=== PATIENT | female | born 1940 | race Caucasian/White ===

== ENCOUNTER → 2016-05-31 | Outpatient (REF) | payer MEDICARE, OTHER ==
[~2016-05-31] MED LIST: ACET-654 PO; ADV100INH INH; ADV500INH INH; ALBU1.25 INH; ALBU17IN INH; ALPH0.156 OU; AMIO20TA PO; ANAS1TAB PO; ASPI1TAB PO; ATROVENT 0.02% INH; ATROVENT NEB INH; BACITAB3 PO; BENA25CA2 PO; BENA25TA4 PO; BIMA01SOL OU; BONI150T PO; BRIM1OPD OU; BUPR15TASR PO; CALCTAB68 PO; CEFT500T3 PO; CELE40TA PO; CIPR250T3 PO; COMB0.2S OU; CORTCRE6 TOP; COUM1TAB17 PO; DILT120C PO; DOXY100C PO; DOXY100T PO; DRIS50002 PO; DULC10SU2 PR; ECOT325T3 PO; FLAG500T PO; FLEEENE4 PR; FLON1SPR; FURO40TA2 PO; HYDR12CA PO; HYDR5OI TOP; INSUH10VL SC; IPRASOL4 INH; JANU100T PO; LASI40TA PO; LEVA250T PO; LEVA500T PO; LISI-542 PO; MAGN400T5 PO; METF500T PO; METO-207 PO; METO100T PO; METO50TA2 PO; MICR10CA PO; MICR12.5 PO; MILKSUS PO; MULTLIQ7 PO; MYCOSTATIN SS; NAPR500T2 PO; NEXI40CA PO; NYST10PW TOP; NYST50SS SSP; OYST500T50 PO; PANT40TA2 PO; PERCOCET PO; PHEN200T22 PO; POTA10CA PO; PRED10TA PO; PRED20TA PO; PRED5TA PO; PROT1TAB2 PO; PROTPAK PO; SPIR1CAP IN; TIMO0.5S4 OU; TIOT18INH INH; TYLE325T5 PO; VENTOLIN NEB INH; WARF-23 PO; XARE15TA PO; XARE20TA PO; ZANTTAB PO; [UNRECOGNIZED DRUG - CODE] OU; [UNRECOGNIZED DRUG - OTHER] OU
[2016-05-31 12:51] LABS: ALBUMIN 3.2 GM/DL (3.2-5.2); ALBUMIN/GLOBULIN RATIO 1.45 (1.00-1.93); BILIRUBIN,TOTAL 0.4 MG/DL (0.2-1.0); CALCIUM LEVEL 9.4 MG/DL (8.8-10.2); CREATININE FOR GFR 1.34 MG/DL (0.55-1.02); GLOMERULAR FILTRATION RATE 41.2 (>39); POTASSIUM SERUM 4.2 MEQ/L (3.5-5.1); TOTAL PROTEIN 5.4 GM/DL (6.4-8.2)
== END ==
LOC: M LABDRAW1 12:01
PROVIDERS: ATTEND Emergency Medicine
DX: E11.9 Type 2 diabetes mellitus without complications (principal); I10 Essential (primary) hypertension; E55.9 Vitamin D deficiency, unspecified

== ENCOUNTER 2016-07-10 10:46 | Emergency (ER) | payer MEDICARE, OTHER ==
[~2016-07-10] VITALS: Ht 152.4 cm; Wt 116.1 kg
--- NOTE | 2016-07-10 11:50 | REP ---
CT HEAD WITHOUT CONTRAST: HISTORY: Trauma. Areas of decreased attenuation are present in the periventricular white matter. This represents small vessel ischemic disease. There is no intraparenchymal hemorrhage, mass, or midline shift. The ventricular system and cortical sulci are dilated consistent with minimal volume loss. There is no extracerebral collection. A 12 mm enostosis is present arising from the inner table of the right frontal bone. There is no fracture. Mucosal thickening is present in the ethmoid and sphenoid sinuses. IMPRESSION: 1. Small vessel ischemic disease. 2. Minimal volume loss. Signed by Luis Pimentel MD 07/10/2016 12:12 P
--- NOTE | 2016-07-10 11:54 | REP ---
Clinical: Trauma. Technique: Frontal view of the chest with multiple views of the left hemithorax. Findings: Frontal view of the chest demonstrates no acute cardiopulmonary process. Multiple views of the left hemithorax demonstrates no obvious acute rib fracture or pathology. Impression: Normal left rib series Signed by Errol Harkins MD 07/10/2016 11:45 A
[2016-07-10 12:31] VITALS: BP 136/77
== END 2016-07-10 12:33 | disposition home or self-care (01) ==
LOC: M ED 11:39
DX: S20.212A Contusion of left front wall of thorax, initial encounter (principal); S80.01XA Contusion of right knee, initial encounter; S00.81XA Abrasion of other part of head, initial encounter; W01.0XXA Fall on same level from slipping, tripping and stumbling without subsequent striking against object, initial encounter; Y92.89 Other specified places as the place of occurrence of the external cause; Y93.01 Activity, walking, marching and hiking; Y99.8 Other external cause status; I10 Essential (primary) hypertension; I48.91 Unspecified atrial fibrillation; Z79.899 Other long term (current) drug therapy; Z79.01 Long term (current) use of anticoagulants; Z79.84 Long term (current) use of oral hypoglycemic drugs; Z79.82 Long term (current) use of aspirin; Z79.51 Long term (current) use of inhaled steroids; Z88.1 Allergy status to other antibiotic agents; Z88.5 Allergy status to narcotic agent; Z88.0 Allergy status to penicillin; Z88.2 Allergy status to sulfonamides; S93.422A Sprain of deltoid ligament of left ankle, initial encounter; S93.602A Unspecified sprain of left foot, initial encounter; M19.072 Primary osteoarthritis, left ankle and foot

== ENCOUNTER → 2016-07-10 | Outpatient (CLI) | payer MEDICARE, OTHER ==
--- NOTE | 2016-07-10 19:49 | REP ---
LEFT FOOT: HISTORY: Pain. COMPARISON: 07/11/2013 There has been previous ORIF, status quo. There are degenerative changes, status quo. The bones are demineralized, status quo. Plantar and retrocalcaneal heel spurs are present, status quo. There is no evidence of an acute fracture. IMPRESSION: Chronic changes. Signed by Guilherme Streeter DO 07/11/2016 03:58 P
--- NOTE | 2016-07-10 19:50 | REP ---
LEFT ANKLE: HISTORY: Pain. COMPARISON: 09/10/2013 There has been previous ankle ORIF, status quo. There are chronic changes seen involving the ankle, status quo. Plantar and retrocalcaneal heel spurs are seen, status quo. There is no evidence of an acute fracture or acute change from the prior exam. IMPRESSION: Stable chronic changes. Signed by Guilherme Streeter DO 07/11/2016 03:58 P
== END ==
LOC: M WUC 18:50
PROVIDERS: ATTEND Physician Assistant
DX: S93.422A Sprain of deltoid ligament of left ankle, initial encounter (principal); S93.602A Unspecified sprain of left foot, initial encounter; M19.072 Primary osteoarthritis, left ankle and foot; X58.XXXA Exposure to other specified factors, initial encounter; Y92.89 Other specified places as the place of occurrence of the external cause; Y93.89 Activity, other specified; Y99.8 Other external cause status

== ENCOUNTER 2016-08-05 00:06 | Emergency (ER) | payer MEDICARE, OTHER ==
[~2016-08-05] VITALS: Ht 154.9 cm; Wt 116.0 kg
[~2016-08-05 00:06] MED LIST changes: -ACET-654 PO; +ACET1TAB17 PO; +AMIO200T PO; -AMIO20TA PO; +BACITAB PO; -BACITAB3 PO; -ECOT325T3 PO; +ECOT325T5 PO; +LEVA1TAB PO; +LEVA1TAB2 PO; -LEVA250T PO; -LEVA500T PO; -METF500T PO; +METF500T13 PO; -METO-207 PO; -METO100T PO; +METO100T5 PO; +METO1TAB7 PO; -METO50TA2 PO; +METO50TA7 PO; -NAPR500T2 PO; +NAPR500T3 PO
[2016-08-05 02:30] VITALS: BP 195/79
[2016-08-05] MEDS ORDERED: DOXY100C37 PO (05:41)
--- NOTE | 2016-08-05 10:03 | REP ---
LEFT ANKLE: Two views of the left ankle are performed. Metallic screws are seen in the distal tibia and there is a metallic plate and multiple metallic screws in the distal fibula. There is no evidence of acute fracture or dislocation. The ankle mortise is anatomic. IMPRESSION: No acute fracture or dislocation. Signed by Ez Campos MD 08/05/2016 08:17 P
--- NOTE | 2016-08-05 10:05 | REP ---
LEFT FOOT: Two views of the left foot are performed. There is no acute fracture or dislocation. Metallic plate and multiple metallic screws are seen bridging the medial cuneiform and base of first metatarsal and there is a metallic screw bridging the base of the second metatarsal and middle cuneiform. There is moderate inferior calcaneal spurring. IMPRESSION: No acute fracture or dislocation. Signed by Ez Campos MD 08/05/2016 08:17 P
== END 2016-08-05 06:00 | disposition home or self-care (01) ==
LOC: EDBD 00:06 → M ED 02:02
DX: S93.402A Sprain of unspecified ligament of left ankle, initial encounter (principal); W19.XXXA Unspecified fall, initial encounter; Y92.009 Unspecified place in unspecified non-institutional (private) residence as the place of occurrence of the external cause; Y93.01 Activity, walking, marching and hiking; Y99.8 Other external cause status; Z91.81 History of falling; N39.0 Urinary tract infection, site not specified; I10 Essential (primary) hypertension; E11.9 Type 2 diabetes mellitus without complications; J44.9 Chronic obstructive pulmonary disease, unspecified; J45.909 Unspecified asthma, uncomplicated; F41.9 Anxiety disorder, unspecified; F32.9 Major depressive disorder, single episode, unspecified; Z86.711 Personal history of pulmonary embolism; Z85.3 Personal history of malignant neoplasm of breast; Z79.899 Other long term (current) drug therapy; Z79.84 Long term (current) use of oral hypoglycemic drugs; Z79.82 Long term (current) use of aspirin; Z88.1 Allergy status to other antibiotic agents; Z88.5 Allergy status to narcotic agent; Z88.0 Allergy status to penicillin; Z88.2 Allergy status to sulfonamides

== ENCOUNTER → 2016-11-20 | Outpatient (CLI) | payer MEDICARE, OTHER ==
[~2016-11-20] MED LIST changes: +DOXY100C37 PO
--- NOTE | 2016-11-20 13:25 | REP ---
PA and lateral chest: Comparisons are 12/08/2015 and 07/10/2016. There is cardiomegaly that appears slightly larger than on the comparison studies. There is diffuse interstitial coarsening that has worsened from the comparison studies. This could represent acute on chronic interstitial change. There are no pleural effusions. The adalid, mediastinum and bony thorax are unchanged. There is an old fracture of the right humeral neck. Impression: Cardiomegaly that has increased from the prior studies. Interstitial coarsening that has increased from the prior studies. These could represent gradually progressive changes or could represent acute on chronic changes. Thoracic scoliosis is again identified. Right humeral fracture is again identified. Signed by Ez Boo MD 11/20/2016 01:17 P
== END ==
LOC: M SMT 12:03
PROVIDERS: ATTEND Internal Medicine Pulmonary Disease
DX: I51.7 Cardiomegaly (principal); M41.24 Other idiopathic scoliosis, thoracic region; J43.1 Panlobular emphysema; Z87.81 Personal history of (healed) traumatic fracture

== ENCOUNTER → 2016-11-27 | Outpatient (CLI) | payer MEDICARE, OTHER ==
[2016-11-27 18:43] LABS: CALCIUM LEVEL 9.3 MG/DL (8.8-10.2); CREATININE FOR GFR 1.41 MG/DL (0.55-1.02); GLOMERULAR FILTRATION RATE 38.8 (>39)
== END ==
LOC: M SMT 15:13
PROVIDERS: ATTEND Internal Medicine Cardiovascular Disease
DX: I48.92 Unspecified atrial flutter (principal); E11.9 Type 2 diabetes mellitus without complications; I10 Essential (primary) hypertension

== ENCOUNTER → 2016-12-31 | Outpatient (CLI) | payer MEDICARE, OTHER ==
[~2016-12-31] MED LIST changes: +ASPI81TA24 PO; +BUPR150T3 PO; +FLUO20CA19 PO; +K-TA1TAB PO; +MAGN400T2 PO; +PROAAER10 INH; +SPIR1CAP INH
[2016-12-31 18:42] LABS: ALBUMIN 3.3 GM/DL (3.2-5.2); ALBUMIN/GLOBULIN RATIO 1.5 (1.00-1.93); BILIRUBIN,TOTAL 0.8 MG/DL (0.2-1.0); CALCIUM LEVEL 9.1 MG/DL (8.8-10.2); CREATININE FOR GFR 1.5 MG/DL (0.55-1.02); POTASSIUM SERUM 4.3 MEQ/L (3.5-5.1); TOTAL PROTEIN 5.5 GM/DL (6.4-8.2)
== END ==
LOC: M SMT 13:03
PROVIDERS: ATTEND Emergency Medicine
DX: E11.9 Type 2 diabetes mellitus without complications (principal); I10 Essential (primary) hypertension

== ENCOUNTER 2017-01-07 17:10 | Inpatient (IN) | payer MEDICARE, OTHER ==
[~2017-01-07] VITALS: Ht 160 cm; Wt 114.0 kg
[~2017-01-07 17:10] MED LIST changes: -ASPI81TA24 PO; -BUPR150T3 PO; -FLUO20CA19 PO; -K-TA1TAB PO; -MAGN400T2 PO; -PROAAER10 INH; -SPIR1CAP INH
[2017-01-07] MEDS ORDERED: IPRATROPIUM 0.5MG/ALBUTEROL 2.5MG INH SOL UD 3ML (DUONEB)(J7620) NEB ONE (18:15)
[2017-01-07] MEDS ORDERED: methylPREDNISolone INJ 125 MG/2 ML VIAL (J2930) IV ONE (18:15)
[2017-01-07 18:34] LABS: BASO % 0.5 % (0.0-1.0); EOS # 0.2 10^3/uL (0.0-0.50); EOS % 2.9 % (0.0-3.0); IMMATURE GRANULOCYTE % 0.5 % (0-0); LYMPH # 0.7 10^3/uL (1.5-4.5); LYMPH % 9.2 % (24.0-44.0); MEAN CORPUSCULAR HEMOGLOBIN 25.3 pg (27.0-33.0); MEAN CORPUSCULAR HGB CONC 29.1 g/dl (32.0-36.5); MEAN CORPUSCULAR VOLUME 86.9 fl (80.0-96.0); MONO # 0.5 10^3/uL (0.0-0.8); MONO % 6.3 % (0.0-5.0); NEUTROPHILS % 80.6 % (36.0-66.0); PLATELET COUNT, AUTOMATED 113 10^3/uL (150-450); RED CELL DISTRIBUTION WIDTH 16.8 % (11.5-14.5); WHITE BLOOD COUNT 7.5 10^3/uL (4.0-10.0)
[2017-01-07 18:49] LABS: ANION GAP 6 MEQ/L (8-16); BLOOD UREA NITROGEN 18 MG/DL (7-18); CARBON DIOXIDE LEVEL 30 MEQ/L (21-32); CHLORIDE LEVEL 106 MEQ/L (98-107); CREATININE FOR GFR 1.15 MG/DL (0.55-1.02); GLUCOSE, FASTING 98 MG/DL (83-110); POTASSIUM SERUM 4.2 MEQ/L (3.5-5.1); SODIUM LEVEL 142 MEQ/L (136-145)
[2017-01-07] MEDS: AMIODARONE 200 MG TAB (PACERONE) PO SCH (21:00)
[2017-01-07] MEDS: buPROPion **XL** TABLET 150MG (WELLBUTRIN XL) PO SCH (21:00)
[2017-01-07] MEDS ORDERED: PILOCARPINE 2% OPHTH 15 ML SOLN OU SCH (21:00)
--- NOTE | 2017-01-07 22:28 | REP ---
Clinical: Shortness of breath. Technique: PA and lateral. Comparison: 11/20/2016. Findings: Indistinct pulmonary vasculature with cephalization, perihilar/lower lobe opacities and small pleural effusions along with cardiomegaly is most compatible with CHF and pulmonary edema. Atelectasis cannot be excluded. No pneumothorax. Skeletal structures are intact. Impression: Moderate pulmonary edema including small pleural effusions. Signed by Errol Harkins MD 01/07/2017 10:19 P
[2017-01-07] MEDS ORDERED: FUROSEMIDE 40 MG/4 ML VIAL (J1940) IV ONE (22:30)
[2017-01-07] MEDS ORDERED: ISOVUE-370 76% 100ML VIAL (Q9967) As Ordered ONE (22:57)
[2017-01-07 22:59] LABS: ABG BASE EXCESS 1.5 (-2.0-2.0); ABG HCO3 26.3 MEQ/L (22.0-26.0); ABG PARTIAL PRESSURE CO2 42.3 mmHg (35.0-45.0); ABG PARTIAL PRESSURE O2 58.7 mmHg (75.0-100.0); ABG STANDARD HCO3 25.6 MEQ/L (22.0-26.0); ABG TOTAL CO2 27.6 MEQ/L (23.0-31.0); ABG pH (ARTERIAL) 7.411 UNITS (7.350-7.450)
--- NOTE | 2017-01-07 23:40 | REPUSA ---
CT angiogram of the chest Clinical statement: Chest pain and shortness of breath. Technique: Multiple axial CT images were obtained from the thoracic inlet through the upper abdomen a fter a bolus administration of nonionic intravenous contrast. Coronal and sagittal reconstructions we re also obtained. No comparison is available. Findings: The pulmonary arteries are well-opacified with contrast, with no intraluminal filling defec ts to suggest embolism. The thoracic aorta is unremarkable. Thyroid gland is within normal limits. Th ere is no thoracic lymphadenopathy. There are small bilateral pleural effusions. There are diffuse bi lateral ground glass infiltrates. Limited imaging of the upper abdomen is unremarkable. There are no suspicious osseous lesions. Impression: 1. No evidence of pulmonary embolism. 2. Small bilateral pleural effusions. Scattered diffuse ground glass infiltrates bilaterally. The fin dings could represent pneumonia or pulmonary edema secondary to congestive heart failure. Follow-up i s recommended as clinically indicated.
[2017-01-07] MEDS ORDERED: NITROGLYCERIN 0.3 MG SUBL TAB SL STA (23:42)
[2017-01-08] MEDS ORDERED: predniSONE 20 MG TAB PO ONE (00:15)
[2017-01-08] MEDS ORDERED: K-TA1TAB PO (01:10)
[2017-01-08] MEDS ORDERED: BUPR150T3 PO (01:10)
[2017-01-08] MEDS ORDERED: SPIR1CAP INH (01:10)
[2017-01-08] MEDS ORDERED: ASPI81TA24 PO (01:10)
[2017-01-08] MEDS ORDERED: PROAAER10 INH (01:10)
[2017-01-08] MEDS ORDERED: FLUO20CA19 PO (01:12)
[2017-01-08] MEDS ORDERED: MAGN400T2 PO (01:12)
[2017-01-08] MEDS: BRIMONIDINE 0.1% OPHTH SOLN 5 ML OU SCH ×2 (01:52→08:36)
[2017-01-08] MEDS: FUROSEMIDE 40 MG/4 ML VIAL (J1940) IV SCH ×5 (04:00→20:00)
[2017-01-08] MEDS: AMIODARONE 200 MG TAB (PACERONE) PO SCH ×2 (08:35→21:43)
[2017-01-08] MEDS: POTASSIUM CHLORIDE 10 MEQ SR TABLET PO SCH (08:36)
[2017-01-08] MEDS: ASPIRIN 81 MG ENTERIC TAB PO SCH (08:36)
[2017-01-08] MEDS: PANTOPRAZOLE 40MG TAB (PROTONIX) PO SCH (08:36)
[2017-01-08] MEDS: MAGNESIUM OXIDE 400 MG TAB (MAG-OX) PO SCH (08:36)
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
[2017-01-08] MEDS: FLUoxetine 20 MG CAP PO SCH (08:49)
[2017-01-08] MEDS ORDERED: ENOXAPARIN 40 MG/0.4 ML SYRINGE (J1650) SC SCH (09:00)
[2017-01-08 09:25] LABS: IMMATURE GRANULOCYTE % 0.7 % (0-0); LYMPH # 0.3 10^3/uL (1.5-4.5); LYMPH % 4.6 % (24.0-44.0); MEAN CORPUSCULAR HEMOGLOBIN 25.9 pg (27.0-33.0); MEAN CORPUSCULAR HGB CONC 29.8 g/dl (32.0-36.5); MEAN CORPUSCULAR VOLUME 86.9 fl (80.0-96.0); MONO # 0.1 10^3/uL (0.0-0.8); MONO % 0.9 % (0.0-5.0); NEUTROPHILS # 6.4 10^3/uL (1.8-7.7); NEUTROPHILS % 93.8 % (36.0-66.0); PLATELET COUNT, AUTOMATED 120 10^3/uL (150-450); RED CELL DISTRIBUTION WIDTH 16.5 % (11.5-14.5); WHITE BLOOD COUNT 6.8 10^3/uL (4.0-10.0)
--- NOTE | 2017-01-08 09:30 | ECGEPIP ---
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
[2017-01-08 09:39] LABS: ALBUMIN/GLOBULIN RATIO 1.07 (1.00-1.93); BILIRUBIN,TOTAL 0.7 MG/DL (0.2-1.0); CALCIUM LEVEL 8.7 MG/DL (8.8-10.2); CREATININE FOR GFR 1.28 MG/DL (0.55-1.02); GLOMERULAR FILTRATION RATE 43.3 (>39); TOTAL PROTEIN 5.8 GM/DL (6.4-8.2)
[2017-01-08] MEDS ORDERED: SLF 3 ML SYR IV PRN (15:00)
[2017-01-08 15:10] VITALS: BP 146/65
[2017-01-08] MEDS ORDERED: GLUCOSE 4 GM CHEW TABLET PO PRN (15:15)
[2017-01-08] MEDS ORDERED: GLUCAGON FOR INJ 1 MG VIAL (J1610) SC PRN (15:15)
[2017-01-08] MEDS ORDERED: DEXTROSE 50% 50 ML SYRINGE IV PRN (15:15)
--- NOTE | 2017-01-08 15:30 | IPNPDOC ---
Text Note Date of Service The patient was seen on 01/08/17. NOTE Subjective: Patient is a 76 year-old female with a PMHx of CHF (ECHO 08/2015; preserved EF, unable to evaluate diastolic function), HTN, Atrial fibrillation ( on Xarelto), Pulmonary HTN, COPD, DM2, Depression / Anxiety, and Vitamin D deficiency who presented to the ER with shortness of breath. Patient was scheduled to have a nuclear stress test in [place]. Upon evaluation , patient was found to be hypoxic on her saturations, and her procedure was canceled. She contacted Dr. Cosby who advised her to come [facility] ER. Upon evaluation in the emergency room, patient was found to have signs of fluid overload and received diuretics. Hospitalist team was contacted for admission. Patient was seen and examined at the bedside. Patient said her breathing is doing better than point arrival in the emergency room. She notes that her lower extremity swelling has had some improvement but not full resolution. She denies any chest pain, palpitations or cough. Denies any fevers or chills. Objective: Vitals (See below) General: Lying in bed, no acute distress, comfortable, AAOx3 HEENT: NC, AT CVS: Bradycardic, Irregular, +S1S2 Lungs: Fair air entry b/l, mild crackles bilaterally Abdomen: Soft, ND, NT, Obese Extremities: 2+ pitting edema bilaterally, - Calf tenderness Assessment and plan: Dyspnea - likely 2/2 Acute decompensated CHF (possibly diastolic); possibly component of acute COPD exacerbation; possibly symptomatic bradycardia - Presented to the ER with complaints of difficulty breathing, was found to be hypoxic as an outpatient - Physical with signs of fluid overload, crackles at bilateral lung bases and lower extremity edema - Elevated BNP on admission - CT chest with IV contrast 01/07: No evidence of pulmonary embolism and examined consistent with congestive heart failure - c/w strict ins and outs, daily weights, head of bed elevation - c/w furosemide 40 IV every 4 hours for a net negative output of 1500 mL - c/w Solu-Medrol 40 mg every 12 hours - c/w inhaled therapy - Will discontinue glaucoma medications given that they may be causing bradycardia - We will continue to monitor on telemetry setting Outpatient cardiac cath - Was unable to be performed because of patient's hypoxia - Denied any chest pain - Troponins 2 sets have been negative - Will follow for 1 additional set Atrial fibrillation - Patient is rate controlled, although slightly bradycardic she remains asymptomatic - Continue with amiodarone - Will restart anticoagulation with Xarelto (re: hemoglobin appears to be stable ) Normocytic anemia - Hg baseline of about 12-11; Hg on admission of 9.7 - Appears to be stable over 12 hours - We'll check for occult blood in stool Thrombocytopenia - No evidence of gross bleeding - Appears to be stable - We'll continue to monitor Acute kidney injury, possibly chronic kidney disease - Will closely monitor urine output - Avoid nephrotoxic medications - Given current clinical setting, will have to continue with diuresis Depression/Anxiety - Continue bupropion and fluoxetine HTN - Currently not on any medications DM2 - Will start insulin sliding scale Vitamin D deficiency - Continue supplementation Glaucoma - Continue home medications GI prophylaxis - c/w Protonix DVT prophylaxis - c/w full anticoagulation with Xarelto VS,Fishbone, I+O VS, Fishbone, I+O Laboratory Tests 01/07/17 17:53 Red Blood Count 3.83 L, Mean Corpuscular Volume 86.9, Mean Corpuscular Hemoglobin 25.3 L, Mean Corpuscular Hemoglobin Concent 29.1 L, Red Cell Distribution Width 16.8 H, Neutrophils (%) (Auto) 80.6 H, Lymphocytes (%) (Auto ) 9.2 L, Monocytes (%) (Auto) 6.3 H, Eosinophils (%) (Auto) 2.9, Basophils (%) ( Auto) 0.5, Neutrophils # (Auto) 6.0, Lymphocytes # (Auto) 0.7 L, Monocytes # ( Auto) 0.5, Eosinophils # (Auto) 0.2, Basophils # (Auto) 0.0, Calcium Level 9.0, Total Creatine Kinase 26 01/08/17 08:40 Calcium Level 8.7 L, Aspartate Amino Transf (AST/SGOT) 8, Alanine Aminotransferase (ALT/SGPT) 14, Alkaline Phosphatase 52, Total Bilirubin 0.7, Total Protein 5.8 L, Albumin 3.0 L 01/08/17 09:07 Red Blood Count 3.67 L, Mean Corpuscular Volume 86.9, Mean Corpuscular Hemoglobin 25.9 L, Mean Corpuscular Hemoglobin Concent 29.8 L, Red Cell Distribution Width 16.5 H, Neutrophils (%) (Auto) 93.8 H, Lymphocytes (%) (Auto ) 4.6 L, Monocytes (%) (Auto) 0.9, Eosinophils (%) (Auto) 0.0, Basophils (%) ( Auto) 0.0, Neutrophils # (Auto) 6.4, Lymphocytes # (Auto) 0.3 L, Monocytes # ( Auto) 0.1, Eosinophils # (Auto) 0.0, Basophils # (Auto) 0.0 Vital Signs Date Time Temp Pulse Resp B/P (MAP) Pulse Ox O2 Delivery O2 Flow Rate FiO2 01/08/17 14:26 97.8 54 18 129/56 (80) 98 Nasal Cannula 1.0 I&O- Last 24 Hours up to 6 AM 01/09/17 06:00 Intake Total 360 ml Output Total 5400 ml Balance -5040 ml ADEN NATARAJAN MD Jan 08, 2017 15:00
[2017-01-08] MEDS: methylPREDNISolone INJ 125 MG/2 ML VIAL (J2930) IV SCH (15:51)
[2017-01-08 16:00] VITALS: BP 110/54
[2017-01-08] MEDS: RIVAROXABAN 15 MG TAB (XARELTO) PO SCH (17:47)
[2017-01-08] MEDS: HumaLOG INSULIN (NovoLOG) PER UNIT SC SCH ×2 (17:47→20:54)
[2017-01-08 20:00] VITALS: BP 96/54
[2017-01-08] MEDS: SLF 3 ML SYR IV SCH (21:43)
[2017-01-08] MEDS: buPROPion **XL** TABLET 150MG (WELLBUTRIN XL) PO SCH (21:43)
[2017-01-08 23:59] VITALS: BP 150/66
[2017-01-09] MEDS: methylPREDNISolone INJ 125 MG/2 ML VIAL (J2930) IV SCH ×2 (03:39→16:06)
[2017-01-09] MEDS: FUROSEMIDE 40 MG/4 ML VIAL (J1940) IV SCH ×2 (03:39)
[2017-01-09 04:00] VITALS: BP 149/80
[2017-01-09 05:48] LABS: IMMATURE GRANULOCYTE % 0.6 % (0-0); LYMPH # 0.4 10^3/uL (1.5-4.5); LYMPH % 3.5 % (24.0-44.0); MEAN CORPUSCULAR HEMOGLOBIN 25.7 pg (27.0-33.0); MEAN CORPUSCULAR HGB CONC 29.9 g/dl (32.0-36.5); MONO # 0.3 10^3/uL (0.0-0.8); MONO % 2.7 % (0.0-5.0); NEUTROPHILS # 11.1 10^3/uL (1.8-7.7); NEUTROPHILS % 93.2 % (36.0-66.0); PLATELET COUNT, AUTOMATED 138 10^3/uL (150-450); RED CELL DISTRIBUTION WIDTH 16.5 % (11.5-14.5)
[2017-01-09 05:55] LABS: ALBUMIN 3.1 GM/DL (3.2-5.2); ALBUMIN/GLOBULIN RATIO 1.15 (1.00-1.93); BILIRUBIN,TOTAL 0.7 MG/DL (0.2-1.0); CALCIUM LEVEL 8.9 MG/DL (8.8-10.2); CREATININE FOR GFR 1.5 MG/DL (0.55-1.02); MAGNESIUM LEVEL 2.1 MG/DL (1.8-2.4); TOTAL PROTEIN 5.8 GM/DL (6.4-8.2)
[2017-01-09] MEDS: SLF 3 ML SYR IV SCH ×3 (05:55→21:34)
[2017-01-09] MEDS: MAGNESIUM OXIDE 400 MG TAB (MAG-OX) PO SCH (07:44)
[2017-01-09] MEDS: PANTOPRAZOLE 40MG TAB (PROTONIX) PO SCH (07:45)
[2017-01-09] MEDS: POTASSIUM CHLORIDE 10 MEQ SR TABLET PO SCH (07:45)
[2017-01-09] MEDS: ASPIRIN 81 MG ENTERIC TAB PO SCH (07:46)
[2017-01-09] MEDS: FLUoxetine 20 MG CAP PO SCH (07:46)
[2017-01-09] MEDS: HumaLOG INSULIN (NovoLOG) PER UNIT SC SCH ×4 (07:47→21:00)
[2017-01-09] MEDS: AMIODARONE 200 MG TAB (PACERONE) PO SCH (07:47)
[2017-01-09 08:00] VITALS: BP 130/63
[2017-01-09] MEDS ORDERED: RIVAROXABAN 20 MG TAB (XARELTO) PO SCH (09:00)
--- NOTE | 2017-01-09 10:29 | ECHO ---
DATE OF PROCEDURE: 01/08/2017 DATE OF : 1940 AGE: 76 REFERRING PROVIDER: Dr. Junior Puentes PATIENT LOCATION: Room 3222 REASON FOR THE ECHOCARDIOGRAM: Congestive heart failure, unspecified. 2D MEASUREMENTS: IVS: 1.0 cm LV: 5.5 cm LVPW: 1.0 cm LA: 4.1 cm Aorta: 3.5 cm IVC: 2.3 cm DOPPLER MEASUREMENTS: Peak velocity across the aortic valve: 1.5 m/s Peak velocity across the LVOT: 1.1 m/s Mitral E: 1.2, Mitral A: 0.77 with a ratio of 1.5 Maximum tricuspid valve velocity: 3.8 m/s Normal left ventricular size, wall thickness and a normal global left ventricular systolic function. The estimated left ventricular systolic ejection fraction is 65-70%. Mildly enlarged left atrium. The right atrium and the right ventricle appear to be mildly enlarged. The right ventricular free wall might be mildly hypokinetic. The atrial septum appeared to be normal without evidence of defect or shunt. Normal aortic root. Trace pericardial effusion noted, no evidence of cardiac tamponade. Mildly calcified aortic valve with normal leaflet excursion. Mildly calcified mitral annulus with normal anterior mitral valve leaflet motion. Normal tricuspid valve The pulmonic valve and proximal pulmonary artery branches were not well visualized. The inferior vena cava was mildly enlarged, central venous pressure might be elevated. DOPPLER: It detects mild mitral regurgitation and mild to moderate tricuspid regurgitation. The calculated pulmonary artery systolic pressure is between 65-75 mmHg. Assessment of the left ventricular diastolic function appeared to be normal. IMPRESSION: 1. Normal global left ventricular systolic function. Left ventricular diastolic function appeared to be normal. 2. Aortic valve sclerosis without stenosis or aortic regurgitation. 3. Mitral annulus calcification with mild mitral regurgitation and mildly enlarged left atrium. 4. Mild to moderate tricuspid regurgitation with severe pulmonary hypertension and dilated right heart chambers. There may be mild right ventricular systolic dysfunction. 5. Trace pericardial effusion, no evidence of cardiac tamponade.
[2017-01-09 12:10] VITALS: BP 131/62
--- NOTE | 2017-01-09 15:13 | IPNPDOC ---
Text Note Date of Service The patient was seen on 01/09/17. NOTE Subjective: Patient is a 76 year-old female with a PMHx of CHF (ECHO 08/2015; preserved EF, unable to evaluate diastolic function), HTN, Atrial fibrillation ( on Xarelto), Pulmonary HTN, COPD, DM2, Depression / Anxiety, and Vitamin D deficiency who presented to the ER with shortness of breath. Patient was scheduled to have a nuclear stress test in [place]. Upon evaluation , patient was found to be hypoxic on her saturations, and her procedure was canceled. She contacted Dr. Cosby who advised her to come [facility] ER. Upon evaluation in the emergency room, patient was found to have signs of fluid overload and received diuretics. Hospitalist team was contacted for admission. Patient was seen and examined at the bedside. Patient has noted improvement in her lower extremity swelling has noted improvement in her breathing with that the apartment. From of the oxygen. She denies any chest pain, palpitations, or cough. Objective: Vitals (See below) General: Lying in bed, no acute distress, comfortable, AAOx3 HEENT: NC, AT CVS: Bradycardic, Irregular, +S1S2 Lungs: Fair air entry b/l, no significant crackles at bilateral lung bases could be appreciated Abdomen: Soft, ND, NT, Obese Extremities: Trace pitting edema bilaterally, - Calf tenderness Assessment and plan: Dyspnea - likely 2/2 Acute decompensated CHF (possibly diastolic); possibly component of acute COPD exacerbation; possibly symptomatic bradycardia - Presented to the ER with complaints of difficulty breathing, was found to be hypoxic as an outpatient - Physical shows that her fluid status appears to be euvolemic; no extremity edema has improved significantly - Elevated BNP on admission - CT chest with IV contrast 01/07: No evidence of pulmonary embolism and examined consistent with congestive heart failure - c/w strict ins and outs, daily weights, head of bed elevation - Discontinue furosemide - c/w Solu-Medrol 40 mg every 12 hours; will plan to start prednisone tomorrow - c/w inhaled therapy - s/p glaucoma medications; however, no improvement in her baseline heart rate has been noted - We will continue to monitor on telemetry setting - Will discuss findings with Dr. Cosby Outpatient cardiac cath - Was unable to be performed because of patient's hypoxia - Denied any chest pain - Troponins 2 sets have been negative Atrial fibrillation - Patient is rate controlled, still remains bradycardic, still remains asymptomatic - c/w rate / rhythm control with amiodarone - c/w anticoagulation with Xarelto (re: hemoglobin appears to be stable) Normocytic anemia - Hg baseline of about 12-11; Hg on admission of 9.7 - Hemoglobin remained stable - Occult blood in stool - pending Thrombocytopenia - No evidence of gross bleeding - Appears to be stable - Will continue to monitor Leukocytosis - likely 2/2 reactive etiology - 2/2 corticosteroids - Review of systems negative - Remains afebrile - Will continue to hold off on antibiotics Acute kidney injury, possibly chronic kidney disease - Elevation in creatinine likely secondary to diuretics - Avoid nephrotoxic medications - Will discontinue furosemide at this time - Continue to monitor renal function Depression/Anxiety - Continue bupropion and fluoxetine HTN - Currently not on any medications DM2 - c/w insulin sliding scale Vitamin D deficiency - Continue supplementation Glaucoma - Continue home medications GI prophylaxis - c/w Protonix DVT prophylaxis - On for anticoagulation with Xarelto VS,Fishbone, I+O VS, Fishbone, I+O Laboratory Tests 01/09/17 05:30 Red Blood Count 3.50 L, Mean Corpuscular Volume 86.0, Mean Corpuscular Hemoglobin 25.7 L, Mean Corpuscular Hemoglobin Concent 29.9 L, Red Cell Distribution Width 16.5 H, Neutrophils (%) (Auto) 93.2 H, Lymphocytes (%) (Auto ) 3.5 L, Monocytes (%) (Auto) 2.7, Eosinophils (%) (Auto) 0.0, Basophils (%) ( Auto) 0.0, Neutrophils # (Auto) 11.1 H, Lymphocytes # (Auto) 0.4 L, Monocytes # (Auto) 0.3, Eosinophils # (Auto) 0.0, Basophils # (Auto) 0.0, Calcium Level 8.9 , Aspartate Amino Transf (AST/SGOT) 6 L, Alanine Aminotransferase (ALT/SGPT) 13 , Alkaline Phosphatase 55, Total Bilirubin 0.7, Total Protein 5.8 L, Albumin 3.1 L Vital Signs Date Time Temp Pulse Resp B/P (MAP) Pulse Ox O2 Delivery O2 Flow Rate FiO2 01/09/17 12:20 Room Air 01/09/17 12:10 98.6 57 20 131/62 (85 92 01/09/17 04:00 1.0 I&O- Last 24 Hours up to 6 AM 01/10/17 06:00 Intake Total 120 ml Output Total 500 ml Balance -380 ml ADEN NATARAJAN MD Jan 09, 2017 15:13
[2017-01-09 16:00] VITALS: BP 158/68
[2017-01-09] MEDS: RIVAROXABAN 15 MG TAB (XARELTO) PO SCH (17:06)
[2017-01-09 20:15] VITALS: BP 138/63
[2017-01-09] MEDS: buPROPion **XL** TABLET 150MG (WELLBUTRIN XL) PO SCH (21:34)
[2017-01-09 23:45] VITALS: BP 138/63
[2017-01-10 03:40] VITALS: BP 133/61
[2017-01-10] MEDS: methylPREDNISolone INJ 125 MG/2 ML VIAL (J2930) IV SCH (03:46)
[2017-01-10] MEDS: SLF 3 ML SYR IV SCH ×3 (03:50→21:41)
[2017-01-10 05:26] LABS: BASO % 0.1 % (0.0-1.0); IMMATURE GRANULOCYTE % 1.5 % (0-0); LYMPH # 0.7 10^3/uL (1.5-4.5); LYMPH % 4.6 % (24.0-44.0); MEAN CORPUSCULAR HEMOGLOBIN 25.6 pg (27.0-33.0); MEAN CORPUSCULAR HGB CONC 29.9 g/dl (32.0-36.5); MEAN CORPUSCULAR VOLUME 85.6 fl (80.0-96.0); MONO # 0.5 10^3/uL (0.0-0.8); MONO % 2.9 % (0.0-5.0); NEUTROPHILS # 14.5 10^3/uL (1.8-7.7); NEUTROPHILS % 90.9 % (36.0-66.0); PLATELET COUNT, AUTOMATED 175 10^3/uL (150-450); RED CELL DISTRIBUTION WIDTH 16.5 % (11.5-14.5)
[2017-01-10 05:49] LABS: ALBUMIN 3.1 GM/DL (3.2-5.2); ALBUMIN/GLOBULIN RATIO 1.19 (1.00-1.93); BILIRUBIN,TOTAL 0.6 MG/DL (0.2-1.0); CALCIUM LEVEL 8.8 MG/DL (8.8-10.2); CREATININE FOR GFR 1.58 MG/DL (0.55-1.02); GLOMERULAR FILTRATION RATE 33.9 (>39); MAGNESIUM LEVEL 2.1 MG/DL (1.8-2.4); POTASSIUM SERUM 4.1 MEQ/L (3.5-5.1); TOTAL PROTEIN 5.7 GM/DL (6.4-8.2)
--- NOTE | 2017-01-10 05:55 | ECGEPIP ---
Stationary ECG Study [facility] - ED Test Date: 2017-01-07 Pat Name: MYAH DEAL Department: Room: [place] [address] Gender: F Copper Plater: alayna : 1940 Requested By: LARS Chan Order Number: [id number] Reading MD: Doug Julien Measurements Intervals [place] Rate: 57 P: SD: 0 QRS: 58 QRSD: 114 T: 120 QT: 473 QTc: 463 Interpretive Statements SINUS BRADYCARDIA WITH PACs MODERATE INTRAVENTRICULAR CONDUCTION DELAY NONSPECIFIC ST & T-WAVE ABNORMALITY SIMILAR TO PRIOR ON SAME DATE Electronically Signed On 01-10-2017 5:54:50 EST by Doug Julien
[2017-01-10 08:00] VITALS: BP 141/82
[2017-01-10] MEDS: MAGNESIUM OXIDE 400 MG TAB (MAG-OX) PO SCH (08:26)
[2017-01-10] MEDS: POTASSIUM CHLORIDE 10 MEQ SR TABLET PO SCH (08:26)
[2017-01-10] MEDS: HumaLOG INSULIN (NovoLOG) PER UNIT SC SCH ×4 (08:26→21:00)
[2017-01-10] MEDS: AMIODARONE 200 MG TAB (PACERONE) PO SCH (08:26)
[2017-01-10] MEDS: VITAMIN D 50,000 UNITS CAPSULE (ERGOCALCIFEROL 1.25MG) PO SCH (08:27)
[2017-01-10] MEDS: PANTOPRAZOLE 40MG TAB (PROTONIX) PO SCH (08:27)
[2017-01-10] MEDS: ASPIRIN 81 MG ENTERIC TAB PO SCH (08:27)
[2017-01-10] MEDS: FLUoxetine 20 MG CAP PO SCH (08:27)
--- NOTE | 2017-01-10 11:08 | IPNPDOC ---
Text Note Date of Service The patient was seen on 01/10/17. NOTE Subjective: Patient is a 76 year-old female with a PMHx of CHF (ECHO 08/2015; preserved EF, unable to evaluate diastolic function), HTN, Atrial fibrillation ( on Xarelto), Pulmonary HTN, COPD, DM2, Depression / Anxiety, and Vitamin D deficiency who presented to the ER with shortness of breath. Patient was scheduled to have a nuclear stress test in [place]. Upon evaluation , patient was found to be hypoxic on her saturations, and her procedure was canceled. She contacted Dr. Cosby who advised her to come [facility] ER. Upon evaluation in the emergency room, patient was found to have signs of fluid overload and received diuretics. Hospitalist team was contacted for admission. Patient was seen and examined at the bedside. Patient denies any new complaints this morning. Denies any events overnight. Notes that her lower extremity swelling has improved. She is no longer requiring any supplemental oxygen. Still notes that she expenses shortness of breath with exertion. Objective: Vitals (See below) General: Lying in bed, no acute distress, comfortable, AAOx3 HEENT: NC, AT CVS: Bradycardic, Irregular, +S1S2 Lungs: Fair air entry b/l, no crackles noted Abdomen: Soft, ND, NT, Obese Extremities: Trace pitting edema bilaterally, - Calf tenderness Assessment and plan: Dyspnea - likely 2/2 Acute decompensated CHF (possibly diastolic); possibly component of acute COPD exacerbation; possibly symptomatic bradycardia - Initially presented to the ER with signs of fluid overload and requirement for supplemental oxygen, physical shows improvement - Elevated BNP on admission consistent with fluid overload - CT chest with IV contrast 01/07: No evidence of pulmonary embolism and examined consistent with congestive heart failure - c/w strict ins and outs, daily weights, head of bed elevation - Will start prednisone 40 BID today ; s/p c/w Solu-Medrol 40 mg every 12 hours - Will continue to hold furosemide - c/w inhaled therapy Bradycardia - possibly 2/2 medications 2/2 amiodarone - We will continue to monitor on telemetry setting - Amiodarone dose has been reduced - Has been discussed with Dr. Cosby, her primary facetor Outpatient cardiac cath - Was unable to be performed because of patient's hypoxia - Denied any chest pain - Troponins 2 sets have been negative Atrial fibrillation - Patient is rate controlled, still remains bradycardic, still remains asymptomatic - c/w rate / rhythm control with amiodarone (adjusted dose) - c/w anticoagulation with Xarelto Normocytic anemia - Hg baseline of about 12-11; Hg on admission of 9.7 - Hemoglobin remained stable - Occult blood in stool - pending Thrombocytopenia - No evidence of gross bleeding - Appears to be stable - Will continue to monitor Leukocytosis - likely 2/2 reactive etiology - 2/2 corticosteroids - Review of systems negative - Remains afebrile - Will continue to hold off on antibiotics - Will taper corticosteroids Acute kidney injury, possibly chronic kidney disease - Elevation in creatinine likely secondary to diuretics - Avoid nephrotoxic medications - Will continue to hold furosemide - Continue to monitor renal function Depression/Anxiety - Continue bupropion and fluoxetine HTN - Currently not on any medications DM2 - c/w insulin sliding scale Vitamin D deficiency - Continue supplementation Glaucoma - Continue home medications GI prophylaxis - c/w Protonix DVT prophylaxis - On for anticoagulation with Xarelto VS,Fishbone, I+O VS, Fishbone, I+O Laboratory Tests 01/10/17 04:51 Red Blood Count 3.55 L, Mean Corpuscular Volume 85.6, Mean Corpuscular Hemoglobin 25.6 L, Mean Corpuscular Hemoglobin Concent 29.9 L, Red Cell Distribution Width 16.5 H, Neutrophils (%) (Auto) 90.9 H, Lymphocytes (%) (Auto ) 4.6 L, Monocytes (%) (Auto) 2.9, Eosinophils (%) (Auto) 0.0, Basophils (%) ( Auto) 0.1, Neutrophils # (Auto) 14.5 H, Lymphocytes # (Auto) 0.7 L, Monocytes # (Auto) 0.5, Eosinophils # (Auto) 0.0, Basophils # (Auto) 0.0, Calcium Level 8.8 , Aspartate Amino Transf (AST/SGOT) 9, Alanine Aminotransferase (ALT/SGPT) 17, Alkaline Phosphatase 53, Total Bilirubin 0.6, Total Protein 5.7 L, Albumin 3.1 L Vital Signs Date Time Temp Pulse Resp B/P (MAP) Pulse Ox O2 Delivery O2 Flow Rate FiO2 01/10/17 08:26 Room Air 01/10/17 08:00 97.1 54 19 141/82 (101) 93 01/09/17 04:00 1.0 ADEN NATARAJAN MD Jan 10, 2017 11:08
[2017-01-10 12:00] VITALS: BP 151/67
[2017-01-10] MEDS: predniSONE 20 MG TAB PO SCH ×2 (12:53→21:32)
[2017-01-10] MEDS: BRIMONIDINE 0.1% OPHTH SOLN 5 ML OU SCH ×3 (12:54→21:38)
[2017-01-10] MEDS: PILOCARPINE 1% OPHTH SOLN 15 ML OU SCH ×3 (12:54→21:38)
[2017-01-10 16:00] VITALS: BP 145/60
[2017-01-10] MEDS: RIVAROXABAN 15 MG TAB (XARELTO) PO SCH (18:19)
[2017-01-10 20:00] VITALS: BP 150/61
[2017-01-10] MEDS: buPROPion **XL** TABLET 150MG (WELLBUTRIN XL) PO SCH (21:32)
[2017-01-11] VITALS (7 sets, daily range): BP systolic 142–177; BP diastolic 48–75
[2017-01-11 05:25] LABS: BASO % 0.1 % (0.0-1.0); IMMATURE GRANULOCYTE % 2.4 % (0-0); LYMPH # 0.6 10^3/uL (1.5-4.5); LYMPH % 4.3 % (24.0-44.0); MEAN CORPUSCULAR HEMOGLOBIN 25.2 pg (27.0-33.0); MEAN CORPUSCULAR HGB CONC 29.6 g/dl (32.0-36.5); MEAN CORPUSCULAR VOLUME 85.2 fl (80.0-96.0); MONO # 0.3 10^3/uL (0.0-0.8); MONO % 2.2 % (0.0-5.0); NEUTROPHILS # 12.6 10^3/uL (1.8-7.7); PLATELET COUNT, AUTOMATED 184 10^3/uL (150-450); RED CELL DISTRIBUTION WIDTH 16.4 % (11.5-14.5); WHITE BLOOD COUNT 13.9 10^3/uL (4.0-10.0)
[2017-01-11 05:43] LABS: ALBUMIN 3.2 GM/DL (3.2-5.2); ALBUMIN/GLOBULIN RATIO 1.23 (1.00-1.93); BILIRUBIN,TOTAL 0.6 MG/DL (0.2-1.0); CALCIUM LEVEL 8.7 MG/DL (8.8-10.2); CREATININE FOR GFR 1.24 MG/DL (0.55-1.02); GLOMERULAR FILTRATION RATE 44.9 (>39); MAGNESIUM LEVEL 2.2 MG/DL (1.8-2.4); POTASSIUM SERUM 4.2 MEQ/L (3.5-5.1); TOTAL PROTEIN 5.8 GM/DL (6.4-8.2)
[2017-01-11] MEDS: SLF 3 ML SYR IV SCH ×3 (06:00→22:00)
[2017-01-11] MEDS: HumaLOG INSULIN (NovoLOG) PER UNIT SC SCH ×4 (07:30→21:00)
[2017-01-11] MEDS: predniSONE 20 MG TAB PO SCH (08:33)
[2017-01-11] MEDS: POTASSIUM CHLORIDE 10 MEQ SR TABLET PO SCH (08:33)
[2017-01-11] MEDS: PANTOPRAZOLE 40MG TAB (PROTONIX) PO SCH (08:34)
[2017-01-11] MEDS: ASPIRIN 81 MG ENTERIC TAB PO SCH (08:34)
[2017-01-11] MEDS: AMIODARONE 200 MG TAB (PACERONE) PO SCH (08:34)
[2017-01-11] MEDS: MAGNESIUM OXIDE 400 MG TAB (MAG-OX) PO SCH (08:34)
[2017-01-11] MEDS: FLUoxetine 20 MG CAP PO SCH (08:34)
[2017-01-11] MEDS: PILOCARPINE 1% OPHTH SOLN 15 ML OU SCH ×3 (08:34→22:00)
[2017-01-11] MEDS: BRIMONIDINE 0.1% OPHTH SOLN 5 ML OU SCH ×3 (08:34→22:00)
--- NOTE | 2017-01-11 11:14 | IPNPDOC ---
Text Note Date of Service The patient was seen on 01/11/17. NOTE Subjective: Patient is a 76 year-old female with a PMHx of CHF (ECHO 08/2015; preserved EF, unable to evaluate diastolic function), HTN, Atrial fibrillation ( on Xarelto), Pulmonary HTN, COPD, DM2, Depression / Anxiety, and Vitamin D deficiency who presented to the ER with shortness of breath. Patient was scheduled to have a nuclear stress test in [place]. Upon evaluation , patient was found to be hypoxic on her saturations, and her procedure was canceled. She contacted Dr. Cosby who advised her to come [facility] ER. Upon evaluation in the emergency room, patient was found to have signs of fluid overload and received diuretics. Hospitalist team was contacted for admission. Patient was seen and examined at the bedside. She does not report any events overnight. Has been feeling better from the point of arrival. She denies any SOB , palpitations or chest pain currently. Objective: Vitals (See below) General: Lying in bed, no acute distress, comfortable, AAOx3 HEENT: NC, AT CVS: Bradycardic, Irregular, +S1S2 Lungs: Fair air entry b/l, no crackles noted Abdomen: Soft, ND, NT, Obese Extremities: Trace pitting edema bilaterally, - Calf tenderness Assessment and plan: s/p Dyspnea - likely 2/2 Acute decompensated CHF (possibly diastolic); possibly component of acute COPD exacerbation; possibly symptomatic bradycardia - Signs of fluid overload have resolved - Elevated BNP on admission consistent with fluid overload - CT chest with IV contrast 01/07: No evidence of pulmonary embolism and examined consistent with congestive heart failure - c/w strict ins and outs, daily weights, head of bed elevation - c/w prednisone 40 BID - will begin to taper dose tomorrow; s/p Solumedrol - Will continue to hold Furosemide - appears Euvolemic - c/w inhaled therapy Bradycardia - possibly 2/2 medications 2/2 amiodarone - Remains asymptomatic at baseline - c/w telemetry monitoring - c/w Adjust dose of Amiodarone - Has been discussed with Dr. Cosby, her primary manager support services - Will start physical therapy to evaluate for dyspnea with exertion Outpatient cardiac cath - Was unable to be performed because of patient's hypoxia - Denied any chest pain - Troponins 2 sets have been negative Atrial fibrillation - Patient is rate controlled, still remains bradycardic, still remains asymptomatic - c/w rate / rhythm control with amiodarone (adjusted dose) - c/w anticoagulation with Xarelto Normocytic anemia - Hg baseline of about 12-11; Hg on admission of 9.7 - Hemoglobin remained stable - Occult blood in stool - pending Thrombocytopenia - No evidence of gross bleeding - Appears to be stable - Will continue to monitor Leukocytosis - likely 2/2 reactive etiology - 2/2 corticosteroids - Review of systems negative - Remains afebrile - Will continue to hold off on antibiotics - Will taper corticosteroids Acute kidney injury, possibly chronic kidney disease - Elevation in creatinine likely secondary to diuretics - Avoid nephrotoxic medications - Will continue to hold furosemide - Continue to monitor renal function Depression/Anxiety - Continue bupropion and fluoxetine HTN - BP elevated this morning - Will start imdur low dose; and adjust as required DM2 - c/w insulin sliding scale Vitamin D deficiency - c/w supplementation Glaucoma - c/w home medications GI prophylaxis - c/w Protonix DVT prophylaxis - On for anticoagulation with Xarelto VS,Fishbone, I+O VS, Fishbone, I+O Laboratory Tests 01/11/17 04:55 Red Blood Count 3.85 L, Mean Corpuscular Volume 85.2, Mean Corpuscular Hemoglobin 25.2 L, Mean Corpuscular Hemoglobin Concent 29.6 L, Red Cell Distribution Width 16.4 H, Neutrophils (%) (Auto) 91.0 H, Lymphocytes (%) (Auto ) 4.3 L, Monocytes (%) (Auto) 2.2, Eosinophils (%) (Auto) 0.0, Basophils (%) ( Auto) 0.1, Neutrophils # (Auto) 12.6 H, Lymphocytes # (Auto) 0.6 L, Monocytes # (Auto) 0.3, Eosinophils # (Auto) 0.0, Basophils # (Auto) 0.0, Calcium Level 8.7 L, Aspartate Amino Transf (AST/SGOT) 9, Alanine Aminotransferase (ALT/SGPT) 22, Alkaline Phosphatase 46, Total Bilirubin 0.6, Total Protein 5.8 L, Albumin 3.2 Vital Signs Date Time Temp Pulse Resp B/P (MAP) Pulse Ox O2 Delivery O2 Flow Rate FiO2 01/11/17 09:00 160/75 (103) 01/11/17 08:00 Room Air 01/11/17 08:00 96.9 51 20 92 01/09/17 04:00 1.0 I&O- Last 24 Hours up to 6 AM 01/12/17 06:00 Intake Total 240 ml Balance 240 ml ADEN NATARAJAN MD Jan 11, 2017 11:14
[2017-01-11] MEDS: ISOSORBIDE MON. (IMDUR) 30 MG XR TAB PO SCH (12:06)
[2017-01-11] MEDS: RIVAROXABAN 15 MG TAB (XARELTO) PO SCH (17:12)
[2017-01-11] MEDS ORDERED: predniSONE 10 MG TAB PO SCH (21:00)
[2017-01-11] MEDS: buPROPion **XL** TABLET 150MG (WELLBUTRIN XL) PO SCH (21:58)
[2017-01-12] VITALS (7 sets, daily range): BP systolic 121–158; BP diastolic 58–80
[2017-01-12 05:40] LABS: BASO % 0.1 % (0.0-1.0); IMMATURE GRANULOCYTE % 4.5 % (0-0); LYMPH # 0.6 10^3/uL (1.5-4.5); LYMPH % 4.5 % (24.0-44.0); MEAN CORPUSCULAR HEMOGLOBIN 24.8 pg (27.0-33.0); MEAN CORPUSCULAR HGB CONC 29.4 g/dl (32.0-36.5); MEAN CORPUSCULAR VOLUME 84.4 fl (80.0-96.0); MONO # 0.5 10^3/uL (0.0-0.8); MONO % 3.3 % (0.0-5.0); NEUTROPHILS # 12.3 10^3/uL (1.8-7.7); NEUTROPHILS % 87.6 % (36.0-66.0); PLATELET COUNT, AUTOMATED 181 10^3/uL (150-450); RED CELL DISTRIBUTION WIDTH 16.3 % (11.5-14.5); WHITE BLOOD COUNT 14.1 10^3/uL (4.0-10.0)
[2017-01-12 06:00] LABS: CALCIUM LEVEL 8.5 MG/DL (8.8-10.2); CREATININE FOR GFR 1.15 MG/DL (0.55-1.02); POTASSIUM SERUM 4.4 MEQ/L (3.5-5.1)
[2017-01-12] MEDS: SLF 3 ML SYR IV SCH ×3 (06:00→20:56)
[2017-01-12 06:01] LABS: ALBUMIN/GLOBULIN RATIO 1.25 (1.00-1.93); BILIRUBIN,TOTAL 0.5 MG/DL (0.2-1.0); MAGNESIUM LEVEL 2.3 MG/DL (1.8-2.4); TOTAL PROTEIN 5.4 GM/DL (6.4-8.2)
[2017-01-12] MEDS: HumaLOG INSULIN (NovoLOG) PER UNIT SC SCH ×4 (08:49→20:06)
[2017-01-12] MEDS: FLUoxetine 20 MG CAP PO SCH (08:49)
[2017-01-12] MEDS: predniSONE 20 MG TAB PO SCH ×2 (08:49→20:55)
[2017-01-12] MEDS: ISOSORBIDE MON. (IMDUR) 30 MG XR TAB PO SCH (08:50)
[2017-01-12] MEDS: MAGNESIUM OXIDE 400 MG TAB (MAG-OX) PO SCH (08:50)
[2017-01-12] MEDS: AMIODARONE 200 MG TAB (PACERONE) PO SCH (08:50)
[2017-01-12] MEDS: ASPIRIN 81 MG ENTERIC TAB PO SCH (08:50)
[2017-01-12] MEDS: PANTOPRAZOLE 40MG TAB (PROTONIX) PO SCH (08:50)
[2017-01-12] MEDS: POTASSIUM CHLORIDE 10 MEQ SR TABLET PO SCH (08:51)
[2017-01-12] MEDS: BRIMONIDINE 0.1% OPHTH SOLN 5 ML OU SCH ×3 (08:51→20:55)
[2017-01-12] MEDS: PILOCARPINE 1% OPHTH SOLN 15 ML OU SCH ×3 (08:51→20:55)
--- NOTE | 2017-01-12 14:45 | IPNPDOC ---
Text Note Date of Service The patient was seen on 01/12/17. NOTE Subjective: Patient is a 76 year-old female with a PMHx of CHF (ECHO 08/2015; preserved EF, unable to evaluate diastolic function), HTN, Atrial fibrillation ( on Xarelto), Pulmonary HTN, COPD, DM2, Depression / Anxiety, and Vitamin D deficiency who presented to the ER with shortness of breath. Patient was scheduled to have a nuclear stress test in [place]. Upon evaluation , patient was found to be hypoxic on her saturations, and her procedure was canceled. She contacted Dr. Cosby who advised her to come [facility] ER. Upon evaluation in the emergency room, patient was found to have signs of fluid overload and received diuretics. Hospitalist team was contacted for admission. Patient was seen and examined at the bedside. Patient notes that she's feeling better and her breathing has improved significantly. She denies any lower extremity swelling. She denies any cough or chest pain Objective: Vitals (See below) General: Lying in bed, no acute distress, comfortable, AAOx3 HEENT: NC, AT CVS: Bradycardic, Irregular, +S1S2 Lungs: Fair air entry b/l, no crackles noted Abdomen: Soft, ND, NT, Obese Extremities: Trace pitting edema bilaterally, - Calf tenderness Assessment and plan: s/p Dyspnea - likely 2/2 Acute decompensated CHF (possibly diastolic); possibly component of acute COPD exacerbation; possibly symptomatic bradycardia - Signs of fluid overload have resolved - Elevated BNP on admission consistent with fluid overload - CT chest with IV contrast 01/07: No evidence of pulmonary embolism and examined consistent with congestive heart failure - c/w strict ins and outs, daily weights, head of bed elevation - c/w Prednisone - will again taper today; s/p Solumedrol - Will restart furosemide at 60 mg IV BID - c/w inhaled therapy Bradycardia - possibly 2/2 medications 2/2 amiodarone - Remains asymptomatic at baseline - c/w telemetry monitoring - c/w Adjust dose of Amiodarone - Has been discussed with Dr. Cosby, her primary radiology technologist - c/w physical therapy for home safety evaluation Outpatient cardiac cath - Was unable to be performed because of patient's hypoxia - Denied any chest pain - Troponins 2 sets have been negative Atrial fibrillation - Patient is rate controlled, still remains bradycardic, still remains asymptomatic - c/w rate / rhythm control with amiodarone (adjusted dose) - c/w anticoagulation with Xarelto Normocytic anemia - Hg baseline of about 12-11; Hg on admission of 9.7 - Hemoglobin remained stable - Occult blood in stool - pending Thrombocytopenia - No evidence of gross bleeding - Appears to be stable - Will continue to monitor Leukocytosis - likely 2/2 reactive etiology - 2/2 corticosteroids - Review of systems negative - Remains afebrile - Will continue to hold off on antibiotics - Will taper corticosteroids Acute kidney injury, possibly chronic kidney disease - Elevation in creatinine likely secondary to diuretics - Avoid nephrotoxic medications - Creatinine has improved from admission - Will restart furosemide Depression/Anxiety - Continue bupropion and fluoxetine HTN - BP better controlled this morning - c/w imdur low dose; DM2 - c/w insulin sliding scale Vitamin D deficiency - c/w supplementation Glaucoma - c/w home medications GI prophylaxis - c/w Protonix DVT prophylaxis - On for anticoagulation with Xarelto VS,Fishbone, I+O VS, Fishbone, I+O Laboratory Tests 01/12/17 05:09 Red Blood Count 3.79 L, Mean Corpuscular Volume 84.4, Mean Corpuscular Hemoglobin 24.8 L, Mean Corpuscular Hemoglobin Concent 29.4 L, Red Cell Distribution Width 16.3 H, Neutrophils (%) (Auto) 87.6 H, Lymphocytes (%) (Auto ) 4.5 L, Monocytes (%) (Auto) 3.3, Eosinophils (%) (Auto) 0.0, Basophils (%) ( Auto) 0.1, Neutrophils # (Auto) 12.3 H, Lymphocytes # (Auto) 0.6 L, Monocytes # (Auto) 0.5, Eosinophils # (Auto) 0.0, Basophils # (Auto) 0.0, Calcium Level 8.5 L, Aspartate Amino Transf (AST/SGOT) 12, Alanine Aminotransferase (ALT/SGPT) 26 , Alkaline Phosphatase 43 L, Total Bilirubin 0.5, Total Protein 5.4 L, Albumin 3.0 L Vital Signs Date Time Temp Pulse Resp B/P (MAP) Pulse Ox O2 Delivery O2 Flow Rate FiO2 01/12/17 12:00 Room Air 01/12/17 12:00 96.8 57 22 155/69 (97) 94 11/23/17 04:00 1.0 I&O- Last 24 Hours up to 6 AM 01/13/17 06:00 Intake Total 240 ml Balance 240 ml ADEN NATARAJAN MD Jan 12, 2017 14:45
[2017-01-12] MEDS: FUROSEMIDE 20 MG TAB PO SCH (17:19)
[2017-01-12] MEDS: RIVAROXABAN 15 MG TAB (XARELTO) PO SCH (17:20)
[2017-01-12] MEDS: buPROPion **XL** TABLET 150MG (WELLBUTRIN XL) PO SCH (20:55)
[2017-01-13 04:00] VITALS: BP 155/66
[2017-01-13 05:34] LABS: BASO % 0.2 % (0.0-1.0); IMMATURE GRANULOCYTE % 3.2 % (0-0); LYMPH # 0.7 10^3/uL (1.5-4.5); LYMPH % 5.3 % (24.0-44.0); MEAN CORPUSCULAR HEMOGLOBIN 25.3 pg (27.0-33.0); MEAN CORPUSCULAR HGB CONC 30.2 g/dl (32.0-36.5); MEAN CORPUSCULAR VOLUME 83.9 fl (80.0-96.0); MONO # 0.5 10^3/uL (0.0-0.8); MONO % 4.3 % (0.0-5.0); NEUTROPHILS # 10.7 10^3/uL (1.8-7.7); PLATELET COUNT, AUTOMATED 163 10^3/uL (150-450); RED CELL DISTRIBUTION WIDTH 16.1 % (11.5-14.5); WHITE BLOOD COUNT 12.3 10^3/uL (4.0-10.0)
[2017-01-13] MEDS: SLF 3 ML SYR IV SCH ×4 (05:34→21:46)
[2017-01-13 05:54] LABS: ALBUMIN/GLOBULIN RATIO 1.3 (1.00-1.93); BILIRUBIN,TOTAL 0.6 MG/DL (0.2-1.0); CALCIUM LEVEL 8.3 MG/DL (8.8-10.2); CREATININE FOR GFR 1.23 MG/DL (0.55-1.02); GLOMERULAR FILTRATION RATE 45.3 (>39); POTASSIUM SERUM 4.2 MEQ/L (3.5-5.1); TOTAL PROTEIN 5.3 GM/DL (6.4-8.2)
[2017-01-13 08:00] VITALS: BP 131/64
[2017-01-13] MEDS: PILOCARPINE 1% OPHTH SOLN 15 ML OU SCH ×3 (08:20→21:44)
[2017-01-13] MEDS: HumaLOG INSULIN (NovoLOG) PER UNIT SC SCH ×4 (08:20→21:00)
[2017-01-13] MEDS: BRIMONIDINE 0.1% OPHTH SOLN 5 ML OU SCH ×3 (08:20→21:44)
[2017-01-13] MEDS: POTASSIUM CHLORIDE 10 MEQ SR TABLET PO SCH (08:21)
[2017-01-13] MEDS: FLUoxetine 20 MG CAP PO SCH (08:21)
[2017-01-13] MEDS: MAGNESIUM OXIDE 400 MG TAB (MAG-OX) PO SCH (08:21)
[2017-01-13] MEDS: ASPIRIN 81 MG ENTERIC TAB PO SCH (08:21)
[2017-01-13] MEDS: FUROSEMIDE 20 MG TAB PO SCH ×2 (08:21→17:30)
[2017-01-13] MEDS: AMIODARONE 200 MG TAB (PACERONE) PO SCH (08:22)
[2017-01-13] MEDS: predniSONE 20 MG TAB PO SCH ×2 (08:22→21:43)
[2017-01-13] MEDS: ISOSORBIDE MON. (IMDUR) 30 MG XR TAB PO SCH (08:22)
[2017-01-13] MEDS: PANTOPRAZOLE 40MG TAB (PROTONIX) PO SCH (08:24)
[2017-01-13 12:00] VITALS: BP 109/71
[2017-01-13 16:00] VITALS: BP 145/60
--- NOTE | 2017-01-13 16:14 | IPNPDOC ---
Text Note Date of Service The patient was seen on 01/13/17. NOTE Subjective: Patient is a 76 year-old female with a PMHx of CHF (ECHO 08/2015; preserved EF, unable to evaluate diastolic function), HTN, Atrial fibrillation ( on Xarelto), Pulmonary HTN, COPD, DM2, Depression / Anxiety, and Vitamin D deficiency who presented to the ER with shortness of breath. Patient was scheduled to have a nuclear stress test in [place]. Upon evaluation , patient was found to be hypoxic on her saturations, and her procedure was canceled. She contacted Dr. Cosby who advised her to come [facility] ER. Upon evaluation in the emergency room, patient was found to have signs of fluid overload and received diuretics. Hospitalist team was contacted for admission. Patient was seen and examined at the bedside. Patient notes that she still experiences SOB with ambulation. She has had worsening SOB while trying to ambulate yesterday. She will work with physical therapy today. She denies any chest pain or palpitations. Objective: Vitals (See below) General: Lying in bed, no acute distress, comfortable, AAOx3 HEENT: NC, AT CVS: Bradycardic, Irregular, +S1S2 Lungs: Fair air entry b/l, no crackles noted Abdomen: Soft, ND, NT, Obese Extremities: 1+ pitting edema bilaterally, - Calf tenderness Assessment and plan: s/p Dyspnea - likely 2/2 Acute decompensated CHF (possibly diastolic); possibly component of acute COPD exacerbation; possibly symptomatic bradycardia - Mild pitting edema bilaterally noted, no crackles - Elevated BNP in ER - CT chest with IV contrast 01/07: No evidence of pulmonary embolism and examined consistent with congestive heart failure - c/w strict ins and outs, daily weights, head of bed elevation - c/w Steroid taper; s/p Solumedrol - c/w Furosemide at 60 mg PO BID - c/w inhaled therapy Bradycardia - possibly 2/2 medications 2/2 amiodarone - Remains asymptomatic at baseline; but experiences shortness of breath with exertion - c/w telemetry monitoring - Will discontinue amiodarone - Dr. Nugent (Cardiology) on consult; appreciate their input Outpatient cardiac cath - Was unable to be performed because of patient's hypoxia - Denied any chest pain - Troponins 2 sets have been negative Atrial fibrillation - Patient is rate controlled, still remains bradycardic, still remains asymptomatic - c/w rate / rhythm control with amiodarone (adjusted dose) - c/w anticoagulation with Xarelto Normocytic anemia - Hg baseline of about 12-11; Hg on admission of 9.7 - Hemoglobin remained stable - Occult blood in stool - pending Thrombocytopenia - No evidence of gross bleeding - Appears to be stable - Will continue to monitor Leukocytosis - likely 2/2 reactive etiology - 2/2 corticosteroids - Review of systems negative; afebrile; - No antibiotics at this time; c/w steroid taper s/p Acute kidney injury, possibly chronic kidney disease - Elevation in creatinine likely secondary to diuretics Depression/Anxiety - Continue bupropion and fluoxetine HTN - BP better controlled this morning - c/w imdur low dose; DM2 - c/w insulin sliding scale Vitamin D deficiency - c/w supplementation Glaucoma - c/w home medications GI prophylaxis - c/w Protonix DVT prophylaxis - On for anticoagulation with Xarelto VS,Fishbone, I+O VS, Fishbone, I+O Laboratory Tests 01/13/17 05:17 Red Blood Count 3.79 L, Mean Corpuscular Volume 83.9, Mean Corpuscular Hemoglobin 25.3 L, Mean Corpuscular Hemoglobin Concent 30.2 L, Red Cell Distribution Width 16.1 H, Neutrophils (%) (Auto) 87.0 H, Lymphocytes (%) (Auto ) 5.3 L, Monocytes (%) (Auto) 4.3, Eosinophils (%) (Auto) 0.0, Basophils (%) ( Auto) 0.2, Neutrophils # (Auto) 10.7 H, Lymphocytes # (Auto) 0.7 L, Monocytes # (Auto) 0.5, Eosinophils # (Auto) 0.0, Basophils # (Auto) 0.0, Calcium Level 8.3 L, Aspartate Amino Transf (AST/SGOT) 8, Alanine Aminotransferase (ALT/SGPT) 22, Alkaline Phosphatase 41 L, Total Bilirubin 0.6, Total Protein 5.3 L, Albumin 3.0 L Vital Signs Date Time Temp Pulse Resp B/P (MAP) Pulse Ox O2 Delivery O2 Flow Rate FiO2 01/13/17 12:00 97.4 46 22 109/71 (84) 94 Room Air 01/09/17 04:00 1.0 I&O- Last 24 Hours up to 6 AM 01/14/17 06:00 Intake Total 720 ml Balance 720 ml ADEN NATARAJAN MD Jan 13, 2017 16:14
[2017-01-13] MEDS: RIVAROXABAN 15 MG TAB (XARELTO) PO SCH (17:30)
[2017-01-13 20:00] VITALS: BP 153/66
[2017-01-13] MEDS: buPROPion **XL** TABLET 150MG (WELLBUTRIN XL) PO SCH (21:43)
[2017-01-13 23:59] VITALS: BP 142/65
[2017-01-14 04:00] VITALS: BP 146/64
[2017-01-14 06:07] LABS: BASO % 0.1 % (0.0-1.0); EOS % 0.1 % (0.0-3.0); IMMATURE GRANULOCYTE % 2.8 % (0-0); LYMPH # 0.7 10^3/uL (1.5-4.5); MEAN CORPUSCULAR HEMOGLOBIN 25.2 pg (27.0-33.0); MEAN CORPUSCULAR HGB CONC 30.4 g/dl (32.0-36.5); MONO # 0.5 10^3/uL (0.0-0.8); MONO % 3.4 % (0.0-5.0); NEUTROPHILS # 11.9 10^3/uL (1.8-7.7); NEUTROPHILS % 88.6 % (36.0-66.0); PLATELET COUNT, AUTOMATED 173 10^3/uL (150-450); RED CELL DISTRIBUTION WIDTH 16.1 % (11.5-14.5); WHITE BLOOD COUNT 13.4 10^3/uL (4.0-10.0)
[2017-01-14 06:28] LABS: ALBUMIN/GLOBULIN RATIO 1.2 (1.00-1.93); BILIRUBIN,TOTAL 0.6 MG/DL (0.2-1.0); CALCIUM LEVEL 8.9 MG/DL (8.8-10.2); CREATININE FOR GFR 1.13 MG/DL (0.55-1.02); MAGNESIUM LEVEL 2.1 MG/DL (1.8-2.4); POTASSIUM SERUM 4.3 MEQ/L (3.5-5.1); TOTAL PROTEIN 5.5 GM/DL (6.4-8.2)
[2017-01-14] MEDS: HumaLOG INSULIN (NovoLOG) PER UNIT SC SCH ×4 (07:46→21:00)
[2017-01-14 08:00] VITALS: BP 135/77
[2017-01-14] MEDS: FUROSEMIDE 20 MG TAB PO SCH ×2 (08:35→17:22)
[2017-01-14] MEDS: ASPIRIN 81 MG ENTERIC TAB PO SCH (08:35)
[2017-01-14] MEDS: POTASSIUM CHLORIDE 10 MEQ SR TABLET PO SCH (08:35)
[2017-01-14] MEDS: PANTOPRAZOLE 40MG TAB (PROTONIX) PO SCH (08:36)
[2017-01-14] MEDS: metOLazone 2.5 MG TAB PO SCH (08:36)
[2017-01-14] MEDS: FLUoxetine 20 MG CAP PO SCH (08:36)
[2017-01-14] MEDS: predniSONE 20 MG TAB PO SCH ×2 (08:36→20:34)
[2017-01-14] MEDS: MAGNESIUM OXIDE 400 MG TAB (MAG-OX) PO SCH (08:37)
[2017-01-14] MEDS: ISOSORBIDE MON. (IMDUR) 30 MG XR TAB PO SCH (08:37)
[2017-01-14] MEDS: PILOCARPINE 1% OPHTH SOLN 15 ML OU SCH ×3 (08:40→20:34)
[2017-01-14] MEDS: BRIMONIDINE 0.1% OPHTH SOLN 5 ML OU SCH ×3 (08:40→20:34)
[2017-01-14 12:00] VITALS: BP 180/70
[2017-01-14 13:15] VITALS: BP 152/72
[2017-01-14 16:00] VITALS: BP 120/80
--- NOTE | 2017-01-14 16:42 | IPN ---
DATE: 01/14/2017 SUBJECTIVE: The patient tells me that she felt shortness of breath and her heart rate was quite slow when she attempted to walk, prompting her to take a rest. Otherwise, she tells me that when she is laying flat the shortness of breath is improving. She denies fevers, chills, chest pain, nausea, vomiting, or diarrhea. OBJECTIVE: VITAL SIGNS: Temperature 96.7, pulse 52, respiratory rate 15, blood pressure 135/77, oxygen saturation 93% on room air. GENERAL: She is a morbidly obese, elderly, female, very pleasant. She sits up to greet me as I enter the room. She does not appear to be in any acute distress. HEENT: Cranial nerves II-XII are grossly intact. No nystagmus. Moist mucous membranes. Difficult to assess for elevation in central venous pressure. CARDIOVASCULAR EXAM: S1, S2, quite regular and bradycardic. RESPIRATORY EXAM: Clear. ABDOMINAL EXAM: Obese. Bowel sounds are present. The abdomen is soft. EXTREMITIES: No clubbing or cyanosis. There is 1+ edema bilaterally. LABORATORY STUDIES: WBC 13.4, hemoglobin 10.4, hematocrit 34.2, platelet count 173. Chemistry panel: Sodium 140, potassium 4.3, chloride 102, bicarbonate 30, BUN 43, creatinine 1.1. No new imaging. ASSESSMENT AND PLAN: This is a 76-year-old female with dyspnea. 1. Dyspnea. Possibly related to symptomatic bradycardia versus decompensated diastolic congestive heart failure versus decompensated chronic obstructive pulmonary disease (COPD). 2. Decompensated diastolic congestive heart failure. The patient is on Lasix 60 mg by mouth twice a day as well as metolazone and she is actively diuresing with a net negative. Dr. Nugent's help is greatly appreciated. Her shortness of breath does appear to be improving at this time and it may be related to this. 3. Decompensated chronic obstructive pulmonary disease (COPD). There is a concern that her shortness of breath may have been related to decompensated chronic obstructive pulmonary disease (COPD). She is on prednisone 20 mg twice a day, today is day #3 of this, we will consider tapering it to 20 mg daily tomorrow. 4. Symptomatic bradycardia. She also had difficulty with activity and this may be an etiology. She is noted to be fairly symptomatic in the 40s and her heart rate does not improve with ambulation. She has just been discontinued from amiodarone, which she has been on for a year. I do have a concern that this may be adverse reaction to amiodarone, however the half-life of amiodarone is quite significant and I do not suspect that this will resolve in the near future, it may take several weeks. I did discuss with Dr. Nugent the potential need for a permanent pacemaker and he did tell me that time will tell. For the time being, we will continue to monitor her closely on telemetry. 5. Coronary artery disease. The patient is on an aspirin. She is not on a statin and cannot tolerate a beta noah. Once again, cardiology's help is greatly appreciated. She has not had chest pain since she has been here. Her cardiac enzymes have been negative. Recommend further outpatient evaluation. 6. Atrial fibrillation. As outlined above, the patient is quite asymptomatic with her bradycardia. Amiodarone has been discontinued. She is anticoagulated with Xarelto. She does not require any rate controlling agents. 7. Anemia. Appears to be fairly stable. Will simply continue to monitor for now. This does not appear to be symptomatic anemia. An occult stool for blood has been ordered as the patient is on Xarelto and aspirin, but there is no evidence of acute or obvious bleeding. 8. Thrombocytopenia, resolved. 9. Leukocytosis, likely reactive secondary to prednisone use. Will continue to monitor as we wean her steroids tomorrow. 10. Acute kidney injury, resolved. 11. Depression and anxiety. Continue with bupropion and fluoxetine. 12. Hypertension, controlled. She is on metolazone, Lasix, Imdur. 13. Type 2 diabetes. She is on sliding scale insulin. 14. Vitamin D deficiency. She is on supplementation. 15. Glaucoma. The patient is continued on Alphagan and pilocarpine. 16. Deep venous thrombosis (DVT) prophylaxis. The patient is therapeutically anticoagulated with Xarelto. DISPOSITION: Pending improvement in clinical symptoms. She continues to work with physical therapy and have cleared that she is safe for discharge at this time.
[2017-01-14] MEDS: RIVAROXABAN 15 MG TAB (XARELTO) PO SCH (17:22)
[2017-01-14] MEDS: buPROPion **XL** TABLET 150MG (WELLBUTRIN XL) PO SCH (20:34)
[2017-01-14 20:40] VITALS: BP 138/64
--- NOTE | 2017-01-14 21:31 | IPN ---
DATE: 01/14/2017 Ms. Sana Stokes was seen this evening. She was sitting in the chair in no acute distress at rest and her sister was at bedside. She stated she feels better today and has been ambulating. She also has been passing more urine. She was started earlier today on metolazone. She is also on furosemide. It seems that after the initial treatment, she had developed some deterioration in her kidney function and the was discontinued and her diet was not that great even in the hospital, she had again retained fluids with increasing weight gain. She has back on her furosemide and, as mentioned above, she is now also on the metolazone. She denies any palpitations, orthopnea. There is no report of fever or chills. PHYSICAL EXAMINATION: The patient is alert and oriented, in no acute distress at rest and her last vital signs are significant for a blood pressure of 120/80 with a pulse of 68, respirations 18, and her maximum temperature was 96.9 degrees Fahrenheit with an oxygen saturation of 95% to 96% on room air. For some reason earlier today at around 12:00 noon, her blood pressure was reported to be 180/70 with a pulse of 94. So far today, she has a negative fluid balance of about 1.8 liters and for the last four days, she has been in a positive fluid balance for up to 4 liters total. Her weight has increased from admission up to 122.6 and today is 119.1 kg. Examination of the head is atraumatic. Neck is supple and I could not appreciate any jugular venous distention (JVD) while sitting up in her bed. The lungs did not reveal any wheezing or crackles. The heart examination revealed normal S1, S2 without gallops. The point of maximal impulse (PMI) is not displaced. There is no rub. I could not appreciate any murmurs. Abdomen is soft and obese. Extremities revealed trace to 1+ bilateral lower leg edema. Neurological examination grossly is negative for focal deficit. LABORATORY DATA: BMP done today revealed a sodium of 140, potassium 4.3, chloride 102, CO2 30, BUN 43, creatinine 1.13, GFR 50, fasting glucose 179, and calcium 8.9. Serum magnesium is 2.1. Liver enzymes revealed a total bilirubin of 0.6, AST 6, ALT 22, alkaline phosphatase 41, total protein 5.5, and albumin 3.0. CBC done today revealed a WBC of 13.4, hemoglobin 10.4, hematocrit 34.2, and platelets 173,000. Telemetry was reviewed and revealed normal sinus rhythm, bradycardic at times. IMPRESSION: Status post decompensated congestive heart failure, secondary to left ventricular diastolic dysfunction, acute on chronic due to noncompliance with diet and medications. I had a long discussion with the patient and also with input from her sister who was in the room. It seemed that eats almost daily in a restaurant and she was not following the advice to cut back on salt and also to try to avoid going to a restaurant at times, it might be difficult but she is willing to try. She will also upon discharge check her weights daily and call the office if her weight goes up overnight by more than 3-4 pounds. I will try to get her involved with cardiac rehabilitation. She will benefit. She also may benefit from the teaching from the cardiac rehabilitation about diet for congestive heart failure. So far, it seems that she does not get it that much and I will continue to discuss that with her. Her medications will be readjusted accordingly and the plan is to discharge her home later this week. We will see how she responds tomorrow with the furosemide and the metolazone. Today, I will increase the isosorbide mononitrate. She is not a candidate for atrioventricular (AV) blocking agent such as beta noah because of relative sinus bradycardia. It seems that amiodarone was discontinued and I will discuss that tomorrow with the hospitalist. She has been doing well on it. We will try to give her the smallest dose possible. She then will be monitored here while on telemetry. There was concern at the beginning that she might need a pacemaker. There is no clear indication at this present time. I do not want to give her any AV blocking agent, I am concerned about paroxysmal atrial fibrillation and that may worsen her heart failure. She is on rivaroxaban/Xarelto for prevention of thromboembolic events. She will continue the same for now. She also has been on prednisone and I tried to get more information about the indication. Maybe we can cut back on it in view of her overall comorbid condition. It was a pleasure to assist in the care of Ms. Sana Stokes for her underlying cardiac condition. I will continue to monitor her along with you. Please do not hesitate to call if any questions.
[2017-01-15] VITALS (7 sets, daily range): BP systolic 107–157; BP diastolic 55–74
[2017-01-15 05:51] LABS: BASO % 0.2 % (0.0-1.0); EOS % 0.1 % (0.0-3.0); IMMATURE GRANULOCYTE % 2.7 % (0-0); LYMPH # 0.9 10^3/uL (1.5-4.5); LYMPH % 5.6 % (24.0-44.0); MEAN CORPUSCULAR HEMOGLOBIN 25.4 pg (27.0-33.0); MEAN CORPUSCULAR HGB CONC 31.1 g/dl (32.0-36.5); MEAN CORPUSCULAR VOLUME 81.9 fl (80.0-96.0); MONO # 0.6 10^3/uL (0.0-0.8); MONO % 3.8 % (0.0-5.0); NEUTROPHILS # 14.2 10^3/uL (1.8-7.7); NEUTROPHILS % 87.6 % (36.0-66.0); PLATELET COUNT, AUTOMATED 206 10^3/uL (150-450); RED CELL DISTRIBUTION WIDTH 16.3 % (11.5-14.5); WHITE BLOOD COUNT 16.2 10^3/uL (4.0-10.0)
[2017-01-15 06:11] LABS: ALBUMIN 3.3 GM/DL (3.2-5.2); ALBUMIN/GLOBULIN RATIO 1.22 (1.00-1.93); BILIRUBIN,TOTAL 0.6 MG/DL (0.2-1.0); CREATININE FOR GFR 1.4 MG/DL (0.55-1.02)
[2017-01-15] MEDS: FLUoxetine 20 MG CAP PO SCH (08:41)
[2017-01-15] MEDS: MAGNESIUM OXIDE 400 MG TAB (MAG-OX) PO SCH (08:41)
[2017-01-15] MEDS: metOLazone 2.5 MG TAB PO SCH (08:41)
[2017-01-15] MEDS: FUROSEMIDE 20 MG TAB PO SCH (08:42)
[2017-01-15] MEDS: predniSONE 20 MG TAB PO SCH (08:43)
[2017-01-15] MEDS: ISOSORBIDE MON. (IMDUR) 60 MG XR TAB PO SCH (08:43)
[2017-01-15] MEDS: PANTOPRAZOLE 40MG TAB (PROTONIX) PO SCH (08:43)
[2017-01-15] MEDS: POTASSIUM CHLORIDE 10 MEQ SR TABLET PO SCH (08:43)
[2017-01-15] MEDS: ASPIRIN 81 MG ENTERIC TAB PO SCH (08:44)
[2017-01-15] MEDS: HumaLOG INSULIN (NovoLOG) PER UNIT SC SCH ×4 (08:44→21:00)
[2017-01-15] MEDS: PILOCARPINE 1% OPHTH SOLN 15 ML OU SCH ×3 (09:00→21:07)
[2017-01-15] MEDS: BRIMONIDINE 0.1% OPHTH SOLN 5 ML OU SCH ×3 (09:00→21:07)
[2017-01-15] MEDS: IPRATROPIUM 0.5MG/ALBUTEROL 2.5MG INH SOL UD 3ML (DUONEB)(J7620) NEB PRN (12:02)
--- NOTE | 2017-01-15 14:41 | REP ---
Clinical: Congestive heart failure. Technique: PA and lateral. Comparison: 01/07/2017. Findings: Stable cardiomegaly and chronic interstitial changes. Mild pulmonary vascular congestion is suggested but considerably improved from prior examination. Specifically, bilateral lower lobe infiltrates and pleural effusions have resolved. No pneumothorax. Skeletal structures stable. Impression: Mild pulmonary vascular congestion. Previously noted pulmonary edematous changes resolved. No consolidations or effusions. Signed by Errol Harkins MD 01/15/2017 02:33 P
--- NOTE | 2017-01-15 15:31 | IPN ---
DATE: 01/15/2017 SUBJECTIVE: The patient tells me that she is feeling better. She tells me that she is less short of breath. She was able to up and ambulate greater than 100 feet. She denies fevers, chills, chest pressure, nausea, vomiting, or diarrhea. OBJECTIVE: VITAL SIGNS: Temperature 96.1, pulse 58, respiratory rate 18, blood pressure 122/58, oxygen saturation 94% on room air. GENERAL: She is a morbidly obese, female sitting up at the edge of her bed. She does not appear to be in any acute distress whatsoever. She speaks in complete sentences. NEUROLOGIC: Cranial nerves II-XII are grossly intact. HEENT: She does have some elevation in her central venous pressure, although it is difficult to asses secondary to her body habitus. CARDIOVASCULAR EXAMINATION: S1, S2, irregularly irregular, mildly bradycardic. RESPIRATORY EXAMINATION: Actually quite clear. ABDOMINAL EXAMINATION: Grossly obese. EXTREMITIES: There is 1+ edema bilaterally but it does appear improved from yesterday. LABORATORY STUDIES: WBC 16.2 up from 13.4, hemoglobin 11.4, hematocrit 36.7, platelet count 206. Chemistry panel: Sodium 138, potassium 4.0, chloride 98, bicarbonate 33, BUN 50, creatinine 1.4 up from 1.3. IMAGING STUDIES: The patient did have a chest x-ray completed today that reveals mild pulmonary vascular congestion, previously noted pulmonary edematous changes have resolved. No consolidations or effusions. ASSESSMENT AND PLAN: This is a 76-year-old female with dyspnea. PROBLEMS: 1. Dyspnea, likely related to decompensated diastolic congestive heart failure. I suspect that with continued diuresis her symptoms will improve. She is on Xarelto, Lasix 60 twice a day. We will monitor her daily weights, her intake and output. A chest x-ray has been repeated today and shows improvement. I have a strong suspicion that this is the etiology for her shortness of breath at the present time. 2. Decompensated chronic obstructive pulmonary disease (COPD). I feel that this is most likely playing a role in her problems. Her prednisone has been tapered down to 20 mg daily. We will continue to titrate it. She is comfortable on room air. 3. Atrial fibrillation. She has a history of being difficult to control in the past and required cardioversion actually. She has been on amiodarone and her rate was quite controlled. She is on Xarelto. However, at the present time, she does appear to be bradycardic. I did speak with Dr. Cosby and he will discuss further to see if she is a candidate for permanent pacemaker placement. For the time being, she is currently on Xarelto. If she requires a pacer, we will discontinue this and do a washout period prior to any pacemaker placement. 4. Coronary artery disease. She is on aspirin, not on a statin and cannot tolerate a beta noah. Once again, cardiology's help is greatly appreciated. Cardiac enzymes have been negative. She has been asymptomatic. 5. Anemia, stable. We will continue to monitor. An occult stool for blood has been ordered as the patient is on Xarelto and aspirin, but there is no evidence of obvious bleeding. 6. Thrombocytopenia, resolved. 7. Leukocytosis, felt to be reactive secondary to prednisone. We are tapering. We will continue to monitor as she is now on a lower dose of prednisone. 8. Acute kidney injury. We will continue to monitor. She is undergoing diuresis. We may have to slow it down based on her renal function tomorrow. 9. Depression and anxiety. Continue with bupropion and fluoxetine. 10. Hypertension. She is on metolazone, Lasix, and Imdur. 11. Type 2 diabetes. She is on sliding scale insulin. 12. Vitamin D deficiency. She is on supplementation. 13. Glaucoma. She is on Alphagan and pilocarpine. 14. Deep venous thrombosis (DVT) prophylaxis. She is on Xarelto. DISPOSITION: Pending clinical improvement. She has been cleared by physical therapy. I have encouraged the nurse to ambulate her.
[2017-01-15] MEDS: RIVAROXABAN 15 MG TAB (XARELTO) PO SCH (17:07)
[2017-01-15 17:36] LABS: CALCIUM LEVEL 9.4 MG/DL (8.8-10.2); CREATININE FOR GFR 1.63 MG/DL (0.55-1.02); GLOMERULAR FILTRATION RATE 32.7 (>39); POTASSIUM SERUM 4.1 MEQ/L (3.5-5.1)
[2017-01-15] MEDS: buPROPion **XL** TABLET 150MG (WELLBUTRIN XL) PO SCH (21:06)
--- NOTE | 2017-01-15 22:02 | IPN ---
DATE: 01/15/2017 Ms. Sana Stokes was seen earlier today and this evening. She was sitting in the chair in no acute distress at rest. Earlier today when I saw her, she stated that she was not feeling good but now she is feeling much better. There are a few members of her family at bedside. Yesterday and today besides her furosemide, she also received metolazone. She had good urinary output, but today she looked dry when I saw her earlier and upon repeating the basic metabolic panel (BMP) this morning showed some deterioration in her kidney function. For this reason, the evening dose and the morning dose for tomorrow morning of the furosemide, as well as the metolazone will be on hold pending BMP report. Otherwise, she is doing fine. She is concerned that she might need a pacemaker. She denies any chest pain or palpitations. She has been ambulating. There is no report of bleeding. She continues to have diet indiscretion. According to the family, she called the kitchen asking for food not compatible with her current diet, which is low salt, low cholesterol and low calorie. PHYSICAL EXAMINATION: The patient is alert and oriented, in no acute distress at rest and very pleasant. Her most recent vital signs this evening reveal a blood pressure of 138/64 with a pulse of 63, respirations 16 and her maximum temperature is 97.2 degrees Fahrenheit with an oxygen saturation of 96 to 99% on room air. Today, her fluid balance is only 270 mL so far. Her weight earlier today was 116 kg and yesterday it was 119.1 kg. Examination of the head is normocephalic, atraumatic. Neck is supple. No jugular venous distention (JVD) or carotid bruits. The lungs did not reveal any wheezing or crackles. The heart examination revealed normal S1, S2 without gallops. The point of maximal impulse (PMI) is not displaced. There is no rub. Abdomen is unremarkable. Extremities revealed only trace bilateral lower leg edema. Neurological examination is negative for focal deficit. LABORATORY DATA: Complete blood count (CBC) done earlier today revealed a WBC of 16.2, hemoglobin 11.4, hematocrit 36.7, and platelets 206,000. Basic metabolic panel (BMP) earlier this morning at 5:40 revealed a sodium of 138, potassium 4.0, chloride 98, CO2 of 33, BUN 50, creatinine 1.4, GFR 39, fasting glucose 175, and calcium 9.2. Serum magnesium is 2.0. Liver enzymes revealed a total bilirubin of 0.6, AST 5, ALT 24, alkaline phosphatase 45, total protein 6.0, and albumin 3.3. Repeat basic metabolic panel (BMP) done about 5:00 p.m. revealed a sodium of 137, potassium 4.1, chloride 94, CO2 of 37, BUN 52, creatinine 1.63, and GFR 32.7, fasting glucose 256 and calcium 9.4. Chest x-ray revealed resolved pulmonary edema. There is only mild pulmonary vascular congestion. No consolidation or effusion. IMPRESSION: Mrs. Sana Stokes is stable out of heart failure but she is now dehydrated. For this reason, I will hold both the furosemide and the metolazone for now and we will monitor closely her BUN and creatinine. She will however continue with her other medications. She is still concerned about implantation of pacemaker, and this will be discussed with Dr. Mane. There is no clear indication at the present time, but she might need one if she becomes tachycardic. It has been difficult in the past to control her atrial flutter and also responding to the amiodarone. It was a pleasure to participate in the care of Mrs. Sana Stokes for her underlying cardiac condition. I will continue to monitor along with you. The case was discussed earlier with her hospitalist.
[2017-01-16 00:47] VITALS: BP 148/66
[2017-01-16 05:02] VITALS: BP 120/70
[2017-01-16 06:25] LABS: CALCIUM LEVEL 9.3 MG/DL (8.8-10.2); CREATININE FOR GFR 1.33 MG/DL (0.55-1.02); GLOMERULAR FILTRATION RATE 41.4 (>39); POTASSIUM SERUM 3.2 MEQ/L (3.5-5.1)
[2017-01-16 07:04] LABS: MEAN CORPUSCULAR HEMOGLOBIN 25.2 pg (27.0-33.0); MEAN CORPUSCULAR HGB CONC 30.7 g/dl (32.0-36.5); MEAN CORPUSCULAR VOLUME 81.9 fl (80.0-96.0); PLATELET COUNT, AUTOMATED 210 10^3/uL (150-450); RED CELL DISTRIBUTION WIDTH 16.4 % (11.5-14.5)
[2017-01-16 08:00] VITALS: BP 106/56
[2017-01-16] MEDS ORDERED: FUROSEMIDE 20 MG TAB PO SCH (09:00)
[2017-01-16] MEDS: HumaLOG INSULIN (NovoLOG) PER UNIT SC SCH ×4 (09:16→20:38)
[2017-01-16] MEDS: POTASSIUM CHLORIDE 10 MEQ SR TABLET PO SCH (09:17)
[2017-01-16] MEDS: ASPIRIN 81 MG ENTERIC TAB PO SCH (09:18)
[2017-01-16] MEDS: PANTOPRAZOLE 40MG TAB (PROTONIX) PO SCH (09:19)
[2017-01-16] MEDS: predniSONE 20 MG TAB PO SCH (09:19)
[2017-01-16] MEDS: FLUoxetine 20 MG CAP PO SCH (09:19)
[2017-01-16] MEDS: ISOSORBIDE MON. (IMDUR) 60 MG XR TAB PO SCH (09:20)
[2017-01-16] MEDS: MAGNESIUM OXIDE 400 MG TAB (MAG-OX) PO SCH (09:20)
[2017-01-16] MEDS: PILOCARPINE 1% OPHTH SOLN 15 ML OU SCH ×3 (09:21→20:39)
[2017-01-16] MEDS: BRIMONIDINE 0.1% OPHTH SOLN 5 ML OU SCH ×3 (09:21→20:39)
[2017-01-16] MEDS ORDERED: POTASSIUM CHLORIDE 10 MEQ SR TABLET PO ONE (09:45)
[2017-01-16] MEDS: metOLazone 2.5 MG TAB PO SCH (10:29)
[2017-01-16 10:34] LABS: MAGNESIUM LEVEL 1.9 MG/DL (1.8-2.4)
[2017-01-16 12:00] VITALS: BP 115/57
--- NOTE | 2017-01-16 14:18 | IPN ---
DATE: 01/16/2017 SUBJECTIVE: The patient tells me that she is feeling better. She tells me that she was able to ambulate laps around the progressive care unit (PCU) three to four times yesterday and she did this whereas previously she would not have been able to complete this level of activity. She was very happy with her progress. She tells me that she still does have some shortness of breath and it is not completely resolved. OBJECTIVE: VITAL SIGNS: Temperature 97.9, pulse 77, respiratory rate 18, blood pressure 106/56, oxygen saturation 95% on room air. GENERAL : She is a very pleasant, morbidly obese, female who sits up to greet me as I enter the room. She does not appear to be in any acute distress. HEENT: Cranial nerves II through XII are grossly intact. She has moist mucous membranes. I do not appreciate elevation in central venous pressure today. CARDIOVASCULAR EXAM: S1, S2 regular. She is not bradycardic. RESPIRATORY EXAM: Quite clear. I do not appreciate any wheeze. ABDOMINAL EXAM: Grossly obese. EXTREMITIES: There is trace edema bilaterally. LABORATORY STUDIES: WBC 26, up from 16, hemoglobin 11.8, hematocrit 38.4, platelet count 210. Chemistry panel: Sodium 137, potassium 3.2 and repleted, chloride 95, bicarbonate 34, BUN 47, down from 52, creatinine 1.3, down from 1.6, magnesium 1.9. The patient did have a chest x-ray yesterday afternoon, which revealed mild pulmonary vascular congestion, previously known pulmonary edematous changes have resolved. No consolidations or effusions. ASSESSMENT AND PLAN: This is a 76-year-old female with dyspnea. 1. Dyspnea, likely related to decompensated diastolic congestive heart failure (CHF). Dr. Cosby's help is greatly appreciated. Her Lasix has been titrated down. We are monitoring her daily weights, input and output, as well as her renal function. Her shortness of breath and exercise tolerance has greatly improved. She has no oxygen requirement at this time. I suspect that given her congestive heart failure, chronic obstructive pulmonary disease (COPD) and morbid obesity, she will likely have some degree of shortness of breath that will persist. 2. COPD. There was initially some concern for potential decompensation. Today is day 2 of 20 mg of prednisone. We will give this to her for an additional day tomorrow and then further taper down. I do not feel that this is playing an acute role in her presentation other than some baseline respiratory disease, which she has. She is continued on DuoNebs. 3. Atrial fibrillation. Given the history of being difficult to control and her heart rate is slowing rising, I suspect amiodarone is out of her system. Dr. Cosby informed that he will discuss with Dr. Mane possible permanent pacemaker placement. She is currently anticoagulated with Xarelto and not requiring any rate controlling agent at this time. However, I would not be surprised if she did not become tachy after amiodarone is metabolized. For coronary artery disease. She is on aspirin and is intolerant to beta noah. We will defer to cardiology regarding statin use. 4. Anemia, stable and chronic. 5. Thrombocytopenia, resolved. 6. Leukocytosis, likely reactive to prednisone. We will continue tapering her steroids tomorrow. We will continue to monitor. 7. Acute kidney injury. We have slowed her diuresis down. She may have been slightly over diuresed yesterday. 8. Depression and anxiety. Continue with bupropion and fluoxetine. 9. Hypertension. She is on adjusted dose of Lasix, Imdur, and Zaroxolyn. 10. Type 2 diabetes. She is on sliding scale insulin. 11. Vitamin D deficiency. She is on supplementation. 12. Glaucoma. She is on her home regimen. 13. Deep vein thrombosis (DVT) prophylaxis. She is on Xarelto. DISPOSITION: Likely home within 24 to [address] pacemaker or not. MTDD
[2017-01-16 16:00] VITALS: BP 107/52
[2017-01-16 18:34] LABS: CALCIUM LEVEL 9.9 MG/DL (8.8-10.2); CREATININE FOR GFR 1.35 MG/DL (0.55-1.02); GLOMERULAR FILTRATION RATE 40.7 (>39); POTASSIUM SERUM 3.9 MEQ/L (3.5-5.1)
[2017-01-16] MEDS: RIVAROXABAN 15 MG TAB (XARELTO) PO SCH (18:36)
[2017-01-16 20:00] VITALS: BP 98/33
[2017-01-16] MEDS: buPROPion **XL** TABLET 150MG (WELLBUTRIN XL) PO SCH (20:39)
[2017-01-17] VITALS (7 sets, daily range): BP systolic 106–160; BP diastolic 55–88
[2017-01-17] MEDS: IPRATROPIUM 0.5MG/ALBUTEROL 2.5MG INH SOL UD 3ML (DUONEB)(J7620) NEB PRN ×3 (00:45→05:39)
[2017-01-17 05:41] LABS: ABG BASE EXCESS 8.6 (-2.0-2.0); ABG HCO3 32.5 MEQ/L (22.0-26.0); ABG PARTIAL PRESSURE O2 105.5 mmHg (75.0-100.0); ABG STANDARD HCO3 32.4 MEQ/L (22.0-26.0); ABG TOTAL CO2 33.8 MEQ/L (23.0-31.0); ABG pH (ARTERIAL) 7.507 UNITS (7.350-7.450)
[2017-01-17 07:31] LABS: MEAN CORPUSCULAR HEMOGLOBIN 25.1 pg (27.0-33.0); MEAN CORPUSCULAR HGB CONC 31.1 g/dl (32.0-36.5); MEAN CORPUSCULAR VOLUME 80.9 fl (80.0-96.0); PLATELET COUNT, AUTOMATED 179 10^3/uL (150-450); RED CELL DISTRIBUTION WIDTH 16.4 % (11.5-14.5); WHITE BLOOD COUNT 21.1 10^3/uL (4.0-10.0)
[2017-01-17 07:56] LABS: CALCIUM LEVEL 9.3 MG/DL (8.8-10.2); CREATININE FOR GFR 1.31 MG/DL (0.55-1.02); GLOMERULAR FILTRATION RATE 42.1 (>39); MAGNESIUM LEVEL 1.8 MG/DL (1.8-2.4)
--- NOTE | 2017-01-17 08:14 | REP ---
Clinical: Shortness of breath. Comparison: 01/15/2017. Findings: Stable cardiomegaly. Portable technique and underpenetration accentuate the pulmonary vasculature and interstitium and pulmonary vascular congestion with interstitial edema cannot be excluded. Small layering effusion cannot be excluded. No pneumothorax. Skeletal structures demonstrate age-related osteopenia and degenerative change. Impression: Cannot exclude pulmonary vascular congestion/interstitial edema or small layering effusion. Signed by Errol Harkins MD 01/17/2017 08:06 A
[2017-01-17] MEDS: BRIMONIDINE 0.1% OPHTH SOLN 5 ML OU SCH ×3 (08:30→21:26)
[2017-01-17] MEDS: PILOCARPINE 1% OPHTH SOLN 15 ML OU SCH ×3 (08:30→21:26)
[2017-01-17] MEDS: ASPIRIN 81 MG ENTERIC TAB PO SCH (08:31)
[2017-01-17] MEDS: POTASSIUM CHLORIDE 10 MEQ SR TABLET PO SCH (08:31)
[2017-01-17] MEDS: MAGNESIUM OXIDE 400 MG TAB (MAG-OX) PO SCH (08:32)
[2017-01-17] MEDS: VITAMIN D 50,000 UNITS CAPSULE (ERGOCALCIFEROL 1.25MG) PO SCH (08:32)
[2017-01-17] MEDS: FLUoxetine 20 MG CAP PO SCH (08:33)
[2017-01-17] MEDS: PANTOPRAZOLE 40MG TAB (PROTONIX) PO SCH (08:33)
[2017-01-17] MEDS: ISOSORBIDE MON. (IMDUR) 60 MG XR TAB PO SCH (08:33)
[2017-01-17] MEDS: predniSONE 20 MG TAB PO SCH (08:33)
[2017-01-17] MEDS: HumaLOG INSULIN (NovoLOG) PER UNIT SC SCH ×4 (08:35→21:00)
[2017-01-17] MEDS: IPRATROPIUM 0.5MG/ALBUTEROL 2.5MG INH SOL UD 3ML (DUONEB)(J7620) NEB SCH ×3 (09:00→20:52)
[2017-01-17] MEDS ORDERED: POTASSIUM CHLORIDE 10 MEQ SR TABLET PO ONE (10:00)
[2017-01-17] MEDS ORDERED: MAG SULF 1GM/100ML (MAG RUN) 1 GM in APPROPRIATE DILUENT 1 EA IV ONE (10:00)
[2017-01-17] MEDS: DOXYCYCLINE HYCLATE 100 MG TAB PO SCH ×2 (12:55→21:25)
--- NOTE | 2017-01-17 14:59 | IPN ---
DATE: 01/17/2017 OVERNIGHT EVENTS: The patient was found to have increased cough with sputum production and felt more short of breath. She was started on 2 liters of nasal cannula. ABG and chest x-ray were checked. SUBJECTIVE: This morning the patient tells me that she is actually feeling better now. She says that she feels like she can get up and walk. She denies fevers, chills, nausea, vomiting, or any more shortness of breath at the present time. OBJECTIVE: VITAL SIGNS: Temperature 96.5, pulse 78, respiratory rate 24, blood pressure 113/62, 94% on room air. GENERAL : She is a morbidly obese, elderly, female sleeping peacefully on her left side, but is easily arousable to verbal stimuli. She does not appear to be in any acute distress. HEENT: Cranial nerves II through XII are grossly intact. She has moist mucous membranes. No elevation in central venous pressure today. CARDIOVASCULAR EXAM: S1, S2 regular. RESPIRATORY EXAM: She has some diffuse end expiratory wheeze. ABDOMINAL EXAM: Grossly obese. EXTREMITIES: No clubbing or cyanosis. No edema. LABORATORY STUDIES: WBC 21.1, down from 26, hemoglobin 11.8, platelet count 179. Chemistry panel: Sodium 138, potassium 3.0 and repleted, chloride 95, bicarbonate 35, BUN 48, creatinine 1.3, magnesium 1.8. Arterial blood gas showed a pH of 7.5, PCO2 of 42, PO2 of 105. No new microbiology. IMAGING: The patient had a chest x-ray that could not exclude vascular congestion, interstitial edema, or small layering effusion, but no definite visualized. ASSESSMENT AND PLAN: This is a 76-year-old female with dyspnea. 1. Dyspnea, likely related to decompensated diastolic congestive heart failure (CHF). Dr. Cosby's help is greatly appreciated. Her Lasix has been titrated down. I am actually holding it today. She is hypochloremic. Her BUN has been rising. Her potassium is low. Her magnesium is on the lower end. She has become alkalotic with a rising bicarbonate throughout her stay. We will likely be able to resume diuresis tomorrow. 2. COPD. Since the patient's steroids were weaned, she has developed slightly worsening cough. She has leukocytosis. We will start her on levofloxacin and per her on standing DuoNeb. We will maintain her prednisone at 20 mg daily for the time being. We will wean her to room air and have her ambulate. I suspect that should she remain stable or improve within the next 24 hours she can likely be discharged home tomorrow. 3. Atrial fibrillation. She does have a history of difficult to control atrial fibrillation and was initially bradycardic, but does appear to be improving. I suspect related to amiodarone. There is a plan for potential pacemaker placement via Dr. Mane in the outpatient setting, possibly with followup in his office next week. Followup in Dr. Cosby's office next week as well. She is currently anticoagulated with Xarelto and not requiring any rate-controlling agents. 4. Anemia, stable and chronic. 5. Thrombocytopenia, resolved. 6. Leukocytosis, possibly reactive and possibly related to infectious process as well. We will check a respiratory PCR panel. She has been started on doxycycline. 7. Acute kidney injury. We will hold her Lasix today and continue to monitor renal function. 8. Hypertension. She is on Imdur. We are holding Lasix today and will likely be able to restart it tomorrow at a lower dose. 9. Type 2 diabetes. She is on sliding scale. 10. Depression and anxiety. She is on bupropion and fluoxetine. 11. Vitamin D deficiency. She is on supplementation. 12. Glaucoma. She is on Alphagan and pilocarpine. 13. Deep vein thrombosis (DVT) prophylaxis. She is on Xarelto. DISPOSITION: Possibly home within the next 24 to 48 hours.
[2017-01-17] MEDS: RIVAROXABAN 15 MG TAB (XARELTO) PO SCH (17:02)
[2017-01-17] MEDS: buPROPion **XL** TABLET 150MG (WELLBUTRIN XL) PO SCH (21:25)
[2017-01-18] VITALS: BP 107/52
[2017-01-18] MEDS: IPRATROPIUM 0.5MG/ALBUTEROL 2.5MG INH SOL UD 3ML (DUONEB)(J7620) NEB SCH ×2 (01:19→07:12)
--- NOTE | 2017-01-18 02:09 | IPN ---
DATE OF SERVICE: 01/17/2017 Mrs. Sana Stokes was seen this morning, as well as this evening. She was sitting up in bed in no acute distress at rest. She stated she feels better with less shortness of breath, but she has developed a cough. She was initially admitted with congestive heart failure secondary to left ventricular diastolic dysfunction. She has a history of atrial flutter/fibrillation with probably underlying sick sinus syndrome with marked bradycardia associated with arterioventricular (AV) blocking agent and even with amiodarone. For this reason, during this hospitalization, the amiodarone was discontinued. She has been ambulating. She has developed increased WBC/leukocytosis and that was thought to be related to the prednisone, this is being tapered off. There is no report of bleeding. There is no nausea or vomiting or diarrhea. PHYSICAL EXAMINATION: The patient is alert and oriented, in no acute distress at rest and her last vital signs today reveal a blood pressure of 129/60 with a pulse of 81, respirations 24 and her maximum temperature is 96.9 degrees Fahrenheit with an oxygen saturation of 94-97% on room air. Examination of the head: Atraumatic. Neck is supple. No jugular venous distention (JVD). The lungs were clear bilaterally without any wheezing or crackles. The heart examination revealed irregular heart sounds without gallops. The point of maximal impulse (PMI) is slightly displaced inferiorly and laterally. There is no rub. Abdomen is obese and nontender. Extremities reveal only trace ankle edema. Neurological examination is negative for focal deficit. LABORATORY DATA: CBC done today revealed a WBC of 21,000, hemoglobin 11.8, hematocrit 38.0, and platelets 179,000. BMP revealed a sodium of 138, potassium 3.0, chloride 95, CO2 of 35, BUN 48, creatinine 1.31, GFR 42.1, fasting glucose 141, calcium 9.3, and magnesium 1.8. Respiratory panel was positive for one organism, parainfluenza 4. IMPRESSION: Dyspnea plus decompensated congestive heart failure in this 76-year-old woman with history of paroxysmal atrial fibrillation. Patient has been in normal sinus rhythm. The amiodarone was discontinued because of marked bradycardia. She probably has underlying sick sinus syndrome and the immediate plan upon discharge is to proceed with a permanent pacemaker implantation and this was discussed with Dr. Mane who is willing to perform that for her. After that, she will need further cardiac evaluation such as a stress test and if possible, a cardiac catheterization. This also would be arranged for her as an outpatient. Her medications were reviewed with her hospitalist and will continue current cardiac medications. The metolazone was discontinued and the Lasix/furosemide decreased because of some deterioration in the renal function, but this has improved. She will need some diuretics to go home. If she goes home over the weekend, she will call the office on Friday or Friday for an appointment. I am planning to see her this coming week and she will be referred to see Dr. Mane. This also was discussed with her, as well as the family members present in the room this evening, all her sisters.
[2017-01-18 04:00] VITALS: BP 133/63
[2017-01-18 05:36] LABS: MEAN CORPUSCULAR HGB CONC 30.9 g/dl (32.0-36.5); PLATELET COUNT, AUTOMATED 161 10^3/uL (150-450); RED CELL DISTRIBUTION WIDTH 16.5 % (11.5-14.5); WHITE BLOOD COUNT 15.8 10^3/uL (4.0-10.0)
[2017-01-18 05:52] LABS: CALCIUM LEVEL 9.1 MG/DL (8.8-10.2); CREATININE FOR GFR 1.24 MG/DL (0.55-1.02); GLOMERULAR FILTRATION RATE 44.9 (>39); POTASSIUM SERUM 3.4 MEQ/L (3.5-5.1)
[2017-01-18 08:09] VITALS: BP 136/72
[2017-01-18] MEDS: ISOSORBIDE MON. (IMDUR) 60 MG XR TAB PO SCH (09:00)
[2017-01-18] MEDS: PILOCARPINE 1% OPHTH SOLN 15 ML OU SCH (09:00)
[2017-01-18] MEDS: ASPIRIN 81 MG ENTERIC TAB PO SCH (09:00)
[2017-01-18] MEDS: DOXYCYCLINE HYCLATE 100 MG TAB PO SCH (09:00)
[2017-01-18] MEDS: PANTOPRAZOLE 40MG TAB (PROTONIX) PO SCH (09:00)
[2017-01-18] MEDS: BRIMONIDINE 0.1% OPHTH SOLN 5 ML OU SCH (09:00)
[2017-01-18] MEDS: POTASSIUM CHLORIDE 10 MEQ SR TABLET PO SCH (09:00)
[2017-01-18] MEDS: MAGNESIUM OXIDE 400 MG TAB (MAG-OX) PO SCH (09:00)
[2017-01-18] MEDS: predniSONE 20 MG TAB PO SCH (09:00)
[2017-01-18] MEDS: FLUoxetine 20 MG CAP PO SCH (09:00)
[2017-01-18] MEDS: HumaLOG INSULIN (NovoLOG) PER UNIT SC SCH ×2 (09:14→12:00)
[2017-01-18] MEDS ORDERED: PRED10TA2 PO ×2 (09:37→12:45)
[2017-01-18] MEDS ORDERED: ISOS60TA2 PO ×2 (09:37→12:45)
[2017-01-18] MEDS ORDERED: XARE15TA PO (09:37)
[2017-01-18] MEDS ORDERED: LASI20TA PO (11:29)
--- NOTE | 2017-01-18 22:09 | DSES ---
DATE OF ADMISSION: 01/08/2017 DATE OF DISCHARGE: 01/18/2017 DISCHARGE DIAGNOSIS: Decompensated diastolic congestive heart failure. SECONDARY DIAGNOSES: 1. Parainfluenza infection. 2. Atrial fibrillation. 3. Bradycardia. 4. Anemia. 5. Thrombocytopenia. 6. Leukocytosis. 7. Acute kidney injury. 8. Hypertension. 9. Type 2 diabetes. 10. Depression. 11. Anxiety. 12. Vitamin D deficiency. 13. Glaucoma. HOSPITAL COURSE: The patient is a 76-year-old female who initially presented with shortness of breath. There was initially some concern for decompensated chronic obstructive pulmonary disease (COPD) versus symptomatic bradycardia; however, it feels as though it was more likely related to decompensated diastolic congestive heart failure. She was diuresed. She was seen by Dr. Cosby of cardiology and her symptoms did gradually improve to the point that she returned to her baseline respiratory status. She was seen and cleared by physical therapy. During her stay, she was noted to be significantly bradycardic in the 40s, and as such, her amiodarone was discontinued. There was a discussion about placement for a permanent pacemaker; however, given that she was parainfluenza positive, it was felt it would be best if this was arranged from the outpatient setting through Dr. Mane's office as an elective procedure rather than conducted urgently in the hospital. The patient has also been on anticoagulation with Xarelto, another reason to hold off for the procedure at this time. SUBJECTIVE: This morning the patient tell me that she is feeling better. She would like to go home. She feels as though she is close to her baseline, and has no specific complaints at this time. OBJECTIVE: VITAL SIGNS: Temperature 97.6, pulse 54, respiratory rate 18, blood pressure 136/72, oxygen saturation 95% on room air. GENERAL: She is a morbidly obese elderly female sitting up in bed. She does not appear to be in acute distress. HEENT: Cranial nerves II through XII are grossly intact. There is no elevation in central venous pressure (CVP). CARDIOVASCULAR: S1, S2. Irregularly irregular. She is mildly bradycardic. No distant heart sounds appreciated. RESPIRATORY: Clear. Good air movement. ABDOMEN: Grossly obese. EXTREMITIES: No clubbing, cyanosis or edema. LABORATORY DATA: Today WBC 15.8 down from 21, hemoglobin 11.2, platelet count 151. Chemistry panel: Sodium 137, potassium 3.4, chloride 97, bicarbonate 33, BUN 42, creatinine 1.2. MICROBIOLOGY: Her nasal swab was positive for parainfluenza type four. IMAGING: The patient had a chest x-ray on 01/17, that could not exclude pulmonary vascular congestion. She did have a CT angiography on 01/07, that revealed no evidence of pulmonary embolism (PE), but small bilateral pleural effusions, scattered diffuse ground-glass infiltrates. Could represent pneumonia or pulmonary edema. ASSESSMENT AND PLAN: This is a 76-year-old female who presented with decompensated diastolic congestive heart failure. 1. Decompensated diastolic congestive heart failure: At this time, she is close to euvolemic. She is continued on furosemide at 60 mg daily, titrated down from 80 mg that she presented with. She will followup with Dr. Cosby early next week, and plans to see Dr. Cosby this coming week as well for planned outpatient pacer placement. 2. Chronic obstructive pulmonary disease (COPD): The patient had positive for parainfluenza, likely had some mild decompensation related to this during her stay. She does not require any antibiotics. Her leukocytosis is resolving. She is on tapering dose of prednisone, and she is at her baseline respiratory status. She is continued on albuterol and DuoNeb, as well as Advair and Spiriva. 3. Atrial fibrillation. She has a history of [id number] atrial fibrillation. She has actually had episodes of significant bradycardia and amiodarone has been discontinued. There is plan for pacemaker placement related to her sick sinus syndrome. She will followup with Dr. Cosby and Dr. Mane this coming week. She is anticoagulated with Xarelto. Her dose was titrated based on her renal function during her stay. 4. Anemia chronic, stable. 5. Thrombocytopenia, resolved. 6. Leukocytosis, likely related to steroids, down trending with tapering dose of prednisone. 7. Acute kidney injury, resolved. 8. Hypertension. She is on Imdur, Lasix, and her blood pressure is controlled. 9. Type 2 diabetes. She was on a sliding scale insulin while she was in the hospital. 10. Glaucoma. She was on Alphagan and pilocarpine. 11. Vitamin D deficiency. She is on supplementation. 12. Depression/anxiety. She is continued on bupropion and fluoxetine. DISPOSITION: The patient is being discharged home. She has been cleared by physical therapy. She is at her functional baseline. Plan to sent her medicines home. She is to followup with Dr. Cosby within seven days. Followup with her primary care provider (PCP) within seven days. Activity is as tolerated. Her diet is a 2 gram sodium and 200 mL fluid restricted consistent carbohydrate diet. She is to check her daily weight. If greater than three pound change, call Dr. Cosby's office. She is to return to the emergency room (ER) if symptoms worsen. DISCHARGE MEDICATIONS: - Lasix 60 mg daily - isosorbide mononitrate extended release 50 mg daily - prednisone 10 mg daily for three days - Xarelto 15 mg daily New prescriptions provided as the patient's pharmacy is outside of [facility] and [facility]. - ProAir HFA two puffs every four hours as needed for shortness of breath - albuterol ipratropium inhaler four times a day as needed for shortness of breath - aspirin 81 mg daily - Lumigan one drop each eye at bedtime - famotidine tartrate one drop each eye twice a day - bupropion 150 mg at bedtime - fluoxetine 20 mg daily - magnesium 400 mg daily - pilocarpine one drop each eye daily at bedtime - potassium chloride 20 mEq daily - Advair Diskus 500/50 one puff twice a day - Spiriva inhaled twice a day - vitamin D 50,000 units weekly on Fridays Greater than 30 minutes were spent organizing disposition. [facility]
== END 2017-01-18 14:01 | disposition home or self-care (01) | DRG 291 ==
LOC: M ED 17:10 → M ED INP 01-08 00:11 → M PCU 01-08 14:35
PROVIDERS: ADMIT Internal Medicine; ATTEND Internal Medicine
DX: I13.0 Hypertensive heart and chronic kidney disease with heart failure and stage 1 through stage 4 chronic kidney disease, or unspecified chronic kidney disease (principal); I50.33 Acute on chronic diastolic (congestive) heart failure; J44.1 Chronic obstructive pulmonary disease with (acute) exacerbation; N17.9 Acute kidney failure, unspecified; Z68.42 Body mass index [BMI] 45.0-49.9, adult; E87.3 Alkalosis; I48.0 Paroxysmal atrial fibrillation; E11.9 Type 2 diabetes mellitus without complications; F32.9 Major depressive disorder, single episode, unspecified; I49.5 Sick sinus syndrome; K21.9 Gastro-esophageal reflux disease without esophagitis; E66.01 Morbid (severe) obesity due to excess calories; E55.9 Vitamin D deficiency, unspecified; R00.1 Bradycardia, unspecified; I25.10 Atherosclerotic heart disease of native coronary artery without angina pectoris; F41.9 Anxiety disorder, unspecified; H40.9 Unspecified glaucoma; D69.6 Thrombocytopenia, unspecified; E86.0 Dehydration; I27.20 Pulmonary hypertension, unspecified; N18.9 Chronic kidney disease, unspecified; D64.9 Anemia, unspecified; Z85.3 Personal history of malignant neoplasm of breast; Z79.82 Long term (current) use of aspirin; Z79.899 Other long term (current) drug therapy; Z88.0 Allergy status to penicillin; Z88.1 Allergy status to other antibiotic agents; Z88.5 Allergy status to narcotic agent; Z79.01 Long term (current) use of anticoagulants; Z88.8 Allergy status to other drugs, medicaments and biological substances; Z88.2 Allergy status to sulfonamides; Z90.710 Acquired absence of both cervix and uterus; Z90.2 Acquired absence of lung [part of]; Z90.49 Acquired absence of other specified parts of digestive tract; Z91.11 Patient's noncompliance with dietary regimen; Z91.14 Patient's other noncompliance with medication regimen

== ENCOUNTER → 2017-01-24 | Outpatient (CLI) | payer MEDICARE, OTHER ==
[~2017-01-24] MED LIST changes: +ASPI81TA24 PO; +BUPR150T3 PO; +FLUO20CA19 PO; +ISOS60TA2 PO; +K-TA1TAB PO; +LASI20TA PO; +MAGN400T2 PO; +PRED10TA2 PO; +PROAAER10 INH; +SPIR1CAP INH
[2017-01-24 18:28] LABS: CALCIUM LEVEL 8.6 MG/DL (8.8-10.2); CREATININE FOR GFR 1.26 MG/DL (0.55-1.02); GLOMERULAR FILTRATION RATE 44.1 (>39); POTASSIUM SERUM 4.5 MEQ/L (3.5-5.1)
== END ==
LOC: M SMT 13:48
PROVIDERS: ATTEND Physician Assistant Medical
DX: N17.9 Acute kidney failure, unspecified (principal)

== ENCOUNTER 2017-01-31 12:01 | Day surgery (SDC) | payer MEDICARE, OTHER ==
[~2017-01-31] VITALS: Ht 157.5 cm; Wt 102.9 kg
[2017-01-31] VITALS (7 sets, daily range): BP systolic 110–146; BP diastolic 53–65
[~2017-01-31 12:01] MED LIST changes: +ISOS30TA4 PO; +ISOVUE-300 61% 50ML VIAL (Q9967) As Ordered ONE; +LIDOCAINE 1% SDV INJ 30 ML VIAL As Ordered ONE; +MUPIROCIN 2% OINT 22 GM TUBE As Ordered ONE; +VANCOMYCIN 1000 MG/20 ML VIAL (J3370) As Ordered ONE
[2017-01-31] MEDS ORDERED: NS 250 ML IV ONE (12:30)
[2017-01-31] MEDS ORDERED: LIDOCAINE 1% MDV 20ML VIAL SQ PRN (12:30)
[2017-01-31] MEDS ORDERED: LR 1,000 ML IV ONE (12:30)
[2017-01-31] MEDS ORDERED: VANCOMYCIN HCL 1,000 MG, VIAL MATE ADAPTER 1 EACH in D5W 250 ML IV ONE (12:30)
[2017-01-31] MEDS ORDERED: ISOVUE-300 61% 50ML VIAL (Q9967) As Ordered ONE (12:57)
[2017-01-31] MEDS ORDERED: NEOSPORIN TOP OINT 15GM As Ordered ONE (13:12)
[2017-01-31] MEDS ORDERED: NS 1,000 ML IV SCH (13:45)
[2017-01-31] MEDS ORDERED: LEVALBUTEROL 1.25 MG/0.5 ML CONCENTRATE NEB As Ordered ONE (14:00)
[2017-01-31] MEDS ORDERED: MIDAZOLAM INJ 2 MG/2 ML VIAL (J2250) As Ordered ONE (14:37)
[2017-01-31] MEDS ORDERED: LIDOCAINE 2% INJ 100 MG/5 ML SDV (FOR ANES.) As Ordered ONE (14:37)
[2017-01-31] MEDS ORDERED: PROPOFOL 200 MG/20 ML VIAL As Ordered ONE ×2 (14:37→14:38)
[2017-01-31] MEDS ORDERED: LIDOCAINE 1% SDV INJ 30 ML VIAL As Ordered ONE (14:44)
[2017-01-31] MEDS ORDERED: ONDANSETRON 4MG/2ML VIAL (J2405) IV PRN (17:00)
[2017-01-31] MEDS ORDERED: NORCO, ANEXSIA 5/325MG TABLET (HYDROcodone/ACETAMINOPHEN) PO PRN (17:00)
[2017-01-31] MEDS ORDERED: fentaNYL 100 MCG/2 ML INJECTION (J3010) IV PRN (17:00)
[2017-01-31] MEDS ORDERED: LR 1,000 ML IV SCH (17:00)
--- NOTE | 2017-01-31 17:25 | REP ---
Portable chest, 05:04 p.m., single AP view, patient sitting: Comparison is 01/17/2017. There has been interval placement of a dual chamber pacemaker. There is no pneumothorax or pleural fluid collection. Cardiomegaly and interstitial coarsening, unchanged. Signed by Ez Boo MD 01/31/2017 05:17 P
[2017-01-31] MEDS ORDERED: ALBUTEROL SULFATE 2.5 MG/0.5 ML INH NEB SOLN INH PRN (17:30)
[2017-01-31] MEDS ORDERED: ALBUTEROL 6.7GM INHALER **FOR ANES. CART/OMNICELL ONLY INH PRN (17:30)
--- NOTE | 2017-01-31 17:42 | REP ---
C-ARM VIEWS CHEST: Two C-Arm views of the chest are performed during placement of a dual lead pacemaker. 6 minutes 6 seconds fluoroscopy time utilized. Atrial and ventricular leads appear to be in good position. Signed by Ez Campos MD 02/03/2017 05:52 P
[2017-01-31] MEDS: ADVAIR HFA 230/21MCG INHALER INH SCH (19:43)
[2017-01-31] MEDS ORDERED: buPROPion **XL** TABLET 150MG (WELLBUTRIN XL) PO SCH (21:00)
[2017-01-31] MEDS ORDERED: LATANOPROST 0.005% OPHTH SOLN 2.5 ML OU SCH (21:00)
[2017-01-31] MEDS: ASCORBIC ACID 250 MG TAB PO SCH (21:33)
[2017-01-31] MEDS: ACETAMINOPHEN TAB 650MG DOSE (2X325MG) PO PRN (21:43)
[2017-02-01] VITALS: BP 108/55
[2017-02-01] MEDS: ACETAMINOPHEN TAB 650MG DOSE (2X325MG) PO PRN (03:20)
[2017-02-01 04:00] VITALS: BP 128/52
--- NOTE | 2017-02-01 07:25 | RO ---
DATE OF PROCEDURE: 01/31/2017 PREPROCEDURE DIAGNOSIS: Sick sinus syndrome/tachycardia-bradycardia syndrome. POSTPROCEDURE DIAGNOSIS: Sick sinus syndrome/tachycardia-bradycardia syndrome. FINDINGS: Sick sinus syndrome/tachycardia-bradycardia syndrome. PROCEDURE: Implantation of a dual-chamber Medtronic pacemaker system. SURGEON: Km Mane MD WARP STARTER: None. ANESTHESIA: Lidocaine 1% local/monitored anesthetic care. No specimens. Estimated blood loss: Less than 15 mL. No blood products replaced. No drains. No complications. DESCRIPTION OF PROCEDURE: The patient was prepped and draped over the left pectoral region. 3M Ioban film was applied. Lidocaine 1% was used for local anesthetic. A left subclavian venogram was performed using a mixture consisting of three parts Isovue contrast mixed with one part normal saline of which a total volume of 15 mL was injected via a peripheral vein in the left upper extremity. This venogram was used to enter into the left subclavian vein in real time with the help of fluoroscopy using a micropuncture needle by percutaneous technique. The extrathoracic portion of the subclavian vein was successfully entered and then this was guidewire exchanged for a guidewire that came with the #7-Indonesian sheath. Next, an incision approximately 2-1/2 to 3 inches in length was made 1 cm below the skin entry site of the guidewire using a PEAK PlasmaBlade. The PEAK PlasmaBlade was then used to get through the fatty layer and the fibrous Marisol's fascia. The pacemaker pocket was then formed in a caudal direction using blunt dissection using two fingers to separate the Marisol's fascia from the prepectoral fascia. Next, the guidewire was pulled through the skin into the incision site. Next, I used another micropuncture needle to obtain a separate venous access at the level of the pectoral muscle just a bit more lateral to the first guidewire using the first guidewire as a fluoroscopic guide, and this was then guidewire exchanged for the guidewire that came with the other #7-Indonesian sheath. A #7-Indonesian sheath with introducer was placed over the more lateral guidewire and was used for vein access for the ventricle lead. The ventricle lead was placed under fluoroscopy guidance into the right ventricle apex position where it was secured with a total of eight turns. This position was found to be electrically and anatomically satisfactory and no diaphragm stimulation could be palpated on either side at high voltage output pacing. Next, the sheath was removed, and the ventricular lead was secured to the pectoral muscle using two individual sutures consisting of #0 Ethibond to secure it to the tie-down sleeve. Next, the other #7-Indonesian sheath was placed over the more medial of the guidewires for vein access for the right atrial lead. The right atrial lead was placed into the right atrial appendage position with the assistance of a preformed J-stylet. It was secured with a total of ten turns. This position was found to be electrically and anatomically satisfactory and no diaphragm stimulation could be palpated on either side with high output pacing. The #7-Indonesian sheath was removed, and the atrial lead was secured to the pectoral muscle using the supplied tie-down sleeve using two individual sutures consisting of #0 Ethibond. Another #0 Ethibond suture was then placed in the floor of the pectoral muscle pocket so as to provide a tie-down for the pacemaker pulse generator. I then took a medium size TYRX absorbable antibacterial envelope and cut it into six pieces, which were placed into the pacemaker pocket floor. Next, the terminal pins of the atrial and ventricular leads were plugged into their respective ports of the pacemaker pulse generator and secured by tightening the set screws with the hex screw semi driver. The excess lead material was then placed below the pacemaker pulse generator and placed along with the pacemaker pulse generator into the pacemaker pocket. The pacemaker was secured with the previously placed #0 Ethibond suture. The deep layer was closed using individual sutures consisting of #2-0 Vicryl. The more superficial layer was closed using individual sutures consisting of some #2-0 Vicryl sutures and some #3-0 Vicryl sutures. The skin was then closed with a continuous stitch consisting of subcuticular stitching consisting of #4-0 Biosyn. The free ends of the Biosyn suture were pulled through the skin at both ends and snipped at the level of the skin. Next, two layers of Dermabond was applied and allowed to dry. Next, Mastisol was then placed above and below the incision site and then Steri-Strips were applied. The patient tolerated the procedure well without any immediate complications. The pacemaker pulse generator implanted was a Verimatrix model A2DR01 Stiven TOBIAS with serial #[id number]. The atrial lead implanted was a Medtronic model 4076-45 cm with serial #[id number]. Testing of the right atrial lead in bipolar configuration showed a capture threshold of 1.3 volts at 0.5 ms with lead impedance of 581 ohms and P wave of 4.2 millivolts and slew rate of 1.0 volts per second. The ventricular lead implanted was a Medtronic model 4076-52 cm with serial #[id number]. Final testing of the right ventricle lead in bipolar configuration showed a capture threshold of 0.4 volts at 0.4 ms with lead impedance of 694 ohms and R wave amplitude of 8.1 mV and slew rate of 3.2 volts per second. The medium size TYRX antimicrobial envelope placed had reference number [id number] with lot #[id number]. Copy To: Dr. Km Gomez Harjeet Dr. Lance Li
[2017-02-01 08:00] VITALS: BP 113/73
[2017-02-01] MEDS ORDERED: TIOTROPIUM INHALER/CAPSULE (SPIRIVA) INH SCH (08:00)
[2017-02-01] MEDS: ADVAIR HFA 230/21MCG INHALER INH SCH (08:01)
--- NOTE | 2017-02-01 08:13 | REP ---
PA and lateral chest: Comparison is the portable chest dated 01/31/2017. There is no pneumothorax or pleural fluid collection. Cardiomegaly and dual chamber pacemaker are again identified, unchanged. The interstitial coarsening has improved. Signed by Ez Boo MD 02/01/2017 08:05 A
[2017-02-01] MEDS: ASCORBIC ACID 250 MG TAB PO SCH (08:27)
[2017-02-01 08:28] VITALS: BP 113/73
[2017-02-01] MEDS ORDERED: FUROSEMIDE 20 MG TAB PO SCH (09:00)
[2017-02-01] MEDS ORDERED: FLUoxetine 20 MG CAP PO SCH (09:00)
[2017-02-01] MEDS ORDERED: POTASSIUM CHLORIDE 10 MEQ SR TABLET PO SCH (09:00)
[2017-02-01] MEDS ORDERED: ISOSORBIDE MON. (IMDUR) 60 MG XR TAB PO SCH (09:00)
[2017-02-01] MEDS ORDERED: ASPIRIN 81 MG ENTERIC TAB PO SCH (09:00)
[2017-02-01 12:00] VITALS: BP 120/60
--- NOTE | 2017-02-01 21:11 | ECGEPIP ---
Stationary ECG Study 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 Electronically Signed On 02-01-2017 21:11:45 EST by Km Mane
[2017-02-02] MEDS ORDERED: RIVAROXABAN 15 MG TAB (XARELTO) PO SCH (18:00)
[2017-02-07] MEDS ORDERED: VITAMIN D 50,000 UNITS CAPSULE (ERGOCALCIFEROL 1.25MG) PO SCH (09:00)
== END 2017-02-01 12:18 | disposition home or self-care (01) ==
LOC: M SDC 12:01 → M PCU 17:30 → M SDC 02-01 12:18
PROVIDERS: ATTEND Internal Medicine Cardiovascular Disease
DX: I49.5 Sick sinus syndrome (principal); I48.3 Typical atrial flutter; I50.32 Chronic diastolic (congestive) heart failure; J44.9 Chronic obstructive pulmonary disease, unspecified; I11.0 Hypertensive heart disease with heart failure; E11.9 Type 2 diabetes mellitus without complications; E66.01 Morbid (severe) obesity due to excess calories; I95.2 Hypotension due to drugs; R07.9 Chest pain, unspecified; R29.898 Other symptoms and signs involving the musculoskeletal system; M17.0 Bilateral primary osteoarthritis of knee; M81.0 Age-related osteoporosis without current pathological fracture; F41.9 Anxiety disorder, unspecified; F32.9 Major depressive disorder, single episode, unspecified; J45.909 Unspecified asthma, uncomplicated; Z88.0 Allergy status to penicillin; Z88.5 Allergy status to narcotic agent; Z79.899 Other long term (current) drug therapy; Z79.82 Long term (current) use of aspirin; Z79.01 Long term (current) use of anticoagulants; Z85.3 Personal history of malignant neoplasm of breast; Z86.718 Personal history of other venous thrombosis and embolism; Z90.710 Acquired absence of both cervix and uterus; Z87.81 Personal history of (healed) traumatic fracture; Z92.3 Personal history of irradiation; Z87.891 Personal history of nicotine dependence
CPT/HCPCS: 33208; 71010; 71020; 76000; 93005; 94640; 96374; C1721; C1769; C1882; C1898; J2250; J3370; Q9967

== ENCOUNTER 2017-02-28 11:03 | Inpatient (IN) | payer MEDICARE, OTHER ==
[2017-02-28] MEDS: TIOTROPIUM INHALER/CAPSULE (SPIRIVA) INH (08:00)
[2017-02-28 11:43] LABS: ABG BASE EXCESS 3.5 (-2.0-2.0); ABG HCO3 28.2 MEQ/L (22.0-26.0); ABG PARTIAL PRESSURE CO2 43.1 mmHg (35.0-45.0); ABG PARTIAL PRESSURE O2 79.3 mmHg (75.0-100.0); ABG STANDARD HCO3 27.6 MEQ/L (22.0-26.0); ABG TOTAL CO2 29.5 MEQ/L (23.0-31.0); ABG pH (ARTERIAL) 7.433 UNITS (7.350-7.450)
[2017-02-28] MEDS: IPRATROPIUM 0.5MG/ALBUTEROL 2.5MG INH SOL UD 3ML (DUONEB)(J7620) NEB ×5 (11:53→20:34)
[2017-02-28 12:02] LABS: BASO % 0.2 % (0.0-1.0); EOS # 0.1 10^3/uL (0.0-0.50); EOS % 0.5 % (0.0-3.0); HEMATOCRIT 32.2 % (36.0-47.0); HEMOGLOBIN 9.9 g/dl (12.0-16.0); IMMATURE GRANULOCYTE # 0.2 10^3/uL (0-0); IMMATURE GRANULOCYTE % 1.3 % (0-0); LYMPH # 0.8 10^3/uL (1.5-4.5); LYMPH % 5.7 % (24.0-44.0); MEAN CORPUSCULAR HEMOGLOBIN 25.1 pg (27.0-33.0); MEAN CORPUSCULAR HGB CONC 30.7 g/dl (32.0-36.5); MEAN CORPUSCULAR VOLUME 81.5 fl (80.0-96.0); MONO # 0.8 10^3/uL (0.0-0.8); MONO % 5.9 % (0.0-5.0); NEUTROPHILS # 11.4 10^3/uL (1.8-7.7); NEUTROPHILS % 86.4 % (36.0-66.0); PLATELET COUNT, AUTOMATED 201 10^3/uL (150-450); RED BLOOD COUNT 3.95 10^6/uL (4.00-5.40); RED CELL DISTRIBUTION WIDTH 18.2 % (11.5-14.5); WHITE BLOOD COUNT 13.2 10^3/uL (4.0-10.0)
[2017-02-28 12:18] LABS: INR 1.37; PROTHROMBIN TIME 17.2 SECONDS (12.4-14.5)
[2017-02-28 12:27] LABS: ANION GAP 6 MEQ/L (8-16); BLOOD UREA NITROGEN 12 MG/DL (7-18); CALCIUM LEVEL 8.3 MG/DL (8.8-10.2); CARBON DIOXIDE LEVEL 32 MEQ/L (21-32); CHLORIDE LEVEL 99 MEQ/L (98-107); CPK CREATINE PHOSPHOKINASE 16 U/L (26-192); GLOMERULAR FILTRATION RATE > 60.0 (>39); GLUCOSE, FASTING 139 MG/DL (83-110); POTASSIUM SERUM 3.8 MEQ/L (3.5-5.1); SODIUM LEVEL 137 MEQ/L (136-145); TROPONIN I < 0.02 NG/ML (< 0.10)
[2017-02-28 12:28] LABS: MB/CK RELATIVE INDEX 6.25 (< OR =4)
[2017-02-28 12:37] LABS: ALBUMIN 2.7 GM/DL (3.2-5.2); ALBUMIN/GLOBULIN RATIO 0.82 (1.00-1.93); ALKALINE PHOSPHATASE 60 U/L (45-117); ALT/SGPT 12 U/L (12-78); AST/SGOT 10 U/L (7-37); BILIRUBIN,DIRECT 0.3 MG/DL (0.0-0.2); BILIRUBIN,TOTAL 0.8 MG/DL (0.2-1.0); NT-PRO BNP 3274 PG/ML (<450)
[2017-02-28 12:56] LABS: LACTIC ACID SEPSIS PROTOCOL 2.1 MMOL/L (0.4-2.0)
[2017-02-28] MEDS: FUROSEMIDE 40 MG/4 ML VIAL (J1940) IV (13:35)
[2017-02-28] MEDS: methylPREDNISolone INJ 125 MG/2 ML VIAL (J2930) IV ×2 (13:35→21:28)
[2017-02-28] MEDS: MOXIFLOXACIN HCL 400 MG in APPROPRIATE DILUENT 1 EA IV (13:35)
[2017-02-28] MEDS ORDERED: ONDANSETRON 4MG/2ML VIAL (J2405) IV (14:45)
[2017-02-28] MEDS ORDERED: ACETAMINOPHEN TAB 650MG DOSE (2X325MG) PO (14:45)
[2017-02-28] MEDS ORDERED: FLUTICASONE PROP 0.05% NASAL SPRAY 16 GM (FLONASE) (15:00)
[2017-02-28] MEDS ORDERED: ALBUTEROL SULFATE 2.5 MG/0.5 ML INH NEB SOLN INH (15:00)
[2017-02-28] MEDS ORDERED: GLUCAGON FOR INJ 1 MG VIAL (J1610) SC (15:30)
[2017-02-28] MEDS ORDERED: GLUCOSE 4 GM CHEW TABLET PO (15:30)
[2017-02-28] MEDS ORDERED: DEXTROSE 50% 50 ML SYRINGE IV (15:30)
[2017-02-28] MEDS: VANCOMYCIN HCL 1,000 MG, VIAL MATE ADAPTER 1 EACH in D5W 250 ML IV ×2 (18:53→22:04)
[2017-02-28] MEDS: ASPIRIN 81 MG ENTERIC TAB PO (18:54)
[2017-02-28] MEDS: MAGNESIUM OXIDE 400 MG TAB (MAG-OX) PO (18:55)
[2017-02-28] MEDS: NS 1,000 ML IV (18:55)
[2017-02-28] MEDS: ISOSORBIDE MON. (IMDUR) 60 MG XR TAB PO (18:58)
[2017-02-28] MEDS: HumaLOG INSULIN (NovoLOG) PER UNIT SC ×2 (19:00→22:09)
[2017-02-28 19:08] LABS: BEDSIDE GLUCOSE 222 MG/DL (83-110)
[2017-02-28 20:14] LABS: CPK CREATINE PHOSPHOKINASE 18 U/L (26-192); MB/CK RELATIVE INDEX 5.55 (< OR =4); TROPONIN I < 0.02 NG/ML (< 0.10)
[2017-02-28] MEDS ORDERED: VANCOMYCIN HCL 750 MG, VIAL MATE ADAPTER 1 EACH in D5W 250 ML IV (21:00)
[2017-02-28] MEDS: POTASSIUM CHLORIDE 10 MEQ SR TABLET PO (21:24)
[2017-02-28] MEDS: METOPROLOL TART 25 MG TABLET PO (21:26)
[2017-02-28] MEDS: FLUoxetine 20 MG CAP PO (21:27)
[2017-02-28] MEDS: guaiFENesin ER 600 MG TAB PO (21:27)
[2017-02-28] MEDS: buPROPion **XL** TABLET 150MG (WELLBUTRIN XL) PO (21:27)
[2017-02-28] MEDS: RIVAROXABAN 15 MG TAB (XARELTO) PO (21:28)
[2017-02-28] MEDS: LATANOPROST 0.005% OPHTH SOLN 2.5 ML OU (21:29)
[2017-02-28] MEDS: BRIMONIDINE 0.1% OPHTH SOLN 5 ML OU (21:29)
[2017-02-28 21:53] LABS: BEDSIDE GLUCOSE 329 MG/DL (83-110)
[2017-03-01] MEDS: IPRATROPIUM 0.5MG/ALBUTEROL 2.5MG INH SOL UD 3ML (DUONEB)(J7620) NEB ×7 (00:02→23:24)
[2017-03-01 03:52] LABS: BASO % 0.2 % (0.0-1.0); HEMATOCRIT 31.3 % (36.0-47.0); HEMOGLOBIN 9.5 g/dl (12.0-16.0); IMMATURE GRANULOCYTE # 0.2 10^3/uL (0-0); IMMATURE GRANULOCYTE % 1.8 % (0-0); LYMPH # 0.4 10^3/uL (1.5-4.5); LYMPH % 3.3 % (24.0-44.0); MEAN CORPUSCULAR HEMOGLOBIN 24.5 pg (27.0-33.0); MEAN CORPUSCULAR HGB CONC 30.4 g/dl (32.0-36.5); MEAN CORPUSCULAR VOLUME 80.9 fl (80.0-96.0); MONO # 0.2 10^3/uL (0.0-0.8); MONO % 2.1 % (0.0-5.0); NEUTROPHILS # 10.2 10^3/uL (1.8-7.7); NEUTROPHILS % 92.6 % (36.0-66.0); PLATELET COUNT, AUTOMATED 218 10^3/uL (150-450); RED BLOOD COUNT 3.87 10^6/uL (4.00-5.40); RED CELL DISTRIBUTION WIDTH 17.9 % (11.5-14.5); WHITE BLOOD COUNT 11.1 10^3/uL (4.0-10.0)
[2017-03-01 04:13] LABS: ANION GAP 7 MEQ/L (8-16); BLOOD UREA NITROGEN 18 MG/DL (7-18); CALCIUM LEVEL 8.6 MG/DL (8.8-10.2); CARBON DIOXIDE LEVEL 30 MEQ/L (21-32); CHLORIDE LEVEL 101 MEQ/L (98-107); CPK CREATINE PHOSPHOKINASE 14 U/L (26-192); CREATININE FOR GFR 1.17 MG/DL (0.55-1.02); GLUCOSE, FASTING 209 MG/DL (83-110); MAGNESIUM LEVEL 1.8 MG/DL (1.8-2.4); MB/CK RELATIVE INDEX 7.14 (< OR =4); POTASSIUM SERUM 3.8 MEQ/L (3.5-5.1); SODIUM LEVEL 138 MEQ/L (136-145); TROPONIN I < 0.02 NG/ML (< 0.10)
[2017-03-01] MEDS: methylPREDNISolone INJ 125 MG/2 ML VIAL (J2930) IV ×3 (05:33→21:22)
[2017-03-01] MEDS: VANCOMYCIN HCL 1,000 MG, VIAL MATE ADAPTER 1 EACH in D5W 250 ML IV ×2 (06:28→17:28)
[2017-03-01] MEDS: TIOTROPIUM INHALER/CAPSULE (SPIRIVA) INH (07:44)
[2017-03-01] MEDS: ISOSORBIDE MON. (IMDUR) 60 MG XR TAB PO (09:00)
[2017-03-01] MEDS: HumaLOG INSULIN (NovoLOG) PER UNIT SC ×4 (09:34→21:22)
[2017-03-01] MEDS: MAGNESIUM OXIDE 400 MG TAB (MAG-OX) PO (09:35)
[2017-03-01] MEDS: LevoFLOXacin IV 250 MG in APPROPRIATE DILUENT 1 EA IV (09:35)
[2017-03-01] MEDS: guaiFENesin ER 600 MG TAB PO ×2 (09:36→21:21)
[2017-03-01] MEDS: METOPROLOL TART 25 MG TABLET PO ×2 (09:36→21:21)
[2017-03-01] MEDS: ASPIRIN 81 MG ENTERIC TAB PO (09:36)
[2017-03-01] MEDS: BRIMONIDINE 0.1% OPHTH SOLN 5 ML OU ×2 (09:37→21:22)
[2017-03-01 10:46] LABS: CPK CREATINE PHOSPHOKINASE 18 U/L (26-192); TROPONIN I < 0.02 NG/ML (< 0.10)
[2017-03-01 10:47] LABS: MB/CK RELATIVE INDEX 5.55 (< OR =4)
[2017-03-01 12:32] LABS: BEDSIDE GLUCOSE 270 MG/DL (83-110)
[2017-03-01 16:38] LABS: BEDSIDE GLUCOSE 270 MG/DL (83-110)
[2017-03-01 21:13] LABS: BEDSIDE GLUCOSE 338 MG/DL (83-110)
[2017-03-01] MEDS: RIVAROXABAN 15 MG TAB (XARELTO) PO (21:20)
[2017-03-01] MEDS: POTASSIUM CHLORIDE 10 MEQ SR TABLET PO (21:20)
[2017-03-01] MEDS: FLUoxetine 20 MG CAP PO (21:21)
[2017-03-01] MEDS: buPROPion **XL** TABLET 150MG (WELLBUTRIN XL) PO (21:21)
[2017-03-01] MEDS: LATANOPROST 0.005% OPHTH SOLN 2.5 ML OU (21:22)
[2017-03-02] MEDS: IPRATROPIUM 0.5MG/ALBUTEROL 2.5MG INH SOL UD 3ML (DUONEB)(J7620) NEB ×5 (04:00→19:13)
[2017-03-02] MEDS: VANCOMYCIN HCL 1,000 MG, VIAL MATE ADAPTER 1 EACH in D5W 250 ML IV (05:11)
[2017-03-02] MEDS: methylPREDNISolone INJ 125 MG/2 ML VIAL (J2930) IV ×3 (05:11→21:12)
[2017-03-02 05:36] LABS: BASO % 0.2 % (0.0-1.0); HEMATOCRIT 30.5 % (36.0-47.0); HEMOGLOBIN 9.3 g/dl (12.0-16.0); IMMATURE GRANULOCYTE # 0.4 10^3/uL (0-0); IMMATURE GRANULOCYTE % 2.6 % (0-0); LYMPH # 0.6 10^3/uL (1.5-4.5); LYMPH % 3.5 % (24.0-44.0); MEAN CORPUSCULAR HEMOGLOBIN 24.7 pg (27.0-33.0); MEAN CORPUSCULAR HGB CONC 30.5 g/dl (32.0-36.5); MEAN CORPUSCULAR VOLUME 81.1 fl (80.0-96.0); MONO # 0.4 10^3/uL (0.0-0.8); MONO % 2.8 % (0.0-5.0); NEUTROPHILS # 14.6 10^3/uL (1.8-7.7); NEUTROPHILS % 90.9 % (36.0-66.0); PLATELET COUNT, AUTOMATED 286 10^3/uL (150-450); RED BLOOD COUNT 3.76 10^6/uL (4.00-5.40); RED CELL DISTRIBUTION WIDTH 17.7 % (11.5-14.5)
[2017-03-02 05:54] LABS: VANCOMYCIN LEVEL TROUGH 20.1 UG/ML (10.0-20.0)
[2017-03-02 05:58] LABS: ANION GAP 7 MEQ/L (8-16); BLOOD UREA NITROGEN 30 MG/DL (7-18); CALCIUM LEVEL 8.8 MG/DL (8.8-10.2); CARBON DIOXIDE LEVEL 31 MEQ/L (21-32); CHLORIDE LEVEL 103 MEQ/L (98-107); CREATININE FOR GFR 1.09 MG/DL (0.55-1.02); GLOMERULAR FILTRATION RATE 52.1 (>39); GLUCOSE, FASTING 224 MG/DL (83-110); MAGNESIUM LEVEL 2.1 MG/DL (1.8-2.4); POTASSIUM SERUM 4.2 MEQ/L (3.5-5.1); SODIUM LEVEL 141 MEQ/L (136-145)
[2017-03-02] MEDS: TIOTROPIUM INHALER/CAPSULE (SPIRIVA) INH (07:09)
[2017-03-02] MEDS: LevoFLOXacin IV 250 MG in APPROPRIATE DILUENT 1 EA IV (08:07)
[2017-03-02] MEDS: HumaLOG INSULIN (NovoLOG) PER UNIT SC ×4 (08:07→21:13)
[2017-03-02] MEDS: BRIMONIDINE 0.1% OPHTH SOLN 5 ML OU ×2 (08:08→21:10)
[2017-03-02] MEDS: ASPIRIN 81 MG ENTERIC TAB PO (08:08)
[2017-03-02] MEDS: MAGNESIUM OXIDE 400 MG TAB (MAG-OX) PO (08:08)
[2017-03-02] MEDS: guaiFENesin ER 600 MG TAB PO ×2 (08:08→21:11)
[2017-03-02] MEDS: METOPROLOL TART 25 MG TABLET PO ×2 (08:38→21:11)
[2017-03-02] MEDS: ISOSORBIDE MON. (IMDUR) 60 MG XR TAB PO (08:39)
[2017-03-02 11:53] LABS: BEDSIDE GLUCOSE 282 MG/DL (83-110)
[2017-03-02 17:05] LABS: BEDSIDE GLUCOSE 286 MG/DL (83-110)
[2017-03-02 20:58] LABS: BEDSIDE GLUCOSE 308 MG/DL (83-110)
[2017-03-02] MEDS: LATANOPROST 0.005% OPHTH SOLN 2.5 ML OU (21:10)
[2017-03-02] MEDS: buPROPion **XL** TABLET 150MG (WELLBUTRIN XL) PO (21:11)
[2017-03-02] MEDS: FLUoxetine 20 MG CAP PO (21:11)
[2017-03-02] MEDS: RIVAROXABAN 15 MG TAB (XARELTO) PO (21:12)
[2017-03-02] MEDS: POTASSIUM CHLORIDE 10 MEQ SR TABLET PO (21:12)
[2017-03-03] MEDS: VANCOMYCIN HCL 1,000 MG, VIAL MATE ADAPTER 1 EACH in D5W 250 ML IV (00:16)
[2017-03-03] MEDS: methylPREDNISolone INJ 125 MG/2 ML VIAL (J2930) IV (06:27)
[2017-03-03] MEDS: IPRATROPIUM 0.5MG/ALBUTEROL 2.5MG INH SOL UD 3ML (DUONEB)(J7620) NEB ×3 (07:03→11:51)
[2017-03-03] MEDS: TIOTROPIUM INHALER/CAPSULE (SPIRIVA) INH (07:03)
[2017-03-03 07:08] LABS: BASO % 0.2 % (0.0-1.0); HEMATOCRIT 32.4 % (36.0-47.0); HEMOGLOBIN 9.6 g/dl (12.0-16.0); IMMATURE GRANULOCYTE # 0.5 10^3/uL (0-0); IMMATURE GRANULOCYTE % 3.2 % (0-0); LYMPH # 0.5 10^3/uL (1.5-4.5); LYMPH % 3.1 % (24.0-44.0); MEAN CORPUSCULAR HEMOGLOBIN 24.5 pg (27.0-33.0); MEAN CORPUSCULAR HGB CONC 29.6 g/dl (32.0-36.5); MEAN CORPUSCULAR VOLUME 82.7 fl (80.0-96.0); MONO # 0.8 10^3/uL (0.0-0.8); MONO % 4.9 % (0.0-5.0); NEUTROPHILS # 14.8 10^3/uL (1.8-7.7); NEUTROPHILS % 88.6 % (36.0-66.0); PLATELET COUNT, AUTOMATED 334 10^3/uL (150-450); RED BLOOD COUNT 3.92 10^6/uL (4.00-5.40); WHITE BLOOD COUNT 16.7 10^3/uL (4.0-10.0)
[2017-03-03 07:23] LABS: ANION GAP 4 MEQ/L (8-16); BLOOD UREA NITROGEN 35 MG/DL (7-18); CARBON DIOXIDE LEVEL 31 MEQ/L (21-32); CHLORIDE LEVEL 102 MEQ/L (98-107); CREATININE FOR GFR 1.12 MG/DL (0.55-1.02); GLOMERULAR FILTRATION RATE 50.5 (>39); GLUCOSE, FASTING 291 MG/DL (83-110); MAGNESIUM LEVEL 2.3 MG/DL (1.8-2.4); POTASSIUM SERUM 4.8 MEQ/L (3.5-5.1); SODIUM LEVEL 137 MEQ/L (136-145)
[2017-03-03] MEDS: HumaLOG INSULIN (NovoLOG) PER UNIT SC ×2 (07:30→12:06)
[2017-03-03] MEDS: ASPIRIN 81 MG ENTERIC TAB PO (08:27)
[2017-03-03] MEDS: METOPROLOL TART 25 MG TABLET PO (08:27)
[2017-03-03] MEDS: guaiFENesin ER 600 MG TAB PO (08:28)
[2017-03-03] MEDS: ISOSORBIDE MON. (IMDUR) 60 MG XR TAB PO (08:28)
[2017-03-03] MEDS: MAGNESIUM OXIDE 400 MG TAB (MAG-OX) PO (08:29)
[2017-03-03] MEDS: BRIMONIDINE 0.1% OPHTH SOLN 5 ML OU (08:30)
[2017-03-03 12:03] LABS: BEDSIDE GLUCOSE 297 MG/DL (83-110)
[2017-03-03] MEDS: LevoFLOXacin IV 250 MG in APPROPRIATE DILUENT 1 EA IV (12:06)
== END 2017-03-03 13:30 | disposition home health service (06) | DRG 190 ==
LOC: M MS5PR 03-02 20:27 → M ED 11:03 → M ED INP 14:40 → M PCU 18:08
DX: J44.0 Chronic obstructive pulmonary disease with (acute) lower respiratory infection (principal); J18.9 Pneumonia, unspecified organism; I48.92 Unspecified atrial flutter; I50.32 Chronic diastolic (congestive) heart failure; J44.1 Chronic obstructive pulmonary disease with (acute) exacerbation; I11.0 Hypertensive heart disease with heart failure; E66.9 Obesity, unspecified; G47.33 Obstructive sleep apnea (adult) (pediatric); E11.9 Type 2 diabetes mellitus without complications; R09.02 Hypoxemia; F41.9 Anxiety disorder, unspecified; H40.9 Unspecified glaucoma; D64.9 Anemia, unspecified; F32.9 Major depressive disorder, single episode, unspecified; Z95.0 Presence of cardiac pacemaker; Z79.82 Long term (current) use of aspirin; Z79.899 Other long term (current) drug therapy; Z88.0 Allergy status to penicillin; Z88.2 Allergy status to sulfonamides; Z88.5 Allergy status to narcotic agent; Z88.8 Allergy status to other drugs, medicaments and biological substances; Z88.1 Allergy status to other antibiotic agents; Z79.01 Long term (current) use of anticoagulants; Z91.19 Patient's noncompliance with other medical treatment and regimen

== ENCOUNTER 2017-03-22 15:10 | Inpatient (IN) | payer MEDICARE, OTHER ==
[2017-03-22 16:19] LABS: BASO # 0.1 10^3/uL (0.0-0.2); BASO % 0.6 % (0.0-1.0); EOS # 0.4 10^3/uL (0.0-0.50); HEMATOCRIT 31.7 % (36.0-47.0); HEMOGLOBIN 9.6 g/dl (12.0-16.0); IMMATURE GRANULOCYTE # 0.3 10^3/uL (0-0); IMMATURE GRANULOCYTE % 2.5 % (0-0); LYMPH % 9.5 % (24.0-44.0); MEAN CORPUSCULAR HEMOGLOBIN 24.9 pg (27.0-33.0); MEAN CORPUSCULAR HGB CONC 30.3 g/dl (32.0-36.5); MEAN CORPUSCULAR VOLUME 82.3 fl (80.0-96.0); MONO # 0.7 10^3/uL (0.0-0.8); MONO % 6.5 % (0.0-5.0); NEUTROPHILS # 8.3 10^3/uL (1.8-7.7); NEUTROPHILS % 76.9 % (36.0-66.0); PLATELET COUNT, AUTOMATED 196 10^3/uL (150-450); RED BLOOD COUNT 3.85 10^6/uL (4.00-5.40); RED CELL DISTRIBUTION WIDTH 19.8 % (11.5-14.5); WHITE BLOOD COUNT 10.8 10^3/uL (4.0-10.0)
[2017-03-22 16:32] LABS: ANION GAP 6 MEQ/L (8-16); BLOOD UREA NITROGEN 14 MG/DL (7-18); CALCIUM LEVEL 8.4 MG/DL (8.8-10.2); CARBON DIOXIDE LEVEL 28 MEQ/L (21-32); CHLORIDE LEVEL 103 MEQ/L (98-107); CPK CREATINE PHOSPHOKINASE 17 U/L (26-192); CREATININE FOR GFR 1.01 MG/DL (0.55-1.30); GLOMERULAR FILTRATION RATE 56.9 (>39); GLUCOSE, FASTING 164 MG/DL (70-100); MB/CK RELATIVE INDEX 5.88 (< OR =4); POTASSIUM SERUM 4.1 MEQ/L (3.5-5.1); SODIUM LEVEL 137 MEQ/L (136-145); TROPONIN I < 0.02 NG/ML (< 0.10)
[2017-03-22] MEDS: ALBUTEROL SULFATE 2.5 MG/0.5 ML INH NEB SOLN INH (16:32)
[2017-03-22] MEDS: IPRATROPIUM 0.5MG/ALBUTEROL 2.5MG INH SOL UD 3ML (DUONEB)(J7620) NEB (16:32)
[2017-03-22 16:34] LABS: LACTIC ACID SEPSIS PROTOCOL 2.1 MMOL/L (0.4-2.0)
[2017-03-22 16:39] LABS: ALBUMIN 2.7 GM/DL (3.2-5.2); ALBUMIN/GLOBULIN RATIO 1.04 (1.00-1.93); ALKALINE PHOSPHATASE 65 U/L (45-117); ALT/SGPT 8 U/L (12-78); AST/SGOT 9 U/L (7-37); BILIRUBIN,DIRECT 0.3 MG/DL (0.0-0.2); BILIRUBIN,TOTAL 0.7 MG/DL (0.2-1.0); NT-PRO BNP 2424 PG/ML (<450); THYROXINE (T4) 11.4 UG/DL (4.5-12.0); TOTAL PROTEIN 5.3 GM/DL (6.4-8.2)
[2017-03-22] MEDS ORDERED: METAL LOCK LOOP XX (16:53)
[2017-03-22] MEDS: methylPREDNISolone INJ 125 MG/2 ML VIAL (J2930) IV (17:05)
[2017-03-22] MEDS: FUROSEMIDE 40 MG/4 ML VIAL (J1940) IV ×2 (17:06→23:20)
[2017-03-22 17:19] LABS: ABG BASE EXCESS 1.4 (-2.0-2.0); ABG HCO3 25.1 MEQ/L (22.0-26.0); ABG O2 SATURATION 94.7 % (95.0-99.0); ABG PARTIAL PRESSURE O2 76.9 mmHg (75.0-100.0); ABG STANDARD HCO3 25.7 MEQ/L (22.0-26.0); ABG TOTAL CO2 26.2 MEQ/L (23.0-31.0); ABG pH (ARTERIAL) 7.461 UNITS (7.350-7.450)
[2017-03-22 17:58] LABS: INFLUENZA A AMPLIFICATION NEGATIVE (NEGATIVE); INFLUENZA B AMPLIFICATION NEGATIVE (NEGATIVE)
[2017-03-22] MEDS ORDERED: IPRATROPIUM 0.5MG/ALBUTEROL 2.5MG INH SOL UD 3ML (DUONEB)(J7620) INH (18:00)
[2017-03-22] MEDS ORDERED: PERCOCET 5MG/325MG TAB PO (18:00)
[2017-03-22] MEDS ORDERED: GLUCAGON FOR INJ 1 MG VIAL (J1610) SC (18:00)
[2017-03-22] MEDS ORDERED: DEXTROSE 50% 50 ML SYRINGE IV (18:00)
[2017-03-22] MEDS ORDERED: FLUTICASONE PROP 0.05% NASAL SPRAY 16 GM (FLONASE) (18:00)
[2017-03-22] MEDS ORDERED: GLUCOSE 4 GM CHEW TABLET PO (18:00)
[2017-03-22] MEDS ORDERED: ALBUTEROL 90 MCG/ACT 8GM HFA INHALER INH (18:00)
[2017-03-22] MEDS: TIOTROPIUM INHALER/CAPSULE (SPIRIVA) INH (21:00)
[2017-03-22] MEDS: BRIMONIDINE 0.1% OPHTH SOLN 5 ML OU (21:00)
[2017-03-22] MEDS: ADVAIR HFA 230/21MCG INHALER INH (21:00)
[2017-03-22 21:28] LABS: CPK CREATINE PHOSPHOKINASE 12 U/L (26-192); TROPONIN I < 0.02 NG/ML (< 0.10)
[2017-03-22 21:29] LABS: MB/CK RELATIVE INDEX 8.33 (< OR =4)
[2017-03-22] MEDS: buPROPion **XL** TABLET 150MG (WELLBUTRIN XL) PO (23:17)
[2017-03-22] MEDS: CitaloPRAM (CeleXA) 20 MG TAB PO (23:17)
[2017-03-22 23:18] LABS: BEDSIDE GLUCOSE 391 MG/DL (83-110)
[2017-03-22] MEDS: POTASSIUM CHLORIDE 10 MEQ SR TABLET PO (23:18)
[2017-03-22] MEDS: RIVAROXABAN 15 MG TAB (XARELTO) PO (23:18)
[2017-03-22] MEDS: METOPROLOL TART 25 MG TABLET PO (23:19)
[2017-03-22] MEDS: HumaLOG INSULIN (NovoLOG) PER UNIT SC (23:19)
[2017-03-23] MEDS ORDERED: FUROSEMIDE 40 MG/4 ML VIAL (J1940) IV
[2017-03-23] MEDS: FUROSEMIDE 40 MG/4 ML VIAL (J1940) IV ×3 (05:20→18:28)
[2017-03-23 06:14] LABS: BEDSIDE GLUCOSE 222 MG/DL (83-110)
[2017-03-23 06:21] LABS: BASO % 0.2 % (0.0-1.0); HEMOGLOBIN 9.8 g/dl (12.0-16.0); IMMATURE GRANULOCYTE # 0.2 10^3/uL (0-0); IMMATURE GRANULOCYTE % 2.3 % (0-0); LYMPH # 0.6 10^3/uL (1.5-4.5); LYMPH % 5.7 % (24.0-44.0); MEAN CORPUSCULAR HEMOGLOBIN 25.2 pg (27.0-33.0); MEAN CORPUSCULAR HGB CONC 30.6 g/dl (32.0-36.5); MEAN CORPUSCULAR VOLUME 82.3 fl (80.0-96.0); MONO # 0.1 10^3/uL (0.0-0.8); MONO % 1.1 % (0.0-5.0); NEUTROPHILS # 8.8 10^3/uL (1.8-7.7); NEUTROPHILS % 90.7 % (36.0-66.0); PLATELET COUNT, AUTOMATED 188 10^3/uL (150-450); RED BLOOD COUNT 3.89 10^6/uL (4.00-5.40); RED CELL DISTRIBUTION WIDTH 19.7 % (11.5-14.5); WHITE BLOOD COUNT 9.7 10^3/uL (4.0-10.0)
[2017-03-23 06:51] LABS: ANION GAP 6 MEQ/L (8-16); BLOOD UREA NITROGEN 20 MG/DL (7-18); CARBON DIOXIDE LEVEL 30 MEQ/L (21-32); CHLORIDE LEVEL 102 MEQ/L (98-107); CPK CREATINE PHOSPHOKINASE 14 U/L (26-192); CREATININE FOR GFR 1.18 MG/DL (0.55-1.30); GLOMERULAR FILTRATION RATE 47.5 (>39); GLUCOSE, FASTING 221 MG/DL (70-100); MB/CK RELATIVE INDEX 7.14 (< OR =4); POTASSIUM SERUM 4.6 MEQ/L (3.5-5.1); SODIUM LEVEL 138 MEQ/L (136-145); TROPONIN I < 0.02 NG/ML (< 0.10)
[2017-03-23] MEDS: ADVAIR HFA 230/21MCG INHALER INH ×2 (07:04→20:43)
[2017-03-23] MEDS: TIOTROPIUM INHALER/CAPSULE (SPIRIVA) INH (07:04)
[2017-03-23] MEDS: ASPIRIN 81 MG ENTERIC TAB PO (08:13)
[2017-03-23] MEDS: HumaLOG INSULIN (NovoLOG) PER UNIT SC ×4 (08:13→21:27)
[2017-03-23] MEDS: MAGNESIUM OXIDE 400 MG TAB (MAG-OX) PO (08:13)
[2017-03-23] MEDS: ISOSORBIDE MON. (IMDUR) 60 MG XR TAB PO (08:18)
[2017-03-23] MEDS: METOPROLOL TART 25 MG TABLET PO ×2 (08:19→21:00)
[2017-03-23] MEDS: PNEUMOCOCCAL VACCINE 0.5ML SYRINGE(90732) PNEUMOVAX 23 IM (08:20)
[2017-03-23] MEDS: BRIMONIDINE 0.1% OPHTH SOLN 5 ML OU ×2 (08:20→22:22)
[2017-03-23 11:02] LABS: RETIC HEMOGLOBIN EQUIVALENT 20.2 pg (24-36); RETICULOCYTE # 141.6 10^9/L (17-77); RETICULOCYTE % 3.6 % (0.5-1.5)
[2017-03-23 11:05] LABS: FERRITIN 73 NG/ML (8-252); IRON (FE) 26 UG/DL (50-170); PERCENT SATURATION 7.7 % (13.2-45.0); TOTAL IRON BINDING CAPACITY 337 UG/DL (250-450)
[2017-03-23] MEDS: predniSONE 20 MG TAB PO (11:25)
[2017-03-23 11:26] LABS: ESTIMATED AVERAGE GLUCOSE 154 MG/DL (60-110)
[2017-03-23 12:34] LABS: BEDSIDE GLUCOSE 357 MG/DL (83-110)
[2017-03-23] MEDS: SPIRONOLACTONE 25 MG TAB PO (14:06)
[2017-03-23 17:56] LABS: BEDSIDE GLUCOSE 310 MG/DL (83-110)
[2017-03-23 21:19] LABS: BEDSIDE GLUCOSE 411 MG/DL (83-110)
[2017-03-23] MEDS: CitaloPRAM (CeleXA) 20 MG TAB PO (21:26)
[2017-03-23] MEDS: RIVAROXABAN 15 MG TAB (XARELTO) PO (21:26)
[2017-03-23] MEDS: buPROPion **XL** TABLET 150MG (WELLBUTRIN XL) PO (21:26)
[2017-03-23 23:54] LABS: BEDSIDE GLUCOSE 366 MG/DL (83-110)
[2017-03-24 00:48] LABS: BEDSIDE GLUCOSE 345 MG/DL (83-110)
[2017-03-24] MEDS: FUROSEMIDE 40 MG/4 ML VIAL (J1940) IV ×4 (01:12→18:00)
[2017-03-24 05:30] LABS: BASO % 0.1 % (0.0-1.0); HEMOGLOBIN 9.6 g/dl (12.0-16.0); IMMATURE GRANULOCYTE # 0.5 10^3/uL (0-0); IMMATURE GRANULOCYTE % 2.3 % (0-0); LYMPH # 1.1 10^3/uL (1.5-4.5); LYMPH % 5.5 % (24.0-44.0); MEAN CORPUSCULAR HEMOGLOBIN 24.8 pg (27.0-33.0); MEAN CORPUSCULAR VOLUME 82.7 fl (80.0-96.0); MONO # 0.8 10^3/uL (0.0-0.8); MONO % 3.7 % (0.0-5.0); NEUTROPHILS % 88.4 % (36.0-66.0); PLATELET COUNT, AUTOMATED 259 10^3/uL (150-450); RED BLOOD COUNT 3.87 10^6/uL (4.00-5.40); RED CELL DISTRIBUTION WIDTH 19.9 % (11.5-14.5); WHITE BLOOD COUNT 20.3 10^3/uL (4.0-10.0)
[2017-03-24 05:58] LABS: ANION GAP 6 MEQ/L (8-16); BLOOD UREA NITROGEN 34 MG/DL (7-18); CALCIUM LEVEL 9.3 MG/DL (8.8-10.2); CARBON DIOXIDE LEVEL 34 MEQ/L (21-32); CHLORIDE LEVEL 98 MEQ/L (98-107); CREATININE FOR GFR 1.26 MG/DL (0.55-1.30); GLOMERULAR FILTRATION RATE 44.1 (>39); GLUCOSE, FASTING 180 MG/DL (70-100); POTASSIUM SERUM 3.9 MEQ/L (3.5-5.1); SODIUM LEVEL 138 MEQ/L (136-145)
[2017-03-24] MEDS: TIOTROPIUM INHALER/CAPSULE (SPIRIVA) INH (08:27)
[2017-03-24] MEDS: ADVAIR HFA 230/21MCG INHALER INH ×2 (08:28→20:24)
[2017-03-24 09:51] LABS: VITAMIN B12 LEVEL 342 PG/ML (247-911)
[2017-03-24 09:52] LABS: FOLATE 7.7 NG/ML (>5.4)
[2017-03-24] MEDS: ISOSORBIDE MON. (IMDUR) 60 MG XR TAB PO (10:03)
[2017-03-24] MEDS: METOPROLOL TART 25 MG TABLET PO ×2 (10:04→21:13)
[2017-03-24] MEDS: predniSONE 20 MG TAB PO (10:04)
[2017-03-24] MEDS: IRON POLYSAC (NIFEREX) 150 MG CAP PO ×2 (10:04→21:12)
[2017-03-24] MEDS: SPIRONOLACTONE 25 MG TAB PO (10:05)
[2017-03-24] MEDS: ASPIRIN 81 MG ENTERIC TAB PO (10:05)
[2017-03-24] MEDS: MAGNESIUM OXIDE 400 MG TAB (MAG-OX) PO (10:05)
[2017-03-24] MEDS: HumaLOG INSULIN (NovoLOG) PER UNIT SC ×4 (10:06→21:14)
[2017-03-24] MEDS: BRIMONIDINE 0.1% OPHTH SOLN 5 ML OU ×2 (10:06→21:20)
[2017-03-24 11:50] LABS: BEDSIDE GLUCOSE 228 MG/DL (83-110)
[2017-03-24 17:57] LABS: BEDSIDE GLUCOSE 287 MG/DL (83-110)
[2017-03-24] MEDS: buPROPion **XL** TABLET 150MG (WELLBUTRIN XL) PO (21:12)
[2017-03-24] MEDS: CitaloPRAM (CeleXA) 20 MG TAB PO (21:12)
[2017-03-24] MEDS: RIVAROXABAN 15 MG TAB (XARELTO) PO (21:13)
[2017-03-24] MEDS: LEVEMIR (INSULIN DETEMIR) 1 UNITS/0.01ML SC (21:14)
[2017-03-24 21:25] LABS: BEDSIDE GLUCOSE 444 MG/DL (83-110)
[2017-03-25] MEDS: FUROSEMIDE 40 MG/4 ML VIAL (J1940) IV ×5 (00:08→23:54)
[2017-03-25 05:56] LABS: BASO % 0.1 % (0.0-1.0); EOS % 0.1 % (0.0-3.0); HEMATOCRIT 33.6 % (36.0-47.0); HEMOGLOBIN 10.1 g/dl (12.0-16.0); IMMATURE GRANULOCYTE # 0.4 10^3/uL (0-0); IMMATURE GRANULOCYTE % 2.7 % (0-0); LYMPH # 1.4 10^3/uL (1.5-4.5); MEAN CORPUSCULAR HEMOGLOBIN 24.6 pg (27.0-33.0); MEAN CORPUSCULAR HGB CONC 30.1 g/dl (32.0-36.5); MONO # 0.7 10^3/uL (0.0-0.8); MONO % 5.1 % (0.0-5.0); NEUTROPHILS # 11.5 10^3/uL (1.8-7.7); PLATELET COUNT, AUTOMATED 271 10^3/uL (150-450); RED CELL DISTRIBUTION WIDTH 19.7 % (11.5-14.5); WHITE BLOOD COUNT 14.1 10^3/uL (4.0-10.0)
[2017-03-25 06:19] LABS: ANION GAP 5 MEQ/L (8-16); BLOOD UREA NITROGEN 40 MG/DL (7-18); CARBON DIOXIDE LEVEL 36 MEQ/L (21-32); CHLORIDE LEVEL 99 MEQ/L (98-107); GLOMERULAR FILTRATION RATE 42.5 (>39); GLUCOSE, FASTING 142 MG/DL (70-100); POTASSIUM SERUM 3.6 MEQ/L (3.5-5.1); SODIUM LEVEL 140 MEQ/L (136-145)
[2017-03-25 08:06] LABS: TRANSFERRIN 251 mg/dL (200-370)
[2017-03-25] MEDS: predniSONE 20 MG TAB PO (08:07)
[2017-03-25] MEDS: HumaLOG INSULIN (NovoLOG) PER UNIT SC ×4 (08:07→21:27)
[2017-03-25] MEDS: IRON POLYSAC (NIFEREX) 150 MG CAP PO ×2 (08:07→21:25)
[2017-03-25] MEDS: ISOSORBIDE MON. (IMDUR) 60 MG XR TAB PO (08:10)
[2017-03-25] MEDS: ASPIRIN 81 MG ENTERIC TAB PO (08:10)
[2017-03-25] MEDS: MAGNESIUM OXIDE 400 MG TAB (MAG-OX) PO (08:11)
[2017-03-25] MEDS: SPIRONOLACTONE 25 MG TAB PO (08:11)
[2017-03-25] MEDS: BRIMONIDINE 0.1% OPHTH SOLN 5 ML OU ×2 (08:11→21:27)
[2017-03-25] MEDS: METOPROLOL TART 25 MG TABLET PO ×2 (08:11→21:26)
[2017-03-25] MEDS: ADVAIR HFA 230/21MCG INHALER INH ×2 (09:09→20:17)
[2017-03-25 12:14] LABS: BEDSIDE GLUCOSE 195 MG/DL (83-110)
[2017-03-25 15:25] LABS: BEDSIDE GLUCOSE 399 MG/DL (83-110)
[2017-03-25 16:34] LABS: BEDSIDE GLUCOSE 306 MG/DL (83-110)
[2017-03-25] MEDS: TIOTROPIUM INHALER/CAPSULE (SPIRIVA) INH (21:00)
[2017-03-25 21:14] LABS: BEDSIDE GLUCOSE 290 MG/DL (83-110)
[2017-03-25] MEDS: RIVAROXABAN 15 MG TAB (XARELTO) PO (21:25)
[2017-03-25] MEDS: LEVEMIR (INSULIN DETEMIR) 1 UNITS/0.01ML SC (21:26)
[2017-03-25] MEDS: buPROPion **XL** TABLET 150MG (WELLBUTRIN XL) PO (21:26)
[2017-03-25] MEDS: CitaloPRAM (CeleXA) 20 MG TAB PO (21:27)
[2017-03-26 05:43] LABS: BASO % 0.1 % (0.0-1.0); EOS % 0.2 % (0.0-3.0); HEMATOCRIT 33.5 % (36.0-47.0); HEMOGLOBIN 10.3 g/dl (12.0-16.0); IMMATURE GRANULOCYTE # 0.7 10^3/uL (0-0); IMMATURE GRANULOCYTE % 4.7 % (0-0); LYMPH # 1.6 10^3/uL (1.5-4.5); LYMPH % 11.6 % (24.0-44.0); MEAN CORPUSCULAR HEMOGLOBIN 24.8 pg (27.0-33.0); MEAN CORPUSCULAR HGB CONC 30.7 g/dl (32.0-36.5); MEAN CORPUSCULAR VOLUME 80.5 fl (80.0-96.0); MONO # 0.9 10^3/uL (0.0-0.8); MONO % 6.6 % (0.0-5.0); NEUTROPHILS # 10.7 10^3/uL (1.8-7.7); NEUTROPHILS % 76.8 % (36.0-66.0); PLATELET COUNT, AUTOMATED 272 10^3/uL (150-450); RED BLOOD COUNT 4.16 10^6/uL (4.00-5.40); RED CELL DISTRIBUTION WIDTH 19.2 % (11.5-14.5); WHITE BLOOD COUNT 13.9 10^3/uL (4.0-10.0)
[2017-03-26 06:04] LABS: ANION GAP 7 MEQ/L (8-16); BLOOD UREA NITROGEN 44 MG/DL (7-18); CALCIUM LEVEL 9.4 MG/DL (8.8-10.2); CARBON DIOXIDE LEVEL 34 MEQ/L (21-32); CHLORIDE LEVEL 98 MEQ/L (98-107); CREATININE FOR GFR 1.29 MG/DL (0.55-1.30); GLOMERULAR FILTRATION RATE 42.9 (>39); GLUCOSE, FASTING 182 MG/DL (70-100); POTASSIUM SERUM 3.5 MEQ/L (3.5-5.1); SODIUM LEVEL 139 MEQ/L (136-145)
[2017-03-26] MEDS: FUROSEMIDE 40 MG/4 ML VIAL (J1940) IV ×3 (06:11→18:00)
[2017-03-26] MEDS: SPIRONOLACTONE 25 MG TAB PO (08:11)
[2017-03-26] MEDS: ISOSORBIDE MON. (IMDUR) 60 MG XR TAB PO (08:12)
[2017-03-26] MEDS: ASPIRIN 81 MG ENTERIC TAB PO (08:12)
[2017-03-26] MEDS: MAGNESIUM OXIDE 400 MG TAB (MAG-OX) PO (08:13)
[2017-03-26] MEDS: IRON POLYSAC (NIFEREX) 150 MG CAP PO ×2 (08:13→21:07)
[2017-03-26] MEDS: METOPROLOL TART 25 MG TABLET PO (08:13)
[2017-03-26] MEDS: HumaLOG INSULIN (NovoLOG) PER UNIT SC ×4 (08:13→21:00)
[2017-03-26] MEDS: predniSONE 20 MG TAB PO (08:13)
[2017-03-26] MEDS: ADVAIR HFA 230/21MCG INHALER INH ×2 (08:15→20:44)
[2017-03-26 12:02] LABS: BEDSIDE GLUCOSE 260 MG/DL (83-110)
[2017-03-26] MEDS: BRIMONIDINE 0.1% OPHTH SOLN 5 ML OU ×2 (12:44→21:05)
[2017-03-26 17:09] LABS: BEDSIDE GLUCOSE 339 MG/DL (83-110)
[2017-03-26 20:56] LABS: BEDSIDE GLUCOSE 420 MG/DL (83-110)
[2017-03-26] MEDS: RIVAROXABAN 15 MG TAB (XARELTO) PO (21:03)
[2017-03-26] MEDS: buPROPion **XL** TABLET 150MG (WELLBUTRIN XL) PO (21:03)
[2017-03-26] MEDS: CitaloPRAM (CeleXA) 20 MG TAB PO (21:03)
[2017-03-26] MEDS: LEVEMIR (INSULIN DETEMIR) 1 UNITS/0.01ML SC (21:04)
[2017-03-27 02:23] LABS: BEDSIDE GLUCOSE 135 MG/DL (83-110)
[2017-03-27] MEDS: FUROSEMIDE 40 MG/4 ML VIAL (J1940) IV ×3 (06:18→11:43)
[2017-03-27 06:45] LABS: HEMATOCRIT 35.2 % (36.0-47.0); HEMOGLOBIN 10.7 g/dl (12.0-16.0); MEAN CORPUSCULAR HEMOGLOBIN 24.5 pg (27.0-33.0); MEAN CORPUSCULAR HGB CONC 30.4 g/dl (32.0-36.5); MEAN CORPUSCULAR VOLUME 80.5 fl (80.0-96.0); PLATELET COUNT, AUTOMATED 277 10^3/uL (150-450); RED BLOOD COUNT 4.37 10^6/uL (4.00-5.40); RED CELL DISTRIBUTION WIDTH 18.9 % (11.5-14.5); WHITE BLOOD COUNT 16.5 10^3/uL (4.0-10.0)
[2017-03-27 06:53] LABS: ADD MANUAL DIFFER YES; DIFF SLIDE NUMBER 30; POS COUNT POS FLAG; POSITIVE MORPH POS FLAG
[2017-03-27 07:10] LABS: ANION GAP 8 MEQ/L (8-16); BLOOD UREA NITROGEN 44 MG/DL (7-18); CALCIUM LEVEL 9.1 MG/DL (8.8-10.2); CARBON DIOXIDE LEVEL 33 MEQ/L (21-32); CHLORIDE LEVEL 98 MEQ/L (98-107); CREATININE FOR GFR 1.23 MG/DL (0.55-1.30); GLOMERULAR FILTRATION RATE 45.3 (>39); GLUCOSE, FASTING 99 MG/DL (70-100); MAGNESIUM LEVEL 2.2 MG/DL (1.8-2.4); POTASSIUM SERUM 3.5 MEQ/L (3.5-5.1); SODIUM LEVEL 139 MEQ/L (136-145)
[2017-03-27] MEDS: HumaLOG INSULIN (NovoLOG) PER UNIT SC ×2 (07:30→11:42)
[2017-03-27] MEDS: ADVAIR HFA 230/21MCG INHALER INH (07:37)
[2017-03-27 07:43] LABS: BANDS 2 % (< 11); LYMPHOCYTES 8 % (16-52); METAMYELOCYTES 2 % (0-0); MONOCYTES 3 % (0-8); MYELOCYTES 6 % (0-0); NEUTROPHILS 79 % (35-75); PLATELET ESTIMATE NORMAL (NORMAL)
[2017-03-27 07:44] LABS: ANISOCYTOSIS 1+
[2017-03-27] MEDS: MAGNESIUM OXIDE 400 MG TAB (MAG-OX) PO (09:07)
[2017-03-27] MEDS: ISOSORBIDE MON. (IMDUR) 60 MG XR TAB PO (09:08)
[2017-03-27] MEDS: ASPIRIN 81 MG ENTERIC TAB PO (09:08)
[2017-03-27] MEDS: SPIRONOLACTONE 25 MG TAB PO (09:08)
[2017-03-27] MEDS: predniSONE 20 MG TAB PO (09:09)
[2017-03-27] MEDS: IRON POLYSAC (NIFEREX) 150 MG CAP PO (09:09)
[2017-03-27] MEDS: BRIMONIDINE 0.1% OPHTH SOLN 5 ML OU (09:14)
== END 2017-03-27 12:36 | disposition home or self-care (01) | DRG 314 ==
LOC: M MSPAV 03-24 16:06 → M ED 15:10 → M ED INP 17:07 → M PCU 22:57
DX: I27.23 Pulmonary hypertension due to lung diseases and hypoxia (principal); I50.33 Acute on chronic diastolic (congestive) heart failure; Z68.42 Body mass index [BMI] 45.0-49.9, adult; I27.22 Pulmonary hypertension due to left heart disease; J44.9 Chronic obstructive pulmonary disease, unspecified; E11.9 Type 2 diabetes mellitus without complications; H40.9 Unspecified glaucoma; F32.9 Major depressive disorder, single episode, unspecified; D64.9 Anemia, unspecified; E87.6 Hypokalemia; I48.0 Paroxysmal atrial fibrillation; E78.5 Hyperlipidemia, unspecified; I11.0 Hypertensive heart disease with heart failure; F41.9 Anxiety disorder, unspecified; G47.33 Obstructive sleep apnea (adult) (pediatric); E66.01 Morbid (severe) obesity due to excess calories; E55.9 Vitamin D deficiency, unspecified; Z95.0 Presence of cardiac pacemaker; Z85.3 Personal history of malignant neoplasm of breast; Z79.82 Long term (current) use of aspirin; Z79.899 Other long term (current) drug therapy; Z88.0 Allergy status to penicillin; Z88.1 Allergy status to other antibiotic agents; Z88.2 Allergy status to sulfonamides; Z88.5 Allergy status to narcotic agent; Z88.8 Allergy status to other drugs, medicaments and biological substances; Z91.11 Patient's noncompliance with dietary regimen

== ENCOUNTER 2017-07-02 20:54 | Inpatient (IN) | payer MEDICARE, OTHER ==
[2017-07-02] MEDS: ALBUTEROL SULFATE 2.5 MG/0.5 ML INH NEB SOLN NEB ×3 (22:09)
[2017-07-02] MEDS: dexameTHASONE 20 MG/5 ML VIAL (J1100) IV (22:30)
[2017-07-02 22:31] LABS: CK-MB VALUE MASS < 1.0 NG/ML (<3.6); CPK CREATINE PHOSPHOKINASE 21 U/L (26-192); MB/CK RELATIVE INDEX 4.76 (< OR =4); TROPONIN I < 0.02 NG/ML (< 0.10)
[2017-07-02] MEDS: VANCOMYCIN HCL 1,000 MG, VIAL MATE ADAPTER 1 EACH in D5W 250 ML IV (22:45)
[2017-07-02] MEDS: NS 500 ML IV (22:45)
[2017-07-02] MEDS: ONDANSETRON 4MG/2ML VIAL (J2405) IV (22:45)
[2017-07-02] MEDS: MEROPENEM INJ 2 GM in NS 100 ML IV (23:45)
[2017-07-03] MEDS ORDERED: IPRATROPIUM 0.5MG/ALBUTEROL 2.5MG INH SOL UD 3ML (DUONEB)(J7620) NEB (00:45)
[2017-07-03] MEDS ORDERED: ACETAMINOPHEN TAB 650MG DOSE (2X325MG) PO (00:45)
[2017-07-03] MEDS: CEFTAROLINE FOSAMIL 600 MG in D5W MINI-BAG PLUS 50 ML IV (03:05)
[2017-07-03] MEDS: methylPREDNISolone INJ 125 MG/2 ML VIAL (J2930) IV ×2 (03:05→09:34)
[2017-07-03 06:27] LABS: BASO % 0.1 % (0.0-1.0); HEMATOCRIT 31.9 % (36.0-47.0); HEMOGLOBIN 9.8 g/dl (12.0-15.5); IMMATURE GRANULOCYTE % 0.8 % (0-3.0); LYMPH # 0.4 10^3/uL (1.5-4.5); LYMPH % 2.7 % (24.0-44.0); MEAN CORPUSCULAR HGB CONC 30.7 g/dl (32.0-36.5); MEAN CORPUSCULAR VOLUME 81.4 fl (80.0-96.0); MONO # 0.1 10^3/uL (0.0-0.8); MONO % 0.9 % (0.0-5.0); NEUTROPHILS # 13.4 10^3/uL (1.8-7.7); NEUTROPHILS % 95.5 % (36.0-66.0); PLATELET COUNT, AUTOMATED 112 10^3/uL (150-450); RED BLOOD COUNT 3.92 10^6/uL (4.00-5.40); RED CELL DISTRIBUTION WIDTH 18.8 % (11.5-14.5)
[2017-07-03 06:35] LABS: BEDSIDE GLUCOSE 246 MG/DL (83-110)
[2017-07-03 06:45] LABS: ANION GAP 4 MEQ/L (8-16); BLOOD UREA NITROGEN 14 MG/DL (7-18); CALCIUM LEVEL 8.8 MG/DL (8.8-10.2); CARBON DIOXIDE LEVEL 30 MEQ/L (21-32); CHLORIDE LEVEL 104 MEQ/L (98-107); CREATININE FOR GFR 1.06 MG/DL (0.55-1.30); GLOMERULAR FILTRATION RATE 53.8 (>39); GLUCOSE, FASTING 215 MG/DL (70-100); POTASSIUM SERUM 4.1 MEQ/L (3.5-5.1); SODIUM LEVEL 138 MEQ/L (136-145)
[2017-07-03 06:56] LABS: ABG BASE EXCESS 0.2 (-2.0-2.0); ABG HCO3 25.7 MEQ/L (22.0-26.0); ABG O2 SATURATION 91.5 % (95.0-99.0); ABG PARTIAL PRESSURE CO2 45.6 mmHg (35.0-45.0); ABG PARTIAL PRESSURE O2 69.3 mmHg (75.0-100.0); ABG STANDARD HCO3 24.5 MEQ/L (22.0-26.0); ABG TOTAL CO2 27.1 MEQ/L (23.0-31.0); ABG pH (ARTERIAL) 7.369 UNITS (7.350-7.450)
[2017-07-03 07:18] LABS: AMMONIA 15 uMOL/L (<32)
[2017-07-03 08:04] LABS: LACTIC ACID SEPSIS PROTOCOL 0.8 MMOL/L (0.4-2.0)
[2017-07-03] MEDS: IPRATROPIUM 0.5MG/ALBUTEROL 2.5MG INH SOL UD 3ML (DUONEB)(J7620) NEB ×3 (08:57→20:00)
[2017-07-03] MEDS ORDERED: ENOXAPARIN 40 MG/0.4 ML SYRINGE (J1650) SC (09:00)
[2017-07-03] MEDS: ASPIRIN 81 MG ENTERIC TAB PO (09:34)
[2017-07-03] MEDS: ISOSORBIDE MON. (IMDUR) 60 MG XR TAB PO (09:36)
[2017-07-03 09:44] LABS: HIVSOURCE0 NEGATIVE (NEGATIVE)
[2017-07-03 09:46] LABS: CONTROL LINE INT CTR LINE PRESENT; HIV SOURCE PT 1 NEGATIVE (NEGATIVE)
[2017-07-03] MEDS: LevoFLOXacin IV 500 MG in APPROPRIATE DILUENT 1 EA IV (12:14)
[2017-07-03] MEDS: methylPREDNISolone INJ 40 MG/1 ML VIAL (J2920) IV (16:46)
[2017-07-03] MEDS: HumaLOG INSULIN (NovoLOG) PER UNIT SC ×2 (18:13→22:28)
[2017-07-03] MEDS: buPROPion **XL** TABLET 150MG (WELLBUTRIN XL) PO (22:26)
[2017-07-03] MEDS: RIVAROXABAN 15 MG TAB (XARELTO) PO (22:27)
[2017-07-03] MEDS: CitaloPRAM (CeleXA) 20 MG TAB PO (22:27)
[2017-07-04] MEDS: methylPREDNISolone INJ 40 MG/1 ML VIAL (J2920) IV ×2 (00:07→07:44)
[2017-07-04 01:04] LABS: BEDSIDE GLUCOSE 287 MG/DL (83-110)
[2017-07-04 02:47] LABS: BEDSIDE GLUCOSE 281 MG/DL (83-110)
[2017-07-04 02:47] LABS: BEDSIDE GLUCOSE 389 MG/DL (83-110)
[2017-07-04] MEDS: IPRATROPIUM 0.5MG/ALBUTEROL 2.5MG INH SOL UD 3ML (DUONEB)(J7620) NEB ×4 (07:11→20:15)
[2017-07-04] MEDS: HumaLOG INSULIN (NovoLOG) PER UNIT SC ×4 (07:44→20:39)
[2017-07-04] MEDS: ASPIRIN 81 MG ENTERIC TAB PO (07:45)
[2017-07-04] MEDS: ISOSORBIDE MON. (IMDUR) 60 MG XR TAB PO (07:46)
[2017-07-04 09:04] LABS: BASO % 0.1 % (0.0-1.0); HEMATOCRIT 29.5 % (36.0-47.0); HEMOGLOBIN 8.9 g/dl (12.0-15.5); LYMPH # 0.6 10^3/uL (1.5-4.5); LYMPH % 3.6 % (24.0-44.0); MEAN CORPUSCULAR HEMOGLOBIN 24.7 pg (27.0-33.0); MEAN CORPUSCULAR HGB CONC 30.2 g/dl (32.0-36.5); MEAN CORPUSCULAR VOLUME 81.7 fl (80.0-96.0); MONO # 0.3 10^3/uL (0.0-0.8); MONO % 1.9 % (0.0-5.0); NEUTROPHILS % 92.4 % (36.0-66.0); PLATELET COUNT, AUTOMATED 164 10^3/uL (150-450); RED BLOOD COUNT 3.61 10^6/uL (4.00-5.40); RED CELL DISTRIBUTION WIDTH 18.2 % (11.5-14.5); WHITE BLOOD COUNT 17.3 10^3/uL (4.0-10.0)
[2017-07-04 09:30] LABS: ANION GAP 6 MEQ/L (8-16); BLOOD UREA NITROGEN 31 MG/DL (7-18); CALCIUM LEVEL 8.4 MG/DL (8.8-10.2); CARBON DIOXIDE LEVEL 29 MEQ/L (21-32); CHLORIDE LEVEL 105 MEQ/L (98-107); CREATININE FOR GFR 1.13 MG/DL (0.55-1.30); GLUCOSE, FASTING 268 MG/DL (70-100); POTASSIUM SERUM 4.4 MEQ/L (3.5-5.1); SODIUM LEVEL 140 MEQ/L (136-145)
[2017-07-04] MEDS: predniSONE 20 MG TAB PO (09:30)
[2017-07-04 09:31] LABS: C REACTIVE PROTEIN QUANTITATIV 6.83 MG/DL (0.00-0.30)
[2017-07-04 10:40] LABS: HEPATITIS B SURFACE ANTIGEN NEGATIVE (NEGATIVE)
[2017-07-04 11:08] LABS: HEP C VIRUS AB INDEX SOURCE PT < 0.0 INDEX (0.0-0.8)
[2017-07-04 11:46] LABS: BEDSIDE GLUCOSE 256 MG/DL (83-110)
[2017-07-04] MEDS ORDERED: ISOVUE-370 76% 100ML VIAL (Q9967) As Ordered (11:57)
[2017-07-04] MEDS: LevoFLOXacin IV 250 MG in APPROPRIATE DILUENT 1 EA IV (12:40)
[2017-07-04 16:42] LABS: BEDSIDE GLUCOSE 432 MG/DL (83-110)
[2017-07-04] MEDS: CitaloPRAM (CeleXA) 20 MG TAB PO (20:38)
[2017-07-04] MEDS: buPROPion **XL** TABLET 150MG (WELLBUTRIN XL) PO (20:39)
[2017-07-04] MEDS: RIVAROXABAN 15 MG TAB (XARELTO) PO (20:39)
[2017-07-04 20:52] LABS: BEDSIDE GLUCOSE 349 MG/DL (83-110)
[2017-07-05 06:04] LABS: BASO % 0.1 % (0.0-1.0); HEMATOCRIT 29.7 % (36.0-47.0); IMMATURE GRANULOCYTE % 3.5 % (0-3.0); LYMPH # 0.8 10^3/uL (1.5-4.5); LYMPH % 5.2 % (24.0-44.0); MEAN CORPUSCULAR HEMOGLOBIN 24.9 pg (27.0-33.0); MEAN CORPUSCULAR HGB CONC 30.3 g/dl (32.0-36.5); MEAN CORPUSCULAR VOLUME 82.3 fl (80.0-96.0); MONO # 0.5 10^3/uL (0.0-0.8); MONO % 3.1 % (0.0-5.0); NEUTROPHILS # 13.8 10^3/uL (1.8-7.7); NEUTROPHILS % 88.1 % (36.0-66.0); PLATELET COUNT, AUTOMATED 152 10^3/uL (150-450); RED BLOOD COUNT 3.61 10^6/uL (4.00-5.40); RED CELL DISTRIBUTION WIDTH 18.2 % (11.5-14.5); WHITE BLOOD COUNT 15.6 10^3/uL (4.0-10.0)
[2017-07-05 06:20] LABS: BEDSIDE GLUCOSE 319 MG/DL (83-110)
[2017-07-05 06:26] LABS: ANION GAP 5 MEQ/L (8-16); BLOOD UREA NITROGEN 33 MG/DL (7-18); C REACTIVE PROTEIN QUANTITATIV 2.73 MG/DL (0.00-0.30); CALCIUM LEVEL 8.8 MG/DL (8.8-10.2); CARBON DIOXIDE LEVEL 29 MEQ/L (21-32); CHLORIDE LEVEL 106 MEQ/L (98-107); CREATININE FOR GFR 1.07 MG/DL (0.55-1.30); GLOMERULAR FILTRATION RATE 53.2 (>39); GLUCOSE, FASTING 248 MG/DL (70-100); POTASSIUM SERUM 4.5 MEQ/L (3.5-5.1); SODIUM LEVEL 140 MEQ/L (136-145)
[2017-07-05] MEDS: IPRATROPIUM 0.5MG/ALBUTEROL 2.5MG INH SOL UD 3ML (DUONEB)(J7620) NEB ×3 (07:13→20:00)
[2017-07-05] MEDS: HumaLOG INSULIN (NovoLOG) PER UNIT SC ×4 (07:26→20:17)
[2017-07-05] MEDS: ASPIRIN 81 MG ENTERIC TAB PO (07:27)
[2017-07-05] MEDS: predniSONE 20 MG TAB PO (07:27)
[2017-07-05] MEDS: ISOSORBIDE MON. (IMDUR) 60 MG XR TAB PO (07:28)
[2017-07-05] MEDS: LEVEMIR (INSULIN DETEMIR) 1 UNITS/0.01ML SC (08:55)
[2017-07-05] MEDS: guaiFENesin ER 600 MG TAB PO ×2 (08:55→20:11)
[2017-07-05] MEDS: LevoFLOXacin IV 250 MG in APPROPRIATE DILUENT 1 EA IV (12:00)
[2017-07-05] MEDS: LevoFLOXacin 250 MG TABLET PO (12:20)
[2017-07-05] MEDS: SPIRONOLACTONE 25 MG TAB PO (13:29)
[2017-07-05] MEDS: FUROSEMIDE 20 MG TAB PO (13:29)
[2017-07-05] MEDS: ADVAIR HFA 230/21MCG INHALER INH ×2 (13:40→20:04)
[2017-07-05 16:19] LABS: BEDSIDE GLUCOSE 352 MG/DL (83-110)
[2017-07-05 16:59] LABS: BEDSIDE GLUCOSE 394 MG/DL (83-110)
[2017-07-05] MEDS: RIVAROXABAN 15 MG TAB (XARELTO) PO (20:11)
[2017-07-05] MEDS: CitaloPRAM (CeleXA) 20 MG TAB PO (20:11)
[2017-07-05] MEDS: buPROPion **XL** TABLET 150MG (WELLBUTRIN XL) PO (20:12)
[2017-07-05 21:25] LABS: BEDSIDE GLUCOSE 245 MG/DL (83-110)
[2017-07-06] MEDS: LevoFLOXacin 250 MG TABLET PO (05:12)
[2017-07-06] MEDS: CARBAMIDE PEROXIDE 6.5% OTIC SOLN 15ML AU (05:12)
[2017-07-06 06:08] LABS: HEMOGLOBIN 9.2 g/dl (12.0-15.5); MEAN CORPUSCULAR HEMOGLOBIN 24.9 pg (27.0-33.0); MEAN CORPUSCULAR HGB CONC 30.7 g/dl (32.0-36.5); MEAN CORPUSCULAR VOLUME 81.3 fl (80.0-96.0); PLATELET COUNT, AUTOMATED 160 10^3/uL (150-450); RED BLOOD COUNT 3.69 10^6/uL (4.00-5.40); RED CELL DISTRIBUTION WIDTH 18.5 % (11.5-14.5); WHITE BLOOD COUNT 11.3 10^3/uL (4.0-10.0)
[2017-07-06 06:24] LABS: ANION GAP 6 MEQ/L (8-16); BLOOD UREA NITROGEN 34 MG/DL (7-18); CALCIUM LEVEL 8.5 MG/DL (8.8-10.2); CARBON DIOXIDE LEVEL 30 MEQ/L (21-32); CHLORIDE LEVEL 107 MEQ/L (98-107); GLOMERULAR FILTRATION RATE 51.5 (>39); GLUCOSE, FASTING 143 MG/DL (70-100); POTASSIUM SERUM 3.8 MEQ/L (3.5-5.1); SODIUM LEVEL 143 MEQ/L (136-145)
[2017-07-06 06:25] LABS: ADD MANUAL DIFFER YES; DIFF SLIDE NUMBER 42; POS COUNT POS FLAG; POSITIVE MORPH POS FLAG
[2017-07-06] MEDS: IPRATROPIUM 0.5MG/ALBUTEROL 2.5MG INH SOL UD 3ML (DUONEB)(J7620) NEB (07:31)
[2017-07-06] MEDS: ADVAIR HFA 230/21MCG INHALER INH (07:31)
[2017-07-06 07:32] LABS: ANISOCYTOSIS 1+; ATYPICAL LYMPH 3 % (0-5); EOSINOPHILS 1 % (0-5); LYMPHOCYTES 18 % (16-52); METAMYELOCYTES 1 % (0-0); MICROCYTOSIS 1+; MYELOCYTES 4 % (0-0); NEUTROPHILS 73 % (35-75); PLATELET ESTIMATE NORMAL (NORMAL); POLYCHROMASIA 1+
[2017-07-06] MEDS: HumaLOG INSULIN (NovoLOG) PER UNIT SC (08:14)
[2017-07-06] MEDS: guaiFENesin ER 600 MG TAB PO (08:15)
[2017-07-06] MEDS: ASPIRIN 81 MG ENTERIC TAB PO (08:16)
[2017-07-06] MEDS: SPIRONOLACTONE 25 MG TAB PO (08:16)
[2017-07-06] MEDS: ISOSORBIDE MON. (IMDUR) 60 MG XR TAB PO (08:16)
[2017-07-06] MEDS: FUROSEMIDE 20 MG TAB PO (08:16)
[2017-07-06] MEDS: LEVEMIR (INSULIN DETEMIR) 1 UNITS/0.01ML SC (08:20)
[2017-07-06] MEDS: predniSONE 20 MG TAB PO (08:20)
[2017-07-07 09:33] LABS: HIV 1&2 SCREEN CENTAUR NEGATIVE (NEGATIVE)
[2017-07-08 08:06] LABS: IgG SERUM (part of Subclasses) 251 mg/dL (700-1600); IgG Subclass 1 166 mg/dL (248-810); IgG Subclass 2 46 mg/dL (130-555); IgG Subclass 3 34 mg/dL (15-102); IgG Subclass 4 < 1 mg/dL (2-96)
== END 2017-07-06 11:55 | disposition home or self-care (01) | DRG 193 ==
LOC: M ED INP 07-03 00:43 → M MSPAV 07-03 02:17 → M ED 20:54
DX: J18.9 Pneumonia, unspecified organism (principal); J96.20 Acute and chronic respiratory failure, unspecified whether with hypoxia or hypercapnia; J44.1 Chronic obstructive pulmonary disease with (acute) exacerbation; Z68.42 Body mass index [BMI] 45.0-49.9, adult; I50.32 Chronic diastolic (congestive) heart failure; F32.9 Major depressive disorder, single episode, unspecified; F41.9 Anxiety disorder, unspecified; E11.9 Type 2 diabetes mellitus without complications; I51.7 Cardiomegaly; E66.01 Morbid (severe) obesity due to excess calories; B96.3 Hemophilus influenzae [H. influenzae] as the cause of diseases classified elsewhere; Z87.891 Personal history of nicotine dependence; Z95.0 Presence of cardiac pacemaker; Z85.3 Personal history of malignant neoplasm of breast; Z90.710 Acquired absence of both cervix and uterus; Z90.12 Acquired absence of left breast and nipple; Z88.0 Allergy status to penicillin; Z88.2 Allergy status to sulfonamides; Z88.5 Allergy status to narcotic agent; Z88.1 Allergy status to other antibiotic agents; Y95 Nosocomial condition; Z91.19 Patient's noncompliance with other medical treatment and regimen; Z79.82 Long term (current) use of aspirin; Z79.01 Long term (current) use of anticoagulants; Z79.899 Other long term (current) drug therapy

== ENCOUNTER → 2017-07-02 | Outpatient (CLI) | payer MEDICARE, OTHER ==
[2017-07-02 17:45] LABS: ANION GAP 7 MEQ/L (8-16); BLOOD UREA NITROGEN 14 MG/DL (7-18); CALCIUM LEVEL 8.8 MG/DL (8.8-10.2); CARBON DIOXIDE LEVEL 30 MEQ/L (21-32); CHLORIDE LEVEL 103 MEQ/L (98-107); CREATININE FOR GFR 1.03 MG/DL (0.55-1.30); GLOMERULAR FILTRATION RATE 55.6 (>39); GLUCOSE, FASTING 127 MG/DL (70-100); NT-PRO BNP 991 PG/ML (<450); POTASSIUM SERUM 3.9 MEQ/L (3.5-5.1); SODIUM LEVEL 140 MEQ/L (136-145)
[2017-07-02 17:59] LABS: HEMATOCRIT 34.2 % (36.0-47.0); HEMOGLOBIN 10.4 g/dl (12.0-15.5); MEAN CORPUSCULAR HEMOGLOBIN 24.7 pg (27.0-33.0); MEAN CORPUSCULAR HGB CONC 30.4 g/dl (32.0-36.5); MEAN CORPUSCULAR VOLUME 81.2 fl (80.0-96.0); PLATELET COUNT, AUTOMATED 136 10^3/uL (150-450); RED BLOOD COUNT 4.21 10^6/uL (4.00-5.40); RED CELL DISTRIBUTION WIDTH 19.6 % (11.5-14.5); WHITE BLOOD COUNT 16.5 10^3/uL (4.0-10.0)
== END ==
LOC: M LAB 16:40
DX: R06.02 Shortness of breath (principal); R91.8 Other nonspecific abnormal finding of lung field; Z87.09 Personal history of other diseases of the respiratory system; I51.7 Cardiomegaly; Z95.0 Presence of cardiac pacemaker

== ENCOUNTER 2017-07-22 11:52 | Inpatient (IN) | payer MEDICARE, OTHER ==
[2017-07-22 12:45] LABS: BASO % 0.1 % (0.0-1.0); EOS % 0.2 % (0.0-3.0); HEMATOCRIT 31.4 % (36.0-47.0); HEMOGLOBIN 9.8 g/dl (12.0-15.5); IMMATURE GRANULOCYTE % 0.7 % (0-3.0); LYMPH # 0.9 10^3/uL (1.5-4.5); LYMPH % 4.6 % (24.0-44.0); MEAN CORPUSCULAR HEMOGLOBIN 24.9 pg (27.0-33.0); MEAN CORPUSCULAR HGB CONC 31.2 g/dl (32.0-36.5); MEAN CORPUSCULAR VOLUME 79.9 fl (80.0-96.0); MONO % 5.1 % (0.0-5.0); NEUTROPHILS # 17.9 10^3/uL (1.8-7.7); NEUTROPHILS % 89.3 % (36.0-66.0); PLATELET COUNT, AUTOMATED 131 10^3/uL (150-450); RED BLOOD COUNT 3.93 10^6/uL (4.00-5.40); RED CELL DISTRIBUTION WIDTH 18.6 % (11.5-14.5)
[2017-07-22] MEDS: FUROSEMIDE 100 MG/10 ML VIAL (J1940) IV (12:46)
[2017-07-22] MEDS: ONDANSETRON 4MG/2ML VIAL (J2405) IV (13:01)
[2017-07-22] MEDS: IPRATROPIUM 0.5MG/ALBUTEROL 2.5MG INH SOL UD 3ML (DUONEB)(J7620) NEB ×2 (13:04→13:17)
[2017-07-22 13:12] LABS: ABG BASE EXCESS 1.4 (-2.0-2.0); ABG HCO3 23.8 MEQ/L (22.0-26.0); ABG O2 SATURATION 96.8 % (95.0-99.0); ABG PARTIAL PRESSURE O2 87.6 mmHg (75.0-100.0); ABG STANDARD HCO3 25.7 MEQ/L (22.0-26.0); ABG TOTAL CO2 24.7 MEQ/L (23.0-31.0); ABG pH (ARTERIAL) 7.517 UNITS (7.350-7.450)
[2017-07-22 13:17] LABS: ALBUMIN 2.8 GM/DL (3.2-5.2); ALBUMIN/GLOBULIN RATIO 0.82 (1.00-1.93); ALKALINE PHOSPHATASE 56 U/L (45-117); ALT/SGPT 10 U/L (12-78); ANION GAP 5 MEQ/L (8-16); AST/SGOT 3 U/L (7-37); BILIRUBIN,DIRECT 0.3 MG/DL (0.0-0.2); BILIRUBIN,TOTAL 1.1 MG/DL (0.2-1.0); BLOOD UREA NITROGEN 12 MG/DL (7-18); CALCIUM LEVEL 8.5 MG/DL (8.8-10.2); CARBON DIOXIDE LEVEL 29 MEQ/L (21-32); CHLORIDE LEVEL 101 MEQ/L (98-107); CK-MB VALUE MASS < 1.0 NG/ML (<3.6); CPK CREATINE PHOSPHOKINASE 19 U/L (26-192); CREATININE FOR GFR 1.08 MG/DL (0.55-1.30); GLOMERULAR FILTRATION RATE 52.7 (>39); GLUCOSE, FASTING 151 MG/DL (70-100); MB/CK RELATIVE INDEX 5.26 (< OR =4); NT-PRO BNP 3290 PG/ML (<450); POTASSIUM SERUM 3.8 MEQ/L (3.5-5.1); SODIUM LEVEL 135 MEQ/L (136-145); TOTAL PROTEIN 6.2 GM/DL (6.4-8.2); TROPONIN I < 0.02 NG/ML (< 0.10)
[2017-07-22 13:20] LABS: LACTIC ACID SEPSIS PROTOCOL 2.2 MMOL/L (0.4-2.0)
[2017-07-22] MEDS: MOXIFLOXACIN HCL 400 MG in APPROPRIATE DILUENT 1 EA IV (15:16)
[2017-07-22] MEDS: ACETAMINOPHEN 325 MG TAB PO (17:25)
[2017-07-22] MEDS ORDERED: CARBAMIDE PEROXIDE 6.5% OTIC SOLN 15ML AU (18:45)
[2017-07-22] MEDS ORDERED: ALBUTEROL 90 MCG/ACT 8GM HFA INHALER INH (18:45)
[2017-07-22] MEDS ORDERED: IPRATROPIUM 0.5MG/ALBUTEROL 2.5MG INH SOL UD 3ML (DUONEB)(J7620) INH (18:45)
[2017-07-22] MEDS ORDERED: VANCOMYCIN HCL 1,000 MG in IV FLUID PLACE HOLDER 1 EA IV (19:00)
[2017-07-22 19:55] LABS: BEDSIDE GLUCOSE 178 MG/DL (83-110)
[2017-07-22] MEDS: ADVAIR HFA 230/21MCG INHALER INH (21:22)
[2017-07-22] MEDS: VANCOMYCIN HCL 1,000 MG, VIAL MATE ADAPTER 1 EACH in D5W 250 ML IV ×2 (22:11→22:58)
[2017-07-22] MEDS: buPROPion **XL** TABLET 150MG (WELLBUTRIN XL) PO (22:11)
[2017-07-22] MEDS: guaiFENesin ER 600 MG TAB PO (22:11)
[2017-07-22] MEDS: CitaloPRAM (CeleXA) 20 MG TAB PO (22:11)
[2017-07-22] MEDS: RIVAROXABAN 15 MG TAB (XARELTO) PO (22:11)
[2017-07-22] MEDS: FUROSEMIDE 40 MG/4 ML VIAL (J1940) IV (22:11)
[2017-07-22] MEDS: BRIMONIDINE 0.1% OPHTH SOLN 5 ML OU (22:58)
[2017-07-23] MEDS: ACETAMINOPHEN TAB 650MG DOSE (2X325MG) PO (04:02)
[2017-07-23 05:52] LABS: HEMOGLOBIN 8.4 g/dl (12.0-15.5); MEAN CORPUSCULAR HEMOGLOBIN 24.8 pg (27.0-33.0); MEAN CORPUSCULAR HGB CONC 31.1 g/dl (32.0-36.5); MEAN CORPUSCULAR VOLUME 79.6 fl (80.0-96.0); PLATELET COUNT, AUTOMATED 126 10^3/uL (150-450); RED BLOOD COUNT 3.39 10^6/uL (4.00-5.40); RED CELL DISTRIBUTION WIDTH 18.5 % (11.5-14.5); WHITE BLOOD COUNT 14.9 10^3/uL (4.0-10.0)
[2017-07-23 06:11] LABS: ANION GAP 8 MEQ/L (8-16); BLOOD UREA NITROGEN 16 MG/DL (7-18); CALCIUM LEVEL 8.1 MG/DL (8.8-10.2); CARBON DIOXIDE LEVEL 28 MEQ/L (21-32); CHLORIDE LEVEL 101 MEQ/L (98-107); CREATININE FOR GFR 1.11 MG/DL (0.55-1.30); GLUCOSE, FASTING 152 MG/DL (70-100); POTASSIUM SERUM 3.4 MEQ/L (3.5-5.1); SODIUM LEVEL 137 MEQ/L (136-145)
[2017-07-23] MEDS: ADVAIR HFA 230/21MCG INHALER INH ×2 (08:47→21:10)
[2017-07-23] MEDS: SPIRONOLACTONE 25 MG TAB PO (09:34)
[2017-07-23] MEDS: FUROSEMIDE 40 MG/4 ML VIAL (J1940) IV ×2 (09:34→23:21)
[2017-07-23] MEDS: ASPIRIN 81 MG ENTERIC TAB PO (09:34)
[2017-07-23] MEDS: POTASSIUM CHLORIDE 10 MEQ SR TABLET PO (09:34)
[2017-07-23] MEDS: guaiFENesin ER 600 MG TAB PO ×2 (09:34→21:19)
[2017-07-23] MEDS: VANCOMYCIN HCL 1,000 MG, VIAL MATE ADAPTER 1 EACH in D5W 250 ML IV ×2 (09:35→23:21)
[2017-07-23] MEDS: MAGNESIUM OXIDE 400 MG TAB (MAG-OX) PO (09:35)
[2017-07-23] MEDS: BRIMONIDINE 0.1% OPHTH SOLN 5 ML OU ×2 (09:35→21:20)
[2017-07-23] MEDS ORDERED: GLUCAGON FOR INJ 1 MG VIAL (J1610) SC (11:30)
[2017-07-23] MEDS ORDERED: GLUCOSE 4 GM CHEW TABLET PO (11:30)
[2017-07-23] MEDS ORDERED: DEXTROSE 50% 50 ML SYRINGE IV (11:30)
[2017-07-23 12:10] LABS: BEDSIDE GLUCOSE 130 MG/DL (83-110)
[2017-07-23] MEDS: HumaLOG INSULIN (NovoLOG) PER UNIT SC ×3 (13:08→21:00)
[2017-07-23] MEDS ORDERED: LevoFLOXacin IV 500 MG in APPROPRIATE DILUENT 1 EA IV (15:00)
[2017-07-23] MEDS: ONDANSETRON 4MG/2ML VIAL (J2405) IV (16:24)
[2017-07-23] MEDS: LevoFLOXacin IV 750 MG in APPROPRIATE DILUENT 1 EA IV (16:24)
[2017-07-23] MEDS: RIVAROXABAN 15 MG TAB (XARELTO) PO (16:24)
[2017-07-23 21:09] LABS: BEDSIDE GLUCOSE 161 MG/DL (83-110)
[2017-07-23] MEDS: CitaloPRAM (CeleXA) 20 MG TAB PO (21:18)
[2017-07-23] MEDS: buPROPion **XL** TABLET 150MG (WELLBUTRIN XL) PO (21:19)
[2017-07-24] MEDS: ACETAMINOPHEN TAB 650MG DOSE (2X325MG) PO (01:33)
[2017-07-24 02:49] LABS: BEDSIDE GLUCOSE 128 MG/DL (83-110)
[2017-07-24 05:46] LABS: HEMATOCRIT 28.4 % (36.0-47.0); HEMOGLOBIN 8.6 g/dl (12.0-15.5); MEAN CORPUSCULAR HEMOGLOBIN 24.4 pg (27.0-33.0); MEAN CORPUSCULAR HGB CONC 30.3 g/dl (32.0-36.5); MEAN CORPUSCULAR VOLUME 80.7 fl (80.0-96.0); PLATELET COUNT, AUTOMATED 133 10^3/uL (150-450); RED BLOOD COUNT 3.52 10^6/uL (4.00-5.40); RED CELL DISTRIBUTION WIDTH 18.3 % (11.5-14.5); WHITE BLOOD COUNT 8.8 10^3/uL (4.0-10.0)
[2017-07-24 06:00] LABS: ANION GAP 6 MEQ/L (8-16); BLOOD UREA NITROGEN 21 MG/DL (7-18); CALCIUM LEVEL 8.7 MG/DL (8.8-10.2); CARBON DIOXIDE LEVEL 30 MEQ/L (21-32); CHLORIDE LEVEL 102 MEQ/L (98-107); CREATININE FOR GFR 1.19 MG/DL (0.55-1.30); GLOMERULAR FILTRATION RATE 47.1 (>39); GLUCOSE, FASTING 138 MG/DL (70-100); POTASSIUM SERUM 3.4 MEQ/L (3.5-5.1); SODIUM LEVEL 138 MEQ/L (136-145)
[2017-07-24] MEDS: ADVAIR HFA 230/21MCG INHALER INH ×2 (07:10→21:00)
[2017-07-24] MEDS: HumaLOG INSULIN (NovoLOG) PER UNIT SC ×4 (07:30→20:35)
[2017-07-24 09:27] LABS: VANCOMYCIN LEVEL TROUGH 20.7 UG/ML (10.0-20.0)
[2017-07-24] MEDS: BRIMONIDINE 0.1% OPHTH SOLN 5 ML OU ×2 (09:48→20:44)
[2017-07-24] MEDS: FUROSEMIDE 40 MG/4 ML VIAL (J1940) IV (09:48)
[2017-07-24] MEDS: POTASSIUM CHLORIDE 10 MEQ SR TABLET PO (09:49)
[2017-07-24] MEDS: ASPIRIN 81 MG ENTERIC TAB PO (09:49)
[2017-07-24] MEDS: guaiFENesin ER 600 MG TAB PO ×2 (09:49→20:34)
[2017-07-24] MEDS: MAGNESIUM OXIDE 400 MG TAB (MAG-OX) PO (09:49)
[2017-07-24] MEDS: SPIRONOLACTONE 25 MG TAB PO (09:50)
[2017-07-24 12:14] LABS: BEDSIDE GLUCOSE 163 MG/DL (83-110)
[2017-07-24] MEDS: LevoFLOXacin 500 MG TABLET PO (13:38)
[2017-07-24 16:30] LABS: BEDSIDE GLUCOSE 129 MG/DL (83-110)
[2017-07-24] MEDS: RIVAROXABAN 15 MG TAB (XARELTO) PO (18:53)
[2017-07-24 20:24] LABS: BEDSIDE GLUCOSE 160 MG/DL (83-110)
[2017-07-24] MEDS ORDERED: SLF 3 ML SYR IV (20:30)
[2017-07-24] MEDS: buPROPion **XL** TABLET 150MG (WELLBUTRIN XL) PO (20:34)
[2017-07-24] MEDS: CitaloPRAM (CeleXA) 20 MG TAB PO (20:34)
[2017-07-24] MEDS: NYSTATIN 500,000 U/5 ML SUSP UDC SS (20:35)
[2017-07-24] MEDS: SLF 3 ML SYR IV (22:00)
[2017-07-25] MEDS: SLF 3 ML SYR IV (06:00)
[2017-07-25] MEDS: LevoFLOXacin 500 MG TABLET PO (06:00)
[2017-07-25] MEDS: HumaLOG INSULIN (NovoLOG) PER UNIT SC (07:30)
[2017-07-25 07:39] LABS: HEMATOCRIT 28.5 % (36.0-47.0); HEMOGLOBIN 8.6 g/dl (12.0-15.5); MEAN CORPUSCULAR HEMOGLOBIN 24.5 pg (27.0-33.0); MEAN CORPUSCULAR HGB CONC 30.2 g/dl (32.0-36.5); MEAN CORPUSCULAR VOLUME 81.2 fl (80.0-96.0); PLATELET COUNT, AUTOMATED 171 10^3/uL (150-450); RED BLOOD COUNT 3.51 10^6/uL (4.00-5.40); RED CELL DISTRIBUTION WIDTH 18.2 % (11.5-14.5); WHITE BLOOD COUNT 6.8 10^3/uL (4.0-10.0)
[2017-07-25 08:07] LABS: ANION GAP 5 MEQ/L (8-16); BLOOD UREA NITROGEN 21 MG/DL (7-18); CALCIUM LEVEL 8.3 MG/DL (8.8-10.2); CARBON DIOXIDE LEVEL 30 MEQ/L (21-32); CHLORIDE LEVEL 104 MEQ/L (98-107); CREATININE FOR GFR 1.18 MG/DL (0.55-1.30); GLOMERULAR FILTRATION RATE 47.5 (>39); GLUCOSE, FASTING 134 MG/DL (70-100); POTASSIUM SERUM 3.6 MEQ/L (3.5-5.1); SODIUM LEVEL 139 MEQ/L (136-145)
[2017-07-25] MEDS: ADVAIR HFA 230/21MCG INHALER INH (08:22)
[2017-07-25] MEDS: NYSTATIN 500,000 U/5 ML SUSP UDC SS (08:50)
[2017-07-25] MEDS: POTASSIUM CHLORIDE 10 MEQ SR TABLET PO (08:50)
[2017-07-25] MEDS: MAGNESIUM OXIDE 400 MG TAB (MAG-OX) PO (08:51)
[2017-07-25] MEDS: FUROSEMIDE 40 MG/4 ML VIAL (J1940) IV (09:00)
[2017-07-25] MEDS: BRIMONIDINE 0.1% OPHTH SOLN 5 ML OU (09:00)
[2017-07-25] MEDS: ASPIRIN 81 MG ENTERIC TAB PO (09:00)
[2017-07-25] MEDS: SPIRONOLACTONE 25 MG TAB PO (09:00)
[2017-07-25] MEDS: guaiFENesin ER 600 MG TAB PO (09:00)
== END 2017-07-25 11:35 | disposition home or self-care (01) | DRG 291 ==
LOC: M ED 11:52 → M PED 07-24 20:57 → M ED INP 16:27 → M PCU 21:49
DX: I11.0 Hypertensive heart disease with heart failure (principal); J18.9 Pneumonia, unspecified organism; J44.0 Chronic obstructive pulmonary disease with (acute) lower respiratory infection; E87.2 Acidosis; I50.33 Acute on chronic diastolic (congestive) heart failure; I48.91 Unspecified atrial fibrillation; E87.6 Hypokalemia; F32.9 Major depressive disorder, single episode, unspecified; E11.9 Type 2 diabetes mellitus without complications; G47.33 Obstructive sleep apnea (adult) (pediatric); D50.9 Iron deficiency anemia, unspecified; H40.9 Unspecified glaucoma; Z79.82 Long term (current) use of aspirin; Z79.899 Other long term (current) drug therapy; Z88.0 Allergy status to penicillin; Z88.2 Allergy status to sulfonamides; Z88.1 Allergy status to other antibiotic agents; Z88.5 Allergy status to narcotic agent; Z95.0 Presence of cardiac pacemaker; Z79.01 Long term (current) use of anticoagulants; Z85.3 Personal history of malignant neoplasm of breast; Z87.891 Personal history of nicotine dependence

== ENCOUNTER 2017-08-29 12:18 | Outpatient (RCR) | payer MEDICARE, OTHER | END 2017-09-16 | LOC: M CR 12:18 → M PR 09-11 14:50 | DX: Z51.89 Encounter for other specified aftercare (principal); J43.1 Panlobular emphysema | CPT/HCPCS: G0424 ==

== ENCOUNTER → 2017-10-22 | Outpatient (REF) | payer MEDICARE, OTHER ==
[2017-10-22 16:20] LABS: HEMATOCRIT 36.9 % (36.0-47.0); HEMOGLOBIN 11.6 g/dl (12.0-15.5); MEAN CORPUSCULAR HEMOGLOBIN 26.6 pg (27.0-33.0); MEAN CORPUSCULAR HGB CONC 31.4 g/dl (32.0-36.5); MEAN CORPUSCULAR VOLUME 84.6 fl (80.0-96.0); RED BLOOD COUNT 4.36 10^6/uL (4.00-5.40); RED CELL DISTRIBUTION WIDTH 17.5 % (11.5-14.5); WHITE BLOOD COUNT 7.6 10^3/uL (4.0-10.0)
[2017-10-22 16:47] LABS: ANION GAP 10 MEQ/L (8-16); BLOOD UREA NITROGEN 20 MG/DL (7-18); CALCIUM LEVEL 9.3 MG/DL (8.8-10.2); CARBON DIOXIDE LEVEL 35 MEQ/L (21-32); CHLORIDE LEVEL 97 MEQ/L (98-107); CREATININE FOR GFR 1.13 MG/DL (0.55-1.30); GLUCOSE, FASTING 132 MG/DL (70-100); NT-PRO BNP 273 PG/ML (<450); POTASSIUM SERUM 3.4 MEQ/L (3.5-5.1); SODIUM LEVEL 142 MEQ/L (136-145)
[2017-10-22 16:51] LABS: IMMATURE PLATELET FRACTION % 5.6 % (0.0-9.6); PLATELET COUNT, AUTOMATED 82 10^3/uL (150-450)
== END ==
LOC: M LABDRAW1 15:22
DX: I11.0 Hypertensive heart disease with heart failure (principal); I50.9 Heart failure, unspecified; E87.0 Hyperosmolality and hypernatremia
CPT/HCPCS: 80048

== ENCOUNTER → 2018-01-07 | Outpatient (CLI) | payer MEDICARE, OTHER | LOC: M SMT 13:38 | DX: R06.02 Shortness of breath (principal); I50.9 Heart failure, unspecified; J44.9 Chronic obstructive pulmonary disease, unspecified | CPT/HCPCS: 71046 ==

== ENCOUNTER → 2018-03-24 | Outpatient (REF) | payer MEDICARE, OTHER ==
[~2018-03-24] MED LIST changes: -ACET1TAB17 PO; +ACET1TAB55 PO; +ADVA230A INH; +ALDA25TA2 PO; -ANAS1TAB PO; +ANAS1TAB2 PO; +DEBR6.5S4 AU; -DILT120C PO; +DILT120C77 PO; +DILT1TAB12 PO; +DILT60TA PO; +DOXY-350 PO; -DRIS50002 PO; +DRIS50003 PO; +EAR6.5DR10 AU; +FURO20TA2 PO; +GUAI1200 PO; +IPRA0.00 INH; -IPRASOL4 INH; -ISOVUE-300 61% 50ML VIAL (Q9967) As Ordered ONE; +KLOR10TA76 PO; -LASI20TA PO; +LASI20TA3 PO; -LASI40TA PO; +LASI40TA9 PO; -LEVA1TAB PO; +LEVA250T13 PO; +LEVO250T12 PO; -LIDOCAINE 1% SDV INJ 30 ML VIAL As Ordered ONE; +METO25TA4 PO; +MILK120011 PO; -MILKSUS PO; +MUCI600T37 PO; -MUPIROCIN 2% OINT 22 GM TUBE As Ordered ONE; +NAPR-885 PO; -NAPR500T3 PO; +NYST50SS SS; +OXYC1TAB23 PO; -PANT40TA2 PO; +PANT40TA3 PO; +PILO4SOL6 OD; -POTA10CA PO; +SPIR-10 PO; -TIMO0.5S4 OU; +TIMO0.5S42 OU; -VANCOMYCIN 1000 MG/20 ML VIAL (J3370) As Ordered ONE
[2018-03-24 12:35] LABS: BASO % 0.5 % (0.0-1.0); EOS # 0.2 10^3/uL (0.0-0.50); EOS % 3.5 % (0.0-3.0); HEMATOCRIT 36.3 % (36.0-47.0); HEMOGLOBIN 11.4 g/dl (12.0-15.5); LYMPH # 0.9 10^3/uL (1.5-4.5); LYMPH % 14.3 % (24.0-44.0); MEAN CORPUSCULAR HEMOGLOBIN 27.4 pg (27.0-33.0); MEAN CORPUSCULAR HGB CONC 31.4 g/dl (32.0-36.5); MEAN CORPUSCULAR VOLUME 87.3 fl (80.0-96.0); MONO # 0.4 10^3/uL (0.0-0.8); MONO % 6.1 % (0.0-5.0); NEUTROPHILS # 4.9 10^3/uL (1.8-7.7); NEUTROPHILS % 75.1 % (36.0-66.0); PLATELET COUNT, AUTOMATED 125 10^3/uL (150-450); RED BLOOD COUNT 4.16 10^6/uL (4.00-5.40); WHITE BLOOD COUNT 6.5 10^3/uL (4.0-10.0)
[2018-03-24 12:42] LABS: ALBUMIN 3.4 GM/DL (3.2-5.2); ALT/SGPT 12 U/L (12-78); BILIRUBIN,TOTAL 0.8 MG/DL (0.2-1.0); BLOOD UREA NITROGEN 16 MG/DL (7-18); CALCIUM LEVEL 8.8 MG/DL (8.8-10.2); CARBON DIOXIDE LEVEL 32 MEQ/L (21-32); CHLORIDE LEVEL 103 MEQ/L (98-107); CHOLESTEROL LEVEL 118 MG/DL (<200); CHOLESTEROL RISK RATIO 2.809 (<5); CREATININE FOR GFR 0.94 MG/DL (0.55-1.30); GLOMERULAR FILTRATION RATE > 60.0 (>39); GLUCOSE, FASTING 114 MG/DL (70-100); HDL CHOLESTEROL 42 MG/DL (>40); LDL CHOLESTEROL 63 MG/DL (<100); NON-HDL-C 76 MG/DL; POTASSIUM SERUM 3.9 MEQ/L (3.5-5.1); SODIUM LEVEL 142 MEQ/L (136-145); TOTAL PROTEIN 5.4 GM/DL (6.4-8.2); TRIGLYCERIDES LEVEL 67 MG/DL (<150)
[2018-03-24 12:49] LABS: MALB URINE SIEMENS 10.9 MG/L; MAU/CREAT RATIO 10.4 MCG/MG (0.0-30.0)
[2018-03-24 12:55] LABS: HEMOGLOBIN A1c 6.5 %
== END ==
LOC: M LABDRAW1 10:03
PROVIDERS: ATTEND Family Medicine
DX: E11.69 Type 2 diabetes mellitus with other specified complication (principal); I10 Essential (primary) hypertension; J44.1 Chronic obstructive pulmonary disease with (acute) exacerbation

== ENCOUNTER 2018-08-29 18:34 | Emergency (ER) | payer MEDICARE, OTHER ==
[~2018-08-29] VITALS: Ht 157.5 cm; Wt 112.7 kg
[~2018-08-29 18:34] MED LIST changes: -ASPI1TAB PO; +ASPI81TA26 PO; -BONI150T PO; +BONI1TAB PO; +NYST-15 TOP; -NYST10PW TOP; +PRED-351 PO; -PRED10TA PO; +ZANT150T40 PO; -ZANTTAB PO
[2018-08-29 19:26] LABS: BASO % 0.6 % (0.0-1.0); EOS # 0.2 10^3/uL (0.0-0.50); EOS % 3.1 % (0.0-3.0); HEMATOCRIT 35.3 % (36.0-47.0); HEMOGLOBIN 11.1 g/dl (12.0-15.5); LYMPH % 13.7 % (24.0-44.0); MEAN CORPUSCULAR HEMOGLOBIN 28.4 pg (27.0-33.0); MEAN CORPUSCULAR HGB CONC 31.4 g/dl (32.0-36.5); MEAN CORPUSCULAR VOLUME 90.3 fl (80.0-96.0); MONO # 0.4 10^3/uL (0.0-0.8); MONO % 5.4 % (0.0-5.0); NEUTROPHILS # 5.5 10^3/uL (1.8-7.7); NEUTROPHILS % 76.8 % (36.0-66.0); PLATELET COUNT, AUTOMATED 131 10^3/uL (150-450); RED BLOOD COUNT 3.91 10^6/uL (4.00-5.40); WHITE BLOOD COUNT 7.2 10^3/uL (4.0-10.0)
[2018-08-29 19:36] LABS: INR 1.52; PARTIAL THROMBOPLASTIN TIME 31.9 SECONDS (25.0-38.4)
[2018-08-29 19:46] LABS: ERYTHROCYTE SEDIMENTATION RATE 13 mm/hr (0-30)
[2018-08-29 19:55] LABS: ALBUMIN 3.3 GM/DL (3.2-5.2); BILIRUBIN,DIRECT 0.2 MG/DL (0.0-0.2); BILIRUBIN,TOTAL 0.6 MG/DL (0.2-1.0); C REACTIVE PROTEIN QUANTITATIV 1.04 MG/DL (0.00-0.30); CALCIUM LEVEL 9.1 MG/DL (8.8-10.2); CREATININE FOR GFR 0.97 MG/DL (0.55-1.30); GLOMERULAR FILTRATION RATE 59.4 (>39); POTASSIUM SERUM 3.9 MEQ/L (3.5-5.1); TOTAL PROTEIN 5.5 GM/DL (6.4-8.2)
--- NOTE | 2018-08-29 21:58 | REPVR ---
EXAM: US Duplex Left Lower Extremity Veins, Limited EXAM DATE/TIME: 08/29/2018 7:49 PM CLINICAL HISTORY: 77 years old, female; Pain; Leg, lower; Left; Additional info: R/O dvt/pain/swelling TECHNIQUE: Imaging protocol: Real-time Duplex ultrasound of the Left Lower Extremity with 2-D navarro scale, color Doppler flow and spectral waveform analysis. Limited exam focused on the left lower extremity veins. COMPARISON: US Duplex, Ext,LOWER veins,unilat 10/01/2015 7:20 PM FINDINGS: Left deep veins: Unremarkable. The common femoral, proximal profunda femoral, femoral, popliteal and visualized calf veins are patent without thrombus. Normal compressibility, augmentation response and Doppler waveforms. Left superficial veins: Unremarkable. Saphenofemoral junction is patent without thrombus. Soft tissues: Unremarkable. IMPRESSION: No sonographic evidence of deep vein thrombosis. Electronically signed by: Juan Tinoco On 08/29/2018 21:57:20 PM
[2018-08-29] MEDS ORDERED: DOXYCYCLINE HYCLATE 100 MG TAB PO ONE (22:15)
[2018-08-29] MEDS ORDERED: DOXY100C37 PO (22:33)
[2018-08-29 22:42] VITALS: BP 140/79
[2018-08-30] MEDS ORDERED: KEFL500C17 PO ×2 (18:25→18:59)
[2018-08-30] MEDS ORDERED: NORC1TAB7 PO ×2 (18:26→18:59)
--- NOTE | 2018-08-31 16:50 | ECGEPIP ---
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
== END 2018-08-29 22:43 | disposition home or self-care (01) ==
LOC: M ED 18:34
DX: L03.116 Cellulitis of left lower limb (principal); I45.4 Nonspecific intraventricular block; Z95.0 Presence of cardiac pacemaker; I50.9 Heart failure, unspecified; E11.9 Type 2 diabetes mellitus without complications; I10 Essential (primary) hypertension; Z86.718 Personal history of other venous thrombosis and embolism; J44.9 Chronic obstructive pulmonary disease, unspecified; K21.9 Gastro-esophageal reflux disease without esophagitis; Z85.3 Personal history of malignant neoplasm of breast; F41.9 Anxiety disorder, unspecified; F32.9 Major depressive disorder, single episode, unspecified; Z87.891 Personal history of nicotine dependence; Z79.82 Long term (current) use of aspirin; Z79.84 Long term (current) use of oral hypoglycemic drugs; Z79.02 Long term (current) use of antithrombotics/antiplatelets; Z79.899 Other long term (current) drug therapy; Z88.0 Allergy status to penicillin; Z88.2 Allergy status to sulfonamides; Z88.5 Allergy status to narcotic agent

== ENCOUNTER 2018-08-30 14:44 | Emergency (ER) | payer MEDICARE, OTHER ==
[~2018-08-30] VITALS: Ht 157.5 cm; Wt 113.6 kg
[2018-08-30] MEDS ORDERED: NORCO, ANEXSIA 5/325MG TABLET (HYDROcodone/ACETAMINOPHEN) PO ONE (17:30)
[2018-08-30 18:05] VITALS: BP 128/60
--- NOTE | 2018-08-30 18:24 | REP ---
Left foot four views: Comparison is 06/10/2016. There is surgical fusion of the great toe and second digit MTP articulations, unchanged. There is internal fixation of the ankle, unchanged. There is demineralization. There are is no acute fracture. There are no lytic, blastic or destructive skeletal changes. There is a bone cyst at the base of the fourth digit metatarsal. This is unchanged. 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 There is circumferential soft tissue edema of the forefoot, not present previously. There are calcaneal plantar and Achilles spurs, unchanged. Impression: There is circumferential soft tissue edema of the forefoot, not present previously. Electronically Signed by Ez Boo MD 08/30/2018 06:15 P
[2018-08-30] MEDS ORDERED: KEFL500C17 PO ×2 (18:25→18:59)
[2018-08-30] MEDS ORDERED: NORC1TAB7 PO ×2 (18:26→18:59)
[2018-08-30] MEDS ORDERED: CEPHALEXIN 500 MG CAP PO ONE (18:45)
== END 2018-08-30 18:47 | disposition home or self-care (01) ==
LOC: M ED 14:44
DX: L03.116 Cellulitis of left lower limb (principal); M79.9 Soft tissue disorder, unspecified; R11.10 Vomiting, unspecified; T36.4X5A Adverse effect of tetracyclines, initial encounter; R06.02 Shortness of breath; I11.0 Hypertensive heart disease with heart failure; I50.9 Heart failure, unspecified; E11.9 Type 2 diabetes mellitus without complications; F41.9 Anxiety disorder, unspecified; F32.9 Major depressive disorder, single episode, unspecified; J45.909 Unspecified asthma, uncomplicated; J44.9 Chronic obstructive pulmonary disease, unspecified; K21.9 Gastro-esophageal reflux disease without esophagitis; M54.9 Dorsalgia, unspecified; Z85.3 Personal history of malignant neoplasm of breast; Z86.718 Personal history of other venous thrombosis and embolism; Z90.10 Acquired absence of unspecified breast and nipple; Z88.0 Allergy status to penicillin; Z88.1 Allergy status to other antibiotic agents; Z88.2 Allergy status to sulfonamides; Z88.5 Allergy status to narcotic agent; Z88.8 Allergy status to other drugs, medicaments and biological substances; Z79.899 Other long term (current) drug therapy; Z79.2 Long term (current) use of antibiotics; Z79.82 Long term (current) use of aspirin; Z79.01 Long term (current) use of anticoagulants

== ENCOUNTER 2018-10-04 21:41 | Inpatient (IN) | payer MEDICARE, OTHER ==
[~2018-10-04] VITALS: Ht 157.5 cm; Wt 114.4 kg
[2018-10-04] MEDS: CitaloPRAM (CeleXA) 20 MG TAB PO SCH (21:00)
[2018-10-04] MEDS: buPROPion **XL** TABLET 150MG (WELLBUTRIN XL) PO SCH (21:00)
[~2018-10-04 21:41] MED LIST changes: +KEFL500C17 PO; +NORC1TAB7 PO; -PILO4SOL6 OD; +PILO4SOL6 OU
[2018-10-04 22:32] LABS: BASO % 0.5 % (0.0-1.0); EOS # 0.2 10^3/uL (0.0-0.50); EOS % 2.7 % (0.0-3.0); HEMOGLOBIN 10.6 g/dl (12.0-15.5); LYMPH # 1.1 10^3/uL (1.5-4.5); LYMPH % 14.2 % (24.0-44.0); MEAN CORPUSCULAR HEMOGLOBIN 27.7 pg (27.0-33.0); MEAN CORPUSCULAR HGB CONC 31.2 g/dl (32.0-36.5); MONO # 0.5 10^3/uL (0.0-0.8); MONO % 6.5 % (0.0-5.0); NEUTROPHILS # 5.7 10^3/uL (1.8-7.7); NEUTROPHILS % 75.4 % (36.0-66.0); PLATELET COUNT, AUTOMATED 136 10^3/uL (150-450); RED BLOOD COUNT 3.82 10^6/uL (4.00-5.40); WHITE BLOOD COUNT 7.5 10^3/uL (4.0-10.0)
[2018-10-04 22:52] LABS: C REACTIVE PROTEIN QUANTITATIV 0.9 MG/DL (0.00-0.30); CALCIUM LEVEL 9.4 MG/DL (8.8-10.2); CREATININE FOR GFR 1.15 MG/DL (0.55-1.30); GLOMERULAR FILTRATION RATE 48.8 (>39)
[2018-10-04 23:01] LABS: ERYTHROCYTE SEDIMENTATION RATE 12 mm/hr (0-30)
[2018-10-05] MEDS ORDERED: PERCOCET 5MG/325MG TAB PO ONE (00:15)
--- NOTE | 2018-10-05 00:29 | REPVR ---
EXAM: US Duplex Left Lower Extremity Veins, Limited EXAM DATE/TIME: 10/04/2018 12:00 AM CLINICAL HISTORY: 77 years old, female; Pain; Leg, upper and leg, lower; Left; Additional info: Left lower extremity pain/swelling TECHNIQUE: Imaging protocol: Real-time Duplex ultrasound of the Left Lower Extremity with 2-D navarro scale, color Doppler flow and spectral waveform analysis with image documentation. Limited exam focused on the left lower extremity veins. COMPARISON: US Duplex, Ext,LOWER veins,unilat LEFT 08/29/2018 7:36 PM FINDINGS: Left deep veins: Unremarkable. The common femoral, proximal profunda femoral, femoral and popliteal veins are patent without thrombus. Normal compressibility, augmentation response and Doppler waveforms. Left superficial veins: Unremarkable. Saphenofemoral junction is patent without thrombus. Soft tissues: Unremarkable. IMPRESSION: No sonographic evidence of deep vein thrombosis. Electronically signed by: Juan Tinoco On 10/05/2018 00:29:07 AM
[2018-10-05] MEDS ORDERED: CEFTAROLINE FOSAMIL 600 MG in D5W MINI-BAG PLUS 50 ML IV ONE (02:45)
--- NOTE | 2018-10-05 02:52 | HPEPDOC ---
[facility] Medical History & Physical Date of Admission Oct 05, 2018 Date of Service: Oct 05, 2018 Primary Care Physician: Nuzhat Langley Attending Physician: LEONELA LESLIE MD History and Physical Time of service 3:17 AM CHIEF COMPLAINT: Leg pain HISTORY OF PRESENT ILLNESS: Ms. Stokes is a 77 old female who presents with complaints of one month in duration left lower leg redness, pain and swelling. Within the last month she has been to the ED 3 times. The first time she was given antibiotics but she came back the next day because she "felt sick". She followed up with her PCP who put her on 2 different antibiotics. She completed the antibiotics 1 week ago, but came back today because the redness, pain and swelling became worse. She denies having fevers or chills. She had nausea shortly after arrival in the ED, but has not vomited. She has able to walk with her rolling walker. Per Dr. Solorio she had failed treatment with doxycycline, Keflex, and Levaquin. REVIEW OF SYSTEMS: 12 point review systems negative except as listed in HPI PAST MEDICAL /SURGICAL HISTORY: 1. COPD 2. History of Atrial flutter- status post mechanical cardioversion September 2015 at [facility] on Xarelto. 3. History of obstructive sleep apnea 4. [id number] Diabetes mellitus A1c 6.5% in March 5. Chronic hypertension / Chronic Diastolic congestive heart failure 6. Sick sinus syndrome with dual-chamber pacemaker 7. History of anxiety and depression 8. Glaucoma. 9. History of breast cancer s/p Left partial mastectomy for breast cancer 10. Hernia repair 11. Appendectomy 12. Hysterectomy FAMILY HISTORY: colon cancer heart attack. SOCIAL HISTORY: Quit smoking 2014 had 40 pack yr habit ALLERGIES: Please see below. HOME MEDICATIONS: Please see below. PHYSICAL EXAMINATION: VITAL SIGNS: Please see below. GENERAL APPEARANCE: Well-nourished, well-developed, does not appear septic HEENT: Normocephalic, atraumatic, mucous members moist and pink. Neck short CARDIOVASCULAR: Regular rate and rhythm. No murmurs, rubs or gallops LUNGS: Clear to auscultation bilaterally on room air MUSCULOSKELETAL: Range of motion intact in all 4 extremities EXTREMITIES: The left lower leg is is red, warm and tender with on palpation NEUROLOGICAL: Cranial 2-12 grossly intact. Speech is not dysarthric PSYCHIATRIC: Alert and oriented, able to understand follow commands LABORATORY DATA: See below. IMAGING: Ultrasound is negative for DVT MICROBIOLOGY: Please see below. ASSESSMENT: Ms. Stokes is a 77 old female the past medical history of COPD, atrial flutter, diabetes mellitus, anxiety, depression, chronic hypertension, chronic diastolic congestive heart failure, EDGARD, and obesity who will be admitted for management of left lower extremity cellulitis. PLAN: 1. LLE Cellulitis Predisposing factors include obesity and diabetes CRP is elevated, but ESR is within normal limits. There is no leukocytosis. US is negative for DVT ALT-70 Score to diagnose LE Cellulitis = 2 points = reassess = > 83.3% likelihood of cellulitis Plan: Admit to general medical floor/f/u blood cx ordered in the ED /continue Ceftaroline / acetaminophen for pain 2. COPD Second at remote history of tobacco Stable Plan: Continue home meds 3.Atrial flutter status post mechanical cardioversion Plan: Continue home meds 4.Diabetes mellitus Plan: diabetic diet / f/u accuchecks & A1C / hypoglycemia protocol / sliding scale insulin / hold oral anti-glycemics 5. Chronic hypertension / Chronic Diastolic congestive heart failure Plan: Continue home meds 6.History of anxiety and depression Plan: Continue home meds 7. EDGARD Plan: home CPAP 8. Obesity Obesity -BMI >35 + DM = candidate for bariatric surgery Plan: can f/u w PCP for corporate sales trainer consult & referral for Bariatric surgery / re commend cardiovascular exercise for 40 min 4-5 days a week DVT prophylaxis with Xarelto Disposition pending clinical course Vital Signs Vital Signs Date Time Temp Pulse Resp B/P (MAP) Pulse Ox O2 Delivery O2 Flow Rate FiO2 10/05/18 01:30 96.6 71 18 132/59 (83) 92 Room Air Laboratory Data CBC/BMP Laboratory Tests 10/04/18 22:23 Red Blood Count 3.82 L, Mean Corpuscular Volume 89.0, Mean Corpuscular Hemoglob in 27.7, Mean Corpuscular Hemoglobin Concent 31.2 L, Red Cell Distribution Width 15.9 H, Neutrophils (%) (Auto) 75.4 H, Lymphocytes (%) (Auto) 14.2 L, Monocytes (%) (Auto) 6.5 H, Eosinophils (%) (Auto) 2.7, Basophils (%) (Auto) 0.5, Neutrophils # (Auto) 5.7, Lymphocytes # (Auto) 1.1 L, Monocytes # (Auto) 0.5, Eosinophils # (Auto) 0.2, Basophils # (Auto) 0.0, Calcium Level 9.4 Microbiology Microbiology 10/04/18 Blood Culture, Received Pending 10/04/18 Blood Culture, Received Pending Home Medications Scheduled Bimatoprost (Lumigan) 50 Drop/2.5 Ml Farrah, 1 DROP OU QHS Brimonidine Tartrate (Alphagan P) 100 Drop/5 Ml Soln, 1 DROP OU BID Bupropion Hcl (Bupropion Xl) 150 Mg Tab, 150 MG PO QHS Citalopram Hydrobromide (Celexa) 40 Mg Tab, 40 MG PO QHS Diltiazem HCl (Diltiazem HCl) 60 Mg Tab, 60 MG PO QHS Fluticasone Propion/Salmeterol (Advair Hfa 230-21 Mcg Inhaler) 1 Aer Aer, 2 PUFF INH BID Fluticasone Propionate (Flonase Allergy Relief) 9.9 Ml Roscoe.susp, 1 SPR NA DAILY Furosemide (Furosemide) 20 Mg Tablet, 40 MG PO DAILY Pilocarpine HCl (Pilocarpine HCl 4% Opth Farrah) 4 % Farrah, 1 DROP OU BID Potassium Chloride (K-Tab ER) 20 Meq Tab, 20 MEQ PO QHS Rivaroxaban (Xarelto) 15 Mg Tab, 15 MG PO QHS Scheduled PRN Albuterol Sulfate (Proair Hfa) 108 Mcg/Act Aer, 2 PUFF INH Q4H PRN for SOB/WHEEZING Carbamide Peroxide (Debrox) 6.5 % Farrah, 5 DROP AU BID PRN for SYMPTOM RELIEF Guaifenesin (Mucinex) 600 Mg Tab.er.12h, 1,200 MG PO BID PRN for CONGESTION/COUGH Ipratropium/Albuterol Sulfate (Iprat-Albut 0.5-3(2.5) mg/3 ml) 1 Farrah Farrah, 1 FARRAH INH QID PRN for SHORTNESS OF BREATH Allergies Coded Allergies: Penicillins (Verified Allergy, Mild, RASH, 10/05/18) Sulfa (Sulfonamide Antibiotics) (Verified Allergy, Mild, RASH, 10/05/18) clindamycin (Verified Allergy, Mild, RASH, 10/05/18) codeine (Verified Allergy, Mild, STOMACH UPSET, RASH, 10/05/18) meperidine (Verified Allergy, Mild, STOMACH UPSET, RASH, 10/05/18) A-FIB/CHADSVASC A-FIB History Current/History of A-Fib/PAF?: Yes Current PO Anticoag Therapy: Yes Treatment Treatment ordered: Rivaroxaban LEONELA LESLIE MD Oct 05, 2018 02:52
[2018-10-05] MEDS ORDERED: DEXTROSE 50% 50 ML SYRINGE IV PRN (03:15)
[2018-10-05] MEDS ORDERED: MUCI600T31 PO (03:25)
[2018-10-05] MEDS ORDERED: FLON1SPR (03:25)
[2018-10-05] MEDS ORDERED: FURO20TA2 PO (03:25)
[2018-10-05] MEDS ORDERED: ALBUTEROL 90 MCG/ACT 8GM HFA INHALER INH PRN (04:00)
[2018-10-05] MEDS ORDERED: guaiFENesin ER 600 MG TAB PO PRN (04:00)
[2018-10-05] MEDS ORDERED: CARBAMIDE PEROXIDE 6.5% OTIC SOLN 15ML AU PRN (04:00)
[2018-10-05] MEDS ORDERED: IPRATROPIUM 0.5MG/ALBUTEROL 2.5MG INH SOL UD 3ML (DUONEB)(J7620) INH PRN (04:00)
[2018-10-05] MEDS ORDERED: IBUPROFEN 800 MG TAB PO ONE (05:00)
[2018-10-05] MEDS ORDERED: ACETAMINOPHEN 650MG ER TAB (TYLENOL ARTHRITIS) PO SCH (06:00)
[2018-10-05 07:37] LABS: HEMOGLOBIN A1c 6.8 %
[2018-10-05] MEDS: RIVAROXABAN 15 MG TAB (XARELTO) PO SCH ×2 (08:31→21:27)
[2018-10-05] MEDS: POTASSIUM CHLORIDE 10 MEQ SR TABLET PO SCH ×2 (08:31→21:27)
[2018-10-05] MEDS: ADVAIR HFA 230/21MCG INHALER INH SCH ×2 (08:39→20:27)
[2018-10-05] MEDS: HumaLOG INSULIN (NovoLOG) PER UNIT SC SCH ×4 (08:42→21:00)
[2018-10-05] MEDS: PILOCARPINE 4% OPHTH SOLN 15 ML OU SCH ×2 (09:00→23:36)
[2018-10-05] MEDS ORDERED: FUROSEMIDE 20 MG TAB PO SCH (09:00)
[2018-10-05] MEDS: BRIMONIDINE 0.1% OPHTH SOLN 5 ML OU SCH ×2 (09:00→23:36)
[2018-10-05] MEDS: FLUTICASONE PROP 0.05% NASAL SPRAY 16 GM (FLONASE) SCH (09:00)
[2018-10-05] MEDS: ACETAMINOPHEN TAB 650MG DOSE (2X325MG) PO PRN ×3 (10:49→23:38)
[2018-10-05 14:29] VITALS: BP 132/67
[2018-10-05] MEDS: CEFTAROLINE FOSAMIL 400 MG in D5W MINI-BAG PLUS 50 ML IV SCH (17:53)
--- NOTE | 2018-10-05 21:18 | IPNPDOC ---
Text Note Date of Service The patient was seen on 10/05/18. NOTE Subjective patient complains of right distal left leg pain, redness, throbbing sensation. Patient denies fever, chills, nausea, vomiting, diarrhea Objective: GENERAL APPEARANCE: Well-nourished, well-developed, does not appear septic HEENT: Normocephalic, atraumatic, mucous members moist and pink. Neck short CARDIOVASCULAR: Regular rate and rhythm. No murmurs, rubs or gallops LUNGS: Clear to auscultation bilaterally on room air MUSCULOSKELETAL: Range of motion intact in all 4 extremities EXTREMITIES: The left lower leg is is red, warm and tender with on palpation, no abscess NEUROLOGICAL: Cranial 2-12 grossly intact. Speech is not dysarthric PSYCHIATRIC: Alert and oriented, able to understand follow commands ASSESSMENT: Ms. Stokes is a 77 old female the past medical history of COPD, atrial flutter, diabetes mellitus, anxiety, depression, chronic hypertension, chronic diastolic congestive heart failure, EDGARD, and obesity who will be admitted for management of left lower extremity cellulitis. PLAN: 1. LLE Cellulitis Predisposing factors include obesity and diabetes If no improvement on antibiotic therapy, ID doctor consult CRP is elevated, but ESR is within normal limits. There is no leukocytosis. US is negative for DVT ALT-70 Score to diagnose LE Cellulitis = 2 points = reassess = > 83.3% likelihood of cellulitis continue Ceftaroline / acetaminophen for pain Leg elevation 2. COPD Second at remote history of tobacco Stable Plan: Continue home meds 3.Atrial flutter status post mechanical cardioversion Plan: Continue home meds 4.Diabetes mellitus Plan: diabetic diet / f/u accuchecks & A1C / hypoglycemia protocol / sliding scale insulin / hold oral anti-glycemics 5. Chronic hypertension / Chronic Diastolic congestive heart failure Plan: Continue home meds 6.History of anxiety and depression Plan: Continue home meds 7. EDGARD Plan: home CPAP 8. 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 & referral for Bariatric surgery / recommend cardiovascular exercise for 40 min 4-5 days a week DVT prophylaxis with Xarelto VS,Fishbone, I+O VS, Fishbone, I+O Laboratory Tests 10/04/18 22:23 Red Blood Count 3.82 L, Mean Corpuscular Volume 89.0, Mean Corpuscular Hemoglobin 27.7, Mean Corpuscular Hemoglobin Concent 31.2 L, Red Cell Distribution Width 15.9 H, Neutrophils (%) (Auto) 75.4 H, Lymphocytes (%) (Auto) 14.2 L, Monocytes (%) (Auto) 6.5 H, Eosinophils (%) (Auto) 2.7, Basophils (%) (Auto) 0.5, Neutrophils # (Auto) 5.7, Lymphocytes # (Auto) 1.1 L, Monocytes # (Auto) 0.5, Eosinophils # (Auto) 0.2, Basophils # (Auto) 0.0, Calcium Level 9.4 Vital Signs Date Time Temp Pulse Resp B/P (MAP) Pulse Ox O2 Delivery O2 Flow Rate FiO2 10/05/18 14:29 97.8 72 20 132/67 (88) 96 10/05/18 13:13 Room Air LIZZ ÁLVAREZ DO Oct 05, 2018 21:18
[2018-10-05] MEDS: buPROPion **XL** TABLET 150MG (WELLBUTRIN XL) PO SCH (21:26)
[2018-10-05] MEDS: CitaloPRAM (CeleXA) 20 MG TAB PO SCH (21:28)
[2018-10-05 22:00] VITALS: BP 142/69
[2018-10-06] MEDS: CEFTAROLINE FOSAMIL 400 MG in D5W MINI-BAG PLUS 50 ML IV SCH ×2 (04:06→16:02)
[2018-10-06] MEDS: ACETAMINOPHEN TAB 650MG DOSE (2X325MG) PO PRN (05:25)
[2018-10-06 06:00] VITALS: BP 129/76
[2018-10-06 06:15] LABS: HEMATOCRIT 33.8 % (36.0-47.0); HEMOGLOBIN 10.5 g/dl (12.0-15.5); MEAN CORPUSCULAR HEMOGLOBIN 28.6 pg (27.0-33.0); MEAN CORPUSCULAR HGB CONC 31.1 g/dl (32.0-36.5); MEAN CORPUSCULAR VOLUME 92.1 fl (80.0-96.0); PLATELET COUNT, AUTOMATED 114 10^3/uL (150-450); RED BLOOD COUNT 3.67 10^6/uL (4.00-5.40)
[2018-10-06 06:41] LABS: CALCIUM LEVEL 8.8 MG/DL (8.8-10.2); CREATININE FOR GFR 1.1 MG/DL (0.55-1.30); GLOMERULAR FILTRATION RATE 51.4 (>39); POTASSIUM SERUM 4.3 MEQ/L (3.5-5.1)
[2018-10-06] MEDS ORDERED: PILL CUTTER 1 EACH XX PRN ×2 (07:45→08:15)
[2018-10-06] MEDS: BRIMONIDINE 0.1% OPHTH SOLN 5 ML OU SCH ×2 (07:57→20:36)
[2018-10-06] MEDS: HumaLOG INSULIN (NovoLOG) PER UNIT SC SCH ×4 (07:57→20:34)
[2018-10-06] MEDS: PILOCARPINE 4% OPHTH SOLN 15 ML OU SCH ×2 (07:57→20:36)
[2018-10-06] MEDS: FLUTICASONE PROP 0.05% NASAL SPRAY 16 GM (FLONASE) SCH (07:57)
[2018-10-06] MEDS: ADVAIR HFA 230/21MCG INHALER INH SCH ×2 (07:58→19:54)
[2018-10-06] MEDS ORDERED: FUROSEMIDE 20 MG TAB PO SCH (09:00)
[2018-10-06] MEDS: traMADol 50 MG TAB PO PRN ×2 (09:53→16:05)
--- NOTE | 2018-10-06 13:27 | IPNPDOC ---
Text Note Date of Service The patient was seen on 10/06/18. NOTE NOTE Subjective: patient complains of left distal leg pain, redness, throbbing sensation. Patient states that the pain is not improving. Patient denies fever, chills, nausea, vomiting, diarrhea Objective: GENERAL APPEARANCE: Well-nourished, well-developed, does not appear septic HEENT: Normocephalic, atraumatic, mucous members moist and pink. Neck short CARDIOVASCULAR: Regular rate and rhythm. No murmurs, rubs or gallops LUNGS: Clear to auscultation bilaterally on room air MUSCULOSKELETAL: Range of motion intact in all 4 extremities EXTREMITIES: The left lower leg is is red, warm and tender with on palpation, no abscess, pulsation intact NEUROLOGICAL: Cranial 2-12 grossly intact. Speech is not dysarthric PSYCHIATRIC: Alert and oriented, able to understand follow commands ASSESSMENT: Ms. Stokes is a 77 old female the past medical history of COPD, atrial flutter, diabetes mellitus, anxiety, depression, chronic hypertension, chronic diastolic congestive heart failure, EDGARD, and obesity who will be admitted for management of left lower extremity cellulitis. Patient failed treatment with doxycycline, Keflex, Levaquin in the outpatient settings. She stated that she has been having the pain with erythema for 2 months. During hospital stay patient received treatment with IV ceftaroline PLAN: 1. LLE Cellulitis Predisposing factors include obesity and diabetes There is no signs of compartment syndrome, pulsation is preserved, left distal extremity is warm, sensation is intact, no pallor If no improvement on antibiotic therapy I called to Dr. Hunt and left message for her, but she is off this week CRP is elevated, but ESR is within normal limits. There is no leukocytosis. US is negative for DVT ALT-70 Score to diagnose LE Cellulitis = 2 points = reassess = > 83.3% likelihood of cellulitis continue Ceftaroline / acetaminophen for pain Leg elevation 2. COPD Second at remote history of tobacco Stable Plan: Continue home meds 3.Atrial flutter status post mechanical cardioversion Plan: Continue home meds 4.Diabetes mellitus Plan: diabetic diet / f/u accuchecks & A1C / hypoglycemia protocol / sliding scale insulin / hold oral anti-glycemics 5. Chronic hypertension / Chronic Diastolic congestive heart failure Plan: Continue home meds 6.History of anxiety and depression Plan: Continue home meds 7. EDGARD Plan: home CPAP 8. 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 & referral for Bariatric surgery / recommend cardiovascular exercise for 40 min 4-5 days a week DVT prophylaxis with Xarelto VS,Fishbone, I+O VS, Fishbone, I+O Laboratory Tests 10/06/18 05:47 Red Blood Count 3.67 L, Mean Corpuscular Volume 92.1, Mean Corpuscular Hemoglobin 28.6, Mean Corpuscular Hemoglobin Concent 31.1 L, Red Cell Di stribution Width 15.9 H, Calcium Level 8.8 Vital Signs Date Time Temp Pulse Resp B/P (MAP) Pulse Ox O2 Delivery O2 Flow Rate FiO2 10/06/18 10:23 18 10/06/18 06:00 98.7 74 129/76 (93) 98 10/05/18 13:13 Room Air I&O- Last 24 Hours up to 6 AM 10/06/18 06:00 Intake Total 650 ml Output Total 1150 ml Balance -500 ml LIZZ ÁLVAREZ DO Oct 06, 2018 13:27
[2018-10-06 14:00] VITALS: BP 130/76
[2018-10-06] MEDS: POTASSIUM CHLORIDE 10 MEQ SR TABLET PO SCH (20:33)
[2018-10-06] MEDS: CitaloPRAM (CeleXA) 20 MG TAB PO SCH (20:34)
[2018-10-06] MEDS: RIVAROXABAN 15 MG TAB (XARELTO) PO SCH (20:34)
[2018-10-06] MEDS: buPROPion **XL** TABLET 150MG (WELLBUTRIN XL) PO SCH (20:34)
[2018-10-06] MEDS: FUROSEMIDE 40 MG/4 ML VIAL (J1940) IV SCH (20:35)
[2018-10-06 22:00] VITALS: BP 137/72
[2018-10-07 06:00] VITALS: BP 124/57
[2018-10-07 06:23] LABS: HEMATOCRIT 32.8 % (36.0-47.0); HEMOGLOBIN 10.2 g/dl (12.0-15.5); MEAN CORPUSCULAR HEMOGLOBIN 27.8 pg (27.0-33.0); MEAN CORPUSCULAR HGB CONC 31.1 g/dl (32.0-36.5); MEAN CORPUSCULAR VOLUME 89.4 fl (80.0-96.0); PLATELET COUNT, AUTOMATED 124 10^3/uL (150-450); RED BLOOD COUNT 3.67 10^6/uL (4.00-5.40); WHITE BLOOD COUNT 6.6 10^3/uL (4.0-10.0)
[2018-10-07 06:57] LABS: CALCIUM LEVEL 9.4 MG/DL (8.8-10.2); CREATININE FOR GFR 1.31 MG/DL (0.55-1.30); MAGNESIUM LEVEL 2.1 MG/DL (1.8-2.4); POTASSIUM SERUM 3.8 MEQ/L (3.5-5.1)
[2018-10-07] MEDS: ADVAIR HFA 230/21MCG INHALER INH SCH ×2 (07:22→20:20)
[2018-10-07] MEDS: HumaLOG INSULIN (NovoLOG) PER UNIT SC SCH ×4 (07:30→21:00)
[2018-10-07] MEDS ORDERED: FUROSEMIDE 40 MG/4 ML VIAL (J1940) IV SCH (09:00)
[2018-10-07] MEDS: FUROSEMIDE 40 MG/4 ML VIAL (J1940) IV SCH ×2 (09:18→21:42)
[2018-10-07] MEDS: PILOCARPINE 4% OPHTH SOLN 15 ML OU SCH ×2 (09:19→21:44)
[2018-10-07] MEDS: BRIMONIDINE 0.1% OPHTH SOLN 5 ML OU SCH ×2 (09:19→21:44)
[2018-10-07] MEDS: FLUTICASONE PROP 0.05% NASAL SPRAY 16 GM (FLONASE) SCH (09:19)
[2018-10-07] MEDS: traMADol 50 MG TAB PO PRN ×2 (12:24→19:21)
[2018-10-07 14:00] VITALS: BP 118/58
[2018-10-07] MEDS: ACETAMINOPHEN TAB 650MG DOSE (2X325MG) PO PRN (16:46)
[2018-10-07] MEDS: buPROPion **XL** TABLET 150MG (WELLBUTRIN XL) PO SCH (21:41)
[2018-10-07] MEDS: RIVAROXABAN 15 MG TAB (XARELTO) PO SCH (21:42)
[2018-10-07] MEDS: CitaloPRAM (CeleXA) 20 MG TAB PO SCH (21:42)
[2018-10-07] MEDS: POTASSIUM CHLORIDE 10 MEQ SR TABLET PO SCH (21:43)
[2018-10-07 22:00] VITALS: BP 117/72
--- NOTE | 2018-10-07 22:14 | IPNPDOC ---
Subjective Date Seen The patient was seen on 10/07/18. Subjective Chief Complaint/HPI Ms. Stokes is a 77 old female the past medical history of COPD, atrial flutter, diabetes mellitus, anxiety, depression, chronic hypertension, chronic diastolic congestive heart failure, EDGARD, and obesity who will be admitted for management of left lower extremity cellulitis. Patient failed treatment with doxycycline, Keflex, Levaquin in the outpatient settings. She stated that she has been having the pain with erythema for 2 months. During hospital stay patient received treatment with IV ceftaroline Today patient still complaining of left leg pain with difficulty walking General: Reports: Normal Appetite; Denies: Chills, Night Sweats, Fatigue, Malaise Constitutional: Denies: Chills, Fever, Night Sweats Pulmonary: Denies: Dyspnea, Cough Cardiovascular: Denies: Chest Pain, Palpitations, Orthopnea, Paroxysmal Noc. Dyspnea, Lt Headedness Gastrointestinal: Denies: Nausea, Vomiting, Abdominal Pain, Diarrhea, Constipation Musculoskeletal: Reports: Other Symptoms (left leg pain and pain) Neurological: Denies: Weakness, Numbness, Change in speech, Confusion Psych: Reports: Mood Normal; Denies: Depression, Memory Issues Objective Physical Examination General Exam: Positive: Alert, No Acute Distress Eye Exam: Positive: PERRLA, Conjunctiva & lids normal, EOMI; Negative: Sclera icteric Neck Exam: Positive: Supple; Negative: JVD, thyromegaly Heart Exam: Positive: Rate Normal, Regular Rhythm, Normal S1, Normal S2; Negative: Murmurs, Rubs Abdomen Exam: Positive: Normal bowel sounds, Soft; Negative: Tenderness, Hepatospenomegaly Extremity Exam: Positive: Tenderness (left leg associated with swelling) Neuro Exam: Positive: Normal Gait, Normal Speech, Cranial Nerves 3-12 NL, Reflexes 2+ Psych Exam: Positive: Mental status NL, Mood NL, Oriented x 3 Assessment /Plan Problems (1) Cellulitis of leg, left Status: Acute Problem Text: Predisposing factors include obesity and diabetes There is no signs of compartment syndrome, pulsation is preserved, left distal extremity is warm, sensation is intact, no pallor So far no improvement.ID,Dr Hunt was consulted by previous hospitalist who left message for her, but she is off this week CRP is elevated, but ESR is within normal limits. There is no leukocytosis. US is negative for DVT ALT-70 Score to diagnose LE Cellulitis = 2 points = reassess = > 83.3% likelihood of cellulitis On Ceftaroline / tramadol for pain Leg elevation (2) Diabetes Problem Text: On ssi.Hgba1c 6.8 (3) Obesity Problem Text: Educated weight loss through diet and exercises. (4) EDGARD (obstructive sleep apnea) Problem Text: On home CPAP (5) Anxiety and depression Problem Text: Continue routine meds (6) Atrial flutter Problem Text: On Xarelto (7) COPD (chronic obstructive pulmonary disease) Status: Chronic Problem Text: Stable,continue current meds Plan/VTE VTE Prophylaxis Ordered?: Yes (on Xarelto) Plan Continue current management Disposition To be determined VS, I&O, 24H, Fishbone Vital Signs/I&O Vital Signs Date Time Temp Pulse Resp B/P (MAP) Pulse Ox O2 Delivery O2 Flow Rate FiO2 10/07/18 21:44 74 152/72 10/07/18 20:01 19 10/07/18 14:00 97.0 98 10/05/18 13:13 Room Air I&O- Last 24 Hours up to 6 AM 10/07/18 06:00 Intake Total 1338 ml Output Total 3270 ml Balance -1932 ml Laboratory Data 24H LABS Laboratory Tests 2 10/07/18 05:20: Nucleated Red Blood Cells % (auto) 0.0, Anion Gap 4L, Glomerular Filtration Rate 42.0, Blood Urea Nitrogen 25H, Creatinine 1.31H, Sodium Level 141, Potassium Level 3.8, Chloride Level 104, Carbon Dioxide Level 33H, Calcium Level 9.4, Magnesium Level 2.1 10/07/18 11:02: Bedside Glucose (Misc Panel) 214H 10/07/18 16:53: Bedside Glucose (Misc Panel) 109 CBC/BMP Laboratory Tests 10/07/18 05:20 Red Blood Count 3.67 L, Mean Corpuscular Volume 89.4, Mean Corpuscular Hemoglobin 27.8, Mean Corpuscular Hemoglobin Concent 31.1 L, Red Cell Distribution Width 15.9 H, Calcium Level 9.4 Microbiology Microbiology 10/04/18 Blood Culture - Preliminary, Resulted No Growth after 48 hours. All Specime... 10/04/18 Blood Culture - Preliminary, Resulted No Growth after 48 hours. All Specime... KOLONGO,NSEKENENE MD Oct 07, 2018 22:14
[2018-10-08] MEDS: traMADol 50 MG TAB PO PRN ×3 (05:35→21:14)
[2018-10-08 05:43] LABS: HEMOGLOBIN 10.7 g/dl (12.0-15.5); MEAN CORPUSCULAR HEMOGLOBIN 28.5 pg (27.0-33.0); MEAN CORPUSCULAR HGB CONC 31.5 g/dl (32.0-36.5); MEAN CORPUSCULAR VOLUME 90.7 fl (80.0-96.0); PLATELET COUNT, AUTOMATED 125 10^3/uL (150-450); RED BLOOD COUNT 3.75 10^6/uL (4.00-5.40); WHITE BLOOD COUNT 6.3 10^3/uL (4.0-10.0)
[2018-10-08 06:00] VITALS: BP 147/67
[2018-10-08 06:04] LABS: CALCIUM LEVEL 8.8 MG/DL (8.8-10.2); CREATININE FOR GFR 1.23 MG/DL (0.55-1.30); GLOMERULAR FILTRATION RATE 45.2 (>39); MAGNESIUM LEVEL 2.1 MG/DL (1.8-2.4); POTASSIUM SERUM 3.7 MEQ/L (3.5-5.1)
[2018-10-08] MEDS: ADVAIR HFA 230/21MCG INHALER INH SCH ×2 (07:24→21:43)
[2018-10-08] MEDS: FLUTICASONE PROP 0.05% NASAL SPRAY 16 GM (FLONASE) SCH (08:19)
[2018-10-08] MEDS: PILOCARPINE 4% OPHTH SOLN 15 ML OU SCH ×2 (08:20→21:16)
[2018-10-08] MEDS: BRIMONIDINE 0.1% OPHTH SOLN 5 ML OU SCH ×2 (08:20→21:16)
[2018-10-08] MEDS: HumaLOG INSULIN (NovoLOG) PER UNIT SC SCH ×4 (08:20→21:00)
[2018-10-08] MEDS: FUROSEMIDE 40 MG/4 ML VIAL (J1940) IV SCH (08:21)
[2018-10-08 14:00] VITALS: BP 144/76
--- NOTE | 2018-10-08 14:24 | IPNPDOC ---
Date Seen The patient was seen on 10/08/18. Progress Note SUBJECTIVE: complaining of significant left leg pain denies fever reports she has redness which is new OBJECTIVE PHYSICAL EXAMINATION: VITAL SIGNS: Please see below. GENERAL: NAD EXTREMITIES: left leg tight tender slightly tender to touch NEUROLOGICAL: sensation intact LABORATORY DATA, IMAGING STUDIES, MICROBIOLOGY: Please see below. ASSESSMENT AND PLAN: This is a -year-old [RACE] [GENDER] with . PROBLEMS: #Left leg swelling and pain There is no signs of compartment syndrome, pulsation is preserved, left distal extremity is warm, sensation is intact, no pallor So far no improvement.ID,Dr Hunt was consulted by previous hospitalist who left message for her, but she is off this week CRP is elevated, but ESR is within normal limits. There is no leukocytosis. US is negative for DVT check CT lower extremitiy todau to evaluate for fluid vs blood ALT-70 Score to diagnose LE Cellulitis = 2 points = reassess = > 83.3% likelihood of cellulitis was On Ceftaroline now off tramadol for pain Leg elevation she does not appear to be overtly volume overloaded. Furthermore unilateral sx goes against CHF. Im going to stop lasix 40mg IV bid, and transition back to las ix 40mg po daily. Follows w dr Cosby as outpatient (2) Diabetes Problem Text: On ssi.Hgba1c 6.8 (3) Obesity Problem Text: Educated weight loss through diet and exercises. (4) EDGARD (obstructive sleep apnea) Problem Text: On home CPAP (5) Anxiety and depression Problem Text: Continue routine meds (6) Atrial flutter Problem Text: On Xarelto (7) COPD (chronic obstructive pulmonary disease) Status: Chronic Problem Text: Stable,continue current meds VS, I&O, 24H, Fishbone Vital Signs/I&O Vital Signs Date Time Temp Pulse Resp B/P (MAP) Pulse Ox O2 Delivery O2 Flow Rate FiO2 10/08/18 06:05 18 10/08/18 06:00 97.5 72 147/67 (93) 96 10/05/18 13:13 Room Air I&O- Last 24 Hours up to 6 AM 10/08/18 06:00 Intake Total 590 ml Output Total 800 ml Balance -210 ml Laboratory Data 24H LABS Laboratory Tests 2 10/07/18 16:53: Bedside Glucose (Misc Panel) 109 10/08/18 05:25: Nucleated Red Blood Cells % (auto) 0.0, Anion Gap 7L, Glomerular Filtration Rate 45.2, Blood Urea Nitrogen 30H, Creatinine 1.23, Sodium Level 142, Potassium Level 3.7, Chloride Level 103, Carbon Dioxide Level 32, Calcium Level 8.8, Magnesium Level 2.1 CBC/BMP Laboratory Tests 10/08/18 05:25 Red Blood Count 3.75 L, Mean Corpuscular Volume 90.7, Mean Corpuscular Hemoglobin 28.5, Mean Corpuscular Hemoglobin Concent 31.5 L, Red Cell Distribution Width 16.0 H, Calcium Level 8.8 Microbiology Microbiology 10/04/18 Blood Culture - Preliminary, Resulted No Growth after 72 hours. All specime... 10/04/18 Blood Culture - Preliminary, Resulted No Growth after 72 hours. All specime... EDUARDO KINCAID MD Oct 08, 2018 14:24
--- NOTE | 2018-10-08 15:59 | REP ---
HISTORY: Swelling. Previous ORIF is noted with two cancellous screws in the medial malleolus along with multiple cortical screws affixing an internal fixation plate applied to the lateral cortex of the distal fibula. There is no evidence of an acute fracture. Limited CT evaluation of the soft tissues shows no evidence of a mass. There is no gross evidence of knee joint or ankle joint effusion. IMPRESSION: No CT evidence of acute disease. Findings as described above. Electronically Signed by Guilherme Streeter DO 10/08/2018 04:29 P
[2018-10-08] MEDS: ACETAMINOPHEN TAB 650MG DOSE (2X325MG) PO PRN (17:26)
[2018-10-08] MEDS: buPROPion **XL** TABLET 150MG (WELLBUTRIN XL) PO SCH (21:13)
[2018-10-08] MEDS: CitaloPRAM (CeleXA) 20 MG TAB PO SCH (21:13)
[2018-10-08] MEDS: RIVAROXABAN 15 MG TAB (XARELTO) PO SCH (21:15)
[2018-10-08] MEDS: POTASSIUM CHLORIDE 10 MEQ SR TABLET PO SCH (21:15)
[2018-10-08 22:00] VITALS: BP 111/54
--- NOTE | 2018-10-08 22:01 | CR ---
DATE OF CONSULTATION: 10/06/2018 REASON FOR CONSULTATION: Left lower leg swelling and pain. CONSULTING PHYSICIAN: hospitalist service. HISTORY OF PRESENT ILLNESS: The patient is a 77-year-old woman who was admitted on the real estate specialist of October 05 with a complaint of pain and swelling in her left lower leg. She reports that for about 2 months she has noticed significant swelling in the left lower leg. She reports that there have been times when it has seemed quite reddened. Recently it has become even more painful, such that she has trouble walking on it. She has been treated with antibiotics on two prior occasions recently for a diagnosis of cellulitis. She was seen in the emergency department on August 29 and then again on August 30 and was treated with a course of antibiotics. She apparently has also followed up with her primary care provider who has treated her with antibiotics several times. She returned to the emergency department on October 04 complaining of some redness, pain, and swelling. She denies any history of injury recently. She does report having had an open repair of an ankle fracture, she thinks probably 6 or 8 years ago. She also reports a distant history of a deep vein thrombosis in the left lower extremity. She has not had any fevers or chills. She reports that she has tried elevating her leg at home but does not believe this has been helpful. She also reports a history of congestive heart failure, and she is on diuretic therapy for that. Today she has again begun to complain of some tingling in her foot, and the hospitalist was concerned about the possibility of a compartment syndrome and asked me to evaluate the patient regarding her swelling and pain. MEDICATIONS: Include sliding-scale insulin, albuterol, eyedrops for her glaucoma, bupropion hydrochloride, Celexa, Advair, Flonase, Mucinex, potassium chloride, Xarelto, Cardizem, Tylenol, Ultram, and furosemide. ALLERGIES: Reported to PENICILLIN, SULFA, CLINDAMYCIN, CODEINE and MEPERIDINE. SURGICAL HISTORY: Includes: 1. Bilateral cataract surgery. 2. She has had her tonsils out. 3. She has had a pacemaker placed in 2017. 4. She has undergone abdominal hernia repair. 5. She had a left partial mastectomy and sentinel node biopsy in 2014. 6. She reports having had a hysterectomy years ago. 7. She did undergo open reduction and repair of a left ankle fracture. MEDICAL HISTORY: Significant for: 1. Glaucoma. 2. She has a history of atrial fibrillation and has a pacemaker in place. 3. She has a history of congestive heart failure. 4. She has been a smoker but quit 6 years ago. She does report some frequent shortness of breath and indicates that her manager grocery has told her that he thinks this is more likely from her cardiac disease than from lung disease. 5. She has diabetes mellitus type 2. 6. She does have a history of some depression and anxiety. 7. She was treated for breast cancer in 2014. FAMILY HISTORY: Significant for colon cancer and coronary artery disease. SOCIAL HISTORY: She is a former smoker who quit in about 2013. REVIEW OF SYSTEMS: Most significant for her complaints of shortness of breath and her left lower extremity pain and swelling. PHYSICAL EXAMINATION: Today her vital signs showed a temperature of 97.2, pulse of 71, respirations of 18, and a blood pressure of 130/76. She is alert and oriented. She had been walking in the [place] with a walker just before I came to see her. She is able to be up out of the chair under her own power but does walk with limiting her weight on her left foot somewhat. The examination is limited primarily to her lower extremities. Inspection shows that she has some pitting edema of both lower extremities up to the knee. This is perhaps slightly worse on the left-hand side, particularly in the upper half of the lower leg. She does not have any significant redness. There is some very superficial peeling of dry skin on the lateral aspect of her left lower leg. She has palpable dorsalis pedis pulses bilaterally, though the right is a little more easily palpated because of the slightly lesser degree of edema on the right than the left. She does complain of tenderness on palpation, particularly in the upper portion of the lower leg and even up in the distal thigh, slightly above the knee joint on the left. There are no open wounds evident. Tissues all appear well vascularized. LABORATORY STUDIES: This morning she had a CBC that showed a white count of 6, hemoglobin of 10, hematocrit of 34, and platelet count of 114,000. On the October 04 her differential showed 75% neutrophils, 14% lymphocytes, and 7% monocytes. Chemistry profile this morning showed a sodium of 143, potassium 4.3, chloride 107, CO2 of 30, BUN of 21, creatinine 1.1, and a glucose of 104. Her C-reactive protein on the evening of October 04 was 0.9. She had a duplex scan of the left lower leg on October 04, which showed no evidence of a deep vein thrombosis. IMPRESSION: Left lower leg swelling and pain. DISCUSSION AND RECOMMENDATIONS: My impression is that the patient's left lower extremity pain and swelling is related primarily to significant edema. She has not had any convincing evidence for cellulitis in her left lower extremity. At this point in particular I do not see any evidence of redness. She has no open wounds or drainage. Her white count is normal and she denies any history of fevers or chills. Looking back in the record, she has had several normal white blood cell counts during the course of her treatment for her leg swelling. She does have a history of prior deep vein thrombosis on the left by her report and certainly some degree of venous valvular insufficiency would be expected. She does not have any current acute thrombosis. She does have a history of congestive heart failure and past history of lower extremity swelling. At this time she does have edema in both lower extremities, though it is somewhat worse on the left. I believe that efforts to decrease the swelling are likely to be the most productive in making her more comfortable. I would recommend elevating the foot of her bed at all times when she is in bed and discouraging her from sitting up in a chair for any prolonged period with her feet dependent. It may be appropriate to increase her diuretic therapy but I will leave this to the discretion of the hospitalist and possibly the sports anchor. I do think use of compression hose or a compression sleeve perhaps with night time pneumatic compression would be appropriate. Until some of her swelling is diminished it may be that she will decline compression therapy because of discomfort but if some inroad can be made in decreasing the edema and her discomfort diminishes she may be more open to the idea of custom compression hose. I discussed my recommendations with the hospitalist on duty. YOBANI
[2018-10-09 06:00] VITALS: BP 150/68
[2018-10-09 06:41] LABS: HEMATOCRIT 32.9 % (36.0-47.0); HEMOGLOBIN 10.4 g/dl (12.0-15.5); MEAN CORPUSCULAR HEMOGLOBIN 28.4 pg (27.0-33.0); MEAN CORPUSCULAR HGB CONC 31.6 g/dl (32.0-36.5); MEAN CORPUSCULAR VOLUME 89.9 fl (80.0-96.0); PLATELET COUNT, AUTOMATED 129 10^3/uL (150-450); RED BLOOD COUNT 3.66 10^6/uL (4.00-5.40); WHITE BLOOD COUNT 6.6 10^3/uL (4.0-10.0)
[2018-10-09 06:58] LABS: BLOOD UREA NITROGEN 30 MG/DL (7-18); CALCIUM LEVEL 9.2 MG/DL (8.8-10.2); CARBON DIOXIDE LEVEL 33 MEQ/L (21-32); CHLORIDE LEVEL 104 MEQ/L (98-107); CREATININE FOR GFR 1.29 MG/DL (0.55-1.30); GLOMERULAR FILTRATION RATE 42.8 (>39); GLUCOSE, FASTING 110 MG/DL (70-100); MAGNESIUM LEVEL 2.2 MG/DL (1.8-2.4); POTASSIUM SERUM 3.9 MEQ/L (3.5-5.1); SODIUM LEVEL 141 MEQ/L (136-145)
[2018-10-09] MEDS: ADVAIR HFA 230/21MCG INHALER INH SCH ×2 (08:15→21:01)
[2018-10-09] MEDS ORDERED: FUROSEMIDE 40 MG TAB PO SCH (09:00)
[2018-10-09] MEDS: BRIMONIDINE 0.1% OPHTH SOLN 5 ML OU SCH ×2 (09:15→21:17)
[2018-10-09] MEDS: PILOCARPINE 4% OPHTH SOLN 15 ML OU SCH ×2 (09:15→21:19)
[2018-10-09] MEDS: FLUTICASONE PROP 0.05% NASAL SPRAY 16 GM (FLONASE) SCH (09:15)
[2018-10-09] MEDS: HumaLOG INSULIN (NovoLOG) PER UNIT SC SCH ×4 (09:16→21:19)
[2018-10-09] MEDS ORDERED: CEFTAROLINE FOSAMIL 300 MG in D5W MINI-BAG PLUS 50 ML IV SCH (09:45)
[2018-10-09 10:02] LABS: C REACTIVE PROTEIN QUANTITATIV 1.12 MG/DL (0.00-0.30)
[2018-10-09] MEDS ORDERED: CEFTAROLINE FOSAMIL 300 MG in D5W 50 ML IV SCH (12:00)
[2018-10-09] MEDS ORDERED: LEVALBUTEROL 1.25 MG/0.5 ML CONCENTRATE NEB INH PRN (12:15)
[2018-10-09 12:18] LABS: CK-MB VALUE MASS < 1.0 NG/ML (<3.6); CPK CREATINE PHOSPHOKINASE 26 U/L (26-192); MB/CK RELATIVE INDEX 3.85 (< OR =4); NT-PRO BNP 148 PG/ML (<450); TROPONIN I < 0.02 NG/ML (< 0.10)
--- NOTE | 2018-10-09 12:36 | REP ---
PA and lateral chest: Comparison is 01/07/2018. There is chronic cardiomegaly, unchanged. There is a dual-chamber pacemaker, unchanged. There is no pulmonary edema or pleural effusion. There are no focal infiltrates. There are no masses. The adalid, mediastinum, skeletal structures are unchanged. Impression: Chronic cardiomegaly. Dual chamber pacemaker, unchanged. No acute cardiopulmonary findings. Electronically Signed by Ez Boo MD 10/09/2018 12:28 P
[2018-10-09] MEDS ORDERED: LEVALBUTEROL 1.25 MG/0.5 ML CONCENTRATE NEB NEB ONE (13:00)
[2018-10-09] MEDS ORDERED: predniSONE 20 MG TAB PO ONE (13:00)
[2018-10-09] MEDS: CEFTAROLINE FOSAMIL 400 MG in D5W MINI-BAG PLUS 50 ML IV SCH ×2 (13:26→23:40)
[2018-10-09] MEDS: FUROSEMIDE 20 MG/2 ML VIAL (J1940) IV SCH ×2 (13:27→18:04)
[2018-10-09 14:00] VITALS: BP 132/71
[2018-10-09 15:10] LABS: ERYTHROCYTE SEDIMENTATION RATE 14 mm/hr (0-30)
[2018-10-09] MEDS: LEVALBUTEROL 1.25 MG/0.5 ML CONCENTRATE NEB INH SCH ×2 (16:00→20:00)
--- NOTE | 2018-10-09 17:57 | IPN ---
DATE: 10/09/2018 Patient complains of pain in the left lower extremity with persistent swelling and erythema. She was hypothermic at 96.6 this morning. White count was normal. Pain is worse when she attempts to ambulate or move it. Improved with tramadol 50 mg. She has had no significant improvement with the swelling despite Lasix diuresis for the past 3 days. She had been net negative on October 06 with negative 1.8 liters and on October 07 with negative 890 mL. Her weight has not been checked with admission weigh of 119.[address] of the extremity on October 08 showed no evidence of any acute disease. Soft tissues show no evidence of mass. No evidence of knee joint or ankle joint effusion. There are multiple cortical screws affixing an internal fixation plate applied to the lateral cortex of the distal fibula in the left lower extremity. Per the patient, this was done about 6 years ago, and she had been stable since. She otherwise denies any chills. She is quite anxious to get rid of the swelling. Her C-reactive protein (CRP) was slightly elevated at 1.12 this morning, and she has been off of antibiotics since yesterday. Patient does complain of paroxysmal nocturnal dyspnea requiring three pillow orthopnea with dyspnea on exertion from going from bedroom to the bathroom. Her ribbing machine operator has encouraged her to see her cardiologists for further evaluation of this shortness of breath, as this was felt to be due to congestive heart failure and not due to chronic obstructive pulmonary disease (COPD). Patient did see her commissioner of internal revenue and had an echocardiogram done about 6 months ago. The latest echo we had on our EHR is 2017, which showed preserved ejection fraction and grade 2 diastolic dysfunction with no significant valvular disease. VITAL SIGNS: Temperature 96.6, pulse 79, respiratory rate 18, blood pressure 150/68, 91% on room air. GENERAL: Patient speaks in full sentences. There is no conversational dyspnea. HEENT Anicteric. No jaundice. Pupils round and reactive. Thick neck. Supple. No cervical lymphadenopathy or thyromegaly. Nares are clear. Extraocular muscles are intact. LUNGS: Diminished. Distant breath sounds with faint expiratory wheezes. HEART: S1, S2, sinus rhythm. No murmurs, rubs, or gallops. ABDOMEN: Obese, soft, nontender, nondistended. EXTREMITIES: Erythema, swelling of the left lower extremity. Calf is much bigger than the right lower extremity. Distal pulses, dorsalis pedis, posterior tibialis are noted. Pitting edema up to the knee on the left side, about 2+ pitting edema. Right is 1+. LABORATORY DATA: CRP 1.12. White count 6.6, hemoglobin 10, hematocrit 32, platelet count 129. Admission platelet count was 136. Metabolic panel has been reviewed. BNP on September 28 was 98.3. Microbiology: On October 04, two sets of blood cultures are negative. IMAGING STUDIES: Chest x-ray is pending. CT of the extremity: No mass. Vascular ultrasound of the left lower extremity: No deep vein thrombosis (DVT). ASSESSMENT AND PLAN: This is a 77-year-old female with past medical history of chronic obstructive pulmonary disease (COPD), atrial flutter, status post mechanical cardioversion, on chronic Xarelto, obstructive sleep apnea (EDGARD), [id number] diabetes, chronic diastolic heart failure with preserved ejection fraction, sick sinus syndrome with dual-chamber pacemaker, anxiety, depression, breast cancer with left partial mastectomy, hernia repair, glaucoma, appendectomy, hysterectomy, presented to the emergency room with left lower extremity swelling and redness, status post doxycycline, Keflex, and Levaquin as outpatient. Found to have pitting edema of the lower extremity with no signs of compartment syndrome. Evaluated by general surgery. CURRENT ACTIVE ISSUES: 1. Left lower extremity edema. Differential diagnosis includes cellulitis versus venous insufficiency. Patient has been evaluated with venous ultrasound, which showed no deep vein thrombosis (DVT). CT of the lower extremity shows no compartment syndrome. Patient will be continued on antibiotics at this time with ceftaroline due to allergies to penicillin, sulfa, clindamycin. Will check methicillin-resistant Staphylococcus aureus (MRSA). C-reactive protein is only slightly elevated. Patient is slightly hypothermic. We will do a trial of diuresis, fluid restriction, strict intake and output. Will await basic metabolic panel (BMP) and cardiac marker results and recheck for clinical improvement in the morning Monitor electrolytes changes. 2. Shortness of breath. At this time with lower extremity edema, concerning for possible congestive heart failure (CHF) exacerbation with preserved ejection fraction, diastolic dysfunction. Patient has been placed on Lasix 200 mg intravenous (IV) every 6 hourly to net negative balance of 1 liter daily. Will need to monitor patient on telemetry as we are diuresing. She does have a pacemaker for a history of sick sinus syndrome. Currently on anticoagulation. 3. Cardiac markers have been checked. Strict intake and output and 2-liter fluid restriction. 4. Morbid obesity with body mass index (BMI) of 48.3, complicating care and at risk of worsening respiratory distress. Continue to monitor on routine vital signs. 5. Type 2 diabetes, chronic. A1c is 6.8, on consistent-carbohydrate diet, insulin sliding scale, and hypoglycemic protocol. 6. Obstructive sleep apnea secondary to obesity, on home continuous positive airway pressure (CPAP) at home setting. 7. Anxiety, depression, on chronic routine medications. 8. Atrial flutter, on Xarelto. 9. History of sick sinus syndrome, status post pacemaker. 10. Chronic obstructive pulmonary disease (COPD) with bilateral wheezing. Will give a short course of prednisone and [id number] nebulizers. MTDD
[2018-10-09 18:30] LABS: CALCIUM LEVEL 9.6 MG/DL (8.8-10.2); CREATININE FOR GFR 1.33 MG/DL (0.55-1.30); GLOMERULAR FILTRATION RATE 41.3 (>39); POTASSIUM SERUM 3.9 MEQ/L (3.5-5.1)
[2018-10-09 21:11] VITALS: BP 157/64
[2018-10-09] MEDS: CitaloPRAM (CeleXA) 20 MG TAB PO SCH (21:18)
[2018-10-09] MEDS: RIVAROXABAN 15 MG TAB (XARELTO) PO SCH (21:18)
[2018-10-09] MEDS: buPROPion **XL** TABLET 150MG (WELLBUTRIN XL) PO SCH (21:18)
[2018-10-10] MEDS: traMADol 50 MG TAB PO PRN (03:36)
[2018-10-10] MEDS: LEVALBUTEROL 1.25 MG/0.5 ML CONCENTRATE NEB INH SCH ×5 (03:47→15:37)
[2018-10-10 05:57] LABS: HEMATOCRIT 32.6 % (36.0-47.0); HEMOGLOBIN 10.5 g/dl (12.0-15.5); MEAN CORPUSCULAR HGB CONC 32.2 g/dl (32.0-36.5); MEAN CORPUSCULAR VOLUME 90.1 fl (80.0-96.0); PLATELET COUNT, AUTOMATED 129 10^3/uL (150-450); RED BLOOD COUNT 3.62 10^6/uL (4.00-5.40); WHITE BLOOD COUNT 9.5 10^3/uL (4.0-10.0)
[2018-10-10 06:00] VITALS: BP 146/71
[2018-10-10 06:17] LABS: CALCIUM LEVEL 9.3 MG/DL (8.8-10.2); CREATININE FOR GFR 1.18 MG/DL (0.55-1.30); GLOMERULAR FILTRATION RATE 47.4 (>39); MAGNESIUM LEVEL 2.2 MG/DL (1.8-2.4); POTASSIUM SERUM 3.8 MEQ/L (3.5-5.1)
[2018-10-10] MEDS: ADVAIR HFA 230/21MCG INHALER INH SCH ×2 (07:33→19:38)
[2018-10-10] MEDS: HumaLOG INSULIN (NovoLOG) PER UNIT SC SCH ×4 (08:30→21:00)
[2018-10-10 09:00] VITALS: BP 154/80
[2018-10-10] MEDS: predniSONE 20 MG TAB PO SCH (09:01)
[2018-10-10] MEDS: PILOCARPINE 4% OPHTH SOLN 15 ML OU SCH ×2 (09:01→21:29)
[2018-10-10] MEDS: FLUTICASONE PROP 0.05% NASAL SPRAY 16 GM (FLONASE) SCH (09:01)
[2018-10-10] MEDS: BRIMONIDINE 0.1% OPHTH SOLN 5 ML OU SCH ×2 (09:01→21:29)
[2018-10-10] MEDS: CEFTAROLINE FOSAMIL 400 MG in D5W MINI-BAG PLUS 50 ML IV SCH (11:19)
[2018-10-10 14:00] VITALS: BP 142/62
[2018-10-10] MEDS ORDERED: FUROSEMIDE 40 MG/4 ML VIAL (J1940) IV ONE (14:30)
--- NOTE | 2018-10-10 14:44 | ECHO ---
DATE OF PROCEDURE: 10/10/2018 REFERRING PHYSICIAN; Dr. Milian INDICATION: Dyspnea. HEIGHT: 157 cm WEIGHT: 120 kg DIMENSIONS: IV: 1.2 LV: 5.4 LVPW: 1.4 LA: 4.4 Aorta: 2.8 Left atrium volume index: 32 Mitral E wave velocity: 103, A wave: 95 E prime septal: 4.1 E prime lateral: 6.0 IVC: 1.6 FINDINGS: The study is of fair technical quality corresponding to patient's body habitus. Left ventricle is of normal size. There is mild left ventricular hypertrophy and preserved LV systolic function, I estimate LVEF around 65-70%. No segmental wall motion abnormalities are appreciated. Right ventricle was poorly visualized but based on limited views appears normal. Left atrium is mildly enlarged. Right atrium is probably normal size. Aortic valve is mildly sclerotic but has three cusps and preserved mobility. Mitral valve is normal. Tricuspid valve also appears normal. Pulmonic valve was not well seen. No pericardial effusion is present. Inferior vena cava is normal size. Aortic root and aortic arch were poorly seen. Doppler interrogation reveals no aortic stenosis or insufficiency. There is trace mitral and tricuspid insufficiency. Calculated pulmonary artery pressure is in 50s corresponding to minimum moderate pulmonary hypertension. Mitral inflow pattern and tissue Doppler imaging of mitral annulus reveals grade 2 diastolic dysfunction. CONCLUSIONS: 1. Study is of fair technical quality. 2. Normal LV size with mild LVH and preserved LV systolic function. Grade 2 diastolic dysfunction. 3. No significant valvular disease. 4. Probably normal central venous pressure but at least moderate pulmonary hypertension. COMMENTS: Subacute bacterial endocarditis (SBE) prophylaxis is not recommended. The study is most consistent with hypertensive heart disease with resulting diastolic dysfunction.
[2018-10-10] MEDS ORDERED: metOLazone 5 MG TAB PO ONE (15:00)
[2018-10-10] MEDS: NYSTATIN 100,000 UNITS/GM TOPICAL PWD 15 GM TOP SCH ×2 (16:17→21:29)
[2018-10-10] MEDS: FUROSEMIDE 40 MG/4 ML VIAL (J1940) IV SCH (18:00)
[2018-10-10] MEDS: CitaloPRAM (CeleXA) 20 MG TAB PO SCH (21:25)
[2018-10-10] MEDS: RIVAROXABAN 15 MG TAB (XARELTO) PO SCH (21:26)
[2018-10-10] MEDS: buPROPion **XL** TABLET 150MG (WELLBUTRIN XL) PO SCH (21:28)
[2018-10-10 22:00] VITALS: BP 120/77
[2018-10-11] MEDS: CEFTAROLINE FOSAMIL 400 MG in D5W MINI-BAG PLUS 50 ML IV SCH ×3 (00:17→23:21)
[2018-10-11 01:27] LABS: C REACTIVE PROTEIN QUANTITATIV 0.54 MG/DL (0.00-0.30); CALCIUM LEVEL 9.3 MG/DL (8.8-10.2); CREATININE FOR GFR 1.72 MG/DL (0.55-1.30); GLOMERULAR FILTRATION RATE 30.7 (>39); MAGNESIUM LEVEL 2.1 MG/DL (1.8-2.4); POTASSIUM SERUM 3.6 MEQ/L (3.5-5.1)
[2018-10-11] MEDS: FUROSEMIDE 40 MG/4 ML VIAL (J1940) IV SCH ×3 (05:24→23:21)
[2018-10-11 05:43] LABS: HEMATOCRIT 32.9 % (36.0-47.0); HEMOGLOBIN 10.4 g/dl (12.0-15.5); MEAN CORPUSCULAR HEMOGLOBIN 28.2 pg (27.0-33.0); MEAN CORPUSCULAR HGB CONC 31.6 g/dl (32.0-36.5); MEAN CORPUSCULAR VOLUME 89.2 fl (80.0-96.0); PLATELET COUNT, AUTOMATED 135 10^3/uL (150-450); RED BLOOD COUNT 3.69 10^6/uL (4.00-5.40); WHITE BLOOD COUNT 8.8 10^3/uL (4.0-10.0)
[2018-10-11 06:00] VITALS: BP 144/84
[2018-10-11 06:02] LABS: CALCIUM LEVEL 9.1 MG/DL (8.8-10.2); CREATININE FOR GFR 1.53 MG/DL (0.55-1.30); GLOMERULAR FILTRATION RATE 35.1 (>39); MAGNESIUM LEVEL 2.1 MG/DL (1.8-2.4); POTASSIUM SERUM 3.4 MEQ/L (3.5-5.1)
[2018-10-11] MEDS: LEVALBUTEROL 1.25 MG/0.5 ML CONCENTRATE NEB INH SCH ×4 (07:30→20:00)
[2018-10-11] MEDS: ADVAIR HFA 230/21MCG INHALER INH SCH ×2 (07:30→20:05)
[2018-10-11] MEDS ORDERED: FUROSEMIDE 40 MG/4 ML VIAL (J1940) IV ONE (07:30)
[2018-10-11] MEDS: POTASSIUM CHLORIDE 10 MEQ SR TABLET PO SCH ×2 (09:44→21:04)
[2018-10-11] MEDS: metOLazone 5 MG TAB PO SCH (09:45)
[2018-10-11] MEDS: predniSONE 20 MG TAB PO SCH (09:45)
[2018-10-11] MEDS: HumaLOG INSULIN (NovoLOG) PER UNIT SC SCH ×4 (09:45→21:00)
[2018-10-11] MEDS: NYSTATIN 100,000 UNITS/GM TOPICAL PWD 15 GM TOP SCH ×3 (09:49→21:07)
[2018-10-11] MEDS: BRIMONIDINE 0.1% OPHTH SOLN 5 ML OU SCH ×2 (09:49→21:04)
[2018-10-11] MEDS: FLUTICASONE PROP 0.05% NASAL SPRAY 16 GM (FLONASE) SCH (09:49)
[2018-10-11] MEDS: PILOCARPINE 4% OPHTH SOLN 15 ML OU SCH ×2 (09:49→21:05)
[2018-10-11 12:47] LABS: CALCIUM LEVEL 9.2 MG/DL (8.8-10.2); CREATININE FOR GFR 1.53 MG/DL (0.55-1.30); GLOMERULAR FILTRATION RATE 35.1 (>39); POTASSIUM SERUM 3.5 MEQ/L (3.5-5.1)
[2018-10-11 14:00] VITALS: BP 129/78
[2018-10-11 18:27] LABS: CALCIUM LEVEL 9.5 MG/DL (8.8-10.2); CREATININE FOR GFR 1.47 MG/DL (0.55-1.30); GLOMERULAR FILTRATION RATE 36.8 (>39); MAGNESIUM LEVEL 2.1 MG/DL (1.8-2.4); POTASSIUM SERUM 4.2 MEQ/L (3.5-5.1)
[2018-10-11] MEDS: CitaloPRAM (CeleXA) 20 MG TAB PO SCH (21:03)
[2018-10-11] MEDS: RIVAROXABAN 15 MG TAB (XARELTO) PO SCH (21:03)
[2018-10-11] MEDS: buPROPion **XL** TABLET 150MG (WELLBUTRIN XL) PO SCH (21:03)
[2018-10-11 22:00] VITALS: BP 132/79
[2018-10-11 23:20] VITALS: BP 135/60
[2018-10-12 00:25] LABS: CREATININE FOR GFR 1.53 MG/DL (0.55-1.30); GLOMERULAR FILTRATION RATE 35.1 (>39); MAGNESIUM LEVEL 2.1 MG/DL (1.8-2.4); POTASSIUM SERUM 4.1 MEQ/L (3.5-5.1)
[2018-10-12] MEDS: LEVALBUTEROL 1.25 MG/0.5 ML CONCENTRATE NEB INH SCH ×5 (04:00→20:00)
[2018-10-12] MEDS: FUROSEMIDE 40 MG/4 ML VIAL (J1940) IV SCH (05:40)
[2018-10-12 05:42] VITALS: BP 131/75
[2018-10-12 06:08] LABS: HEMATOCRIT 36.6 % (36.0-47.0); HEMOGLOBIN 11.6 g/dl (12.0-15.5); MEAN CORPUSCULAR HEMOGLOBIN 28.4 pg (27.0-33.0); MEAN CORPUSCULAR HGB CONC 31.7 g/dl (32.0-36.5); MEAN CORPUSCULAR VOLUME 89.7 fl (80.0-96.0); PLATELET COUNT, AUTOMATED 161 10^3/uL (150-450); RED BLOOD COUNT 4.08 10^6/uL (4.00-5.40); WHITE BLOOD COUNT 10.7 10^3/uL (4.0-10.0)
[2018-10-12 06:27] LABS: CALCIUM LEVEL 9.9 MG/DL (8.8-10.2); CREATININE FOR GFR 1.46 MG/DL (0.55-1.30); GLOMERULAR FILTRATION RATE 37.1 (>39); POTASSIUM SERUM 3.5 MEQ/L (3.5-5.1)
[2018-10-12] MEDS: HumaLOG INSULIN (NovoLOG) PER UNIT SC SCH ×4 (10:33→21:00)
[2018-10-12] MEDS: PILOCARPINE 4% OPHTH SOLN 15 ML OU SCH ×2 (10:34→22:35)
[2018-10-12] MEDS: BRIMONIDINE 0.1% OPHTH SOLN 5 ML OU SCH ×2 (10:34→22:35)
[2018-10-12] MEDS: FLUTICASONE PROP 0.05% NASAL SPRAY 16 GM (FLONASE) SCH (10:34)
[2018-10-12] MEDS: POTASSIUM CHLORIDE 10 MEQ SR TABLET PO SCH ×2 (10:34→22:32)
[2018-10-12] MEDS: metOLazone 5 MG TAB PO SCH (10:34)
[2018-10-12] MEDS: NYSTATIN 100,000 UNITS/GM TOPICAL PWD 15 GM TOP SCH ×3 (10:34→22:36)
--- NOTE | 2018-10-12 11:03 | IPN ---
DATE: 10/10/2018 The patient still complains of dyspnea on exertion after walking about 10 to 15 feet. Output yesterday was minimal at 700 mL after Lasix 40 mg every 6 hours times two doses. The patient's creatinine had increased slightly to 1.33, this morning it was improved to 1.18. She denies any dizziness, lightheadedness. She still has dyspnea on exertion without paroxysmal nocturnal dyspnea or orthopnea. Echocardiogram has been performed, the results of which are not available at this time. The patient still complains of increased lower extremity edema, which is only slightly improved from yesterday. She has gained about 15 to 20 pounds for the past one month, currently at 119.4 kg with admission weight of 112.7. The patient otherwise denies any chest pain, pressure, or tightness. Denies any hematemesis, bright red blood per rectum, melena. Has no audible wheezing at this time. She was told by her quality assurance assessor that her lungs are fine. Review of previous echocardiogram in 2018, read by Dr. Nugent, 05/19/2017, showed an ejection fraction of 70 to 75% with hyperdynamic systolic function, moderate left ventricular hypertrophy with grade 2 diastolic dysfunction. There is mild pulmonary hypertension, about 30 mmHg. VITAL SIGNS: Temperature 97, pulse 72, respiratory rate 20, blood pressure 154/80, 94% on room air. GENERAL: Awake, alert, oriented times three. The patient has no conversational dyspnea, able to speak in full sentences. Face is symmetric. Tongue is midline. No oral thrush noted. No jugular venous distention (JVD), thyromegaly or cervical lymphadenopathy. Lungs are diminished but clear to auscultation. No wheezing, rales or rhonchi. Heart: S1, S2. Sinus rhythm. No murmurs, rubs or gallops. Abdomen is obese, soft, nontender, nondistended. Extremities: 3+ pitting edema, left greater than right. Some erythema, which is improved in the left lower extremity. LABORATORY DATA: White count 9.5, hemoglobin 10, hematocrit 32, platelet count 129. Sodium 138, potassium 3.8, chloride 104, bicarbonate 30, BUN 32, creatinine 1.1, glucose 138. BNP was 148 yesterday. Procalcitonin is still pending. IMAGING STUDIES: Chest x-ray 10/09/2018 shows chronic cardiomegaly, dual chamber pacemaker unchanged. No acute cardiopulmonary findings. No pulmonary edema, pleural effusion. No focal infiltrates or masses. ASSESSMENT AND PLAN: This is a 77-year-old female with a past medical history significant for chronic obstructive pulmonary disease (COPD), atrial flutter, status post mechanical cardioversion on chronic Xarelto, obstructive sleep apnea, currently does not have her CPAP machine at the bedside, [id number] diabetic, chronic diastolic heart failure with preserved ejection fraction of 70% on 2018 echo, mild pulmonary hypertension with PA pressure of 30 mmHg, sick sinus syndrome with dual chamber pacemaker, anxiety, depression, breast cancer with partial mastectomy, hernia repair, glaucoma, appendectomy, hysterectomy, who presented to the emergency room with left lower extremity swelling and redness, status post doxycycline, Keflex and Levaquin as an outpatient, found to have bilateral pitting edema, left greater than right with no signs of compartment syndrome after evaluation by general surgery and CT of the extremity was negative, as well as venous ultrasound was negative for deep vein thrombosis (DVT). ACTIVE ISSUES: 1. Bilateral lower extremity edema, left greater than the right, venous ultrasound was negative for DVT, CT of the extremity shows no signs of abscess or fasciitis. Currently on antibiotics, awaiting procalcitonin. Most likely looking like right sided congestive heart failure (CHF) and currently on IV Lasix for diuresis. Strict input and output, fluid restriction, and daily weights. If the calcitonin returns negative, antibiotics will be discontinued. 2. Cor pulmonale, right sided congestive heart failure with lower extremity edema and clear lungs. BNP is not elevated, left side of the heart is not affected as yet. The patient does have documentation of mild pulmonary hypertension on the 2018 echocardiogram. She is currently being diuresed with Lasix 40 mg IV every 6 hours to net negative balance of 1 liter. She has been given one dose of Zaroxolyn 5 mg times one. Cardiac markers have been obtained. Telemetry was unremarkable overnight. Cardiac markers were negative. 3. Pulmonary hypertension with PA pressure of 30 mmHg on the echo done in 2018. Repeat echocardiogram was performed this morning, 10/10/2018, the results of which are still pending. We will continue with further diuresis. No obvious severe valvular disorder noted on physical examination. Cardiac markers remain negative. 4. Morbid obesity with Body Mass Index (BMI) of 48.3 complicating her care with worsening hypercapnia and hypoventilation obesity syndrome. She noted that last evening there was a concern about hypoxia and we will start on nocturnal oximetry and continue with pulse oximetry if recurrent. 5. Type 2 diabetes with A1/c of 6.8. On consistent carbohydrate diet, sliding scale and hypoglycemic protocol. 6. Obstructive sleep apnea secondary to obesity. Encouraged to use her CPAP and oxygen at night and when she naps. 7. Anxiety and depression. Resumed on her home medications. 8. Atrial flutter, rate controlled currently with heart rate ranging from 70 to 84, chronically anticoagulated with Xarelto 15 mg at night. 9. Thrombocytopenia with admission platelet count of 136, currently at 129. No signs of active bleeding. 10. Chronic anemia, most likely iron deficiency. No active signs of GI bleed. Denies melena, black/tarry stools. 11. Shortness of breath. Respiratory panel is negative. Chest x-ray is unremarkable. Saturating well on room air at 95%. Continue with Lasix diuresis for now. MTDD
--- NOTE | 2018-10-12 11:20 | IPN ---
DATE: 10/11/2018 Overnight with IV Lasix, patient diuresed 2.5 liters out and was net negative 1060 with a decrease in weight from 119.4 kg to 118.2 kg. Patient continues to complain of dyspnea and dyspnea on exertion. She continues to complain of paroxysmal nocturnal dyspnea orthopnea. Chest x-ray was negative for pulmonary edema or pulmonary vascular congestion. Echocardiogram is still pending. She denies any chest pain, pressure or tightness. Lower extremity edema is improving, currently pitting with 3+ edema bilaterally, left greater than right. Erythema is improved. Patient has less pain with ambulation. She has no fever and no chills. She complains of feeling very sleepy this morning. According to the , she does not have a CPAP at home and usually only wears oxygen at night. Vital Signs: Temperature 96.8, pulse 90, respiratory rate 19, blood pressure 144/84, 94% on room air. Generally, patient is awake, alert, oriented. Answers questions appropriately. No use of respiratory accessory muscles. Lungs are clear to auscultation. No wheezing rales, or rhonchi. Heart: S1, S2, sinus rhythm. No murmurs, rubs or gallops. Abdomen obese, soft , nontender, nondistended. Positive bowel sounds times four quadrants. No hepatosplenomegaly. Extremities: Erythema left lower extremity has resolved. Calf is much bigger than the right. Distal pulses, dorsalis pedis and posterior tibialis are noted at 2+. Pitting edema to the left knee on the left side. 2+ edema with right lower extremity having 1+ edema. Laboratory data, imaging studies and microbiology have been reviewed. ASSESSMENT/PLAN: This is a 77-year-old morbidly obese female with a body mass index (BMI) 47.7, end-stage chronic obstructive pulmonary disease (COPD) on home oxygen at night, atrial flutter status post mechanical cardioversion on chronic Xarelto, obstructive sleep apnea not on CPAP, non-insulin dependent diabetic, chronic diastolic heart failure with preserved ejection fraction, sick sinus syndrome with dual-chamber pacer, anxiety, depression, breast carcinoma with left partial mastectomy, hernia repair, glaucoma, appendectomy, hysterectomy. Presented to the emergency room with left lower extremity swelling, redness, and tenderness, status post doxycycline, Keflex, Levaquin as an outpatient. Found to have pitting edema with no signs of compartment syndrome evaluated by general surgery with venous Dopplers being negative and CT of the left extremity edema showing no abscess. Current issues are as follows: 1. Right-sided congestive heart failure: Cor pulmonale with clear lungs but significant pulmonary hypertension on echocardiogram with pulmonary artery (PA) pressures of 50 mmHg. Patient is currently being treated for congestive heart failure, preserved ejection fraction of 65%, diastolic dysfunction. She is kept on strict Input and output, daily weights, 2 liter fluid restriction and Lasix intravenously with holding parameters for systolic pressure less than 100 and with serial creatinine monitoring. Patient has been net negative for the past 2 days. Weight is still quite elevated. 2. Questionable left lower extremity cellulitis. Patient has been afebrile. No white count. Erythema and swelling has improved with diuresis. There is no deep venous thrombosis on venous Dopplers. CT of the lower extremity shows no abscess formation. If procalcitonin is negative, will discontinue current antibiotic with ceftaroline. 3. Pulmonary hypertension: Moderate PA pressure of 50 mmHg complicating care and causing right-sided heart failure. For completeness, will need to rule out chronic pulmonary embolus (PE), therefore, since creatinine is not optimal currently, will obtain a V/Q scan in the morning to rule out PE. Venous Doppler, as already mentioned, there is no DVT. 4. Morbid obesity: BMI 48.3 complicating care. At risk of worsening respiratory distress. 5. Type 2 diabetes, A1c 6.8 on consistent carbohydrate diet, insulin sliding scale, hypoglycemic protocol. 6. Obstructive sleep apnea (EDGARD) secondary to obesity, hyperventilation syndrome. Patient does not have any CPAP at home. Will check a nocturnal oxymetry and continue with pulse ox and oxygen while the patient is napping or night time. 7. Anxiety/depression: On chronic home medications. 8. Atrial flutter: Rate controlled currently and anticoagulated with Xarelto. Ventricular rate has been adequate at 73-90 and she is continued on her home dose of diltiazem 60 mg nightly. DISPOSITION: Discharge home if negative PE and patient has diuresed well on Friday or Friday. [facility]
[2018-10-12] MEDS: CEFTAROLINE FOSAMIL 400 MG in D5W MINI-BAG PLUS 50 ML IV SCH (11:30)
--- NOTE | 2018-10-12 11:38 | NOCOX ---
DATE OF PROCEDURE: 10/11/2018 ORDERED BY: Dr. Milian Study was performed on room air. Excellent technical quality. Mean oxygen saturation for this study 94.6%. Lowest reliably recorded value approximately 90%. On a minimal variability is identified without any significant desaturations. Only one brief area of variability around 0100 hours. IMPRESSION: Acceptable nocturnal oxygenation status on room air. Please correlate clinically.
[2018-10-12] MEDS: ADVAIR HFA 230/21MCG INHALER INH SCH ×2 (13:05→20:57)
[2018-10-12 14:00] VITALS: BP 142/76
--- NOTE | 2018-10-12 18:34 | IPNPDOC ---
Date Seen The patient was seen on 10/12/18. Progress Note SUBJECTIVE: pt still c/o bhatt, LE left>right but improved. no chest pain, pressure, tightness no dizziness or lightheadedness. requested her older sister be updated Lesile, [phone]. Diuresed well overnight, but says "I don't feel well today." no n/v/abd pain/PND, orthopnea, fever, chills, cough. OBJECTIVE PHYSICAL EXAMINATION VITALS: PLS SEE BELOW Generally, patient is awake, alert, oriented. Answers questions appropriately. No use of respiratory accessory muscles. Lungs are clear to auscultation. No wheezing rales, or rhonchi. Heart: S1, S2, sinus rhythm. No murmurs, rubs or gallops. Abdomen obese, soft , nontender, nondistended. Positive bowel sounds times four quadrants. No hepatosplenomegaly. Extremities: Erythema left lower extremity has resolved. Calf is much bigger than the right. Distal pulses, dorsalis pedis and posterior tibialis are noted at 2+. Pitting edema to the left knee on the left side. 2+ edema with right lower extremity having 1+ edema. Laboratory data, imaging studies and microbiology have been reviewed. ASSESSMENT/PLAN: This is a 77-year-old morbidly obese female with a body mass index (BMI) 47.7, end-stage chronic obstructive pulmonary disease (COPD) on home oxygen at night, atrial flutter status post mechanical cardioversion on chronic Xarelto, obstructive sleep apnea not on CPAP, non-insulin dependent diabetic, chronic diastolic heart failure with preserved ejection fraction, sick sinus syndrome with dual-chamber pacer, anxiety, depression, breast carcinoma with left partial mastectomy, hernia repair, glaucoma, appendectomy, hysterectomy. Presented to the emergency room with left lower extremity swelling, redness, and tenderness, status post doxycycline, Keflex, Levaquin as an outpatient. Found to have pitting edema with no signs of compartment syndrome evaluated by general surgery with venous Dopplers being negative and CT of the left extremity edema showing no abscess. Current issues are as follows: 1. Decompensated CHF diastolic dysfunction, preserved EF Right-sided congestive heart failure: Cor pulmonale with clear lungs but significant pulmonary hypertension on echocardiogram with pulmonary artery (PA) pressures of 50 mmHg. Patient is currently being treated for congestive heart failure, preserved ejection fraction of 65%, diastolic dysfunction. She is kept on strict Input and output, daily weights, 2 liter fluid restriction and Lasix intravenously with holding parameters for systolic pressure less than 100 and with serial creatinine monitoring. Patient has been net negative for the past 2 days. Weight is still quite elevated. 2. Questionable left lower extremity cellulitis. Patient has been afebrile. No white count. Erythema and swelling has improved with diuresis. There is no deep venous thrombosis on venous Dopplers. CT of the lower extremity shows no abscess formation. since procalcitonin is negative, discontinued current iv ceftaroline 3. Pulmonary hypertension: Moderate PA pressure of 50 mmHg complicating care and causing right-sided heart failure. For completeness, will need to rule out chronic pulmonary embolus (PE), therefore, since creatinine is not optimal currently, will obtain a V/Q scan in the morning to rule out PE. Venous Doppler, as already mentioned, there is no DVT. 4. Morbid obesity: BMI 48.3 complicating care. At risk of worsening respiratory distress. 5. Type 2 diabetes, A1c 6.8 on consistent carbohydrate diet, insulin sliding scale, hypoglycemic protocol. 6. Obstructive sleep apnea (EDGARD) secondary to obesity, hyperventilation syndrome. Patient does not have any CPAP at home. Will check a nocturnal oxymetry and continue with pulse ox and oxygen while the patient is napping or night time. 7. Anxiety/depression: On chronic home medications. 8. Atrial flutter: Rate controlled currently and anticoagulated with Xarelto. Ventricular rate has been adequate at 73-90 and she is continued on her home dose of diltiazem 60 mg nightly. disposition-needs 2-3 more days of diuresis. dc on friday VS, I&O, 24H, [facility] Vital Signs/I&O Vital Signs Date Time Temp Pulse Resp B/P (MAP) Pulse Ox O2 Delivery O2 Flow Rate FiO2 10/12/18 14:00 97.4 86 18 142/76 (98) 99 10/12/18 04:00 Room Air I&O- Last 24 Hours up to 6 AM 10/12/18 06:00 Intake Total 1200 ml Output Total 4400 ml Balance -3200 ml Laboratory Data 24H LABS Laboratory Tests 2 10/11/18 20:49: Bedside Glucose (Misc Panel) 202H 10/11/18 23:49: Anion Gap 5L, Glomerular Filtration Rate 35.1L, Blood Urea Nitrogen 42H, Creatinine 1.53H, Sodium Level 138, Potassium Level 4.1, Chloride Level 100, Carbon Dioxide Level 33H, Calcium Level 10.0, Magnesium Level 2.1 10/12/18 05:35: Anion Gap 5L, Glomerular Filtration Rate 37.1L, Blood Urea Nitrogen 39H, Creat inine 1.46H, Sodium Level 138, Potassium Level 3.5, Chloride Level 98, Carbon Dioxide Level 35H, Calcium Level 9.9, Magnesium Level 2.0, Nucleated Red Blood Cells % (auto) 0.0 10/12/18 11:43: Bedside Glucose (Misc Panel) 258H 10/12/18 16:49: Bedside Glucose (Misc Panel) 154H CBC/BMP Laboratory Tests 10/11/18 23:49 Calcium Level 10.0 10/12/18 05:35 Calcium Level 9.9, Red Blood Count 4.08, Mean Corpuscular Volume 89.7, Mean Corpuscular Hemoglobin 28.4, Mean Corpuscular Hemoglobin Concent 31.7 L, Red Cell Distribution Width 15.8 H Microbiology Microbiology 10/04/18 Blood Culture - Final, Complete NO GROWTH AFTER 5 DAYS 10/04/18 Blood Culture - Final, Complete NO GROWTH AFTER 5 DAYS 10/09/18 Respiratory Virus Panel (PCR) ([facility]) - Final, Complete HANY CEE MD Oct 12, 2018 18:34
[2018-10-12 22:00] VITALS: BP 137/72
[2018-10-12] MEDS: buPROPion **XL** TABLET 150MG (WELLBUTRIN XL) PO SCH (22:32)
[2018-10-12] MEDS: CitaloPRAM (CeleXA) 20 MG TAB PO SCH (22:32)
[2018-10-12] MEDS: RIVAROXABAN 15 MG TAB (XARELTO) PO SCH (22:32)
[2018-10-13] MEDS: LEVALBUTEROL 1.25 MG/0.5 ML CONCENTRATE NEB INH SCH ×7 (04:00→23:23)
[2018-10-13 06:00] VITALS: BP 142/74
[2018-10-13 06:58] LABS: HEMATOCRIT 38.4 % (36.0-47.0); HEMOGLOBIN 12.3 g/dl (12.0-15.5); MEAN CORPUSCULAR HEMOGLOBIN 28.9 pg (27.0-33.0); MEAN CORPUSCULAR VOLUME 90.4 fl (80.0-96.0); PLATELET COUNT, AUTOMATED 169 10^3/uL (150-450); RED BLOOD COUNT 4.25 10^6/uL (4.00-5.40); WHITE BLOOD COUNT 9.9 10^3/uL (4.0-10.0)
[2018-10-13] MEDS: ADVAIR HFA 230/21MCG INHALER INH SCH ×2 (07:23→20:10)
[2018-10-13 07:25] LABS: CALCIUM LEVEL 9.9 MG/DL (8.8-10.2); CREATININE FOR GFR 1.5 MG/DL (0.55-1.30); GLOMERULAR FILTRATION RATE 35.9 (>39)
[2018-10-13] MEDS ORDERED: metOLazone 5 MG TAB PO ONE (09:00)
--- NOTE | 2018-10-13 09:39 | IPNPDOC ---
Date Seen The patient was seen on 10/13/18. Progress Note SUBJECTIVE: diuresing well,and stable stage 3 renal failure. no fever chills. says SWEENEY is better when she walked 2x around the floor yesterday no PND LE improving. OBJECTIVE PHYSICAL EXAMINATION VITALS: PLS SEE BELOW Generally, patient is awake, alert, oriented. Answers questions appropriately. No use of respiratory accessory muscles. no conversational dyspnea Lungs AEBE clear to auscultation. No wheezing rales, or rhonchi. Heart: S1, S2, sinus rhythm. No murmurs, rubs or gallops. Abdomen obese, soft , nontender, nondistended. Positive bowel sounds times four quadrants. No hepatosplenomegaly. Extremities: Erythema left lower extremity has resolved. Calf is much bigger than the right. Distal pulses, dorsalis pedis and posterior tibialis are noted at 2+. Pitting edema to the left knee on the left side. 2+ edema with right lower extremity having 1+ edema. Laboratory data, imaging studies and microbiology have been reviewed. ASSESSMENT/PLAN: This is a 77-year-old morbidly obese female with a body mass index (BMI) 47.7, end-stage chronic obstructive pulmonary disease (COPD) on home oxygen at night, atrial flutter status post mechanical cardioversion on chronic Xarelto, obstructive sleep apnea not on CPAP, non-insulin dependent diabetic, chronic diastolic heart failure with preserved ejection fraction, sick sinus syndrome with dual-chamber pacer, anxiety, depression, breast carcinoma with left partial mastectomy, hernia repair, glaucoma, appendectomy, hysterectomy. Presented to the emergency room with left lower extremity swelling, redness, and tenderness, status post doxycycline, Keflex, Levaquin as an outpatient. Found to have pitting edema with no signs of compartment syndrome evaluated by general surgery with venous Dopplers being negative and CT of the left extremity edema showing no abscess. Current issues are as follows: 1. Decompensated CHF diastolic dysfunction, preserved EF Right-sided congestive heart failure: Cor pulmonale with clear lungs but significant pulmonary hypertension on echocardiogram with pulmonary artery (PA) pressures of 50 mmHg. Patient is currently being treated for congestive heart failure, preserved ejection fraction of 65%, diastolic dysfunction. She is kept on strict Input and output, daily weights, 2 liter fluid restriction and Lasix intravenously with holding parameters for systolic pressure less than 100 and with serial creatinine monitoring. Patient has been net negative for the past 3 days. on zaroxylyn and lasix. discussed case w patient's sister Leslie who agrees that pt will need asmuch supportat home. home care at discharge 2. Questionable left lower extremity cellulitis. Patient has been afebrile. No white count. Erythema and swelling has improved with diuresis. There is no deep venous thrombosis on venous Dopplers. CT of the lower extremity shows no abscess formation. since procalcitonin is negative, discontinued current iv ceftaroline 3. Pulmonary hypertension: Moderate PA pressure of 50 mmHg complicating care and causing right-sided heart failure. For completeness, will need to rule out chronic pulmonary embolus (PE), therefore, since creatinine is not optimal currently, will obtain a V/Q scan in the morning to rule out PE. Venous Doppler, as already mentioned, there is no DVT. 4. Morbid obesity: BMI 48.3 complicating care. At risk of worsening respiratory distress. 5. Type 2 diabetes, A1c 6.8 on consistent carbohydrate diet, insulin sliding scale, hypoglycemic protocol. 6. Obstructive sleep apnea (EDGARD) secondary to obesity, hyperventilation syndrome. Patient does not have any CPAP at home. Will check a nocturnal oxymetry and continue with pulse ox and oxygen while the patient is napping or night time. 7. Anxiety/depression: On chronic home medications. 8. Atrial flutter: Rate controlled currently and anticoagulated with Xarelto. Ventricular rate has been adequate at 73-90 and she is continued on her home dose of diltiazem 60 mg nightly. disposition-dc on friday VS, I&O, 24H, [facility] Vital Signs/I&O Vital Signs Date Time Temp Pulse Resp B/P (MAP) Pulse Ox O2 Delivery O2 Flow Rate FiO2 10/13/18 06:00 97.6 78 18 142/74 (96) 91 10/13/18 02:00 Room Air I&O- Last 24 Hours up to 6 AM 10/13/18 06:00 Intake Total 1320 ml Output Total 1650 ml Balance -330 ml Laboratory Data 24H LABS Laboratory Tests 2 10/12/18 11:43: Bedside Glucose (Misc Panel) 258H 10/12/18 16:49: Bedside Glucose (Misc Panel) 154H 10/12/18 21:39: Bedside Glucose (Misc Panel) 169H 10/13/18 06:39: Nucleated Red Blood Cells % (auto) 0.0, Anion Gap 4L, Glomerular Filtration Rate 35.9L, Blood Urea Nitrogen 43H, Creatinine 1.50H, Sodium Level 138, Potassium Level 4.0, Chloride Level 99, Carbon Dioxide Level 35H, Calcium Level 9.9 CBC/BMP Laboratory Tests 10/13/18 06:39 Red Blood Count 4.25, Mean Corpuscular Volume 90.4, Mean Corpuscular Hemoglobin 28.9, Mean Corpuscular Hemoglobin Concent 32.0, Red Cell Distribution Width 15.9 H, Calcium Level 9.9 Microbiology Microbiology 10/04/18 Blood Culture - Final, Complete NO GROWTH AFTER 5 DAYS 10/04/18 Blood Culture - Final, Complete NO GROWTH AFTER 5 DAYS 10/09/18 Respiratory Virus Panel (PCR) ([facility]) - Final, Complete HANY CEE MD Oct 13, 2018 09:39
[2018-10-13] MEDS: metOLazone 5 MG TAB PO SCH (09:40)
[2018-10-13] MEDS: POTASSIUM CHLORIDE 10 MEQ SR TABLET PO SCH ×2 (09:40→22:19)
[2018-10-13] MEDS: HumaLOG INSULIN (NovoLOG) PER UNIT SC SCH ×4 (09:41→21:00)
[2018-10-13] MEDS: BRIMONIDINE 0.1% OPHTH SOLN 5 ML OU SCH ×2 (09:41→22:11)
[2018-10-13] MEDS: FLUTICASONE PROP 0.05% NASAL SPRAY 16 GM (FLONASE) SCH (09:41)
[2018-10-13] MEDS: PILOCARPINE 4% OPHTH SOLN 15 ML OU SCH ×2 (09:41→22:11)
[2018-10-13] MEDS: NYSTATIN 100,000 UNITS/GM TOPICAL PWD 15 GM TOP SCH ×3 (09:42→22:12)
[2018-10-13] MEDS ORDERED: FUROSEMIDE 100 MG/10 ML VIAL (J1940) IV ONE (10:00)
--- NOTE | 2018-10-13 11:59 | REP ---
PA and lateral chest: Comparison is 10/09/2018. Cardiomegaly and dual chamber pacemaker are unchanged. There are no infiltrates or pleural effusions. No masses or nodules. Lung bernal are clear and unchanged. The adalid and mediastinum are unremarkable. There is an old right humeral neck fracture, unchanged from prior study of 01/15/2016. Impression: There are no acute cardiopulmonary findings. Chronic cardiomegaly and pacemaker are unchanged. Old right humeral neck fracture. Electronically Signed by Ez Boo MD 10/12/2018 10:16 A
--- NOTE | 2018-10-13 12:00 | REP ---
Radionuclide pulmonary ventilation / perfusion scan: Study is correlated with the PA and lateral plain film study of the chest performed earlier today. The study is performed with 1 mCi technetium 99m labeled DTPA aerosol followed by 5.4 mCi of technetium 99m labeled MAA intravenously. There are matched ventilation / perfusion defects. No mismatched perfusion defects are identified. There is precipitation radiotracer within the central airways. This is compatible with COPD. Impression: Low probability of pulmonary embolus. Electronically Signed by Ez Boo MD 10/12/2018 12:51 P
[2018-10-13 14:00] VITALS: BP 127/58
[2018-10-13] MEDS ORDERED: FUROSEMIDE 40 MG/4 ML VIAL (J1940) IV ONE (15:00)
[2018-10-13 18:24] LABS: CALCIUM LEVEL 10.3 MG/DL (8.8-10.2); CREATININE FOR GFR 1.7 MG/DL (0.55-1.30); GLOMERULAR FILTRATION RATE 31.1 (>39); POTASSIUM SERUM 3.5 MEQ/L (3.5-5.1)
[2018-10-13 22:00] VITALS: BP 114/62
[2018-10-13 22:17] VITALS: BP 138/50
[2018-10-13] MEDS: RIVAROXABAN 15 MG TAB (XARELTO) PO SCH (22:18)
[2018-10-13] MEDS: CitaloPRAM (CeleXA) 20 MG TAB PO SCH (22:18)
[2018-10-13] MEDS: buPROPion **XL** TABLET 150MG (WELLBUTRIN XL) PO SCH (22:18)
[2018-10-14 00:22] LABS: CREATININE FOR GFR 1.8 MG/DL (0.55-1.30); GLOMERULAR FILTRATION RATE 29.1 (>39); POTASSIUM SERUM 3.2 MEQ/L (3.5-5.1)
[2018-10-14] MEDS: LEVALBUTEROL 1.25 MG/0.5 ML CONCENTRATE NEB INH SCH ×2 (04:00→08:00)
[2018-10-14 06:00] VITALS: BP 132/86
[2018-10-14 06:19] LABS: CALCIUM LEVEL 9.7 MG/DL (8.8-10.2); CREATININE FOR GFR 1.52 MG/DL (0.55-1.30); GLOMERULAR FILTRATION RATE 35.4 (>39); MAGNESIUM LEVEL 2.1 MG/DL (1.8-2.4)
[2018-10-14] MEDS: POTASSIUM CHLORIDE 10 MEQ SR TABLET PO SCH (07:00)
[2018-10-14] MEDS ORDERED: POTASSIUM CHLORIDE 10 MEQ SR TABLET PO ONE (08:00)
[2018-10-14] MEDS ORDERED: metOLazone 5 MG TAB PO ONE (08:00)
[2018-10-14] MEDS ORDERED: FUROSEMIDE 40 MG/4 ML VIAL (J1940) IV ONE (08:00)
[2018-10-14] MEDS: ADVAIR HFA 230/21MCG INHALER INH SCH (08:01)
[2018-10-14] MEDS: HumaLOG INSULIN (NovoLOG) PER UNIT SC SCH (08:17)
[2018-10-14] MEDS: FLUTICASONE PROP 0.05% NASAL SPRAY 16 GM (FLONASE) SCH (08:19)
[2018-10-14] MEDS: PILOCARPINE 4% OPHTH SOLN 15 ML OU SCH (08:21)
[2018-10-14] MEDS: BRIMONIDINE 0.1% OPHTH SOLN 5 ML OU SCH (08:21)
[2018-10-14] MEDS: NYSTATIN 100,000 UNITS/GM TOPICAL PWD 15 GM TOP SCH (08:21)
--- NOTE | 2018-10-14 13:10 | DS.PDOC ---
Discharge Summary General Date of Admission Oct 05, 2018 at 16:58 Date of Discharge Oct 14, 2018 Discharge Summary SURGERY-DR. MOYER DISCHARGE DIAGNOSES: Acute Decompensated CHF diastolic dysfunction, preserved EF 65% Right-sided congestive heart failure Cor pulmonale moderate Pulmonary hypertension Morbid obesity: BMI 48.3 Type 2 diabetes, A1c 6.8 Obstructive sleep apnea (EDGARD) secondary to obesity, hypoventilation syndrome. Anxiety/depression Atrial flutter DISCHARGE MEDICATIONS: PLS SEE BELOW DISCHARGE INSTRUCTIONS: 2LITER FLUID RESTRICTION WEIGH DAILY CALL YOUR DOCTOR IF >2LB WEIGHT GAIN HOSPITAL COURSE: This is a 77-year-old morbidly obese female with a body mass index (BMI) 47.7, end-stage chronic obstructive pulmonary disease (COPD) on home oxygen at night, atrial flutter status post mechanical cardioversion on chronic Xarelto, obstructive sleep apnea not on CPAP, non-insulin dependent diabetic, chronic diastolic heart failure with preserved ejection fraction, sick sinus syndrome with dual-chamber pacer, anxiety, depression, breast carcinoma with left partial mastectomy, hernia repair, glaucoma, appendectomy, hysterectomy. Presented to the emergency room with left lower extremity swelling, redness, and tenderness, status post doxycycline, Keflex, Levaquin as an outpatient. Found to have pitting edema with no signs of compartment syndrome evaluated by general surgery with venous Dopplers being negative and CT of the left extremity edema showing no abscess. Decompensated CHF diastolic dysfunction, preserved EF Right-sided congestive heart failure: Cor pulmonale with clear lungs but significant pulmonary hypertension on echocardiogram with pulmonary artery (PA) pressures of 50 mmHg. Patient is currently being treated for congestive heart failure, preserved ejection fraction of 65%, diastolic dysfunction. She is kept on strict Input and output, daily weights, 2 liter fluid restriction and Lasix intravenously with holding parameters for systolic pressure less than 100 and with serial creatinine monitoring. Patient has been net negative for the past 3 days. on zaroxylyn and lasix. discussed case w patient's sister Leslie who agrees that pt will need asmuch supportat home. home care at discharge Questionable left lower extremity cellulitis. Patient has been afebrile. No white count. Erythema and swelling has improved with diuresis. There is no deep venous thrombosis on venous Dopplers. CT of the lower extremity shows no abscess formation. since procalcitonin is negative, discontinued current iv ceftaroline Pulmonary hypertension: Moderate PA pressure of 50 mmHg complicating care and causing right-sided heart failure. For completeness, will need to rule out chronic pulmonary embolus (PE), therefore, since creatinine is not optimal currently, will obtain a V/Q scan in the morning to rule out PE. Venous Doppler, as already mentioned, there is no DVT. Morbid obesity: BMI 48.3 complicating care. At risk of worsening respiratory distress. Type 2 diabetes, A1c 6.8 on consistent carbohydrate diet, insulin sliding scale, hypoglycemic protocol. Obstructive sleep apnea (EDGARD) secondary to obesity, hyperventilation syndrome. Patient does not have any CPAP at home. Will check a nocturnal oxymetry and continue with pulse ox and oxygen while the patient is napping or night time. Anxiety/depression: On chronic home medications. Atrial flutter: Rate controlled currently and anticoagulated with Xarelto. Ventricular rate has been adequate at 73-90 and she is continued on her home dose of diltiazem 60 mg nightly. DISCHARGE PHYSICAL EXAMINATION: PHYSICAL EXAMINATION VITALS: PLS SEE BELOW Generally, patient is awake, alert, oriented. Answers questions appropriately. No use of respiratory accessory muscles. no conversational dyspnea Lungs AEBE clear to auscultation. No wheezing rales, or rhonchi. Heart: S1, S2, sinus rhythm. No murmurs, rubs or gallops. Abdomen obese, soft , nontender, nondistended. Positive bowel sounds times four quadrants. No hepatosplenomegaly. Extremities: Erythema left lower extremity has resolved. Calf is much bigger than the right. Distal pulses, dorsalis pedis and posterior tibialis are noted at 2+. Pitting edema to the left knee on the left side. 2+ edema with right lower extremity having 1+ edema. Laboratory data, imaging studies and microbiology have been reviewed. TIME SPENT ON DISCHARGE: 32 MINUTES Vital Signs/I&Os Vital Signs Date Time Temp Pulse Resp B/P (MAP) Pulse Ox O2 Delivery O2 Flow Rate FiO2 10/14/18 06:00 98.3 67 20 132/86 (101) 96 10/13/18 09:41 Room Air I&O- Last 24 Hours up to 6 AM 10/14/18 06:00 Intake Total 1962 ml Output Total 1536 ml Balance 426 ml Laboratory Data Labs 24H Laboratory Tests 2 10/13/18 17:03: Bedside Glucose (Misc Panel) 192H 10/13/18 17:46: Anion Gap 5L, Glomerular Filtration Rate 31.1L, Blood Urea Nitrogen 45H, Creatinine 1.70H, Sodium Level 138, Potassium Level 3.5, Chloride Level 96L, Carbon Dioxide Level 37H, Calcium Level 10.3H, Magnesium Level 2.0 10/13/18 20:40: Bedside Glucose (Misc Panel) 198H 10/13/18 23:54: Anion Gap 7L, Glomerular Filtration Rate 29.1L, Blood Urea Nitrogen 50H, Creatinine 1.80H, Sodium Level 137, Potassium Level 3.2L, Chloride Level 97L, Carbon Dioxide Level 33H, Calcium Level 10.0, Magnesium Level 2.0 10/14/18 05:27: Anion Gap 4L, Glomerular Filtration Rate 35.4L, Blood Urea Nitrogen 47H, Creatinine 1.52H, Sodium Level 138, Potassium Level 3.0L, Chloride Level 99, Carbon Dioxide Level 35H, Calcium Level 9.7, Magnesium Level 2.1 CBC/BMP Laboratory Tests 10/13/18 17:46 Calcium Level 10.3 H 10/13/18 23:54 Calcium Level 10.0 10/14/18 05:27 Calcium Level 9.7 FSBS Laboratory Tests Test 10/13/18 17:03 10/13/18 20:40 Range/Units Bedside Glucose (Misc Panel) 192 198 83-110 MG/DL Microbiology Microbiology 10/04/18 Blood Culture - Final, Complete NO GROWTH AFTER 5 DAYS 10/04/18 Blood Culture - Final, Complete NO GROWTH AFTER 5 DAYS 10/09/18 Respiratory Virus Panel (PCR) (EMILEE) - Final, Complete Discharge Medications Scheduled Bimatoprost (Lumigan) 50 Drop/2.5 Ml Farrah, 1 DROP OU QHS, (Reported) Brimonidine Tartrate (Alphagan P) 100 Drop/5 Ml Soln, 1 DROP OU BID, (Reported) Bupropion Hcl (Bupropion Xl) 150 Mg Tab, 150 MG PO QHS, (Reported) Citalopram Hydrobromide (Celexa) 40 Mg Tab, 40 MG PO QHS, (Reported) Diltiazem HCl (Diltiazem HCl) 60 Mg Tab, 60 MG PO QHS, (Reported) Fluticasone Propion/Salmeterol (Advair Hfa 230-21 Mcg Inhaler) 1 Aer Aer, 2 PUFF INH BID, (Reported) Fluticasone Propionate (Flonase Allergy Relief) 9.9 Ml [place].susp, 1 SPR NA DAILY, (Reported) Furosemide (Furosemide) 20 Mg Tablet, 40 MG PO DAILY, (Reported) Pilocarpine HCl (Pilocarpine HCl 4% Opth Farrah) 4 % Farrah, 1 DROP OU BID, (Reported) Potassium Chloride (K-Tab ER) 20 Meq Tab, 20 MEQ PO QHS, (Reported) Rivaroxaban (Xarelto) 15 Mg Tab, 15 MG PO QHS, (Reported) Scheduled PRN Albuterol Sulfate (Proair Hfa) 108 Mcg/Act Aer, 2 PUFF INH Q4H PRN for SOB/WHEEZING, (Reported) Carbamide Peroxide (Debrox) 6.5 % Farrah, 5 DROP AU BID PRN for SYMPTOM RELIEF, (Reported) Guaifenesin (Mucinex) 600 Mg Tab.er.12h, 1,200 MG PO BID PRN for CONGESTION/COUGH, (Reported) Ipratropium/Albuterol Sulfate (Iprat-Albut 0.5-3(2.5) mg/3 ml) 1 Farrah Farrah, 1 FARRAH INH QID PRN for SHORTNESS OF BREATH, (Reported) Allergies Coded Allergies: Penicillins (Verified Allergy, Mild, RASH, 10/05/18) Sulfa (Sulfonamide Antibiotics) (Verified Allergy, Mild, RASH, 10/05/18) clindamycin (Verified Allergy, Mild, RASH, 10/05/18) codeine (Verified Allergy, Mild, STOMACH UPSET, RASH, 10/05/18) meperidine (Verified Allergy, Mild, STOMACH UPSET, RASH, 10/05/18) HANY CEE MD Oct 14, 2018 13:10
== END 2018-10-14 10:49 | disposition home or self-care (01) | DRG 299 ==
LOC: M ED 21:41 → M ED INP 21:42 → M MSPAV 10-05 14:29 → INTOOBSV 10-05 16:58 → OBSVTOIN 10-05 16:58
PROVIDERS: ADMIT Internal Medicine; ATTEND General Practice
DX: I87.2 Venous insufficiency (chronic) (peripheral) (principal); I50.33 Acute on chronic diastolic (congestive) heart failure; I48.92 Unspecified atrial flutter; Z68.42 Body mass index [BMI] 45.0-49.9, adult; J44.9 Chronic obstructive pulmonary disease, unspecified; G47.33 Obstructive sleep apnea (adult) (pediatric); E11.9 Type 2 diabetes mellitus without complications; I27.29 Other secondary pulmonary hypertension; E66.9 Obesity, unspecified; I11.0 Hypertensive heart disease with heart failure; D50.9 Iron deficiency anemia, unspecified; F41.9 Anxiety disorder, unspecified; F32.9 Major depressive disorder, single episode, unspecified; H40.9 Unspecified glaucoma; Z95.0 Presence of cardiac pacemaker; Z85.3 Personal history of malignant neoplasm of breast; Z90.49 Acquired absence of other specified parts of digestive tract; Z90.710 Acquired absence of both cervix and uterus; Z87.891 Personal history of nicotine dependence; Z79.01 Long term (current) use of anticoagulants; Z79.899 Other long term (current) drug therapy; Z88.0 Allergy status to penicillin; Z88.2 Allergy status to sulfonamides; Z88.1 Allergy status to other antibiotic agents; Z88.5 Allergy status to narcotic agent; Z88.8 Allergy status to other drugs, medicaments and biological substances

== ENCOUNTER 2018-10-18 20:31 | Emergency (ER) | payer MEDICARE, OTHER ==
[~2018-10-18] VITALS: Ht 157.5 cm; Wt 113.6 kg
[~2018-10-18 20:31] MED LIST changes: +MUCI600T31 PO
[2018-10-18 21:49] LABS: BASO # 0.1 10^3/uL (0.0-0.2); BASO % 0.5 % (0.0-1.0); EOS # 0.2 10^3/uL (0.0-0.5); EOS % 1.8 % (0.0-3.0); HEMOGLOBIN 11.9 g/dl (12.0-15.5); LYMPH # 1.5 10^3/uL (1.5-5.0); LYMPH % 13.3 % (24.0-44.0); MEAN CORPUSCULAR HEMOGLOBIN 28.7 pg (27.0-33.0); MEAN CORPUSCULAR HGB CONC 32.2 g/dl (32.0-36.5); MEAN CORPUSCULAR VOLUME 89.2 fl (80.0-96.0); MONO # 0.8 10^3/uL (0.0-0.8); MONO % 7.5 % (0.0-5.0); NEUTROPHILS # 8.5 10^3/uL (1.5-8.5); NEUTROPHILS % 76.4 % (36.0-66.0); PLATELET COUNT, AUTOMATED 164 10^3/uL (150-450); RED BLOOD COUNT 4.15 10^6/uL (4.00-5.40); WHITE BLOOD COUNT 11.1 10^3/uL (4.0-10.0)
[2018-10-18 22:09] LABS: CALCIUM LEVEL 9.5 MG/DL (8.8-10.2); CREATININE FOR GFR 1.75 MG/DL (0.55-1.30); GLOMERULAR FILTRATION RATE 30.1 (>39); POTASSIUM SERUM 3.4 MEQ/L (3.5-5.1)
[2018-10-18] MEDS: traMADol 50 MG TAB PO ONE (22:19)
[2018-10-18 23:13] VITALS: BP 92/51
== END 2018-10-18 23:22 | disposition home or self-care (01) ==
LOC: M ED 20:31
DX: R25.2 Cramp and spasm (principal); M79.605 Pain in left leg; I10 Essential (primary) hypertension; E11.9 Type 2 diabetes mellitus without complications

== ENCOUNTER → 2018-10-21 | Outpatient (CLI) | payer MEDICARE, OTHER ==
[2018-10-21 19:00] LABS: HEMATOCRIT 34.8 % (36.0-47.0); MEAN CORPUSCULAR HEMOGLOBIN 27.8 pg (27.0-33.0); MEAN CORPUSCULAR HGB CONC 31.6 g/dl (32.0-36.5); MEAN CORPUSCULAR VOLUME 87.9 fl (80.0-96.0); PLATELET COUNT, AUTOMATED 155 10^3/uL (150-450); RED BLOOD COUNT 3.96 10^6/uL (4.00-5.40)
[2018-10-21 19:04] LABS: CALCIUM LEVEL 9.4 MG/DL (8.8-10.2); CREATININE FOR GFR 1.26 MG/DL (0.55-1.30); POTASSIUM SERUM 3.1 MEQ/L (3.5-5.1)
== END ==
LOC: M SMT 14:19
PROVIDERS: ATTEND Internal Medicine Cardiovascular Disease
DX: R06.02 Shortness of breath (principal); I10 Essential (primary) hypertension; E11.9 Type 2 diabetes mellitus without complications; E87.6 Hypokalemia

== ENCOUNTER 2018-11-18 16:03 | Inpatient (IN) | payer MEDICARE, OTHER ==
[~2018-11-18] VITALS: Ht 157.5 cm; Wt 118.5 kg
[2018-11-18 16:49] LABS: BASO % 0.4 % (0.0-1.0); EOS # 0.2 10^3/uL (0.0-0.5); EOS % 2.8 % (0.0-3.0); HEMATOCRIT 33.9 % (36.0-47.0); HEMOGLOBIN 10.4 g/dl (12.0-15.5); MEAN CORPUSCULAR HGB CONC 30.7 g/dl (32.0-36.5); MEAN CORPUSCULAR VOLUME 91.4 fl (80.0-96.0); MONO # 0.5 10^3/uL (0.0-0.8); MONO % 6.3 % (0.0-5.0); PLATELET COUNT, AUTOMATED 151 10^3/uL (150-450); RED BLOOD COUNT 3.71 10^6/uL (4.00-5.40); WHITE BLOOD COUNT 7.8 10^3/uL (4.0-10.0)
[2018-11-18] MEDS ORDERED: FUROSEMIDE 100 MG/10 ML VIAL (J1940) IV ONE (17:00)
[2018-11-18 17:17] LABS: BLOOD UREA NITROGEN 16 MG/DL (7-18); CALCIUM LEVEL 9.1 MG/DL (8.8-10.2); CARBON DIOXIDE LEVEL 30 MEQ/L (21-32); CHLORIDE LEVEL 106 MEQ/L (98-107); CK-MB VALUE MASS 1.2 NG/ML (<3.6); CPK CREATINE PHOSPHOKINASE 29 U/L (26-192); GLOMERULAR FILTRATION RATE 57.4 (>39); GLUCOSE, FASTING 133 MG/DL (70-100); MB/CK RELATIVE INDEX 4.14 (< OR =4); NT-PRO BNP 467 PG/ML (<450); POTASSIUM SERUM 4.4 MEQ/L (3.5-5.1); SODIUM LEVEL 142 MEQ/L (136-145); TROPONIN I < 0.02 NG/ML (< 0.10)
--- NOTE | 2018-11-18 17:33 | REP ---
PORTABLE CHEST: HISTORY: Dyspnea. COMPARISON: 10/12/2018, the latest prior, a two view exam. The technique utilized in obtaining the radiograph has magnified the cardiac silhouette and accentuated the interstitial markings. There is cardiomegaly accentuated by technique. The dual chamber bipolar pacemaker device is unchanged. There is scattered interstitial fibrosis with basilar predominance, status quo. No acute patchy parenchymal opacities or pleural effusions seen to have developed. There is no change in the osseous structures. IMPRESSION: Stable appearing chronic changes as described above, however, correlate clinically to rule out the possibility of acute disease superimposed upon chronic change. Electronically Signed by Guilherme Streeter DO 11/19/2018 02:33 P
[2018-11-18] MEDS ORDERED: guaiFENesin ER 600 MG TAB PO PRN (18:15)
[2018-11-18] MEDS ORDERED: MAALOX 30 ML SUSP *UDC PO PRN (18:15)
[2018-11-18] MEDS ORDERED: HEPARIN SOD (PORCINE) 5000 UNITS/ML VIAL SC SCH (18:15)
[2018-11-18] MEDS ORDERED: MOM 30ML SUSPENSION UDC PO PRN (18:15)
[2018-11-18] MEDS ORDERED: IPRATROPIUM 0.5MG/ALBUTEROL 2.5MG INH SOL UD 3ML (DUONEB)(J7620) NEB SCH (18:15)
[2018-11-18] MEDS ORDERED: DEXTROSE 50% 50 ML SYRINGE IV PRN (18:15)
[2018-11-18] MEDS ORDERED: FLUTICASONE PROP 0.05% NASAL SPRAY 16 GM (FLONASE) PRN (18:15)
[2018-11-18] MEDS ORDERED: CARBAMIDE PEROXIDE 6.5% OTIC SOLN 15ML AU PRN (18:15)
[2018-11-18] MEDS ORDERED: GLUCAGON FOR INJ 1 MG VIAL (J1610) SC PRN (18:15)
[2018-11-18] MEDS ORDERED: IPRATROPIUM 0.5MG/ALBUTEROL 2.5MG INH SOL UD 3ML (DUONEB)(J7620) NEB PRN (18:15)
[2018-11-18] MEDS ORDERED: GLUCOSE 4 GM CHEW TABLET PO PRN (18:15)
[2018-11-18] MEDS ORDERED: ACETAMINOPHEN TAB 650MG DOSE (2X325MG) PO PRN (18:15)
--- NOTE | 2018-11-18 18:24 | HPEPDOC ---
General Date of Admission 11/18/18 Date of Service: Nov 18, 2018 Primary Care Physician: Nuzhat Langley MD Attending Physician: JANES DESHPANDE MD Chief Complaint The patient is a 77-year-old female admitted with a reason for visit of Short Of Breath. Source: Patient Exam Limitations: No limitations Timing/Duration: Day(s) Severity: Moderate (last few days) Associated Symptoms: Other (, leg swelling) History of Present Illness 77. She is also obese white female with past medical history of multiple medical problems including COPD, a flutter up strict is sleep apnea, diabetes mellitus, chronic hypertension, chronic diastolic congestive heart failure, sick sinus syndrome with dual-chamber pacemaker, history of anxiety, depression, glaucoma, breast cancer with left partial mastectomy of the breast, appendectomy, hysterectomy, has not been feeling well, increasing shortness of breath since last few days. She decided to see her film and video editor, Dr. ding today. In doctor's office. Office and was decided to transfer her to emergency room for IV diuresis for her congestive heart failure. As per patient, she feels like when she gets filled up with fluid. No chest pain, no dizziness, no nausea, vomiting, diarrhea, etc. Home Medications Scheduled Bimatoprost (Lumigan) 50 Drop/2.5 Ml Farrah, 1 DROP OU QHS, (Reported) Brimonidine Tartrate (Alphagan P) 100 Drop/5 Ml Soln, 1 DROP OU BID, (Reported) Bupropion Hcl (Bupropion Xl) 150 Mg Tab, 150 MG PO QHS, (Reported) Citalopram Hydrobromide (Celexa) 40 Mg Tab, 40 MG PO QHS, (Reported) Diltiazem HCl (Diltiazem HCl) 60 Mg Tab, 60 MG PO QHS, (Reported) Fluticasone Propion/Salmeterol (Advair Hfa 230-21 Mcg Inhaler) 1 Aer Aer, 2 PUFF INH BID, (Reported) Furosemide (Furosemide) 20 Mg Tablet, 20 MG PO DAILY, (Reported) Pilocarpine HCl (Pilocarpine HCl 4% Opth Farrah) 4 % Farrah, 1 DROP OU BID, (Reported) Potassium Chloride (K-Tab ER) 20 Meq Tab, 20 MEQ PO QHS, (Reported) Rivaroxaban (Xarelto) 15 Mg Tab, 15 MG PO QHS, (Reported) Scheduled PRN Albuterol Sulfate (Proair Hfa) 108 Mcg/Act Aer, 2 PUFF INH Q4H PRN for SOB/WHE EZING, (Reported) Carbamide Peroxide (Debrox) 6.5 % Farrah, 5 DROP AU BID PRN for SYMPTOM RELIEF, (Reported) Fluticasone Propionate (Flonase Allergy Relief) 9.9 Ml [place].susp, 2 SPRAY NA DAILY PRN for ALLERGIES, (Reported) Guaifenesin (Mucinex) 600 Mg Tab.er.12h, 1,200 MG PO BID PRN for CONGESTION/COUGH, (Reported) Ipratropium/Albuterol Sulfate (Iprat-Albut 0.5-3(2.5) mg/3 ml) 1 Farrah Farrah, 1 FARRAH INH QID PRN for SHORTNESS OF BREATH, (Reported) Allergies Coded Allergies: Penicillins (Verified Allergy, Mild, RASH, 10/05/18) Sulfa (Sulfonamide Antibiotics) (Verified Allergy, Mild, RASH, 10/05/18) clindamycin (Verified Allergy, Mild, RASH, 10/05/18) codeine (Verified Allergy, Mild, STOMACH UPSET, RASH, 10/05/18) meperidine (Verified Allergy, Mild, STOMACH UPSET, RASH, 10/05/18) Past Medical History Medical History COPD, a flutter status post mechanical cardioversion on Xarelto, obstructive sleep apnea, diabetes mellitus [id number], chronic hypertension, chronic diastolic congestive heart failure, sick sinus syndrome with dual- chamber pacemaker, history of anxiety and depression, history of glaucoma, history of breast cancer with a left partial mastectomy Surgical History Hernia repair, appendectomy, hysterectomy, mastectomy Family History Family history of colon cancer and heart attack Social History * Smoker: former Smoker Drugs: denies A-FIB/CHADSVASC A-FIB History Current/History of A-Fib/PAF?: Yes Current PO Anticoag Therapy: Yes Review of Systems Constitutional: Denies: Chills, Fever, Malaise, Night Sweats, Weakness, Fatigue, Weight Loss, Lethargy, Other Eyes: Denies: Pain, Vision change, Conjunctivae inflammation, Eyelid inflammation, Redness, Other ENT: Denies: Head Aches, Ear Pain, Dysphagia, Sinus Congestion, Post Nasal Drip, Sore Throat, Epistaxis, Other Symptoms Skin: Denies: Rash, Lesions, Jaundice, Bruising, Itching, Dry, Breakdown, Nail Changes, Other Pulmonary: Reports: Dyspnea, Cough Cardiovascular: Reports: Edema Gastrointestinal: Denies: Nausea, Vomiting, Abdominal Pain, Diarrhea, Constipation, Melena, Hematochezia, Other Symptoms Genitourinary: Denies: Dysuria, Frequency, Incontinence, Hematuria, Retention, Other Symptoms Hematologic: Denies: Bruising, Bleeding Excessively, Petecchia, Purpura, Enlarged Lymph Nodes, Other Hematologic Endocrine: Denies: Polydipsia, Polyphagia, Polyuria, Heat Intolerance, Cold Intolerance, Other Endocrine Sx Musculoskeletal: Denies: Neck Pain, Back Pain, Shoulder Pain, Arm Pain, Hand Pain, Leg Pain, Foot Pain, Joint Pain, Muscle Pain, Spasms, Other Symptoms Neurological: Denies: Weakness, Numbness, Incoordination, Change in speech, Confusion, Seizures, Other Symptoms Psych: Denies: Mood Normal, Anxiety, Depression, Memory Issues, Thoughts of Self Harm, Anger, Thoughts of Harming Other, Other Psych Physical Examination General Exam: Positive: Alert, Cooperative Eye Exam: Positive: PERRLA, Conjunctiva & lids normal ENT Exam: Positive: Atraumatic, Mucous membr. moist/pink Neck Exam: Positive: Supple Chest Exam: Positive: Other (, eyelid 2 rhonchi audible, but diminished breath sounds bilaterally) Heart Exam: Positive: Rate Normal, Normal S1, Normal S2 Telemetry: Positive: AV Block Abdomen Exam: Positive: Normal bowel sounds, Soft Extremity Exam: Positive: Edema (, 2+ bipedal edema), Normal pulses Skin Exam: Negative: Nl turgor and temperature, Rash, Breakdown, Lesion, Pruritus, Other skin issue Neuro Exam: Negative: Normal Gait, Normal Speech, Strength at 5/5 X4 ext, Normal Tone, Sensation Intact, Cranial Nerves 3-12 NL, Reflexes 2+, Other Psych Exam: Negative: Mental status NL, Mood NL, Anxiety, Memory Intact, Oriented x 3, Other Vital Signs Vital Signs Date Time Temp Pulse Resp B/P (MAP) Pulse Ox O2 Delivery O2 Flow Rate FiO2 11/18/18 17:34 11/18/18 17:30 79 18 92 Room Air 11/18/18 16:03 97.7 Laboratory Data Labs 24H Laboratory Tests 2 11/18/18 16:37: Immature Granulocyte % (Auto) 0.5, White Blood Count 7.8, Red Blood Count 3.71L, Hemoglobin 10.4L, Hematocrit 33.9L, Mean Corpuscular Volume 91.4, Mean Corpuscular Hemoglobin 28.0, Mean Corpuscular Hemoglobin Concent 30.7L, Red Cell Distribution Width 15.7H, Platelet Count 151, Neutrophils (%) (Auto) 77.0H, Lymphocytes (%) (Auto) 13.0L, Monocytes (%) (Auto) 6.3H, Eosinophils (%) (Auto) 2.8, Basophils (%) (Auto) 0.4, Neutrophils # (Auto) 6.0, Lymphocytes # (Auto) 1.0L, Monocytes # (Auto) 0.5, Eosinophils # (Auto) 0.2, Basophils # (Auto) 0.0, Nucleated Red Blood Cells % (auto) 0.0, Anion Gap 6L, Glomerular Filtration Rate 57.4, Blood Urea Nitrogen 16, Creatinine 1.00, Sodium Level 142, Potassium Level 4.4, Chloride Level 106, Carbon Dioxide Level 30, Calcium Level 9.1, Total Creatine Kinase 29, Creatine Kinase MB 1.2, Creatine Kinase MB Relative Index 4.14H, Troponin I < 0.02, XJ-Xss-H-Type Natriuretic Peptide 467H CBC/BMP Laboratory Tests 11/18/18 16:37 Red Blood Count 3.71 L, Mean Corpuscular Volume 91.4, Mean Corpuscular Hemoglobin 28.0, Mean Corpuscular Hemoglobin Concent 30.7 L, Red Cell Distribution Width 15.7 H, Neutrophils (%) (Auto) 77.0 H, Lymphocytes (%) (Auto) 13.0 L, Monocytes (%) (Auto) 6.3 H, Eosinophils (%) (Auto) 2.8, Basophils (%) (Auto) 0.4, Neutrophils # (Auto) 6.0, Lymphocytes # (Auto) 1.0 L, Monocytes # (Auto) 0.5, Eosinophils # (Auto) 0.2, Basophils # (Auto) 0.0, Calcium Level 9.1, Total Creatine Kinase 29 Problems (1) Acute on chronic diastolic CHF (congestive heart failure) Status: Acute Problem Text: 77 years old white female with past medical history of diastolic chronic diastolic heart failure. She recently had a echocardiogram done in 10/10/2018, which was consistent with normal left ventricular size with mild LVH, preserved LV systolic function, grade 2 diastolic function, EF of 65-70%. Also normal central venous pressure but at least moderately pulmonary hype rtension. Patient was seen by her film and video editor, Dr. ding in his office today and was diagnosed with exacerbation of CHF again and hence sent to the emergency room for admission for diuresis. Admitted to progressive unit Telemetry monitoring Intake and output IV diuresis with Lasix 40 mg IV every 8 hours Cardiology consultation with Dr. ding Continue all home medication including diltiazem Patient recently has echocardiogram done, so no need for repeat echo at this point Further recommendation as per cardiology CBC, CMP and BNP in a.m. Daily weights Carbohydrate consistent diet Activity as tolerated DVT prophylaxis, patient is a already on Xarelto (2) COPD exacerbation Status: Acute Problem Text: Patient most likely also has exacerbation of COPD on clinical examination Manuel start DuoNeb every 6 hours and every 2 hours when necessary Solu-Medrol 60 mg IV every 8 hours O2 support , We'll closely monitor patient (3) Diabetes mellitus, new onset Status: Chronic Problem Text: Fingerstick blood sugar every before meals and at bedtime with coverage Continue home meds (4) Obesity Status: Chronic Problem Text: Patient will be counseled regarding diet and exercise before discharge Dietary consultation (5) EDGARD (obstructive sleep apnea) Status: Chronic Problem Text: Outpatient follow-up with PCP (6) Anxiety and depression Status: Chronic Problem Text: Continue home meds (7) HTN (hypertension) Status: Chronic Problem Text: Under control Continue home meds (8) GERD (gastroesophageal reflux disease) Status: Chronic Problem Text: Continue home meds Plan / VTE VTE Prophylaxis Ordered?: Yes JANES DESHPANDE MD Nov 18, 2018 18:24
[2018-11-18] MEDS: methylPREDNISolone INJ 125 MG/2 ML VIAL (J2930) IV SCH (20:24)
[2018-11-18 20:30] VITALS: BP 153/64
--- NOTE | 2018-11-18 20:49 | ECGEPIP ---
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
[2018-11-18] MEDS: HumaLOG INSULIN (NovoLOG) PER UNIT SC SCH (21:00)
[2018-11-18] MEDS: CitaloPRAM (CeleXA) 20 MG TAB PO SCH (21:48)
[2018-11-18] MEDS: POTASSIUM CHLORIDE 10 MEQ SR TABLET PO SCH (21:48)
[2018-11-18] MEDS: DOCUSATE SODIUM 100 MG CAP PO SCH (21:49)
[2018-11-18] MEDS: buPROPion **XL** TABLET 150MG (WELLBUTRIN XL) PO SCH (21:49)
[2018-11-18] MEDS: RIVAROXABAN 15 MG TAB (XARELTO) PO SCH (21:51)
[2018-11-18] MEDS: ADVAIR HFA 230/21MCG INHALER INH SCH (21:52)
[2018-11-18] MEDS: BRIMONIDINE 0.1% OPHTH SOLN 5 ML OU SCH (22:23)
[2018-11-18] MEDS: PILOCARPINE 4% OPHTH SOLN 15 ML OU SCH (22:23)
[2018-11-18] MEDS: FUROSEMIDE 40 MG/4 ML VIAL (J1940) IV SCH (23:58)
[2018-11-19] VITALS (7 sets, daily range): BP systolic 123–137; BP diastolic 58–62
[2018-11-19 00:24] LABS: NT-PRO BNP 401 PG/ML (<450); TROPONIN I < 0.02 NG/ML (< 0.10)
[2018-11-19] MEDS: IPRATROPIUM 0.5MG/ALBUTEROL 2.5MG INH SOL UD 3ML (DUONEB)(J7620) NEB SCH ×4 (02:00→20:00)
[2018-11-19] MEDS: methylPREDNISolone INJ 125 MG/2 ML VIAL (J2930) IV SCH ×3 (04:31→20:13)
[2018-11-19 06:21] LABS: ALBUMIN 3.3 GM/DL (3.2-5.2); ALT/SGPT 10 U/L (12-78); BILIRUBIN,TOTAL 0.5 MG/DL (0.2-1.0); BLOOD UREA NITROGEN 21 MG/DL (7-18); CALCIUM LEVEL 9.2 MG/DL (8.8-10.2); CARBON DIOXIDE LEVEL 30 MEQ/L (21-32); CHLORIDE LEVEL 103 MEQ/L (98-107); CREATININE FOR GFR 1.37 MG/DL (0.55-1.30); GLOMERULAR FILTRATION RATE 39.9 (>39); GLUCOSE, FASTING 256 MG/DL (70-100); MAGNESIUM LEVEL 1.6 MG/DL (1.8-2.4); NT-PRO BNP 376 PG/ML (<450); SODIUM LEVEL 140 MEQ/L (136-145); TOTAL PROTEIN 6.3 GM/DL (6.4-8.2); TROPONIN I < 0.02 NG/ML (< 0.10)
[2018-11-19] MEDS: HumaLOG INSULIN (NovoLOG) PER UNIT SC SCH ×4 (07:30→20:23)
[2018-11-19] MEDS: ADVAIR HFA 230/21MCG INHALER INH SCH ×2 (08:23→20:16)
[2018-11-19] MEDS: FUROSEMIDE 40 MG/4 ML VIAL (J1940) IV SCH ×3 (08:57→23:25)
[2018-11-19] MEDS: DOCUSATE SODIUM 100 MG CAP PO SCH ×2 (08:58→20:15)
[2018-11-19] MEDS: BRIMONIDINE 0.1% OPHTH SOLN 5 ML OU SCH ×2 (08:58→20:24)
[2018-11-19] MEDS: PILOCARPINE 4% OPHTH SOLN 15 ML OU SCH ×2 (08:58→20:24)
[2018-11-19] MEDS ORDERED: FLUBLOK(EGG FREE)(QUAD)INFLUENZA VACC 0.5ML SYRINGE (90682)18YRS&OLDER IM ONE (09:00)
--- NOTE | 2018-11-19 11:00 | IPNPDOC ---
Subjective Date Seen The patient was seen on 11/19/18. Subjective Chief Complaint/HPI Patient is still complaining of shortness of breath, feels very slight change from yesterday, but on observation. She does not look like in acute respiratory distress General: Denies: ROS Unobtainable, Chills, Night Sweats, Fatigue, Malaise, Normal Appetite, Other Symptoms Constitutional: Denies: Chills, Fever, Malaise, Night Sweats, Weakness, Fatigue, Weight Loss, Lethargy, Other Pulmonary: Reports: Dyspnea Cardiovascular: Denies: Chest Pain, Palpitations, Orthopnea, Paroxysmal Noc. Dyspnea, Edema, Lt Headedness, Other Symptoms Gastrointestinal: Denies: Nausea, Vomiting, Abdominal Pain, Diarrhea, Constipation Endocrine: Denies: Polydipsia, Polyphagia, Polyuria, Heat Intolerance, Cold Intolerance, Other Endocrine Sx Musculoskeletal: Denies: Neck Pain, Back Pain, Shoulder Pain, Arm Pain, Hand Pain, Leg Pain, Foot Pain, Joint Pain, Muscle Pain, Spasms, Other Symptoms Neurological: Denies: Weakness, Numbness, Incoordination, Change in speech, Confusion, Seizures, Other Symptoms Objective Physical Examination Neck Exam: Positive: Supple Chest Exam: Positive: Rhonchi, Diminished Heart Exam: Positive: Rate Normal, Normal S1, Normal S2 Telemetry: Positive: AV Block Abdomen Exam: Positive: Normal bowel sounds, Soft Extremity Exam: Positive: Edema (, 2+ bipedal edema), Normal pulses Assessment /Plan Problems (1) Acute on chronic diastolic CHF (congestive heart failure) Status: Acute Problem Text: Patient was seen by cardiology, official report is still pending 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 We will continue Lasix 40 mg IV every 8 hours unless recommended. Otherwise by cardiology Patient was in negative balance of 500. This morning . Continue I&O's Continue all home meds Further recommendations as per cardiology (2) COPD (chronic obstructive pulmonary disease) Status: Acute Problem Text: There is slight improvement in air exchange in bilateral lungs, but still has rhonchi is bilaterally Will continue IV steroids and nebulizer treatment O2 support as needed Further depending on patient's response to current therapy (3) Atrial fibrillation and flutter Status: Chronic (4) HTN (hypertension) Status: Chronic Problem Text: Continue home meds (5) DM2 (diabetes mellitus, type 2) Status: Chronic Problem Text: . Continue home meds Gastric blood sugar every before meals and at bedtime with coverage Plan/VTE VTE Prophylaxis Ordered?: Yes VS, I&O, 24H, Fishbone Vital Signs/I&O Vital Signs Date Time Temp Pulse Resp B/P (MAP) Pulse Ox O2 Delivery O2 Flow Rate FiO2 11/19/18 08:00 2.0 11/19/18 07:44 97.3 74 20 125/59 (81) 93 11/18/18 20:15 Room Air I&O- Last 24 Hours up to 6 AM 11/19/18 06:00 Intake Total 300 ml Output Total 500 ml Balance -200 ml Laboratory Data 24H LABS Laboratory Tests 2 11/18/18 16:37: Immature Granulocyte % (Auto) 0.5, White Blood Count 7.8, Red Blood Count 3.71L, Hemoglobin 10.4L, Hematocrit 33.9L, Mean Corpuscular Volume 91.4, Mean Corpuscular Hemoglobin 28.0, Mean Corpuscular Hemoglobin Concent 30.7L, Red Cell Distribution Width 15.7H, Platelet Count 151, Neutrophils (%) (Auto) 77.0H, Lymphocytes (%) (Auto) 13.0L, Monocytes (%) (Auto) 6.3H, Eosinophils (%) (Auto) 2.8, Basophils (%) (Auto) 0.4, Neutrophils # (Auto) 6.0, Lymphocytes # (Auto) 1.0L, Monocytes # (Auto) 0.5, Eosinophils # (Auto) 0.2, Basophils # (Auto) 0.0, Nucleated Red Blood Cells % (auto) 0.0, Anion Gap 6L, Glomerular Filtration Rate 57.4, Blood Urea Nitrogen 16, Creatinine 1.00, Sodium Level 142, Potassium Level 4.4, Chloride Level 106, Carbon Dioxide Level 30, Calcium Level 9.1, Total Creatine Kinase 29, Creatine Kinase MB 1.2, Creatine Kinase MB Relative Index 4.14H, Troponin I < 0.02, BU-[id number]-Type Natriuretic Peptide 467H 11/18/18 20:55: Bedside Glucose (Misc Panel) 170H 11/18/18 23:29: Troponin I < 0.02, EG-Yuc-K-Type Natriuretic Peptide 401 11/19/18 05:28: Anion Gap 7L, Glomerular Filtration Rate 39.9, Blood Urea Nitrogen 21H, Creatinine 1.37H, Sodium Level 140, Potassium Level 4.0, Chloride Level 103, Carbon Dioxide Level 30, Calcium Level 9.2, Troponin I < 0.02, SS-Gxv-D-Type Natriuretic Peptide 376, Aspartate Amino Transf (AST/SGOT) 3L, Alanine Aminotransferase (ALT/SGPT) 10L, Alkaline Phosphatase 70, Total Bilirubin 0.5, Total Protein 6.3L, Albumin 3.3, Magnesium Level 1.6L, Albumin/Globulin Ratio 1.10 CBC/BMP Laboratory Tests 11/18/18 16:37 Red Blood Count 3.71 L, Mean Corpuscular Volume 91.4, Mean Corpuscular Hemoglobin 28.0, Mean Corpuscular Hemoglobin Concent 30.7 L, Red Cell Distribu tion Width 15.7 H, Neutrophils (%) (Auto) 77.0 H, Lymphocytes (%) (Auto) 13.0 L, Monocytes (%) (Auto) 6.3 H, Eosinophils (%) (Auto) 2.8, Basophils (%) (Auto) 0.4, Neutrophils # (Auto) 6.0, Lymphocytes # (Auto) 1.0 L, Monocytes # (Auto) 0.5, Eosinophils # (Auto) 0.2, Basophils # (Auto) 0.0, Calcium Level 9.1, Total Creatine Kinase 29 11/19/18 05:28 Calcium Level 9.2, Aspartate Amino Transf (AST/SGOT) 3 L, Alanine Aminotransferase (ALT/SGPT) 10 L, Alkaline Phosphatase 70, Total Bilirubin 0.5, Total Protein 6.3 L, Albumin 3.3 JANES DESHPANDE MD Nov 19, 2018 11:00
[2018-11-19] MEDS: buPROPion **XL** TABLET 150MG (WELLBUTRIN XL) PO SCH (20:14)
[2018-11-19] MEDS: CitaloPRAM (CeleXA) 20 MG TAB PO SCH (20:14)
[2018-11-19] MEDS: POTASSIUM CHLORIDE 10 MEQ SR TABLET PO SCH (20:14)
[2018-11-19] MEDS: RIVAROXABAN 15 MG TAB (XARELTO) PO SCH (20:14)
[2018-11-20] VITALS: BP 118/54
[2018-11-20] MEDS: IPRATROPIUM 0.5MG/ALBUTEROL 2.5MG INH SOL UD 3ML (DUONEB)(J7620) NEB SCH ×2 (01:23→07:35)
[2018-11-20] MEDS: methylPREDNISolone INJ 125 MG/2 ML VIAL (J2930) IV SCH (03:14)
[2018-11-20 04:00] VITALS: BP 135/88
[2018-11-20 05:40] LABS: BASO % 0.1 % (0.0-1.0); HEMATOCRIT 34.8 % (36.0-47.0); HEMOGLOBIN 10.8 g/dl (12.0-15.5); LYMPH # 0.6 10^3/uL (1.5-5.0); LYMPH % 3.5 % (24.0-44.0); MEAN CORPUSCULAR HEMOGLOBIN 28.2 pg (27.0-33.0); MEAN CORPUSCULAR VOLUME 90.9 fl (80.0-96.0); MONO # 0.2 10^3/uL (0.0-0.8); NEUTROPHILS # 15.9 10^3/uL (1.5-8.5); NEUTROPHILS % 94.5 % (36.0-66.0); PLATELET COUNT, AUTOMATED 139 10^3/uL (150-450); RED BLOOD COUNT 3.83 10^6/uL (4.00-5.40); WHITE BLOOD COUNT 16.8 10^3/uL (4.0-10.0)
[2018-11-20 06:07] LABS: CALCIUM LEVEL 9.5 MG/DL (8.8-10.2); CREATININE FOR GFR 1.69 MG/DL (0.55-1.30); GLOMERULAR FILTRATION RATE 31.3 (>39); POTASSIUM SERUM 4.6 MEQ/L (3.5-5.1)
[2018-11-20] MEDS: ADVAIR HFA 230/21MCG INHALER INH SCH (07:34)
[2018-11-20 08:00] VITALS: BP 126/58
--- NOTE | 2018-11-20 08:13 | REP ---
Portable chest x-ray: Single view. History: CHF. Comparison chest x-ray: November 18, 2018. Findings: EKG electrodes are seen. Pacemaker remains in place. Moderate cardiac enlargement is again noted unchanged. Pulmonary vasculature is slightly cephalized. No pleural effusion or pulmonary edema is seen. There are some increased markings in the left perihilar region adjacent to the pacemaker power plant. A subtle infiltrate is suspected. Impression: Cardiomegaly and vascular cephalization with pacemaker. Increased markings left perihilar region question subtle infiltrate Electronically Signed by Eddi Thompson MD 11/20/2018 08:04 A
[2018-11-20] MEDS: PILOCARPINE 4% OPHTH SOLN 15 ML OU SCH (09:00)
[2018-11-20] MEDS: BRIMONIDINE 0.1% OPHTH SOLN 5 ML OU SCH (09:00)
[2018-11-20] MEDS ORDERED: PRED10TA2 PO (10:06)
[2018-11-20] MEDS: HumaLOG INSULIN (NovoLOG) PER UNIT SC SCH (10:10)
[2018-11-20] MEDS: DOCUSATE SODIUM 100 MG CAP PO SCH (10:10)
[2018-11-20] MEDS: FUROSEMIDE 40 MG/4 ML VIAL (J1940) IV SCH (10:11)
--- NOTE | 2018-11-20 13:54 | DS.PDOC ---
Discharge Summary General Date of Admission Nov 18, 2018 at 18:03 Date of Discharge 11/20/18 Attending Physician: JANES DESHPANDE MD Discharge Summary PROCEDURES PERFORMED DURING STAY: None. ADMITTING DIAGNOSES: 1. Acute on chronic diastolic heart failure, exacerbation of COPD. DISCHARGE DIAGNOSES: 1. Acute on chronic diastolic heart failure, exacerbation of COPD, hypertension, diabetes mellitus, sick sinus syndrome with pacemaker. COMPLICATIONS/CHIEF COMPLAINT: Chf Copd. HISTORY OF PRESENT ILLNESS: 77. She is also obese white female with past medical history of multiple medical problems including COPD, a flutter up strict is sleep apnea, diabetes mellitus, chronic hypertension, chronic diastolic congestive heart failure, sick sinus syndrome with dual-chamber pacemaker, hi story of anxiety, depression, glaucoma, breast cancer with left partial mastectomy of the breast, appendectomy, hysterectomy, has not been feeling well, increasing shortness of breath since last few days. She decided to see her ladle repairer, Dr. ding today. In doctor's office. Office and was decided to transfer her to emergency room for IV diuresis for her congestive heart failure. As per patient, she feels like when she gets filled up with fluid. No chest pain, no dizziness, no nausea, vomiting, diarrhea, etc.. HOSPITAL COURSE: Posteriorly patient most likely had acute on chronic diastolic heart failure. BNP was slightly elevated and chest x-ray showed mild vascular congestion. Patient received Lasix 80 mg IV with good diuresis in ED and she was started on 40 mg IV every 8 hours with -500 mL of negative balance in last 2 days. Patient is feeling clinically much better, decreased workload of respiration and wishes to be discharged to follow-up as an outpatient and wants to follow-up w pancho ding as outpatient Patient will be discharged home on all current medications including by mouth Lasix and potassium supplement Patient was also found to have exacerbation of COPD on examination. Hence, she was started on DuoNeb every 6 hours and every 2 hours when necessary as well as IV Solu-Medrol. Oxygen supplementation also was provided and patient responded well to 1 treatment and today she'll be discharged home on by mouth prednisone. She has a nebulizer machine at home which she'll be using. Regarding his atrial fibrillation/flutter. Patient has remained asymptomatic and will continue home medications . DISCHARGE MEDICATIONS: Please see below. ALLERGIES: Please see below. PHYSICAL EXAMINATION ON DISCHARGE: VITAL SIGNS: Please see below. GENERAL: Within normal limits HEENT: PERRLA Regular muscles intact NECK: Supple CARDIOVASCULAR EXAMINATION:. S1, S2, regular RESPIRATORY EXAMINATION:, Scattered rhonchi bilaterally but no wheezing, rales or or crackles ABDOMINAL EXAMINATION:. Benign EXTREMITIES:. No clubbing, cyanosis, 1+ bipedal edema SKIN: Normal NEUROLOGICAL EXAMINATION:. No focal motor sensory deficit PSYCHIATRIC EXAMINATION:. Normal LABORATORY DATA: Please see below. IMAGING: Chest x-ray:Impression: Cardiomegaly and vascular cephalization with pacemaker. Increased markings left perihilar region question subtle infiltrate PROGNOSIS: Good ACTIVITY: As tolerated. DIET: Carbohydrate consistent diet DISCHARGE PLAN: Follow with cardiology and PCP in one week DISPOSITION: 01 Home, Self-Care. DISCHARGE INSTRUCTIONS: 1. As per discharge instructions. ITEMS TO FOLLOWUP ON ON OUTPATIENT: 1. Follow with cardiology and PCP in one week. DISCHARGE CONDITION: Stable. TIME SPENT ON DISCHARGE: 48 minutes. Vital Signs/I&Os Vital Signs Date Time Temp Pulse Resp B/P (MAP) Pulse Ox O2 Delivery O2 Flow Rate FiO2 11/20/18 08:00 96.9 76 18 126/58 (80) 18 11/20/18 04:00 2.0 11/18/18 20:15 Room Air I&O- Last 24 Hours up to 6 AM 11/20/18 06:00 Intake Total 1680 ml Output Total 1375 ml Balance 305 ml Laboratory Data Labs 24H Laboratory Tests 2 11/19/18 17:02: Bedside Glucose (Misc Panel) 349H 11/19/18 20:12: Bedside Glucose (Misc Panel) 383H 11/20/18 05:23: Immature Granulocyte % (Auto) 0.9, White Blood Count 16.8H, Red Blood Count 3.83L, Hemoglobin 10.8L, Hematocrit 34.8L, Mean Corpuscular Volume 90.9, Mean Corpuscular Hemoglobin 28.2, Mean Corpuscular Hemoglobin Concent 31.0L, Red Cell Distribution Width 15.7H, Platelet Count 139L, Neutrophils (%) (Auto) 94.5H, Lymphocytes (%) (Auto) 3.5L, Monocytes (%) (Auto) 1.0, Eosinophils (%) (Auto) 0.0, Basophils (%) (Auto) 0.1, Neutrophils # (Auto) 15.9H, Lymphocytes # (Auto) 0.6L, Monocytes # (Auto) 0.2, Eosinophils # (Auto) 0.0, Basophils # (Auto) 0.0, Nucleated Red Blood Cells % (auto) 0.0, Anion Gap 7L, Glomerular Filtration Rate 31.3L, Blood Urea Nitrogen 39#H, Creatinine 1.69H, Sodium Level 135L, Potassium Level 4.6, Chloride Level 102, Carbon Dioxide Level 26, Calcium Level 9.5 CBC/BMP Laboratory Tests 11/20/18 05:23 Red Blood Count 3.83 L, Mean Corpuscular Volume 90.9, Mean Corpuscular Hemoglobin 28.2, Mean Corpuscular Hemoglobin Concent 31.0 L, Red Cell Distribution Width 15.7 H, Neutrophils (%) (Auto) 94.5 H, Lymphocytes (%) (Auto) 3.5 L, Monocytes (%) (Auto) 1.0, Eosinophils (%) (Auto) 0.0, Basophils (%) (Auto) 0.1, Neutrophils # (Auto) 15.9 H, Lymphocytes # (Auto) 0.6 L, Monocytes # (Auto) 0.2, Eosinophils # (Auto) 0.0, Basophils # (Auto) 0.0, Calcium Level 9.5 FSBS Laboratory Tests Test 11/19/18 17:02 11/19/18 20:12 Range/Units Bedside Glucose (Misc Panel) 349 383 83-110 MG/DL Discharge Medications Scheduled Bimatoprost (Lumigan) 50 Drop/2.5 Ml Farrah, 1 DROP OU QHS, (Reported) Brimonidine Tartrate (Alphagan P) 100 Drop/5 Ml Soln, 1 DROP OU BID, (Reported) Bupropion Hcl (Bupropion Xl) 150 Mg Tab, 150 MG PO QHS, (Reported) Citalopram Hydrobromide (Celexa) 40 Mg Tab, 40 MG PO QHS, (Reported) Diltiazem HCl (Diltiazem HCl) 60 Mg Tab, 60 MG PO QHS, (Reported) Fluticasone Propion/Salmeterol (Advair Hfa 230-21 Mcg Inhaler) 1 Aer Aer, 2 PUFF INH BID, (Reported) Furosemide (Furosemide) 20 Mg Tablet, 20 MG PO DAILY, (Reported) Pilocarpine HCl (Pilocarpine HCl 4% Opth Farrah) 4 % Farrah, 1 DROP OU BID, (Reported) Potassium Chloride (K-Tab ER) 20 Meq Tab, 20 MEQ PO QHS, (Reported) Prednisone (Prednisone) 10 Mg Tablet, 10 MG PO TAPER Take 4 tabs daily x 3 days, then 3 tabs daily x 3 days, then 2 tabs daily x 3 days, then 1 tab daily x 3 days and stop Rivaroxaban (Xarelto) 15 Mg Tab, 15 MG PO QHS, (Reported) Scheduled PRN Albuterol Sulfate (Proair Hfa) 108 Mcg/Act Aer, 2 PUFF INH Q4H PRN for SOB/WHEEZING, (Reported) Carbamide Peroxide (Debrox) 6.5 % Farrah, 5 DROP AU BID PRN for SYMPTOM RELIEF, (Reported) Fluticasone Propionate (Flonase Allergy Relief) 9.9 Ml [place].susp, 2 SPRAY NA DAILY PRN for ALLERGIES, (Reported) Guaifenesin (Mucinex) 600 Mg Tab.er.12h, 1,200 MG PO BID PRN for CONGESTION/COUGH, (Reported) Ipratropium/Albuterol Sulfate (Iprat-Albut 0.5-3(2.5) mg/3 ml) 1 Farrah Farrah, 1 FARRAH INH QID PRN for SHORTNESS OF BREATH, (Reported) Allergies Coded Allergies: Penicillins (Verified Allergy, Mild, RASH, 10/05/18) Sulfa (Sulfonamide Antibiotics) (Verified Allergy, Mild, RASH, 10/05/18) clindamycin (Verified Allergy, Mild, RASH, 10/05/18) codeine (Verified Allergy, Mild, STOMACH UPSET, RASH, 10/05/18) meperidine (Verified Allergy, Mild, STOMACH UPSET, RASH, 10/05/18) JANES DESHPANDE MD Nov 20, 2018 13:54
== END 2018-11-20 11:08 | disposition home or self-care (01) | DRG 291 ==
LOC: M ED 16:03 → M ED INP 18:03 → M PCU 20:30
PROVIDERS: ADMIT Internal Medicine; ATTEND Internal Medicine
DX: I13.0 Hypertensive heart and chronic kidney disease with heart failure and stage 1 through stage 4 chronic kidney disease, or unspecified chronic kidney disease (principal); I50.33 Acute on chronic diastolic (congestive) heart failure; I48.92 Unspecified atrial flutter; J44.1 Chronic obstructive pulmonary disease with (acute) exacerbation; Z68.42 Body mass index [BMI] 45.0-49.9, adult; E11.9 Type 2 diabetes mellitus without complications; G47.33 Obstructive sleep apnea (adult) (pediatric); F41.9 Anxiety disorder, unspecified; E66.9 Obesity, unspecified; F32.9 Major depressive disorder, single episode, unspecified; K21.9 Gastro-esophageal reflux disease without esophagitis; H40.9 Unspecified glaucoma; N18.3 Chronic kidney disease, stage 3 (moderate); Z85.3 Personal history of malignant neoplasm of breast; Z88.8 Allergy status to other drugs, medicaments and biological substances; Z94.9 Transplanted organ and tissue status, unspecified; Z90.710 Acquired absence of both cervix and uterus; Z95.0 Presence of cardiac pacemaker; Z79.01 Long term (current) use of anticoagulants; Z79.899 Other long term (current) drug therapy; Z88.0 Allergy status to penicillin; Z88.2 Allergy status to sulfonamides; Z88.5 Allergy status to narcotic agent; Z88.1 Allergy status to other antibiotic agents; Z87.891 Personal history of nicotine dependence

== ENCOUNTER 2018-12-10 00:59 | Emergency (ER) | payer MEDICARE, OTHER ==
[~2018-12-10] VITALS: Ht 157.5 cm; Wt 118.2 kg
[2018-12-10] MEDS ORDERED: methylPREDNISolone INJ 125 MG/2 ML VIAL (J2930) IV ONE (01:30)
[2018-12-10] MEDS ORDERED: IPRATROPIUM 0.5MG/ALBUTEROL 2.5MG INH SOL UD 3ML (DUONEB)(J7620) NEB ONE (01:30)
[2018-12-10 02:09] LABS: BASO % 0.2 % (0.0-1.0); EOS # 0.4 10^3/uL (0.0-0.5); EOS % 2.3 % (0.0-3.0); HEMATOCRIT 37.2 % (36.0-47.0); HEMOGLOBIN 11.6 g/dl (12.0-15.5); LYMPH # 1.5 10^3/uL (1.5-5.0); MEAN CORPUSCULAR HEMOGLOBIN 28.3 pg (27.0-33.0); MEAN CORPUSCULAR HGB CONC 31.2 g/dl (32.0-36.5); MEAN CORPUSCULAR VOLUME 90.7 fl (80.0-96.0); MONO % 5.8 % (0.0-5.0); NEUTROPHILS # 13.6 10^3/uL (1.5-8.5); NEUTROPHILS % 82.2 % (36.0-66.0); PLATELET COUNT, AUTOMATED 153 10^3/uL (150-450); WHITE BLOOD COUNT 16.5 10^3/uL (4.0-10.0)
[2018-12-10 02:17] LABS: ABG BASE EXCESS 2.1 (-2.0-2.0); ABG HCO3 26.4 MEQ/L (22.0-26.0); ABG O2 SATURATION 96.4 % (95.0-99.0); ABG PARTIAL PRESSURE CO2 40.1 mmHg (35.0-45.0); ABG PARTIAL PRESSURE O2 84.1 mmHg (75.0-100.0); ABG STANDARD HCO3 26.3 MEQ/L (22.0-26.0); ABG TOTAL CO2 27.6 MEQ/L (23.0-31.0); ABG pH (ARTERIAL) 7.436 UNITS (7.350-7.450)
[2018-12-10 02:42] LABS: BLOOD UREA NITROGEN 15 MG/DL (7-18); CALCIUM LEVEL 7.9 MG/DL (8.8-10.2); CARBON DIOXIDE LEVEL 29 MEQ/L (21-32); CHLORIDE LEVEL 103 MEQ/L (98-107); CK-MB VALUE MASS < 1.0 NG/ML (<3.6); CPK CREATINE PHOSPHOKINASE 28 U/L (26-192); CREATININE FOR GFR 1.17 MG/DL (0.55-1.30); GLOMERULAR FILTRATION RATE 47.9 (>39); GLUCOSE, FASTING 162 MG/DL (70-100); MB/CK RELATIVE INDEX 3.57 (< OR =4); NT-PRO BNP 909 PG/ML (<450); POTASSIUM SERUM 3.9 MEQ/L (3.5-5.1); SODIUM LEVEL 140 MEQ/L (136-145); TROPONIN I < 0.02 NG/ML (< 0.10)
--- NOTE | 2018-12-10 04:00 | REPVR ---
PROCEDURE INFORMATION: Exam: CT Chest Without Contrast Exam date and time: 12/10/2018 2:46 AM Clinical history: 77 years old, female; Shortness of breath; Additional info: Perihilar infiltrates, pn v chf TECHNIQUE: Imaging protocol: Computed tomography of the chest without contrast. 3D rendering: MIP reconstructed images were created and reviewed. Radiation optimization: All CT scans at this facility use at least one of these dose optimization techniques: automated exposure control; mA and/or kV adjustment per patient size (includes targeted exams where dose is matched to clinical indication); or iterative reconstruction. COMPARISON: CT Chest without contrast 07/02/2017 11:16 PM FINDINGS: Limitations: Limited by patient's body habitus. Motion artifact does moderately limit the sensitivity of this examination. Study is limited by the absence of contrast. Tubes, catheters and devices: AICD/Pacemaker device is present, and its leads are in appropriate position. Lungs: Left lower lobe 12 mm nodule on series 201 image 55. Mild hazy groundglass opacities, and intralobular septal thickening. Correlate for causes of interstitial lung disease. Pleural space: Unremarkable. No pneumothorax. No pleural effusion. Heart: Mild cardiac enlargement. Pulmonary arteries: The pulmonary arteries demonstrate moderate central enlargement, consistent with moderate pulmonary hypertension. Aorta: Unremarkable. No aortic aneurysm. Lymph nodes: Unremarkable. No enlarged lymph nodes. Spleen: Splenomegaly. Kidneys and ureters: Left renal cysts measuring up to 4 cm. Bones/joints: Minimal dextroconvex thoracic curvature. Soft tissues: Unremarkable. IMPRESSION: 1. Left lower lobe 12 mm nodule on series 201 image 55. 2. Mild hazy groundglass opacities, and intralobular septal thickening. Correlate for causes of interstitial type lung disease. Appears chronic. COMMENT: As per Fleischner Society guidelines for follow-up and management of pulmonary nodules: Recommend initial follow-up chest CT at 3, 9 and 24 months. Consider contrast enhanced chest CT, PET scan and/or biopsy as clinically warranted. Electronically signed by: Km Jackson On 12/10/2018 03:59:47 AM
[2018-12-10] MEDS ORDERED: FUROSEMIDE 40 MG/4 ML VIAL (J1940) IV ONE (04:15)
[2018-12-10] MEDS ORDERED: FURO40TA2 PO (05:31)
[2018-12-10 05:43] VITALS: BP 141/63
--- NOTE | 2018-12-10 05:55 | ECGEPIP ---
[facility] - ED Test Date: 2018-12-10 Pat Name: MYAH DEAL Department: Room: - Gender: Female Vp Foundation: DAY : 1940 Requested By: Doug Hurtado Order Number: [id number] Reading MD: Doug Julien Measurements Intervals [place] Rate: 69 P: 133 MA: 181 QRS: 17 QRSD: 112 T: 89 QT: 273 QTc: 294 Interpretive Statements ELECTRONIC ATRIAL PACEMAKER MODERATE INTRAVENTRICULAR CONDUCTION DELAY NONSPECIFIC ST & T-WAVE ABNORMALITY SIMILAR TO 11/18/18 Electronically Signed on 12-10-2018 5:54:47 EDT by Doug Julien
--- NOTE | 2018-12-10 08:01 | REP ---
Two-view chest: 12/10/2018. Indication: Dyspnea. Comparison: 11/20/2018. Findings: Cardiomegaly is redemonstrated. Interstitial and vascular markings are mildly prominent. Left-sided dual lead pacer is present with the leads intact. There is no pleural effusion or pneumothorax. Impression: Findings suggestive of early CHF. Please correlate. Electronically Signed by Jacobo Amaya DO 12/10/2018 07:53 A
--- NOTE | 2018-12-10 14:32 | ED PDOC ---
Post-Departure Follow-Up dr ku faxed formal report of cta chest for fu Eunice Pearl MD Dec 10, 2018 14:32
== END 2018-12-10 05:52 | disposition home or self-care (01) ==
LOC: M ED 00:59
DX: I50.9 Heart failure, unspecified (principal); E11.9 Type 2 diabetes mellitus without complications; I11.0 Hypertensive heart disease with heart failure; E78.5 Hyperlipidemia, unspecified; Z79.899 Other long term (current) drug therapy; Z79.01 Long term (current) use of anticoagulants; Z88.0 Allergy status to penicillin; Z88.1 Allergy status to other antibiotic agents; Z88.2 Allergy status to sulfonamides; Z88.5 Allergy status to narcotic agent; Z88.8 Allergy status to other drugs, medicaments and biological substances; Z87.891 Personal history of nicotine dependence
CPT/HCPCS: 36600; 71046; 71250; 80048; 82550; 82553; 82803; 83605; 83880; 84443; 84484; 85025; 87040; 93005; 93041; 94640; 96374; 96375; 99284; J1940; J2930

== ENCOUNTER 2019-05-16 18:18 | Emergency (ER) | payer MEDICARE, OTHER ==
[~2019-05-16] VITALS: Ht 157.5 cm; Wt 118.2 kg
[~2019-05-16 18:18] MED LIST changes: -FLUO20CA19 PO; +FLUO20CA22 PO
[2019-05-16] MEDS ORDERED: XARE20TA (18:37)
[2019-05-16] MEDS ORDERED: PRED5TA (18:37)
[2019-05-16] MEDS ORDERED: traMADol 50 MG TAB PO ONE ×2 (19:00→20:30)
--- NOTE | 2019-05-16 19:33 | REPVR ---
PROCEDURE INFORMATION: Exam: US Duplex Left Lower Extremity Veins, Limited Exam date and time: 05/16/2019 7:19 PM Age: 78 years old Clinical indication: Pain; Other: Knee; Additional info: Left leg pain and swelling, history of dvt TECHNIQUE: Imaging protocol: Real-time Duplex ultrasound of the Left Lower Extremity with 2-D navarro scale, color Doppler flow and spectral waveform analysis with image documentation. Limited exam focused on the left lower extremity veins. COMPARISON: US Duplex, Ext,LOWER veins,unilat 10/04/2018 11:32 PM FINDINGS: Left deep veins: Unremarkable. The common femoral, femoral, proximal profunda femoral and popliteal veins are patent without thrombus. Normal Doppler waveforms. Normal compressibility and/or augmentation response. Left superficial veins: Unremarkable. Saphenofemoral junction is patent without thrombus. Soft tissues: There is a small simple appearing fluid collection labeled left anterior knee which measures 1.7 by 2.0 x 0.5 cm which may represent a joint effusion. IMPRESSION: No evidence of deep vein thrombosis. Electronically signed by: Nataliia Liu On 05/16/2019 19:33:10 PM
[2019-05-16 19:34] LABS: BASO % 0.3 % (0.0-1.0); EOS # 0.1 10^3/uL (0.0-0.5); EOS % 1.1 % (0.0-3.0); HEMATOCRIT 39.9 % (36.0-47.0); HEMOGLOBIN 12.3 g/dl (12.0-15.5); LYMPH # 0.8 10^3/uL (1.5-5.0); LYMPH % 7.4 % (24.0-44.0); MEAN CORPUSCULAR HEMOGLOBIN 27.5 pg (27.0-33.0); MEAN CORPUSCULAR HGB CONC 30.8 g/dl (32.0-36.5); MEAN CORPUSCULAR VOLUME 89.1 fl (80.0-96.0); MONO # 0.4 10^3/uL (0.0-0.8); MONO % 3.4 % (0.0-5.0); NEUTROPHILS # 8.9 10^3/uL (1.5-8.5); NEUTROPHILS % 87.2 % (36.0-66.0); PLATELET COUNT, AUTOMATED 163 10^3/uL (150-450); RED BLOOD COUNT 4.48 10^6/uL (4.00-5.40); WHITE BLOOD COUNT 10.3 10^3/uL (4.0-10.0)
--- NOTE | 2019-05-16 19:55 | REP ---
Clinical: Shortness of breath. Technique: PA and lateral. Comparison: 12/10/2018. Findings: Mild cardiomegaly along with indistinct central pulmonary vasculature and mild cephalization as well as subtle lower lobe air space disease suggests early CHF/pulmonary vascular congestion. No effusion. No pneumothorax. Skeletal structures intact. Dual lead pacemaker in stable position. Impression: Findings suggesting pulmonary vascular congestion/early CHF. Differential diagnosis cannot exclude early airspace disease. Electronically Signed by Errol Harkins MD 05/16/2019 07:46 P
[2019-05-16 19:56] LABS: CK-MB VALUE MASS 1.3 NG/ML (<3.6); CPK CREATINE PHOSPHOKINASE 39 U/L (26-192); MB/CK RELATIVE INDEX 3.33 (< OR =4); NT-PRO BNP 368 PG/ML (<450); TROPONIN I < 0.02 NG/ML (< 0.10)
[2019-05-16] MEDS ORDERED: TRAM50TA2 PO ×2 (20:25→20:27)
[2019-05-16] MEDS ORDERED: ANEC4CRE3 TOP (20:25)
[2019-05-16] MEDS ORDERED: LIDOCAINE 4% CREAM 5GM (LMX4) TOP ONE (20:30)
[2019-05-16 20:40] VITALS: BP 125/59
--- NOTE | 2019-05-17 07:45 | ED PDOC ---
Post-Departure Follow-Up dr ku faxed formal report of cxr for fu Eunice Pearl MD May 17, 2019 07:45
== END 2019-05-16 20:45 | disposition home or self-care (01) ==
LOC: M ED 18:18
DX: M79.605 Pain in left leg (principal); R60.9 Edema, unspecified; I50.9 Heart failure, unspecified; E11.9 Type 2 diabetes mellitus without complications; I10 Essential (primary) hypertension; K21.9 Gastro-esophageal reflux disease without esophagitis; J45.909 Unspecified asthma, uncomplicated; Z86.718 Personal history of other venous thrombosis and embolism; Z95.0 Presence of cardiac pacemaker; Z79.01 Long term (current) use of anticoagulants; Z79.899 Other long term (current) drug therapy; Z88.0 Allergy status to penicillin; Z88.2 Allergy status to sulfonamides; Z88.5 Allergy status to narcotic agent

== ENCOUNTER 2019-06-27 18:50 | Inpatient (IN) | payer MEDICARE, OTHER ==
[~2019-06-27] VITALS: Ht 157.5 cm; Wt 115.4 kg
[~2019-06-27 18:50] MED LIST changes: +ANEC4CRE3 TOP; +TRAM50TA2 PO
[2019-06-27] MEDS ORDERED: NITROGLYCERIN 0.4 MG SUBL TABLET SL PRN (19:45)
[2019-06-27] MEDS ORDERED: COMBIVENT RESPIMAT 100-20MCG INHALER 4GM INH ONE (19:45)
[2019-06-27] MEDS ORDERED: ASPIRIN 81 MG CHEW TABLET PO ONE (19:45)
[2019-06-27 19:53] LABS: BASO % 0.3 % (0.0-1.0); EOS # 0.1 10^3/uL (0.0-0.5); EOS % 0.7 % (0.0-3.0); HEMATOCRIT 42.8 % (36.0-47.0); HEMOGLOBIN 13.7 g/dl (12.0-15.5); LYMPH # 1.8 10^3/uL (1.5-5.0); LYMPH % 11.6 % (24.0-44.0); MEAN CORPUSCULAR HEMOGLOBIN 27.8 pg (27.0-33.0); MONO # 0.8 10^3/uL (0.0-0.8); MONO % 5.3 % (0.0-5.0); NEUTROPHILS # 12.5 10^3/uL (1.5-8.5); NEUTROPHILS % 81.2 % (36.0-66.0); PLATELET COUNT, AUTOMATED 187 10^3/uL (150-450); RED BLOOD COUNT 4.92 10^6/uL (4.00-5.40); WHITE BLOOD COUNT 15.4 10^3/uL (4.0-10.0)
[2019-06-27] MEDS ORDERED: ADVAIR HFA 230/21MCG INHALER INH SCH (20:00)
[2019-06-27] MEDS ORDERED: TRAM50TA2 PO (20:12)
[2019-06-27] MEDS ORDERED: FURO40TA2 PO (20:12)
[2019-06-27] MEDS ORDERED: ANEC4CRE3 TOP (20:12)
[2019-06-27] MEDS ORDERED: POTA1TAB14 PO (20:12)
[2019-06-27 20:21] LABS: ALBUMIN 3.3 GM/DL (3.2-5.2); ALT/SGPT 18 U/L (12-78); BILIRUBIN,DIRECT 0.3 MG/DL (0.0-0.2); BILIRUBIN,TOTAL 0.8 MG/DL (0.2-1.0); BLOOD UREA NITROGEN 24 MG/DL (7-18); CALCIUM LEVEL 9.4 MG/DL (8.8-10.2); CARBON DIOXIDE LEVEL 34 MEQ/L (21-32); CHLORIDE LEVEL 96 MEQ/L (98-107); CK-MB VALUE MASS 1.2 NG/ML (<3.6); CPK CREATINE PHOSPHOKINASE 34 U/L (26-192); CREATININE FOR GFR 1.35 MG/DL (0.55-1.30); GLOMERULAR FILTRATION RATE 40.5 (>39); GLUCOSE, FASTING 159 MG/DL (70-100); MB/CK RELATIVE INDEX 3.53 (< OR =4); NT-PRO BNP 214 PG/ML (<450); POTASSIUM SERUM 2.8 MEQ/L (3.5-5.1); SODIUM LEVEL 140 MEQ/L (136-145); TROPONIN I < 0.02 NG/ML (< 0.10)
[2019-06-27] MEDS: HumaLOG INSULIN (NovoLOG) PER UNIT SC SCH (21:00)
[2019-06-27] MEDS ORDERED: ISOVUE-370 76% 100ML VIAL As Ordered ONE (21:13)
[2019-06-27] MEDS ORDERED: POTASSIUM CHLORIDE 10 MEQ SR TABLET PO ONE (21:15)
[2019-06-27 21:17] LABS: MAGNESIUM LEVEL 1.6 MG/DL (1.8-2.4)
[2019-06-27] MEDS ORDERED: MAG SULF 1GM/100ML (MAG RUN) 1 GM in IV 1 EA IV ONE (21:30)
--- NOTE | 2019-06-27 21:54 | REPVR ---
PROCEDURE INFORMATION: Exam: CT Angiography Chest With Contrast Exam date and time: 06/27/2019 9:20 PM Age: 78 years old Clinical indication: Shortness of breath; Chest pain; Additional info: Chest pain, SOB TECHNIQUE: Imaging protocol: Computed tomographic angiography of the chest with intravenous contrast. 3D rendering: MIP and/or 3D reconstructed images were created by the technologist. Radiation optimization: All CT scans at this facility use at least one of these dose optimization techniques: automated exposure control; mA and/or kV adjustment per patient size (includes targeted exams where dose is matched to clinical indication); or iterative reconstruction. Contrast material: ISOVUE 370; Contrast volume: 75 ml; Contrast route: IV; COMPARISON: CT ANGIO CHEST 05/18/2017 11:10 PM, chest CT without contrast 12/10/2018 FINDINGS: Tubes, catheters and devices: There is a pacemaker in the left anterior chest wall. Pulmonary arteries: No evidence of pulmonary artery emboli. Aorta: No evidence of thoracic aortic aneurysm or dissection. Lungs: Series 402 image 60, 10 mm left lower lobe nodule, stable in comparison with prior scan. This is not seen on earlier scans. Image 40, 6 mm nodule right lower lobe which is stable compared with prior scan. No larger or progressive nodules identified. No consolidation. Pleural space: Unremarkable. No pneumothorax. No pleural effusion. Heart: Unremarkable. No cardiomegaly. No pericardial effusion. Mediastinum: There is a small hiatal hernia. Lymph nodes: Unremarkable. No enlarged lymph nodes. Spleen: There is splenomegaly. The spleen measures at least 14.5 cm.. It is incompletely included on this scan. Bones/joints: There is a mild compression fracture of T2 with 30% loss of height. No cortical defect to indicate acute fracture. However this was not present on the prior scan. There are also old right rib fractures not present on prior scan. No acute fracture identified. . No acute fracture. Soft tissues: Unremarkable. IMPRESSION: 1. No pulmonary emboli. 2. No acute findings. 3. 10 mm left lower lobe and 6 mm right lower lobe nodules are stable compared with prior scan. Continued follow-up recommended in 9 months and 24 months as per Fleischner protocol. 4. Mild T2 compression fracture and right rib fractures do not appear acute, but have occurred since the previous scan. Electronically signed by: Giorgio Falk On 06/27/2019 21:53:39 PM
--- NOTE | 2019-06-27 22:50 | HPEPDOC ---
[facility] Medical History & Physical Date of Admission June 27, 2019 Date of Service: June 27, 2019 Attending Physician: LEONELA LESLIE MD History and Physical Time of service 2337 CC chest pressure palpitations This is a 78 yr old female who presents with complaints of 5/10 mid, non radiating chest pressure that occurred this evening while she was eating dinner, lasted for about 30 min and was associated with palpitations. She had similar chest pressure in the past which resolved on its own. She has also been having palpitations, off and on, and had a loop recorder placed by on Friday. She has COPD and uses nocturnal O2. For over a week she as been feeling short of breath especially when she walks a few feet. As a result she has been using her inhalers more often. She denies having GRAYSON, n/v/f/c, runny nose, sick contacts, leg swelling or feeling like she is retaining water. Per her chest pain resolved with aspirin, nitroglycerin and her shortness of breath improved after receiving steroids, nebs, and supplemental O2. REVIEW OF SYSTEMS: 12 point review of systems negative except as listed in HPI PAST MEDICAL/ SURGICAL HISTORY: COPD Mod Pulm HTN Hx A flutter s/p ablation EDGARD NIDDM Chronic HTN Chronic grade 2 diastolic CHF Sick sinus syndrome with dual-chamber pacemaker Anxiety / Depression glaucoma Breast cancer with left partial mastectomy of the breast Appendectomy Hysterectomy SOCIAL HISTORY: quit smoking FAMILY HISTORY: Colon Cancer [place] ALLERGIES: Please see below. HOME MEDICATIONS: Please see below. PHYSICAL EXAMINATION: Vital Signs Date Time Temp Pulse Resp B/P (MAP) Pulse Ox O2 Delivery O2 Flow Rate FiO2 06/27/19 18:51 98.2 95 22 182/79 (113) 97 Room Air 06/27/19 19:18 2.0 GEN: well nourished / well developed/ NAD INTEGUMENT: she doesn't have facial plethora HEENT:NCAT / she doesn't have pursed lip breathing / NC in place CVS: RRR/ NMRG/ radial pulses intact / trace lower extremity edema LUNGS: she doesn't have nasal flaring / she is able to speak full sentences without stopping to take a breath / coughing / there is decreased respiratory expansion/ she has crackles at the lung bases ABDOMEN: there are no masses or lesions / bowel sounds are present / the abdomen is tympanic on percussion, soft & not tender with palpation MSK/EXTREMITIES: range of motion intact in all 4 extremities / no scoliosis / no kyphosis NEURO: CN 2-12 are grossly intact / speech is not dysarthric PSYCH: alert and oriented to person place and time/ able to understand and follow all commands LABORATORY DATA: Immature Granulocyte % (Auto) 0.9, Neutrophils (%) (Auto) 81.2H, Lymphocytes (%) (Auto) 11.6L, Monocytes (%) (Auto) 5.3H, Eosinophils (%) (Auto) 0.7, Basophils (%) (Auto) 0.3, Neutrophils # (Auto) 12.5H, Lymphocytes # (Auto) 1.8, Monocytes # (Auto) 0.8, Eosinophils # (Auto) 0.1, Basophils # (Auto) 0.0, Nucleated Red Blood Cells % (auto) 0.0, Anion Gap 10, Glomerular Filtration Rate 40.5, Lactic Acid Level 2.6*H, Calcium Level 9.4, Magnesium Level 1.6L, Total Bilirubin 0.8, Direct Bilirubin 0.3H, Aspartate Amino Transf (AST/SGOT) 3L, Alanine Aminotransferase (ALT/SGPT) 18, Alkaline Phosphatase 63, Total Creatine Kinase 34, Creatine Kinase MB 1.2, Creatine Kinase MB Relative Index 3.53, Troponin I < 0.02, UE-Btp-O-Type Natriuretic Peptide 214, Total Protein 6.0L, Albumin 3.3, Albumin/Globulin Ratio 1.22 06/27/19 20:09: Coronavirus (COVID-19)(PCR) NEGATIVE IMAGING: CT chest "IMPRESSION: 1. No pulmonary emboli. 2. No acute findings. 3. 10 mm left lower lobe and 6 mm right lower lobe nodules are stable compared with prior scan. Continued follow-up recommended in 9 months and 24 months as per Fleischner protocol. 4. Mild T2 compression fracture and right rib fractures do not appear acute, but have occurred since the previous scan." MICROBIOLOGY: 06/27/19 Respiratory Virus Panel (PCR) (EMILEE) - Final, Complete 06/27/19 Blood Culture, Received Pending 06/27/19 Blood Culture, Received Pending ASSESSMENT: is a 78 yr old w a hx of COPD, EDGARD, NIDDM, chronic HTN, pulm HTN, chronic diastolic CHF, sick sinus syndrome with dual-chamber pacemaker, anxiety, depression & glaucoma, who is admitted for evaluation of chest pain and palpitations possibly 2/2 electrolyte abnormalities. PLAN: 1. Chest pain Possibly 2/2 palpitations EKG showed NRS Troponin & BNP are wnl She received one dose of ASA in the ER The most recent Echo in 2019 showed grade 2 DD and mod pulm HTN I am unable to find results of stress tests or angiograms in [facility] [place] Plan: admit to PCU / telemetry / f/u 2 more troponins/ Acetaminophen & Nitro PRN for chest pain 2. Palpitations Possibly 2/2 to hypokalemia and hypomagnesemia from neb use Plan: telemetry / replete lytes 3. Mild acute COPD Possibly 2/2 aspiration The CTA & respiratory panel are unremarkable Plan: supplemental O2 / aspiration precautions / Dunebs Q6H, Levalbuterol Q1HP/ increase Prednisone from 5 to 40 mg daily + PPI / will not give Levofloxacin because the patient doesn't have a change in sputum color OR volume 4. SIRS Tachypnea likely 2/2 COPD and leukocytosis likely 2/2 chronic steroid use Plan: monitor vitals 5. Chronic HFpEF / Moderate Pulm HTN Clincally she is euvolemic Plan: furosemide 6. EDGARD - own CPAP 7. NIDDM - f/u accuchecks, A1C / hypoglycemia protocol, SSI 8. Chronic HTN - diltiazem 9. Anxiety, depression - bupropion 10. Glaucoma - brimonidine,pilocarpine 11. Obesity with BMI of 46.5 and co-existing DM complicates care. DVT PROPHYLAXIS: n/a on rivaroxaban DISPOSITION: home after more than 2 midnight's stay Home Medications Scheduled Bimatoprost (Lumigan) 50 Drop/2.5 Ml Farrah, 1 DROP OU QHS Brimonidine Tartrate (Alphagan P) 100 Drop/5 Ml Soln, 1 DROP OU BID Bupropion Hcl (Bupropion Xl) 150 Mg Tab, 150 MG PO QHS Citalopram Hydrobromide (Celexa) 40 Mg Tab, 40 MG PO QHS Diltiazem HCl (Diltiazem HCl) 60 Mg Tab, 60 MG PO QHS Fluticasone Propion/Salmeterol (Advair Hfa 230-21 Mcg Inhaler) 1 Aer Aer, 2 PUFF INH BID Furosemide (Furosemide) 40 Mg Tablet, 40 MG PO BID Pilocarpine HCl (Pilocarpine HCl 4% Opth Farrah) 4 % Farrah, 1 DROP OU BID Potassium Chloride (Potassium Chloride) 20 Meq Tablet.er, 20 MEQ PO DAILY Prednisone (Prednisone) 5 Mg Tablet, 5 MG PO DAILY Rivaroxaban (Xarelto) 20 Mg Tablet, 20 MG PO DAILY Scheduled PRN Albuterol Sulfate (Proair Hfa) 108 Mcg/Act Aer, 2 PUFF INH Q4H PRN for SOB/WHEEZING Carbamide Peroxide (Debrox) 6.5 % Farrah, 5 DROP AU BID PRN for SYMPTOM RELIEF Fluticasone Propionate (Flonase Allergy Relief) 9.9 Ml [place].susp, 2 SPRAY NA DAILY PRN for ALLERGIES Ipratropium/Albuterol Sulfate (Iprat-Albut 0.5-3(2.5) mg/3 ml) 1 Farrah Farrah, 1 FARRAH INH QID PRN for SHORTNESS OF BREATH Lidocaine (Anecream) 4% Cream..g., 1 APLCT TOP DAILY PRN for PAIN APPLY TO AFFECTED AREAS Tramadol HCl (Tramadol HCl) 50 Mg Tablet, 50 MG PO Q6H PRN for PAIN Allergies Coded Allergies: Penicillins (Verified Allergy, Mild, RASH, 10/05/18) Sulfa (Sulfonamide Antibiotics) (Verified Allergy, Mild, RASH, 10/05/18) clindamycin (Verified Allergy, Mild, RASH, 10/05/18) codeine (Verified Allergy, Mild, STOMACH UPSET, RASH, 10/05/18) meperidine (Verified Allergy, Mild, STOMACH UPSET, RASH, 10/05/18) A-FIB/CHADSVASC A-FIB History Current/History of A-Fib/PAF?: No Current PO Anticoag Therapy: No LEONELA LESLIE MD June 27, 2019 22:50
[2019-06-27] MEDS ORDERED: traMADol 50 MG TAB PO PRN (23:00)
[2019-06-27] MEDS ORDERED: FLUTICASONE PROP 0.05% NASAL SPRAY 16 GM (FLONASE) PRN (23:00)
[2019-06-27] MEDS ORDERED: CARBAMIDE PEROXIDE 6.5% OTIC SOLN 15ML AU PRN (23:00)
[2019-06-27] MEDS ORDERED: IPRATROPIUM 0.5MG/ALBUTEROL 2.5MG INH SOL UD 3ML (DUONEB)(J7620) INH PRN (23:00)
[2019-06-27] MEDS ORDERED: LEVALBUTEROL 1.25 MG/0.5 ML CONCENTRATE NEB NEB PRN (23:00)
[2019-06-27] MEDS ORDERED: MAALOX 30 ML SUSP *UDC PO PRN (23:00)
[2019-06-27] MEDS ORDERED: LIDOCAINE 4% CREAM 5GM (LMX4) TOP PRN (23:00)
[2019-06-27] MEDS ORDERED: ACETAMINOPHEN TAB 650MG DOSE (2X325MG) PO PRN (23:00)
[2019-06-27] MEDS ORDERED: MOM 30ML SUSPENSION UDC PO PRN (23:00)
[2019-06-27 23:49] LABS: HEMOGLOBIN A1c 7.1 %
[2019-06-28] VITALS (8 sets, daily range): BP systolic 117–145; BP diastolic 59–79
--- NOTE | 2019-06-28 00:30 | REPVR ---
PROCEDURE INFORMATION: Exam: US Retroperitoneal Complete, Kidneys and Bladder. Exam date and time: 06/27/2019 12:07 AM Age: 78 years old Clinical indication: Abnormal findings; Abnormal lab test; Abnormal kidney function lab tests; Additional info: Juarez. History of left renal cysts. TECHNIQUE: Imaging protocol: Real-time ultrasound of the retroperitoneum with image documentation. Complete exam focused on the kidneys and bladder. COMPARISON: Abdomen, limited US 05/19/2017 1:03 AM FINDINGS: Limitations: Severely limited by body habitus. Patient unable to breath hold. Right kidney: Right kidney measures 11.7 cm. No right hydronephrosis. Normal echogenicity. No gross renal lesions. Left kidney: Left kidney measures 10.2 cm in length. No left hydronephrosis. Normal echogenicity. Hypoechoic cystic lesion in the upper pole of the left kidney measuring 4.1 x 4.0 x 3.7 cm. Cyst in the lower pole of left kidney is not well seen. Bladder: Bladder is partially collapsed decompressed. Bladder is incompletely evaluated because of body habitus. IMPRESSION: 1. Suboptimal evaluation. 2. Unremarkable right kidney. 3. Hypoechoic cystic lesion in the upper pole of the left kidney. Consistent with known cysts. 4. Limited evaluation of the bladder. COMMENTS: Consistent with the [employer]'s Incidental Findings Committee white paper (J Am Morgan Radiol 2018): Any incidental cystic renal lesion classified in this report as too small to characterize or simple appearing is likely a benign cyst. No follow-up imaging is recommended for these lesions per consensus recommendations based on imaging criteria. Electronically signed by: Drew Kam On 06/28/2019 00:30:23 AM
[2019-06-28] MEDS ORDERED: GLUCOSE 4GM CHEW TABLET PO PRN (00:45)
[2019-06-28] MEDS ORDERED: GLUCAGON INJ 1MG VIAL SC PRN (00:45)
[2019-06-28] MEDS ORDERED: DEXTROSE 50% 50 ML SYRINGE IV PRN (00:45)
[2019-06-28] MEDS: CitaloPRAM (CeleXA) 20 MG TAB PO SCH ×2 (01:19→21:39)
[2019-06-28] MEDS: buPROPion **XL** TABLET 150MG (WELLBUTRIN XL) PO SCH ×2 (01:21→21:39)
[2019-06-28] MEDS: PILOCARPINE 4% OPHTH SOLN 15 ML OU SCH ×3 (02:05→21:40)
[2019-06-28] MEDS: BRIMONIDINE 0.1% OPHTH SOLN 5 ML OU SCH ×3 (02:05→21:40)
--- NOTE | 2019-06-28 03:41 | REP ---
Clinical: Cough and dyspnea. Comparison: 05/16/2019. Findings: Examination is limited by portable technique and underpenetration. Mild cardiomegaly is again suggested and stable along with dual lead pacemaker in satisfactory position. Lung bernal demonstrate chronic changes. No obvious focal consolidation, effusion, or pneumothorax. Skeletal structures demonstrate able age-related changes and old right humerus fracture. Impression: Chronic stable changes. Cardiomegaly. No focal consolidation or effusion identified. Electronically Signed by Errol Harkins MD 06/28/2019 03:33 A
[2019-06-28 04:57] LABS: HEMATOCRIT 39.4 % (36.0-47.0); HEMOGLOBIN 12.8 g/dl (12.0-15.5); MEAN CORPUSCULAR HEMOGLOBIN 28.4 pg (27.0-33.0); MEAN CORPUSCULAR HGB CONC 32.5 g/dl (32.0-36.5); MEAN CORPUSCULAR VOLUME 87.6 fl (80.0-96.0); PLATELET COUNT, AUTOMATED 170 10^3/uL (150-450); WHITE BLOOD COUNT 12.5 10^3/uL (4.0-10.0)
[2019-06-28] MEDS: IPRATROPIUM 0.5MG/ALBUTEROL 2.5MG INH SOL UD 3ML (DUONEB)(J7620) NEB SCH ×4 (05:09→19:27)
[2019-06-28 05:32] LABS: BLOOD UREA NITROGEN 25 MG/DL (7-18); CALCIUM LEVEL 9.4 MG/DL (8.8-10.2); CARBON DIOXIDE LEVEL 33 MEQ/L (21-32); CHLORIDE LEVEL 97 MEQ/L (98-107); CREATININE FOR GFR 1.19 MG/DL (0.55-1.30); GLOMERULAR FILTRATION RATE 46.8 (>39); GLUCOSE, FASTING 186 MG/DL (70-100); MAGNESIUM LEVEL 2.1 MG/DL (1.8-2.4); POTASSIUM SERUM 2.9 MEQ/L (3.5-5.1); SODIUM LEVEL 140 MEQ/L (136-145); TROPONIN I < 0.02 NG/ML (< 0.10)
[2019-06-28] MEDS ORDERED: POTASSIUM CHLORIDE 10 MEQ SR TABLET PO SCH ×2 (05:45→09:00)
[2019-06-28] MEDS ORDERED: KCL 10MEQ/100ML SWI (KRUN) 10 MEQ in IV 1 EA IV ONE (05:45)
[2019-06-28 08:43] LABS: HEMATOCRIT 41.9 % (36.0-47.0); HEMOGLOBIN 13.6 g/dl (12.0-15.5); MEAN CORPUSCULAR HEMOGLOBIN 28.5 pg (27.0-33.0); MEAN CORPUSCULAR HGB CONC 32.5 g/dl (32.0-36.5); MEAN CORPUSCULAR VOLUME 87.7 fl (80.0-96.0); PLATELET COUNT, AUTOMATED 184 10^3/uL (150-450); RED BLOOD COUNT 4.78 10^6/uL (4.00-5.40); WHITE BLOOD COUNT 13.7 10^3/uL (4.0-10.0)
[2019-06-28] MEDS ORDERED: predniSONE 5 MG TAB PO SCH (09:00)
[2019-06-28] MEDS ORDERED: ASPIRIN 81 MG CHEW TABLET PO SCH (09:00)
[2019-06-28] MEDS: PANTOPRAZOLE 40MG TAB (PROTONIX) PO SCH (09:06)
[2019-06-28] MEDS: FUROSEMIDE 40 MG TAB PO SCH (09:06)
[2019-06-28] MEDS: RIVAROXABAN 20 MG TAB (XARELTO) PO SCH (09:06)
[2019-06-28] MEDS: predniSONE 20 MG TAB PO SCH (09:07)
[2019-06-28] MEDS: HumaLOG INSULIN (NovoLOG) PER UNIT SC SCH ×4 (09:07→20:03)
[2019-06-28 09:09] LABS: ALBUMIN 3.4 GM/DL (3.2-5.2); ALT/SGPT 15 U/L (12-78); BILIRUBIN,TOTAL 1.1 MG/DL (0.2-1.0); BLOOD UREA NITROGEN 24 MG/DL (7-18); CALCIUM LEVEL 9.8 MG/DL (8.8-10.2); CARBON DIOXIDE LEVEL 31 MEQ/L (21-32); CHLORIDE LEVEL 97 MEQ/L (98-107); CREATININE FOR GFR 1.19 MG/DL (0.55-1.30); GLOMERULAR FILTRATION RATE 46.8 (>39); GLUCOSE, FASTING 160 MG/DL (70-100); PHOSPHORUS LEVEL 4.3 MG/DL (2.5-4.9); POTASSIUM SERUM 3.6 MEQ/L (3.5-5.1); SODIUM LEVEL 138 MEQ/L (136-145); TOTAL PROTEIN 6.2 GM/DL (6.4-8.2)
[2019-06-28 11:33] LABS: CALCIUM LEVEL 9.5 MG/DL (8.8-10.2); CREATININE FOR GFR 1.37 MG/DL (0.55-1.30); GLOMERULAR FILTRATION RATE 39.8 (>39); POTASSIUM SERUM 2.9 MEQ/L (3.5-5.1)
[2019-06-28 12:01] LABS: APPEARANCE, URINE HAZY (CLEAR); BACTERIA, URINE AUTO 1+ (NEGATIVE); BILIRUBIN, URINE AUTO NEGATIVE (NEGATIVE); BLOOD, URINE BLOOD NEGATIVE (NEGATIVE); COLOR, URINE YELLOW (YELLOW); GLUCOSE, URINE (UA) AUTO NEGATIVE (NEGATIVE); KETONE, URINE AUTO NEGATIVE (NEGATIVE); LEUKOCYTE ESTERASE, URINE AUTO TRACE (NEGATIVE); NITRITE, URINE AUTO POSITIVE (NEGATIVE); PROTEIN, URINE AUTO NEGATIVE (NEGATIVE); RBC, URINE AUTO 1 /HPF (0-3); SPECIFIC GRAVITY URINE AUTO 1.023 (1.002-1.035); SQUAMOUS EPITHELIAL CELL UR AU 3 /HPF (0-6); UROBILINOGEN, URINE AUTO 0.2 mg/dL (0.0-2.0); WBC, URINE AUTO 14 /HPF (0-3)
--- NOTE | 2019-06-28 12:45 | IPNPDOC ---
Date Seen The patient was seen on 06/28/19. Progress Note SUBJECTIVE: Complains of intermittent palpitations, especially with activity. PT/OT ordered. The patient takes Lasix 80 mg by mouth at home but will only keep on 40 mg by mouth for now while stabilizing her potassium levels. She will receive a total of 60 mEq this afternoon for potassium level of 2.9. Follow up repeat potassium at 1630. She denies chest pain, nausea, vomiting, shortness of breath. OBJECTIVE: VITAL SIGNS: Please see below GEN: well nourished / well developed/ NAD INTEGUMENT: Normal skin turgor, no change in existing lesions, no new lesions HEENT:NCAT CVS: RRR/ NMRG/ radial pulses intact / trace lower extremity edema LUNGS: Clear to auscultation bilaterally no wheezing rhonchi rales ABDOMEN: obese abdomen / no masses or lesions / bowel sounds are present / the abdomen is tympanic on percussion, soft & not tender with palpation MSK/EXTREMITIES: range of motion intact in all 4 extremities / no scoliosis / no kyphosis NEURO: CN 2-12 are grossly intact / speech is not dysarthric PSYCH: alert and oriented to person place and time/ able to understand and follow all commands LABORATORY DATA: Please see below IMAGING: No new imaging MICROBIOLOGY: 06/27/19 Respiratory Virus Panel (PCR) (EMILEE) - Final, Complete 06/27/19 Blood Culture, Received Pending 06/27/19 Blood Culture, Received Pending ASSESSMENT: is a 78 yr old admitted for further evaluation of chest pain and palpitations, hypokalemia. PLAN: 1. Chest pain likely secondary to palpitations- resolved. Troponins negative. Continue with supplementation of potassium, telemetry monitoring. Last echo in 2019 showed grade 2 DD and mod pulm HTN. If palpitations continue consider new echocardiogram. Nitro PRN for chest pain 2. Palpitations likely secondary to hypokalemia, hypomagnesemia. Decrease Lasix dose, supplementing electrolytes PRN. C/w telemetry, frequent labs. 3. Hypokalemia secondary to lasix use. The patient's Lasix was increased to 80 mg by mouth daily from prior dosing. She was on a low-dose potassium at home but this wouldn't have been enough to cover her potassium deficit. She is received over 80 mEq of potassium thus far since admission, she is due to get an additional 20 mEq on top of that this afternoon. Follow up repeat lab 1630. Mon itor closely on telemetry as mentioned above. 4. Mild acute COPD. Stable and improved currently on RA now. C/w prednisone, duonebs. 5. Chronic HFpEF / Moderate Pulm HTN. Decreased lasix dose due to issues above, monitor for signs of fluid overload. Can possibly increase diuretic 06/29/19 when potassium has normalized. Clincally she is currently euvolemic. I also had a probable right C/w furosemide 6. EDGARD - own CPAP 7. NIDDM - f/u accuchecks, A1C / hypoglycemia protocol, SSI now it just if that time his leg is nothing to do 8. Chronic HTN - diltiazem 9. Anxiety, depression - bupropion 10. Glaucoma - brimonidine,pilocarpine 11. Obesity with BMI of 46.5 and co-existing DM complicates care. 12. DVT px. Rivaroxaban DISPOSITION: Currently admitted under inpatient status. Plan is discharge home when medically improved. No VS, I&O, 24H, [facility] Vital Signs/I&O Vital Signs Date Time Temp Pulse Resp B/P (MAP) Pulse Ox O2 Delivery O2 Flow Rate FiO2 06/28/19 12:00 97.6 75 20 145/72 (96) 94 Room Air 06/28/19 00:45 2.0 I&O- Last 24 Hours up to 6 AM 06/28/19 06:00 Intake Total 340 ml Balance 340 ml Laboratory Data 24H LABS Laboratory Tests 2 06/27/19 19:39: Immature Granulocyte % (Auto) 0.9, Neutrophils (%) (Auto) 81.2H, Lymphocytes (%) (Auto) 11.6L, Monocytes (%) (Auto) 5.3H, Eosinophils (%) (Auto) 0.7, Basophils (%) (Auto) 0.3, Neutrophils # (Auto) 12.5H, Lymphocytes # (Auto) 1.8, Monocytes # (Auto) 0.8, Eosinophils # (Auto) 0.1, Basophils # (Auto) 0.0, Nucleated Red Blood Cells % (auto) 0.0, Anion Gap 10, Glomerular Filtration Rate 40.5, Lactic Acid Level 2.6*H, Calcium Level 9.4, Magnesium Level 1.6L, Total Bilirubin 0.8, Direct Bilirubin 0.3H, Aspartate Amino Transf (AST/SGOT) 3L, Alanine Aminotransf erase (ALT/SGPT) 18, Alkaline Phosphatase 63, Total Creatine Kinase 34, Creatine Kinase MB 1.2, Creatine Kinase MB Relative Index 3.53, Troponin I < 0.02, NS-Agc-G-Type Natriuretic Peptide 214, Total Protein 6.0L, Albumin 3.3, Albumin/Globulin Ratio 1.22 06/27/19 20:09: Coronavirus (COVID-19)(PCR) NEGATIVE 06/27/19 23:26: Lactic Acid Level 1.6, Troponin I < 0.02, Estimated Mean Plasma Glucose 157H, Hemoglobin A1c 7.1 06/28/19 01:29: Bedside Glucose (Misc Panel) 178H 06/28/19 04:31: Nucleated Red Blood Cells % (auto) 0.0, Anion Gap 10, Glomerular Filtration Rate 46.8, Calcium Level 9.4, Magnesium Level 2.1, Troponin I < 0.02 06/28/19 08:23: Nucleated Red Blood Cells % (auto) 0.0, Anion Gap 10, Glomerular Filtration Rate 46.8, Calcium Level 9.8, Phosphorus Level 4.3, Total Bilirubin 1.1H, Aspartate Amino Transf (AST/SGOT) < 3L, Alanine Aminotransferase (ALT/SGPT) 15, Alkaline Phosphatase 63, Total Protein 6.2L, Albumin 3.4, Albumin/Globulin Ratio 1.21 06/28/19 10:48: Anion Gap 7L, Glomerular Filtration Rate 39.8, Calcium Level 9.5 06/28/19 11:43: Urine Color YELLOW, Urine Appearance HAZY, Urine pH 6.0, Urine Specific Melba 1.023, Urine Protein NEGATIVE, Urine Glucose (Auto)(UA) NEGATIVE, Urine Ketones (Auto) NEGATIVE, Urine Blood NEGATIVE, Urine Nitrite POSITIVE, Urine Bilirubin NEGATIVE, Urine Urobilinogen 0.2, Urine Leukocyte Esterase (Auto) TRACEH, Urine WBC (Auto) 14H, Urine RBC (Auto) 1, Urine Hyaline Casts (Auto) 0, Urine Bacteria (Auto) 1+H, Urine Squamous Epithelial Cells 3, Urine Sperm (Auto) 06/28/19 11:49: Bedside Glucose (Misc Panel) 252H CBC/BMP Laboratory Tests 06/27/19 19:39 06/28/19 04:31 06/28/19 08:23 06/28/19 10:48 Microbiology Microbiology 06/27/19 Respiratory Virus Panel (PCR) (EMILEE) - Final, Complete 06/27/19 Blood Culture, Received Pending 06/27/19 Blood Culture, Received Pending Current Medications Current Medications Medications (Trade) Dose Ordered Sig/Kirby Route PRN Reason Start Time Stop Time Status Last Admin Dose Admin Acetaminophen (Tylenol Tab) 650 mg Q4H PRN PO PAIN OR FEVER 06/27/19 23:00 Al Hydrox/Mg Hydrox/Simethicone (Mylanta) 30 ml DAILY PRN PO DYSPEPSIA 06/27/19 23:00 Albuterol/ Ipratropium (Duoneb (Ipr 0.5mg/Alb 2.5mg)) 2.5 ml QID PRN INH SHORTNESS OF BREATH 06/27/19 23:00 06/28/19 00:10 DC Albuterol/ Ipratropium (Duoneb (Ipr 0.5mg/Alb 2.5mg)) 3 ml RQ6H NEB 06/28/19 02:00 06/28/19 08:02 Aspirin (Aspirin Chewable) 81 mg DAILY PO 06/28/19 09:00 06/28/19 00:26 DC Brimonidine Tartrate (Alphagan P 0.1%) 1 drop BID OU 06/27/19 21:00 06/28/19 09:08 Bupropion HCl (Wellbutrin Xl) 150 mg QHS PO 06/27/19 21:00 06/28/19 01:21 Carbamide Peroxide (Debrox) 5 drop BID PRN AU SYMPTOM RELIEF 06/27/19 23:00 07/01/19 22:59 Citalopram Hydrobromide (CeleXA) 40 mg QHS PO 06/27/19 21:00 06/28/19 01:19 Dextrose (Dextrose 50%) 25 ml ASDIRECTED PRN IV SEE LABEL COMMENTS 06/28/19 00:45 Diltiazem HCl (Cardizem) 60 mg QHS PO 06/27/19 21:00 06/28/19 01:20 Fluticasone Propionate (Flonase 0.05% Nasal Wheeler) 2 spray DAILY PRN NA ALLERGIES 06/27/19 23:00 06/28/19 00:10 DC Furosemide (Lasix) 40 mg DAILY PO 06/28/19 09:00 06/28/19 09:06 Glucagon (Glucagon) 1 mg ASDIRECTED PRN SC SEE LABEL COMMENTS 06/28/19 00:45 Glucose (Glucose) 16 GM ASDIRECTED PRN PO SEE LABEL COMMENTS 06/28/19 00:45 Home Med (Med Rec Complete!) ASDIRECTED XX 06/27/19 20:15 06/27/19 20:15 DC Insulin Human Lispro (HumaLOG INSULIN) See Protocol Table AC SC 06/28/19 07:30 06/28/19 09:07 Insulin Human Lispro (HumaLOG INSULIN) See Protocol Table QHS SC 06/27/19 21:00 Levalbuterol HCl (Xopenex Neb) 0.63 mg Q1HP PRN NEB dyspnea 06/27/19 23:00 Lidocaine HCl (Lmx 4/Anecream) apply to affected areas DAILYPRN PRN TOP PAIN 06/27/19 23:00 Magnesium Hydroxide (Milk Of Magnesia) 30 ml DAILY PRN PO CONSTIPATION 06/27/19 23:00 Nitroglycerin (Nitrostat (1/ 150)) 0.4 mg Q5M PRN SL CHEST PAIN 06/27/19 19:45 06/28/19 01:02 DC 06/27/19 20:11 Pantoprazole Sodium (Protonix) 40 mg DAILY PO 06/28/19 09:00 06/28/19 09:06 Pilocarpine HCl (Isopto Carpine 4% Ophth [place]) 1 drop BID OU 06/27/19 21:00 06/28/19 09:08 Potassium Chloride (Micro-K Extencaps) 20 meq DAILY PO 06/28/19 09:00 06/28/19 00:34 DC Potassium Chloride (Micro-K Extencaps) 40 meq Q8H PO 06/28/19 05:45 06/28/19 12:37 DC 06/28/19 06:03 Prednisone (Deltasone) 5 mg DAILY PO 06/28/19 09:00 06/28/19 00:34 DC Prednisone (Deltasone) 40 mg DAILY PO 06/28/19 09:00 06/28/19 09:07 Rivaroxaban (Xarelto) 20 mg DAILY PO 06/28/19 09:00 06/28/19 09:06 Salmeterol Xinafoate/ Fluticasone (Advair Hfa 230/ 21) 2 puff RBID INH 06/27/19 20:00 06/28/19 00:34 DC Tramadol HCl (Ultram) 50 mg Q6H PRN PO PAIN 06/27/19 23:00 06/28/19 01:20 Allergies Coded Allergies: Penicillins (Verified Allergy, Mild, RASH, 10/05/18) Sulfa (Sulfonamide Antibiotics) (Verified Allergy, Mild, RASH, 10/05/18) clindamycin (Verified Allergy, Mild, RASH, 10/05/18) codeine (Verified Allergy, Mild, STOMACH UPSET, RASH, 10/05/18) meperidine (Verified Allergy, Mild, STOMACH UPSET, RASH, 10/05/18) Denise Molina MD June 28, 2019 12:45
[2019-06-28] MEDS ORDERED: POTASSIUM CHLORIDE 10 MEQ SR TABLET PO ONE ×2 (13:00→15:00)
--- NOTE | 2019-06-28 16:43 | ECGEPIP ---
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
[2019-06-28 17:05] LABS: CREATININE FOR GFR 1.59 MG/DL (0.55-1.30); GLOMERULAR FILTRATION RATE 33.5 (>39); POTASSIUM SERUM 4.1 MEQ/L (3.5-5.1)
[2019-06-28 22:17] LABS: CREATININE FOR GFR 1.58 MG/DL (0.55-1.30); GLOMERULAR FILTRATION RATE 33.8 (>39); POTASSIUM SERUM 4.3 MEQ/L (3.5-5.1)
[2019-06-29] VITALS: BP 126/58
[2019-06-29] MEDS: IPRATROPIUM 0.5MG/ALBUTEROL 2.5MG INH SOL UD 3ML (DUONEB)(J7620) NEB SCH ×3 (02:00→14:00)
[2019-06-29 04:00] VITALS: BP 118/69
[2019-06-29 05:00] LABS: HEMATOCRIT 39.6 % (36.0-47.0); HEMOGLOBIN 12.6 g/dl (12.0-15.5); MEAN CORPUSCULAR HEMOGLOBIN 27.6 pg (27.0-33.0); MEAN CORPUSCULAR HGB CONC 31.8 g/dl (32.0-36.5); MEAN CORPUSCULAR VOLUME 86.8 fl (80.0-96.0); PLATELET COUNT, AUTOMATED 200 10^3/uL (150-450); RED BLOOD COUNT 4.56 10^6/uL (4.00-5.40); WHITE BLOOD COUNT 16.6 10^3/uL (4.0-10.0)
[2019-06-29 05:25] LABS: ALBUMIN 3.2 GM/DL (3.2-5.2); ALT/SGPT 16 U/L (12-78); BILIRUBIN,TOTAL 0.6 MG/DL (0.2-1.0); BLOOD UREA NITROGEN 30 MG/DL (7-18); CALCIUM LEVEL 9.8 MG/DL (8.8-10.2); CARBON DIOXIDE LEVEL 32 MEQ/L (21-32); CHLORIDE LEVEL 100 MEQ/L (98-107); CREATININE FOR GFR 1.37 MG/DL (0.55-1.30); GLOMERULAR FILTRATION RATE 39.8 (>39); GLUCOSE, FASTING 167 MG/DL (70-100); MAGNESIUM LEVEL 1.8 MG/DL (1.8-2.4); POTASSIUM SERUM 3.6 MEQ/L (3.5-5.1); SODIUM LEVEL 139 MEQ/L (136-145); TOTAL PROTEIN 5.7 GM/DL (6.4-8.2)
[2019-06-29 08:00] VITALS: BP 141/65
[2019-06-29] MEDS: FUROSEMIDE 40 MG TAB PO SCH (08:57)
[2019-06-29] MEDS: PANTOPRAZOLE 40MG TAB (PROTONIX) PO SCH (08:57)
[2019-06-29] MEDS: predniSONE 20 MG TAB PO SCH (08:57)
[2019-06-29] MEDS: RIVAROXABAN 20 MG TAB (XARELTO) PO SCH (08:57)
[2019-06-29] MEDS: PILOCARPINE 4% OPHTH SOLN 15 ML OU SCH (08:58)
[2019-06-29] MEDS: BRIMONIDINE 0.1% OPHTH SOLN 5 ML OU SCH (08:58)
[2019-06-29] MEDS: HumaLOG INSULIN (NovoLOG) PER UNIT SC SCH ×2 (08:58→12:05)
[2019-06-29] MEDS ORDERED: POTASSIUM CHLORIDE 10 MEQ SR TABLET PO SCH (09:00)
[2019-06-29] MEDS ORDERED: POTA20TA6 PO (09:50)
[2019-06-29 12:00] VITALS: BP 144/72
--- NOTE | 2019-06-29 13:18 | DS.PDOC ---
Discharge Summary General Date of Admission June 27, 2019 at 22:56 Date of Discharge 06/29/19 Discharge Summary PROCEDURES PERFORMED DURING STAY: None. ADMITTING DIAGNOSES: 1. , Palpitations, hypokalemia, hypomagnesemia. DISCHARGE DIAGNOSES: 1. , Palpitations, hypokalemia, hypomagnesemia, COPD COMPLICATIONS/CHIEF COMPLAINT: Hypokalemia,Hypomagnesemia. HISTORY OF PRESENT ILLNESS: This is a 78 yr old female who presents with complaints of 5/10 mid, non radiating chest pressure that occurred this evening while she was eating dinner, lasted for about 30 min and was associated with palpitations. She had similar chest pressure in the past which resolved on its own. She has also been having palpitations, off and on, and had a loop recorder placed by on Friday. She has COPD and uses nocturnal O2. For over a week she as been feeling short of breath especially when she walks a few feet. As a result she has been using her inhalers more often. She denies having GRAYSON, n/v/f/c, runny nose, sick contacts, leg swelling or feeling like she is retaining water. Per her chest pain resolved with aspirin, nitroglycerin and her shortness of breath improved after receiving steroids, nebs, and supplemental O2.. HOSPITAL COURSE: Chest pain likely secondary to palpitations- resolved. Troponins negative. Continue with supplementation of potassium, telemetry monitoring. Last echo in 2018 showed grade 2 DD and mod pulm HTN. . Nitro PRN for chest pain , patient remained asymptomatic and all her lab work was essentially within normal limits and she was discharged home on her current home medications. Her elevated WBC count was most likely secondary to increased dose of steroids, which she was given for possible exacerbation of COPD: Palpitations most likely secondary to hypokalemia, hypomagnesemia. Electrolytes were supplemented. Her levels are essentially within normal limit, now. She'll be discharged home on increased dose of potassium supplement and she has been a dvised to follow up with her PCP and interface designer in 1 week Regarding her mild COPD she remained asymptomatic with decreased her prednisone to her home dose of 5 mg by mouth daily. Patient will be discharged home on all her current home medications except increase dose of potassium supplement. DISCHARGE MEDICATIONS: Please see below. ALLERGIES: Please see below. PHYSICAL EXAMINATION ON DISCHARGE: VITAL SIGNS: Please see below. GENERAL: Within normal limits HEENT: PERRLA. Extraocular muscles intact NECK: Supple. Negative JVD, negative lymphadenopathy CARDIOVASCULAR EXAMINATION: S1, S2, regular RESPIRATORY EXAMINATION: Clear to A&P ABDOMINAL EXAMINATION: , Soft, nontender, bowel sounds present EXTREMITIES: No clubbing, cyanosis, edema SKIN: Normal NEUROLOGICAL EXAMINATION: . No focal motor sensory deficit PSYCHIATRIC EXAMINATION: Normal LABORATORY DATA: Please see below. IMAGING: Renal ultrasound:1. Suboptimal evaluation. 2. Unremarkable right kidney. 3. Hypoechoic cystic lesion in the upper pole of the left kidney. Consistent with known cysts. 4. Limited evaluation of the bladder. PROGNOSIS: Good ACTIVITY: As tolerated. DIET: As tolerated DISCHARGE PLAN: Discharged back to [facility] DISPOSITION: . Back to assisted-living facility DISCHARGE INSTRUCTIONS: 1. As per discharge instructions. ITEMS TO FOLLOWUP ON ON OUTPATIENT: 1. Follow with your PCP and interface designer in 1 week. DISCHARGE CONDITION: Stable. TIME SPENT ON DISCHARGE: He 25 minutes. Vital Signs/I&Os Vital Signs Date Time Temp Pulse Resp B/P (MAP) Pulse Ox O2 Delivery O2 Flow Rate FiO2 06/29/19 12:00 96.7 72 18 144/72 (96) 96 Room Air 06/28/19 00:45 2.0 I&O- Last 24 Hours up to 6 AM 06/29/19 06:00 Intake Total 880 ml Output Total 2050 ml Balance -1170 ml Laboratory Data Labs 24H Laboratory Tests 2 06/28/19 16:15: Anion Gap 10, Glomerular Filtration Rate 33.5L, Calcium Level 10.0 06/28/19 19:54: Bedside Glucose (Misc Panel) 240H 06/28/19 21:42: Anion Gap 10, Glomerular Filtration Rate 33.8L, Calcium Level 10.0 06/29/19 04:32: Anion Gap 7L, Glomerular Filtration Rate 39.8, Calcium Level 9.8, Nucleated Red Blood Cells % (auto) 0.0, Magnesium Level 1.8, Total Bilirubin 0.6, Aspartate Amino Transf (AST/SGOT) < 3L, Alanine Aminotransferase (ALT/SGPT) 16, Alkaline Phosphatase 63, Total Protein 5.7L, Albumin 3.2, Albumin/Globulin Ratio 1.28 06/29/19 11:57: Bedside Glucose (Misc Panel) 336H CBC/BMP Laboratory Tests 06/28/19 16:15 06/28/19 21:42 06/29/19 04:32 FSBS Laboratory Tests Test 06/28/19 19:54 06/29/19 11:57 Range/Units Bedside Glucose (Misc Panel) 240 336 83-110 MG/DL Microbiology Microbiology 06/27/19 Respiratory Virus Panel (PCR) (EMILEE) - Final, Complete 06/27/19 Blood Culture - Preliminary, Resulted No growth after 24 hours . All specim... 06/27/19 Blood Culture - Preliminary, Resulted No growth after 24 hours . All specim... Discharge Medications Scheduled Bimatoprost (Lumigan) 50 Drop/2.5 Ml Farrah, 1 DROP OU QHS, (Reported) Brimonidine Tartrate (Alphagan P) 100 Drop/5 Ml Soln, 1 DROP OU BID, (Reported) Bupropion Hcl (Bupropion Xl) 150 Mg Tab, 150 MG PO QHS, (Reported) Citalopram Hydrobromide (Celexa) 40 Mg Tab, 40 MG PO QHS, (Reported) Diltiazem HCl (Diltiazem HCl) 60 Mg Tab, 60 MG PO QHS, (Reported) Fluticasone Propion/Salmeterol (Advair Hfa 230-21 Mcg Inhaler) 1 Aer Aer, 2 PUFF INH BID, (Reported) Furosemide (Furosemide) 40 Mg Tablet, 40 MG PO BID, (Reported) Pilocarpine HCl (Pilocarpine HCl 4% Opth Farrah) 4 % Farrah, 1 DROP OU BID, (Reported) Potassium Chloride (Potassium Chloride) 20 Meq Tab.er.prt, 1 TAB PO BID Prednisone (Prednisone) 5 Mg Tablet, 5 MG PO DAILY, (Reported) Rivaroxaban (Xarelto) 20 Mg Tablet, 20 MG PO DAILY, (Reported) Scheduled PRN Albuterol Sulfate (Proair Hfa) 108 Mcg/Act Aer, 2 PUFF INH Q4H PRN for SOB/WHEEZING, (Reported) Carbamide Peroxide (Debrox) 6.5 % Farrah, 5 DROP AU BID PRN for SYMPTOM RELIEF, (Reported) Fluticasone Propionate (Flonase Allergy Relief) 9.9 Ml [place].susp, 2 SPRAY NA DAILY PRN for ALLERGIES, (Reported) Ipratropium/Albuterol Sulfate (Iprat-Albut 0.5-3(2.5) mg/3 ml) 1 Farrah Farrah, 1 FARRAH INH QID PRN for SHORTNESS OF BREATH, (Reported) Lidocaine (Anecream) 4% Cream..g., 1 APLCT TOP DAILY PRN for PAIN, (Reported) APPLY TO AFFECTED AREAS Tramadol HCl (Tramadol HCl) 50 Mg Tablet, 50 MG PO Q6H PRN for PAIN, (Reported) Allergies Coded Allergies: Penicillins (Verified Allergy, Mild, RASH, 10/05/18) Sulfa (Sulfonamide Antibiotics) (Verified Allergy, Mild, RASH, 10/05/18) clindamycin (Verified Allergy, Mild, RASH, 10/05/18) codeine (Verified Allergy, Mild, STOMACH UPSET, RASH, 10/05/18) meperidine (Verified Allergy, Mild, STOMACH UPSET, RASH, 10/05/18) JANES DESHPANDE MD June 29, 2019 13:18
[2019-06-29 14:58] LABS: POTASSIUM URINE 65.1 MEQ/L
[2019-06-30 11:09] LABS: POTASSIUM 24 HOUR URINE 97.6 MEQ/24HR (25-125)
== END 2019-06-29 14:45 | disposition home or self-care (01) | DRG 309 ==
LOC: M ED 18:50 → M ED INP 22:56 → ENRESERV 23:11 → M PCU 06-28 00:57
PROVIDERS: ADMIT Internal Medicine; ATTEND Internal Medicine
DX: R00.2 Palpitations (principal); I50.32 Chronic diastolic (congestive) heart failure; J44.1 Chronic obstructive pulmonary disease with (acute) exacerbation; Z68.42 Body mass index [BMI] 45.0-49.9, adult; I27.20 Pulmonary hypertension, unspecified; G47.33 Obstructive sleep apnea (adult) (pediatric); E11.9 Type 2 diabetes mellitus without complications; I11.0 Hypertensive heart disease with heart failure; E66.9 Obesity, unspecified; I49.5 Sick sinus syndrome; F41.9 Anxiety disorder, unspecified; F32.9 Major depressive disorder, single episode, unspecified; E83.42 Hypomagnesemia; H40.9 Unspecified glaucoma; E87.6 Hypokalemia; Z85.3 Personal history of malignant neoplasm of breast; Z95.0 Presence of cardiac pacemaker; Z87.891 Personal history of nicotine dependence; Z88.0 Allergy status to penicillin; Z88.2 Allergy status to sulfonamides; Z88.1 Allergy status to other antibiotic agents; Z88.5 Allergy status to narcotic agent; Z88.8 Allergy status to other drugs, medicaments and biological substances; Z79.52 Long term (current) use of systemic steroids; Z79.899 Other long term (current) drug therapy

== ENCOUNTER 2019-07-04 00:31 | Emergency (ER) | payer MEDICARE, OTHER ==
[~2019-07-04] VITALS: Ht 157.5 cm; Wt 117.7 kg
[~2019-07-04 00:31] MED LIST changes: +POTA1TAB14 PO; +POTA20TA6 PO
[2019-07-04] MEDS ORDERED: PRED10TA2 (00:55)
[2019-07-04] MEDS ORDERED: METO25TA (00:55)
[2019-07-04 01:31] VITALS: BP 164/69
[2019-07-04 01:32] LABS: BASO % 0.2 % (0.0-1.0); EOS # 0.1 10^3/uL (0.0-0.5); EOS % 0.8 % (0.0-3.0); HEMATOCRIT 38.3 % (36.0-47.0); LYMPH # 1.8 10^3/uL (1.5-5.0); LYMPH % 14.8 % (24.0-44.0); MEAN CORPUSCULAR HGB CONC 31.3 g/dl (32.0-36.5); MEAN CORPUSCULAR VOLUME 89.5 fl (80.0-96.0); MONO # 0.7 10^3/uL (0.0-0.8); MONO % 5.8 % (0.0-5.0); NEUTROPHILS # 9.2 10^3/uL (1.5-8.5); NEUTROPHILS % 76.9 % (36.0-66.0); PLATELET COUNT, AUTOMATED 173 10^3/uL (150-450); RED BLOOD COUNT 4.28 10^6/uL (4.00-5.40)
[2019-07-04 01:50] LABS: ERYTHROCYTE SEDIMENTATION RATE 6 mm/hr (0-30)
[2019-07-04 01:57] LABS: C REACTIVE PROTEIN QUANTITATIV 0.65 MG/DL (0.00-0.30); CALCIUM LEVEL 8.7 MG/DL (8.8-10.2); CREATININE FOR GFR 1.01 MG/DL (0.55-1.30); GLOMERULAR FILTRATION RATE 56.6 (>39); POTASSIUM SERUM 3.9 MEQ/L (3.5-5.1)
--- NOTE | 2019-07-04 02:19 | REPVR ---
PROCEDURE INFORMATION: Exam: US Duplex Left Lower Extremity Veins, Limited Exam date and time: 07/04/2019 2:14 AM Age: 78 years old Clinical indication: Pain; Leg, lower; Left; Additional info: Lle redness tenderness TECHNIQUE: Imaging protocol: Real-time Duplex ultrasound of the Left Lower Extremity with 2-D navarro scale, color Doppler flow and spectral waveform analysis with image documentation. Limited exam focused on the left lower extremity veins. COMPARISON: US Duplex, Ext,LOWER veins,unilat LEFT 05/16/2019 7:01 PM FINDINGS: Veins evaluated include common femoral, saphenofemoral junction, femoral and popliteal Veins appear normally compressible with no intraluminal filling defects. Doppler waveforms and flow directionality are normal. No abnormal focal fluid collections identified. IMPRESSION: No evidence of deep venous thrombosis in the left lower extremity venous system. Electronically signed by: Angelo Lorenz On 07/04/2019 02:19:36 AM
[2019-07-04] MEDS ORDERED: KEFL500C17 PO (02:44)
[2019-07-04] MEDS ORDERED: CEPHALEXIN 500 MG CAP PO ONE (02:45)
== END 2019-07-04 03:11 | disposition home or self-care (01) ==
LOC: M ED 00:31
DX: L03.116 Cellulitis of left lower limb (principal); I50.9 Heart failure, unspecified; E11.9 Type 2 diabetes mellitus without complications; I11.0 Hypertensive heart disease with heart failure; J44.9 Chronic obstructive pulmonary disease, unspecified; K21.9 Gastro-esophageal reflux disease without esophagitis; F41.9 Anxiety disorder, unspecified; F32.9 Major depressive disorder, single episode, unspecified; Z88.0 Allergy status to penicillin; Z88.1 Allergy status to other antibiotic agents; Z88.2 Allergy status to sulfonamides; Z88.5 Allergy status to narcotic agent; Z87.891 Personal history of nicotine dependence; Z95.0 Presence of cardiac pacemaker; Z85.3 Personal history of malignant neoplasm of breast; Z79.899 Other long term (current) drug therapy

== ENCOUNTER 2019-07-06 14:30 | Inpatient (IN) | payer MEDICARE, OTHER ==
[~2019-07-06] VITALS: Ht 157.5 cm; Wt 117.7 kg
[2019-07-06] MEDS: CitaloPRAM (CeleXA) 20 MG TAB PO SCH (09:00)
[2019-07-06] MEDS: buPROPion **XL** TABLET 150MG (WELLBUTRIN XL) PO SCH (09:00)
[2019-07-06] MEDS: predniSONE 5 MG TAB PO SCH (09:00)
[~2019-07-06 14:30] MED LIST changes: +METO25TA; +PRED10TA2
[2019-07-06] MEDS ORDERED: NS 500 ML IV ONE (15:00)
[2019-07-06 15:48] LABS: BASO % 0.3 % (0.0-1.0); EOS # 0.1 10^3/uL (0.0-0.5); EOS % 0.6 % (0.0-3.0); HEMATOCRIT 38.8 % (36.0-47.0); HEMOGLOBIN 12.3 g/dl (12.0-15.5); LYMPH # 1.2 10^3/uL (1.5-5.0); LYMPH % 9.8 % (24.0-44.0); MEAN CORPUSCULAR HEMOGLOBIN 28.3 pg (27.0-33.0); MEAN CORPUSCULAR HGB CONC 31.7 g/dl (32.0-36.5); MEAN CORPUSCULAR VOLUME 89.4 fl (80.0-96.0); MONO # 0.8 10^3/uL (0.0-0.8); MONO % 6.1 % (0.0-5.0); NEUTROPHILS # 10.1 10^3/uL (1.5-8.5); NEUTROPHILS % 81.7 % (36.0-66.0); PLATELET COUNT, AUTOMATED 151 10^3/uL (150-450); RED BLOOD COUNT 4.34 10^6/uL (4.00-5.40); WHITE BLOOD COUNT 12.4 10^3/uL (4.0-10.0)
[2019-07-06 16:03] LABS: INR 1.85; PROTHROMBIN TIME 21.1 SECONDS (11.8-14.0)
[2019-07-06 16:04] LABS: PARTIAL THROMBOPLASTIN TIME 33.2 SECONDS (25.0-38.4)
[2019-07-06 16:10] LABS: ERYTHROCYTE SEDIMENTATION RATE 23 mm/hr (0-30)
[2019-07-06 16:20] LABS: ALBUMIN 3.1 GM/DL (3.2-5.2); BILIRUBIN,DIRECT 0.3 MG/DL (0.0-0.2); BILIRUBIN,TOTAL 0.7 MG/DL (0.2-1.0); C REACTIVE PROTEIN QUANTITATIV 6.1 MG/DL (0.00-0.30); CALCIUM LEVEL 8.6 MG/DL (8.8-10.2); CREATININE FOR GFR 1.08 MG/DL (0.55-1.30); GLOMERULAR FILTRATION RATE 52.4 (>39); POTASSIUM SERUM 4.3 MEQ/L (3.5-5.1); TOTAL PROTEIN 5.5 GM/DL (6.4-8.2)
[2019-07-06] MEDS ORDERED: CEFTAROLINE FOSAMIL 600 MG in D5W MINI-BAG PLUS 50 ML IV ONE (16:45)
[2019-07-06] MEDS ORDERED: CEPH500C PO (17:17)
[2019-07-06] MEDS ORDERED: ACET25TA12 PO (17:17)
[2019-07-06] MEDS ORDERED: TIZA4TAB4 PO (17:17)
[2019-07-06] MEDS ORDERED: POTA1TAB14 PO (17:17)
[2019-07-06] MEDS ORDERED: FURO20TA2 PO (17:17)
--- NOTE | 2019-07-06 17:35 | HPEPDOC ---
General Date of Admission Date of Service: July 06, 2019 Chief Complaint The patient is a 78-year-old female admitted with a reason for visit of Cellulitis. Source: Patient Exam Limitations: No limitations Timing/Duration: Day(s) Severity: Moderate Associated Symptoms: Shortness of breath, Weakness History of Present Illness Patient 78 years old female with past history of COPD, CHF, sick sinus syndrome with dual-chamber pacemaker, anxiety and depression presented to the hospital wi th increased left leg erythema. Patient stated that she has been treated with Keflex due to left distal leg cellulitis, however yesterday she started noticing that erythema increased up to her knee and she started feeling chills. In the ER patient was found to have left distal leg erythema from the ankle to the knee, leukocytes count of 12.4, lactic acid 2.1. Patient received 1 dose of ceftaroline IV in ER. Also patient stated that she has increased dyspnea and orthopnea. Doppler ultrasound was done on 07/04 19 and did not show deep venous thrombosis in the left lower extremity venous system. Home Medications Scheduled Acetaminophen/Diphenhydramine (Acetaminophen Pm Caplet) 1 Each Tablet, 2 TAB PO QHS, (Reported) Bimatoprost (Lumigan) 50 Drop/2.5 Ml Farrah, 1 DROP OU QHS, (Reported) Brimonidine Tartrate (Alphagan P) 100 Drop/5 Ml Soln, 1 DROP OU BID, (Reported) Bupropion Hcl (Bupropion Xl) 150 Mg Tab, 150 MG PO DAILY, (Reported) Cephalexin (Cephalexin) 500 Mg Capsule, 500 MG PO QID, (Reported) FOR 7 DAYS, FILLED 07/03 Citalopram Hydrobromide (Celexa) 40 Mg Tab, 40 MG PO DAILY, (Reported) Diltiazem HCl (Diltiazem HCl) 60 Mg Tab, 60 MG PO QHS, (Reported) Fluticasone Propion/Salmeterol (Advair Hfa 230-21 Mcg Inhaler) 1 Aer Aer, 2 PUFF INH BID, (Reported) Furosemide (Furosemide) 20 Mg Tablet, 20 MG PO BID, (Reported) Pilocarpine HCl (Pilocarpine HCl 4% Opth Farrah) 4 % Farrah, 1 DROP OU BID, (Reported) Potassium Chloride (Potassium Chloride) 20 Meq Tablet.er, 20 MEQ PO BID, (Reported) Prednisone (Prednisone) 5 Mg Tablet, 5 MG PO DAILY, (Reported) Rivaroxaban (Xarelto) 20 Mg Tablet, 20 MG PO DAILY, (Reported) Scheduled PRN Albuterol Sulfate (Proair Hfa) 108 Mcg/Act Aer, 2 PUFF INH Q4H PRN for SOB/WHEEZING, (Reported) Fluticasone Propionate (Flonase Allergy Relief) 9.9 Ml Maxie.susp, 2 SPRAY NA DAILY PRN for ALLERGIES, (Reported) Ipratropium/Albuterol Sulfate (Iprat-Albut 0.5-3(2.5) mg/3 ml) 1 Farrah Farrah, 1 FARRAH INH QID PRN for SHORTNESS OF BREATH, (Reported) Tizanidine HCl (Tizanidine HCl) 4 Mg Tablet, 4 MG PO TID PRN for MUSCLE SPASMS, (Reported) Allergies Coded Allergies: Penicillins (Verified Allergy, Mild, RASH, 10/05/18) Sulfa (Sulfonamide Antibiotics) (Verified Allergy, Mild, RASH, 10/05/18) clindamycin (Verified Allergy, Mild, RASH, 10/05/18) codeine (Verified Allergy, Mild, STOMACH UPSET, RASH, 10/05/18) meperidine (Verified Allergy, Mild, STOMACH UPSET, RASH, 10/05/18) Past Medical History Medical History COPD Mod Pulm HTN Hx A flutter s/p ablation EDGARD NIDDM Chronic HTN Chronic grade 2 diastolic CHF Sick sinus syndrome with dual-chamber pacemaker Anxiety / Depression glaucoma Breast cancer with left partial mastectomy of the breast Appendectomy Hysterectomy Surgical History Breast cancer with left partial mastectomy of the breast Appendectomy Hysterectomy dual-chamber pacemaker Family History Colon Cancer [place] Social History * Smoker: former Smoker Alcohol: Denies Drugs: denies A-FIB/CHADSVASC A-FIB History Current/History of A-Fib/PAF?: No Current PO Anticoag Therapy: No Review of Systems Constitutional: Reports: Chills, Weakness; Denies: Fever Eyes: Denies: Pain ENT: Denies: Head Aches, Ear Pain Skin: Denies: Rash, Lesions Pulmonary: Reports: Dyspnea Physical Examination General Exam: Positive: Alert, Cooperative Eye Exam: Positive: PERRLA ENT Exam: Positive: Atraumatic Neck Exam: Positive: Supple, JVD Chest Exam: Positive: Rales, Rhonchi Heart Exam: Positive: Rate Normal Telemetry: Positive: Sinus Abdomen Exam: Positive: Normal bowel sounds Extremity Exam: Positive: Clubbing; Negative: Cyanosis Skin Exam: Positive: Rash (left distal leg erythema) Neuro Exam: Positive: Strength at 5/5 X4 ext, Cranial Nerves 3-12 NL Psych Exam: Positive: Mental status NL Vital Signs Vital Signs Date Time Temp Pulse Resp B/P (MAP) Pulse Ox O2 Delivery O2 Flow Rate FiO2 07/06/19 14:46 07/06/19 14:30 97.6 82 22 96 Room Air Laboratory Data Labs 24H Laboratory Tests 2 07/06/19 15:31: Immature Granulocyte % (Auto) 1.5, Neutrophils (%) (Auto) 81.7H, Lymphocytes (%) (Auto) 9.8L, Monocytes (%) (Auto) 6.1H, Eosinophils (%) (Auto) 0.6, Basophils (%) (Auto) 0.3, Neutrophils # (Auto) 10.1H, Lymphocytes # (Auto) 1.2L, Monocytes # (Auto) 0.8, Eosinophils # (Auto) 0.1, Basophils # (Auto) 0.0, Nucleated Red Blood Cells % (auto) 0.0, Erythrocyte Sedimentation Rate 23, Prothrombin Time 21.1H, Prothromb Time International Ratio 1.85, Activated Partial Thromboplast Time 33.2, Anion Gap 6L, Glomerular Filtration Rate 52.4, Lactic Acid Level 2.1*H, Calcium Level 8.6L, Total Bilirubin 0.7, Direct Bilirubin 0.3H, Aspartate Amino Transf (AST/SGOT) 7, Alanine Aminotransferase (ALT/SGPT) 17, Alkaline Phosphatase 54, C-Reactive Protein, Quantitative 6.10H, Total Protein 5.5L, A lbumin 3.1L, Albumin/Globulin Ratio 1.3 CBC/BMP Laboratory Tests 07/06/19 15:31 Microbiology Microbiology 07/06/19 Blood Culture, Received Pending 07/06/19 Blood Culture, Received Pending Assessment/Plan Patient 78 years old female with past history of COPD, CHF, sick sinus syndrome with dual-chamber pacemaker, anxiety and depression presented to the hospital with increased left leg erythema. Patient stated that she has been treated with Keflex due to left distal leg cellulitis, however yesterday she started noticing that erythema increased up to her knee and she started feeling chills. In the ER patient was found to have left distal leg erythema from the ankle to the knee, leukocytes count of 12.4, lactic acid 2.1. Patient received 1 dose of ceftaroline IV in ER. Also patient stated that she has increased dyspnea and orthopnea. Problems (1) Sepsis Status: Acute Problem Text: Secondary to left leg cellulitis Blood culture Patient failed treatment with Keflex Ceftaroline IV MRSA screen I will hold IV fluid due to CHF exacerbation. Patient stated that she didn't take her morning medications (2) Cellulitis of leg, left Status: Acute Problem Text: left leg elevation See above (3) EDGARD (obstructive sleep apnea) Status: Chronic Problem Text: CPAP at night (4) Obesity Status: Chronic Problem Text: Complicating care (5) CHF exacerbation Status: Acute Problem Text: Patient is diastolic CHF She complains of dyspnea and orthopnea Lasix 40 mg IV twice a day I's and O's Cardiac diet (6) COPD (chronic obstructive pulmonary disease) Status: Chronic Problem Text: Not in acute exacerbation Continue home inhalers (7) Diabetes Status: Chronic Problem Text: Insulin sliding scale Diabetes diet Plan / VTE VTE Prophylaxis Ordered?: Yes LIZZ ÁLVAREZ DO July 06, 2019 17:35
[2019-07-06] MEDS ORDERED: DEXTROSE 50% 50 ML SYRINGE IV PRN (17:45)
[2019-07-06] MEDS ORDERED: GLUCOSE 4GM CHEW TABLET PO PRN (17:45)
[2019-07-06] MEDS ORDERED: FLUTICASONE PROP 0.05% NASAL SPRAY 16 GM (FLONASE) PRN (17:45)
[2019-07-06] MEDS ORDERED: IPRATROPIUM 0.5MG/ALBUTEROL 2.5MG INH SOL UD 3ML (DUONEB)(J7620) INH PRN (17:45)
[2019-07-06] MEDS ORDERED: ALBUTEROL 90 MCG/ACT 8GM HFA INHALER INH PRN (17:45)
[2019-07-06] MEDS ORDERED: GLUCAGON INJ 1MG VIAL SC PRN (17:45)
[2019-07-06 18:10] VITALS: BP 132/65
[2019-07-06] MEDS: RIVAROXABAN 20 MG TAB (XARELTO) PO SCH (18:50)
[2019-07-06] MEDS: HumaLOG INSULIN (NovoLOG) PER UNIT SC SCH ×2 (18:51→20:43)
[2019-07-06] MEDS: ADVAIR HFA 230/21MCG INHALER INH SCH (20:20)
[2019-07-06] MEDS ORDERED: IBUPROFEN 600 MG TAB PO PRN (20:30)
[2019-07-06] MEDS: FUROSEMIDE 40MG/4ML VIAL (J1940) IV SCH (20:52)
[2019-07-06] MEDS: POTASSIUM CHLORIDE 10 MEQ SR TABLET PO SCH (20:53)
[2019-07-06] MEDS: BRIMONIDINE 0.1% OPHTH SOLN 5 ML OU SCH (20:53)
[2019-07-06] MEDS ORDERED: HEPARIN SOD (PORCINE) 5000UNITS/ML VIAL (J1644 PER 1000UNITS) SC SCH (21:00)
[2019-07-06 22:00] VITALS: BP 134/64
[2019-07-06] MEDS ORDERED: diphenhydrAMINE 25MG CAP PO PRN (23:30)
[2019-07-06] MEDS: ACETAMINOPHEN TAB 650MG DOSE (2X325MG) PO PRN (23:45)
[2019-07-07 04:28] LABS: HEMATOCRIT 35.5 % (36.0-47.0); HEMOGLOBIN 11.2 g/dl (12.0-15.5); MEAN CORPUSCULAR HGB CONC 31.5 g/dl (32.0-36.5); MEAN CORPUSCULAR VOLUME 88.8 fl (80.0-96.0); PLATELET COUNT, AUTOMATED 134 10^3/uL (150-450); WHITE BLOOD COUNT 8.6 10^3/uL (4.0-10.0)
[2019-07-07 04:59] LABS: CALCIUM LEVEL 8.6 MG/DL (8.8-10.2); CREATININE FOR GFR 1.28 MG/DL (0.55-1.30); POTASSIUM SERUM 3.9 MEQ/L (3.5-5.1)
[2019-07-07 06:00] VITALS: BP 130/71
[2019-07-07] MEDS: FUROSEMIDE 40MG/4ML VIAL (J1940) IV SCH ×2 (06:47→19:39)
[2019-07-07] MEDS: CEFTAROLINE FOSAMIL 600 MG in D5W MINI-BAG PLUS 50 ML IV SCH ×2 (06:47→17:56)
[2019-07-07] MEDS: ADVAIR HFA 230/21MCG INHALER INH SCH ×2 (07:21→19:24)
[2019-07-07] MEDS: predniSONE 5 MG TAB PO SCH (08:10)
[2019-07-07] MEDS: CitaloPRAM (CeleXA) 20 MG TAB PO SCH (08:10)
[2019-07-07] MEDS: POTASSIUM CHLORIDE 10 MEQ SR TABLET PO SCH ×2 (08:11→21:47)
[2019-07-07] MEDS: buPROPion **XL** TABLET 150MG (WELLBUTRIN XL) PO SCH (08:11)
[2019-07-07] MEDS: BRIMONIDINE 0.1% OPHTH SOLN 5 ML OU SCH ×2 (08:12→21:48)
[2019-07-07] MEDS: HumaLOG INSULIN (NovoLOG) PER UNIT SC SCH ×4 (08:12→21:00)
[2019-07-07] MEDS ORDERED: ONDANSETRON 4 MG TAB PO PRN (09:30)
[2019-07-07] MEDS ORDERED: PILL CUTTER 1 EACH XX PRN (09:45)
[2019-07-07] MEDS: ONDANSETRON 4 MG TAB PO PRN (09:51)
--- NOTE | 2019-07-07 13:23 | IPNPDOC ---
Text Note Date of Service The patient was seen on 07/07/19. NOTE Subjective: No any acute events overnight. Patient denies fever, chills, nausea, vomiting, diarrhea or dysuria. Distal left leg erythema improved today. Objective: VITAL SIGNS: Please see below. GENERAL: awake, alert, NAD, morbidly obese HEENT: NCAT, anicteric sclera, YENI NECK: supple, +JVD CARDIOVASCULAR EXAMINATION: S1S2, regular rate/rhythm RESPIRATORY EXAMINATION: Diminished lung sounds bilaterally ABDOMINAL EXAMINATION: positive bowel sounds x 4, NT EXTREMITIES: +2 left leg pitting edema NEUROLOGICAL EXAMINATION: AAO x 3, no motor/sensory deficits Assessment/Plan Patient 78 years old female with past history of COPD, CHF, sick sinus syndrome with dual-chamber pacemaker, anxiety and depression presented to the hospital with increased left leg erythema. Patient stated that she has been treated with Keflex due to left distal leg cellulitis, however yesterday she started noticing that erythema increased up to her knee and she started feeling chills. In the ER patient was found to have left distal leg erythema from the ankle to the knee, leukocytes count of 12.4, lactic acid 2.1. Patient received 1 dose of ceftaroline IV in ER. Also patient stated that she has increased dyspnea and orthopnea. Problems (1) Sepsis Secondary to left leg cellulitis Blood culture pending Patient failed treatment with Keflex Ceftaroline IV MRSA screen (2) Cellulitis of leg, left left leg elevation See above (3) EDGARD (obstructive sleep apnea) CPAP at night (4) Obesity Complicating care (5) CHF exacerbation Patient is diastolic CHF She complains of dyspnea and orthopnea Lasix 40 mg IV twice a day I's and O's Cardiac diet (6) COPD (chronic obstructive pulmonary disease) Not in acute exacerbation Continue home inhalers (7) Diabetes Insulin sliding scale Diabetes diet VS,Fishbone, I+O VS, Fishbone, I+O Laboratory Tests 07/06/19 15:31 07/07/19 04:16 Vital Signs Date Time Temp Pulse Resp B/P (MAP) Pulse Ox O2 Delivery O2 Flow Rate FiO2 07/07/19 06:00 97.7 78 18 130/71 (90) 98 Room Air I&O- Last 24 Hours up to 6 AM 07/07/19 06:00 Intake Total 1440 ml Output Total 1750 ml Balance -310 ml LIZZ ÁLVAREZ DO July 07, 2019 13:23
[2019-07-07 14:00] VITALS: BP_SYST 134; BP_SYST 155; BP_DIAS 68; BP_DIAS 69
[2019-07-07] MEDS: ACETAMINOPHEN TAB 650MG DOSE (2X325MG) PO PRN (16:06)
[2019-07-07] MEDS: RIVAROXABAN 20 MG TAB (XARELTO) PO SCH (17:56)
[2019-07-07] MEDS: tiZANidine 4 MG TAB PO PRN (21:49)
[2019-07-07 22:00] VITALS: BP 117/59
[2019-07-08] MEDS: ACETAMINOPHEN TAB 650MG DOSE (2X325MG) PO PRN ×2 (02:06→20:56)
[2019-07-08] MEDS: CEFTAROLINE FOSAMIL 600 MG in D5W MINI-BAG PLUS 50 ML IV SCH ×2 (05:59→17:51)
[2019-07-08 06:00] VITALS: BP 102/58
[2019-07-08] MEDS: FUROSEMIDE 40MG/4ML VIAL (J1940) IV SCH ×2 (06:01→16:28)
[2019-07-08] MEDS: tiZANidine 4 MG TAB PO PRN ×2 (06:34→17:53)
[2019-07-08] MEDS: ADVAIR HFA 230/21MCG INHALER INH SCH ×2 (07:18→19:35)
[2019-07-08] MEDS: BRIMONIDINE 0.1% OPHTH SOLN 5 ML OU SCH ×2 (08:07→20:59)
[2019-07-08] MEDS: buPROPion **XL** TABLET 150MG (WELLBUTRIN XL) PO SCH (08:07)
[2019-07-08] MEDS: HumaLOG INSULIN (NovoLOG) PER UNIT SC SCH ×4 (08:07→20:49)
[2019-07-08] MEDS: predniSONE 5 MG TAB PO SCH (08:07)
[2019-07-08] MEDS: POTASSIUM CHLORIDE 10 MEQ SR TABLET PO SCH ×2 (08:07→20:59)
[2019-07-08] MEDS: CitaloPRAM (CeleXA) 20 MG TAB PO SCH (08:07)
[2019-07-08 08:41] LABS: BASO # 0.1 10^3/uL (0.0-0.2); BASO % 0.5 % (0.0-1.0); EOS # 0.2 10^3/uL (0.0-0.5); EOS % 1.7 % (0.0-3.0); HEMATOCRIT 33.9 % (36.0-47.0); LYMPH # 1.6 10^3/uL (1.5-5.0); LYMPH % 15.7 % (24.0-44.0); MEAN CORPUSCULAR HEMOGLOBIN 28.9 pg (27.0-33.0); MEAN CORPUSCULAR HGB CONC 32.4 g/dl (32.0-36.5); MEAN CORPUSCULAR VOLUME 89.2 fl (80.0-96.0); MONO # 0.8 10^3/uL (0.0-0.8); NEUTROPHILS # 7.6 10^3/uL (1.5-8.5); NEUTROPHILS % 72.8 % (36.0-66.0); PLATELET COUNT, AUTOMATED 154 10^3/uL (150-450); WHITE BLOOD COUNT 10.4 10^3/uL (4.0-10.0)
[2019-07-08 09:11] LABS: CALCIUM LEVEL 8.4 MG/DL (8.8-10.2); CREATININE FOR GFR 1.39 MG/DL (0.55-1.30); GLOMERULAR FILTRATION RATE 39.1 (>39); MAGNESIUM LEVEL 1.8 MG/DL (1.8-2.4); POTASSIUM SERUM 3.8 MEQ/L (3.5-5.1)
[2019-07-08 14:00] VITALS: BP 102/58
--- NOTE | 2019-07-08 15:38 | IPNPDOC ---
Text Note Date of Service The patient was seen on 07/08/19. NOTE Subjective: No any acute events overnight. Patient denies fever, chills, nausea, vomiting, diarrhea or dysuria. Distal left leg erythema significantly improved today. Objective: VITAL SIGNS: Please see below. GENERAL: awake, alert, NAD, morbidly obese HEENT: NCAT, anicteric sclera, YENI NECK: supple, +JVD CARDIOVASCULAR EXAMINATION: S1S2, regular rate/rhythm RESPIRATORY EXAMINATION: Diminished lung sounds bilaterally ABDOMINAL EXAMINATION: positive bowel sounds x 4, NT EXTREMITIES: +2 left leg pitting edema NEUROLOGICAL EXAMINATION: AAO x 3, no motor/sensory deficits Assessment/Plan Patient 78 years old female with past history of COPD, CHF, sick sinus syndrome with dual-chamber pacemaker, anxiety and depression presented to the hospital with increased left leg erythema. Patient stated that she has been treated with Keflex due to left distal leg cellulitis, however yesterday she started noticing that erythema increased up to her knee and she started feeling chills. In the ER patient was found to have left distal leg erythema from the ankle to the knee, leukocytes count of 12.4, lactic acid 2.1. Patient received 1 dose of ceftaroline IV in ER. Also patient stated that she has increased dyspnea and orthopnea. Problems (1) Sepsis Resolved Secondary to left leg cellulitis Blood culture pending Patient failed treatment with Keflex Continue with Ceftaroline IV MRSA screen (2) Cellulitis of leg, left left leg elevation See above (3) EDGARD (obstructive sleep apnea) CPAP at night (4) Obesity Complicating care (5) CHF exacerbation Patient is diastolic CHF She complains of dyspnea and orthopnea Continue Lasix I's and O's Cardiac diet (6) COPD (chronic obstructive pulmonary disease) Not in acute exacerbation Continue home inhalers (7) Diabetes Insulin sliding scale Diabetes diet VS,Fishbone, I+O VS, Fishbone, I+O Laboratory Tests 07/08/19 08:24 Vital Signs Date Time Temp Pulse Resp B/P (MAP) Pulse Ox O2 Delivery O2 Flow Rate FiO2 07/08/19 14:00 99.2 73 19 102/58 (73) 100 Room Air 07/08/19 06:00 2.0 I&O- Last 24 Hours up to 6 AM 07/08/19 06:00 Intake Total 1500 ml Output Total 1400 ml Balance 100 ml DROZHZHIN,LIZZ DO July 08, 2019 15:38
[2019-07-08] MEDS: RIVAROXABAN 20 MG TAB (XARELTO) PO SCH (17:51)
[2019-07-08 22:00] VITALS: BP 103/57
[2019-07-09] MEDS: tiZANidine 4 MG TAB PO PRN ×2 (00:17→20:22)
[2019-07-09] MEDS: traMADol 50 MG TAB PO PRN ×2 (03:15→16:07)
[2019-07-09 06:00] VITALS: BP 105/54
[2019-07-09] MEDS: CEFTAROLINE FOSAMIL 600 MG in D5W MINI-BAG PLUS 50 ML IV SCH ×2 (06:06→18:09)
[2019-07-09 06:14] LABS: BASO % 0.4 % (0.0-1.0); EOS # 0.2 10^3/uL (0.0-0.5); EOS % 1.8 % (0.0-3.0); HEMATOCRIT 31.3 % (36.0-47.0); HEMOGLOBIN 9.9 g/dl (12.0-15.5); LYMPH # 1.3 10^3/uL (1.5-5.0); LYMPH % 15.3 % (24.0-44.0); MEAN CORPUSCULAR HEMOGLOBIN 28.2 pg (27.0-33.0); MEAN CORPUSCULAR HGB CONC 31.6 g/dl (32.0-36.5); MEAN CORPUSCULAR VOLUME 89.2 fl (80.0-96.0); MONO # 0.7 10^3/uL (0.0-0.8); MONO % 8.2 % (0.0-5.0); NEUTROPHILS # 6.1 10^3/uL (1.5-8.5); NEUTROPHILS % 72.8 % (36.0-66.0); PLATELET COUNT, AUTOMATED 147 10^3/uL (150-450); RED BLOOD COUNT 3.51 10^6/uL (4.00-5.40); WHITE BLOOD COUNT 8.4 10^3/uL (4.0-10.0)
[2019-07-09] MEDS: ADVAIR HFA 230/21MCG INHALER INH SCH ×2 (07:10→21:29)
[2019-07-09] MEDS ORDERED: MIRALAX *UNIT DOSE* 17GM PACKET PO PRN (08:15)
[2019-07-09] MEDS: CitaloPRAM (CeleXA) 20 MG TAB PO SCH (08:18)
[2019-07-09] MEDS: FUROSEMIDE 40MG/4ML VIAL (J1940) IV SCH ×3 (08:18→16:07)
[2019-07-09] MEDS: HumaLOG INSULIN (NovoLOG) PER UNIT SC SCH ×4 (08:18→21:00)
[2019-07-09] MEDS: buPROPion **XL** TABLET 150MG (WELLBUTRIN XL) PO SCH (08:19)
[2019-07-09] MEDS: predniSONE 5 MG TAB PO SCH (08:19)
[2019-07-09] MEDS: BRIMONIDINE 0.1% OPHTH SOLN 5 ML OU SCH ×2 (08:19→20:21)
[2019-07-09] MEDS: POTASSIUM CHLORIDE 10 MEQ SR TABLET PO SCH ×2 (08:19→20:22)
[2019-07-09] MEDS ORDERED: ISOVUE-370 76% 100ML VIAL As Ordered ONE (12:03)
--- NOTE | 2019-07-09 13:36 | IPNPDOC ---
Text Note Date of Service The patient was seen on 07/09/19. NOTE Subjective: No any acute events overnight. Patient denies fever, chills, nausea, vomiting, diarrhea or dysuria. Patient continues to complain of left distal leg pain Objective: VITAL SIGNS: Please see below. GENERAL: awake, alert, NAD, morbidly obese HEENT: NCAT, anicteric sclera, YENI NECK: supple, +JVD CARDIOVASCULAR EXAMINATION: S1S2, regular rate/rhythm RESPIRATORY EXAMINATION: Diminished lung sounds bilaterally ABDOMINAL EXAMINATION: positive bowel sounds x 4, NT EXTREMITIES: +2 left leg pitting edema NEUROLOGICAL EXAMINATION: AAO x 3, no motor/sensory deficits Assessment/Plan Patient 78 years old female with past history of COPD, CHF, sick sinus syndrome with dual-chamber pacemaker, anxiety and depression presented to the hospital with increased left leg erythema. Patient stated that she has been treated with Keflex due to left distal leg cellulitis, however yesterday she started noticing that erythema increased up to her knee and she started feeling chills. In the ER patient was found to have left distal leg erythema from the ankle to the knee, leukocytes count of 12.4, lactic acid 2.1. Patient received 1 dose of ceftaroline IV in ER. Also patient stated that she has increased dyspnea and orthopnea. Problems (1) Sepsis Resolved Secondary to left leg cellulitis Blood culture negative Patient failed treatment with Keflex Continue with Ceftaroline IV MRSA screen Dr. Hunt recommended CT of left leg (2) Cellulitis of leg, left left leg elevation See above (3) EDGARD (obstructive sleep apnea) CPAP at night (4) Obesity Complicating care (5) CHF exacerbation Patient has diastolic CHF Patient stated that her dyspnea improved after diuresis Continue Lasix I's and O's Cardiac diet (6) COPD (chronic obstructive pulmonary disease) Not in acute exacerbation Continue home inhalers (7) Diabetes Insulin sliding scale Diabetes diet VS,Fishbone, I+O VS, Fishbone, I+O Laboratory Tests 07/09/19 05:29 Vital Signs Date Time Temp Pulse Resp B/P (MAP) Pulse Ox O2 Delivery O2 Flow Rate FiO2 07/09/19 06:00 96.9 74 18 105/54 (71) 98 Nasal Cannula 2.0 I&O- Last 24 Hours up to 6 AM 07/09/19 06:00 Intake Total 1470 ml Balance 1470 ml LIZZ ÁLVAREZ DO July 09, 2019 13:36
--- NOTE | 2019-07-09 13:46 | REP ---
REASON: Cellulitis. COMPARISON: 10/08/2018 Contrast administered: 100 mL Isovue 370. The prior exam is a noncontrast enhanced exam. There is diffuse increased density seen an in a patchy presentation throughout the subcutanea and deep subcutanea with some evidence of thickening of the skin medially, anteriorly, laterally. This is seen throughout the imaged portion of the left lower extremity and when compared to the prior exam, it has not changed significantly, however, the prior exam is a noncontrast-enhanced exam. No focal soft tissue abnormalities have developed. There are no air fluid levels present. There is no gross knee joint or ankle joint effusion. There is no significant change in the appearance of the imaged osseous structures. There has been previous ORIF at the ankle, status quo. There is no acute fracture. IMPRESSION: Soft tissue swelling and edema as described above. There is no discernible abscess. Other findings and chronic changes as described above. Electronically Signed by Guilherme Streeter DO 07/09/2019 02:04 P
[2019-07-09 14:00] VITALS: BP 136/67
[2019-07-09 14:27] LABS: C REACTIVE PROTEIN QUANTITATIV 7.06 MG/DL (0.00-0.30); CALCIUM LEVEL 8.8 MG/DL (8.8-10.2); CREATININE FOR GFR 1.19 MG/DL (0.55-1.30); GLOMERULAR FILTRATION RATE 46.8 (>39); POTASSIUM SERUM 4.1 MEQ/L (3.5-5.1)
[2019-07-09] MEDS: RIVAROXABAN 20 MG TAB (XARELTO) PO SCH (18:10)
[2019-07-09] MEDS: NYSTATIN 100,000 UNITS/GM TOPICAL PWD 15 GM TOP SCH (20:21)
[2019-07-09 22:00] VITALS: BP 148/86
[2019-07-10] MEDS: tiZANidine 4 MG TAB PO PRN ×2 (03:54→17:20)
[2019-07-10] MEDS: CEFTAROLINE FOSAMIL 600 MG in D5W MINI-BAG PLUS 50 ML IV SCH (05:29)
[2019-07-10 06:00] VITALS: BP 118/78
[2019-07-10 06:44] LABS: BASO # 0.1 10^3/uL (0.0-0.2); BASO % 0.5 % (0.0-1.0); EOS # 0.1 10^3/uL (0.0-0.5); EOS % 1.3 % (0.0-3.0); HEMATOCRIT 31.5 % (36.0-47.0); LYMPH # 1.6 10^3/uL (1.5-5.0); LYMPH % 15.7 % (24.0-44.0); MEAN CORPUSCULAR HEMOGLOBIN 28.4 pg (27.0-33.0); MEAN CORPUSCULAR HGB CONC 31.7 g/dl (32.0-36.5); MEAN CORPUSCULAR VOLUME 89.5 fl (80.0-96.0); MONO # 0.8 10^3/uL (0.0-0.8); MONO % 7.9 % (0.0-5.0); NEUTROPHILS # 7.3 10^3/uL (1.5-8.5); NEUTROPHILS % 72.9 % (36.0-66.0); PLATELET COUNT, AUTOMATED 162 10^3/uL (150-450); RED BLOOD COUNT 3.52 10^6/uL (4.00-5.40)
[2019-07-10 06:56] LABS: C REACTIVE PROTEIN QUANTITATIV 7.27 MG/DL (0.00-0.30); MAGNESIUM LEVEL 1.9 MG/DL (1.8-2.4)
[2019-07-10] MEDS: ADVAIR HFA 230/21MCG INHALER INH SCH ×2 (07:42→18:13)
[2019-07-10] MEDS: buPROPion **XL** TABLET 150MG (WELLBUTRIN XL) PO SCH (08:18)
[2019-07-10] MEDS: HumaLOG INSULIN (NovoLOG) PER UNIT SC SCH ×4 (08:18→20:24)
[2019-07-10] MEDS: FUROSEMIDE 40MG/4ML VIAL (J1940) IV SCH ×3 (08:18→17:20)
[2019-07-10] MEDS: POTASSIUM CHLORIDE 10 MEQ SR TABLET PO SCH ×2 (08:18→20:24)
[2019-07-10] MEDS: BRIMONIDINE 0.1% OPHTH SOLN 5 ML OU SCH ×2 (08:19→20:25)
[2019-07-10] MEDS: NYSTATIN 100,000 UNITS/GM TOPICAL PWD 15 GM TOP SCH ×2 (08:19→20:25)
[2019-07-10] MEDS: CitaloPRAM (CeleXA) 20 MG TAB PO SCH (08:19)
[2019-07-10] MEDS: predniSONE 5 MG TAB PO SCH (08:19)
--- NOTE | 2019-07-10 08:30 | CR ---
DATE OF CONSULTATION: 07/09/2019 I was asked to consult by Dr. Cohen for evaluation of recurrent left lower extremity cellulitis that failed to respond to outpatient cephalexin and currently on IV Ceftaroline with slow improvement. HISTORY OF PRESENT ILLNESS: Mrs. Stokes is a 78-year-old morbidly obese female with a history of ankle fracture a couple years ago with open reduction internal fixation. The patient presented to the emergency room with complaint of left lower extremity cellulitis and redness. She was given Keflex without any improvement. She took that for 48 hours. She came back with worsening pain, swelling and redness. She was started on IV Ceftaroline on 07/06/2019, currently day #3. Her temperature was 100.5 on admission. She has been afebrile for the past 48 hours. Her white count was 12.4, today was 8.4, but the redness and swelling are about the same as well as the pain continues. She denies any nausea, vomiting, diarrhea, or abdominal pain. She has a history of advanced chronic obstructive pulmonary disease (COPD) and has some baseline shortness of breath. On review of the [facility] chart, the patient had four episodes of cellulitis in the past year in August, September, April and June. She has no previous history of methicillin-resistant Staphylococcus aureus (MRSA) infection. No abscesses. Ultrasound of the lower extremity showed no evidence of deep vein thrombosis (DVT). PAST MEDICAL HISTORY: Significant for COPD with moderate pulmonary hypertension, history of atrial flutter status post ablation, obstructive sleep apnea, non-insulin dependent diabetes, hypertension, grade 2 diastolic congestive heart failure, sick sinus syndrome with dual pacemaker, anxiety, depression, glaucoma, breast cancer with left partial mastectomy, history of colon cancer and myocardial infarction. PAST SURGICAL HISTORY: Appendectomy, hysterectomy, pacemaker insertion. ALLERGIES: - PENICILLIN - SULFA - CLINDAMYCIN - CODEINE - MEPERIDINE SOCIAL HISTORY: She quit smoking. Denies alcohol use or drug use. She worked at [facility] [employer] [employer] for many years, retired due to COPD and advanced age. 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 MEDICATIONS: - MiraLax 1 packet as needed daily - tramadol 50 mg by mouth every 8 hours as needed - furosemide 40 mg IV every 8 hours - Zofran 2 mg by mouth every 4 hours as needed - Ceftaroline 600 mg IV every 12 hours, currently day #3, she has received total of five doses - Tylenol as needed - insulin sliding scale - potassium chloride 20 mEq by mouth twice a day - Advair 2 puffs inhaled twice a day - Xarelto 20 mg daily - albuterol inhaler every 4 hours as needed - Zanaflex 4 mg by mouth three times a day as needed - bupropion 150 mg by mouth daily - citalopram 40 mg by mouth daily - prednisone 5 mg by mouth daily LABORATORY DATA: White count on admission was 12.4. ESR 23. Today, white count 8.4, hemoglobin 9.9, hematocrit 31.3, platelets 147, 73% neutrophils, 15% lymphocytes, 8% monocytes. Sodium 134, potassium 4.1, chloride 101, bicarb 27, BUN 26, creatinine 1.19, glucose 175, calcium 8.8, CRP 7.06. PT 21.1 and PTT 33.2. Glucose had been ranging between 167 and 333. Blood cultures two sets are no growth after 48 hours. IMAGING: Imaging was ordered for further evaluation of the left lower extremity cellulitis, it was done at 11 o'clock today and showed soft tissue swelling and edema with no discernible abscess, chronic changes with open reduction internal fixation, and no knee joint effusion or ankle effusion. This was read by Dr. Guilherme Streeter. PHYSICAL EXAMINATION: Temperature is 96.9, pulse 74, respirations 18, blood pressure 105/54, O2 sat 98% on 2 liters nasal cannula. Obese lady in mild respiratory discomfort and in pain. Heart: Normal S1, S2. No murmurs, rubs or gallops appreciated. Lungs are clear. No wheezes, rales or rhonchi. Abdomen: Morbidly obese, soft, nontender. area with maceration under the abdominal fold, erythema and moisture. Extremities: Below-knee erythema extending all the way to the ankle. Difficulty with range of motion of the left leg, but the patient is able to move her ankle as well as her left knee. There is tenderness to touch along the leg with especially tenderness posteriorly. Right leg has no clubbing, cyanosis or edema. No calf tenderness. Toes: Third toe on the right foot has an ecchymosis. There is no tenia pedis. No open lesions. IMPRESSION: 78-year-old female with a history of open reduction internal fixation of the left leg status post fracture. The screws are in the foot along the first and second metatarsal and in the tib-fib area. According to CT findings, there is no abscess that is discernible with any drainage. The patient had four different episodes of cellulitis in the left lower extremity in the past year, most likely related to lymphedema and hardware. PLAN: Obtain plain x-rays of the left foot and tibia-fibula to make sure there is no evidence of osteomyelitis or loosening of the hardware. The patient may benefit from chronic suppressive therapy, although she may have MSSA or MRSA, but due to comorbidities she is slow to respond, although I would not say she has no response to Ceftaroline, it is slow since her white count and fever have resolved. At this point, I would continue with IV Ceftaroline 600 mg every 12 hours, obtain an x-ray of the ankle and tibia-fibula. Depending on result, may consider orthopedic referral. She may need to go back to [place] where those screws had been placed if she continues to have problems with that leg. Repeat CRP in the morning. If it worsens, then consider switching to IV vancomycin and Zosyn. Elevate the leg and apply Yadiel wrap to decrease edema and for more comfort. As far as abdominal candidiasis, recommend using Nystatin powder in abdominal fold and using dry wipes in the abdominal folds.
[2019-07-10] MEDS: ACETAMINOPHEN TAB 650MG DOSE (2X325MG) PO PRN ×2 (08:36→14:16)
[2019-07-10 09:22] LABS: CALCIUM LEVEL 8.7 MG/DL (8.8-10.2); CREATININE FOR GFR 1.19 MG/DL (0.55-1.30); GLOMERULAR FILTRATION RATE 46.8 (>39)
[2019-07-10] MEDS: traMADol 50 MG TAB PO PRN (09:51)
--- NOTE | 2019-07-10 12:58 | IPNPDOC ---
Text Note Date of Service The patient was seen on 07/10/19. NOTE Subjective: Patient continues to have left leg pain with erythema. Patient de nied fever, chills, nausea, dysuria Objective: VITAL SIGNS: Please see below. GENERAL: awake, alert, NAD, morbidly obese HEENT: NCAT, anicteric sclera, YENI NECK: supple, +JVD CARDIOVASCULAR EXAMINATION: S1S2, regular rate/rhythm RESPIRATORY EXAMINATION: Diminished lung sounds bilaterally ABDOMINAL EXAMINATION: positive bowel sounds x 4, NT EXTREMITIES: +2 left leg pitting edema NEUROLOGICAL EXAMINATION: AAO x 3, no motor/sensory deficits Assessment/Plan Patient 78 years old female with past history of COPD, CHF, sick sinus syndrome with dual-chamber pacemaker, anxiety and depression presented to the hospital with increased left leg erythema. Patient stated that she has been treated with Keflex due to left distal leg cellulitis, however yesterday she started noticing that erythema increased up to her knee and she started feeling chills. In the ER patient was found to have left distal leg erythema from the ankle to the knee, leukocytes count of 12.4, lactic acid 2.1. Patient received 1 dose of ceftaroline IV in ER. Also patient stated that she has increased dyspnea and orthopnea. Problems (1) Sepsis Resolved Secondary to left leg cellulitis. Patient did have multiple episodes of left leg cellulitis. There is concern that hardware could be cause of chronic inflammation will obtain plain x-rays of the left foot and tibia-fibula to make sure there is no evidence of osteomyelitis or loosening of the hardware. Blood culture negative Patient failed treatment with Keflex CT of left leg was negative for abscess Dr. Hunt recommended to change ceftaroline for vancomycin and cefepime (2) Cellulitis of leg, left left leg elevation See above (3) EDGARD (obstructive sleep apnea) CPAP at night (4) Obesity Complicating care (5) CHF exacerbation Patient has diastolic CHF Patient stated that her dyspnea improved after diuresis Continue Lasix I's and O's Cardiac diet (6) COPD (chronic obstructive pulmonary disease) Not in acute exacerbation Continue home inhalers (7) Diabetes Insulin sliding scale Diabetes diet Abdominal candidiasis Nystatin powder VS,Fishbone, I+O VS, Fishbone, I+O Laboratory Tests 07/09/19 13:39 07/10/19 05:29 07/10/19 05:30 Vital Signs Date Time Temp Pulse Resp B/P (MAP) Pulse Ox O2 Delivery O2 Flow Rate FiO2 07/10/19 10:21 22 Room Air 07/10/19 09:51 93 07/10/19 07:19 2.0 07/10/19 06:00 99.0 86 118/78 (91) I&O- Last 24 Hours up to 6 AM 07/10/19 06:00 Intake Total 950 ml Output Total 2150 ml Balance -1200 ml LIZZ ÁLVAREZ DO July 10, 2019 12:58
[2019-07-10] MEDS ORDERED: VANCOMYCIN HCL 1,000 MG, VIAL MATE ADAPTER 1 EACH in D5W 250 ML IV ONE (13:00)
--- NOTE | 2019-07-10 13:53 | PHACANCOPD ---
PHARMACY VANCOMYCIN DOSING Pt Demographics Demographics Patient Age:78 , Weight:117.730 , Gender: female Adjusted Body Weight Date: 07/10/19, Adjusted Body Weight: Kg Events Past 24 Hours Events Past 24 Hours: NO: Dialysis, Diuretic Therapy, Change in CrCl, Fever, Elevation in WBC, Pending Diagnostics, Pending Procedures, Other Vancomycin Vancomycin indication: cellulitis/possible osteo Vancomycin Target Ranges: 15-20 mcg/ml Vancomycin Load Y/N: Yes Load Dose Date Time Vancomycin Load Dose: 1000mg Date: 07/09 Time: ~1330 Vancomycin Dose Date: 07/10/19. Current Vancomycin Dose: [1g IV q18h @18] Intermittent Dosing?: No Labs Labs Item Value Date Time Creatinine 1.39 MG/DL H 07/08/19 0824 Creatinine 1.19 MG/DL 07/09/19 1339 Creatinine 1.19 MG/DL 07/10/19 0530 White Blood Count 10.4 10^3/uL H 07/08/19 0824 White Blood Count 8.4 10^3/uL 07/09/19 0529 White Blood Count 10.0 10^3/uL 07/10/19 0529 Micro Microbiology 07/06/19 Blood Culture - Preliminary, Resulted No Growth after 72 hours. All specime... 07/06/19 Blood Culture - Preliminary, Resulted No Growth after 72 hours. All specime... Creatinine Clearance Date:07/10/19. Creatinine Clearance: [~34 ML/MIN]. Assessment and Plan Maintaining Current Dose?: Yes Reason for dose change: No Dose Change Pharmacist Note Pharmacist Note Date: 07/10/19. Pharmacist note: pt has been switched from ceftaroline to cefepime & vancomycin. Based on prior consults, I have started her on 1g this afternoon followed by 1g IV q18h ~4 hours later. Blood cultures have been NGTD. SCr is about at her baseline. We will continue to monitor and make adjustments as necessary. Nakul Barba Pharm.D. July 10, 2019 13:53
[2019-07-10 14:00] VITALS: BP 123/55
[2019-07-10] MEDS: CEFEPIME HCL 1 GM in D5W MINI-BAG PLUS 50 ML IV SCH (15:29)
[2019-07-10] MEDS: RIVAROXABAN 20 MG TAB (XARELTO) PO SCH (17:20)
[2019-07-10] MEDS: VANCOMYCIN HCL 1,000 MG, VIAL MATE ADAPTER 1 EACH in D5W 250 ML IV SCH (17:30)
[2019-07-10 22:00] VITALS: BP 102/52
[2019-07-11] MEDS: traMADol 50 MG TAB PO PRN ×3 (00:08→16:51)
[2019-07-11] MEDS: CEFEPIME HCL 1 GM in D5W MINI-BAG PLUS 50 ML IV SCH ×2 (04:18→16:41)
[2019-07-11 06:00] VITALS: BP 144/74
[2019-07-11 06:24] LABS: BASO % 0.5 % (0.0-1.0); EOS # 0.2 10^3/uL (0.0-0.5); EOS % 1.8 % (0.0-3.0); HEMATOCRIT 31.3 % (36.0-47.0); HEMOGLOBIN 9.9 g/dl (12.0-15.5); LYMPH # 1.1 10^3/uL (1.5-5.0); LYMPH % 13.1 % (24.0-44.0); MEAN CORPUSCULAR HEMOGLOBIN 28.3 pg (27.0-33.0); MEAN CORPUSCULAR HGB CONC 31.6 g/dl (32.0-36.5); MEAN CORPUSCULAR VOLUME 89.4 fl (80.0-96.0); MONO # 0.6 10^3/uL (0.0-0.8); MONO % 7.2 % (0.0-5.0); NEUTROPHILS # 6.3 10^3/uL (1.5-8.5); NEUTROPHILS % 75.6 % (36.0-66.0); PLATELET COUNT, AUTOMATED 163 10^3/uL (150-450); WHITE BLOOD COUNT 8.3 10^3/uL (4.0-10.0)
[2019-07-11] MEDS: ADVAIR HFA 230/21MCG INHALER INH SCH ×2 (07:27→19:36)
[2019-07-11] MEDS: FUROSEMIDE 40MG/4ML VIAL (J1940) IV SCH ×2 (08:17→16:42)
[2019-07-11] MEDS: HumaLOG INSULIN (NovoLOG) PER UNIT SC SCH ×4 (08:17→21:00)
[2019-07-11] MEDS: predniSONE 5 MG TAB PO SCH (08:18)
[2019-07-11] MEDS: POTASSIUM CHLORIDE 10 MEQ SR TABLET PO SCH ×2 (08:18→21:02)
[2019-07-11] MEDS: CitaloPRAM (CeleXA) 20 MG TAB PO SCH (08:18)
[2019-07-11] MEDS: buPROPion **XL** TABLET 150MG (WELLBUTRIN XL) PO SCH (08:18)
[2019-07-11] MEDS: NYSTATIN 100,000 UNITS/GM TOPICAL PWD 15 GM TOP SCH ×2 (08:19→21:03)
[2019-07-11] MEDS: BRIMONIDINE 0.1% OPHTH SOLN 5 ML OU SCH ×2 (08:20→21:04)
[2019-07-11 10:31] LABS: ALBUMIN 2.6 GM/DL (3.2-5.2); ALT/SGPT 15 U/L (12-78); BILIRUBIN,TOTAL 0.3 MG/DL (0.2-1.0); BLOOD UREA NITROGEN 24 MG/DL (7-18); C REACTIVE PROTEIN QUANTITATIV 6.58 MG/DL (0.00-0.30); CALCIUM LEVEL 8.3 MG/DL (8.8-10.2); CARBON DIOXIDE LEVEL 30 MEQ/L (21-32); CHLORIDE LEVEL 103 MEQ/L (98-107); CREATININE FOR GFR 1.18 MG/DL (0.55-1.30); GLOMERULAR FILTRATION RATE 47.3 (>39); GLUCOSE, FASTING 202 MG/DL (70-100); POTASSIUM SERUM 3.8 MEQ/L (3.5-5.1); SODIUM LEVEL 140 MEQ/L (136-145)
--- NOTE | 2019-07-11 10:50 | IPNPDOC ---
Text Note Date of Service The patient was seen on 07/11/19. NOTE Subjective: Patient continues to have left leg pain with erythema. She states that left leg pain is worsening. Patient denied fever, chills, nausea, dysuria Objective: VITAL SIGNS: Please see below. GENERAL: awake, alert, NAD, morbidly obese HEENT: NCAT, anicteric sclera, YENI NECK: supple, +JVD CARDIOVASCULAR EXAMINATION: S1S2, regular rate/rhythm RESPIRATORY EXAMINATION: Diminished lung sounds bilaterally ABDOMINAL EXAMINATION: positive bowel sounds x 4, NT EXTREMITIES: +2 left leg pitting edema,tender touch NEUROLOGICAL EXAMINATION: AAO x 3, no motor/sensory deficits Assessment/Plan Patient 78 years old female with past history of COPD, CHF, sick sinus syndrome with dual-chamber pacemaker, anxiety and depression presented to the hospital with increased left leg erythema. Patient stated that she has been treated with Keflex due to left distal leg cellulitis, however yesterday she started noticing that erythema increased up to her knee and she started feeling chills. In the ER patient was found to have left distal leg erythema from the ankle to the knee, leukocytes count of 12.4, lactic acid 2.1. Patient received 1 dose of ceftaroline IV in ER. Also patient stated that she has increased dyspnea and orthopnea. Problems (1) Sepsis Resolved Secondary to left leg cellulitis. Patient did have multiple episodes of left leg cellulitis. There is concern that hardware could be cause of chronic inflammation Pending x-rays of the left foot and tibia-fibula to make sure there is no evidence of osteomyelitis or loosening of the hardware. Blood culture negative, will repeat bc today, sedimentation rate, C-reactive protein Patient failed treatment with Keflex CT of left leg was negative for abscess in the outpatient settings Dr. Hunt recommended to change ceftaroline for vancomycin and cefepime (2) Cellulitis of leg, left left leg elevation See above (3) EDGARD (obstructive sleep apnea) CPAP at night (4) Obesity Complicating care (5) CHF exacerbation Patient has diastolic CHF Patient stated that her dyspnea improved after diuresis Continue Lasix I's and O's Cardiac diet (6) COPD (chronic obstructive pulmonary disease) Not in acute exacerbation Continue home inhalers (7) Diabetes Insulin sliding scale Diabetes diet Abdominal candidiasis Nystatin powder VS,Fishbone, I+O VS, Fishbone, I+O Laboratory Tests 07/11/19 05:19 Vital Signs Date Time Temp Pulse Resp B/P (MAP) Pulse Ox O2 Delivery O2 Flow Rate FiO2 07/11/19 08:19 22 Room Air 07/11/19 06:00 98.9 78 144/74 (97) 93 07/10/19 07:19 2.0 I&O- Last 24 Hours up to 6 AM 07/11/19 06:00 Intake Total 2010 ml Output Total 2175 ml Balance -165 ml LIZZ ÁLVAREZ DO July 11, 2019 10:50
[2019-07-11 10:56] LABS: ERYTHROCYTE SEDIMENTATION RATE 56 mm/hr (0-30)
[2019-07-11] MEDS: VANCOMYCIN HCL 1,000 MG, VIAL MATE ADAPTER 1 EACH in D5W 250 ML IV SCH (12:25)
[2019-07-11 14:00] VITALS: BP 142/74
[2019-07-11] MEDS: RIVAROXABAN 20 MG TAB (XARELTO) PO SCH (18:39)
[2019-07-11] MEDS: tiZANidine 4 MG TAB PO PRN (21:19)
[2019-07-11 22:00] VITALS: BP 145/74
[2019-07-12] MEDS: traMADol 50 MG TAB PO PRN ×3 (00:49→18:23)
[2019-07-12] MEDS: CEFEPIME HCL 1 GM in D5W MINI-BAG PLUS 50 ML IV SCH ×2 (04:03→14:51)
[2019-07-12 05:20] LABS: BASO % 0.4 % (0.0-1.0); EOS # 0.2 10^3/uL (0.0-0.5); EOS % 1.9 % (0.0-3.0); HEMATOCRIT 31.3 % (36.0-47.0); HEMOGLOBIN 9.9 g/dl (12.0-15.5); LYMPH # 1.3 10^3/uL (1.5-5.0); LYMPH % 12.8 % (24.0-44.0); MEAN CORPUSCULAR HGB CONC 31.6 g/dl (32.0-36.5); MEAN CORPUSCULAR VOLUME 88.7 fl (80.0-96.0); MONO # 0.7 10^3/uL (0.0-0.8); MONO % 6.5 % (0.0-5.0); NEUTROPHILS # 7.7 10^3/uL (1.5-8.5); NEUTROPHILS % 76.4 % (36.0-66.0); PLATELET COUNT, AUTOMATED 184 10^3/uL (150-450); RED BLOOD COUNT 3.53 10^6/uL (4.00-5.40); WHITE BLOOD COUNT 10.1 10^3/uL (4.0-10.0)
[2019-07-12] MEDS: VANCOMYCIN HCL 1,000 MG, VIAL MATE ADAPTER 1 EACH in D5W 250 ML IV SCH ×2 (05:52→18:24)
[2019-07-12 06:00] VITALS: BP 105/58
[2019-07-12 06:00] LABS: MAGNESIUM LEVEL 2.1 MG/DL (1.8-2.4); VANCOMYCIN LEVEL TROUGH 7.2 UG/ML (10.0-20.0)
--- NOTE | 2019-07-12 06:08 | PHACANCOPD ---
PHARMACY VANCOMYCIN DOSING Pt Demographics Demographics Patient Age:78 , Weight:117.730 , Gender: female Adjusted Body Weight Date: 07/10/19, Adjusted Body Weight: Kg Vancomycin Vancomycin indication: cellulitis/possible osteo Vancomycin Target Ranges: 15-20 mcg/ml Vancomycin Load Y/N: Yes Load Dose Date Time Vancomycin Load Dose: 1000mg Date: 07/09 Time: ~1330 Vancomycin Dose Date: 07/12/19. Current Vancomycin Dose: [1g IV q12h] Intermittent Dosing?: No Labs Labs Item Value Date Time White Blood Count 10.1 10^3/uL H 07/12/19 0508 Glomerular Filtration Rate 47.3 07/11/19 0519 Creatinine 1.18 MG/DL 07/11/19 0519 Blood Urea Nitrogen 24 MG/DL H 07/11/19 0519 Vancomycin Level Trough 7.2 UG/ML L 07/12/19 0508 Vital Signs Label Value Date Time Patient Temperature 99.1 degrees F 07/11/19 2200 Temperature Source Oral 07/11/19 2200 Micro Microbiology 07/11/19 Blood Culture, Received Pending 07/06/19 Blood Culture - Final, Complete NO GROWTH AFTER 5 DAYS 07/06/19 Blood Culture - Final, Complete NO GROWTH AFTER 5 DAYS Creatinine Clearance Date:07/10/19. Creatinine Clearance: [~34 ML/MIN]. Pending Labs Trough 05--25 @1700 Assessment and Plan Maintaining Current Dose?: No Reason for dose change: Trough too low Pharmacist Note Pharmacist Note Date: 07/12/19. Pharmacist note:Trough of 702 is below target range. Dosing increased to 1000mg q12h. Will monitor and make adjustments as needed. FLOERCITA ANGELO PHARMACY July 12, 2019 06:08
[2019-07-12] MEDS: ADVAIR HFA 230/21MCG INHALER INH SCH ×2 (07:23→18:18)
[2019-07-12] MEDS: tiZANidine 4 MG TAB PO PRN ×2 (07:27→14:51)
[2019-07-12] MEDS: BRIMONIDINE 0.1% OPHTH SOLN 5 ML OU SCH ×2 (09:00→21:54)
[2019-07-12] MEDS: FUROSEMIDE 40MG/4ML VIAL (J1940) IV SCH ×2 (10:02→18:22)
[2019-07-12] MEDS: POTASSIUM CHLORIDE 10 MEQ SR TABLET PO SCH ×2 (10:03→21:52)
[2019-07-12] MEDS: CitaloPRAM (CeleXA) 20 MG TAB PO SCH (10:03)
[2019-07-12] MEDS: HumaLOG INSULIN (NovoLOG) PER UNIT SC SCH ×4 (10:03→22:02)
[2019-07-12] MEDS: predniSONE 5 MG TAB PO SCH (10:03)
[2019-07-12] MEDS: NYSTATIN 100,000 UNITS/GM TOPICAL PWD 15 GM TOP SCH ×2 (10:04→21:55)
[2019-07-12] MEDS: buPROPion **XL** TABLET 150MG (WELLBUTRIN XL) PO SCH (10:07)
[2019-07-12] MEDS ORDERED: traMADol 50 MG TAB PO ONE (11:00)
[2019-07-12] MEDS ORDERED: MORPHINE 2 MG/ML 1ML VIAL (J2270) IV ONE (11:15)
[2019-07-12 12:12] LABS: ALBUMIN 2.6 GM/DL (3.2-5.2); BILIRUBIN,TOTAL 0.4 MG/DL (0.2-1.0); C REACTIVE PROTEIN QUANTITATIV 5.21 MG/DL (0.00-0.30); CALCIUM LEVEL 8.5 MG/DL (8.8-10.2); CREATININE FOR GFR 1.07 MG/DL (0.55-1.30); GLOMERULAR FILTRATION RATE 52.9 (>39); POTASSIUM SERUM 4.1 MEQ/L (3.5-5.1); TOTAL PROTEIN 5.3 GM/DL (6.4-8.2)
[2019-07-12 12:23] LABS: ERYTHROCYTE SEDIMENTATION RATE 49 mm/hr (0-30)
[2019-07-12 14:00] VITALS: BP 127/65
--- NOTE | 2019-07-12 14:28 | CR ---
DATE OF CONSULTATION: 07/12/2019 CHIEF COMPLAINT: Left lower extremity cellulitis. HISTORY OF PRESENT ILLNESS: This is a 78-year-old female who underwent open reduction, internal fixation about 5 or 6 years ago over the left ankle. This a bimalleolar fracture. This was fixed by a surgeon in [place]. She has now had approximately four episodes of left ankle and lower extremity cellulitis which has been getting worse over the last year. She started outpatient Keflex about 8 or 9 days ago for 2 days, however, it became worse and 6 days ago she was admitted to the hospital by Dr. Cohen, the hospitalist. She was initially treated with ceftaroline. However, now she has been switched to vancomycin and cefepime. She states that the redness is a little bit better over the last few days but it is still quite painful on her left lower extremity. PAST MEDICAL HISTORY: Chronic obstructive pulmonary disease (COPD). Moderate pulmonary hypertension. Atrial flutter status post ablation. Obstructive sleep apnea (EDGARD) Insulin dependent diabetes mellitus IDDM). Chronic hypertension. Grade 2 diastolic heart failure. Sick sinus syndrome. Dual-chamber pacemaker. Anxiety. Depression. Breast cancer. Left partial mastectomy. Appendectomy. Hysterectomy. MEDICATIONS: - acetaminophen - bimatoprost - brimonidine - bupropion - citalopram - diltiazem - fluticasone - furosemide - pilocarpine - potassium chloride - prednisone - rivaroxaban - scheduled and as needed albuterol - ipratropium/albuterol - tizanidine ALLERGIES: PENICILLINS, SULFA, CLINDAMYCIN, CODEINE, MEPERIDINE. SOCIAL HISTORY: Former smoker. Denies alcohol or drug use. PHYSICAL EXAMINATION: VITAL SIGNS: Blood pressure 105/58, temperature 99.1, pulse rate 71, respiratory rate 18, 97% on room air. She is obese. She is sitting up. She appears comfortable. There is left lower extremity swelling from the knee down. This redness from the proximal two-thirds of her calf down towards the foot and ankle. The incisions are well-healed, free of complication. No obvious fluctuance fluid collections. Slightly diminished sensation throughout the foot. Digits are warm and well perfused. Knee has no obvious effusion. She is able to dorsiflex and plantar flexor her ankle actively and passively without pain. Left lower extremity CT reviewed. This shows soft tissue swelling and edema. There is no discernible abscess. Hardware appears normal. There is a distal fibula locking plate as well as a lag screw. These appear appropriately placed as do the two medial malleolus cancellus screws. ASSESSMENT/PLAN: This 78-year-old female with multiple medical comorbidities slowly resolving ankle cellulitis. I would not recommend hardware removal at this point. It may be possible to do this in the future when her cellulitis has been completely treated. However, she would be at increased risk and this may not in fact help prevent further cellulitis of her left lower extremity. I recommend this as an outpatient with a careful consideration given her risks are fairly high given her obesity and diabetes. I see no obvious reason to perform acute irrigation debridement of anything in the lower extremity, given the fact that there is no obvious abscess or fluid collection here.
--- NOTE | 2019-07-12 15:14 | IPNPDOC ---
Text Note Date of Service The patient was seen on 07/12/19. NOTE Subjective: Patient continues to have left leg pain with erythema. She complains that she is not able to step on the left foot. However, erythema markedly improved. She states that left leg pain is worsening. Patient denied fever, chills, nausea, dysuria Objective: VITAL SIGNS: Please see below. GENERAL: awake, alert, NAD, morbidly obese HEENT: NCAT, anicteric sclera, YENI NECK: supple, +JVD CARDIOVASCULAR EXAMINATION: S1S2, regular rate/rhythm RESPIRATORY EXAMINATION: Diminished lung sounds bilaterally ABDOMINAL EXAMINATION: positive bowel sounds x 4, NT EXTREMITIES: +2 left leg pitting edema,tender touch, dorsum of left foot swollen NEUROLOGICAL EXAMINATION: AAO x 3, no motor/sensory deficits Assessment/Plan Patient 78 years old female with past history of COPD, CHF, sick sinus syndrome with dual-chamber pacemaker, anxiety and depression presented to the hospital with increased left leg erythema. Patient stated that she has been treated with Keflex due to left distal leg cellulitis, however yesterday she started noticing that erythema increased up to her knee and she started feeling chills. In the ER patient was found to have left distal leg erythema from the ankle to the knee, leukocytes count of 12.4, lactic acid 2.1. Patient received 1 dose of ceft aroline IV in ER. Also patient stated that she has increased dyspnea and orthopnea. Problems (1) Sepsis Resolved Secondary to left leg cellulitis. Patient did have multiple episodes of left leg cellulitis. There is concern that hardware could be cause of chronic inflammation Pending x-rays of the left foot and tibia-fibula to make sure there is no evidence of osteomyelitis or loosening of the hardware. Blood culture negative, will repeat bc today, sedimentation rate, C-reactive protein Patient failed treatment with Keflex CT of left leg was negative for abscess in the outpatient settings Dr. Hunt recommended to change ceftaroline for vancomycin and cefepime on 07/12/19 Sedimentation rate improved to 49 from 56, CRP improved to 5.1. Pro- calcitonin 0.11 Appreciate/agree with orthopedic surgeon consult (2) Cellulitis of leg, left left leg elevation See above (3) EDGARD (obstructive sleep apnea) CPAP at night (4) Obesity Complicating care (5) CHF exacerbation Patient has diastolic CHF Patient stated that her dyspnea improved after diuresis Continue Lasix I's and O's Cardiac diet (6) COPD (chronic obstructive pulmonary disease) Not in acute exacerbation Continue home inhalers (7) Diabetes Insulin sliding scale Diabetes diet Abdominal candidiasis Nystatin powder VS,Fishbone, I+O VS, Fishbone, I+O Laboratory Tests 07/12/19 05:08 Vital Signs Date Time Temp Pulse Resp B/P (MAP) Pulse Ox O2 Delivery O2 Flow Rate FiO2 07/12/19 11:16 18 07/12/19 06:00 99.1 71 105/58 (74) 97 Room Air 07/12/19 01:19 2.0 l I&O- Last 24 Hours up to 6 AM 07/12/19 06:00 Intake Total 1400 ml Output Total 1400 ml Balance 0 ml LIZZ ÁLVAREZ DO July 12, 2019 15:14
[2019-07-12] MEDS: RIVAROXABAN 20 MG TAB (XARELTO) PO SCH (18:23)
[2019-07-12 22:00] VITALS: BP 132/57
[2019-07-12] MEDS: MORPHINE 2 MG/ML 1ML VIAL (J2270) IV PRN (22:08)
[2019-07-13] MEDS: traMADol 50 MG TAB PO PRN ×3 (02:27→21:19)
[2019-07-13] MEDS: CEFEPIME HCL 1 GM in D5W MINI-BAG PLUS 50 ML IV SCH ×2 (04:57→16:04)
[2019-07-13 06:00] VITALS: BP 143/70
[2019-07-13] MEDS: tiZANidine 4 MG TAB PO PRN ×2 (06:01→16:02)
[2019-07-13] MEDS: VANCOMYCIN HCL 1,000 MG, VIAL MATE ADAPTER 1 EACH in D5W 250 ML IV SCH ×2 (06:02→17:32)
[2019-07-13 06:42] LABS: BASO # 0.1 10^3/uL (0.0-0.2); BASO % 0.6 % (0.0-1.0); EOS # 0.3 10^3/uL (0.0-0.5); EOS % 1.8 % (0.0-3.0); HEMATOCRIT 33.6 % (36.0-47.0); HEMOGLOBIN 10.6 g/dl (12.0-15.5); LYMPH # 1.6 10^3/uL (1.5-5.0); LYMPH % 11.4 % (24.0-44.0); MEAN CORPUSCULAR HEMOGLOBIN 28.3 pg (27.0-33.0); MEAN CORPUSCULAR HGB CONC 31.5 g/dl (32.0-36.5); MEAN CORPUSCULAR VOLUME 89.8 fl (80.0-96.0); MONO # 0.8 10^3/uL (0.0-0.8); MONO % 6.1 % (0.0-5.0); NEUTROPHILS # 10.7 10^3/uL (1.5-8.5); NEUTROPHILS % 78.3 % (36.0-66.0); PLATELET COUNT, AUTOMATED 188 10^3/uL (150-450); RED BLOOD COUNT 3.74 10^6/uL (4.00-5.40); WHITE BLOOD COUNT 13.7 10^3/uL (4.0-10.0)
[2019-07-13] MEDS: ADVAIR HFA 230/21MCG INHALER INH SCH ×2 (07:17→20:04)
[2019-07-13] MEDS: BRIMONIDINE 0.1% OPHTH SOLN 5 ML OU SCH ×2 (09:00→21:18)
[2019-07-13] MEDS: FUROSEMIDE 40MG/4ML VIAL (J1940) IV SCH ×2 (10:03→16:02)
[2019-07-13] MEDS: CitaloPRAM (CeleXA) 20 MG TAB PO SCH (10:04)
[2019-07-13] MEDS: predniSONE 5 MG TAB PO SCH (10:04)
[2019-07-13] MEDS: POTASSIUM CHLORIDE 10 MEQ SR TABLET PO SCH ×2 (10:04→21:17)
[2019-07-13] MEDS: buPROPion **XL** TABLET 150MG (WELLBUTRIN XL) PO SCH (10:04)
[2019-07-13] MEDS: NYSTATIN 100,000 UNITS/GM TOPICAL PWD 15 GM TOP SCH ×2 (10:04→21:17)
[2019-07-13] MEDS: HumaLOG INSULIN (NovoLOG) PER UNIT SC SCH ×4 (10:05→21:00)
--- NOTE | 2019-07-13 11:45 | REP ---
REASON: Status post ORIF with recurrent cellulitis. Preliminary report was given by Dr. Harkins. There are no pertinent priors for comparison. Internal fixation plate and screws noted secondary to previous ORIF. There does appear to be soft tissue swelling about the ankle region. There is no evidence of an acute fracture or destructive osseous lesion. IMPRESSION: Soft tissue swelling suspected as described above. Electronically Signed by Guilherme Streeter DO 07/13/2019 12:27 P
--- NOTE | 2019-07-13 12:05 | REP ---
REASON: Recurrent cellulitis status post ORIF. Only AP and lateral views were obtained. Preliminary report was given by Dr. Harkins. COMPARISON: 08/30/2018 Once again, there is soft tissue swelling particularly about the ankle region and dorsum of the foot, however, this has decreased compared to the prior exam. Limited AP and lateral view show no air fluid levels. Status post ORIF and chronic changes status quo. Electronically Signed by Guilherme Streeter DO 07/13/2019 12:27 P
--- NOTE | 2019-07-13 14:25 | IPNPDOC ---
Text Note Date of Service The patient was seen on 07/13/19. NOTE Subjective: Patient continues to have left leg pain with erythema with pain. She refused physical therapy due to pain. Patient denied fever, chills, nausea, dysuria Objective: VITAL SIGNS: Please see below. GENERAL: awake, alert, NAD, morbidly obese HEENT: NCAT, anicteric sclera, YENI NECK: supple, +JVD CARDIOVASCULAR EXAMINATION: S1S2, regular rate/rhythm RESPIRATORY EXAMINATION: Diminished lung sounds bilaterally ABDOMINAL EXAMINATION: positive bowel sounds x 4, NT EXTREMITIES: +2 left leg pitting edema,tender touch, dorsum of left foot swollen NEUROLOGICAL EXAMINATION: AAO x 3, no motor/sensory deficits Assessment/Plan Patient 78 years old female with past history of COPD, CHF, sick sinus syndrome with dual-chamber pacemaker, anxiety and depression presented to the hospital with increased left leg erythema. Patient stated that she has been treated with Keflex due to left distal leg cellulitis, however yesterday she started noticing that erythema increased up to her knee and she started feeling chills. In the ER patient was found to have left distal leg erythema from the ankle to the knee, leukocytes count of 12.4, lactic acid 2.1. Patient received 1 dose of ceftaroline IV in ER. Also patient stated that she has increased dyspnea and orthopnea. Problems (1) Sepsis Resolved Secondary to left leg cellulitis. Patient did have multiple episodes of left leg cellulitis. There is concern that hardware could be cause of chronic inflammation Pending x-rays of the left foot and tibia-fibula to make sure there is no evidence of osteomyelitis or loosening of the hardware. Blood culture negative, will repeat bc today, sedimentation rate, C-reactive protein Patient failed treatment with Keflex CT of left leg was negative for abscess in the outpatient settings Dr. Hunt recommended to change ceftaroline for vancomycin and cefepime on 07/12/19 Sedimentation rate improved to 49 from 56, CRP improved to 5.1. Pro- calcitonin 0.[address] Marcos recommended no surgical intervention at this time Doppler ultrasound of left lower extremity ordered (2) Cellulitis of leg, left left leg elevation See above (3) EDGARD (obstructive sleep apnea) CPAP at night (4) Obesity Complicating care (5) CHF exacerbation Patient has diastolic CHF Patient stated that her dyspnea improved after diuresis Continue Lasix I's and O's Cardiac diet (6) COPD (chronic obstructive pulmonary disease) Not in acute exacerbation Continue home inhalers (7) Diabetes Insulin sliding scale Diabetes diet Abdominal candidiasis Nystatin powder VS,Fishbone, I+O VS, Fishbone, I+O Laboratory Tests 07/13/19 06:31 Vital Signs Date Time Temp Pulse Resp B/P (MAP) Pulse Ox O2 Delivery O2 Flow Rate FiO2 07/13/19 11:55 20 07/13/19 06:00 99.2 72 143/70 (94) 95 Nasal Cannula 07/12/19 01:19 2.0 l I&O- Last 24 Hours up to 6 AM 07/13/19 06:00 Intake Total 1120 ml Output Total 1350 ml Balance -230 ml LIZZ ÁLVAREZ DO July 13, 2019 14:25
--- NOTE | 2019-07-13 15:53 | REP ---
Left lower extremity Duplex Doppler venous ultrasound: Real time compression and duplex Doppler interrogation of the left lower extremity deep venous system is performed. The left common femoral, superficial femoral and popliteal veins are fully compressible with transducer pressure and demonstrate normal spontaneous and phasic flow, without evidence of deep venous thrombosis. Impression: No evidence of deep venous thrombosis of the left lower extremity femoral popliteal venous system. Electronically Signed by Ez Campos MD 07/13/2019 03:45 P
[2019-07-13] MEDS: RIVAROXABAN 20 MG TAB (XARELTO) PO SCH (17:32)
[2019-07-13] MEDS ORDERED: ISOVUE-370 76% 100ML VIAL As Ordered ONE (18:38)
--- NOTE | 2019-07-13 18:53 | REPVR ---
PROCEDURE INFORMATION: Exam: CT Left Lower Extremity Without Contrast, Ankle Exam date and time: 07/13/2019 6:29 PM Age: 78 years old Clinical indication: Pain; Lower leg; Left; Additional info: Osteo TECHNIQUE: Imaging protocol: CT of the Left lower extremity without contrast was performed. Exam focused on the ankle. Radiation optimization: All CT scans at this facility use at least one of these dose optimization techniques: automated exposure control; mA and/or kV adjustment per patient size (includes targeted exams where dose is matched to clinical indication); or iterative reconstruction. COMPARISON: No relevant prior studies available. FINDINGS: Dermal edema and subcutaneous edema is present within the lower leg, ankle and foot. No identifiable peripherally enhancing fluid collection to suggest an organized drainable abscess. No subfascial fluid collection. Muscular architecture of the lower leg is maintained in the intrinsic muscles of the foot demonstrate overall normal architecture. Distal fibular fixation plate and medial malleolar screws are present with anatomic alignment. Midfoot fixation hardware is also present limiting the evaluation of the midfoot because of artifact. No abnormal lucency at the interface between hardware and bone No obvious cortical erosion or destructive process to indicate osteomyelitis involving the ankle and foot. Cortical margins appear to be maintained. Joint spaces are maintained relatively well given the patient's age and taking into account the postoperative changes of the left midfoot. IMPRESSION: Soft tissue swelling suggesting cellulitis diffusely. No CT evidence of osteomyelitis, within the imaging limitations of this modality. No evidence of abscess or hardware loosening Electronically signed by: Angelo Lorenz On 07/13/2019 18:53:29 PM
[2019-07-13 22:00] VITALS: BP 121/58
[2019-07-14] MEDS: tiZANidine 4 MG TAB PO PRN (00:36)
[2019-07-14] MEDS: MORPHINE 2 MG/ML 1ML VIAL (J2270) IV PRN ×2 (04:04→16:13)
[2019-07-14] MEDS: CEFEPIME HCL 1 GM in D5W MINI-BAG PLUS 50 ML IV SCH ×2 (04:06→16:13)
[2019-07-14 05:00] LABS: BASO # 0.1 10^3/uL (0.0-0.2); BASO % 0.5 % (0.0-1.0); EOS # 0.2 10^3/uL (0.0-0.5); EOS % 1.9 % (0.0-3.0); HEMATOCRIT 30.3 % (36.0-47.0); HEMOGLOBIN 9.7 g/dl (12.0-15.5); LYMPH # 1.4 10^3/uL (1.5-5.0); LYMPH % 13.1 % (24.0-44.0); MEAN CORPUSCULAR HEMOGLOBIN 28.4 pg (27.0-33.0); MEAN CORPUSCULAR VOLUME 88.9 fl (80.0-96.0); MONO # 0.7 10^3/uL (0.0-0.8); MONO % 6.5 % (0.0-5.0); NEUTROPHILS # 8.4 10^3/uL (1.5-8.5); NEUTROPHILS % 76.3 % (36.0-66.0); PLATELET COUNT, AUTOMATED 179 10^3/uL (150-450); RED BLOOD COUNT 3.41 10^6/uL (4.00-5.40)
[2019-07-14 05:24] LABS: C REACTIVE PROTEIN QUANTITATIV 4.42 MG/DL (0.00-0.30); MAGNESIUM LEVEL 2.2 MG/DL (1.8-2.4); VANCOMYCIN LEVEL TROUGH 20.9 UG/ML (10.0-20.0)
[2019-07-14 05:57] LABS: ERYTHROCYTE SEDIMENTATION RATE 116 mm/hr (0-30)
[2019-07-14 06:00] VITALS: BP 120/60
[2019-07-14 06:31] LABS: CALCIUM LEVEL 8.7 MG/DL (8.8-10.2); CREATININE FOR GFR 1.09 MG/DL (0.55-1.30); GLOMERULAR FILTRATION RATE 51.8 (>39)
[2019-07-14] MEDS: ADVAIR HFA 230/21MCG INHALER INH SCH ×2 (08:20→19:54)
[2019-07-14] MEDS: HumaLOG INSULIN (NovoLOG) PER UNIT SC SCH ×4 (08:48→21:00)
[2019-07-14] MEDS: FUROSEMIDE 40MG/4ML VIAL (J1940) IV SCH ×2 (08:48→17:34)
[2019-07-14] MEDS: CitaloPRAM (CeleXA) 20 MG TAB PO SCH (08:48)
[2019-07-14] MEDS: predniSONE 5 MG TAB PO SCH (08:48)
[2019-07-14] MEDS: buPROPion **XL** TABLET 150MG (WELLBUTRIN XL) PO SCH (08:49)
[2019-07-14] MEDS: POTASSIUM CHLORIDE 10 MEQ SR TABLET PO SCH ×2 (08:49→21:12)
[2019-07-14] MEDS: traMADol 50 MG TAB PO PRN ×2 (08:50→21:16)
[2019-07-14] MEDS: BRIMONIDINE 0.1% OPHTH SOLN 5 ML OU SCH ×2 (08:50→21:16)
[2019-07-14] MEDS: NYSTATIN 100,000 UNITS/GM TOPICAL PWD 15 GM TOP SCH ×2 (08:50→21:17)
--- NOTE | 2019-07-14 10:07 | IPN ---
DATE OF SERVICE: 07/13/2019 Sana is seen in followup for left lower extremity cellulitis. The patient does not feel any better. She has significant lower extremity edema bilaterally, but left is worse than right. Erythema persists. She has been on intravenous (IV) Lasix for the past 3 days. Maximum temperature (Tmax) is 99.2. White count has increased to 13.7 from 10.1. The patient is frustrated due to lack of improvement. Blood cultures on 07/06/2019 two sets were negative and 07/11/2019. Methicillin-resistant Staphylococcus aureus (MRSA) screen was negative. White count 13.7, hemoglobin 10.6, hematocrit 33.6, platelets 188, 78% neutrophil, 11% lymphocytes, 6% monocytes. Sodium 138, potassium 4.1, chloride 102, bicarbonate 32, BUN 23, creatinine 1.07, glucose 176, calcium 8.5, magnesium 2.1, bilirubin 0.4, CRP of 5.21 down from [address]. [address] lower extremity done today at 06:00 p.m. shows no obvious cortical erosion or destructive process, nothing to indicate osteomyelitis. Hardware is in place with good fixation. There is diffuse edema dermal and subcutaneous but no identifiable abscess. The lower extremity vascular ultrasound done earlier today was negative for deep venous thrombosis (DVT). On physical examination, temperature 99.2, pulse 72, respirations 20, blood pressure 143/70, oxygen (O2) saturation 95% on 2 liters nasal cannula. Heart: Normal S1, S2. No murmurs appreciated. Lungs: Diminished breath sounds with a few expiratory rhonchi bilaterally. Abdomen: Morbidly obese, soft, nontender. Extremities: +2 pitting edema on the right side. On the left side +3 with significant redness from the ankle all the way down to the midthigh. There is a severe swelling, tenderness along the calf. There are no open lesions. There is a healed scar of the foot. IMPRESSION: 1. Acute cellulitis of the left leg with history of open reduction/internal fixation with multiple screws in place. The patient on IV cefepime and vancomycin since 07/13/2019 after she had been on ceftaroline from 07/07/2019 to 07/10/2019. She has been on appropriate antibiotics for at least 7 days with minimal improvement in C-reactive protein (CRP) and fever but no improvement clinically. Repeat CT does not show any identifiable abscess to be drained. There is no loosening of the prosthesis, but with her history of recurrent infections at least four times in the past 8 months, makes that concerning. 2. Chronic obstructive pulmonary disease (COPD), oxygen dependent. PLAN: The case has been discussed with Dr. Cohen. Orthopedics has been consulted. Repeat C-reactive protein (CRP) and sedimentation rate in the morning. If white count, CRP, sedimentation rate continue to worsen, re-discuss with orthopedist or possible transfer to tertiary care center for second opinion.
[2019-07-14] MEDS: VANCOMYCIN HCL 1,000 MG, VIAL MATE ADAPTER 1 EACH in D5W 250 ML IV SCH (12:50)
--- NOTE | 2019-07-14 16:42 | IPNPDOC ---
Text Note Date of Service The patient was seen on 07/14/19. NOTE Subjective: Patient continues to have left leg pain with erythema with pain. Patient is very anxious about not to have progress in her cellulitis Patient denied fever, chills, nausea, dysuria Objective: VITAL SIGNS: Please see below. GENERAL: awake, alert, NAD, morbidly obese HEENT: NCAT, anicteric sclera, YENI NECK: supple, +JVD CARDIOVASCULAR EXAMINATION: S1S2, regular rate/rhythm RESPIRATORY EXAMINATION: Diminished lung sounds bilaterally ABDOMINAL EXAMINATION: positive bowel sounds x 4, NT EXTREMITIES: +2 left leg pitting edema,tender touch, dorsum of left foot swollen NEUROLOGICAL EXAMINATION: AAO x 3, no motor/sensory deficits Assessment/Plan Patient 78 years old female with past history of COPD, CHF, sick sinus syndrome with dual-chamber pacemaker, anxiety and depression presented to the hospital with increased left leg erythema. Patient stated that she has been treated with Keflex due to left distal leg cellulitis, however yesterday she started noticing that erythema increased up to her knee and she started feeling chills. In the ER patient was found to have left distal leg erythema from the ankle to the knee, leukocytes count of 12.4, lactic acid 2.1. Patient received 1 dose of ceftaroline IV in ER. Also patient stated that she has increased dyspnea and orthopnea. Problems (1) Sepsis Resolved Secondary to left leg cellulitis. Patient did have multiple episodes of left leg cellulitis. There is concern that hardware could be cause of chronic inflammation Pending x-rays of the left foot and tibia-fibula to make sure there is no evidence of osteomyelitis or loosening of the hardware. Blood culture negative, will repeat bc today, sedimentation rate, C-reactive protein Patient failed treatment with Keflex CT of left leg was negative for abscess in the outpatient settings Dr. Hunt recommended to change ceftaroline for vancomycin and cefepime on 07/12/19 Sedimentation rate improved to 49 from 56, CRP improved to 5.1. Pro- calcitonin 0.[address] Marcos recommended no surgical intervention at this time Doppler ultrasound of left lower extremity negative for DVT CT of left foot was done on 07/13/19 and does not show any identifiable abscess to be drained. There is no loosening of the prosthesis Patient potentially can be transferred to tertiary center for 2d opinion (2) Cellulitis of leg, left left leg elevation See above (3) EDGARD (obstructive sleep apnea) CPAP at night (4) Obesity Complicating care (5) CHF exacerbation Resolved Patient has diastolic CHF Patient stated that her dyspnea improved after diuresis. BNP around 396 Continue Lasix I's and O's Cardiac diet (6) COPD (chronic obstructive pulmonary disease) Not in acute exacerbation Continue home inhalers (7) Diabetes Insulin sliding scale Diabetes diet Abdominal candidiasis Nystatin powder VS,Fishbone, I+O VS, Fishbone, I+O Laboratory Tests 07/14/19 04:49 Vital Signs Date Time Temp Pulse Resp B/P (MAP) Pulse Ox O2 Delivery O2 Flow Rate FiO2 07/14/19 16:34 18 07/14/19 16:13 Room Air 07/14/19 06:00 96.5 73 120/60 (80) 95 07/12/19 01:19 2.0 I&O- Last 24 Hours up to 6 AM 07/14/19 06:00 Intake Total 1260 ml Output Total 2800 ml Balance -1540 ml LIZZ ÁLVAREZ DO July 14, 2019 16:42
[2019-07-14] MEDS: RIVAROXABAN 20 MG TAB (XARELTO) PO SCH (17:34)
[2019-07-14 22:00] VITALS: BP 136/64
[2019-07-15] MEDS: ACETAMINOPHEN TAB 650MG DOSE (2X325MG) PO PRN (00:01)
[2019-07-15] MEDS: CEFEPIME HCL 1 GM in D5W MINI-BAG PLUS 50 ML IV SCH ×3 (04:35→18:24)
[2019-07-15 06:00] VITALS: BP 114/56
[2019-07-15 06:06] LABS: BASO # 0.1 10^3/uL (0.0-0.2); BASO % 0.5 % (0.0-1.0); EOS # 0.2 10^3/uL (0.0-0.5); EOS % 2.3 % (0.0-3.0); HEMATOCRIT 30.2 % (36.0-47.0); HEMOGLOBIN 9.7 g/dl (12.0-15.5); LYMPH # 1.3 10^3/uL (1.5-5.0); LYMPH % 14.5 % (24.0-44.0); MEAN CORPUSCULAR HEMOGLOBIN 28.6 pg (27.0-33.0); MEAN CORPUSCULAR HGB CONC 32.1 g/dl (32.0-36.5); MEAN CORPUSCULAR VOLUME 89.1 fl (80.0-96.0); MONO # 0.7 10^3/uL (0.0-0.8); MONO % 7.2 % (0.0-5.0); NEUTROPHILS # 6.7 10^3/uL (1.5-8.5); NEUTROPHILS % 73.1 % (36.0-66.0); PLATELET COUNT, AUTOMATED 169 10^3/uL (150-450); RED BLOOD COUNT 3.39 10^6/uL (4.00-5.40); WHITE BLOOD COUNT 9.2 10^3/uL (4.0-10.0)
[2019-07-15 06:27] LABS: C REACTIVE PROTEIN QUANTITATIV 3.38 MG/DL (0.00-0.30); MAGNESIUM LEVEL 2.3 MG/DL (1.8-2.4); VANCOMYCIN LEVEL TROUGH 8.8 UG/ML (10.0-20.0)
[2019-07-15] MEDS: VANCOMYCIN HCL 1,000 MG, VIAL MATE ADAPTER 1 EACH in D5W 250 ML IV SCH (06:42)
[2019-07-15 07:20] LABS: ERYTHROCYTE SEDIMENTATION RATE 52 mm/hr (0-30)
[2019-07-15] MEDS: ADVAIR HFA 230/21MCG INHALER INH SCH ×2 (07:49→19:50)
[2019-07-15] MEDS: HumaLOG INSULIN (NovoLOG) PER UNIT SC SCH ×4 (08:26→20:25)
[2019-07-15] MEDS: FUROSEMIDE 40MG/4ML VIAL (J1940) IV SCH ×3 (08:26→18:23)
[2019-07-15] MEDS: CitaloPRAM (CeleXA) 20 MG TAB PO SCH (08:27)
[2019-07-15] MEDS: POTASSIUM CHLORIDE 10 MEQ SR TABLET PO SCH ×2 (08:28→20:28)
[2019-07-15] MEDS: predniSONE 5 MG TAB PO SCH (08:28)
[2019-07-15] MEDS: traMADol 50 MG TAB PO PRN ×2 (08:28→20:43)
[2019-07-15] MEDS: buPROPion **XL** TABLET 150MG (WELLBUTRIN XL) PO SCH (08:28)
[2019-07-15] MEDS: BRIMONIDINE 0.1% OPHTH SOLN 5 ML OU SCH ×2 (08:29→20:29)
[2019-07-15] MEDS: NYSTATIN 100,000 UNITS/GM TOPICAL PWD 15 GM TOP SCH ×2 (08:29→20:30)
--- NOTE | 2019-07-15 12:50 | IPNPDOC ---
Text Note Date of Service The patient was seen on 07/15/19. NOTE Subjective: Patient continues to have left leg pain with erythema. Patient wants to talk to Dr. Hunt about transfer to [facility]. Patient denied fever, chills, nausea, dysuria Objective: VITAL SIGNS: Please see below. GENERAL: awake, alert, NAD, morbidly obese HEENT: NCAT, anicteric sclera, YENI NECK: supple, +JVD CARDIOVASCULAR EXAMINATION: S1S2, regular rate/rhythm RESPIRATORY EXAMINATION: Diminished lung sounds bilaterally ABDOMINAL EXAMINATION: positive bowel sounds x 4, NT EXTREMITIES: +2 left leg pitting edema,tender touch, dorsum of left foot swollen NEUROLOGICAL EXAMINATION: AAO x 3, no motor/sensory deficits Assessment/Plan Patient 78 years old female with past history of COPD, CHF, sick sinus syndrome with dual-chamber pacemaker, anxiety and depression presented to the hospital with increased left leg erythema. Patient stated that she has been treated with Keflex due to left distal leg cellulitis, however yesterday she started noticing that erythema increased up to her knee and she started feeling chills. In the ER patient was found to have left distal leg erythema from the ankle to the knee, leukocytes count of 12.4, lactic acid 2.1. Patient received 1 dose of ceftaroline IV in ER. Also patient stated that she has increased dyspnea and orthopnea. Problems (1) Sepsis Resolved Secondary to left leg cellulitis. Patient did have multiple episodes of left leg cellulitis. There is concern that hardware could be cause of chronic inflammation Pending x-rays of the left foot and tibia-fibula to make sure there is no evidence of osteomyelitis or loosening of the hardware. Blood culture negative, will repeat bc today, sedimentation rate, C-reactive protein Patient failed treatment with Keflex CT of left leg was negative for abscess in the outpatient settings Dr. Hunt recommended to change ceftaroline for vancomycin and cefepime on 07/12/19 Sedimentation rate improved to 49 from 56, CRP improved to 5.1. Pro- calcitonin 0.[address] Marcos recommended no surgical intervention at this time Doppler ultrasound of left lower extremity negative for DVT CT of left foot was done on 07/13/19 and does not show any identifiable abscess to be drained. There is no loosening of the prosthesis Patient potentially can be transferred to tertiary center for 2d opinion On 07/15/19 sedimentation rate went down to 52, CRP 3.58. No clinical imp rovements today. (2) Cellulitis of leg, left left leg elevation See above (3) EDGARD (obstructive sleep apnea) CPAP at night (4) Obesity Complicating care (5) CHF exacerbation Resolved Patient has diastolic CHF Patient stated that her dyspnea improved after diuresis. Continue Lasix I's and O's Cardiac diet (6) COPD (chronic obstructive pulmonary disease) Not in acute exacerbation Continue home inhalers (7) Diabetes Insulin sliding scale Diabetes diet Abdominal candidiasis Nystatin powder VS,Fishbone, I+O VS, Fishbone, I+O Laboratory Tests 07/15/19 05:44 Vital Signs Date Time Temp Pulse Resp B/P (MAP) Pulse Ox O2 Delivery O2 Flow Rate FiO2 07/15/19 08:58 20 Room Air 07/15/19 06:00 96.2 71 114/56 (75) 94 07/12/19 01:19 2.0 I&O- Last 24 Hours up to 6 AM 07/15/19 06:00 Intake Total 1650 ml Output Total 2550 ml Balance -900 ml LIZZ ÁLVAREZ DO July 15, 2019 12:50
[2019-07-15 13:48] LABS: ALBUMIN 2.6 GM/DL (3.2-5.2); BILIRUBIN,TOTAL 0.4 MG/DL (0.2-1.0); CALCIUM LEVEL 8.7 MG/DL (8.8-10.2); CREATININE FOR GFR 1.01 MG/DL (0.55-1.30); GLOMERULAR FILTRATION RATE 56.6 (>39); POTASSIUM SERUM 3.9 MEQ/L (3.5-5.1)
[2019-07-15 14:00] VITALS: BP 120/58
[2019-07-15] MEDS: RIVAROXABAN 20 MG TAB (XARELTO) PO SCH (17:54)
[2019-07-15] MEDS: VANCOMYCIN HCL 750 MG, VIAL MATE ADAPTER 1 EACH in D5W 250 ML IV SCH (18:56)
[2019-07-15 22:00] VITALS: BP 123/59
[2019-07-15] MEDS: tiZANidine 4 MG TAB PO PRN ×2 (23:45)
[2019-07-16] MEDS: CEFEPIME HCL 1 GM in D5W MINI-BAG PLUS 50 ML IV SCH ×2 (03:17→16:33)
[2019-07-16] MEDS: VANCOMYCIN HCL 750 MG, VIAL MATE ADAPTER 1 EACH in D5W 250 ML IV SCH ×2 (05:36→17:35)
[2019-07-16 05:47] LABS: BASO # 0.1 10^3/uL (0.0-0.2); BASO % 0.5 % (0.0-1.0); EOS # 0.2 10^3/uL (0.0-0.5); EOS % 2.4 % (0.0-3.0); HEMATOCRIT 30.9 % (36.0-47.0); HEMOGLOBIN 9.5 g/dl (12.0-15.5); LYMPH # 1.5 10^3/uL (1.5-5.0); MEAN CORPUSCULAR HEMOGLOBIN 27.5 pg (27.0-33.0); MEAN CORPUSCULAR HGB CONC 30.7 g/dl (32.0-36.5); MEAN CORPUSCULAR VOLUME 89.6 fl (80.0-96.0); MONO # 0.7 10^3/uL (0.0-0.8); MONO % 6.8 % (0.0-5.0); NEUTROPHILS # 7.1 10^3/uL (1.5-8.5); PLATELET COUNT, AUTOMATED 179 10^3/uL (150-450); RED BLOOD COUNT 3.45 10^6/uL (4.00-5.40); WHITE BLOOD COUNT 9.7 10^3/uL (4.0-10.0)
[2019-07-16 06:00] VITALS: BP 109/58
[2019-07-16 06:11] LABS: ALBUMIN 2.6 GM/DL (3.2-5.2); BILIRUBIN,TOTAL 0.5 MG/DL (0.2-1.0); CALCIUM LEVEL 8.2 MG/DL (8.8-10.2); CREATININE FOR GFR 1.02 MG/DL (0.55-1.30); GLOMERULAR FILTRATION RATE 55.9 (>39); MAGNESIUM LEVEL 2.2 MG/DL (1.8-2.4); TOTAL PROTEIN 4.9 GM/DL (6.4-8.2)
[2019-07-16] MEDS: ADVAIR HFA 230/21MCG INHALER INH SCH ×2 (07:24→19:41)
[2019-07-16] MEDS: HumaLOG INSULIN (NovoLOG) PER UNIT SC SCH ×4 (07:30→21:00)
[2019-07-16 09:25] LABS: C REACTIVE PROTEIN QUANTITATIV 2.67 MG/DL (0.00-0.30)
[2019-07-16] MEDS: NYSTATIN 100,000 UNITS/GM TOPICAL PWD 15 GM TOP SCH ×2 (09:44→20:56)
[2019-07-16] MEDS: BRIMONIDINE 0.1% OPHTH SOLN 5 ML OU SCH ×2 (09:44→20:57)
[2019-07-16] MEDS: POTASSIUM CHLORIDE 10 MEQ SR TABLET PO SCH ×2 (09:45→20:54)
[2019-07-16] MEDS: CitaloPRAM (CeleXA) 20 MG TAB PO SCH (09:45)
[2019-07-16] MEDS: predniSONE 5 MG TAB PO SCH (09:45)
[2019-07-16] MEDS: buPROPion **XL** TABLET 150MG (WELLBUTRIN XL) PO SCH (09:45)
[2019-07-16] MEDS: FUROSEMIDE 40MG/4ML VIAL (J1940) IV SCH ×2 (09:46→16:34)
[2019-07-16] MEDS: MORPHINE 2 MG/ML 1ML VIAL (J2270) IV PRN (09:47)
[2019-07-16 09:58] LABS: ERYTHROCYTE SEDIMENTATION RATE 43 mm/hr (0-30)
[2019-07-16] MEDS ORDERED: LIDOCAINE 1% MDV 20ML VIAL As Ordered ONE (12:33)
[2019-07-16] MEDS ORDERED: SODIUM CHLORIDE 0.9% INJ 10 ML SYR IV PRN (13:30)
[2019-07-16] MEDS: SODIUM CHLORIDE 0.9% INJ 10 ML SYR IV SCH (13:53)
[2019-07-16 14:00] VITALS: BP 164/74
--- NOTE | 2019-07-16 16:00 | IPNPDOC ---
Text Note Date of Service The patient was seen on 07/16/19. NOTE Subjective: Patient continues to have left leg pain with erythema. I called to transfer line about transfer to [facility], transfer was declined, RAMAN suggested consult by phone with orthopedic surgeon and infectious diseases. The ortho surgeon who did surgery 7 years ago not available today in his office, he will be back on Friday. Patient denied fever, chills, nausea, dysuria Objective: VITAL SIGNS: Please see below. GENERAL: awake, alert, NAD, morbidly obese HEENT: NCAT, anicteric sclera, YENI NECK: supple, +JVD CARDIOVASCULAR EXAMINATION: S1S2, regular rate/rhythm RESPIRATORY EXAMINATION: Diminished lung sounds bilaterally ABDOMINAL EXAMINATION: positive bowel sounds x 4, NT EXTREMITIES: +2 left leg pitting edema,tender touch, dorsum of left foot swollen NEUROLOGICAL EXAMINATION: AAO x 3, no motor/sensory deficits Assessment/Plan Patient 78 years old female with past history of COPD, CHF, sick sinus syndrome with dual-chamber pacemaker, anxiety and depression presented to the hospital with increased left leg erythema. Patient stated that she has been treated with Keflex due to left distal leg cellulitis, however yesterday she started noticing that erythema increased up to her knee and she started feeling chills. In the ER patient was found to have left distal leg erythema from the ankle to the knee, leukocytes count of 12.4, lactic acid 2.1. Patient received 1 dose of ceftaroline IV in ER. Also patient stated that she has increased dyspnea and orthopnea. Problems (1) Sepsis Resolved Secondary to left leg cellulitis. Patient did have multiple episodes of left leg cellulitis. There is concern that hardware could be cause of chronic inflammation Pending x-rays of the left foot and tibia-fibula to make sure there is no evidence of osteomyelitis or loosening of the hardware. Blood culture negative, will repeat bc today, sedimentation rate, C-reactive protein Patient failed treatment with Keflex CT of left leg was negative for abscess in the outpatient settings Dr. Hunt recommended to change ceftaroline for vancomycin and cefepime on 07/12/19 Sedimentation rate improved to 49 from 56, CRP improved to 5.1. Pro- calcitonin 0.[address] Marcos recommended no surgical intervention at this time Doppler ultrasound of left lower extremity negative for DVT CT of left foot was done on 07/13/19 and does not show any identifiable abscess to be drained. There is no loosening of the prosthesis Patient potentially can be transferred to tertiary center for 2d opinion On 07/15/19 sedimentation rate went down to 52, CRP 3.58. No clinical improvements today. On 07/16/19 sedimentation rate 43, C-reactive protein 2.6 (2) Cellulitis of leg, left left leg elevation See above (3) EDGARD (obstructive sleep apnea) CPAP at night (4) Obesity Complicating care (5) CHF exacerbation Resolved Patient has diastolic CHF Patient stated that her dyspnea improved after diuresis. Continue Lasix I's and O's Cardiac diet (6) COPD (chronic obstructive pulmonary disease) Not in acute exacerbation Continue home inhalers (7) Diabetes Insulin sliding scale Diabetes diet Abdominal candidiasis Nystatin powder VS,Fishbone, I+O VS, Fishbone, I+O Laboratory Tests 07/16/19 05:15 Vital Signs Date Time Temp Pulse Resp B/P (MAP) Pulse Ox O2 Delivery O2 Flow Rate FiO2 07/16/19 14:00 98.6 71 15 164/74 (104) 94 Room Air 07/16/19 09:57 2.0 I&O- Last 24 Hours up to 6 AM 07/16/19 06:00 Intake Total 1520 ml Output Total 2150 ml Balance -630 ml LIZZ ÁLVAREZ DO July 16, 2019 16:00
--- NOTE | 2019-07-16 16:00 | REP ---
MIDLINE CATHETER INSERTION WITH SITE REINALDO The procedure was performed under the direct supervision of Dr. Campos. The risks and benefits of the procedure were explained to the patient and informed consent was obtained. The right basilic vein was localized using ultrasound guidance. The skin was prepped and draped in a sterile fashion. 1% lidocaine was used as a local anesthetic. Using ultrasound guidance the basilic vein was cannulated and a 0.018 guidewire was inserted. The needle was removed and a 5.5 Albanian dilator and peel-away sheath was inserted over the guide wire. A 5.5 Albanian dual lumen catheter was left at a length of 16.5 cm. The dilator was removed and the catheter was inserted over the guide wire. The peel-away sheath was removed and the catheter was flushed with heparinized saline as per Hospital protocol. The catheter was affixed to the skin and a sterile dressing was applied. The patient tolerated the procedure well and there were no immediate complications. After the appropriate amount of monitored convalescence the patient was discharged from the department. Electronically Signed by DIPAK Leija 07/16/2019 03:00 P Electronically Signed by Ez Campos MD 07/16/2019 03:51 P
[2019-07-16] MEDS: RIVAROXABAN 20 MG TAB (XARELTO) PO SCH (17:35)
[2019-07-16] MEDS: traMADol 50 MG TAB PO PRN (21:12)
[2019-07-16 22:00] VITALS: BP 138/63
[2019-07-16] MEDS: ONDANSETRON 4 MG TAB PO PRN (22:28)
[2019-07-17] MEDS: CEFEPIME HCL 1 GM in D5W MINI-BAG PLUS 50 ML IV SCH ×2 (05:05→16:34)
[2019-07-17] MEDS: VANCOMYCIN HCL 750 MG, VIAL MATE ADAPTER 1 EACH in D5W 250 ML IV SCH ×2 (05:48→17:22)
[2019-07-17 06:00] VITALS: BP 138/64
[2019-07-17 06:38] LABS: BASO # 0.1 10^3/uL (0.0-0.2); BASO % 0.8 % (0.0-1.0); EOS # 0.3 10^3/uL (0.0-0.5); EOS % 2.4 % (0.0-3.0); HEMATOCRIT 30.6 % (36.0-47.0); HEMOGLOBIN 9.6 g/dl (12.0-15.5); LYMPH # 1.5 10^3/uL (1.5-5.0); LYMPH % 14.2 % (24.0-44.0); MEAN CORPUSCULAR HEMOGLOBIN 28.2 pg (27.0-33.0); MEAN CORPUSCULAR HGB CONC 31.4 g/dl (32.0-36.5); MEAN CORPUSCULAR VOLUME 89.7 fl (80.0-96.0); MONO # 0.7 10^3/uL (0.0-0.8); MONO % 6.7 % (0.0-5.0); NEUTROPHILS # 7.7 10^3/uL (1.5-8.5); NEUTROPHILS % 74.3 % (36.0-66.0); PLATELET COUNT, AUTOMATED 181 10^3/uL (150-450); RED BLOOD COUNT 3.41 10^6/uL (4.00-5.40); WHITE BLOOD COUNT 10.4 10^3/uL (4.0-10.0)
[2019-07-17 06:46] LABS: HEMOGLOBIN A1c 7.7 %
[2019-07-17 06:53] LABS: ALBUMIN 2.4 GM/DL (3.2-5.2); BILIRUBIN,TOTAL 0.4 MG/DL (0.2-1.0); CALCIUM LEVEL 8.5 MG/DL (8.8-10.2); CREATININE FOR GFR 0.96 MG/DL (0.55-1.30); MAGNESIUM LEVEL 2.1 MG/DL (1.8-2.4); POTASSIUM SERUM 4.1 MEQ/L (3.5-5.1); TOTAL PROTEIN 4.9 GM/DL (6.4-8.2)
[2019-07-17] MEDS: ADVAIR HFA 230/21MCG INHALER INH SCH ×2 (08:17→19:42)
[2019-07-17 08:22] LABS: C REACTIVE PROTEIN QUANTITATIV 3.05 MG/DL (0.00-0.30)
[2019-07-17] MEDS: HumaLOG INSULIN (NovoLOG) PER UNIT SC SCH ×4 (08:38→21:13)
[2019-07-17] MEDS: BRIMONIDINE 0.1% OPHTH SOLN 5 ML OU SCH ×2 (08:38→21:13)
[2019-07-17] MEDS: FUROSEMIDE 40MG/4ML VIAL (J1940) IV SCH ×2 (08:38→17:22)
[2019-07-17] MEDS: NYSTATIN 100,000 UNITS/GM TOPICAL PWD 15 GM TOP SCH ×2 (08:39→21:13)
[2019-07-17] MEDS: POTASSIUM CHLORIDE 10 MEQ SR TABLET PO SCH ×2 (08:39→21:12)
[2019-07-17] MEDS: CitaloPRAM (CeleXA) 20 MG TAB PO SCH (08:39)
[2019-07-17] MEDS: predniSONE 5 MG TAB PO SCH (08:39)
[2019-07-17] MEDS: buPROPion **XL** TABLET 150MG (WELLBUTRIN XL) PO SCH (08:39)
--- NOTE | 2019-07-17 11:03 | IPN ---
DATE: 07/15/2019 Mrs. Stokes is getting frustrated because she does not see much improvement in her left foot swelling and pain. She has been here since 07/06/2019. Her white count has definitely improved and it was down to 9.2, hemoglobin 9.7, hematocrit 30.2, platelets 169, ESR 52, which is stable. Sodium 139, potassium 3.9, chloride 101, bicarbonate 33, BUN 24, creatinine 1.01, glucose 187, calcium 8.7, magnesium 2.3, AST 4, ALT 12, alkaline phosphatase 54, CRP 3.38 down from 7.06. Blood cultures negative. MEDICATIONS: Vancomycin 750 mg IV every 12 hours, cefepime 1 gram IV every 12 hours. She has been on that combination since 07/10/2019, day #6. Prior to that, she was ceftaroline. On physical exam, temperature is 97.3, pulse 68, respirations 18, blood pressure 120/58, oxygen saturation (O2 sat) 96% on room air. Temperature on admission was 100.5 but that has resolved within 24 hours. Heart: Normal S1, S2. No murmurs. Lungs: Expiratory wheezes bilaterally. Extremities: +1 edema on the right side, +2 edema on the left side. She has a Coban/Coflex dressing on the left leg all the way to the knee, and therefore, I did not remove it, but she still has some erythema in the upper thigh but it has decreased. She has significant tenderness, especially in the heel area. IMPRESSION: 1. Complicated skin and soft tissue infection of the left leg with soft tissue swelling suggestive of diffuse cellulitis but no osteomyelitis.. It is complicated by the fact that she has significant hardware in the leg with multiple screws and plates from an old fracture. She has persistent pain and inability to walk on that leg. 2. History of recurrent cellulitis of the left leg with four different episodes this year. 3. Chronic obstructive pulmonary disease (COPD) with cor pulmonale with significant lower extremity edema. PLAN: Case has been discussed with the patient and Dr. Cohen regarding possible transfer for second opinion versus discharge and continued antibiotics with a second opinion as an outpatient whether the hardware needs to be removed. My concern is that there is nothing to drain, and I am not sure that orthopedic surgery would be feeling comfortable removing screws in place in the setting of an acute infection. But the concern is that patient clinically does not feel better, edema and pain is not better even though her labs have improved. Continue current antibiotics until tomorrow. We will discuss with Angela for a second opinion, whether inpatient or outpatient, will be decided tomorrow.
--- NOTE | 2019-07-17 12:25 | IPNPDOC ---
Text Note Date of Service The patient was seen on 07/17/19. NOTE Subjective: Patient continues to have left leg pain with erythema. Patient denied fever, chills, nausea, dysuria Objective: VITAL SIGNS: Please see below. GENERAL: awake, alert, NAD, morbidly obese HEENT: NCAT, anicteric sclera, YENI NECK: supple, +JVD CARDIOVASCULAR EXAMINATION: S1S2, regular rate/rhythm RESPIRATORY EXAMINATION: Diminished lung sounds bilaterally ABDOMINAL EXAMINATION: positive bowel sounds x 4, NT EXTREMITIES: +2 left leg pitting edema,tender touch, dorsum of left foot swollen NEUROLOGICAL EXAMINATION: AAO x 3, no motor/sensory deficits Assessment/Plan Patient 78 years old female with past history of COPD, CHF, sick sinus syndrome with dual-chamber pacemaker, anxiety and depression presented to the hospital with increased left leg erythema. Patient stated that she has been treated with Keflex due to left distal leg cellulitis, however yesterday she started noticing that erythema increased up to her knee and she started feeling chills. In the ER patient was found to have left distal leg erythema from the ankle to the knee, leukocytes count of 12.4, lactic acid 2.1. Patient received 1 dose of ceftaroline IV in ER. Also patient stated that she has increased dyspnea and orthopnea. Problems (1) Sepsis Resolved Secondary to left leg cellulitis. Patient did have multiple episodes of left leg cellulitis. There is concern that hardware could be cause of chronic inflammation Pending x-rays of the left foot and tibia-fibula to make sure there is no evidence of osteomyelitis or loosening of the hardware. Blood culture negative, will repeat bc today, sedimentation rate, C-reactive protein Patient failed treatment with Keflex CT of left leg was negative for abscess in the outpatient settings Dr. Hunt recommended to change ceftaroline for vancomycin and cefepime on 07/12/19 Sedimentation rate improved to 49 from 56, CRP improved to 5.1. Pro- calcitonin 0.[address] Marcos recommended no surgical intervention at this time Doppler ultrasound of left lower extremity negative for DVT CT of left foot was done on 07/13/19 and does not show any identifiable abscess to be drained. There is no loosening of the prosthesis Patient potentially can be transferred to tertiary center for 2d opinion. I talked to RAMAN , transfer was declined, they offered ID consult by phone On 07/15/19 sedimentation rate went down to 52, CRP 3.58. No clinical improvements today. On 07/16/19 sedimentation rate 43, C-reactive protein 2.6 ON 07/17/19 CRP 3.05 (2) Cellulitis of leg, left left leg elevation See above (3) EDGARD (obstructive sleep apnea) CPAP at night (4) Obesity Complicating care (5) CHF exacerbation Resolved Patient has diastolic CHF Patient stated that her dyspnea improved after diuresis. Continue Lasix I's and O's Cardiac diet (6) COPD (chronic obstructive pulmonary disease) Not in acute exacerbation Continue home inhalers (7) Diabetes Insulin sliding scale Diabetes diet HbA1c 7.7 indicates fair control of diabetes Abdominal candidiasis Nystatin powder VS,Fishbone, I+O VS, Fishbone, I+O Laboratory Tests 07/17/19 06:02 Vital Signs Date Time Temp Pulse Resp B/P (MAP) Pulse Ox O2 Delivery O2 Flow Rate FiO2 07/17/19 06:00 97.3 78 20 138/64 (88) 93 Nasal Cannula 2.0 I&O- Last 24 Hours up to 6 AM 07/17/19 06:00 Intake Total 1590 ml Output Total 4975 ml Balance -3385 ml LIZZ ÁLVAREZ DO July 17, 2019 12:25
[2019-07-17] MEDS: SODIUM CHLORIDE 0.9% INJ 10 ML SYR IV SCH (12:53)
[2019-07-17 14:00] VITALS: BP 143/63
[2019-07-17 14:15] LABS: ERYTHROCYTE SEDIMENTATION RATE 49 mm/hr (0-30)
--- NOTE | 2019-07-17 16:28 | IPN ---
DATE: 07/16/2019 Mrs. Stokes still complains of significant pain in her left leg. She states that she is not any better compared to when she came in, even though she is afebrile, and her inflammatory markers have improved. She states she still cannot walk independently. She was able to get up to the bathroom and to the elevator but with significant pain. According to nurses, she does not elevate her leg. Temperature is 97, pulse 70, respirations 16, oxygen saturation 92%-95% on room air. Heart: Normal S1, S2. No murmurs. Lungs are clear, diminished at the bases. Abdomen: Morbidly obese, soft, nontender. Left leg with significant edema, +2 pitting. Right leg trace edema. She has tenderness along the medial aspect of the thigh, the knee, even though she has a good range of motion, and all the way to below the knee to the foot. Significant pain along her heel. Healed scar from open reduction, internal fixation. There is no fluctuance, but +2 pitting edema. LABORATORY DATA: White count is 9.7, hemoglobin 9.5, hematocrit 30.9, platelets 179. Her highest white count had been 13.7. Sodium 141, potassium 4, chloride 104, bicarbonate 32, BUN 24, creatinine 1.02, glucose 172, calcium 8.2, magnesium 2.2. AST 5, ALT 12, alkaline phosphatase 51, CRP 2.67, down from 7.27. Midline placed today. Lower extremity CT was done on July 12, which showed soft tissue swelling with cellulitis. No CT evidence of osteomyelitis with the imaging limitations of this modality, but there was no loosening of the hardware. IMPRESSION: 1-Complicated skin and soft tissue infection of the left leg with persistent pain and erythema. The patient feels not improved, although her inflammatory markers have improved, and her fever has resolved. The patient feels worse and is asking for transfer to tertiary care center. She had surgery done at [facility] after she had the break in that leg and has had four different episodes of recurrent cellulitis. The orthopedic surgeon was Dr. Velia East, telephone number [phone]. 2. Chronic obstructive pulmonary disease (COPD) with right-sided heart failure. The patient still with significant edema. Is being diuresed on furosemide 40 mg IV every 12 hours. She has had a negative balance throughout with about 1 liter negative balance every day. PLAN: Continue current antibiotic. Consult tertiary care center for transfer for second opinion. I did also offer her possibility of a midline and IV antibiotic at home and outpatient consultation with orthopedics in [place] or [place], but she refuses to go home, as she feels the pain is out of control. Case discussed with Dr. Cohen. YOBANI
[2019-07-17] MEDS: RIVAROXABAN 20 MG TAB (XARELTO) PO SCH (17:22)
[2019-07-17] MEDS: traMADol 50 MG TAB PO PRN (21:13)
[2019-07-17 22:00] VITALS: BP 146/57
[2019-07-17] MEDS: MORPHINE 2 MG/ML 1ML VIAL (J2270) IV PRN (23:18)
[2019-07-18] MEDS: CEFEPIME HCL 1 GM in D5W MINI-BAG PLUS 50 ML IV SCH ×2 (04:59→15:12)
[2019-07-18 05:23] LABS: BASO # 0.1 10^3/uL (0.0-0.2); BASO % 0.5 % (0.0-1.0); EOS # 0.2 10^3/uL (0.0-0.5); EOS % 2.1 % (0.0-3.0); HEMATOCRIT 31.5 % (36.0-47.0); HEMOGLOBIN 9.6 g/dl (12.0-15.5); LYMPH # 1.5 10^3/uL (1.5-5.0); LYMPH % 13.2 % (24.0-44.0); MEAN CORPUSCULAR HEMOGLOBIN 27.5 pg (27.0-33.0); MEAN CORPUSCULAR HGB CONC 30.5 g/dl (32.0-36.5); MEAN CORPUSCULAR VOLUME 90.3 fl (80.0-96.0); MONO # 0.7 10^3/uL (0.0-0.8); MONO % 5.9 % (0.0-5.0); NEUTROPHILS # 8.6 10^3/uL (1.5-8.5); NEUTROPHILS % 76.4 % (36.0-66.0); PLATELET COUNT, AUTOMATED 171 10^3/uL (150-450); RED BLOOD COUNT 3.49 10^6/uL (4.00-5.40); WHITE BLOOD COUNT 11.3 10^3/uL (4.0-10.0)
[2019-07-18 05:47] LABS: ALBUMIN 2.6 GM/DL (3.2-5.2); BILIRUBIN,TOTAL 0.4 MG/DL (0.2-1.0); CALCIUM LEVEL 8.4 MG/DL (8.8-10.2); CREATININE FOR GFR 1.04 MG/DL (0.55-1.30); GLOMERULAR FILTRATION RATE 54.7 (>39); MAGNESIUM LEVEL 2.1 MG/DL (1.8-2.4); POTASSIUM SERUM 3.9 MEQ/L (3.5-5.1); TOTAL PROTEIN 5.1 GM/DL (6.4-8.2); VANCOMYCIN LEVEL TROUGH 15.3 UG/ML (10.0-20.0)
[2019-07-18 06:00] VITALS: BP 140/60
[2019-07-18] MEDS: VANCOMYCIN HCL 750 MG, VIAL MATE ADAPTER 1 EACH in D5W 250 ML IV SCH ×2 (06:02→17:26)
[2019-07-18] MEDS: traMADol 50 MG TAB PO PRN (06:14)
[2019-07-18] MEDS: ADVAIR HFA 230/21MCG INHALER INH SCH ×2 (07:14→20:39)
[2019-07-18] MEDS: FUROSEMIDE 40MG/4ML VIAL (J1940) IV SCH ×2 (08:23→16:49)
[2019-07-18] MEDS: HumaLOG INSULIN (NovoLOG) PER UNIT SC SCH ×4 (08:23→21:00)
[2019-07-18] MEDS: NYSTATIN 500,000 U/5 ML SUSP UDC SS SCH ×2 (08:23→22:12)
[2019-07-18] MEDS: buPROPion **XL** TABLET 150MG (WELLBUTRIN XL) PO SCH (08:23)
[2019-07-18] MEDS: predniSONE 5 MG TAB PO SCH (08:24)
[2019-07-18] MEDS: BRIMONIDINE 0.1% OPHTH SOLN 5 ML OU SCH ×2 (08:24→22:13)
[2019-07-18] MEDS: NYSTATIN 100,000 UNITS/GM TOPICAL PWD 15 GM TOP SCH ×2 (08:24→22:13)
[2019-07-18] MEDS: POTASSIUM CHLORIDE 10 MEQ SR TABLET PO SCH ×2 (08:24→22:13)
[2019-07-18] MEDS: CitaloPRAM (CeleXA) 20 MG TAB PO SCH (08:24)
--- NOTE | 2019-07-18 13:10 | IPNPDOC ---
Text Note Date of Service The patient was seen on 07/18/19. NOTE Subjective: Patient continues to have left leg pain with erythema. No any acute events overnight Patient denied fever, chills, nausea, dysuria Objective: VITAL SIGNS: Please see below. GENERAL: awake, alert, NAD, morbidly obese HEENT: NCAT, anicteric sclera, YENI NECK: supple, +JVD CARDIOVASCULAR EXAMINATION: S1S2, regular rate/rhythm RESPIRATORY EXAMINATION: Diminished lung sounds bilaterally ABDOMINAL EXAMINATION: positive bowel sounds x 4, NT EXTREMITIES: +2 left leg pitting edema,tender touch, dorsum of left foot swollen NEUROLOGICAL EXAMINATION: AAO x 3, no motor/sensory deficits Assessment/Plan Patient 78 years old female with past history of COPD, CHF, sick sinus syndrome with dual-chamber pacemaker, anxiety and depression presented to the hospital with increased left leg erythema. Patient stated that she has been treated with Keflex due to left distal leg cellulitis, however yesterday she started noticing that erythema increased up to her knee and she started feeling chills. In the ER patient was found to have left distal leg erythema from the ankle to the knee, leukocytes count of 12.4, lactic acid 2.1. Patient received 1 dose of ceftaroline IV in ER. Also patient stated that she has increased dyspnea and orthopnea. Problems (1) Sepsis Resolved Secondary to left leg cellulitis. Patient did have multiple episodes of left leg cellulitis. There is concern that hardware could be cause of chronic inflammation Pending x-rays of the left foot and tibia-fibula to make sure there is no evidence of osteomyelitis or loosening of the hardware. Blood culture negative, will repeat bc today, sedimentation rate, C-reactive protein Patient failed treatment with Keflex CT of left leg was negative for abscess in the outpatient settings Dr. Hunt recommended to change ceftaroline for vancomycin and cefepime on 07/12/19 Sedimentation rate improved to 49 from 56, CRP improved to 5.1. Pro- calcitonin 0.[address] Marcos recommended no surgical intervention at this time Doppler ultrasound of left lower extremity negative for DVT CT of left foot was done on 07/13/19 and does not show any identifiable abscess to be drained. There is no loosening of the prosthesis Patient potentially can be transferred to tertiary center for 2d opinion. I talked to RAMAN , transfer was declined, they offered ID consult by phone On 07/15/19 sedimentation rate went down to 52, CRP 3.58. No clinical improvements today. On 07/16/19 sedimentation rate 43, C-reactive protein 2.6 ON 07/17/19 CRP 3.05 (2) Cellulitis of leg, left left leg elevation See above (3) EDGARD (obstructive sleep apnea) CPAP at night (4) Obesity Complicating care (5) CHF exacerbation Resolved Patient has diastolic CHF Patient stated that her dyspnea improved after diuresis. Continue Lasix I's and O's Cardiac diet (6) COPD (chronic obstructive pulmonary disease) Not in acute exacerbation Continue home inhalers (7) Diabetes Insulin sliding scale Diabetes diet HbA1c 7.7 indicates fair control of diabetes Abdominal candidiasis Nystatin powder VS,Fishbone, I+O VS, Fishbone, I+O Laboratory Tests 07/18/19 05:07 Vital Signs Date Time Temp Pulse Resp B/P (MAP) Pulse Ox O2 Delivery O2 Flow Rate FiO2 07/18/19 07:15 Nasal Cannula 2.0 07/18/19 06:44 20 07/18/19 06:00 98.4 70 140/60 (86) 95 I&O- Last 24 Hours up to 6 AM 07/18/19 06:00 Intake Total 1275 ml Output Total 3075 ml Balance -1800 ml LIZZ ÁLVAREZ DO July 18, 2019 13:10
[2019-07-18] MEDS: SODIUM CHLORIDE 0.9% INJ 10 ML SYR IV SCH (13:54)
[2019-07-18 14:00] VITALS: BP 153/59
[2019-07-18] MEDS: RIVAROXABAN 20 MG TAB (XARELTO) PO SCH (17:26)
[2019-07-18 22:00] VITALS: BP 159/72
[2019-07-18] MEDS: MORPHINE 2 MG/ML 1ML VIAL (J2270) IV PRN (22:12)
[2019-07-18 22:14] VITALS: BP 159/72
[2019-07-19] MEDS: CEFEPIME HCL 1 GM in D5W MINI-BAG PLUS 50 ML IV SCH ×2 (04:07→15:08)
[2019-07-19 05:38] LABS: BASO # 0.1 10^3/uL (0.0-0.2); BASO % 0.4 % (0.0-1.0); EOS # 0.2 10^3/uL (0.0-0.5); EOS % 2.1 % (0.0-3.0); HEMATOCRIT 30.8 % (36.0-47.0); HEMOGLOBIN 9.7 g/dl (12.0-15.5); LYMPH # 1.4 10^3/uL (1.5-5.0); LYMPH % 12.6 % (24.0-44.0); MEAN CORPUSCULAR HEMOGLOBIN 28.4 pg (27.0-33.0); MEAN CORPUSCULAR HGB CONC 31.5 g/dl (32.0-36.5); MEAN CORPUSCULAR VOLUME 90.3 fl (80.0-96.0); MONO # 0.7 10^3/uL (0.0-0.8); MONO % 6.2 % (0.0-5.0); NEUTROPHILS # 8.7 10^3/uL (1.5-8.5); NEUTROPHILS % 76.8 % (36.0-66.0); PLATELET COUNT, AUTOMATED 181 10^3/uL (150-450); RED BLOOD COUNT 3.41 10^6/uL (4.00-5.40); WHITE BLOOD COUNT 11.3 10^3/uL (4.0-10.0)
[2019-07-19 06:00] VITALS: BP 150/48
[2019-07-19] MEDS: VANCOMYCIN HCL 750 MG, VIAL MATE ADAPTER 1 EACH in D5W 250 ML IV SCH ×2 (06:00→15:49)
[2019-07-19 06:02] LABS: ALBUMIN 2.6 GM/DL (3.2-5.2); ALT/SGPT 12 U/L (12-78); BILIRUBIN,TOTAL 0.5 MG/DL (0.2-1.0); BLOOD UREA NITROGEN 21 MG/DL (7-18); CALCIUM LEVEL 8.4 MG/DL (8.8-10.2); CARBON DIOXIDE LEVEL 33 MEQ/L (21-32); CHLORIDE LEVEL 101 MEQ/L (98-107); CREATININE FOR GFR 0.92 MG/DL (0.55-1.30); GLOMERULAR FILTRATION RATE > 60.0 (>39); GLUCOSE, FASTING 183 MG/DL (70-100); POTASSIUM SERUM 3.9 MEQ/L (3.5-5.1); SODIUM LEVEL 141 MEQ/L (136-145); TOTAL PROTEIN 5.2 GM/DL (6.4-8.2)
[2019-07-19] MEDS: ADVAIR HFA 230/21MCG INHALER INH SCH (07:22)
[2019-07-19] MEDS: traMADol 50 MG TAB PO PRN (07:30)
[2019-07-19] MEDS: CitaloPRAM (CeleXA) 20 MG TAB PO SCH (07:30)
[2019-07-19] MEDS: predniSONE 5 MG TAB PO SCH (07:30)
[2019-07-19] MEDS: buPROPion **XL** TABLET 150MG (WELLBUTRIN XL) PO SCH (07:30)
[2019-07-19] MEDS: HumaLOG INSULIN (NovoLOG) PER UNIT SC SCH ×2 (07:31→12:55)
[2019-07-19] MEDS: POTASSIUM CHLORIDE 10 MEQ SR TABLET PO SCH (07:31)
[2019-07-19] MEDS: NYSTATIN 500,000 U/5 ML SUSP UDC SS SCH (07:31)
[2019-07-19] MEDS: FUROSEMIDE 40MG/4ML VIAL (J1940) IV SCH (07:32)
[2019-07-19] MEDS: BRIMONIDINE 0.1% OPHTH SOLN 5 ML OU SCH (07:32)
[2019-07-19] MEDS: NYSTATIN 100,000 UNITS/GM TOPICAL PWD 15 GM TOP SCH (07:32)
[2019-07-19 09:26] LABS: C REACTIVE PROTEIN QUANTITATIV 3.28 MG/DL (0.00-0.30)
[2019-07-19] MEDS: SODIUM CHLORIDE 0.9% INJ 10 ML SYR IV SCH (13:51)
[2019-07-19] MEDS ORDERED: ACET1TAB55 PO (14:53)
[2019-07-19 15:15] VITALS: BP 162/64
--- NOTE | 2019-07-19 16:26 | DS.PDOC ---
Discharge Summary General Date of Admission July 06, 2019 at 17:02 Date of Discharge 07/19/19 Discharge Summary PROCEDURES PERFORMED DURING STAY: [None]. ADMITTING DIAGNOSES: Sepsis Cellulitis of leg, left EDGARD (obstructive sleep apnea) Obesity CHF exacerbation COPD (chronic obstructive pulmonary disease) Diabetes Abdominal candidiasis DISCHARGE DIAGNOSES: Sepsis Cellulitis of leg, left EDGARD (obstructive sleep apnea) Obesity CHF exacerbation COPD (chronic obstructive pulmonary disease) Diabetes Abdominal candidiasis COMPLICATIONS/CHIEF COMPLAINT: Cellulitis Of Left Lower Extremity. HISTORY OF PRESENT ILLNESS: Mrs. Stokes is a 78-year-old morbidly obese female with a history of ankle fracture a couple years ago with open reduction internal fixation. The patient presented to the emergency room with complaint of left lower extremity cellulitis and redness. She was given Keflex without any improvement. She took that for 48 hours. She came back with worsening pain, swelling and redness. She was started on IV Ceftaroline on 07/06/2019, currently day #3. Her temperature was 100.5 on admission. She has been afebrile for the past 48 hours. Her white count was 12.4, today was 8.4, but the redness and swelling are about the same as well as the pain continues. She denies any nausea, vomiting, diarrhea, or abdominal pain. She has a history of advanced chronic obstructive pulmonary disease (COPD) and has some baseline shortness of breath. On review of the [facility] chart, the patient had four episodes of cellulitis in the past year in August, September, April and June. She has no previous history of methicillin-resistant Staphylococcus aureus (MRSA) infection. No abscesses. Ultrasound of the lower extremity showed no evidence of deep vein thrombosis (DVT). HOSPITAL COURSE: During hospital stay following issue addressed Sepsis Resolved Secondary to left leg cellulitis. Patient did have multiple episodes of left leg cellulitis. There is concern that hardware could be cause of chronic inflammation Pending x-rays of the left foot and tibia-fibula to make sure there is no jay dence of osteomyelitis or loosening of the hardware. Blood culture negative, will repeat bc today, sedimentation rate, C-reactive protein Patient failed treatment with Keflex CT of left leg was negative for abscess in the outpatient settings Dr. Hunt recommended to change ceftaroline for vancomycin and cefepime on 07/12/19 Sedimentation rate improved to 49 from 56, CRP improved to 5.1. Pro-calcitonin 0.[address] Marcos recommended no surgical intervention at this time Doppler ultrasound of left lower extremity negative for DVT CT of left foot was done on 07/13/19 and does not show any identifiable abscess to be drained. There is no loosening of the prosthesis Patient potentially can be transferred to tertiary center for 2d opinion. I talked to [facility] , transfer was declined, they offered ID consult by phone On 07/15/19 sedimentation rate went down to 52, CRP 3.58. On 07/16/19 sedimentation rate 43, C-reactive protein 2.6 ON 07/17/19 CRP 3.05 Patient will be discharged home with IV antibiotics for next 12 days. Recommended follow-up with orthopedic surgeon in [place] (2) Cellulitis of leg, left left leg elevation See above (3) EDGARD (obstructive sleep apnea) CPAP at night (4) Obesity Complicating care (5) CHF exacerbation Resolved Patient has diastolic CHF Patient stated that her dyspnea improved after diuresis. Continue Lasix I's and O's Cardiac diet (6) COPD (chronic obstructive pulmonary disease) Not in acute exacerbation Continue home inhalers (7) Diabetes Insulin sliding scale Diabetes diet HbA1c 7.7 indicates fair control of diabetes Abdominal candidiasis Nystatin powder DISCHARGE MEDICATIONS: Please see below. ALLERGIES: Please see below. PHYSICAL EXAMINATION ON DISCHARGE: VITAL SIGNS: Please see below. VITAL SIGNS: Please see below. GENERAL: awake, alert, NAD, morbidly obese HEENT: NCAT, anicteric sclera, YENI NECK: supple, +JVD CARDIOVASCULAR EXAMINATION: S1S2, regular rate/rhythm RESPIRATORY EXAMINATION: Diminished lung sounds bilaterally ABDOMINAL EXAMINATION: positive bowel sounds x 4, NT EXTREMITIES: +2 left leg pitting edema,tender touch, dorsum of left foot swollen NEUROLOGICAL EXAMINATION: AAO x 3, no motor/sensory deficits LABORATORY DATA: Please see below. IMAGING: PROCEDURE INFORMATION: Exam: CT Left Lower Extremity Without Contrast, Ankle Exam date and time: 07/13/2019 6:29 PM Age: 78 years old Clinical indication: Pain; Lower leg; Left; Additional info: Osteo TECHNIQUE: Imaging protocol: CT of the Left lower extremity without contrast was performed. Exam focused on the ankle. Radiation optimization: All CT scans at this facility use at least one of these dose optimization techniques: automated exposure control; mA and/or kV adjustment per patient size (includes targeted exams where dose is matched to clinical indication); or iterative reconstruction. COMPARISON: No relevant prior studies available. FINDINGS: Dermal edema and subcutaneous edema is present within the lower leg, ankle and foot. No identifiable peripherally enhancing fluid collection to suggest an organized drainable abscess. No subfascial fluid collection. Muscular architecture of the lower leg is maintained in the intrinsic muscles of the foot demonstrate overall normal architecture. Distal fibular fixation plate and medial malleolar screws are present with anatomic alignment. Midfoot fixation hardware is also present limiting the evaluation of the midfoot because of artifact. No abnormal lucency at the interface between hardware and bone No obvious cortical erosion or destructive process to indicate osteomyelitis involving the ankle and foot. Cortical margins appear to be maintained. Joint spaces are maintained relatively well given the patient's age and taking into account the postoperative changes of the left midfoot. IMPRESSION: Soft tissue swelling suggesting cellulitis diffusely. No CT evidence of osteomyelitis, within the imaging limitations of this modality. No evidence of abscess or hardware loosening Electronically signed by: Angelo Lorenz On 07/13/2019 18:53:29 PM DD: ANGELO LORENZ MD 07/13/19 1829 DT: AUDELIA 07/13/191852 DS: LUCY 07/13/191852 PROGNOSIS: Fair ACTIVITY: [As tolerated]. DIET: Cardiac DISCHARGE PLAN: Continue IV antibiotics DISPOSITION: Home ITEMS TO FOLLOWUP ON ON OUTPATIENT: PCP, orthopedics surgeon, infectious diseases specialist DISCHARGE CONDITION: [Stable]. TIME SPENT ON DISCHARGE: Greater than 20 minutes. Vital Signs/I&Os Vital Signs Date Time Temp Pulse Resp B/P (MAP) Pulse Ox O2 Delivery O2 Flow Rate FiO2 07/19/19 15:15 99.2 89 18 162/64 (96) 95 Room Air 07/19/19 06:00 2.0 I&O- Last 24 Hours up to 6 AM 07/19/19 05:59 Intake Total 1680 ml Output Total 2625 ml Balance -945 ml Laboratory Data Labs 24H Laboratory Tests 2 07/18/19 16:37: Bedside Glucose (Misc Panel) 228H 07/18/19 20:46: Bedside Glucose (Misc Panel) 167H 07/19/19 05:20: Immature Granulocyte % (Auto) 1.9, Neutrophils (%) (Auto) 76.8H, Lymphocytes (%) (Auto) 12.6L, Monocytes (%) (Auto) 6.2H, Eosinophils (%) (Auto) 2.1, Basophils (%) (Auto) 0.4, Neutrophils # (Auto) 8.7H, Lymphocytes # (Auto) 1.4L, Monocytes # (Auto) 0.7, Eosinophils # (Auto) 0.2, Basophils # (Auto) 0.1, Nucleated Red Blood Cells % (auto) 0.2H, Anion Gap 7L, Glomerular Filtration Rate > 60.0, Calcium Level 8.4L, Magnesium Level 2.0, Total Bilirubin 0.5, Aspartate Amino Transf (AST/SGOT) 5L, Alanine Aminotransferase (ALT/SGPT) 12, Alkaline Phosphatase 53, C-Reactive Protein, Quantitative 3.28H, Total Protein 5.2L, Albumin 2.6L, Albumin/Globulin Ratio 1.0L 07/19/19 11:54: Bedside Glucose (Misc Panel) 242H CBC/BMP Laboratory Tests 07/19/19 05:20 FSBS Laboratory Tests Test 07/18/19 16:37 07/18/19 20:46 07/19/19 11:54 Range/Units Bedside Glucose (Misc Panel) 228 167 242 83-110 MG/DL Microbiology Microbiology 07/11/19 Blood Culture - Final, Complete NO GROWTH AFTER 5 DAYS Discharge Medications Scheduled Acetaminophen/Diphenhydramine (Acetaminophen Pm Caplet) 1 Each Tablet, 2 TAB PO QHS, (Reported) Bimatoprost (Lumigan) 50 Drop/2.5 Ml Farrah, 1 DROP OU QHS, (Reported) Brimonidine Tartrate (Alphagan P) 100 Drop/5 Ml Soln, 1 DROP OU BID, (Reported) Bupropion Hcl (Bupropion Xl) 150 Mg Tab, 150 MG PO DAILY, (Reported) Citalopram Hydrobromide (Celexa) 40 Mg Tab, 40 MG PO DAILY, (Reported) Diltiazem HCl (Diltiazem HCl) 60 Mg Tab, 60 MG PO QHS, (Reported) Fluticasone Propion/Salmeterol (Advair Hfa 230-21 Mcg Inhaler) 1 Aer Aer, 2 PUFF INH BID, (Reported) Furosemide (Furosemide) 20 Mg Tablet, 20 MG PO BID, (Reported) Pilocarpine HCl (Pilocarpine HCl 4% Opth Farrah) 4 % Farrah, 1 DROP OU BID, (Reported) Potassium Chloride (Potassium Chloride) 20 Meq Tablet.er, 20 MEQ PO BID, (Reported) Prednisone (Prednisone) 5 Mg Tablet, 5 MG PO DAILY, (Reported) Rivaroxaban (Xarelto) 20 Mg Tablet, 20 MG PO DAILY, (Reported) Scheduled PRN Acetaminophen (Acetaminophen) 325 Mg Tablet, 650 MG PO Q4HP PRN for PAIN OR FEVER Albuterol Sulfate (Proair Hfa) 108 Mcg/Act Aer, 2 PUFF INH Q4H PRN for SOB/WHEEZING, (Reported) Fluticasone Propionate (Flonase Allergy Relief) 9.9 Ml [place].susp, 2 SPRAY NA DA LYNDON PRN for ALLERGIES, (Reported) Ipratropium/Albuterol Sulfate (Iprat-Albut 0.5-3(2.5) mg/3 ml) 1 Farrah Farrah, 1 FARRAH INH QID PRN for SHORTNESS OF BREATH, (Reported) Tizanidine HCl (Tizanidine HCl) 4 Mg Tablet, 4 MG PO TID PRN for MUSCLE SPASMS, (Reported) Allergies Coded Allergies: Penicillins (Verified Allergy, Mild, RASH, 10/05/18) Sulfa (Sulfonamide Antibiotics) (Verified Allergy, Mild, RASH, 10/05/18) clindamycin (Verified Allergy, Mild, RASH, 10/05/18) codeine (Verified Allergy, Mild, STOMACH UPSET, RASH, 10/05/18) meperidine (Verified Allergy, Mild, STOMACH UPSET, RASH, 10/05/18) LIZZ ÁLVAREZ DO Jul 19, 2019 16:26
[2019-07-20] MEDS ORDERED: FURO40TA2 PO (05:40)
[2019-07-20] MEDS ORDERED: METO25TA PO (05:40)
[2019-07-20] MEDS ORDERED: FLUT1BLS6 INH (05:40)
[2019-07-20] MEDS ORDERED: ACET1TAB55 PO (05:46)
[2019-07-20] MEDS ORDERED: PERC5TAB12 PO (13:04)
== END 2019-07-19 17:30 | disposition home or self-care (01) | DRG 871 ==
LOC: M ED 14:30 → M ED INP 17:02 → ENRESERV 17:20 → M MSPAV 18:06
PROVIDERS: ADMIT Internal Medicine; ATTEND Internal Medicine
PROC: 05HB33Z Insertion of Infusion Device into Right Basilic Vein, Percutaneous Approach (ICD-10-PCS; principal; 2019-07-16 15:00)
DX: A41.9 Sepsis, unspecified organism (principal); I50.33 Acute on chronic diastolic (congestive) heart failure; L03.116 Cellulitis of left lower limb; Z68.42 Body mass index [BMI] 45.0-49.9, adult; E11.9 Type 2 diabetes mellitus without complications; I11.0 Hypertensive heart disease with heart failure; J44.9 Chronic obstructive pulmonary disease, unspecified; K21.9 Gastro-esophageal reflux disease without esophagitis; F41.9 Anxiety disorder, unspecified; E66.01 Morbid (severe) obesity due to excess calories; I49.5 Sick sinus syndrome; B37.2 Candidiasis of skin and nail; I27.20 Pulmonary hypertension, unspecified; G47.33 Obstructive sleep apnea (adult) (pediatric); H40.9 Unspecified glaucoma; F32.9 Major depressive disorder, single episode, unspecified; Z90.49 Acquired absence of other specified parts of digestive tract; Z79.01 Long term (current) use of anticoagulants; Z79.52 Long term (current) use of systemic steroids; Z87.81 Personal history of (healed) traumatic fracture; Z95.0 Presence of cardiac pacemaker; Z85.3 Personal history of malignant neoplasm of breast; Z88.0 Allergy status to penicillin; Z87.891 Personal history of nicotine dependence; Z88.1 Allergy status to other antibiotic agents; Z88.2 Allergy status to sulfonamides; Z88.5 Allergy status to narcotic agent; Z79.899 Other long term (current) drug therapy

== ENCOUNTER 2019-07-20 04:43 | Emergency (ER) | payer MEDICARE, OTHER ==
[~2019-07-20] VITALS: Ht 157.5 cm; Wt 118.2 kg
[~2019-07-20 04:43] MED LIST changes: +ACET25TA12 PO; -AMIO200T PO; +AMIO200T3 PO; -BUPR150T3 PO; +BUPR150T4 PO; +CEPH500C PO; +ISOS1TAB35 PO; +ISOS1TAB36 PO; -ISOS30TA4 PO; -ISOS60TA2 PO; -LISI-542 PO; +LISI-898 PO; +PANT40TA29 PO; -PANT40TA3 PO; +TIZA4TAB4 PO
[2019-07-20] MEDS ORDERED: traMADol 50 MG TAB PO ONE (05:00)
[2019-07-20] MEDS ORDERED: SODIUM CHLORIDE 0.9% INJ 10 ML SYR IV PRN (05:15)
[2019-07-20] MEDS ORDERED: FLUT1BLS6 INH (05:40)
[2019-07-20] MEDS ORDERED: METO25TA PO (05:40)
[2019-07-20] MEDS ORDERED: FURO40TA2 PO (05:40)
[2019-07-20] MEDS ORDERED: ACET1TAB55 PO (05:46)
[2019-07-20 05:48] LABS: BASO # 0.1 10^3/uL (0.0-0.2); BASO % 0.5 % (0.0-1.0); EOS # 0.2 10^3/uL (0.0-0.5); EOS % 1.7 % (0.0-3.0); HEMATOCRIT 32.5 % (36.0-47.0); LYMPH # 1.3 10^3/uL (1.5-5.0); LYMPH % 10.2 % (24.0-44.0); MEAN CORPUSCULAR HEMOGLOBIN 27.5 pg (27.0-33.0); MEAN CORPUSCULAR HGB CONC 30.8 g/dl (32.0-36.5); MEAN CORPUSCULAR VOLUME 89.5 fl (80.0-96.0); MONO # 0.8 10^3/uL (0.0-0.8); MONO % 6.1 % (0.0-5.0); NEUTROPHILS # 10.5 10^3/uL (1.5-8.5); NEUTROPHILS % 79.8 % (36.0-66.0); PLATELET COUNT, AUTOMATED 199 10^3/uL (150-450); RED BLOOD COUNT 3.63 10^6/uL (4.00-5.40); WHITE BLOOD COUNT 13.2 10^3/uL (4.0-10.0)
--- NOTE | 2019-07-20 05:49 | REPVR ---
PROCEDURE INFORMATION: Exam: US Duplex Left Lower Extremity Veins, Limited Exam date and time: 07/20/2019 5:36 AM Age: 78 years old Clinical indication: Pain; Edema, localized; Lower extremity, left; Leg, upper; Additional info: R/O dvt TECHNIQUE: Imaging protocol: Real-time Duplex ultrasound of the Left Lower Extremity with 2-D navarro scale, color Doppler flow and spectral waveform analysis with image documentation. Limited exam focused on the left lower extremity veins. COMPARISON: US Duplex, Ext,LOWER veins,unilat 07/13/2019 3:35 PM FINDINGS: Left deep veins: Unremarkable. The common femoral, femoral, and popliteal veins are patent without thrombus. Normal Doppler waveforms. Normal compressibility and/or augmentation response. Normal variant duplicated left mid to distal femoral vein is noted. Left superficial veins: Not evaluated on this exam. Soft tissues: Unremarkable. IMPRESSION: No evidence of left lower extremity DVT namely in the left CFV, FV and popliteal vein. Electronically signed by: Jeyson Seals On 07/20/2019 05:48:31 AM
[2019-07-20 06:10] LABS: C REACTIVE PROTEIN QUANTITATIV 3.25 MG/DL (0.00-0.30); CALCIUM LEVEL 8.5 MG/DL (8.8-10.2); CREATININE FOR GFR 0.99 MG/DL (0.55-1.30); GLOMERULAR FILTRATION RATE 57.9 (>39); POTASSIUM SERUM 4.2 MEQ/L (3.5-5.1)
[2019-07-20 06:29] LABS: ERYTHROCYTE SEDIMENTATION RATE 41 mm/hr (0-30)
[2019-07-20] MEDS ORDERED: PERCOCET 5MG/325MG TAB PO ONE (10:15)
[2019-07-20] MEDS ORDERED: PERC5TAB12 PO (13:04)
[2019-07-20] MEDS ORDERED: diphenhydrAMINE 25MG CAP As Ordered ONE (13:09)
[2019-07-20] MEDS ORDERED: diphenhydrAMINE 25MG CAP PO ONE (13:15)
[2019-07-20 13:48] VITALS: BP 155/68
[2020-01-31] MEDS ORDERED: OXYC1TAB23 (13:44)
[2020-01-31] MEDS ORDERED: DILT1TAB12 (13:44)
== END 2019-07-20 13:56 | disposition home or self-care (01) ==
LOC: M ED 04:43
DX: L03.116 Cellulitis of left lower limb (principal); E11.9 Type 2 diabetes mellitus without complications; Z79.2 Long term (current) use of antibiotics; Z79.51 Long term (current) use of inhaled steroids; Z79.52 Long term (current) use of systemic steroids; Z79.899 Other long term (current) drug therapy; Z86.79 Personal history of other diseases of the circulatory system; Z88.0 Allergy status to penicillin; Z88.1 Allergy status to other antibiotic agents; Z88.2 Allergy status to sulfonamides; Z88.6 Allergy status to analgesic agent; Z88.8 Allergy status to other drugs, medicaments and biological substances
CPT/HCPCS: 80048; 85025; 85652; 86140; 93971; 96365; 96366; 96367; 99285; J0696; J1642; J3370

== ENCOUNTER 2019-07-20 13:20 | Outpatient (CLI) | payer MEDICARE, OTHER ==
[~2019-07-20] VITALS: Ht 157.5 cm; Wt 117.7 kg
[~2019-07-20 13:20] MED LIST changes: +AMIO200T PO; -AMIO200T3 PO; +BUPR150T3 PO; -BUPR150T4 PO; +FLUT1BLS6 INH; -ISOS1TAB35 PO; -ISOS1TAB36 PO; +ISOS30TA4 PO; +ISOS60TA2 PO; +LISI-542 PO; -LISI-898 PO; +METO25TA PO; -PANT40TA29 PO; +PANT40TA3 PO; +PERC5TAB12 PO
[2019-07-20 13:25] VITALS: BP 148/65
[2019-07-20] MEDS ORDERED: VANCOMYCIN HCL 750 MG, VIAL MATE ADAPTER 1 EACH in D5W 250 ML IV ONE ×2 (14:00→15:00)
[2019-07-20] MEDS ORDERED: SODIUM CHLORIDE 0.9% INJ 10 ML SYR IV SCH (15:00)
[2019-07-20] MEDS ORDERED: SODIUM CHLORIDE 0.9% INJ 10 ML SYR IV PRN (15:00)
[2019-07-20 15:35] VITALS: BP 135/92
[2019-07-20] MEDS ORDERED: cefTRIAXone SOD 2 GM in D5W MINI-BAG PLUS 50 ML IV ONE (16:00)
[2019-07-20] MEDS ORDERED: cefTRIAXone SOD 2 GM in D5W MINI-BAG PLUS 50 ML IV SCH (16:00)
[2019-07-20 17:10] VITALS: BP 142/63
== END 2019-07-20 17:10 | disposition home or self-care (01) ==
LOC: M INFU 13:20
PROVIDERS: ATTEND Internal Medicine Infectious Disease
DX: L03.116 Cellulitis of left lower limb (principal)

== ENCOUNTER 2019-07-21 13:16 | Outpatient (CLI) | payer MEDICARE, OTHER ==
[~2019-07-21] VITALS: Ht 157.5 cm; Wt 117.7 kg
[2019-07-21 13:20] VITALS: BP 145/65
[2019-07-21] MEDS ORDERED: cefTRIAXone SOD 2 GM in D5W MINI-BAG PLUS 50 ML IV ONE (13:30)
[2019-07-21] MEDS ORDERED: SODIUM CHLORIDE 0.9% INJ 10 ML SYR IV PRN (13:30)
[2019-07-21] MEDS: SODIUM CHLORIDE 0.9% INJ 10 ML SYR IV SCH ×2 (13:40→16:40)
[2019-07-21 14:15] VITALS: BP 131/59
[2019-07-21 14:30] VITALS: BP 130/63
[2019-07-21] MEDS: VANCOMYCIN HCL 750 MG, VIAL MATE ADAPTER 1 EACH in D5W 250 ML IV SCH ×2 (14:32→15:37)
[2019-07-21 16:55] VITALS: BP 137/67
== END 2019-07-21 16:55 | disposition home or self-care (01) ==
LOC: M INFU 13:16
PROVIDERS: ATTEND Internal Medicine Infectious Disease
DX: L03.116 Cellulitis of left lower limb (principal); Z88.0 Allergy status to penicillin; Z88.1 Allergy status to other antibiotic agents; Z88.2 Allergy status to sulfonamides; Z88.5 Allergy status to narcotic agent
CPT/HCPCS: 96365; 96366; 96367; J0696; J1642; J3370

== ENCOUNTER 2019-07-22 12:36 | Outpatient (CLI) | payer MEDICARE, OTHER ==
[~2019-07-22] VITALS: Ht 157.5 cm; Wt 117.7 kg
[~2019-07-22 12:36] MED LIST changes: +SODIUM CHLORIDE 0.9% INJ 10 ML SYR IV PRN; +SODIUM CHLORIDE 0.9% INJ 10 ML SYR IV SCH; +cefTRIAXone SOD 2 GM in D5W MINI-BAG PLUS 50 ML IV ONE
[2019-07-22 13:03] VITALS: BP 126/59
[2019-07-22] MEDS: VANCOMYCIN HCL 750 MG, VIAL MATE ADAPTER 1 EACH in D5W 250 ML IV SCH ×2 (13:58→14:49)
[2019-07-22 16:14] VITALS: BP 134/60
== END 2019-07-22 16:15 | disposition home or self-care (01) ==
LOC: M INFU 12:36
PROVIDERS: ATTEND Internal Medicine Infectious Disease
DX: L03.116 Cellulitis of left lower limb (principal); Z88.0 Allergy status to penicillin; Z88.1 Allergy status to other antibiotic agents; Z88.2 Allergy status to sulfonamides; Z88.5 Allergy status to narcotic agent; Z88.8 Allergy status to other drugs, medicaments and biological substances
CPT/HCPCS: 96365; 96366; 96367; J0696; J1642; J3370

== ENCOUNTER 2019-07-23 13:34 | Outpatient (CLI) | payer MEDICARE, OTHER ==
[~2019-07-23] VITALS: Ht 157.5 cm; Wt 117.7 kg
[~2019-07-23 13:34] MED LIST changes: +cefTRIAXone SOD 2 GM in D5W MINI-BAG PLUS 50 ML IV SCH
[2019-07-23 13:40] VITALS: BP 128/60
[2019-07-23] MEDS: VANCOMYCIN HCL 750 MG, VIAL MATE ADAPTER 1 EACH in D5W 250 ML IV SCH ×2 (14:42→15:47)
[2019-07-23 17:00] VITALS: BP 135/63
== END 2019-07-23 17:00 | disposition home or self-care (01) ==
LOC: M INFU 13:34
PROVIDERS: ATTEND Internal Medicine Infectious Disease
DX: L03.116 Cellulitis of left lower limb (principal); Z88.0 Allergy status to penicillin; Z88.1 Allergy status to other antibiotic agents; Z88.2 Allergy status to sulfonamides; Z88.5 Allergy status to narcotic agent; Z88.8 Allergy status to other drugs, medicaments and biological substances
CPT/HCPCS: 96365; 96366; J0696; J1642; J3370

== ENCOUNTER 2019-07-24 09:22 | Outpatient (CLI) | payer MEDICARE, OTHER ==
[~2019-07-24] VITALS: Ht 157.5 cm; Wt 117.7 kg
[~2019-07-24 09:22] MED LIST changes: -SODIUM CHLORIDE 0.9% INJ 10 ML SYR IV PRN; -SODIUM CHLORIDE 0.9% INJ 10 ML SYR IV SCH; -cefTRIAXone SOD 2 GM in D5W MINI-BAG PLUS 50 ML IV ONE; -cefTRIAXone SOD 2 GM in D5W MINI-BAG PLUS 50 ML IV SCH
[2019-07-24 09:45] VITALS: BP 158/69
[2019-07-24] MEDS ORDERED: SODIUM CHLORIDE 0.9% INJ 10 ML SYR IV SCH (10:15)
[2019-07-24] MEDS: VANCOMYCIN HCL 750 MG, VIAL MATE ADAPTER 1 EACH in D5W 250 ML IV SCH ×2 (10:51→11:50)
[2019-07-24] MEDS ORDERED: cefTRIAXone SOD 2 GM in D5W MINI-BAG PLUS 50 ML IV ONE (12:00)
[2019-07-24] MEDS: SODIUM CHLORIDE 0.9% INJ 10 ML SYR IV PRN ×2 (12:05→12:52)
== END 2019-07-24 12:59 | disposition home or self-care (01) ==
LOC: M INFU 09:22 → M MSPAV 09:26 → M INFU 12:59
PROVIDERS: ATTEND Internal Medicine Infectious Disease
DX: L03.116 Cellulitis of left lower limb (principal); Z88.0 Allergy status to penicillin; Z88.1 Allergy status to other antibiotic agents; Z88.2 Allergy status to sulfonamides; Z88.5 Allergy status to narcotic agent; Z88.8 Allergy status to other drugs, medicaments and biological substances
CPT/HCPCS: 96365; J0696; J1642; J3370

== ENCOUNTER 2019-07-25 10:43 | Outpatient (CLI) | payer MEDICARE, OTHER ==
[2019-07-25 10:50] VITALS: BP 123/74
[2019-07-25] MEDS ORDERED: SODIUM CHLORIDE 0.9% INJ 10 ML SYR IV SCH (11:00)
[2019-07-25] MEDS ORDERED: SODIUM CHLORIDE 0.9% INJ 10 ML SYR IV PRN (11:00)
[2019-07-25] MEDS ORDERED: cefTRIAXone SOD 2 GM in D5W MINI-BAG PLUS 50 ML IV ONE (11:00)
[2019-07-25] MEDS: VANCOMYCIN HCL 750 MG, VIAL MATE ADAPTER 1 EACH in D5W 250 ML IV SCH ×2 (11:36→12:58)
[2019-07-26] MEDS ORDERED: CEFT1INJ5 IM (15:15)
== END 2019-07-25 15:09 | disposition home or self-care (01) ==
LOC: M INFU 10:43 → M MSPAV 10:44 → M INFU 15:09
PROVIDERS: ATTEND Internal Medicine Infectious Disease
DX: L03.116 Cellulitis of left lower limb (principal); Z88.0 Allergy status to penicillin; Z88.1 Allergy status to other antibiotic agents; Z88.2 Allergy status to sulfonamides; Z88.5 Allergy status to narcotic agent; Z88.8 Allergy status to other drugs, medicaments and biological substances
CPT/HCPCS: 96365; 96366; 96368; J0696; J3370

== ENCOUNTER 2019-07-26 13:28 | Outpatient (CLI) | payer MEDICARE, OTHER ==
[~2019-07-26] VITALS: Ht 157.5 cm; Wt 117.7 kg
[~2019-07-26 13:28] MED LIST changes: +cefTRIAXone SOD 2 GM in D5W MINI-BAG PLUS 50 ML IV ONE
[2019-07-26] MEDS ORDERED: SODIUM CHLORIDE 0.9% INJ 10 ML SYR IV PRN (13:30)
[2019-07-26] MEDS ORDERED: SODIUM CHLORIDE 0.9% INJ 10 ML SYR IV SCH (13:30)
[2019-07-26 13:45] VITALS: BP 149/68
[2019-07-26] MEDS ORDERED: VANCOMYCIN HCL 750 MG, VIAL MATE ADAPTER 1 EACH in D5W 250 ML IV ONE ×2 (14:00→15:00)
[2019-07-26] MEDS ORDERED: CEFT1INJ5 IM (15:15)
[2019-07-26 17:10] VITALS: BP 170/76
== END 2019-07-26 17:10 | disposition home or self-care (01) ==
LOC: M INFU 13:28
PROVIDERS: ATTEND Internal Medicine Infectious Disease
DX: L03.116 Cellulitis of left lower limb (principal); Z88.0 Allergy status to penicillin; Z88.1 Allergy status to other antibiotic agents; Z88.2 Allergy status to sulfonamides; Z88.5 Allergy status to narcotic agent; Z88.8 Allergy status to other drugs, medicaments and biological substances
CPT/HCPCS: 96365; 96366; 96367; J0696; J3370

== ENCOUNTER 2019-07-27 13:32 | Outpatient (CLI) | payer MEDICARE, OTHER ==
[~2019-07-27] VITALS: Ht 157.5 cm; Wt 117.7 kg
[~2019-07-27 13:32] MED LIST changes: +CEFT1INJ5 IM
[2019-07-27 13:35] VITALS: BP 122/68
[2019-07-27] MEDS ORDERED: VANCOMYCIN HCL 750 MG, VIAL MATE ADAPTER 1 EACH in D5W 250 ML IV ONE ×2 (14:00→15:00)
[2019-07-27 14:01] LABS: HEMATOCRIT 33.1 % (36.0-47.0); HEMOGLOBIN 10.1 g/dl (12.0-15.5); MEAN CORPUSCULAR HEMOGLOBIN 27.4 pg (27.0-33.0); MEAN CORPUSCULAR HGB CONC 30.5 g/dl (32.0-36.5); MEAN CORPUSCULAR VOLUME 89.9 fl (80.0-96.0); PLATELET COUNT, AUTOMATED 190 10^3/uL (150-450); RED BLOOD COUNT 3.68 10^6/uL (4.00-5.40); WHITE BLOOD COUNT 10.9 10^3/uL (4.0-10.0)
[2019-07-27 14:33] LABS: C REACTIVE PROTEIN QUANTITATIV 1.74 MG/DL (0.00-0.30); CALCIUM LEVEL 8.4 MG/DL (8.8-10.2); CREATININE FOR GFR 0.98 MG/DL (0.55-1.30); ERYTHROCYTE SEDIMENTATION RATE 23 mm/hr (0-30); GLOMERULAR FILTRATION RATE 58.6 (>39); POTASSIUM SERUM 4.2 MEQ/L (3.5-5.1); VANCOMYCIN LEVEL TROUGH 11.9 UG/ML (10.0-20.0)
[2019-07-27 16:50] VITALS: BP 137/72
== END 2019-07-27 16:50 | disposition home or self-care (01) ==
LOC: M INFU 13:32
PROVIDERS: ATTEND Internal Medicine Infectious Disease
DX: L03.116 Cellulitis of left lower limb (principal); Z88.1 Allergy status to other antibiotic agents; Z88.0 Allergy status to penicillin; Z88.2 Allergy status to sulfonamides; Z88.5 Allergy status to narcotic agent
CPT/HCPCS: 80048; 80202; 85027; 85652; 86140; 96365; 96366; 96375; J0696; J3370

== ENCOUNTER 2019-07-28 13:03 | Outpatient (CLI) | payer MEDICARE, OTHER ==
[~2019-07-28] VITALS: Ht 157.5 cm; Wt 117.7 kg
[~2019-07-28 13:03] MED LIST changes: -cefTRIAXone SOD 2 GM in D5W MINI-BAG PLUS 50 ML IV ONE
[2019-07-28] MEDS ORDERED: cefTRIAXone SOD 2 GM in D5W MINI-BAG PLUS 50 ML IV ONE (13:30)
[2019-07-28 13:45] VITALS: BP 140/60
[2019-07-28 14:48] VITALS: BP 137/64
[2019-07-28] MEDS ORDERED: VANCOMYCIN HCL 750 MG, VIAL MATE ADAPTER 1 EACH in D5W 250 ML IV ONE ×2 (15:00→16:00)
[2019-07-28 15:50] VITALS: BP 146/72
[2019-07-28 16:26] VITALS: BP 138/60
== END 2019-07-28 16:25 | disposition home or self-care (01) ==
LOC: M INFU 13:03
PROVIDERS: ATTEND Internal Medicine Infectious Disease
DX: L03.116 Cellulitis of left lower limb (principal); Z88.0 Allergy status to penicillin; Z88.1 Allergy status to other antibiotic agents; Z88.2 Allergy status to sulfonamides; Z88.5 Allergy status to narcotic agent; Z88.8 Allergy status to other drugs, medicaments and biological substances
CPT/HCPCS: 96365; 96366; 96375; J0696; J3370

== ENCOUNTER → 2019-07-29 | Outpatient (CLI) | payer MEDICARE, OTHER ==
[~2019-07-29] VITALS: Ht 157.5 cm; Wt 117.7 kg
[~2019-07-29] MED LIST changes: +LEVO750T13 PO; +PENI500T PO; +TORS20TA2 PO; +VANCOMYCIN HCL 750 MG, VIAL MATE ADAPTER 1 EACH in D5W 250 ML IV ONE; +cefTRIAXone SOD 2 GM in D5W MINI-BAG PLUS 50 ML IV ONE
[2019-07-29 12:40] VITALS: BP 150/64
[2019-07-29 16:35] VITALS: BP 139/72
== END ==
LOC: M INFU 12:32
PROVIDERS: ATTEND Internal Medicine Infectious Disease
DX: L03.116 Cellulitis of left lower limb (principal); Z88.0 Allergy status to penicillin; Z88.1 Allergy status to other antibiotic agents; Z88.8 Allergy status to other drugs, medicaments and biological substances; Z88.5 Allergy status to narcotic agent; Z88.2 Allergy status to sulfonamides
CPT/HCPCS: 96365; 96366; 96367; J0696; J3370

== ENCOUNTER 2019-08-08 23:57 | Inpatient (IN) | payer MEDICARE, OTHER ==
[~2019-08-08] VITALS: Ht 157.5 cm; Wt 123.7 kg
[~2019-08-08 23:57] MED LIST changes: -AMIO200T PO; +AMIO200T3 PO; -BUPR150T3 PO; +BUPR150T4 PO; +ISOS1TAB35 PO; +ISOS1TAB36 PO; -ISOS30TA4 PO; -ISOS60TA2 PO; -LEVO750T13 PO; -LISI-542 PO; +LISI-898 PO; +PANT40TA29 PO; -PANT40TA3 PO; -PENI500T PO; -TORS20TA2 PO; -VANCOMYCIN HCL 750 MG, VIAL MATE ADAPTER 1 EACH in D5W 250 ML IV ONE; -cefTRIAXone SOD 2 GM in D5W MINI-BAG PLUS 50 ML IV ONE
[2019-08-09] MEDS ORDERED: FUROSEMIDE 100MG/10ML VIAL (J1940) IV ONE (00:45)
[2019-08-09] MEDS ORDERED: COMBIVENT RESPIMAT 100-20MCG INHALER 4GM INH ONE (00:45)
[2019-08-09] MEDS ORDERED: methylPREDNISolone 125MG 2ML VIAL IV ONE (00:45)
[2019-08-09 01:18] LABS: BASO # 0.1 10^3/uL (0.0-0.2); BASO % 0.5 % (0.0-1.0); EOS # 0.1 10^3/uL (0.0-0.5); EOS % 1.1 % (0.0-3.0); HEMATOCRIT 30.9 % (36.0-47.0); HEMOGLOBIN 9.4 g/dl (12.0-15.5); LYMPH # 0.9 10^3/uL (1.5-5.0); LYMPH % 9.1 % (24.0-44.0); MEAN CORPUSCULAR HEMOGLOBIN 27.5 pg (27.0-33.0); MEAN CORPUSCULAR HGB CONC 30.4 g/dl (32.0-36.5); MEAN CORPUSCULAR VOLUME 90.4 fl (80.0-96.0); MONO # 0.6 10^3/uL (0.0-0.8); MONO % 6.2 % (0.0-5.0); NEUTROPHILS # 8.4 10^3/uL (1.5-8.5); NEUTROPHILS % 82.2 % (36.0-66.0); PLATELET COUNT, AUTOMATED 159 10^3/uL (150-450); RED BLOOD COUNT 3.42 10^6/uL (4.00-5.40); VENOUS BASE EXCESS 8.3 (-2.0-2.0); VENOUS HCO3 35.2 MEQ/L (23.0-27.0); VENOUS PARTIAL PRESSURE CO2 62.4 mmHg (38.0-50.0); VENOUS PARTIAL PRESSURE O2 37.6 mmHg (30.0-50.0); VENOUS PH 7.369 UNITS (7.330-7.430); VENOUS STANDARD HCO3 31.4 MEQ/L; VENOUS TOTAL CO2 37.1 MEQ/L (24.0-28.0); WHITE BLOOD COUNT 10.3 10^3/uL (4.0-10.0)
[2019-08-09 01:48] LABS: ALBUMIN 2.9 GM/DL (3.2-5.2); ALT/SGPT 12 U/L (12-78); BILIRUBIN,DIRECT 0.2 MG/DL (0.0-0.2); BILIRUBIN,TOTAL 0.6 MG/DL (0.2-1.0); BLOOD UREA NITROGEN 18 MG/DL (7-18); CARBON DIOXIDE LEVEL 35 MEQ/L (21-32); CHLORIDE LEVEL 101 MEQ/L (98-107); CPK CREATINE PHOSPHOKINASE 37 U/L (26-192); CREATININE FOR GFR 1.07 MG/DL (0.55-1.30); GLOMERULAR FILTRATION RATE 52.9 (>39); GLUCOSE, FASTING 150 MG/DL (70-100); MB/CK RELATIVE INDEX 10.81 (< OR =4); POTASSIUM SERUM 4.2 MEQ/L (3.5-5.1); SODIUM LEVEL 143 MEQ/L (136-145); TOTAL PROTEIN 5.4 GM/DL (6.4-8.2); TROPONIN I < 0.02 NG/ML (< 0.10)
[2019-08-09] MEDS ORDERED: OXYC1TAB23 PO (05:01)
[2019-08-09] MEDS ORDERED: PENI500T PO (05:01)
[2019-08-09] MEDS ORDERED: LEVO750T13 PO (05:01)
[2019-08-09] MEDS ORDERED: TORS20TA2 PO (05:03)
--- NOTE | 2019-08-09 05:25 | HPEPDOC ---
[facility] Medical History & Physical Date of Admission Aug 09, 2019 Date of Service: Aug 09, 2019 Attending Physician: LEXI MESSER MD History and Physical CHIEF COMPLAINT: Shortness of breath HISTORY OF PRESENT ILLNESS: 78-year-old female with past medical history of congestive heart failure, atrial fibrillation, status post permanent pacemaker placement, COPD and hypertension presents with shortness of breath. She was just discharged from [facility] yesterday, experienced worsening dyspnea and presented to the hospital today. She was admitted at [facility] for left lower shotty cellulitis, discharged after a week of hospitalization. She was previously taking Lasix 40 mg by mouth twice a day, which was switched to torsemide 20 mg daily at the time of discharge from [facility]. Dyspnea is worse with exertion, no other associated symptoms, denies chest pain, nausea, vomiting, abdominal pain or diarrhea. She does report increased swelling in bilateral lower extremities, cellulitis is improving as per patient. 10 point review of system is negative except for above PAST MEDICAL HISTORY: 1. Congestive heart failure. 2. Atrial fibrillation. 3. COPD. 4. Hypertension PAST SURGICAL HISTORY: 1. Multiple orthopedic surgeries. 2. Permanent pacemaker placement SOCIAL HISTORY: Previous smoker. Denies alcohol use. Denies drug use FAMILY HISTORY: Positive for heart disease ALLERGIES: Please see below. HOME MEDICATIONS: Please see below. PHYSICAL EXAMINATION: VITAL SIGNS: Please see below. GENERAL: No distress, morbidly obese HEENT: Normocephalic, atraumatic, moist mucous membranes NECK: Supple CARDIOVASCULAR EXAMINATION: S1, S2, no murmurs RESPIRATORY EXAMINATION: Scattered rhonchi, poor air movement, diminished in the bases, no wheezing ABDOMINAL EXAMINATION: Soft, nontender, nondistended, positive bowel sounds EXTREMITIES: Bilateral lower extremity pitting edema SKIN: Left lower extremity erythema NEUROLOGICAL EXAMINATION: Alert and oriented 3, no focal deficits PSYCHIATRIC EXAMINATION: Calm and cooperative LABORATORY DATA: See below. IMAGING: Chest x-ray showing cardiomegaly with pulmonary vascular congestion MICROBIOLOGY: Please see below. ASSESSMENT: 78-year-old female with multiple medical comorbidities who was discharged from [facility] yesterday. He is being admitted for acute on chronic congestive heart failure. PLAN: 1. Acute on chronic congestive heart failure. Diuretic dose was recently reduced, weigh daily, monitor I's and O's, fluid restriction of 1200 ml per day, Lasix 40 mg IV twice a day. 2. Atrial fibrillation. Continue Xarelto for anticoagulation and Cardizem for rate control 3. Left lower extremity cellulitis. Recently admitted at [facility] for this, was discharged home on Levaquin and penicillin, will continue. 4. COPD Stable, continue home regimen. DVT prophylaxis: Xarelto GI prophylaxis: Not needed Vital Signs Vital Signs Date Time Temp Pulse Resp B/P (MAP) Pulse Ox O2 Delivery O2 Flow Rate FiO2 08/09/19 02:27 70 18 95 Room Air 08/09/19 01:18 08/08/19 23:57 98.3 Laboratory Data Labs 24H Laboratory Tests 2 08/09/19 00:42: Anion Gap 7L, Glomerular Filtration Rate 52.9, Lactic Acid Level 2.0, Calcium Level 9.0, Total Bilirubin 0.6, Direct Bilirubin 0.2, Aspartate Amino Transf (AST/SGOT) 8, Alanine Aminotransferase (ALT/SGPT) 12, Alkaline Phosphatase 63, Total Creatine Kinase 37, Creatine Kinase MB 4.0H, Creatine Kinase MB Relative Index 10.81H, Troponin I < 0.02, Total Protein 5.4L, Albumin 2.9L, Albumin/Globulin Ratio 1.2 08/09/19 01:07: Immature Granulocyte % (Auto) 0.9, Neutrophils (%) (Auto) 82.2H, Lymphocytes (%) (Auto) 9.1L, Monocytes (%) (Auto) 6.2H, Eosinophils (%) (Auto) 1.1, Basophils (%) (Auto) 0.5, Neutrophils # (Auto) 8.4, Lymphocytes # (Auto) 0.9L, Monocytes # (Auto) 0.6, Eosinophils # (Auto) 0.1, Basophils # (Auto) 0.1, Nucleated Red Blood Cells % (auto) 0.2H, Blood Gas Bicarbonate Standard 31.4, Venous Blood pH 7.369, Venous Blood Partial Pressure CO2 62.4H, Venous Blood Partial Pressure O2 37.6, Venous Blood Total Carbon Dioxide 37.1H, Venous Blood HCO3 35.2H, Venous Blood Oxygen Saturation 66.0, Venous Blood Base Excess 8.3H CBC/BMP Laboratory Tests 08/09/19 00:42 08/09/19 01:07 Microbiology Microbiology 08/09/19 Respiratory Virus Panel (PCR) (EMILEE) - Final, Complete 08/09/19 Blood Culture, Received Pending 08/09/19 Blood Culture, Received Pending Home Medications Scheduled Acetaminophen/Diphenhydramine (Acetaminophen Pm Caplet) 1 Each Tablet, 2 TAB PO QHS Bimatoprost (Lumigan) 50 Drop/2.5 Ml Farrah, 1 DROP OU QHS Bupropion Hcl (Bupropion Xl) 150 Mg Tab, 150 MG PO DAILY Ceftriaxone Sodium (Ceftriaxone) 1 Gm Vial, 1 GRAM IM DAILY Citalopram Hydrobromide (Celexa) 40 Mg Tab, 40 MG PO DAILY Diltiazem HCl (Diltiazem HCl) 60 Mg Tab, 60 MG PO QHS Fluticasone Propion/Salmeterol (Fluticasone-Salmeterol 500-50) 1 Each Blst.w.dev, 2 PUFF INH BID Furosemide (Furosemide) 40 Mg Tablet, 40 MG PO BID Metolazone (Metolazone) 2.5 Mg Tablet, 2.5 MG PO DAILY Pilocarpine HCl (Pilocarpine HCl 4% Opth Farrah) 4 % Farrah, 1 DROP OU BID Potassium Chloride (Potassium Chloride) 20 Meq Tablet.er, 20 MEQ PO BID Prednisone (Prednisone) 5 Mg Tablet, 5 MG PO DAILY Rivaroxaban (Xarelto) 20 Mg Tablet, 20 MG PO DAILY Scheduled PRN Acetaminophen (Acetaminophen) 325 Mg Tablet, 650 MG PO Q6H PRN for PAIN Albuterol Sulfate (Proair Hfa) 108 Mcg/Act Aer, 2 PUFF INH Q4H PRN for SOB/WHEEZING Fluticasone Propionate (Flonase Allergy Relief) 9.9 Ml [place].susp, 2 SPRAY NA DAILY PRN for ALLERGIES Ipratropium/Albuterol Sulfate (Iprat-Albut 0.5-3(2.5) mg/3 ml) 1 Farrah Farrah, 1 FARRAH INH QID PRN for SHORTNESS OF BREATH Oxycodone HCl/Acetaminophen (Percocet 5-325 mg Tablet) 1 Each Tablet, 1 TAB PO Q6H PRN for PAIN Allergies Coded Allergies: Penicillins (Verified Allergy, Mild, RASH, 10/05/18) Sulfa (Sulfonamide Antibiotics) (Verified Allergy, Mild, RASH, 10/05/18) clindamycin (Verified Allergy, Mild, RASH, 10/05/18) codeine (Verified Allergy, Mild, STOMACH UPSET, RASH, 10/05/18) meperidine (Verified Allergy, Mild, STOMACH UPSET, RASH, 10/05/18) A-FIB/CHADSVASC A-FIB History Current/History of A-Fib/PAF?: Yes Current PO Anticoag Therapy: Yes LEXI MESSER MD Aug 09, 2019 05:25
[2019-08-09] MEDS ORDERED: ALBUTEROL 90 MCG/ACT 8GM HFA INHALER INH PRN (05:30)
[2019-08-09] MEDS ORDERED: IPRATROPIUM 0.5MG/ALBUTEROL 2.5MG INH SOL UD 3ML (DUONEB) INH PRN (05:30)
[2019-08-09] MEDS ORDERED: ACETAMINOPHEN TAB 650MG DOSE (2X325MG) PO PRN (05:30)
[2019-08-09] MEDS ORDERED: FLUTICASONE PROP 0.05% NASAL SPRAY 16 GM (FLONASE) PRN (05:30)
[2019-08-09 06:00] VITALS: BP 141/64
[2019-08-09 07:38] LABS: BASO % 0.1 % (0.0-1.0); EOS % 0.1 % (0.0-3.0); HEMATOCRIT 31.8 % (36.0-47.0); HEMOGLOBIN 9.8 g/dl (12.0-15.5); LYMPH # 0.4 10^3/uL (1.5-5.0); LYMPH % 4.5 % (24.0-44.0); MEAN CORPUSCULAR HEMOGLOBIN 27.4 pg (27.0-33.0); MEAN CORPUSCULAR HGB CONC 30.8 g/dl (32.0-36.5); MEAN CORPUSCULAR VOLUME 88.8 fl (80.0-96.0); MONO % 0.4 % (0.0-5.0); NEUTROPHILS # 8.9 10^3/uL (1.5-8.5); NEUTROPHILS % 94.2 % (36.0-66.0); PLATELET COUNT, AUTOMATED 152 10^3/uL (150-450); RED BLOOD COUNT 3.58 10^6/uL (4.00-5.40); WHITE BLOOD COUNT 9.5 10^3/uL (4.0-10.0)
[2019-08-09 08:55] LABS: CALCIUM LEVEL 9.2 MG/DL (8.8-10.2); CREATININE FOR GFR 1.3 MG/DL (0.55-1.30); GLOMERULAR FILTRATION RATE 42.3 (>39); POTASSIUM SERUM 4.1 MEQ/L (3.5-5.1)
[2019-08-09] MEDS: FUROSEMIDE 40MG/4ML VIAL (J1940) IV SCH ×2 (09:41→21:57)
[2019-08-09] MEDS: POTASSIUM CHLORIDE 10 MEQ SR TABLET PO SCH ×2 (09:41→21:34)
[2019-08-09] MEDS: PENICILLIN V POTASSIUM 500 MG TAB PO SCH ×2 (10:02→21:33)
--- NOTE | 2019-08-09 11:23 | REP ---
Portable chest x-ray: Single view. History: Dyspnea and cough. Comparison chest x-ray: June 27, 2019. Findings: Monitoring electrodes overlie the chest. A bipolar pacemaker is again seen in the enlarged heart via the left side. There is no evidence of pleural effusion. Vascular congestion, cephalization, and prominent interstitial markings are seen however consistent with CHF with mild pulmonary edema. Electronically Signed by Eddi Thompson MD 08/09/2019 07:54 A
--- NOTE | 2019-08-09 12:42 | IPNPDOC ---
Text Note Date of Service The patient was seen on 08/09/19. NOTE Subjective: Patient is a 78-year-old female with a PMhx of CHF, Atrial fibrillation, SSS s/p PM, HTN, COPD and multiple admissions for left lower extremity cellulitis. She presented to the hospital with whitish breath. Patient has had multiple admission for left lower sternal cellulitis for which she has followed up with [facility]. Patient was recent discharge from [facility] on Friday with outpatient antibiotics Levaquin and Penicillin. . She reported that at that time, she was discharged with a different diuretic. Patient has been admitted to the hospitalist service for further evaluation and treatment of her decompensated heart failure. Patient was seen and examined at the bedside. . Patient reports that her breathing is doing better than the point of arrival. She denies any chest pain, palpitations, nausea, vomiting, abdominal pain, diarrhea, or urinary discomfort. Objective: Vitals (See below) General: Lying in bed, no acute distress, comfortable, AAOx3 HEENT: NC, AT CVS: +S1S2 Lungs: Poor inspiratory effort bilaterally without evidence of crackles, wheezing or rhonchi Abdomen: Soft, ND, NT Extremities: 2+ pitting edema bilateral lower extremities, - Calf tenderness Assessment and plan: Acute on chronic diastolic CHF - Patient reports that her breathing is doing slightly better than the point of arrival - Patient is saturating well on room air - Still does reveal lower extremity edema - ECHO 09/2018: Normal LV size and preserved LV function, grade 2 diastolic dysfunction, no significant valvular disease, probably normal CVP, at least moderate pulmonary hypertension - CXR 08/08: Monitoring electrodes overlie the chest. A bipolar pacemaker is again seen in the enlarged heart via the left side. There is no evidence of pleural effusion. Vascular congestion, cephalization, and prominent interstitial markings are seen however consistent with CHF with mild pulmonary edema. - Will repeat echocardiogram - Will continue with daily weights, strict ins and outs, fluid restriction - c/w Furosemide 40 IV BID Atrial fibrillation - Will continue with rate control with Cardizem - Will continue with full anticoagulation with Xarelto Left lower extremity cellulitis - Patient was recently discharged from [facility] in [place] after she followed up with her surgeon who had performed the initial procedure for her left ankle - We'll continue with outpatient antibiotics that she was prescribed, Levaquin and penicillin s/p Leukocytosis - likely 2/2 reactive etiology Normocytic anemia - Hemoglobin appears to be stable COPD - Appears to be stable, no evidence of exacerbation - Continue with inhaled therapy as ordered DVT prophylaxis - c/w full anticoagulation with Xarelto VS,Fishbone, I+O VS, Fishbone, I+O Laboratory Tests 08/09/19 00:42 08/09/19 01:07 08/09/19 07:24 Vital Signs Date Time Temp Pulse Resp B/P (MAP) Pulse Ox O2 Delivery O2 Flow Rate FiO2 08/09/19 09:41 80 127/64 08/09/19 06:00 98.3 18 92 Room Air I&O- Last 24 Hours up to 6 AM 08/09/19 06:00 Intake Total 150 ml Output Total 900 ml Balance -750 ml ADEN NATARAJAN MD Aug 09, 2019 12:42
[2019-08-09 14:00] VITALS: BP 157/73
--- NOTE | 2019-08-09 16:15 | ECGEPIP ---
[facility] - ED Test Date: 2019-08-09 Pat Name: MYAH DEAL Department: Room: [place] [address] Gender: Female Technical Agronomist: mahsa : [id number] Requested By: TATI Oliva Order Number: [id number] Reading MD: Km Awad Measurements Intervals [place] Rate: 73 P: 106 MT: 198 QRS: 24 QRSD: 106 T: 40 QT: 360 QTc: 398 Interpretive Statements ELECTRONIC ATRIAL PACEMAKER NONSPECIFIC T-WAVE ABNORMALITY Similar to tracing done 12-10-18, previous tracing on 06-27-19 was not paced Electronically Signed on 08-09-2019 16:14:50 EDT by Km Awad
[2019-08-09] MEDS: PERCOCET 5MG/325MG TAB PO PRN (19:34)
[2019-08-09] MEDS: RIVAROXABAN 20 MG TAB (XARELTO) PO SCH (21:34)
[2019-08-09] MEDS: CitaloPRAM (CeleXA) 20 MG TAB PO SCH (21:35)
[2019-08-09] MEDS: predniSONE 5 MG TAB PO SCH (21:35)
[2019-08-09] MEDS: buPROPion **XL** TABLET 150MG (WELLBUTRIN XL) PO SCH (21:36)
[2019-08-09 22:00] VITALS: BP 142/62
[2019-08-10 05:49] LABS: HEMATOCRIT 30.7 % (36.0-47.0); HEMOGLOBIN 9.3 g/dl (12.0-15.5); MEAN CORPUSCULAR HEMOGLOBIN 27.1 pg (27.0-33.0); MEAN CORPUSCULAR HGB CONC 30.3 g/dl (32.0-36.5); MEAN CORPUSCULAR VOLUME 89.5 fl (80.0-96.0); PLATELET COUNT, AUTOMATED 161 10^3/uL (150-450); RED BLOOD COUNT 3.43 10^6/uL (4.00-5.40); WHITE BLOOD COUNT 13.7 10^3/uL (4.0-10.0)
[2019-08-10 06:00] VITALS: BP 157/70
[2019-08-10 06:18] LABS: BILIRUBIN,TOTAL 0.5 MG/DL (0.2-1.0); CALCIUM LEVEL 9.2 MG/DL (8.8-10.2); CREATININE FOR GFR 1.26 MG/DL (0.55-1.30); GLOMERULAR FILTRATION RATE 43.8 (>39); MAGNESIUM LEVEL 2.2 MG/DL (1.8-2.4); POTASSIUM SERUM 4.2 MEQ/L (3.5-5.1); TOTAL PROTEIN 5.8 GM/DL (6.4-8.2)
--- NOTE | 2019-08-10 08:45 | ECHO ---
DATE OF STUDY: 08/09/2019 REFERRING PHYSICIAN: Dr. Patsy Puentes INDICATION: Edema unspecified. HEIGHT: 157 cm. WEIGHT: 127 kg. 2-D MEASUREMENTS: LVOT: 2.0 cm Aortic root: 3.0 cm Left atrium: 4.0 cm Ventricular septum: 1.28 cm Posterior wall: 1.20 cm Left ventricle diastole: 5.1 cm Inferior vena cava: 1.3 cm (approximately 50% respiratory variation) DOPPLER MEASUREMENTS: No aortic regurgitation Aortic valve velocity: 221 cm/sec LVOT velocity: 135 cm/sec LVOT VTI: 30.5 cm No mitral regurgitation Mitral E velocity: 119 cm/sec Mitral A velocity: 103 cm/sec Mitral deceleration time: 268 ms Very mild tricuspid regurgitation Estimated right ventricular systolic pressure 46 mmHg assuming a right atrial pressure of 10 mmHg No pulmonic regurgitation MITRAL ANNULAR TISSUE DOPPLER: E prime septal: 5.0 cm/sec E prime lateral: 5.9 cm/sec DESCRIPTION: The rhythm was sinus. This was a moderately technically difficult echocardiogram. No pericardial effusion. This was a 2-D, M-mode, color flow Doppler and pulse wave Doppler examination and included mitral annular tissue Doppler. CONCLUSIONS: 1. Very mild concentric left ventricle hypertrophy. Normal regional LV wall motion and wall thickening. Normal LV systolic function. LVEF 65% by visual estimate. Grade 2 LV diastolic function (pseudo normal filling pattern). 2. Mild left atrial dilatation. 3. Mild aortic valve sclerosis of a 3-cuspid aortic valve. No aortic regurgitation. 4. Mild mitral annular calcification. No mitral regurgitation. 5. Suggestive of moderate elevation of estimated right ventricle systolic pressure. Very mild tricuspid regurgitation. Normal right ventricle size and systolic function. Central venous pressure estimated to be approximately 10 mmHg. 6. Moderately technically difficult echocardiogram.
[2019-08-10] MEDS: FUROSEMIDE 40MG/4ML VIAL (J1940) IV SCH (09:24)
[2019-08-10] MEDS: POTASSIUM CHLORIDE 10 MEQ SR TABLET PO SCH ×2 (09:24→21:22)
[2019-08-10] MEDS: PENICILLIN V POTASSIUM 500 MG TAB PO SCH ×2 (09:24→21:22)
[2019-08-10] MEDS ORDERED: MIRALAX *UNIT DOSE* 17GM PACKET PO PRN (11:00)
--- NOTE | 2019-08-10 11:03 | IPNPDOC ---
Date Seen The patient was seen on 08/10/19. Progress Note SUBJECTIVE: 78-year-old female with past medical history of congestive heart failure, atrial fibrillation, status post permanent pacemaker placement, COPD and hypertension is admitted for acute on chronic congestive heart failure. Patient has been diuresing well since admission, continues to have dyspnea, not back to her baseline yet. She denies any additional complaints, denies chest pain, nausea, vomiting or abdominal pain. 10 point review of system is negative except for above PHYSICAL EXAMINATION: VITAL SIGNS: Please see below. GENERAL: No distress, morbidly obese HEENT: Normocephalic, atraumatic, moist mucous membranes NECK: Supple CARDIOVASCULAR EXAMINATION: S1, S2, no murmurs RESPIRATORY EXAMINATION: Scattered rhonchi, poor air movement, diminished in the bases, no wheezing ABDOMINAL EXAMINATION: Soft, nontender, nondistended, positive bowel sounds EXTREMITIES: Bilateral lower extremity pitting edema, slightly improved SKIN: Left lower extremity erythema NEUROLOGICAL EXAMINATION: Alert and oriented 3, no focal deficits PSYCHIATRIC EXAMINATION: Calm and cooperative LABORATORY DATA: See below. MICROBIOLOGY: Please see below. ASSESSMENT: 78-year-old female with multiple medical comorbidities who was discharged from [facility] yesterday. He is being admitted for acute on chronic congestive heart failure. PLAN: 1. Acute on chronic diastolic congestive heart failure. weigh daily, monitor I's and O's, fluid restriction of 1200 ml per day, Lasix 40 mg IV twice a day. TTE reviewed 2. Atrial fibrillation. Continue Xarelto for anticoagulation and Cardizem for rate control 3. Left lower extremity cellulitis. Recently admitted at [facility] for this, was discharged home on Levaquin and penicillin, will continue. 4. COPD Stable, continue home regimen. DVT prophylaxis: Xarelto GI prophylaxis: Not needed VS, I&O, 24H, [place] Vital Signs/I&O Vital Signs Date Time Temp Pulse Resp B/P (MAP) Pulse Ox O2 Delivery O2 Flow Rate FiO2 08/10/19 09:28 73 108/65 08/10/19 06:00 97.4 20 93 08/09/19 14:00 Room Air I&O- Last 24 Hours up to 6 AM 08/10/19 06:00 Intake Total 1740 ml Output Total 4025 ml Balance -2285 ml Laboratory Data 24H LABS Laboratory Tests 2 08/10/19 05:35: Nucleated Red Blood Cells % (auto) 0.0, Anion Gap 5L, Glomerular Filtration Rate 43.8, Calcium Level 9.2, Magnesium Level 2.2, Total Bilirubin 0.5, Aspartate Amino Transf (AST/SGOT) 6L, Alanine Aminotransferase (ALT/SGPT) 12, Alkaline Phosphatase 59, Total Protein 5.8L, Albumin 3.0L, Albumin/Globulin Ratio 1.1L CBC/BMP Laboratory Tests 08/10/19 05:35 Microbiology Microbiology 08/09/19 Respiratory Virus Panel (PCR) (EMILEE) - Final, Complete 08/09/19 Blood Culture - Preliminary, Resulted No growth after 24 hours . All specim... 08/09/19 Blood Culture - Preliminary, Resulted No growth after 24 hours . All specim... LEXI MESSER MD Aug 10, 2019 11:03
[2019-08-10 14:00] VITALS: BP 117/64
[2019-08-10] MEDS ORDERED: LevoFLOXacin 750 MG TABLET PO SCH (21:00)
[2019-08-10] MEDS: CitaloPRAM (CeleXA) 20 MG TAB PO SCH (21:21)
[2019-08-10] MEDS: predniSONE 5 MG TAB PO SCH (21:21)
[2019-08-10] MEDS: RIVAROXABAN 20 MG TAB (XARELTO) PO SCH (21:21)
[2019-08-10] MEDS: buPROPion **XL** TABLET 150MG (WELLBUTRIN XL) PO SCH (21:22)
[2019-08-10] MEDS: PERCOCET 5MG/325MG TAB PO PRN (21:23)
[2019-08-10 22:00] VITALS: BP 123/65
[2019-08-11 01:44] VITALS: BP 131/59
[2019-08-11 05:58] LABS: HEMATOCRIT 29.8 % (36.0-47.0); HEMOGLOBIN 9.2 g/dl (12.0-15.5); MEAN CORPUSCULAR HEMOGLOBIN 27.7 pg (27.0-33.0); MEAN CORPUSCULAR HGB CONC 30.9 g/dl (32.0-36.5); MEAN CORPUSCULAR VOLUME 89.8 fl (80.0-96.0); PLATELET COUNT, AUTOMATED 153 10^3/uL (150-450); RED BLOOD COUNT 3.32 10^6/uL (4.00-5.40); WHITE BLOOD COUNT 9.4 10^3/uL (4.0-10.0)
[2019-08-11 06:00] VITALS: BP 129/77
[2019-08-11 06:26] LABS: CALCIUM LEVEL 8.7 MG/DL (8.8-10.2); CREATININE FOR GFR 1.13 MG/DL (0.55-1.30); GLOMERULAR FILTRATION RATE 49.7 (>39); POTASSIUM SERUM 4.2 MEQ/L (3.5-5.1)
[2019-08-11] MEDS ORDERED: FUROSEMIDE 40MG/4ML VIAL (J1940) IV SCH ×2 (09:00→17:00)
[2019-08-11] MEDS: PENICILLIN V POTASSIUM 500 MG TAB PO SCH ×2 (09:14→20:24)
[2019-08-11] MEDS: POTASSIUM CHLORIDE 10 MEQ SR TABLET PO SCH ×2 (09:14→20:24)
--- NOTE | 2019-08-11 12:40 | IPNPDOC ---
Date Seen The patient was seen on 08/11/19. Progress Note SUBJECTIVE: 78-year-old female with past medical history of congestive heart failure, atrial fibrillation, status post permanent pacemaker placement, COPD and hypertension is admitted for acute on chronic congestive heart failure. Patient has not been diuresing well over the past 24 hours, oral intake has also been an issue as patient's compliance is not the best. Patient remains significantly symptomatic with exertion. No other complaints 10 point review of system is negative except for above PHYSICAL EXAMINATION: VITAL SIGNS: Please see below. GENERAL: No distress, morbidly obese HEENT: Normocephalic, atraumatic, moist mucous membranes NECK: Supple CARDIOVASCULAR EXAMINATION: S1, S2, no murmurs RESPIRATORY EXAMINATION: Scattered rhonchi, poor air movement, diminished in the bases, no wheezing ABDOMINAL EXAMINATION: Soft, nontender, nondistended, positive bowel sounds EXTREMITIES: Bilateral lower extremity pitting edema, slightly improved SKIN: Left lower extremity erythema NEUROLOGICAL EXAMINATION: Alert and oriented 3, no focal deficits PSYCHIATRIC EXAMINATION: Calm and cooperative LABORATORY DATA: See below. MICROBIOLOGY: Please see below. ASSESSMENT: 78-year-old female with multiple medical comorbidities who was discharged from [facility] yesterday. He is being admitted for acute on chronic congestive heart failure. PLAN: 1. Acute on chronic diastolic congestive heart failure. weigh daily, monitor I's and O's, fluid restriction of 1200 ml per day, increase Lasix 40 mg IV 3 times a day. We'll also give metolazone 2.5 mg 1 prior to her afternoon Lasix dose. 2. Atrial fibrillation. Continue Xarelto for anticoagulation and Cardizem for rate control 3. Left lower extremity cellulitis. Recently admitted at [facility] for this, was discharged home on Levaquin and penicillin, will continue. 4. COPD Stable, continue home regimen. DVT prophylaxis: Xarelto GI prophylaxis: Not needed VS, I&O, 24H, Fishbone Vital Signs/I&O Vital Signs Date Time Temp Pulse Resp B/P (MAP) Pulse Ox O2 Delivery O2 Flow Rate FiO2 08/11/19 09:17 73 136/72 08/11/19 06:00 96.8 18 97 Nasal Cannula 2.0 I&O- Last 24 Hours up to 6 AM 08/11/19 06:00 Intake Total 1210 ml Output Total 400 ml Balance 810 ml Laboratory Data 24H LABS Laboratory Tests 2 08/11/19 05:33: Nucleated Red Blood Cells % (auto) 0.0, Anion Gap 4L, Glomerular Filtration Rate 49.7, Calcium Level 8.7L CBC/BMP Laboratory Tests 08/11/19 05:33 Microbiology Microbiology 08/09/19 Respiratory Virus Panel (PCR) (EMILEE) - Final, Complete 08/09/19 Blood Culture - Preliminary, Resulted No Growth after 48 hours. All Specime... 08/09/19 Blood Culture - Preliminary, Resulted No Growth after 48 hours. All Specime... LEXI MESSER MD Aug 11, 2019 12:40
[2019-08-11 14:00] VITALS: BP 134/95
[2019-08-11] MEDS ORDERED: metOLazone 2.5 MG TAB PO ONE ×2 (14:45→16:30)
[2019-08-11] MEDS: FUROSEMIDE 40MG/4ML VIAL (J1940) IV SCH ×2 (15:52→18:51)
[2019-08-11] MEDS ORDERED: metOLazone 2.5 MG TAB PO SCH (16:30)
[2019-08-11] MEDS: predniSONE 5 MG TAB PO SCH (20:20)
[2019-08-11] MEDS: CitaloPRAM (CeleXA) 20 MG TAB PO SCH (20:24)
[2019-08-11] MEDS: RIVAROXABAN 20 MG TAB (XARELTO) PO SCH (20:24)
[2019-08-11] MEDS: buPROPion **XL** TABLET 150MG (WELLBUTRIN XL) PO SCH (20:24)
[2019-08-11 22:00] VITALS: BP 139/60
[2019-08-12] MEDS: PERCOCET 5MG/325MG TAB PO PRN (01:03)
[2019-08-12] MEDS: NYSTATIN 100,000 UNITS/GM TOPICAL PWD 15 GM TOP SCH ×2 (03:28→08:33)
[2019-08-12 06:00] VITALS: BP 124/67
[2019-08-12 06:08] LABS: HEMATOCRIT 32.5 % (36.0-47.0); HEMOGLOBIN 9.8 g/dl (12.0-15.5); MEAN CORPUSCULAR HEMOGLOBIN 26.7 pg (27.0-33.0); MEAN CORPUSCULAR HGB CONC 30.2 g/dl (32.0-36.5); MEAN CORPUSCULAR VOLUME 88.6 fl (80.0-96.0); PLATELET COUNT, AUTOMATED 167 10^3/uL (150-450); RED BLOOD COUNT 3.67 10^6/uL (4.00-5.40); WHITE BLOOD COUNT 10.6 10^3/uL (4.0-10.0)
[2019-08-12 06:32] LABS: CREATININE FOR GFR 1.26 MG/DL (0.55-1.30); GLOMERULAR FILTRATION RATE 43.8 (>39); MAGNESIUM LEVEL 1.9 MG/DL (1.8-2.4); POTASSIUM SERUM 3.4 MEQ/L (3.5-5.1)
[2019-08-12 08:33] VITALS: BP 126/66
[2019-08-12] MEDS: POTASSIUM CHLORIDE 10 MEQ SR TABLET PO SCH (08:33)
[2019-08-12] MEDS: PENICILLIN V POTASSIUM 500 MG TAB PO SCH (08:33)
[2019-08-12] MEDS ORDERED: metOLazone 2.5 MG TAB PO ONE (08:45)
[2019-08-12] MEDS ORDERED: POTASSIUM CHLORIDE 10 MEQ SR TABLET PO ONE ×2 (09:00→11:00)
[2019-08-12] MEDS ORDERED: FUROSEMIDE 40MG/4ML VIAL (J1940) IV SCH (09:00)
[2019-08-12] MEDS: KCL 10MEQ/100ML SWI (KRUN) 10 MEQ in IV 1 EA IV SCH ×3 (09:45→11:00)
--- NOTE | 2019-08-12 14:15 | DS.PDOC ---
Discharge Summary General Date of Admission Aug 09, 2019 at 04:53 Date of Discharge 08/12/2019 Attending Physician: LEXI MESSER MD Discharge Summary PROCEDURES PERFORMED DURING STAY: None. ADMITTING DIAGNOSES: 1. Acute on chronic diastolic congestive heart failure, cellulitis. DISCHARGE DIAGNOSES: 1. Acute on chronic diastolic congestive heart failure, cellulitis. COMPLICATIONS/CHIEF COMPLAINT: Chf, Cellulitis Of L Lower Extremity. HISTORY OF PRESENT ILLNESS: 78-year-old female was admitted for acute on chronic diastolic congestive heart failure, likely seconded to noncompliance and recent decrease in medication. Patient was treated with IV Lasix with intermittent d oses of metolazone with good clinical response. Patient is approaching her baseline, evaluated by physical therapy and will require rehabilitation placement. Patient will be discharged on Lasix 40 mg twice a day with potassium supplementation. Patient will continue Levaquin/penicillin to complete her antibody regimen for cellulitis in the outpatient setting. HOSPITAL COURSE: As above. DISCHARGE MEDICATIONS: Please see below. ALLERGIES: Please see below. PHYSICAL EXAMINATION: VITAL SIGNS: Please see below. GENERAL: No distress, morbidly obese HEENT: Normocephalic, atraumatic, moist mucous membranes NECK: Supple CARDIOVASCULAR EXAMINATION: S1, S2, no murmurs RESPIRATORY EXAMINATION: Scattered rhonchi, poor air movement, diminished in the bases, no wheezing ABDOMINAL EXAMINATION: Soft, nontender, nondistended, positive bowel sounds EXTREMITIES: Bilateral lower extremity pitting edema, significantly improved SKIN: Left lower extremity erythema NEUROLOGICAL EXAMINATION: Alert and oriented 3, no focal deficits PSYCHIATRIC EXAMINATION: Calm and cooperative LABORATORY DATA: Please see below. PROGNOSIS: Fair ACTIVITY: As tolerated. DIET: Cardiac with fluid restriction of 1500 mL per day DISCHARGE PLAN: Follow with PCP and miller supervisor in 1-2 weeks DISPOSITION: [facility]. DISCHARGE INSTRUCTIONS: 1. As above. DISCHARGE CONDITION: Stable. TIME SPENT ON DISCHARGE: Greater than 32 minutes. Vital Signs/I&Os Vital Signs Date Time Temp Pulse Resp B/P (MAP) Pulse Ox O2 Delivery O2 Flow Rate FiO2 08/12/19 08:33 71 126/66 08/12/19 06:00 98.3 17 91 Room Air 08/11/19 06:00 2.0 I&O- Last 24 Hours up to 6 AM 08/12/19 06:00 Intake Total 900 ml Output Total 3500 ml Balance -2600 ml Laboratory Data Labs 24H Laboratory Tests 2 08/12/19 05:51: Nucleated Red Blood Cells % (auto) 0.0, Anion Gap 8, Glomerular Filtration Rate 43.8, Calcium Level 9.0, Magnesium Level 1.9 CBC/BMP Laboratory Tests 08/12/19 05:51 Microbiology Microbiology 08/09/19 Respiratory Virus Panel (PCR) (EMILEE) - Final, Complete 08/09/19 Blood Culture - Preliminary, Resulted No Growth after 72 hours. All specime... 08/09/19 Blood Culture - Preliminary, Resulted No Growth after 72 hours. All specime... Discharge Medications Scheduled Acetaminophen/Diphenhydramine (Acetaminophen Pm Caplet) 1 Each Tablet, 2 TAB PO QHS, (Reported) Bimatoprost (Lumigan) 50 Drop/2.5 Ml Farrah, 1 DROP OU QHS, (Reported) Bupropion Hcl (Bupropion Xl) 150 Mg Tab, 150 MG PO BID, (Reported) Citalopram Hydrobromide (Celexa) 40 Mg Tab, 40 MG PO QHS, (Reported) Diltiazem HCl (Diltiazem HCl) 60 Mg Tab, 60 MG PO BID, (Reported) Fluticasone Propion/Salmeterol (Fluticasone-Salmeterol 500-50) 1 Each Blst.w.dev, 2 PUFF INH BID, (Reported) Furosemide (Furosemide) 40 Mg Tablet, 40 MG PO BID, (Reported) Levofloxacin (Levofloxacin) 750 Mg Tablet, 750 MG PO DAILY, (Reported) Penicillin V Potassium (Penicillin V Potassium) 500 Mg Tablet, 500 MG PO BID, (Reported) Pilocarpine HCl (Pilocarpine HCl 4% Opth Farrah) 4 % Farrah, 1 DROP OU BID, (Reported) Potassium Chloride (Potassium Chloride) 20 Meq Tablet.er, 20 MEQ PO BID, (Reported) Prednisone (Prednisone) 5 Mg Tablet, 5 MG PO QHS, (Reported) Rivaroxaban (Xarelto) 20 Mg Tablet, 20 MG PO QHS, (Reported) Scheduled PRN Acetaminophen (Acetaminophen) 325 Mg Tablet, 650 MG PO Q6H PRN for PAIN, (Reported) Albuterol Sulfate (Proair Hfa) 108 Mcg/Act Aer, 2 PUFF INH Q4H PRN for SOB/WHEEZING, (Reported) Fluticasone Propionate (Flonase Allergy Relief) 9.9 Ml [place].susp, 2 SPRAY NA DAILY PRN for ALLERGIES, (Reported) Ipratropium/Albuterol Sulfate (Iprat-Albut 0.5-3(2.5) mg/3 ml) 1 Farrah Farrah, 1 FARRAH INH QID PRN for SHORTNESS OF BREATH, (Reported) Oxycodone HCl/Acetaminophen (Oxycodone-Acetaminophen 5-325) 1 Each Tablet, 1 TAB PO Q6H PRN for pain, (Reported) Allergies Coded Allergies: Penicillins (Verified Allergy, Mild, RASH, 10/05/18) Sulfa (Sulfonamide Antibiotics) (Verified Allergy, Mild, RASH, 10/05/18) clindamycin (Verified Allergy, Mild, RASH, 10/05/18) codeine (Verified Allergy, Mild, STOMACH UPSET, RASH, 10/05/18) meperidine (Verified Allergy, Mild, STOMACH UPSET, RASH, 10/05/18) LEXI MESSER MD Aug 12, 2019 14:15
[2020-01-31] MEDS ORDERED: DILT1TAB12 (13:44)
[2020-01-31] MEDS ORDERED: OXYC1TAB23 (13:44)
== END 2019-08-12 13:26 | DRG 292 ==
LOC: M ED 23:57 → M ED INP 08-09 04:53 → ENRESERV 08-09 05:08 → M MSPAV 08-09 06:00
PROVIDERS: ADMIT Internal Medicine; ATTEND Internal Medicine
DX: I11.0 Hypertensive heart disease with heart failure (principal); L03.116 Cellulitis of left lower limb; I50.33 Acute on chronic diastolic (congestive) heart failure; I48.91 Unspecified atrial fibrillation; J44.9 Chronic obstructive pulmonary disease, unspecified; D64.9 Anemia, unspecified; I27.20 Pulmonary hypertension, unspecified; Z79.01 Long term (current) use of anticoagulants; Z79.899 Other long term (current) drug therapy; Z88.0 Allergy status to penicillin; Z88.1 Allergy status to other antibiotic agents; Z88.2 Allergy status to sulfonamides; Z88.5 Allergy status to narcotic agent; Z88.8 Allergy status to other drugs, medicaments and biological substances; Z95.0 Presence of cardiac pacemaker; Z87.891 Personal history of nicotine dependence; Z79.52 Long term (current) use of systemic steroids; Z79.51 Long term (current) use of inhaled steroids; Z91.14 Patient's other noncompliance with medication regimen

== ENCOUNTER → 2019-08-13 | Outpatient (REF) ==
[~2019-08-13] MED LIST changes: +BIMA1SOL OU; +DILT1TAB12; +FLUC100T PO; +LEVO750T13 PO; +METO5TA PO; +OXYC1TAB23; +PENI500T PO; +TORS20TA2 PO
[2019-08-13 14:13] LABS: CREATININE FOR GFR 1.45 MG/DL (0.55-1.30); GLOMERULAR FILTRATION RATE 37.3 (>39); POTASSIUM SERUM 3.8 MEQ/L (3.5-5.1)
== END ==
LOC: SKLAB4 09:35
PROVIDERS: ATTEND Internal Medicine
DX: I50.9 Heart failure, unspecified (principal)

== ENCOUNTER → 2019-08-17 | Outpatient (REF) ==
[~2019-08-17] MED LIST changes: +BUPR150T3 PO; -BUPR150T4 PO; -DILT1TAB12; -ISOS1TAB35 PO; -ISOS1TAB36 PO; +ISOS30TA4 PO; +ISOS60TA2 PO; +LISI-542 PO; -LISI-898 PO; -OXYC1TAB23
[2019-08-17 09:06] LABS: CREATININE FOR GFR 1.42 MG/DL (0.55-1.30)
[2019-08-17 09:07] LABS: CALCIUM LEVEL 9.3 MG/DL (8.8-10.2); GLOMERULAR FILTRATION RATE 38.2 (>39); POTASSIUM SERUM 2.6 MEQ/L (3.5-5.1)
[2019-08-17 16:05] LABS: CREATININE FOR GFR 1.56 MG/DL (0.55-1.30); GLOMERULAR FILTRATION RATE 34.3 (>39); POTASSIUM SERUM 2.8 MEQ/L (3.5-5.1)
== END ==
LOC: SKLAB4 10:08
PROVIDERS: ATTEND Internal Medicine
DX: I50.9 Heart failure, unspecified (principal)

== ENCOUNTER → 2019-08-18 | Outpatient (REF) ==
[~2019-08-18] MED LIST changes: +AMIO200T PO; -AMIO200T3 PO; -BIMA1SOL OU; -FLUC100T PO; -METO5TA PO; -PANT40TA29 PO; +PANT40TA3 PO
[2019-08-18 07:42] LABS: CALCIUM LEVEL 8.9 MG/DL (8.8-10.2); CREATININE FOR GFR 1.32 MG/DL (0.55-1.30); GLOMERULAR FILTRATION RATE 41.5 (>39); POTASSIUM SERUM 2.8 MEQ/L (3.5-5.1)
== END ==
LOC: SKLAB4 07:00
PROVIDERS: ATTEND Internal Medicine
DX: E87.6 Hypokalemia (principal)

== ENCOUNTER → 2019-08-19 | Outpatient (REF) | payer MEDICARE, OTHER ==
[2019-08-19 08:50] LABS: CALCIUM LEVEL 8.8 MG/DL (8.8-10.2); CREATININE FOR GFR 1.29 MG/DL (0.55-1.30); GLOMERULAR FILTRATION RATE 42.7 (>39); POTASSIUM SERUM 3.6 MEQ/L (3.5-5.1)
== END ==
LOC: SKLAB4 07:00
PROVIDERS: ATTEND Nurse Practitioner Family
DX: E87.6 Hypokalemia (principal)

== ENCOUNTER → 2019-08-20 | Outpatient (REF) | payer MEDICARE, OTHER ==
[2019-08-20 10:03] LABS: CALCIUM LEVEL 8.7 MG/DL (8.8-10.2); CREATININE FOR GFR 1.17 MG/DL (0.55-1.30); GLOMERULAR FILTRATION RATE 47.7 (>39); POTASSIUM SERUM 3.4 MEQ/L (3.5-5.1)
== END ==
LOC: SKLAB4 07:01
PROVIDERS: ATTEND Nurse Practitioner Family
DX: E11.9 Type 2 diabetes mellitus without complications (principal)

== ENCOUNTER → 2019-08-23 | Outpatient (CLI) | payer MEDICARE, OTHER ==
[2019-08-23 14:39] LABS: CALCIUM LEVEL 9.4 MG/DL (8.8-10.2); CREATININE FOR GFR 1.14 MG/DL (0.55-1.30); GLOMERULAR FILTRATION RATE 49.2 (>39); POTASSIUM SERUM 4.8 MEQ/L (3.5-5.1)
== END ==
LOC: M PLALAB 11:54
PROVIDERS: ATTEND Nurse Practitioner Family
DX: I50.30 Unspecified diastolic (congestive) heart failure (principal)

== ENCOUNTER → 2019-08-24 | Outpatient (REF) ==
[~2019-08-24] MED LIST changes: -AMIO200T PO; +AMIO200T3 PO; +BIMA1SOL OU; +FLUC100T PO; +METO5TA PO; +PANT40TA29 PO; -PANT40TA3 PO
== END ==
LOC: SKLAB4 10:09
PROVIDERS: ATTEND Internal Medicine
DX: I50.9 Heart failure, unspecified (principal)

== ENCOUNTER → 2019-08-29 | Outpatient (CLI) | payer MEDICARE, OTHER ==
[2019-08-29 12:08] LABS: HEMOGLOBIN A1c 8.1 %
[2019-08-29 12:27] LABS: ALBUMIN 3.3 GM/DL (3.2-5.2); BILIRUBIN,TOTAL 0.8 MG/DL (0.2-1.0); CALCIUM LEVEL 8.5 MG/DL (8.8-10.2); CHOLESTEROL RISK RATIO 2.42 (<5); CREATININE FOR GFR 1.14 MG/DL (0.55-1.30); GLOMERULAR FILTRATION RATE 49.2 (>39); POTASSIUM SERUM 4.1 MEQ/L (3.5-5.1); TOTAL PROTEIN 5.6 GM/DL (6.4-8.2)
== END ==
LOC: M LAB 11:29
PROVIDERS: ATTEND Family Medicine
DX: E11.69 Type 2 diabetes mellitus with other specified complication (principal); I50.42 Chronic combined sys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

== ENCOUNTER 2019-10-10 01:31 | Emergency (ER) | payer MEDICARE, OTHER ==
[~2019-10-10] VITALS: Ht 157.5 cm; Wt 118.2 kg
[~2019-10-10 01:31] MED LIST changes: -BIMA1SOL OU; -FLUC100T PO; -METO5TA PO
[2019-10-10] MEDS ORDERED: METF500T13 PO (01:40)
[2019-10-10] MEDS ORDERED: ADV500INH INH (01:40)
[2019-10-10 02:21] LABS: BASO % 0.2 % (0.0-1.0); EOS % 0.2 % (0.0-3.0); HEMATOCRIT 33.5 % (36.0-47.0); HEMOGLOBIN 10.3 g/dl (12.0-15.5); LYMPH # 1.2 10^3/uL (1.5-5.0); MEAN CORPUSCULAR HEMOGLOBIN 27.2 pg (27.0-33.0); MEAN CORPUSCULAR HGB CONC 30.7 g/dl (32.0-36.5); MEAN CORPUSCULAR VOLUME 88.4 fl (80.0-96.0); MONO # 0.5 10^3/uL (0.0-0.8); MONO % 5.9 % (0.0-5.0); NEUTROPHILS # 7.2 10^3/uL (1.5-8.5); PLATELET COUNT, AUTOMATED 155 10^3/uL (150-450); RED BLOOD COUNT 3.79 10^6/uL (4.00-5.40); VENOUS BASE EXCESS -0.8 (-2.0-2.0); VENOUS HCO3 24.3 MEQ/L (23.0-27.0); VENOUS PARTIAL PRESSURE CO2 42.1 mmHg (38.0-50.0); VENOUS PARTIAL PRESSURE O2 66.4 mmHg (30.0-50.0); VENOUS STANDARD HCO3 23.7 MEQ/L; VENOUS TOTAL CO2 24.3 MEQ/L (24.0-28.0)
[2019-10-10 02:22] LABS: VENOUS O2 SATURATION 91.3 % (60.0-80.0)
--- NOTE | 2019-10-10 02:40 | REPVR ---
PROCEDURE INFORMATION: Exam: XR Chest, 1 View Exam date and time: 10/10/2019 2:28 AM Age: 78 years old Clinical indication: Other: Dyspnea; Additional info: Dyspnea/cough TECHNIQUE: Imaging protocol: XR of the chest Views: 1 view. COMPARISON: [place] PORTABLE CHEST X-RAY 08/09/2019 1:16 AM FINDINGS: Tubes, catheters and devices: A pacemaker from the left is again noted. Lungs: The lungs are unchanged. There are no interval infiltrates. Pleural space: Unremarkable. No pleural effusion. No pneumothorax. Heart/Mediastinum: Mild cardiomegaly which is unchanged. Bones/joints: Unremarkable. IMPRESSION: Stable chest since 08/09/2019. No acute interval process is identified. Electronically signed by: Ashish Oneal On 10/10/2019 02:40:23 AM
--- NOTE | 2019-10-10 03:19 | REPVR ---
PROCEDURE INFORMATION: Exam: US Duplex Left Lower Extremity Veins, Limited Exam date and time: 10/10/2019 2:58 AM Age: 78 years old Clinical indication: Pain; Leg, upper and leg, lower; Left; Additional info: Dyspnea/cough TECHNIQUE: Imaging protocol: Real-time Duplex ultrasound of the Left Lower Extremity with 2-D navarro scale, color Doppler flow and spectral waveform analysis with image documentation. Limited exam focused on the left lower extremity veins. COMPARISON: US Duplex, Ext,LOWER veins,unilat 07/20/2019 5:19 AM FINDINGS: Left deep veins: Unremarkable. The common femoral, femoral, proximal profunda femoral and popliteal veins are patent without thrombus. Normal Doppler waveforms. Normal compressibility and/or augmentation response. Left superficial veins: Unremarkable. Saphenofemoral junction is patent without thrombus. Soft tissues: Unremarkable. IMPRESSION: Negative left lower extremity venous duplex exam without evidence of deep venous thrombosis. Electronically signed by: Ashish Oneal On 10/10/2019 03:19:18 AM
[2019-10-10 03:24] LABS: BLOOD UREA NITROGEN 17 MG/DL (7-18); CALCIUM LEVEL 9.6 MG/DL (8.8-10.2); CARBON DIOXIDE LEVEL 29 MEQ/L (21-32); CHLORIDE LEVEL 106 MEQ/L (98-107); CPK CREATINE PHOSPHOKINASE 25 U/L (26-192); CREATININE FOR GFR 1.25 MG/DL (0.55-1.30); GLOMERULAR FILTRATION RATE 44.2 (>39); GLUCOSE, FASTING 108 MG/DL (70-100); NT-PRO BNP 264 PG/ML (<450); POTASSIUM SERUM 3.9 MEQ/L (3.5-5.1); SODIUM LEVEL 141 MEQ/L (136-145); THYROXINE (T4) 8.4 UG/DL (4.5-12.0); TROPONIN I < 0.02 NG/ML (< 0.10)
[2019-10-10 03:55] LABS: ALBUMIN 3.4 GM/DL (3.2-5.2); ALT/SGPT 10 U/L (12-78); BILIRUBIN,DIRECT 0.2 MG/DL (0.0-0.2); BILIRUBIN,TOTAL 0.6 MG/DL (0.2-1.0); TOTAL PROTEIN 5.7 GM/DL (6.4-8.2)
[2019-10-10 04:33] VITALS: BP 125/72
--- NOTE | 2019-11-02 13:37 | ECGEPIP ---
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
== END 2019-10-10 04:34 | disposition home or self-care (01) ==
LOC: M ED 01:31
DX: L08.9 Local infection of the skin and subcutaneous tissue, unspecified (principal); I48.91 Unspecified atrial fibrillation; I11.9 Hypertensive heart disease without heart failure; D64.9 Anemia, unspecified; J44.9 Chronic obstructive pulmonary disease, unspecified; E66.9 Obesity, unspecified; Z68.42 Body mass index [BMI] 45.0-49.9, adult; Z79.899 Other long term (current) drug therapy; Z79.2 Long term (current) use of antibiotics; Z79.52 Long term (current) use of systemic steroids; Z79.01 Long term (current) use of anticoagulants; Z79.84 Long term (current) use of oral hypoglycemic drugs; Z79.51 Long term (current) use of inhaled steroids; Z88.0 Allergy status to penicillin; Z88.2 Allergy status to sulfonamides; Z88.1 Allergy status to other antibiotic agents; Z88.5 Allergy status to narcotic agent

== ENCOUNTER 2019-11-24 12:47 | Inpatient (IN) | payer MEDICARE, OTHER ==
[~2019-11-24] VITALS: Ht 157.5 cm; Wt 130.9 kg
[2019-11-24] MEDS ORDERED: FUROSEMIDE 40MG/4ML VIAL (J1940) IV ONE (13:30)
[2019-11-24 13:46] LABS: BASO % 0.5 % (0.0-1.0); EOS # 0.2 10^3/uL (0.0-0.5); EOS % 2.1 % (0.0-3.0); HEMATOCRIT 32.7 % (36.0-47.0); HEMOGLOBIN 9.7 g/dl (12.0-15.5); LYMPH # 0.9 10^3/uL (1.5-5.0); LYMPH % 10.7 % (24.0-44.0); MEAN CORPUSCULAR HEMOGLOBIN 26.9 pg (27.0-33.0); MEAN CORPUSCULAR HGB CONC 29.7 g/dl (32.0-36.5); MEAN CORPUSCULAR VOLUME 90.6 fl (80.0-96.0); MONO # 0.5 10^3/uL (0.0-0.8); MONO % 5.6 % (0.0-5.0); NEUTROPHILS # 6.6 10^3/uL (1.5-8.5); NEUTROPHILS % 80.5 % (36.0-66.0); PLATELET COUNT, AUTOMATED 158 10^3/uL (150-450); RED BLOOD COUNT 3.61 10^6/uL (4.00-5.40); WHITE BLOOD COUNT 8.2 10^3/uL (4.0-10.0)
--- NOTE | 2019-11-24 13:51 | REPVR ---
PROCEDURE INFORMATION: Exam: XR Chest, 1 View Exam date and time: 11/24/2019 1:32 PM Age: 78 years old Clinical indication: Shortness of breath; Additional info: Dyspnea/cough TECHNIQUE: Imaging protocol: XR of the chest Views: 1 view. COMPARISON: [facility] PORTABLE CHEST X-RAY 10/10/2019 2:23 AM FINDINGS: Tubes, catheters and devices: Dual lead cardiac pacemaker. Lungs: Unremarkable. No consolidation. Pleural space: Unremarkable. No pleural effusion. No pneumothorax. Heart/Mediastinum: Stable prominence of the cardiac silhouette. Vasculature: Calcification of the thoracic aorta. Bones/joints: Degenerative change of the spine. Chronic fracture deformity of the right humeral neck. IMPRESSION: No acute cardiopulmonary abnormality. Electronically signed by: Kizzy Moraes On 11/24/2019 13:50:28 PM
[2019-11-24 14:03] LABS: ERYTHROCYTE SEDIMENTATION RATE 11 mm/hr (0-30)
[2019-11-24 14:11] LABS: ALBUMIN 3.2 GM/DL (3.2-5.2); ALT/SGPT 12 U/L (12-78); BILIRUBIN,DIRECT 0.3 MG/DL (0.0-0.2); BILIRUBIN,TOTAL 0.9 MG/DL (0.2-1.0); BLOOD UREA NITROGEN 17 MG/DL (7-18); C REACTIVE PROTEIN QUANTITATIV 0.77 MG/DL (0.00-0.30); CALCIUM LEVEL 9.2 MG/DL (8.8-10.2); CARBON DIOXIDE LEVEL 30 MEQ/L (21-32); CHLORIDE LEVEL 105 MEQ/L (98-107); CK-MB VALUE MASS 1.2 NG/ML (<3.6); CPK CREATINE PHOSPHOKINASE 26 U/L (26-192); CREATININE FOR GFR 1.27 MG/DL (0.55-1.30); GLOMERULAR FILTRATION RATE 43.4 (>39); GLUCOSE, FASTING 139 MG/DL (70-100); MB/CK RELATIVE INDEX 4.62 (< OR =4); NT-PRO BNP 244 PG/ML (<450); SODIUM LEVEL 140 MEQ/L (136-145); TOTAL PROTEIN 5.5 GM/DL (6.4-8.2); TROPONIN I < 0.02 NG/ML (< 0.10)
[2019-11-24] MEDS: HumaLOG INSULIN (NovoLOG) PER UNIT SC SCH ×2 (17:30→23:30)
[2019-11-24] MEDS ORDERED: ACETAMINOPHEN TAB 650MG DOSE (2X325MG) PO PRN (17:45)
[2019-11-24] MEDS ORDERED: GLUCOSE 4GM CHEW TABLET PO PRN (18:00)
[2019-11-24] MEDS ORDERED: DEXTROSE 50% 50 ML SYRINGE IV PRN (18:00)
[2019-11-24] MEDS ORDERED: GLUCAGON INJ 1MG VIAL SC PRN (18:00)
--- NOTE | 2019-11-24 18:03 | HPEPDOC ---
General Date of Admission 11/24/19 Date of Service: Nov 24, 2019 Chief Complaint The patient is a 78-year-old female admitted with a reason for visit of Leg Infection/Sob. Source: Patient Exam Limitations: No limitations Severity: Moderate Associated Symptoms: Shortness of breath History of Present Illness 78-year-old female with past medical history of congestive heart failure, atrial fibrillation, status post permanent pacemaker placement, COPD and hypertension presents with shortness of breath. Patient stated that she has been having increased shortness of breath for past few days, she noticed increased leg swelling from the ankle to her knees. Dyspnea is worse with exertion, no other associated symptoms, denies chest pain, nausea, vomiting, abdominal pain or diarrhea. In ER patient was found to have no leukocytosis, chest x-ray showed no pleural effusion. BNP within normal limit Home Medications Scheduled Bimatoprost (Lumigan) 50 Drop/2.5 Ml [place], 1 DROP OU QHS, (Reported) Bupropion Hcl (Bupropion Xl) 150 Mg Tab, 150 MG PO DAILY, (Reported) Citalopram Hydrobromide (Celexa) 40 Mg Tab, 40 MG PO QHS, (Reported) Furosemide (Furosemide) 40 Mg Tablet, 40 MG PO BID, (Reported) Metformin HCl (Metformin HCl) 500 Mg Tablet, 500 MG PO QPM, (Reported) DINNER Potassium Chloride (Potassium Chloride) 20 Meq Tablet.er, 20 MEQ PO BID, (Reported) Prednisone (Prednisone) 5 Mg Tablet, 5 MG PO QHS, (Reported) Rivaroxaban (Xarelto) 20 Mg Tablet, 20 MG PO QHS, (Reported) Salmeterol/Fluticasone (Advair 500-50 Diskus) 1 Each Blst.w.dev, 1 PUFF INH BID, (Reported) Scheduled PRN Acetaminophen (Acetaminophen) 325 Mg Tablet, 650 MG PO Q6H PRN for PAIN, (Reported) Acetaminophen/Diphenhydramine (Acetaminophen Pm Caplet) 1 Each Tablet, 2 TAB PO QHS PRN for SLEEP, (Reported) Albuterol Sulfate (Proair Hfa) 108 Mcg/Act Aer, 2 PUFF INH Q4H PRN for SOB/WHEEZING, (Reported) Allergies Coded Allergies: Penicillins (Verified Allergy, Mild, RASH, 11/24/19) Sulfa (Sulfonamide Antibiotics) (Verified Allergy, Mild, RASH, 11/24/19) clindamycin (Verified Allergy, Mild, RASH, 11/24/19) codeine (Verified Allergy, Mild, STOMACH UPSET, RASH, 11/24/19) meperidine (Verified Allergy, Mild, STOMACH UPSET, RASH, 11/24/19) Past Medical History Medical History 1. Congestive diastolic heart failure. 2. Atrial fibrillation. 3. COPD. 4. Hypertension Chronic kidney diseases COPD Chronic anemia Obstructive sleep apnea Morbid obesity Surgical History 1. Multiple orthopedic surgeries. 2. Permanent pacemaker placement Family History I personally reviewed family history and found not pertinent Social History * Smoker: former Smoker Alcohol: Denies Drugs: denies A-FIB/CHADSVASC A-FIB History Current/History of A-Fib/PAF?: Yes Current PO Anticoag Therapy: Yes Review of Systems Constitutional: Denies: Chills, Fever, Malaise Eyes: Denies: Pain, Vision change ENT: Denies: Head Aches, Ear Pain Skin: Denies: Rash, Lesions Pulmonary: Reports: Dyspnea Cardiovascular: Denies: Chest Pain, Palpitations Gastrointestinal: Denies: Nausea, Vomiting Genitourinary: Denies: Dysuria, Frequency Hematologic: Denies: Bruising Endocrine: Denies: Polydipsia, Polyphagia Musculoskeletal: Denies: Neck Pain Neurological: Denies: Weakness, Numbness Physical Examination General Exam: Positive: Alert, Cooperative Eye Exam: Positive: PERRLA, Conjunctiva & lids normal ENT Exam: Positive: Atraumatic Neck Exam: Positive: Supple, JVD Heart Exam: Positive: Irregular Rhythm Telemetry: Positive: Atrial fibrillation Extremity Exam: Positive: Edema (bilaterally of lower extremities); Negative: Clubbing, Cyanosis Skin Exam: Positive: Nl turgor and temperature Neuro Exam: Positive: Strength at 5/5 X4 ext, Cranial Nerves 3-12 NL Vital Signs Vital Signs Date Time Temp Pulse Resp B/P (MAP) Pulse Ox O2 Delivery O2 Flow Rate FiO2 11/24/19 16:02 77 20 92 Room Air 11/24/19 15:45 141/63 (89) 11/24/19 14:47 2.0 11/24/19 12:48 96.8 Laboratory Data Labs 24H Laboratory Tests 2 11/24/19 13:17: Immature Granulocyte % (Auto) 0.6, Neutrophils (%) (Auto) 80.5H, Lymphocytes (%) (Auto) 10.7L, Monocytes (%) (Auto) 5.6H, Eosinophils (%) (Auto) 2.1, Basophils (%) (Auto) 0.5, Neutrophils # (Auto) 6.6, Lymphocytes # (Auto) 0.9L, Monocytes # (Auto) 0.5, Eosinophils # (Auto) 0.2, Basophils # (Auto) 0.0, Nucleated Red Blood Cells % (auto) 0.0, Erythrocyte Sedimentation Rate 11, Anion Gap 5L, Glomerular Filtration Rate 43.4, Calcium Level 9.2, Total Bilirubin 0.9, Direct Bilirubin 0.3H, Aspartate Amino Transf (AST/SGOT) 7, Alanine Aminotransferase (ALT/SGPT) 12, Alkaline Phosphatase 56, Total Creatine Kinase 26, Creatine Kinas e MB 1.2, Creatine Kinase MB Relative Index 4.62H, Troponin I < 0.02, C-Reactive Protein, Quantitative 0.77H, QQ-Zuw-Y-Type Natriuretic Peptide 244, Total Protein 5.5L, Albumin 3.2, Albumin/Globulin Ratio 1.4, Thyroid Stimulating Hormone (TSH) 2.460 CBC/BMP Laboratory Tests 11/24/19 13:17 Microbiology Microbiology 11/24/19 Blood Culture, Received Pending 11/24/19 Blood Culture, Received Pending Assessment/Plan 78-year-old female with past medical history of congestive heart failure, atrial fibrillation, status post permanent pacemaker placement, COPD and hypertension presents with shortness of breath. Patient stated that she has been having increased shortness of breath for past few days, she noticed increased leg swelling from the ankle to her knees. Dyspnea is worse with exertion, no other associated symptoms, denies chest pain, nausea, vomiting, abdominal pain or diarrhea. In ER patient was found to have no leukocytosis, chest x-ray showed no pleural effusion. BNP within normal limit Problems (1) CHF exacerbation Status: Acute Problem Text: Diastolic CHF exacerbation I's and O's Cardiac diet Lasix IV Previous echo was done in July 2019 and showed Very mild concentric left ventricle hypertrophy. Normal regional LV wall motion and wall thickening. Normal LV systolic function. LVEF 65% by visual estimate. Grade 2 LV diastolic function (pseudo normal filling pattern). We'll repeat echo (2) Obesity Status: Chronic Problem Text: Complicated care (3) EDGARD (obstructive sleep apnea) Status: Chronic Problem Text: CPAP overnight (4) Diabetes Status: Chronic Problem Text: Insulin sliding scale Diabetes diet (5) HTN (hypertension) Status: Chronic Problem Text: Continue home cardioprotective medications (6) Atrial fibrillation Status: Chronic Problem Text: Heart rate under control Continue oral targeted anticoagulation (7) COPD (chronic obstructive pulmonary disease) Status: Chronic Problem Text: Not in acute exacerbation Continue inhalers Plan / VTE VTE Prophylaxis Ordered?: Yes LIZZ ÁLVAREZ DO Nov 24, 2019 18:03
--- NOTE | 2019-11-24 18:35 | ECGEPIP ---
[place] - ED Test Date: 2019-11-24 Pat Name: MYAH DEAL Department: Room: - Gender: Female Health Care / Medical Job Titles: JRosa : 1940 Requested By: JONES Almonte Order Number: [id number] Reading MD: Starr Farris Measurements Intervals [place] Rate: 70 P: 190 WV: 187 QRS: 16 QRSD: 104 T: 49 QT: 384 QTc: 415 Interpretive Statements ELECTRONIC ATRIAL PACEMAKER NONSPECIFIC ST & T-WAVE ABNORMALITY ABNORMAL RHYTHM ECG PRIOR NOT PACED 10/10/19 Electronically Signed on 11-24-2019 18:34:52 EDT by Starr Farris
[2019-11-24] MEDS: IPRATROPIUM 0.5MG/ALBUTEROL 2.5MG INH SOL UD 3ML (DUONEB) NEB SCH (19:51)
[2019-11-24] MEDS: CitaloPRAM (CeleXA) 20 MG TAB PO SCH (21:00)
[2019-11-24] MEDS: predniSONE 5 MG TAB PO SCH (23:41)
[2019-11-24] MEDS: POTASSIUM CHLORIDE 10 MEQ SR TABLET PO SCH (23:42)
[2019-11-24] MEDS: RIVAROXABAN 20 MG TAB (XARELTO) PO SCH (23:42)
[2019-11-25] MEDS: IPRATROPIUM 0.5MG/ALBUTEROL 2.5MG INH SOL UD 3ML (DUONEB) NEB SCH ×4 (01:15→20:00)
[2019-11-25 06:43] LABS: HEMOGLOBIN 9.5 g/dl (12.0-15.5); MEAN CORPUSCULAR HEMOGLOBIN 27.7 pg (27.0-33.0); MEAN CORPUSCULAR HGB CONC 30.6 g/dl (32.0-36.5); MEAN CORPUSCULAR VOLUME 90.4 fl (80.0-96.0); PLATELET COUNT, AUTOMATED 140 10^3/uL (150-450); RED BLOOD COUNT 3.43 10^6/uL (4.00-5.40); WHITE BLOOD COUNT 6.8 10^3/uL (4.0-10.0)
[2019-11-25 07:12] LABS: ALBUMIN 3.1 GM/DL (3.2-5.2); BILIRUBIN,TOTAL 0.8 MG/DL (0.2-1.0); CREATININE FOR GFR 1.17 MG/DL (0.55-1.30); GLOMERULAR FILTRATION RATE 47.7 (>39); POTASSIUM SERUM 4.1 MEQ/L (3.5-5.1); TOTAL PROTEIN 5.4 GM/DL (6.4-8.2)
[2019-11-25] MEDS: HumaLOG INSULIN (NovoLOG) PER UNIT SC SCH ×4 (07:30→21:00)
[2019-11-25] MEDS: POTASSIUM CHLORIDE 10 MEQ SR TABLET PO SCH ×2 (08:43→20:01)
[2019-11-25] MEDS: buPROPion **XL** TABLET 150MG (WELLBUTRIN XL) PO SCH (08:43)
[2019-11-25] MEDS ORDERED: FUROSEMIDE 20MG/2ML VIAL (J1940) IV ONE (09:00)
--- NOTE | 2019-11-25 12:54 | IPNPDOC ---
Text Note Date of Service The patient was seen on 11/25/19. NOTE Subjective: No any acute events overnight. Patient stated that her breathing is better today Objective: GENERAL APPEARANCE: NAD HEENT: no scleral icterus, + JVD, EOMI CARDIOVASCULAR: Irregularly irregular LUNGS: Diminished lung sounds ABDOMEN: Obese, soft & not tender w palpitation MUSCULOSKELETAL: no cyanosis, no swelling, +2 pitting edema INTEGUMENT: no generalized palor NEUROLOGICAL: cranial nerve function from 2-12 intact intact, follows commands, speech not dysarthric 78-year-old female with past medical history of congestive heart failure, atrial fibrillation, status post permanent pacemaker placement, COPD and hypertension presents with shortness of breath. Patient stated that she has been having increased shortness of breath for past few days, she noticed increased leg swelling from the ankle to her knees. Dyspnea is worse with exertion, no other associated symptoms, denies chest pain, nausea, vomiting, abdominal pain or diarrhea. In ER patient was found to have no leukocytosis, chest x-ray showed no pleural effusion. BNP within normal limit (1) CHF exacerbation Diastolic CHF exacerbation I's and O's Cardiac diet Lasix IV Previous Echo was done in July 2019 and showed Very mild concentric left ventricle hypertrophy. Normal regional LV wall motion and wall thickening. Normal LV systolic function. LVEF 65% by visual estimate. Grade 2 LV diastolic function (pseudo normal filling pattern). echo pending (2) Obesity Complicated care (3) EDGARD (obstructive sleep apnea) CPAP overnight (4) Diabetes Insulin sliding scale Diabetes diet (5) HTN (hypertension) Continue home cardioprotective medications (6) Atrial fibrillation Heart rate under control Continue oral targeted anticoagulation (7) COPD (chronic obstructive pulmonary disease) Not in acute exacerbation Continue inhalers CKD stage III Continue to monitor Deconditioning Secondary to morbid obesity and multiple comorbidities PT/OT VS,Fishbone, I+O VS, Fishbone, I+O Laboratory Tests 11/24/19 13:17 11/25/19 06:21 Vital Signs Date Time Temp Pulse Resp B/P (MAP) Pulse Ox O2 Delivery O2 Flow Rate FiO2 11/25/19 04:30 98.5 80 20 93 Room Air 11/25/19 04:18 142/78 (99) 11/24/19 14:47 2.0 I&O- Last 24 Hours up to 6 AM 10/8/20 06:00 Output Total 200 ml Balance -200 ml LIZZ ÁLVAREZ DO Nov 25, 2019 12:54
[2019-11-25] MEDS ORDERED: NYSTATIN 100,000 UNITS/GM TOPICAL PWD 15 GM TOP PRN (13:30)
[2019-11-25 14:00] VITALS: BP 144/58
[2019-11-25] MEDS: RIVAROXABAN 20 MG TAB (XARELTO) PO SCH (17:37)
[2019-11-25] MEDS ORDERED: FUROSEMIDE 40MG/4ML VIAL (J1940) IV SCH (18:00)
[2019-11-25] MEDS: CitaloPRAM (CeleXA) 20 MG TAB PO SCH (20:02)
[2019-11-25] MEDS: predniSONE 5 MG TAB PO SCH (20:02)
[2019-11-25 22:00] VITALS: BP 134/56
[2019-11-26] MEDS: IPRATROPIUM 0.5MG/ALBUTEROL 2.5MG INH SOL UD 3ML (DUONEB) NEB SCH ×4 (00:08→20:00)
[2019-11-26 06:00] VITALS: BP 148/58
[2019-11-26] MEDS: FUROSEMIDE 40MG/4ML VIAL (J1940) IV SCH ×2 (08:45→17:45)
[2019-11-26] MEDS: buPROPion **XL** TABLET 150MG (WELLBUTRIN XL) PO SCH (08:45)
[2019-11-26 08:46] LABS: BASO % 0.4 % (0.0-1.0); EOS # 0.1 10^3/uL (0.0-0.5); EOS % 1.9 % (0.0-3.0); HEMATOCRIT 33.5 % (36.0-47.0); HEMOGLOBIN 9.8 g/dl (12.0-15.5); LYMPH % 14.2 % (24.0-44.0); MEAN CORPUSCULAR HEMOGLOBIN 26.8 pg (27.0-33.0); MEAN CORPUSCULAR HGB CONC 29.3 g/dl (32.0-36.5); MEAN CORPUSCULAR VOLUME 91.5 fl (80.0-96.0); MONO # 0.4 10^3/uL (0.0-0.8); MONO % 5.8 % (0.0-5.0); NEUTROPHILS # 5.6 10^3/uL (1.5-8.5); NEUTROPHILS % 76.9 % (36.0-66.0); PLATELET COUNT, AUTOMATED 145 10^3/uL (150-450); RED BLOOD COUNT 3.66 10^6/uL (4.00-5.40); WHITE BLOOD COUNT 7.2 10^3/uL (4.0-10.0)
[2019-11-26] MEDS: POTASSIUM CHLORIDE 10 MEQ SR TABLET PO SCH ×2 (08:46→21:12)
[2019-11-26] MEDS: HumaLOG INSULIN (NovoLOG) PER UNIT SC SCH ×4 (08:47→21:00)
[2019-11-26 09:06] LABS: CALCIUM LEVEL 8.9 MG/DL (8.8-10.2); CREATININE FOR GFR 1.19 MG/DL (0.55-1.30); GLOMERULAR FILTRATION RATE 46.8 (>39); POTASSIUM SERUM 4.1 MEQ/L (3.5-5.1)
--- NOTE | 2019-11-26 13:09 | IPNPDOC ---
Text Note Date of Service The patient was seen on 11/26/19. NOTE Subjective: No any acute events overnight. Patient stated that her breathing continues to improve Objective: GENERAL APPEARANCE: NAD HEENT: no scleral icterus, + JVD, EOMI CARDIOVASCULAR: Irregularly irregular LUNGS: Diminished lung sounds ABDOMEN: Obese, soft & not tender w palpitation MUSCULOSKELETAL: no cyanosis, no swelling, +2 pitting edema INTEGUMENT: no generalized palor NEUROLOGICAL: cranial nerve function from 2-12 intact intact, follows commands, speech not dysarthric 78-year-old female with past medical history of congestive heart failure, atrial fibrillation, status post permanent pacemaker placement, COPD and hypertension presents with shortness of breath. Patient stated that she has been having increased shortness of breath for past few days, she noticed increased leg swelling from the ankle to her knees. Dyspnea is worse with exertion, no other associated symptoms, denies chest pain, nausea, vomiting, abdominal pain or di arrhea. In ER patient was found to have no leukocytosis, chest x-ray showed no pleural effusion. BNP within normal limit (1) CHF exacerbation Diastolic CHF exacerbation I's and O's Cardiac diet Lasix IV Previous Echo was done in July 2019 and showed Very mild concentric left ventricle hypertrophy. Normal regional LV wall motion and wall thickening. Normal LV systolic function. LVEF 65% by visual estimate. Grade 2 LV diastolic function (pseudo normal filling pattern). (2) Obesity Complicated care (3) EDGARD (obstructive sleep apnea) CPAP overnight (4) Diabetes Insulin sliding scale Diabetes diet (5) HTN (hypertension) Continue home cardioprotective medications (6) Atrial fibrillation Heart rate under control Continue oral targeted anticoagulation (7) COPD (chronic obstructive pulmonary disease) Not in acute exacerbation Continue inhalers CKD stage III Continue to monitor Deconditioning Secondary to morbid obesity and multiple comorbidities PT/OT VS,Fishbone, I+O VS, Fishbone, I+O Laboratory Tests 11/26/19 08:31 Vital Signs Date Time Temp Pulse Resp B/P (MAP) Pulse Ox O2 Delivery O2 Flow Rate FiO2 11/26/19 06:00 98.8 77 20 148/58 (88) 95 Room Air 11/24/19 14:47 2.0 I&O- Last 24 Hours up to 6 AM 11/26/19 06:00 Intake Total 1650 ml Output Total 1900 ml Balance -250 ml DROZHZHIN,LIZZ DO Nov 26, 2019 13:09
[2019-11-26 14:00] VITALS: BP 160/69
[2019-11-26] MEDS ORDERED: FUROSEMIDE 40MG/4ML VIAL (J1940) IV SCH (17:00)
[2019-11-26] MEDS: RIVAROXABAN 20 MG TAB (XARELTO) PO SCH (17:45)
[2019-11-26] MEDS: CitaloPRAM (CeleXA) 20 MG TAB PO SCH (21:12)
[2019-11-26] MEDS: predniSONE 5 MG TAB PO SCH (21:12)
[2019-11-26] MEDS ORDERED: FUROSEMIDE 20MG/2ML VIAL (J1940) IV ONE (21:45)
[2019-11-26 22:00] VITALS: BP 123/58
[2019-11-26] MEDS ORDERED: IPRATROPIUM 0.5MG/ALBUTEROL 2.5MG INH SOL UD 3ML (DUONEB) NEB ONE (23:15)
[2019-11-27] MEDS: IPRATROPIUM 0.5MG/ALBUTEROL 2.5MG INH SOL UD 3ML (DUONEB) NEB SCH ×2 (02:00→07:48)
[2019-11-27] MEDS: FUROSEMIDE 40MG/4ML VIAL (J1940) IV SCH ×2 (02:45→09:38)
[2019-11-27 06:00] VITALS: BP 131/65
[2019-11-27] MEDS: buPROPion **XL** TABLET 150MG (WELLBUTRIN XL) PO SCH (09:38)
[2019-11-27] MEDS: POTASSIUM CHLORIDE 10 MEQ SR TABLET PO SCH (09:38)
[2019-11-27] MEDS: HumaLOG INSULIN (NovoLOG) PER UNIT SC SCH (09:39)
[2019-11-27] MEDS ORDERED: TORS20TA2 PO ×2 (09:40→11:36)
--- NOTE | 2019-11-27 13:37 | DS.PDOC ---
Discharge Summary General Date of Admission Nov 24, 2019 at 17:44 Date of Discharge 11/27/19 Discharge Summary PROCEDURES PERFORMED DURING STAY: [None]. ADMITTING DIAGNOSES: CHF exacerbation Obesity Diabetes HTN Atrial fibrillation COPD CKD stage III Deconditioning DISCHARGE DIAGNOSES: CHF exacerbation Obesity Diabetes HTN Atrial fibrillation COPD CKD stage III Deconditioning COMPLICATIONS/CHIEF COMPLAINT: Chf Exacerbation. HISTORY OF PRESENT ILLNESS: 78-year-old female with past medical history of congestive heart failure, atrial fibrillation, status post permanent pacemaker placement, COPD and hypertension presents with shortness of breath. Patient stated that she has been having increased shortness of breath for past few days, she noticed increased leg swelling from the ankle to her knees. Dyspnea is worse with exertion, no other associated symptoms, denies chest pain, nausea, vomiting, abdominal pain or diarrhea. In ER patient was found to have no leukocytosis, chest x-ray showed no pleural effusion. BNP within normal limit HOSPITAL COURSE: During hospital stay following issues addressed (1) CHF exacerbation Diastolic CHF exacerbation I's and O's Cardiac diet Lasix IV Previous Echo was done in July 2019 and showed Very mild concentric left ventricle hypertrophy. Normal regional LV wall motion and wall thickening. Normal LV systolic function. LVEF 65% by visual estimate. Grade 2 LV diastolic function (pseudo normal filling pattern). (2) Obesity Complicated care (3) EDGARD (obstructive sleep apnea) CPAP overnight (4) Diabetes Insulin sliding scale Diabetes diet (5) HTN (hypertension) Continue home cardioprotective medications (6) Atrial fibrillation Heart rate under control Continue oral targeted anticoagulation (7) COPD (chronic obstructive pulmonary disease) Not in acute exacerbation Continue inhalers CKD stage III Continue to monitor Deconditioning Secondary to morbid obesity and multiple comorbidities PT/OT DISCHARGE MEDICATIONS: Please see below. ALLERGIES: Please see below. PHYSICAL EXAMINATION ON DISCHARGE: VITAL SIGNS: Please see below. GENERAL APPEARANCE: NAD HEENT: no scleral icterus, + JVD, EOMI CARDIOVASCULAR: Irregularly irregular LUNGS: Diminished lung sounds ABDOMEN: Obese, soft & not tender w palpitation MUSCULOSKELETAL: no cyanosis, no swelling, +2 pitting edema INTEGUMENT: no generalized palor NEUROLOGICAL: cranial nerve function from 2-12 intact intact, follows commands, speech not dysarthric LABORATORY DATA: Please see below. IMAGING: PROCEDURE INFORMATION: Exam: XR Chest, 1 View Exam date and time: 11/24/2019 1:32 PM Age: 78 years old Clinical indication: Shortness of breath; Additional info: Dyspnea/cough TECHNIQUE: Imaging protocol: XR of the chest Views: 1 view. COMPARISON: CR PORTABLE CHEST X-RAY 10/10/2019 2:23 AM FINDINGS: Tubes, catheters and devices: Dual lead cardiac pacemaker. Lungs: Unremarkable. No consolidation. Pleural space: Unremarkable. No pleural effusion. No pneumothorax. Heart/Mediastinum: Stable prominence of the cardiac silhouette. Vasculature: Calcification of the thoracic aorta. Bones/joints: Degenerative change of the spine. Chronic fracture deformity of the right humeral neck. IMPRESSION: No acute cardiopulmonary abnormality. PROGNOSIS: Fair ACTIVITY: [As tolerated]. DIET: Cardiac DISPOSITION: Home, Self-Care. DISCHARGE INSTRUCTIONS: Follow-up with health club manager and PCP in one week DISCHARGE CONDITION: [Stable]. TIME SPENT ON DISCHARGE: Greater than 20 minutes. Vital Signs/I&Os Vital Signs Date Time Temp Pulse Resp B/P (MAP) Pulse Ox O2 Delivery O2 Flow Rate FiO2 11/27/19 06:00 98.9 75 23 131/65 (87) 94 Room Air 11/24/19 14:47 2.0 I&O- Last 24 Hours up to 6 AM 11/27/19 06:00 Intake Total 1590 ml Output Total 2750 ml Balance -1160 ml Laboratory Data Labs 24H Laboratory Tests 2 11/26/19 16:41: Bedside Glucose (Misc Panel) 137H 11/26/19 20:08: Bedside Glucose (Misc Panel) 144H 11/27/19 06:46: Bedside Glucose (Misc Panel) 157H FSBS Laboratory Tests Test 11/26/19 16:41 11/26/19 20:08 11/27/19 06:46 Range/Units Bedside Glucose (Misc Panel) 137 144 157 83-110 MG/DL Microbiology Microbiology 11/24/19 Blood Culture - Preliminary, Resulted No Growth after 48 hours. All Specime... 11/24/19 Blood Culture - Preliminary, Resulted No Growth after 48 hours. All Specime... Discharge Medications Scheduled Bimatoprost (Lumigan) 50 Drop/2.5 Ml [place], 1 DROP OU QHS, (Reported) Bupropion Hcl (Bupropion Xl) 150 Mg Tab, 150 MG PO DAILY, (Reported) Citalopram Hydrobromide (Celexa) 40 Mg Tab, 40 MG PO QHS, (Reported) Metformin HCl (Metformin HCl) 500 Mg Tablet, 500 MG PO QPM, (Reported) DINNER Potassium Chloride (Potassium Chloride) 20 Meq Tablet.er, 20 MEQ PO BID, (Reported) Prednisone (Prednisone) 5 Mg Tablet, 5 MG PO QHS, (Reported) Rivaroxaban (Xarelto) 20 Mg Tablet, 20 MG PO QHS, (Reported) Salmeterol/Fluticasone (Advair 500-50 Diskus) 1 Each Blst.w.dev, 1 PUFF INH BID, (Reported) Torsemide (Torsemide) 20 Mg Tablet, 1 TAB PO BID Torsemide (Torsemide) 20 Mg Tablet, 1 TAB PO BID Scheduled PRN Acetaminophen (Acetaminophen) 325 Mg Tablet, 650 MG PO Q6H PRN for PAIN, (Reported) Acetaminophen/Diphenhydramine (Acetaminophen Pm Caplet) 1 Each Tablet, 2 TAB PO QHS PRN for SLEEP, (Reported) Albuterol Sulfate (Proair Hfa) 108 Mcg/Act Aer, 2 PUFF INH Q4H PRN for SOB/WHEEZING, (Reported) Allergies Coded Allergies: Penicillins (Verified Allergy, Mild, RASH, 11/24/19) Sulfa (Sulfonamide Antibiotics) (Verified Allergy, Mild, RASH, 11/24/19) clindamycin (Verified Allergy, Mild, RASH, 11/24/19) codeine (Verified Allergy, Mild, STOMACH UPSET, RASH, 11/24/19) meperidine (Verified Allergy, Mild, STOMACH UPSET, RASH, 11/24/19) LIZZ ÁLVAREZ DO Nov 27, 2019 13:37
== END 2019-11-27 12:44 | disposition home or self-care (01) | DRG 291 ==
LOC: M ED 12:47 → M ED INP 17:44 → M MSPAV 11-25 04:27
PROVIDERS: ADMIT Internal Medicine; ATTEND Internal Medicine
DX: I13.0 Hypertensive heart and chronic kidney disease with heart failure and stage 1 through stage 4 chronic kidney disease, or unspecified chronic kidney disease (principal); I50.33 Acute on chronic diastolic (congestive) heart failure; I48.20 Chronic atrial fibrillation, unspecified; Z68.43 Body mass index [BMI] 50.0-59.9, adult; G47.33 Obstructive sleep apnea (adult) (pediatric); E11.22 Type 2 diabetes mellitus with diabetic chronic kidney disease; J44.9 Chronic obstructive pulmonary disease, unspecified; E66.01 Morbid (severe) obesity due to excess calories; N18.30 Chronic kidney disease, stage 3 unspecified; Z95.0 Presence of cardiac pacemaker; Z79.84 Long term (current) use of oral hypoglycemic drugs; Z79.899 Other long term (current) drug therapy; Z79.01 Long term (current) use of anticoagulants; Z88.0 Allergy status to penicillin; Z88.1 Allergy status to other antibiotic agents; Z88.2 Allergy status to sulfonamides; Z88.5 Allergy status to narcotic agent; Z88.8 Allergy status to other drugs, medicaments and biological substances

== ENCOUNTER 2019-12-02 17:08 | Inpatient (IN) | payer MEDICARE, OTHER ==
[~2019-12-02] VITALS: Ht 157.5 cm; Wt 118.0 kg
[2019-12-02] MEDS ORDERED: BIMA1SOL OU (17:36)
--- NOTE | 2019-12-02 17:57 | REPVR ---
PROCEDURE INFORMATION: Exam: XR Chest, 1 View Exam date and time: 12/02/2019 5:29 PM Age: 78 years old Clinical indication: Dyspnea; Additional info: Dyspnea/cough TECHNIQUE: Imaging protocol: XR of the chest Views: 1 view. COMPARISON: CR PORTABLE CHEST X-RAY 11/24/2019 1:27 PM FINDINGS: Tubes, catheters and devices: Dual chamber cardiac pacer demonstrated with intact pacer wires. Lungs: Mild prominence of the pulmonary vascularity. Findings may indicate the presence of CHF. Pleural space: Unremarkable. No pleural effusion. No pneumothorax. Heart/Mediastinum: Cardiomegaly. Bones/joints: Unremarkable. IMPRESSION: 1. Cardiomegaly. 2. Mild prominence of the pulmonary vascularity. Findings may indicate the presence of CHF. Electronically signed by: Ang Kruger On 12/02/2019 17:57:51 PM
[2019-12-02] MEDS ORDERED: FUROSEMIDE 100MG/10ML VIAL (J1940) IV ONE (18:15)
[2019-12-02] MEDS ORDERED: TORS20TA2 PO (18:52)
--- NOTE | 2019-12-02 19:03 | REPVR ---
PROCEDURE INFORMATION: Exam: US Duplex Left Lower Extremity Veins, Limited Exam date and time: 12/02/2019 6:47 PM Age: 78 years old Clinical indication: Pain; Leg, lower; Left; Additional info: Swelling TECHNIQUE: Imaging protocol: Real-time Duplex ultrasound of the Left Lower Extremity with 2-D navarro scale, color Doppler flow and spectral waveform analysis with image documentation. Limited exam focused on the left lower extremity veins. COMPARISON: US Duplex, Ext,LOWER veins,unilat 10/10/2019 2:58 AM FINDINGS: Left deep veins: Unremarkable. The common femoral, femoral, proximal profunda femoral and popliteal veins are patent without thrombus. Normal Doppler waveforms. Normal compressibility and/or augmentation response. Left superficial veins: Unremarkable. Saphenofemoral junction is patent without thrombus. Soft tissues: Lower leg edema. IMPRESSION: Lower leg edema. No DVT. Electronically signed by: Ang Kruger On 12/02/2019 19:02:41 PM
[2019-12-02 19:18] LABS: VENOUS BASE EXCESS 3.9 (-2.0-2.0); VENOUS HCO3 27.4 MEQ/L (23.0-27.0); VENOUS O2 SATURATION 98.9 % (60.0-80.0); VENOUS PARTIAL PRESSURE CO2 37.5 mmHg (38.0-50.0); VENOUS PARTIAL PRESSURE O2 135.7 mmHg (30.0-50.0); VENOUS PH 7.482 UNITS (7.330-7.430); VENOUS TOTAL CO2 28.6 MEQ/L (24.0-28.0)
[2019-12-02] MEDS ORDERED: ACETAMINOPHEN TAB 650MG DOSE (2X325MG) PO PRN (19:30)
[2019-12-02 19:31] LABS: BASO % 0.5 % (0.0-1.0); EOS # 0.2 10^3/uL (0.0-0.5); EOS % 1.9 % (0.0-3.0); HEMATOCRIT 32.9 % (36.0-47.0); LYMPH % 10.9 % (24.0-44.0); MEAN CORPUSCULAR HEMOGLOBIN 27.2 pg (27.0-33.0); MEAN CORPUSCULAR HGB CONC 30.4 g/dl (32.0-36.5); MEAN CORPUSCULAR VOLUME 89.6 fl (80.0-96.0); MONO # 0.6 10^3/uL (0.0-0.8); MONO % 7.1 % (0.0-5.0); NEUTROPHILS # 6.9 10^3/uL (1.5-8.5); PLATELET COUNT, AUTOMATED 169 10^3/uL (150-450); RED BLOOD COUNT 3.67 10^6/uL (4.00-5.40); WHITE BLOOD COUNT 8.8 10^3/uL (4.0-10.0)
--- NOTE | 2019-12-02 19:33 | HPEPDOC ---
General Date of Admission Date of Service: Dec 02, 2019 Attending Physician: LIZZ ÁLVAREZ DO Chief Complaint The patient is a 78-year-old female admitted with a reason for visit of Short Of Breath. History of Present Illness HPI: Pt is a 78 y/o elderly female who presents with cc of sob x 1 day. Pt has frequent CHF exacerbations and was recently discharged from [facility] 11/23 for an exacerbation. Pt states that she started feeling short of breath yesterday and leg swelling is worse than ever. She states that her leg leg has sores and blisters from the fluid stasis. Denies CP, abdominal pain, n/v/d, fever, chills. PMHX: Diastolic CHF DM2 Atrial fibrillation on xarelto COPD HTN CKD COPD Chronic anemia EDGARD Morbid obesity Surgical Hx: Multiple orthopedic surgeries. Permanent pacemaker placement Social hx: former smoker; denies ETOH and illicit drugs ALL: see below Home meds: see below LABS: see below IMAGING U/S LLE veins: NO DVTs CXR: Cardiomegaly; mild prominence of pulm vascularity, consistent with CHF pattern Home Medications Scheduled Bimatoprost (Bimatoprost) 0.03% 2.5ML Drops, 1 DROP OU BID, (Reported) Bupropion Hcl (Bupropion Xl) 150 Mg Tab, 150 MG PO DAILY, (Reported) Citalopram Hydrobromide (Celexa) 40 Mg Tab, 40 MG PO DAILY, (Reported) Metformin HCl (Metformin HCl) 500 Mg Tablet, 500 MG PO QPM, (Reported) DINNER Potassium Chloride (Potassium Chloride) 20 Meq Tablet.er, 20 MEQ PO BID, (Reported) Prednisone (Prednisone) 5 Mg Tablet, 5 MG PO QHS, (Reported) Rivaroxaban (Xarelto) 20 Mg Tablet, 20 MG PO QHS, (Reported) Salmeterol/Fluticasone (Advair 500-50 Diskus) 1 Each Blst.w.dev, 1 PUFF INH BID, (Reported) Torsemide (Torsemide) 20 Mg Tablet, 20 MG PO BID, (Reported) TAKES AM/PM Scheduled PRN Acetaminophen (Acetaminophen) 325 Mg Tablet, 650 MG PO Q6H PRN for PAIN, (Reported) Acetaminophen/Diphenhydramine (Acetaminophen Pm Caplet) 1 Each Tablet, 2 TAB PO QHS PRN for SLEEP, (Reported) Albuterol Sulfate (Proair Hfa) 108 Mcg/Act Aer, 2 PUFF INH Q4H PRN for SOB/WHEEZING, (Reported) Allergies Coded Allergies: Penicillins (Verified Allergy, Mild, RASH, 11/24/19) Sulfa (Sulfonamide Antibiotics) (Verified Allergy, Mild, RASH, 11/24/19) clindamycin (Verified Allergy, Mild, RASH, 11/24/19) codeine (Verified Allergy, Mild, STOMACH UPSET, RASH, 11/24/19) meperidine (Verified Allergy, Mild, STOMACH UPSET, RASH, 11/24/19) A-FIB/CHADSVASC A-FIB History Current/History of A-Fib/PAF?: Yes Current PO Anticoag Therapy: Yes Review of Systems Constitutional: Denies: Chills, Malaise, Night Sweats, Weakness Eyes: Denies: Pain ENT: Denies: Head Aches, Dysphagia Skin: Reports: Other (sores and blister on L leg ); Denies: Rash, Lesions, Bruising Cardiovascular: Reports: Orthopnea; Denies: Chest Pain, Palpitations Gastrointestinal: Denies: Nausea, Vomiting, Abdominal Pain, Diarrhea, Constipation, Melena, Hematochezia Genitourinary: Denies: Dysuria, Frequency Endocrine: Denies: Polydipsia, Polyphagia, Polyuria Physical Examination General Exam: Positive: Alert, Cooperative, Mild Distress Eye Exam: Positive: PERRLA, EOMI ENT Exam: Positive: Atraumatic, Mucous membr. moist/pink Chest Exam: Positive: Other (crackles appreciated lower lung bases bilat); Negative: Rales, Rhonchi, Wheezing Abdomen Exam: Positive: Normal bowel sounds, Soft; Negative: Tenderness, Hepatospenomegaly, Mass Extremity Exam: Positive: Edema (3+ pitting edema bilat lower extr); Negative: Clubbing, Cyanosis Vital Signs Vital Signs Date Time Temp Pulse Resp B/P (MAP) Pulse Ox O2 Delivery O2 Flow Rate FiO2 12/02/19 17:49 97.2 73 28 159/70 (99) 94 Room Air Laboratory Data Labs 24H Laboratory Tests 2 12/02/19 18:35: POC Glucose (Misc Panel) 116H, POC Sodium (Misc Panel) 140, POC Potassium (Misc Panel) 3.8, POC Chloride (Misc Panel) 99, POC Total CO2 (Misc Panel) 28.0H, POC Blood Urea Nitrogen (Misc Panel 17, POC Ionized Calcium (Misc Panel) 4.8, POC Creatinine (Misc Panel) 1.1, POC Hematocrit (Misc Panel) 31.0L 12/02/19 18:37: POC Troponin I (Misc) 0.00 12/02/19 19:06: Immature Granulocyte % (Auto) 0.6, Neutrophils (%) (Auto) 79.0H, Lymphocytes (%) (Auto) 10.9L, Monocytes (%) (Auto) 7.1H, Eosinophils (%) (Auto) 1.9, Basophils (%) (Auto) 0.5, Neutrophils # (Auto) 6.9, Lymphocytes # (Auto) 1.0L, Monocytes # (Auto) 0.6, Eosinophils # (Auto) 0.2, Basophils # (Auto) 0.0, Nucleated Red Blood Cells % (auto) 0.0, Blood Gas Bicarbonate Standard 28.0, Venous Blood pH 7.482H, Venous Blood Partial Pressure CO2 37.5L, Venous Blood Partial Pressure O2 135.7H, Venous Blood Total Carbon Dioxide 28.6H, Venous Blood HCO3 27.4H, Venous Blood Oxygen Saturation 98.9H, Venous Blood Base Excess 3.9H CBC/BMP Laboratory Tests 12/02/19 19:06 Assessment/Plan This is a 78 y/o with recurrent hospitalization for CHF exacerbations, who presents again for sob x 1 day and pitting edema now resulting in sores and blisters of the L leg. She's given Lasix IV 80mg X1 dose in ER. She'll be admitted for further management and ECHO ordered and cardiology consult in the am. Plan / VTE VTE Prophylaxis Ordered?: Yes Plan Plan #HFpEF - Strict IOs - Lasix 40mg IV BID - d/c'd torsemide - ECHO in July 2019 and showed mild concentric left ventricle hypertrophy and LVEF 65% and Grade 2 LV diastolic function (pseudo normal filling pattern) - ECHO ordered pending - 2g Na diet #DM2 - Metformin held - SSI +FSBS ACHS +hypoglycemic protocol Afib - chronic - continue xarelto #COPD - no in exacerbation - continue prednisone 5mg po qhs - continue advair DVT ppx: xarelto GI ppx: protonix 40mg PO qdaily IVF: none Diet: 2g Na and consistent carb Jennyfer Ferguson DO Dec 02, 2019 19:33
[2019-12-02] MEDS ORDERED: ALBUTEROL 90 MCG/ACT 8GM HFA INHALER INH PRN (19:45)
[2019-12-02 19:50] LABS: INR 1.6; PROTHROMBIN TIME 19.4 SECONDS (12.5-14.3)
[2019-12-02 19:53] LABS: ALBUMIN 3.2 GM/DL (3.2-5.2); BILIRUBIN,DIRECT 0.3 MG/DL (0.0-0.2); BILIRUBIN,TOTAL 0.7 MG/DL (0.2-1.0); PHENOBARBITAL LEVEL 2.1 UG/ML (15.0-40.0); THYROID STIMULATING HORMONE 1.97 uIU/ML (0.358-3.740); TOTAL PROTEIN 5.6 GM/DL (6.4-8.2)
[2019-12-02] MEDS: ADVAIR HFA 230/21MCG INHALER INH SCH (20:35)
[2019-12-02 22:18] VITALS: BP 118/57
[2019-12-02] MEDS ORDERED: GLUCOSE 4GM CHEW TABLET PO PRN (22:45)
[2019-12-02] MEDS ORDERED: DEXTROSE 50% 50 ML SYRINGE IV PRN (22:45)
[2019-12-02] MEDS ORDERED: GLUCAGON INJ 1MG VIAL SC PRN (22:45)
[2019-12-02] MEDS: RIVAROXABAN 20 MG TAB (XARELTO) PO SCH (23:13)
[2019-12-02] MEDS: POTASSIUM CHLORIDE 10 MEQ SR TABLET PO SCH (23:14)
[2019-12-02] MEDS: predniSONE 5 MG TAB PO SCH (23:14)
[2019-12-03 06:00] VITALS: BP 112/75
[2019-12-03] MEDS: ADVAIR HFA 230/21MCG INHALER INH SCH ×2 (07:26→19:51)
--- NOTE | 2019-12-03 08:01 | ECGEPIP ---
[facility] - ED Test Date: 2019-12-02 Pat Name: MYAH DEAL Department: Room: - Gender: Female Trauma Counsellor: claudia : 1940 Requested By: Starr Farris Order Number: [id number] Reading MD: Doug Julien Measurements Intervals [place] Rate: 71 P: 169 DE: 189 QRS: 37 QRSD: 103 T: 65 QT: 409 QTc: 446 Interpretive Statements ELECTRONIC ATRIAL PACEMAKER NSTTW ABNORMALITY(S) SIMILAR TO 11/24/19 Electronically Signed on 12-03-2019 8:01:33 EDT by Doug Julien
[2019-12-03 08:04] LABS: HEMATOCRIT 32.8 % (36.0-47.0); MEAN CORPUSCULAR HEMOGLOBIN 27.5 pg (27.0-33.0); MEAN CORPUSCULAR HGB CONC 30.5 g/dl (32.0-36.5); MEAN CORPUSCULAR VOLUME 90.4 fl (80.0-96.0); PLATELET COUNT, AUTOMATED 166 10^3/uL (150-450); RED BLOOD COUNT 3.63 10^6/uL (4.00-5.40); WHITE BLOOD COUNT 7.3 10^3/uL (4.0-10.0)
[2019-12-03 08:33] LABS: CREATININE FOR GFR 1.17 MG/DL (0.55-1.30); GLOMERULAR FILTRATION RATE 47.7 (>39); POTASSIUM SERUM 4.3 MEQ/L (3.5-5.1)
[2019-12-03] MEDS: FUROSEMIDE 40MG/4ML VIAL (J1940) IV SCH ×2 (08:54→17:33)
[2019-12-03] MEDS: buPROPion **XL** TABLET 150MG (WELLBUTRIN XL) PO SCH (08:55)
[2019-12-03] MEDS: CitaloPRAM (CeleXA) 20 MG TAB PO SCH (08:55)
[2019-12-03] MEDS: POTASSIUM CHLORIDE 10 MEQ SR TABLET PO SCH ×2 (08:55→20:27)
[2019-12-03] MEDS: HumaLOG INSULIN (NovoLOG) PER UNIT SC SCH ×3 (08:56→17:34)
[2019-12-03] MEDS ORDERED: TORSEMIDE 20 MG TAB PO SCH (09:00)
--- NOTE | 2019-12-03 09:39 | IPNPDOC ---
Date Seen The patient was seen on 12/03/19. Progress Note SUBJECTIVE: c/o severe pain in b/l le due to edema but able to ambulate. says redness has been there and usually worsens when the edema increases. no fever or chills. no c/o cp, sobimproved. OBJECTIVE PHYSICAL EXAMINATION: VITAL SIGNS: Please see below. Gen. awake, alert, oriented 3. Mild JVD. No thyromegaly. Moist mucous membranes Lungs diminished minimal crackles at bilateral bases Heart S1, S2, irregularly irregular . Abdomen Obese, soft, nontender, nondistended, positive bowel sounds Strength remedies. 2+ pitting edema, erythematous , nontender LABORATORY DATA, IMAGING STUDIES, MICROBIOLOGY: Please see below. ASSESSMENT : 78-year-old female with history of diastolic heart failure, chronic lower extremity cellulitis, left greater than right, presents with increasing lower extremity edema admitted for CHF exacerbation. Lower extremity Dopplers were negative for DVT PROBLEMS: acute decompensated Diastolic CHF with preserved systolic function , Chronic lower extremity edema DM2 Atrial fibrillation on xarelto COPD HTN CKD COPD Chronic anemia EDGARD Morbid obesity Plan patient is continued on Lasix IV diuresis, fluid restriction, strict I's and O's and daily weights until she is euvolemic. Venous Dopplers of the lower extremities are negative for DVT. Due to prior history of chronic lower extremity cellulitis, left greater than right. Patient will be checked for ongoing infection diuresis. Patient will be for CT of the lower extremity. We'll check pro-calcitonin, sedimentation rate and CRP VS, I&O, 24H, Fishbone Vital Signs/I&O Vital Signs Date Time Temp Pulse Resp B/P (MAP) Pulse Ox O2 Delivery O2 Flow Rate FiO2 12/03/19 06:00 97.4 71 16 112/75 (87) 96 Room Air 12/02/19 22:18 2.0 I&O- Last 24 Hours up to 6 AM 12/03/19 06:00 Intake Total 580 ml Output Total 675 ml Balance -95 ml Laboratory Data 24H LABS Laboratory Tests 2 12/02/19 18:35: POC Glucose (Misc Panel) 116H, POC Sodium (Misc Panel) 140, POC Potassium (Misc Panel) 3.8, POC Chloride (Misc Panel) 99, POC Total CO2 (Misc Panel) 28.0H, POC Blood Urea Nitrogen (Misc Panel 17, POC Ionized Calcium (Misc Panel) 4.8, POC Creatinine (Misc Panel) 1.1, POC Hematocrit (Misc Panel) 31.0L 12/02/19 18:37: POC Troponin I (Misc) 0.00 12/02/19 19:06: Immature Granulocyte % (Auto) 0.6, Neutrophils (%) (Auto) 79.0H, Lymphocytes (%) (Auto) 10.9L, Monocytes (%) (Auto) 7.1H, Eosinophils (%) (Auto) 1.9, Basophils (%) (Auto) 0.5, Neutrophils # (Auto) 6.9, Lymphocytes # (Auto) 1.0L, Monocytes # (Auto) 0.6, Eosinophils # (Auto) 0.2, Basophils # (Auto) 0.0, Nucleated Red Bloo d Cells % (auto) 0.0, Prothrombin Time 19.4H, Prothromb Time International Ratio 1.60, Blood Gas Bicarbonate Standard 28.0, Venous Blood pH 7.482H, Venous Blood Partial Pressure CO2 37.5L, Venous Blood Partial Pressure O2 135.7H, Venous Blood Total Carbon Dioxide 28.6H, Venous Blood HCO3 27.4H, Venous Blood Oxygen Saturation 98.9H, Venous Blood Base Excess 3.9H, Lactic Acid Level 1.4, Total Bilirubin 0.7, Direct Bilirubin 0.3H, Aspartate Amino Transf (AST/SGOT) 7, Alanine Aminotransferase (ALT/SGPT) 11L, Alkaline Phosphatase 59, OZ-Twn-M-Type Natriuretic Peptide 377, Total Protein 5.6L, Albumin 3.2, Albumin/Globulin Ratio 1.3, Thyroid Stimulating Hormone (TSH) 1.970, Phenobarbital Level 2.1L 12/02/19 19:46: Coronavirus (COVID-19)(PCR) NEGATIVE 12/02/19 22:24: Bedside Glucose (Misc Panel) 153H 12/03/19 07:31: Nucleated Red Blood Cells % (auto) 0.0, Anion Gap 6L, Glomerular Filtration Rate 47.7, Calcium Level 9.0 CBC/BMP Laboratory Tests 12/02/19 19:06 12/03/19 07:31 HANY CEE MD Dec 03, 2019 09:23
[2019-12-03] MEDS ORDERED: ISOVUE-370 76% 100ML VIAL As Ordered ONE (09:46)
[2019-12-03 10:20] LABS: C REACTIVE PROTEIN QUANTITATIV 1.54 MG/DL (0.00-0.30)
[2019-12-03 10:39] LABS: ERYTHROCYTE SEDIMENTATION RATE 22 mm/hr (0-30)
--- NOTE | 2019-12-03 11:12 | REPVR ---
PROCEDURE INFORMATION: Exam: CT Left Lower Extremity Without Contrast; Lower Leg Exam date and time: 12/03/2019 10:17 AM Age: 78 years old Clinical indication: Swelling, leg or foot and other: Rule out osteomyelitis; Prior surgery; Surgery date: 6+ months; Surgery type: Ankle surgery, 6 years ago; Additional info: Left lower extremity edema, pain, rule out osteomyelitis. TECHNIQUE: Imaging protocol: CT of the Left lower extremity without contrast was performed. Exam focused on the lower leg. Coronal and sagittal reformats were created and reviewed. Radiation optimization: All CT scans at this facility use at least one of these dose optimization techniques: automated exposure control; mA and/or kV adjustment per patient size (includes targeted exams where dose is matched to clinical indication); or iterative reconstruction. COMPARISON: 1. CT TIB/FIB WITH CONTRAST 07/13/2019 6:25:[address] TIB/FIB WITH CONTRAST LEFT 07/09/2019 12:32 PM FINDINGS: Bones/joints: No knee joint effusion. Knee medial compartment mild osteophytosis. Knee medial compartment joint space narrowing. Superior patellar enthesophyte. No knee dislocation. Distal tibia and distal fibular internal fixation hardware is redemonstrated and is without evidence of hardware failure. Incompletely imaged midfoot internal fixation hardware. Posterior and plantar calcaneal enthesophytes. No acute fracture. No osseous destruction. No periosteal reaction. Soft tissues: Diffuse skin thickening and subcutaneous fat stranding of the imaged left leg is redemonstrated, consistent with edema/cellulitis. No soft tissue abscess. No soft tissue gas. The right leg is partially included within the field of view and diffuse skin thickening and subcutaneous fat stranding of the imaged right leg, consistent with edema/cellulitis, is also present. IMPRESSION: 1. No CT evidence of osteomyelitis. 2. Diffuse superficial edema/cellulitis of the imaged left lower leg. Electronically signed by: Edgar Garay On 12/03/2019 11:12:37 AM
[2019-12-03 16:25] VITALS: BP 159/87
[2019-12-03] MEDS: predniSONE 5 MG TAB PO SCH (20:27)
[2019-12-03] MEDS: RIVAROXABAN 20 MG TAB (XARELTO) PO SCH (20:27)
[2019-12-03 22:00] VITALS: BP 130/50
[2019-12-03] MEDS: ACETAMINOPHEN TAB 650MG DOSE (2X325MG) PO PRN (23:27)
[2019-12-04] MEDS ORDERED: IBUPROFEN 200MG TAB PO PRN
[2019-12-04] MEDS ORDERED: IBUPROFEN 200MG TAB PO ONE (01:00)
[2019-12-04] MEDS: ACETAMINOPHEN TAB 650MG DOSE (2X325MG) PO PRN (05:46)
[2019-12-04 06:00] VITALS: BP 129/62
[2019-12-04] MEDS: ADVAIR HFA 230/21MCG INHALER INH SCH ×2 (07:39→19:51)
[2019-12-04] MEDS ORDERED: CLOTRIMAZOLE 1% VAG CR 45 GM PV SCH ×2 (09:00→21:00)
[2019-12-04] MEDS: HumaLOG INSULIN (NovoLOG) PER UNIT SC SCH ×3 (10:05→18:14)
[2019-12-04] MEDS: buPROPion **XL** TABLET 150MG (WELLBUTRIN XL) PO SCH (10:06)
[2019-12-04] MEDS: CitaloPRAM (CeleXA) 20 MG TAB PO SCH (10:06)
[2019-12-04] MEDS: POTASSIUM CHLORIDE 10 MEQ SR TABLET PO SCH ×2 (10:07→20:18)
[2019-12-04] MEDS: FUROSEMIDE 20MG/2ML VIAL (J1940) IV SCH ×4 (10:14→22:00)
[2019-12-04] MEDS ORDERED: traMADol 50 MG TAB PO ONE (10:15)
[2019-12-04] MEDS ORDERED: ACETAMINOPHEN 500 MG TAB PO ONE (10:15)
[2019-12-04] MEDS ORDERED: traMADol 50 MG TAB PO PRN (10:15)
--- NOTE | 2019-12-04 10:53 | IPNPDOC ---
Date Seen The patient was seen on 12/04/19. Progress Note SUBJECTIVE: received ibuprofen last night for pain. however, pt being treated for chf, and NSAIDS CONTRAINDICATED for acute CHF. still c/o 09/26 pain bl le and edema. no sob cp,pressure,tightness, or lightheadedness/palpitations. OBJECTIVE PHYSICAL EXAMINATION: VITAL SIGNS: Please see below. Gen. awake, alert, oriented 3. Mild JVD. No thyromegaly. Moist mucous membranes Lungs diminished minimal crackles at bilateral bases Heart S1, S2, irregularly irregular . Abdomen Obese, soft, nontender, nondistended, positive bowel sounds Strength remedies. 2+ pitting edema, erythematous , nontender LABORATORY DATA, IMAGING STUDIES, MICROBIOLOGY: Please see below. ASSESSMENT : 78-year-old female with history of diastolic heart failure, chronic lower extremity cellulitis, left greater than right, presents with increasing lower extremity edema admitted for CHF exacerbation. Lower extremity Dopplers were negative for DVT PROBLEMS: acute decompensated Diastolic CHF with preserved systolic function Chronic lower extremity edema h/o chronic Left >>right recurrent cellulitis, sees a specialist in [place] DM2 Atrial fibrillation on xarelto COPD HTN CKD COPD Chronic anemia EDGARD Morbid obesity Plan: CT LE -no abscess or signs of fasciitis. edema vs cellulitis. no fever or leukocytosis to warrant abx. continue with lasix to net negative balance until pt's edema is resolved, fluid restriction strict i/o and daily weights. aat . elevate LE while supine. VS, I&O, 24H, Fishbone Vital Signs/I&O Vital Signs Date Time Temp Pulse Resp B/P (MAP) Pulse Ox O2 Delivery O2 Flow Rate FiO2 12/04/19 06:00 96.5 73 20 129/62 (84) 94 Nasal Cannula 2.0 I&O- Last 24 Hours up to 6 AM 12/04/19 05:59 Intake Total 1260 ml Output Total 2200 ml Balance -940 ml Laboratory Data 24H LABS Laboratory Tests 2 12/03/19 11:38: Bedside Glucose (Misc Panel) 175H 12/03/19 17:05: Bedside Glucose (Misc Panel) 119H 12/03/19 19:58: Bedside Glucose (Misc Panel) 171H 12/04/19 06:48: Bedside Glucose (Misc Panel) 126H HANY CEE MD Dec 04, 2019 10:53
[2019-12-04 14:00] VITALS: BP 124/52
[2019-12-04] MEDS: RIVAROXABAN 20 MG TAB (XARELTO) PO SCH (20:18)
[2019-12-04] MEDS: predniSONE 5 MG TAB PO SCH (20:18)
[2019-12-04] MEDS: ACETAMINOPHEN 500 MG TAB PO SCH (21:59)
[2019-12-04 22:00] VITALS: BP 134/57
[2019-12-05] MEDS: FUROSEMIDE 20MG/2ML VIAL (J1940) IV SCH ×2 (03:11→06:04)
[2019-12-05 06:00] VITALS: BP 132/57
[2019-12-05] MEDS: ACETAMINOPHEN 500 MG TAB PO SCH ×3 (06:03→21:19)
[2019-12-05] MEDS: ADVAIR HFA 230/21MCG INHALER INH SCH ×2 (07:22→20:14)
[2019-12-05] MEDS: FLUCONAZOLE 100 MG TAB PO SCH (08:56)
[2019-12-05] MEDS: buPROPion **XL** TABLET 150MG (WELLBUTRIN XL) PO SCH (08:56)
[2019-12-05] MEDS: HumaLOG INSULIN (NovoLOG) PER UNIT SC SCH ×3 (08:56→18:05)
[2019-12-05] MEDS: CitaloPRAM (CeleXA) 20 MG TAB PO SCH (08:56)
[2019-12-05] MEDS: POTASSIUM CHLORIDE 10 MEQ SR TABLET PO SCH ×2 (08:57→20:31)
--- NOTE | 2019-12-05 09:25 | IPNPDOC ---
Date Seen The patient was seen on 12/05/19. Progress Note SUBJECTIVE: did not diurese well on lasix. still c/o "my legs are like bricks, and my belly is so heavy." no sob, cp,pressure, or lightheadedness. c/o thirst. OBJECTIVE PHYSICAL EXAMINATION: VITAL SIGNS: Please see below. Gen. awake, alert, oriented 3. Mild JVD. No thyromegaly. Moist mucous membranes Lungs diminished minimal crackles at bilateral bases Heart S1, S2, irregularly irregular . Abdomen Obese, soft, nontender, nondistended, positive bowel sounds EXT: 2+ pitting edema, erythematous , nontender, skin tear weeping serous fluid on left leg. LABORATORY DATA, IMAGING STUDIES, MICROBIOLOGY: Please see below. ASSESSMENT : 78-year-old female with history of diastolic heart failure, chronic lower extremity cellulitis, left greater than right, presents with increasing lo wer extremity edema admitted for CHF exacerbation. Lower extremity Dopplers were negative for DVT PROBLEMS: acute decompensated Diastolic CHF with preserved systolic function Chronic b/l LE venous insufficiency left leg skin tear with serous drainage h/o chronic Left >>right recurrent cellulitis, sees a specialist in [place] DM2 Atrial fibrillation on xarelto COPD HTN CKD COPD Chronic anemia EDGARD Morbid obesity Plan: trial of zaroxolyn prior to bumex. monitor creatinine and electrolytes and supplement if low. CT LE -no abscess or signs of fasciitis. edema vs cellulitis. no fever or leukocytosis to warrant abx. no improvement with iv lasix. will transition to bumex until pt's edema is resolved, fluid restriction strict i/o and daily weights. aat . elevate LE while supine. VS, I&O, 24H, Fishbone Vital Signs/I&O Vital Signs Date Time Temp Pulse Resp B/P (MAP) Pulse Ox O2 Delivery O2 Flow Rate FiO2 12/05/19 06:00 98.0 72 20 132/57 (82) 91 Room Air 12/04/19 06:00 2.0 I&O- Last 24 Hours up to 6 AM 12/05/19 06:00 Intake Total 1410 ml Output Total 1700 ml Balance -290 ml Laboratory Data 24H LABS Laboratory Tests 2 12/04/19 11:47: Bedside Glucose (Misc Panel) 177H 12/04/19 17:06: Bedside Glucose (Misc Panel) 163H 12/04/19 21:00: Bedside Glucose (Misc Panel) 161H 12/05/19 06:26: Bedside Glucose (Misc Panel) 152H HANY CEE MD Dec 05, 2019 09:25
[2019-12-05] MEDS ORDERED: metOLazone 5 MG TAB PO ONE ×2 (10:00→15:30)
[2019-12-05 10:11] LABS: CALCIUM LEVEL 8.7 MG/DL (8.8-10.2); CREATININE FOR GFR 1.35 MG/DL (0.55-1.30); GLOMERULAR FILTRATION RATE 40.5 (>39); POTASSIUM SERUM 4.2 MEQ/L (3.5-5.1)
[2019-12-05] MEDS ORDERED: BUMETANIDE 1 MG/4 ML INJ (S0171) IV ONE ×2 (10:30→16:00)
[2019-12-05 13:58] LABS: IONIZED CALCIUM 4.6 MG/DL (4.5-5.3)
[2019-12-05 14:00] VITALS: BP 112/58
[2019-12-05 14:26] LABS: CALCIUM LEVEL 9.3 MG/DL (8.8-10.2); CREATININE FOR GFR 1.31 MG/DL (0.55-1.30); GLOMERULAR FILTRATION RATE 41.9 (>39); MAGNESIUM LEVEL 2.1 MG/DL (1.8-2.4); POTASSIUM SERUM 3.8 MEQ/L (3.5-5.1)
[2019-12-05] MEDS: predniSONE 5 MG TAB PO SCH (20:31)
[2019-12-05] MEDS: RIVAROXABAN 20 MG TAB (XARELTO) PO SCH (20:31)
[2019-12-05 22:00] VITALS: BP 118/58
[2019-12-05 23:03] LABS: IONIZED CALCIUM 4.6 MG/DL (4.5-5.3)
[2019-12-05 23:49] LABS: CALCIUM LEVEL 10.1 MG/DL (8.8-10.2); CREATININE FOR GFR 1.7 MG/DL (0.55-1.30); POTASSIUM SERUM 3.8 MEQ/L (3.5-5.1)
[2019-12-06] MEDS: ACETAMINOPHEN 500 MG TAB PO SCH ×3 (05:37→21:37)
[2019-12-06 06:00] VITALS: BP 111/55
[2019-12-06 06:10] LABS: IONIZED CALCIUM 4.5 MG/DL (4.5-5.3)
[2019-12-06 06:32] LABS: CALCIUM LEVEL 8.8 MG/DL (8.8-10.2); CREATININE FOR GFR 1.5 MG/DL (0.55-1.30); GLOMERULAR FILTRATION RATE 35.8 (>39); POTASSIUM SERUM 4.1 MEQ/L (3.5-5.1)
[2019-12-06] MEDS: ADVAIR HFA 230/21MCG INHALER INH SCH ×2 (07:37→19:33)
[2019-12-06] MEDS ORDERED: metOLazone 5 MG TAB PO ONE (09:00)
[2019-12-06] MEDS: HumaLOG INSULIN (NovoLOG) PER UNIT SC SCH ×3 (09:05→18:11)
[2019-12-06] MEDS: CitaloPRAM (CeleXA) 20 MG TAB PO SCH (09:05)
[2019-12-06] MEDS: FLUCONAZOLE 100 MG TAB PO SCH (09:06)
[2019-12-06] MEDS: POTASSIUM CHLORIDE 10 MEQ SR TABLET PO SCH ×2 (09:06→20:17)
[2019-12-06] MEDS: buPROPion **XL** TABLET 150MG (WELLBUTRIN XL) PO SCH (09:06)
--- NOTE | 2019-12-06 09:10 | IPNPDOC ---
Date Seen The patient was seen on 12/06/19. Progress Note SUBJECTIVE: "I feel better today. I can talk without trouble breathing." no cough, fever, or chills. decreased LE edema and decreased pain. 3/10 discomfort in b/l LE. no c/o dizziness or lightheadedness. urine output 3.9 liters yesterday. OBJECTIVE PHYSICAL EXAMINATION: VITAL SIGNS: Please see below. Gen. awake, alert, oriented 3. no conversational dyspnea or use of accesssory respiratory muscles. HEENT: no JVD. No thyromegaly. dry mucous membranes Lungs AEBE CTAB Heart S1, S2, irregularly irregular . Abdomen Obese, soft, nontender, nondistended, positive bowel sounds EXT: 2+ pitting edema,less erythematous , nontender, skin tear left leg without drainage. LABORATORY DATA, IMAGING STUDIES, MICROBIOLOGY: Please see below. ASSESSMENT : 78-year-old female with history of diastolic heart failure, chronic lower extremity cellulitis, left greater than right, presents with increasing lower extremity edema admitted for CHF exacerbation. Lower extremity Dopplers were negative for DVT PROBLEMS: acute decompensated Diastolic CHF with preserved systolic function Chronic b/l LE venous insufficiency left leg skin tear with serous drainage h/o chronic Left >>right recurrent cellulitis, sees a specialist in [place] DM2 Atrial fibrillation on xarelto COPD HTN acute on CKD stage 3 COPD Chronic anemia EDGARD Morbid obesity Plan: s/p iv bumex and zaroxolyn with good diuresis but with worsening azotemia and acute kidney injury. no NSAID use last night. on tylenol for pain. lungs are improved, but still needs fluid off, and remains overloaded with 2+ pitting edema. trial of home dose torsemide 20 mg with zaroxolyn 30min prior, and repeat bmp to monitor her creatinine. AVOID ALL NSAIDS while in decompensated CHF. may dc home in next 1-2 days pending clinical improvement. if creatinine worsens with repeat bmp later today, hold off on further diuretics until creatinine recovers and resume home dose of po meds. VS, I&O, 24H, Fishbone Vital Signs/I&O Vital Signs Date Time Temp Pulse Resp B/P (MAP) Pulse Ox O2 Delivery O2 Flow Rate FiO2 12/06/19 06:00 96.7 71 20 111/55 (73) 97 12/05/19 14:00 Room Air 12/04/19 06:00 2.0 I&O- Last 24 Hours up to 6 AM 12/06/19 06:00 Intake Total 1030 ml Output Total 3300 ml Balance -2270 ml Laboratory Data 24H LABS Laboratory Tests 2 12/05/19 09:30: Anion Gap 6L, Glomerular Filtration Rate 40.5, Calcium Level 8.7L 12/05/19 11:33: Bedside Glucose (Misc Panel) 106 12/05/19 13:50: Anion Gap 6L, Glomerular Filtration Rate 41.9, Calcium Level 9.3, Whole Blood Ionized Calcium 4.6, Magnesium Level 2.1 12/05/19 17:01: Bedside Glucose (Misc Panel) 109 12/05/19 20:24: Bedside Glucose (Misc Panel) 134H 12/05/19 22:58: Anion Gap 6L, Glomerular Filtration Rate 31.0L, Calcium Level 10.1, Whole Blood Ionized Calcium 4.6, Magnesium Level 2.0 12/06/19 05:37: Anion Gap 8, Glomerular Filtration Rate 35.8L, Calcium Level 8.8, Whole Blood Ionized Calcium 4.5, Magnesium Level 2.0 CBC/BMP Laboratory Tests 12/05/19 09:30 12/05/19 13:50 12/05/19 22:58 12/06/19 05:37 HANY CEE MD Dec 06, 2019 09:10
[2019-12-06] MEDS ORDERED: TORSEMIDE 20 MG TAB PO ONE (09:30)
--- NOTE | 2019-12-06 09:45 | ECHO ---
DATE OF PROCEDURE: 12/03/2019 Age: 78 Gender: Female Height: 158 cm Weight: 120 kg REFERRING PHYSICIAN: Dr. Jennyfer Ferguson INDICATION: Heart failure unspecified. MEASUREMENTS: 2D Measurements: Aortic root 2.9 cm Left atrium 3.6 cm Intraventricular septum 1.31 cm Posterior wall 1.32 cm Left ventricle diastole 4.7 cm Doppler Measurements: None measured DESCRIPTION: Rhythm appeared to be predominantly atrial paced at 70 beats per minute. Image quality was fair. This was a 2D, M-mode, color flow Doppler, and pulsed wave Doppler examination. CONCLUSIONS: 1. Normal left ventricle internal dimensions. Mild concentric left ventricular hypertrophy. Diastolic function assessment was not performed on this study. No regional left ventricular (LV) wall motion abnormalities. Left ventricular ejection fraction (LVEF) 60% by visual estimate. 2. Normal right ventricle size and systolic function. 3. Mild aortic valve sclerosis of a 3-cuspid aortic valve. No aortic stenosis or regurgitation. 4. Mild mitral annular calcification. No mitral stenosis or regurgitation. 5. No vegetation. 6. Tiny pericardial effusion measuring 4 mm over the posterior basal left ventricular (LV) segment. MTDD
[2019-12-06 14:00] VITALS: BP 112/60
[2019-12-06 16:50] LABS: CREATININE FOR GFR 1.5 MG/DL (0.55-1.30); GLOMERULAR FILTRATION RATE 35.8 (>39); MAGNESIUM LEVEL 2.1 MG/DL (1.8-2.4); POTASSIUM SERUM 3.7 MEQ/L (3.5-5.1)
[2019-12-06] MEDS: RIVAROXABAN 20 MG TAB (XARELTO) PO SCH (20:17)
[2019-12-06] MEDS: predniSONE 5 MG TAB PO SCH (20:17)
[2019-12-06 22:00] VITALS: BP 124/47
[2019-12-07] MEDS: ACETAMINOPHEN 500 MG TAB PO SCH ×3 (05:46→22:22)
[2019-12-07 06:00] VITALS: BP 117/50
[2019-12-07 07:00] LABS: CALCIUM LEVEL 9.6 MG/DL (8.8-10.2); CREATININE FOR GFR 1.46 MG/DL (0.55-1.30); MAGNESIUM LEVEL 2.1 MG/DL (1.8-2.4); POTASSIUM SERUM 4.6 MEQ/L (3.5-5.1)
[2019-12-07] MEDS: ADVAIR HFA 230/21MCG INHALER INH SCH ×2 (07:14→19:34)
[2019-12-07] MEDS: CitaloPRAM (CeleXA) 20 MG TAB PO SCH (08:03)
[2019-12-07] MEDS: FLUCONAZOLE 100 MG TAB PO SCH (08:03)
[2019-12-07] MEDS: POTASSIUM CHLORIDE 10 MEQ SR TABLET PO SCH ×2 (08:03→20:09)
[2019-12-07] MEDS: buPROPion **XL** TABLET 150MG (WELLBUTRIN XL) PO SCH (08:03)
[2019-12-07] MEDS: HumaLOG INSULIN (NovoLOG) PER UNIT SC SCH ×3 (08:04→18:29)
[2019-12-07] MEDS ORDERED: TORSEMIDE 20 MG TAB PO ONE (09:00)
[2019-12-07] MEDS ORDERED: metOLazone 5 MG TAB PO ONE (09:00)
[2019-12-07 14:00] VITALS: BP 117/50
--- NOTE | 2019-12-07 19:58 | IPNPDOC ---
Subjective Date Seen The patient was seen on 12/07/19. Subjective Chief Complaint/HPI Patient is a 78 year old female with a.fib, CKD, COPD, EDGARD, and diastolic CHF here with decompensated heart failure. This morning, when she was seen she was very lethargic, but arousable. Did not sleep well overnight. Still has dyspnea, but improved. Cautious with diuresis due to ANN. Otherwise denies fever, chest pain, abdominal pain, or dysuria. Constitutional: Denies: Fever Pulmonary: Reports: Dyspnea Cardiovascular: Denies: Chest Pain Gastrointestinal: Denies: Abdominal Pain Genitourinary: Denies: Dysuria Objective Physical Examination General Exam: Positive: Cooperative, No Acute Distress Eye Exam: Positive: PERRLA, EOMI ENT Exam: Positive: Atraumatic, Mucous membr. moist/pink Chest Exam: Positive: Other (crackles appreciated lower lung bases bilat); Negative: Rales, Rhonchi, Wheezing Abdomen Exam: Positive: Normal bowel sounds, Soft; Negative: Tenderness, Hepatospenomegaly, Mass Extremity Exam: Positive: Edema (3+ pitting edema bilat lower extr); Negative: Clubbing, Cyanosis Assessment /Plan Assessment Patient is a 78 year old female here with decompensated diastolic heart failure. While here, she did develop ANN with diuresis. Baseline creatinine at 1.1, at peak, creatinine was 1.7. Now had down trended to 1.46. Continue with cautious diuresis and continue monitoring renal function. Plan/VTE VTE Prophylaxis Ordered?: Yes Plan 1. Acute decompensated diastolic heart failure -Echocardiogram demonstrates EF of 60% -Continue with diuresis 2. Acute kidney injury -Secondary to diuresis -Continue with close monitoring 3. Atrial fibrillation -Continue rivaroxaban 4. DM2 -On sliding scale insulin 5. COPD -Stable -Continue inhalers 6. Glucoma -Continue eye drops 7. Depression/anxiety -Continue bupropion and citalopram 8. Obesity -BMI 47.6 -Will need to follow up with PCP to discuss weight loss strategies 9. DVT ppx -On Rivaroxaban VS, I&O, 24H, Fishbone Vital Signs/I&O Vital Signs Date Time Temp Pulse Resp B/P (MAP) Pulse Ox O2 Delivery O2 Flow Rate FiO2 12/07/19 14:00 98.3 72 17 117/50 (72) 97 Room Air 12/04/19 06:00 2.0 I&O- Last 24 Hours up to 6 AM 12/07/19 06:00 Intake Total 570 ml Output Total 1950 ml Balance -1380 ml Laboratory Data 24H LABS Laboratory Tests 2 12/06/19 20:31: Bedside Glucose (Misc Panel) 172H 12/07/19 06:21: Anion Gap 3L, Glomerular Filtration Rate 37.0L, Calcium Level 9.6, Magnesium Level 2.1 12/07/19 11:41: Bedside Glucose (Misc Panel) 147H 12/07/19 16:42: Bedside Glucose (Misc Panel) 196H CBC/BMP Laboratory Tests 12/07/19 06:21 SHIRLEY PARRA DO Dec 07, 2019 19:58
[2019-12-07] MEDS: predniSONE 5 MG TAB PO SCH (20:09)
[2019-12-07] MEDS: RIVAROXABAN 20 MG TAB (XARELTO) PO SCH (20:09)
[2019-12-07 22:00] VITALS: BP 142/60
[2019-12-08] MEDS: ACETAMINOPHEN 500 MG TAB PO SCH (06:01)
[2019-12-08 06:58] LABS: HEMATOCRIT 32.8 % (36.0-47.0); HEMOGLOBIN 9.9 g/dl (12.0-15.5); MEAN CORPUSCULAR HEMOGLOBIN 27.3 pg (27.0-33.0); MEAN CORPUSCULAR HGB CONC 30.2 g/dl (32.0-36.5); MEAN CORPUSCULAR VOLUME 90.6 fl (80.0-96.0); PLATELET COUNT, AUTOMATED 175 10^3/uL (150-450); RED BLOOD COUNT 3.62 10^6/uL (4.00-5.40); WHITE BLOOD COUNT 8.5 10^3/uL (4.0-10.0)
[2019-12-08 07:23] LABS: CALCIUM LEVEL 9.2 MG/DL (8.8-10.2); CREATININE FOR GFR 1.35 MG/DL (0.55-1.30); GLOMERULAR FILTRATION RATE 40.5 (>39); POTASSIUM SERUM 4.1 MEQ/L (3.5-5.1)
[2019-12-08] MEDS: ADVAIR HFA 230/21MCG INHALER INH SCH (07:33)
[2019-12-08] MEDS: buPROPion **XL** TABLET 150MG (WELLBUTRIN XL) PO SCH (09:14)
[2019-12-08] MEDS: CitaloPRAM (CeleXA) 20 MG TAB PO SCH (09:14)
[2019-12-08] MEDS: POTASSIUM CHLORIDE 10 MEQ SR TABLET PO SCH (09:14)
[2019-12-08] MEDS: FLUCONAZOLE 100 MG TAB PO SCH (09:14)
[2019-12-08] MEDS: HumaLOG INSULIN (NovoLOG) PER UNIT SC SCH (09:15)
[2019-12-08] MEDS ORDERED: TORS20TA2 PO (10:56)
[2019-12-08] MEDS ORDERED: FLUC100T PO ×2 (10:56→12:04)
[2019-12-08] MEDS ORDERED: METO5TA PO (10:56)
--- NOTE | 2019-12-08 23:14 | DS.PDOC ---
Discharge Summary General Date of Admission Dec 02, 2019 at 20:55 Date of Discharge Dec 08, 2019 Attending Physician: SHIRLEY PARRA DO Discharge Summary PROCEDURES PERFORMED DURING STAY: None ADMITTING DIAGNOSES: 1. Acute decompensated diastolic congestive heart failure 2. Acute kidney injury 3. Atrial fibrillation 4. DM2 5. COPD 6. Glaucoma 7. Depression/anxiety 8. Obesity DISCHARGE DIAGNOSES: 1. Acute decompensated diastolic congestive heart failure 2. Acute kidney injury 3. Atrial fibrillation 4. DM2 5. COPD 6. Glaucoma 7. Depression/anxiety 8. Obesity COMPLICATIONS/CHIEF COMPLAINT: Acute decompensated diastolic CHF HISTORY OF PRESENT ILLNESS: Patient is a 78 year old female who presents with dyspnea for one day. Patient has frequent CHF exacerbations and was recently discharged from [facility] 11/24/2019 for an exacerbation. Patient states that she started feeling short of breath day prior to admission and leg swelling is worse than ever. She states that her leg leg has sores and blisters from the fluid stasis. Denies chest pain, abdominal pain, n/v/d, fever, chills. HOSPITAL COURSE: During her hospitalization she was aggressively diuresed, but her creatinine started to increase. Her diuretics was cut back to torsemide 20mg PO daily and metolazone 5mg PO daily. Creatinine started to improve while on this regimen. She lost a total of 5.8L. Today, she was feeling well. Breathing improved. Denies fever, chest pain, abdominal pain, dysuria, or diarrhea. She felt ready for home and was subsequently discharged home DISCHARGE MEDICATIONS: Please see below. ALLERGIES: Please see below. PHYSICAL EXAMINATION ON DISCHARGE: VITAL SIGNS: Please see below. GENERAL: Comfortable, in no apparent distress. HEENT: Head normocephalic/atraumatic, EOMI, sclera clear. NECK: Supple RESPIRATORY: Lungs clear to auscultation bilaterally CARDIOVASCULAR: Regular rate and rhythm. ABDOMEN: Soft. Normal bowel sounds. MUSCLE SKELETAL: Bilateral pitting edema. NEUROLOGICAL: CN 312 grossly intact, no focal deficits noted. PSYCHOLOGICAL: Normal mood and affect LABORATORY DATA: Please see below. IMAGING: CXR 1. Cardiomegaly. 2. Mild prominence of the pulmonary vascularity. Findings may indicate the presence of CHF. US left lower leg Lower leg edema. No DVT. PROGNOSIS: Stable ACTIVITY: As tolerated. DIET: Carbohydrate consistent diet, 2gm diet, Fluid restrict 1500mL DISCHARGE PLAN: Home DISPOSITION: Home, Self-Care. DISCHARGE INSTRUCTIONS: 1. Follow up with your PCP within 7 days DISCHARGE CONDITION: Stable Total time spent on discharge planning, discharge summary, and medication reconciliation: 45 minutes Vital Signs/I&Os Vital Signs Date Time Temp Pulse Resp B/P (MAP) Pulse Ox O2 Delivery O2 Flow Rate FiO2 12/07/19 22:00 97.4 71 18 142/60 (87) 93 Room Air 12/04/19 06:00 2.0 I&O- Last 24 Hours up to 6 AM 12/08/19 06:00 Intake Total 1140 ml Output Total 2150 ml Balance -1010 ml Laboratory Data Labs 24H Laboratory Tests 2 12/08/19 06:16: Nucleated Red Blood Cells % (auto) 0.0, Anion Gap 5L, Glomerular Filtration Rate 40.5, Calcium Level 9.2, Magnesium Level 2.0 12/08/19 12:08: Bedside Glucose (Misc Panel) 135H CBC/BMP Laboratory Tests 12/08/19 06:16 FSBS Laboratory Tests Test 12/08/19 12:08 Range/Units Bedside Glucose (Misc Panel) 135 83-110 MG/DL Discharge Medications Scheduled Bimatoprost (Bimatoprost) 0.03% 2.5ML Drops, 1 DROP OU BID, (Reported) Bupropion Hcl (Bupropion Xl) 150 Mg Tab, 150 MG PO DAILY, (Reported) Citalopram Hydrobromide (Celexa) 40 Mg Tab, 40 MG PO DAILY, (Reported) Fluconazole (Fluconazole) 100 Mg Tablet, 100 MG PO DAILY Start taking on 12/09/2019 and take to completion Metformin HCl (Metformin HCl) 500 Mg Tablet, 500 MG PO QPM, (Reported) DINNER Metolazone (Metolazone) 5 Mg Tablet, 5 MG PO DAILY Potassium Chloride (Potassium Chloride) 20 Meq Tablet.er, 20 MEQ PO BID, (Reported) Prednisone (Prednisone) 5 Mg Tablet, 5 MG PO QHS, (Reported) Rivaroxaban (Xarelto) 20 Mg Tablet, 20 MG PO QHS, (Reported) Salmeterol/Fluticasone (Advair 500-50 Diskus) 1 Each Blst.w.dev, 1 PUFF INH BID, (Reported) Torsemide (Torsemide) 20 Mg Tablet, 20 MG PO DAILY Scheduled PRN Acetaminophen (Acetaminophen) 325 Mg Tablet, 650 MG PO Q6H PRN for PAIN, (Reported) Albuterol Sulfate (Proair Hfa) 108 Mcg/Act Aer, 2 PUFF INH Q4H PRN for SOB/WHEEZING, (Reported) Allergies Coded Allergies: Penicillins (Verified Allergy, Mild, RASH, 11/24/19) Sulfa (Sulfonamide Antibiotics) (Verified Allergy, Mild, RASH, 11/24/19) clindamycin (Verified Allergy, Mild, RASH, 11/24/19) codeine (Verified Allergy, Mild, STOMACH UPSET, RASH, 11/24/19) meperidine (Verified Allergy, Mild, STOMACH UPSET, RASH, 11/24/19) SHIRLEY PARRA DO Dec 08, 2019 21:18
== END 2019-12-08 12:29 | disposition home or self-care (01) | DRG 291 ==
LOC: M ED 17:08 → M ED INP 20:55 → M MSPAV 22:18
PROVIDERS: ADMIT Internal Medicine; ATTEND Internal Medicine
DX: I13.0 Hypertensive heart and chronic kidney disease with heart failure and stage 1 through stage 4 chronic kidney disease, or unspecified chronic kidney disease (principal); I50.33 Acute on chronic diastolic (congestive) heart failure; N17.9 Acute kidney failure, unspecified; E11.9 Type 2 diabetes mellitus without complications; I48.91 Unspecified atrial fibrillation; J44.9 Chronic obstructive pulmonary disease, unspecified; N18.9 Chronic kidney disease, unspecified; D64.9 Anemia, unspecified; G47.33 Obstructive sleep apnea (adult) (pediatric); I87.2 Venous insufficiency (chronic) (peripheral); H40.9 Unspecified glaucoma; E66.01 Morbid (severe) obesity due to excess calories; Z95.0 Presence of cardiac pacemaker; Z79.01 Long term (current) use of anticoagulants; Z79.52 Long term (current) use of systemic steroids; Z79.84 Long term (current) use of oral hypoglycemic drugs; Z79.899 Other long term (current) drug therapy; Z88.0 Allergy status to penicillin; Z88.2 Allergy status to sulfonamides; Z88.1 Allergy status to other antibiotic agents; Z88.5 Allergy status to narcotic agent; Z88.8 Allergy status to other drugs, medicaments and biological substances

== ENCOUNTER → 2020-01-04 | Outpatient (CLI) | payer MEDICARE, OTHER ==
[~2020-01-04] MED LIST changes: +BIMA1SOL OU; +FLUC100T PO; +METO5TA PO
--- NOTE | 2020-01-06 07:17 | SLEEPCENT ---
DATE: 01/04/2020 ORDERED BY: Dr. Barbosa Nocturnal polysomnography was performed for evaluation of sleep physiology in this patient with a history of snoring, irregular breathing in sleep, and multiple medical comorbidities. There was 8 hours and 32 minutes of data reviewed. There was 399.5 minutes of sleep identified. Sleep latency was normal at 20 minutes. REM sleep was not achieved. Sleep architecture showed poor progression with some fragmentation. Overall sleep efficiency was 79%. The electrocardiogram showed an underlying sinus rhythm. Average heart rate 70 beats per minute. The rhythm may have been paced. EEG showed some alpha intrusion in two non-REM stages. No focal events were identified, and there were normal waveforms for wake and sleep. There were 40 respiratory events identified of 10 seconds in duration or greater for an apnea-hypopnea index of 6.1. The events were obstructive and not exclusive to sleep stage, more frequent in the supine posture. Arousals from respiratory events occurred 2.4 times per hour. Oxygen desaturations below 90% were seen. There was also significant activity in the limb leads, particularly early in the study. There were three trains of 30 events or more. Limb movement arousal index was 10.5. Snoring was noted over the entire course of the study. IMPRESSION: 1. Obstructive sleep apnea syndrome (G47.33). Apnea-hypopnea index 6.1. 2. Possible periodic limb movement disorder (G47.61). Limb movement arousal index 10.5. RECOMMENDATION: Sleep position retraining for avoidance of the supine posture may be helpful. Should the patient's symptoms persist, referral back to the sleep disorder center for pressure therapy could be considered. Pending response to the treatment of the obstructive respiratory disorder, interventions to reduce the frequency of arousals from limb activity may also be helpful. [facility]
--- NOTE | 2020-01-06 07:17 | SLEEPHOME ---
DATE: 01/03/2020 ORDERED BY: Dr. Adan Nocturnal polysomnography was performed for evaluation of sleep physiology in this patient with a history of excessive somnolence, irregular breathing in sleep, morning headaches, and nonrestorative sleep. There was 7 hours and 4 minutes of data reviewed. There was 371 minutes of sleep identified. Sleep latency was mildly prolonged at 21.5 minutes. REM latency was normal at 74.5 minutes. Sleep architecture was fairly well preserved. There was some fragmentation, however. Two long REM cycles were appreciated. Overall sleep efficiency was 88.6%. The electrocardiogram showed a sinus rhythm with average heart rate of 88 beats per minute. EEG showed normal waveforms for wake and sleep. There were 152 respiratory events identified of 10 seconds in duration or greater for an apnea-hypopnea index of 24.6. The events were primarily obstructive, not exclusive to sleep stage nor to body posture. Arousals from respiratory events were seen 3.6 times per hour, and oxygen desaturations were seen below 90%. There was some activity noted in the limb leads. Limb movement arousals were few. Snoring was noted over the entire study. IMPRESSION: Obstructive sleep apnea syndrome (G47.33). Apnea-hypopnea index 24.6. RECOMMENDATION: The patient should be encouraged to return to the sleep disorder center for pressure therapy. In the interim, alcohol and sedative avoidance should be practiced and caution exercised during the operation of motor vehicles. MTDD
== END ==
LOC: M SLEEP 20:00
PROVIDERS: ATTEND Internal Medicine Pulmonary Disease
DX: G47.33 Obstructive sleep apnea (adult) (pediatric) (principal)

== ENCOUNTER → 2020-01-19 | Outpatient (CLI) | payer MEDICARE, OTHER ==
[2020-01-19 17:52] LABS: ALBUMIN 3.3 GM/DL (3.2-5.2); ALT/SGPT 9 U/L (12-78); BLOOD UREA NITROGEN 21 MG/DL (7-18); CALCIUM LEVEL 8.9 MG/DL (8.8-10.2); CARBON DIOXIDE LEVEL 37 MEQ/L (21-32); CHLORIDE LEVEL 95 MEQ/L (98-107); CREATININE FOR GFR 1.54 MG/DL (0.55-1.30); GLOMERULAR FILTRATION RATE 34.7 (>39); GLUCOSE, FASTING 139 MG/DL (70-100); POTASSIUM SERUM 3.2 MEQ/L (3.5-5.1); SODIUM LEVEL 138 MEQ/L (136-145); TOTAL PROTEIN 5.7 GM/DL (6.4-8.2)
[2020-01-19 18:46] LABS: HEMOGLOBIN A1c 6.5 %
== END ==
LOC: M PLALAB 14:46
PROVIDERS: ATTEND Nurse Practitioner Family
DX: I50.42 Chronic combined sys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 (principal)

== ENCOUNTER 2020-01-23 21:07 | Emergency (ER) | payer MEDICARE, OTHER ==
[~2020-01-23] VITALS: Ht 157.5 cm; Wt 114.1 kg
[2020-01-23] MEDS ORDERED: FUROSEMIDE 40MG/4ML VIAL (J1940) IV ONE (22:30)
[2020-01-23] MEDS ORDERED: methylPREDNISolone 125MG 2ML VIAL IV ONE (22:30)
[2020-01-23] MEDS ORDERED: ASPIRIN 81 MG CHEW TABLET PO ONE (22:30)
[2020-01-23] MEDS ORDERED: COMBIVENT RESPIMAT 100-20MCG INHALER 4GM INH ONE (22:30)
[2020-01-23 22:35] LABS: BASO % 0.2 % (0.0-1.0); EOS % 0.4 % (0.0-3.0); HEMOGLOBIN 10.5 g/dl (12.0-15.5); LYMPH # 0.8 10^3/uL (1.5-5.0); MEAN CORPUSCULAR HEMOGLOBIN 28.1 pg (27.0-33.0); MEAN CORPUSCULAR HGB CONC 30.9 g/dl (32.0-36.5); MEAN CORPUSCULAR VOLUME 90.9 fl (80.0-96.0); MONO # 0.5 10^3/uL (0.0-0.8); NEUTROPHILS # 8.9 10^3/uL (1.5-8.5); NEUTROPHILS % 85.6 % (36.0-66.0); PLATELET COUNT, AUTOMATED 162 10^3/uL (150-450); RED BLOOD COUNT 3.74 10^6/uL (4.00-5.40); WHITE BLOOD COUNT 10.4 10^3/uL (4.0-10.0)
[2020-01-23 22:39] LABS: INR 2.35; PROTHROMBIN TIME 26.3 SECONDS (12.5-14.3)
[2020-01-23 22:47] LABS: ALBUMIN 3.1 GM/DL (3.2-5.2); ALT/SGPT 9 U/L (12-78); BILIRUBIN,DIRECT 0.3 MG/DL (0.0-0.2); BILIRUBIN,TOTAL 0.6 MG/DL (0.2-1.0); BLOOD UREA NITROGEN 24 MG/DL (7-18); CALCIUM LEVEL 9.2 MG/DL (8.8-10.2); CARBON DIOXIDE LEVEL 35 MEQ/L (21-32); CHLORIDE LEVEL 97 MEQ/L (98-107); CK-MB VALUE MASS < 1.0 NG/ML (<3.6); CPK CREATINE PHOSPHOKINASE 43 U/L (26-192); CREATININE FOR GFR 1.61 MG/DL (0.55-1.30); GLOMERULAR FILTRATION RATE 32.9 (>39); GLUCOSE, FASTING 149 MG/DL (70-100); MB/CK RELATIVE INDEX 2.33 (< OR =4); NT-PRO BNP 519 PG/ML (<450); POTASSIUM SERUM 3.5 MEQ/L (3.5-5.1); SODIUM LEVEL 139 MEQ/L (136-145); TOTAL PROTEIN 5.6 GM/DL (6.4-8.2); TROPONIN I < 0.02 NG/ML (< 0.10)
--- NOTE | 2020-01-23 23:32 | REPVR ---
PROCEDURE INFORMATION: Exam: XR Chest, 1 View Exam date and time: 01/23/2020 11:23 PM Age: 79 years old Clinical indication: Cough; Additional info: Dyspnea/cough TECHNIQUE: Imaging protocol: XR of the chest Views: 1 view. COMPARISON: CR PORTABLE CHEST X-RAY 2019-12-02 17:36 FINDINGS: Limitations: Limited by patient's body habitus. Tubes, catheters and devices: AICD/Pacemaker device is present, and its leads are in appropriate position. Lungs: Mild pulmonary vascular congestion. Mild interstitial opacities. Pleural space: Unremarkable. No pleural effusion. No pneumothorax. Heart/Mediastinum: Unremarkable. No cardiomegaly. Bones/joints: Unremarkable. IMPRESSION: Mild pulmonary vascular congestion. Mild interstitial opacities. Electronically signed by: Km Jackson On 01/23/2020 23:32:39 PM
[2020-01-24 01:01] LABS: CK-MB VALUE MASS 1.2 NG/ML (<3.6); CPK CREATINE PHOSPHOKINASE 27 U/L (26-192); MB/CK RELATIVE INDEX 4.44 (< OR =4); TROPONIN I < 0.02 NG/ML (< 0.10)
[2020-01-24 02:00] VITALS: BP 122/58
--- NOTE | 2020-01-24 09:21 | ECGEPIP ---
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
[2020-01-31] MEDS ORDERED: OXYC1TAB23 (13:44)
[2020-01-31] MEDS ORDERED: DILT1TAB12 (13:44)
== END 2020-01-24 02:15 | disposition home or self-care (01) ==
LOC: M ED 21:07
DX: I50.9 Heart failure, unspecified (principal); E87.70 Fluid overload, unspecified; J44.9 Chronic obstructive pulmonary disease, unspecified; R60.0 Localized edema; R06.82 Tachypnea, not elsewhere classified; I48.91 Unspecified atrial fibrillation; Z88.0 Allergy status to penicillin; Z88.2 Allergy status to sulfonamides; Z88.1 Allergy status to other antibiotic agents; Z88.5 Allergy status to narcotic agent; Z79.899 Other long term (current) drug therapy; Z79.01 Long term (current) use of anticoagulants; Z79.52 Long term (current) use of systemic steroids; Z79.84 Long term (current) use of oral hypoglycemic drugs
CPT/HCPCS: 36415; 71045; 80048; 80076; 82550; 82553; 83880; 84484; 85025; 85610; 93005; 94640; 94760; 96374; 96375; 99285; J1940; J2930

== ENCOUNTER → 2020-01-26 | Outpatient (CLI) | payer MEDICARE, OTHER ==
[~2020-01-26] MED LIST changes: +DILT1TAB12; +OXYC1TAB23
--- NOTE | 2020-01-26 15:07 | REPMRS ---
Patient History The patient states she had a clinical breast exam in December 2019. 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 Malignant US guided breast biopsy of the left breast, June 10, 2014. Digital Woman Screen Mammo: January 26, 2020 - Exam #: [id number] Bilateral CC and MLO view(s) were taken. Technologist: Mira Vivas Technologist Prior study comparison: September 11, 2017, bilateral digital mammo screening bilat, performed at [facility]. May 01, 2016, bilateral digital mammo screening bilat, performed at [facility]. May 01, 2015, bilateral digital mammo screening bilat, performed at [facility]. FINDINGS: There are scattered fibroglandular densities. The Volpara volumetric breast density category is: B. There are stable post treatment changes in the left breast. There is a moderate amount of residual fibroglandular tissue which is fairly symmetric. There is no interval development of dominant mass, architectural distortion, or grouped microcalcification typical of malignancy. There has been no change in the appearance of the mammogram from the prior studies. 3-D tomosynthesis shows no additional findings. Assessment: BI-RADS/ACR category 2 mammogram. Benign Findings. Recommendation Routine screening mammogram of both breasts in 1 year (for women over age 40). This mammogram was interpreted with the aid of an FDA-approved computer-aided dectection system. Electronically Signed By: John Thompson MD 01/26/20 [id number]
== END ==
LOC: M WHC 13:16
PROVIDERS: ATTEND Nurse Practitioner Family
DX: Z12.31 Encounter for screening mammogram for malignant neoplasm of breast (principal); Z85.3 Personal history of malignant neoplasm of breast

== ENCOUNTER 2020-03-07 19:36 | Emergency (ER) | payer MEDICARE, OTHER ==
[~2020-03-07] VITALS: Ht 157.5 cm; Wt 112.3 kg
[~2020-03-07 19:36] MED LIST changes: -BUPR150T3 PO; +BUPR150T4 PO; +ISOS1TAB35 PO; +ISOS1TAB36 PO; -ISOS30TA4 PO; -ISOS60TA2 PO; -LISI-542 PO; +LISI-898 PO
--- OUTSIDE RECORDS SUMMARY | 2020-03-07 19:46 | CCD | Continuity of Care Document ---
Author Author Sana HERRERA [employer] Organization Unknown Address [address] [place] [address] Phone [phone] Care Team Providers Care Montessori Teacher Name Role Phone Dhaval Manuel MD AUTM [phone] Nuzhat Langley MD AUTM [phone] Roberto Wallace MD AUTM [phone] [facility] Surgery Practice - Surgery AUTM [phone] Freddy Gallegos MD AUTM [phone] Problems Active Problems Provider Date Essential hypertension Lance Li M.D. Onset: 12/2010 Vitamin D deficiency Lance Li M.D. Onset: 11/27 Obesity Lance Li M.D. Onset: 2010 Tobacco user Lance Li M.D. Onset: 2010 Asthma without status asthmaticus Lance Li M.D. Onset: 11/27/2010 Depressive disorder Lance Li M.D. Onset: 2010 Gastroesophageal reflux disease Lance Li M.D. O nset: 11/27/2010 Chronic obstructive lung disease Lance Li M.D. Onset: 11/27/2010 Osteoporosis Lance Li M.D. Onset: 2010 Atopic dermatitis Lance Li M.D. Onset: 2010 Type 2 diabetes mellitus Lance Li M.D. Onset: 1 Allergic rhinitis Lance Li M.D. Onset: 2017 Atrial fibrillation Lance Li M.D. 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 MerlinCriselda gomez FNP Onset: 10/20/2019 Type 2 diabetes mellitus in obese 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 FNP Onset : 10/20/2019 Chronic obstructive pulmonary disease with (acute) exa cerbation 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 FNP Onset: 10/20/2019 Social History Type Date Description Comments Sex Unknown Tobacco Use Start: Unknown End: Unknown Current Cigarette Sm oker Packs Daily 1 Tobacco Use Start: Unknown Never Used Smokeless Tobacco ETOH Use Occasionally consumes alcohol Tobacco Use Start: 02/17/61 End: 08/15/13 Patient is a forme r smoker 1 ppd Recreational Drug Use Denies Drug Use Smoking Status Reviewed: 01/31/20 Patient is a former smoker 1 ppd Exercise Type/Frequency Exercises regularly Sun Exposure Does not use sunscreen Seat Belt/Car Seat Always uses seat belt Smoke Alarms Yes Smoke Alarms Carbon Monoxide Detector: Yes Allergies, Adverse Reactions, Alerts Active Allergies Reaction Severity Comments Date Codeine 06/27/2003 Demerol 06/27/2003 Septra rash 11/24/2003 Doxycycline vomiting 09/10/2018 Medications Active Medications SIG Qnty Indications Ordering Provide r Date First-Mouthwash BLM Suspension swish and spit 15mL 4-6 times per day. Do not swallow 711ml K12.0 Criselda Ruelas FNP 01/31/2020 Oxycodone-Acetaminophen 5-325mg Ta blets 1 tab by mouth every 6 hours as needed for leg pain 60tabs 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 FNP 01/12/2020 Torsemide 20mg Tablets take 1-2 tablet twice a day 120tabs 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 FNP 12/08/2019 Metolazone 2.5mg Tablets 1 by mouth 1/2 hour before taking torsemide every day 90tabs 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 FNP 12/08/2019 Tylenol PM Extra Strength 500-25mg Tablets take 1 tablets before bed as scheduled Un known 11/27/2019 Medical Compression Socks/20-30MMHG/Extr a Large/Long Misc please measure and dispense for lower extremity edema 2units R60.0 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 FNP 10/20/2019 Bacitracin (External) 500Unit/GM O intment apply to affected areas bid 85.2gm 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 FNP 09/20/2019 Metformin HCL 500mg Tablets 1 by mouth daily with dinner 90tabs 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 FNP 0 O2 AT 2L/Min at bedtime via nasal cannula. Criselda Valdes FNP 08/09/2019 Potassium Chloride Keren ER 20Meq Tablets ER 1 by mouth bid Unknown 08/07/2019 Acetaminophen 325mg Tablets 2 by mouth every 6 hours as needed for leg pain. Unknown 08/07/2019 Bupropion Hydrochloride ER (XL) 150mg Tablets ER 24HR take one tablet by mouth once a day 90tabs F32.9 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 FNP 07/06/2019 Prednisone 5mg Tablets 1 tablet by mouth once a day Unknown 06/29/2019 Alcohol Prep 70% Pads use twice daily as directed before testing bs 1Box 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 FNP 12/03/2018 Fluticasone Propionate 50mcg/Act Suspension one spray each side of nose daily 32gm J30.9 Criselda Cabrera FNP 10/14/2018 Ipratropium [place]/Albuterol Sulfate 0.5-2.5(3)mg/3ML Solution use 1 vial via nebulizer 4 times daily a s needed for coughing and wheezing 90ml 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 FNP 10/14 Neosporin Original 3.5-400-5000 Oi ntment apply to rash twice a day as needed 28.300gm R21 Emerson Herrera [facility] 12/09/2017 Freestyle Lite Lancets [facility] use to check fasting blood glusose twice daily, dx: e11.9 200units Criselda Ruelas [employer] 04/07/2017 Freestyle Lite Test Strips use to check blood glucose 2 times a day, e11.9 200units Vivian Herrera [employer] 04/07/2017 Freestyle Lite Blood Glucose Monitoring System Device use for monitoring blood glucose twice a day, dx e11.9, prognosis good, duration 99 months 1units 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 [facility] Citalopram Hydrobromide 40mg Table ts 1 tab by mouth every day 90tabs F32.9 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, [facility] 03/13/19 18 Proair HFA 108(90Base) mcg/Act Aer osol 2 puffs every 4 hours as needed for wheezing and coughing 3units 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 [facility] 04/12/2014 Lumigan 0.01% Solution one gtt. each eye at at bedtime Unknown Diltiazem HCL 60mg Tablets 1 tab by mouth once a at bedtime 90tabs 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 [employer] 0 Advair Diskus 500-50mcg/Dose Aeros ol inhale one puff by mouth every day 60units Vivian Herrera [facility] Xarelto 20mg Tablets 1 by mouth every day Jason Cosby [facility] History Medications Levofloxacin 750mg Tablets daily by mouth daily for 10 days 10tabs J44.9 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 [facility] 0 - 01/31/2020 Torsemide 10mg Tablets take 1 tablet every morning Unknown 11/27/2019 - Levofloxacin 750mg Tablets daily by mouth daily for 10 days 10tabs 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 [facility] 0 - 10/20/2019 Lasix 40mg Tablets take one tablet by mouth every morning and as needed in the afternoon 180tabs 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 [facility] 08/20/2019 - 11/30/2019 Oxycodone-Acetaminophen 5-325mg Ta blets 1 tab by mouth every 6 hours as needed for leg pain 60tabs 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 [facility] 08/12/2019 - 01/12/2020 Levaquin 750 mg tab Take 1 tab once a day x 14 days Unknown 08/07/2019 - 08/21/2019 Penicillin V Potassium 500mg Table ts 1 tab by mouth two times a day x 14 days Unknown 08/07/2019 - 08/21/2019 Torsemide 20mg Tablets take 1 tablet every morning R60.0 Unknown 08/07/2019 - Metolazone 2.5mg Tablets 1 by mouth 1/2 hour prior to lasix or Torsemide every day Unkno wn 08/07/2019 - 08/13/2019 Senna-Docusate Sodium 8.6-50mg Tab lets 1 tab once a day Unknown 08/07/2019 - Oxycodone HCL 5mg Tablets 1 tab by mouth every 6 hours as needed for left leg pain Not to exceed 20 mg /24 hours. 5tabs Unknown 08/07/2019 - 020 Immunizations CPT Code Status Date Vaccine Lot # [id number] Given 03/25/2018 Pneumococcal Vaccine [id number] 53682 Given 12/09/2017 Influenza Virus Vaccine, Quadrivalent,age 3 and up,multidose vial [id number] Q2038 Given 12/04/2016 Influenza Vaccine (Fluzone)( medicare) [id number] Q2038 Given 11/14/2015 Influenza Vaccine (Fluzone)( medicare) [id number] Given 10/12/2015 Prevnar 13 For Adults 15700 Given 11/17/2013 Influenza Vaccination 00505 Given 11/18/2007 Influenza Vaccination [id number] 28279 Given 12/12/2006 Influenza Vaccination [id number] Vital Signs Date Vital Result Comment 01/31/2020 12:04pm BP Systolic 70 mmHg BP Diastolic 37 mmHg Heart Rate 76 /min Body Temperature 97.1 F Respiratory Rate 20 /min Height 61.5 inches 5'1.50" Weight 208.25 lb O2 % BldC Oximetry 96 % Peak Expiratory Flow Rate 292 Estimated Peak Flow Rate [place] Body Weight 105 lb BMI (Body Mass Index) 38.7 kg/m2 01/19/2020 2:18pm BP Systolic 108 mmHg BP Diastolic 77 mmHg Heart Rate 93 /min Body Temperature 97.3 F Respiratory Rate 22 /min Height 61.5 inches 5'1.50" Weight 252.50 lb O2 % BldC Oximetry 94 % Peak Expiratory Flow Rate 292 Estimated Peak Flow Rate [place] Body Weight 105 lb BMI (Body Mass Index) 46.9 kg/m2 Results Test Acquired Date Facility Test Result H/L Range Note CBC With Differential 01/31/2020 [facility] [place] [address] [phone] White Blood Count 9.7 10 Normal 4.0-10.0 Red Blood Count 3.88 10 Low 4.00-5.40 Hemoglobin 10.8 g/dL Low 12.0-15.5 Hematocrit 35.2 % Low 36.0-47.0 Mean Corpuscular Volume 90.7 fl Normal 80.0-96.0 Mean Corpuscular Hemoglobin 27.8 pg Normal 27.0-33.0 Mean Corpuscular HGB Conc 30.7 g/dL Low 32.0-36.5 Red Cell Distribution Width 16.8 % High 11.5-14.5 Platelet Count, Automated 144 10 Low 150-450 Neutrophils % 80.7 % High 36.0-66.0 Lymph % 11.0 % Low 24.0-44.0 Delta % 6.1 % High 0.0-5.0 Eos % 0.9 % Normal 0.0-3.0 Baso % 0.4 % Normal 0.0-1.0 Immature Granulocyte % 0.9 % Normal 0-3.0 Nucleated Red Blood Cell % 0.0 % Normal 0-0 Neutrophils # 7.8 10 Normal 1.5-8.5 Lymph # 1.1 10 Low 1.5-5.0 Delta # 0.6 10 Normal 0.0-0.8 Eos # 0.1 10 Normal 0.0-0.5 Baso # 0.0 10 Normal 0.0-0.2 Cardiac Marker Panel 01/31/[address] [facility] [place] [address] [phone] CPK Creatine Phosphokinase 25 U/L Low 26-19 2 CK-MB Value Mass 1.1 NG/ML Normal <3.6 MB/CK Relative Index 4.40 High < Or =4 1 Troponin I < 0.02 NG/ML Normal < 0.10 2 Liver Profile 01/31/[address] [facility] [place] [address] [phone] Ast/Sgot 4 U/L Low 7-37 Alt/SGPT 10 U/L Low 12-78 Alkaline Phosphatase 53 U/L Normal 45-117 Bilirubin,Total 1.1 mg/dL High 0.2-1.0 Bilirubin,Direct 0.4 mg/dL High 0.0-0.2 Total Protein 5.7 GM/DL Low 6.4-8.2 Albumin 3.4 GM/DL Normal 3.2-5.2 Albumin/Globulin Ratio 1.5 Normal 1.2-2.2 Basic Metabolic Profile 01/31/2020 [place] [address] [phone] Glucose, Fasting 125 mg/dL High 70-100 Blood Urea Nitrogen 30 mg/dL High 7-18 Creatinine For GFR 1.48 mg/dL High 0.55-1.30 Glomerular Filtration Rate 36.3 Low >39 3 Sodium Level 141 mEq/L Normal 136-145 Potassium Serum 3.4 mEq/L Low 3.5-5.1 Chloride Level 99 mEq/L Normal 98-107 Carbon Dioxide Level 38 mEq/L High 21-32 Anion Gap 4 mEq/L Low 8-16 Calcium Level 9.5 mg/dL Normal 8.8-10.2 Laboratory test finding 01/31/2020 Patient Service [place] [id number] [phone] NT-Pro BNP 226 pg/mL Normal <450 PT & Aptt 01/31/2020 Patient Service [facility] [place] [address] [phone] Prothrombin Time 23.1 seconds High 12.5-14.3 Inr 2.00 Normal 4 Partial Thromboplastin Time 33.4 seconds Normal 24.2-38.5 Cardiac Marker Panel 01/24/[address] [facility] [address] [phone] CPK Creatine Phosphokinase 27 U/L Normal 26-19 2 CK-MB Value Mass 1.2 NG/ML Normal <3.6 MB/CK Relative Index 4.44 High < Or =4 5 Troponin I < 0.02 NG/ML Normal < 0.10 6 Laboratory test finding 01/23/2020 [place] [address] [phone] NT-Pro BNP 519 pg/mL High <450 Basic Metabolic Profile 01/23/2020 [place] [address] [phone] Glucose, Fasting 149 mg/dL High 70-100 Blood Urea Nitrogen 24 mg/dL High 7-18 Creatinine For GFR 1.61 mg/dL High 0.55-1.30 Glomerular Filtration Rate 32.9 Low >39 7 Sodium Level 139 mEq/L Normal 136-145 Potassium Serum 3.5 mEq/L Normal 3.5-5.1 8 Chloride Level 97 mEq/L Low 98-107 Carbon Dioxide Level 35 mEq/L High 21-32 Anion Gap 7 mEq/L Low 8-16 Calcium Level 9.2 mg/dL Normal 8.8-10.2 CBC With Differential 01/23/2020 [place] [address] [phone] White Blood Count 10.4 10 High 4.0-10.0 Red Blood Count 3.74 10 Low 4.00-5.40 Hemoglobin 10.5 g/dL Low 12.0-15.5 Hematocrit 34.0 % Low 36.0-47.0 Mean Corpuscular Volume 90.9 fl Normal 80.0-96.0 Mean Corpuscular Hemoglobin 28.1 pg Normal 27.0-33.0 Mean Corpuscular HGB Conc 30.9 g/dL Low 32.0-36.5 Red Cell Distribution Width 16.8 % High 11.5-14.5 Platelet Count, Automated 162 10 Normal 150-450 Neutrophils % 85.6 % High 36.0-66.0 Lymph % 8.0 % Low 24.0-44.0 Delta % 5.0 % Normal 0.0-5.0 Eos % 0.4 % Normal 0.0-3.0 Baso % 0.2 % Normal 0.0-1.0 Immature Granulocyte % 0.8 % Normal 0-3.0 Nucleated Red Blood Cell % 0.0 % Normal 0-0 Neutrophils # 8.9 10 High 1.5-8.5 Lymph # 0.8 10 Low 1.5-5.0 Delta # 0.5 10 Normal 0.0-0.8 Eos # 0.0 10 Normal 0.0-0.5 Baso # 0.0 10 Normal 0.0-0.2 Prothrombin Time/Inr 01/23/2020 [place] [address] [phone] Prothrombin Time 26.3 seconds High 12.5-14.3 Inr 2.35 Normal 9 Liver Profile 01/23/[address] [facility] [place] [address] [phone] Ast/Sgot 7 U/L Normal 7-37 Alt/SGPT 9 U/L Low 12-78 Alkaline Phosphatase 54 U/L Normal 45-117 Bilirubin,Total 0.6 mg/dL Normal 0.2-1.0 Bilirubin,Direct 0.3 mg/dL High 0.0-0.2 Total Protein 5.6 GM/DL Low 6.4-8.2 Albumin 3.1 GM/DL Low 3.2-5.2 Albumin/Globulin Ratio 1.2 Normal 1.2-2.2 Cardiac Marker Panel 01/23/[address] [facility] [place] [address] [phone] CPK Creatine Phosphokinase 43 U/L Normal 26-19 2 CK-MB Value Mass < 1.0 NG/ML Normal <3.6 MB/CK Relative Index 2.33 Normal < Or =4 10 Troponin I < 0.02 NG/ML Normal < 0.10 11 Comprehensive Metabolic Profil 01/19/2020 [facility] [phone] Glucose, Fasting 139 mg/dL High 70-100 Blood Urea Nitrogen 21 mg/dL High 7-18 Creatinine For GFR 1.54 mg/dL High 0.55-1.30 Glomerular Filtration Rate 34.7 Low >39 1 2 Sodium Level 138 mEq/L Normal 136-145 Potassium Serum 3.2 mEq/L Low 3.5-5.1 Chloride Level 95 mEq/L Low 98-107 Carbon Dioxide Level 37 mEq/L High 21-32 Anion Gap 6 mEq/L Low 8-16 Calcium Level 8.9 mg/dL Normal 8.8-10.2 Ast/Sgot < 3 U/L Low 7-37 Alt/SGPT 9 U/L Low 12-78 Alkaline Phosphatase 59 U/L Normal 45-117 Bilirubin,Total 1.0 mg/dL Normal 0.2-1.0 Total Protein 5.7 GM/DL Low 6.4-8.2 Albumin 3.3 GM/DL Normal 3.2-5.2 Albumin/Globulin Ratio 1.4 Normal 1.2-2.2 Hemoglobin A1c 01/19/2020 [facility] nter [phone] Hemoglobin A1c 6.5 % Normal 13 Estimated Average Glucose 140 mg/dL High 60-110 Istat Chem8+ Panel 12/02/2019 [place] [address] [phone] iSTAT HCT 31.0 % Low 38.0-51.0 iSTAT Glucose 116 mg/dL High 70-105 iSTAT Sodium 140 mEq/L Normal 136-145 iSTAT Potassium 3.8 mEq/L Normal 3.5-5.1 iSTAT CA++ 4.8 mg/dL Normal 4.5-5.3 iSTAT Chloride 99 mEq/L Normal 98-109 iSTAT Co2 28.0 MM/L High 23.0-27.0 iSTAT BUN 17 mg/dL Normal 8-26 iSTAT Creatinine 1.1 mg/dL Normal 0.6-1.3 Laboratory test finding 12/02/2019 [place] [address] [phone] iSTAT Troponin 0.00 NG/ML Normal 0.00-0.08 Laboratory test finding 12/02/2019 [place] [address] [phone] NT-Pro BNP 377 pg/mL Normal <450 Phenobarbital Level 2.1 UG/ML Low 15.0-40.0 Thyroid Stimulating Hormone 1.970 uIU/ML Normal 0.358-3.740 Lactic Acid Sepsis Protocol 1.4 mmol/L Normal 0.4-2.0 14 Laboratory test finding 12/02/2019 [place] [address] [phone] Sars Covid-19 Amplification NEGATIVE Normal Nega tive 15 Venous Blood Gas 12/02/2019 [place] [address] [phone] Venous PH 7.482 units High 7.330-7.430 Venous Partial Pressure Co2 37.5 mmHg Low 38.0-50.0 Venous Partial Pressure O2 135.7 mmHg High 30.0-50.0 Venous Total Co2 28.6 mEq/L High 24.0-28.0 Venous Hco3 27.4 mEq/L High 23.0-27.0 Venous Base Excess 3.9 High -2.0-2.0 Venous Standard Hco3 28.0 mEq/L Normal Venous O2 Saturation 98.9 % High 60.0-80.0 Liver Profile 12/02/[address] [facility] [place] [address] [phone] Ast/Sgot 7 U/L Normal 7-37 Alt/SGPT 11 U/L Low 12-78 Alkaline Phosphatase 59 U/L Normal 45-117 Bilirubin,Total 0.7 mg/dL Normal 0.2-1.0 Bilirubin,Direct 0.3 mg/dL High 0.0-0.2 Total Protein 5.6 GM/DL Low 6.4-8.2 Albumin 3.2 GM/DL Normal 3.2-5.2 Albumin/Globulin Ratio 1.3 Normal 1.2-2.2 CBC With Differential 12/02/[address] [facility] [place] [address] [phone] White Blood Count 8.8 10 Normal 4.0-10.0 Red Blood Count 3.67 10 Low 4.00-5.40 Hemoglobin 10.0 g/dL Low 12.0-15.5 Hematocrit 32.9 % Low 36.0-47.0 Mean Corpuscular Volume 89.6 fl Normal 80.0-96.0 Mean Corpuscular Hemoglobin 27.2 pg Normal 27.0-33.0 Mean Corpuscular HGB Conc 30.4 g/dL Low 32.0-36.5 Red Cell Distribution Width 17.1 % High 11.5-14.5 Platelet Count, Automated 169 10 Normal 150-450 Neutrophils % 79.0 % High 36.0-66.0 Lymph % 10.9 % Low 24.0-44.0 Delta % 7.1 % High 0.0-5.0 Eos % 1.9 % Normal 0.0-3.0 Baso % 0.5 % Normal 0.0-1.0 Immature Granulocyte % 0.6 % Normal 0-3.0 Nucleated Red Blood Cell % 0.0 % Normal 0-0 Neutrophils # 6.9 10 Normal 1.5-8.5 Lymph # 1.0 10 Low 1.5-5.0 Delta # 0.6 10 Normal 0.0-0.8 Eos # 0.2 10 Normal 0.0-0.5 Baso # 0.0 10 Normal 0.0-0.2 Prothrombin Time/Inr 12/02/[address] [place] [address] [phone] Prothrombin Time 19.4 seconds High 12.5-14.3 Inr 1.60 Normal 16 Laboratory test finding 11/24/2019 [place] [address] [phone] Erythrocyte Sedimentation Rate 11 mm/hr Normal 0 -30 CBC With Differential 11/24/2019 [place] [address] [phone] White Blood Count 8.2 10 Normal 4.0-10.0 Red Blood Count 3.61 10 Low 4.00-5.40 Hemoglobin 9.7 g/dL Low 12.0-15.5 Hematocrit 32.7 % Low 36.0-47.0 Mean Corpuscular Volume 90.6 fl Normal 80.0-96.0 Mean Corpuscular Hemoglobin 26.9 pg Low 27.0-33.0 Mean Corpuscular HGB Conc 29.7 g/dL Low 32.0-36.5 Red Cell Distribution Width 18.0 % High 11.5-14.5 Platelet Count, Automated 158 10 Normal 150-450 Neutrophils % 80.5 % High 36.0-66.0 Lymph % 10.7 % Low 24.0-44.0 Delta % 5.6 % High 0.0-5.0 Eos % 2.1 % Normal 0.0-3.0 Baso % 0.5 % Normal 0.0-1.0 Immature Granulocyte % 0.6 % Normal 0-3.0 Nucleated Red Blood Cell % 0.0 % Normal 0-0 Neutrophils # 6.6 10 Normal 1.5-8.5 Lymph # 0.9 10 Low 1.5-5.0 Delta # 0.5 10 Normal 0.0-0.8 Eos # 0.2 10 Normal 0.0-0.5 Baso # 0.0 10 Normal 0.0-0.2 Basic Metabolic Profile 11/24/2019 [place] [address] [phone] Glucose, Fasting 139 mg/dL High 70-100 Blood Urea Nitrogen 17 mg/dL Normal 7-18 Creatinine For GFR 1.27 mg/dL Normal 0.55-1.30 Glomerular Filtration Rate 43.4 Normal >39 1 7 Sodium Level 140 mEq/L Normal 136-145 Potassium Serum 4.0 mEq/L Normal 3.5-5.1 Chloride Level 105 mEq/L Normal 98-107 Carbon Dioxide Level 30 mEq/L Normal 21-32 Anion Gap 5 mEq/L Low 8-16 Calcium Level 9.2 mg/dL Normal 8.8-10.2 Laboratory test finding 11/24/2019 [place] [address] [phone] NT-Pro BNP 244 pg/mL Normal <450 Thyroid Stimulating Hormone 2.460 uIU/ML Normal 0.358-3.740 C Reactive Protein Quantitativ 0.77 mg/dL High 0.00-0.30 Liver Profile 11/24/2019 [place] [address] [phone] Ast/Sgot 7 U/L Normal 7-37 Alt/SGPT 12 U/L Normal 12-78 Alkaline Phosphatase 56 U/L Normal 45-117 Bilirubin,Total 0.9 mg/dL Normal 0.2-1.0 Bilirubin,Direct 0.3 mg/dL High 0.0-0.2 Total Protein 5.5 GM/DL Low 6.4-8.2 Albumin 3.2 GM/DL Normal 3.2-5.2 Albumin/Globulin Ratio 1.4 Normal 1.2-2.2 Cardiac Marker Panel 11/24/[address] [place] [address] [phone] CPK Creatine Phosphokinase 26 U/L Normal 26-19 2 CK-MB Value Mass 1.2 NG/ML Normal <3.6 MB/CK Relative Index 4.62 High < Or =4 18 Troponin I < 0.02 NG/ML Normal < 0.10 19 CBC With Differential 10/10/2019 [place] [address] [phone] White Blood Count 9.0 10 Normal 4.0-10.0 Red Blood Count 3.79 10 Low 4.00-5.40 Hemoglobin 10.3 g/dL Low 12.0-15.5 Hematocrit 33.5 % Low 36.0-47.0 Mean Corpuscular Volume 88.4 fl Normal 80.0-96.0 Mean Corpuscular Hemoglobin 27.2 pg Normal 27.0-33.0 Mean Corpuscular HGB Conc 30.7 g/dL Low 32.0-36.5 Red Cell Distribution Width 16.8 % High 11.5-14.5 Platelet Count, Automated 155 10 Normal 150-450 Neutrophils % 80.0 % High 36.0-66.0 Lymph % 13.0 % Low 24.0-44.0 Delta % 5.9 % High 0.0-5.0 Eos % 0.2 % Normal 0.0-3.0 Baso % 0.2 % Normal 0.0-1.0 Immature Granulocyte % 0.7 % Normal 0-3.0 Nucleated Red Blood Cell % 0.0 % Normal 0-0 Neutrophils # 7.2 10 Normal 1.5-8.5 Lymph # 1.2 10 Low 1.5-5.0 Delta # 0.5 10 Normal 0.0-0.8 Eos # 0.0 10 Normal 0.0-0.5 Baso # 0.0 10 Normal 0.0-0.2 Laboratory test finding 10/10/2019 [place] [address] [phone] Lactic Acid Sepsis Protocol 2.0 mmol/L Normal 0.4- 2.0 20 Cardiac Marker Panel 10/10/2019 [place] [address] [phone] CPK Creatine Phosphokinase 25 U/L Low 26-19 2 CK-MB Value Mass 1.0 NG/ML Normal <3.6 MB/CK Relative Index 4.00 Normal < Or =4 21 Troponin I < 0.02 NG/ML Normal < 0.10 22 Liver Profile 10/10/2019 [place] [address] [phone] Ast/Sgot 11 U/L Normal 7-37 Alt/SGPT 10 U/L Low 12-78 Alkaline Phosphatase 56 U/L Normal 45-117 Bilirubin,Total 0.6 mg/dL Normal 0.2-1.0 Bilirubin,Direct 0.2 mg/dL Normal 0.0-0.2 Total Protein 5.7 GM/DL Low 6.4-8.2 Albumin 3.4 GM/DL Normal 3.2-5.2 Albumin/Globulin Ratio 1.5 Normal 1.2-2.2 Basic Metabolic Profile 10/10/2019 Patient Service [place], [place] [id number] [phone] Glucose, Fasting 108 mg/dL High 70-100 Blood Urea Nitrogen 17 mg/dL Normal 7-18 Creatinine For GFR 1.25 mg/dL Normal 0.55-1.30 Glomerular Filtration Rate 44.2 Normal >39 2 3 Sodium Level 141 mEq/L Normal 136-145 Potassium Serum 3.9 mEq/L Normal 3.5-5.1 Chloride Level 106 mEq/L Normal 98-107 Carbon Dioxide Level 29 mEq/L Normal 21-32 Anion Gap 6 mEq/L Low 8-16 Calcium Level 9.6 mg/dL Normal 8.8-10.2 Laboratory test finding 10/10/2019 [place] [address] [phone] NT-Pro BNP 264 pg/mL Normal <450 Thyroxine (T4) 8.4 g/dL Normal 4.5-12.0 Thyroid Stimulating Hormone 1.340 uIU/ML Normal 0.358-3.740 Venous Blood Gas 10/10/2019 Patient Service [place], [place] [id number] [phone] Venous PH 7.380 units Normal 7.330-7.430 Venous Partial Pressure Co2 42.1 mmHg Normal 38.0-50.0 Venous Partial Pressure O2 66.4 mmHg High 30.0-50.0 Venous Total Co2 24.3 mEq/L Normal 24.0-28.0 Venous Hco3 24.3 mEq/L Normal 23.0-27.0 Venous Base Excess -0.8 Normal -2.0-2.0 Venous Standard Hco3 23.7 mEq/L Normal Venous O2 Saturation 91.3 % High 60.0-80.0 Comprehensive Metabolic Profil 08/29/2019 [facility] [phone] Glucose, Fasting 132 mg/dL High 70-100 Blood Urea Nitrogen 12 mg/dL Normal 7-18 Creatinine For GFR 1.14 mg/dL Normal 0.55-1.30 Glomerular Filtration Rate 49.2 Normal >39 2 4 Sodium Level 141 mEq/L Normal 136-145 Potassium Serum 4.1 mEq/L Normal 3.5-5.1 Chloride Level 106 mEq/L Normal 98-107 Carbon Dioxide Level 27 mEq/L Normal 21-32 Anion Gap 8 mEq/L Normal 8-16 Calcium Level 8.5 mg/dL Low 8.8-10.2 Ast/Sgot 11 U/L Normal 7-37 Alt/SGPT 12 U/L Normal 12-78 Alkaline Phosphatase 53 U/L Normal 45-117 Bilirubin,Total 0.8 mg/dL Normal 0.2-1.0 Total Protein 5.6 GM/DL Low 6.4-8.2 Albumin 3.3 GM/DL Normal 3.2-5.2 Albumin/Globulin Ratio 1.4 Normal 1.2-2.2 Laboratory test finding 08/29/2019 [facility] [phone] Magnesium Level 2.0 mg/dL Normal 1.8-2.4 Hemoglobin A1c 08/29/2019 [facility] [phone] Hemoglobin A1c 8.1 % Normal 25 Estimated Average Glucose 186 mg/dL High 60-110 Lipid Panel 08/29/2019 [facility] nter [phone] Triglycerides Level 75 mg/dL Normal <150 Cholesterol Level 121 mg/dL Normal <200 HDL Cholesterol 50 mg/dL Normal >40 LDL Cholesterol 56 mg/dL Normal <100 Non-HDL-C 71 mg/dL Normal Cholesterol Risk Ratio 2.420 Normal <5 Basic Metabolic Profile 08/23/2019 Patient [facility] [place], [place] [id number] [phone] Glucose, Fasting 163 mg/dL High 70-100 Blood Urea Nitrogen 19 mg/dL High 7-18 Creatinine For GFR 1.14 mg/dL Normal 0.55-1.30 Glomerular Filtration Rate 49.2 Normal >39 2 6 Sodium Level 140 mEq/L Normal 136-145 Potassium Serum 4.8 mEq/L Normal 3.5-5.1 Chloride Level 105 mEq/L Normal 98-107 Carbon Dioxide Level 29 mEq/L Normal 21-32 Anion Gap 6 mEq/L Low 8-16 Calcium Level 9.4 mg/dL Normal 8.8-10.2 1 DIAGNOSIS CRITERIA MMB ng/ml Relative Index (RI) NON-AMI < or = 5 N/A GOYAL ZONE > 5 < or = 4 AMI > 5 > 4 2 Troponin I Reference Interva l for Navidogta [employer]: 99th Percentile= 0.00-0.045 ng/ml Risk Stratification: <= 0.10 ng/ml Decreased Risk for Adverse Clinical Events. 0.10-1.50 ng/ml Increased Risk for Adv erse Clinical Events. Evaluation of additional criterion and/or repeat testing in 2-6 hours is suggested to rule out myocardial damage. >= 1.50 ng/ml Indicative of Myocardial Injury. 3 Units are mL/min/1.73 m2 Chronic Kidney Disease Staging per NKF: Stage I & II GFR >=60 Normal to Mildly Decreased Stage III GFR 30-59 Moderately Decreased Stage IV GFR 15-29 Severely Decreased Stage V GFR <15 Very Little GFR Left ESRD GFR <15 on GROCERY CARRIER 4 THERAPUTIC HUMAN INR VALUES INDICATIONS NORMAL RANGES PROPHYLAXIS/TREATMENT OF: VENOUS THROMBOSIS 2.0-3.0 PULMONARY EMBOLISM 2.0-3.0 PREVENTION OF SYSTEMIC EMBOLISM FROM: TISSUE HEART VALVES 2.0-3.0 ACUTE MYOCARDIAL INFARCTION 2.0-3.0 VALVULAR HEART DISEASE 2.0-3.0 ATRIAL FIBRILLATION 2.0-3.0 MECHANICAL VALVES(HIGH RISK) 2.5-3.5 RECURRENT MYOCARDIAL INFARCTION 2.5-3.5 5 DIAGNOSIS CRITERIA MMB ng/ml Relative Index (RI) NON-AMI < or = 5 N/A GOYAL ZONE > 5 < or = 4 AMI > 5 > 4 6 Troponin I Reference Interva l for [employer]: 99th Percentile= 0.00-0.045 ng/ml Risk Stratification: <= 0.10 ng/ml Decreased Risk for Adverse Clinical Events. 0.10-1.50 ng/ml Increased Risk for Adv erse Clinical Events. Evaluation of additional criterion and/or repeat testing in 2-6 hours is suggested to rule out myocardial damage. >= 1.50 ng/ml Indicative of Myocardial Injury. 7 Units are mL/min/1.73 m2 Chronic Kidney Disease Staging per NKF: Stage I & II GFR >=60 Normal to Mildly Decreased Stage III GFR 30-59 Moderately Decreased Stage IV GFR 15-29 Severely Decreased Stage V GFR <15 Very Little GFR Left ESRD GFR <15 on GROCERY CARRIER 8 Testing was performed on an icteric specimen. This specimen has an elevated potassium level but there is NO visible hemolysis noted. 9 THERAPUTIC HUMAN INR VALUES INDICATIONS NORMAL RANGES PROPHYLAXIS/TREATMENT OF: VENOUS THROMBOSIS 2.0-3.0 PULMONARY EMBOLISM 2.0-3.0 PREVENTION OF SYSTEMIC EMBOLISM FROM: TISSUE HEART VALVES 2.0-3.0 ACUTE MYOCARDIAL INFARCTION 2.0-3.0 VALVULAR HEART DISEASE 2.0-3.0 ATRIAL FIBRILLATION 2.0-3.0 MECHANICAL VALVES(HIGH RISK) 2.5-3.5 RECURRENT MYOCARDIAL INFARCTION 2.5-3.5 10 DIAGNOSIS CRITERIA MMB ng/ml Relative Index (RI) NON-AMI < or = 5 N/A GOYAL ZONE > 5 < or = 4 AMI > 5 > 4 11 Troponin I Reference Interva l for [employer] LOCI: 99th Percentile= 0.00-0.045 ng/ml Risk Stratification: <= 0.10 ng/ml Decreased Risk for Adverse Clinical Events. 0.10-1.50 ng/ml Increased Risk for Adv erse Clinical Events. Evaluation of additional criterion and/or repeat testing in 2-6 hours is suggested to rule out myocardial damage. >= 1.50 ng/ml Indicative of Myocardial Injury. 12 Units are mL/min/1.73 m2 Chronic Kidney Disease Staging per NKF: Stage I & II GFR >=60 Normal to Mildly Decreased Stage III GFR 30-59 Moderately Decreased Stage IV GFR 15-29 Severely Decreased Stage V GFR <15 Very Little GFR Left ESRD GFR <15 on GROCERY CARRIER 13 REFERENCE RANGES: <=5.6% NORMAL 5.7-6.4% SUGGESTS IMPAIRED GLUCOSE META BOLISM/PREDIABETIC >= 6.5% ABNORMAL 14 Y/N query for Sepsis Lactate Rule: Y 15 A false negative result may occur if a specimen is improperly collected, transported or handled. False negative results may also occur if inadequate numbers of organisms are present in the specimen. As with any molecular test, mutations within the target regions of Xpert Xpress SARS-CoV-2 could affect primer and/or probe binding resulting in failure to detect the presence of virus. This test cannot rule out diseases caused by other bacterial or viral pathogens. DISCLAIMER: Testing was performed using the [employer] SARS-CoV-2 test. This test was developed and its performance characteristics determined by [employer]. This test has not been FDA cleared or approved. This test has been authorized by FDA under an Emergency Use Authorization (EUA). This test is only authorized for the duration of time the declaration that circumstances exist justifying the authorization of the emergency use of in vitro diagnostic tests for detection of SARS-CoV-2 virus and/or diagnosis of COVID-19 infection under section 564(b)(1) of the Act, 21 U.S.C. 360bbb-3(b)(1), unless the authorization is terminated or revoked sooner. 16 THERAPUTIC HUMAN INR VALUES INDICATIONS NORMAL RANGES PROPHYLAXIS/TREATMENT OF: VENOUS THROMBOSIS 2.0-3.0 PULMONARY EMBOLISM 2.0-3.0 PREVENTION OF SYSTEMIC EMBOLISM FROM: TISSUE HEART VALVES 2.0-3.0 ACUTE MYOCARDIAL INFARCTION 2.0-3.0 VALVULAR HEART DISEASE 2.0-3.0 ATRIAL FIBRILLATION 2.0-3.0 MECHANICAL VALVES(HIGH RISK) 2.5-3.5 RECURRENT MYOCARDIAL INFARCTION 2.5-3.5 17 Units are mL/min/1.73 m2 Chronic Kidney Disease Staging per NKF: Stage I & II GFR >=60 Normal to Mildly Decreased Stage III GFR 30-59 Moderately Decreased Stage IV GFR 15-29 Severely Decreased Stage V GFR <15 Very Little GFR Left ESRD GFR <15 on GROCERY CARRIER 18 DIAGNOSIS CRITERIA MMB ng/ml Relative Index (RI) NON-AMI < or = 5 N/A GOYAL ZONE > 5 < or = 4 AMI > 5 > 4 19 Troponin I Reference Interva l for [employer]id[employer] LOCI: 99th Percentile= 0.00-0.045 ng/ml Risk Stratification: <= 0.10 ng/ml Decreased Risk for Adverse Clinical Events. 0.10-1.50 ng/ml Increased Risk for Adv erse Clinical Events. Evaluation of additional criterion and/or repeat testing in 2-6 hours is suggested to rule out myocardial damage. >= 1.50 ng/ml Indicative of Myocardial Injury. 20 Y/N query for Sepsis Lactate Rule: Y 21 DIAGNOSIS CRITERIA MMB ng/ml Relative Index (RI) NON-AMI < or = 5 N/A GOYAL ZONE > 5 < or = 4 AMI > 5 > 4 22 Troponin I Reference Interva l for [employer] LOCI: 99th Percentile= 0.00-0.045 ng/ml Risk Stratification: <= 0.10 ng/ml Decreased Risk for Adverse Clinical Events. 0.10-1.50 ng/ml Increased Risk for Adv erse Clinical Events. Evaluation of additional criterion and/or repeat testing in 2-6 hours is suggested to rule out myocardial damage. >= 1.50 ng/ml Indicative of Myocardial Injury. 23 Units are mL/min/1.73 m2 Chronic Kidney Disease Staging per NKF: Stage I & II GFR >=60 Normal to Mildly Decreased Stage III GFR 30-59 Moderately Decreased Stage IV GFR 15-29 Severely Decreased Stage V GFR <15 Very Little GFR Left ESRD GFR <15 on GROCERY CARRIER 24 Units are mL/min/1.73 m2 Chronic Kidney Disease Staging per NKF: Stage I & II GFR >=60 Normal to Mildly Decreased Stage III GFR 30-59 Moderately Decreased Stage IV GFR 15-29 Severely Decreased Stage V GFR <15 Very Little GFR Left ESRD GFR <15 on GROCERY CARRIER 25 REFERENCE RANGES: 4.5-5.6% NORMAL 5.7-6.4% SUGGESTS IMPAIRED GLUCOSE META BOLISM >= 6.5% ABNORMAL 26 Units are mL/min/1.73 m2 Chronic Kidney Disease Staging per NKF: Stage I & II GFR >=60 Normal to Mildly Decreased Stage III GFR 30-59 Moderately Decreased Stage IV GFR 15-29 Severely Decreased Stage V GFR <15 Very Little GFR Left ESRD GFR <15 on GROCERY CARRIER Procedures Date Code Description Status 01/26/2020 [id number] Mammogram Completed 03/25/2018 [id number] Diabetic Foot Exam Completed 05/09/2014 [id number] Mammogram Completed 04/27/2014 [id number] Mammogram Completed 12/10/2010 [id number] Mammogram Completed Medical Devices Description No Information Available Encounters Type Date Location Provider Dx Diagnosis Office Visit 01/31/2020 11:45a Main Office 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 FNP 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 I48.91 Unspecified atrial fibrillat ion I70.212 [place] [facility] [place] trm w intrmt damaris, left leg N18.9 Chronic kidney disease, unsp ecified K12.0 Recurrent oral aphthae Office Visit 01/19/2020 2:00p Main Office 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 FNP Z00.0 0 Encntr for general adult medical exam w/o abnormal findings 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 I48.91 Unspecified atrial fibrillat ion I70.212 [place] trm w intrmt damaris, left leg E11.69 Type 2 diabetes mellitus wit h other specified complication J44.9 Chronic obstructive pulmonar y disease, unspecified Office Visit 01/11/2020 3:45p Main Office Pleskach, Criselda, HAT CON[employer] INSPECTOR 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 I48.91 Unspecified atrial fibrillat ion I70.212 [place] ex trm w intrmt damaris, left leg E11.69 Type 2 diabetes mellitus wit h other specified complication J44.1 Chronic obstructive pulmonar y disease w (acute) exacerbation Office Visit 12/16/2019 1:15p Main Office Pleskach, Criselda, HAT CONE INSPECTOR 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 I48.91 Unspecified atrial fibrillat ion I70.212 [place] trm w intrmt damaris, left leg E11.69 Type 2 diabetes mellitus wit h other specified complication J44.1 Chronic obstructive pulmonar y disease w (acute) exacerbation Office Visit 12/02/2019 4:00p Main Office PleskachMoey, HAT CONE INSPECTOR I50.2 3 Acute on chronic systolic (congestive) heart failure Office Visit 11/24/2019 10:00a Main Office Pleskach, Criselda, [employer] INSPECTOR L03.1 16 Cellulitis of left lower limb R06.00 Dyspnea, unspecified Office Visit 10/20/2019 1:45p Main Office Pleskach, Criselda, [employer] INSPECTOR 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 E11.69 Type 2 diabetes mellitus wit h other specified complication I48.91 Unspecified atrial fibrillat ion E87.6 Hypokalemia E83.42 Hypomagnesemia R60.0 Localized edema I70.212 [place] of ex trm w intrmt damaris, left leg J44.9 Chronic obstructive pulmonar y disease, unspecified Office Visit 09/20/2019 1:00p Main Office Pleskach, Criselda, H[employer] CONE INSPECTOR 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 E11.69 Type 2 diabetes mellitus wit h other specified complication E87.6 Hypokalemia E83.42 Hypomagnesemia J44.1 Chronic obstructive pulmonar y disease w (acute) exacerbation E66.01 Morbid (severe) obesity due to excess calories I48.91 Unspecified atrial fibrillat ion Office Visit 09/06/2019 11:30a Main Office 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, [employer]E INSPECTOR E11.6 9 Type 2 diabetes mellitus with other specified complication 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 E87.6 Hypokalemia E83.42 Hypomagnesemia J44.1 Chronic obstructive pulmonar y disease w (acute) exacerbation E66.01 Morbid (severe) obesity due to excess calories I48.91 Unspecified atrial fibrillat ion Assessments Date Code Description Provider 01/31/2020 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, H[employer] INSPECTOR 01/31/2020 I48.91 Unspecified atrial fibrillation 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, H[employer]E INSPECTOR 01/31/2020 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, left leg 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, H[employer]E INSPECTOR 01/31/2020 N18.9 Chronic kidney disease, unspecif ied 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, H[employer]E INSPECTOR 01/31/2020 K12.0 Recurrent oral aphthae 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, H[employer] CONE INSPECTOR 01/19/2020 Z00.00 Encounter for genera l adult medical examination without abnormal findings Nuzhat Langley M.D. 01/19/2020 Z00.00 Encounter for genera l adult medical examination without abnormal findings 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, H[employer]E INSPECTOR 01/19/2020 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 01/19/2020 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, H[employer]E INSPECTOR 01/19/2020 I48.91 Unspecified atrial fibrillation Nuzhat Langley M.D. 01/19/2020 I48.91 Unspecified atrial fibrillation 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, H[employer]E INSPECTOR 01/19/2020 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, left leg Nuzhat Langley M.D. 01/19/2020 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, left leg 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, [employer] INSPECTOR 01/19/2020 E11.69 Type 2 diabetes mellitus with ot her specified complication Nuzhat Langley M.D. 01/19/2020 E11.69 Type 2 diabetes mellitus with ot her specified complication Pleskach, Criselda, H[employer]E INSPECTOR 01/19/2020 J44.9 Chronic obstructive pulmonary di sease, unspecified Nuzhat Langley M.D. 01/19/2020 J44.9 Chronic obstructive pulmonary di sease, unspecified Pleskach, Criselda, H[employer]E INSPECTOR 01/11/2020 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 Pleskach, Criselda, H[employer]E INSPECTOR 01/11/2020 I48.91 Unspecified atrial fibrillation Pleskach, Criselda, H[employer]E INSPECTOR 01/11/2020 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, left leg Pleskach, Criselda, H[employer] CONE INSPECTOR 01/11/2020 E11.69 Type 2 diabetes mellitus with ot her specified complication Pleskach, Criselda, H[employer] CONE INSPECTOR 01/11/2020 J44.1 Chronic obstructive pulmonary disease with (acute) exacerbation Pleskach, Criselda, H[employer]E INSPECTOR 01/10/2020 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 Pleskach, Criselda, H[employer]E INSPECTOR 01/10/2020 I48.91 Unspecified atrial fibrillation Pleskach, Criselda, H[employer]E INSPECTOR 01/10/2020 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, left leg Pleskach, Criselda, H[employer]E INSPECTOR 01/10/2020 E11.69 Type 2 diabetes mellitus with ot her specified complication Pleskach, Criselda, H[employer]E INSPECTOR 01/10/2020 J44.9 Chronic obstructive pulmonary di sease, unspecified Pleskach, Criselda, H[employer] CONE INSPECTOR 12/16/2019 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 Pleskach, Criselda, H[employer]E INSPECTOR 12/16/2019 I48.91 Unspecified atrial fibrillation Pleskach, Criselda, H[employer]E INSPECTOR 12/16/2019 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, left leg Pleskach, Criselda, H[employer] CONE INSPECTOR 12/16/2019 E11.69 Type 2 diabetes mellitus with ot her specified complication Pleskach, Criselda, H[employer]E INSPECTOR 12/16/2019 J44.1 Chronic obstructive pulmonary disease with (acute) exacerbation Pleskach, Criselda, H[employer]E INSPECTOR 12/03/2019 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 Pleskach, Criselda, H[employer] CONE INSPECTOR 12/03/2019 I48.91 Unspecified atrial fibrillation Pleskach, Criselda, H[employer] CONE INSPECTOR 12/03/2019 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, left leg Pleskach, Criselda, H[employer] CONE INSPECTOR 12/03/2019 E11.69 Type 2 diabetes mellitus with ot her specified complication Pleskach, Criselda, H[employer] CONE INSPECTOR 12/03/2019 J44.1 Chronic obstructive pulmonary disease with (acute) exacerbation Pleskach, Criselda, H[employer] CONE INSPECTOR 12/02/2019 I50.23 Acute on chronic systolic (conge stive) heart failure Pleskach, Criselda, H[employer] CONE INSPECTOR 11/26/2019 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 Pleskach, Criselda, H[employer] CONE INSPECTOR 11/26/2019 I48.91 Unspecified atrial fibrillation Pleskach, Criselda, H[employer] CONE INSPECTOR 11/26/2019 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, left leg Pleskach, Criselda, H[employer] CONE INSPECTOR 11/26/2019 E11.69 Type 2 diabetes mellitus with ot her specified complication Pleskach, Criselda, HAT CONE INSPECTOR 11/24/2019 L03.116 Cellulitis of left lower limb Pl Criselda connor, H[employer] CONE INSPECTOR 11/24/2019 R06.00 Dyspnea, unspecified Pleskach, M svitlana, HAT CONE INSPECTOR 11/09/2019 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 Pleskach, Criselda, HAT CONE INSPECTOR 11/09/2019 E11.69 Type 2 diabetes mellitus with ot her specified complication Pleskach, Criselda, H[employer] CONE INSPECTOR 11/09/2019 I48.91 Unspecified atrial fibrillation Pleskach, Criselda, HAT CONE INSPECTOR 11/09/2019 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, left leg Pleskach, Criselda, HAT CONE INSPECTOR 11/09/2019 J44.1 Chronic obstructive pulmonary disease with (acute) exacerbation Pleskach, Criselda, H[employer] CONE INSPECTOR 10/20/2019 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 Pleskach, Criselda, H[employer] CONE INSPECTOR 10/20/2019 E11.69 Type 2 diabetes mellitus with ot her specified complication Pleskach, Criselda, H[employer] CONE INSPECTOR 10/20/2019 I48.91 Unspecified atrial fibrillation Pleskach, Criselda, H[employer] CONE INSPECTOR 10/20/2019 E87.6 Hypokalemia Pleskach, Criselda, H[employer] CONE INSPECTOR 10/20/2019 E83.42 Hypomagnesemia Pleskach, Criselda, H[employer] CONE INSPECTOR 10/20/2019 R60.0 Localized edema Pleskach, Criselda, H[employer] CONE INSPECTOR 10/20/2019 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, left leg PleskachMoey, HAT CONE INSPECTOR 10/20/2019 J44.9 Chronic obstructive pulmonary di sease, unspecified Pleskach, Criselda, HAT CONE INSPECTOR 10/18/2019 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 10/18/2019 E11.69 Type 2 diabetes mellitus with ot her specified complication Nuzhat Langley M.D. 10/18/2019 I48.91 Unspecified atrial fibrillation Nuzhat Langley M.D. 10/18/2019 E87.6 Hypokalemia Nuzhat Langley M.D. 10/18/2019 E83.42 Hypomagnesemia Nuzhat Langley M.D. 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 Pleskach Criselda, H[employer] CONE INSPECTOR 09/20/2019 E11.69 Type 2 diabetes mellitus with ot her specified complication Pleskach, Criselda, H[employer] CONE INSPECTOR 09/20/2019 E87.6 Hypokalemia Pleskach, Criselda, HAT CONE INSPECTOR 09/20/2019 E83.42 Hypomagnesemia Pleskach, Criselda, H[employer] CONE INSPECTOR 09/20/2019 J44.1 Chronic obstructive pulmonary disease with (acute) exacerbation 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, HAT CONE INSPECTOR 09/20/2019 E66.01 Morbid (severe) obesity due to e xcess calories Moe Herreray, H[employer]E INSPECTOR 09/20/2019 I48.91 Unspecified atrial fibrillation Pleskach Criselda, HAT CONE INSPECTOR 09/08/2019 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 09/08/2019 E83.42 Hypomagnesemia Nuzhat Langley M.D. 09/08/2019 E87.6 Hypokalemia Nuzhat Langley M.D. 09/08/2019 J44.1 Chronic obstructive pulmonary disease with (acute) exacerbation Nuzhat Langley M.D. 09/06/2019 E11.69 Type 2 diabetes mellitus with ot her specified complication PleskCriselda springer, H[employer] CONE INSPECTOR 09/06/2019 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, H[employer] CONE INSPECTOR 09/06/2019 E87.6 Hypokalemia 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, H[employer] CONE INSPECTOR 09/06/2019 E83.42 Hypomagnesemia Sharon Criselda, H[employer]E INSPECTOR 09/06/2019 J44.1 Chronic obstructive pulmonary disease with (acute) exacerbation PleCriselda gomez, H[employer] CONE INSPECTOR 09/06/2019 E66.01 Morbid (severe) obesity due to e xcess calories 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, H[employer] CONE INSPECTOR 09/06/2019 I48.91 Unspecified atrial fibrillation 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, HAT CONE INSPECTOR Plan of Treatment Future Appointment(s):* 02/15/2020 1:30 pm - 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 HAT CONE INSPECTOR at Main Office * 04/18/2020 1:00 pm - 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 HAT CONE INSPECTOR at Main Office Functional Status Functional Condition Comment Date Status Bifocal glasses Active Independent with all ADL's Activ e Complete lower and upper and lower dentures Active Independent with all IADL's Acti ve Mental Status Mental Condition Comment Date Status None Active Referrals Refer to Reason for Referral Status Appt Date Freddy Gallegos MD CKD in the presence of [place] [id number] [place] [id number] [phone] [facility] referring for PAD, LLE redness and swelling and pain Closed 12/07/[address] [facility], [address] [place] [address] [phone] [facility] referring for PAD, LLE redness and swelling and pain Patient Declined 12/21/2019 [address] , [address] [place] [address] [phone]
--- OUTSIDE RECORDS SUMMARY | 2020-03-07 19:46 | CCD | Continuity of Care Document ---
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 Carmelagian DEMETRIA Aburto Onset: 10/20/2019 Type 2 diabetes mellitus in obese Merlinmariogian DEMETRIA Aburto Onset : 10/20/2019 Chronic obstructive pulmonary disease with (acute) exa cerbation Merlinpatricia DEMETRIA Aburto Onset: 10/20/2019 Social History Type Date Description [...] SIG Qnty Indications Ordering Provide r Date Oxycodone-Acetaminophen 5-325mg Ta blets 1 tab by [...] 32gm J30.9 Criselda Cabrera FNP 10/14/2018 Ipratropium Dorothy/Albuterol Sulfate 0.5-2.5(3)mg/3ML Solution use 1 vial via nebulizer 4 times daily a s needed for coughing and wheezing 90ml 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 FNP 10/14 Neosporin Original 3.5-400-5000 Oi ntment apply to rash twice a day as needed 28.300gm R21 Emerson Herrera ROVING CHANGER 12/09/2017 Freestyle Lite Lancets Misc use to check fasting blood glusose twice daily, dx: e11.9 200units Criselda Ruelas FNP 04/07/2017 Freestyle Lite Test Strips use to check blood glucose 2 times a day, e11.9 200units Vivian Herrera ROVING CHANGER 04/07/2017 Freestyle Lite Blood Glucose Monitoring System Device use for monitoring blood glucose twice a day, dx e11.9, prognosis good, duration 99 months 1units 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 FNP Citalopram Hydrobromide 40mg Table ts 1 tab by mouth every day 90tabs F32.9 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, [facility] 03/13/19 18 Proair HFA 108(90Base) mcg/Act Aer osol 2 puffs every 4 hours as needed for wheezing and coughing 3units 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 [facility] 04/12/2014 Lumigan 0.01% Solution one gtt. each eye at at bedtime Unknown Diltiazem HCL 60mg Tablets 1 tab by mouth once a at bedtime 90tabs 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 [facility] 0 Advair Diskus 500-50mcg/Dose Aeros ol inhale one puff by mouth every day 60units Vivian Herrera, [facility] Xarelto 20mg Tablets 1 by mouth every day Jason Cosby [facility] History Medications Levofloxacin 750mg Tablets daily by mouth daily for 10 days 10tabs J44.9 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 [facility] 0 - 01/31/2020 Torsemide 10mg Tablets take 1 tablet every morning Unknown 11/27/2019 - Levofloxacin 750mg Tablets daily by mouth daily for 10 days 10tabs 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 FNP 0 - 10/20/2019 Lasix 40mg Tablets take one tablet by mouth every morning and as needed in the afternoon 180tabs 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 FNP 08/20/2019 - 11/30/2019 Oxycodone-Acetaminophen 5-325mg Ta blets 1 tab by mouth every 6 hours as needed for leg pain 60tabs 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 FNP 08/12/2019 - 01/12/2020 Levaquin 750 mg tab [...] CPT Code Status Date Vaccine Lot # 26059 Given 03/25/2018 Pneumococcal Vaccine [id number] 34058 Given 12/09/2017 Influenza Virus Vaccine, Quadrivalent,age 3 and up,multidose vial [id number] Q2038 Given 12/04/2016 Influenza Vaccine (Fluzone)( medicare) [id number] Q2038 Given 11/14/2015 Influenza Vaccine (Fluzone)( medicare) [id number] 56541 Given 10/12/2015 Prevnar 13 For Adults 78644 Given 11/17/2013 Influenza Vaccination 69585 Given 11/18/2007 Influenza Vaccination [id number] 96769 Given 12/12/2006 Influenza Vaccination [id number] Vital Signs Date Vital Result Comment 01/31/2020 12:04pm BP Systolic 70 mmHg BP Diastolic 37 mmHg Heart Rate 76 /min Body Temperature 97.1 F Respiratory Rate 20 /min Height 61.5 inches 5'1.50" Weight 208.25 lb O2 % BldC Oximetry 96 % Peak Expiratory Flow Rate 292 Estimated Peak Flow Rate [place] Body Weight 105 lb BMI (Body Mass Index) 38.7 kg/m2 01/19/2020 2:18pm BP Systolic 108 mmHg BP Diastolic 77 mmHg Heart Rate 93 /min Body Temperature 97.3 F Respiratory Rate 22 /min Height 61.5 inches 5'1.50" Weight 252.50 lb O2 % BldC Oximetry 94 % Peak Expiratory Flow Rate 292 Estimated Peak Flow Rate Val[place] Body Weight 105 lb BMI (Body Mass Index) 46.9 kg/m2 Results Test Acquired Date Facility Test Result H/L Range Note Cardiac Marker Panel 01/24/2020 Patient Service [facility] [place] [address] [phone] CPK Creatine Phosphokinase 27 U/L Normal 26-19 2 CK-MB Value Mass 1.2 NG/ML Normal <3.6 MB/CK Relative Index 4.44 High < Or =4 1 Troponin I < 0.02 NG/ML Normal < 0.10 2 Laboratory test finding 01/23/2020 [place] [address] [phone] NT-Pro BNP 519 pg/mL High <450 Basic Metabolic Profile 01/23/2020 [place] [address] [phone] Glucose, Fasting 149 mg/dL High 70-100 Blood Urea Nitrogen 24 mg/dL High 7-18 Creatinine For GFR 1.61 mg/dL High 0.55-1.30 Glomerular Filtration Rate 32.9 Low >39 3 Sodium Level 139 mEq/L Normal 136-145 Potassium Serum 3.5 mEq/L Normal 3.5-5.1 4 Chloride Level 97 mEq/L Low 98-107 Carbon Dioxide Level 35 mEq/L High 21-32 Anion Gap 7 mEq/L Low 8-16 Calcium Level 9.2 mg/dL Normal 8.8-10.2 CBC With Differential 01/23/2020 [place] [address] [phone] White Blood Count 10.4 10 High 4.0-10.0 [...] 36.0-66.0 Lymph % 8.0 % Low 24.0-44.0 [place] % 5.0 % Normal 0.0-5.0 Eos % 0.4 % Normal 0.0-3.0 Baso % 0.2 % Normal 0.0-1.0 Immature Granulocyte % 0.8 % Normal 0-3.0 Nucleated Red Blood Cell % 0.0 % Normal 0-0 Neutrophils # 8.9 10 High 1.5-8.5 Lymph # 0.8 10 Low 1.5-5.0 [place] # 0.5 10 Normal 0.0-0.8 Eos # 0.0 10 Normal 0.0-0.5 Baso # 0.0 10 Normal 0.0-0.2 Prothrombin Time/Inr 01/23/2020 Patient [place] [address] [phone] Prothrombin Time 26.3 seconds High 12.5-14.3 Inr 2.35 Normal 5 Liver Profile 01/23/2020 [place] [address] [phone] Ast/Sgot 7 U/L Normal 7-37 Alt/SGPT 9 U/L Low 12-78 Alkaline Phosphatase 54 U/L Normal 45-117 Bilirubin,Total 0.6 mg/dL Normal 0.2-1.0 Bilirubin,Direct 0.3 mg/dL High 0.0-0.2 Total Protein 5.6 GM/DL Low 6.4-8.2 Albumin 3.1 GM/DL Low 3.2-5.2 Albumin/Globulin Ratio 1.2 Normal 1.2-2.2 Cardiac Marker Panel 01/23/2020 [place] [address] [phone] CPK Creatine Phosphokinase 43 U/L Normal 26-19 2 CK-MB Value Mass < 1.0 NG/ML Normal <3.6 MB/CK Relative Index 2.33 Normal < Or =4 6 Troponin I < 0.02 NG/ML Normal < 0.10 7 Comprehensive Metabolic Profil 01/19/2020 [facility] [phone] Glucose, Fasting 139 mg/dL High 70-100 Blood Urea Nitrogen 21 mg/dL High 7-18 Creatinine For GFR 1.54 mg/dL High 0.55-1.30 Glomerular Filtration Rate 34.7 Low >39 8 Sodium Level 138 mEq/L Normal 136-145 Potassium [...] Ratio 1.4 Normal 1.2-2.2 Hemoglobin A1c 01/19/2020 [facility] nter [phone] Hemoglobin A1c 6.5 % Normal 9 Estimated Average Glucose 140 mg/dL High 60-110 Istat Chem8+ Panel 12/02/2019 [place] [address] [phone] iSTAT HCT 31.0 % Low 38.0-51.0 iSTAT Glucose 116 mg/dL High 70-105 iSTAT Sodium 140 mEq/L Normal 136-145 iSTAT Potassium 3.8 mEq/L Normal 3.5-5.1 iSTAT CA++ 4.8 mg/dL Normal 4.5-5.3 iSTAT Chloride 99 mEq/L Normal 98-109 iSTAT Co2 28.0 MM/L High 23.0-27.0 iSTAT BUN 17 mg/dL Normal 8-26 iSTAT Creatinine 1.1 mg/dL Normal 0.6-1.3 Laboratory test finding 12/02/2019 Patient Service [place] [id number] [phone] iSTAT Troponin 0.00 NG/ML Normal 0.00-0.08 Laboratory test finding 12/02/2019 [place] [address] [phone] NT-Pro BNP 377 pg/mL Normal <450 Phenobarbital Level 2.1 UG/ML Low 15.0-40.0 Thyroid Stimulating Hormone 1.970 uIU/ML Normal 0.358-3.740 Lactic Acid Sepsis Protocol 1.4 mmol/L Normal 0.4-2.0 10 Laboratory test finding 12/02/2019 Patient Service [place] [id number] [phone] Sars Covid-19 Amplification NEGATIVE Normal Nega tive 11 Venous Blood Gas 12/02/2019 [place] [address] [phone] Venous PH 7.482 units High 7.330-7.430 Venous [...] [facility] [place] [address] [phone] Ast/Sgot 7 U/L Normal 7-37 Alt/SGPT 11 U/L Low 12-78 Alkaline Phosphatase 59 U/L Normal 45-117 Bilirubin,Total 0.7 mg/dL Normal 0.2-1.0 Bilirubin,Direct 0.3 mg/dL High 0.0-0.2 Total Protein 5.6 GM/DL Low 6.4-8.2 Albumin 3.2 GM/DL Normal 3.2-5.2 Albumin/Globulin Ratio 1.3 Normal 1.2-2.2 CBC With Differential 12/02/[address] [facility] [place] [address] [phone] White Blood Count 8.8 10 Normal 4.0-10.0 [...] 36.0-66.0 Lymph % 10.9 % Low 24.0-44.0 [place] % 7.1 % High 0.0-5.0 Eos % 1.9 % Normal 0.0-3.0 Baso % 0.5 % Normal 0.0-1.0 Immature Granulocyte % 0.6 % Normal 0-3.0 Nucleated Red Blood Cell % 0.0 % Normal 0-0 Neutrophils # 6.9 10 Normal 1.5-8.5 Lymph # 1.0 10 Low 1.5-5.0 [place] # 0.6 10 Normal 0.0-0.8 Eos # 0.2 10 Normal 0.0-0.5 Baso # 0.0 10 Normal 0.0-0.2 Prothrombin Time/Inr 12/02/[address] [place] [address] [phone] Prothrombin Time 19.4 seconds High 12.5-14.3 Inr 1.60 Normal 12 Laboratory test finding 11/24/2019 [place] [address] [phone] Erythrocyte Sedimentation Rate 11 mm/hr Normal 0 -30 CBC With Differential 11/24/2019 [place] [address] [phone] White Blood Count 8.2 10 Normal 4.0-10.0 [...] 36.0-66.0 Lymph % 10.7 % Low 24.0-44.0 [place] % 5.6 % High 0.0-5.0 Eos % 2.1 % Normal 0.0-3.0 Baso % 0.5 % Normal 0.0-1.0 Immature Granulocyte % 0.6 % Normal 0-3.0 Nucleated Red Blood Cell % 0.0 % Normal 0-0 Neutrophils # 6.6 10 Normal 1.5-8.5 Lymph # 0.9 10 Low 1.5-5.0 [place] # 0.5 10 Normal 0.0-0.8 Eos # 0.2 10 Normal 0.0-0.5 Baso # 0.0 10 Normal 0.0-0.2 Basic Metabolic Profile 11/24/2019 [place] [address] [phone] Glucose, Fasting 139 mg/dL High 70-100 Blood Urea Nitrogen 17 mg/dL Normal 7-18 Creatinine For GFR 1.27 mg/dL Normal 0.55-1.30 Glomerular Filtration Rate 43.4 Normal >39 1 3 Sodium Level 140 mEq/L Normal 136-145 Potassium Serum 4.0 mEq/L Normal 3.5-5.1 Chloride Level 105 mEq/L Normal 98-107 Carbon Dioxide Level 30 mEq/L Normal 21-32 Anion Gap 5 mEq/L Low 8-16 Calcium Level 9.2 mg/dL Normal 8.8-10.2 Laboratory test finding 11/24/2019 [place] [address] [phone] NT-Pro BNP 244 pg/mL Normal <450 Thyroid Stimulating Hormone 2.460 uIU/ML Normal 0.358-3.740 C Reactive Protein Quantitativ 0.77 mg/dL High 0.00-0.30 Liver Profile 11/24/2019 [place] [address] [phone] Ast/Sgot 7 U/L Normal 7-37 Alt/SGPT 12 U/L Normal 12-78 Alkaline Phosphatase 56 U/L Normal 45-117 Bilirubin,Total 0.9 mg/dL Normal 0.2-1.0 Bilirubin,Direct 0.3 mg/dL High 0.0-0.2 Total Protein 5.5 GM/DL Low 6.4-8.2 Albumin 3.2 GM/DL Normal 3.2-5.2 Albumin/Globulin Ratio 1.4 Normal 1.2-2.2 Cardiac Marker Panel 11/24/2019 Patient Service [facility] [place] [address] [phone] CPK Creatine Phosphokinase 26 U/L Normal 26-19 2 CK-MB Value Mass 1.2 NG/ML Normal <3.6 MB/CK Relative Index 4.62 High < Or =4 14 Troponin I < 0.02 NG/ML Normal < 0.10 15 CBC With Differential 10/10/2019 [place] [address] [phone] White Blood Count 9.0 10 Normal 4.0-10.0 [...] 36.0-66.0 Lymph % 13.0 % Low 24.0-44.0 [place] % 5.9 % High 0.0-5.0 Eos % 0.2 % Normal 0.0-3.0 Baso % 0.2 % Normal 0.0-1.0 Immature Granulocyte % 0.7 % Normal 0-3.0 Nucleated Red Blood Cell % 0.0 % Normal 0-0 Neutrophils # 7.2 10 Normal 1.5-8.5 Lymph # 1.2 10 Low 1.5-5.0 [place] # 0.5 10 Normal 0.0-0.8 Eos # 0.0 10 Normal 0.0-0.5 Baso # 0.0 10 Normal 0.0-0.2 Laboratory test finding 10/10/2019 [place] [address] [phone] Lactic Acid Sepsis Protocol 2.0 mmol/L Normal 0.4- 2.0 16 Cardiac Marker Panel 10/10/[address] [place] [address] [phone] CPK Creatine Phosphokinase 25 U/L Low 26-19 2 CK-MB Value Mass 1.0 NG/ML Normal <3.6 MB/CK Relative Index 4.00 Normal < Or =4 17 Troponin I < 0.02 NG/ML Normal < 0.10 18 Liver Profile 10/10/2019 [place] [address] [phone] Ast/Sgot 11 U/L Normal 7-37 Alt/SGPT 10 U/L Low 12-78 Alkaline Phosphatase 56 U/L Normal 45-117 Bilirubin,Total 0.6 mg/dL Normal 0.2-1.0 Bilirubin,Direct 0.2 mg/dL Normal 0.0-0.2 Total Protein 5.7 GM/DL Low 6.4-8.2 Albumin 3.4 GM/DL Normal 3.2-5.2 Albumin/Globulin Ratio 1.5 Normal 1.2-2.2 Basic Metabolic Profile 10/10/2019 [place] [address] [phone] Glucose, Fasting 108 mg/dL High 70-100 Blood Urea Nitrogen 17 mg/dL Normal 7-18 Creatinine For GFR 1.25 mg/dL Normal 0.55-1.30 Glomerular Filtration Rate 44.2 Normal >39 1 9 Sodium Level 141 mEq/L Normal 136-145 Potassium Serum 3.9 mEq/L Normal 3.5-5.1 Chloride Level 106 mEq/L Normal 98-107 Carbon Dioxide Level 29 mEq/L Normal 21-32 Anion Gap 6 mEq/L Low 8-16 Calcium Level 9.6 mg/dL Normal 8.8-10.2 Laboratory test finding 10/10/2019 [place] [address] [phone] NT-Pro BNP 264 pg/mL Normal <450 Thyroxine (T4) 8.4 g/dL Normal 4.5-12.0 Thyroid Stimulating Hormone 1.340 uIU/ML Normal 0.358-3.740 Venous Blood Gas 10/10/2019 [place] [address] [phone] Venous PH 7.380 units Normal 7.330-7.430 Venous Partial Pressure Co2 42.1 mmHg Normal 38.0-50.0 Venous Partial Pressure O2 66.4 mmHg High 30.0-50.0 Venous Total Co2 24.3 mEq/L Normal 24.0-28.0 Venous Hco3 24.3 mEq/L Normal 23.0-27.0 Venous Base Excess -0.8 Normal -2.0-2.0 Venous Standard Hco3 23.7 mEq/L Normal Venous O2 Saturation 91.3 % High 60.0-80.0 Comprehensive Metabolic Profil 08/29/2019 [facility] [phone] Glucose, Fasting 132 mg/dL High 70-100 Blood Urea Nitrogen 12 mg/dL Normal 7-18 Creatinine For GFR 1.14 mg/dL Normal 0.55-1.30 Glomerular Filtration Rate 49.2 Normal >39 2 0 Sodium Level 141 mEq/L Normal 136-145 Potassium [...] 1.4 Normal 1.2-2.2 Laboratory test finding 08/29/2019 [facility] [phone] Magnesium Level 2.0 mg/dL Normal 1.8-2.4 Hemoglobin A1c 08/29/2019 [facility] [phone] Hemoglobin A1c 8.1 % Normal 21 Estimated Average Glucose 186 mg/dL High 60-110 Lipid Panel 08/29/2019 [facility] [phone] Triglycerides Level 75 mg/dL Normal <150 Cholesterol Level 121 mg/dL Normal <200 HDL Cholesterol 50 mg/dL Normal >40 LDL Cholesterol 56 mg/dL Normal <100 Non-HDL-C 71 mg/dL Normal Cholesterol Risk Ratio 2.420 Normal <5 Basic Metabolic Profile 08/23/2019 Patient Service [place], [place] [address] [phone] Glucose, Fasting 163 mg/dL High 70-100 Blood Urea Nitrogen 19 mg/dL High 7-18 Creatinine For GFR 1.14 mg/dL Normal 0.55-1.30 Glomerular Filtration Rate 49.2 Normal >39 2 2 Sodium Level 140 mEq/L Normal 136-145 Potassium [...] 2 Troponin I Reference Interva l for [employer] [place] LOCI: 99th Percentile= 0.00-0.045 ng/ml Risk Stratification: [...] Little GFR Left ESRD GFR <15 on MEASUREMENT DEPARTMENT CHIEF CLERK 4 Testing was performed on an icteric specimen. This specimen has an elevated potassium level but there is NO visible hemolysis noted. 5 THERAPUTIC HUMAN INR VALUES INDICATIONS NORMAL RANGES PROPHYLAXIS/TREATMENT OF: VENOUS THROMBOSIS 2.0-3.0 PULMONARY EMBOLISM 2.0-3.0 PREVENTION OF SYSTEMIC EMBOLISM FROM: TISSUE HEART VALVES 2.0-3.0 ACUTE MYOCARDIAL INFARCTION 2.0-3.0 VALVULAR HEART DISEASE 2.0-3.0 ATRIAL FIBRILLATION 2.0-3.0 MECHANICAL VALVES(HIGH RISK) 2.5-3.5 RECURRENT MYOCARDIAL INFARCTION 2.5-3.5 6 DIAGNOSIS CRITERIA MMB ng/ml Relative Index (RI) NON-AMI < or = 5 N/A GOYAL ZONE > 5 < or = 4 AMI > 5 > 4 7 Troponin I Reference Interva l for [employer] LOCI: 99th Percentile= 0.00-0.045 ng/ml Risk Stratification: <= 0.10 ng/ml Decreased Risk for Adverse Clinical Events. 0.10-1.50 ng/ml Increased Risk for Adv erse Clinical Events. Evaluation of additional criterion and/or repeat testing in 2-6 hours is suggested to rule out myocardial damage. >= 1.50 ng/ml Indicative of Myocardial Injury. 8 Units are mL/min/1.73 m2 Chronic Kidney Disease Staging per NKF: Stage I & II GFR >=60 Normal to Mildly Decreased Stage III GFR 30-59 Moderately Decreased Stage IV GFR 15-29 Severely Decreased Stage V GFR <15 Very Little GFR Left ESRD GFR <15 on MEASUREMENT DEPARTMENT CHIEF CLERK 9 REFERENCE RANGES: <=5.6% NORMAL 5.7-6.4% SUGGESTS IMPAIRED GLUCOSE META BOLISM/PREDIABETIC >= 6.5% ABNORMAL 10 Y/N query for Sepsis Lactate Rule: Y 11 A false negative result may occur if [...] pathogens. DISCLAIMER: Testing was performed using the [employer] SARS-CoV-2 test. This test was developed and its performance characteristics determined by [employer]. This test has not been FDA cleared [...] the authorization is terminated or revoked sooner. 12 THERAPUTIC HUMAN INR VALUES INDICATIONS NORMAL RANGES PROPHYLAXIS/TREATMENT OF: VENOUS THROMBOSIS 2.0-3.0 PULMONARY EMBOLISM 2.0-3.0 PREVENTION OF SYSTEMIC EMBOLISM FROM: TISSUE HEART VALVES 2.0-3.0 ACUTE MYOCARDIAL INFARCTION 2.0-3.0 VALVULAR HEART DISEASE 2.0-3.0 ATRIAL FIBRILLATION 2.0-3.0 MECHANICAL VALVES(HIGH RISK) 2.5-3.5 RECURRENT MYOCARDIAL INFARCTION 2.5-3.5 13 Units are mL/min/1.73 m2 Chronic Kidney Disease Staging per NKF: Stage I & II GFR >=60 Normal to Mildly Decreased Stage III GFR 30-59 Moderately Decreased Stage IV GFR 15-29 Severely Decreased Stage V GFR <15 Very Little GFR Left ESRD GFR <15 on MEASUREMENT DEPARTMENT CHIEF CLERK 14 DIAGNOSIS CRITERIA MMB ng/ml Relative Index (RI) NON-AMI < or = 5 N/A GO[place]AL [place]ONE > 5 < or = 4 AMI > 5 > 4 15 Troponin I Reference Interva l for [employer] [place]: 99th Percentile= 0.00-0.045 ng/ml Risk Stratification: <= 0.10 ng/ml Decreased Risk for Adverse Clinical Events. 0.10-1.50 ng/ml Increased Risk for Adv erse Clinical Events. Evaluation of additional criterion and/or repeat testing in 2-6 hours is suggested to rule out myocardial damage. >= 1.50 ng/ml Indicative of Myocardial Injury. 16 Y/N query for Sepsis Lactate Rule: Y 17 DIAGNOSIS CRITERIA MMB ng/ml Relative Index (RI) NON-AMI < or = 5 N/A GOYAL ZONE > 5 < or = 4 AMI > 5 > 4 18 Troponin I Reference Interva l for [employer] LOCI: 99th Percentile= 0.00-0.045 ng/ml Risk Stratification: <= 0.10 ng/ml Decreased Risk for Adverse Clinical Events. 0.10-1.50 ng/ml Increased Risk for Adv erse Clinical Events. Evaluation of additional criterion and/or repeat testing in 2-6 hours is suggested to rule out myocardial damage. >= 1.50 ng/ml Indicative of Myocardial Injury. 19 Units are mL/min/1.73 m2 Chronic Kidney Disease Staging per NKF: Stage I & II GFR >=60 Normal to Mildly Decreased Stage III GFR 30-59 Moderately Decreased Stage IV GFR 15-29 Severely Decreased Stage V GFR <15 Very Little GFR Left ESRD GFR <15 on MEASUREMENT DEPARTMENT CHIEF CLERK 20 Units are mL/min/1.73 m2 Chronic Kidney Disease Staging per NKF: Stage I & II GFR >=60 Normal to Mildly Decreased Stage III GFR 30-59 Moderately Decreased Stage IV GFR 15-29 Severely Decreased Stage V GFR <15 Very Little GFR Left ESRD GFR <15 on MEASUREMENT DEPARTMENT CHIEF CLERK 21 REFERENCE RANGES: 4.5-5.6% NORMAL 5.7-6.4% SUGGESTS IMPAIRED GLUCOSE META BOLISM >= 6.5% ABNORMAL 22 Units are mL/min/1.73 m2 Chronic Kidney Disease Staging per NKF: Stage I & II GFR >=60 Normal to Mildly Decreased Stage III GFR 30-59 Moderately Decreased Stage IV GFR 15-29 Severely Decreased Stage V GFR <15 Very Little GFR Left ESRD GFR <15 on MEASUREMENT DEPARTMENT CHIEF CLERK Procedures Date Code Description Status 01/26/2020 [id number] Mammogram Completed 03/25/2018 [id number] Diabetic Foot Exam Completed 05/09/2014 [id number] Mammogram Completed 04/27/2014 [id number] Mammogram Completed 12/10/2010 [id number] Mammogram Completed Medical Devices Description No Information Available Encounters Type Date Location Provider Dx Diagnosis Office Visit 01/19/2020 2:00p Main Office 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 FNP Z00.0 0 Encntr for general adult medical exam w/o abnormal findings 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 I48.91 Unspecified atrial fibrillat ion I70.212 [place] of ex trm w intrmt damaris, left leg E11.69 Type 2 diabetes mellitus wit h other specified complication J44.9 Chronic obstructive pulmonar y disease, unspecified Office Visit 01/11/2020 3:45p Main Office 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 ROVING CHANGER 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 I48.91 Unspecified atrial fibrillat ion I70.212 [place] trm w intrmt damaris, left leg E11.69 Type 2 diabetes mellitus wit h other specified complication J44.1 Chronic obstructive pulmonar y disease w (acute) exacerbation Office Visit 12/16/2019 1:15p Main Office 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 FNP 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 I48.91 Unspecified atrial fibrillat ion I70.212 [place] trm w intrmt damaris, left leg E11.69 Type 2 diabetes mellitus wit h other specified complication J44.1 Chronic obstructive pulmonar y disease w (acute) exacerbation Office Visit 12/02/2019 4:00p Main Office 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 ROVING CHANGER I50.2 3 Acute on chronic systolic (congestive) heart failure Office Visit 11/24/2019 10:00a Main Office 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 FNP L03.1 16 Cellulitis of left lower limb R06.00 Dyspnea, unspecified Office Visit 10/20/2019 1:45p Main Office 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, ROVING CHANGER 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 E11.69 Type 2 diabetes mellitus wit h other specified complication I48.91 Unspecified atrial fibrillat ion E87.6 Hypokalemia E83.42 Hypomagnesemia R60.0 Localized edema I70.212 [place] of ex trm w intrmt damaris, left leg J44.9 Chronic obstructive pulmonar y disease, unspecified Office Visit 09/20/2019 1:00p Main Office 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 ROVING CHANGER 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 E11.69 Type 2 diabetes mellitus wit h other specified complication E87.6 Hypokalemia E83.42 Hypomagnesemia J44.1 Chronic obstructive pulmonar y disease w (acute) exacerbation E66.01 Morbid (severe) obesity due to excess calories I48.91 Unspecified atrial fibrillat ion Office Visit 09/06/2019 11:30a Main Office 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 FNP E11.6 9 Type 2 diabetes mellitus with other specified complication 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 E87.6 Hypokalemia E83.42 Hypomagnesemia J44.1 Chronic obstructive pulmonar y disease w (acute) exacerbation E66.01 Morbid (severe) obesity due to excess calories I48.91 Unspecified atrial fibrillat ion Assessments Date Code Description Provider 01/31/2020 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 FNP 01/31/2020 I48.91 Unspecified atrial fibrillation 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 FNP 01/31/2020 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, left leg 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 FNP 01/19/2020 Z00.00 Encounter for genera l adult medical examination without abnormal findings Nuzhat Langley M.D. 01/19/2020 Z00.00 Encounter for genera l adult medical examination without abnormal findings 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 FNP 01/19/2020 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 01/19/2020 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 Pleskach, Criselda, [employer]OVING CHANGER 01/19/2020 I48.91 Unspecified atrial fibrillation Nuzhat Langley M.D. 01/19/2020 I48.91 Unspecified atrial fibrillation Pleskach, Criselda, [employer]OVING CHANGER 01/19/2020 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, left leg Nuzhat Langley M.D. 01/19/2020 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, left leg Pleskach, Criselda, [employer]OVING CHANGER 01/19/2020 E11.69 Type 2 diabetes mellitus with ot her specified complication Nuzhat Langley M.D. 01/19/2020 E11.69 Type 2 diabetes mellitus with ot her specified complication Pleskach, Criselda, ROVING CHANGER 01/19/2020 J44.9 Chronic obstructive pulmonary di sease, unspecified Nuzhat Langley M.D. 01/19/2020 J44.9 Chronic obstructive pulmonary di sease, unspecified Pleskach, Criselda, ROVING CHANGER 01/11/2020 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 Pleskach, Criselda, ROVING CHANGER 01/11/2020 I48.91 Unspecified atrial fibrillation Pleskach, Criselda, ROVING CHANGER 01/11/2020 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, left leg Pleskach, Criselda, ROVING CHANGER 01/11/2020 E11.69 Type 2 diabetes mellitus with ot her specified complication Pleskach, Criselda, ROVING CHANGER 01/11/2020 J44.1 Chronic obstructive pulmonary disease with (acute) exacerbation Pleskach, Criselda, ROVING CHANGER 01/10/2020 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 Pleskach, Criselda, [employer]OVING CHANGER 01/10/2020 I48.91 Unspecified atrial fibrillation Pleskach, Criselda, ROVING CHANGER 01/10/2020 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, left leg Pleskach, Criselda, [employer]OVING CHANGER 01/10/2020 E11.69 Type 2 diabetes mellitus with ot her specified complication Pleskach, Criselda, ROVING CHANGER 01/10/2020 J44.9 Chronic obstructive pulmonary di sease, unspecified Pleskach, Criselda, ROVING CHANGER 12/16/2019 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 Pleskach, Criselda, ROVING CHANGER 12/16/2019 I48.91 Unspecified atrial fibrillation Pleskach, Criselda, ROVING CHANGER 12/16/2019 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, left leg Pleskach, Criselda, [employer]OVING CHANGER 12/16/2019 E11.69 Type 2 diabetes mellitus with ot her specified complication Pleskach, Criselda, ROVING CHANGER 12/16/2019 J44.1 Chronic obstructive pulmonary disease with (acute) exacerbation Pleskach, Criselda, [employer]OVING CHANGER 12/03/2019 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 Pleskach, Criselda, [employer]OVING CHANGER 12/03/2019 I48.91 Unspecified atrial fibrillation Pleskach, Criselda, ROVING CHANGER 12/03/2019 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, left leg Pleskach, Criselda, [employer]OVING CHANGER 12/03/2019 E11.69 Type 2 diabetes mellitus with ot her specified complication Pleskach, Criselda, ROVING CHANGER 12/03/2019 J44.1 Chronic obstructive pulmonary disease with (acute) exacerbation Pleskach, Criselda, ROVING CHANGER 12/02/2019 I50.23 Acute on chronic systolic (conge stive) heart failure Pleskach, Criselda, ROVING CHANGER 11/26/2019 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 Pleskach, Criselda, ROVING CHANGER 11/26/2019 I48.91 Unspecified atrial fibrillation Pleskach, Criselda, ROVING CHANGER 11/26/2019 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, left leg Pleskach, Criselda, [employer]OVING CHANGER 11/26/2019 E11.69 Type 2 diabetes mellitus with ot her specified complication Pleskach, Criselda, ROVING CHANGER 11/24/2019 L03.116 Cellulitis of left lower limb Pl Criselda connor, [employer]OVING CHANGER 11/24/2019 R06.00 Dyspnea, unspecified PleLesly gomez, [facility] 11/09/2019 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 PleMoe gomezy, [employer]ING CHANGER 11/09/2019 E11.69 Type 2 diabetes mellitus with ot her specified complication PleskachMoey, [employer]OVING CHANGER 11/09/2019 I48.91 Unspecified atrial fibrillation PleskachMoey, [employer]ING CHANGER 11/09/2019 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, left leg PleskCriselda springer, [employer] CHANGER 11/09/2019 J44.1 Chronic obstructive pulmonary disease with (acute) exacerbation MerlinskCriselda springer, [facility] 10/20/2019 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, [employer] CH[employer] 10/20/2019 E11.69 Type 2 diabetes mellitus with ot her specified complication PleMoe gomezy, [employer] CHANGER 10/20/2019 I48.91 Unspecified atrial fibrillation PlemarioachMoey, [employer] CHANGER 10/20/2019 E87.6 Hypokalemia Moe Herreray, [facility] 10/20/2019 E83.42 Hypomagnesemia Moe Herreray, [facility] 10/20/2019 R60.0 Localized edema PleskachMoey, [facility] 10/20/2019 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, left leg PleskachCriselda, [employer]OVING CHANGER 10/20/2019 J44.9 Chronic obstructive pulmonary di sease, unspecified Pleskach Criselda, [employer]OVING CHANGER 10/18/2019 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 10/18/2019 E11.69 Type 2 diabetes mellitus with ot her specified complication Nuzhat Langley M.D. 10/18/2019 I48.91 Unspecified atrial fibrillation Nuzhat Langley M.D. 10/18/2019 E87.6 Hypokalemia Nuzhat Langley M.D. 10/18/2019 E83.42 Hypomagnesemia Nuzhat Langley M.D. 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 Pleskach, Criselda, [employer]OVING CHANGER 09/20/2019 E11.69 Type 2 diabetes mellitus with ot her specified complication Pleskach, Criselda, [employer]OVING CHANGER 09/20/2019 E87.6 Hypokalemia Pleskach, Criselda, [employer]OVING CHANGER 09/20/2019 E83.42 Hypomagnesemia Pleskach, Criselda, [employer]OVING CHANGER 09/20/2019 J44.1 Chronic obstructive pulmonary disease with (acute) exacerbation Pleskach, Criselda, [employer]OVING CHANGER 09/20/2019 E66.01 Morbid (severe) obesity due to e xcess calories Pleskach, Criselda, ROVING CHANGER 09/20/2019 I48.91 Unspecified atrial fibrillation Pleskach, Criselda, ROVING CHANGER 09/08/2019 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 09/08/2019 E83.42 Hypomagnesemia Nuzhat Langley M.D. 09/08/2019 E87.6 Hypokalemia Nuzhat Langley M.D. 09/08/2019 J44.1 Chronic obstructive pulmonary disease with (acute) exacerbation Nuzhat Langley M.D. 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 Pleskach, Criselda, [employer]OVING CHANGER 09/06/2019 E87.6 Hypokalemia Pleskach, Criselda, ROVING CHANGER 09/06/2019 E83.42 Hypomagnesemia Pleskach, Criselda, ROVING CHANGER 09/06/2019 J44.1 Chronic obstructive pulmonary disease with (acute) exacerbation Pleskach, Criselda, ROVING CHANGER 09/06/2019 E66.01 Morbid (severe) obesity due to e xcess calories Pleskach, Criselda, ROVING CHANGER 09/06/2019 I48.91 Unspecified atrial fibrillation Pleskach, Criselda, ROVING CHANGER Plan of Treatment Future Appointment(s):* 04/18/2020 1:00 pm - 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 FNP at Main Office 01/31/2020 - 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 FNP* I50.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 * I48.91 Unspecified atrial fibrillation * I70.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 of [place] arteries of extremities with intermittent claudication, left leg Functional Status Functional Condition Comment Date Status Bifocal glasses Active Independent with all ADL's Activ e Complete lower and upper and lower dentures Active Independent with all IADL's Acti ve Mental Status Mental Condition Comment Date Status None Active Referrals Refer to Dr Reason for Referral Status Appt Date [facility] referring for PAD, LLE redness and swelling and pain Closed 12/07/2019 [address] [facility], [address] [place] [address] [phone] [facility] referring for PAD, LLE redness and swelling and pain Patient Declined 12/21/2019 [address] [facility], [address] [place] [address] [phone]
--- OUTSIDE RECORDS SUMMARY | 2020-03-07 19:46 | CCD | Continuity of Care Document ---
Author Author Sana VEGA M.D. Organization Unknown Address [address] [place] [address] Phone [phone] Care Team Providers Care Photographers' Model Name Role Phone Dhaval Manuel MD AUTM [phone] Nuzhat Vega MD AUTM [phone] Roberto Wallace MD AUTM [phone] [facility] - Surgery AUTM [phone] Freddy Gallegos MD AUTM [phone] Problems Active Problems Provider Date Essential hypertension [...] 32gm J30.9 Criselda Cabrera FNP 10/14/2018 Ipratropium [place]/Albuterol Sulfate 0.5-2.5(3)mg/3ML Solution use 1 vial via nebulizer 4 times daily a s needed for coughing and wheezing 90ml 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 FNP 10/14 Neosporin Original 3.5-400-5000 Oi ntment apply to rash twice a day as needed 28.300gm R21 Emerson Herrera [facility] 12/09/2017 Freestyle Lite Lancets [facility] use to check fasting blood glusose twice daily, dx: e11.9 200units Criselda Ruelas [employer] 04/07/2017 Freestyle Lite Test Strips use to check blood glucose 2 times a day, e11.9 200units Vivian Herrera [employer] 04/07/2017 Freestyle Lite Blood Glucose Monitoring System Device use for monitoring blood glucose twice a day, dx e11.9, prognosis good, duration 99 months 1units 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 [facility] Citalopram Hydrobromide 40mg Table ts 1 tab by mouth every day 90tabs F32.9 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, [facility] 03/13/19 18 Proair HFA 108(90Base) mcg/Act Aer osol 2 puffs every 4 hours as needed for wheezing and coughing 3units 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 [facility] 04/12/2014 Lumigan 0.01% Solution one gtt. each eye at at bedtime Unknown Diltiazem HCL 60mg Tablets 1 tab by mouth once a at bedtime 90tabs 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 [employer] 0 Advair Diskus 500-50mcg/Dose Aeros ol inhale one puff by mouth every day 60units Vivian Herrera [facility] Xarelto 20mg Tablets 1 by mouth every day Jason Cosby [facility] History Medications Levofloxacin 750mg Tablets daily by mouth daily for 10 days 10tabs J44.9 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 [facility] 0 - 01/31/2020 Torsemide 10mg Tablets take 1 tablet every morning Unknown 11/27/2019 - Levofloxacin 750mg Tablets daily by mouth daily for 10 days 10tabs 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 [facility] 0 - 10/20/2019 Lasix 40mg Tablets take one tablet by mouth every morning and as needed in the afternoon 180tabs 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 [facility] 08/20/2019 - 11/30/2019 Oxycodone-Acetaminophen 5-325mg Ta blets 1 tab by mouth every 6 hours as needed for leg pain 60tabs 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 [facility] 08/12/2019 - 01/12/2020 Levaquin 750 mg tab [...] CPT Code Status Date Vaccine Lot # [id number] Given 03/25/2018 Pneumococcal Vaccine [id number] 38430 Given 12/09/2017 Influenza Virus Vaccine, Quadrivalent,age 3 and up,multidose vial [id number] Given 12/04/2016 Influenza Vaccine (Fluzone)( medicare) [id number] Given 11/14/2015 Influenza Vaccine (Fluzone)( medicare) [id number] 23466 Given 10/12/2015 Prevnar 13 For Adults 39404 Given 11/17/2013 Influenza Vaccination 18910 Given 11/18/2007 Influenza Vaccination [id number] 36995 Given 12/12/2006 Influenza Vaccination [id number] Vital Signs Date Vital Result Comment 01/31/2020 12:04pm BP Systolic 70 mmHg BP Diastolic 37 mmHg Heart Rate 76 /min Body Temperature 97.1 F Respiratory Rate 20 /min Height 61.5 inches 5'1.50" Weight 208.25 lb O2 % BldC Oximetry 96 % Peak Expiratory Flow Rate 292 Estimated Peak Flow Rate [place] Body Weight 105 lb BMI (Body Mass Index) 38.7 kg/m2 01/19/2020 2:18pm BP Systolic 108 mmHg BP Diastolic 77 mmHg Heart Rate 93 /min Body Temperature 97.3 F Respiratory Rate 22 /min Height 61.5 inches 5'1.50" Weight 252.50 lb O2 % BldC Oximetry 94 % Peak Expiratory Flow Rate 292 Estimated Peak Flow Rate [place] Body Weight 105 lb BMI (Body Mass Index) 46.9 kg/m2 Results Test Acquired Date Facility Test Result H/L Range Note CBC With Differential [facility] [place] [address] [phone] White Blood Count 9.7 10 Normal 4.0-10.0 [...] 36.0-66.0 Lymph % 11.0 % Low 24.0-44.0 [place] % 6.1 % High 0.0-5.0 Eos % 0.9 % Normal 0.0-3.0 Baso % 0.4 % Normal 0.0-1.0 Immature Granulocyte % 0.9 % Normal 0-3.0 Nucleated Red Blood Cell % 0.0 % Normal 0-0 Neutrophils # 7.8 10 Normal 1.5-8.5 Lymph # 1.1 10 Low 1.5-5.0 [place] # 0.6 10 Normal 0.0-0.8 Eos # 0.1 10 Normal 0.0-0.5 Baso # 0.0 10 Normal 0.0-0.2 Cardiac Marker Panel 01/31/[address] [facility] [place] [address] [phone] CPK Creatine Phosphokinase 25 U/L Low 26-19 2 CK-MB Value Mass 1.1 NG/ML Normal <3.6 MB/CK Relative Index 4.40 High < Or =4 1 Troponin I < 0.02 NG/ML Normal < 0.10 2 Liver Profile 01/31/2020 Patient Service [facility] er [facility] [place] [address] [phone] Ast/Sgot 4 U/L Low 7-37 Alt/SGPT 10 U/L Low 12-78 Alkaline Phosphatase 53 U/L Normal 45-117 Bilirubin,Total 1.1 mg/dL High 0.2-1.0 Bilirubin,Direct 0.4 mg/dL High 0.0-0.2 Total Protein 5.7 GM/DL Low 6.4-8.2 Albumin 3.4 GM/DL Normal 3.2-5.2 Albumin/Globulin Ratio 1.5 Normal 1.2-2.2 Basic Metabolic Profile 01/31/2020 [place] [address] [phone] Glucose, Fasting 125 mg/dL High 70-100 Blood [...] 8.8-10.2 Laboratory test finding 01/31/2020 Patient Service [place] [id number] [phone] NT-Pro BNP 226 pg/mL Normal <450 PT & Aptt 01/31/2020 Patient Service [facility] [place] [address] [phone] Prothrombin Time 23.1 seconds High 12.5-14.3 Inr 2.00 Normal 4 Partial Thromboplastin Time 33.4 seconds Normal 24.2-38.5 Cardiac Marker Panel 01/24/[address] [facility] [place] [address] [phone] CPK Creatine Phosphokinase 27 U/L Normal 26-19 2 CK-MB Value Mass 1.2 NG/ML Normal <3.6 MB/CK Relative Index 4.44 High < Or =4 5 Troponin I < 0.02 NG/ML Normal < 0.10 6 Laboratory test finding 01/23/2020 [place] [address] [phone] NT-Pro BNP 519 pg/mL High <450 Basic Metabolic Profile 01/23/2020 [place] [address] [phone] Glucose, Fasting 149 mg/dL High 70-100 Blood [...] With Differential 01/23/2020 [place] [address] [phone] White Blood Count 10.4 10 High 4.0-10.0 [...] 36.0-66.0 Lymph % 8.0 % Low 24.0-44.0 [place] % 5.0 % Normal 0.0-5.0 Eos % 0.4 % Normal 0.0-3.0 Baso % 0.2 % Normal 0.0-1.0 Immature Granulocyte % 0.8 % Normal 0-3.0 Nucleated Red Blood Cell % 0.0 % Normal 0-0 Neutrophils # 8.9 10 High 1.5-8.5 Lymph # 0.8 10 Low 1.5-5.0 [place] # 0.5 10 Normal 0.0-0.8 Eos # 0.0 10 Normal 0.0-0.5 Baso # 0.0 10 Normal 0.0-0.2 Prothrombin Time/Inr 01/23/2020 [place] [address] [phone] Prothrombin Time 26.3 seconds High 12.5-14.3 Inr 2.35 Normal 9 Liver Profile 01/23/2020 [facility] [place] [address] [phone] Ast/Sgot 7 U/L Normal 7-37 Alt/SGPT 9 U/L Low 12-78 Alkaline Phosphatase 54 U/L Normal 45-117 Bilirubin,Total 0.6 mg/dL Normal 0.2-1.0 Bilirubin,Direct 0.3 mg/dL High 0.0-0.2 Total Protein 5.6 GM/DL Low 6.4-8.2 Albumin 3.1 GM/DL Low 3.2-5.2 Albumin/Globulin Ratio 1.2 Normal 1.2-2.2 Cardiac Marker Panel 01/23/[address] [facility] [place] [address] [phone] CPK Creatine Phosphokinase 43 U/L Normal 26-19 2 CK-MB Value Mass < 1.0 NG/ML Normal <3.6 MB/CK Relative Index 2.33 Normal < Or =4 10 Troponin I < 0.02 NG/ML Normal < 0.10 11 Comprehensive Metabolic Profil 01/19/2020 [facility] [phone] Glucose, Fasting 139 mg/dL High 70-100 Blood [...] Ratio 1.4 Normal 1.2-2.2 Hemoglobin A1c 01/19/2020 [facility] nter [phone] Hemoglobin A1c 6.5 % Normal 13 Estimated Average Glucose 140 mg/dL High 60-110 Istat Chem8+ Panel 12/02/2019 [place] [address] [phone] iSTAT HCT 31.0 % Low 38.0-51.0 iSTAT Glucose 116 mg/dL High 70-105 iSTAT Sodium 140 mEq/L Normal 136-145 iSTAT Potassium 3.8 mEq/L Normal 3.5-5.1 iSTAT CA++ 4.8 mg/dL Normal 4.5-5.3 iSTAT Chloride 99 mEq/L Normal 98-109 iSTAT Co2 28.0 MM/L High 23.0-27.0 iSTAT BUN 17 mg/dL Normal 8-26 iSTAT Creatinine 1.1 mg/dL Normal 0.6-1.3 Laboratory test finding 12/02/2019 [place] [address] [phone] iSTAT Troponin 0.00 NG/ML Normal 0.00-0.08 Laboratory test finding 12/02/2019 [place] [address] [phone] NT-Pro BNP 377 pg/mL Normal <450 Phenobarbital Level 2.1 UG/ML Low 15.0-40.0 Thyroid Stimulating Hormone 1.970 uIU/ML Normal 0.358-3.740 Lactic Acid Sepsis Protocol 1.4 mmol/L Normal 0.4-2.0 14 Laboratory test finding 12/02/2019 [place] [address] [phone] Sars Covid-19 Amplification NEGATIVE Normal Nega tive 15 Venous Blood Gas 12/02/2019 [place] [address] [phone] Venous PH 7.482 units High 7.330-7.430 Venous Partial Pressure Co2 37.5 mmHg Low 38.0-50.0 Venous Partial Pressure O2 135.7 mmHg High 30.0-50.0 Venous Total Co2 28.6 mEq/L High 24.0-28.0 Venous Hco3 27.4 mEq/L High 23.0-27.0 Venous Base Excess 3.9 High -2.0-2.0 Venous Standard Hco3 28.0 mEq/L Normal Venous O2 Saturation 98.9 % High 60.0-80.0 Liver Profile 12/02/2019 [facility] [address] [facility] [place] [address] [phone] Ast/Sgot 7 U/L Normal 7-37 Alt/SGPT 11 U/L Low 12-78 Alkaline Phosphatase 59 U/L Normal 45-117 Bilirubin,Total 0.7 mg/dL Normal 0.2-1.0 Bilirubin,Direct 0.3 mg/dL High 0.0-0.2 Total Protein 5.6 GM/DL Low 6.4-8.2 Albumin 3.2 GM/DL Normal 3.2-5.2 Albumin/Globulin Ratio 1.3 Normal 1.2-2.2 CBC With Differential 12/02/2019 Patient Service Ce nter [facility] [place] [address] [phone] White Blood Count 8.8 10 Normal 4.0-10.0 [...] 36.0-66.0 Lymph % 10.9 % Low 24.0-44.0 [place] % 7.1 % High 0.0-5.0 Eos % 1.9 % Normal 0.0-3.0 Baso % 0.5 % Normal 0.0-1.0 Immature Granulocyte % 0.6 % Normal 0-3.0 Nucleated Red Blood Cell % 0.0 % Normal 0-0 Neutrophils # 6.9 10 Normal 1.5-8.5 Lymph # 1.0 10 Low 1.5-5.0 [place] # 0.6 10 Normal 0.0-0.8 Eos # 0.2 10 Normal 0.0-0.5 Baso # 0.0 10 Normal 0.0-0.2 Prothrombin Time/Inr 12/02/[address] [place] [address] [phone] Prothrombin Time 19.4 seconds High 12.5-14.3 Inr 1.60 Normal 16 Laboratory test finding 11/24/2019 [place] [address] [phone] Erythrocyte Sedimentation Rate 11 mm/hr Normal 0 -30 CBC With Differential 11/24/2019 [place] [address] [phone] White Blood Count 8.2 10 Normal 4.0-10.0 [...] 36.0-66.0 Lymph % 10.7 % Low 24.0-44.0 [place] % 5.6 % High 0.0-5.0 Eos % 2.1 % Normal 0.0-3.0 Baso % 0.5 % Normal 0.0-1.0 Immature Granulocyte % 0.6 % Normal 0-3.0 Nucleated Red Blood Cell % 0.0 % Normal 0-0 Neutrophils # 6.6 10 Normal 1.5-8.5 Lymph # 0.9 10 Low 1.5-5.0 [place] # 0.5 10 Normal 0.0-0.8 Eos # 0.2 10 Normal 0.0-0.5 Baso # 0.0 10 Normal 0.0-0.2 Basic Metabolic Profile 11/24/2019 [place] [address] [phone] Glucose, Fasting 139 mg/dL High 70-100 Blood [...] 8.8-10.2 Laboratory test finding 11/24/2019 [place] [address] [phone] NT-Pro BNP 244 pg/mL Normal <450 Thyroid Stimulating Hormone 2.460 uIU/ML Normal 0.358-3.740 C Reactive Protein Quantitativ 0.77 mg/dL High 0.00-0.30 Liver Profile 11/24/2019 [place] [address] [phone] Ast/Sgot 7 U/L Normal 7-37 Alt/SGPT 12 U/L Normal 12-78 Alkaline Phosphatase 56 U/L Normal 45-117 Bilirubin,Total 0.9 mg/dL Normal 0.2-1.0 Bilirubin,Direct 0.3 mg/dL High 0.0-0.2 Total Protein 5.5 GM/DL Low 6.4-8.2 Albumin 3.2 GM/DL Normal 3.2-5.2 Albumin/Globulin Ratio 1.4 Normal 1.2-2.2 Cardiac Marker Panel 11/24/[address] [place] [address] [phone] CPK Creatine Phosphokinase 26 U/L Normal 26-19 2 CK-MB Value Mass 1.2 NG/ML Normal <3.6 MB/CK Relative Index 4.62 High < Or =4 18 Troponin I < 0.02 NG/ML Normal < 0.10 19 CBC With Differential 10/10/2019 [place] [address] [phone] White Blood Count 9.0 10 Normal 4.0-10.0 [...] 36.0-66.0 Lymph % 13.0 % Low 24.0-44.0 [place] % 5.9 % High 0.0-5.0 Eos % 0.2 % Normal 0.0-3.0 Baso % 0.2 % Normal 0.0-1.0 Immature Granulocyte % 0.7 % Normal 0-3.0 Nucleated Red Blood Cell % 0.0 % Normal 0-0 Neutrophils # 7.2 10 Normal 1.5-8.5 Lymph # 1.2 10 Low 1.5-5.0 [place] # 0.5 10 Normal 0.0-0.8 Eos # 0.0 10 Normal 0.0-0.5 Baso # 0.0 10 Normal 0.0-0.2 Laboratory test finding 10/10/2019 [place] [address] [phone] Lactic Acid Sepsis Protocol 2.0 mmol/L Normal 0.4- 2.0 20 Cardiac Marker Panel 10/10/2019 [place] [address] [phone] CPK Creatine Phosphokinase 25 U/L Low 26-19 2 CK-MB Value Mass 1.0 NG/ML Normal <3.6 MB/CK Relative Index 4.00 Normal < Or =4 21 Troponin I < 0.02 NG/ML Normal < 0.10 22 Liver Profile 10/10/2019 [place] [address] [phone] Ast/Sgot 11 U/L Normal 7-37 Alt/SGPT 10 U/L Low 12-78 Alkaline Phosphatase 56 U/L Normal 45-117 Bilirubin,Total 0.6 mg/dL Normal 0.2-1.0 Bilirubin,Direct 0.2 mg/dL Normal 0.0-0.2 Total Protein 5.7 GM/DL Low 6.4-8.2 Albumin 3.4 GM/DL Normal 3.2-5.2 Albumin/Globulin Ratio 1.5 Normal 1.2-2.2 Basic Metabolic Profile 10/10/2019 Patient Service [place], [place] [address] [phone] Glucose, Fasting 108 mg/dL High 70-100 Blood [...] 8.8-10.2 Laboratory test finding 10/10/2019 [place] [address] [phone] NT-Pro BNP 264 pg/mL Normal <450 Thyroxine (T4) 8.4 g/dL Normal 4.5-12.0 Thyroid Stimulating Hormone 1.340 uIU/ML Normal 0.358-3.740 Venous Blood Gas 10/10/2019 Patient Service [place], [place] [address] [phone] Venous PH 7.380 units Normal 7.330-7.430 Venous Partial Pressure Co2 42.1 mmHg Normal 38.0-50.0 Venous Partial Pressure O2 66.4 mmHg High 30.0-50.0 Venous Total Co2 24.3 mEq/L Normal 24.0-28.0 Venous Hco3 24.3 mEq/L Normal 23.0-27.0 Venous Base Excess -0.8 Normal -2.0-2.0 Venous Standard Hco3 23.7 mEq/L Normal Venous O2 Saturation 91.3 % High 60.0-80.0 Comprehensive Metabolic Profil 08/29/2019 [facility] [phone] Glucose, Fasting 132 mg/dL High 70-100 Blood [...] 1.4 Normal 1.2-2.2 Laboratory test finding 08/29/2019 [facility] [phone] Magnesium Level 2.0 mg/dL Normal 1.8-2.4 Hemoglobin A1c 08/29/2019 [facility] [phone] Hemoglobin A1c 8.1 % Normal 25 Estimated Average Glucose 186 mg/dL High 60-110 Lipid Panel 08/29/2019 [facility] nter [phone] Triglycerides Level 75 mg/dL Normal <150 Cholesterol Level 121 mg/dL Normal <200 HDL Cholesterol 50 mg/dL Normal >40 LDL Cholesterol 56 mg/dL Normal <100 Non-HDL-C 71 mg/dL Normal Cholesterol Risk Ratio 2.420 Normal <5 Basic Metabolic Profile 08/23/2019 Patient Service [place], [place] [address]23 [phone] Glucose, Fasting 163 mg/dL High 70-100 Blood [...] 2 Troponin I Reference Interva l for [employer] 2Win-Solutions: 99th Percentile= 0.00-0.045 ng/ml Risk Stratification: <= [...] Little GFR Left ESRD GFR <15 on BOX FINISHER 4 THERAPUTIC HUMAN INR VALUES INDICATIONS NORMAL [...] 6 Troponin I Reference Interva l for [employer] 2Win-Solutions: 99th Percentile= 0.00-0.045 ng/ml Risk Stratification: <= [...] Little GFR Left ESRD GFR <15 on BOX FINISHER 8 Testing was performed on an icteric [...] Troponin I Reference Interva l for Siemens Nitro LOCI: 99th Percentile= 0.00-0.045 ng/ml Risk Stratification: [...] Little GFR Left ESRD GFR <15 on BOX FINISHER 13 REFERENCE RANGES: <=5.6% NORMAL 5.7-6.4% SUGGESTS [...] pathogens. DISCLAIMER: Testing was performed using the [employer] SARS-CoV-2 test. This test was developed and its performance characteristics determined by [employer]. This test has not been FDA cleared [...] Little GFR Left ESRD GFR <15 on BOX FINISHER 18 DIAGNOSIS CRITERIA MMB ng/ml Relative Index (RI) NON-AMI < or = 5 N/A GOYAL ZONE > 5 < or = 4 AMI > 5 > 4 19 Troponin I Reference Interva l for [employer] LOCI: 99th Percentile= 0.00-0.045 ng/ml Risk Stratification: [...] Troponin I Reference Interva l for Siemens Nitro LOCI: 99th Percentile= 0.00-0.045 ng/ml Risk Stratification: [...] Little GFR Left ESRD GFR <15 on BOX FINISHER 24 Units are mL/min/1.73 m2 Chronic Kidney Disease Staging per NKF: Stage I & II GFR >=60 Normal to Mildly Decreased Stage III GFR 30-59 Moderately Decreased Stage IV GFR 15-29 Severely Decreased Stage V GFR <15 Very Little GFR Left ESRD GFR <15 on BOX FINISHER 25 REFERENCE RANGES: 4.5-5.6% NORMAL 5.7-6.4% SUGGESTS IMPAIRED GLUCOSE META BOLISM >= 6.5% ABNORMAL 26 Units are mL/min/1.73 m2 Chronic Kidney Disease Staging per NKF: Stage I & II GFR >=60 Normal to Mildly Decreased Stage III GFR 30-59 Moderately Decreased Stage IV GFR 15-29 Severely Decreased Stage V GFR <15 Very Little GFR Left ESRD GFR <15 on BOX FINISHER Procedures Date Code Description Status 01/26/2020 [id number] Mammogram Completed 03/25/2018 [id number] Diabetic Foot Exam Completed 05/09/2014 [id number] Mammogram Completed 04/27/2014 [id number] Mammogram Completed 12/10/2010 [id number] Mammogram Completed Medical Devices Description No Information Available Encounters Type Date Location Provider Dx Diagnosis Office Visit 01/31/2020 11:45a Main Office 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 FNP 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 I48.91 Unspecified atrial fibrillat ion I70.212 Athscl [place] arteries of ex trm w intrmt damaris, left leg N18.9 Chronic kidney disease, unsp ecified K12.0 Recurrent oral aphthae Office Visit 01/19/2020 2:00p Main Office 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 FNP Z00.0 0 Encntr for general adult medical exam w/o abnormal findings 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 I48.91 Unspecified atrial fibrillat ion I70.212 Athscl [place] arteries of ex trm w intrmt damaris, left leg E11.69 Type 2 diabetes mellitus wit h other specified complication J44.9 Chronic obstructive pulmonar y disease, unspecified Office Visit 01/11/2020 3:45p Main Office Pleskach, Criselda, [employer] 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 I48.91 Unspecified atrial fibrillat ion I70.212 Athscl [place] arteries of ex trm w intrmt damaris, left leg E11.69 Type 2 diabetes mellitus wit h other specified complication J44.1 Chronic obstructive pulmonar y disease w (acute) exacerbation Office Visit 12/16/2019 1:15p Main Office Pleskach, Criselda, [employer] 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 I48.91 Unspecified atrial fibrillat ion I70.212 Athscl [place] arteries of ex trm w intrmt damaris, left leg E11.69 Type 2 diabetes mellitus wit h other specified complication J44.1 Chronic obstructive pulmonar y disease w (acute) exacerbation Office Visit 12/02/2019 4:00p Main Office PleskachMoey, [employer] I50.2 3 Acute on chronic systolic (congestive) heart failure Office Visit 11/24/2019 10:00a Main Office Pleskach, Criselda, [employer] L03.1 16 Cellulitis of left lower limb R06.00 Dyspnea, unspecified Office Visit 10/20/2019 1:45p Main Office Pleskach, Criselda, [employer] 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 E11.69 Type 2 diabetes mellitus wit h other specified complication I48.91 Unspecified atrial fibrillat ion E87.6 Hypokalemia E83.42 Hypomagnesemia R60.0 Localized edema I70.212 Athscl [place] arteries of ex trm w intrmt damaris, left leg J44.9 Chronic obstructive pulmonar y disease, unspecified Office Visit 09/20/2019 1:00p Main Office Pleskach, Criselda, [employer] 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 E11.69 Type 2 diabetes mellitus wit h other specified complication E87.6 Hypokalemia E83.42 Hypomagnesemia J44.1 Chronic obstructive pulmonar y disease w (acute) exacerbation E66.01 Morbid (severe) obesity due to excess calories I48.91 Unspecified atrial fibrillat ion Office Visit 09/06/2019 11:30a Main Office 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, [employer] E11.6 9 Type 2 diabetes mellitus with [...] and diastolic (congestive) heart failure 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, [employer] 01/31/2020 I48.91 Unspecified atrial fibrillation 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, [employer] 01/31/2020 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, left leg 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, [employer] 01/31/2020 N18.9 Chronic kidney disease, unspecif ied 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, [employer] 01/31/2020 K12.0 Recurrent oral aphthae 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, [employer] 01/19/2020 Z00.00 Encounter for genera l adult medical examination without abnormal findings Nuzhat Vega M.D. 01/19/2020 Z00.00 Encounter for genera l adult medical examination without abnormal findings 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, [employer] 01/19/2020 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 01/19/2020 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, [employer] 01/19/2020 I48.91 Unspecified atrial fibrillation Nuzhat Vega M.D. 01/19/2020 I48.91 Unspecified atrial fibrillation 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, [employer] 01/19/2020 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, left leg Nuzhat Vega M.D. 01/19/2020 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, left leg 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, [employer] 01/19/2020 E11.69 Type 2 diabetes mellitus with ot her specified complication Nuzhat Vega M.D. 01/19/2020 E11.69 Type 2 diabetes mellitus with ot her specified complication Pleskach, Criselda, [employer] 01/19/2020 J44.9 Chronic obstructive pulmonary di sease, unspecified Nuzhat Vega M.D. 01/19/2020 J44.9 Chronic obstructive pulmonary di sease, unspecified Pleskach, Criselda, [employer] 01/11/2020 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 Pleskach, Criselda, [employer] 01/11/2020 I48.91 Unspecified atrial fibrillation Pleskach, Criselda, [employer] 01/11/2020 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, left leg Pleskach, Criselda, [employer] 01/11/2020 E11.69 Type 2 diabetes mellitus with ot her specified complication Pleskach, Criselda, [employer] 01/11/2020 J44.1 Chronic obstructive pulmonary disease with (acute) exacerbation Pleskach, Criselda, [employer] 01/10/2020 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 Pleskach, Criselda, [employer] 01/10/2020 I48.91 Unspecified atrial fibrillation Pleskach, Criselda, [employer] 01/10/2020 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, left leg Pleskach, Criselda, [employer] 01/10/2020 E11.69 Type 2 diabetes mellitus with ot her specified complication Pleskach, Criselda, [employer] 01/10/2020 J44.9 Chronic obstructive pulmonary di sease, unspecified Pleskach, Criselda, [employer] 12/16/2019 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 Pleskach, Criselda, [employer] 12/16/2019 I48.91 Unspecified atrial fibrillation Pleskach, Criselda, [employer] 12/16/2019 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, left leg Pleskach, Criselda, [employer] 12/16/2019 E11.69 Type 2 diabetes mellitus with ot her specified complication Pleskach, Criselda, [employer] 12/16/2019 J44.1 Chronic obstructive pulmonary disease with (acute) exacerbation Pleskach, Criselda, [employer] 12/03/2019 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 Pleskach, Criselda, [employer] 12/03/2019 I48.91 Unspecified atrial fibrillation Pleskach, Criselda, [employer] 12/03/2019 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, left leg Pleskach, Criselda, [employer] 12/03/2019 E11.69 Type 2 diabetes mellitus with ot her specified complication Pleskach, Criselda, [employer] 12/03/2019 J44.1 Chronic obstructive pulmonary disease with (acute) exacerbation Pleskach, Criselda, [employer] 12/02/2019 I50.23 Acute on chronic systolic (conge stive) heart failure Pleskach, Criselda, [employer] 11/26/2019 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 Pleskach, Criselda, [employer] 11/26/2019 I48.91 Unspecified atrial fibrillation Pleskach, Criselda, [employer] 11/26/2019 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, left leg Pleskach, Criselda, [employer] 11/26/2019 E11.69 Type 2 diabetes mellitus with ot her specified complication Pleskach, Criselda, [employer] 11/24/2019 L03.116 Cellulitis of left lower limb Pl Criselda connor, [employer] 11/24/2019 R06.00 Dyspnea, unspecified Pleskach, M svitlana, [employer] 11/09/2019 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 Pleskach, Criselda, [employer] 11/09/2019 E11.69 Type 2 diabetes mellitus with ot her specified complication Pleskach, Criselda, [employer] 11/09/2019 I48.91 Unspecified atrial fibrillation Pleskach, Criselda, [employer] 11/09/2019 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, left leg Pleskach, Criselda, [employer] 11/09/2019 J44.1 Chronic obstructive pulmonary disease with (acute) exacerbation Pleskach, Criselda, [employer] 10/20/2019 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 Pleskach, Criselda, [employer] 10/20/2019 E11.69 Type 2 diabetes mellitus with ot her specified complication Pleskach, Criselda, [employer] 10/20/2019 I48.91 Unspecified atrial fibrillation Pleskach, Criselda, [employer] 10/20/2019 E87.6 Hypokalemia Pleskach, Criselda, [employer] 10/20/2019 E83.42 Hypomagnesemia Pleskach, Criselda, [employer] 10/20/2019 R60.0 Localized edema Pleskach, Criselda, [employer] 10/20/2019 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, left leg PleskachMoey, [employer] 10/20/2019 J44.9 Chronic obstructive pulmonary di sease, unspecified Pleskach, Criselda, [employer] 10/18/2019 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 10/18/2019 E11.69 Type 2 diabetes mellitus with ot her specified complication Nuzhat Vega M.D. 10/18/2019 I48.91 Unspecified atrial fibrillation Nuzhat Vega M.D. 10/18/2019 E87.6 Hypokalemia Nuzhat Vega M.D. 10/18/2019 E83.42 Hypomagnesemia Nuzhat Vega M.D. 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 Pleskach Criselda, [employer] 09/20/2019 E11.69 Type 2 diabetes mellitus with ot her specified complication Pleskach, Criselda, [employer] 09/20/2019 E87.6 Hypokalemia Pleskach, Criselda, [employer] 09/20/2019 E83.42 Hypomagnesemia Pleskach, Criselda, [employer] 09/20/2019 J44.1 Chronic obstructive pulmonary disease with (acute) exacerbation 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, [employer] 09/20/2019 E66.01 Morbid (severe) obesity due to e xcess calories Moe Herreray, [employer] 09/20/2019 I48.91 Unspecified atrial fibrillation Pleskach Criselda, [employer] 09/08/2019 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 09/08/2019 E83.42 Hypomagnesemia Nuzhat Vega M.D. 09/08/2019 E87.6 Hypokalemia Nuzhat Vega M.D. 09/08/2019 J44.1 Chronic obstructive pulmonary disease with (acute) exacerbation Nuzhat Vega M.D. 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, [employer] 09/06/2019 E87.6 Hypokalemia 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, [employer] 09/06/2019 E83.42 Hypomagnesemia Sharon Criselda, [employer] 09/06/2019 J44.1 Chronic obstructive pulmonary disease with (acute) exacerbation PleCriselda gomez, [employer] 09/06/2019 E66.01 Morbid (severe) obesity due to e xcess calories 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, [employer] 09/06/2019 I48.91 Unspecified atrial fibrillation 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, [employer] Plan of Treatment Future Appointment(s):* 02/15/2020 1:30 pm - 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 [employer] at Main Office * 04/18/2020 1:00 pm - 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 [employer] at Main Office Functional Status Functional Condition Comment Date Status Bifocal glasses Active Independent with all ADL's Activ e Complete lower and upper and lower dentures Active Independent with all IADL's Acti ve Mental Status Mental Condition Comment Date Status None Active Referrals Refer to Reason for Referral Status Appt Date Freddy Gallegos MD [place] [id number] [place] [id number] [phone] [facility] referring for PAD, LLE redness and swelling and pain Closed 12/07/2019 [address] [facility], [address] [place] [address] [phone] [facility] referring for PAD, LLE redness and swelling and pain Patient Declined 12/21/2019 [address] , [address] [place] [address] [phone]
--- OUTSIDE RECORDS SUMMARY | 2020-03-07 19:47 | CCD | Continuity of Care Document ---
Author Author Sana HERRERA [facility] Organization Unknown Address [address] [place] [address] Phone [phone] Care Team Providers Care [place] Department Supervisor Name Role Phone Dhaval Manuel MD AUTM [phone] Nuzhat Langley MD AUTM [phone] Roberto Wallace MD AUTM [phone] [facility] - Surgery AUTM [phone] Problems Active Problems Provider Date Essential hypertension [...] to atherosclerosis of ar leonie of limb Sharon DEMETRIA Aburto Onset: 10/20/2019 Type 2 diabetes mellitus in obese Sharon Criselda [employer] Onset : 10/20/2019 Chronic obstructive pulmonary disease with (acute) exa cerbation Merlinmariogian CriseldaDEMETRIA Onset: 10/20/2019 Social History Type Date Description Comments Sex Unknown Tobacco Use Start: Unknown End: Unknown Current Cigarette Sm oker Packs Daily 1 Tobacco Use Start: Unknown Never Used Smokeless Tobacco ETOH Use Occasionally consumes alcohol Tobacco Use Start: 02/17/61 End: 08/15/13 Patient is a forme r smoker 1 ppd Recreational Drug Use Denies Drug Use Smoking Status Reviewed: 01/11/20 Patient is a former smoker 1 ppd Exercise Type/Frequency Exercises regularly Sun Exposure Does not use sunscreen Seat Belt/Car Seat Always uses seat belt Smoke Alarms Yes Smoke Alarms Carbon Monoxide Detector: Yes Allergies, Adverse Reactions, Alerts Active Allergies Reaction Severity Comments Date Codeine 06/27/2003 Demerol 06/27/2003 Septra rash 11/24/2003 Doxycycline vomiting 09/10/2018 Medications Active Medications SIG Qnty Indications Ordering Provide r Date Levofloxacin 750mg Tablets daily by mouth daily for 10 days 10tabs J44.9 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 FNP 0 Oxycodone-Acetaminophen 5-325mg Ta blets 1 tab by [...] dispense for lower extremity edema 2units R60.0 Pleskach, Criselda, [employer] 10/20/2019 Bacitracin (External) 500Unit/GM O intment apply [...] once a day 90tabs F32.9 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 [employer] 07/06/2019 Prednisone 5mg Tablets 1 tablet by mouth once a day Unknown 06/29/2019 Alcohol Prep 70% Pads use twice daily as directed before testing bs 1Box 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 FNP 12/03/2018 Fluticasone Propionate 50mcg/Act Suspension one spray each side of nose daily 32gm J30.9 Carmelaac Criselda kaminski FNP 10/14/2018 Ipratropium [place]/Albuterol Sulfate 0.5-2.5(3)mg/3ML Solution use 1 vial via nebulizer 4 times daily a s needed for coughing and wheezing 90ml 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 FNP 10/14 Neosporin Original 3.5-400-5000 Oi ntment apply to rash twice a day as needed 28.300gm R21 Emerson Herrera, [facility] 12/09/2017 Freestyle Lite Lancets Misc use to check fasting blood glusose twice daily, dx: e11.9 200units Criselda Ruelas FNP 04/07/2017 Freestyle Lite Test Strips use to check blood glucose 2 times a day, e11.9 200units Vivian Herrera, [employer] 04/07/2017 Freestyle Lite Blood Glucose Monitoring System Device use for monitoring blood glucose twice a day, dx e11.9, prognosis good, duration 99 months 1units 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 FNP Citalopram Hydrobromide 40mg Table ts 1 tab by mouth every day 90tabs F32.9 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 FNP 03/13/19 18 Proair HFA 108(90Base) mcg/Act Aer osol 2 puffs every 4 hours as needed for wheezing and coughing 3units 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, [facility] 04/12/2014 Lumigan 0.01% Solution one gtt. each eye at at bedtime Unknown Diltiazem HCL 60mg Tablets 1 tab by mouth once a at bedtime 90tabs 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, [employer] 0 Advair Diskus 500-50mcg/Dose Aeros ol inhale one puff by mouth every day 60units Vivian Herrera, [facility] Xarelto 20mg Tablets 1 by mouth every day Jason Cosby [facility] History Medications Torsemide 10mg Tablets take 1 tablet every [...] CPT Code Status Date Vaccine Lot # [id number] Given 03/25/2018 Pneumococcal Vaccine [id number] 09206 Given 12/09/2017 Influenza Virus Vaccine, Quadrivalent,age 3 and up,multidose vial [id number] Q2038 Given 12/04/2016 Influenza Vaccine (Fluzone)( medicare) [id number] Q2038 Given 11/14/2015 Influenza Vaccine (Fluzone)( medicare) [id number] 62162 Given 10/12/2015 Prevnar 13 For Adults 36316 Given 11/17/2013 Influenza Vaccination 89856 Given 11/18/2007 Influenza Vaccination [id number] 10494 Given 12/12/2006 Influenza Vaccination [id number] Vital Signs Date Vital Result Comment 01/19/2020 2:18pm BP Systolic 108 mmHg BP Diastolic 77 mmHg Heart Rate 93 /min Body Temperature 97.3 F Respiratory Rate 22 /min Height 61.5 inches 5'1.50" Weight 252.50 lb O2 % BldC Oximetry 94 % Peak Expiratory Flow Rate 292 Estimated Peak Flow Rate [place] Body Weight 105 lb BMI (Body Mass Index) 46.9 kg/m2 01/11/2020 3:53pm BP Systolic 120 mmHg BP Diastolic 61 mmHg Heart Rate 100 /min Body Temperature 96.9 F Respiratory Rate 26 /min Height 61.5 inches 5'1.50" Weight 253.38 lb O2 % BldC Oximetry 95 % Peak Expiratory Flow Rate 292 Estimated Peak Flow Rate [place] Body Weight 105 lb BMI (Body Mass Index) 47.1 kg/m2 Results Test Acquired Date Facility Test Result H/L Range Note Comprehensive Metabolic Profil 01/19/2020 [facility] [phone] Glucose, Fasting 139 mg/dL High 70-100 Blood Urea Nitrogen 21 mg/dL High 7-18 Creatinine For GFR 1.54 mg/dL High 0.55-1.30 Glomerular Filtration Rate 34.7 Low >39 1 Sodium Level 138 mEq/L Normal 136-145 Potassium [...] Ratio 1.4 Normal 1.2-2.2 Hemoglobin A1c 01/19/2020 [facility] nter [phone] Hemoglobin A1c 6.5 % Normal 2 Estimated Average Glucose 140 mg/dL High 60-110 Istat Chem8+ Panel 12/02/2019 [place] [address] [phone] iSTAT HCT 31.0 % Low 38.0-51.0 iSTAT Glucose 116 mg/dL High 70-105 iSTAT Sodium 140 mEq/L Normal 136-145 iSTAT Potassium 3.8 mEq/L Normal 3.5-5.1 iSTAT CA++ 4.8 mg/dL Normal 4.5-5.3 iSTAT Chloride 99 mEq/L Normal 98-109 iSTAT Co2 28.0 MM/L High 23.0-27.0 iSTAT BUN 17 mg/dL Normal 8-26 iSTAT Creatinine 1.1 mg/dL Normal 0.6-1.3 Laboratory test finding 12/02/2019 [place] [address] [phone] iSTAT Troponin 0.00 NG/ML Normal 0.00-0.08 Laboratory test finding 12/02/2019 [place] [address] [phone] NT-Pro BNP 377 pg/mL Normal <450 Phenobarbital Level 2.1 UG/ML Low 15.0-40.0 Thyroid Stimulating Hormone 1.970 uIU/ML Normal 0.358-3.740 Lactic Acid Sepsis Protocol 1.4 mmol/L Normal 0.4-2.0 3 Liver Profile 12/02/[address] [facility] [place] [address] [phone] Ast/Sgot 7 U/L Normal 7-37 Alt/SGPT 11 U/L Low 12-78 Alkaline Phosphatase 59 U/L Normal 45-117 Bilirubin,Total 0.7 mg/dL Normal 0.2-1.0 Bilirubin,Direct 0.3 mg/dL High 0.0-0.2 Total Protein 5.6 GM/DL Low 6.4-8.2 Albumin 3.2 GM/DL Normal 3.2-5.2 Albumin/Globulin Ratio 1.3 Normal 1.2-2.2 Prothrombin Time/Inr 12/02/[address] [place] [address] [phone] Prothrombin Time 19.4 seconds High 12.5-14.3 Inr 1.60 Normal 4 CBC With Differential 12/02/2019 [place] [address] [phone] White Blood Count 8.8 10 Normal 4.0-10.0 [...] 36.0-66.0 Lymph % 10.9 % Low 24.0-44.0 [place] % 7.1 % High 0.0-5.0 Eos % 1.9 % Normal 0.0-3.0 Baso % 0.5 % Normal 0.0-1.0 Immature Granulocyte % 0.6 % Normal 0-3.0 Nucleated Red Blood Cell % 0.0 % Normal 0-0 Neutrophils # 6.9 10 Normal 1.5-8.5 Lymph # 1.0 10 Low 1.5-5.0 [place] # 0.6 10 Normal 0.0-0.8 Eos # 0.2 10 Normal 0.0-0.5 Baso # 0.0 10 Normal 0.0-0.2 Venous Blood Gas 12/02/[address] [place] [address] [phone] Venous PH 7.482 units High 7.330-7.430 Venous Partial Pressure Co2 37.5 mmHg Low 38.0-50.0 Venous Partial Pressure O2 135.7 mmHg High 30.0-50.0 Venous Total Co2 28.6 mEq/L High 24.0-28.0 Venous Hco3 27.4 mEq/L High 23.0-27.0 Venous Base Excess 3.9 High -2.0-2.0 Venous Standard Hco3 28.0 mEq/L Normal Venous O2 Saturation 98.9 % High 60.0-80.0 Laboratory test finding 12/02/2019 [place] [address] [phone] Sars Covid-19 Amplification NEGATIVE Normal Nega tive 5 CBC With Differential 11/24/2019 [place] [address] [phone] White Blood Count 8.2 10 Normal 4.0-10.0 [...] 36.0-66.0 Lymph % 10.7 % Low 24.0-44.0 [place] % 5.6 % High 0.0-5.0 Eos % 2.1 % Normal 0.0-3.0 Baso % 0.5 % Normal 0.0-1.0 Immature Granulocyte % 0.6 % Normal 0-3.0 Nucleated Red Blood Cell % 0.0 % Normal 0-0 Neutrophils # 6.6 10 Normal 1.5-8.5 Lymph # 0.9 10 Low 1.5-5.0 [place] # 0.5 10 Normal 0.0-0.8 Eos # 0.2 10 Normal 0.0-0.5 Baso # 0.0 10 Normal 0.0-0.2 Laboratory test finding 11/24/2019 [place] [address] [phone] Erythrocyte Sedimentation Rate 11 mm/hr Normal 0 -30 Cardiac Marker Panel 11/24/2019 Patient Service [facility] [place] [address] [phone] CPK Creatine Phosphokinase 26 U/L Normal 26-19 2 CK-MB Value Mass 1.2 NG/ML Normal <3.6 MB/CK Relative Index 4.62 High < Or =4 6 Troponin I < 0.02 NG/ML Normal < 0.10 7 Liver Profile 11/24/2019 Patient Service [facility] [place] [address] [phone] Ast/Sgot 7 U/L Normal 7-37 Alt/SGPT 12 U/L Normal 12-78 Alkaline Phosphatase 56 U/L Normal 45-117 Bilirubin,Total 0.9 mg/dL Normal 0.2-1.0 Bilirubin,Direct 0.3 mg/dL High 0.0-0.2 Total Protein 5.5 GM/DL Low 6.4-8.2 Albumin 3.2 GM/DL Normal 3.2-5.2 Albumin/Globulin Ratio 1.4 Normal 1.2-2.2 Basic Metabolic Profile 11/24/2019 [place] [address] [phone] Glucose, Fasting 139 mg/dL High 70-100 Blood Urea Nitrogen 17 mg/dL Normal 7-18 Creatinine For GFR 1.27 mg/dL Normal 0.55-1.30 Glomerular Filtration Rate 43.4 Normal >39 8 Sodium Level 140 mEq/L Normal 136-145 Potassium Serum 4.0 mEq/L Normal 3.5-5.1 Chloride Level 105 mEq/L Normal 98-107 Carbon Dioxide Level 30 mEq/L Normal 21-32 Anion Gap 5 mEq/L Low 8-16 Calcium Level 9.2 mg/dL Normal 8.8-10.2 Laboratory test finding 11/24/2019 [place] [address] [phone] NT-Pro BNP 244 pg/mL Normal <450 Thyroid Stimulating Hormone 2.460 uIU/ML Normal 0.358-3.740 C Reactive Protein Quantitativ 0.77 mg/dL High 0.00-0.30 Laboratory test finding 10/10/2019 [place] [address] [phone] NT-Pro BNP 264 pg/mL Normal <450 Thyroxine (T4) 8.4 g/dL Normal 4.5-12.0 Thyroid Stimulating Hormone 1.340 uIU/ML Normal 0.358-3.740 Basic Metabolic Profile 10/10/2019 [place] [address] [phone] Glucose, Fasting 108 mg/dL High 70-100 Blood Urea Nitrogen 17 mg/dL Normal 7-18 Creatinine For GFR 1.25 mg/dL Normal 0.55-1.30 Glomerular Filtration Rate 44.2 Normal >39 9 Sodium Level 141 mEq/L Normal 136-145 Potassium Serum 3.9 mEq/L Normal 3.5-5.1 Chloride Level 106 mEq/L Normal 98-107 Carbon Dioxide Level 29 mEq/L Normal 21-32 Anion Gap 6 mEq/L Low 8-16 Calcium Level 9.6 mg/dL Normal 8.8-10.2 Liver Profile 10/10/2019 Patient Service [facility] [place] [address] [phone] Ast/Sgot 11 U/L Normal 7-37 Alt/SGPT 10 U/L Low 12-78 Alkaline Phosphatase 56 U/L Normal 45-117 Bilirubin,Total 0.6 mg/dL Normal 0.2-1.0 Bilirubin,Direct 0.2 mg/dL Normal 0.0-0.2 Total Protein 5.7 GM/DL Low 6.4-8.2 Albumin 3.4 GM/DL Normal 3.2-5.2 Albumin/Globulin Ratio 1.5 Normal 1.2-2.2 Cardiac Marker Panel 10/10/[address] [place] [address] [phone] CPK Creatine Phosphokinase 25 U/L Low 26-19 2 CK-MB Value Mass 1.0 NG/ML Normal <3.6 MB/CK Relative Index 4.00 Normal < Or =4 10 Troponin I < 0.02 NG/ML Normal < 0.10 11 Laboratory test finding 10/10/2019 [place] [address] [phone] Lactic Acid Sepsis Protocol 2.0 mmol/L Normal 0.4- 2.0 12 CBC With Differential 10/10/2019 [place] [address] [phone] White Blood Count 9.0 10 Normal 4.0-10.0 [...] 36.0-66.0 Lymph % 13.0 % Low 24.0-44.0 [place] % 5.9 % High 0.0-5.0 Eos % 0.2 % Normal 0.0-3.0 Baso % 0.2 % Normal 0.0-1.0 Immature Granulocyte % 0.7 % Normal 0-3.0 Nucleated Red Blood Cell % 0.0 % Normal 0-0 Neutrophils # 7.2 10 Normal 1.5-8.5 Lymph # 1.2 10 Low 1.5-5.0 [place] # 0.5 10 Normal 0.0-0.8 Eos # 0.0 10 Normal 0.0-0.5 Baso # 0.0 10 Normal 0.0-0.2 Venous Blood Gas 10/10/2019 [place] [address] [phone] Venous PH 7.380 units Normal 7.330-7.430 Venous Partial Pressure Co2 42.1 mmHg Normal 38.0-50.0 Venous Partial Pressure O2 66.4 mmHg High 30.0-50.0 Venous Total Co2 24.3 mEq/L Normal 24.0-28.0 Venous Hco3 24.3 mEq/L Normal 23.0-27.0 Venous Base Excess -0.8 Normal -2.0-2.0 Venous Standard Hco3 23.7 mEq/L Normal Venous O2 Saturation 91.3 % High 60.0-80.0 Hem[facility] [phone] Hemoglobin A1c 8.1 % Normal 13 Estimated Average Glucose 186 mg/dL High 60-110 Lipid Panel 08/29/2019 [facility] nter [phone] Triglycerides Level 75 mg/dL Normal <150 Cholesterol Level 121 mg/dL Normal <200 HDL Cholesterol 50 mg/dL Normal >40 LDL Cholesterol 56 mg/dL Normal <100 Non-HDL-C 71 mg/dL Normal Cholesterol Risk Ratio 2.420 Normal <5 Comprehensive Metabolic Profil 08/29/2019 [facility] [phone] Glucose, Fasting 132 mg/dL High 70-100 Blood Urea Nitrogen 12 mg/dL Normal 7-18 Creatinine For GFR 1.14 mg/dL Normal 0.55-1.30 Glomerular Filtration Rate 49.2 Normal >39 1 4 Sodium Level 141 mEq/L Normal 136-145 [...] 1.4 Normal 1.2-2.2 Laboratory test finding 08/29/2019 [facility] [phone] Magnesium Level 2.0 mg/dL Normal 1.8-2.4 Basic Metabolic Profile 08/23/2019 Patient Service [place], [place] [address] [phone] Glucose, Fasting 163 mg/dL High 70-100 Blood Urea Nitrogen 19 mg/dL High 7-18 Creatinine For GFR 1.14 mg/dL Normal 0.55-1.30 Glomerular Filtration Rate 49.2 Normal >39 1 5 Sodium Level 140 mEq/L Normal 136-145 Potassium Serum 4.8 mEq/L Normal 3.5-5.1 Chloride Level 105 mEq/L Normal 98-107 Carbon Dioxide Level 29 mEq/L Normal 21-32 Anion Gap 6 mEq/L Low 8-16 Calcium Level 9.4 mg/dL Normal 8.8-10.2 Complete Blood Count 07/27/2019 [place] [address] [phone] White Blood Count 10.9 10 High 4.0-10.0 Red Blood Count 3.68 10 Low 4.00-5.40 Hemoglobin 10.1 g/dL Low 12.0-15.5 Hematocrit 33.1 % Low 36.0-47.0 Mean Corpuscular Volume 89.9 fl Normal 80.0-96.0 Mean Corpuscular Hemoglobin 27.4 pg Normal 27.0-33.0 Mean Corpuscular HGB Conc 30.5 g/dL Low 32.0-36.5 Red Cell Distribution Width 16.4 % High 11.5-14.5 Platelet Count, Automated 190 10 Normal 150-450 Nucleated Red Blood Cell % 0.3 % High 0-0 Laboratory test finding 07/27/2019 [place] [address] [phone] Erythrocyte Sedimentation Rate 23 mm/hr Normal 0 -30 Basic Metabolic Profile 07/27/2019 [place] [address] [phone] Glucose, Fasting 159 mg/dL High 70-100 Blood Urea Nitrogen 15 mg/dL Normal 7-18 Creatinine For GFR 0.98 mg/dL Normal 0.55-1.30 Glomerular Filtration Rate 58.6 Normal >39 1 6 Sodium Level 140 mEq/L Normal 136-145 Potassium Serum 4.2 mEq/L Normal 3.5-5.1 Chloride Level 104 mEq/L Normal 98-107 Carbon Dioxide Level 30 mEq/L Normal 21-32 Anion Gap 6 mEq/L Low 8-16 Calcium Level 8.4 mg/dL Low 8.8-10.2 Laboratory test finding 07/27/2019 [place] [address] [phone] Vancomycin Level Trough 11.9 UG/ML Normal 10.0-20. 0 C Reactive Protein Quantitativ 1.74 mg/dL High 0.00-0.30 1 Units are mL/min/1.73 m2 Chronic Kidney Disease Staging per NKF: Stage I & II GFR >=60 Normal to Mildly Decreased Stage III GFR 30-59 Moderately Decreased Stage IV GFR 15-29 Severely Decreased Stage V GFR <15 Very Little GFR Left ESRD GFR <15 on PHOTOGRAPHER ASSISTANT 2 REFERENCE RANGES: <=5.6% NORMAL 5.7-6.4% SUGGESTS IMPAIRED GLUCOSE META BOLISM/PREDIABETIC >= 6.5% ABNORMAL 3 Y/N query for Sepsis Lactate Rule: Y 4 THERAPUTIC HUMAN INR VALUES INDICATIONS NORMAL RANGES PROPHYLAXIS/TREATMENT OF: VENOUS THROMBOSIS 2.0-3.0 PULMONARY EMBOLISM 2.0-3.0 PREVENTION OF SYSTEMIC EMBOLISM FROM: TISSUE HEART VALVES 2.0-3.0 ACUTE MYOCARDIAL INFARCTION 2.0-3.0 VALVULAR HEART DISEASE 2.0-3.0 ATRIAL FIBRILLATION 2.0-3.0 MECHANICAL VALVES(HIGH RISK) 2.5-3.5 RECURRENT MYOCARDIAL INFARCTION 2.5-3.5 5 A false negative result may occur if [...] pathogens. DISCLAIMER: Testing was performed using the [employer] SARS-CoV-2 test. This test was developed and its performance characteristics determined by [employer]. This test has not been FDA cleared [...] the authorization is terminated or revoked sooner. 6 DIAGNOSIS CRITERIA MMB ng/ml Relative Index (RI) NON-AMI < or = 5 N/A GOYAL ZONE > 5 < or = 4 AMI > 5 > 4 7 Troponin I Reference Interva l for Siemens [place] LOCI: 99th Percentile= 0.00-0.045 ng/ml Risk Stratification: [...] Little GFR Left ESRD GFR <15 on PHOTOGRAPHER ASSISTANT 9 Units are mL/min/1.73 m2 Chronic Kidney Disease Staging per NKF: Stage I & II GFR >=60 Normal to Mildly Decreased Stage III GFR 30-59 Moderately Decreased Stage IV GFR 15-29 Severely Decreased Stage V GFR <15 Very Little GFR Left ESRD GFR <15 on PHOTOGRAPHER ASSISTANT 10 DIAGNOSIS CRITERIA MMB ng/ml Relative Index (RI) NON-AMI < or = 5 N/A GOYAL ZONE > 5 < or = 4 AMI > 5 > 4 11 Troponin I Reference Interva l for Drive.SGta LOCI: 99th Percentile= 0.00-0.045 ng/ml Risk Stratification: <= 0.10 ng/ml Decreased Risk for Adverse Clinical Events. 0.10-1.50 ng/ml Increased Risk for Adv erse Clinical Events. Evaluation of additional criterion and/or repeat testing in 2-6 hours is suggested to rule out myocardial damage. >= 1.50 ng/ml Indicative of Myocardial Injury. 12 Y/N query for Sepsis Lactate Rule: Y 13 REFERENCE RANGES: 4.5-5.6% NORMAL 5.7-6.4% SUGGESTS IMPAIRED GLUCOSE META BOLISM >= 6.5% ABNORMAL 14 Units are mL/min/1.73 m2 Chronic Kidney Disease Staging per NKF: Stage I & II GFR >=60 Normal to Mildly Decreased Stage III GFR 30-59 Moderately Decreased Stage IV GFR 15-29 Severely Decreased Stage V GFR <15 Very Little GFR Left ESRD GFR <15 on PHOTOGRAPHER ASSISTANT 15 Units are mL/min/1.73 m2 Chronic Kidney Disease Staging per NKF: Stage I & II GFR >=60 Normal to Mildly Decreased Stage III GFR 30-59 Moderately Decreased Stage IV GFR 15-29 Severely Decreased Stage V GFR <15 Very Little GFR Left ESRD GFR <15 on PHOTOGRAPHER ASSISTANT 16 Units are mL/min/1.73 m2 Chronic Kidney Disease Staging per NKF: Stage I & II GFR >=60 Normal to Mildly Decreased Stage III GFR 30-59 Moderately Decreased Stage IV GFR 15-29 Severely Decreased Stage V GFR <15 Very Little GFR Left ESRD GFR <15 on PHOTOGRAPHER ASSISTANT Procedures Date Code Description Status 03/25/2018 [id number] Diabetic Foot Exam Completed 09/12/2017 [id number] Mammogram Completed 05/09/2014 [id number] Mammogram Completed 04/27/2014 [id number] Mammogram Completed 12/10/2010 [id number] Mammogram Completed Medical Devices Description No Information Available Encounters Type Date Location Provider Dx Diagnosis Office Visit 01/19/2020 2:00p Main Office 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 FNP Z00.0 0 Encntr for general adult medical exam w/o abnormal findings 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 I48.91 Unspecified atrial fibrillat ion I70.212 [place] arteries of ex trm w intrmt damaris, left leg E11.69 Type 2 diabetes mellitus wit h other specified complication J44.9 Chronic obstructive pulmonar y disease, unspecified Office Visit 01/11/2020 3:45p Main Office 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 FNP 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 I48.91 Unspecified atrial fibrillat ion I70.212 [place] arteries of ex trm w intrmt damaris, left leg E11.69 Type 2 diabetes mellitus wit h other specified complication J44.1 Chronic obstructive pulmonar y disease w (acute) exacerbation Office Visit 12/16/2019 1:15p Main Office 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 FNP 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 I48.91 Unspecified atrial fibrillat ion I70.212 [place] of ex trm w intrmt damaris, left leg E11.69 Type 2 diabetes mellitus wit h other specified complication J44.1 Chronic obstructive pulmonar y disease w (acute) exacerbation Office Visit 12/02/2019 4:00p Main Office 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 FNP I50.2 3 Acute on chronic systolic (congestive) heart failure Office Visit 11/24/2019 10:00a Main Office 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 FNP L03.1 16 Cellulitis of left lower limb R06.00 Dyspnea, unspecified Office Visit 10/20/2019 1:45p Main Office 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 [employer] 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 E11.69 Type 2 diabetes mellitus wit h other specified complication I48.91 Unspecified atrial fibrillat ion E87.6 Hypokalemia E83.42 Hypomagnesemia R60.0 Localized edema I70.212 [place] arteries of ex trm w intrmt damaris, left leg J44.9 Chronic obstructive pulmonar y disease, unspecified Office Visit 09/20/2019 1:00p Main Office 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, AUTOMAT[employer] SCREWMAKER 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 E11.69 Type 2 diabetes mellitus wit h other specified complication E87.6 Hypokalemia E83.42 Hypomagnesemia J44.1 Chronic obstructive pulmonar y disease w (acute) exacerbation E66.01 Morbid (severe) obesity due to excess calories I48.91 Unspecified atrial fibrillat ion Office Visit 09/06/2019 11:30a Main Office 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 [employer] SCRE[employer] E11.6 9 Type 2 diabetes mellitus with other specified complication 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 01/19/2020 Z00.00 Encounter for genera l adult medical examination without abnormal findings 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 [employer]CRE[employer] 01/19/2020 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 01/19/2020 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 Pleskach Criselda, [employer] SCREWMAKER 01/19/2020 I48.91 Unspecified atrial fibrillation Nuzhat Langley M.D. 01/19/2020 I48.91 Unspecified atrial fibrillation Pleskach Criselda, AUTOMAT[employer] SCREWMAKER 01/19/2020 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, left leg Nuzhat Langley M.D. 01/19/2020 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, left leg Pleskach, Criselda, AUT[employer] SCRE[employer]ER 01/19/2020 E11.69 Type 2 diabetes mellitus with ot her specified complication Nuzhat Langley M.D. 01/19/2020 E11.69 Type 2 diabetes mellitus with ot her specified complication Pleskach, Criselda, AUTOMAT[employer] SCREWMAKER 01/19/2020 J44.9 Chronic obstructive pulmonary di sease, unspecified Nuzhat Langley M.D. 01/19/2020 J44.9 Chronic obstructive pulmonary di sease, unspecified Pleskach, Criselda, AUTOMAT[employer] SCREWMAKER 01/11/2020 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 Plemarioach Criselda, AUTOMATIC SCREWMAKER 01/11/2020 I48.91 Unspecified atrial fibrillation Pleskach Criselda, AUTOMATIC SCREWMAKER 01/11/2020 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, left leg Pleskach, Criselda, AUTOMAT[employer] SCREWMAKER 01/11/2020 E11.69 Type 2 diabetes mellitus with ot her specified complication Pleskach, Criselda, AUTOMATIC SCREWMAKER 01/11/2020 J44.1 Chronic obstructive pulmonary disease with (acute) exacerbation Pleskach, Criselda, AUTOMATIC SCREWMAKER 01/10/2020 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 Pleskach, Criselda, AUTOMATIC SCREWMAKER 01/10/2020 I48.91 Unspecified atrial fibrillation Pleskach, Criselda, AUTOMATIC SCREWMAKER 01/10/2020 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, left leg Pleskach, Criselda, AUTOMATIC SCREWMAKER 01/10/2020 E11.69 Type 2 diabetes mellitus with ot her specified complication Pleskach, Criselda, [employer] SCREW[employer]ER 01/10/2020 J44.9 Chronic obstructive pulmonary di sease, unspecified Pleskach, Criselda, AUTOMAT[employer] SCREWMAKER 12/16/2019 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 Pleskach, Criselda, AUTOMAT[employer] SCREW[employer]KER 12/16/2019 I48.91 Unspecified atrial fibrillation Pleskach, Criselda, AUTOMAT[employer] SCREWMAKER 12/16/2019 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, left leg Pleskach, Criselda, AUTOMAT[employer] SCREW[employer]KER 12/16/2019 E11.69 Type 2 diabetes mellitus with ot her specified complication Pleskach, Criselda, AUTOMAT[employer] SCREW[employer]KER 12/16/2019 J44.1 Chronic obstructive pulmonary disease with (acute) exacerbation Pleskach, Criselda, AUTOMAT[employer] SCREWMAKER 12/03/2019 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 Pleskach, Criselda, AUTOMATIC SCREWMAKER 12/03/2019 I48.91 Unspecified atrial fibrillation Pleskach, Criselda, AUTOMATIC SCREWMAKER 12/03/2019 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, left leg Pleskach, Criselda, AUTOMAT[employer] SCREW[employer]KER 12/03/2019 E11.69 Type 2 diabetes mellitus with ot her specified complication Pleskach, Criselda, AUTOMAT[employer] SCREWMAKER 12/03/2019 J44.1 Chronic obstructive pulmonary disease with (acute) exacerbation Pleskach, Criselda, AUTOMAT[employer] SCRE[employer]KER 12/02/2019 I50.23 Acute on chronic systolic (conge stive) heart failure Pleskach, Criselda, AUTOMATIC SCREWMAKER 11/26/2019 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 Pleskach, Criselda, AUTOMATIC SCREWMAKER 11/26/2019 I48.91 Unspecified atrial fibrillation Pleskach, Criselda, AUTOMATIC SCREWMAKER 11/26/2019 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, left leg Pleskach, Criselda, AUTOMATIC SCREWMAKER 11/26/2019 E11.69 Type 2 diabetes mellitus with ot her specified complication PleCriselda gomez, AUTOMATIC SCREWMAKER 11/24/2019 L03.116 Cellulitis of left lower limb Pl Criselda connor, AUTOMATIC SCREWMAKER 11/24/2019 R06.00 Dyspnea, unspecified PleLesly gomez, AUTOMATIC SCREWMAKER 11/09/2019 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 PleskMoe springery, AUTOMATIC SCREWMAKER 11/09/2019 E11.69 Type 2 diabetes mellitus with ot her specified complication PleskachMoey, AUTOMATIC SCREWMAKER 11/09/2019 I48.91 Unspecified atrial fibrillation PleskachMoey, AUTOMATIC SCREWMAKER 11/09/2019 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, left leg PleCriselda gomez, AUTOMATIC SCREWMAKER 11/09/2019 J44.1 Chronic obstructive pulmonary disease with (acute) exacerbation PleskCriselda springer, AUTOMATIC SCREWMAKER 10/20/2019 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 PleMoe gomezy, AUTOMATIC SCREWMAKER 10/20/2019 E11.69 Type 2 diabetes mellitus with ot her specified complication PleMoe gomezy, AUTOMATIC SCREWMAKER 10/20/2019 I48.91 Unspecified atrial fibrillation PleCriselda gomez, AUTOMATIC SCREWMAKER 10/20/2019 E87.6 Hypokalemia Moe Herreray, AUTOMATIC SCREWMAKER 10/20/2019 E83.42 Hypomagnesemia PleMeo gomezy, AUTOMATIC SCREWMAKER 10/20/2019 R60.0 Localized edema PleskachMoey, AUTOMATIC SCREWMAKER 10/20/2019 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, left leg PleskachMoey, AUTOMAT[employer] SCREW[employer]KER 10/20/2019 J44.9 Chronic obstructive pulmonary di sease, unspecified Pleskach Criselda, AUTOMATIC SCREWMAKER 10/18/2019 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 10/18/2019 E11.69 Type 2 diabetes mellitus with ot her specified complication Nuzhat Langley M.D. 10/18/2019 I48.91 Unspecified atrial fibrillation Nuzhat Langley M.D. 10/18/2019 E87.6 Hypokalemia Nuzhat Langley M.D. 10/18/2019 E83.42 Hypomagnesemia Nuzhat Langley M.D. 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 Pleskach, Criselda, AUTOMATIC SCREWMAKER 09/20/2019 E11.69 Type 2 diabetes mellitus with ot her specified complication Pleskach, Criselda, AUTOMATIC SCREWMAKER 09/20/2019 E87.6 Hypokalemia Pleskach, Criselda, AUTOMATIC SCREWMAKER 09/20/2019 E83.42 Hypomagnesemia Pleskach, Criselda, AUTOMATIC SCREWMAKER 09/20/2019 J44.1 Chronic obstructive pulmonary disease with (acute) exacerbation Pleskach, Criselda, AUTOMAT[employer] SCREW[employer]KER 09/20/2019 E66.01 Morbid (severe) obesity due to e xcess calories Pleskach, Criselda, AUTOMAT[employer] SCREWMAKER 09/20/2019 I48.91 Unspecified atrial fibrillation Pleskach, Criselda, AUTOMATIC SCREWMAKER 09/08/2019 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 09/08/2019 E83.42 Hypomagnesemia Nuzhat Langley M.D. 09/08/2019 E87.6 Hypokalemia Nuzhat Langley M.D. 09/08/2019 J44.1 Chronic obstructive pulmonary disease with (acute) exacerbation Nuzhat Langley M.D. 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 Pleskach, Criselda, AUTOMATIC SCREWMAKER 09/06/2019 E87.6 Hypokalemia Pleskach, Criselda, AUTOMATIC SCREWMAKER 09/06/2019 E83.42 Hypomagnesemia Pleskach, Criselda, AUTOMATIC SCREWMAKER 09/06/2019 J44.1 Chronic obstructive pulmonary disease with (acute) exacerbation Pleskach, Criselda, AUTOMAT[employer] SCREW[employer]KER 09/06/2019 E66.01 Morbid (severe) obesity due to e xcess calories Pleskach, Criselda, AUTOM[employer] SCREW[employer]KER 09/06/2019 I48.91 Unspecified atrial fibrillation 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 FNP Plan of Treatment Future Appointment(s):* 04/18/2020 1:00 pm - 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 FNP at Main Office Functional Status Functional Condition Comment Date Status Bifocal glasses Active Independent with all ADL's Activ e Complete lower and upper and lower dentures Active Independent with all IADL's Acti ve Mental Status Mental Condition Comment Date Status None Active Referrals Refer to Dr Reason for Referral Status Appt Date [facility] referring for PAD, LLE redness and swelling and pain Closed 12/07/2019 [address] [facility], [address] [place] [address] [phone] [facility] referring for PAD, LLE redness and swelling and pain Patient Declined 12/21/[address] [place], [place] [address], [address] [place], [place] [id number] [phone]
--- OUTSIDE RECORDS SUMMARY | 2020-03-07 19:47 | CCD | Continuity of Care Document ---
Author Author Sana VEGA M.D. Organization Unknown Address [address] [place] [address] Phone [phone] Care Team Providers Care Mobile Mechanic Name Role Phone Dhaval Manuel MD AUTM [phone] Nuzhat Vega MD AUTM [phone] Roberto Wallace MD AUTM [phone] [facility] - Surgery AUTM [phone] Problems Active Problems Provider Date Essential hypertension [...] 2 diabetes mellitus in obese Sharon Criselda REFUGE MANAGER Onset : 10/20/2019 Chronic obstructive pulmonary disease [...] lower extremity edema 2units R60.0 Pleskach, Criselda, REFUGE MANAGER 10/20/2019 Bacitracin (External) 500Unit/GM O intment apply [...] once a day 90tabs F32.9 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 REFUGE MANAGER 07/06/2019 Prednisone 5mg Tablets 1 tablet by mouth once a day Unknown 06/29/2019 Alcohol Prep 70% Pads use twice daily as directed before testing bs 1Box 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 FNP 12/03/2018 Fluticasone Propionate 50mcg/Act Suspension one spray each side of nose daily 32gm J30.9 Carmelaac Criselda kaminski FNP 10/14/2018 Ipratropium [place]/Albuterol Sulfate 0.5-2.5(3)mg/3ML Solution use 1 vial via nebulizer 4 times daily a s needed for coughing and wheezing 90ml 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 FNP 10/14 Neosporin Original 3.5-400-5000 Oi ntment apply to rash twice a day as needed 28.300gm R21 Emerson Herrera, [facility] 12/09/2017 Freestyle Lite Lancets Misc use to check fasting blood glusose twice daily, dx: e11.9 200units Criselda Ruelas FNP 04/07/2017 Freestyle Lite Test Strips use to check blood glucose 2 times a day, e11.9 200units Vivian Herrera, REFUGE MANAGER 04/07/2017 Freestyle Lite Blood Glucose Monitoring System [...] for wheezing and coughing 3units 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, [facility] 04/12/2014 Lumigan 0.01% Solution one gtt. each eye at at bedtime Unknown Diltiazem HCL 60mg Tablets 1 tab by mouth once a at bedtime 90tabs 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, REFUGE MANAGER 0 Advair Diskus 500-50mcg/Dose Aeros ol inhale one puff by mouth every day 60units Vivian Herrera, [facility] Xarelto 20mg Tablets 1 by mouth every day Jason Cosby [facility] History Medications Torsemide 10mg Tablets take 1 [...] CPT Code Status Date Vaccine Lot # [id number] Given 03/25/2018 Pneumococcal Vaccine [id number] Given 12/09/2017 Influenza Virus Vaccine, Quadrivalent,age 3 and up,multidose vial [id number] Given 12/04/2016 Influenza Vaccine (Fluzone)( medicare) [id number] Given 11/14/2015 Influenza Vaccine (Fluzone)( medicare) [id number] Given 10/12/2015 Prevnar 13 For Adults 61919 Given 11/17/2013 Influenza Vaccination 32592 Given 11/18/2007 Influenza Vaccination [id number] 47217 Given 12/12/2006 Influenza Vaccination [id number] Vital Signs Date Vital Result Comment 01/19/2020 2:18pm BP Systolic 108 mmHg BP Diastolic 77 mmHg Heart Rate 93 /min Body Temperature 97.3 F Respiratory Rate 22 /min Height 61.5 inches 5'1.50" Weight 252.50 lb O2 % BldC Oximetry 94 % Peak Expiratory Flow Rate 292 Estimated Peak Flow Rate [place] Body Weight 105 lb BMI (Body Mass Index) 46.9 kg/m2 01/11/2020 3:53pm BP Systolic 120 mmHg BP Diastolic 61 mmHg Heart Rate 100 /min Body Temperature 96.9 F Respiratory Rate 26 /min Height 61.5 inches 5'1.50" Weight 253.38 lb O2 % BldC Oximetry 95 % Peak Expiratory Flow Rate 292 Estimated Peak Flow Rate [place] Body Weight 105 lb BMI (Body Mass Index) 47.1 kg/m2 Results Test Acquired Date Facility Test Result H/L Range Note Cardiac Marker Panel 01/24/2020 [place] [address] [phone] CPK Creatine Phosphokinase 27 U/L Normal 26-19 2 CK-MB Value Mass 1.2 NG/ML Normal <3.6 MB/CK Relative Index 4.44 High < Or =4 1 Troponin I < 0.02 NG/ML Normal < 0.10 2 CBC With Differential 01/23/2020 [place] [address] [phone] White Blood Count 10.4 10 High 4.0-10.0 [...] 36.0-66.0 Lymph % 8.0 % Low 24.0-44.0 [place] % 5.0 % Normal 0.0-5.0 Eos % 0.4 % Normal 0.0-3.0 Baso % 0.2 % Normal 0.0-1.0 Immature Granulocyte % 0.8 % Normal 0-3.0 Nucleated Red Blood Cell % 0.0 % Normal 0-0 Neutrophils # 8.9 10 High 1.5-8.5 Lymph # 0.8 10 Low 1.5-5.0 [place] # 0.5 10 Normal 0.0-0.8 Eos # 0.0 10 Normal 0.0-0.5 Baso # 0.0 10 Normal 0.0-0.2 Prothrombin Time/Inr 01/23/2020 [place] [address] [phone] Prothrombin Time 26.3 seconds High 12.5-14.3 Inr 2.35 Normal 3 Cardiac Marker Panel 01/23/2020 [place] [address] [phone] CPK Creatine Phosphokinase 43 U/L Normal 26-19 2 CK-MB Value Mass < 1.0 NG/ML Normal <3.6 MB/CK Relative Index 2.33 Normal < Or =4 4 Troponin I < 0.02 NG/ML Normal < 0.10 5 Liver Profile 01/23/2020 Patient Service [place], [place] [id number] [phone] Ast/Sgot 7 U/L Normal 7-37 Alt/SGPT 9 U/L Low 12-78 Alkaline Phosphatase 54 U/L Normal 45-117 Bilirubin,Total 0.6 mg/dL Normal 0.2-1.0 Bilirubin,Direct 0.3 mg/dL High 0.0-0.2 Total Protein 5.6 GM/DL Low 6.4-8.2 Albumin 3.1 GM/DL Low 3.2-5.2 Albumin/Globulin Ratio 1.2 Normal 1.2-2.2 Basic Metabolic Profile 01/23/2020 [place] [address] [phone] Glucose, Fasting 149 mg/dL High 70-100 Blood Urea Nitrogen 24 mg/dL High 7-18 Creatinine For GFR 1.61 mg/dL High 0.55-1.30 Glomerular Filtration Rate 32.9 Low >39 6 Sodium Level 139 mEq/L Normal 136-145 Potassium Serum 3.5 mEq/L Normal 3.5-5.1 7 Chloride Level 97 mEq/L Low 98-107 Carbon Dioxide Level 35 mEq/L High 21-32 Anion Gap 7 mEq/L Low 8-16 Calcium Level 9.2 mg/dL Normal 8.8-10.2 Laboratory test finding 01/23/2020 [place] [address] [phone] NT-Pro BNP 519 pg/mL High <450 Comprehensive Metabolic Profil 01/19/2020 [facility] [phone] Glucose, Fasting 139 mg/dL High 70-100 Blood [...] Ratio 1.4 Normal 1.2-2.2 Hemoglobin A1c 01/19/2020 [facility] nter [phone] Hemoglobin A1c 6.5 % Normal 9 Estimated Average Glucose 140 mg/dL High 60-110 Istat Chem8+ Panel 12/02/2019 [place] [address] [phone] iSTAT HCT 31.0 % Low 38.0-51.0 iSTAT Glucose 116 mg/dL High 70-105 iSTAT Sodium 140 mEq/L Normal 136-145 iSTAT Potassium 3.8 mEq/L Normal 3.5-5.1 iSTAT CA++ 4.8 mg/dL Normal 4.5-5.3 iSTAT Chloride 99 mEq/L Normal 98-109 iSTAT Co2 28.0 MM/L High 23.0-27.0 iSTAT BUN 17 mg/dL Normal 8-26 iSTAT Creatinine 1.1 mg/dL Normal 0.6-1.3 Laboratory test finding 12/02/2019 [place] [address] [phone] iSTAT Troponin 0.00 NG/ML Normal 0.00-0.08 Laboratory test finding 12/02/2019 [place] [address] [phone] NT-Pro BNP 377 pg/mL Normal <450 Phenobarbital Level 2.1 UG/ML Low 15.0-40.0 Thyroid Stimulating Hormone 1.970 uIU/ML Normal 0.358-3.740 Lactic Acid Sepsis Protocol 1.4 mmol/L Normal 0.4-2.0 10 Liver Profile 12/02/2019 [place] [address] [phone] Ast/Sgot 7 U/L Normal 7-37 Alt/SGPT 11 U/L Low 12-78 Alkaline Phosphatase 59 U/L Normal 45-117 Bilirubin,Total 0.7 mg/dL Normal 0.2-1.0 Bilirubin,Direct 0.3 mg/dL High 0.0-0.2 Total Protein 5.6 GM/DL Low 6.4-8.2 Albumin 3.2 GM/DL Normal 3.2-5.2 Albumin/Globulin Ratio 1.3 Normal 1.2-2.2 Prothrombin Time/Inr 12/02/[address] [place] [address] [phone] Prothrombin Time 19.4 seconds High 12.5-14.3 Inr 1.60 Normal 11 CBC With Differential 12/02/2019 Patient Service Ce nter [facility] [place] [address] [phone] White Blood Count 8.8 10 Normal 4.0-10.0 [...] 36.0-66.0 Lymph % 10.9 % Low 24.0-44.0 [place] % 7.1 % High 0.0-5.0 Eos % 1.9 % Normal 0.0-3.0 Baso % 0.5 % Normal 0.0-1.0 Immature Granulocyte % 0.6 % Normal 0-3.0 Nucleated Red Blood Cell % 0.0 % Normal 0-0 Neutrophils # 6.9 10 Normal 1.5-8.5 Lymph # 1.0 10 Low 1.5-5.0 [place] # 0.6 10 Normal 0.0-0.8 Eos # 0.2 10 Normal 0.0-0.5 Baso # 0.0 10 Normal 0.0-0.2 Venous Blood Gas 12/02/2019 Patient Service [facility] [place] [address] [phone] Venous PH 7.482 units High 7.330-7.430 Venous Partial Pressure Co2 37.5 mmHg Low 38.0-50.0 Venous Partial Pressure O2 135.7 mmHg High 30.0-50.0 Venous Total Co2 28.6 mEq/L High 24.0-28.0 Venous Hco3 27.4 mEq/L High 23.0-27.0 Venous Base Excess 3.9 High -2.0-2.0 Venous Standard Hco3 28.0 mEq/L Normal Venous O2 Saturation 98.9 % High 60.0-80.0 Laboratory test finding 12/02/2019 [facility] [place], [place] [id number] [phone] Sars Covid-19 Amplification NEGATIVE Normal Nega tive 12 Laboratory test finding 11/24/2019 [place] [address] [phone] NT-Pro BNP 244 pg/mL Normal <450 Thyroid Stimulating Hormone 2.460 uIU/ML Normal 0.358-3.740 C Reactive Protein Quantitativ 0.77 mg/dL High 0.00-0.30 Basic Metabolic Profile 11/24/2019 [place] [address] [phone] Glucose, Fasting 139 mg/dL High 70-100 Blood [...] 8-16 Calcium Level 9.2 mg/dL Normal 8.8-10.2 Liver Profile 11/24/2019 [place] [address] [phone] Ast/Sgot 7 U/L Normal 7-37 Alt/SGPT 12 U/L Normal 12-78 Alkaline Phosphatase 56 U/L Normal 45-117 Bilirubin,Total 0.9 mg/dL Normal 0.2-1.0 Bilirubin,Direct 0.3 mg/dL High 0.0-0.2 Total Protein 5.5 GM/DL Low 6.4-8.2 Albumin 3.2 GM/DL Normal 3.2-5.2 Albumin/Globulin Ratio 1.4 Normal 1.2-2.2 Cardiac Marker Panel 11/24/[address] [place] [address] [phone] CPK Creatine Phosphokinase 26 U/L Normal 26-19 2 CK-MB Value Mass 1.2 NG/ML Normal <3.6 MB/CK Relative Index 4.62 High < Or =4 14 Troponin I < 0.02 NG/ML Normal < 0.10 15 Laboratory test finding 11/24/2019 [place] [address] [phone] Erythrocyte Sedimentation Rate 11 mm/hr Normal 0 -30 CBC With Differential 11/24/2019 [place] [address] [phone] White Blood Count 8.2 10 Normal 4.0-10.0 [...] 36.0-66.0 Lymph % 10.7 % Low 24.0-44.0 [place] % 5.6 % High 0.0-5.0 Eos % 2.1 % Normal 0.0-3.0 Baso % 0.5 % Normal 0.0-1.0 Immature Granulocyte % 0.6 % Normal 0-3.0 Nucleated Red Blood Cell % 0.0 % Normal 0-0 Neutrophils # 6.6 10 Normal 1.5-8.5 Lymph # 0.9 10 Low 1.5-5.0 [place] # 0.5 10 Normal 0.0-0.8 Eos # 0.2 10 Normal 0.0-0.5 Baso # 0.0 10 Normal 0.0-0.2 Laboratory test finding 10/10/2019 [place] [address] [phone] NT-Pro BNP 264 pg/mL Normal <450 Thyroxine (T4) 8.4 g/dL Normal 4.5-12.0 Thyroid Stimulating Hormone 1.340 uIU/ML Normal 0.358-3.740 Basic Metabolic Profile 10/10/2019 [place] [address] [phone] Glucose, Fasting 108 mg/dL High 70-100 Blood Urea Nitrogen 17 mg/dL Normal 7-18 Creatinine For GFR 1.25 mg/dL Normal 0.55-1.30 Glomerular Filtration Rate 44.2 Normal >39 1 6 Sodium Level 141 mEq/L Normal 136-145 Potassium Serum 3.9 mEq/L Normal 3.5-5.1 Chloride Level 106 mEq/L Normal 98-107 Carbon Dioxide Level 29 mEq/L Normal 21-32 Anion Gap 6 mEq/L Low 8-16 Calcium Level 9.6 mg/dL Normal 8.8-10.2 Liver Profile 10/10/2019 [place] [address] [phone] Ast/Sgot 11 U/L Normal 7-37 Alt/SGPT 10 U/L Low 12-78 Alkaline Phosphatase 56 U/L Normal 45-117 Bilirubin,Total 0.6 mg/dL Normal 0.2-1.0 Bilirubin,Direct 0.2 mg/dL Normal 0.0-0.2 Total Protein 5.7 GM/DL Low 6.4-8.2 Albumin 3.4 GM/DL Normal 3.2-5.2 Albumin/Globulin Ratio 1.5 Normal 1.2-2.2 Cardiac Marker Panel 10/10/[address] [facility] [place] [address] [phone] CPK Creatine Phosphokinase 25 U/L Low 26-19 2 CK-MB Value Mass 1.0 NG/ML Normal <3.6 MB/CK Relative Index 4.00 Normal < Or =4 17 Troponin I < 0.02 NG/ML Normal < 0.10 18 Laboratory test finding 10/10/2019 [place] [address] [phone] Lactic Acid Sepsis Protocol 2.0 mmol/L Normal 0.4- 2.0 19 CBC With Differential 10/10/2019 Patient Service Ce nter [facility] [place] [address] [phone] White Blood Count 9.0 10 Normal 4.0-10.0 [...] 36.0-66.0 Lymph % 13.0 % Low 24.0-44.0 [place] % 5.9 % High 0.0-5.0 Eos % 0.2 % Normal 0.0-3.0 Baso % 0.2 % Normal 0.0-1.0 Immature Granulocyte % 0.7 % Normal 0-3.0 Nucleated Red Blood Cell % 0.0 % Normal 0-0 Neutrophils # 7.2 10 Normal 1.5-8.5 Lymph # 1.2 10 Low 1.5-5.0 [place] # 0.5 10 Normal 0.0-0.8 Eos # 0.0 10 Normal 0.0-0.5 Baso # 0.0 10 Normal 0.0-0.2 Venous Blood Gas 10/10/2019 Patient Service Cent er [facility] [place] [address] [phone] Venous PH 7.380 units Normal 7.330-7.430 Venous Partial Pressure Co2 42.1 mmHg Normal 38.0-50.0 Venous Partial Pressure O2 66.4 mmHg High 30.0-50.0 Venous Total Co2 24.3 mEq/L Normal 24.0-28.0 Venous Hco3 24.3 mEq/L Normal 23.0-27.0 Venous Base Excess -0.8 Normal -2.0-2.0 Venous Standard Hco3 23.7 mEq/L Normal Venous O2 Saturation 91.3 % High 60.0-80.0 Hemoglobin A1c 08/29/2019 [facility] [phone] Hemoglobin A1c 8.1 % Normal 20 Estimated Average Glucose 186 mg/dL High 60-110 Lipid Panel 08/29/2019 [facility] [phone] Triglycerides Level 75 mg/dL Normal <150 Cholesterol Level 121 mg/dL Normal <200 HDL Cholesterol 50 mg/dL Normal >40 LDL Cholesterol 56 mg/dL Normal <100 Non-HDL-C 71 mg/dL Normal Cholesterol Risk Ratio 2.420 Normal <5 Comprehensive Metabolic Profil 08/29/2019 [facility] [phone] Glucose, Fasting 132 mg/dL High 70-100 Blood Urea Nitrogen 12 mg/dL Normal 7-18 Creatinine For GFR 1.14 mg/dL Normal 0.55-1.30 Glomerular Filtration Rate 49.2 Normal >39 2 1 Sodium Level 141 mEq/L Normal 136-145 Potassium [...] 1.4 Normal 1.2-2.2 Laboratory test finding 08/29/2019 [facility] [phone] Magnesium Level 2.0 mg/dL Normal 1.8-2.4 Basic Metabolic Profile 08/23/2019 Patient Service [place], [place] [id number] [phone] Glucose, Fasting 163 mg/dL High 70-100 Blood [...] 8.8-10.2 Complete Blood Count 07/27/2019 Patient Service [place], [place] [address] [phone] White Blood Count 10.9 10 High 4.0-10.0 [...] 0-0 Laboratory test finding 07/27/2019 Patient Service [place], [place] [id number] [phone] Erythrocyte Sedimentation Rate 23 mm/hr Normal 0 -30 Basic Metabolic Profile 07/27/2019 Patient Service [place], [place] [address] [phone] Glucose, Fasting 159 mg/dL High 70-100 Blood Urea Nitrogen 15 mg/dL Normal 7-18 Creatinine For GFR 0.98 mg/dL Normal 0.55-1.30 Glomerular Filtration Rate 58.6 Normal >39 2 3 Sodium Level 140 mEq/L Normal 136-145 Potassium Serum 4.2 mEq/L Normal 3.5-5.1 Chloride Level 104 mEq/L Normal 98-107 Carbon Dioxide Level 30 mEq/L Normal 21-32 Anion Gap 6 mEq/L Low 8-16 Calcium Level 8.4 mg/dL Low 8.8-10.2 Laboratory test finding 07/27/2019 [place] [address] [phone] Vancomycin Level Trough 11.9 UG/ML Normal 10.0-20. 0 C Reactive Protein Quantitativ 1.74 mg/dL High 0.00-0.30 1 DIAGNOSIS CRITERIA MMB ng/ml Relative Index (RI) NON-AMI < or = 5 N/A GOYAL ZONE > 5 < or = 4 AMI > 5 > 4 2 Troponin I Reference Interva l for [employer] LOCI: 99th Percentile= 0.00-0.045 ng/ml Risk Stratification: <= 0.10 ng/ml Decreased Risk for Adverse Clinical Events. 0.10-1.50 ng/ml Increased Risk for Adv erse Clinical Events. Evaluation of additional criterion and/or repeat testing in 2-6 hours is suggested to rule out myocardial damage. >= 1.50 ng/ml Indicative of Myocardial Injury. 3 THERAPUTIC HUMAN INR VALUES INDICATIONS NORMAL RANGES PROPHYLAXIS/TREATMENT OF: VENOUS THROMBOSIS 2.0-3.0 PULMONARY EMBOLISM 2.0-3.0 PREVENTION OF SYSTEMIC EMBOLISM FROM: TISSUE HEART VALVES 2.0-3.0 ACUTE MYOCARDIAL INFARCTION 2.0-3.0 VALVULAR HEART DISEASE 2.0-3.0 ATRIAL FIBRILLATION 2.0-3.0 MECHANICAL VALVES(HIGH RISK) 2.5-3.5 RECURRENT MYOCARDIAL INFARCTION 2.5-3.5 4 DIAGNOSIS CRITERIA MMB ng/ml Relative Index (RI) NON-AMI < or = 5 N/A GOYAL ZONE > 5 < or = 4 AMI > 5 > 4 5 Troponin I Reference Interva l for [employer] LOCI: 99th Percentile= 0.00-0.045 ng/ml Risk Stratification: <= 0.10 ng/ml Decreased Risk for Adverse Clinical Events. 0.10-1.50 ng/ml Increased Risk for Adv erse Clinical Events. Evaluation of additional criterion and/or repeat testing in 2-6 hours is suggested to rule out myocardial damage. >= 1.50 ng/ml Indicative of Myocardial Injury. 6 Units are mL/min/1.73 m2 Chronic Kidney Disease Staging per NKF: Stage I & II GFR >=60 Normal to Mildly Decreased Stage III GFR 30-59 Moderately Decreased Stage IV GFR 15-29 Severely Decreased Stage V GFR <15 Very Little GFR Left ESRD GFR <15 on CLEAN UP HELPER [place]ANQUET 7 Testing was performed on an icteric specimen. This specimen has an elevated potassium level but there is NO visible hemolysis noted. 8 Units are mL/min/1.73 m2 Chronic Kidney Disease Staging per NKF: Stage I & II GFR >=60 Normal to Mildly Decreased Stage III GFR 30-59 Moderately Decreased Stage IV GFR 15-29 Severely Decreased Stage V GFR <15 Very Little GFR Left ESRD GFR <15 on CLEAN UP HELPER [place]QUET 9 REFERENCE RANGES: <=5.6% NORMAL 5.7-6.4% SUGGESTS IMPAIRED GLUCOSE META BOLISM/PREDIABETIC >= 6.5% ABNORMAL 10 Y/N query for Sepsis Lactate Rule: Y 11 THERAPUTIC HUMAN INR VALUES INDICATIONS NORMAL RANGES PROPHYLAXIS/TREATMENT OF: VENOUS THROMBOSIS 2.0-3.0 PULMONARY EMBOLISM 2.0-3.0 PREVENTION OF SYSTEMIC EMBOLISM FROM: TISSUE HEART VALVES 2.0-3.0 ACUTE MYOCARDIAL INFARCTION 2.0-3.0 VALVULAR HEART DISEASE 2.0-3.0 ATRIAL FIBRILLATION 2.0-3.0 MECHANICAL VALVES(HIGH RISK) 2.5-3.5 RECURRENT MYOCARDIAL INFARCTION 2.5-3.5 12 A false negative result may occur if [...] pathogens. DISCLAIMER: Testing was performed using the [facility] SARS-CoV-2 test. This test was developed and its performance characteristics determined by [facility]. This test has not been FDA cleared [...] the authorization is terminated or revoked sooner. 13 Units are mL/min/1.73 m2 Chronic Kidney Disease Staging per NKF: Stage I & II GFR >=60 Normal to Mildly Decreased Stage III GFR 30-59 Moderately Decreased Stage IV GFR 15-29 Severely Decreased Stage V GFR <15 Very Little GFR Left ESRD GFR <15 on [employer] UP [employer]QUET 14 DIAGNOSIS CRITERIA MMB ng/ml Relative Index (RI) NON-AMI < or = 5 N/A GOYAL ZONE > 5 < or = 4 AMI > 5 > 4 15 Troponin I Reference Interva l for [employer] LOCI: 99th Percentile= 0.00-0.045 ng/ml Risk Stratification: <= 0.10 ng/ml Decreased Risk for Adverse Clinical Events. 0.10-1.50 ng/ml Increased Risk for Adv erse Clinical Events. Evaluation of additional criterion and/or repeat testing in 2-6 hours is suggested to rule out myocardial damage. >= 1.50 ng/ml Indicative of Myocardial Injury. 16 Units are mL/min/1.73 m2 Chronic Kidney Disease Staging per NKF: Stage I & II GFR >=60 Normal to Mildly Decreased Stage III GFR 30-59 Moderately Decreased Stage IV GFR 15-29 Severely Decreased Stage V GFR <15 Very Little GFR Left ESRD GFR <15 on [employer] UP [employer]ET 17 DIAGNOSIS CRITERIA MMB ng/ml Relative Index (RI) NON-AMI < or = 5 N/A GOYAL ZONE > 5 < or = 4 AMI > 5 > 4 18 Troponin I Reference Interva l for [employer] LOCI: 99th Percentile= 0.00-0.045 ng/ml Risk Stratification: <= 0.10 ng/ml Decreased Risk for Adverse Clinical Events. 0.10-1.50 ng/ml Increased Risk for Adv erse Clinical Events. Evaluation of additional criterion and/or repeat testing in 2-6 hours is suggested to rule out myocardial damage. >= 1.50 ng/ml Indicative of Myocardial Injury. 19 Y/N query for Sepsis Lactate Rule: Y 20 REFERENCE RANGES: 4.5-5.6% NORMAL 5.7-6.4% SUGGESTS IMPAIRED GLUCOSE META BOLISM >= 6.5% ABNORMAL 21 Units are mL/min/1.73 m2 Chronic Kidney Disease Staging per NKF: Stage I & II GFR >=60 Normal to Mildly Decreased Stage III GFR 30-59 Moderately Decreased Stage IV GFR 15-29 Severely Decreased Stage V GFR <15 Very Little GFR Left ESRD GFR <15 on CLE[employer] UP [employer]PER [employer]ET 22 Units are mL/min/1.73 m2 Chronic Kidney Disease Staging per NKF: Stage I & II GFR >=60 Normal to Mildly Decreased Stage III GFR 30-59 Moderately Decreased Stage IV GFR 15-29 Severely Decreased Stage V GFR <15 Very Little GFR Left ESRD GFR <15 on CLE[employer] UP HELPER [employer]ET 23 Units are mL/min/1.73 m2 Chronic Kidney Disease Staging per NKF: Stage I & II GFR >=60 Normal to Mildly Decreased Stage III GFR 30-59 Moderately Decreased Stage IV GFR 15-29 Severely Decreased Stage V GFR <15 Very Little GFR Left ESRD GFR <15 on CLEAN UP [employer] Procedures Date Code Description Status 03/25/2018 [id number] Diabetic Foot Exam Completed 09/12/2017 [id number] Mammogram Completed 05/09/2014 [id number] Mammogram Completed 04/27/2014 [id number] Mammogram Completed 12/10/2010 [id number] Mammogram Completed Medical Devices Description No Information Available Encounters Type Date Location Provider Dx Diagnosis Office Visit 01/19/2020 2:00p Main Office 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 FNP Z00.0 0 Encntr for general adult medical exam w/o abnormal findings 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 I48.91 Unspecified atrial fibrillat ion I70.212 [facility] [place] arteries of ex trm w martinnm damaris, left leg E11.69 Type 2 diabetes mellitus wit h other specified complication J44.9 Chronic obstructive pulmonar y disease, unspecified Office Visit 01/11/2020 3:45p Main Office 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 FNP 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 I48.91 Unspecified atrial fibrillat ion I70.212 [facility] [place] arteries of ex trm w martinmt damaris, left leg E11.69 Type 2 diabetes mellitus wit h other specified complication J44.1 Chronic obstructive pulmonar y disease w (acute) exacerbation Office Visit 12/16/2019 1:15p Main Office 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 FNP 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 I48.91 Unspecified atrial fibrillat ion I70.212 [facility] [place] arteries of ex trm w intrmt damaris, [...] Visit 10/20/2019 1:45p Main Office 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 FNP 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 E11.69 Type 2 diabetes mellitus wit h other specified complication I48.91 Unspecified atrial fibrillat ion E87.6 Hypokalemia E83.42 Hypomagnesemia R60.0 Localized edema I70.212 [facility] [place] arteries of ex trm w intrmt damaris, left leg J44.9 Chronic obstructive pulmonar y disease, unspecified Office Visit 09/20/2019 1:00p Main Office 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, REFUGE MANAGER I50.4 2 Chronic combined systolic and diastolic [...] diastolic (congestive) heart failure 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 FNP 01/19/2020 I48.91 Unspecified atrial fibrillation Nuzhat Vega M.D. 01/19/2020 I48.91 Unspecified atrial fibrillation 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 FNP 01/19/2020 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, left leg Nuzhat Vega M.D. 01/19/2020 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, left leg Pleskach Criselda, REFUGE MANAGER 01/19/2020 E11.69 Type 2 diabetes mellitus with ot her specified complication Nuzhat eVga M.D. 01/19/2020 E11.69 Type 2 diabetes mellitus with ot her specified complication Pleskach, Criselda, REFUGE MANAGER 01/19/2020 J44.9 Chronic obstructive pulmonary di sease, unspecified Nuzhat Vega M.D. 01/19/2020 J44.9 Chronic obstructive pulmonary di sease, unspecified Pleskach, Criselda, REFUGE MANAGER 01/11/2020 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 Pleskach, Criselda, REFUGE MANAGER 01/11/2020 I48.91 Unspecified atrial fibrillation Pleskach, Criselda, REFUGE MANAGER 01/11/2020 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, left leg Pleskach, Criselda, REFUGE MANAGER 01/11/2020 E11.69 Type 2 diabetes mellitus with ot her specified complication Pleskach, Criselda, REFUGE MANAGER 01/11/2020 J44.1 Chronic obstructive pulmonary disease with (acute) exacerbation Pleskach, Criselda, REFUGE MANAGER 01/10/2020 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 Pleskach, Criselda, REFUGE MANAGER 01/10/2020 I48.91 Unspecified atrial fibrillation Pleskach, Criselda, REFUGE MANAGER 01/10/2020 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, left leg Pleskach, Criselda, REFUGE MANAGER 01/10/2020 E11.69 Type 2 diabetes mellitus with ot her specified complication Pleskach, Criselda, REFUGE MANAGER 01/10/2020 J44.9 Chronic obstructive pulmonary di sease, unspecified Pleskach, Criselda, REFUGE MANAGER 12/16/2019 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 Pleskach, Criselda, REFUGE MANAGER 12/16/2019 I48.91 Unspecified atrial fibrillation Pleskach, Criselda, REFUGE MANAGER 12/16/2019 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, left leg Pleskach Criselda, REFUGE MANAGER 12/16/2019 E11.69 Type 2 diabetes mellitus with ot her specified complication Pleskach, Criselda, REFUGE MANAGER 12/16/2019 J44.1 Chronic obstructive pulmonary disease with (acute) exacerbation Pleskach, Criselda, REFUGE MANAGER 12/03/2019 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 Pleskach, Criselda, REFUGE MANAGER 12/03/2019 I48.91 Unspecified atrial fibrillation Pleskach, Criselda, REFUGE MANAGER 12/03/2019 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, left leg Pleskach, Criselda, REFUGE MANAGER 12/03/2019 E11.69 Type 2 diabetes mellitus with ot her specified complication Pleskach, Criselda, REFUGE MANAGER 12/03/2019 J44.1 Chronic obstructive pulmonary disease with (acute) exacerbation Pleskach, Criselda, REFUGE MANAGER 12/02/2019 I50.23 Acute on chronic systolic (conge stive) heart failure Pleskach Criselda, REFUGE MANAGER 11/26/2019 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 Pleskach, Criselda, REFUGE MANAGER 11/26/2019 I48.91 Unspecified atrial fibrillation Pleskach, Criselda, REFUGE MANAGER 11/26/2019 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, left leg Pleskach Criselda, REFUGE MANAGER 11/26/2019 E11.69 Type 2 diabetes mellitus with ot her specified complication Pleskach, Criselda, REFUGE MANAGER 11/24/2019 L03.116 Cellulitis of left lower limb Pl Criselda connor, REFUGE MANAGER 11/24/2019 R06.00 Dyspnea, unspecified PleskachLeslyly, REFUGE MANAGER 11/09/2019 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 Pleskach, Criselda, REFUGE MANAGER 11/09/2019 E11.69 Type 2 diabetes mellitus with ot her specified complication Pleskach, Criselda, REFUGE MANAGER 11/09/2019 I48.91 Unspecified atrial fibrillation Pleskach Criselda, REFUGE MANAGER 11/09/2019 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, left leg PleskCriselda springer, REFUGE MANAGER 11/09/2019 J44.1 Chronic obstructive pulmonary disease with (acute) exacerbation Pleskach Criselda, REFUGE MANAGER 10/20/2019 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 Pleskach Criselda, REFUGE MANAGER 10/20/2019 E11.69 Type 2 diabetes mellitus with ot her specified complication Pleskach, Criselda, REFUGE MANAGER 10/20/2019 I48.91 Unspecified atrial fibrillation Pleskach Criselda, REFUGE MANAGER 10/20/2019 E87.6 Hypokalemia Pleskach Criselda, REFUGE MANAGER 10/20/2019 E83.42 Hypomagnesemia Pleskach Criselda, REFUGE MANAGER 10/20/2019 R60.0 Localized edema Pleskach Criselda, REFUGE MANAGER 10/20/2019 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, left leg Pleskach Criselda, REFUGE MANAGER 10/20/2019 J44.9 Chronic obstructive pulmonary di sease, unspecified Pleskach Criselda, REFUGE MANAGER 10/18/2019 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 10/18/2019 E11.69 Type 2 diabetes mellitus with ot her specified complication Nuzhat Vega M.D. 10/18/2019 I48.91 Unspecified atrial fibrillation Nuzhat Vega M.D. 10/18/2019 E87.6 Hypokalemia Nuzhat Vega M.D. 10/18/2019 E83.42 Hypomagnesemia Nuzhat Vega M.D. 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 Pleskach Criselda, REFUGE MANAGER 09/20/2019 E11.69 Type 2 diabetes mellitus with ot her specified complication Pleskach, Criselda, REFUGE MANAGER 09/20/2019 E87.6 Hypokalemia Pleskach, Criselda, REFUGE MANAGER 09/20/2019 E83.42 Hypomagnesemia Pleskach, Criselda, REFUGE MANAGER 09/20/2019 J44.1 Chronic obstructive pulmonary disease with (acute) exacerbation Pleskach Criselda, REFUGE MANAGER 09/20/2019 E66.01 Morbid (severe) obesity due to e xcess calories Pleskach, Criselda, REFUGE MANAGER 09/20/2019 I48.91 Unspecified atrial fibrillation Pleskach Criselda, REFUGE MANAGER 09/08/2019 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 09/08/2019 E83.42 Hypomagnesemia Nuzhat Vega M.D. 09/08/2019 E87.6 Hypokalemia Nuzhat Vega M.D. 09/08/2019 J44.1 Chronic obstructive pulmonary disease with (acute) exacerbation Nuzhat Vega M.D. 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 Pleskach Criselda, REFUGE MANAGER 09/06/2019 E87.6 Hypokalemia Pleskach, Criselda, REFUGE MANAGER 09/06/2019 E83.42 Hypomagnesemia Pleskach, Criselda, REFUGE MANAGER 09/06/2019 J44.1 Chronic obstructive pulmonary disease with (acute) exacerbation Pleskach, Criselda, REFUGE MANAGER 09/06/2019 E66.01 Morbid (severe) obesity due to e xcess calories Pleskach, Criselda, REFUGE MANAGER 09/06/2019 I48.91 Unspecified atrial fibrillation 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, REFUGE MANAGER Plan of Treatment Future Appointment(s):* 01/28/2020 12:15 pm - 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 FNP at Main Office * 04/18/2020 1:00 pm - 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 FNP at Main Office Functional Status Functional Condition Comment Date Status Bifocal glasses Active Independent with all ADL's Activ e Complete lower and upper and lower dentures Active Independent with all IADL's Acti ve Mental Status Mental Condition Comment Date Status None Active Referrals Refer to Reason for Referral Status Appt Date [facility] referring for PAD, LLE redness and swelling and pain Closed 12/07/2019 [address] [facility], [address] [place] [address] [phone] [facility] referring for PAD, LLE redness and swelling and pain Patient Declined 12/21/2019 [address] [facility], [address] [place], [place] [id number] [phone]
--- OUTSIDE RECORDS SUMMARY | 2020-03-07 19:47 | CCD | Continuity of Care Document ---
Author Author Sana VEGA M.D. Organization Unknown Address [address] [place] [address] Phone [phone] Care Team Providers Care Publications Inspector Name Role Phone Dhaval Manuel MD AUTM [phone] Nuzhat Vega MD AUTM [phone] Roberto Wallace MD AUTM [phone] [facility] - Surgery AUTM [phone] Problems Active Problems Provider Date Essential hypertension [...] 2 diabetes mellitus in obese Sharon Criselda STUDIO ASSOCIATE Onset : 10/20/2019 Chronic obstructive pulmonary disease [...] lower extremity edema 2units R60.0 Pleskach, Criselda, STUDIO ASSOCIATE 10/20/2019 Bacitracin (External) 500Unit/GM O intment apply [...] once a day 90tabs F32.9 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 STUDIO ASSOCIATE 07/06/2019 Prednisone 5mg Tablets 1 tablet by mouth once a day Unknown 06/29/2019 Alcohol Prep 70% Pads use twice daily as directed before testing bs 1Box 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 FNP 12/03/2018 Fluticasone Propionate 50mcg/Act Suspension one spray each side of nose daily 32gm J30.9 Carmelaac Criselda kaminski FNP 10/14/2018 Ipratropium Cammal/Albuterol Sulfate 0.5-2.5(3)mg/3ML Solution use 1 vial via nebulizer 4 times daily a s needed for coughing and wheezing 90ml 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 FNP 10/14 Neosporin Original 3.5-400-5000 Oi ntment apply to rash twice a day as needed 28.300gm R21 Emerson Herrera, [facility] 12/09/2017 Freestyle Lite Lancets Misc use to check fasting blood glusose twice daily, dx: e11.9 200units Criselda Ruelas FNP 04/07/2017 Freestyle Lite Test Strips use to check blood glucose 2 times a day, e11.9 200units Vivian Herrera, STUDIO ASSOCIATE 04/07/2017 Freestyle Lite Blood Glucose Monitoring System [...] for wheezing and coughing 3units 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, [facility] 04/12/2014 Lumigan 0.01% Solution one gtt. each eye at at bedtime Unknown Diltiazem HCL 60mg Tablets 1 tab by mouth once a at bedtime 90tabs 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, STUDIO ASSOCIATE 0 Advair Diskus 500-50mcg/Dose Aeros ol inhale one puff by mouth every day 60units Vivian Herrera, [facility] Xarelto 20mg Tablets 1 by mouth every day Jason Cosby [facility] History Medications Torsemide 10mg Tablets take [...] CPT Code Status Date Vaccine Lot # [id number] Given 03/25/2018 Pneumococcal Vaccine [id number] 10125 Given 12/09/2017 Influenza Virus Vaccine, Quadrivalent,age 3 and up,multidose vial [id number] Q2038 Given 12/04/2016 Influenza Vaccine (Fluzone)( medicare) [id number] Q2038 Given 11/14/2015 Influenza Vaccine (Fluzone)( medicare) [id number] 89232 Given 10/12/2015 Prevnar 13 For Adults 09916 Given 11/17/2013 Influenza Vaccination 24009 Given 11/18/2007 Influenza Vaccination [id number] 11263 Given 12/12/2006 Influenza Vaccination [id number] Vital Signs Date Vital Result Comment 01/19/2020 2:18pm BP Systolic 108 mmHg BP Diastolic 77 mmHg Heart Rate 93 /min Body Temperature 97.3 F Respiratory Rate 22 /min Height 61.5 inches 5'1.50" Weight 252.50 lb O2 % BldC Oximetry 94 % Peak Expiratory Flow Rate 292 Estimated Peak Flow Rate [place] Body Weight 105 lb BMI (Body Mass Index) 46.9 kg/m2 01/11/2020 3:53pm BP Systolic 120 mmHg BP Diastolic 61 mmHg Heart Rate 100 /min Body Temperature 96.9 F Respiratory Rate 26 /min Height 61.5 inches 5'1.50" Weight 253.38 lb O2 % BldC Oximetry 95 % Peak Expiratory Flow Rate 292 Estimated Peak Flow Rate [place] Body Weight 105 lb BMI (Body Mass Index) 47.1 kg/m2 Results Test Acquired Date Facility Test Result H/L Range Note Cardiac Marker Panel 01/24/2020 [place] [address] [phone] CPK Creatine Phosphokinase 27 U/L Normal 26-19 2 CK-MB Value Mass 1.2 NG/ML Normal <3.6 MB/CK Relative Index 4.44 High < Or =4 1 Troponin I < 0.02 NG/ML Normal < 0.10 2 CBC With Differential 01/23/2020 [place] [address] [phone] White Blood Count 10.4 10 High 4.0-10.0 [...] 36.0-66.0 Lymph % 8.0 % Low 24.0-44.0 [place] % 5.0 % Normal 0.0-5.0 Eos % 0.4 % Normal 0.0-3.0 Baso % 0.2 % Normal 0.0-1.0 Immature Granulocyte % 0.8 % Normal 0-3.0 Nucleated Red Blood Cell % 0.0 % Normal 0-0 Neutrophils # 8.9 10 High 1.5-8.5 Lymph # 0.8 10 Low 1.5-5.0 [place] # 0.5 10 Normal 0.0-0.8 Eos # 0.0 10 Normal 0.0-0.5 Baso # 0.0 10 Normal 0.0-0.2 Prothrombin Time/Inr 01/23/2020 [place] [address] [phone] Prothrombin Time 26.3 seconds High 12.5-14.3 Inr 2.35 Normal 3 Cardiac Marker Panel 01/23/2020 [place] [address] [phone] CPK Creatine Phosphokinase 43 U/L Normal 26-19 2 CK-MB Value Mass < 1.0 NG/ML Normal <3.6 MB/CK Relative Index 2.33 Normal < Or =4 4 Troponin I < 0.02 NG/ML Normal < 0.10 5 Liver Profile 01/23/2020 Patient Service [place], [place] [address] [phone] Ast/Sgot 7 U/L Normal 7-37 Alt/SGPT 9 U/L Low 12-78 Alkaline Phosphatase 54 U/L Normal 45-117 Bilirubin,Total 0.6 mg/dL Normal 0.2-1.0 Bilirubin,Direct 0.3 mg/dL High 0.0-0.2 Total Protein 5.6 GM/DL Low 6.4-8.2 Albumin 3.1 GM/DL Low 3.2-5.2 Albumin/Globulin Ratio 1.2 Normal 1.2-2.2 Basic Metabolic Profile 01/23/2020 [place] [address] [phone] Glucose, Fasting 149 mg/dL High 70-100 Blood [...] Laboratory test finding 01/23/2020 [facility] [place] [address] [phone] NT-Pro BNP 519 pg/mL High <450 Comprehensive Metabolic Profil 01/19/2020 [facility] [phone] Glucose, Fasting 139 mg/dL High 70-100 Blood [...] Ratio 1.4 Normal 1.2-2.2 Hemoglobin A1c 01/19/2020 [facility] nter [phone] Hemoglobin A1c 6.5 % Normal 9 Estimated Average Glucose 140 mg/dL High 60-110 Istat Chem8+ Panel 12/02/2019 [place] [id number] [phone] iSTAT HCT 31.0 % Low 38.0-51.0 iSTAT Glucose 116 mg/dL High 70-105 iSTAT Sodium 140 mEq/L Normal 136-145 iSTAT Potassium 3.8 mEq/L Normal 3.5-5.1 iSTAT CA++ 4.8 mg/dL Normal 4.5-5.3 iSTAT Chloride 99 mEq/L Normal 98-109 iSTAT Co2 28.0 MM/L High 23.0-27.0 iSTAT BUN 17 mg/dL Normal 8-26 iSTAT Creatinine 1.1 mg/dL Normal 0.6-1.3 Laboratory test finding 12/02/2019 [place] [address] [phone] iSTAT Troponin 0.00 NG/ML Normal 0.00-0.08 Laboratory test finding 12/02/2019 [place] [address] [phone] NT-Pro BNP 377 pg/mL Normal <450 Phenobarbital Level 2.1 UG/ML Low 15.0-40.0 Thyroid Stimulating Hormone 1.970 uIU/ML Normal 0.358-3.740 Lactic Acid Sepsis Protocol 1.4 mmol/L Normal 0.4-2.0 10 Liver Profile 12/02/2019 [place] [id number] [phone] Ast/Sgot 7 U/L Normal 7-37 Alt/SGPT 11 U/L Low 12-78 Alkaline Phosphatase 59 U/L Normal 45-117 Bilirubin,Total 0.7 mg/dL Normal 0.2-1.0 Bilirubin,Direct 0.3 mg/dL High 0.0-0.2 Total Protein 5.6 GM/DL Low 6.4-8.2 Albumin 3.2 GM/DL Normal 3.2-5.2 Albumin/Globulin Ratio 1.3 Normal 1.2-2.2 Prothrombin Time/Inr 12/02/[address] [place] [address] [phone] Prothrombin Time 19.4 seconds High 12.5-14.3 Inr 1.60 Normal 11 CBC With Differential 12/02/[address] [facility] [place] [address] [phone] White Blood Count 8.8 10 Normal 4.0-10.0 [...] 36.0-66.0 Lymph % 10.9 % Low 24.0-44.0 [place] % 7.1 % High 0.0-5.0 Eos % 1.9 % Normal 0.0-3.0 Baso % 0.5 % Normal 0.0-1.0 Immature Granulocyte % 0.6 % Normal 0-3.0 Nucleated Red Blood Cell % 0.0 % Normal 0-0 Neutrophils # 6.9 10 Normal 1.5-8.5 Lymph # 1.0 10 Low 1.5-5.0 [place] # 0.6 10 Normal 0.0-0.8 Eos # 0.2 10 Normal 0.0-0.5 Baso # 0.0 10 Normal 0.0-0.2 Venous Blood Gas 12/02/[address] [facility] [place] [address] [phone] Venous PH 7.482 units High 7.330-7.430 Venous Partial Pressure Co2 37.5 mmHg Low 38.0-50.0 Venous Partial Pressure O2 135.7 mmHg High 30.0-50.0 Venous Total Co2 28.6 mEq/L High 24.0-28.0 Venous Hco3 27.4 mEq/L High 23.0-27.0 Venous Base Excess 3.9 High -2.0-2.0 Venous Standard Hco3 28.0 mEq/L Normal Venous O2 Saturation 98.9 % High 60.0-80.0 Laboratory test finding 12/02/2019 [facility] [place], [place] [id number] [phone] Sars Covid-19 Amplification NEGATIVE Normal Nega tive 12 Laboratory test finding 11/24/2019 [place] [address] [phone] NT-Pro BNP 244 pg/mL Normal <450 Thyroid Stimulating Hormone 2.460 uIU/ML Normal 0.358-3.740 C Reactive Protein Quantitativ 0.77 mg/dL High 0.00-0.30 Basic Metabolic Profile 11/24/2019 [place] [address] [phone] Glucose, Fasting 139 mg/dL High 70-100 Blood [...] Normal 8.8-10.2 Liver Profile 11/24/2019 [place] [address] [phone] Ast/Sgot 7 U/L Normal 7-37 Alt/SGPT 12 U/L Normal 12-78 Alkaline Phosphatase 56 U/L Normal 45-117 Bilirubin,Total 0.9 mg/dL Normal 0.2-1.0 Bilirubin,Direct 0.3 mg/dL High 0.0-0.2 Total Protein 5.5 GM/DL Low 6.4-8.2 Albumin 3.2 GM/DL Normal 3.2-5.2 Albumin/Globulin Ratio 1.4 Normal 1.2-2.2 Cardiac Marker Panel 11/24/[address] [place] [address] [phone] CPK Creatine Phosphokinase 26 U/L Normal 26-19 2 CK-MB Value Mass 1.2 NG/ML Normal <3.6 MB/CK Relative Index 4.62 High < Or =4 14 Troponin I < 0.02 NG/ML Normal < 0.10 15 Laboratory test finding 11/24/2019 [place] [address] [phone] Erythrocyte Sedimentation Rate 11 mm/hr Normal 0 -30 CBC With Differential 11/24/2019 [place] [address] [phone] White Blood Count 8.2 10 Normal 4.0-10.0 [...] 36.0-66.0 Lymph % 10.7 % Low 24.0-44.0 [place] % 5.6 % High 0.0-5.0 Eos % 2.1 % Normal 0.0-3.0 Baso % 0.5 % Normal 0.0-1.0 Immature Granulocyte % 0.6 % Normal 0-3.0 Nucleated Red Blood Cell % 0.0 % Normal 0-0 Neutrophils # 6.6 10 Normal 1.5-8.5 Lymph # 0.9 10 Low 1.5-5.0 [place] # 0.5 10 Normal 0.0-0.8 Eos # 0.2 10 Normal 0.0-0.5 Baso # 0.0 10 Normal 0.0-0.2 Laboratory test finding 10/10/2019 [place] [address] [phone] NT-Pro BNP 264 pg/mL Normal <450 Thyroxine (T4) 8.4 g/dL Normal 4.5-12.0 Thyroid Stimulating Hormone 1.340 uIU/ML Normal 0.358-3.740 Basic Metabolic Profile 10/10/2019 [place] [address] [phone] Glucose, Fasting 108 mg/dL High 70-100 Blood [...] Normal 8.8-10.2 Liver Profile 10/10/2019 [place] [address] [phone] Ast/Sgot 11 U/L Normal 7-37 Alt/SGPT 10 U/L Low 12-78 Alkaline Phosphatase 56 U/L Normal 45-117 Bilirubin,Total 0.6 mg/dL Normal 0.2-1.0 Bilirubin,Direct 0.2 mg/dL Normal 0.0-0.2 Total Protein 5.7 GM/DL Low 6.4-8.2 Albumin 3.4 GM/DL Normal 3.2-5.2 Albumin/Globulin Ratio 1.5 Normal 1.2-2.2 Cardiac Marker Panel 10/10/2019 Patient Service [facility] [place] [address] [phone] CPK Creatine Phosphokinase 25 U/L Low 26-19 2 CK-MB Value Mass 1.0 NG/ML Normal <3.6 MB/CK Relative Index 4.00 Normal < Or =4 17 Troponin I < 0.02 NG/ML Normal < 0.10 18 Laboratory test finding 10/10/2019 [place] [address] [phone] Lactic Acid Sepsis Protocol 2.0 mmol/L Normal 0.4- 2.0 19 CBC With Differential 10/10/[address] [facility] [address] [phone] White Blood Count 9.0 10 Normal 4.0-10.0 [...] 36.0-66.0 Lymph % 13.0 % Low 24.0-44.0 [place] % 5.9 % High 0.0-5.0 Eos % 0.2 % Normal 0.0-3.0 Baso % 0.2 % Normal 0.0-1.0 Immature Granulocyte % 0.7 % Normal 0-3.0 Nucleated Red Blood Cell % 0.0 % Normal 0-0 Neutrophils # 7.2 10 Normal 1.5-8.5 Lymph # 1.2 10 Low 1.5-5.0 [place] # 0.5 10 Normal 0.0-0.8 Eos # 0.0 10 Normal 0.0-0.5 Baso # 0.0 10 Normal 0.0-0.2 Venous Blood Gas 10/10/[address] [facility] [address] [phone] Venous PH 7.380 units Normal 7.330-7.430 Venous Partial Pressure Co2 42.1 mmHg Normal 38.0-50.0 Venous Partial Pressure O2 66.4 mmHg High 30.0-50.0 Venous Total Co2 24.3 mEq/L Normal 24.0-28.0 Venous Hco3 24.3 mEq/L Normal 23.0-27.0 Venous Base Excess -0.8 Normal -2.0-2.0 Venous Standard Hco3 23.7 mEq/L Normal Venous O2 Saturation 91.3 % High 60.0-80.0 Hemoglobin A1c 08/29/2019 [facility] [phone] Hemoglobin A1c 8.1 % Normal 20 Estimated Average Glucose 186 mg/dL High 60-110 Lipid Panel 08/29/2019 [facility] [phone] Triglycerides Level 75 mg/dL Normal <150 Cholesterol Level 121 mg/dL Normal <200 HDL Cholesterol 50 mg/dL Normal >40 LDL Cholesterol 56 mg/dL Normal <100 Non-HDL-C 71 mg/dL Normal Cholesterol Risk Ratio 2.420 Normal <5 Comprehensive Metabolic Profil 08/29/2019 [facility] [phone] Glucose, Fasting 132 mg/dL High 70-100 Blood [...] 1.4 Normal 1.2-2.2 Laboratory test finding 08/29/2019 [facility] [phone] Magnesium Level 2.0 mg/dL Normal 1.8-2.4 Basic Metabolic Profile 08/23/2019 Patient Service [place], [place] [id number] [phone] Glucose, Fasting 163 mg/dL High 70-100 Blood [...] 8.8-10.2 Complete Blood Count 07/27/2019 Patient Service [place], [place] [address] [phone] White Blood Count 10.9 10 High 4.0-10.0 [...] 0-0 Laboratory test finding 07/27/2019 Patient Service [place], [place] [address] [phone] Erythrocyte Sedimentation Rate 23 mm/hr Normal 0 -30 Basic Metabolic Profile 07/27/2019 Patient Service [place], [place] [address] [phone] Glucose, Fasting 159 mg/dL High 70-100 Blood [...] 8.8-10.2 Laboratory test finding 07/27/2019 [place] [address] [phone] Vancomycin Level Trough 11.9 UG/ML Normal 10.0-20. 0 C Reactive Protein Quantitativ 1.74 mg/dL High 0.00-0.30 1 DIAGNOSIS CRITERIA MMB ng/ml Relative Index (RI) NON-AMI < or = 5 N/A GOYAL ZONE > 5 < or = 4 AMI > 5 > 4 2 Troponin I Reference Interva l for Anadysta LOCI: 99th Percentile= 0.00-0.045 ng/ml Risk Stratification: [...] 5 Troponin I Reference Interva l for Anadysta LOCI: 99th Percentile= 0.00-0.045 ng/ml Risk Stratification: [...] Little GFR Left ESRD GFR <15 on [employer] 7 Testing was performed on an icteric [...] Little GFR Left ESRD GFR <15 on [employer] 9 REFERENCE RANGES: <=5.6% NORMAL 5.7-6.4% SUGGESTS [...] pathogens. DISCLAIMER: Testing was performed using the [employer] SARS-CoV-2 test. This test was developed and its performance characteristics determined by [employer]. This test has not been FDA cleared [...] Little GFR Left ESRD GFR <15 on [employer] 14 DIAGNOSIS CRITERIA MMB ng/ml Relative Index (RI) NON-AMI < or = 5 N/A GOYAL ZONE > 5 < or = 4 AMI > 5 > 4 15 Troponin I Reference Interva l for Anadysta LOCI: 99th Percentile= 0.00-0.045 ng/ml Risk Stratification: [...] Little GFR Left ESRD GFR <15 on [employer] 17 DIAGNOSIS CRITERIA MMB ng/ml Relative Index (RI) NON-AMI < or = 5 N/A GOYAL ZONE > 5 < or = 4 AMI > 5 > 4 18 Troponin I Reference Interva l for Anadysta LOCI: 99th Percentile= 0.00-0.045 ng/ml Risk Stratification: [...] Little GFR Left ESRD GFR <15 on [employer] 22 Units are mL/min/1.73 m2 Chronic Kidney Disease Staging per NKF: Stage I & II GFR >=60 Normal to Mildly Decreased Stage III GFR 30-59 Moderately Decreased Stage IV GFR 15-29 Severely Decreased Stage V GFR <15 Very Little GFR Left ESRD GFR <15 on [employer] 23 Units are mL/min/1.73 m2 Chronic Kidney Disease Staging per NKF: Stage I & II GFR >=60 Normal to Mildly Decreased Stage III GFR 30-59 Moderately Decreased Stage IV GFR 15-29 Severely Decreased Stage V GFR <15 Very Little GFR Left ESRD GFR <15 on [employer] Procedures Date Code Description Status 03/25/2018 [id number] Diabetic Foot Exam Completed 09/12/2017 [id number] Mammogram Completed 05/09/2014 [id number] Mammogram Completed 04/27/2014 [id number] Mammogram Completed 12/10/2010 [id number] Mammogram Completed Medical Devices Description No Information Available Encounters Type Date Location Provider Dx Diagnosis Office Visit 01/19/2020 2:00p Main Office 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 FNP Z00.0 0 Encntr for general adult medical exam w/o abnormal findings 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 [facility] of ex trm w martinmt damaris, left leg E11.69 Type 2 diabetes mellitus wit h other specified complication J44.1 Chronic obstructive pulmonar y disease w (acute) exacerbation Office Visit 12/16/2019 1:15p Main Office 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 FNP 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 I48.91 Unspecified atrial fibrillat ion I70.[address] [facility] [place] [facility] of ex trm w intrmt damaris, [...] E83.42 Hypomagnesemia R60.0 Localized edema I70.[address] [facility] [place] [facility] of ex trm w intrmt damaris, left leg J44.9 Chronic obstructive pulmonar y disease, unspecified Office Visit 09/20/2019 1:00p Main Office 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, STUDIO ASSOCIATE I50.4 2 Chronic combined systolic and diastolic [...] with intermittent claudication, left leg Pleskach Criselda, STUDIO ASSOCIATE 01/19/2020 E11.69 Type 2 diabetes mellitus with ot her specified complication Nuzhat Vega M.D. 01/19/2020 E11.69 Type 2 diabetes mellitus with ot her specified complication Pleskach, Criselda, STUDIO ASSOCIATE 01/19/2020 J44.9 Chronic obstructive pulmonary di sease, unspecified Nuzhat Vega M.D. 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 Pleskach, Criselda, STUDIO ASSOCIATE 01/11/2020 I48.91 Unspecified atrial fibrillation Pleskach, Criselda, STUDIO ASSOCIATE 01/11/2020 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, left leg Pleskach, Criselda, STUDIO ASSOCIATE 01/11/2020 E11.69 Type 2 diabetes mellitus with ot her specified complication Pleskach, Criselda, STUDIO ASSOCIATE 01/11/2020 J44.1 Chronic obstructive pulmonary disease with (acute) exacerbation Pleskach, Criselda, STUDIO ASSOCIATE 01/10/2020 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 Pleskach, Criselda, STUDIO ASSOCIATE 01/10/2020 I48.91 Unspecified atrial fibrillation Pleskach, Criselda, STUDIO ASSOCIATE 01/10/2020 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, left leg Pleskach, Criselda, STUDIO ASSOCIATE 01/10/2020 E11.69 Type 2 diabetes mellitus with ot her specified complication Pleskach, Criselda, STUDIO ASSOCIATE 01/10/2020 J44.9 Chronic obstructive pulmonary di sease, unspecified Pleskach, Criselda, STUDIO ASSOCIATE 12/16/2019 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 Pleskach, Criselda, STUDIO ASSOCIATE 12/16/2019 I48.91 Unspecified atrial fibrillation Pleskach, Criselda, STUDIO ASSOCIATE 12/16/2019 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, left leg Pleskach Criselda, STUDIO ASSOCIATE 12/16/2019 E11.69 Type 2 diabetes mellitus with ot her specified complication Pleskach, Criselda, STUDIO ASSOCIATE 12/16/2019 J44.1 Chronic obstructive pulmonary disease with (acute) exacerbation Pleskach, Criselda, STUDIO ASSOCIATE 12/03/2019 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 Pleskach, Criselda, STUDIO ASSOCIATE 12/03/2019 I48.91 Unspecified atrial fibrillation Pleskach, Criselda, STUDIO ASSOCIATE 12/03/2019 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, left leg Pleskach, Criselda, STUDIO ASSOCIATE 12/03/2019 E11.69 Type 2 diabetes mellitus with ot her specified complication Pleskach, Criselda, STUDIO ASSOCIATE 12/03/2019 J44.1 Chronic obstructive pulmonary disease with (acute) exacerbation Pleskach, Criselda, STUDIO ASSOCIATE 12/02/2019 I50.23 Acute on chronic systolic (conge stive) heart failure Pleskach Criselda, STUDIO ASSOCIATE 11/26/2019 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 Pleskach, Criselda, STUDIO ASSOCIATE 11/26/2019 I48.91 Unspecified atrial fibrillation Pleskach, Criselda, STUDIO ASSOCIATE 11/26/2019 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, left leg Pleskach Criselda, STUDIO ASSOCIATE 11/26/2019 E11.69 Type 2 diabetes mellitus with ot her specified complication Pleskach, Criselda, STUDIO ASSOCIATE 11/24/2019 L03.116 Cellulitis of left lower limb Pl Criselda connor, STUDIO ASSOCIATE 11/24/2019 R06.00 Dyspnea, unspecified PleskachLeslyly, STUDIO ASSOCIATE 11/09/2019 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 Pleskach, Criselda, STUDIO ASSOCIATE 11/09/2019 E11.69 Type 2 diabetes mellitus with ot her specified complication Pleskach, Criselda, STUDIO ASSOCIATE 11/09/2019 I48.91 Unspecified atrial fibrillation Pleskach Criselda, STUDIO ASSOCIATE 11/09/2019 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, left leg PleskCriselda springer, STUDIO ASSOCIATE 11/09/2019 J44.1 Chronic obstructive pulmonary disease with (acute) exacerbation Pleskach Criselda, STUDIO ASSOCIATE 10/20/2019 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 Pleskach Criselda, STUDIO ASSOCIATE 10/20/2019 E11.69 Type 2 diabetes mellitus with ot her specified complication Pleskach, Criselda, STUDIO ASSOCIATE 10/20/2019 I48.91 Unspecified atrial fibrillation Pleskach Criselda, STUDIO ASSOCIATE 10/20/2019 E87.6 Hypokalemia Pleskach Criselda, STUDIO ASSOCIATE 10/20/2019 E83.42 Hypomagnesemia Pleskach Criselda, STUDIO ASSOCIATE 10/20/2019 R60.0 Localized edema Pleskach Criselda, STUDIO ASSOCIATE 10/20/2019 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, left leg Pleskach Criselda, STUDIO ASSOCIATE 10/20/2019 J44.9 Chronic obstructive pulmonary di sease, unspecified Pleskach Criselda, STUDIO ASSOCIATE 10/18/2019 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 10/18/2019 E11.69 Type 2 diabetes mellitus with ot her specified complication Nuzhat Vega M.D. 10/18/2019 I48.91 Unspecified atrial fibrillation Nuzhat Vega M.D. 10/18/2019 E87.6 Hypokalemia Nuzhat Vega M.D. 10/18/2019 E83.42 Hypomagnesemia Nuzhat Vega M.D. 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 Pleskach Criselda, STUDIO ASSOCIATE 09/20/2019 E11.69 Type 2 diabetes mellitus with ot her specified complication Pleskach, Criselda, STUDIO ASSOCIATE 09/20/2019 E87.6 Hypokalemia Pleskach, Criselda, STUDIO ASSOCIATE 09/20/2019 E83.42 Hypomagnesemia Pleskach, Criselda, STUDIO ASSOCIATE 09/20/2019 J44.1 Chronic obstructive pulmonary disease with (acute) exacerbation Pleskach Criselda, STUDIO ASSOCIATE 09/20/2019 E66.01 Morbid (severe) obesity due to e xcess calories Pleskach, Criselda, STUDIO ASSOCIATE 09/20/2019 I48.91 Unspecified atrial fibrillation Pleskach Criselda, STUDIO ASSOCIATE 09/08/2019 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 09/08/2019 E83.42 Hypomagnesemia Nuzhat Vega M.D. 09/08/2019 E87.6 Hypokalemia Nuzhat Vega M.D. 09/08/2019 J44.1 Chronic obstructive pulmonary disease with (acute) exacerbation Nuzhat Vega M.D. 09/06/2019 E11.69 Type 2 diabetes mellitus with ot her specified complication Pleskach, Criselda, STUDIO ASSOCIATE 09/06/2019 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 Pleskach Criselda, STUDIO ASSOCIATE 09/06/2019 E87.6 Hypokalemia Pleskach, Criselda, STUDIO ASSOCIATE 09/06/2019 E83.42 Hypomagnesemia Pleskach, Criselda, STUDIO ASSOCIATE 09/06/2019 J44.1 Chronic obstructive pulmonary disease with (acute) exacerbation Pleskach, Criselda, STUDIO ASSOCIATE 09/06/2019 E66.01 Morbid (severe) obesity due to e xcess calories Pleskach, Criselda, STUDIO ASSOCIATE 09/06/2019 I48.91 Unspecified atrial fibrillation 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, STUDIO ASSOCIATE Plan of Treatment Future Appointment(s):* 01/28/2020 12:15 [...] to Reason for Referral Status Appt Date [facility] referring for PAD, LLE redness and swelling and pain Closed 12/07/2019 [address] [facility], [address] [place] [address] [phone] [facility] referring for PAD, LLE redness and swelling and pain Patient Declined 12/21/2019 [address] [facility], [address] [place], [place] [id number] [phone]
--- OUTSIDE RECORDS SUMMARY | 2020-03-07 19:48 | CCD | Continuity of Care Document ---
Author Author Sana HERRERA [facility] Organization Unknown Address [address] [place] [address] Phone [phone] Care Team Providers Care Station Cook Name Role Phone Dhaval Manuel MD AUTM [phone] Nuzhat Langley MD AUTM [phone] Roberto Wallace MD AUTM [phone] [facility] - Surgery AUTM [phone] Problems Active Problems Provider Date Essential hypertension [...] AT 2L/Min at bedtime via nasal cannula. Lupe raniCriselda santo FNP 08/09/2019 Potassium Chloride Keren ER 20Meq Tablets ER 1 by mouth every day Unknown 020 Acetaminophen 325mg Tablets 2 by mouth every [...] directed before testing bs 1Box 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 CASHIER ASSISTANT 12/03/2018 Fluticasone Propionate 50mcg/Act Suspension one spray each side of nose daily 32gm J30.9 Criselda Cabrera CASHIER ASSISTANT 10/14/2018 Ipratropium [place]/Albuterol Sulfate 0.5-2.5(3)mg/3ML Solution use 1 vial via nebulizer 4 times daily a s needed for coughing and wheezing 90ml 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 FNP 10/14 Neosporin Original 3.5-400-5000 Oi ntment apply to rash twice a day as needed 28.300gm R21 Emerson Herrera [facility] 12/09/2017 Freestyle Lite Lancets Misc use to check fasting blood glusose twice daily, dx: e11.9 200units Criselda Ruelas CASHIER ASSISTANT 04/07/2017 Freestyle Lite Test Strips use to check blood glucose 2 times a day, e11.9 200units Vivian Herrera CASHIER ASSISTANT 04/07/2017 Freestyle Lite Blood Glucose Monitoring System Device use for monitoring blood glucose twice a day, dx e11.9, prognosis good, duration 99 months 1units 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 FNP Citalopram Hydrobromide 40mg Table ts 1 tab by mouth every day 90tabs F32.9 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, DEMETRIA 03/13/19 18 Proair HFA 108(90Base) mcg/Act Aer osol 2 puffs every 4 hours as needed for wheezing and coughing 3units 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 FNP 04/12/2014 Lumigan 0.01% Solution one gtt. each eye at at bedtime Unknown Diltiazem HCL 60mg Tablets 1 tab by mouth once a at bedtime 90tabs 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 FNP 0 Advair Diskus 500-50mcg/Dose Aeros ol inhale one puff by mouth every day 60units Vivian Herrera, CASHIER ASSISTANT Xarelto 20mg Tablets 1 by mouth every day Jason Cosby [facility] History Medications Torsemide 10mg Tablets take 1 [...] CPT Code Status Date Vaccine Lot # 36583 Given 03/25/2018 Pneumococcal Vaccine [id number] Given 12/09/2017 Influenza Virus Vaccine, Quadrivalent,age 3 and up,multidose vial [id number] Q2038 Given 12/04/2016 Influenza Vaccine (Fluzone)( medicare) [id number] Q2038 Given 11/14/2015 Influenza Vaccine (Fluzone)( medicare) [id number] Given 10/12/2015 Prevnar 13 For Adults 95129 Given 11/17/2013 Influenza Vaccination 44776 Given 11/18/2007 Influenza Vaccination [id number] 21965 Given 12/12/2006 Influenza Vaccination [id number] Vital Signs Date Vital Result Comment 01/11/2020 3:53pm BP Systolic 120 mmHg BP Diastolic 61 mmHg Heart Rate 100 /min Body Temperature 96.9 F Respiratory Rate 26 /min Height 61.5 inches 5'1.50" Weight 253.38 lb O2 % BldC Oximetry 95 % Peak Expiratory Flow Rate 292 Estimated Peak Flow Rate [place] Body Weight 105 lb BMI (Body Mass Index) 47.1 kg/m2 12/16/2019 1:37pm BP Systolic 109 mmHg BP Diastolic 53 mmHg Heart Rate 70 /min Body Temperature 97.3 F Respiratory Rate 22 /min Height 61.5 inches 5'1.50" Weight 251.38 lb O2 % BldC Oximetry 94 % on room air Peak Expiratory Flow Rate 292 Estimated Peak Flow Rate [place] Body Weight 105 lb BMI (Body Mass Index) 46.7 kg/m2 Results Test Acquired Date Facility Test Result H/L Range Note Laboratory test finding 12/02/2019 [place] [address] [phone] Sars Covid-19 Amplification NEGATIVE Normal Nega tive 1 Venous Blood Gas 12/02/2019 Patient Service [facility] [place] [address] [phone] Venous PH 7.482 units High 7.330-7.430 Venous Partial Pressure Co2 37.5 mmHg Low 38.0-50.0 Venous Partial Pressure O2 135.7 mmHg High 30.0-50.0 Venous Total Co2 28.6 mEq/L High 24.0-28.0 Venous Hco3 27.4 mEq/L High 23.0-27.0 Venous Base Excess 3.9 High -2.0-2.0 Venous Standard Hco3 28.0 mEq/L Normal Venous O2 Saturation 98.9 % High 60.0-80.0 CBC With Differential 12/02/2019 Patient Service Ce nter [facility] [place] [address] [phone] White Blood Count 8.8 10 Normal 4.0-10.0 [...] 36.0-66.0 Lymph % 10.9 % Low 24.0-44.0 Yell % 7.1 % High 0.0-5.0 Eos % 1.9 % Normal 0.0-3.0 Baso % 0.5 % Normal 0.0-1.0 Immature Granulocyte % 0.6 % Normal 0-3.0 Nucleated Red Blood Cell % 0.0 % Normal 0-0 Neutrophils # 6.9 10 Normal 1.5-8.5 Lymph # 1.0 10 Low 1.5-5.0 Yell # 0.6 10 Normal 0.0-0.8 Eos # 0.2 10 Normal 0.0-0.5 Baso # 0.0 10 Normal 0.0-0.2 Prothrombin Time/Inr 12/02/[address] [facility] [place] [address] [phone] Prothrombin Time 19.4 seconds High 12.5-14.3 Inr 1.60 Normal 2 Liver Profile 12/02/2019 Patient Service Cent er [facility] [place] [address] [phone] Ast/Sgot 7 U/L Normal 7-37 Alt/SGPT 11 U/L Low 12-78 Alkaline Phosphatase 59 U/L Normal 45-117 Bilirubin,Total 0.7 mg/dL Normal 0.2-1.0 Bilirubin,Direct 0.3 mg/dL High 0.0-0.2 Total Protein 5.6 GM/DL Low 6.4-8.2 Albumin 3.2 GM/DL Normal 3.2-5.2 Albumin/Globulin Ratio 1.3 Normal 1.2-2.2 Laboratory test finding 12/02/2019 Patient [facility] [place] [id number] [phone] NT-Pro BNP 377 pg/mL Normal <450 Phenobarbital Level 2.1 UG/ML Low 15.0-40.0 Thyroid Stimulating Hormone 1.970 uIU/ML Normal 0.358-3.740 Lactic Acid Sepsis Protocol 1.4 mmol/L Normal 0.4-2.0 3 Laboratory test finding 12/02/2019 [place] [address] [phone] iSTAT Troponin 0.00 NG/ML Normal 0.00-0.08 Istat Chem8+ Panel 12/02/2019 Patient Service [facility] [place] [address] [phone] iSTAT HCT 31.0 % Low 38.0-51.0 iSTAT Glucose 116 mg/dL High 70-105 iSTAT Sodium 140 mEq/L Normal 136-145 iSTAT Potassium 3.8 mEq/L Normal 3.5-5.1 iSTAT CA++ 4.8 mg/dL Normal 4.5-5.3 iSTAT Chloride 99 mEq/L Normal 98-109 iSTAT Co2 28.0 MM/L High 23.0-27.0 iSTAT BUN 17 mg/dL Normal 8-26 iSTAT Creatinine 1.1 mg/dL Normal 0.6-1.3 Laboratory test finding 11/24/2019 [place] [address] [phone] NT-Pro BNP 244 pg/mL Normal <450 Thyroid Stimulating Hormone 2.460 uIU/ML Normal 0.358-3.740 C Reactive Protein Quantitativ 0.77 mg/dL High 0.00-0.30 Basic Metabolic Profile 11/24/2019 [place] [address] [phone] Glucose, Fasting 139 mg/dL High 70-100 Blood Urea Nitrogen 17 mg/dL Normal 7-18 Creatinine For GFR 1.27 mg/dL Normal 0.55-1.30 Glomerular Filtration Rate 43.4 Normal >39 4 Sodium Level 140 mEq/L Normal 136-145 Potassium Serum 4.0 mEq/L Normal 3.5-5.1 Chloride Level 105 mEq/L Normal 98-107 Carbon Dioxide Level 30 mEq/L Normal 21-32 Anion Gap 5 mEq/L Low 8-16 Calcium Level 9.2 mg/dL Normal 8.8-10.2 Liver Profile 11/24/2019 Patient Service [facility] [place] [address] [phone] Ast/Sgot 7 U/L Normal 7-37 Alt/SGPT 12 U/L Normal 12-78 Alkaline Phosphatase 56 U/L Normal 45-117 Bilirubin,Total 0.9 mg/dL Normal 0.2-1.0 Bilirubin,Direct 0.3 mg/dL High 0.0-0.2 Total Protein 5.5 GM/DL Low 6.4-8.2 Albumin 3.2 GM/DL Normal 3.2-5.2 Albumin/Globulin Ratio 1.4 Normal 1.2-2.2 Cardiac Marker Panel 11/24/[address] [place] [address] [phone] CPK Creatine Phosphokinase 26 U/L Normal 26-19 2 CK-MB Value Mass 1.2 NG/ML Normal <3.6 MB/CK Relative Index 4.62 High < Or =4 5 Troponin I < 0.02 NG/ML Normal < 0.10 6 Laboratory test finding 11/24/2019 [place] [address] [phone] Erythrocyte Sedimentation Rate 11 mm/hr Normal 0 -30 CBC With Differential 11/24/2019 [place] [address] [phone] White Blood Count 8.2 10 Normal 4.0-10.0 [...] 36.0-66.0 Lymph % 10.7 % Low 24.0-44.0 Yell % 5.6 % High 0.0-5.0 Eos % 2.1 % Normal 0.0-3.0 Baso % 0.5 % Normal 0.0-1.0 Immature Granulocyte % 0.6 % Normal 0-3.0 Nucleated Red Blood Cell % 0.0 % Normal 0-0 Neutrophils # 6.6 10 Normal 1.5-8.5 Lymph # 0.9 10 Low 1.5-5.0 Yell # 0.5 10 Normal 0.0-0.8 Eos # 0.2 10 Normal 0.0-0.5 Baso # 0.0 10 Normal 0.0-0.2 Laboratory test finding 10/10/2019 [place] [address] [phone] NT-Pro BNP 264 pg/mL Normal <450 Thyroxine (T4) 8.4 g/dL Normal 4.5-12.0 Thyroid Stimulating Hormone 1.340 uIU/ML Normal 0.358-3.740 Basic Metabolic Profile 10/10/2019 [place] [address] [phone] Glucose, Fasting 108 mg/dL High 70-100 Blood Urea Nitrogen 17 mg/dL Normal 7-18 Creatinine For GFR 1.25 mg/dL Normal 0.55-1.30 Glomerular Filtration Rate 44.2 Normal >39 7 Sodium Level 141 mEq/L Normal 136-145 Potassium Serum 3.9 mEq/L Normal 3.5-5.1 Chloride Level 106 mEq/L Normal 98-107 Carbon Dioxide Level 29 mEq/L Normal 21-32 Anion Gap 6 mEq/L Low 8-16 Calcium Level 9.6 mg/dL Normal 8.8-10.2 Liver Profile 10/10/2019 [place] [address] [phone] Ast/Sgot 11 U/L Normal 7-37 Alt/SGPT 10 U/L Low 12-78 Alkaline Phosphatase 56 U/L Normal 45-117 Bilirubin,Total 0.6 mg/dL Normal 0.2-1.0 Bilirubin,Direct 0.2 mg/dL Normal 0.0-0.2 Total Protein 5.7 GM/DL Low 6.4-8.2 Albumin 3.4 GM/DL Normal 3.2-5.2 Albumin/Globulin Ratio 1.5 Normal 1.2-2.2 Cardiac Marker Panel 10/10/[address] [place] [address] [phone] CPK Creatine Phosphokinase 25 U/L Low 26-19 2 CK-MB Value Mass 1.0 NG/ML Normal <3.6 MB/CK Relative Index 4.00 Normal < Or =4 8 Troponin I < 0.02 NG/ML Normal < 0.10 9 Laboratory test finding 10/10/2019 [place] [address] [phone] Lactic Acid Sepsis Protocol 2.0 mmol/L Normal 0.4- 2.0 10 CBC With Differential 10/10/2019 [place] [address] [phone] White Blood Count 9.0 10 Normal 4.0-10.0 [...] 36.0-66.0 Lymph % 13.0 % Low 24.0-44.0 Yell % 5.9 % High 0.0-5.0 Eos % 0.2 % Normal 0.0-3.0 Baso % 0.2 % Normal 0.0-1.0 Immature Granulocyte % 0.7 % Normal 0-3.0 Nucleated Red Blood Cell % 0.0 % Normal 0-0 Neutrophils # 7.2 10 Normal 1.5-8.5 Lymph # 1.2 10 Low 1.5-5.0 Yell # 0.5 10 Normal 0.0-0.8 Eos # 0.0 10 Normal 0.0-0.5 Baso # 0.0 10 Normal 0.0-0.2 Venous Blood Gas 10/10/2019 Patient Service [facility] RADIOLOGY [place], [place] [id number] [phone] Venous PH 7.380 units Normal 7.330-7.430 Venous Partial Pressure Co2 42.1 mmHg Normal 38.0-50.0 Venous Partial Pressure O2 66.4 mmHg High 30.0-50.0 Venous Total Co2 24.3 mEq/L Normal 24.0-28.0 Venous Hco3 24.3 mEq/L Normal 23.0-27.0 Venous Base Excess -0.8 Normal -2.0-2.0 Venous Standard Hco3 23.7 mEq/L Normal Venous O2 Saturation 91.3 % High 60.0-80.0 Hemoglobin A1c 08/29/2019 [facility] [phone] Hemoglobin A1c 8.1 % Normal 11 Estimated Average Glucose 186 mg/dL High 60-110 Lipid Panel 08/29/2019 [facility] [phone] Triglycerides Level 75 mg/dL Normal <150 Cholesterol Level 121 mg/dL Normal <200 HDL Cholesterol 50 mg/dL Normal >40 LDL Cholesterol 56 mg/dL Normal <100 Non-HDL-C 71 mg/dL Normal Cholesterol Risk Ratio 2.420 Normal <5 Comprehensive Metabolic Profil 08/29/2019 [facility] [phone] Glucose, Fasting 132 mg/dL High 70-100 Blood Urea Nitrogen 12 mg/dL Normal 7-18 Creatinine For GFR 1.14 mg/dL Normal 0.55-1.30 Glomerular Filtration Rate 49.2 Normal >39 1 2 Sodium Level 141 mEq/L Normal 136-145 Potassium [...] 1.4 Normal 1.2-2.2 Laboratory test finding 08/29/2019 [facility] [phone] Magnesium Level 2.0 mg/dL Normal 1.8-2.4 Basic Metabolic Profile 08/23/2019 [place] [address] [phone] Glucose, Fasting 163 mg/dL High 70-100 Blood Urea Nitrogen 19 mg/dL High 7-18 Creatinine For GFR 1.14 mg/dL Normal 0.55-1.30 Glomerular Filtration Rate 49.2 Normal >39 1 3 Sodium Level 140 mEq/L Normal 136-145 Potassium Serum 4.8 mEq/L Normal 3.5-5.1 Chloride Level 105 mEq/L Normal 98-107 Carbon Dioxide Level 29 mEq/L Normal 21-32 Anion Gap 6 mEq/L Low 8-16 Calcium Level 9.4 mg/dL Normal 8.8-10.2 Complete Blood Count 07/27/2019 Patient Service [place], [place] [id number] [phone] White Blood Count 10.9 10 High 4.0-10.0 [...] 0-0 Laboratory test finding 07/27/2019 [place] [address] [phone] Erythrocyte Sedimentation Rate 23 mm/hr Normal 0 -30 Basic Metabolic Profile 07/27/2019 [place] [address] [phone] Glucose, Fasting 159 mg/dL High 70-100 Blood Urea Nitrogen 15 mg/dL Normal 7-18 Creatinine For GFR 0.98 mg/dL Normal 0.55-1.30 Glomerular Filtration Rate 58.6 Normal >39 1 4 Sodium Level 140 mEq/L Normal 136-145 Potassium Serum 4.2 mEq/L Normal 3.5-5.1 Chloride Level 104 mEq/L Normal 98-107 Carbon Dioxide Level 30 mEq/L Normal 21-32 Anion Gap 6 mEq/L Low 8-16 Calcium Level 8.4 mg/dL Low 8.8-10.2 Laboratory test finding 07/27/2019 [place] [address] [phone] Vancomycin Level Trough 11.9 UG/ML Normal 10.0-20. 0 C Reactive Protein Quantitativ 1.74 mg/dL High 0.00-0.30 1 A false negative result may occur if [...] pathogens. DISCLAIMER: Testing was performed using the [employer] SARS-CoV-2 test. This test was developed and its performance characteristics determined by [facility]. This test has not been FDA cleared [...] the authorization is terminated or revoked sooner. 2 THERAPUTIC HUMAN INR VALUES INDICATIONS NORMAL RANGES PROPHYLAXIS/TREATMENT OF: VENOUS THROMBOSIS 2.0-3.0 PULMONARY EMBOLISM 2.0-3.0 PREVENTION OF SYSTEMIC EMBOLISM FROM: TISSUE HEART VALVES 2.0-3.0 ACUTE MYOCARDIAL INFARCTION 2.0-3.0 VALVULAR HEART DISEASE 2.0-3.0 ATRIAL FIBRILLATION 2.0-3.0 MECHANICAL VALVES(HIGH RISK) 2.5-3.5 RECURRENT MYOCARDIAL INFARCTION 2.5-3.5 3 Y/N query for Sepsis Lactate Rule: Y 4 Units are mL/min/1.73 m2 Chronic Kidney Disease Staging per NKF: Stage I & II GFR >=60 Normal to Mildly Decreased Stage III GFR 30-59 Moderately Decreased Stage IV GFR 15-29 Severely Decreased Stage V GFR <15 Very Little GFR Left ESRD GFR <15 on PAVING RAMMER 5 DIAGNOSIS CRITERIA MMB ng/ml Relative Index (RI) NON-AMI < or = 5 N/A GOYAL ZONE > 5 < or = 4 AMI > 5 > 4 6 Troponin I Reference Interva l for [place] Equine Enterprisesta LOCI: 99th Percentile= 0.00-0.045 ng/ml Risk Stratification: [...] Little GFR Left ESRD GFR <15 on PAVING RAMMER 8 DIAGNOSIS CRITERIA MMB ng/ml Relative Index (RI) NON-AMI < or = 5 N/A GOYAL ZONE > 5 < or = 4 AMI > 5 > 4 9 Troponin I Reference Interva l for [employer] [place] LOCI: 99th Percentile= 0.00-0.045 ng/ml Risk Stratification: <= 0.10 ng/ml Decreased Risk for Adverse Clinical Events. 0.10-1.50 ng/ml Increased Risk for Adv erse Clinical Events. Evaluation of additional criterion and/or repeat testing in 2-6 hours is suggested to rule out myocardial damage. >= 1.50 ng/ml Indicative of Myocardial Injury. 10 Y/N query for Sepsis Lactate Rule: Y 11 REFERENCE RANGES: 4.5-5.6% NORMAL 5.7-6.4% SUGGESTS IMPAIRED GLUCOSE META BOLISM >= 6.5% ABNORMAL 12 Units are mL/min/1.73 m2 Chronic Kidney Disease Staging per NKF: Stage I & II GFR >=60 Normal to Mildly Decreased Stage III GFR 30-59 Moderately Decreased Stage IV GFR 15-29 Severely Decreased Stage V GFR <15 Very Little GFR Left ESRD GFR <15 on PAVING RAMMER 13 Units are mL/min/1.73 m2 Chronic Kidney Disease Staging per NKF: Stage I & II GFR >=60 Normal to Mildly Decreased Stage III GFR 30-59 Moderately Decreased Stage IV GFR 15-29 Severely Decreased Stage V GFR <15 Very Little GFR Left ESRD GFR <15 on PAVING RAMMER 14 Units are mL/min/1.73 m2 Chronic Kidney Disease Staging per NKF: Stage I & II GFR >=60 Normal to Mildly Decreased Stage III GFR 30-59 Moderately Decreased Stage IV GFR 15-29 Severely Decreased Stage V GFR <15 Very Little GFR Left ESRD GFR <15 on P[facility]ING RAMMER Procedures Date Code Description Status 03/25/2018 [id number] Diabetic Foot Exam Completed 09/12/2017 [id number] Mammogram Completed 05/09/2014 [id number] Mammogram Completed 04/27/2014 [id number] Mammogram Completed 12/10/2010 [id number] Mammogram Completed Medical Devices Description No Information Available Encounters Type Date Location Provider Dx Diagnosis Office Visit 01/11/2020 3:45p Main Office 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 FNP 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 I48.91 Unspecified atrial fibrillat ion I70.212 Athscl [place] arteries of ex trm w intrmt damaris, left leg E11.69 Type 2 diabetes mellitus wit h other specified complication J44.1 Chronic obstructive pulmonar y disease w (acute) exacerbation Office Visit 12/16/2019 1:15p Main Office 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 FNP 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 I48.91 Unspecified atrial fibrillat ion I70.212 Athscl [place] arteries of ex trm w intrmt damaris, [...] E83.42 Hypomagnesemia R60.0 Localized edema I70.212 Athscl [place] arteries of ex trm w intrmt damaris, left leg J44.9 Chronic obstructive pulmonar y disease, unspecified Office Visit 09/20/2019 1:00p Main Office 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 FNP 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 E11.69 Type 2 diabetes mellitus wit h other specified complication E87.6 Hypokalemia E83.42 Hypomagnesemia J44.1 Chronic obstructive pulmonar y disease w (acute) exacerbation E66.01 Morbid (severe) obesity due to excess calories I48.91 Unspecified atrial fibrillat ion Office Visit 09/06/2019 11:30a Main Office Criselda eHrrera FNP E11.6 9 Type 2 diabetes mellitus with other specified complication 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 E87.6 Hypokalemia E83.42 Hypomagnesemia J44.1 Chronic obstructive pulmonar y disease w (acute) exacerbation E66.01 Morbid (severe) obesity due to excess calories I48.91 Unspecified atrial fibrillat ion Office Visit 07/21/2019 10:40a Main Office Nuzhat Langley M.D. 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 Pleskach, Criselda, CASHIER ASSISTANT 01/11/2020 I48.91 Unspecified atrial fibrillation Pleskach, Criselda, CASHIER ASSISTANT 01/11/2020 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, left leg Pleskach, Criselda, CASHIER ASSISTANT 01/11/2020 E11.69 Type 2 diabetes mellitus with ot her specified complication Pleskach, Criselda, CASHIER ASSISTANT 01/11/2020 J44.1 Chronic obstructive pulmonary disease with (acute) exacerbation Pleskach, Criselda, CASHIER ASSISTANT 12/16/2019 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 Pleskach, Criselda, CASHIER ASSISTANT 12/16/2019 I48.91 Unspecified atrial fibrillation Pleskach, Criselda, CASHIER ASSISTANT 12/16/2019 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, left leg Pleskach, Criselda, CASHIER ASSISTANT 12/16/2019 E11.69 Type 2 diabetes mellitus with ot her specified complication Pleskach, Criselda, CASHIER ASSISTANT 12/16/2019 J44.1 Chronic obstructive pulmonary disease with (acute) exacerbation Pleskach, Criselda, CASHIER ASSISTANT 12/03/2019 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 Pleskach, Criselda, CASHIER ASSISTANT 12/03/2019 I48.91 Unspecified atrial fibrillation Pleskach, Criselda, CASHIER ASSISTANT 12/03/2019 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, left leg Pleskach, Criselda, CASHIER ASSISTANT 12/03/2019 E11.69 Type 2 diabetes mellitus with ot her specified complication Pleskach, Criselda, CASHIER ASSISTANT 12/03/2019 J44.1 Chronic obstructive pulmonary disease with (acute) exacerbation Pleskach, Criselda, CASHIER ASSISTANT 12/02/2019 I50.23 Acute on chronic systolic (conge stive) heart failure Pleskach, Criselda, CASHIER ASSISTANT 11/26/2019 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 Pleskach, Criselda, CASHIER ASSISTANT 11/26/2019 I48.91 Unspecified atrial fibrillation PleskachMoey, CASHIER ASSISTANT 11/26/2019 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, left leg PleskachMoey, CASHIER ASSISTANT 11/26/2019 E11.69 Type 2 diabetes mellitus with ot her specified complication Pleskach Criselda, CASHIER ASSISTANT 11/24/2019 L03.116 Cellulitis of left lower limb Pl Criselda connor, CASHIER ASSISTANT 11/24/2019 R06.00 Dyspnea, unspecified PleskLesly springer, CASHIER ASSISTANT 11/09/2019 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 Pleskach Criselda, CASHIER ASSISTANT 11/09/2019 E11.69 Type 2 diabetes mellitus with ot her specified complication Pleskach, Criselda, CASHIER ASSISTANT 11/09/2019 I48.91 Unspecified atrial fibrillation Pleskach Criselda, CASHIER ASSISTANT 11/09/2019 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, left leg Pleskach, Criselda, CASHIER ASSISTANT 11/09/2019 J44.1 Chronic obstructive pulmonary disease with (acute) exacerbation Pleskach Criselda, CASHIER ASSISTANT 10/20/2019 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 Pleskach Criselda, CASHIER ASSISTANT 10/20/2019 E11.69 Type 2 diabetes mellitus with ot her specified complication Pleskach Criselda, CASHIER ASSISTANT 10/20/2019 I48.91 Unspecified atrial fibrillation PleskachMoey, CASHIER ASSISTANT 10/20/2019 E87.6 Hypokalemia Pleskach Criselda, CASHIER ASSISTANT 10/20/2019 E83.42 Hypomagnesemia Pleskach, Criselda, CASHIER ASSISTANT 10/20/2019 R60.0 Localized edema Pleskach, Criselda, CASHIER ASSISTANT 10/20/2019 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, left leg Pleskach, Criselda, CASHIER ASSISTANT 10/20/2019 J44.9 Chronic obstructive pulmonary di sease, unspecified Pleskach, Criselda, CASHIER ASSISTANT 10/18/2019 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 10/18/2019 E11.69 Type 2 diabetes mellitus with ot her specified complication Nuzhat Langley M.D. 10/18/2019 I48.91 Unspecified atrial fibrillation Nuzhat Langley M.D. 10/18/2019 E87.6 Hypokalemia Nuzhat Langley M.D. 10/18/2019 E83.42 Hypomagnesemia Nuzhat Langley M.D. 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 PleCriselda gomez, CASHIER ASSISTANT 09/20/2019 E11.69 Type 2 diabetes mellitus with ot her specified complication PleMoe gomezy, CASHIER ASSISTANT 09/20/2019 E87.6 Hypokalemia Plepatricia Criselda, CASHIER ASSISTANT 09/20/2019 E83.42 Hypomagnesemia Plepatricia Criselda, CASHIER ASSISTANT 09/20/2019 J44.1 Chronic obstructive pulmonary disease with (acute) exacerbation 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, CASHIER ASSISTANT 09/20/2019 E66.01 Morbid (severe) obesity due to e xcess calories PleCriselda gomez, CASHIER ASSISTANT 09/20/2019 I48.91 Unspecified atrial fibrillation PleMoe gomezy, CASHIER ASSISTANT 09/08/2019 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 09/08/2019 E83.42 Hypomagnesemia Nuzhat Langley M.D. 09/08/2019 E87.6 Hypokalemia Nuzhat Langley M.D. 09/08/2019 J44.1 Chronic obstructive pulmonary disease with (acute) exacerbation Nuzhat Langley M.D. 09/06/2019 E11.69 Type 2 diabetes mellitus with ot her specified complication Plemarioach Criselda, CASHIER ASSISTANT 09/06/2019 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, CASHIER ASSISTANT 09/06/2019 E87.6 Hypokalemia PleMoe gomezy, CASHIER ASSISTANT 09/06/2019 E83.42 Hypomagnesemia Plemarioach Criselda, CASHIER ASSISTANT 09/06/2019 J44.1 Chronic obstructive pulmonary disease with (acute) exacerbation 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DEMETRIA 09/06/2019 E66.01 Morbid (severe) obesity due to e xcess calories 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DEMETRIA 09/06/2019 I48.91 Unspecified atrial fibrillation 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DEMETRIA 07/21/2019 L03.116 Cellulitis of left lower limb Wi Nuzhat jennings M.D. 07/21/2019 I48.91 Unspecified atrial fibrillation Nuzhat Langley M.D. 07/21/2019 E11.69 Type 2 diabetes mellitus with ot her specified complication Nuzhat Langley M.D. 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 Plan of Treatment No Information Available Functional Status Functional Condition Comment Date Status Bifocal glasses Active Independent with all ADL's Activ e Complete lower and upper and lower dentures Active Independent with all IADL's Acti ve Mental Status Mental Condition Comment Date Status None Active Referrals Refer to Reason for Referral Status Appt Date [facility] referring for PAD, LLE redness and swelling and pain Closed 12/07/[address] [place] [address], [address] [place] [address] [phone] [facility] [place] referring for PAD, LLE redness and swelling and pain Patient Declined 12/21/2019 [address] [facility], [address] [place] [address] [phone]
--- OUTSIDE RECORDS SUMMARY | 2020-03-07 19:48 | CCD | Continuity of Care Document ---
Author Author Sana HERRERA [facility] Organization Unknown Address [address] [place] [address] Phone [phone] Care Team Providers Care Requisition Approver Name Role Phone Dhaval Manuel MD AUTM [phone] Nuzhat Langley MD AUTM [phone] Roberto Wallace MD AUTM [phone] [facility] - Surgery AUTM [phone] Problems Active Problems Provider Date Essential hypertension [...] 2 diabetes mellitus in obese Sharon Criselda [employer] Onset : 10/20/2019 Chronic obstructive pulmonary disease [...] lower extremity edema 2units R60.0 Pleskach, Criselda, [employer]PUTY 10/20/2019 Bacitracin (External) 500Unit/GM O intment apply [...] J30.9 Carmelaac Criselda kaminski FNP 10/14/2018 Ipratropium [place]/Albuterol Sulfate 0.5-2.5(3)mg/3ML Solution use 1 vial via nebulizer 4 times daily a s needed for coughing and wheezing 90ml 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 FNP 10/14 Neosporin Original 3.5-400-5000 Oi ntment apply to rash twice a day as needed 28.300gm R21 Emerson Herrera, DEMETRIA 12/09/2017 Freestyle Lite Lancets Misc use to check fasting blood glusose twice daily, dx: e11.9 200units Criselda Ruelas FNP 04/07/2017 Freestyle Lite Test Strips use to check blood glucose 2 times a day, e11.9 200units Vivian Herrera FNP 04/07/2017 Freestyle Lite Blood Glucose Monitoring System [...] once a at bedtime 90tabs 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, [employer]PUTY 0 Advair Diskus 500-50mcg/Dose Aeros ol inhale one puff by mouth every day 60units Vivian Herrera, [facility] Xarelto 20mg Tablets 1 by mouth every day Jason Cosby [facility] History Medications Torsemide 10mg Tablets take [...] CPT Code Status Date Vaccine Lot # [id number] Given 03/25/2018 Pneumococcal Vaccine [id number] Given 12/09/2017 Influenza Virus Vaccine, Quadrivalent,age 3 and up,multidose vial [id number] Q2038 Given 12/04/2016 Influenza Vaccine (Fluzone)( medicare) [id number] Q2038 Given 11/14/2015 Influenza Vaccine (Fluzone)( medicare) [id number] 17224 Given 10/12/2015 Prevnar 13 For Adults 07660 Given 11/17/2013 Influenza Vaccination 42279 Given 11/18/2007 Influenza Vaccination [id number] 61611 Given 12/12/2006 Influenza Vaccination [id number] Vital Signs Date Vital Result Comment 01/19/2020 2:18pm BP Systolic 108 mmHg BP Diastolic 77 mmHg Heart Rate 93 /min Body Temperature 97.3 F Respiratory Rate 22 /min Height 61.5 inches 5'1.50" Weight 252.50 lb O2 % BldC Oximetry 94 % Peak Expiratory Flow Rate 292 Estimated Peak Flow Rate Kimper Body Weight 105 lb BMI (Body Mass Index) 46.9 kg/m2 01/11/2020 3:53pm BP Systolic 120 mmHg BP Diastolic 61 mmHg Heart Rate 100 /min Body Temperature 96.9 F Respiratory Rate 26 /min Height 61.5 inches 5'1.50" Weight 253.38 lb O2 % BldC Oximetry 95 % Peak Expiratory Flow Rate 292 Estimated Peak Flow Rate Kimper Body Weight 105 lb BMI (Body Mass Index) 47.1 kg/m2 Results Test Acquired Date Facility Test Result H/L Range Note Comprehensive Metabolic Profil 01/19/2020 [facility] [phone] Glucose, Fasting 139 mg/dL High 70-100 Blood [...] Ratio 1.4 Normal 1.2-2.2 Hemoglobin A1c 01/19/2020 [facility]ter [phone] Hemoglobin A1c 6.5 % Normal 2 Estimated Average Glucose 140 mg/dL High 60-110 Istat Chem8+ Panel 12/02/2019 [place] [address] [phone] iSTAT HCT 31.0 % Low 38.0-51.0 iSTAT Glucose 116 mg/dL High 70-105 iSTAT Sodium 140 mEq/L Normal 136-145 iSTAT Potassium 3.8 mEq/L Normal 3.5-5.1 iSTAT CA++ 4.8 mg/dL Normal 4.5-5.3 iSTAT Chloride 99 mEq/L Normal 98-109 iSTAT Co2 28.0 MM/L High 23.0-27.0 iSTAT BUN 17 mg/dL Normal 8-26 iSTAT Creatinine 1.1 mg/dL Normal 0.6-1.3 Laboratory test finding 12/02/2019 [place] [address] [phone] iSTAT Troponin 0.00 NG/ML Normal 0.00-0.08 Laboratory test finding 12/02/2019 [place] [address] [phone] NT-Pro BNP 377 pg/mL Normal <450 Phenobarbital Level 2.1 UG/ML Low 15.0-40.0 Thyroid Stimulating Hormone 1.970 uIU/ML Normal 0.358-3.740 Lactic Acid Sepsis Protocol 1.4 mmol/L Normal 0.4-2.0 3 Liver Profile 12/02/[facility] [place] [address] [phone] Ast/Sgot 7 U/L Normal 7-37 Alt/SGPT 11 U/L Low 12-78 Alkaline Phosphatase 59 U/L Normal 45-117 Bilirubin,Total 0.7 mg/dL Normal 0.2-1.0 Bilirubin,Direct 0.3 mg/dL High 0.0-0.2 Total Protein 5.6 GM/DL Low 6.4-8.2 Albumin 3.2 GM/DL Normal 3.2-5.2 Albumin/Globulin Ratio 1.3 Normal 1.2-2.2 Prothrombin Time/Inr 12/02/[address] [place] [address] [phone] Prothrombin Time 19.4 seconds High 12.5-14.3 Inr 1.60 Normal 4 CBC With Differential 12/02/2019 [place] [address] [phone] White Blood Count 8.8 10 Normal 4.0-10.0 [...] 36.0-66.0 Lymph % 10.9 % Low 24.0-44.0 Donley % 7.1 % High 0.0-5.0 Eos % 1.9 % Normal 0.0-3.0 Baso % 0.5 % Normal 0.0-1.0 Immature Granulocyte % 0.6 % Normal 0-3.0 Nucleated Red Blood Cell % 0.0 % Normal 0-0 Neutrophils # 6.9 10 Normal 1.5-8.5 Lymph # 1.0 10 Low 1.5-5.0 Donley # 0.6 10 Normal 0.0-0.8 Eos # 0.2 10 Normal 0.0-0.5 Baso # 0.0 10 Normal 0.0-0.2 Venous Blood Gas 12/02/[address] [place] [address] [phone] Venous PH 7.482 units High 7.330-7.430 Venous Partial Pressure Co2 37.5 mmHg Low 38.0-50.0 Venous Partial Pressure O2 135.7 mmHg High 30.0-50.0 Venous Total Co2 28.6 mEq/L High 24.0-28.0 Venous Hco3 27.4 mEq/L High 23.0-27.0 Venous Base Excess 3.9 High -2.0-2.0 Venous Standard Hco3 28.0 mEq/L Normal Venous O2 Saturation 98.9 % High 60.0-80.0 Laboratory test finding 12/02/2019 [place] [address] [phone] Sars Covid-19 Amplification NEGATIVE Normal Nega tive 5 CBC With Differential 11/24/2019 [place] [address] [phone] White Blood Count 8.2 10 Normal 4.0-10.0 [...] 36.0-66.0 Lymph % 10.7 % Low 24.0-44.0 Donley % 5.6 % High 0.0-5.0 Eos % 2.1 % Normal 0.0-3.0 Baso % 0.5 % Normal 0.0-1.0 Immature Granulocyte % 0.6 % Normal 0-3.0 Nucleated Red Blood Cell % 0.0 % Normal 0-0 Neutrophils # 6.6 10 Normal 1.5-8.5 Lymph # 0.9 10 Low 1.5-5.0 Donley # 0.5 10 Normal 0.0-0.8 Eos # 0.2 10 Normal 0.0-0.5 Baso # 0.0 10 Normal 0.0-0.2 Laboratory test finding 11/24/2019 [place] [address] [phone] Erythrocyte Sedimentation Rate 11 mm/hr Normal 0 -30 Cardiac Marker Panel 11/24/[address] [place] [address] [phone] CPK Creatine Phosphokinase 26 U/L Normal 26-19 2 CK-MB Value Mass 1.2 NG/ML Normal <3.6 MB/CK Relative Index 4.62 High < Or =4 6 Troponin I < 0.02 NG/ML Normal < 0.10 7 Liver Profile 11/24/2019 Patient Service [facility] [place] [address] [phone] Ast/Sgot 7 U/L Normal 7-37 Alt/SGPT 12 U/L Normal 12-78 Alkaline Phosphatase 56 U/L Normal 45-117 Bilirubin,Total 0.9 mg/dL Normal 0.2-1.0 Bilirubin,Direct 0.3 mg/dL High 0.0-0.2 Total Protein 5.5 GM/DL Low 6.4-8.2 Albumin 3.2 GM/DL Normal 3.2-5.2 Albumin/Globulin Ratio 1.4 Normal 1.2-2.2 Basic Metabolic Profile 11/24/2019 [place] [address] [phone] Glucose, Fasting 139 mg/dL High 70-100 Blood [...] 8.8-10.2 Laboratory test finding 11/24/2019 [place] [address] [phone] NT-Pro BNP 244 pg/mL Normal <450 Thyroid Stimulating Hormone 2.460 uIU/ML Normal 0.358-3.740 C Reactive Protein Quantitativ 0.77 mg/dL High 0.00-0.30 Laboratory test finding 10/10/2019 [place] [address] [phone] NT-Pro BNP 264 pg/mL Normal <450 Thyroxine (T4) 8.4 g/dL Normal 4.5-12.0 Thyroid Stimulating Hormone 1.340 uIU/ML Normal 0.358-3.740 Basic Metabolic Profile 10/10/2019 [place] [address] [phone] Glucose, Fasting 108 mg/dL High 70-100 Blood [...] Normal 8.8-10.2 Liver Profile 10/10/2019 [place] [address] [phone] Ast/Sgot 11 U/L Normal 7-37 Alt/SGPT 10 U/L Low 12-78 Alkaline Phosphatase 56 U/L Normal 45-117 Bilirubin,Total 0.6 mg/dL Normal 0.2-1.0 Bilirubin,Direct 0.2 mg/dL Normal 0.0-0.2 Total Protein 5.7 GM/DL Low 6.4-8.2 Albumin 3.4 GM/DL Normal 3.2-5.2 Albumin/Globulin Ratio 1.5 Normal 1.2-2.2 Cardiac Marker Panel 10/10/[address] [place] [address] [phone] CPK Creatine Phosphokinase 25 U/L Low 26-19 2 CK-MB Value Mass 1.0 NG/ML Normal <3.6 MB/CK Relative Index 4.00 Normal < Or =4 10 Troponin I < 0.02 NG/ML Normal < 0.10 11 Laboratory test finding 10/10/2019 [place] [address] [phone] Lactic Acid Sepsis Protocol 2.0 mmol/L Normal 0.4- 2.0 12 CBC With Differential 10/10/2019 [place] [address] [phone] White Blood Count 9.0 10 Normal 4.0-10.0 [...] 36.0-66.0 Lymph % 13.0 % Low 24.0-44.0 Donley % 5.9 % High 0.0-5.0 Eos % 0.2 % Normal 0.0-3.0 Baso % 0.2 % Normal 0.0-1.0 Immature Granulocyte % 0.7 % Normal 0-3.0 Nucleated Red Blood Cell % 0.0 % Normal 0-0 Neutrophils # 7.2 10 Normal 1.5-8.5 Lymph # 1.2 10 Low 1.5-5.0 Donley # 0.5 10 Normal 0.0-0.8 Eos # 0.0 10 Normal 0.0-0.5 Baso # 0.0 10 Normal 0.0-0.2 Venous Blood Gas 10/10/[address] [place] [address] [phone] Venous PH 7.380 units Normal 7.330-7.430 Venous Partial Pressure Co2 42.1 mmHg Normal 38.0-50.0 Venous Partial Pressure O2 66.4 mmHg High 30.0-50.0 Venous Total Co2 24.3 mEq/L Normal 24.0-28.0 Venous Hco3 24.3 mEq/L Normal 23.0-27.0 Venous Base Excess -0.8 Normal -2.0-2.0 Venous Standard Hco3 23.7 mEq/L Normal Venous O2 Saturation 91.3 % High 60.0-80.0 Hemoglobin A1c 08/29/2019 [facility] [phone] Hemoglobin A1c 8.1 % Normal 13 Estimated Average Glucose 186 mg/dL High 60-110 Lipid Panel 08/29/2019 [facility] [phone] Triglycerides Level 75 mg/dL Normal <150 Cholesterol Level 121 mg/dL Normal <200 HDL Cholesterol 50 mg/dL Normal >40 LDL Cholesterol 56 mg/dL Normal <100 Non-HDL-C 71 mg/dL Normal Cholesterol Risk Ratio 2.420 Normal <5 Comprehensive Metabolic Profil 08/29/2019 [facility] [phone] Glucose, Fasting 132 mg/dL High 70-100 Blood [...] 1.4 Normal 1.2-2.2 Laboratory test finding 08/29/2019 [facility] [phone] Magnesium Level 2.0 mg/dL Normal 1.8-2.4 Basic Metabolic Profile 08/23/2019 Patient Service [place], [place] [address] [phone] Glucose, Fasting 163 mg/dL High 70-100 Blood [...] 8.8-10.2 Complete Blood Count 07/27/2019 [place] [address] [phone] White Blood Count 10.9 10 High 4.0-10.0 [...] 0-0 Laboratory test finding 07/27/2019 [place] [address] [phone] Erythrocyte Sedimentation Rate 23 mm/hr Normal 0 -30 Basic Metabolic Profile 07/27/2019 [place] [address] [phone] Glucose, Fasting 159 mg/dL High 70-100 Blood [...] Laboratory test finding 07/27/2019 [place] [address] [phone] Vancomycin Level Trough 11.9 UG/ML Normal 10.0-20. 0 C Reactive Protein Quantitativ 1.74 mg/dL High 0.00-0.30 1 Units are mL/min/1.73 m2 Chronic Kidney Disease Staging per NKF: Stage I & II GFR >=60 Normal to Mildly Decreased Stage III GFR 30-59 Moderately Decreased Stage IV GFR 15-29 Severely Decreased Stage V GFR <15 Very Little GFR Left ESRD GFR <15 on DRIVER ENGINEER 2 REFERENCE RANGES: <=5.6% NORMAL 5.7-6.4% SUGGESTS [...] pathogens. DISCLAIMER: Testing was performed using the [employer] SARS-CoV-2 test. This test was developed and its performance characteristics determined by [employer]. This test has not been FDA cleared [...] 7 Troponin I Reference Interva l for [employer] LOCI: 99th Percentile= 0.00-0.045 ng/ml Risk Stratification: [...] Little GFR Left ESRD GFR <15 on DRIVER ENGINEER 9 Units are mL/min/1.73 m2 Chronic Kidney Disease Staging per NKF: Stage I & II GFR >=60 Normal to Mildly Decreased Stage III GFR 30-59 Moderately Decreased Stage IV GFR 15-29 Severely Decreased Stage V GFR <15 Very Little GFR Left ESRD GFR <15 on DRIVER ENGINEER 10 DIAGNOSIS CRITERIA MMB ng/ml Relative Index (RI) NON-AMI < or = 5 N/A GO[place]AL ZONE > 5 < or = 4 AMI > 5 > 4 11 Troponin I Reference Interva l for [employer] LOCI: 99th Percentile= 0.00-0.045 ng/ml Risk Stratification: [...] Little GFR Left ESRD GFR <15 on DRIVER ENGINEER 15 Units are mL/min/1.73 m2 Chronic Kidney Disease Staging per NKF: Stage I & II GFR >=60 Normal to Mildly Decreased Stage III GFR 30-59 Moderately Decreased Stage IV GFR 15-29 Severely Decreased Stage V GFR <15 Very Little GFR Left ESRD GFR <15 on DRIVER ENGINEER 16 Units are mL/min/1.73 m2 Chronic Kidney Disease Staging per NKF: Stage I & II GFR >=60 Normal to Mildly Decreased Stage III GFR 30-59 Moderately Decreased Stage IV GFR 15-29 Severely Decreased Stage V GFR <15 Very Little GFR Left ESRD GFR <15 on DRIVER ENGINEER Procedures Date Code Description Status 03/25/2018 [id number] Diabetic Foot Exam Completed 09/12/2017 [id number] Mammogram Completed 05/09/2014 [id number] Mammogram Completed 04/27/2014 [id number] Mammogram Completed 12/10/2010 [id number] Mammogram Completed Medical Devices Description No Information Available Encounters Type Date Location Provider Dx Diagnosis Office Visit 01/19/2020 2:00p Main Office 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 FNP Z00.0 0 Encntr for general adult medical exam w/o abnormal findings 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 I48.91 Unspecified atrial fibrillat ion I70.212 [place] arteries of ex trm w intrmt damaris, left leg E11.69 Type 2 diabetes mellitus wit h other specified complication J44.9 Chronic obstructive pulmonar y disease, unspecified Office Visit 01/11/2020 3:45p Main Office 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 FNP 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 I48.91 Unspecified atrial fibrillat ion I70.212 [place] arteries of ex trm w intrmt damaris, left leg E11.69 Type 2 diabetes mellitus wit h other specified complication J44.1 Chronic obstructive pulmonar y disease w (acute) exacerbation Office Visit 12/16/2019 1:15p Main Office 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 FNP 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 I48.91 Unspecified atrial fibrillat ion I70.212 [place] of ex trm w intrmt damaris, left leg E11.69 Type 2 diabetes mellitus wit h other specified complication J44.1 Chronic obstructive pulmonar y disease w (acute) exacerbation Office Visit 12/02/2019 4:00p Main Office 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, [employer]PUTY I50.2 3 Acute on chronic systolic (congestive) heart failure Office Visit 11/24/2019 10:00a Main Office 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 [employer] L03.1 16 Cellulitis of left lower limb R06.00 Dyspnea, unspecified Office Visit 10/20/2019 1:45p Main Office 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, FI[employer]IE[employer] DEPUTY 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 E11.69 Type 2 diabetes mellitus wit h other specified complication I48.91 Unspecified atrial fibrillat ion E87.6 Hypokalemia E83.42 Hypomagnesemia R60.0 Localized edema I70.212 [place] arteries of ex trm w intrmt damaris, left leg J44.9 Chronic obstructive pulmonar y disease, unspecified Office Visit 09/20/2019 1:00p Main Office 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, FI[employer]IE[employer] DEPUTY 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 01/19/2020 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 Plepatricia Criselda, [employer] DEPUTY 01/19/2020 I48.91 Unspecified atrial fibrillation Nuzhat Langley M.D. 01/19/2020 I48.91 Unspecified atrial fibrillation Pleskach Criselda, FI[employer] DEPUTY 01/19/2020 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, left leg Nuzhat Langley M.D. 01/19/2020 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, left leg Plemarioach Criselda, [employer] DEPUTY 01/19/2020 E11.69 Type 2 diabetes mellitus with ot her specified complication Nuzhat Langley M.D. 01/19/2020 E11.69 Type 2 diabetes mellitus with ot her specified complication PlemarioachMoey, FIRE CHIEF DEPUTY 01/19/2020 J44.9 Chronic obstructive pulmonary di sease, unspecified Nuzhat Langley M.D. 01/19/2020 J44.9 Chronic obstructive pulmonary di sease, unspecified Pleskach Criselda, FI[employer] CHIEF DEPUTY 01/11/2020 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 PlemarioachMoey, FI[employer] CHIEF DEPUTY 01/11/2020 I48.91 Unspecified atrial fibrillation Pleskach Criselda, FI[employer]IE[employer] DEPUTY 01/11/2020 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, left leg Pleskach Criselda, FI[employer]IEF DEPUTY 01/11/2020 E11.69 Type 2 diabetes mellitus with ot her specified complication Pleskach Criselda, FI[employer] CHIEF DEPUTY 01/11/2020 J44.1 Chronic obstructive pulmonary disease with (acute) exacerbation PleskachMoey, FI[employer] CHIEF DEPUTY 12/16/2019 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 Pleskach Criselda, [employer]IEF DEPUTY 12/16/2019 I48.91 Unspecified atrial fibrillation Pleskach Criselda, FI[employer] CHIEF DEPUTY 12/16/2019 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, left leg Pleskach, Criselda, [employer] DEPUTY 12/16/2019 E11.69 Type 2 diabetes mellitus with ot her specified complication Pleskach, Criselda, FI[employer]IEF DEPUTY 12/16/2019 J44.1 Chronic obstructive pulmonary disease with (acute) exacerbation Pleskach, Criselda, [employer]IEF DEPUTY 12/03/2019 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 Pleskach, Criselda, FI[employer]IEF DEPUTY 12/03/2019 I48.91 Unspecified atrial fibrillation Pleskach, Criselda, FI[employer] CHIEF DEPUTY 12/03/2019 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, left leg Pleskach, Criselda, FI[employer]IEF DEPUTY 12/03/2019 E11.69 Type 2 diabetes mellitus with ot her specified complication Pleskach, Criselda, FI[employer]IEF DEPUTY 12/03/2019 J44.1 Chronic obstructive pulmonary disease with (acute) exacerbation Pleskach, Criselda, FI[employer] DEPUTY 12/02/2019 I50.23 Acute on chronic systolic (conge stive) heart failure Pleskach Criselda, FI[employer]IEF DEPUTY 11/26/2019 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 Pleskach, Criselda, FI[employer]F DEPUTY 11/26/2019 I48.91 Unspecified atrial fibrillation Pleskach Criselda, FI[employer] CHIEF DEPUTY 11/26/2019 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, left leg Pleskach Criselda, FI[employer]F DEPUTY 11/26/2019 E11.69 Type 2 diabetes mellitus with ot her specified complication Pleskach, Criselda, FI[employer] DEPUTY 11/24/2019 L03.116 Cellulitis of left lower limb Pl Criselda connor, FI[employer]PUTY 11/24/2019 R06.00 Dyspnea, unspecified PleLesly gomez, FI[employer] DEPUTY 11/09/2019 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 Pleskach Criselda, FI[employer]F DEPUTY 11/09/2019 E11.69 Type 2 diabetes mellitus with ot her specified complication Pleskach, Criselda, FI[employer] CHIEF DEPUTY 11/09/2019 I48.91 Unspecified atrial fibrillation Pleskach, Cirselda, FI[employer]F DEPUTY 11/09/2019 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, left leg PleskCriselda springer, FI[employer] CHIEF DEPUTY 11/09/2019 J44.1 Chronic obstructive pulmonary disease with (acute) exacerbation Pleskach Criselda, FI[employer] CHIEF DEPUTY 10/20/2019 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 Pleskach Criselda, FI[employer] CHIEF DEPUTY 10/20/2019 E11.69 Type 2 diabetes mellitus with ot her specified complication Pleskach Criselda, FI[employer] CHIEF DEPUTY 10/20/2019 I48.91 Unspecified atrial fibrillation Pleskach Criselda, FI[employer] CHIEF DEPUTY 10/20/2019 E87.6 Hypokalemia Pleskach, Criselda, FI[employer] CH[employer]F DEPUTY 10/20/2019 E83.42 Hypomagnesemia Pleskach Criselda, FI[employer] CHIEF DEPUTY 10/20/2019 R60.0 Localized edema Pleskach Criselda, FI[employer] CH[employer]F DEPUTY 10/20/2019 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, left leg PleskachMoey, FIRE CHIEF DEPUTY 10/20/2019 J44.9 Chronic obstructive pulmonary di sease, unspecified Pleskach Criselda, FI[employer] CHIEF DEPUTY 10/18/2019 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 10/18/2019 E11.69 Type 2 diabetes mellitus with ot her specified complication Nuzhat Langley M.D. 10/18/2019 I48.91 Unspecified atrial fibrillation Nuzhat Langley M.D. 10/18/2019 E87.6 Hypokalemia Nuzhat Langley M.D. 10/18/2019 E83.42 Hypomagnesemia Nuzhat Langley M.D. 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 Pleskach Criselda, FI[employer] CHIEF DEPUTY 09/20/2019 E11.69 Type 2 diabetes mellitus with ot her specified complication Pleskach, Criselda, FI[employer] CHIEF DEPUTY 09/20/2019 E87.6 Hypokalemia Pleskach, Criselda, FI[employer] CHIEF DEPUTY 09/20/2019 E83.42 Hypomagnesemia Pleskach, Criselda, FI[employer] CHIEF DEPUTY 09/20/2019 J44.1 Chronic obstructive pulmonary disease with (acute) exacerbation PleskachMoey, FI[employer] CHIEF DEPUTY 09/20/2019 E66.01 Morbid (severe) obesity due to e xcess calories MerlinskMoe springery, FIRE CHIEF DEPUTY 09/20/2019 I48.91 Unspecified atrial fibrillation PleskachMoey, FIRE CHIEF DEPUTY 09/08/2019 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 09/08/2019 E83.42 Hypomagnesemia Nuzhat Langley M.D. 09/08/2019 E87.6 Hypokalemia Nuzhat Langley M.D. 09/08/2019 J44.1 Chronic obstructive pulmonary disease with (acute) exacerbation Nuzhat Langley M.D. 09/06/2019 E11.69 Type 2 diabetes mellitus with ot her specified complication PleCriselda gomez, FIRE CHIEF DEPUTY 09/06/2019 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 PleCriselda gomez, FIRE CHIEF DEPUTY 09/06/2019 E87.6 Hypokalemia PleCriselda gomez, FIRE CHIEF DEPUTY 09/06/2019 E83.42 Hypomagnesemia Plepatricia Criselda, FI[employer] CHIEF DEPUTY 09/06/2019 J44.1 Chronic obstructive pulmonary disease with (acute) exacerbation PleskCriselda springer, FI[employer] CHIEF DEPUTY 09/06/2019 E66.01 Morbid (severe) obesity due to e xcess calories 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, FI[employer] CHIEF DEPUTY 09/06/2019 I48.91 Unspecified atrial fibrillation 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, FIRE CHIEF DEPUTY Plan of Treatment Future Appointment(s):* 04/18/2020 1:00 pm - 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 FNP at Main Office Functional Status Functional Condition Comment Date Status Bifocal glasses Active Independent with all ADL's Activ e Complete lower and upper and lower dentures Active Independent with all IADL's Acti ve Mental Status Mental Condition Comment Date Status None Active Referrals Refer to Reason for Referral Status Appt Date [facility] referring for PAD, LLE redness and swelling and pain Closed 12/07/2019 [address] [facility], [address] [place] [address] [phone] [facility] referring for PAD, LLE redness and swelling and pain Patient Declined 12/21/2019 [address] , [address] [place] [address] [phone]
--- OUTSIDE RECORDS SUMMARY | 2020-03-07 19:48 | CCD | Continuity of Care Document ---
Author Author Sana HERRERA [facility] Organization Unknown Address [address] [place] [address] Phone [phone] Care Team Providers Care Funding Analyst Name Role Phone Dhaval Manuel MD AUTM [phone] Nuzhat Langley MD AUTM [phone] Roberto Wallace MD AUTM [phone] [facility] - Surgery AUTM [phone] Problems Active Problems Provider Date Essential hypertension [...] 2 diabetes mellitus in obese Sharon Criselda GRID OPERATOR Onset : 10/20/2019 Chronic obstructive pulmonary disease [...] lower extremity edema 2units R60.0 Pleskach, Criselda, GRID OPERATOR 10/20/2019 Bacitracin (External) 500Unit/GM O intment apply [...] J30.9 Carmelaac Criselda kaminski FNP 10/14/2018 Ipratropium [place]/Albuterol Sulfate 0.5-2.5(3)mg/3ML Solution use 1 vial via [...] for wheezing and coughing 3units 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 [facility] 04/12/2014 Lumigan 0.01% Solution one gtt. each eye at at bedtime Unknown Diltiazem HCL 60mg Tablets 1 tab by mouth once a at bedtime 90tabs 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, GRID OPERATOR 0 Advair Diskus 500-50mcg/Dose Aeros ol inhale one puff by mouth every day 60units Vivian Herrera, [facility] Xarelto 20mg Tablets 1 by mouth every day Jason Cosby [facility] History Medications Torsemide 10mg Tablets take 1 [...] CPT Code Status Date Vaccine Lot # 23966 Given 03/25/2018 Pneumococcal Vaccine [id number] 00979 Given 12/09/2017 Influenza Virus Vaccine, Quadrivalent,age 3 and up,multidose vial [id number] Q2038 Given 12/04/2016 Influenza Vaccine (Fluzone)( medicare) [id number] Q2038 Given 11/14/2015 Influenza Vaccine (Fluzone)( medicare) [id number] 08219 Given 10/12/2015 Prevnar 13 For Adults 00603 Given 11/17/2013 Influenza Vaccination 52880 Given 11/18/2007 Influenza Vaccination [id number] 98351 Given 12/12/2006 Influenza Vaccination [id number] Vital Signs Date Vital Result Comment 01/19/2020 2:18pm BP Systolic 108 mmHg BP Diastolic 77 mmHg Heart Rate 93 /min Body Temperature 97.3 F Respiratory Rate 22 /min Height 61.5 inches 5'1.50" Weight 252.50 lb O2 % BldC Oximetry 94 % Peak Expiratory Flow Rate 292 Estimated Peak Flow Rate Metz Body Weight 105 lb BMI (Body Mass Index) 46.9 kg/m2 01/11/2020 3:53pm BP Systolic 120 mmHg BP Diastolic 61 mmHg Heart Rate 100 /min Body Temperature 96.9 F Respiratory Rate 26 /min Height 61.5 inches 5'1.50" Weight 253.38 lb O2 % BldC Oximetry 95 % Peak Expiratory Flow Rate 292 Estimated Peak Flow Rate Metz Body Weight 105 lb BMI (Body Mass Index) 47.1 kg/m2 Results Test Acquired Date Facility Test Result H/L Range Note Laboratory test finding 12/02/2019 [place] [address] [phone] Sars Covid-19 Amplification NEGATIVE Normal Nega tive 1 Venous Blood Gas 12/02/2019 [place] [address] [phone] Venous PH 7.482 units High 7.330-7.430 Venous Partial Pressure Co2 37.5 mmHg Low 38.0-50.0 Venous Partial Pressure O2 135.7 mmHg High 30.0-50.0 Venous Total Co2 28.6 mEq/L High 24.0-28.0 Venous Hco3 27.4 mEq/L High 23.0-27.0 Venous Base Excess 3.9 High -2.0-2.0 Venous Standard Hco3 28.0 mEq/L Normal Venous O2 Saturation 98.9 % High 60.0-80.0 CBC With Differential 12/02/2019 [place] [address] [phone] White Blood Count 8.8 10 Normal 4.0-10.0 [...] 36.0-66.0 Lymph % 10.9 % Low 24.0-44.0 Stearns % 7.1 % High 0.0-5.0 Eos % 1.9 % Normal 0.0-3.0 Baso % 0.5 % Normal 0.0-1.0 Immature Granulocyte % 0.6 % Normal 0-3.0 Nucleated Red Blood Cell % 0.0 % Normal 0-0 Neutrophils # 6.9 10 Normal 1.5-8.5 Lymph # 1.0 10 Low 1.5-5.0 Stearns # 0.6 10 Normal 0.0-0.8 Eos # 0.2 10 Normal 0.0-0.5 Baso # 0.0 10 Normal 0.0-0.2 Prothrombin Time/Inr 12/02/2019 [place] [address] [phone] Prothrombin Time 19.4 seconds High 12.5-14.3 Inr 1.60 Normal 2 Liver Profile 12/02/2019 [place] [address] [phone] Ast/Sgot 7 U/L Normal 7-37 Alt/SGPT 11 U/L Low 12-78 Alkaline Phosphatase 59 U/L Normal 45-117 Bilirubin,Total 0.7 mg/dL Normal 0.2-1.0 Bilirubin,Direct 0.3 mg/dL High 0.0-0.2 Total Protein 5.6 GM/DL Low 6.4-8.2 Albumin 3.2 GM/DL Normal 3.2-5.2 Albumin/Globulin Ratio 1.3 Normal 1.2-2.2 Laboratory test finding 12/02/2019 [place] [address] [phone] NT-Pro BNP 377 pg/mL Normal <450 Phenobarbital Level 2.1 UG/ML Low 15.0-40.0 Thyroid Stimulating Hormone 1.970 uIU/ML Normal 0.358-3.740 Lactic Acid Sepsis Protocol 1.4 mmol/L Normal 0.4-2.0 3 Laboratory test finding 12/02/2019 [place] [address] [phone] iSTAT Troponin 0.00 NG/ML Normal 0.00-0.08 Istat Chem8+ Panel 12/02/2019 [place] [address] [phone] iSTAT HCT 31.0 % Low 38.0-51.0 iSTAT Glucose 116 mg/dL High 70-105 iSTAT Sodium 140 mEq/L Normal 136-145 iSTAT Potassium 3.8 mEq/L Normal 3.5-5.1 iSTAT CA++ 4.8 mg/dL Normal 4.5-5.3 iSTAT Chloride 99 mEq/L Normal 98-109 iSTAT Co2 28.0 MM/L High 23.0-27.0 iSTAT BUN 17 mg/dL Normal 8-26 iSTAT Creatinine 1.1 mg/dL Normal 0.6-1.3 Laboratory test finding 11/24/2019 [place] [address] [phone] NT-Pro BNP 244 pg/mL Normal <450 Thyroid Stimulating Hormone 2.460 uIU/ML Normal 0.358-3.740 C Reactive Protein Quantitativ 0.77 mg/dL High 0.00-0.30 Basic Metabolic Profile 11/24/2019 [place] [address] [phone] Glucose, Fasting 139 mg/dL High 70-100 Blood [...] Normal 8.8-10.2 Liver Profile 11/24/2019 Patient Service [facility] [address] [phone] Ast/Sgot 7 U/L Normal 7-37 Alt/SGPT 12 U/L Normal 12-78 Alkaline Phosphatase 56 U/L Normal 45-117 Bilirubin,Total 0.9 mg/dL Normal 0.2-1.0 Bilirubin,Direct 0.3 mg/dL High 0.0-0.2 Total Protein 5.5 GM/DL Low 6.4-8.2 Albumin 3.2 GM/DL Normal 3.2-5.2 Albumin/Globulin Ratio 1.4 Normal 1.2-2.2 Cardiac Marker Panel 11/24/[address] [place] [address] [phone] CPK Creatine Phosphokinase 26 U/L Normal 26-19 2 CK-MB Value Mass 1.2 NG/ML Normal <3.6 MB/CK Relative Index 4.62 High < Or =4 5 Troponin I < 0.02 NG/ML Normal < 0.10 6 Laboratory test finding 11/24/2019 [place] [address] [phone] Erythrocyte Sedimentation Rate 11 mm/hr Normal 0 -30 CBC With Differential 11/24/2019 [place] [address] [phone] White Blood Count 8.2 10 Normal 4.0-10.0 [...] 36.0-66.0 Lymph % 10.7 % Low 24.0-44.0 Stearns % 5.6 % High 0.0-5.0 Eos % 2.1 % Normal 0.0-3.0 Baso % 0.5 % Normal 0.0-1.0 Immature Granulocyte % 0.6 % Normal 0-3.0 Nucleated Red Blood Cell % 0.0 % Normal 0-0 Neutrophils # 6.6 10 Normal 1.5-8.5 Lymph # 0.9 10 Low 1.5-5.0 Stearns # 0.5 10 Normal 0.0-0.8 Eos # 0.2 10 Normal 0.0-0.5 Baso # 0.0 10 Normal 0.0-0.2 Laboratory test finding 10/10/2019 [facility] [place] [id number] [phone] NT-Pro BNP 264 pg/mL Normal <450 Thyroxine (T4) 8.4 g/dL Normal 4.5-12.0 Thyroid Stimulating Hormone 1.340 uIU/ML Normal 0.358-3.740 Basic Metabolic Profile 10/10/2019 Patient Service [place] [id number] [phone] Glucose, Fasting 108 mg/dL High 70-100 Blood [...] Liver Profile 10/10/2019 [place] [address] [phone] Ast/Sgot 11 U/L Normal 7-37 Alt/SGPT 10 U/L Low 12-78 Alkaline Phosphatase 56 U/L Normal 45-117 Bilirubin,Total 0.6 mg/dL Normal 0.2-1.0 Bilirubin,Direct 0.2 mg/dL Normal 0.0-0.2 Total Protein 5.7 GM/DL Low 6.4-8.2 Albumin 3.4 GM/DL Normal 3.2-5.2 Albumin/Globulin Ratio 1.5 Normal 1.2-2.2 Cardiac Marker Panel 10/10/2019 [place] [address] [phone] CPK Creatine Phosphokinase 25 U/L Low 26-19 2 CK-MB Value Mass 1.0 NG/ML Normal <3.6 MB/CK Relative Index 4.00 Normal < Or =4 8 Troponin I < 0.02 NG/ML Normal < 0.10 9 Laboratory test finding 10/10/2019 [place] [address] [phone] Lactic Acid Sepsis Protocol 2.0 mmol/L Normal 0.4- 2.0 10 CBC With Differential 10/10/2019 [place] [address] [phone] White Blood Count 9.0 10 Normal 4.0-10.0 [...] 36.0-66.0 Lymph % 13.0 % Low 24.0-44.0 Stearns % 5.9 % High 0.0-5.0 Eos % 0.2 % Normal 0.0-3.0 Baso % 0.2 % Normal 0.0-1.0 Immature Granulocyte % 0.7 % Normal 0-3.0 Nucleated Red Blood Cell % 0.0 % Normal 0-0 Neutrophils # 7.2 10 Normal 1.5-8.5 Lymph # 1.2 10 Low 1.5-5.0 Stearns # 0.5 10 Normal 0.0-0.8 Eos # 0.0 10 Normal 0.0-0.5 Baso # 0.0 10 Normal 0.0-0.2 Venous Blood Gas 10/10/2019 [place] [address] [phone] Venous PH 7.380 units Normal 7.330-7.430 Venous Partial Pressure Co2 42.1 mmHg Normal 38.0-50.0 Venous Partial Pressure O2 66.4 mmHg High 30.0-50.0 Venous Total Co2 24.3 mEq/L Normal 24.0-28.0 Venous Hco3 24.3 mEq/L Normal 23.0-27.0 Venous Base Excess -0.8 Normal -2.0-2.0 Venous Standard Hco3 23.7 mEq/L Normal Venous O2 Saturation 91.3 % High 60.0-80.0 Hemoglobin A1c 08/29/2019 [facility] [phone] Hemoglobin A1c 8.1 % Normal 11 Estimated Average Glucose 186 mg/dL High 60-110 Lipid Panel 08/29/2019 [facility] nter [phone] Triglycerides Level 75 mg/dL Normal <150 Cholesterol Level 121 mg/dL Normal <200 HDL Cholesterol 50 mg/dL Normal >40 LDL Cholesterol 56 mg/dL Normal <100 Non-HDL-C 71 mg/dL Normal Cholesterol Risk Ratio 2.420 Normal <5 Comprehensive Metabolic Profil 08/29/2019 [facility] [phone] Glucose, Fasting 132 mg/dL High 70-100 Blood [...] 1.4 Normal 1.2-2.2 Laboratory test finding 08/29/2019 [facility] [phone] Magnesium Level 2.0 mg/dL Normal 1.8-2.4 Basic Metabolic Profile 08/23/2019 [place] [address] [phone] Glucose, Fasting 163 mg/dL High 70-100 Blood [...] 8.8-10.2 Complete Blood Count 07/27/2019 Patient Service [place], [place] [id number] [phone] White Blood Count 10.9 10 High 4.0-10.0 [...] 0-0 Laboratory test finding 07/27/2019 [place] [address] [phone] Erythrocyte Sedimentation Rate 23 mm/hr Normal 0 -30 Basic Metabolic Profile 07/27/2019 [place] [address] [phone] Glucose, Fasting 159 mg/dL High 70-100 Blood [...] 8.8-10.2 Laboratory test finding 07/27/2019 [place] [address] [phone] Vancomycin Level Trough 11.9 UG/ML Normal 10.0-20. [...] pathogens. DISCLAIMER: Testing was performed using the [employer] SARS-CoV-2 test. This test was developed and its performance characteristics determined by [employer]. This test has not been FDA cleared [...] Little GFR Left ESRD GFR <15 on PHYSICS TEACHER 5 DIAGNOSIS CRITERIA MMB ng/ml Relative Index (RI) NON-AMI < or = 5 N/A GOYAL ZONE > 5 < or = 4 AMI > 5 > 4 6 Troponin I Reference Interva l for [place] LOCI: 99th Percentile= 0.00-0.045 ng/ml Risk Stratification: [...] Little GFR Left ESRD GFR <15 on PHYSICS TEACHER 8 DIAGNOSIS CRITERIA MMB ng/ml Relative Index (RI) NON-AMI < or = 5 N/A GOYAL ZONE > 5 < or = 4 AMI > 5 > 4 9 Troponin I Reference Interva l for [place] LOCI: 99th Percentile= 0.00-0.045 ng/ml Risk Stratification: [...] Little GFR Left ESRD GFR <15 on PHYSICS TEACHER 13 Units are mL/min/1.73 m2 Chronic Kidney Disease Staging per NKF: Stage I & II GFR >=60 Normal to Mildly Decreased Stage III GFR 30-59 Moderately Decreased Stage IV GFR 15-29 Severely Decreased Stage V GFR <15 Very Little GFR Left ESRD GFR <15 on PHYSICS TEACHER 14 Units are mL/min/1.73 m2 Chronic Kidney Disease Staging per NKF: Stage I & II GFR >=60 Normal to Mildly Decreased Stage III GFR 30-59 Moderately Decreased Stage IV GFR 15-29 Severely Decreased Stage V GFR <15 Very Little GFR Left ESRD GFR <15 on PHYSICS TEACHER Procedures Date Code Description Status 03/25/2018 [id number] Diabetic Foot Exam Completed 09/12/2017 [id number] Mammogram Completed 05/09/2014 [id number] Mammogram Completed 04/27/2014 [id number] Mammogram Completed 12/10/2010 [id number] Mammogram Completed Medical Devices Description No Information Available Encounters Type Date Location Provider Dx Diagnosis Office Visit 01/11/2020 3:45p Main Office 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 FNP 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 I48.91 Unspecified atrial fibrillat ion I70.212 Athscl ewiiaapaayp arteries of ex trm w intrmt damaris, left leg E11.69 Type 2 diabetes mellitus wit h other specified complication J44.1 Chronic obstructive pulmonar y disease w (acute) exacerbation Office Visit 12/16/2019 1:15p Main Office Pleskach, Criselda, GRID OPERATOR 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 I48.91 Unspecified atrial fibrillat ion I70.212 Athscl ewiiaapaayp arteries of ex trm w intrmt damaris, left leg E11.69 Type 2 diabetes mellitus wit h other specified complication J44.1 Chronic obstructive pulmonar y disease w (acute) exacerbation Office Visit 12/02/2019 4:00p Main Office 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 GRID OPERATOR I50.2 3 Acute on chronic systolic (congestive) heart failure Office Visit 11/24/2019 10:00a Main Office 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 GRID OPERATOR L03.1 16 Cellulitis of left lower limb R06.00 Dyspnea, unspecified Office Visit 10/20/2019 1:45p Main Office 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 GRID OPERATOR 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 E11.69 Type 2 diabetes mellitus wit h other specified complication I48.91 Unspecified atrial fibrillat ion E87.6 Hypokalemia E83.42 Hypomagnesemia R60.0 Localized edema I70.212 Athscl ewiiaapaayp arteries of ex trm w intrmt damaris, left leg J44.9 Chronic obstructive pulmonar y disease, unspecified Office Visit 09/20/2019 1:00p Main Office 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 GRID OPERATOR 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 E11.69 Type 2 diabetes mellitus wit h other specified complication E87.6 Hypokalemia E83.42 Hypomagnesemia J44.1 Chronic obstructive pulmonar y disease w (acute) exacerbation E66.01 Morbid (severe) obesity due to excess calories I48.91 Unspecified atrial fibrillat ion Office Visit 09/06/2019 11:30a Main Office 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 GRID OPERATOR E11.6 9 Type 2 diabetes mellitus with [...] hrt fail Assessments Date Code Description Provider 01/19/2020 Z00.00 Encounter for nelly baugh adult medical examination without abnormal findings Pleskach Criselda, GRID OPERATOR 01/19/2020 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 Pleskach, Criselda, GRID OPERATOR 01/19/2020 I48.91 Unspecified atrial fibrillation Pleskach, Criselda, GRID OPERATOR 01/19/2020 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, left leg Pleskach, Criselda, GRID OPERATOR 01/19/2020 E11.69 Type 2 diabetes mellitus with ot her specified complication Pleskach, Criselda, GRID OPERATOR 01/19/2020 J44.9 Chronic obstructive pulmonary di sease, unspecified Pleskach, Criselda, GRID OPERATOR 01/11/2020 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 Pleskach, Criselda, GRID OPERATOR 01/11/2020 I48.91 Unspecified atrial fibrillation Pleskach, Criselda, GRID OPERATOR 01/11/2020 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, left leg Pleskach, Criselda, GRID OPERATOR 01/11/2020 E11.69 Type 2 diabetes mellitus with ot her specified complication Pleskach, Criselda, GRID OPERATOR 01/11/2020 J44.1 Chronic obstructive pulmonary disease with (acute) exacerbation Pleskach, Criselda, GRID OPERATOR 12/16/2019 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 Pleskach, Criselda, GRID OPERATOR 12/16/2019 I48.91 Unspecified atrial fibrillation Pleskach, Criselda, GRID OPERATOR 12/16/2019 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, left leg Pleskach, Criselda, GRID OPERATOR 12/16/2019 E11.69 Type 2 diabetes mellitus with ot her specified complication Pleskach, Criselda, GRID OPERATOR 12/16/2019 J44.1 Chronic obstructive pulmonary disease with (acute) exacerbation Pleskach, Criselda, GRID OPERATOR 12/03/2019 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 Pleskach, Criselda, GRID OPERATOR 12/03/2019 I48.91 Unspecified atrial fibrillation Pleskach, Criselda, GRID OPERATOR 12/03/2019 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, left leg Pleskach, Criselda, GRID OPERATOR 12/03/2019 E11.69 Type 2 diabetes mellitus with ot her specified complication Pleskach, Criselda, GRID OPERATOR 12/03/2019 J44.1 Chronic obstructive pulmonary disease with (acute) exacerbation Pleskach, Criselda, GRID OPERATOR 12/02/2019 I50.23 Acute on chronic systolic (conge stive) heart failure Pleskach, Criselda, GRID OPERATOR 11/26/2019 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 Pleskach, Criselda, GRID OPERATOR 11/26/2019 I48.91 Unspecified atrial fibrillation Pleskach, Criselda, GRID OPERATOR 11/26/2019 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, left leg Pleskach, Criselda, GRID OPERATOR 11/26/2019 E11.69 Type 2 diabetes mellitus with ot her specified complication Pleskach, Criselda, GRID OPERATOR 11/24/2019 L03.116 Cellulitis of left lower limb Pl Criselda connor, GRID OPERATOR 11/24/2019 R06.00 Dyspnea, unspecified Pleskach, M svitlana, GRID OPERATOR 11/09/2019 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 Pleskach, Criselda, GRID OPERATOR 11/09/2019 E11.69 Type 2 diabetes mellitus with ot her specified complication Pleskach, Criselda, GRID OPERATOR 11/09/2019 I48.91 Unspecified atrial fibrillation Pleskach, Criselda, GRID OPERATOR 11/09/2019 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, left leg Pleskach, Criselda, GRID OPERATOR 11/09/2019 J44.1 Chronic obstructive pulmonary disease with (acute) exacerbation Pleskach, Criselda, GRID OPERATOR 10/20/2019 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 Pleskach, Criselda, GRID OPERATOR 10/20/2019 E11.69 Type 2 diabetes mellitus with ot her specified complication PleskachMoey, GRID OPERATOR 10/20/2019 I48.91 Unspecified atrial fibrillation PleskachMoey, GRID OPERATOR 10/20/2019 E87.6 Hypokalemia Pleskach Criselda, GRID OPERATOR 10/20/2019 E83.42 Hypomagnesemia Pleskach Criselda, GRID OPERATOR 10/20/2019 R60.0 Localized edema Pleskach Criselda, GRID OPERATOR 10/20/2019 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, left leg PleMoe gomezy, GRID OPERATOR 10/20/2019 J44.9 Chronic obstructive pulmonary di sease, unspecified Pleskach Criselda, GRID OPERATOR 10/18/2019 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 10/18/2019 E11.69 Type 2 diabetes mellitus with ot her specified complication Nuzhat Langley M.D. 10/18/2019 I48.91 Unspecified atrial fibrillation Nuzhat Langley M.D. 10/18/2019 E87.6 Hypokalemia Nuzhat Langley M.D. 10/18/2019 E83.42 Hypomagnesemia Nuzhat Langley M.D. 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 PleCriselda gomez, GRID OPERATOR 09/20/2019 E11.69 Type 2 diabetes mellitus with ot her specified complication PlemarioachoMey, GRID OPERATOR 09/20/2019 E87.6 Hypokalemia Plemarioach Criselda, GRID OPERATOR 09/20/2019 E83.42 Hypomagnesemia Plemarioach Criselda, GRID OPERATOR 09/20/2019 J44.1 Chronic obstructive pulmonary disease with (acute) exacerbation 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, GRID OPERATOR 09/20/2019 E66.01 Morbid (severe) obesity due to e xcess calories PleskMoe springery, GRID OPERATOR 09/20/2019 I48.91 Unspecified atrial fibrillation PleMoe gomezy, GRID OPERATOR 09/08/2019 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 09/08/2019 E83.42 Hypomagnesemia Nuzhat Langley M.D. 09/08/2019 E87.6 Hypokalemia Nuzhat Langley M.D. 09/08/2019 J44.1 Chronic obstructive pulmonary disease with (acute) exacerbation Nuzhat Langley M.D. 09/06/2019 E11.69 Type 2 diabetes mellitus with ot her specified complication 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, GRID OPERATOR 09/06/2019 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 FNP 09/06/2019 E87.6 Hypokalemia 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, GRID OPERATOR 09/06/2019 E83.42 Hypomagnesemia 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, GRID OPERATOR 09/06/2019 J44.1 Chronic obstructive pulmonary disease with (acute) exacerbation 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 FNP 09/06/2019 E66.01 Morbid (severe) obesity due to e xcess calories 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, GRID OPERATOR 09/06/2019 I48.91 Unspecified atrial fibrillation 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 FNP 07/21/2019 L03.116 Cellulitis of left lower limb Wi Nuzhat jennings M.D. 07/21/2019 I48.91 Unspecified atrial fibrillation Nuzhat Langley M.D. 07/21/2019 E11.69 Type 2 diabetes mellitus with ot her specified complication Nuzhat Langley M.D. 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 Plan of Treatment 01/19/2020 - 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 FNP* Z00.00 Encounter for general adult medical examination without abnormal findings* Comments:* Health maintenance up to date. Overall doing well. LAWRENCE/PHQ 9/CAGE questionnaire reviewed. Discussed healthy lifestyle choices. * I50.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* Comments:* edema has significantly improved since last week, patient feeling better. Continue torsemide 2 daily alternating with 2 in the am and one in the pm * Follow up:* 3 months * Recommendations:* Take torsemide two tablets every morning and one tablet every other afternoon * I48.91 Unspecified atrial fibrillation * I70.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 of ewiiaapaayp arteries of extremities with intermittent claudication, left leg * E11.69 Type 2 diabetes mellitus with other specified complication * J44.9 Chronic obstructive pulmonary disease, unspecified* New Medication:* Levofloxacin 750 mg - daily by mouth daily for 10 days Functional Status Functional Condition Comment Date Status Bifocal glasses Active Independent with all ADL's Activ e Complete lower and upper and lower dentures Active Independent with all IADL's Acti ve Mental Status Mental Condition Comment Date Status None Active Referrals Refer to Reason for Referral Status Appt Date [facility] referring for PAD, LLE redness and swelling and pain Closed 12/07/2019 [address] [facility], [address] [place] [address] [phone] [facility] referring for PAD, LLE redness and swelling and pain Patient Declined 12/21/[address] [place], [place] [address], [address] [place] [address] [phone]
--- OUTSIDE RECORDS SUMMARY | 2020-03-07 19:49 | CCD | Continuity of Care Document ---
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 FNP Onset: 10/20/2019 Type 2 diabetes mellitus [...] Use Denies Drug Use Smoking Status Reviewed: 12/16/19 Patient is a former smoker 1 ppd Exercise Type/Frequency Exercises regularly Sun Exposure Does not use sunscreen Seat Belt/Car Seat Always uses seat belt Smoke Alarms Yes Smoke Alarms Carbon Monoxide Detector: Yes Allergies, Adverse Reactions, Alerts Active Allergies Reaction Severity Comments Date Codeine 06/27/2003 Demerol 06/27/2003 Septra rash 11/24/2003 Doxycycline vomiting 09/10/2018 Medications Active Medications SIG Qnty Indications Ordering Provide r Date Torsemide 20mg Tablets take 1 tablet bid Unknown 12/08/2019 Metolazone 2.5mg Tablets 1 by mouth 1/2 hour before taking Torsemide every day Unknown 12/08/2019 Tylenol PM Extra Strength 500-25mg Tablets [...] with dinner 90tabs 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 FNP 0 Oxycodone-Acetaminophen 5-325mg Ta blets 1 tab by mouth every 6 hours as needed for leg pain Unknown 08/12/2019 O2 AT 2L/Min at bedtime via nasal cannula. Lupe raniCriselda santo FNP 08/09/2019 Potassium Chloride Keren ER 20Meq Tablets ER 1 by mouth every day Unknown 020 Acetaminophen 325mg Tablets 2 by mouth every 6 hours as needed for leg pain. Unknown 08/07/2019 Bupropion Hydrochloride ER (XL) 150mg Tablets ER 24HR take one tablet by mouth once a day 90tabs F32.9 Crsielda Herrera FNP 07/06/2019 Prednisone 5mg Tablets 1 tablet by mouth once a day Unknown 06/29/2019 Alcohol Prep 70% Pads use twice daily as directed before testing bs 1Box 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 FNP 12/03/2018 Fluticasone Propionate 50mcg/Act Suspension one spray each side of nose daily 32gm J30.9 Criselda Cabrera FNP 10/14/2018 Ipratropium Geddes/Albuterol Sulfate 0.5-2.5(3)mg/3ML Solution use 1 vial via nebulizer 4 times daily a s needed for coughing and wheezing 90ml 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 FNP 10/14 Neosporin Original 3.5-400-5000 Oi ntment apply to rash twice a day as needed 28.300gm R21 Emerson Herrera, [facility] 12/09/2017 Freestyle Lite Blood Glucose Monitoring System Device use for monitoring blood glucose twice a day, dx e11.9, prognosis good, duration 99 months 1units 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 FNP Freestyle Lite Test Strips use to check blood glucose 2 times a day, e11.9 200units Vivian Herrera K[employer] CUTTER 04/07/2017 Freestyle Lite Lancets Misc use to check fasting blood glusose twice daily, dx: e11.9 200units Criselda Ruelas FNP 04/07/2017 Citalopram Hydrobromide 40mg Table ts 1 tab by mouth every day 90tabs F32.9 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 FNP 03/13/19 18 Proair HFA 108(90Base) mcg/Act Aer osol 2 puffs every 4 hours as needed for wheezing and coughing 3units 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, DEMETRIA 04/12/2014 Lumigan 0.01% Solution one gtt. each eye at at bedtime Unknown Diltiazem HCL 60mg Tablets 1 tab by mouth once a hs Unknown Advair Diskus 500-50mcg/Dose Aeros ol inhale one puff by mouth every day 60units Vivian Herrera, [employer] C[employer]TER Xarelto 20mg Tablets 1 by mouth every day Jason Cosby FACC History Medications Torsemide 10mg Tablets take 1 tablet every morning Unknown 11/27/2019 - Levofloxacin 750mg Tablets daily by mouth daily for 10 days 10tabs 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 FNP 0 - 10/20/2019 Lasix 40mg Tablets take one tablet by mouth every morning and as needed in the afternoon 180tabs 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 FNP 08/20/2019 - 11/30/2019 Oxycodone HCL 5mg Tablets 1 tab by mouth every 6 hours as needed for left leg pain Not to exceed 20 mg /24 hours. 5tabs Unknown 08/07/2019 - 020 Senna-Docusate Sodium 8.6-50mg Tab lets 1 tab once a day Unknown 08/07/2019 - Metolazone 2.5mg Tablets 1 by mouth 1/2 hour prior to lasix or Torsemide every day Unkno wn 08/07/2019 - 08/13/2019 Torsemide 20mg Tablets take 1 tablet every morning R60.0 Unknown 08/07/2019 - Penicillin V Potassium 500mg Table ts 1 tab by mouth two times a day x 14 days Unknown 08/07/2019 - 08/21/2019 Levaquin 750 mg tab Take 1 tab once a day x 14 days Unknown 08/07/2019 - 08/21/2019 Acetaminophen 325mg Tablets 2 by mouth every 4 hours as needed for pain/fever Unknown 07/19/2019 - 08/09/2019 Furosemide 20mg Tablets take one tablet by mouth twice a day R60.0 Unknown 07/19/2019 - 0 08/09/2019 Tizanidine HCL 4mg Capsules 1 by mouth three times a day as needed for muscle spasm Unk nown 07/19/2019 - 11/30/2019 Benadryl Allergy 25mg Capsules one tab by mouth every night at bedtime as needed for sleep along with Tylenol 650 mg. Unknown 07/19/2019 - 07/21/2019 Tylenol PM Extra Strength 500-25mg Tablets take 1 tablets before bed as scheduled Un known 07/19/2019 - 07/21/2019 Immunizations CPT Code Status Date Vaccine Lot # [id number] Given 03/25/2018 Pneumococcal Vaccine [id number] Given 12/09/2017 Influenza Virus Vaccine, Quadrivalent,age 3 and up,multidose vial [id number] Given 12/04/2016 Influenza Vaccine (Fluzone)( medicare) [id number] Q2038 Given 11/14/2015 Influenza Vaccine (Fluzone)( medicare) [id number] Given 10/12/2015 Prevnar 13 For Adults 69435 Given 11/17/2013 Influenza Vaccination [id number] Given 11/18/2007 Influenza Vaccination [id number] 32708 Given 12/12/2006 Influenza Vaccination [id number] Vital Signs Date Vital Result Comment 12/16/2019 1:37pm BP Systolic 109 mmHg BP Diastolic 53 mmHg Heart Rate 70 /min Body Temperature 97.3 F Respiratory Rate 22 /min Height 61.5 inches 5'1.50" Weight 251.38 lb O2 % BldC Oximetry 94 % on room air Peak Expiratory Flow Rate 292 Estimated Peak Flow Rate [place] Body Weight 105 lb BMI (Body Mass Index) 46.7 kg/m2 12/02/2019 3:59pm BP Systolic 116 mmHg BP Diastolic 65 mmHg Heart Rate 83 /min Body Temperature 97.2 F Respiratory Rate 24 /min Height 61.5 inches 5'1.50" Weight 266.00 lb O2 % BldC Oximetry 95 % Peak Expiratory Flow Rate 293 Estimated Peak Flow Rate [place] Body Weight 105 lb BMI (Body Mass Index) 49.4 kg/m2 Results Test Acquired Date Facility Test Result H/L Range Note Laboratory test finding 12/02/2019 [place] [address] [phone] Sars Covid-19 Amplification NEGATIVE Normal Nega tive 1 Venous Blood Gas 12/02/2019 [place] [address] [phone] Venous PH 7.482 units High 7.330-7.430 Venous Partial Pressure Co2 37.5 mmHg Low 38.0-50.0 Venous Partial Pressure O2 135.7 mmHg High 30.0-50.0 Venous Total Co2 28.6 mEq/L High 24.0-28.0 Venous Hco3 27.4 mEq/L High 23.0-27.0 Venous Base Excess 3.9 High -2.0-2.0 Venous Standard Hco3 28.0 mEq/L Normal Venous O2 Saturation 98.9 % High 60.0-80.0 CBC With Differential 12/02/2019 [place] [address] [phone] White Blood Count 8.8 10 Normal 4.0-10.0 [...] 36.0-66.0 Lymph % 10.9 % Low 24.0-44.0 Gray % 7.1 % High 0.0-5.0 Eos % 1.9 % Normal 0.0-3.0 Baso % 0.5 % Normal 0.0-1.0 Immature Granulocyte % 0.6 % Normal 0-3.0 Nucleated Red Blood Cell % 0.0 % Normal 0-0 Neutrophils # 6.9 10 Normal 1.5-8.5 Lymph # 1.0 10 Low 1.5-5.0 Gray # 0.6 10 Normal 0.0-0.8 Eos # 0.2 10 Normal 0.0-0.5 Baso # 0.0 10 Normal 0.0-0.2 Prothrombin Time/Inr 12/02/[address] [facility] [place] [address] [phone] Prothrombin Time 19.4 seconds High 12.5-14.3 Inr 1.60 Normal 2 Liver Profile 12/02/2019 [place] [address] [phone] Ast/Sgot 7 U/L Normal 7-37 Alt/SGPT 11 U/L Low 12-78 Alkaline Phosphatase 59 U/L Normal 45-117 Bilirubin,Total 0.7 mg/dL Normal 0.2-1.0 Bilirubin,Direct 0.3 mg/dL High 0.0-0.2 Total Protein 5.6 GM/DL Low 6.4-8.2 Albumin 3.2 GM/DL Normal 3.2-5.2 Albumin/Globulin Ratio 1.3 Normal 1.2-2.2 Laboratory test finding 12/02/2019 [place] [address] [phone] NT-Pro BNP 377 pg/mL Normal <450 Phenobarbital Level 2.1 UG/ML Low 15.0-40.0 Thyroid Stimulating Hormone 1.970 uIU/ML Normal 0.358-3.740 Lactic Acid Sepsis Protocol 1.4 mmol/L Normal 0.4-2.0 3 Laboratory test finding 12/02/2019 [place] [address] [phone] iSTAT Troponin 0.00 NG/ML Normal 0.00-0.08 Istat Chem8+ Panel 12/02/2019 [place] [address] [phone] iSTAT HCT 31.0 % Low 38.0-51.0 iSTAT Glucose 116 mg/dL High 70-105 iSTAT Sodium 140 mEq/L Normal 136-145 iSTAT Potassium 3.8 mEq/L Normal 3.5-5.1 iSTAT CA++ 4.8 mg/dL Normal 4.5-5.3 iSTAT Chloride 99 mEq/L Normal 98-109 iSTAT Co2 28.0 MM/L High 23.0-27.0 iSTAT BUN 17 mg/dL Normal 8-26 iSTAT Creatinine 1.1 mg/dL Normal 0.6-1.3 Laboratory test finding 11/24/2019 [place] [address] [phone] NT-Pro BNP 244 pg/mL Normal <450 Thyroid Stimulating Hormone 2.460 uIU/ML Normal 0.358-3.740 C Reactive Protein Quantitativ 0.77 mg/dL High 0.00-0.30 Basic Metabolic Profile 11/24/2019 [place] [address] [phone] Glucose, Fasting 139 mg/dL High 70-100 Blood [...] Normal 8.8-10.2 Liver Profile 11/24/2019 [place] [address] [phone] Ast/Sgot 7 U/L Normal 7-37 Alt/SGPT 12 U/L Normal 12-78 Alkaline Phosphatase 56 U/L Normal 45-117 Bilirubin,Total 0.9 mg/dL Normal 0.2-1.0 Bilirubin,Direct 0.3 mg/dL High 0.0-0.2 Total Protein 5.5 GM/DL Low 6.4-8.2 Albumin 3.2 GM/DL Normal 3.2-5.2 Albumin/Globulin Ratio 1.4 Normal 1.2-2.2 Cardiac Marker Panel 11/24/2019 Patient Service [facility] [place] [address] [phone] CPK Creatine Phosphokinase 26 U/L Normal 26-19 2 CK-MB Value Mass 1.2 NG/ML Normal <3.6 MB/CK Relative Index 4.62 High < Or =4 5 Troponin I < 0.02 NG/ML Normal < 0.10 6 Laboratory test finding 11/24/2019 [place] [address] [phone] Erythrocyte Sedimentation Rate 11 mm/hr Normal 0 -30 CBC With Differential 11/24/2019 [place] [address] [phone] White Blood Count 8.2 10 Normal 4.0-10.0 [...] 36.0-66.0 Lymph % 10.7 % Low 24.0-44.0 Gray % 5.6 % High 0.0-5.0 Eos % 2.1 % Normal 0.0-3.0 Baso % 0.5 % Normal 0.0-1.0 Immature Granulocyte % 0.6 % Normal 0-3.0 Nucleated Red Blood Cell % 0.0 % Normal 0-0 Neutrophils # 6.6 10 Normal 1.5-8.5 Lymph # 0.9 10 Low 1.5-5.0 Gray # 0.5 10 Normal 0.0-0.8 Eos # 0.2 10 Normal 0.0-0.5 Baso # 0.0 10 Normal 0.0-0.2 Laboratory test finding 10/10/2019 [place] [address] [phone] NT-Pro BNP 264 pg/mL Normal <450 Thyroxine (T4) 8.4 g/dL Normal 4.5-12.0 Thyroid Stimulating Hormone 1.340 uIU/ML Normal 0.358-3.740 Basic Metabolic Profile 10/10/2019 [place] [address] [phone] Glucose, Fasting 108 mg/dL High 70-100 Blood [...] Liver Profile 10/10/2019 [place] [address] [phone] Ast/Sgot 11 U/L Normal 7-37 Alt/SGPT 10 U/L Low 12-78 Alkaline Phosphatase 56 U/L Normal 45-117 Bilirubin,Total 0.6 mg/dL Normal 0.2-1.0 Bilirubin,Direct 0.2 mg/dL Normal 0.0-0.2 Total Protein 5.7 GM/DL Low 6.4-8.2 Albumin 3.4 GM/DL Normal 3.2-5.2 Albumin/Globulin Ratio 1.5 Normal 1.2-2.2 Cardiac Marker Panel 10/10/[address] [place] [address] [phone] CPK Creatine Phosphokinase 25 U/L Low 26-19 2 CK-MB Value Mass 1.0 NG/ML Normal <3.6 MB/CK Relative Index 4.00 Normal < Or =4 8 Troponin I < 0.02 NG/ML Normal < 0.10 9 Laboratory test finding 10/10/2019 [place] [address] [phone] Lactic Acid Sepsis Protocol 2.0 mmol/L Normal 0.4- 2.0 10 CBC With Differential 10/10/2019 [place] [address] [phone] White Blood Count 9.0 10 Normal 4.0-10.0 [...] 36.0-66.0 Lymph % 13.0 % Low 24.0-44.0 Gray % 5.9 % High 0.0-5.0 Eos % 0.2 % Normal 0.0-3.0 Baso % 0.2 % Normal 0.0-1.0 Immature Granulocyte % 0.7 % Normal 0-3.0 Nucleated Red Blood Cell % 0.0 % Normal 0-0 Neutrophils # 7.2 10 Normal 1.5-8.5 Lymph # 1.2 10 Low 1.5-5.0 Gray # 0.5 10 Normal 0.0-0.8 Eos # 0.0 10 Normal 0.0-0.5 Baso # 0.0 10 Normal 0.0-0.2 Venous Blood Gas 10/10/2019 [place] [address] [phone] Venous PH 7.380 units Normal 7.330-7.430 Venous Partial Pressure Co2 42.1 mmHg Normal 38.0-50.0 Venous Partial Pressure O2 66.4 mmHg High 30.0-50.0 Venous Total Co2 24.3 mEq/L Normal 24.0-28.0 Venous Hco3 24.3 mEq/L Normal 23.0-27.0 Venous Base Excess -0.8 Normal -2.0-2.0 Venous Standard Hco3 23.7 mEq/L Normal Venous O2 Saturation 91.3 % High 60.0-80.0 Hemoglobin A1c 08/29/2019 [facility] [phone] Hemoglobin A1c 8.1 % Normal 11 Estimated Average Glucose 186 mg/dL High 60-110 Lipid Panel 08/29/2019 [facility] [phone] Triglycerides Level 75 mg/dL Normal <150 Cholesterol Level 121 mg/dL Normal <200 HDL Cholesterol 50 mg/dL Normal >40 LDL Cholesterol 56 mg/dL Normal <100 Non-HDL-C 71 mg/dL Normal Cholesterol Risk Ratio 2.420 Normal <5 Comprehensive Metabolic Profil 08/29/2019 [facility] [phone] Glucose, Fasting 132 mg/dL High 70-100 Blood [...] 1.4 Normal 1.2-2.2 Laboratory test finding 08/29/2019 [facility] [phone] Magnesium Level 2.0 mg/dL Normal 1.8-2.4 Basic Metabolic Profile 08/23/2019 [place] [address] [phone] Glucose, Fasting 163 mg/dL High 70-100 Blood [...] 8-16 Calcium Level 9.4 mg/dL Normal 8.8-10.2 Laboratory test finding 07/27/2019 [place] [address] [phone] Vancomycin Level Trough 11.9 UG/ML Normal 10.0-20. 0 C Reactive Protein Quantitativ 1.74 mg/dL High 0.00-0.30 Basic Metabolic Profile 07/27/2019 [place] [address] [phone] Glucose, Fasting 159 mg/dL High 70-100 Blood [...] 8.8-10.2 Laboratory test finding 07/27/2019 [place] [address] [phone] Erythrocyte Sedimentation Rate 23 mm/hr Normal 0 -30 Complete Blood Count 07/27/2019 [place] [address] [phone] White Blood Count 10.9 10 High 4.0-10.0 [...] Blood Cell % 0.3 % High 0-0 Basic Metabolic Profile 07/20/2019 [place] [address] [phone] Glucose, Fasting 142 mg/dL High 70-100 Blood Urea Nitrogen 18 mg/dL Normal 7-18 Creatinine For GFR 0.99 mg/dL Normal 0.55-1.30 Glomerular Filtration Rate 57.9 Normal >39 1 5 Sodium Level 138 mEq/L Normal 136-145 Potassium Serum 4.2 mEq/L Normal 3.5-5.1 Chloride Level 103 mEq/L Normal 98-107 Carbon Dioxide Level 33 mEq/L High 21-32 Anion Gap 2 mEq/L Low 8-16 Calcium Level 8.5 mg/dL Low 8.8-10.2 Laboratory test finding 07/20/2019 [place] [address] [phone] C Reactive Protein Quantitativ 3.25 mg/dL High 0 .00-0.30 CBC With Differential 07/20/2019 [place] [address] [phone] White Blood Count 13.2 10 High 4.0-10.0 Red Blood Count 3.63 10 Low 4.00-5.40 Hemoglobin 10.0 g/dL Low 12.0-15.5 Hematocrit 32.5 % Low 36.0-47.0 Mean Corpuscular Volume 89.5 fl Normal 80.0-96.0 Mean Corpuscular Hemoglobin 27.5 pg Normal 27.0-33.0 Mean Corpuscular HGB Conc 30.8 g/dL Low 32.0-36.5 Red Cell Distribution Width 16.1 % High 11.5-14.5 Platelet Count, Automated 199 10 Normal 150-450 Neutrophils % 79.8 % High 36.0-66.0 Lymph % 10.2 % Low 24.0-44.0 Gray % 6.1 % High 0.0-5.0 Eos % 1.7 % Normal 0.0-3.0 Baso % 0.5 % Normal 0.0-1.0 Immature Granulocyte % 1.7 % Normal 0-3.0 Nucleated Red Blood Cell % 0.0 % Normal 0-0 Neutrophils # 10.5 10 High 1.5-8.5 Lymph # 1.3 10 Low 1.5-5.0 Gray # 0.8 10 Normal 0.0-0.8 Eos # 0.2 10 Normal 0.0-0.5 Baso # 0.1 10 Normal 0.0-0.2 Laboratory test finding 07/20/2019 [place] [address] [phone] Erythrocyte Sedimentation Rate 41 mm/hr High 0 -30 Prothrombin Time/Inr 07/06/[address] [place] [address] [phone] Prothrombin Time 21.1 seconds High 11.8-14.0 Inr 1.85 Normal 16 Laboratory test finding 07/06/2019 [place] [address] [phone] Partial Thromboplastin Time 33.2 seconds Normal 25 .0-38.4 CBC With Differential 07/06/2019 [place] [address] [phone] White Blood Count 12.4 10 High 4.0-10.0 Red Blood Count 4.34 10 Normal 4.00-5.40 Hemoglobin 12.3 g/dL Normal 12.0-15.5 Hematocrit 38.8 % Normal 36.0-47.0 Mean Corpuscular Volume 89.4 fl Normal 80.0-96.0 Mean Corpuscular Hemoglobin 28.3 pg Normal 27.0-33.0 Mean Corpuscular HGB Conc 31.7 g/dL Low 32.0-36.5 Red Cell Distribution Width 16.5 % High 11.5-14.5 Platelet Count, Automated 151 10 Normal 150-450 Neutrophils % 81.7 % High 36.0-66.0 Lymph % 9.8 % Low 24.0-44.0 Gray % 6.1 % High 0.0-5.0 Eos % 0.6 % Normal 0.0-3.0 Baso % 0.3 % Normal 0.0-1.0 Immature Granulocyte % 1.5 % Normal 0-3.0 Nucleated Red Blood Cell % 0.0 % Normal 0-0 Neutrophils # 10.1 10 High 1.5-8.5 Lymph # 1.2 10 Low 1.5-5.0 Gray # 0.8 10 Normal 0.0-0.8 Eos # 0.1 10 Normal 0.0-0.5 Baso # 0.0 10 Normal 0.0-0.2 Laboratory test finding 07/06/2019 [place] [address] [phone] Erythrocyte Sedimentation Rate 23 mm/hr Normal 0 -30 Liver Profile 07/06/2019 Patient Service [place] [address] [phone] Ast/Sgot 7 U/L Normal 7-37 Alt/SGPT 17 U/L Normal 12-78 Alkaline Phosphatase 54 U/L Normal 45-117 Bilirubin,Total 0.7 mg/dL Normal 0.2-1.0 Bilirubin,Direct 0.3 mg/dL High 0.0-0.2 Total Protein 5.5 GM/DL Low 6.4-8.2 Albumin 3.1 GM/DL Low 3.2-5.2 Albumin/Globulin Ratio 1.3 Normal 1.2-2.2 Basic Metabolic Profile 07/06/2019 [place] [address] [phone] Glucose, Fasting 152 mg/dL High 70-100 Blood Urea Nitrogen 17 mg/dL Normal 7-18 Creatinine For GFR 1.08 mg/dL Normal 0.55-1.30 Glomerular Filtration Rate 52.4 Normal >39 1 7 Sodium Level 137 mEq/L Normal 136-145 Potassium Serum 4.3 mEq/L Normal 3.5-5.1 Chloride Level 102 mEq/L Normal 98-107 Carbon Dioxide Level 29 mEq/L Normal 21-32 Anion Gap 6 mEq/L Low 8-16 Calcium Level 8.6 mg/dL Low 8.8-10.2 Laboratory test finding 07/06/2019 [place] [address] [phone] C Reactive Protein Quantitativ 6.10 mg/dL High 0 .00-0.30 Lactic Acid Sepsis Protocol 2.1 mmol/L Critical high 0.4-2.0 18 1 A false negative result may occur [...] pathogens. DISCLAIMER: Testing was performed using the [employer] SARS-CoV-2 test. This test was developed and its performance characteristics determined by [employer]. This test has not been FDA cleared [...] Little GFR Left ESRD GFR <15 on [employer] NUTRITIONIST 5 DIAGNOSIS CRITERIA MMB ng/ml Relative Index (RI) NON-AMI < or = 5 N/A GOYAL ZONE > 5 < or = 4 AMI > 5 > 4 6 Troponin I Reference Interva l for [place] LOCI: 99th Percentile= 0.00-0.045 ng/ml Risk Stratification: [...] Little GFR Left ESRD GFR <15 on LIVESTOCK NUTRITIONIST 8 DIAGNOSIS CRITERIA MMB ng/ml Relative Index (RI) NON-AMI < or = 5 N/A GOYAL ZONE > 5 < or = 4 AMI > 5 > 4 9 Troponin I Reference Interva l for Siemens [place] LOCI: 99th Percentile= 0.00-0.045 ng/ml Risk Stratification: [...] Little GFR Left ESRD GFR <15 on [employer] NUTRITIONIST 13 Units are mL/min/1.73 m2 Chronic Kidney Disease Staging per NKF: Stage I & II GFR >=60 Normal to Mildly Decreased Stage III GFR 30-59 Moderately Decreased Stage IV GFR 15-29 Severely Decreased Stage V GFR <15 Very Little GFR Left ESRD GFR <15 on LIVESTOCK NUTRITIONIST 14 Units are mL/min/1.73 m2 Chronic Kidney Disease Staging per NKF: Stage I & II GFR >=60 Normal to Mildly Decreased Stage III GFR 30-59 Moderately Decreased Stage IV GFR 15-29 Severely Decreased Stage V GFR <15 Very Little GFR Left ESRD GFR <15 on LIVESTOCK NUTRITIONIST 15 Units are mL/min/1.73 m2 Chronic Kidney Disease Staging per NKF: Stage I & II GFR >=60 Normal to Mildly Decreased Stage III GFR 30-59 Moderately Decreased Stage IV GFR 15-29 Severely Decreased Stage V GFR <15 Very Little GFR Left ESRD GFR <15 on L[employer]OCK NUTRITIONIST 16 THERAPUTIC HUMAN INR VALUES INDICATIONS NORMAL [...] Little GFR Left ESRD GFR <15 on L[facility] NUTRITIONIST 18 Y/N query for Sepsis Lactate Rule: Y Procedures Date Code Description Status 03/25/2018 [id number] Diabetic Foot Exam Completed 09/12/2017 [id number] Mammogram Completed 05/09/2014 [id number] Mammogram Completed 04/27/2014 [id number] Mammogram Completed 12/10/2010 [id number] Mammogram Completed Medical Devices Description No Information Available Encounters Type Date Location Provider Dx Diagnosis Office Visit 12/16/2019 1:15p Main Office Pleskach, Criselda, KNOT CUTTER 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 I48.91 Unspecified atrial fibrillat ion I70.212 Athscl resighini arteries of ex trm w intrmt damaris, left leg E11.69 Type 2 diabetes mellitus wit h other specified complication J44.1 Chronic obstructive pulmonar y disease w (acute) exacerbation Office Visit 12/02/2019 4:00p Main Office Pleskach Criselda, KNOT CUTTER I50.2 3 Acute on chronic systolic (congestive) heart failure Office Visit 11/24/2019 10:00a Main Office Pleskach, Criselda, KNOT CUTTER L03.1 16 Cellulitis of left lower limb R06.00 Dyspnea, unspecified Office Visit 10/20/2019 1:45p Main Office Pleskach, Criselda, KNOT CUTTER 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 E11.69 Type 2 diabetes mellitus wit h other specified complication I48.91 Unspecified atrial fibrillat ion E87.6 Hypokalemia E83.42 Hypomagnesemia R60.0 Localized edema I70.212 Athscl resighini arteries of ex trm w intrmt damaris, left leg J44.9 Chronic obstructive pulmonar y disease, unspecified Office Visit 09/20/2019 1:00p Main Office Pleskach, Criselda, KNOT CUTTER 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 E11.69 Type 2 diabetes mellitus wit h other specified complication E87.6 Hypokalemia E83.42 Hypomagnesemia J44.1 Chronic obstructive pulmonar y disease w (acute) exacerbation E66.01 Morbid (severe) obesity due to excess calories I48.91 Unspecified atrial fibrillat ion Office Visit 09/06/2019 11:30a Main Office Pleskach, Criselda, KNOT CUTTER E11.6 9 Type 2 diabetes mellitus with [...] combined systolic an d diastolic hrt fail Office Visit 07/06/2019 1:00p Main Office 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 FNP Z13.8 9 Encounter for screening for other disorder L03.116 Cellulitis of left lower nascimento b E87.6 Hypokalemia E83.42 Hypomagnesemia Assessments Date Code Description Provider 12/16/2019 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 PlemarioachMoey, K[employer] CUTTER 12/16/2019 I48.91 Unspecified atrial fibrillation Pleskach Criselda, [employer] 12/16/2019 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, left leg PleCriselda gomez, [employer] 12/16/2019 E11.69 Type 2 diabetes mellitus with ot her specified complication Pleskach, Criselda, KNOT CUTTER 12/16/2019 J44.1 Chronic obstructive pulmonary disease with (acute) exacerbation PleskachCriselda, [employer] C[employer]TER 12/03/2019 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 Pleskach Criselda, [employer] C[employer]TER 12/03/2019 I48.91 Unspecified atrial fibrillation Pleskach, Criselda, [employer] C[employer]TER 12/03/2019 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, left leg Pleskach, Criselda, K[employer] C[employer]TER 12/03/2019 E11.69 Type 2 diabetes mellitus with ot her specified complication Pleskach, Criselda, K[employer] CUTTER 12/03/2019 J44.1 Chronic obstructive pulmonary disease with (acute) exacerbation Pleskach Criselda, [employer]TER 12/02/2019 I50.23 Acute on chronic systolic (conge stive) heart failure 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, [facility] 11/24/2019 L03.116 Cellulitis of left lower limb Pl Criselda connor, [facility] 11/24/2019 R06.00 Dyspnea, unspecified PleLesly gomez, [facility] 11/09/2019 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 PleCriselda gomez, [employer] 11/09/2019 E11.69 Type 2 diabetes mellitus with ot her specified complication PleCriselda gomez, [employer] 11/09/2019 I48.91 Unspecified atrial fibrillation PleCriselda gomez, [employer] C[employer] 11/09/2019 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, left leg 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, [employer] 11/09/2019 J44.1 Chronic obstructive pulmonary disease with (acute) exacerbation MerlinmarioCriselda springer, [facility] 10/20/2019 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, [employer] 10/20/2019 E11.69 Type 2 diabetes mellitus with ot her specified complication 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, [employer] 10/20/2019 I48.91 Unspecified atrial fibrillation 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, [facility] 10/20/2019 E87.6 Hypokalemia 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, [facility] 10/20/2019 E83.42 Hypomagnesemia PleCriselda gomez, [facility] 10/20/2019 R60.0 Localized edema PleskCriselda springer, [facility] 10/20/2019 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, left leg PleCriselda gomez, [facility] 10/20/2019 J44.9 Chronic obstructive pulmonary di sease, unspecified PleskachMoey, K[employer] CUTTER 10/18/2019 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 10/18/2019 E11.69 Type 2 diabetes mellitus with ot her specified complication Nuzhat Langley M.D. 10/18/2019 I48.91 Unspecified atrial fibrillation Nuzhat Langley M.D. 10/18/2019 E87.6 Hypokalemia Nuzhat Langley M.D. 10/18/2019 E83.42 Hypomagnesemia Nuzhat Langley M.D. 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 Pleskgian Criselda, K[employer] CUTTER 09/20/2019 E11.69 Type 2 diabetes mellitus with ot her specified complication Pleskach, Criselda, [employer] C[employer] 09/20/2019 E87.6 Hypokalemia Pleskach, Criselda, [employer] C[employer]TER 09/20/2019 E83.42 Hypomagnesemia Pleskach, Criselda, [employer] C[employer] 09/20/2019 J44.1 Chronic obstructive pulmonary disease with (acute) exacerbation Pleskach, Criselda, [employer] 09/20/2019 E66.01 Morbid (severe) obesity due to e xcess calories PleMoe gomezy, [employer] C[employer] 09/20/2019 I48.91 Unspecified atrial fibrillation Pleskach Criselda, [employer] C[employer] 09/08/2019 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 09/08/2019 E83.42 Hypomagnesemia Nuzhat Langley M.D. 09/08/2019 E87.6 Hypokalemia Nuzhat Langley M.D. 09/08/2019 J44.1 Chronic obstructive pulmonary disease with (acute) exacerbation Nuzhat Langley M.D. 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 07/21/2019 I48.91 Unspecified atrial fibrillation Nuzhat Langley M.D. 07/21/2019 E11.69 Type 2 diabetes mellitus with ot her specified complication Nuzhat Langley M.D. 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 07/15/2019 E11.69 Type 2 diabetes mellitus with ot her specified complication Nuzhat Langley M.D. 07/15/2019 I48.91 Unspecified atrial fibrillation Nuzhat Langley M.D. 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 07/15/2019 E87.6 Hypokalemia Nuzhat Langley M.D. 07/06/2019 Z13.89 Encounter for screening for othe r disorder 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 FNP 07/06/2019 L03.116 Cellulitis of left lower limb Pl Criselda connor FNP 07/06/2019 E87.6 Hypokalemia 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 FNP 07/06/2019 E83.42 Hypomagnesemia 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 FNP Plan of Treatment Future Appointment(s):* 01/19/2020 2:00 pm - 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 FNP at Main Office Functional Status Functional Condition Comment Date Status Bifocal glasses Active Independent with all ADL's Activ e Complete lower and upper and lower dentures Active Independent with all IADL's Acti ve Mental Status Mental Condition Comment Date Status None Active Referrals Refer to Reason for Referral Status Appt Date [facility] referring for PAD, LLE redness and swelling and pain Closed 12/07/[address] [place] [address], [address] [place] [id number] [phone] [facility] referring for PAD, LLE redness and swelling and pain Patient Declined 12/21/[address] [place] [address] [phone] Roberto Blount MD former pt of dr cosby/brant, wants to transfer her cardiac care to dr. blount. pt is aware she needs to contact brant's office and have all her records sent to you. Sent [address] [place] [address] [phone]
--- OUTSIDE RECORDS SUMMARY | 2020-03-07 19:49 | CCD | Continuity of Care Document ---
Author Author Sana HERRERA [facility] Organization Unknown Address [address] [place] [address] Phone [phone] Care Team Providers Care Communications Programmer Name Role Phone Dhaval Manuel MD AUTM [phone] Nuzhat Langley MD AUTM [phone] Roberto Wallace MD AUTM [phone] [facility] - Surgery AUTM [phone] Problems Active Problems Provider Date Essential hypertension [...] Chronic combined systolic and diastolic heart failure Carmelagreg santoCriselda FNP Onset: 10/20/2019 Intermittent claudication due [...] Provide r Date Torsemide 20mg Tablets take 1-2 tablet twice [...] 32gm J30.9 Criselda Cabrera FNP 10/14/2018 Ipratropium [place]/Albuterol Sulfate 0.5-2.5(3)mg/3ML Solution use 1 vial via nebulizer 4 times daily a s needed for coughing and wheezing 90ml 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 FNP 10/14 Neosporin Original 3.5-400-5000 Oi ntment apply to rash twice a day as needed 28.300gm R21 Emerson Herrera, SUMMER ANALYST 12/09/2017 Freestyle Lite Blood Glucose Monitoring System Device use for monitoring blood glucose twice a day, dx e11.9, prognosis good, duration 99 months 1units Criselda Herrera FNP Freestyle Lite Test Strips use to check blood glucose 2 times a day, e11.9 200units Vivian Herrera FNP 04/07/2017 Freestyle Lite Lancets Misc use to check fasting blood glusose twice daily, dx: e11.9 200units Criselda Ruelas FNP 04/07/2017 Citalopram Hydrobromide 40mg Table ts 1 tab by mouth every day 90tabs F32.9 Criselda Herrera FNP 03/13/19 18 Proair HFA 108(90Base) mcg/Act Aer osol 2 puffs every 4 hours as needed for wheezing and coughing 3units Criselda Herrera, [facility] 04/12/2014 Lumigan 0.01% Solution one gtt. each eye at at bedtime Unknown Diltiazem HCL 60mg Tablets 1 tab by mouth once a at bedtime 90tabs Criselda Herrera, DEMETRIA 0 Advair Diskus 500-50mcg/Dose Aeros ol inhale one puff by mouth every day 60units Vivian Herrera, SUMMER ANALYST Xarelto 20mg Tablets 1 by mouth every day Jason Cosby [facility] History Medications Torsemide 10mg Tablets take 1 [...] CPT Code Status Date Vaccine Lot # [id number] Given 03/25/2018 Pneumococcal Vaccine [id number] 53549 Given 12/09/2017 Influenza Virus Vaccine, Quadrivalent,age 3 and up,multidose vial [id number] Q2038 Given 12/04/2016 Influenza Vaccine (Fluzone)( medicare) [id number] Given 11/14/2015 Influenza Vaccine (Fluzone)( medicare) [id number] 77765 Given 10/12/2015 Prevnar 13 For Adults 00178 Given 11/17/2013 Influenza Vaccination 36858 Given 11/18/2007 Influenza Vaccination [id number] 52186 Given 12/12/2006 Influenza Vaccination [id number] Vital Signs Date Vital Result Comment 01/11/2020 3:53pm BP Systolic 120 mmHg BP Diastolic 61 mmHg Heart Rate 100 /min Body Temperature 96.9 F Respiratory Rate 26 /min Height 61.5 inches 5'1.50" Weight 253.38 lb O2 % BldC Oximetry 95 % Peak Expiratory Flow Rate 292 Estimated Peak Flow Rate [place] Body Weight 105 lb BMI (Body Mass Index) 47.1 kg/m2 12/16/2019 1:37pm BP Systolic 109 mmHg BP Diastolic 53 mmHg Heart Rate 70 /min Body Temperature 97.3 F Respiratory Rate 22 /min Height 61.5 inches 5'1.50" Weight 251.38 lb O2 % BldC Oximetry 94 % on room air Peak Expiratory Flow Rate 292 Estimated Peak Flow Rate [place] Body Weight 105 lb BMI (Body Mass Index) 46.7 kg/m2 Results Test Acquired Date Facility Test Result H/L Range Note Laboratory test finding 12/02/2019 Patient Service Center [facility] [place] [address] [phone] Sars Covid-19 Amplification NEGATIVE Normal Nega tive 1 Venous Blood Gas 12/02/2019 Patient Service Cent er [facility] [place] [address] [phone] Venous PH 7.482 units High 7.330-7.430 Venous Partial Pressure Co2 37.5 mmHg Low 38.0-50.0 Venous Partial Pressure O2 135.7 mmHg High 30.0-50.0 Venous Total Co2 28.6 mEq/L High 24.0-28.0 Venous Hco3 27.4 mEq/L High 23.0-27.0 Venous Base Excess 3.9 High -2.0-2.0 Venous Standard Hco3 28.0 mEq/L Normal Venous O2 Saturation 98.9 % High 60.0-80.0 CBC With Differential 12/02/2019 Patient Service Ce nter [facility] [place] [address] [phone] White Blood Count 8.8 10 Normal 4.0-10.0 [...] 36.0-66.0 Lymph % 10.9 % Low 24.0-44.0 Dickens % 7.1 % High 0.0-5.0 Eos % 1.9 % Normal 0.0-3.0 Baso % 0.5 % Normal 0.0-1.0 Immature Granulocyte % 0.6 % Normal 0-3.0 Nucleated Red Blood Cell % 0.0 % Normal 0-0 Neutrophils # 6.9 10 Normal 1.5-8.5 Lymph # 1.0 10 Low 1.5-5.0 Dickens # 0.6 10 Normal 0.0-0.8 Eos # 0.2 10 Normal 0.0-0.5 Baso # 0.0 10 Normal 0.0-0.2 Prothrombin Time/Inr 12/02/[address] [place] [address] [phone] Prothrombin Time 19.4 seconds High 12.5-14.3 Inr 1.60 Normal 2 Liver Profile 12/02/2019 [place] [address] [phone] Ast/Sgot 7 U/L Normal 7-37 Alt/SGPT 11 U/L Low 12-78 Alkaline Phosphatase 59 U/L Normal 45-117 Bilirubin,Total 0.7 mg/dL Normal 0.2-1.0 Bilirubin,Direct 0.3 mg/dL High 0.0-0.2 Total Protein 5.6 GM/DL Low 6.4-8.2 Albumin 3.2 GM/DL Normal 3.2-5.2 Albumin/Globulin Ratio 1.3 Normal 1.2-2.2 Laboratory test finding 12/02/2019 [place] [address] [phone] NT-Pro BNP 377 pg/mL Normal <450 Phenobarbital Level 2.1 UG/ML Low 15.0-40.0 Thyroid Stimulating Hormone 1.970 uIU/ML Normal 0.358-3.740 Lactic Acid Sepsis Protocol 1.4 mmol/L Normal 0.4-2.0 3 Laboratory test finding 12/02/2019 [place] [address] [phone] iSTAT Troponin 0.00 NG/ML Normal 0.00-0.08 Istat Chem8+ Panel 12/02/2019 [place] [address] [phone] iSTAT HCT 31.0 % Low 38.0-51.0 iSTAT Glucose 116 mg/dL High 70-105 iSTAT Sodium 140 mEq/L Normal 136-145 iSTAT Potassium 3.8 mEq/L Normal 3.5-5.1 iSTAT CA++ 4.8 mg/dL Normal 4.5-5.3 iSTAT Chloride 99 mEq/L Normal 98-109 iSTAT Co2 28.0 MM/L High 23.0-27.0 iSTAT BUN 17 mg/dL Normal 8-26 iSTAT Creatinine 1.1 mg/dL Normal 0.6-1.3 Laboratory test finding 11/24/2019 [place] [address] [phone] NT-Pro BNP 244 pg/mL Normal <450 Thyroid Stimulating Hormone 2.460 uIU/ML Normal 0.358-3.740 C Reactive Protein Quantitativ 0.77 mg/dL High 0.00-0.30 Basic Metabolic Profile 11/24/2019 [place] [address] [phone] Glucose, Fasting 139 mg/dL High 70-100 Blood [...] Normal 8.8-10.2 Liver Profile 11/24/2019 [place] [address] [phone] Ast/Sgot 7 U/L Normal 7-37 Alt/SGPT 12 U/L Normal 12-78 Alkaline Phosphatase 56 U/L Normal 45-117 Bilirubin,Total 0.9 mg/dL Normal 0.2-1.0 Bilirubin,Direct 0.3 mg/dL High 0.0-0.2 Total Protein 5.5 GM/DL Low 6.4-8.2 Albumin 3.2 GM/DL Normal 3.2-5.2 Albumin/Globulin Ratio 1.4 Normal 1.2-2.2 Cardiac Marker Panel 11/24/2019 [place] [address] [phone] CPK Creatine Phosphokinase 26 U/L Normal 26-19 2 CK-MB Value Mass 1.2 NG/ML Normal <3.6 MB/CK Relative Index 4.62 High < Or =4 5 Troponin I < 0.02 NG/ML Normal < 0.10 6 Laboratory test finding 11/24/2019 [place] [address] [phone] Erythrocyte Sedimentation Rate 11 mm/hr Normal 0 -30 CBC With Differential 11/24/2019 [place] [address] [phone] White Blood Count 8.2 10 Normal 4.0-10.0 [...] 36.0-66.0 Lymph % 10.7 % Low 24.0-44.0 Dickens % 5.6 % High 0.0-5.0 Eos % 2.1 % Normal 0.0-3.0 Baso % 0.5 % Normal 0.0-1.0 Immature Granulocyte % 0.6 % Normal 0-3.0 Nucleated Red Blood Cell % 0.0 % Normal 0-0 Neutrophils # 6.6 10 Normal 1.5-8.5 Lymph # 0.9 10 Low 1.5-5.0 Dickens # 0.5 10 Normal 0.0-0.8 Eos # 0.2 10 Normal 0.0-0.5 Baso # 0.0 10 Normal 0.0-0.2 Laboratory test finding 10/10/2019 [place] [address] [phone] NT-Pro BNP 264 pg/mL Normal <450 Thyroxine (T4) 8.4 g/dL Normal 4.5-12.0 Thyroid Stimulating Hormone 1.340 uIU/ML Normal 0.358-3.740 Basic Metabolic Profile 10/10/2019 [place] [address] [phone] Glucose, Fasting 108 mg/dL High 70-100 Blood [...] Liver Profile 10/10/2019 [place] [address] [phone] Ast/Sgot 11 U/L Normal 7-37 Alt/SGPT 10 U/L Low 12-78 Alkaline Phosphatase 56 U/L Normal 45-117 Bilirubin,Total 0.6 mg/dL Normal 0.2-1.0 Bilirubin,Direct 0.2 mg/dL Normal 0.0-0.2 Total Protein 5.7 GM/DL Low 6.4-8.2 Albumin 3.4 GM/DL Normal 3.2-5.2 Albumin/Globulin Ratio 1.5 Normal 1.2-2.2 Cardiac Marker Panel 10/10/[address] [place] [address] [phone] CPK Creatine Phosphokinase 25 U/L Low 26-19 2 CK-MB Value Mass 1.0 NG/ML Normal <3.6 MB/CK Relative Index 4.00 Normal < Or =4 8 Troponin I < 0.02 NG/ML Normal < 0.10 9 Laboratory test finding 10/10/2019 [place] [address] [phone] Lactic Acid Sepsis Protocol 2.0 mmol/L Normal 0.4- 2.0 10 CBC With Differential 10/10/2019 [place] [address] [phone] White Blood Count 9.0 10 Normal 4.0-10.0 [...] 36.0-66.0 Lymph % 13.0 % Low 24.0-44.0 Dickens % 5.9 % High 0.0-5.0 Eos % 0.2 % Normal 0.0-3.0 Baso % 0.2 % Normal 0.0-1.0 Immature Granulocyte % 0.7 % Normal 0-3.0 Nucleated Red Blood Cell % 0.0 % Normal 0-0 Neutrophils # 7.2 10 Normal 1.5-8.5 Lymph # 1.2 10 Low 1.5-5.0 Dickens # 0.5 10 Normal 0.0-0.8 Eos # 0.0 10 Normal 0.0-0.5 Baso # 0.0 10 Normal 0.0-0.2 Venous Blood Gas 10/10/2019 Patient Service Cent [facility] [place] [address] [phone] Venous PH 7.380 units Normal 7.330-7.430 Venous Partial Pressure Co2 42.1 mmHg Normal 38.0-50.0 Venous Partial Pressure O2 66.4 mmHg High 30.0-50.0 Venous Total Co2 24.3 mEq/L Normal 24.0-28.0 Venous Hco3 24.3 mEq/L Normal 23.0-27.0 Venous Base Excess -0.8 Normal -2.0-2.0 Venous Standard Hco3 23.7 mEq/L Normal Venous O2 Saturation 91.3 % High 60.0-80.0 Hemoglobin A1c 08/29/2019 [facility] nter [phone] Hemoglobin A1c 8.1 % Normal 11 Estimated Average Glucose 186 mg/dL High 60-110 Lipid Panel 08/29/2019 [facility] nter [phone] Triglycerides Level 75 mg/dL Normal <150 Cholesterol Level 121 mg/dL Normal <200 HDL Cholesterol 50 mg/dL Normal >40 LDL Cholesterol 56 mg/dL Normal <100 Non-HDL-C 71 mg/dL Normal Cholesterol Risk Ratio 2.420 Normal <5 Comprehensive Metabolic Profil 08/29/2019 [facility] [phone] Glucose, Fasting 132 mg/dL High 70-100 Blood [...] 1.4 Normal 1.2-2.2 Laboratory test finding 08/29/2019 [facility] [phone] Magnesium Level 2.0 mg/dL Normal 1.8-2.4 Basic Metabolic Profile 08/23/2019 [place] [address] [phone] Glucose, Fasting 163 mg/dL High 70-100 Blood [...] 8.8-10.2 Complete Blood Count 07/27/2019 Patient Service [place], [place] [address]07 [phone] White Blood Count 10.9 10 High 4.0-10.0 [...] Laboratory test finding 07/27/2019 [place] [address] [phone] Erythrocyte Sedimentation Rate 23 mm/hr Normal 0 -30 Basic Metabolic Profile 07/27/2019 [place] [address] [phone] Glucose, Fasting 159 mg/dL High 70-100 Blood [...] Laboratory test finding 07/27/2019 [place] [address] [phone] Vancomycin Level Trough 11.9 UG/ML Normal 10.0-20. 0 C Reactive Protein Quantitativ 1.74 mg/dL High 0.00-0.30 Basic Metabolic Profile 07/20/2019 [place] [address] [phone] Glucose, Fasting 142 mg/dL High 70-100 Blood [...] Laboratory test finding 07/20/2019 Patient Service Center [place] [id number] [phone] C Reactive Protein Quantitativ 3.25 mg/dL High 0 .00-0.30 CBC With Differential 07/20/2019 [place] [address] [phone] White Blood Count 13.2 10 High 4.0-10.0 [...] 36.0-66.0 Lymph % 10.2 % Low 24.0-44.0 Dickens % 6.1 % High 0.0-5.0 Eos % 1.7 % Normal 0.0-3.0 Baso % 0.5 % Normal 0.0-1.0 Immature Granulocyte % 1.7 % Normal 0-3.0 Nucleated Red Blood Cell % 0.0 % Normal 0-0 Neutrophils # 10.5 10 High 1.5-8.5 Lymph # 1.3 10 Low 1.5-5.0 Dickens # 0.8 10 Normal 0.0-0.8 Eos # 0.2 10 Normal 0.0-0.5 Baso # 0.1 10 Normal 0.0-0.2 Laboratory test finding 07/20/2019 [place] [address] [phone] Erythrocyte Sedimentation Rate 41 mm/hr High 0 -30 1 A false negative result may occur [...] pathogens. DISCLAIMER: Testing was performed using the [facility] SARS-CoV-2 test. This test was developed and its performance characteristics determined by [facility]. This test has not been FDA cleared [...] Little GFR Left ESRD GFR <15 on SATURATION EQUIPMENT OPERATOR 5 DIAGNOSIS CRITERIA MMB ng/ml Relative Index (RI) NON-AMI < or = 5 N/A GOYAL ZONE > 5 < or = 4 AMI > 5 > 4 6 Troponin I Reference Interva l for [employer] LOCI: 99th Percentile= 0.00-0.045 ng/ml Risk Stratification: [...] Little GFR Left ESRD GFR <15 on SATURATION EQUIPMENT OPERATOR 8 DIAGNOSIS CRITERIA MMB ng/ml Relative Index (RI) NON-AMI < or = 5 N/A GOYAL ZONE > 5 < or = 4 AMI > 5 > 4 9 Troponin I Reference Interva l for [employer] LOCI: 99th Percentile= 0.00-0.045 ng/ml Risk Stratification: [...] Little GFR Left ESRD GFR <15 on SATURATION EQUIPMENT OPERATOR 13 Units are mL/min/1.73 m2 Chronic Kidney Disease Staging per NKF: Stage I & II GFR >=60 Normal to Mildly Decreased Stage III GFR 30-59 Moderately Decreased Stage IV GFR 15-29 Severely Decreased Stage V GFR <15 Very Little GFR Left ESRD GFR <15 on SATURATION EQUIPMENT OPERATOR 14 Units are mL/min/1.73 m2 Chronic Kidney Disease Staging per NKF: Stage I & II GFR >=60 Normal to Mildly Decreased Stage III GFR 30-59 Moderately Decreased Stage IV GFR 15-29 Severely Decreased Stage V GFR <15 Very Little GFR Left ESRD GFR <15 on SATURATION EQUIPMENT OPERATOR 15 Units are mL/min/1.73 m2 Chronic Kidney Disease Staging per NKF: Stage I & II GFR >=60 Normal to Mildly Decreased Stage III GFR 30-59 Moderately Decreased Stage IV GFR 15-29 Severely Decreased Stage V GFR <15 Very Little GFR Left ESRD GFR <15 on SATURATION EQUIPMENT OPERATOR Procedures Date Code Description Status 03/25/2018 [id number] Diabetic Foot Exam Completed 09/12/2017 [id number] Mammogram Completed 05/09/2014 [id number] Mammogram Completed 04/27/2014 [id number] Mammogram Completed 12/10/2010 [id number] Mammogram Completed Medical Devices Description No Information Available Encounters Type Date Location Provider Dx Diagnosis Office Visit 12/16/2019 1:15p Main Office Criselad Herrera, SUMMER ANALYST 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 I48.91 Unspecified atrial fibrillat ion I70.212 [place] arteries of ex trm w intrmt damaris, left leg E11.69 Type 2 diabetes mellitus wit h other specified complication J44.1 Chronic obstructive pulmonar y disease w (acute) exacerbation Office Visit 12/02/2019 4:00p Main Office Criselda Herrera SUMMER ANALYST I50.2 3 Acute on chronic systolic (congestive) heart failure Office Visit 11/24/2019 10:00a Main Office Criselda Herrera, SUMMER ANALYST L03.1 16 Cellulitis of left lower limb R06.00 Dyspnea, unspecified Office Visit 10/20/2019 1:45p Main Office Criselda Herrera, SUMMER ANALYST 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 E11.69 Type 2 diabetes mellitus wit h other specified complication I48.91 Unspecified atrial fibrillat ion E87.6 Hypokalemia E83.42 Hypomagnesemia R60.0 Localized edema I70.212 [place] arteries of ex trm w intrmt damaris, left leg J44.9 Chronic obstructive pulmonar y disease, unspecified Office Visit 09/20/2019 1:00p Main Office PlemarioachCriselda, SUMMER ANALYST 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 E11.69 Type 2 diabetes mellitus wit h other specified complication E87.6 Hypokalemia E83.42 Hypomagnesemia J44.1 Chronic obstructive pulmonar y disease w (acute) exacerbation E66.01 Morbid (severe) obesity due to excess calories I48.91 Unspecified atrial fibrillat ion Office Visit 09/06/2019 11:30a Main Office Criselda Herrera, SUMMER ANALYST E11.6 9 Type 2 diabetes mellitus with [...] and diastolic (congestive) heart failure PleCriselda gomez, SUMMER ANALYST 12/16/2019 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 aCrmelaachMoey, SUMMER ANALYST 12/16/2019 I48.91 Unspecified atrial fibrillation Pleskach Criselda, SUMMER ANALYST 12/16/2019 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, left leg PlemarioachCriselda, SUMMER ANALYST 12/16/2019 E11.69 Type 2 diabetes mellitus with ot her specified complication PleskachMoey, SUMMER ANALYST 12/16/2019 J44.1 Chronic obstructive pulmonary disease with (acute) exacerbation PleskachCriselda, SUMMER ANALYST 12/03/2019 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 Pleskach, Criselda, SUMMER ANALYST 12/03/2019 I48.91 Unspecified atrial fibrillation Pleskach, Criselda, SUMMER ANALYST 12/03/2019 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, left leg Plemarioach, Criselda, SUMMER ANALYST 12/03/2019 E11.69 Type 2 diabetes mellitus with ot her specified complication Pleskach, Criselda, SUMMER ANALYST 12/03/2019 J44.1 Chronic obstructive pulmonary disease with (acute) exacerbation Pleskach Criselda, SUMMER ANALYST 12/02/2019 I50.23 Acute on chronic systolic (conge stive) heart failure PleCriselda gomez, SUMMER ANALYST 11/24/2019 L03.116 Cellulitis of left lower limb Pl Criselda connor, SUMMER ANALYST 11/24/2019 R06.00 Dyspnea, unspecified PleLesly gomez, SUMMER ANALYST 11/09/2019 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 Pleskach Criselda, SUMMER ANALYST 11/09/2019 E11.69 Type 2 diabetes mellitus with ot her specified complication Pleskach Criselda, SUMMER ANALYST 11/09/2019 I48.91 Unspecified atrial fibrillation Pleskach Criselda, SUMMER ANALYST 11/09/2019 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, left leg PleCriselda gomez, SUMMER ANALYST 11/09/2019 J44.1 Chronic obstructive pulmonary disease with (acute) exacerbation PleskCriselda springer, SUMMER ANALYST 10/20/2019 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 PleMoe gomezy, SUMMER ANALYST 10/20/2019 E11.69 Type 2 diabetes mellitus with ot her specified complication PleskachMoey, SUMMER ANALYST 10/20/2019 I48.91 Unspecified atrial fibrillation PleMoe gomezy, SUMMER ANALYST 10/20/2019 E87.6 Hypokalemia PleMoe gomezy, SUMMER ANALYST 10/20/2019 E83.42 Hypomagnesemia PleMoe gomezy, SUMMER ANALYST 10/20/2019 R60.0 Localized edema PleskachMoey, SUMMER ANALYST 10/20/2019 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, left leg PleskachMoey, SUMMER ANALYST 10/20/2019 J44.9 Chronic obstructive pulmonary di sease, unspecified Pleskach Criselda, SUMMER ANALYST 10/18/2019 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 10/18/2019 E11.69 Type 2 diabetes mellitus with ot her specified complication Nuzhat Langley M.D. 10/18/2019 I48.91 Unspecified atrial fibrillation Nuzhat Langley M.D. 10/18/2019 E87.6 Hypokalemia Nuzhat Langley M.D. 10/18/2019 E83.42 Hypomagnesemia Nuzhat Langley M.D. 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 Pleskach, Criselda, SUMMER ANALYST 09/20/2019 E11.69 Type 2 diabetes mellitus with ot her specified complication Pleskach, Criselda, SUMMER ANALYST 09/20/2019 E87.6 Hypokalemia Pleskach, Criselda, SUMMER ANALYST 09/20/2019 E83.42 Hypomagnesemia Pleskach, Criselda, SUMMER ANALYST 09/20/2019 J44.1 Chronic obstructive pulmonary disease with (acute) exacerbation Pleskach, Criselda, SUMMER ANALYST 09/20/2019 E66.01 Morbid (severe) obesity due to e xcess calories Pleskach, Criselda, SUMMER ANALYST 09/20/2019 I48.91 Unspecified atrial fibrillation Pleskach, Criselda, SUMMER ANALYST 09/08/2019 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 09/08/2019 E83.42 Hypomagnesemia Nuzhat Langley M.D. 09/08/2019 E87.6 Hypokalemia Nuzhat Langley M.D. 09/08/2019 J44.1 Chronic obstructive pulmonary disease with (acute) exacerbation Nuzhat Langley M.D. 09/06/2019 E11.69 Type 2 diabetes mellitus with ot her specified complication Pleskach, Criselda, SUMMER ANALYST 09/06/2019 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 Pleskach, Criselda, SUMMER ANALYST 09/06/2019 E87.6 Hypokalemia Pleskach, Criselda, SUMMER ANALYST 09/06/2019 E83.42 Hypomagnesemia Pleskach, Criselda, SUMMER ANALYST 09/06/2019 J44.1 Chronic obstructive pulmonary disease with (acute) exacerbation Pleskach, Criselda, SUMMER ANALYST 09/06/2019 E66.01 Morbid (severe) obesity due to e xcess calories Pleskach, Criselda, SUMMER ANALYST 09/06/2019 I48.91 Unspecified atrial fibrillation Criselda Herrera [...] M.D. 07/15/2019 E87.6 Hypokalemia Nuzhat Langley M.D. Plan of Treatment Future Appointment(s):* 01/19/2020 2:00 pm - Criselda Herrera FNP at Main Office 01/11/2020 - Criselda Herrera FNP* I50.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* New Labs:* Comprehensive Metabolic Profil, Scheduled: 01/11/20 * Hemoglobin A1c, Scheduled: 01/11/20 * Follow up:* as scheduled Functional Status Functional Condition Comment Date Status Bifocal glasses Active Independent with all ADL's Activ e Complete lower and upper and lower dentures Active Independent with all IADL's Acti ve Mental Status Mental Condition Comment Date Status None Active Referrals Refer to Reason for Referral Status Appt Date [facility] referring for PAD, LLE redness and swelling and pain Closed 12/07/2019 [address] [facility], [address] [place] [address] [phone] [facility] referring for PAD, LLE redness and swelling and pain Patient Declined 12/21/2019 [address] [facility], [address] [place] [address] [phone]
--- OUTSIDE RECORDS SUMMARY | 2020-03-07 19:49 | CCD | Continuity of Care Document ---
Author Author Sana HERRERA [facility] Organization Unknown Address [address] [place] [address] Phone [phone] Care Team Providers Care Server Administrator Name Role Phone Dhaval Manuel MD AUTM [phone] Nuzhat Langley MD AUTM [phone] Roberto Wallace MD AUTM [phone] [facility] - Surgery AUTM [phone] Problems Active Problems Provider Date Essential hypertension [...] nasal cannula. Lupe raniCriselda santo FNP 08/09/2019 Acetaminophen 325mg Tablets 2 by mouth every 6 hours as needed for leg pain. Unknown 08/07/2019 Potassium Chloride Keren ER 20Meq Tablets ER 1 by mouth every day Unknown 020 Bupropion Hydrochloride ER (XL) 150mg Tablets ER 24HR take one tablet by mouth once a day 90tabs F32.9 Criselda Herrera FNP 07/06/2019 Prednisone 5mg Tablets 1 tablet by mouth once a day Unknown 06/29/2019 Alcohol Prep 70% Pads use twice daily as directed before testing bs 1Box Criselda Herrera [employer]IV[employer] MA[employer]GER 12/03/2018 Fluticasone Propionate 50mcg/Act Suspension one spray each side of nose daily 32gm J30.9 Criselda Cabrera [employer] ACTIVATION MANAGER 10/14/2018 Ipratropium [place]/Albuterol Sulfate 0.5-2.5(3)mg/3ML Solution use 1 vial via nebulizer 4 times daily a s needed for coughing and wheezing 90ml Criselda Herrera FNP 10/14 Neosporin Original 3.5-400-5000 Oi ntment apply to rash twice a day as needed 28.300gm R21 Emerson Herrera [facility] 12/09/2017 Freestyle Lite Blood Glucose Monitoring System Device use for monitoring blood glucose twice a day, dx e11.9, prognosis good, duration 99 months 1units Criselda Herrera FNP Freestyle Lite Test Strips use to check blood glucose 2 times a day, e11.9 200units Vivian Herrera [employer] ACTIVATION MANAGER 04/07/2017 Freestyle Lite Lancets Misc use to check fasting blood glusose twice daily, dx: e11.9 200units Criselda Ruelas [employer]IVATION MANAGER 04/07/2017 Citalopram Hydrobromide 40mg Table ts 1 tab by mouth every day 90tabs F32.9 Criselda Herrera, DEMETRIA 03/13/19 18 Proair HFA 108(90Base) mcg/Act Aer osol 2 puffs every 4 hours as needed for wheezing and coughing 3units Criselda Herrera [employer]IVATION MANAGER 04/12/2014 Lumigan 0.01% Solution one gtt. each eye at at bedtime Unknown Diltiazem HCL 60mg Tablets 1 tab by mouth once a at bedtime 90tabs Criselda Herrera, DEMETRIA 0 Advair Diskus 500-50mcg/Dose Aeros ol inhale one puff by mouth every day 60units Vivian Herrera, [facility] Xarelto 20mg Tablets 1 by mouth every day Jason Cosby [facility] History Medications Torsemide 10mg Tablets [...] 60tabs Criselda Herrera FNP 08/12/2019 - 01/12/2020 Oxycodone HCL 5mg Tablets 1 tab by [...] CPT Code Status Date Vaccine Lot # 62528 Given 03/25/2018 Pneumococcal Vaccine [id number] Given 12/09/2017 Influenza Virus Vaccine, Quadrivalent,age 3 and up,multidose vial [id number] Q2038 Given 12/04/2016 Influenza Vaccine (Fluzone)( medicare) [id number] Q2038 Given 11/14/2015 Influenza Vaccine (Fluzone)( medicare) [id number] Given 10/12/2015 Prevnar 13 For Adults 02567 Given 11/17/2013 Influenza Vaccination 86237 Given 11/18/2007 Influenza Vaccination [id number] 06067 Given 12/12/2006 Influenza Vaccination [id number] Vital Signs Date Vital Result Comment 01/11/2020 3:53pm BP Systolic 120 mmHg BP Diastolic 61 mmHg Heart Rate 100 /min Body Temperature 96.9 F Respiratory Rate 26 /min Height 61.5 inches 5'1.50" Weight 253.38 lb O2 % BldC Oximetry 95 % Peak Expiratory Flow Rate 292 Estimated Peak Flow Rate [place] Body Weight 105 lb BMI (Body Mass Index) 47.1 kg/m2 12/16/2019 1:37pm BP Systolic 109 mmHg BP Diastolic 53 mmHg Heart Rate 70 /min Body Temperature 97.3 F Respiratory Rate 22 /min Height 61.5 inches 5'1.50" Weight 251.38 lb O2 % BldC Oximetry 94 % on room air Peak Expiratory Flow Rate 292 Estimated Peak Flow Rate [place] Body Weight 105 lb BMI (Body Mass Index) 46.7 kg/m2 Results Test Acquired Date Facility Test Result H/L Range Note Laboratory test finding 12/02/2019 [place] [address] [phone] Sars Covid-19 Amplification NEGATIVE Normal Nega tive 1 Venous Blood Gas 12/02/2019 [place] [address] [phone] Venous PH 7.482 units High 7.330-7.430 Venous Partial Pressure Co2 37.5 mmHg Low 38.0-50.0 Venous Partial Pressure O2 135.7 mmHg High 30.0-50.0 Venous Total Co2 28.6 mEq/L High 24.0-28.0 Venous Hco3 27.4 mEq/L High 23.0-27.0 Venous Base Excess 3.9 High -2.0-2.0 Venous Standard Hco3 28.0 mEq/L Normal Venous O2 Saturation 98.9 % High 60.0-80.0 CBC With Differential 12/02/2019 [place] [address] [phone] White Blood Count 8.8 10 Normal 4.0-10.0 [...] 36.0-66.0 Lymph % 10.9 % Low 24.0-44.0 [place] % 7.1 % High 0.0-5.0 Eos % 1.9 % Normal 0.0-3.0 Baso % 0.5 % Normal 0.0-1.0 Immature Granulocyte % 0.6 % Normal 0-3.0 Nucleated Red Blood Cell % 0.0 % Normal 0-0 Neutrophils # 6.9 10 Normal 1.5-8.5 Lymph # 1.0 10 Low 1.5-5.0 [place] # 0.6 10 Normal 0.0-0.8 Eos # 0.2 10 Normal 0.0-0.5 Baso # 0.0 10 Normal 0.0-0.2 Prothrombin Time/Inr 12/02/2019 Patient Service [facility] [place] [address] [phone] Prothrombin Time 19.4 seconds High 12.5-14.3 Inr 1.60 Normal 2 Liver Profile 12/02/2019 [place] [address] [phone] Ast/Sgot 7 U/L Normal 7-37 Alt/SGPT 11 U/L Low 12-78 Alkaline Phosphatase 59 U/L Normal 45-117 Bilirubin,Total 0.7 mg/dL Normal 0.2-1.0 Bilirubin,Direct 0.3 mg/dL High 0.0-0.2 Total Protein 5.6 GM/DL Low 6.4-8.2 Albumin 3.2 GM/DL Normal 3.2-5.2 Albumin/Globulin Ratio 1.3 Normal 1.2-2.2 Laboratory test finding 12/02/2019 [place] [address] [phone] NT-Pro BNP 377 pg/mL Normal <450 Phenobarbital Level 2.1 UG/ML Low 15.0-40.0 Thyroid Stimulating Hormone 1.970 uIU/ML Normal 0.358-3.740 Lactic Acid Sepsis Protocol 1.4 mmol/L Normal 0.4-2.0 3 Laboratory test finding 12/02/2019 [place] [address] [phone] iSTAT Troponin 0.00 NG/ML Normal 0.00-0.08 Istat Chem8+ Panel 12/02/2019 [place] [address] [phone] iSTAT HCT 31.0 % Low 38.0-51.0 iSTAT Glucose 116 mg/dL High 70-105 iSTAT Sodium 140 mEq/L Normal 136-145 iSTAT Potassium 3.8 mEq/L Normal 3.5-5.1 iSTAT CA++ 4.8 mg/dL Normal 4.5-5.3 iSTAT Chloride 99 mEq/L Normal 98-109 iSTAT Co2 28.0 MM/L High 23.0-27.0 iSTAT BUN 17 mg/dL Normal 8-26 iSTAT Creatinine 1.1 mg/dL Normal 0.6-1.3 Laboratory test finding 11/24/2019 [place] [address] [phone] NT-Pro BNP 244 pg/mL Normal <450 Thyroid Stimulating Hormone 2.460 uIU/ML Normal 0.358-3.740 C Reactive Protein Quantitativ 0.77 mg/dL High 0.00-0.30 Basic Metabolic Profile 11/24/2019 [place] [address] [phone] Glucose, Fasting 139 mg/dL High 70-100 Blood [...] Normal 8.8-10.2 Liver Profile 11/24/2019 [place] [address] [phone] Ast/Sgot 7 U/L Normal 7-37 Alt/SGPT 12 U/L Normal 12-78 Alkaline Phosphatase 56 U/L Normal 45-117 Bilirubin,Total 0.9 mg/dL Normal 0.2-1.0 Bilirubin,Direct 0.3 mg/dL High 0.0-0.2 Total Protein 5.5 GM/DL Low 6.4-8.2 Albumin 3.2 GM/DL Normal 3.2-5.2 Albumin/Globulin Ratio 1.4 Normal 1.2-2.2 Cardiac Marker Panel 11/24/[address] [place] [address] [phone] CPK Creatine Phosphokinase 26 U/L Normal 26-19 2 CK-MB Value Mass 1.2 NG/ML Normal <3.6 MB/CK Relative Index 4.62 High < Or =4 5 Troponin I < 0.02 NG/ML Normal < 0.10 6 Laboratory test finding 11/24/2019 [place] [address] [phone] Erythrocyte Sedimentation Rate 11 mm/hr Normal 0 -30 CBC With Differential 11/24/2019 [place] [address] [phone] White Blood Count 8.2 10 Normal 4.0-10.0 [...] 36.0-66.0 Lymph % 10.7 % Low 24.0-44.0 [place] % 5.6 % High 0.0-5.0 Eos % 2.1 % Normal 0.0-3.0 Baso % 0.5 % Normal 0.0-1.0 Immature Granulocyte % 0.6 % Normal 0-3.0 Nucleated Red Blood Cell % 0.0 % Normal 0-0 Neutrophils # 6.6 10 Normal 1.5-8.5 Lymph # 0.9 10 Low 1.5-5.0 [place] # 0.5 10 Normal 0.0-0.8 Eos # 0.2 10 Normal 0.0-0.5 Baso # 0.0 10 Normal 0.0-0.2 Laboratory test finding 10/10/2019 [place] [address] [phone] NT-Pro BNP 264 pg/mL Normal <450 Thyroxine (T4) 8.4 g/dL Normal 4.5-12.0 Thyroid Stimulating Hormone 1.340 uIU/ML Normal 0.358-3.740 Basic Metabolic Profile 10/10/2019 [place] [address] [phone] Glucose, Fasting 108 mg/dL High 70-100 Blood [...] Normal 8.8-10.2 Liver Profile 10/10/2019 [place] [address] [phone] Ast/Sgot 11 U/L Normal 7-37 Alt/SGPT 10 U/L Low 12-78 Alkaline Phosphatase 56 U/L Normal 45-117 Bilirubin,Total 0.6 mg/dL Normal 0.2-1.0 Bilirubin,Direct 0.2 mg/dL Normal 0.0-0.2 Total Protein 5.7 GM/DL Low 6.4-8.2 Albumin 3.4 GM/DL Normal 3.2-5.2 Albumin/Globulin Ratio 1.5 Normal 1.2-2.2 Cardiac Marker Panel 10/10/[address] [place] [address] [phone] CPK Creatine Phosphokinase 25 U/L Low 26-19 2 CK-MB Value Mass 1.0 NG/ML Normal <3.6 MB/CK Relative Index 4.00 Normal < Or =4 8 Troponin I < 0.02 NG/ML Normal < 0.10 9 Laboratory test finding 10/10/2019 [place] [address] [phone] Lactic Acid Sepsis Protocol 2.0 mmol/L Normal 0.4- 2.0 10 CBC With Differential 10/10/2019 [place] [address] [phone] White Blood Count 9.0 10 Normal 4.0-10.0 [...] 36.0-66.0 Lymph % 13.0 % Low 24.0-44.0 [place] % 5.9 % High 0.0-5.0 Eos % 0.2 % Normal 0.0-3.0 Baso % 0.2 % Normal 0.0-1.0 Immature Granulocyte % 0.7 % Normal 0-3.0 Nucleated Red Blood Cell % 0.0 % Normal 0-0 Neutrophils # 7.2 10 Normal 1.5-8.5 Lymph # 1.2 10 Low 1.5-5.0 [place] # 0.5 10 Normal 0.0-0.8 Eos # 0.0 10 Normal 0.0-0.5 Baso # 0.0 10 Normal 0.0-0.2 Venous Blood Gas 10/10/2019 [facility] [place] [address] [phone] Venous PH 7.380 units Normal 7.330-7.430 Venous Partial Pressure Co2 42.1 mmHg Normal 38.0-50.0 Venous Partial Pressure O2 66.4 mmHg High 30.0-50.0 Venous Total Co2 24.3 mEq/L Normal 24.0-28.0 Venous Hco3 24.3 mEq/L Normal 23.0-27.0 Venous Base Excess -0.8 Normal -2.0-2.0 Venous Standard Hco3 23.7 mEq/L Normal Venous O2 Saturation 91.3 % High 60.0-80.0 Hemoglobin A1c 08/29/2019 [facility] nter [phone] Hemoglobin A1c 8.1 % Normal 11 Estimated Average Glucose 186 mg/dL High 60-110 Lipid Panel 08/29/2019 [facility] nter [phone] Triglycerides Level 75 mg/dL Normal <150 Cholesterol Level 121 mg/dL Normal <200 HDL Cholesterol 50 mg/dL Normal >40 LDL Cholesterol 56 mg/dL Normal <100 Non-HDL-C 71 mg/dL Normal Cholesterol Risk Ratio 2.420 Normal <5 Comprehensive Metabolic Profil 08/29/2019 [facility] [phone] Glucose, Fasting 132 mg/dL High 70-100 Blood [...] 1.4 Normal 1.2-2.2 Laboratory test finding 08/29/2019 [facility] [phone] Magnesium Level 2.0 mg/dL Normal 1.8-2.4 Basic Metabolic Profile 08/23/2019 [place] [address] [phone] Glucose, Fasting 163 mg/dL High 70-100 Blood [...] 8.8-10.2 Complete Blood Count 07/27/[address] [place] [address] [phone] White Blood Count 10.9 10 High 4.0-10.0 [...] 0-0 Laboratory test finding 07/27/2019 [place] [address] [phone] Erythrocyte Sedimentation Rate 23 mm/hr Normal 0 -30 Basic Metabolic Profile 07/27/2019 [place] [address] [phone] Glucose, Fasting 159 mg/dL High 70-100 Blood [...] 8.8-10.2 Laboratory test finding 07/27/2019 [place] [address] [phone] Vancomycin Level Trough 11.9 UG/ML Normal 10.0-20. 0 C Reactive Protein Quantitativ 1.74 mg/dL High 0.00-0.30 Basic Metabolic Profile 07/20/2019 [place] [address] [phone] Glucose, Fasting 142 mg/dL High 70-100 Blood [...] Laboratory test finding 07/20/2019 [facility] [place] [id number] [phone] C Reactive Protein Quantitativ 3.25 mg/dL High 0 .00-0.30 CBC With Differential 07/20/2019 [place] [address] [phone] White Blood Count 13.2 10 High 4.0-10.0 [...] 36.0-66.0 Lymph % 10.2 % Low 24.0-44.0 [place] % 6.1 % High 0.0-5.0 Eos % 1.7 % Normal 0.0-3.0 Baso % 0.5 % Normal 0.0-1.0 Immature Granulocyte % 1.7 % Normal 0-3.0 Nucleated Red Blood Cell % 0.0 % Normal 0-0 Neutrophils # 10.5 10 High 1.5-8.5 Lymph # 1.3 10 Low 1.5-5.0 [place] # 0.8 10 Normal 0.0-0.8 Eos # 0.2 10 Normal 0.0-0.5 Baso # 0.1 10 Normal 0.0-0.2 Laboratory test finding 07/20/2019 [facility] [place] [id number] [phone] Erythrocyte Sedimentation Rate 41 mm/hr High 0 [...] pathogens. DISCLAIMER: Testing was performed using the [employer] SARS-CoV-2 test. This test was developed and its performance characteristics determined by [employer]. This test has not been FDA cleared [...] Little GFR Left ESRD GFR <[address] MAGISTRATE 5 DIAGNOSIS CRITERIA MMB ng/ml Relative Index (RI) NON-AMI < or = 5 N/A GOYAL ZONE > 5 < or = 4 AMI > 5 > 4 6 Troponin I Reference Interva l for Siemens [place] LOCI: 99th Percentile= 0.00-0.045 ng/ml Risk Stratification: [...] Little GFR Left ESRD GFR <[address] MAGISTRATE 8 DIAGNOSIS CRITERIA MMB ng/ml Relative Index (RI) NON-AMI < or = 5 N/A GOYAL ZONE > 5 < or = 4 AMI > 5 > 4 9 Troponin I Reference Interva l for Siemens [place] LOCI: 99th Percentile= 0.00-0.045 ng/ml Risk Stratification: [...] Little GFR Left ESRD GFR <[address] MAGISTRATE 13 Units are mL/min/1.73 m2 Chronic Kidney Disease Staging per NKF: Stage I & II GFR >=60 Normal to Mildly Decreased Stage III GFR 30-59 Moderately Decreased Stage IV GFR 15-29 Severely Decreased Stage V GFR <15 Very Little GFR Left ESRD GFR <[address] MAGISTRATE 14 Units are mL/min/1.73 m2 Chronic Kidney Disease Staging per NKF: Stage I & II GFR >=60 Normal to Mildly Decreased Stage III GFR 30-59 Moderately Decreased Stage IV GFR 15-29 Severely Decreased Stage V GFR <15 Very Little GFR Left ESRD GFR <[address] MAGISTRATE 15 Units are mL/min/1.73 m2 Chronic Kidney Disease Staging per NKF: Stage I & II GFR >=60 Normal to Mildly Decreased Stage III GFR 30-59 Moderately Decreased Stage IV GFR 15-29 Severely Decreased Stage V GFR <15 Very Little GFR Left ESRD GFR <[address] MAGISTRATE Procedures Date Code Description Status 03/25/2018 [id number] Diabetic Foot Exam Completed 09/12/2017 [id number] Mammogram Completed 05/09/2014 [id number] Mammogram Completed 04/27/2014 [id number] Mammogram Completed 12/10/2010 [id number] Mammogram Completed Medical Devices Description No Information Available Encounters Type Date Location Provider Dx Diagnosis Office Visit 01/11/2020 3:45p Main Office Criselda Herrera FNP 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 I48.91 Unspecified atrial fibrillat ion I70.212 [facility] [place] of [place] trm w intrmt damaris, left leg E11.69 Type 2 diabetes mellitus wit h other specified complication J44.1 Chronic obstructive pulmonar y disease w (acute) exacerbation Office Visit 12/16/2019 1:15p Main Office Criselda Herrera FNP 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 I48.91 Unspecified atrial fibrillat ion I70.212 [facility] [place] trm w intrmt damaris, [...] E83.42 Hypomagnesemia R60.0 Localized edema I70.212 [facility] [place] trm w intrmt damaris, [...] diastolic (congestive) heart failure Criselda Herrera FNP 01/11/2020 I48.91 Unspecified atrial fibrillation Criselda Herrera FNP 01/11/2020 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, left leg Criselda Herrera FNP 01/11/2020 E11.69 Type 2 diabetes mellitus with ot her specified complication Criselda Herrera FNP 01/11/2020 J44.1 Chronic obstructive pulmonary disease with (acute) exacerbation Criselda Herrera FNP 12/16/2019 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 Criselda Herrera FNP 12/16/2019 I48.91 Unspecified atrial fibrillation Pleskach, Criselda, BRAND ACTIVATION MANAGER 12/16/2019 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, left leg Pleskach, Criselda, BRAND ACTIVATION MANAGER 12/16/2019 E11.69 Type 2 diabetes mellitus with ot her specified complication Pleskach, Criselda, BRAND ACTIVATION MANAGER 12/16/2019 J44.1 Chronic obstructive pulmonary disease with (acute) exacerbation Pleskach, Criselda, BRAND ACTIVATION MANAGER 12/03/2019 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 Pleskach, Criselda, BRAND ACTIVATION MANAGER 12/03/2019 I48.91 Unspecified atrial fibrillation Pleskach, Criselda, BRAND ACTIVATION MANAGER 12/03/2019 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, left leg Pleskach, Criselda, BRAND ACTIVATION MANAGER 12/03/2019 E11.69 Type 2 diabetes mellitus with ot her specified complication Pleskach, Criselda, BRAND ACTIVATION MANAGER 12/03/2019 J44.1 Chronic obstructive pulmonary disease with (acute) exacerbation Pleskach, Criselda, BRAND ACTIVATION MANAGER 12/02/2019 I50.23 Acute on chronic systolic (conge stive) heart failure Pleskach, Criselda, BRAND ACTIVATION MANAGER 11/24/2019 L03.116 Cellulitis of left lower limb Pl Criselda connor, BRAND ACTIVATION MANAGER 11/24/2019 R06.00 Dyspnea, unspecified Pleskach M svitlana, BRAND ACTIVATION MANAGER 11/09/2019 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 Pleskach, Criselda, BRAND ACTIVATION MANAGER 11/09/2019 E11.69 Type 2 diabetes mellitus with ot her specified complication Pleskach, Criselda, BRAND ACTIVATION MANAGER 11/09/2019 I48.91 Unspecified atrial fibrillation Pleskach, Criselda, BRAND ACTIVATION MANAGER 11/09/2019 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, left leg Pleskach, Criselda, BRAND ACTIVATION MANAGER 11/09/2019 J44.1 Chronic obstructive pulmonary disease with (acute) exacerbation Pleskach, Criselda, BRAND ACTIVATION MANAGER 10/20/2019 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 Pleskach, Criselda, BRAND ACTIVATION MANAGER 10/20/2019 E11.69 Type 2 diabetes mellitus with ot her specified complication Pleskach Criselda, BRAND ACTIVATION MANAGER 10/20/2019 I48.91 Unspecified atrial fibrillation PlemarioachMoey, BRAND ACTIVATION MANAGER 10/20/2019 E87.6 Hypokalemia Pleskach Criselda, BRAND ACTIVATION MANAGER 10/20/2019 E83.42 Hypomagnesemia Plemarioach Criselda, BRAND ACTIVATION MANAGER 10/20/2019 R60.0 Localized edema Pleskach Criselda, BRAND ACTIVATION MANAGER 10/20/2019 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, left leg PleCriselda gomez, BRAND ACTIVATION MANAGER 10/20/2019 J44.9 Chronic obstructive pulmonary di sease, unspecified Pleskach Criselda, BRAND ACTIVATION MANAGER 10/18/2019 I50.42 Chronic combined sys tolic [...] and diastolic (congestive) heart failure PleCriselda gomez, BRAND ACTIVATION MANAGER 09/20/2019 E11.69 Type 2 diabetes mellitus with ot her specified complication PlemarioachMoey, BRAND ACTIVATION MANAGER 09/20/2019 E87.6 Hypokalemia Carmelaach Criselda, BRAND ACTIVATION MANAGER 09/20/2019 E83.42 Hypomagnesemia Plemarioach Criselda, BRAND ACTIVATION MANAGER 09/20/2019 J44.1 Chronic obstructive pulmonary disease with (acute) exacerbation Criselda Herrera, BRAND ACTIVATION MANAGER 09/20/2019 E66.01 Morbid (severe) obesity due to e xcess calories PleMoe gomezy, BRAND ACTIVATION MANAGER 09/20/2019 I48.91 Unspecified atrial fibrillation PleMoe gomezy, BRAND ACTIVATION MANAGER 09/08/2019 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 09/08/2019 E83.42 Hypomagnesemia Nuzhat Langley M.D. 09/08/2019 E87.6 Hypokalemia Nuzhat Langley M.D. 09/08/2019 J44.1 Chronic obstructive pulmonary disease with (acute) exacerbation Nuzhat Langley M.D. 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 07/21/2019 I48.91 Unspecified atrial fibrillation Nuzhat Langley M.D. 07/21/2019 E11.69 Type 2 diabetes mellitus with ot her specified complication Nuzhat Langley M.D. 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 Plan of Treatment Future [...] Reason for Referral Status Appt Date [facility] Practice referring for PAD, LLE redness and swelling and pain Closed 12/07/2019 [address] [facility], [address] [place] [address] [phone] [facility] referring for PAD, LLE redness and swelling and pain Patient Declined 12/21/[address] [place], [place] [address], [address] [place] [address] [phone]
--- OUTSIDE RECORDS SUMMARY | 2020-03-07 19:50 | CCD | Continuity of Care Document ---
Author Author Sana HERRERA [facility] Organization Unknown Address [address] [place] [address] Phone [phone] Care Team Providers Care Civil Celebrant Name Role Phone Dhaval Manuel MD AUTM [phone] Nuzhat Langley MD AUTM [phone] Roberto Wallace MD AUTM [phone] [facility] Surgery Practice - Surgery AUTM [phone] Problems Active Problems Provider Date Essential hypertension [...] 32gm J30.9 Criselda Cabrera FNP 10/14/2018 Ipratropium Marathon/Albuterol Sulfate 0.5-2.5(3)mg/3ML Solution use 1 vial via nebulizer 4 times daily a s needed for coughing and wheezing 90ml Criselda Herrera FNP 10/14 Neosporin Original 3.5-400-5000 Oi ntment apply to rash twice a day as needed 28.300gm R21 Emerson Herrera, [facility] 12/09/2017 Freestyle Lite Blood Glucose Monitoring System Device use for monitoring blood glucose twice a day, dx e11.9, prognosis good, duration 99 months 1units Criselda Herrera FNP Freestyle Lite Test Strips use to check blood glucose 2 times a day, e11.9 200units Vivian Herrera BEAD PREPARER 04/07/2017 Freestyle Lite Lancets Misc use to check fasting blood glusose twice daily, dx: e11.9 200units Criselda Ruelas FNP 04/07/2017 Citalopram Hydrobromide 40mg Table ts 1 tab by mouth every day 90tabs F32.9 Criselda Herrera FNP 03/13/19 18 Proair HFA 108(90Base) mcg/Act Aer osol 2 puffs every 4 hours as needed for wheezing and coughing 3units Criselda Herrera, BEAD PREPARER 04/12/2014 Xarelto 20mg Tablets 1 by mouth every day Harjeet Jason FACC Advair Diskus 500-50mcg/Dose Aeros ol inhale one puff by mouth every day 60units Vivian Herrera, BEAD PREPARER Diltiazem HCL 60mg Tablets 1 tab by mouth once a hs Unknown Lumigan 0.01% Solution one gtt. each eye at at bedtime Unknown History Medications Torsemide 10mg Tablets take 1 tablet every morning Unknown 11/27/2019 - Levofloxacin 750mg Tablets daily by mouth daily for 10 days 10tabs Criselda Herrera FNP 0 - 10/20/2019 Lasix 40mg Tablets take one tablet by mouth every morning and as needed in the afternoon 180tabs Criselda Herrera FNP 08/20/2019 - 11/30/2019 Levaquin 750 mg tab Take 1 tab [...] /24 hours. 5tabs Unknown 08/07/2019 - 020 Tylenol PM Extra Strength 500-25mg Tablets take 1 tablets before bed as scheduled Un known 07/19/2019 - 07/21/2019 Benadryl Allergy 25mg Capsules one tab by mouth every night at bedtime as needed for sleep along with Tylenol 650 mg. Unknown 07/19/2019 - 07/21/2019 Tizanidine HCL 4mg Capsules 1 by mouth three times a day as needed for muscle spasm Unk nown 07/19/2019 - 11/30/2019 Furosemide 20mg Tablets take one tablet by mouth twice a day R60.0 Unknown 07/19/2019 - 0 08/09/2019 Acetaminophen 325mg Tablets 2 by mouth every 4 hours as needed for pain/fever Unknown 07/19/2019 - 08/09/2019 Lidocaine Pain Relief 4% Patches one on left knee every morning and removed after 12 hours. 10unNuzhat Barroso M.D. 06/30/2019 - 07/06/2019 Furosemide 40mg Tablets take one tablet by mouth daily R60.0 Unknown 06/29/2019 - 03/2019 K-Tab 20Meq Tablets ER 1 tablet twice a day. (for total 40 Meq) Unknown 06/29/19 20 - 08/09/2019 Tramadol HCL 50mg Tablets take 1 tablet by mouth every 6 hours as needed for pain ( Ncog for bilateral knee pain) Unknown 06/29/2019 - 08/09/2019 Lidocaine 4% Cream apply to the affected areas up to 3 times a day for discomfort Unknown 06/29/2019 - 12/16/2019 Brimatoprost Eye Drops Use daily per instruction of eye doctor Unknown 06/29/2019 - 12/16/2019 Metolazone 2.5mg Tablets 1 tab by mouth 30 minutes prior to taking Lasix 40 mg twice a day. Unknown 06/29/2019 - 07/06/2019 Immunizations CPT Code Status Date Vaccine Lot # [id number] Given 03/25/2018 Pneumococcal Vaccine [id number] Given 12/09/2017 Influenza Virus Vaccine, Quadrivalent,age 3 and up,multidose vial [id number] Q2038 Given 12/04/2016 Influenza Vaccine (Fluzone)( medicare) [id number] Given 11/14/2015 Influenza Vaccine (Fluzone)( medicare) [id number] Given 10/12/2015 Prevnar 13 For Adults 83521 Given 11/17/2013 Influenza Vaccination 40523 Given 11/18/2007 Influenza Vaccination [id number] 81058 Given 12/12/2006 Influenza Vaccination [id number] Vital Signs Date Vital Result Comment 12/16/2019 1:37pm BP Systolic 109 mmHg BP Diastolic 53 mmHg Heart Rate 70 /min Body Temperature 97.3 F Respiratory Rate 22 /min Height 61.5 inches 5'1.50" Weight 251.38 lb O2 % BldC Oximetry 94 % on room air Peak Expiratory Flow Rate 292 Estimated Peak Flow Rate [place] Body Weight 105 lb BMI (Body Mass Index) 46.7 kg/m2 12/02/2019 3:59pm BP Systolic 116 mmHg BP Diastolic 65 mmHg Heart Rate 83 /min Body Temperature 97.2 F Respiratory Rate 24 /min Height 61.5 inches 5'1.50" Weight 266.00 lb O2 % BldC Oximetry 95 % Peak Expiratory Flow Rate 293 Estimated Peak Flow Rate [place] Body Weight 105 lb BMI (Body Mass Index) 49.4 kg/m2 Results Test Acquired Date Facility Test Result H/L Range Note Laboratory test finding 12/02/2019 [place] [address] [phone] Sars Covid-19 Amplification NEGATIVE Normal Nega tive 1 Venous Blood Gas 12/02/2019 [place] [address] [phone] Venous PH 7.482 units High 7.330-7.430 Venous Partial Pressure Co2 37.5 mmHg Low 38.0-50.0 Venous Partial Pressure O2 135.7 mmHg High 30.0-50.0 Venous Total Co2 28.6 mEq/L High 24.0-28.0 Venous Hco3 27.4 mEq/L High 23.0-27.0 Venous Base Excess 3.9 High -2.0-2.0 Venous Standard Hco3 28.0 mEq/L Normal Venous O2 Saturation 98.9 % High 60.0-80.0 CBC With Differential 12/02/2019 [place] [address] [phone] White Blood Count 8.8 10 Normal 4.0-10.0 [...] 36.0-66.0 Lymph % 10.9 % Low 24.0-44.0 [place] % 7.1 % High 0.0-5.0 Eos % 1.9 % Normal 0.0-3.0 Baso % 0.5 % Normal 0.0-1.0 Immature Granulocyte % 0.6 % Normal 0-3.0 Nucleated Red Blood Cell % 0.0 % Normal 0-0 Neutrophils # 6.9 10 Normal 1.5-8.5 Lymph # 1.0 10 Low 1.5-5.0 [place] # 0.6 10 Normal 0.0-0.8 Eos # 0.2 10 Normal 0.0-0.5 Baso # 0.0 10 Normal 0.0-0.2 Prothrombin Time/Inr 12/02/[address] [place] [address] [phone] Prothrombin Time 19.4 seconds High 12.5-14.3 Inr 1.60 Normal 2 Liver Profile 12/02/2019 Patient Service [facility] [place] [address] [phone] Ast/Sgot 7 U/L Normal 7-37 Alt/SGPT 11 U/L Low 12-78 Alkaline Phosphatase 59 U/L Normal 45-117 Bilirubin,Total 0.7 mg/dL Normal 0.2-1.0 Bilirubin,Direct 0.3 mg/dL High 0.0-0.2 Total Protein 5.6 GM/DL Low 6.4-8.2 Albumin 3.2 GM/DL Normal 3.2-5.2 Albumin/Globulin Ratio 1.3 Normal 1.2-2.2 Laboratory test finding 12/02/2019 [place] [address] [phone] NT-Pro BNP 377 pg/mL Normal <450 Phenobarbital Level 2.1 UG/ML Low 15.0-40.0 Thyroid Stimulating Hormone 1.970 uIU/ML Normal 0.358-3.740 Lactic Acid Sepsis Protocol 1.4 mmol/L Normal 0.4-2.0 3 Laboratory test finding 12/02/2019 [place] [address] [phone] iSTAT Troponin 0.00 NG/ML Normal 0.00-0.08 Istat Chem8+ Panel 12/02/2019 Patient Service [place] [id number] [phone] iSTAT HCT 31.0 % Low 38.0-51.0 iSTAT Glucose 116 mg/dL High 70-105 iSTAT Sodium 140 mEq/L Normal 136-145 iSTAT Potassium 3.8 mEq/L Normal 3.5-5.1 iSTAT CA++ 4.8 mg/dL Normal 4.5-5.3 iSTAT Chloride 99 mEq/L Normal 98-109 iSTAT Co2 28.0 MM/L High 23.0-27.0 iSTAT BUN 17 mg/dL Normal 8-26 iSTAT Creatinine 1.1 mg/dL Normal 0.6-1.3 Laboratory test finding 11/24/2019 [place] [address] [phone] NT-Pro BNP 244 pg/mL Normal <450 Thyroid Stimulating Hormone 2.460 uIU/ML Normal 0.358-3.740 C Reactive Protein Quantitativ 0.77 mg/dL High 0.00-0.30 Basic Metabolic Profile 11/24/2019 [place] [address] [phone] Glucose, Fasting 139 mg/dL High 70-100 Blood [...] Normal 8.8-10.2 Liver Profile 11/24/2019 [place] [address] [phone] Ast/Sgot 7 U/L Normal 7-37 Alt/SGPT 12 U/L Normal 12-78 Alkaline Phosphatase 56 U/L Normal 45-117 Bilirubin,Total 0.9 mg/dL Normal 0.2-1.0 Bilirubin,Direct 0.3 mg/dL High 0.0-0.2 Total Protein 5.5 GM/DL Low 6.4-8.2 Albumin 3.2 GM/DL Normal 3.2-5.2 Albumin/Globulin Ratio 1.4 Normal 1.2-2.2 Cardiac Marker Panel 11/24/[address] [place] [address] [phone] CPK Creatine Phosphokinase 26 U/L Normal 26-19 2 CK-MB Value Mass 1.2 NG/ML Normal <3.6 MB/CK Relative Index 4.62 High < Or =4 5 Troponin I < 0.02 NG/ML Normal < 0.10 6 Laboratory test finding 11/24/2019 [place] [address] [phone] Erythrocyte Sedimentation Rate 11 mm/hr Normal 0 -30 CBC With Differential 11/24/2019 [place] [address] [phone] White Blood Count 8.2 10 Normal 4.0-10.0 [...] 36.0-66.0 Lymph % 10.7 % Low 24.0-44.0 [place] % 5.6 % High 0.0-5.0 Eos % 2.1 % Normal 0.0-3.0 Baso % 0.5 % Normal 0.0-1.0 Immature Granulocyte % 0.6 % Normal 0-3.0 Nucleated Red Blood Cell % 0.0 % Normal 0-0 Neutrophils # 6.6 10 Normal 1.5-8.5 Lymph # 0.9 10 Low 1.5-5.0 [place] # 0.5 10 Normal 0.0-0.8 Eos # 0.2 10 Normal 0.0-0.5 Baso # 0.0 10 Normal 0.0-0.2 Venous Blood Gas 10/10/[address] [place] [address] [phone] Venous PH 7.380 units Normal 7.330-7.430 Venous Partial Pressure Co2 42.1 mmHg Normal 38.0-50.0 Venous Partial Pressure O2 66.4 mmHg High 30.0-50.0 Venous Total Co2 24.3 mEq/L Normal 24.0-28.0 Venous Hco3 24.3 mEq/L Normal 23.0-27.0 Venous Base Excess -0.8 Normal -2.0-2.0 Venous Standard Hco3 23.7 mEq/L Normal Venous O2 Saturation 91.3 % High 60.0-80.0 CBC With Differential 10/10/2019 Patient Service Ce nter [facility] [place], [place] [id number] [phone] White Blood Count 9.0 10 Normal 4.0-10.0 [...] 36.0-66.0 Lymph % 13.0 % Low 24.0-44.0 [place] % 5.9 % High 0.0-5.0 Eos % 0.2 % Normal 0.0-3.0 Baso % 0.2 % Normal 0.0-1.0 Immature Granulocyte % 0.7 % Normal 0-3.0 Nucleated Red Blood Cell % 0.0 % Normal 0-0 Neutrophils # 7.2 10 Normal 1.5-8.5 Lymph # 1.2 10 Low 1.5-5.0 [place] # 0.5 10 Normal 0.0-0.8 Eos # 0.0 10 Normal 0.0-0.5 Baso # 0.0 10 Normal 0.0-0.2 Laboratory test finding 10/10/2019 [place] [address] [phone] Lactic Acid Sepsis Protocol 2.0 mmol/L Normal 0.4- 2.0 7 Cardiac Marker Panel 10/10/2019 Patient Service [facility] [place] [address] [phone] CPK Creatine Phosphokinase 25 U/L Low 26-19 2 CK-MB Value Mass 1.0 NG/ML Normal <3.6 MB/CK Relative Index 4.00 Normal < Or =4 8 Troponin I < 0.02 NG/ML Normal < 0.10 9 Liver Profile 10/10/2019 Patient Service [facility] [place] [address] [phone] Ast/Sgot 11 U/L Normal 7-37 Alt/SGPT 10 U/L Low 12-78 Alkaline Phosphatase 56 U/L Normal 45-117 Bilirubin,Total 0.6 mg/dL Normal 0.2-1.0 Bilirubin,Direct 0.2 mg/dL Normal 0.0-0.2 Total Protein 5.7 GM/DL Low 6.4-8.2 Albumin 3.4 GM/DL Normal 3.2-5.2 Albumin/Globulin Ratio 1.5 Normal 1.2-2.2 Basic Metabolic Profile 10/10/2019 [place] [address] [phone] Glucose, Fasting 108 mg/dL High 70-100 Blood Urea Nitrogen 17 mg/dL Normal 7-18 Creatinine For GFR 1.25 mg/dL Normal 0.55-1.30 Glomerular Filtration Rate 44.2 Normal >39 1 0 Sodium Level 141 mEq/L Normal 136-145 Potassium Serum 3.9 mEq/L Normal 3.5-5.1 Chloride Level 106 mEq/L Normal 98-107 Carbon Dioxide Level 29 mEq/L Normal 21-32 Anion Gap 6 mEq/L Low 8-16 Calcium Level 9.6 mg/dL Normal 8.8-10.2 Laboratory test finding 10/10/2019 [facility] [place], [place] [address] [phone] NT-Pro BNP 264 pg/mL Normal <450 Thyroxine (T4) 8.4 g/dL Normal 4.5-12.0 Thyroid Stimulating Hormone 1.340 uIU/ML Normal 0.358-3.740 Laboratory test finding 08/29/2019 [facility] [phone] Magnesium Level 2.0 mg/dL Normal 1.8-2.4 Comprehensive Metabolic Profil 08/29/2019 [facility] [phone] Glucose, Fasting 132 mg/dL High 70-100 Blood Urea Nitrogen 12 mg/dL Normal 7-18 Creatinine For GFR 1.14 mg/dL Normal 0.55-1.30 Glomerular Filtration Rate 49.2 Normal >39 1 1 Sodium Level 141 mEq/L Normal 136-145 [...] Normal 3.2-5.2 Albumin/Globulin Ratio 1.4 Normal 1.2-2.2 Lipid Panel 08/29/2019 [facility] nter [phone] Triglycerides Level 75 mg/dL Normal <150 Cholesterol Level 121 mg/dL Normal <200 HDL Cholesterol 50 mg/dL Normal >40 LDL Cholesterol 56 mg/dL Normal <100 Non-HDL-C 71 mg/dL Normal Cholesterol Risk Ratio 2.420 Normal <5 Hemoglobin A1c 08/29/2019 [facility] nter [phone] Hemoglobin A1c 8.1 % Normal 12 Estimated Average Glucose 186 mg/dL High 60-110 Basic Metabolic Profile 08/23/2019 Patient Service [place], [place] [address] [phone] Glucose, Fasting 163 mg/dL High 70-100 Blood [...] 8.8-10.2 Complete Blood Count 07/27/2019 Patient Service [place], [place] [address] [phone] White Blood Count 10.9 10 High 4.0-10.0 [...] 0-0 Laboratory test finding 07/27/2019 Patient Service [place], [place] [address] [phone] Erythrocyte Sedimentation Rate 23 mm/hr Normal 0 -30 Basic Metabolic Profile 07/27/2019 [place] [address] [phone] Glucose, Fasting 159 mg/dL High 70-100 Blood [...] Laboratory test finding 07/27/2019 [place] [address] [phone] Vancomycin Level Trough 11.9 UG/ML Normal 10.0-20. 0 C Reactive Protein Quantitativ 1.74 mg/dL High 0.00-0.30 Basic Metabolic Profile 07/20/2019 [place] [address] [phone] Glucose, Fasting 142 mg/dL High 70-100 Blood [...] 8.8-10.2 Laboratory test finding 07/20/2019 [place] [address] [phone] C Reactive Protein Quantitativ 3.25 mg/dL High 0 .00-0.30 CBC With Differential 07/20/2019 [place] [address] [phone] White Blood Count 13.2 10 High 4.0-10.0 [...] 36.0-66.0 Lymph % 10.2 % Low 24.0-44.0 [place] % 6.1 % High 0.0-5.0 Eos % 1.7 % Normal 0.0-3.0 Baso % 0.5 % Normal 0.0-1.0 Immature Granulocyte % 1.7 % Normal 0-3.0 Nucleated Red Blood Cell % 0.0 % Normal 0-0 Neutrophils # 10.5 10 High 1.5-8.5 Lymph # 1.3 10 Low 1.5-5.0 [place] # 0.8 10 Normal 0.0-0.8 Eos # 0.2 10 Normal 0.0-0.5 Baso # 0.1 10 Normal 0.0-0.2 Laboratory test finding 07/20/2019 [place] [address] [phone] Erythrocyte Sedimentation Rate 41 mm/hr High 0 -30 Laboratory test finding 07/06/2019 [place] [address] [phone] C Reactive Protein Quantitativ 6.10 mg/dL High 0 .00-0.30 Lactic Acid Sepsis Protocol 2.1 mmol/L Critical high 0.4-2.0 16 Basic Metabolic Profile 07/06/2019 [place] [address] [phone] Glucose, Fasting 152 mg/dL High 70-100 Blood [...] 8-16 Calcium Level 8.6 mg/dL Low 8.8-10.2 Liver Profile 07/06/2019 [place] [address] [phone] Ast/Sgot 7 U/L Normal 7-37 Alt/SGPT 17 U/L Normal 12-78 Alkaline Phosphatase 54 U/L Normal 45-117 Bilirubin,Total 0.7 mg/dL Normal 0.2-1.0 Bilirubin,Direct 0.3 mg/dL High 0.0-0.2 Total Protein 5.5 GM/DL Low 6.4-8.2 Albumin 3.1 GM/DL Low 3.2-5.2 Albumin/Globulin Ratio 1.3 Normal 1.2-2.2 Laboratory test finding 07/06/2019 [place] [address] [phone] Erythrocyte Sedimentation Rate 23 mm/hr Normal 0 -30 CBC With Differential 07/06/2019 [place] [address] [phone] White Blood Count 12.4 10 High 4.0-10.0 [...] 36.0-66.0 Lymph % 9.8 % Low 24.0-44.0 [place] % 6.1 % High 0.0-5.0 Eos % 0.6 % Normal 0.0-3.0 Baso % 0.3 % Normal 0.0-1.0 Immature Granulocyte % 1.5 % Normal 0-3.0 Nucleated Red Blood Cell % 0.0 % Normal 0-0 Neutrophils # 10.1 10 High 1.5-8.5 Lymph # 1.2 10 Low 1.5-5.0 [place] # 0.8 10 Normal 0.0-0.8 Eos # 0.1 10 Normal 0.0-0.5 Baso # 0.0 10 Normal 0.0-0.2 Laboratory test finding 07/06/2019 [place] [address] [phone] Partial Thromboplastin Time 33.2 seconds Normal 25 .0-38.4 Prothrombin Time/Inr 07/06/[address] [place] [address] [phone] Prothrombin Time 21.1 seconds High 11.8-14.0 Inr 1.85 Normal 18 Istat Chem8+ Panel 07/04/2019 Patient Service [facility] [place] [address] [phone] iSTAT HCT 37.0 % Low 38.0-51.0 iSTAT Glucose 163 mg/dL High 70-105 iSTAT Sodium 140 mEq/L Normal 136-145 iSTAT Potassium 3.8 mEq/L Normal 3.5-5.1 iSTAT CA++ 5.0 mg/dL Normal 4.5-5.3 iSTAT Chloride 101 mEq/L Normal 98-109 iSTAT Co2 28.0 MM/L High 23.0-27.0 iSTAT BUN 21 mg/dL Normal 8-26 iSTAT Creatinine 1.1 mg/dL Normal 0.6-1.3 Blood Culture 07/04/2019 [place] [address] [phone] Blood Culture No growth after <SEE NOTE> 19 CBC With Differential 07/04/2019 [place] [address] [phone] White Blood Count 12.0 10 High 4.0-10.0 Red Blood Count 4.28 10 Normal 4.00-5.40 Hemoglobin 12.0 g/dL Normal 12.0-15.5 Hematocrit 38.3 % Normal 36.0-47.0 Mean Corpuscular Volume 89.5 fl Normal 80.0-96.0 Mean Corpuscular Hemoglobin 28.0 pg Normal 27.0-33.0 Mean Corpuscular HGB Conc 31.3 g/dL Low 32.0-36.5 Red Cell Distribution Width 16.7 % High 11.5-14.5 Platelet Count, Automated 173 10 Normal 150-450 Neutrophils % 76.9 % High 36.0-66.0 Lymph % 14.8 % Low 24.0-44.0 [place] % 5.8 % High 0.0-5.0 Eos % 0.8 % Normal 0.0-3.0 Baso % 0.2 % Normal 0.0-1.0 Immature Granulocyte % 1.5 % Normal 0-3.0 Nucleated Red Blood Cell % 0.0 % Normal 0-0 Neutrophils # 9.2 10 High 1.5-8.5 Lymph # 1.8 10 Normal 1.5-5.0 [place] # 0.7 10 Normal 0.0-0.8 Eos # 0.1 10 Normal 0.0-0.5 Baso # 0.0 10 Normal 0.0-0.2 Laboratory test finding 07/04/2019 [place] [address] [phone] Erythrocyte Sedimentation Rate 6 mm/hr Normal 0 -30 Lactic Acid Sepsis Protocol 1.2 mmol/L Normal 0.4-2.0 20 Basic Metabolic Profile 07/04/2019 [place] [address] [phone] Glucose, Fasting 158 mg/dL High 70-100 Blood Urea Nitrogen 21 mg/dL High 7-18 Creatinine For GFR 1.01 mg/dL Normal 0.55-1.30 Glomerular Filtration Rate 56.6 Normal >39 2 1 Sodium Level 142 mEq/L Normal 136-145 Potassium Serum 3.9 mEq/L Normal 3.5-5.1 Chloride Level 106 mEq/L Normal 98-107 Carbon Dioxide Level 31 mEq/L Normal 21-32 Anion Gap 5 mEq/L Low 8-16 Calcium Level 8.7 mg/dL Low 8.8-10.2 Laboratory test finding 07/04/2019 [place] [address] [phone] C Reactive Protein Quantitativ 0.65 mg/dL High 0 .00-0.30 Blood Culture 07/04/2019 [place] [address] [phone] Blood Culture No growth after <SEE NOTE> 22 1 A false negative result may occur [...] pathogens. DISCLAIMER: Testing was performed using the [employer] SARS-CoV-2 test. This test was developed and its performance characteristics determined by [employer]. This test has not been FDA cleared [...] Little GFR Left ESRD GFR <15 on GRAVITY PROSPECTING OBSERVER 5 DIAGNOSIS CRITERIA MMB ng/ml Relative Index (RI) NON-AMI < or = 5 N/A GOYAL ZONE > 5 < or = 4 AMI > 5 > 4 6 Troponin I Reference Interva l for Siemens [place] LOCI: 99th Percentile= 0.00-0.045 ng/ml Risk Stratification: <= 0.10 ng/ml Decreased Risk for Adverse Clinical Events. 0.10-1.50 ng/ml Increased Risk for Adv erse Clinical Events. Evaluation of additional criterion and/or repeat testing in 2-6 hours is suggested to rule out myocardial damage. >= 1.50 ng/ml Indicative of Myocardial Injury. 7 Y/N query for Sepsis Lactate Rule: Y 8 DIAGNOSIS CRITERIA MMB ng/ml Relative Index (RI) NON-AMI < or = 5 N/A GOYAL ZONE > 5 < or = 4 AMI > 5 > 4 9 Troponin I Reference Interva l for [place] LOCI: 99th Percentile= 0.00-0.045 ng/ml Risk Stratification: <= 0.10 ng/ml Decreased Risk for Adverse Clinical Events. 0.10-1.50 ng/ml Increased Risk for Adv erse Clinical Events. Evaluation of additional criterion and/or repeat testing in 2-6 hours is suggested to rule out myocardial damage. >= 1.50 ng/ml Indicative of Myocardial Injury. 10 Units are mL/min/1.73 m2 Chronic Kidney Disease Staging per NKF: Stage I & II GFR >=60 Normal to Mildly Decreased Stage III GFR 30-59 Moderately Decreased Stage IV GFR 15-29 Severely Decreased Stage V GFR <15 Very Little GFR Left ESRD GFR <15 on GRAVITY PROSPECTING OBSERVER 11 Units are mL/min/1.73 m2 Chronic Kidney Disease Staging per NKF: Stage I & II GFR >=60 Normal to Mildly Decreased Stage III GFR 30-59 Moderately Decreased Stage IV GFR 15-29 Severely Decreased Stage V GFR <15 Very Little GFR Left ESRD GFR <15 on GRAVITY PROSPECTING OBSERVER 12 REFERENCE RANGES: 4.5-5.6% NORMAL 5.7-6.4% SUGGESTS IMPAIRED GLUCOSE META BOLISM >= 6.5% ABNORMAL 13 Units are mL/min/1.73 m2 Chronic Kidney Disease Staging per NKF: Stage I & II GFR >=60 Normal to Mildly Decreased Stage III GFR 30-59 Moderately Decreased Stage IV GFR 15-29 Severely Decreased Stage V GFR <15 Very Little GFR Left ESRD GFR <15 on GRAVITY PROSPECTING OBSERVER 14 Units are mL/min/1.73 m2 Chronic Kidney Disease Staging per NKF: Stage I & II GFR >=60 Normal to Mildly Decreased Stage III GFR 30-59 Moderately Decreased Stage IV GFR 15-29 Severely Decreased Stage V GFR <15 Very Little GFR Left ESRD GFR <15 on GRAVITY PROSPECTING OBSERVER 15 Units are mL/min/1.73 m2 Chronic Kidney Disease Staging per NKF: Stage I & II GFR >=60 Normal to Mildly Decreased Stage III GFR 30-59 Moderately Decreased Stage IV GFR 15-29 Severely Decreased Stage V GFR <15 Very Little GFR Left ESRD GFR <15 on GRAVITY PROSPECTING OBSERVER 16 Y/N query for Sepsis Lactate Rule: Y 17 Units are mL/min/1.73 m2 Chronic Kidney Disease Staging per NKF: Stage I & II GFR >=60 Normal to Mildly Decreased Stage III GFR 30-59 Moderately Decreased Stage IV GFR 15-29 Severely Decreased Stage V GFR <15 Very Little GFR Left ESRD GFR <15 on GRAVITY PROSPECTING OBSERVER 18 THERAPUTIC HUMAN INR VALUES INDICATIONS NORMAL RANGES PROPHYLAXIS/TREATMENT OF: VENOUS THROMBOSIS 2.0-3.0 PULMONARY EMBOLISM 2.0-3.0 PREVENTION OF SYSTEMIC EMBOLISM FROM: TISSUE HEART VALVES 2.0-3.0 ACUTE MYOCARDIAL INFARCTION 2.0-3.0 VALVULAR HEART DISEASE 2.0-3.0 ATRIAL FIBRILLATION 2.0-3.0 MECHANICAL VALVES(HIGH RISK) 2.5-3.5 RECURRENT MYOCARDIAL INFARCTION 2.5-3.5 19 No growth after 72 hours . A ll specimens observed for 5 days. Results final at that time. No growth after 48 hours . All specimens observed for 5 days. Results final at that time. No growth after 24 hours . All specimens observed for 5 days. Results final at that time. NO GROWTH AFTER 5 DAYS 20 Y/N query for Sepsis Lactate Rule: Y 21 Units are mL/min/1.73 m2 Chronic Kidney Disease Staging per NKF: Stage I & II GFR >=60 Normal to Mildly Decreased Stage III GFR 30-59 Moderately Decreased Stage IV GFR 15-29 Severely Decreased Stage V GFR <15 Very Little GFR Left ESRD GFR <15 on GRAVITY PROSPECTING OBSERVER 22 No growth after 72 hours . A ll specimens observed for 5 days. Results final at that time. No growth after 48 hours . All specimens observed for 5 days. Results final at that time. No growth after 24 hours . All specimens observed for 5 days. Results final at that time. 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 I48.91 Unspecified atrial fibrillat ion I70.212 [facility] [place] [facility] of ex trm w intrmt damaris, [...] E83.42 Hypomagnesemia R60.0 Localized edema I70.212 [facility] [place] arteries of ex trm w intrmt damaris, [...] and diastolic (congestive) heart failure Pleskach, Criselda, BEAD PREPARER 12/16/2019 I48.91 Unspecified atrial fibrillation Pleskach, Criselda, BEAD PREPARER 12/16/2019 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, left leg Pleskach, Criselda, BEAD PREPARER 12/16/2019 E11.69 Type 2 diabetes mellitus with ot her specified complication Pleskach, Criselda, BEAD PREPARER 12/16/2019 J44.1 Chronic obstructive pulmonary disease with (acute) exacerbation Pleskach, Criselda, BEAD PREPARER 12/02/2019 I50.23 Acute on chronic systolic (conge stive) heart failure Pleskach, Criselda, BEAD PREPARER 11/24/2019 L03.116 Cellulitis of left lower limb Pl Crisleda connor, [facility] 11/24/2019 R06.00 Dyspnea, unspecified PleskachLeslyly, [facility] 11/09/2019 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 Pleskach, Criselda, BEAD PREPARER 11/09/2019 E11.69 Type 2 diabetes mellitus with ot her specified complication Pleskach, Criselda, BEAD PREPARER 11/09/2019 I48.91 Unspecified atrial fibrillation Pleskach, Criselda, BEAD PREPARER 11/09/2019 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, left leg Pleskach, Criselda, BEAD PREPARER 11/09/2019 J44.1 Chronic obstructive pulmonary disease with (acute) exacerbation Pleskach, Criselda, BEAD PREPARER 10/20/2019 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 Pleskach, Criselda, BEAD PREPARER 10/20/2019 E11.69 Type 2 diabetes mellitus with ot her specified complication Pleskach, Criselda, BEAD PREPARER 10/20/2019 I48.91 Unspecified atrial fibrillation Pleskach, Criselda, BEAD PREPARER 10/20/2019 E87.6 Hypokalemia Pleskach, Criselda, BEAD PREPARER 10/20/2019 E83.42 Hypomagnesemia Pleskach, Criselda, BEAD PREPARER 10/20/2019 R60.0 Localized edema Criselda Herrera, BEAD PREPARER 10/20/2019 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, left leg Criselda Herrera, BEAD PREPARER 10/20/2019 J44.9 Chronic obstructive pulmonary di sease, unspecified Criselda Herrera, BEAD PREPARER 10/18/2019 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 10/18/2019 E11.69 Type 2 diabetes mellitus with ot her specified complication Nuzhat Langley M.D. 10/18/2019 I48.91 Unspecified atrial fibrillation Nuzhat Langley M.D. 10/18/2019 E87.6 Hypokalemia Nuzhat Langley M.D. 10/18/2019 E83.42 Hypomagnesemia Nuzhat Langley M.D. 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 Criselda Herrera, BE[employer] PREPARER 09/20/2019 E11.69 Type 2 diabetes mellitus with ot her specified complication Criselda Herrera, BEAD PREPARER 09/20/2019 E87.6 Hypokalemia Criselda Herrera, BEAD PREPARER 09/20/2019 E83.42 Hypomagnesemia Criselda Herrera, BEAD PREPARER 09/20/2019 J44.1 Chronic obstructive pulmonary disease with (acute) exacerbation Criselda Herrera, BEAD PREPARER 09/20/2019 E66.01 Morbid (severe) obesity due to e xcess calories Criselda Herrera, BEAD PREPARER 09/20/2019 I48.91 Unspecified atrial fibrillation Moe Herreray, BEAD PREPARER 09/08/2019 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 09/08/2019 E83.42 Hypomagnesemia Nuzhat Langley M.D. 09/08/2019 E87.6 Hypokalemia Nuzhat Langley M.D. 09/08/2019 J44.1 Chronic obstructive pulmonary disease with (acute) exacerbation Nuzhat Langley M.D. 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 Criselda Herrera, BEAD PREPARER 09/06/2019 E87.6 Hypokalemia Criselda Herrera, BEAD PREPARER 09/06/2019 E83.42 Hypomagnesemia Criselad Herrera, [facility] 09/06/2019 J44.1 Chronic obstructive pulmonary disease with (acute) exacerbation Criselda Herrera, [facility] 09/06/2019 E66.01 Morbid (severe) obesity due to e xcess calories Criselda Herrera, [facility] 09/06/2019 I48.91 Unspecified atrial fibrillation Criselda Herrera, BEAD PREPARER 07/21/2019 L03.116 Cellulitis of left lower limb [...] for screening for othe r disorder Criselda Herrera, BEAD PREPARER 07/06/2019 L03.116 Cellulitis of left lower limb Pl esCriselda jean-baptiste BEAD PREPARER 07/06/2019 E87.6 Hypokalemia Criselda Herrera [facility] 07/06/2019 E83.42 Hypomagnesemia Criselda Herrera, [facility] 07/01/2019 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 07/01/2019 E11.69 Type 2 diabetes mellitus with ot her specified complication Nuzhat Langley M.D. 07/01/2019 J44.1 Chronic obstructive pulmonary disease with (acute) exacerbation Nuzhat Langley M.D. Plan of Treatment Future [...] to Reason for Referral Status Appt Date [facility] referring for PAD, LLE redness and swelling and pain Closed 12/07/2019 [address] [facility], [address] [place], [place] [id number] [phone] [facility] referring for PAD, LLE redness and swelling and pain Patient Declined 12/21/2019 [address] [facility], [address] [place], [place] [id number] [phone] Roberto Wallace MD former pt of dr whipple/brant, wants to transfer her cardiac care to dr. wallace. pt is aware she needs to contact brant's office and have all her records sent to you. Sent [id number] [place] [address] [phone]
--- OUTSIDE RECORDS SUMMARY | 2020-03-07 19:52 | CCD ---
Author Author [facility] Organization [facility] Address Unknown Phone Unavailable Care Team Providers Care Hedis Abstractor Name Role Phone Zachary Langley MD Unavailable Unavailable Zachary Langley MD Unavailable Unavailable Zachary Langley MD Unavailable Unavailable Zachary Langley MD Unavailable Unavailable Zachary Langley MD Unavailable Unavailable Zachary Langley MD Unavailable Unavailable Zachary Langley MD Unavailable Unavailable Zachary Langley MD Unavailable Unavailable Zachary Langley MD Unavailable Unavailable Zachary Langley MD Unavailable Unavailable Zachary Langley MD Unavailable Unavailable Zachary Langley MD Unavailable Unavailable Zachary Langley MD Unavailable Unavailable Zachary Langley MD Unavailable Unavailable Zachary Langley MD Unavailable Unavailable Zachary Langley MD Unavailable Unavailable Zachary Langley MD Unavailable Unavailable Zachary Langley MD Unavailable Unavailable Zachary Langley MD Unavailable Unavailable Zachary Langley MD Unavailable Unavailable Zachary Langley MD Unavailable Unavailable Zachary Langley MD Unavailable Unavailable Zachary Langley MD Unavailable Unavailable Zachary Langley MD Unavailable Unavailable Zachary Langley MD Unavailable Unavailable Zachary Langley MD Unavailable Unavailable Shivam, Zachary Noland MD Unavailable Unavailable Shivam, Zachary Noland MD Unavailable Unavailable Shivam, Zachary Noland MD Unavailable Unavailable Shivam, Zachary Noland MD Unavailable Unavailable Shivam, Zachary Noland MD Unavailable Unavailable Shivam, Zachary Noland MD Unavailable Unavailable Shivam, Zachary Noland MD Unavailable Unavailable Shivam, Zachary Noland MD Unavailable Unavailable Shivam, Zachary Noland MD Unavailable Unavailable Shivam, Zachary Noland MD Unavailable Unavailable Sihvam, Zachary Noland MD Unavailable Unavailable Shivam, Zachary Noland MD Unavailable Unavailable Shivam, Zachary Noland MD Unavailable Unavailable Shivam, Zachary Noland MD Unavailable Unavailable Shivam, Zachary Noland MD Unavailable Unavailable Shivam, Zachary Noland MD Unavailable Unavailable Shivam, Zachary Noland MD Unavailable Unavailable Shivam, Zachary Noland MD Unavailable Unavailable Shivam, Zachary Noland MD Unavailable Unavailable Shivam, Zachary Noland MD Unavailable Unavailable Shivam, Zachary Noland MD Unavailable Unavailable Shivam, Zachary Noland MD Unavailable Unavailable Shivam, Zachary Noland MD Unavailable Unavailable Shivam, Zachary Noland MD Unavailable Unavailable Shivam, Zachary Noland MD Unavailable Unavailable Shivam, Zachary Noland MD Unavailable Unavailable Shivam, Zachary Noland MD Unavailable Unavailable Shivam, Zachary Noland MD Unavailable Unavailable Shivam, Zachary Noland MD Unavailable Unavailable Shivam, Zachary Noland MD Unavailable Unavailable Shivam, Zachary Noland MD Unavailable Unavailable Shivam, Zachary Noland MD Unavailable Unavailable Shivam, Zachary Noland MD Unavailable Unavailable Shivam, Zachary Noland MD Unavailable Unavailable Shivam, Zachary Noland MD Unavailable Unavailable Shivam, Zachary Noland MD Unavailable Unavailable Shivam, Zachary Noland MD Unavailable Unavailable Shivam, Zachary Noland MD Unavailable Unavailable Shivam, Zachary Noland MD Unavailable Unavailable Shivam, Zachary Noland MD Unavailable Unavailable Shivam, Zachary Noland MD Unavailable Unavailable Shivam, Zachary Noland MD Unavailable Unavailable Shivam, Zachary Noland MD Unavailable Unavailable Shivam, Zachary Noland MD Unavailable Unavailable Shivam, Zachary Noland MD Unavailable Unavailable Shivam, Zachary Noland MD Unavailable Unavailable Shivam, Zachary Noland MD Unavailable Unavailable Shivam, Zachary Noland MD Unavailable Unavailable Shivam, Zachary Noland MD Unavailable Unavailable RENETTA, NAVEEN OSMAN Unavailable Unavailable RENETTA, NAVEEN OSMAN Unavailable Unavailable RENETTA, NAVEEN OSMAN Unavailable Unavailable RENETTA, NAVEEN OSMAN Unavailable Unavailable RENETTA, NAVEEN OSMAN Unavailable Unavailable RENETTA, NAVEEN OSMAN Unavailable Unavailable RENETTA, NAVEEN OSMAN Unavailable Unavailable RENETTA, NAVEEN OSMAN Unavailable Unavailable RENETTA, NAVEEN OSMAN Unavailable Unavailable RENETTA, NAVEEN OSMAN Unavailable Unavailable RENETTA, NAVEEN OSMAN Unavailable Unavailable RENETTA, NAVEEN OSMAN Unavailable Unavailable RENETTA, NAVEEN OSMAN Unavailable Unavailable RENETTA, NAVEEN OSMAN Unavailable Unavailable RENETTA, NAVEEN OSMAN Unavailable Unavailable RENETTA, NAVEEN OSMAN Unavailable Unavailable RENETTA, NAVEEN OSMAN Unavailable Unavailable RENETTA, NAVEEN OSMAN Unavailable Unavailable RENETTA, NAVEEN OSMAN Unavailable Unavailable RENETTA, NAVEEN OSMAN Unavailable Unavailable RENETTA, NAVEEN OSMAN Unavailable Unavailable RENETTA, NAVEEN OSMAN Unavailable Unavailable RENETTA, NAVEEN OSMAN Unavailable Unavailable RENETTA, NAVEEN OSMAN Unavailable Unavailable RENETTA, NAVEEN OSMAN Unavailable Unavailable RENETTA, NAVEEN OSMAN Unavailable Unavailable RENETTA, NAVEEN OSMAN Unavailable Unavailable RENETTA, NAVEEN OSMAN Unavailable Unavailable RENETTA, NAVEEN OSMAN Unavailable Unavailable RENETTA, NAVEEN OSMAN Unavailable Unavailable RENETTA, NAVEEN OSMAN Unavailable Unavailable RENETTA, NAVEEN OSMAN Unavailable Unavailable RENETTA, NAVEEN OSMAN Unavailable Unavailable RENETTA, NAVEEN OSMAN Unavailable Unavailable RENETTA, NAVEEN OSMAN Unavailable Unavailable RENETTA, NAVEEN OSMAN Unavailable Unavailable RENETTA, NAVEEN OSMAN Unavailable Unavailable RENETTA, NAVEEN OSMAN Unavailable Unavailable RENETTA, NAVEEN OSMAN Unavailable Unavailable RENETTA, NAVEEN OSMAN Unavailable Unavailable RENETTA, NAVEEN OSMAN Unavailable Unavailable RENETTA, NAVEEN OSMAN Unavailable Unavailable RENETTA, NAVEEN OSMAN Unavailable Unavailable RENETTA, NAVEEN OSMAN Unavailable Unavailable RENETTA, NAVEEN OSMAN Unavailable Unavailable RENETTA, NAVEEN OSMAN Unavailable Unavailable RENETTA, NAVEEN OSMAN Unavailable Unavailable RENETTA, NAVEEN OSMAN Unavailable Unavailable RENETTA, NAVEEN OSMAN Unavailable Unavailable RENETTA, NAVEEN OSMAN Unavailable Unavailable RENETTA, NAVEEN OSMAN Unavailable Unavailable RENETTA, NAVEEN OSMAN Unavailable Unavailable RENETTA, NAVEEN OSMAN Unavailable Unavailable RENETTA, NAVEEN OSMAN Unavailable Unavailable Rechlin, P Km DO Unavailable Unavailable Rechlin, P Km DO Unavailable Unavailable Rechlin, P Km DO Unavailable Unavailable Rechlin, P Km DO Unavailable Unavailable Rechlin, P Km DO Unavailable Unavailable Rechlin, P Km DO Unavailable Unavailable Rechlin, P Km DO Unavailable Unavailable Rechlin, P Km DO Unavailable Unavailable Rechlin, P Km DO Unavailable Unavailable Rechlin, P Mk DO Unavailable Unavailable Rechlin, P Km DO Unavailable Unavailable Rechlin, P Km DO Unavailable Unavailable Rechlin, P Km DO Unavailable Unavailable Rechlin, P Km DO Unavailable Unavailable Rechlin, P Km DO Unavailable Unavailable Rechlin, P Km DO Unavailable Unavailable Rechlin, P Km DO Unavailable Unavailable Rechlin, P Km DO Unavailable Unavailable Rechlin, P Km DO Unavailable Unavailable Rechlin, P Km DO Unavailable Unavailable Rechlin, P Km DO Unavailable Unavailable Rechlin, P Km DO Unavailable Unavailable Rechlin, P Km DO Unavailable Unavailable Rechlin, P Km DO Unavailable Unavailable Rechlin, P Km DO Unavailable Unavailable Rechlin, P Km DO Unavailable Unavailable Rechlin, P Km DO Unavailable Unavailable Rechlin, P Km DO Unavailable Unavailable Rechlin, P Km DO Unavailable Unavailable Rechlin, P Km DO Unavailable Unavailable Rechlin, P Km DO Unavailable Unavailable Rechlin, P Km DO Unavailable Unavailable Rechlin, P Km DO Unavailable Unavailable Rechlin, P Km DO Unavailable Unavailable Rechlin, P Km DO Unavailable Unavailable Rechlin, P Km DO Unavailable Unavailable Rechlin, P Km DO Unavailable Unavailable Rechlin, P Km DO Unavailable Unavailable Rechlin, P Km DO Unavailable Unavailable Rechlin, P Km DO Unavailable Unavailable Rechlin, P Km DO Unavailable Unavailable Rechlin, P Km DO Unavailable Unavailable Rechlin, P Km DO Unavailable Unavailable Rechlin, P Km DO Unavailable Unavailable Rechlin, P Km DO Unavailable Unavailable Rechlin, P Km DO Unavailable Unavailable Rechlin, P Km DO Unavailable Unavailable Mollison, Jeff Hernández MD Unavailable Unavailable Mollison, Jeff Hernández MD Unavailable Unavailable Mollison, Jeff Hernández MD Unavailable Unavailable Mollison, Jeff Hernández MD Unavailable Unavailable Mollison, Jeff Hernández MD Unavailable Unavailable Mollison, Jeff Hernández MD Unavailable Unavailable Mollison, Jeff Hernández MD Unavailable Unavailable Mollison, Jeff Hernández MD Unavailable Unavailable Mollison, Jeff Hernández MD Unavailable Unavailable Mollison, Jeff Hernández MD Unavailable Unavailable Mollison, Jeff Hernández MD Unavailable Unavailable Mollison, Jeff Hernández MD Unavailable Unavailable Mollison, Jeff Hernández MD Unavailable Unavailable Mollison, Jeff Hernández MD Unavailable Unavailable Mollison, Jeff Hernández MD Unavailable Unavailable Mollison, Jeff Hernández MD Unavailable Unavailable Mollison, Jeff Hernández MD Unavailable Unavailable Mollison, Jeff Hernández MD Unavailable Unavailable Mollison, Jeff Hernández MD Unavailable Unavailable Mollison, Jeff Hernández MD Unavailable Unavailable Mollison, Jeff Hernández MD Unavailable Unavailable Pleskach, Criselda TERRITORY OUTSIDE SALES MANAGER Unavailable Unavailable Pleskach, Criselda TERRITORY OUTSIDE SALES MANAGER Unavailable Unavailable Pleskach, Criselda TERRITORY OUTSIDE SALES MANAGER Unavailable Unavailable Pleskach, Criselda TERRITORY OUTSIDE SALES MANAGER Unavailable Unavailable Pleskach, Criselda TERRITORY OUTSIDE SALES MANAGER Unavailable Unavailable Pleskach, Criselda TERRITORY OUTSIDE SALES MANAGER Unavailable Unavailable Pleskach, Rciselda TERRITORY OUTSIDE SALES MANAGER Unavailable Unavailable Pleskach, Criselda TERRITORY OUTSIDE SALES MANAGER Unavailable Unavailable Pleskach, Criselda TERRITORY OUTSIDE SALES MANAGER Unavailable Unavailable Pleskach, Criselda TERRITORY OUTSIDE SALES MANAGER Unavailable Unavailable Pleskach, Criselda TERRITORY OUTSIDE SALES MANAGER Unavailable Unavailable Pleskach, Criselda TERRITORY OUTSIDE SALES MANAGER Unavailable Unavailable Pleskach, Criselda TERRITORY OUTSIDE SALES MANAGER Unavailable Unavailable Pleskach, Criselda TERRITORY OUTSIDE SALES MANAGER Unavailable Unavailable Pleskach, Criselda TERRITORY OUTSIDE SALES MANAGER Unavailable Unavailable Pleskach, Criselda TERRITORY OUTSIDE SALES MANAGER Unavailable Unavailable Pleskach, Criselda TERRITORY OUTSIDE SALES MANAGER Unavailable Unavailable Pleskach, Criselda TERRITORY OUTSIDE SALES MANAGER Unavailable Unavailable Pleskach, Criselda TERRITORY OUTSIDE SALES MANAGER Unavailable Unavailable Pleskach, Criselda TERRITORY OUTSIDE SALES MANAGER Unavailable Unavailable Pleskach, Criselda TERRITORY OUTSIDE SALES MANAGER Unavailable Unavailable Pleskach, Criselda TERRITORY OUTSIDE SALES MANAGER Unavailable Unavailable Pleskach, Criselda TERRITORY OUTSIDE SALES MANAGER Unavailable Unavailable Pleskach, Criselda TERRITORY OUTSIDE SALES MANAGER Unavailable Unavailable Pleskach, Criselda TERRITORY OUTSIDE SALES MANAGER Unavailable Unavailable Pleskach, Criselda TERRITORY OUTSIDE SALES MANAGER Unavailable Unavailable Pleskach, Criselda TERRITORY OUTSIDE SALES MANAGER Unavailable Unavailable Pleskach, Criselda TERRITORY OUTSIDE SALES MANAGER Unavailable Unavailable Brantley, M Barratt PA Unavailable Unavailable Brantley, M Barratt PA Unavailable Unavailable Brantley, M Barratt PA Unavailable Unavailable Brantley, M Barratt PA Unavailable Unavailable Brantley, M Barratt PA Unavailable Unavailable Brantley, M Barratt PA Unavailable Unavailable Brantley, M Barratt PA Unavailable Unavailable Brantley, M Barratt PA Unavailable Unavailable Brantley, M Barratt PA Unavailable Unavailable Brantley, M Barratt PA Unavailable Unavailable Brantley, M Barratt PA Unavailable Unavailable Brantley, M Barratt PA Unavailable Unavailable Brantley, M Barratt PA Unavailable Unavailable Brantley, M Barratt PA Unavailable Unavailable Brantley, M Barratt PA Unavailable Unavailable Brantley, M Barratt PA Unavailable Unavailable Brantley, M Barratt PA Unavailable Unavailable Brantley, M Barratt PA Unavailable Unavailable Brantley, M Barratt PA Unavailable Unavailable Brantley, M Barratt PA Unavailable Unavailable Brantley, M Barratt PA Unavailable Unavailable Brantley, M Barratt PA Unavailable Unavailable Brantley, M Barratt PA Unavailable Unavailable Brantley, M Barratt PA Unavailable Unavailable Brantley, M Barratt PA Unavailable Unavailable Brantley, M Barratt PA Unavailable Unavailable Brantley, M Barratt PA Unavailable Unavailable NAVEEN JACKSON MD Unavailable Unavailable NAVEEN JACKSON MD Unavailable Unavailable NAVEEN JACKSON MD Unavailable Unavailable NAVEEN JACKSON MD Unavailable Unavailable NAVEEN JACKSON MD Unavailable Unavailable NAVEEN JACKSON MD Unavailable Unavailable NAVEEN JACKSON MD Unavailable Unavailable NAVEEN JACKSON MD Unavailable Unavailable NAVEEN JACKSON MD Unavailable Unavailable ANVEEN JACKSON MD Unavailable Unavailable NAVEEN JACKSON MD Unavailable Unavailable NAVEEN JACKSON MD Unavailable Unavailable NAVEEN JACKSON MD Unavailable Unavailable NAVEEN JACKSON MD Unavailable Unavailable NAVEEN JACKSON MD Unavailable Unavailable NAVEEN JACKSON MD Unavailable Unavailable NAVEEN JACKSON MD Unavailable Unavailable NAVEEN JACKSON MD Unavailable Unavailable NAVEEN JACKSON MD Unavailable Unavailable NAVEEN JACKSON MD Unavailable Unavailable NAVEEN JACKSON MD Unavailable Unavailable NAVEEN JACKSON MD Unavailable Unavailable RENETTA, HODGE MD Unavailable Unavailable RENETTA, HODGE MD Unavailable Unavailable RENETTA, HODGE MD Unavailable Unavailable RENETTA, HODGE MD Unavailable Unavailable RENETTA, HODGE MD Unavailable Unavailable RENETTA, HDOGE MD Unavailable Unavailable RENETTA, HODGE MD Unavailable Unavailable RENETTA, HODGE MD Unavailable Unavailable RENETTA, HODGE MD Unavailable Unavailable RENETTA, HODGE MD Unavailable Unavailable RENETTA, HODGE MD Unavailable Unavailable RENETTA, HODGE MD Unavailable Unavailable RENETTA, HODGE MD Unavailable Unavailable RENETTA, HODGE MD Unavailable Unavailable RENETTA, HOGDE MD Unavailable Unavailable RENETTA, HODGE MD Unavailable Unavailable RENETTA, HODGE MD Unavailable Unavailable RENETTA, HODGE MD Unavailable Unavailable RENETTA, HODGE MD Unavailable Unavailable RENETTA, HODGE MD Unavailable Unavailable RENETTA, HODGE MD Unavailable Unavailable RENETTA, HODGE MD Unavailable Unavailable RENETTA, HODGE MD Unavailable Unavailable RENETTA, HODGE MD Unavailable Unavailable RENETTA, HODGE MD Unavailable Unavailable RENETTA, HODGE MD Unavailable Unavailable RENETTA, HODGE MD Unavailable Unavailable RENETTA, HODGE MD Unavailable Unavailable RENETTA, HODGE MD Unavailable Unavailable RENETTA, HODGE MD Unavailable Unavailable RENETTA, HODGE MD Unavailable Unavailable RENETTA, HODGE MD Unavailable Unavailable SYSTEM IN, NOT IN PROVIDER Unavailable Unavailable Re-disclosure Warning The records that you are about to access may contain information from federally-assisted alcohol or drug abuse programs. If such information is present, then the following federally mandated warning applies: This information has been disclosed to you from records protected by federal confidentiality rules (42 CFR part 2). The federal rules prohibit you from making any further disclosure of this information unless further disclosure is expressly permitted by the written consent of the person to whom it pertains or as otherwise permitted by 42 CFR part 2. A general authorization for the release of medical or other information is NOT sufficient for this purpose. The Federal rules restrict any use of the information to criminally investigate or prosecute any alcohol or drug abuse patient.The records that you are about to access may contain highly sensitive health information, the redisclosure of which is protected by Article 27-F of the [facility] Public Health law. If you continue you may have access to information: Regarding HIV / AIDS; Provided by facilities licensed or operated by the [facility] Office of Mental Health; or Provided by the [facility] Office for People With Developmental Disabilities. If such information is present, then the following [facility] mandated warning applies: This information has been disclosed to you from confidential records which are protected by state law. State law prohibits you from making any further disclosure of this information without the specific written consent of the person to whom it pertains, or as otherwise permitted by law. Any unauthorized further disclosure in violation of state law may result in a fine or shelter sentence or both. A general authorization for the release of medical or other information is NOT sufficient authorization for further disc losure. Family History Family Member Name Family Member Gender Family Member Status Date o f Status Description Data Source(s) Unknown Male Problem [facility] ([facility] Unknown Male Problem [facility] in 1984 Unknown Unknown Problem [facility] ([facility] Unknown Male Problem [facility] ([facility] Encounters Encounter Providers Location Date Indications Data Source(s ) Outpatient Attender: Criselda Herrera [facility] Main Office 01/31/2020 1 0:45:00 AM EST [facility] ([facility] Outpatient Attender: Criselda Herrera [facility] Main Office 01/19/2020 0 1:00:00 PM EST [facility] ([facility] Outpatient Attender: NAVEEN JACKSON MD [facility].[email or web address] 0 12:00:00 AM EST - 01/19/2020 04:09:59 PM EST [facility] Outpatient Attender: Criselda Herrera [facility] Main Office 01/11/2020 0 2:45:00 PM EST [facility] ([facility] Outpatient Attender: Criselda Herrera [facility] Main Office 12/16/2019 0 1:15:00 PM EDT [facility] ([facility] Outpatient Attender: Criselda Herrera [facility] Main Office 12/02/2019 0 4:00:00 PM EDT [facility] ([facility] Outpatient Attender: Criselda Herrera [facility] Main Office 11/24/2019 1 0:00:00 AM EDT [facility] ([facility] Outpatient Attender: Criselda AUGUSTIN Main Office 10/20/2019 0 1:45:00 PM EDT [facility] ([facility] Outpatient Attender: Criselda Sharon TERRITORY OUTSIDE SALES MANAGER Main Office 09/20/2019 0 1:00:00 PM EDT [facility] ([facility] Outpatient Attender: Criselda Sharon TERRITORY OUTSIDE SALES MANAGER Main Office 09/06/2019 1 1:30:00 AM EDT [facility] ([facility] Outpatient Referrer: NAVEEN JACKSON MD 08/03/2019 05:39:00 AM E DT [facility] Outpatient Attender: Edgar Hyman/Vipul/Alex/Pam sloanl 07/26/2019 10:30:00 AM EDT [facility] ([facility], ) Outpatient Attender: Nuzhat Langley MD Main Office 07/21/2019 10:40:0 0 AM EDT [facility] ([facility] Outpatient Referrer: NAVEEN JACKSON MD 07/20/2019 08:50:00 AM E DT [facility] Outpatient Referrer: PROVIDER SYSTEM IN 07/16/2019 0 2:14:00 PM EDT L leg cellulitis [facility] L leg cellulitis Outpatient Referrer: NAVEEN JACKSON MD 07/08/2019 04:52:00 AM E DT [facility] Outpatient Attender: Criselda MEADP Main Office 07/06/2019 0 1:00:00 PM EDT [facility] ([facility] Outpatient Referrer: NAVEEN FLANAGAN.[email or web address] 07/06/2019 08:57:33 AM EDT [facility] Outpatient Attender: NAVEEN JACKSON MDConsultant: NAVEEN JACKSON MD S SHERI.[email or web address] 06/25/2019 02:18:30 PM EDT - 06/25/2019 03:24:46 PM EDT [facility] Outpatient [email or web address] 06/18/2019 11:40:10 AM EDT [facility] Outpatient Referrer: NAVEEN JACKSON MD [email or web address] 0 10:40:26 AM EDT - 06/17/2019 12:12:23 PM EDT [facility] Outpatient Attender: NAVEEN JACKSON MDReferrer: NAVEEN FLANAGAN .[email or web address] 06/17/2019 10:39:30 AM EDT - 06/17/2019 01:42:16 PM EDT [facility] Outpatient Attender: NAVEEN MEDINASJP.GVR 0 12:00:00 AM EDT - 06/11/2019 08:59:39 AM EDT [facility] Outpatient Referrer: NAVEEN JACKSON MD 06/07/2019 06:37:00 AM E DT [facility] Outpatient Attender: Km Bolanos/Vipul/Alex/Chauncey ndamauri 06/02/2019 10:30:00 AM EDT [facility] ([facility] OFFICE OUTPATIENT NEW 30 MINUTES Attender: Jeffy DIANA Ph ysical Therapy 05/21/2019 02:00:00 PM EDT [facility] ([facility]) Outpatient Referrer: NAVEEN JACKSON MD 05/19/2019 10:16:00 AM E DT [facility] Outpatient Attender: Nuzhta Langley MD Main Office 01/26/2019 10:15:0 0 AM EST [facility] ([facility] Outpatient Attender: Nuzhat Langley MD Main Office 01/20/2019 10:15:0 0 AM EST [facility] ([facility] Outpatient Attender: NAVEEN JACKSON MD [email or web address] 01/13/2019 12:00:00 AM EST [facility] Medications Medication Brand Name Start Date Product Form Dose Route Admi nistrative Instructions Pharmacy Instructions Status Indications Reaction Description Data Source(s) First-Mouthwash BLM 01/31/2020 12:00:00 AM EST active [facility] ([facility] Levofloxacin 750 MG Oral Tablet Levofloxacin 01/19/2020 12:00:[address] ORAL completed [facility] ([facility] Acetaminophen 325 MG / Oxycodone Hydrochloride 5 MG Or al Tablet Oxycodone-Acetaminophen 01/12/2020 12:00:00 AM EST ORAL active [facility] ([facility] torsemide 20 MG Oral Tablet torsemide (DEMADEX) 20 MG tablet torsemide (DEMADEX) 20 MG tablet 01/12/2020 12:00:00 AM EST 20 mg Oral activ e Take 20 mg by mouth 2 (two) times a day [facility] Metformin hydrochloride 500 MG Oral Tablet metFORMIN ( GLUCOPHAGE) 500 MG tablet metFORMIN (GLUCOPHAGE) 500 MG tablet 01/11/2020 12:00:00 AM EST active [facility] Albuterol 0.833 MG/ML / Ipratropium Brom danial 0.167 MG/ML Inhalant Solution ipratropium-albuterol (DUO-NEB) 0.5-2.5 mg/mL nebulizer ipratropium-albuterol (DUO-NEB) 0.5-2.5 mg/mL nebulizer 12/27/2019 12:00:00 AM EST active [facility] Bacitracin 0.5 UNT/MG / Neomycin 0.0035 MG/MG / Polymyxin B 10 UNT/MG Topical Ointment Bafqothw-Vcuzefjapm-Xsmsdgwbz (FIRST AID ANTIBIOTIC) 3.5-400-5000 MG- UNIT OINT Ewfzmeac-Sosbpnznte-Juqswsjse (FIRST AID ANTIBIOTIC) 3.5-400-5000 MG- UNIT OINT 12/27/2019 12:00:00 AM EST active [facility] Fluconazole 100 MG Oral Tablet fluconazole (DIFLUCAN) 100 MG tablet fluconazole (DIFLUCAN) 100 MG tablet 12/08/2019 12:00:00 AM EDT aborted [facility] Metolazone 2.5 MG Oral Tablet Metolazone 12/08/2019 12:00:00 AM EDT ORAL active [facility] ([facility] torsemide 20 MG Oral Tablet Torsemide 12/08/2019 12:00:00 AM EDT active [facility] ([facility] 20 mg 11/27/2019 12:00:00 AM EDT tablet 6 TAKE ONE TABLET BY MOUTH TWICE A DAY TAKE ONE TABLET BY MOUTH TWICE A DAY SOLD: 11/27/2019 [facility] torsemide 10 MG Oral Tablet Torsemide 11/27/2019 12:00:00 AM EDT completed [facility] ([facility] Acetaminophen 500 MG / Diphenhydramine H ydrochloride 25 MG Oral Tablet [Tylenol PM] Tylenol PM Extra Strength 11/27/2019 12:00:00 AM EDT active [facility] ([facility] Medical Compression Socks/20-30MMHG/Extra Large/Long 10/20/2019 12:00:00 AM EDT active [facility] ([facility] Levofloxacin 750 MG Oral Tablet Levofloxacin 09/28/2019 12:00:00 AM E DT ORAL completed [facility] ([facility] bacitracin zinc 0.5 UNT/MG Topical Ointment Bacitracin (Exte rnal) 09/20/2019 12:00:00 AM EDT active [facility] ([facility] Metformin hydrochloride 500 MG Oral Tablet Metformin HCL 08/30/2019 12:00:00 AM EDT ORAL active [facility] ([facility] Furosemide 40 MG Oral Tablet [Lasix] Lasix 08/20/2019 12:00:00 AM EDT ORAL completed [facility] ([facility] 40 mg 08/20/2019 12:00:00 AM EDT tablet 90 TAKE TWO TABLETS BY MOUTH EVERY MORNING AND ONE TABLET EVERY EVENING TAKE TWO TABLETS BY MOUTH EVERY MORNING AND ONE TABLET EVERY EVENING SOLD: 08/20/2019 [facility] 25 mg 08/20/2019 12:00:00 AM EDT tablet 15 TAKE ONE-HALF TABLET BY MOUTH EVERY DAY TAKE ONE-HALF TABLET BY MOUTH EVERY DAY SOLD: 08/20/2019 [facility] 500-50 mcg/dose 08/12/2019 12:00:00 AM EDT blister with mario ce 60 INHALE 1 PUFF BY MOUTH TWO TIMES A DAY INHALE 1 PUFF BY MOUTH TWO TIMES A DAY SOLD: 08/12/2019 [facility] Acetaminophen 325 MG / Oxycodone Hydrochloride 5 MG Or al Tablet Oxycodone-Acetaminophen 08/12/2019 12:00:00 AM EDT ORAL completed [facility] O2 AT 2L/Min 08/09/2019 12:00:00 AM EDT activ e [facility] ([facility] 20 mg 08/08/2019 12:00:00 AM EDT tablet 5 TAKE ONE TABLET BY MOUTH EVERY DAY TAKE ONE TABLET BY MOUTH EVERY DAY SOLD: 08/08/2019 [facility] torsemide 20 MG Oral Tablet Torsemide 08/07/2019 12:00:00 AM EDT completed [facility] ([facility] Metolazone 2.5 MG Oral Tablet Metolazone 08/07/2019 12:00:00 AM EDT ORAL completed [facility] ([facility] Penicillin V Potassium 500 MG Oral Tablet Penicillin V Potas sium 08/07/2019 12:00:00 AM EDT ORAL completed [facility] ([facility] Potassium Chloride 20 MEQ Extended Release Oral Tablet Potassium Chloride Keren ER 08/07/2019 12:00:00 AM EDT ORAL active [facility] ([facility] Oxycodone Hydrochloride 5 MG Oral Tablet Oxycodone HCL 08/07/2019 12:00:00 AM EDT ORAL completed [facility] ([facility] Docusate Sodium 50 MG / sennosides, INTERMEDIATE 8.6 MG Oral Ta blet Senna-Docusate Sodium 08/07/2019 12:00:00 AM EDT completed [facility] ([facility] Acetaminophen 325 MG Oral Tablet Acetaminophen 08/07/2019 12:00:00 AM EDT ORAL active [facility] ([facility] Levaquin 08/07/2019 12:00:00 AM EDT completed [facility] ([facility] 750 mg 08/06/2019 12:00:00 AM EDT tablet 14 TAKE ONE TABLET BY MOUTH EVERY DAY TAKE ONE TABLET BY MOUTH EVERY DAY SOLD: 08/06/2019 [facility] 500 mg 08/06/2019 12:00:00 AM EDT tablet 28 TAKE ONE TABLET BY MOUTH TWICE A DAY TAKE ONE TABLET BY MOUTH TWICE A DAY SOLD: 08/06/2019 [facility] tizanidine 4 MG Oral Capsule Tizanidine HCL 07/19/2019 12:00:00 AM EDT ORAL completed [facility] ([facility] Furosemide 20 MG Oral Tablet Furosemide 07/19/2019 12:00:00 AM EDT ORAL completed [facility] ([facility] Acetaminophen 325 MG Oral Tablet Acetaminophen 07/19/2019 12:00:00 AM EDT ORAL completed [facility] ([facility] Acetaminophen 500 MG / Diphenhydramine H ydrochloride 25 MG Oral Tablet [Tylenol PM] Tylenol PM Extra Strength 07/19/2019 12:00:00 AM EDT completed [facility] ([facility] Diphenhydramine Hydrochloride 25 MG Oral Capsule [Benadryl] Benadryl Allergy 07/19/2019 12:00:00 AM EDT ORAL completed [facility] ([facility] 24 HR Bupropion Hydrochloride 150 MG Extended Release Oral Tablet Bupropion Hydrochloride ER (XL) 07/06/2019 12:00:00 AM EDT ORAL a ctive [facility] ([facility] Cephalexin 500 MG Oral Capsule CEPHALEXIN 07/04/2019 12:00:00 AM EDT capsule 28 TAKE ONE CAPSULE BY MOUTH FOUR TIMES A DAY TAKE ONE CA PSULE BY MOUTH FOUR TIMES A DAY SOLD: 07/04/2019 [facility] Lidocaine Pain Relief Lidocaine Pain Relief 06/30/2019 12:00:00 AM EDT completed [facility] ([facility] Brimatoprost Eye Drops 06/29/2019 12:00:00 AM EDT completed [facility] ([facility] Lidocaine 40 MG/ML Topical Cream Lidocaine 06/29/2019 12:00:00 AM EDT completed [facility] ([facility] Potassium Chloride 20 MEQ Extended Release Oral Tablet [K-Ta b] K-Tab 06/29/2019 12:00:00 AM EDT completed [facility] ([facility] tramadol hydrochloride 50 MG Oral Tablet Tramadol HCL 06/29/2019 12:00:00 AM EDT ORAL completed [facility] ([facility] Furosemide 40 MG Oral Tablet Furosemide 06/29/2019 12:00:00 AM EDT ORAL completed [facility] Prednisone 5 MG Oral Tablet Prednisone 06/29/2019 12:00:00 AM EDT ORAL active [facility] ([facility] Metolazone 2.5 MG Oral Tablet Metolazone 06/29/2019 12:00:00 AM EDT ORAL completed [facility] ([facility] Metolazone 2.5 MG Oral Tablet metolazone (ZAROXOLYN) 2 .5 MG tablet metolazone (ZAROXOLYN) 2.5 MG tablet 06/25/2019 12:00:00 AM EDT 2.5 mg Oral active Take 1 tablet (2.5 mg total) by mouth ev lashay other day To be taken 30-60 minutes prior to the Furosemide once a day. [facility] potassium chloride SA (K-DUR,KLOR-CON) 20 MEQ tablet 39711-2 99-01 06/25/2019 12:00:00 AM EDT aborted [facility] Prednisone 5 MG Oral Tablet predniSONE (DELTASONE) 5 M G tablet predniSONE (DELTASONE) 5 MG tablet 06/25/2019 12:00:00 AM EDT 5 mg Oral active Chronic bronchitis, unspecified chronic bronchitis type Take 1 tablet (5 mg total) by mouth daily [facility] Chronic bronchitis, unspecified chronic bronchitis type Potassium Chloride 20 MEQ Extended Relea se Oral Tablet Potassium Chloride ER 20 MEQ TBCR Potassium Chloride ER 20 MEQ TBCR 06/25/2019 12:00:00 AM EDT 20 meq Oral active Take 1 tablet (20 mE q total) by mouth daily [facility] rivaroxaban 20 MG Oral Tablet rivaroxaban (XARELTO) 20 MG TABS rivaroxaban (XARELTO) 20 MG TABS 06/25/2019 12:00:00 AM EDT 20 mg Oral active Atrial fibrillation, unspecified type Take 1 tablet (20 mg total) b y mouth daily [facility] Atrial fibrillation, unspecified type Furosemide 40 MG Oral Tablet furosemide (LASIX) 40 MG tablet furosemide (LASIX) 40 MG tablet 06/11/2019 12:00:00 AM EDT 40 mg Oral abort ed Take 1 tablet (40 mg total) by mouth 2 (two) times a day [facility] Prednisone 10 MG Oral Tablet Prednisone 06/02/2019 12:00:00 AM EDT completed [facility] Prednisone 10 MG Oral Tablet Prednisone 06/02/2019 12:00:00 AM EDT completed [facility] ([facility] tizanidine 4 MG Oral Tablet [Zanaflex] Zanaflex 05/21/2019 12:00:00 AM EDT ORAL active [facility] ([facility]) Acetaminophen 500 MG Oral Tablet Acetaminophen 03/17/2019 12:00:00 AM EST completed [facility] ([facility] Furosemide 20 MG Oral Tablet Furosemide 01/13/2019 12:00:00 AM EST ORAL completed [facility] ([facility] Levofloxacin 500 MG Oral Tablet [Levaquin] Levaquin 12/15 12:00:00 AM EDT ORAL completed [facility] Prednisone 10 MG Oral Tablet Prednisone 12/11/2018 12:00:00 AM EDT ORAL completed [facility] ([facility] carbamide peroxide 65 MG/ML Otic Solution [Debrox] Debrox 10/14/2018 12:00:00 AM EDT completed [facility] ([facility] 12 HR Guaifenesin 600 MG Extended Release Oral Tablet [Mucin ex] Mucinex 10/14/2018 12:00:00 AM EDT ORAL completed [facility] ([facility] tizanidine 4 MG Oral Tablet tiZANidine (ZANAFLEX) 4 MG tablet tiZANidine (ZANAFLEX) 4 MG tablet 4 mg Oral aborted Take 4 mg by mouth every 6 (six) hours as needed [facility] 60 ACTUAT Fluticasone propionate 0.5 MG/ ACTUAT / salmeterol 0.05 MG/ACTUAT Dry Powder Inhaler fluticasone-salmeterol (ADVAIR) 500-50 MCG/DOSE DISKUS fluticasone-salmeterol (ADVAIR) 500-50 MCG/DOSE DISKUS 1 {puff} Inhalation aborted Inhale 1 puff 2 (two) amy es a day [facility] Insurance Providers Payer name Policy type / Coverage type Policy ID Covered constitution party ID Covered constitution party's relationship to sellers Policy Sellers Plan Information FOR LIFE [id number] MEDICARE [id number] SP [id number] MEDICARE [id number] MEDICARE [id number] Susanna [id number] Spo [id number] MEDICARE C [id number] S [id number] FOR LIFE O [id number] S [id number] [id number] HU2 [id number] [facility] O [id number] S [id number] FOR LIFE [id number] FOR LIFE U [id number] Self [id number] MEDICARE A [id number] Self [id number] FOR LIFE U [id number] Self [id number] MEDICARE A [id number] Self [id number] A MEDICARE [id number] Susanna [id number] A For Life Medigap Part B [id number] Family Dependent [id number] [place] Primary [id number] Self [id number] For Life Medigap Part B [id number] Family Dependent [id number] [place] Primary [id number] Self [id number] For Life Reg 1 Medigap Part B [id number] Family Depen dent [id number] Medicare - NGS Medicare Primary [id number] Self [id number] For Life Medigap Part B [id number] Family Dependent [id number] [place] Primary [id number] Self [id number] For Life Medigap Part B [id number] Family Dependent [id number] [place] Primary [id number] Self [id number] For Life Reg 1 Medigap Part B [id number] Family Depen dent [id number] Medicare - NGS Medicare Primary [id number] Self [id number] For Life Medigap Part B [id number] Family Dependent [id number] [place] Primary [id number] Self [id number] MEDICARE [id number] SP [id number] A For Life Reg 1 Medigap Part B [id number] Family Depen dent [id number] Medicare - NGS Medicare Primary [id number] Self [id number] MEDICARE C UNAVAILABLE S UNAVAILA BLE MEDICARE C [id number] S [id number] A FOR LIFE [id number] [id number] For Life Reg 1 Medigap Part B [id number] Family Depen dent [id number] Medicare - NGS Medicare Primary [id number] Self [id number] [place] MEDICARE PART B C [id number] S [id number] For Life Medigap Part B [id number] Family Dependent [id number] [place] Primary [id number] Self [id number] For Life Medigap Part B [id number] Family Dependent [id number] [place] Primary [id number] Self [id number] For Life Medigap Part B [id number] Family Dependent [id number] [place] Primary [id number] Self [id number] PI PI MEDICARE PI PI [id number] Spo [id number] For Life Medigap Part B [id number] Family Dependent [id number] [place] Primary [id number] Self [id number] For Life Reg 1 Medigap Part B [id number] Family Depen dent [id number] Medicare - NGS Medicare Primary [id number] Self [id number] For Life - WPS Medigap Part B [id number] Self [id number] Medicare (Part A) Medicare Primary [id number] Self [id number] Medicare (Part B) Medicare Primary [id number] Self [id number] For Life Medigap Part B [id number] Family Dependent [id number] [place] Primary [id number] Self [id number] For Life - WPS Medigap Part B [id number] Self [id number] Medicare (Part A) Medicare Primary [id number] Self [id number] Medicare (Part B) Medicare Primary [id number] Self [id number] For Life Medigap Part B [id number] Family Dependent [id number] [place] Primary [id number] Self [id number] S [facility] C [id number] S [id number] For Life Medigap Part B [id number] Family Dependent [id number] [place] Primary [id number] Self [id number] For Life Medigap Part B [id number] Family Dependent [id number] [place] Primary [id number] Self [id number] For Life Medigap Part B [id number] Family Dependent [id number] [place] Primary [id number] Self [id number] For Life WPS Medigap Part B [id number] Self [id number] Medicare [place] Gov't Servi Medicare Primary [id number] Self [id number] For Life Medigap Part B [id number] Family Dependent [id number] [place] Primary [id number] Self [id number] FOR LIFE [id number] SP [id number] For Life Medigap Part B Family Dependent Medicare [facility] Medicare Primary Self FOR LIFE [id number] SP [id number] FOR LIFE [id number] SP [id number] MEDICARE [id number] SP [id number] A RETIREE MEDICAL INSURANCE PLAN [id number] SP [id number] PMA MANAGEMENT [facility] [id number] SP [id number] [facility] [id number] A [id number] Problems, Conditions, and Diagnoses Code Display Name Description Problem Type Effective Dates Data Source(s) M79.604 Pain in both lower extremities Pain in both lower extr emities [id number] 01/19/2020 12:00:[address] 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 Problem 10/20/2019 12:00:00 AM EDT [facility] ([facility] [id number] 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 Problem 10/20/19 12:00:00 AM EDT [facility] ([facility] I87.2 Venous stasis dermatitis of both lower e xtremities Venous stasis dermatitis of both lower extremities [id number] 07/31/2019 12:00:00 AM EDT [facility] R26.81 Unsteady gait Unsteady gait [id number] 07/31/2019 12:00:00 AM EDT [facility] R54 Frailty Frailty [id number] 07/31/2019 12:00:00 AM ED T [facility] L03.116 Cellulitis of left lower extremity Cellulitis of left lower extremity [id number] 07/31/2019 12:00:00 AM EDT [facility] [id number] Acute on chronic systolic heart failure Acute on chronic systolic heart failure Problem 06/02/2019 12:00:00 AM EDT [facility] ([facility] ) L leg cellulitis L leg cellulitis Diagnosis 07/16/2019 02 :14:00 PM EDT [facility] D69.6 Thrombocytopenia, unspecified Thrombocytopenia, unspec ified Diagnosis 06/25/2019 02:18:30 PM EDT [facility] E66.9 Obesity, unspecified Obesity, unspecified Diagnosis 06/25/2019 02:18:30 PM EDT [facility] E11.9 Type 2 diabetes mellitus without complic ations Type 2 diabetes mellitus without complic Diagnosis 06/25/2019 02:18:30 PM EDT [facility] Z95.0 Presence of cardiac pacemaker Presence of cardiac pace maker Diagnosis 06/25/2019 02:18:30 PM EDT [facility] J42 Unspecified chronic bronchitis Unspecified chronic bro nchitis Diagnosis 06/25/2019 02:18:30 PM EDT [facility] F41.8 Other specified anxiety disorders Other specifie d anxiety disorders Diagnosis 06/25/2019 02:18:30 PM EDT [facility] 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 coronary artery without angina pectoris Atherosclerotic heart disease of [place] Diagnosis 06/25/2019 02:18:30 PM EDT [facility] I49.5 Sick sinus syndrome Sick sinus syndrome Diagnosis 0 06/25/2019 02:18:30 PM EDT [facility] I48.92 Unspecified atrial flutter Unspecified atrial flutter Diagnosis 06/25/2019 02:18:30 PM EDT [facility] I10 Essential (primary) hypertension Essential (primary) h ypertension Diagnosis 06/25/2019 02:18:30 PM EDT [facility] R06.02 Shortness of breath Shortness of breath Diagnosis 0 06/25/2019 02:18:30 PM EDT [facility] I50.30 Unspecified diastolic (congestive) heart failure Unspecified diastolic (congestive) heart Diagnosis 06/25/2019 02:18:30 PM EDT [facility] R91.8 Other nonspecific abnormal finding of larry ng field Other nonspecific abnormal finding of larry Diagnosis 06/10/2019 02:21:51 PM EDT [facility] K21.9 Gastro-esophageal reflux disease without esophagitis Gastro-esophageal reflux disease without Diagnosis 01/13/2019 11:43:49 AM EST [facility] H40.9 Unspecified glaucoma Unspecified glaucoma Diagnosis 01/13/2019 11:43:[address] [facility] Surgeries/Procedures Procedure Description Date Indications Data Source(s) Mammogram 01/26/2020 12:00:00 AM EST [facility] ([facility] ECG ROUTINE ECG W/LEAST 12 LDS W/I&R POCT AMB EKG Routine 01/19/2020 5:19 PM EST Atrial flutter, unspecified type 01/19/2020 10:19:00 PM EST Atrial flutter, unspecified type [facility] Atrial flutter, unspecified type BLOOD COUNT COMPLETE AUTO&AUTO DIFRNTL WBC COUNT CBC AND DIFFER ENTIAL Routine 12/08/2019 12/08/2019 12:00:00 AM EDT [facility] BASIC METABOLIC PANEL CALCIUM TOTAL BASIC METABOLIC PANEL Routine 12/08/2019 12/08/2019 12:00:00 AM EDT [facility] ARTHROCENTESIS ASPIR&/INJECTION MAJOR JT/BURSA 020 12:00:00 AM EDT [facility] ([facility] ) X-Ray Hip Unilateral With Pelvis 2-3 Views 05/21/2019 12:00:00 AM EDT [facility] ([facility] ) RADIOLOGIC EXAM KNEE COMPLETE 4/MORE VIEWS 05/21/2019 12:00:00 AM EDT [facility] ([facility] ) Results ID Date Data Source [id number] 01/31/2020 01:53:00 PM EST [facility] ([facility] Name Value Range Interpretation Code Description Data Luz rce(s) Supporting Document(s) Prothrombin Time 23.1 s 12.5-14.3 [facility] ([facility] Inr 2.00 [facility] ([facility] THERAPUTIC HUMAN INR VALUES INDICATIONS NORMAL RANGES PROPHYLAXIS/TREATMENT OF: VENOUS THROMBOSIS 2.0-3.0 PULMONARY EMBOLISM 2.0-3.0 PREVENTION OF SYSTEMIC EMBOLISM FROM: TISSUE HEART VALVES 2.0-3.0 ACUTE MYOCARDIAL INFARCTION 2.0-3.0 VALVULAR HEART DISEASE 2.0-3.0 ATRIAL FIBRILLATION 2.0-3.0 MECHANICAL VALVES(HIGH RISK) 2.5-3.5 RECURRENT MYOCARDIAL INFARCTION 2.5-3.5 Partial Thromboplastin Time 33.4 s 24.2-38.5 [facility] ([facility] ID Date Data Source [id number] 01/31/2020 01:53:00 PM EST [facility] ([facility] Name Value Range Interpretation Code Description Data Luz rce(s) Supporting Document(s) Natriuretic peptide.B prohormone N-Terminal [Mass/volu me] in Serum or Plasma 226 pg/mL [facility] ([facility] ID Date Data Source [id number] 01/31/2020 01:53:00 PM EST [facility] ([facility] Name Value Range Interpretation Code Description Data Luz rce(s) Supporting Document(s) Glucose, Fasting 125 mg/dL 70-100 [facility] ([facility] Blood Urea Nitrogen 30 mg/dL 7-18 [facility] ([facility] Creatinine For GFR 1.48 mg/dL 0.55-1.30 [facility] ([facility] Glomerular Filtration Rate 36.3 [facility] ([facility] <content>Units are mL/min/1.73 m2</content>
<content></content>
<content>Chronic Kidney Disease Staging per NKF:</content>
<content></content>
<content>Stage I & II GFR >=60 Normal to Mildly Decreased</content>
<content>Stage III GFR 30- 59 Moderately Decreased</content>
<content>Stage IV GFR 15-29 Severely Decreased</content>
<content>Stage V GFR <15 Very Little GFR Left</content>
<content>ESRD GFR <15 on [employer]</content>
<content></content> Sodium Level 141 meq/L 136-145 [facility] ([facility] Potassium Serum 3.4 meq/L 3.5-5.1 [facility] ([facility] Chloride Level 99 meq/L 98-107 [facility] ([facility] Carbon Dioxide Level 38 meq/L 21-32 [facility] ([facility] Anion Gap 4 meq/L 8-16 [facility] Calcium Level 9.5 mg/dL 8.8-10.2 [facility] ([facility] ID Date Data Source [id number] 01/31/2020 01:53:00 PM EST [facility] ([facility] Name Value Range Interpretation Code Description Data [facility](s) Supporting Document(s) Ast/Sgot 4 U/L 7-37 [facility] Alt/SGPT 10 U/L 12-78 [facility] Alkaline Phosphatase 53 U/L 45-117 [facility] ([facility] Bilirubin,Total 1.1 mg/dL 0.2-1.0 [facility] ([facility] Total Protein 5.7 GM/DL 6.4-8.2 [facility] ([facility] Bilirubin,Direct 0.4 mg/dL 0.0-0.2 [facility] ([facility] Albumin 3.4 GM/DL 3.2-5.2 [facility] ([facility] Albumin/Globulin Ratio 1.5 1.2-2.2 [facility] ([facility] ID Date Data Source [id number] 01/31/2020 01:53:00 PM EST [facility] ([facility] Name Value Range Interpretation Code Description Data [facility](s) Supporting Document(s) CPK Creatine Phosphokinase 25 U/L 26-192 [facility] ([facility] CK-MB Value Mass 1.1 ng/mL [facility] ([facility] MB/CK Relative Index 4.40 [facility] ([facility] <content>DIAGNOSIS CRITERIA</content>
<content>MMB ng/ml Relative Index (RI)</content>
<content>NON-AMI < or = 5 N/A</content>
<content>GOYAL ZONE > 5 < or = 4</content>
<content>AMI > 5 > 4</content>
<content></content> Troponin I Laboratory test result [facility] ([facility] <content>Troponin I Reference Interval f or Siemens [place] LOCI:</content>
<content></content>
<content>99th Percentile= 0.00-0.045 ng/ml</content>
<content></content>
<content>Risk Stratification:</content>
<content><= 0.10 ng/ml Decreased Risk for Adverse Clinical</content>
<content>Events.</content>
<content>0.10-1.50 ng/ml Increased Risk for Adverse Clinical</content>
<content>Events. Evaluation of additional</content>
<content>criterion and/or repeat testing in 2-6</content>
<content>hours is suggested to rule out myocardial</content>
<content>damage.</content>
<content>>= 1.50 ng/ml Indicative of Myocardial Injury.</content>
<content></content> ID Date Data Source [id number] 01/31/2020 01:53:00 PM EST [facility] ([facility] Name Value Range Interpretation Code Description Data Luz rce(s) Supporting Document(s) White Blood Count 9.7 10 4.0-10.0 [facility] ([facility] Red Blood Count 3.88 10 4.00-5.40 [facility] ([facility] Hematocrit 35.2 % 36.0-47.0 [facility] ([facility] Hemoglobin 10.8 g/dL 12.0-15.5 [facility] Mean Corpuscular Hemoglobin 27.8 pg 27.0-33.0 [facility] ([facility] Mean Corpuscular Volume 90.7 fl 80.0-96.0 M [facility] ([facility] Mean Corpuscular HGB Conc 30.7 g/dL 32.0-36.5 [facility] ([facility] Red Cell Distribution Width 16.8 % 11.5-14.5 [facility] Platelet Count, Automated 144 10 150-450 [facility] Lymph % 11.0 % 24.0-44.0 [facility] Neutrophils % 80.7 % 36.0-66.0 [facility] Eos % 0.9 % 0.0-3.0 [facility] [place] % 6.1 % 0.0-5.0 [facility] Baso % 0.4 % 0.0-1.0 [facility] Nucleated Red Blood Cell % 0.0 % 0-0 [facility] Immature Granulocyte % 0.9 % 0-3.0 [facility] ([facility] Lymph # 1.1 10 1.5-5.0 [facility] Neutrophils # 7.8 10 1.5-8.5 [facility] [place] # 0.6 10 0.0-0.8 [facility] Eos # 0.1 10 0.0-0.5 [facility] Baso # 0.0 10 0.0-0.2 [facility] ID Date Data Source [id number] 01/24/2020 12:25:00 AM EST [facility] ([facility] Name Value Range Interpretation Code Description Data Luz rce(s) Supporting Document(s) CPK Creatine Phosphokinase 27 U/L 26-192 [facility] ([facility] CK-MB Value Mass 1.2 ng/mL [facility] ([facility] MB/CK Relative Index 4.44 [facility] ([facility] <content>DIAGNOSIS CRITERIA</content>
<content>MMB ng/ml Relative Index (RI)</content>
<content>NON-AMI < or = 5 N/A</content>
<content>GOYAL ZONE > 5 < or = 4</content>
<content>AMI > 5 > 4</content>
<content></content> Troponin I Laboratory test result [facility] ([facility] <content>Troponin I Reference Interval f or Siemens [place] LOCI:</content>
<content></content>
<content>99th Percentile= 0.00-0.045 ng/ml</content>
<content></content>
<content>Risk Stratification:</content>
<content><= 0.10 ng/ml Decreased Risk for Adverse Clinical</content>
<content>Events.</content>
<content>0.10-1.50 ng/ml Increased Risk for Adverse Clinical</content>
<content>Events. Evaluation of additional</content>
<content>criterion and/or repeat testing in 2-6</content>
<content>hours is suggested to rule out myocardial</content>
<content>damage.</content>
<content>>= 1.50 ng/ml Indicative of Myocardial Injury.</content>
<content></content> ID Date Data Source [id number] 01/23/2020 09:51:00 PM EST [facility] ([facility] Name Value Range Interpretation Code Description Data Luz rce(s) Supporting Document(s) CPK Creatine Phosphokinase 43 U/L 26-192 [facility] CK-MB Value Mass Laboratory test result [facility] MB/CK Relative Index 2.33 [facility] ([facility] <content>DIAGNOSIS CRITERIA</content>
<content>MMB ng/ml Relative Index (RI)</content>
<content>NON-AMI < or = 5 N/A</content>
<content>GOYAL ZONE > 5 < or = 4</content>
<content>AMI > 5 > 4</content>
<content></content> Troponin I Laboratory test result [facility] ([facility] <content>Troponin I Reference Interval f or Siemens [place] LOCI:</content>
<content></content>
<content>99th Percentile= 0.00-0.045 ng/ml</content>
<content></content>
<content>Risk Stratification:</content>
<content><= 0.10 ng/ml Decreased Risk for Adverse Clinical</content>
<content>Events.</content>
<content>0.10-1.50 ng/ml Increased Risk for Adverse Clinical</content>
<content>Events. Evaluation of additional</content>
<content>criterion and/or repeat testing in 2-6</content>
<content>hours is suggested to rule out myocardial</content>
<content>damage.</content>
<content>>= 1.50 ng/ml Indicative of Myocardial Injury.</content>
<content></content> ID Date Data Source [id number] 01/23/2020 09:51:00 PM EST [facility] ([facility] Name Value Range Interpretation Code Description Data Luz rce(s) Supporting Document(s) Ast/Sgot 7 U/L 7-37 [facility] Alt/SGPT 9 U/L 12-78 [facility] Alkaline Phosphatase 54 U/L 45-117 [facility] Bilirubin,Total 0.6 mg/dL 0.2-1.0 [facility] Bilirubin,Direct 0.3 mg/dL 0.0-0.2 [facility] Total Protein 5.6 GM/DL 6.4-8.2 [facility] Albumin 3.1 GM/DL 3.2-5.2 [facility] Albumin/Globulin Ratio 1.2 1.2-2.2 [facility] ID Date Data Source [id number] 01/23/2020 09:51:00 PM EST [facility] ([facility] Name Value Range Interpretation Code Description Data Luz rce(s) Supporting Document(s) Prothrombin Time 26.3 s 12.5-14.3 [facility] Inr 2.35 [facility] THERAPUTIC HUMAN INR VALUES INDICATIONS NORMAL RANGES PROPHYLAXIS/TREATMENT OF: VENOUS THROMBOSIS 2.0-3.0 PULMONARY EMBOLISM 2.0-3.0 PREVENTION OF SYSTEMIC EMBOLISM FROM: TISSUE HEART VALVES 2.0-3.0 ACUTE MYOCARDIAL INFARCTION 2.0-3.0 VALVULAR HEART DISEASE 2.0-3.0 ATRIAL FIBRILLATION 2.0-3.0 MECHANICAL VALVES(HIGH RISK) 2.5-3.5 RECURRENT MYOCARDIAL INFARCTION 2.5-3.5 ID Date Data Source [id number] 01/23/2020 09:51:00 PM EST [facility] Name Value Range Interpretation Code Description Data Luz rce(s) Supporting Document(s) Red Blood Count 3.74 10 4.00-5.40 [facility] White Blood Count 10.4 10 4.0-10.0 [facility] ([facility] Hemoglobin 10.5 g/dL 12.0-15.5 [facility] Hematocrit 34.0 % 36.0-47.0 [facility] Mean Corpuscular Volume 90.9 fl 80.0-96.0 M [facility] Mean Corpuscular Hemoglobin 28.1 pg 27.0-33.0 [facility] Mean Corpuscular HGB Conc 30.9 g/dL 32.0-36.5 [facility] Platelet Count, Automated 162 10 150-450 [facility] Red Cell Distribution Width 16.8 % 11.5-14.5 [facility] Neutrophils % 85.6 % 36.0-66.0 [facility] [place] % 5.0 % 0.0-5.0 [facility] Lymph % 8.0 % 24.0-44.0 [facility] Eos % 0.4 % 0.0-3.0 [facility] Baso % 0.2 % 0.0-1.0 [facility] Immature Granulocyte % 0.8 % 0-3.0 [facility] Nucleated Red Blood Cell % 0.0 % 0-0 [facility] Neutrophils # 8.9 10 1.5-8.5 [facility] Lymph # 0.8 10 1.5-5.0 [facility] [place] # 0.5 10 0.0-0.8 [facility] Eos # 0.0 10 0.0-0.5 [facility] Baso # 0.0 10 0.0-0.2 [facility] ID Date Data Source [id number] 01/23/2020 09:51:00 PM EST [facility] ([facility] Name Value Range Interpretation Code Description Data Luz rce(s) Supporting Document(s) Glucose, Fasting 149 mg/dL 70-100 [facility] Creatinine For GFR 1.61 mg/dL 0.55-1.30 [facility] Blood Urea Nitrogen 24 mg/dL 7-18 [facility] ([facility] Glomerular Filtration Rate 32.9 [facility] <content>Units are mL/min/1.73 m2</content>
<content></content>
<content>Chronic Kidney Disease Staging per [facility]:</content>
<content></content>
<content>Stage I & II GFR >=60 Normal to Mildly Decreased</content>
<content>Stage III GFR 30- 59 Moderately Decreased</content>
<content>Stage IV GFR 15-29 Severely Decreased</content>
<content>Stage V GFR <15 Very Little GFR Left</content>
<content>ESRD GFR <15 on [employer]</content>
<content></content> Sodium Level 139 meq/L 136-145 [facility] Chloride Level 97 meq/L 98-107 [facility] Potassium Serum 3.5 meq/L 3.5-5.1 [facility] Testing was performed on an icteric spec imen. This specimen has an elevated potassium level but there is NO visible hemolysis noted. Carbon Dioxide Level 35 meq/L 21-32 [facility] Anion Gap 7 meq/L 8-16 [facility] Calcium Level 9.2 mg/dL 8.8-10.2 [facility] ID Date Data Source [id number] 01/23/2020 09:51:00 PM EST [facility] ([facility] Name Value Range Interpretation Code Description Data Luz rce(s) Supporting Document(s) Natriuretic peptide.B prohormone N-Terminal [Mass/volu me] in Serum or Plasma 519 pg/mL [facility] ID Date Data Source [id number] 01/19/2020 02:58:00 PM EST [facility] ([facility] Name Value Range Interpretation Code Description Data Luz rce(s) Supporting Document(s) Hemoglobin A1c 6.5 % [facility] <content>REFERENCE RANGES:</content><br/ ><content></content>
<content><=5.6% NORMAL</content>
<content>5.7-6.4% SUGGESTS IMPAIRED GLUCOSE METABOLISM/PREDIABETIC</content>
<content>>= 6.5% ABNORMAL</content>
<content></content> Estimated Average Glucose 140 mg/dL 60-110 [facility] ID Date Data Source [id number] 01/19/2020 02:58:00 PM EST [facility] ([facility] Name Value Range Interpretation Code Description Data Luz e(s) Supporting Document(s) Glucose, Fasting 139 mg/dL 70-100 [facility] Blood Urea Nitrogen 21 mg/dL 7-18 [facility] Creatinine For GFR 1.54 mg/dL 0.55-1.30 [facility] Glomerular Filtration Rate 34.7 [facility] <content>Units are mL/min/1.73 m2</content>
<content></content>
<content>Chronic Kidney Disease Staging per [facility]:</content>
<content></content>
<content>Stage I & II GFR >=60 Normal to Mildly Decreased</content>
<content>Stage III GFR 30- 59 Moderately Decreased</content>
<content>Stage IV GFR 15-29 Severely Decreased</content>
<content>Stage V GFR <15 Very Little GFR Left</content>
<content>ESRD GFR <15 on [employer]</content>
<content></content> Sodium Level 138 meq/L 136-145 [facility] Potassium Serum 3.2 meq/L 3.5-5.1 [facility] Chloride Level 95 meq/L 98-107 [facility] Carbon Dioxide Level 37 meq/L 21-32 [facility] Anion Gap 6 meq/L 8-16 [facility] Calcium Level 8.9 mg/dL 8.8-10.2 [facility] Ast/Sgot Laboratory test result 7-37 [facility] Alt/SGPT 9 U/L 12-78 [facility] Alkaline Phosphatase 59 U/L 45-117 [facility] Bilirubin,Total 1.0 mg/dL 0.2-1.0 [facility] Total Protein 5.7 GM/DL 6.4-8.2 [facility] Albumin/Globulin Ratio 1.4 1.2-2.2 [facility] Albumin 3.3 GM/DL 3.2-5.2 [facility] ID Date Data Source [id number] 12/02/2019 07:46:00 PM EDT [facility] ([facility] Name Value Range Interpretation Code Description Data Luz rce(s) Supporting Document(s) Laboratory test finding (navigational concept) Laboratory test result [facility] ([facility] A false negative result may occur if a s pecimen is improperly collected, transported or handled. False [...] pathogens. DISCLAIMER: Testing was performed using the [facility] SARS-CoV-2 test. This test was developed and its performance characteristics determined by [facility]. This test has not been FDA cleared [...] the authorization is terminated or revoked sooner. ID Date Data Source [id number] 12/02/2019 07:06:00 PM EDT [facility] ([facility] Name Value Range Interpretation Code Description Data Luz rce(s) Supporting Document(s) Prothrombin Time 19.4 s 12.5-14.3 [facility] Inr 1.60 [facility] THERAPUTIC HUMAN INR VALUES INDICATIONS NORMAL RANGES PROPHYLAXIS/TREATMENT OF: VENOUS THROMBOSIS 2.0-3.0 PULMONARY EMBOLISM 2.0-3.0 PREVENTION OF SYSTEMIC EMBOLISM FROM: TISSUE HEART VALVES 2.0-3.0 ACUTE MYOCARDIAL INFARCTION 2.0-3.0 VALVULAR HEART DISEASE 2.0-3.0 ATRIAL FIBRILLATION 2.0-3.0 MECHANICAL VALVES(HIGH RISK) 2.5-3.5 RECURRENT MYOCARDIAL INFARCTION 2.5-3.5 ID Date Data Source [id number] 12/02/2019 07:06:00 PM EDT [facility] ([facility] Name Value Range Interpretation Code Description Data Luz rce(s) Supporting Document(s) White Blood Count 8.8 10 4.0-10.0 [facility] ([facility] Red Blood Count 3.67 10 4.00-5.40 [facility] Hemoglobin 10.0 g/dL 12.0-15.5 [facility] Hematocrit 32.9 % 36.0-47.0 [facility] Mean Corpuscular Volume 89.6 fl 80.0-96.0 M [facility] Red Cell Distribution Width 17.1 % 11.5-14.5 [facility] Mean Corpuscular HGB Conc 30.4 g/dL 32.0-36.5 [facility] Mean Corpuscular Hemoglobin 27.2 pg 27.0-33.0 [facility] Platelet Count, Automated 169 10 150-450 [facility] Neutrophils % 79.0 % 36.0-66.0 [facility] Lymph % 10.9 % 24.0-44.0 [facility] Eos % 1.9 % 0.0-3.0 [facility] [place] % 7.1 % 0.0-5.0 [facility] Nucleated Red Blood Cell % 0.0 % 0-0 [facility] Baso % 0.5 % 0.0-1.0 [facility] Immature Granulocyte % 0.6 % 0-3.0 [facility] Eos # 0.2 10 0.0-0.5 [facility] [place] # 0.6 10 0.0-0.8 [facility] Lymph # 1.0 10 1.5-5.0 [facility] Neutrophils # 6.9 10 1.5-8.5 [facility] Baso # 0.0 10 0.0-0.2 [facility] ID Date Data Source [id number] 12/02/2019 07:06:00 PM EDT [facility] ([facility] Name Value Range Interpretation Code Description Data Luz rce(s) Supporting Document(s) Ast/Sgot 7 U/L 7-37 [facility] Alt/SGPT 11 U/L 12-78 [facility] Alkaline Phosphatase 59 U/L 45-117 [facility] Bilirubin,Total 0.7 mg/dL 0.2-1.0 [facility] Bilirubin,Direct 0.3 mg/dL 0.0-0.2 [facility] Total Protein 5.6 GM/DL 6.4-8.2 [facility] Albumin 3.2 GM/DL 3.2-5.2 [facility] Albumin/Globulin Ratio 1.3 1.2-2.2 [facility] ID Date Data Source [id number] 12/02/2019 07:06:00 PM EDT [facility] ([facility] Name Value Range Interpretation Code Description Data Luz rce(s) Supporting Document(s) Venous PH 7.482 units 7.330-7.430 [facility] Venous Total Co2 28.6 meq/L 24.0-28.0 [facility] ( [facility] Venous Partial Pressure O2 135.7 mmHg 30.0-50.0 [facility] Venous Partial Pressure Co2 37.5 mmHg 38.0-50.0 [facility] Venous Base Excess 3.9 [facility] ([facility] Venous Hco3 27.4 meq/L 23.0-27.0 [facility] Venous O2 Saturation 98.9 % 60.0-80.0 [facility] ([facility] Venous Standard Hco3 28.0 meq/L [facility] ID Date Data Source [id number] 12/02/2019 07:06:00 PM EDT [facility] ([facility] Name Value Range Interpretation Code Description Data Luz rce(s) Supporting Document(s) Natriuretic peptide.B prohormone N-Terminal [Mass/volu me] in Serum or Plasma 377 pg/mL [facility] Lactate [Mass/volume] in Serum or Plasma 1.4 mmol/L 0.4-2.0 [facility] Y/N query for Sepsis Lactate Rule: Y Thyrotropin [Units/volume] in Serum or Plasma 1.970 uIU/ML 0.358-3.74 0 [facility] Phenobarbital [Mass/volume] in Serum or Plasma 2.1 UG/ML 15.0-40.0 [facility] ID Date Data Source [id number] 12/02/2019 06:37:00 PM EDT [facility] ([facility] Name Value Range Interpretation Code Description Data [facility]) Supporting Document(s) Troponin I.cardiac [Mass/volume] in Serum or Plasma 0.00 ng/mL 0.00-0 .08 [facility] ID Date Data Source [id number] 12/02/2019 06:35:00 PM EDT [facility] Name Value Range Interpretation Code Description Data [facility]) Supporting Document(s) Laboratory test finding (navigational concept) 116 mg/dL 70-105 [facility] Laboratory test finding (navigational concept) 140 meq/L 136-145 [facility] Laboratory test finding (navigational concept) 31.0 % 38.0-51.0 [facility] Laboratory test finding (navigational concept) 4.8 mg/dL 4.5-5.3 [facility] Laboratory test finding (navigational concept) 99 meq/L 98-109 [facility] Laboratory test finding (navigational concept) 3.8 meq/L 3.5-5.1 [facility] Laboratory test finding (navigational concept) 28.0 MM/L 23.0-27.0 [facility] Laboratory test finding (navigational concept) 17 mg/dL 8-26 [facility] Laboratory test finding (navigational concept) 1.1 mg/dL 0.6-1.3 [facility] ID Date Data Source [id number] 11/24/2019 01:17:00 PM EDT [facility] Name Value Range Interpretation Code Description Data Luz rce(s) Supporting Document(s) CPK Creatine Phosphokinase 26 U/L 26-192 [facility] CK-MB Value Mass 1.2 ng/mL [facility] Troponin I Laboratory test result [facility] <content>Troponin I Reference Interval f or Siemens [place] LOCI:</content>
<content></content>
<content>99th Percentile= 0.00-0.045 ng/ml</content>
<content></content>
<content>Risk Stratification:</content>
<content><= 0.10 ng/ml Decreased Risk for Adverse Clinical</content>
<content>Events.</content>
<content>0.10-1.50 ng/ml Increased Risk for Adverse Clinical</content>
<content>Events. Evaluation of additional</content>
<content>criterion and/or repeat testing in 2-6</content>
<content>hours is suggested to rule out myocardial</content>
<content>damage.</content>
<content>>= 1.50 ng/ml Indicative of Myocardial Injury.</content>
<content></content> MB/CK Relative Index 4.62 [facility] <content>DIAGNOSIS CRITERIA</content>
<content>MMB ng/ml Relative Index (RI)</content>
<content>NON-AMI < or = 5 N/A</content>
<content>GOYAL ZONE > 5 < or = 4</content>
<content>AMI > 5 > 4</content>
<content></content> ID Date Data Source [id number] 11/24/2019 01:17:00 PM EDT [facility] Name Value Range Interpretation Code Description Data Luz rce(s) Supporting Document(s) Alt/SGPT 12 U/L 12-78 [facility] Ast/Sgot 7 U/L 7-37 [facility] Alkaline Phosphatase 56 U/L 45-117 [facility] Bilirubin,Direct 0.3 mg/dL 0.0-0.2 [facility] Bilirubin,Total 0.9 mg/dL 0.2-1.0 [facility] Total Protein 5.5 GM/DL 6.4-8.2 [facility] Albumin 3.2 GM/DL 3.2-5.2 [facility] Albumin/Globulin Ratio 1.4 1.2-2.2 [facility] ID Date Data Source [id number] 11/24/2019 01:17:00 PM EDT [facility] Name Value Range Interpretation Code Description Data Luz rce(s) Supporting Document(s) Natriuretic peptide.B prohormone N-Terminal [Mass/volu me] in Serum or Plasma 244 pg/mL [facility] Thyrotropin [Units/volume] in Serum or Plasma 2.460 uIU/ML 0.358-3.74 0 [facility] C reactive protein [Mass/volume] in Serum or Plasma by High sensitivity method 0.77 mg/dL 0.00-0.30 [facility] ID Date Data Source [id number] 11/24/2019 01:17:00 PM EDT [facility] Name Value Range Interpretation Code Description Data Luz rce(s) Supporting Document(s) Creatinine For GFR 1.27 mg/dL 0.55-1.30 [facility] Glucose, Fasting 139 mg/dL 70-100 [facility] Blood Urea Nitrogen 17 mg/dL 7-18 [facility] Glomerular Filtration Rate 43.4 [facility] <content>Units are mL/min/1.73 m2</content>
<content></content>
<content>Chronic Kidney Disease Staging per [facility]:</content>
<content></content>
<content>Stage I & II GFR >=60 Normal to Mildly Decreased</content>
<content>Stage III GFR 30- 59 Moderately Decreased</content>
<content>Stage IV GFR 15-29 Severely Decreased</content>
<content>Stage V GFR <15 Very Little GFR Left</content>
<content>ESRD GFR <15 on [employer]</content>
<content></content> Sodium Level 140 meq/L 136-145 [facility] Potassium Serum 4.0 meq/L 3.5-5.1 [facility] Carbon Dioxide Level 30 meq/L 21-32 [facility] Chloride Level 105 meq/L 98-107 [facility] Calcium Level 9.2 mg/dL 8.8-10.2 [facility] Anion Gap 5 meq/L 8-16 [facility] ID Date Data Source [id number] 11/24/2019 01:17:00 PM EDT [facility] Name Value Range Interpretation Code Description Data Luz rce(s) Supporting Document(s) White Blood Count 8.2 10 4.0-10.0 [facility] Red Blood Count 3.61 10 4.00-5.40 [facility] Hemoglobin 9.7 g/dL 12.0-15.5 [facility] Hematocrit 32.7 % 36.0-47.0 [facility] Mean Corpuscular Volume 90.6 fl 80.0-96.0 M [facility] Mean Corpuscular Hemoglobin 26.9 pg 27.0-33.0 [facility] Mean Corpuscular HGB Conc 29.7 g/dL 32.0-36.5 [facility] Red Cell Distribution Width 18.0 % 11.5-14.5 [facility] Platelet Count, Automated 158 10 150-450 [facility] Lymph % 10.7 % 24.0-44.0 [facility] Neutrophils % 80.5 % 36.0-66.0 [facility] [place] % 5.6 % 0.0-5.0 [facility] Eos % 2.1 % 0.0-3.0 [facility] Immature Granulocyte % 0.6 % 0-3.0 [facility] Baso % 0.5 % 0.0-1.0 [facility] Nucleated Red Blood Cell % 0.0 % 0-0 [facility] Neutrophils # 6.6 10 1.5-8.5 [facility] Lymph # 0.9 10 1.5-5.0 [facility] [place] # 0.5 10 0.0-0.8 [facility] ([facility] Eos # 0.2 10 0.0-0.5 [facility] Baso # 0.0 10 0.0-0.2 [facility] ID Date Data Source [id number] 11/24/2019 01:17:00 PM EDT [facility] ([facility] Name Value Range Interpretation Code Description Data Luz rce(s) Supporting Document(s) Erythrocyte sedimentation rate by 2H Westergren method 11 mm/hr 0-3 0 [facility] ([facility] ID Date Data Source [id number] 10/10/2019 02:08:00 AM EDT [facility] ([facility] Name Value Range Interpretation Code Description Data Luz rce(s) Supporting Document(s) Venous Partial Pressure Co2 42.1 mmHg 38.0-50.0 [facility] ([facility] Venous PH 7.380 units 7.330-7.430 [facility] ([facility] Venous Partial Pressure O2 66.4 mmHg 30.0-50.0 [facility] ([facility] Venous Total Co2 24.3 meq/L 24.0-28.0 [facility] ( [facility] Venous Base Excess -0.8 [facility] ([facility] Venous Hco3 24.3 meq/L 23.0-27.0 [facility] ([facility] Venous O2 Saturation 91.3 % 60.0-80.0 [facility] ([facility] Venous Standard Hco3 23.7 meq/L [facility] ( [facility] ID Date Data Source [id number] 10/10/2019 02:08:00 AM EDT [facility] ([facility] Name Value Range Interpretation Code Description Data Luz rce(s) Supporting Document(s) Natriuretic peptide.B prohormone N-Terminal [Mass/volu me] in Serum or Plasma 264 pg/mL [facility] ([facility] Thyrotropin [Units/volume] in Serum or Plasma 1.340 uIU/ML 0.358-3.74 0 [facility] Thyroxine (T4) [Mass/volume] in Serum or Plasma 8.4 ug/dL 4.5-12.0 [facility] ([facility] ID Date Data Source [id number] 10/10/2019 02:08:00 AM EDT [facility] ([facility] Name Value Range Interpretation Code Description Data Luz rce(s) Supporting Document(s) Glucose, Fasting 108 mg/dL 70-100 [facility] Blood Urea Nitrogen 17 mg/dL 7-18 [facility] ([facility] Glomerular Filtration Rate 44.2 [facility] <content>Units are mL/min/1.73 m2</content>
<content></content>
<content>Chronic Kidney Disease Staging per [facility]:</content>
<content></content>
<content>Stage I & II GFR >=60 Normal to Mildly Decreased</content>
<content>Stage III GFR 30- 59 Moderately Decreased</content>
<content>Stage IV GFR 15-29 Severely Decreased</content>
<content>Stage V GFR <15 Very Little GFR Left</content>
<content>ESRD GFR <15 on [employer]</content>
<content></content> Creatinine For GFR 1.25 mg/dL 0.55-1.30 [facility] Sodium Level 141 meq/L 136-145 [facility] Potassium Serum 3.9 meq/L 3.5-5.1 [facility] Anion Gap 6 meq/L 8-16 [facility] Chloride Level 106 meq/L 98-107 [facility] Carbon Dioxide Level 29 meq/L 21-32 [facility] ([facility] Calcium Level 9.6 mg/dL 8.8-10.2 [facility] ID Date Data Source [id number] 10/10/2019 02:08:00 AM EDT [facility] ([facility] Name Value Range Interpretation Code Description Data Luz rce(s) Supporting Document(s) Alt/SGPT 10 U/L 12-78 [facility] Ast/Sgot 11 U/L 7-37 [facility] Alkaline Phosphatase 56 U/L 45-117 [facility] ([facility] Bilirubin,Direct 0.2 mg/dL 0.0-0.2 [facility] ([facility] Bilirubin,Total 0.6 mg/dL 0.2-1.0 [facility] ([facility] Albumin 3.4 GM/DL 3.2-5.2 [facility] ([facility] Total Protein 5.7 GM/DL 6.4-8.2 [facility] ([facility] Albumin/Globulin Ratio 1.5 1.2-2.2 [facility] ([facility] ID Date Data Source [id number] 10/10/2019 02:08:00 AM EDT [facility] ([facility] Name Value Range Interpretation Code Description Data Luz rce(s) Supporting Document(s) CPK Creatine Phosphokinase 25 U/L 26-192 [facility] MB/CK Relative Index 4.00 [facility] ([facility] <content>DIAGNOSIS CRITERIA</content>
<content>MMB ng/ml Relative Index (RI)</content>
<content>NON-AMI < or = 5 N/A</content>
<content>GOYAL ZONE > 5 < or = 4</content>
<content>AMI > 5 > 4</content>
<content></content> CK-MB Value Mass 1.0 ng/mL [facility] Troponin I Laboratory test result [facility] ([facility] <content>Troponin I Reference Interval f or Siemens [place] LOCI:</content>
<content></content>
<content>99th Percentile= 0.00-0.045 ng/ml</content>
<content></content>
<content>Risk Stratification:</content>
<content><= 0.10 ng/ml Decreased Risk for Adverse Clinical</content>
<content>Events.</content>
<content>0.10-1.50 ng/ml Increased Risk for Adverse Clinical</content>
<content>Events. Evaluation of additional</content>
<content>criterion and/or repeat testing in 2-6</content>
<content>hours is suggested to rule out myocardial</content>
<content>damage.</content>
<content>>= 1.50 ng/ml Indicative of Myocardial Injury.</content>
<content></content> ID Date Data Source [id number] 10/10/2019 02:08:00 AM EDT [facility] ([facility] Name Value Range Interpretation Code Description Data Luz rce(s) Supporting Document(s) Lactate [Mass/volume] in Serum or Plasma 2.0 mmol/L 0.4-2.0 [facility] ([facility] Y/N query for Sepsis Lactate Rule: Y ID Date Data Source [id number] 10/10/2019 02:08:00 AM EDT [facility] ([facility] Name Value Range Interpretation Code Description Data Luz rce(s) Supporting Document(s) White Blood Count 9.0 10 4.0-10.0 [facility] ([facility] Red Blood Count 3.79 10 4.00-5.40 [facility] ([facility] Hemoglobin 10.3 g/dL 12.0-15.5 [facility] ([facility] Mean Corpuscular Volume 88.4 fl 80.0-96.0 M [facility] ([facility] Hematocrit 33.5 % 36.0-47.0 [facility] ([facility] Mean Corpuscular HGB Conc 30.7 g/dL 32.0-36.5 [facility] ([facility] Mean Corpuscular Hemoglobin 27.2 pg 27.0-33.0 [facility] Platelet Count, Automated 155 10 150-450 [facility] Red Cell Distribution Width 16.8 % 11.5-14.5 [facility] Neutrophils % 80.0 % 36.0-66.0 [facility] Lymph % 13.0 % 24.0-44.0 [facility] ([facility] [place] % 5.9 % 0.0-5.0 [facility] Eos % 0.2 % 0.0-3.0 [facility] Baso % 0.2 % 0.0-1.0 [facility] Immature Granulocyte % 0.7 % 0-3.0 [facility] Nucleated Red Blood Cell % 0.0 % 0-0 [facility] Neutrophils # 7.2 10 1.5-8.5 [facility] Lymph # 1.2 10 1.5-5.0 [facility] Eos # 0.0 10 0.0-0.5 [facility] [place] # 0.5 10 0.0-0.8 [facility] Baso # 0.0 10 0.0-0.2 [facility] ID Date Data Source [id number] 09/06/2019 08:45:00 AM EDT [facility] ([facility]) Name Value Range Interpretation Code Description Data Luz rce(s) Supporting Document(s) PDFReport Laboratory test result [facility] ([facility], ) FVC-Pre 1.51 L [facility] ([facility]) FVC-Pred 2.49 L [facility] ([facility]) FVC-LLN 1.84 L [facility] ([facility]) FVC-%Pred-Pre 60 L [facility] ([facility], ) Fev1-Pred 1.86 L [facility] ([facility]) Fev1-%Pred-Pre 67 L [facility] ([facility]) Fev1-Pre 1.26 L [facility] ([facility]) Fev6-Pre 1.51 L [facility] ([facility]) Fev1-LLN 1.31 L [facility] ([facility]) Fev6-Pred 2.36 L [facility] ([facility]) Agl6orn-Uvg 83 % [facility] ([facility]) Zxx8shk-Thxs 74 % [facility] ([facility]) Fev6-LLN 1.72 L [facility] ([facility]) Fev6-%Pred-Pre 64 L [facility] ([facility]) Xsh3jbw-Lupv 95 % [facility] ([facility]) Xrt8wth-Gzf 100 % [facility] ([facility]) Cwu4sng-SMK 65 % [facility] ([facility]) Wwx1jbr-%Pred-Pre 111 % [facility] ([facility]) Bch7itj-%Pred-Pre 105 % [facility] ([facility]) FEFMax-Pre 1.95 L/E/sec [facility] ([facility]) FEFMax-Pred 4.77 L/E/sec [facility] ([facility]) FEFMax-%Pred-Pre 40 L/E/sec [facility] ([facility]) FEFMax-LLN 3.16 L/E/sec [facility] ([facility]) Dwn7010-Vbpx 1.45 L/E/sec [facility] ([facility]) Tao4565-Stu 1.39 L/E/sec [facility] ([facility]) Hqc3904-XKV 0.28 L/E/sec [facility] ([facility]) ExpTime-Pre 6.05 sec [facility] ([facility]) Lab3626-%Pred-Pre 96 L/E/sec [facility] ([facility]) Pzw2lms4-Ubw 83 % [facility] ([facility]) Yax0yxw5-OJP 69 % [facility] ([facility]) Tvm9rkj3-%Pred-Pre 106 % [facility] ([facility]) Nwr4qau1-Zltd 78 % [facility] ([facility]) ID Date Data Source [id number] 08/29/2019 11:39:00 AM EDT [facility] ([facility] Name Value Range Interpretation Code Description Data Luz rce(s) Supporting Document(s) HDL Cholesterol 50 mg/dL [facility] Triglycerides Level 75 mg/dL [facility] ([facility] Cholesterol Level 121 mg/dL [facility] ([facility] LDL Cholesterol 56 mg/dL [facility] Cholesterol Risk Ratio 2.420 [facility] ([facility] Non-HDL-C 71 mg/dL [facility] ID Date Data Source [id number] 08/29/2019 11:39:00 AM EDT [facility] ([facility] Name Value Range Interpretation Code Description Data Luz rce(s) Supporting Document(s) Hemoglobin A1c 8.1 % [facility] ([facility] REFERENCE RANGES: 4.5-5.6% NORMAL 5.7-6.4% SUGGESTS IMPAIRED GLUCOSE META BOLISM >= 6.5% ABNORMAL Estimated Average Glucose 186 mg/dL 60-110 [facility] ([facility] ID Date Data Source [id number] 08/29/2019 11:39:00 AM EDT [facility] ([facility] Name Value Range Interpretation Code Description Data Luz rce(s) Supporting Document(s) Magnesium [Mass/volume] in Serum or Plasma 2.0 mg/dL 1.8-2.4 [facility] ([facility] ID Date Data Source [id number] 08/29/2019 11:39:00 AM EDT [facility] ([facility] Name Value Range Interpretation Code Description Data Luz e(s) Supporting Document(s) Blood Urea Nitrogen 12 mg/dL 7-18 [facility] ([facility] Glucose, Fasting 132 mg/dL 70-100 [facility] Creatinine For GFR 1.14 mg/dL 0.55-1.30 [facility] ([facility] Glomerular Filtration Rate 49.2 [facility] ([facility] <content>Units are mL/min/1.73 m2</content>
<content></content>
<content>Chronic Kidney Disease Staging per [facility]:</content>
<content></content>
<content>Stage I & II GFR >=60 Normal to Mildly Decreased</content>
<content>Stage III GFR 30- 59 Moderately Decreased</content>
<content>Stage IV GFR 15-29 Severely Decreased</content>
<content>Stage V GFR <15 Very Little GFR Left</content>
<content>ESRD GFR <15 on [employer]</content>
<content></content> Sodium Level 141 meq/L 136-145 [facility] Potassium Serum 4.1 meq/L 3.5-5.1 [facility] ([facility] Anion Gap 8 meq/L 8-16 [facility] Chloride Level 106 meq/L 98-107 [facility] Carbon Dioxide Level 27 meq/L 21-32 [facility] ([facility] Calcium Level 8.5 mg/dL 8.8-10.2 [facility] ([facility] Ast/Sgot 11 U/L 7-37 [facility] Alt/SGPT 12 U/L 12-78 [facility] Alkaline Phosphatase 53 U/L 45-117 [facility] ([facility] Bilirubin,Total 0.8 mg/dL 0.2-1.0 [facility] ([facility] Total Protein 5.6 GM/DL 6.4-8.2 [facility] ([facility] Albumin/Globulin Ratio 1.4 1.2-2.2 [facility] ([facility] Albumin 3.3 GM/DL 3.2-5.2 [facility] ID Date Data Source [id number] 08/23/2019 12:14:00 PM EDT [facility] ([facility] Name Value Range Interpretation Code Description Data Luz rce(s) Supporting Document(s) Glucose, Fasting 163 mg/dL 70-100 [facility] ([facility] Blood Urea Nitrogen 19 mg/dL 7-18 [facility] ([facility] Glomerular Filtration Rate 49.2 [facility] ([facility] <content>Units are mL/min/1.73 m2</content>
<content></content>
<content>Chronic Kidney Disease Staging per [facility]:</content>
<content></content>
<content>Stage I & II GFR >=60 Normal to Mildly Decreased</content>
<content>Stage III GFR 30- 59 Moderately Decreased</content>
<content>Stage IV GFR 15-29 Severely Decreased</content>
<content>Stage V GFR <15 Very Little GFR Left</content>
<content>ESRD GFR <15 on [employer]</content>
<content></content> Creatinine For GFR 1.14 mg/dL 0.55-1.30 [facility] Sodium Level 140 meq/L 136-145 [facility] Potassium Serum 4.8 meq/L 3.5-5.1 [facility] Chloride Level 105 meq/L 98-107 [facility] Carbon Dioxide Level 29 meq/L 21-32 [facility] ([facility] Calcium Level 9.4 mg/dL 8.8-10.2 [facility] ([facility] Anion Gap 6 meq/L 8-16 [facility] ID Date Data Source [id number] 07/31/2019 05:43:00 AM EDT [facility] Name Value Range Interpretation Code Description Data Luz rce(s) Supporting Document(s) SARS coronavirus 2 RNA [Presence] in Uns pecified specimen by TEO with probe detection [facility] This lab was ordered by [facility] and reported by [facility] ID Date Data Source [id number] 07/27/2019 01:30:00 PM EDT [facility] ([facility] Name Value Range Interpretation Code Description Data Luz rce(s) Supporting Document(s) Vancomycin [Mass/volume] in Serum or Plasma --trough 11.9 UG/ML 10.0- 20.0 [facility] ([facility] C reactive protein [Mass/volume] in Serum or Plasma by High sensitivity method 1.74 mg/dL 0.00-0.30 [facility] ([facility] ID Date Data Source [id number] 07/27/2019 01:30:00 PM EDT [facility] ([facility] Name Value Range Interpretation Code Description Data Luz rce(s) Supporting Document(s) Glucose, Fasting 159 mg/dL 70-100 [facility] Blood Urea Nitrogen 15 mg/dL 7-18 [facility] ([facility] Creatinine For GFR 0.98 mg/dL 0.55-1.30 [facility] ([facility] Glomerular Filtration Rate 58.6 [facility] ([facility] <content>Units are mL/min/1.73 m2</content>
<content></content>
<content>Chronic Kidney Disease Staging per [facility]:</content>
<content></content>
<content>Stage I & II GFR >=60 Normal to Mildly Decreased</content>
<content>Stage III GFR 30- 59 Moderately Decreased</content>
<content>Stage IV GFR 15-29 Severely Decreased</content>
<content>Stage V GFR <15 Very Little GFR Left</content>
<content>ESRD GFR <15 on [employer]</content>
<content></content> Sodium Level 140 meq/L 136-145 [facility] Potassium Serum 4.2 meq/L 3.5-5.1 [facility] Chloride Level 104 meq/L 98-107 [facility] Carbon Dioxide Level 30 meq/L 21-32 [facility] ([facility] Anion Gap 6 meq/L 8-16 [facility] ([facility] Calcium Level 8.4 mg/dL 8.8-10.2 [facility] ([facility] ID Date Data Source [id number] 07/27/2019 01:30:00 PM EDT [facility] ([facility] Name Value Range Interpretation Code Description Data Luz rce(s) Supporting Document(s) Erythrocyte sedimentation rate by 2H Westergren method 23 mm/hr 0-3 0 [facility] ID Date Data Source [id number] 07/27/2019 01:30:00 PM EDT [facility] ([facility] Name Value Range Interpretation Code Description Data Luz rce(s) Supporting Document(s) White Blood Count 10.9 10 4.0-10.0 [facility] ([facility] Hemoglobin 10.1 g/dL 12.0-15.5 [facility] ([facility] Red Blood Count 3.68 10 4.00-5.40 [facility] Hematocrit 33.1 % 36.0-47.0 [facility] Mean Corpuscular Volume 89.9 fl 80.0-96.0 M [facility] ([facility] Mean Corpuscular Hemoglobin 27.4 pg 27.0-33.0 [facility] ([facility] Mean Corpuscular HGB Conc 30.5 g/dL 32.0-36.5 [facility] ([facility] Red Cell Distribution Width 16.4 % 11.5-14.5 [facility] ([facility] Platelet Count, Automated 190 10 150-450 [facility] Nucleated Red Blood Cell % 0.3 % 0-0 [facility] ID Date Data Source [id number] 07/20/2019 05:12:00 AM EDT [facility] ([facility] Name Value Range Interpretation Code Description Data Luz rce(s) Supporting Document(s) Erythrocyte sedimentation rate by 2H Westergren method 41 mm/hr 0-3 0 [facility] ([facility] ID Date Data Source [id number] 07/20/2019 05:12:00 AM EDT [facility] ([facility] Name Value Range Interpretation Code Description Data Luz rce(s) Supporting Document(s) White Blood Count 13.2 10 4.0-10.0 [facility] ([facility] Hematocrit 32.5 % 36.0-47.0 [facility] ([facility] Red Blood Count 3.63 10 4.00-5.40 [facility] Mean Corpuscular Volume 89.5 fl 80.0-96.0 M [facility] ([facility] Hemoglobin 10.0 g/dL 12.0-15.5 [facility] ([facility] Red Cell Distribution Width 16.1 % 11.5-14.5 [facility] ([facility] Mean Corpuscular HGB Conc 30.8 g/dL 32.0-36.5 [facility] ([facility] Mean Corpuscular Hemoglobin 27.5 pg 27.0-33.0 [facility] Platelet Count, Automated 199 10 150-450 [facility] Neutrophils % 79.8 % 36.0-66.0 [facility] [place] % 6.1 % 0.0-5.0 [facility] ([facility] Lymph % 10.2 % 24.0-44.0 [facility] Nucleated Red Blood Cell % 0.0 % 0-0 [facility] Baso % 0.5 % 0.0-1.0 [facility] ([facility] Eos % 1.7 % 0.0-3.0 [facility] Immature Granulocyte % 1.7 % 0-3.0 [facility] [place] # 0.8 10 0.0-0.8 [facility] ([facility] Neutrophils # 10.5 10 1.5-8.5 [facility] Lymph # 1.3 10 1.5-5.0 [facility] Baso # 0.1 10 0.0-0.2 [facility] Eos # 0.2 10 0.0-0.5 [facility] ID Date Data Source [id number] 07/20/2019 05:12:00 AM EDT [facility] ([facility] Name Value Range Interpretation Code Description Data Luz e(s) Supporting Document(s) C reactive protein [Mass/volume] in Serum or Plasma by High sensitivity method 3.25 mg/dL 0.00-0.30 [facility] ([facility] ID Date Data Source [id number] 07/20/2019 05:12:00 AM EDT [facility] ([facility] Name Value Range Interpretation Code Description Data Lu[facility](s) Supporting Document(s) Glucose, Fasting 142 mg/dL 70-100 [facility] Glomerular Filtration Rate 57.9 [facility] ([facility] <content>Units are mL/min/1.73 m2</content>
<content></content>
<content>Chronic Kidney Disease Staging per [facility]:</content>
<content></content>
<content>Stage I & II GFR >=60 Normal to Mildly Decreased</content>
<content>Stage III GFR 30- 59 Moderately Decreased</content>
<content>Stage IV GFR 15-29 Severely Decreased</content>
<content>Stage V GFR <15 Very Little GFR Left</content>
<content>ESRD GFR <15 on [employer]</content>
<content></content> Blood Urea Nitrogen 18 mg/dL 7-18 [facility] ([facility] Creatinine For GFR 0.99 mg/dL 0.55-1.30 [facility] Sodium Level 138 meq/L 136-145 [facility] Potassium Serum 4.2 meq/L 3.5-5.1 [facility] Chloride Level 103 meq/L 98-107 [facility] Calcium Level 8.5 mg/dL 8.8-10.2 [facility] Carbon Dioxide Level 33 meq/L 21-32 [facility] ([facility] Anion Gap 2 meq/L 8-16 [facility] ID Date Data Source [id number] 07/12/2019 11:38:10 AM EDT [facility] Name Value Range Interpretation Code Description Data Luz rce(s) Supporting Document(s) &PDF [facility] RRBOIy3cTnNVGgKc77/WOZqoKRLzu6ZdAVyyRQb9SGjnSHFrN8YxuXvpLERNXyJNIBDbMR7DN9XAAtNf yKE [file] AgICAgICAgICAgICAgICAgICAgICAgICAgICAgICAgICAgICAgICAgICAgICAgICAgICAgICAgICAgIC GdRLAgHLPxUSObAXQrZIUnKKUlYGJzBOObPEKeKHFpUTDhFBYaMA9RESZnXEFpLCRsYEPaNEOjDVApTO AgICAgICAgICAgICAgICAgICAgICAgICAgICAgICAg OCUpVGDeFKCyHRGqCETcXSQtOPMsKPOuKEUhLLMnBHItKKQrHBOqBUXhYQApZDDaDM7MJGAvHRBmMCPl ICAgICAgICAgICAgICAgICAgICAgICAgICAgICAgICAgICAgICAgICAgICAgICAgICAgICAgICAgICAg ICAgICAgICAgICAgICAgICAgICAgICAgICAgICAgIA 0KICAgICAgICAgICAgICAgICAgICAgICAgICAgICAgICAgICAgICAgICAgICAgICAgICAgICAgICAgIC AbFMGwYQMiYIDhHKQoVSJcNJNbHZApBTHaBOSbQOVmGDQmJPPkNLKbQG0SMYMmKRUxBZKaVSXzWRHtPV AgICAgICAgICAgICAgICAgICAgICAgICAgICAgICAg ZPZpWMYhFFZvQGJdAJQyWXMcCYRjRLCbMSPwWVRnMDQoTURgSBNgQXShHEIcHQXvATHcTJ3XYHIbUPHz ICAgICAgICAgICAgICAgICAgICAgICAgICAgICAgICAgICAgICAgICAgICAgICAgICAgICAgICAgICAg ICAgICAgICAgICAgICAgICAgICAgICAgICAgICAgIC GiDF6YPHBmFRLxLARdDTUuGFLaNJDhIOGaGXRwJKBqSEBgKJWvBWMgGOAtODRwOAWzGPYaIUCuBKPlJN PtMRFvJEQxUJJvPSGzOKNlASDqGRGmOAShDNWkLPHkIWJcCPXtYKEzEUByIJ4LTRYmVZGrPWHhQTBpON AgICAgICAgICAgICAgICAgICAgICAgICAgICAgICAg UKNeARVnUURlJSRhEZXgUDIgFNOkXXOjNOZbHGNzGNRiDHGmNONtDUYdLGHcDEPpARTkMUJwAB2STKVd ICAgICAgICAgICAgICAgICAgICAgICAgICAgICAgICAgICAgICAgICAgICAgICAgICAgICAgICAgICAg ICAgICAgICAgICAgICAgICAgICAgICAgICAgICAgIC BdVQLsYH1QPBEmAOQrDAYfPSZdERQhLWIaGNYoNWEnMZRpNWMpSFKnWLMdXROvEWUjUQVaDIZzKOYdYD ZvQFJtABQyROXjFSQgHQKiLOJuYQNmGPCiTGRoEUEiMFKbXTViSANoDTWuNUMbLT7CZP65aJZdt5L4VF CsIK0lxot/Nk1WUMwewkZgzVZuBG3ORmIsBZ9kml2K RsMqLE4xav7KHYmUTnWgI9I1pQStZEDcRKCXZjRnI93fIHgfDz80QRpcRBMsXkOzCRt9Hl2FHdZeE6wh CXYpLtF7IHWkLnP7NFUcKtWnMGauXU4Xo6GivCTkCUj+Sj0BYI1kx4ZiYMazFbGpKJ5nfs7KCTdBUyUb E0I3yVOfW9X0LGofOv0KSGKwRMRfJnVtYDLQKUtePN 7HXO9rsqC1BH6UmMBkBCEgHYObcUVrJVd1R33maJTqIAnwPD2IYLE+John+Gn7VTRLuDRWbQSIvVbQmEI MIWhXmJ15vtDZiFMBbIRC1WUYmLp7TULIuV8YptpLukAojvpAmJLSjUKOGKT7VVGwprxZrjJWpkYdpLD 77cIiyRT9JCq0NJoQzNY4mjj2SeVFlYv1KGAFtBa8C PNRkRWTgKPHlECL6ZMTpGdRoWBhfNGSvNZFxSHO2LSAtAJYyNC2SEiPoIGPbUjO5PtulXRHlGMZczi7U ZTFgWFFbDIH0UvWbJIOyDPYpTTphZYVbVNTpNOwvEDAyJOIcBC4MJkNnCJHaMNK5JzMtFFRyIFJzvc4F AICpJICxXoEuBUYtFCJbYKFjTUhbGYWuIVB6XQvsAX AlTGPtCR4BYxFnGUJnGUXyLGclILOxKVSusf1TLDQeEZAfQBP8PlJcXMSsETVyZQyvNODgDOF4LQZgKX VqQRWkRO7VNyXnMPHtVBT2TcFsJKCkGFIlck2IVBXwVRKzOzA1SwWjEMNvOPKwXSytEYEbMRH3Kwp6IK JfFEQhFA2VIbMvCREyXUA6SVAfMQAwJQTrud1BPGXy LMCsMLrgPUCpBDWfBXGqWBdmNWAjGTTjAHH9UFWvZWZrCG9NDxYzLNRrUNIgYphzYITiZBWzcr2IMRVa JOMsArFsNcWqZQYmNAXuLUbsHWRwTDGpHnQ5WXXpOGUgJD8GVyVaOOZzRWC5FZJkUYLkCSNiqn4OPBLt EYMwNvk2IVCsIOPlWXNfMDtzUYSyRKL6VEM9KEMuRK CpKQ9WPwGcZCSbXWm4BblnDWUeIWPths6MBGYjIJMdPql3ZxYyQWWyZFQyRNmyNYXxZATbEsXdTSAaZQ RxBF5ZFfZtMXTxUfC8AHwsOJIuNHPxye9HpAGpfNytyi7HDTuPEo4XoIveWOV1YKooFu9fvNEtRqMqDX YXAg2ByoIpWXEpEFJFPTupZPPuGJamPFHtYIZ1JMP7 KNQwWJBjDqniEQFgWoYmSSQzTKZnIkN0SXKsO3DlUOdrXtJ3JLB9MRZqX3D0CHEoIiP2QnRmXrL+IF0g DQo+Ml8Xz6YxsgZ2uqQvGZvfRLcfXS5NHERDE1JWIn== ID Date Data Source [id number] 07/06/2019 03:31:00 PM EDT [facility] ([facility] Name Value Range Interpretation Code Description Data Luz rce(s) Supporting Document(s) Lactate [Mass/volume] in Serum or Plasma 2.1 mmol/L 0.4-2.0 Above upper panic limits [facility] Y/N query for Sepsis Lactate Rule: Y C reactive protein [Mass/volume] in Serum or Plasma by High sensitivity method 6.10 mg/dL 0.00-0.30 [facility] ([facility] ID Date Data Source [id number] 07/06/2019 03:31:00 PM EDT [facility] ([facility] Name Value Range Interpretation Code Description Data Luz rce(s) Supporting Document(s) Creatinine For GFR 1.08 mg/dL 0.55-1.30 [facility] Glucose, Fasting 152 mg/dL 70-100 [facility] Glomerular Filtration Rate 52.4 [facility] ([facility] <content>Units are mL/min/1.73 m2</content>
<content></content>
<content>Chronic Kidney Disease Staging per [facility]:</content>
<content></content>
<content>Stage I & II GFR >=60 Normal to Mildly Decreased</content>
<content>Stage III GFR 30- 59 Moderately Decreased</content>
<content>Stage IV GFR 15-29 Severely Decreased</content>
<content>Stage V GFR <15 Very Little GFR Left</content>
<content>ESRD GFR <15 on [employer]</content>
<content></content> Blood Urea Nitrogen 17 mg/dL 7-18 [facility] ([facility] Chloride Level 102 meq/L 98-107 [facility] Potassium Serum 4.3 meq/L 3.5-5.1 [facility] Sodium Level 137 meq/L 136-145 [facility] Carbon Dioxide Level 29 meq/L 21-32 [facility] ([facility] Anion Gap 6 meq/L 8-16 [facility] Calcium Level 8.6 mg/dL 8.8-10.2 [facility] ID Date Data Source [id number] 07/06/2019 03:31:00 PM EDT [facility] ([facility] Name Value Range Interpretation Code Description Data Luz rce(s) Supporting Document(s) Ast/Sgot 7 U/L 7-37 [facility] Alkaline Phosphatase 54 U/L 45-117 [facility] Alt/SGPT 17 U/L 12-78 [facility] Bilirubin,Total 0.7 mg/dL 0.2-1.0 [facility] Total Protein 5.5 GM/DL 6.4-8.2 [facility] Bilirubin,Direct 0.3 mg/dL 0.0-0.2 [facility] Albumin 3.1 GM/DL 3.2-5.2 [facility] Albumin/Globulin Ratio 1.3 1.2-2.2 [facility] ID Date Data Source [id number] 07/06/2019 03:31:00 PM EDT [facility] ([facility] Name Value Range Interpretation Code Description Data Luz rce(s) Supporting Document(s) Erythrocyte sedimentation rate by 2H Westergren method 23 mm/hr 0-3 0 [facility] ID Date Data Source [id number] 07/06/2019 03:31:00 PM EDT [facility] ([facility] Name Value Range Interpretation Code Description Data Luz rce(s) Supporting Document(s) Red Blood Count 4.34 10 4.00-5.40 [facility] White Blood Count 12.4 10 4.0-10.0 [facility] ([facility] Hematocrit 38.8 % 36.0-47.0 [facility] Mean Corpuscular Volume 89.4 fl 80.0-96.0 M [facility] Hemoglobin 12.3 g/dL 12.0-15.5 [facility] Mean Corpuscular HGB Conc 31.7 g/dL 32.0-36.5 [facility] Red Cell Distribution Width 16.5 % 11.5-14.5 [facility] Mean Corpuscular Hemoglobin 28.3 pg 27.0-33.0 [facility] [place] % 6.1 % 0.0-5.0 [facility] Neutrophils % 81.7 % 36.0-66.0 [facility] Platelet Count, Automated 151 10 150-450 [facility] Lymph % 9.8 % 24.0-44.0 [facility] Immature Granulocyte % 1.5 % 0-3.0 [facility] Eos % 0.6 % 0.0-3.0 [facility] Baso % 0.3 % 0.0-1.0 [facility] Neutrophils # 10.1 10 1.5-8.5 [facility] ([facility] [facility] Lymph # 1.2 10 1.5-5.0 [facility] (Nuzhat rivera [facility] Nucleated Red Blood Cell % 0.0 % 0-0 [facility] ([facility]hat Langley [facility] Eos # 0.1 10 0.0-0.5 [facility] ([facility]uzhat rivera [facility] Baso # 0.0 10 0.0-0.2 [facility] ([facility]hat [facility]a [facility] [place] # 0.8 10 0.0-0.8 [facility] ([facility]uzhat rivera [facility] ID Date Data Source [id number] 07/06/2019 03:31:00 PM EDT [facility] ([facility] Name Value Range Interpretation Code Description Data Luz rce(s) Supporting Document(s) aPTT in Platelet poor plasma by Coagulation assay 33.2 s 25.0-38. 4 [facility] ([facility]hat [facility] ID Date Data Source [id number] 07/06/2019 03:31:00 PM EDT [facility] ([facility] Name Value Range Interpretation Code Description Data Luz rce(s) Supporting Document(s) Prothrombin Time 21.1 s 11.8-14.0 [facility] ([facility]hat [facility] Inr 1.85 [facility] ([facility]uzhat rivera [facility] THERAPUTIC HUMAN INR VALUES INDICATIONS NORMAL RANGES PROPHYLAXIS/TREATMENT OF: VENOUS THROMBOSIS 2.0-3.0 PULMONARY EMBOLISM 2.0-3.0 PREVENTION OF SYSTEMIC EMBOLISM FROM: TISSUE HEART VALVES 2.0-3.0 ACUTE MYOCARDIAL INFARCTION 2.0-3.0 VALVULAR HEART DISEASE 2.0-3.0 ATRIAL FIBRILLATION 2.0-3.0 MECHANICAL VALVES(HIGH RISK) 2.5-3.5 RECURRENT MYOCARDIAL INFARCTION 2.5-3.5 ID Date Data Source [id number] 07/04/2019 01:39:00 AM EDT [facility] ([facility] Name Value Range Interpretation Code Description Data Luz rce(s) Supporting Document(s) Laboratory test finding (navigational concept) 37.0 % 38.0-51.0 [facility] ([facility]hat [facility] Laboratory test finding (navigational concept) 140 meq/L 136-145 [facility] ([facility]hat [facility] Laboratory test finding (navigational concept) 163 mg/dL 70-105 [facility] ([facility]hat [facility] Laboratory test finding (navigational concept) 3.8 meq/L 3.5-5.1 [facility] ([facility]hat [facility] Laboratory test finding (navigational concept) 101 meq/L 98-109 [facility] ([facility]uzhat [facility] Laboratory test finding (navigational concept) 5.0 mg/dL 4.5-5.3 [facility] ([facility]hat [facility] Laboratory test finding (navigational concept) 28.0 MM/L 23.0-27.0 [facility] ([facility]hat [facility] Laboratory test finding (navigational concept) 21 mg/dL 8-26 [facility] (Nuzhat [facility] Laboratory test finding (navigational concept) 1.1 mg/dL 0.6-1.3 [facility] ([facility]uzhat [facility] ID Date Data Source [id number] 07/04/2019 01:37:00 AM EDT [facility] ([facility] Name Value Range Interpretation Code Description Data Luz rce(s) Supporting Document(s) Blood Culture Laboratory test result [facility] ([facility]uzhat [facility] No growth after 72 hours . All specimens observed for 5 days. Results final at that time. No growth after 48 hours . All specimens observed for 5 days. Results final at that time. No growth after 24 hours . All specimens observed for 5 days. Results final at that time. NO GROWTH AFTER 5 DAYS ID Date Data Source [id number] 07/04/2019 01:22:00 AM EDT [facility] ([facility]hat [facility] Name Value Range Interpretation Code Description Data Luz rce(s) Supporting Document(s) Blood Culture Laboratory test result [facility] ([facility]hat [facility] No growth after 72 hours . All specimens observed for 5 days. Results final at that time. No growth after 48 hours . All specimens observed for 5 days. Results final at that time. No growth after 24 hours . All specimens observed for 5 days. Results final at that time. NO GROWTH AFTER 5 DAYS ID Date Data Source [id number] 07/04/2019 01:22:00 AM EDT [facility] (N[facility]hat [facility] Name Value Range Interpretation Code Description Data Luz rce(s) Supporting Document(s) C reactive protein [Mass/volume] in Serum or Plasma by High sensitivity method 0.65 mg/dL 0.00-0.30 [facility] ([facility]ly So[facility] ID Date Data Source [id number] 07/04/2019 01:22:00 AM EDT [facility] ([facility]hat [facility] Name Value Range Interpretation Code Description Data Luz rce(s) Supporting Document(s) Glucose, Fasting 158 mg/dL 70-100 [facility] (Nuzhat [facility] Blood Urea Nitrogen 21 mg/dL 7-18 [facility] (Cullen [facility] Creatinine For GFR 1.01 mg/dL 0.55-1.30 [facility] ([facility]uzhat [facility] Glomerular Filtration Rate 56.6 [facility] ([facility]hat [facility] <content>Units are mL/min/1.73 m2</content>
<content></content>
<content>Chronic Kidney Disease Staging per NK[facility]:</content>
<content></content>
<content>Stage I & II GFR >=60 Normal to Mildly Decreased</content>
<content>Stage III GFR 30- 59 Moderately Decreased</content>
<content>Stage IV GFR 15-29 Severely Decreased</content>
<content>Stage V GFR <15 Very Little GFR Left</content>
<content>ESRD GFR <15 on [employer]</content>
<content></content> Potassium Serum 3.9 meq/L 3.5-5.1 [facility] ([facility]hat [facility] Sodium Level 142 meq/L 136-145 [facility] ([facility]uzhat [facility] Chloride Level 106 meq/L 98-107 [facility] (Nuzhat [facility]y [facility] Calcium Level 8.7 mg/dL 8.8-10.2 [facility] (Nuzhat Lagnley [facility] Anion Gap 5 meq/L 8-16 [facility] (Nuzhat rivera [facility] Carbon Dioxide Level 31 meq/L 21-32 [facility] (Sukumar [facility]y [facility] ID Date Data Source [id number] 07/04/2019 01:22:00 AM EDT [facility] ([facility]hat [facility] Name Value Range Interpretation Code Description Data Luz rce(s) Supporting Document(s) Erythrocyte sedimentation rate by 2H Westergren method 6 mm/hr 0-3 0 [facility] (Nuzhat Langle[facility] Lactate [Mass/volume] in Serum or Plasma 1.2 mmol/L 0.4-2.0 [facility] (Nuzhat Langle[facility] Y/N query for Sepsis Lactate Rule: Y ID Date Data Source [id number] 07/04/2019 01:22:00 AM EDT [facility] ([facility]hat [facility] Name Value Range Interpretation Code Description Data Luz rce(s) Supporting Document(s) White Blood Count 12.0 10 4.0-10.0 [facility] (Lara [facility]y [facility] Hematocrit 38.3 % 36.0-47.0 [facility] (Nuzhat jennings [facility] Hemoglobin 12.0 g/dL 12.0-15.5 [facility] (Nuzhat jennings [facility] Red Blood Count 4.28 10 4.00-5.40 [facility] (Nuzhat Langle[facility] Mean Corpuscular Volume 89.5 fl 80.0-96.0 M [facility] (Nuzhat Langley [facility] Mean Corpuscular HGB Conc 31.3 g/dL 32.0-36.5 [facility] (Nuzhat Langley [facility] Mean Corpuscular Hemoglobin 28.0 pg 27.0-33.0 [facility] (Nuzhat L[facility]y [facility] Lymph % 14.8 % 24.0-44.0 [facility] (Nuzhat rivera [facility] Red Cell Distribution Width 16.7 % 11.5-14.5 [facility] (Nuzhat L[facility] Neutrophils % 76.9 % 36.0-66.0 [facility] (Nuzhat Langley [facility] Platelet Count, Automated 173 10 150-450 [facility] (Nuzhat Langle[facility] Eos % 0.8 % 0.0-3.0 [facility] (Nuzhat rivera [facility] [place] % 5.8 % 0.0-5.0 [facility] (Nuzhat irvera [facility] Baso % 0.2 % 0.0-1.0 [facility] (Nuzhat rivera [facility] Immature Granulocyte % 1.5 % 0-3.0 [facility] (Nuzhat Langley [facility] Neutrophils # 9.2 10 1.5-8.5 [facility] (Nuzhat Langley [facility] Nucleated Red Blood Cell % 0.0 % 0-0 [facility] (Nuzhat Langley [facility] [place] # 0.7 10 0.0-0.8 [facility] (Nuzhat rivera [facility] Baso # 0.0 10 0.0-0.2 [facility] (Nuzhat rivera [facility] Lymph # 1.8 10 1.5-5.0 [facility] (Nuzhat rivera [facility] Eos # 0.1 10 0.0-0.5 [facility] (Nuzhat rivera [facility] ID Date Data Source [id number] 06/20/2019 10:17:21 PM EDT [facility] Name Value Range Interpretation Code Description Data Luz rce(s) Supporting Document(s) &PDF [facility] NCOBOt4cDwQQBxGs21/HEWmnTZEqc6LaJAebOGz7OVqiMBXyV7LnaEnqWCFLOrUKKBLfPU7RI2DOWwSk oRX [file] ++Tx/FV7ns/9vW/Wp1MEBCazWX4GD+5t2UCERY7P3XlywUOV2RTk7jHXJmB2Hmdmg/zLKcclauu FjZSevG39cW1NrGuI383vSB823kNwmkDmzlfqYps0DKO0XT97cdxzH1tL1d8bBwfKxGw21rp+qru0dwr JWaJL8nYUJv1vgETFnJ3xa1csqDIEHf3j0wLfcffgb Rky2Kj3baKGF6qWAylRXksODWMQ77tnX8JwO+mqRoqYyV0/IindtIsezw+WHFuKIj0N2DcYOx3v528AG rtJZPVQRLMX8noITtSEVWbJCiweCpMET75Z99uhu2dxKK4p0tvqZa/eHWGv5Ms+vaEn25nX8V4HVSd8D hrXnxncyPWheSAt1H9y1IIkKIWoSB3k53+X+9gEN2y 4ypz3xNq3szsuKHpYx4/bv++QpAaZ7zdZONwRuGptghDz1NTTxQ0QT3QTJzKTiLAaXilyYCfx2ZLuwDY 7X0tn3+orDcHaxN2y37Ou+sEzwYAgJ18ODF1p63pLzSvnamSN43erJK9LQWh//T9LwF9OjsDbWq/4t94 StaP/jdfSccntAfIuqcW7G021bdCYQzhHP0R35ys1m 1TLTTI5yAQKTxbN8Mwxu+Pb9RyaseHRubex5Ajo5uHJa/H00xGAQVTMS8LtbZQJCdk62F/XHQlq8nqo9 RKCX2Knq//vQ5hVLIzr+v2TD263ya6CmERDzZAZh6ahuOtsxd1uc+c++Ddra1o2KXb5XpRPoegqo5sD6 yzsi7r/kwK5bskCw8xq1bRQWITYGr1EXNIxCNfu+framing mechanic [file] 5CJVMoIH8q8Lspl6khV+EDwmn/8/VICTOR HUGO/A/UkU3AEEiNqAPO2tlZcaC4DDM1uw5FyJWraDGXlFE3rad0J [file] ICAgICAgICAgICAgICAgICAgICAgICAgICAgICAgICAgICAgICAgICAgICAgICAgICAgICAgICAgICAg SGKrYPIiHFAlCE1TUJNuBCIoJPHwRJHqKPClLWGxAP AgICAgICAgICAgICAgICAgICAgICAgICAgICAgICAgICAgICAgICAgICAgICAgICAgICAgICAgICAgIC KeMPLyVLSuMGJpSYFcHRDdHKQrNN8NLQZfAXFoXCPvTIGpQVGyMJRtMNFvXDDsXJHhBNVmIMOwOPIyYH AgICAgICAgICAgICAgICAgICAgICAgICAgICAgICAg LTGkHENyFIUeIZIpWXBuLPNiLDCeYJSaDSTqQSVeYV4FLRRzZFAbNVAiPWPuRYIuHWZtWDLpGBZjKCKo ICAgICAgICAgICAgICAgICAgICAgICAgICAgICAgICAgICAgICAgICAgICAgICAgICAgICAgICAgICAg RVHoOMHjUNUvVSNwNG4FDPZiYHFsWLPiZZNgUCGuHZ AgICAgICAgICAgICAgICAgICAgICAgICAgICAgICAgICAgICAgICAgICAgICAgICAgICAgICAgICAgIC ItWQRyVNOgBZRyKZGfQPRpEJBpQOLiIH3GCTItURMjVWIqEFRxQVYwZGRsFABjBPFqAWMsPJOoUIYuTO AgICAgICAgICAgICAgICAgICAgICAgICAgICAgICAg PEEbLOSkSCRmKYPxDJSgSHKtYKUsFYChPBEqBVHpEJJgWR7RZPOtLZNoIAXwGFYrSEFeCUOoXZKgQPPn ICAgICAgICAgICAgICAgICAgICAgICAgICAgICAgICAgICAgICAgICAgICAgICAgICAgICAgICAgICAg FONuKRRtRLMsUHYrDIKbSY4TSALaTJTxLYQqIVMcKQ AgICAgICAgICAgICAgICAgICAgICAgICAgICAgICAgICAgICAgICAgICAgICAgICAgICAgICAgICAgIC OlAYDtFQRaQMFxGGKpGIDgXEBuYKCvCUFxKI2IXRArOJOmYNGeYIMhNOQhHJFgTZPiGNDhDGByOADsHU AgICAgICAgICAgICAgICAgICAgICAgICAgICAgICAg XXGxUKIzMSZqZRSoAGZrOFEuKLKuAVNiCRSlYKFhQAWtTNBvDI3ZJUTqOJVmOFGdPKXuFDHmVFLfJWEx ICAgICAgICAgICAgICAgICAgICAgICAgICAgICAgICAgICAgICAgICAgICAgICAgICAgICAgICAgICAg OALaSAFvZMKrPPIxVRYgRQOnOV5WOH02kTKbu9O1NZ QeJS0owih/Nx1WKJyolgNakOLrDG9FOiNsTL5mbj4WKwRhLQ5uku9ANElECbEpF0S0oOEfEQJtZZZRIm AxS66pOOoxWa99BDggAUEhDyEmJEf3Ch5DQhVsC7vjCUGwDaI1KZYmKhF7AYXpXpCoFSrqDB7Wv0RfsI AyDQo+Re8PXA3gf6MoAOqeDwObAM2ihz1LMEnZMcUu I7F7qRLeQ1H3HZmyVd3ZJVCiBLEmKtVrRTCBULbwAX9MNX1gisQ0HH3LlKLtEPGxYAPgsHGhCDc2W16d tZKhXRnkUK3NJPR+John+Uk8YILNwGVKnDCLfJrUcDCJMIbGwT29ekXYnAGVbFFLaRDPoDl5MUBVoB5Ow xrBclNrzeuAuRKFjINLTZN8MIAnojaJqgODbhEhaDQ 04oCftAF3RJr0IOrDiLR4olk6PoSKwDm7AHWBkQU1LPKWoBXHwXPAnLHV2MPAbVbKhRPrvJJDsUTJiIU V5TFQhPUYaWW2UDwUzKPRsKHupQbLhLFYcKXGmmh6RQNHjHBG4BHi1YGQpGOJbAIBqWJviCVUvAYEmPI tqPREjNGBpGQ0KOoPkBHAhIYV7QZRqEZWdMUSvmk4D MAFmKCKlRkVbCdGrFKMyMSSmUQzkVJMcPQH8TBTzUNSxVNKpLZ7LYxAkJLXjQHTgUrAjMEZkLGXlnm2W MEQbIBDyKdZ6ZRTcZQEiMBVoVJxjPSNbWWY5XWukVGQeMEVaQR5JZmKrMSYwSEc2IrEqOHBiJGGgtw5Z NZKoJYKaHJTfKPRqZQLzRJRsBJadHJYhQGK9IKPoET RqTMCaRH8TDeGhYEVzEHddVbAlOPTkEPLqsn3KADYoEPBrHkl6JwGuOCHqQRSlRYzrKQRxFHY3LBd2MW KeCQZcYJ2QDgBxUCYuVIE3QEVjODRoBEBlcu8FZQWpTZViKXS6FuTkIQMtECCkNAonKYMcPAB1UsgnOR DlOOHqWC9KUhFjHETaLAQ2JdCqSWTlXTPrni6ODUTp QKYbFKhnTGFdRHXtBXAdATvfQDViQAW0YEnmMOEyLXZeJJ6DQtOlJSIbAcR0NanuUAMrIJDbgv5NULYq AIPdQRz6PDDnZEGbJUIkEUgdWGGcMXJ7OTFeWPCaNPNmKE7DSrFxLOUwTWVvKEgrDUOtRLCann1DLUPe LJC5SHM7FjOySWQdPEDoCPmySTIvJTZoBHU8OWKfDV CeMR9JPwWzZVQcNqUpIPDkXYDsDHSnsb7WTQDcWST7SJo3QzYoNIJkFHZaOGzaVVXnJEq7LGP0VERwJX UuTI7YIsQwGHZyXGu5DmSrMGTmEWHkhl9YCNJfRDE2IZO0ZFPpCPAmIYLaFBc1hyCzuUEkRUy2MJ8PF4 CmhpKtIgMBXn1Jw079VWAbREXcKx2JA3euXf1lHRJv UMPPTz9BCGn5KDQgRJXzAKIcNIv1XgYaBrD4CXD4C3Q6Kkc0HrDgQDE+WYfwZoFsBuVcFOB5GzvzZOL2 JwH6RYB6AfIbAIM0DdPzJD1cWPXVJt4+GBeynGIddFeeLOZOEwh3UmJwRXnbSCCHBg5P ID Date Data Source [id number] 05/16/2019 07:23:00 PM EDT [facility] ([facility] Name Value Range Interpretation Code Description Data Luz rce(s) Supporting Document(s) Laboratory test finding (navigational concept) 183 mg/dL 70-105 [facility] (Nuzhat Langle[facility] Laboratory test finding (navigational concept) 38.0 % 38.0-51.0 [facility] (Nuzhat Langley [facility] Laboratory test finding (navigational concept) 4.8 mg/dL 4.5-5.3 [facility] (Nuzhat Langley [facility] Laboratory test finding (navigational concept) 4.1 meq/L 3.5-5.1 [facility] (N[facility]hat L[facility]y [facility] Laboratory test finding (navigational concept) 139 meq/L 136-145 [facility] (Nuzhat L[facility] Laboratory test finding (navigational concept) 28.0 MM/L 23.0-27.0 [facility] (Nuzhat L[facility]y [facility] Laboratory test finding (navigational concept) 17 mg/dL 8-26 [facility] (Nuzhat L[facility] Laboratory test finding (navigational concept) 100 meq/L 98-109 [facility] (N[facility]hat [facility] Laboratory test finding (navigational concept) 1.3 mg/dL 0.6-1.3 [facility] (N[facility]hat [facility] ID Date Data Source [id number] 05/16/2019 06:59:00 PM EDT [facility] ([facility] Name Value Range Interpretation Code Description Data Luz rce(s) Supporting Document(s) Reflex Urine Culture Laboratory test result [facility] ([facility]hat [facility] <content>FULL REPORT IN LAB NOTES ([facility] a nd [facility]).</content>
<content></content>
<content>ORGANISM 1: ESCHERICHIA COLI</content>
<content></content>
<content>COLONY COUNT 20,000</content>
<content></content>
<content></content>
<content>OR GANISM 1: ESCHERICHIA COLI</content>
<content></content>
<content> ESCHERICHIA COLI: REACTION</content>
<content>TRIMETHOPRIM/SULFAMETHOXAZOLE IV 160mg TMP & 800mg SMXq6h <=20 S</content>
<content> TRIMETHOPRIM/SULFAMETHOXAZOLE PO Bactrim DS Bid <=20 S</content>
<content>AMPICILLIN IV 500mg q6h 8 S</content>
<content>AMPICILLIN PO 500mg q6h fasting 8 S</content>
<content>GENTAMICIN IV 80mg q8h <=1 S</content>
<content>NITROFURANTOIN PO 100mg BID 32 S</content>
<content>CEFAZOLIN IV 1gm q8h <=4 S</content>
<content> LEVOFLOXACIN IV 500mg qd <=0.12 S</content>
<content>LEVOFLOXACIN PO 250mg qd <=0.12 S</content>
<content>LEVOFLOXACIN PO 500mg qd <=0.12 S</content>
<content>TOBRAMYCIN IV 80mg q8h <=1 S</content>
<content>CEFTRIAXONE IV 1gm q24h <=1 S</content>
<content>CEFTAZIDIME IV 1gm q8h <=1 S</content>
<content> AMPICILLIN/SULBACTAM IV 1.5g q6h 4 S</content>
<content>PIPERACILLIN/TAZOBACTAM IV 2.25 gm q6h <=4 S</content>
<content>AZTREONAM IV 1gm q8h <=1 S</content>
<content>ERTAPENEM IV 1gm qd <=0.5 S</content>
<content>MEROPENEM IV 1 gm q8h <=0.25 S</content>
<content>MEROPENEM IV 500 mg q8h <=0.25 S</content>
<content>TIGECYCLINE IV 50mg q12h <=0.5 S</content>
<content>CEFEPIME IV 1 gm q12h <=1 S</content>
<content>CEFEPIME IV 2 gm q12h <=1 S</content>
<content>EXTD BRD SPCTRM BETA LACTAMASE IV NEGATIVE FOR ESBL</content>
<content></content> ID Date Data Source [id number] 05/16/2019 06:59:00 PM EDT [facility] ([facility] Name Value Range Interpretation Code Description Data Luz rce(s) Supporting Document(s) Color, Urine RFX Laboratory test result [facility] ([facility] Appearance, Urine RFX Laboratory test result [facility] ([facility] PH,Urine RFX 6.0 units 5.0-9.0 [facility] ([facility] Protein, Urine Auto RFX Laboratory test result [facility] ([facility] Specific [place] Ur Auto RFX 1.004 1.002-1.035 [facility] ([facility] Ketone, Urine Auto RFX Laboratory test result [facility] ([facility] Glucose, Urine (Ua) Auto RFX Laboratory test result [facility] ([facility] Bilirubin, Urine Auto RFX Laboratory test result [facility] ([facility] Nitrite, Urine Auto RFX Laboratory test result [facility] ([facility] Urobilinogen, Urine Auto RFX 0.2 mg/dL 0.0-2.0 [facility] ([facility] Blood, Urine Blood RFX Laboratory test result [facility] ([facility] Leukocyte Esterase Ur Auto RFX Laboratory test result [facility] ([facility] RBC, Urine Auto RFX 1 /HPF 0-3 [facility] (Cullen [facility] WBC, Urine Auto RFX 1 /HPF 0-3 [facility] ([facility] Bacteria, Urine Auto RFX Laboratory test result [facility] ([facility] Squam Epithelial Cell Ur Aurfx 0 /HPF 0-6 [facility] ([facility] Hyaline Cast, Urine Auto RFX 0 /LPF 0-1 [facility] ([facility] ID Date Data Source [id number] 05/16/2019 06:47:00 PM EDT [facility] ([facility] Name Value Range Interpretation Code Description Data Luz rce(s) Supporting Document(s) Natriuretic peptide.B prohormone N-Terminal [Mass/volu me] in Serum or Plasma 368 pg/mL [facility] ID Date Data Source [id number] 05/16/2019 06:47:00 PM EDT [facility] ([facility] Name Value Range Interpretation Code Description Data Luz rce(s) Supporting Document(s) CPK Creatine Phosphokinase 39 U/L 26-192 [facility] CK-MB Value Mass 1.3 ng/mL [facility] Troponin I Laboratory test result [facility] ([facility] <content>Troponin I Reference Interval f or Siemens [place] LOCI:</content>
<content></content>
<content>99th Percentile= 0.00-0.045 ng/ml</content>
<content></content>
<content>Risk Stratification:</content>
<content><= 0.10 ng/ml Decreased Risk for Adverse Clinical</content>
<content>Events.</content>
<content>0.10-1.50 ng/ml Increased Risk for Adverse Clinical</content>
<content>Events. Evaluation of additional</content>
<content>criterion and/or repeat testing in 2-6</content>
<content>hours is suggested to rule out myocardial</content>
<content>damage.</content>
<content>>= 1.50 ng/ml Indicative of Myocardial Injury.</content>
<content></content> MB/CK Relative Index 3.33 [facility] ([facility] <content>DIAGNOSIS CRITERIA</content>
<content>MMB ng/ml Relative Index (RI)</content>
<content>NON-AMI < or = 5 N/A</content>
<content>GOYAL ZONE > 5 < or = 4</content>
<content>AMI > 5 > 4</content>
<content></content> ID Date Data Source [id number] 05/16/2019 06:47:00 PM EDT [facility] ([facility] Name Value Range Interpretation Code Description Data Luz rce(s) Supporting Document(s) White Blood Count 10.3 10 4.0-10.0 [facility] (Lara [facility] Red Blood Count 4.48 10 4.00-5.40 [facility] ([facility] Hemoglobin 12.3 g/dL 12.0-15.5 [facility] (N[facility]hat jennings [facility] Hematocrit 39.9 % 36.0-47.0 [facility] ([facility]hat [facility]ennings [facility] Mean Corpuscular Hemoglobin 27.5 pg 27.0-33.0 [facility] ([facility] Mean Corpuscular Volume 89.1 fl 80.0-96.0 M [facility] ([facility] Platelet Count, Automated 163 10 150-450 [facility] ([facility] Mean Corpuscular HGB Conc 30.8 g/dL 32.0-36.5 [facility] ([facility] Red Cell Distribution Width 15.8 % 11.5-14.5 [facility] ([facility] Neutrophils % 87.2 % 36.0-66.0 [facility] ([facility] Lymph % 7.4 % 24.0-44.0 [facility] ([facility]hat rivera [facility] [place] % 3.4 % 0.0-5.0 [facility] ([facility] Eos % 1.1 % 0.0-3.0 [facility] ([facility] Neutrophils # 8.9 10 1.5-8.5 [facility] ([facility] Immature Granulocyte % 0.6 % 0-3.0 [facility] ([facility] Baso % 0.3 % 0.0-1.0 [facility] ([facility] Nucleated Red Blood Cell % 0.0 % 0-0 [facility] ([facility] Lymph # 0.8 10 1.5-5.0 [facility] Eos # 0.1 10 0.0-0.5 [facility] [place] # 0.4 10 0.0-0.8 [facility] Baso # 0.0 10 0.0-0.2 [facility] Procedure Social History Code Duration Value Status Description Data Source(s ) Smoking 01/31/2020 12:00:00 AM EST - 08/15/2013 12:00:00 AM EDT Patient is a former smoker completed Patient is a former smoker [facility] Alcohol intake 01/19/2020 12:00:00 AM EST No completed [facility] Cigarette pack-years 01/19/2020 12:00:00 AM EST UNK completed [facility] Cigarettes smoked current (pack per day) - Reported 01/19/20 12:00:00 AM EST UNK completed [facility] Smoking 01/19/2020 12:00:00 AM EST Former smoker completed Former smoker [facility] Smoking 09/06/2019 12:00:00 AM EDT Patient is a former smoker completed Patient is a former smoker [facility] ([facility] ) Vital Signs ID Date Data Source UNK Name Value Range Interpretation Code Description Data Source(s) Body mass index (BMI) [Ratio] 38.7 kg/m2 38.7 k g/m2 [facility] [place] body weight 105 [lb_av] 105 [lb_av] [facility] ([facility] Oxygen saturation in Arterial blood by Pulse oximetry 96 % 96 % [facility] ([facility] Body weight 208.25 [lb_av] 208.25 [lb_av] [facility] ([facility] Body height 61.5 [in_i] 61.5 [in_i] [facility] ([facility] 5'1.50" Respiratory rate 20 /min 20 /min [facility] ( [facility] Body temperature 97.1 [degF] 97.1 [degF] [facility] Heart rate 76 /min 76 /min [facility] Diastolic blood pressure 37 mm[Hg] 37 mm[Hg] [facility] Systolic blood pressure 70 mm[Hg] 70 mm[Hg] M [facility] ([facility] Oxygen saturation in Arterial blood by Pulse oximetry 98 % 98 % [facility] Body mass index (BMI) [Ratio] 45.91 kg/m2 45.91 kg/m2 [facility] Body weight 113.853 kg 113.853 kg [facility] Body height 157.5 cm 157.5 cm [facility] Heart rate 93 /min 93 /min [facility] Diastolic blood pressure 60 mm[Hg] 60 mm[Hg] [facility] Systolic blood pressure 132 mm[Hg] 132 mm[Hg] [facility] Body mass index (BMI) [Ratio] 46.9 kg/m2 46.9 k g/m2 [facility] [place] body weight 105 [lb_av] 105 [lb_av] [facility] ([facility] Oxygen saturation in Arterial blood by Pulse oximetry 94 % 94 % [facility] Body weight 252.50 [lb_av] 252.50 [lb_av] [facility] ([facility] Body height 61.5 [in_i] 61.5 [in_i] [facility] 5'1.50" Respiratory rate 22 /min 22 /min [facility] ( [facility] Body temperature 97.3 [degF] 97.3 [degF] [facility] Heart rate 93 /min 93 /min [facility] Diastolic blood pressure 77 mm[Hg] 77 mm[Hg] [facility] Systolic blood pressure 108 mm[Hg] 108 mm[Hg] [facility] Body mass index (BMI) [Ratio] 47.1 kg/m2 47.1 k g/m2 [facility] [place] body weight 105 [lb_av] 105 [lb_av] [facility] ([facility] Oxygen saturation in Arterial blood by Pulse oximetry 95 % 95 % [facility] Body weight 253.38 [lb_av] 253.38 [lb_av] [facility] ([facility] Body height 61.5 [in_i] 61.5 [in_i] [facility] 5'1.50" Respiratory rate 26 /min 26 /min [facility] ( [facility] Body temperature 96.9 [degF] 96.9 [degF] [facility] Heart rate 100 /min 100 /min [facility] Diastolic blood pressure 61 mm[Hg] 61 mm[Hg] [facility] Systolic blood pressure 120 mm[Hg] 120 mm[Hg] [facility] Body mass index (BMI) [Ratio] 46.7 kg/m2 46.7 k g/m2 [facility] [place] body weight 105 [lb_av] 105 [lb_av] [facility] ([facility] Oxygen saturation in Arterial blood by Pulse oximetry 94 % 94 % [facility] on room air Body weight 251.38 [lb_av] 251.38 [lb_av] [facility] ([facility] Body height 61.5 [in_i] 61.5 [in_i] [facility] 5'1.50" Respiratory rate 22 /min 22 /min [facility] ( [facility] Body temperature 97.3 [degF] 97.3 [degF] [facility] Heart rate 70 /min 70 /min [facility] Diastolic blood pressure 53 mm[Hg] 53 mm[Hg] [facility] Systolic blood pressure 109 mm[Hg] 109 mm[Hg] M [facility] Body mass index (BMI) [Ratio] 49.4 kg/m2 49.4 k g/m2 [facility] [place] body weight 105 [lb_av] 105 [lb_av] [facility] ([facility] Oxygen saturation in Arterial blood by Pulse oximetry 95 % 95 % [facility] Body weight 266.00 [lb_av] 266.00 [lb_av] [facility] ([facility] Body height 61.5 [in_i] 61.5 [in_i] [facility] 5'1.50" Respiratory rate 24 /min 24 /min [facility] ( [facility] Body temperature 97.2 [degF] 97.2 [degF] [facility] Heart rate 83 /min 83 /min [facility] ([facility] Diastolic blood pressure 65 mm[Hg] 65 mm[Hg] [facility] ([facility] Systolic blood pressure 116 mm[Hg] 116 mm[Hg] M [facility] ([facility] Body mass index (BMI) [Ratio] 49.1 kg/m2 49.1 k g/m2 [facility] ([facility] [place] body weight 105 [lb_av] 105 [lb_av] [facility] T ([facility] Oxygen saturation in Arterial blood by Pulse oximetry 96 % 96 % [facility] ([facility] Body weight 264.38 [lb_av] 264.38 [lb_av] [facility] ([facility] Body height 61.5 [in_i] 61.5 [in_i] [facility] ([facility] 5'1.50" Respiratory rate 17 /min 17 /min [facility] ( [facility] Body temperature 97.3 [degF] 97.3 [degF] [facility] ([facility] Heart rate 90 /min 90 /min [facility] ([facility] Diastolic blood pressure 78 mm[Hg] 78 mm[Hg] [facility] ([facility] Systolic blood pressure 138 mm[Hg] 138 mm[Hg] M [facility] ([facility] Body mass index (BMI) [Ratio] 49.9 kg/m2 49.9 k g/m2 [facility] ([facility] [place] body weight 105 [lb_av] 105 [lb_av] [facility] ([facility] Oxygen saturation in Arterial blood by Pulse oximetry 95 % 95 % [facility] ([facility] Body weight 268.25 [lb_av] 268.25 [lb_av] [facility] ([facility] Body height 61.5 [in_i] 61.5 [in_i] [facility] ([facility] 5'1.50" Respiratory rate 22 /min 22 /min [facility] ( [facility] Body temperature 97.2 [degF] 97.2 [degF] [facility] ([facility] Heart rate 95 /min 95 /min [facility] ([facility] Diastolic blood pressure 47 mm[Hg] 47 mm[Hg] [facility] Systolic blood pressure 91 mm[Hg] 91 mm[Hg] M [facility] ([facility] Body mass index (BMI) [Ratio] 49.1 kg/m2 49.1 k g/m2 [facility] ([facility] Oxygen saturation in Arterial blood by Pulse oximetry 90 % 90 % [facility] ([facility] Body weight 264.38 [lb_av] 264.38 [lb_av] [facility] ([facility] Body height 61.5 [in_i] 61.5 [in_i] [facility] ([facility] 5'1.50" Respiratory rate 22 /min 22 /min [facility] ( [facility] Body temperature 97.6 [degF] 97.6 [degF] [facility] ([facility] Heart rate 100 /min 100 /min [facility] ([facility] Diastolic blood pressure 94 mm[Hg] 94 mm[Hg] [facility] Systolic blood pressure 139 mm[Hg] 139 mm[Hg] M [facility] ([facility] Body mass index (BMI) [Ratio] 49.7 kg/m2 49.7 k g/m2 [facility] ([facility] Oxygen saturation in Arterial blood by Pulse oximetry 96 % 96 % [facility] ([facility] Body weight 267.19 [lb_av] 267.19 [lb_av] [facility] ([facility] Body height 61.5 [in_i] 61.5 [in_i] [facility] ([facility] 5'1.50" Respiratory rate 24 /min 24 /min [facility] ( [facility] Body temperature 96.4 [degF] 96.4 [degF] [facility] ([facility] Heart rate 98 /min 98 /min [facility] ([facility] Diastolic blood pressure 81 mm[Hg] 81 mm[Hg] [facility] ([facility] Systolic blood pressure 155 mm[Hg] 155 mm[Hg] M [facility] ([facility] Diastolic blood pressure 86 mm[Hg] 86 mm[Hg] [facility] ([facility] Systolic blood pressure 171 mm[Hg] 171 mm[Hg] M [facility] ([facility] Body weight 120.658 kg 120.658 kg [facility] ([facility]) Body mass index (BMI) [Ratio] 48.6 kg/m2 48.6 k g/m2 [facility] ([facility]) Body weight 266.00 [lb_av] 266.00 [lb_av] [facility] T ([facility]) Body height 62 [in_i] 62 [in_i] [facility] 5'2" Body temperature 97.1 [degF] 97.1 [degF] [facility] ([facility]) Oxygen saturation in Arterial blood by Pulse oximetry 94 % 94 % [facility] ([facility]) Heart rate 94 /min 94 /min [facility] ([facility]) Diastolic blood pressure 78 mm[Hg] 78 mm[Hg] [facility] ([facility]) Systolic blood pressure 122 mm[Hg] 122 mm[Hg] [facility] Body weight 117.936 kg 117.936 kg [facility] ([facility]) Body mass index (BMI) [Ratio] 47.5 kg/m2 47.5 k g/m2 [facility] ([facility]) Body weight 260.00 [lb_av] 260.00 [lb_av] [facility] Body height 62 [in_i] 62 [in_i] [facility] 5'2" Body temperature 97.6 [degF] 97.6 [degF] [facility] ([facility]) Oxygen saturation in Arterial blood by Pulse oximetry 94 % 94 % [facility] Body weight 287.38 [lb_av] 287.38 [lb_av] [facility] ([facility] Body height 61.5 [in_i] 61.5 [in_i] [facility] ([facility] 5'1.50" Respiratory rate 32 /min 32 /min [facility] ( [facility] Body temperature 97.5 [degF] 97.5 [degF] [facility] Heart rate 85 /min 85 /min [facility] ([facility] Diastolic blood pressure 78 mm[Hg] 78 mm[Hg] [facility] Systolic blood pressure 163 mm[Hg] 163 mm[Hg] M [facility] ([facility] Body mass index (BMI) [Ratio] 53.4 kg/m2 53.4 k g/m2 [facility] ([facility] Body mass index (BMI) [Ratio] 48.5 kg/m2 48.5 k g/m2 [facility] ([facility] Oxygen saturation in Arterial blood by Pulse oximetry 96 % 96 % [facility] ([facility] Body weight 261.12 [lb_av] 261.12 [lb_av] [facility] ([facility] Body height 61.5 [in_i] 61.5 [in_i] [facility] ([facility] 5'1.50" Respiratory rate 20 /min 20 /min [facility] ( [facility] Body temperature 99.1 [degF] 99.1 [degF] [facility] ([facility] Heart rate 90 /min 90 /min [facility] ([facility] Diastolic blood pressure 74 mm[Hg] 74 mm[Hg] [facility] Systolic blood pressure 136 mm[Hg] 136 mm[Hg] M [facility] ([facility] Body weight 116.122 kg 116.122 kg [facility] ([facility]) Body mass index (BMI) [Ratio] 50.0 kg/m2 50.0 k g/m2 [facility] ([facility]) Body weight 256.00 [lb_av] 256.00 [lb_av] [facility] T ([facility]) Body height 60 [in_i] 60 [in_i] [facility] ([facility]) 5'0" Body temperature 98.4 [degF] 98.4 [degF] [facility] Oxygen saturation in Arterial blood by Pulse oximetry 95 % 95 % [facility] ([facility]) Room Air Heart rate 94 /min 94 /min [facility] ([facility]) Diastolic blood pressure 84 mm[Hg] 84 mm[Hg] [facility] Systolic blood pressure 132 mm[Hg] 132 mm[Hg] [facility] Body mass index (BMI) [Ratio] 47.0 kg/m2 47.0 k g/m2 [facility] ([facility]) Body weight 249.00 [lb_av] 249.00 [lb_av] [facility] T ([facility]) Body height 61 [in_i] 61 [in_i] [facility] ([facility]) 5'1" Body temperature 98.3 [degF] 98.3 [degF] [facility] ([facility]) Body mass index (BMI) [Ratio] 48.0 kg/m2 48.0 k g/m2 [facility] ([facility] Oxygen saturation in Arterial blood by Pulse oximetry 95 % 95 % [facility] ([facility] Body weight 258.12 [lb_av] 258.12 [lb_av] [facility] ([facility] Body height 61.5 [in_i] 61.5 [in_i] [facility] ([facility] 5'1.50" Respiratory rate 20 /min 20 /min [facility] ( [facility] Body temperature 97.9 [degF] 97.9 [degF] [facility] ([facility] Heart rate 71 /min 71 /min [facility] ([facility] Diastolic blood pressure 62 mm[Hg] 62 mm[Hg] [facility] Systolic blood pressure 122 mm[Hg] 122 mm[Hg] M [facility] ([facility] Body mass index (BMI) [Ratio] 49.1 kg/m2 49.1 k g/m2 [facility] ([facility] Oxygen saturation in Arterial blood by Pulse oximetry 91 % 91 % [facility] ([facility] room air Body weight 264.00 [lb_av] 264.00 [lb_av] [facility] ([facility] Body height 61.5 [in_i] 61.5 [in_i] [facility] ([facility] 5'1.50" Respiratory rate 26 /min 26 /min [facility] ( [facility] Body temperature 97.5 [degF] 97.5 [degF] [facility] Heart rate 71 /min 71 /min [facility] ([facility] Diastolic blood pressure 69 mm[Hg] 69 mm[Hg] [facility] Systolic blood pressure 105 mm[Hg] 105 mm[Hg] M [facility] ([facility] Patient Treatment Plan of Care Planned Activity Planned Date Details Description Data Source (s) torsemide 20 MG Oral Tablet 01/12/2020 12:00:[address] [facility] Metformin hydrochloride 500 MG Oral Tablet 01/11/2020 12:00:00 AM E [facility] Bacitracin 0.5 UNT/MG / Neomycin 0.0035 MG/MG / Polymyxin B 10 UNT/MG Topical Ointment 12/27/2019 12:00:00 AM EST [facility] Albuterol 0.833 MG/ML / Ipratropium [place] 0.167 MG/M L Inhalant Solution 12/27/2019 12:00:00 AM EST [facility] Fluconazole 100 MG Oral Tablet 12/08/2019 12:00:00 AM EDT [facility] potassium chloride SA (K-DUR,KLOR-CON) 20 MEQ tablet 12:00:00 AM EDT [facility] Metolazone 2.5 MG Oral Tablet 06/25/2019 12:00:00 AM EDT [facility] Potassium Chloride 20 MEQ Extended Release Oral Tablet 06/25/2019 12:00:00 AM EDT [facility] Prednisone 5 MG Oral Tablet 06/25/2019 12:00:00 AM EDT [facility] rivaroxaban 20 MG Oral Tablet 06/25/2019 12:00:00 AM EDT [facility] Furosemide 40 MG Oral Tablet 06/11/2019 12:00:00 AM EDT [facility] tizanidine 4 MG Oral Tablet [facility] 60 ACTUAT Fluticasone propionate 0.5 MG/ ACTUAT / salmeterol 0.05 MG/ACTUAT Dry Powder Inhaler [facility]
--- OUTSIDE RECORDS SUMMARY | 2020-03-07 21:52 | CCD ---
Author Author [facility] Organization [facility] Address Unknown Phone Unavailable Care Team Providers Care Clinical Microbiologist Name Role Phone Zachary Langley MD Unavailable [...] Shivam, Zachary Noland MD Unavailable Unavailable Shivam, Zcahary Noland MD Unavailable Unavailable Shivam, Zachary Noland [...] Unavailable Unavailable RENETTA, NAVEEN OSMAN Unavailable Unavailable RENETAT, NAVEEN OSMAN Unavailable Unavailable RENETTA, NAVEEN OSMAN [...] RENETTA, NAVEEN OSMAN Unavailable Unavailable RENETTA, NAVEEN OSAMN Unavailable Unavailable RENETTA, NAVEEN OSMAN Unavailable Unavailable [...] Jeff Hernández MD Unavailable Unavailable Pleskach, Criselda RN ANGIOGRAPHY Unavailable Unavailable Pleskach, Criselda RN ANGIOGRAPHY Unavailable Unavailable Pleskach, Criselda RN ANGIOGRAPHY Unavailable Unavailable Pleskach, Criselda RN ANGIOGRAPHY Unavailable Unavailable Pleskach, Criselda RN ANGIOGRAPHY Unavailable Unavailable Pleskach, Criselda RN ANGIOGRAPHY Unavailable Unavailable Pleskach, Criselda RN ANGIOGRAPHY Unavailable Unavailable Pleskach, Criselda RN ANGIOGRAPHY Unavailable Unavailable Pleskach, Criselda RN ANGIOGRAPHY Unavailable Unavailable Pleskach, Criselda RN ANGIOGRAPHY Unavailable Unavailable Pleskach, Criselda RN ANGIOGRAPHY Unavailable Unavailable Pleskach, Criselda RN ANGIOGRAPHY Unavailable Unavailable Pleskach, Criselda RN ANGIOGRAPHY Unavailable Unavailable Pleskach, Criselda RN ANGIOGRAPHY Unavailable Unavailable Pleskach, Criselda RN ANGIOGRAPHY Unavailable Unavailable Pleskach, Criselda RN ANGIOGRAPHY Unavailable Unavailable Pleskach, Criselda RN ANGIOGRAPHY Unavailable Unavailable Pleskach, Criselda RN ANGIOGRAPHY Unavailable Unavailable Pleskach, Criselda RN ANGIOGRAPHY Unavailable Unavailable Pleskach, Criselda RN ANGIOGRAPHY Unavailable Unavailable Pleskach, Criselda RN ANGIOGRAPHY Unavailable Unavailable Pleskach, Criselda RN ANGIOGRAPHY Unavailable Unavailable Pleskach, Criselda RN ANGIOGRAPHY Unavailable Unavailable Pleskach, Criselda RN ANGIOGRAPHY Unavailable Unavailable Pleskach, Criselda RN ANGIOGRAPHY Unavailable Unavailable Pleskach, Criselda RN ANGIOGRAPHY Unavailable Unavailable Pleskach, Criselda RN ANGIOGRAPHY Unavailable Unavailable Pleskach, Criselda RN ANGIOGRAPHY Unavailable Unavailable Brantley, M Barratt PA Unavailable [...] is protected by Article 27-F of the [facility] Public Health law. If you continue you may have access to information: Regarding HIV / AIDS; Provided by facilities licensed or operated by the [facility] Office of Mental Health; or Provided by the [facility] Office for People With Developmental Disabilities. If such information is present, then the following [facility] mandated warning applies: This information has been [...] law may result in a fine or senior care sentence or both. A general authorization for the release of medical or other information is NOT sufficient authorization for further disc losure. Family History Family Member Name Family Member Gender Family Member Status Date o f Status Description Data Source(s) Unknown Male Problem [facility] ([facility] Unknown Male Problem [facility] in 1985 Unknown Unknown Problem [facility] ([facility] Unknown Male Problem [facility] ([facility] Encounters Encounter Providers Location Date Indications Data Source(s ) Outpatient Attender: Criselda Herrera [facility] Main Office 01/31/2020 1 0:45:00 AM EST [facility] ([facility] Outpatient Attender: Criselda Herrera [facility] Main Office 01/19/2020 0 1:00:00 PM EST [facility] ([facility] Outpatient Attender: NAVEEN JACKSON MD [facility].ZAIDA-SJ.ZAIDA 0 12:00:00 AM EST - 01/19/2020 04:09:59 PM EST [facility] Outpatient Attender: Criselda Herrera [facility] Main Office 01/11/2020 0 2:45:00 PM EST [facility] ([facility] Outpatient Attender: Criselda Herrera [facility] Main Office 12/16/2019 0 1:15:00 PM EDT [facility] ([facility] Outpatient Attender: Criselda Herrera [facility] Main Office 12/02/2019 0 4:00:00 PM EDT [facility] ([facility] Outpatient Attender: Criselda Herrera [facility] Main Office 11/24/2019 1 0:00:00 AM EDT [facility] ([facility] Outpatient Attender: Criselda AUGUSTIN Main Office 10/20/2019 0 1:45:00 PM EDT [facility] ([facility] Outpatient Attender: Criselda Sharon RN ANGIOGRAPHY Main Office 09/20/2019 0 1:00:00 PM EDT [facility] ([facility] Outpatient Attender: Criselda Sharon RN ANGIOGRAPHY Main Office 09/06/2019 1 1:30:00 AM EDT [facility] ([facility] Outpatient Referrer: NAVEEN JACKSON MD 08/03/2019 05:39:00 AM E DT [facility] Outpatient Attender: Edgar Hyman/Vipul/Alex/Pam sloanl 07/26/2019 10:30:00 AM EDT [facility] ([facility] ) Outpatient Attender: Nuzhat Langley MD Main Office 07/21/2019 10:40:0 0 AM EDT [facility] ([facility] Outpatient Referrer: NAVEEN JACKSON MD 07/20/2019 08:50:00 AM E DT [facility] Outpatient Referrer: PROVIDER SYSTEM IN 07/16/2019 0 2:14:00 PM EDT L leg cellulitis [facility] L leg cellulitis Outpatient Referrer: NAVEEN JACKSON MD 07/08/2019 04:52:00 AM E DT [facility] Outpatient Attender: Criselda MEADP Main Office 07/06/2019 0 1:00:00 PM EDT [facility] ([facility] Outpatient Referrer: NAVEEN FLANAGAN.CT-SJP.SYR 07/06/2019 08:57:33 AM EDT [facility] Outpatient Attender: NAVEEN JACKSON MDConsultant: NAVEEN JACKSON MD S SHERI.ZAIDA-SJP.ZAIDA 06/25/2019 02:18:30 PM EDT - 06/25/2019 03:24:46 PM EDT [facility] Outpatient PANCHITO.CT-SJP.SYR 06/18/2019 11:40:10 AM EDT [facility] Outpatient Referrer: NAVEEN JACKSON MD SJИрина.ZAIDA-SJP.ZAIDA 0 10:40:26 AM EDT - 06/17/2019 12:12:23 PM EDT [facility] Outpatient Attender: NAVEEN JACKSON MDReferrer: NAVEEN FLANAGAN .ZIADA-SJP.ZAIDA 06/17/2019 10:39:30 AM EDT - 06/17/2019 01:42:16 PM EDT [facility] Outpatient Attender: NAVEEN MEDINASJP.GVR 0 12:00:00 AM EDT - 06/11/2019 08:59:39 AM EDT [facility] Outpatient Referrer: NAVEEN JACKSON MD 06/07/2019 06:37:00 AM E DT [facility] Outpatient Attender: Km Bolanos/Vipul/Alex/Chauncey ndamauri 06/02/2019 10:30:00 AM EDT [facility] ([facility] OFFICE OUTPATIENT NEW 30 MINUTES Attender: Jeffy DIANA Ph ysical Therapy 05/21/2019 02:00:00 PM EDT [facility] ([facility]) Outpatient Referrer: NAVEEN JACKSON MD 05/19/2019 10:16:00 AM E DT [facility] Outpatient Attender: Nuzhat Langley MD Main Office 01/26/2019 10:15:0 0 AM EST [facility] ([facility] Outpatient Attender: Nuzhat Langley MD Main Office 01/20/2019 10:15:0 0 AM EST [facility] ([facility] Outpatient Attender: NAVEEN JACKSON MD SJИрина.ZAIDA-SJP.ZAIDA 01/13/2019 12:00:00 AM EST [facility] Medications Medication Brand Name Start Date Product [...] by mouth 2 (two) times a day [facility] Metformin hydrochloride 500 MG Oral Tablet metFORMIN ( GLUCOPHAGE) 500 MG tablet metFORMIN (GLUCOPHAGE) 500 MG tablet 01/11/2020 12:00:00 AM EST active [facility] Albuterol 0.833 MG/ML / Ipratropium Brom danial 0.167 MG/ML Inhalant Solution ipratropium-albuterol (DUO-NEB) 0.5-2.5 mg/mL nebulizer ipratropium-albuterol (DUO-NEB) 0.5-2.5 mg/mL nebulizer 12/27/2019 12:00:00 AM EST active [facility] Bacitracin 0.5 UNT/MG / Neomycin 0.0035 MG/MG / Polymyxin B 10 UNT/MG Topical Ointment Gblpiuju-Fcmhjzcvxz-Sjgqwdgyv (FIRST AID ANTIBIOTIC) 3.5-400-5000 MG- UNIT OINT Cowvdlay-Fpcxkpchwi-Gglpmbcyo (FIRST AID ANTIBIOTIC) 3.5-400-5000 MG- UNIT OINT 12/27/2019 12:00:00 AM EST active [facility] Fluconazole 100 MG Oral Tablet fluconazole (DIFLUCAN) 100 MG tablet fluconazole (DIFLUCAN) 100 MG tablet 12/08/2019 12:00:00 AM EDT aborted [facility] Metolazone 2.5 MG Oral Tablet Metolazone 12/08/2019 [...] [facility] Docusate Sodium 50 MG / sennosides, [facility] 8.6 MG Oral Ta blet Senna-Docusate Sodium [...] ORAL completed [facility] ([facility] Acetaminophen [...] MOUTH FOUR TIMES A DAY SOLD: 07/04/2019 [facility] Lidocaine Pain Relief Lidocaine Pain Relief [...] prior to the Furosemide once a day. [facility] potassium chloride SA (K-DUR,KLOR-CON) 20 MEQ tablet [id number] 06/25/2019 12:00:00 AM EDT aborted [facility] Prednisone 5 MG Oral Tablet predniSONE (DELTASONE) 5 M G tablet predniSONE (DELTASONE) 5 MG tablet 06/25/2019 12:00:00 AM EDT 5 mg Oral active Chronic bronchitis, unspecified chronic bronchitis type Take 1 tablet (5 mg total) by mouth daily [facility] Chronic bronchitis, unspecified chronic bronchitis type Potassium Chloride 20 MEQ Extended Relea se Oral Tablet Potassium Chloride ER 20 MEQ TBCR Potassium Chloride ER 20 MEQ TBCR 06/25/2019 12:00:00 AM EDT 20 meq Oral active Take 1 tablet (20 mE q total) by mouth daily [facility] rivaroxaban 20 MG Oral Tablet rivaroxaban (XARELTO) 20 MG TABS rivaroxaban (XARELTO) 20 MG TABS 06/25/2019 12:00:00 AM EDT 20 mg Oral active Atrial fibrillation, unspecified type Take 1 tablet (20 mg total) b y mouth daily [facility] Atrial fibrillation, unspecified type Furosemide 40 MG Oral Tablet furosemide (LASIX) 40 MG tablet furosemide (LASIX) 40 MG tablet 06/11/2019 12:00:00 AM EDT 40 mg Oral abort ed Take 1 tablet (40 mg total) by mouth 2 (two) times a day [facility] Prednisone 10 MG Oral Tablet Prednisone 06/02/2019 12:00:00 AM EDT completed [facility] Prednisone 10 MG Oral Tablet Prednisone 06/02/2019 12:00:00 AM EDT completed [facility] ([facility] tizanidine 4 MG Oral Tablet [Zanaflex] Zanaflex 05/21/2019 12:00:00 AM EDT ORAL active [facility] ([facility]) Acetaminophen 500 MG Oral Tablet Acetaminophen 03/17/2019 [...] mouth every 6 (six) hours as needed [facility] 60 ACTUAT Fluticasone propionate 0.5 MG/ ACTUAT / salmeterol 0.05 MG/ACTUAT Dry Powder Inhaler fluticasone-salmeterol (ADVAIR) 500-50 MCG/DOSE DISKUS fluticasone-salmeterol (ADVAIR) 500-50 MCG/DOSE DISKUS 1 {puff} Inhalation aborted Inhale 1 puff 2 (two) amy es a day [facility] Insurance Providers Payer name Policy type / Coverage type Policy ID Covered libertarian ID Covered libertarian's relationship to sellers Policy Sellers Plan Information FOR LIFE [id number] MEDICARE [id number] SP [id number] MEDICARE [id number] MEDICARE [id number] Susanna [id number] Spo [id number] MEDICARE C [id number] S [id number] FOR LIFE O [id number] S [id number] SELF PAY PGBA [facility] [id number] HU2 [id number] [facility] O [id number] S [id number] FOR LIFE [id number] FOR LIFE U [id number] Self [id number] MEDICARE A [id number] Self [id number] FOR LIFE U [id number] Self [id number] MEDICARE A [id number] Self [id number] A MEDICARE [id number] Susanna [id number] A For Life Medigap Part B [id number] Family Dependent [id number] [place] Primary [id number] Self [id number] For Life Medigap Part B [id number] Family Dependent [id number] [place] Primary [id number] Self [id number] For Life Reg 1 Medigap Part B [id number] Family Depen dent [id number] Medicare - NGS Medicare Primary [id number] Self [id number] For Life Medigap Part B [id number] Family Dependent [id number] [place] Primary [id number] Self [id number] For Life Medigap Part B [id number] Family Dependent [id number] [place] Primary [id number] Self [id number] For Life Reg 1 Medigap Part B [id number] Family Depen dent [id number] Medicare - NGS Medicare Primary [id number] Self [id number] For Life Medigap Part B [id number] Family Dependent [id number] [place] Primary [id number] Self [id number] MEDICARE [id number] SP [id number] A For Life Reg 1 Medigap Part B [id number] Family Depen dent [id number] Medicare - NGS Medicare Primary [id number] Self [id number] MEDICARE C UNAVAILABLE S UNAVAILA BLE MEDICARE C [id number] S [id number] A FOR LIFE [id number] [id number] For Life Reg 1 Medigap Part B [id number] Family Depen dent [id number] Medicare - NGS Medicare Primary [id number] Self [id number] [place] MEDICARE PART B C [id number] S [id number] For Life Medigap Part B [id number] Family Dependent [id number] [place] Primary [id number] Self [id number] For Life Medigap Part B [id number] Family Dependent [id number] [place] Primary [id number] Self [id number] For Life Medigap Part B [id number] Family Dependent [id number] [place] Primary [id number] Self [id number] PI PI MEDICARE PI PI [id number] Spo [id number] For Life Medigap Part B [id number] Family Dependent [id number] [place] Primary [id number] Self [id number] For Life Reg 1 Medigap Part B [id number] Family Depen dent [id number] Medicare - NGS Medicare Primary [id number] Self [id number] For Life - WPS Medigap Part B [id number] Self [id number] Medicare (Part A) Medicare Primary [id number] Self [id number] Medicare (Part B) Medicare Primary [id number] Self [id number] For Life Medigap Part B [id number] Family Dependent [id number] [place] Primary [id number] Self [id number] For Life - WPS Medigap Part B [id number] Self [id number] Medicare (Part A) Medicare Primary [id number] Self [id number] Medicare (Part B) Medicare Primary [id number] Self [id number] For Life Medigap Part B [id number] Family Dependent [id number] [place] Primary [id number] Self [id number] S [facility] C [id number] S [id number] For Life Medigap Part B [id number] Family Dependent [id number] [place] Primary [id number] Self [id number] For Life Medigap Part B [id number] Family Dependent [id number] [place] Primary [id number] Self [id number] For Life Medigap Part B [id number] Family Dependent [id number] [place] Primary [id number] Self [id number] For Life WPS Medigap Part B [id number] Self [id number] Medicare [place] Gov't Servi Medicare Primary [id number] Self [id number] For Life Medigap Part B [id number] Family Dependent [id number] [place] Primary [id number] Self [id number] FOR LIFE [id number] SP [id number] For Life Medigap Part B Family Dependent Medicare [facility] Medicare Primary Self FOR LIFE [id number] SP [id number] FOR LIFE [id number] SP [id number] MEDICARE [id number] SP [id number] A RETIREE MEDICAL INSURANCE PLAN [id number] SP [id number] PMA MANAGEMENT [facility] [id number] SP [id number] [facility] [id number] [id number] Problems, Conditions, and Diagnoses Code Display Name Description Problem Type Effective Dates Data Source(s) M79.604 Pain in both lower extremities Pain in both lower extr emities [id number] 01/19/2020 12:00:00 AM [facility] Chronic obstructive pulmonary disease wi th (acute) exacerbation Chronic obstructive pulmonary disease with (acute) exacerbation Problem 10/20/2019 12:00:00 AM EDT [facility] ([facility] [id number] Type 2 diabetes mellitus in obese Type 2 diabete s mellitus in obese Problem 10/20/2019 12:00:00 AM EDT [facility] ([facility] [id number] 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 Problem 10/20/2019 12:00:00 AM EDT [facility] ([facility] [id number] 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 Problem 10/20/19 12:00:00 AM EDT [facility] ([facility] I87.2 Venous stasis dermatitis of both lower e xtremities Venous stasis dermatitis of both lower extremities [id number] 07/31/2019 12:00:00 AM EDT [facility] R26.81 Unsteady gait Unsteady gait [id number] 07/31/2019 12:00:00 AM EDT [facility] R54 Frailty Frailty [id number] 07/31/2019 12:00:00 AM ED T [facility] L03.116 Cellulitis of left lower extremity Cellulitis of left lower extremity [id number] 07/31/2019 12:00:00 AM EDT [facility] [id number] Acute on chronic systolic heart failure Acute on chronic systolic heart failure Problem 06/02/2019 12:00:00 AM EDT [facility] ([facility] L leg cellulitis L leg cellulitis Diagnosis 07/16/2019 02 :14:00 PM EDT [facility] D69.6 Thrombocytopenia, unspecified Thrombocytopenia, unspec ified Diagnosis 06/25/2019 02:18:30 PM EDT [facility] E66.9 Obesity, unspecified Obesity, unspecified Diagnosis 06/25/2019 02:18:30 PM EDT [facility] E11.9 Type 2 diabetes mellitus without complic ations Type 2 diabetes mellitus without complic Diagnosis 06/25/2019 02:18:30 PM EDT [facility] Z95.0 Presence of cardiac pacemaker Presence of cardiac pace maker Diagnosis 06/25/2019 02:18:30 PM EDT [facility] J42 Unspecified chronic bronchitis Unspecified chronic bro nchitis Diagnosis 06/25/2019 02:18:30 PM EDT [facility] F41.8 Other specified anxiety disorders Other specifie d anxiety disorders Diagnosis 06/25/2019 02:18:30 PM EDT [facility] 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 Coronary atherosclerosis due to calcifie Diagnosis 06/25/2019 02:18:30 PM EDT [facility] I25.10 Atherosclerotic heart diseas e of [place] coronary artery without angina pectoris Atherosclerotic heart disease of [place] Diagnosis 06/25/2019 02:18:30 PM EDT [facility] I49.5 Sick sinus syndrome Sick sinus syndrome Diagnosis 0 06/25/2019 02:18:30 PM EDT [facility] I48.92 Unspecified atrial flutter Unspecified atrial flutter Diagnosis 06/25/2019 02:18:30 PM EDT [facility] I10 Essential (primary) hypertension Essential (primary) h ypertension Diagnosis 06/25/2019 02:18:30 PM EDT [facility] R06.02 Shortness of breath Shortness of breath Diagnosis 0 06/25/2019 02:18:30 PM EDT [facility] I50.30 Unspecified diastolic (congestive) heart failure Unspecified diastolic (congestive) heart Diagnosis 06/25/2019 02:18:30 PM EDT [facility] R91.8 Other nonspecific abnormal finding of larry ng field Other nonspecific abnormal finding of larry Diagnosis 06/10/2019 02:21:51 PM EDT [facility] K21.9 Gastro-esophageal reflux disease without esophagitis Gastro-esophageal reflux disease without Diagnosis 01/13/2019 11:43:49 AM EST [facility] H40.9 Unspecified glaucoma Unspecified glaucoma Diagnosis 01/13/2019 11:43:49 AM [facility] Surgeries/Procedures Procedure Description Date Indications Data Source(s) Mammogram 01/26/2020 12:00:00 AM EST [facility] ([facility] ECG ROUTINE ECG W/LEAST 12 LDS W/I&R POCT AMB EKG Routine 01/19/2020 5:19 PM EST Atrial flutter, unspecified type 01/19/2020 10:19:00 PM EST Atrial flutter, unspecified type [facility] Atrial flutter, unspecified type BLOOD COUNT COMPLETE AUTO&AUTO DIFRNTL WBC COUNT CBC AND DIFFER ENTIAL Routine 12/08/2019 12/08/2019 12:00:00 AM EDT [facility] BASIC METABOLIC PANEL CALCIUM TOTAL BASIC METABOLIC PANEL Routine 12/08/2019 12/08/2019 12:00:00 AM EDT [facility] ARTHROCENTESIS ASPIR&/INJECTION MAJOR JT/BURSA 020 12:00:00 AM EDT [facility] ([facility] ) X-Ray Hip Unilateral With Pelvis 2-3 Views 05/21/2019 12:00:00 AM EDT [facility] ([facility] ) RADIOLOGIC EXAM KNEE COMPLETE 4/MORE VIEWS 05/21/2019 12:00:00 AM EDT [facility] ([facility] ) Results ID Date Data Source [id number] 01/31/2020 01:53:00 PM EST [facility] ([facility] [...] [facility] ID Date Data Source [id number] 01/31/2020 01:53:00 PM EST [facility] ([facility] Name Value Range Interpretation Code Description Data Luz rce(s) Supporting Document(s) Natriuretic peptide.B prohormone N-Terminal [Mass/volu me] in Serum or Plasma 226 pg/mL [facility] ([facility] ID Date Data Source [id number] 01/31/2020 01:53:00 PM EST [facility] ([facility] [...] Little GFR Left</content>
<content>ESRD GFR <15 on MANAGER GRAPHIC</content>
<content></content> Sodium Level 141 meq/L 136-145 [facility] [...] [facility] ID Date Data Source [id number] 01/31/2020 01:53:00 PM EST [facility] ([facility] Name Value Range Interpretation Code Description Data [facility](s) Supporting Document(s) Ast/Sgot 4 U/L 7-37 [...] [facility] ID Date Data Source [id number] 01/31/2020 01:53:00 PM EST [facility] ([facility] Name Value Range Interpretation Code Description Data [facility](s) Supporting Document(s) CPK Creatine Phosphokinase 25 [...] <content>Troponin I Reference Interval f or Siemens Tucker LOCI:</content>
<content></content>
<content>99th Percentile= 0.00-0.045 ng/ml</content>
<content></content>
<content>Risk Stratification:</content>
<content><= 0.10 ng/ml Decreased Risk for Adverse Clinical</content>
<content>Events.</content>
<content>0.10-1.50 ng/ml Increased Risk for Adverse Clinical</content>
<content>Events. Evaluation of additional</content>
<content>criterion and/or repeat testing in 2-6</content>
<content>hours is suggested to rule out myocardial</content>
<content>damage.</content>
<content>>= 1.50 ng/ml Indicative of Myocardial Injury.</content>
<content></content> ID Date Data Source [id number] 01/31/2020 01:53:00 PM EST [facility] ([facility] [...] Cell Distribution Width 16.8 % 11.5-14.5 [facility] ([facility] Platelet Count, Automated 144 10 150-450 [facility] ([facility] Lymph % 11.0 % 24.0-44.0 [facility] ([facility] Neutrophils % 80.7 % 36.0-66.0 [facility] ([facility] Eos % 0.9 % 0.0-3.0 [facility] ([facility] Sebastian % 6.1 % 0.0-5.0 [facility] (Nuzhat rivera [...] 10 1.5-8.5 [facility] ([facility] Sebastian # 0.6 10 0.0-0.8 [facility] ([facility] Eos # 0.1 10 0.0-0.5 [facility] ([facility] Baso # 0.0 10 0.0-0.2 [facility] ([facility] ID Date Data Source [id number] 01/24/2020 12:25:00 AM EST [facility] ([facility] [...] <content>Troponin I Reference Interval f or Siemens Tucker LOCI:</content>
<content></content>
<content>99th Percentile= 0.00-0.045 ng/ml</content>
<content></content>
<content>Risk Stratification:</content>
<content><= 0.10 ng/ml Decreased Risk for Adverse Clinical</content>
<content>Events.</content>
<content>0.10-1.50 ng/ml Increased Risk for Adverse Clinical</content>
<content>Events. Evaluation of additional</content>
<content>criterion and/or repeat testing in 2-6</content>
<content>hours is suggested to rule out myocardial</content>
<content>damage.</content>
<content>>= 1.50 ng/ml Indicative of Myocardial Injury.</content>
<content></content> ID Date Data Source [id number] 01/23/2020 09:51:00 PM EST [facility] ([facility] [...] <content>Troponin I Reference Interval f or Siemens Tucker LOCI:</content>
<content></content>
<content>99th Percentile= 0.00-0.045 ng/ml</content>
<content></content>
<content>Risk Stratification:</content>
<content><= 0.10 ng/ml Decreased Risk for Adverse Clinical</content>
<content>Events.</content>
<content>0.10-1.50 ng/ml Increased Risk for Adverse Clinical</content>
<content>Events. Evaluation of additional</content>
<content>criterion and/or repeat testing in 2-6</content>
<content>hours is suggested to rule out myocardial</content>
<content>damage.</content>
<content>>= 1.50 ng/ml Indicative of Myocardial Injury.</content>
<content></content> ID Date Data Source [id number] 01/23/2020 09:51:00 PM EST [facility] ([facility] [...] [facility] ID Date Data Source [id number] 01/23/2020 09:51:00 PM EST [facility] ([facility] Langley [...] MYOCARDIAL INFARCTION 2.5-3.5 ID Date Data Source [id number] 01/23/2020 09:51:00 PM EST [facility] ([facility] Langley [...] % 36.0-66.0 [facility] ([facility] Sebastian % 5.0 % 0.0-5.0 [facility] (Nuzhat rivera [...] 10 1.5-5.0 [facility] ([facility] Sebastian # 0.5 10 0.0-0.8 [facility] ([facility] Eos # 0.0 10 0.0-0.5 [facility] ([facility] Baso # 0.0 10 0.0-0.2 [facility] ([facility] ID Date Data Source [id number] 01/23/2020 09:51:00 PM EST [facility] ([facility]uzhat Langley [...] Little GFR Left</content>
<content>ESRD GFR <15 on MANAGER GRAPHIC</content>
<content></content> Sodium Level 139 meq/L 136-145 [facility] [...] [facility] ID Date Data Source [id number] 01/23/2020 09:51:00 PM EST [facility] ([facility] Name Value Range Interpretation Code Description Data Luz rce(s) Supporting Document(s) Natriuretic peptide.B prohormone N-Terminal [Mass/volu me] in Serum or Plasma 519 pg/mL [facility] ([facility] ID Date Data Source [id number] 01/19/2020 02:58:00 PM EST [facility] ([facility] Name Value Range Interpretation Code Description Data Luz rce(s) Supporting Document(s) Hemoglobin A1c 6.5 % [facility] ([facility] <content>REFERENCE RANGES:</content><br/ ><content></content>
<content><=5.6% NORMAL</content>
<content>5.7-6.4% SUGGESTS IMPAIRED GLUCOSE METABOLISM/PREDIABETIC</content>
<content>>= 6.5% ABNORMAL</content>
<content></content> Estimated Average Glucose 140 mg/dL 60-110 [facility] ([facility] ID Date Data Source [id number] 01/19/2020 02:58:00 PM EST [facility] ([facility] Langley [...] Little GFR Left</content>
<content>ESRD GFR <15 on MANAGER GRAPHIC</content>
<content></content> Sodium Level 138 meq/L 136-145 [facility] [...] [facility] ID Date Data Source [id number] 12/02/2019 07:46:00 PM EDT [facility] (Nuzhat Langley [...] pathogens. DISCLAIMER: Testing was performed using the [employer] SARS-CoV-2 test. This test was developed and its performance characteristics determined by [employer]. This test has not been FDA cleared [...] or revoked sooner. ID Date Data Source [id number] 12/02/2019 07:06:00 PM EDT [facility] (Nuzhat Langley [...] MYOCARDIAL INFARCTION 2.5-3.5 ID Date Data Source [id number] 12/02/2019 07:06:00 PM EDT [facility] ([facility]uzhat Langley [...] % 0.0-3.0 [facility] ([facility] Sebastian % 7.1 % 0.0-5.0 [facility] ([facility] Nucleated Red Blood Cell % 0.0 % 0-0 [facility] ([facility] Baso % 0.5 % 0.0-1.0 [facility] ([facility] Immature Granulocyte % 0.6 % 0-3.0 [facility] ([facility] Eos # 0.2 10 0.0-0.5 [facility] ([facility] Sebastian # 0.6 10 0.0-0.8 [facility] ([facility] Lymph # 1.0 10 1.5-5.0 [facility] ([facility] Neutrophils # 6.9 10 1.5-8.5 [facility] ([facility] Baso # 0.0 10 0.0-0.2 [facility] ([facility] ID Date Data Source [id number] 12/02/2019 07:06:00 PM EDT [facility] ([facility] Langley [...] [facility] ID Date Data Source [id number] 12/02/2019 07:06:00 PM EDT [facility] ([facility] Langley [...] [facility] ID Date Data Source [id number] 12/02/2019 07:06:00 PM EDT [facility] ([facility]uzhat Langley [...] [facility] ID Date Data Source [id number] 12/02/2019 06:37:00 PM EDT [facility] ([facility] Name Value Range Interpretation Code Description Data Luz [facility](s) Supporting Document(s) Troponin I.cardiac [Mass/volume] in Serum or Plasma 0.00 ng/mL 0.00-0 .08 [facility] ([facility] ID Date Data Source [id number] 12/02/2019 06:35:00 PM EDT [facility] ([facility] Name Value Range Interpretation Code Description Data Luz [facility](s) Supporting Document(s) Laboratory test finding (navigational concept) [...] [facility] ID Date Data Source [id number] 11/24/2019 01:17:00 PM EDT [facility] ([facility] Name Value Range Interpretation Code Description Data Luz rce(s) Supporting Document(s) CPK Creatine Phosphokinase 26 U/L 26-192 [facility] ([facility] CK-MB Value Mass 1.2 ng/mL [facility] ([facility] Troponin I Laboratory test result [facility] ([facility] <content>Troponin I Reference Interval f or Siemens Tucker LOCI:</content>
<content></content>
<content>99th Percentile= 0.00-0.045 ng/ml</content>
<content></content>
[...] > 4</content>
<content></content> ID Date Data Source [id number] 11/24/2019 01:17:00 PM EDT [facility] ([facility]uzhat Langley [...] [facility] ID Date Data Source [id number] 11/24/2019 01:17:00 PM EDT [facility] (Nuzhat Langley [...] ([facility] ID Date Data Source [id number] 11/24/2019 01:17:00 PM EDT [facility] ([facility]uzhat Langley [...] Little GFR Left</content>
<content>ESRD GFR <15 on MANAGER GRAPHIC</content>
<content></content> Sodium Level 140 meq/L 136-145 [facility] [...] [facility] ID Date Data Source [id number] 11/24/2019 01:17:00 PM EDT [facility] ([facility]uz[facility] Langley [...] % 36.0-66.0 [facility] ([facility] Sebastian % 5.6 % 0.0-5.0 [facility] (Nuzhat rivera [...] 10 1.5-5.0 [facility] ([facility] Sebastian # 0.5 10 0.0-0.8 [facility] ([facility] Eos # 0.2 10 0.0-0.5 [facility] ([facility] Baso # 0.0 10 0.0-0.2 [facility] ([facility] ID Date Data Source [id number] 11/24/2019 01:17:00 PM EDT [facility] ([facility] Name Value Range Interpretation Code Description Data Luz rce(s) Supporting Document(s) Erythrocyte sedimentation rate by 2H Westergren method 11 mm/hr 0-3 0 [facility] ([facility] ID Date Data Source [id number] 10/10/2019 02:08:00 AM EDT [facility] (Nuzhat Langley [...] [facility] ID Date Data Source [id number] 10/10/2019 02:08:00 AM EDT [facility] ([facility]uzhat Langley [...] [facility] ID Date Data Source [id number] 10/10/2019 02:08:00 AM EDT [facility] (Nuzhat Langley [...] Little GFR Left</content>
<content>ESRD GFR <15 on MANAGER GRAPHIC</content>
<content></content> Creatinine For GFR 1.25 mg/dL 0.55-1.30 [...] [facility] ID Date Data Source [id number] 10/10/2019 02:08:00 AM EDT [facility] ([facility] Name Value Range Interpretation Code Description Data Luz rce(s) Supporting Document(s) Alt/SGPT 10 U/L 12-78 [facility] ([facility] Ast/Sgot 11 U/L 7-37 [facility] ([facility] Alkaline Phosphatase 56 U/L 45-117 [facility] ([facility] Bilirubin,Direct 0.2 mg/dL 0.0-0.2 [facility] ([facility] Bilirubin,Total 0.6 mg/dL 0.2-1.0 [facility] ([facility] Albumin 3.4 GM/DL 3.2-5.2 [facility] ([facility] Total Protein 5.7 GM/DL 6.4-8.2 [facility] ([facility] Albumin/Globulin Ratio 1.5 1.2-2.2 [facility] ([facility] ID Date Data Source [id number] 10/10/2019 02:08:00 AM EDT [facility] (Nuzhat Langley [...] <content>Troponin I Reference Interval f or Siemens Tucker LOCI:</content>
<content></content>
<content>99th Percentile= 0.00-0.045 ng/ml</content>
<content></content>
<content>Risk Stratification:</content>
<content><= 0.10 ng/ml Decreased Risk for Adverse Clinical</content>
<content>Events.</content>
<content>0.10-1.50 ng/ml Increased Risk for Adverse Clinical</content>
<content>Events. Evaluation of additional</content>
<content>criterion and/or repeat testing in 2-6</content>
<content>hours is suggested to rule out myocardial</content>
<content>damage.</content>
<content>>= 1.50 ng/ml Indicative of Myocardial Injury.</content>
<content></content> ID Date Data Source [id number] 10/10/2019 02:08:00 AM EDT [facility] ([facility] Name Value Range Interpretation Code Description Data Luz rce(s) Supporting Document(s) Lactate [Mass/volume] in Serum or Plasma 2.0 mmol/L 0.4-2.0 [facility] ([facility] Y/N query for Sepsis Lactate Rule: Y ID Date Data Source [id number] 10/10/2019 02:08:00 AM EDT [facility] (Nuzhat Langley [...] % 24.0-44.0 [facility] ([facility] Sebastian % 5.9 % 0.0-5.0 [facility] (Nuzhat rivera [...] 10 0.0-0.5 [facility] ([facility] Sebastian # 0.5 10 0.0-0.8 [facility] ([facility] Baso # 0.0 10 0.0-0.2 [facility] ([facility] ID Date Data Source [id number] 09/06/2019 08:45:00 AM EDT [facility] ([facility]) Name Value Range Interpretation Code Description Data Luz rce(s) Supporting Document(s) PDFReport Laboratory test result [facility] ([facility], ) FVC-Pre 1.51 L [facility] ([facility]) FVC-Pred 2.49 L [facility] ([facility]) FVC-LLN 1.84 L [facility] ([facility]) FVC-%Pred-Pre 60 L [facility] ([facility], ) Fev1-Pred 1.86 L [facility] ([facility]) Fev1-%Pred-Pre 67 L [facility] ([facility]) Fev1-Pre 1.26 L [facility] ([facility]) Fev6-Pre 1.51 L [facility] ([facility]) Fev1-LLN 1.31 L [facility] ([facility]) Fev6-Pred 2.36 L [facility] ([facility]) Jpw8akz-Fna 83 % [facility] ([facility]) Vqz1ejt-Qemu 74 % [facility] ([facility]) Fev6-LLN 1.72 L [facility] ([facility]) Fev6-%Pred-Pre 64 L [facility] ([facility]) Pkm0wny-Auyc 95 % [facility] ([facility]) Wik7xjg-Zhi 100 % [facility] ([facility]) Nny7frn-KCZ 65 % [facility] ([facility]) Ieq9ffe-%Pred-Pre 111 % [facility] ([facility]) Lkp9jaj-%Pred-Pre 105 % [facility] ([facility]) FEFMax-Pre 1.95 L/E/sec [facility] ([facility]) FEFMax-Pred 4.77 L/E/sec [facility] ([facility]) FEFMax-%Pred-Pre 40 L/E/sec [facility] ([facility]) FEFMax-LLN 3.16 L/E/sec [facility] ([facility]) Onn2204-Qinv 1.45 L/E/sec [facility] ([facility]) Syg2270-Knj 1.39 L/E/sec [facility] ([facility]) Jwj4096-ITF 0.28 L/E/sec [facility] ([facility]) ExpTime-Pre 6.05 sec [facility] ([facility]) Qpn6960-%Pred-Pre 96 L/E/sec [facility] ([facility]) Uer5ilk6-Wjm 83 % [facility] ([facility]) Hqt3bcu4-ZEN 69 % [facility] ([facility]) Nkh6gvb8-%Pred-Pre 106 % [facility] ([facility]) Aeh6frp1-Oday 78 % [facility] ([facility]) ID Date Data Source [id number] 08/29/2019 11:39:00 AM EDT [facility] ([facility] Name Value Range Interpretation Code Description Data Luz rce(s) Supporting Document(s) HDL Cholesterol 50 mg/dL [facility] ([facility] Triglycerides Level 75 mg/dL [facility] ([facility] Cholesterol Level 121 mg/dL [facility] ([facility] LDL Cholesterol 56 mg/dL [facility] ([facility] Cholesterol Risk Ratio 2.420 [facility] ([facility] Non-HDL-C 71 mg/dL [facility] ([facility] ID Date Data Source [id number] 08/29/2019 11:39:00 AM EDT [facility] ([facility] Name Value Range Interpretation Code Description Data Luz rce(s) Supporting Document(s) Hemoglobin A1c 8.1 % [facility] ([facility] REFERENCE RANGES: 4.5-5.6% NORMAL 5.7-6.4% SUGGESTS IMPAIRED GLUCOSE META BOLISM >= 6.5% ABNORMAL Estimated Average Glucose 186 mg/dL 60-110 [facility] ([facility] ID Date Data Source [id number] 08/29/2019 11:39:00 AM EDT [facility] ([facility] Name Value Range Interpretation Code Description Data Luz rce(s) Supporting Document(s) Magnesium [Mass/volume] in Serum or Plasma 2.0 mg/dL 1.8-2.4 [facility] ([facility] ID Date Data Source [id number] 08/29/2019 11:39:00 AM EDT [facility] (Nuzhat Langley [...] Little GFR Left</content>
<content>ESRD GFR <15 on MANAGER GRAPHIC</content>
<content></content> Sodium Level 141 meq/L 136-145 [facility] [...] [facility] ID Date Data Source [id number] 08/23/2019 12:14:00 PM EDT [facility] (Nuzhat Langley [...] Little GFR Left</content>
<content>ESRD GFR <15 on MANAGER GRAPHIC</content>
<content></content> Creatinine For GFR 1.14 mg/dL 0.55-1.30 [...] [facility] ID Date Data Source [id number] 07/31/2019 05:43:00 AM EDT [facility] Name Value Range Interpretation Code Description Data Luz rce(s) Supporting Document(s) SARS coronavirus 2 RNA [Presence] in Uns pecified specimen by TEO with probe detection [facility] This lab was ordered by [facility] and reported by [facility] ID Date Data Source [id number] 07/27/2019 01:30:00 PM EDT [facility] ([facility] Name Value Range Interpretation Code Description Data Luz rce(s) Supporting Document(s) Vancomycin [Mass/volume] in Serum or Plasma --trough 11.9 UG/ML 10.0- 20.0 [facility] ([facility] C reactive protein [Mass/volume] in Serum or Plasma by High sensitivity method 1.74 mg/dL 0.00-0.30 [facility] ([facility] ID Date Data Source [id number] 07/27/2019 01:30:00 PM EDT [facility] (Nuzhat Langley [...] Little GFR Left</content>
<content>ESRD GFR <15 on MANAGER GRAPHIC</content>
<content></content> Sodium Level 140 meq/L 136-145 [facility] [...] [facility] ID Date Data Source [id number] 07/27/2019 01:30:00 PM EDT [facility] ([facility] Name Value Range Interpretation Code Description Data Luz rce(s) Supporting Document(s) Erythrocyte sedimentation rate by 2H Westergren method 23 mm/hr 0-3 0 [facility] ([facility] ID Date Data Source [id number] 07/27/2019 01:30:00 PM EDT [facility] (Nuzhat Langley [...] [facility] ID Date Data Source [id number] 07/20/2019 05:12:00 AM EDT [facility] ([facility] Name Value Range Interpretation Code Description Data Luz rce(s) Supporting Document(s) Erythrocyte sedimentation rate by 2H Westergren method 41 mm/hr 0-3 0 [facility] ([facility] ID Date Data Source [id number] 07/20/2019 05:12:00 AM EDT [facility] (Nuzhat Langley [...] % 36.0-66.0 [facility] ([facility] Sebastian % 6.1 % 0.0-5.0 [facility] (Nuzhat rivera [...] % 0-3.0 [facility] ([facility] Sebastian # 0.8 10 0.0-0.8 [facility] ([facility] Neutrophils # 10.5 10 1.5-8.5 [facility] ([facility] Lymph # 1.3 10 1.5-5.0 [facility] ([facility] Baso # 0.1 10 0.0-0.2 [facility] ([facility] Eos # 0.2 10 0.0-0.5 [facility] ([facility] ID Date Data Source [id number] 07/20/2019 05:12:00 AM EDT [facility] ([facility] Name Value Range Interpretation Code Description Data Luz e(s) Supporting Document(s) C reactive protein [Mass/volume] in Serum or Plasma by High sensitivity method 3.25 mg/dL 0.00-0.30 [facility] ([facility] ID Date Data Source [id number] 07/20/2019 05:12:00 AM EDT [facility] ([facility] Name Value Range Interpretation Code Description Data Luz [facility]) Supporting Document(s) Glucose, Fasting 142 mg/dL 70-100 [...] Little GFR Left</content>
<content>ESRD GFR <15 on MANAGER GRAPHIC</content>
<content></content> Blood Urea Nitrogen 18 mg/dL 7-18 [facility] ([facility] Creatinine For GFR 0.99 mg/dL 0.55-1.30 [facility] ([facility] Sodium Level 138 meq/L 136-145 [facility] ([facility] Potassium Serum 4.2 meq/L 3.5-5.1 [facility] ([facility] Chloride Level 103 meq/L 98-107 [facility] ([facility] Calcium Level 8.5 mg/dL 8.8-10.2 [facility] ([facility] Carbon Dioxide Level 33 meq/L 21-32 [facility] ([facility] Anion Gap 2 meq/L 8-16 [facility] ([facility] ID Date Data Source [id number] 07/12/2019 11:38:10 AM EDT [facility] Name Value Range Interpretation Code Description Data Luz rce(s) Supporting Document(s) &PDF [facility] THKKQl4oLxHGRaPz47/OFWqhBBWjw5UjOJulZVf0ZFfnKTKyG4JnuWcyKQZTDdZOHGQbLS7PH4XQNwIk yKE [file] AgICAgICAgICAgICAgICAgICAgICAgICAgICAgICAgICAgICAgICAgICAgICAgICAgICAgICAgICAgIC JoYFIuLYSlZCTgHWAvHWTtDIYiIEIdBPVlHWKgIIJmUKQcMBOwYE0WZELdZKYfSTEjSQMjPVVrUKNjDI AgICAgICAgICAgICAgICAgICAgICAgICAgICAgICAg LFLnIRTlKUSkGLGgGYSkOEBwDWQyUXIyWLGxDGWoFWHsNHCxEUAkRFDfDPHvHILjYY8BVXQoLXZeCKNf ICAgICAgICAgICAgICAgICAgICAgICAgICAgICAgICAgICAgICAgICAgICAgICAgICAgICAgICAgICAg ICAgICAgICAgICAgICAgICAgICAgICAgICAgICAgIA 0KICAgICAgICAgICAgICAgICAgICAgICAgICAgICAgICAgICAgICAgICAgICAgICAgICAgICAgICAgIC ItWTNaAOLlOLGhJZOeKPDiOGYmFTScVJTbSZYcSRGiXWBhBIIyTOMuRP9KZTErOIKlVANeAIKsHNJbLB AgICAgICAgICAgICAgICAgICAgICAgICAgICAgICAg KANbCYVwMJPoAPOuZNFcLUYdMYIcMAXiRMWkNZRfVRWuQHSbEZJsKYLzQABgGOYtXKZnDN2LPIYwHJXy ICAgICAgICAgICAgICAgICAgICAgICAgICAgICAgICAgICAgICAgICAgICAgICAgICAgICAgICAgICAg ICAgICAgICAgICAgICAgICAgICAgICAgICAgICAgIC SoJJ6HCHEfVFBgVUUfWBIvMJHyIYShFHAyMEZpAGTbMFQuPNOhHCSxSOIeFWUxWJQkZXHzTOFeQUUfUY TwVOCxQIOsYKTgHJBuSRTwIUFyWLMrBSTbVKTvEQVxBTJcQAKtWEFpEWLbFB8QKIAmWZVpWYYfHPSpVS AgICAgICAgICAgICAgICAgICAgICAgICAgICAgICAg XZWeXDByTTUqIIAfLBSbGDAvPDPsUVBwFGGwROKjKNTqLFOwIETmTQGoTNRxNFNaPKAmGCSkBC5JAVKc ICAgICAgICAgICAgICAgICAgICAgICAgICAgICAgICAgICAgICAgICAgICAgICAgICAgICAgICAgICAg ICAgICAgICAgICAgICAgICAgICAgICAgICAgICAgIC ZnUHJjBZ5CZMRuGFMlXYHdHRViGSPgITOfYRKeWAMzXOEfYAOnZWMyICBoTWFtSTDaCSScMQRrCQFlOM CbBDZnKVRmFOHjKQIqTLOzGTUvWCUkBFDpMKMvTZEbNPLeAICvSISpVQUdMUHuFB8LVV31tHSpw7H2BX VfCE3ytmp/Ki9KHCupgjBroWImIZ7CJuImAQ4xsx0M HwUlFR5ism2ODFiEEqZhI3E5pGLzDSQuDVBBDaKiI27eMYsiYm61MYojGVHmMsNrDCn0Do6JUaWfQ0zp WTFjEyL5ALBjHxH5FVPrRtNlSNyeLJ2Fs6JoeEVeHWh+As4ZQN1mp7KrSBraAiIhUM3ouy0YXBbCOaEm T4O1nYMaA0G6TLiyNx7OSMYxBUIiNlEjGTDSSWbdBC 0PDW8qgcY2DH7DnEJhJWNdSGJjsEOvOMz1A31hfUAeWPzrJE7RNKX+John+Ij3AFATwYFZtDTKtApGpMB UNCfSnQ61urOGzZIOlLYS6KSNcWl9WMHRqM6SfwsUryRubbsKdGQYvSGRRAX7KVDskjnIzjLKmzGgzFX 66jKbeZS8LWi4BWgRzKA0oan1GcFYoTy5POPXiKo4T TMMaTURtEWRxJKS8FWFaUnWkWRynNLXkLADvVKQ3AHRlQWOhVT8LXfDwISOpQxB8KktlYOWhOCQyip2P JJRhAOHiDMK7JuGcUOWlVMKkJDplVANoGYJuCZckSKEuNRPnPP1DZkLkYSIlRNM2CmZeCMXlXPJlym1R FUNsTAPbMbZzAZJmURPyJDTzSXqzKTVjGST7PUciGX CeSWSzPE8TRgMmODQqZVPtERooNCOlAMVbxu8ZUPVjOQRlCWN4GzInONPwRWPrMQovLVOiPIO4ZTDbXT YyIMVaJH2IPhYvLRXgGHE8CnOhYASfFQNmrj6UNHTqMCOdOcD4LwAlPNVqIQHbZAwaYNRkXTE9Gkv1JY JhHMEvOH3AFnGjBLQnZJX3NNJnLFCwIBUrli4GNJLd FDFbKEsnJSHcIIJkLMUlQZoxGKUvUVYxNGP7KKLtWZJiIC0BKrBxJMGdCTIrKzzqAGRsYMQdrw2DJZJp SJOeQsQnSfLtRCCwUALeDTakPFRvEZIlJfC4LQYxORCyFR8ALgWmJQQqLYU9BBTkHAJvPCPtqy8EJBTt TYZwItl0DXEwLORaQYUyDVfyHYCoZMY7OII3SUUdSV EuFW5NKoHzAMXoQVi8WvvtZDUwTAJcwn2GYOErFMQxHeo6DnNeHCRnISQrORunDOGwJBCmJfBeBIWmQK JePH7SHmWfVYZrZgQ1SGllWBYpCZDjuk2HwAEdfWycbb4MHNxDRh7UgBtpMZC4KCohHc7ltRUrAsJeJT OFGx8FbnAtUDGzYPLARFjsJWDoMQmzPQBeOXO3IFM4 MYVpXLUaKixeGPGaBtDdMDOxETYoQhM1QRIgD1SaNNuwKpC0BRN7WZUxX5Q4EFPoFtY3NqLdXkJ+IF0g DQo+Pq9Lb8UwzfY5mwJoEYriAYeiTS9NVZGTU5VXQv== ID Date Data Source [id number] 07/06/2019 03:31:00 PM EDT [facility] ([facility]hat Langley [...] ([facility] ID Date Data Source [id number] 07/06/2019 03:31:00 PM EDT [facility] (Nuzhat Langley [...] Little GFR Left</content>
<content>ESRD GFR <15 on MANAGER GRAPHIC</content>
<content></content> Blood Urea Nitrogen 17 mg/dL 7-18 [...] [facility] ID Date Data Source [id number] 07/06/2019 03:31:00 PM EDT [facility] (Nuzhat Langley [...] [facility] ID Date Data Source [id number] 07/06/2019 03:31:00 PM EDT [facility] ([facility] Name Value Range Interpretation Code Description Data Luz rce(s) Supporting Document(s) Erythrocyte sedimentation rate by 2H Westergren method 23 mm/hr 0-3 0 [facility] ([facility] ID Date Data Source [id number] 07/06/2019 03:31:00 PM EDT [facility] (Nuzhat Langley [...] pg 27.0-33.0 [facility] Sebastian % 6.1 % 0.0-5.0 [facility] Neutrophils % 81.7 % 36.0-66.0 [facility] Platelet Count, Automated 151 10 150-450 [facility] Lymph % 9.8 % 24.0-44.0 [...] 10 0.0-0.2 [facility] Sebastian # 0.8 10 0.0-0.8 [facility] ID Date Data Source [id number] 07/06/2019 03:31:00 PM EDT [facility] ([facility] Name Value Range Interpretation Code Description Data Luz rce(s) Supporting Document(s) aPTT in Platelet poor plasma by Coagulation assay 33.2 s 25.0-38. 4 [facility] ID Date Data Source [id number] 07/06/2019 03:31:00 PM EDT [facility] ([facility] Langley [...] MYOCARDIAL INFARCTION 2.5-3.5 ID Date Data Source [id number] 07/04/2019 01:39:00 AM EDT [facility] ([facility] [...] [facility] ID Date Data Source [id number] 07/04/2019 01:37:00 AM EDT [facility] ([facility] L[facility]y [...] AFTER 5 DAYS ID Date Data Source [id number] 07/04/2019 01:22:00 AM EDT [facility] ([facility] Langley [...] AFTER 5 DAYS ID Date Data Source [id number] 07/04/2019 01:22:00 AM EDT [facility] ([facility] Name Value Range Interpretation Code Description Data Luz rce(s) Supporting Document(s) C reactive protein [Mass/volume] in Serum or Plasma by High sensitivity method 0.65 mg/dL 0.00-0.30 [facility] ([facility] ID Date Data Source [id number] 07/04/2019 01:22:00 AM EDT [facility] ([facility]angle[facility] [...] Little GFR Left</content>
<content>ESRD GFR <15 on MANAGER GRAPHIC</content>
<content></content> Potassium Serum 3.9 meq/L 3.5-5.1 [facility] Sodium Level 142 meq/L 136-145 [facility] Chloride Level 106 meq/L 98-107 [facility] Calcium Level 8.7 mg/dL 8.8-10.2 [facility] Anion Gap 5 meq/L 8-16 [facility] Carbon Dioxide Level 31 meq/L 21-32 [facility] ([facility] ID Date Data Source [id number] 07/04/2019 01:22:00 AM EDT [facility] ([facility] Name Value Range Interpretation Code Description Data Luz rce(s) Supporting Document(s) Erythrocyte sedimentation rate by 2H Westergren method 6 mm/hr 0-3 0 [facility] Lactate [Mass/volume] in Serum or Plasma 1.2 mmol/L 0.4-2.0 [facility] Y/N query for Sepsis Lactate Rule: Y ID Date Data Source [id number] 07/04/2019 01:22:00 AM EDT [facility] ([facility] Langley [...] % 0.0-3.0 [facility] Sebastian % 5.8 % 0.0-5.0 [facility] Baso % 0.2 % 0.0-1.0 [facility] Immature Granulocyte % 1.5 % 0-3.0 [facility] Neutrophils # 9.2 10 1.5-8.5 [facility] Nucleated Red Blood Cell % 0.0 % 0-0 [facility] Sebastian # 0.7 10 0.0-0.8 [facility] Baso # 0.0 10 0.0-0.2 [facility] Lymph # 1.8 10 1.5-5.0 [facility] Eos # 0.1 10 0.0-0.5 [facility] ID Date Data Source [id number] 06/20/2019 10:17:21 PM EDT [facility] Name Value Range Interpretation Code Description Data Luz rce(s) Supporting Document(s) &PDF [facility] EFLNZp2qDkAZWnQc37/GCTtxQBJhl1CoWRhzBAx3RXnwFCNmV5OhhJwfFKPSYeGLLPXkWL3QA4TUOfQs oRX [file] ++Tx/FV7ns/9vW/Wa3ICVXcxXL9UZ+6g6RYNLI8U5RaptLME3YXh8cUIZhX9Cyves/zLKcclauu JqYLjkR28sC7OnEjT685sKD208lAwgoKpvbavRox0ERR2WP48sxyhI0oM5p3oKgkUgAf14lt+rvp0ofz DTvXM0sMCJu2eiFZNdT1td7pwvMQUYg5m2oCvyrvky Azr8Er8ooVGG1qXXitNEwdNBOZQ49joA5EwK+mqRoqYyV0/IindtIsezw+ADZsCTd9W5DaXSy2z734HD krHGFPCNCNP5nhDJhLNLAnGCvquIcVWX06M53fbz3ofSD4p8awnCd/qLGLi3Xv+xgZx35yY2R2DEBf4D klWaxxypAQrxVOr6Q1f2GEyKWGgND4q90+X+9gEN2y 4jrh1fHq7ulfuWGmLv0/bv++BkZyV1qwWVUyKkNeqsqMs5DTDhW5WM9JKEwGFjNUcFflsPEdf4ZPovSH 7X0tn3+xaKgZxxG7h50Ia+qJqaSUvH12XGG1u79tPmJfmaoTB27fnLY2GEYa//M1BlA1EmuNeIq/4t94 StaP/bktTwrnkOzTysfV1U627rhKIAngSH0H33bc4o 3TADTI3qNRXHklC1Vjju+Xt5JnhbdYTupwb0Uis8dMXy/K68aGOQPBYV2SkhDTBLny56B/NQRjl4yuw7 GDOM6Gtf//rT3kYFDyg+a2HT964mp5KzASOqURZm6ourMnlxt1tz+c++Orby8w1XCc7UdJKvwdgd4hI3 yzsi7r/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 [file] 2FWTEqIB8e8Lzsk8stB+EDwmn/8/VICTOR HUGO/A/PoD6MJLnErSLY5mhBywX5NGM8vb6ThISlhXVFzDK7xto7H [file] ICAgICAgICAgICAgICAgICAgICAgICAgICAgICAgICAgICAgICAgICAgICAgICAgICAgICAgICAgICAg WYCsNKKqEGRsAA8TAXHlDSGgOAXdBGJgJLQsPUEjMT AgICAgICAgICAgICAgICAgICAgICAgICAgICAgICAgICAgICAgICAgICAgICAgICAgICAgICAgICAgIC AgZJHsMNJvJEVcFWKrAXRsILXfXY9VWXLtRJBpSBVsWTVnBCXeWFXeBMLtINMyLOPcGCIiMUWmEGYySP AgICAgICAgICAgICAgICAgICAgICAgICAgICAgICAg IJIkIVYtNUMrEHDzJEOaNADyYWToSVHdRUBgCIZiQZ4MXFJbXEVsRJGtMOZaXFLkROBwALYfLPNoCIZt ICAgICAgICAgICAgICAgICAgICAgICAgICAgICAgICAgICAgICAgICAgICAgICAgICAgICAgICAgICAg VDLxJVXtIJApTGWxMB2ZSGSwSFFlNDUrZRUdMXPfVK AgICAgICAgICAgICAgICAgICAgICAgICAgICAgICAgICAgICAgICAgICAgICAgICAgICAgICAgICAgIC NfONLqXHNpLRKzAJMkHKRcAMYtZCKfFE5YVVZeQRTjSPLjQOYfHFHyBLPhFTTlITHuFKFpBKFwDTHzWZ AgICAgICAgICAgICAgICAgICAgICAgICAgICAgICAg MIUtUEAdEVEwQOShYNBpCVUhDGIdRGDzGLOhZSCvJVAkMV3TSVXmHRXkQDNaLXBuLJYbICFiQNEhVJNl ICAgICAgICAgICAgICAgICAgICAgICAgICAgICAgICAgICAgICAgICAgICAgICAgICAgICAgICAgICAg KJWrOGZhVQQbXBObFLJxBG2VAEAbNZVgYBHwYEHdLV AgICAgICAgICAgICAgICAgICAgICAgICAgICAgICAgICAgICAgICAgICAgICAgICAgICAgICAgICAgIC UvHHGtLJRhQZXtNYIcGHUgHXZeASIiHXJoJM7PCVLoDIWmETBrJLVtIQOcPJFbERGxZHRhBFGeHTLlUQ AgICAgICAgICAgICAgICAgICAgICAgICAgICAgICAg RILnPJJhSNGnVXRrPWClNCFgRZOlXDIlQRDdHWHxFTBiMUHoYE5EUUWnDKMmSEFbGXJtHAWaHAQnJQXd ICAgICAgICAgICAgICAgICAgICAgICAgICAgICAgICAgICAgICAgICAgICAgICAgICAgICAgICAgICAg AEEdMPMxAEBnZULmNQFtFAYkVP4JZW62tILig3J3GT MoDD3rogj/Ua2WNTdyjaAvqTZsOO6IJdVwAO4bhx4RJkNhFZ2gdz9GPDoAHcFlY4G6cXYcCFJhETHSNa IgJ01vWTdiXa47QVsgJRXePmFcQAt6Au9OFcPmK7beNTVrXsE6ZNLkVvM5AHHqZzXpUTbnCC0Ix0VxyP AyDQo+Vp6YMX1pw5XyVCgmUgLxKB6eam0WZRvUTpCf M1H3tITsR8N0PUsxNp0KIZDrNNBcDgSuNWKWJVmmDQ9FLS3npdW6JO9JbUFmYSAfTRCpaFQwOEn2N40w yIWpQVkwDC6MMED+John+Li2GJRShAGLsSEThDkHaDXLOZmWrR32vdEZpDWOlZEZxAXUtDi4TYUZdC9Kt bwGfgHekeeQzSQEiDWIXGQ2IKYuttnTclWVewNqyNE 74zCzuNA7VIh7FRdHpHY5ugb4FvDJfSu0URHPzUC2BCYCsCUOfAFScUTA3SCFhHjTiVLgpWIYyTJZqEH L2GHDaIELpNI3QSjYzRMGzKWrjIlUsEIFxABCbba1CTSFwPJQ7WUt7IQMqFVWdBVQoAFgiSVIqRAEqJO dkYGFfBQXoTP0OWxXsQSHvYVX3DRQwOSTzBSLzlb9F FMYzRKNlFxEdIsShXKIyJXZmJUrwIQRcBSB9EUKbWLXnHNFlVE9JXpZcLQJmXSFnMtNgGCCfFZKsfj2L VRMqKXCxWkK0RTFdIDCoEMTgPTyyOYWyVXQ6XHdpNIPzSCSlOO5BCqQjNCFbSPg5QyLjEYGmRVTrpj6U MDDcZDEzDXMnESTqYOXfFCKcNPluSTQtUUP7LJDrXH MhIUGpZE0SNlLjFTOzWPtsOzTdVNPiMJCtrs7RUGLxHPVuGhf0KbJmXLOhCWKzCEyrCNGzFEI9XYo6SD OiRTEdHW8CFjErKITmAML8VQCzYZCeUBCtlu7SDJGrZVCuAMA6TvDkUQOsQGSlXFlcYKIuQYX5FpwiID PiTUVdBN0SJrUoJIDaSIJ7EtMzUZRjEYQmef8NXYEh EGIuQZgqPHOyZZGaJKQbSUteILMqLTF0DYsaPJKwUQUqDJ2AWiXnFKKhLzH7KauwVRNcOBGbmm5ITMCa LKXtRZf2GLEaLOZrKPNnGYbxNJCrJGU3FKKvQVOgAETcLL8LNoJhIDHeYONlHPslLAFwNODpvn4NGHHj JJP1QYX9ScYsLMRpGYGgJMiySTUzNFDlJCO9MSBoIW ByYP7XDwJyXEIxKuZxSOEqCLAdMMSwqn2BIPOwUSA6USs9XkReIOKiWONmXDgiXEDcTXa0EZC6YBOlBP NaAI0GLuGwIPTrHPg6HjEsCOLuEKXfjq3YSVGvIYP3IRS5IGGsWOXxKZZnPAj2rdMgnUFlOLh2PL9LU0 AtonBfPaDFDx5Hs251QFIjFIIhPa3VF8plPy0xSHQq TNVUHn1SXUs3DGWhWGEzVTVjEFl5HmSzEpQ5UPK4I9D6Lsn1PwUrLSB+IAobXaUkSvIeKJT6EjypYLH5 OgA5KYW6BuGgJTD5DeEnUN5iUCXTGc1+JWdlhAGqbHosGZEPDqu6ImQoLVbrZFVQZi9K ID Date Data Source [id number] 05/16/2019 07:23:00 PM EDT [facility] ([facility] [...] [facility] ID Date Data Source [id number] 05/16/2019 06:59:00 PM EDT [facility] ([facility] L[facility] [...] FOR ESBL</content>
<content></content> ID Date Data Source [id number] 05/16/2019 06:59:00 PM EDT [facility] ([facility] L[facility] [...] result [facility] ([facility] Specific [place] Auto RFX 1.004 1.002-1.035 [facility] ([facility] [...] [facility] ID Date Data Source [id number] 05/16/2019 06:47:00 PM EDT [facility] ([facility] Name Value Range Interpretation Code Description Data Luz rce(s) Supporting Document(s) Natriuretic peptide.B prohormone N-Terminal [Mass/volu me] in Serum or Plasma 368 pg/mL [facility] ([facility] ID Date Data Source [id number] 05/16/2019 06:47:00 PM EDT [facility] ([facility] Name Value Range Interpretation Code Description Data Luz rce(s) Supporting Document(s) CPK Creatine Phosphokinase 39 U/L 26-192 [facility] ([facility] CK-MB Value Mass 1.3 ng/mL [facility] ([facility] Troponin I Laboratory test result [facility] ([facility] <content>Troponin I Reference Interval f or Siemens Tucker LOCI:</content>
<content></content>
<content>99th Percentile= 0.00-0.045 ng/ml</content>
<content></content>
[...] > 4</content>
<content></content> ID Date Data Source [id number] 05/16/2019 06:47:00 PM EDT [facility] ([facility] Langley [...] % 24.0-44.0 [facility] ([facility] [place] % 3.4 % 0.0-5.0 [facility] ([facility] [...] 10 0.0-0.5 [facility] ([facility] [place] # 0.4 10 0.0-0.8 [facility] ([facility] [...] intake 01/19/2020 12:00:00 AM EST No completed [facility] Cigarette pack-years 01/19/2020 12:00:00 AM EST UNK completed [facility] Cigarettes smoked current (pack per day) - Reported 01/19/20 12:00:00 AM EST UNK completed [facility] Smoking 01/19/2020 12:00:00 AM EST Former smoker completed Former smoker [facility] Smoking 09/06/2019 12:00:00 AM EDT Patient is a former smoker completed Patient is a former smoker [facility] ([facility] ) Vital Signs ID Date Data Source UNK Name Value Range Interpretation Code Description Data Source(s) Body mass index (BMI) [Ratio] 38.7 kg/m2 38.7 k g/m2 [facility] ([facility] [place] body weight 105 [lb_av] 105 [lb_av] [facility] [...] by Pulse oximetry 98 % 98 % [facility] Body mass index (BMI) [Ratio] 45.91 kg/m2 45.91 kg/m2 [facility] Body weight 113.853 kg 113.853 kg [facility] Body height 157.5 cm 157.5 cm [facility] Heart rate 93 /min 93 /min [facility] Diastolic blood pressure 60 mm[Hg] 60 mm[Hg] [facility] Systolic blood pressure 132 mm[Hg] 132 mm[Hg] [facility] Body mass index (BMI) [Ratio] 46.9 kg/m2 46.9 k g/m2 [facility] ([facility] [place] body weight 105 [lb_av] 105 [lb_av] [facility] [...] k g/m2 [facility] ([facility] [place] body weight 105 [lb_av] 105 [lb_av] [facility] [...] k g/m2 [facility] ([facility] [place] body weight 105 [lb_av] 105 [lb_av] [facility] [...] k g/m2 [facility] ([facility] [place] body weight 105 [lb_av] 105 [lb_av] [facility] [...] k g/m2 [facility] ([facility] [place] body weight 105 [lb_av] 105 [lb_av] [facility] [...] k g/m2 [facility] ([facility] [place] body weight 105 [lb_av] 105 [lb_av] [facility] [...] Body weight 120.658 kg 120.658 kg [facility] ([facility]) Body mass index (BMI) [Ratio] 48.6 kg/m2 48.6 k g/m2 [facility] ([facility]) Body weight 266.00 [lb_av] 266.00 [lb_av] [facility] ([facility]) Body height 62 [in_i] 62 [in_i] [facility] 5'2" Body temperature 97.1 [degF] 97.1 [degF] [facility] ([facility]) Oxygen saturation in Arterial blood by Pulse oximetry 94 % 94 % [facility] ([facility]) Heart rate 94 /min 94 /min [facility] ([facility]) Diastolic blood pressure 78 mm[Hg] 78 mm[Hg] [facility] ([facility]) Systolic blood pressure 122 mm[Hg] 122 mm[Hg] [facility] Body weight 117.936 kg 117.936 kg [facility] ([facility]) Body mass index (BMI) [Ratio] 47.5 kg/m2 47.5 k g/m2 [facility] ([facility]) Body weight 260.00 [lb_av] 260.00 [lb_av] [facility] Body height 62 [in_i] 62 [in_i] [facility] 5'2" Body temperature 97.6 [degF] 97.6 [degF] [facility] ([facility]) Oxygen saturation in Arterial blood by [...] Body weight 116.122 kg 116.122 kg [facility] ([facility]) Body mass index (BMI) [Ratio] 50.0 kg/m2 50.0 k g/m2 [facility] ([facility]) Body weight 256.00 [lb_av] 256.00 [lb_av] [facility] ([facility]) Body height 60 [in_i] 60 [in_i] [facility] ([facility]) 5'0" Body temperature 98.4 [degF] 98.4 [degF] [facility] Oxygen saturation in Arterial blood by Pulse oximetry 95 % 95 % [facility] ([facility]) Room Air Heart rate 94 /min 94 /min [facility] ([facility]) Diastolic blood pressure 84 mm[Hg] 84 mm[Hg] [facility] Systolic blood pressure 132 mm[Hg] 132 mm[Hg] [facility] Body mass index (BMI) [Ratio] 47.0 kg/m2 47.0 k g/m2 [facility] ([facility]) Body weight 249.00 [lb_av] 249.00 [lb_av] [facility] ([facility]) Body height 61 [in_i] 61 [in_i] [facility] ([facility]) 5'1" Body temperature 98.3 [degF] 98.3 [degF] [facility] ([facility]) Body mass index (BMI) [Ratio] 48.0 [...] 26 /min 26 /min [facility] ( [facility] Body temperature 97.5 [degF] 97.5 [...] 20 MG Oral Tablet 01/12/2020 12:00:00 AM [facility] Metformin hydrochloride 500 MG Oral Tablet 01/11/2020 12:00:00 AM [facility] Bacitracin 0.5 UNT/MG / Neomycin 0.0035 MG/MG / Polymyxin B 10 UNT/MG Topical Ointment 12/27/2019 12:00:00 AM EST [facility] Albuterol 0.833 MG/ML / Ipratropium [place] 0.167 MG/M L Inhalant Solution 12/27/2019 12:00:00 AM EST [facility] Fluconazole 100 MG Oral Tablet 12/08/2019 12:00:00 AM EDT [facility] potassium chloride SA (K-DUR,KLOR-CON) 20 MEQ tablet 12:00:00 AM EDT [facility] Metolazone 2.5 MG Oral Tablet 06/25/2019 12:00:00 AM EDT [facility] Potassium Chloride 20 MEQ Extended Release Oral Tablet 06/25/2019 12:00:00 AM EDT [facility] Prednisone 5 MG Oral Tablet 06/25/2019 12:00:00 AM EDT [facility] rivaroxaban 20 MG Oral Tablet 06/25/2019 12:00:00 AM EDT [facility] Furosemide 40 MG Oral Tablet 06/11/2019 12:00:00 AM EDT [facility] tizanidine 4 MG Oral Tablet [facility] 60 ACTUAT Fluticasone propionate 0.5 MG/ ACTUAT / salmeterol 0.05 MG/ACTUAT Dry Powder Inhaler [facility]
[2020-03-07] MEDS ORDERED: FUROSEMIDE 40MG/4ML VIAL (J1940) IV ONE (22:00)
[2020-03-07 22:02] LABS: BASO % 0.3 % (0.0-1.0); EOS # 0.2 10^3/uL (0.0-0.5); EOS % 1.8 % (0.0-3.0); HEMATOCRIT 32.5 % (36.0-47.0); HEMOGLOBIN 10.1 g/dl (12.0-15.5); LYMPH % 9.7 % (24.0-44.0); MEAN CORPUSCULAR HEMOGLOBIN 28.5 pg (27.0-33.0); MEAN CORPUSCULAR HGB CONC 31.1 g/dl (32.0-36.5); MEAN CORPUSCULAR VOLUME 91.5 fl (80.0-96.0); MONO # 0.6 10^3/uL (0.0-0.8); NEUTROPHILS # 8.4 10^3/uL (1.5-8.5); NEUTROPHILS % 81.8 % (36.0-66.0); PLATELET COUNT, AUTOMATED 152 10^3/uL (150-450); RED BLOOD COUNT 3.55 10^6/uL (4.00-5.40); WHITE BLOOD COUNT 10.3 10^3/uL (4.0-10.0)
[2020-03-07 22:28] LABS: ALBUMIN 3.2 GM/DL (3.2-5.2); ALT/SGPT 10 U/L (12-78); BILIRUBIN,DIRECT 0.3 MG/DL (0.0-0.2); BILIRUBIN,TOTAL 0.9 MG/DL (0.2-1.0); BLOOD UREA NITROGEN 20 MG/DL (7-18); CALCIUM LEVEL 9.1 MG/DL (8.8-10.2); CARBON DIOXIDE LEVEL 39 MEQ/L (21-32); CHLORIDE LEVEL 97 MEQ/L (98-107); CK-MB VALUE MASS < 1.0 NG/ML (<3.6); CPK CREATINE PHOSPHOKINASE 25 U/L (26-192); GLOMERULAR FILTRATION RATE 42.2 (>39); GLUCOSE, FASTING 124 MG/DL (70-100); NT-PRO BNP 325 PG/ML (<450); POTASSIUM SERUM 3.2 MEQ/L (3.5-5.1); SODIUM LEVEL 138 MEQ/L (136-145); TOTAL PROTEIN 5.5 GM/DL (6.4-8.2); TROPONIN I < 0.02 NG/ML (< 0.10)
--- NOTE | 2020-03-07 22:48 | REPVR ---
PROCEDURE INFORMATION: Exam: XR Chest, 1 View Exam date and time: 03/07/2020 10:09 PM Age: 79 years old Clinical indication: Cough and dyspnea; Additional info: Dyspnea/cough TECHNIQUE: Imaging protocol: XR of the chest Views: 1 view. COMPARISON: CR PORTABLE CHEST X-RAY 01/23/2020 11:18 PM FINDINGS: Tubes, catheters and devices: A pacemaker from the left is again noted. Lungs: There are no interval infiltrates. Pleural space: Unremarkable. No pleural effusion. No pneumothorax. Heart/Mediastinum: The heart and mediastinum are unchanged. Bones/joints: There is deformity of the right humeral neck consistent with old fracture which is unchanged. Soft tissues: There are generous overlying soft tissues. IMPRESSION: Essentially stable chest since 01/23/2020. No acute interval process is identified. Electronically signed by: Ashish Oneal On 03/07/2020 22:47:41 PM
[2020-03-07 23:49] LABS: ABG BASE EXCESS 9.7 (-2.0-2.0); ABG HCO3 34.1 MEQ/L (22.0-26.0); ABG O2 SATURATION 97.2 % (95.0-99.0); ABG PARTIAL PRESSURE CO2 45.7 mmHg (35.0-45.0); ABG PARTIAL PRESSURE O2 92.4 mmHg (75.0-100.0); ABG STANDARD HCO3 33.4 MEQ/L (22.0-26.0); ABG TOTAL CO2 35.5 MEQ/L (23.0-31.0); ABG pH (ARTERIAL) 7.491 UNITS (7.350-7.450)
[2020-03-08 03:16] VITALS: BP 122/61
--- NOTE | 2020-03-08 20:36 | ECGEPIP ---
[facility] - ED Test Date: 2020-03-07 Pat Name: MYAH DEAL Department: Room: - Gender: Female Script Supervisor: : [id number] Requested By: TATI Oliva Order Number: [id number] Reading MD: Doug Julien Measurements Intervals [place] Rate: 69 P: 163 VA: 186 QRS: 4 QRSD: 122 T: 30 QT: 420 QTc: 452 Interpretive Statements ELECTRONIC ATRIAL PACEMAKER MODERATE INTRAVENTRICULAR CONDUCTION DELAY NONSPECIFIC T-WAVE ABNORMALITY SIMILAR TO 01/31/20 Electronically Signed on 03-08-2020 20:36:04 EST by Doug Julien
== END 2020-03-08 03:18 | disposition home or self-care (01) ==
LOC: M ED 19:36
DX: I11.0 Hypertensive heart disease with heart failure (principal); R22.43 Localized swelling, mass and lump, lower limb, bilateral; I48.91 Unspecified atrial fibrillation; I25.10 Atherosclerotic heart disease of native coronary artery without angina pectoris; J44.9 Chronic obstructive pulmonary disease, unspecified; Z95.0 Presence of cardiac pacemaker; Z88.0 Allergy status to penicillin; Z88.1 Allergy status to other antibiotic agents; Z88.2 Allergy status to sulfonamides; Z79.01 Long term (current) use of anticoagulants; Z79.899 Other long term (current) drug therapy
CPT/HCPCS: 36415; 36600; 71045; 80048; 80076; 82550; 82553; 82803; 83605; 83880; 84484; 85025; 87486; 87581; 87633; 87798; 93005; 93041; 94760; 96374; 99285; J1940

== ENCOUNTER → 2020-03-17 | Outpatient (REF) | payer MEDICARE, OTHER ==
[~2020-03-17] MED LIST changes: -ISOS1TAB35 PO; -ISOS1TAB36 PO; +ISOS30TA4 PO; +ISOS60TA2 PO; +LISI-542 PO; -LISI-898 PO
[2020-03-17 17:46] LABS: PERCENT SATURATION 13.1 % (13.2-45.0)
== END ==
LOC: M LAB REF 16:54
PROVIDERS: ATTEND Internal Medicine Nephrology
DX: D50.9 Iron deficiency anemia, unspecified (principal); I50.42 Chronic combined sys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

== ENCOUNTER 2020-04-06 15:33 | Emergency (ER) | payer MEDICARE, OTHER ==
[~2020-04-06] VITALS: Ht 157.5 cm; Wt 111.4 kg
[~2020-04-06 15:33] MED LIST changes: +ISOS1TAB35 PO; +ISOS1TAB36 PO; -ISOS30TA4 PO; -ISOS60TA2 PO; -LISI-542 PO; +LISI-898 PO
--- OUTSIDE RECORDS SUMMARY | 2020-04-06 15:40 | CCD | Continuity of Care Document ---
Author Author Sana BRANTLEY PA-C Organization Unknown Address [address] [place] [address] Phone [phone] Care Team Providers Care Splitting Machine Tender Name Role Phone Doug Julien MD [facility] Unavailable Nuzhat Langley MD [facility] [phone] Problems Description No Active Problems Social History Type Date Description Comments Sex Unknown ETOH Use Denies alcohol use Tobacco Use Start: Unknown End: Unknown Patient is a former smoker quit 7 years ago Allergies, Adverse Reactions, Alerts Active Allergies Reaction Severity Comments Date Codeine 10/07/2014 Demerol 10/07/2014 Penicillin 10/07/2014 Medications Active Medications SIG Qnty Indications Ordering Provide r Date Zanaflex 4mg Tablets 1 by mouth three times a day 90tabs M70.62 Susana Burroughs MD 0 Potassium Chloride 2 0Meq/15ML (10%) Liquid Unknown Furosemide 40mg/4ML Solution Unknown Prednisone 5mg Tablets Unknown Tramadol HCL 50mg Tablets 1 every 4-6 hours as needed pain Unknown Bupropion HCL ER (SR) 150mg Tablets ER 12HR 1 by mouth every am x 1 week then 2 by mouth am Unknown Xarelto 20mg Tablets Unknown Diltiazem HCL 60mg Tablets Unknown Celexa 40mg Tablets 1 by mouth every day Unknown Immunizations Description No Information Available Vital Signs Date Vital Result Comment 05/21/2019 2:46pm Body Temperature 98.3 F Height 61 inches 5'1" Weight 249.00 lb BMI (Body Mass Index) 47.0 kg/m2 10/07/2014 1:05pm Body Temperature 97.8 F Height 62 inches 5'2" Weight 265.38 lb BMI (Body Mass Index) 48.5 kg/m2 Results Description No Information Available Procedures Date Code Description Status 03/27/2020 Inject/Drain Joint/Bursa Major C ompleted Medical Devices Description No Information Available Encounters Type Date Location Provider Dx Diagnosis Office Visit 03/27/2020 1:00p Guido Brantley PA-C M1 7.12 Unilateral primary osteoarthritis, left knee Office Visit 03/22/2020 1:45p Guido Brantley PA-C M1 7.12 Unilateral primary osteoarthritis, left knee M25.562 Pain in left knee Assessments Date Code Description Provider 03/27/2020 M17.12 Unilateral primary osteoarthriti s, left knee Jeffy Brantley PA-C 03/22/2020 M17.12 Unilateral primary osteoarthriti s, left knee Jeffy Brantley PA-C 03/22/2020 M25.562 Pain in left knee Jeffy irvin PA-C Plan of Treatment 03/27/2020 - Jeffy Brantley PA-C* M17.12 Unilateral primary osteoarthritis, left knee* Follow up:* prn. Functional Status Description No Information Available Mental Status Description No Information Available Referrals Description No Information Available
--- OUTSIDE RECORDS SUMMARY | 2020-04-06 15:40 | CCD | Continuity of Care Document ---
Author Author Sana BRANTLEY PA-C Organization Unknown Address [address] [place] [id number] Phone [phone] Care Team Providers Care Shipping Order Clerk Name Role Phone Doug Julien MD [facility] Unavailable Nuzhat Langley MD [facility] [phone] Problems Description No Active Problems Social History [...] kg/m2 Results Description No Information Available Procedures Description No Information Available Medical Devices Description No Information Available Encounters Type Date Location Provider Dx Diagnosis Office Visit 03/22/2020 1:45p [place] Jeffy Brantley PA-C M1 7.12 Unilateral primary osteoarthritis, left knee M25.562 Pain in left knee Assessments Date Code Description Provider 03/22/2020 M17.12 Unilateral primary osteoarthriti s, left knee Jeffy Brantley PA-C 03/22/2020 M25.562 Pain in left knee Jeffy irvin PA-C Plan of Treatment Future Appointment(s):* 03/27/2020 1:00 pm - Jeffy Brantley PA-C at [place] 03/22/2020 - Jeffy Brantley PA-C* M17.12 Unilateral primary osteoarthritis, left knee* Follow up:* f/u prn * M25.562 Pain in left knee Functional Status Description No Information Available Mental Status Description No Information Available Referrals Description No Information Available
--- OUTSIDE RECORDS SUMMARY | 2020-04-06 15:40 | CCD | Continuity of Care Document ---
Author Author Sana BRANTLEY PA-C Organization Unknown Address [address] [place] [address] Phone [phone] Care Team Providers Care Helpdesk Analyst Name Role Phone Doug Julien MD [facility] Unavailable Nuzhat Langley MD [facility] [phone] Problems Description No Active Problems Social History [...] Provider Dx Diagnosis Office Visit 03/22/2020 1:45p [place] Jeffy Brantley PA-C M1 7.12 Unilateral primary osteoarthritis, left knee M25.562 Pain in left knee Assessments Date Code Description Provider 03/22/2020 M17.12 Unilateral primary osteoarthriti s, left knee Jeffy Brantley PA-C 03/22/2020 M25.562 Pain in left knee Jeffy irvin PA-C Plan of Treatment Future Appointment(s):* 03/27/2020 1:00 pm - Jeffy Brantley PA-C at [place] 03/22/2020 - Jeffy Brantley PA-C* M17.12 Unilateral primary osteoarthritis, left knee* Follow up:* f/u prn * M25.562 Pain in left knee Functional Status Description No Information Available Mental Status Description No Information Available Referrals Description No Information Available
--- OUTSIDE RECORDS SUMMARY | 2020-04-06 15:40 | CCD | Continuity of Care Document ---
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 Name Role Phone Dhaval Manuel MD AUT[facility] [phone] Nuzhat Langley MD AUTM [phone] Roberto Wallace MD AUTM [phone] [facility] - Surgery AUTM [phone] Freddy Gallegos MD AUTM [phone] Problems Active Problems Provider Date Essential hypertension [...] Use Denies Drug Use Smoking Status Reviewed: 03/22/20 Patient is a former smoker 1 ppd Exercise Type/Frequency Exercises regularly Sun Exposure Does not use sunscreen Seat Belt/Car Seat Always uses seat belt Smoke Alarms Yes Smoke Alarms Carbon Monoxide Detector: Yes Allergies, Adverse Reactions, Alerts Active Allergies Reaction Severity Comments Date Codeine 06/27/2003 Demerol 06/27/2003 Septra rash 11/24/2003 Doxycycline vomiting 09/10/2018 Medications Active Medications SIG Qnty Indications Ordering Provide r Date Semi-Electric Adjustable Bed keep hob and feet elevated for sleep 1 units I50.42 Criselda Herrera FNP 03/27/2020 J44.9 I70.212 Xarelto 15mg Tablets 1 by mouth every day * dose decreased by Dr. Gallegos due to low GFR Unknown 03/17/2020 Magnesium Oxide 400mg Tablets 1 by mouth every day (Dr. Gallegos) Unknown 03/17/2020 Oxycodone-Acetaminophen 5-325mg Ta blets 1 tab by [...] via nasal cannula. Criselda Valdes FNP 08/09/2019 Acetaminophen 325mg Tablets 2 by mouth every 6 hours as needed for leg pain. Unknown 08/07/2019 Potassium Chloride Keren ER 20Meq Tablets ER 1 by mouth bid Unknown 08/07/2019 Bupropion Hydrochloride ER (XL) 150mg Tablets ER 24HR take one tablet by mouth once a day 90tabs F32.9 Criselda Herrera FNP 07/06/2019 Prednisone 5mg Tablets 1 tablet by mouth once a day Unknown 06/29/2019 Alcohol Prep 70% Pads use twice daily as directed before testing bs 1Box Criselda Herrera FNP 12/03/2018 Ipratropium Mcdonough/Albuterol Sulfate 0.5-2.5(3)mg/3ML Solution use 1 vial via nebulizer 4 times daily a s needed for coughing and wheezing 90ml Criselda Herrera FNP 10/14 Fluticasone Propionate 50mcg/Act Suspension one spray each side of nose daily 32gm J30.9 Criselda Cabrera FNP 10/14/2018 Neosporin Original 3.5-400-5000 Oi ntment apply to rash twice a day as needed 28.300gm R21 Emerson Herrera FNP 12/09/2017 [employer] Blood Glucose Monitoring System Device use for monitoring blood glucose twice a day, dx e11.9, prognosis good, duration 99 months 1units Criselda Herrera, [facility] [place] Freestyle Lite Test Strips use to check blood glucose 2 times a day, e11.9 200units Vivian Herrera, [facility] [place] 04/07/2017 Freestyle Lite Lancets Misc use to check fasting blood glusose twice daily, dx: e11.9 200units Merlin gomez Criselda, [facility] [place] 04/07/2017 Citalopram Hydrobromide 40mg Table ts 1 tab by mouth every day 90tabs F32.9 Criselda Herrera, [facility] [place] 03/13/19 18 Proair HFA 108(90Base) mcg/Act Aer osol 2 puffs every 4 hours as needed for wheezing and coughing 3units Criselda Herrera [facility] [place] 04/12/2014 Lumigan 0.01% Solution one gtt. each eye at at bedtime Unknown Diltiazem HCL 60mg Tablets 1 tab by mouth once a at bedtime 90tabs Criselda Herrera [facility] [place] 0 Advair Diskus 500-50mcg/Dose Aeros ol inhale one puff by mouth every day 60units CarmelaVivian springer jelani, [facility] [place] Spironolactone 25mg Tablets take one tablet by mouth every afternoon * Diuretics to be staggered per Dr. Gallegos Unknown History Medications First-Mouthwash BLM Suspension swish and spit 15ml 4-6 times per day. do not swallow 711ml K12.[address] [facility] [place] 01/31/2020 - 03/22/2020 Levofloxacin 750mg Tablets daily by mouth daily for 10 days 10tabs J44.9 Criselda Herrera FNP 0 - 01/31/2020 Torsemide 10mg Tablets take 1 tablet every morning Unknown 11/27/2019 - Levofloxacin 750mg Tablets daily by mouth daily for 10 days 10tabs Criselda Herrera FNP 0 - 10/20/2019 Immunizations CPT Code Status Date Vaccine Lot # [id number] Given 03/25/2018 Pneumococcal Vaccine [id number] Given 12/09/2017 Influenza Virus Vaccine, Quadrivalent,age 3 and up,multidose vial [id number] Q2038 Given 12/04/2016 Influenza Vaccine (Fluzone)( medicare) [id number] Q2038 Given 11/14/2015 Influenza Vaccine (Fluzone)( medicare) [id number] Given 10/12/2015 Prevnar 13 For Adults 45300 Given 11/17/2013 Influenza Vaccination [id number] Given 11/18/2007 Influenza Vaccination [id number] 68396 Given 12/12/2006 Influenza Vaccination [id number] Vital Signs Date Vital Result Comment 03/22/2020 2:57pm BP Systolic 137 mmHg BP Diastolic 62 mmHg Heart Rate 82 /min Body Temperature 97.1 F Respiratory Rate 16 /min Height 61.5 inches 5'1.50" Weight 247.38 lb O2 % BldC Oximetry 98 % Peak Expiratory Flow Rate 292 Estimated Peak Flow Rate [place] Body Weight 105 lb BMI (Body Mass Index) 46.0 kg/m2 01/31/2020 12:04pm BP Systolic 70 mmHg BP Diastolic 37 mmHg Heart Rate 76 /min Body Temperature 97.1 F Respiratory Rate 20 /min Height 61.5 inches 5'1.50" Weight 208.25 lb O2 % BldC Oximetry 96 % Peak Expiratory Flow Rate 292 Estimated Peak Flow Rate [place] Body Weight 105 lb BMI (Body Mass Index) 38.7 kg/m2 Results Test Acquired Date Facility Test Result H/L Range Note Arterial Blood Gas 03/07/2020 [place] [address] [phone] ABG pH (Arterial) 7.491 units High 7.350-7.450 ABG Partial Pressure Co2 45.7 mmHg High 35.0-45.0 ABG Partial Pressure O2 92.4 mmHg Normal 75.0-100.0 ABG Total Co2 35.5 mEq/L High 23.0-31.0 ABG Hco3 34.1 mEq/L High 22.0-26.0 ABG Base Excess 9.7 High -2.0-2.0 ABG Standard Hco3 33.4 mEq/L High 22.0-26.0 ABG O2 Saturation 97.2 % Normal 95.0-99.0 Respiratory Panel 03/07/2020 [place] [address] [phone] Respiratory Panel This respiratory <SEE NOTE> 1 CBC With Differential 01/31/2020 [place] [address] [phone] White Blood Count 9.7 10 Normal 4.0-10.0 [...] 36.0-66.0 Lymph % 11.0 % Low 24.0-44.0 [place] % 6.1 % High 0.0-5.0 Eos % 0.9 % Normal 0.0-3.0 Baso % 0.4 % Normal 0.0-1.0 Immature Granulocyte % 0.9 % Normal 0-3.0 Nucleated Red Blood Cell % 0.0 % Normal 0-0 Neutrophils # 7.8 10 Normal 1.5-8.5 Lymph # 1.1 10 Low 1.5-5.0 [place] # 0.6 10 Normal 0.0-0.8 Eos # 0.1 10 Normal 0.0-0.5 Baso # 0.0 10 Normal 0.0-0.2 Cardiac Marker Panel 01/31/[address] [place] [address] [phone] CPK Creatine Phosphokinase 25 U/L Low 26-19 2 CK-MB Value Mass 1.1 NG/ML Normal <3.6 MB/CK Relative Index 4.40 High < Or =4 2 Troponin I < 0.02 NG/ML Normal < 0.10 3 Liver Profile 01/31/2020 [place] [address] [phone] Ast/Sgot 4 U/L Low 7-37 Alt/SGPT 10 U/L Low 12-78 Alkaline Phosphatase 53 U/L Normal 45-117 Bilirubin,Total 1.1 mg/dL High 0.2-1.0 Bilirubin,Direct 0.4 mg/dL High 0.0-0.2 Total Protein 5.7 GM/DL Low 6.4-8.2 Albumin 3.4 GM/DL Normal 3.2-5.2 Albumin/Globulin Ratio 1.5 Normal 1.2-2.2 Basic Metabolic Profile 01/31/2020 [place] [address] [phone] Glucose, Fasting 125 mg/dL High 70-100 Blood Urea Nitrogen 30 mg/dL High 7-18 Creatinine For GFR 1.48 mg/dL High 0.55-1.30 Glomerular Filtration Rate 36.3 Low >39 4 Sodium Level 141 mEq/L Normal 136-145 Potassium Serum 3.4 mEq/L Low 3.5-5.1 Chloride Level 99 mEq/L Normal 98-107 Carbon Dioxide Level 38 mEq/L High 21-32 Anion Gap 4 mEq/L Low 8-16 Calcium Level 9.5 mg/dL Normal 8.8-10.2 Laboratory test finding 01/31/2020 [place] [address] [phone] NT-Pro BNP 226 pg/mL Normal <450 PT & Aptt 01/31/[address] [facility] [place] [address] [phone] Prothrombin Time 23.1 seconds High 12.5-14.3 Inr 2.00 Normal 5 Partial Thromboplastin Time 33.4 seconds Normal 24.2-38.5 Cardiac Marker Panel 01/24/2020 Patient Service [facility] [place] [address] [phone] CPK Creatine Phosphokinase 27 U/L Normal 26-19 2 CK-MB Value Mass 1.2 NG/ML Normal <3.6 MB/CK Relative Index 4.44 High < Or =4 6 Troponin I < 0.02 NG/ML Normal < 0.10 7 Laboratory test finding 01/23/2020 [place] [address] [phone] NT-Pro BNP 519 pg/mL High <450 Basic Metabolic Profile 01/23/2020 [place] [address] [phone] Glucose, Fasting 149 mg/dL High 70-100 Blood Urea Nitrogen 24 mg/dL High 7-18 Creatinine For GFR 1.61 mg/dL High 0.55-1.30 Glomerular Filtration Rate 32.9 Low >39 8 Sodium Level 139 mEq/L Normal 136-145 Potassium Serum 3.5 mEq/L Normal 3.5-5.1 9 Chloride Level 97 mEq/L Low 98-107 Carbon Dioxide Level 35 mEq/L High 21-32 Anion Gap 7 mEq/L Low 8-16 Calcium Level 9.2 mg/dL Normal 8.8-10.2 CBC With Differential 01/23/2020 [place] [address] [phone] White Blood Count 10.4 10 High 4.0-10.0 [...] 36.0-66.0 Lymph % 8.0 % Low 24.0-44.0 [place] % 5.0 % Normal 0.0-5.0 Eos % 0.4 % Normal 0.0-3.0 Baso % 0.2 % Normal 0.0-1.0 Immature Granulocyte % 0.8 % Normal 0-3.0 Nucleated Red Blood Cell % 0.0 % Normal 0-0 Neutrophils # 8.9 10 High 1.5-8.5 Lymph # 0.8 10 Low 1.5-5.0 [place] # 0.5 10 Normal 0.0-0.8 Eos # 0.0 10 Normal 0.0-0.5 Baso # 0.0 10 Normal 0.0-0.2 Prothrombin Time/Inr 01/23/2020 [place] [address] [phone] Prothrombin Time 26.3 seconds High 12.5-14.3 Inr 2.35 Normal 10 Liver Profile 01/23/2020 [place] [address] [phone] Ast/Sgot 7 U/L Normal 7-37 Alt/SGPT 9 U/L Low 12-78 Alkaline Phosphatase 54 U/L Normal 45-117 Bilirubin,Total 0.6 mg/dL Normal 0.2-1.0 Bilirubin,Direct 0.3 mg/dL High 0.0-0.2 Total Protein 5.6 GM/DL Low 6.4-8.2 Albumin 3.1 GM/DL Low 3.2-5.2 Albumin/Globulin Ratio 1.2 Normal 1.2-2.2 Cardiac Marker Panel 01/23/2020 [place] [address] [phone] CPK Creatine Phosphokinase 43 U/L Normal 26-19 2 CK-MB Value Mass < 1.0 NG/ML Normal <3.6 MB/CK Relative Index 2.33 Normal < Or =4 11 Troponin I < 0.02 NG/ML Normal < 0.10 12 Comprehensive Metabolic Profil 01/19/2020 [facility] [phone] Glucose, Fasting 139 mg/dL High 70-100 Blood Urea Nitrogen 21 mg/dL High 7-18 Creatinine For GFR 1.54 mg/dL High 0.55-1.30 Glomerular Filtration Rate 34.7 Low >39 1 3 Sodium Level 138 mEq/L Normal 136-145 Potassium [...] Ratio 1.4 Normal 1.2-2.2 Hemoglobin A1c 01/19/2020 [facility] nter [phone] Hemoglobin A1c 6.5 % Normal 14 Estimated Average Glucose 140 mg/dL High 60-110 Istat Chem8+ Panel 12/02/2019 [place] [address] [phone] iSTAT HCT 31.0 % Low 38.0-51.0 iSTAT Glucose 116 mg/dL High 70-105 iSTAT Sodium 140 mEq/L Normal 136-145 iSTAT Potassium 3.8 mEq/L Normal 3.5-5.1 iSTAT CA++ 4.8 mg/dL Normal 4.5-5.3 iSTAT Chloride 99 mEq/L Normal 98-109 iSTAT Co2 28.0 MM/L High 23.0-27.0 iSTAT BUN 17 mg/dL Normal 8-26 iSTAT Creatinine 1.1 mg/dL Normal 0.6-1.3 Laboratory test finding 12/02/2019 Patient Service [place] [id number] [phone] iSTAT Troponin 0.00 NG/ML Normal 0.00-0.08 Laboratory test finding 12/02/2019 [place] [address] [phone] NT-Pro BNP 377 pg/mL Normal <450 Phenobarbital Level 2.1 UG/ML Low 15.0-40.0 Thyroid Stimulating Hormone 1.970 uIU/ML Normal 0.358-3.740 Lactic Acid Sepsis Protocol 1.4 mmol/L Normal 0.4-2.0 15 Laboratory test finding 12/02/2019 [place] [address] [phone] Sars Covid-19 Amplification NEGATIVE Normal Nega tive 16 Venous Blood Gas 12/02/2019 [place] [address] [phone] Venous PH 7.482 units High 7.330-7.430 Venous Partial Pressure Co2 37.5 mmHg Low 38.0-50.0 Venous Partial Pressure O2 135.7 mmHg High 30.0-50.0 Venous Total Co2 28.6 mEq/L High 24.0-28.0 Venous Hco3 27.4 mEq/L High 23.0-27.0 Venous Base Excess 3.9 High -2.0-2.0 Venous Standard Hco3 28.0 mEq/L Normal Venous O2 Saturation 98.9 % High 60.0-80.0 CBC With Differential 12/02/2019 [place] [address] [phone] White Blood Count 8.8 10 Normal 4.0-10.0 [...] 36.0-66.0 Lymph % 10.9 % Low 24.0-44.0 [place] % 7.1 % High 0.0-5.0 Eos % 1.9 % Normal 0.0-3.0 Baso % 0.5 % Normal 0.0-1.0 Immature Granulocyte % 0.6 % Normal 0-3.0 Nucleated Red Blood Cell % 0.0 % Normal 0-0 Neutrophils # 6.9 10 Normal 1.5-8.5 Lymph # 1.0 10 Low 1.5-5.0 [place] # 0.6 10 Normal 0.0-0.8 Eos # 0.2 10 Normal 0.0-0.5 Baso # 0.0 10 Normal 0.0-0.2 Prothrombin Time/Inr 12/02/[address] [place] [address] [phone] Prothrombin Time 19.4 seconds High 12.5-14.3 Inr 1.60 Normal 17 Liver Profile 12/02/2019 [place] [address] [phone] Ast/Sgot 7 U/L Normal 7-37 Alt/SGPT 11 U/L Low 12-78 Alkaline Phosphatase 59 U/L Normal 45-117 Bilirubin,Total 0.7 mg/dL Normal 0.2-1.0 Bilirubin,Direct 0.3 mg/dL High 0.0-0.2 Total Protein 5.6 GM/DL Low 6.4-8.2 Albumin 3.2 GM/DL Normal 3.2-5.2 Albumin/Globulin Ratio 1.3 Normal 1.2-2.2 CBC With Differential 11/24/2019 [place] [address] [phone] White Blood Count 8.2 10 Normal 4.0-10.0 [...] 36.0-66.0 Lymph % 10.7 % Low 24.0-44.0 [place] % 5.6 % High 0.0-5.0 Eos % 2.1 % Normal 0.0-3.0 Baso % 0.5 % Normal 0.0-1.0 Immature Granulocyte % 0.6 % Normal 0-3.0 Nucleated Red Blood Cell % 0.0 % Normal 0-0 Neutrophils # 6.6 10 Normal 1.5-8.5 Lymph # 0.9 10 Low 1.5-5.0 [place] # 0.5 10 Normal 0.0-0.8 Eos # 0.2 10 Normal 0.0-0.5 Baso # 0.0 10 Normal 0.0-0.2 Laboratory test finding 11/24/2019 [place] [address] [phone] Erythrocyte Sedimentation Rate 11 mm/hr Normal 0 -30 Cardiac Marker Panel 11/24/2019 Patient Service [facility] [place] [address] [phone] CPK Creatine Phosphokinase 26 U/L Normal 26-19 2 CK-MB Value Mass 1.2 NG/ML Normal <3.6 MB/CK Relative Index 4.62 High < Or =4 18 Troponin I < 0.02 NG/ML Normal < 0.10 19 Liver Profile 11/24/2019 [place] [address] [phone] Ast/Sgot 7 U/L Normal 7-37 Alt/SGPT 12 U/L Normal 12-78 Alkaline Phosphatase 56 U/L Normal 45-117 Bilirubin,Total 0.9 mg/dL Normal 0.2-1.0 Bilirubin,Direct 0.3 mg/dL High 0.0-0.2 Total Protein 5.5 GM/DL Low 6.4-8.2 Albumin 3.2 GM/DL Normal 3.2-5.2 Albumin/Globulin Ratio 1.4 Normal 1.2-2.2 Basic Metabolic Profile 11/24/2019 [place] [address] [phone] Glucose, Fasting 139 mg/dL High 70-100 Blood Urea Nitrogen 17 mg/dL Normal 7-18 Creatinine For GFR 1.27 mg/dL Normal 0.55-1.30 Glomerular Filtration Rate 43.4 Normal >39 2 0 Sodium Level 140 mEq/L Normal 136-145 Potassium Serum 4.0 mEq/L Normal 3.5-5.1 Chloride Level 105 mEq/L Normal 98-107 Carbon Dioxide Level 30 mEq/L Normal 21-32 Anion Gap 5 mEq/L Low 8-16 Calcium Level 9.2 mg/dL Normal 8.8-10.2 Laboratory test finding 11/24/2019 [place] [address] [phone] NT-Pro BNP 244 pg/mL Normal <450 Thyroid Stimulating Hormone 2.460 uIU/ML Normal 0.358-3.740 C Reactive Protein Quantitativ 0.77 mg/dL High 0.00-0.30 Venous Blood Gas 10/10/2019 [place] [address] [phone] Venous PH 7.380 units Normal 7.330-7.430 Venous Partial Pressure Co2 42.1 mmHg Normal 38.0-50.0 Venous Partial Pressure O2 66.4 mmHg High 30.0-50.0 Venous Total Co2 24.3 mEq/L Normal 24.0-28.0 Venous Hco3 24.3 mEq/L Normal 23.0-27.0 Venous Base Excess -0.8 Normal -2.0-2.0 Venous Standard Hco3 23.7 mEq/L Normal Venous O2 Saturation 91.3 % High 60.0-80.0 CBC With Differential 10/10/2019 [place] [address] [phone] White Blood Count 9.0 10 Normal 4.0-10.0 [...] 36.0-66.0 Lymph % 13.0 % Low 24.0-44.0 [place] % 5.9 % High 0.0-5.0 Eos % 0.2 % Normal 0.0-3.0 Baso % 0.2 % Normal 0.0-1.0 Immature Granulocyte % 0.7 % Normal 0-3.0 Nucleated Red Blood Cell % 0.0 % Normal 0-0 Neutrophils # 7.2 10 Normal 1.5-8.5 Lymph # 1.2 10 Low 1.5-5.0 [place] # 0.5 10 Normal 0.0-0.8 Eos # 0.0 10 Normal 0.0-0.5 Baso # 0.0 10 Normal 0.0-0.2 Laboratory test finding 10/10/2019 [place] [address] [phone] Lactic Acid Sepsis Protocol 2.0 mmol/L Normal 0.4- 2.0 21 Cardiac Marker Panel 10/10/[address] [place] [address] [phone] CPK Creatine Phosphokinase 25 U/L Low 26-19 2 CK-MB Value Mass 1.0 NG/ML Normal <3.6 MB/CK Relative Index 4.00 Normal < Or =4 22 Troponin I < 0.02 NG/ML Normal < 0.10 23 Liver Profile 10/10/[address] [facility] [place] [place] [address] [phone] Ast/Sgot 11 U/L Normal 7-37 Alt/SGPT 10 U/L Low 12-78 Alkaline Phosphatase 56 U/L Normal 45-117 Bilirubin,Total 0.6 mg/dL Normal 0.2-1.0 Bilirubin,Direct 0.2 mg/dL Normal 0.0-0.2 Total Protein 5.7 GM/DL Low 6.4-8.2 Albumin 3.4 GM/DL Normal 3.2-5.2 Albumin/Globulin Ratio 1.5 Normal 1.2-2.2 Basic Metabolic Profile 10/10/2019 [place] [address] [phone] Glucose, Fasting 108 mg/dL High 70-100 Blood Urea Nitrogen 17 mg/dL Normal 7-18 Creatinine For GFR 1.25 mg/dL Normal 0.55-1.30 Glomerular Filtration Rate 44.2 Normal >39 2 4 Sodium Level 141 mEq/L Normal 136-145 Potassium Serum 3.9 mEq/L Normal 3.5-5.1 Chloride Level 106 mEq/L Normal 98-107 Carbon Dioxide Level 29 mEq/L Normal 21-32 Anion Gap 6 mEq/L Low 8-16 Calcium Level 9.6 mg/dL Normal 8.8-10.2 Laboratory test finding 10/10/2019 [place] [address] [phone] NT-Pro BNP 264 pg/mL Normal <450 Thyroxine (T4) 8.4 g/dL Normal 4.5-12.0 Thyroid Stimulating Hormone 1.340 uIU/ML Normal 0.358-3.740 1 This respiratory PCR panel d etects Influenza A H1, H3 and 2009 H1 viruses, Influenza B virus, Resp iratory Syncytial Virus, Human metapneumovirus, Parainfluenza virus 1, 2, 3 and 4, Adenovirus, Rhinovirus/Enterovirus, Coronavirus HKU1, NL63, OC43, 229E and SARS-CoV-2 (COVID 19), Bordetella pertussis, Bordetella parapertussis, Mycoplasma pneumoniae and Chlamydia pneumoniae. NEGATIVE by MULTIPLEXED NUCLEIC ACID PCR SARS-CoV-2 (COVID 19) NEGATIVE - SARS-CoV-2 (COVID19) 2 DIAGNOSIS CRITERIA MMB ng/ml Relative Index (RI) NON-AMI < or = 5 N/A GOYAL ZONE > 5 < or = 4 AMI > 5 > 4 3 Troponin I Reference Interva l for [employer] LOCI: 99th Percentile= 0.00-0.045 ng/ml Risk Stratification: <= 0.10 ng/ml Decreased Risk for Adverse Clinical Events. 0.10-1.50 ng/ml Increased Risk for Adv erse Clinical Events. Evaluation of additional criterion and/or repeat testing in 2-6 hours is suggested to rule out myocardial damage. >= 1.50 ng/ml Indicative of Myocardial Injury. 4 Units are mL/min/1.73 m2 Chronic Kidney Disease Staging per NKF: Stage I & II GFR >=60 Normal to Mildly Decreased Stage III GFR 30-59 Moderately Decreased Stage IV GFR 15-29 Severely Decreased Stage V GFR <15 Very Little GFR Left ESRD GFR <15 on AIR EXPORT AGENT 5 THERAPUTIC HUMAN INR VALUES INDICATIONS NORMAL [...] 7 Troponin I Reference Interva l for [employer] LOCI: 99th Percentile= 0.00-0.045 ng/ml Risk Stratification: [...] Little GFR Left ESRD GFR <15 on AIR EXPORT AGENT 9 Testing was performed on an icteric specimen. This specimen has an elevated potassium level but there is NO visible hemolysis noted. 10 THERAPUTIC HUMAN INR VALUES INDICATIONS NORMAL RANGES PROPHYLAXIS/TREATMENT OF: VENOUS THROMBOSIS 2.0-3.0 PULMONARY EMBOLISM 2.0-3.0 PREVENTION OF SYSTEMIC EMBOLISM FROM: TISSUE HEART VALVES 2.0-3.0 ACUTE MYOCARDIAL INFARCTION 2.0-3.0 VALVULAR HEART DISEASE 2.0-3.0 ATRIAL FIBRILLATION 2.0-3.0 MECHANICAL VALVES(HIGH RISK) 2.5-3.5 RECURRENT MYOCARDIAL INFARCTION 2.5-3.5 11 DIAGNOSIS CRITERIA MMB ng/ml Relative Index (RI) NON-AMI < or = 5 N/A GOYAL ZONE > 5 < or = 4 AMI > 5 > 4 12 Troponin I Reference Interva l for [employer] [place] LOCI: 99th Percentile= 0.00-0.045 ng/ml Risk Stratification: <= 0.10 ng/ml Decreased Risk for Adverse Clinical Events. 0.10-1.50 ng/ml Increased Risk for Adv erse Clinical Events. Evaluation of additional criterion and/or repeat testing in 2-6 hours is suggested to rule out myocardial damage. >= 1.50 ng/ml Indicative of Myocardial Injury. 13 Units are mL/min/1.73 m2 Chronic Kidney Disease Staging per NKF: Stage I & II GFR >=60 Normal to Mildly Decreased Stage III GFR 30-59 Moderately Decreased Stage IV GFR 15-29 Severely Decreased Stage V GFR <15 Very Little GFR Left ESRD GFR <15 on AIR EXPORT AGENT 14 REFERENCE RANGES: <=5.6% NORMAL 5.7-6.4% SUGGESTS IMPAIRED GLUCOSE META BOLISM/PREDIABETIC >= 6.5% ABNORMAL 15 Y/N query for Sepsis Lactate Rule: Y 16 A false negative result may occur if [...] pathogens. DISCLAIMER: Testing was performed using the [employer] [facility] SARS-CoV-2 test. This test was developed and its performance characteristics determined by [facility] [facility]. This test has not been FDA cleared [...] the authorization is terminated or revoked sooner. 17 THERAPUTIC HUMAN INR VALUES INDICATIONS NORMAL RANGES PROPHYLAXIS/TREATMENT OF: VENOUS THROMBOSIS 2.0-3.0 PULMONARY EMBOLISM 2.0-3.0 PREVENTION OF SYSTEMIC EMBOLISM FROM: TISSUE HEART VALVES 2.0-3.0 ACUTE MYOCARDIAL INFARCTION 2.0-3.0 VALVULAR HEART DISEASE 2.0-3.0 ATRIAL FIBRILLATION 2.0-3.0 MECHANICAL VALVES(HIGH RISK) 2.5-3.5 RECURRENT MYOCARDIAL INFARCTION 2.5-3.5 18 DIAGNOSIS CRITERIA MMB ng/ml Relative Index (RI) NON-AMI < or = 5 N/A GOYAL ZONE > 5 < or = 4 AMI > 5 > 4 19 Troponin I Reference Interva l for [employer] [place] LOCI: 99th Percentile= 0.00-0.045 ng/ml Risk Stratification: <= 0.10 ng/ml Decreased Risk for Adverse Clinical Events. 0.10-1.50 ng/ml Increased Risk for Adv erse Clinical Events. Evaluation of additional criterion and/or repeat testing in 2-6 hours is suggested to rule out myocardial damage. >= 1.50 ng/ml Indicative of Myocardial Injury. 20 Units are mL/min/1.73 m2 Chronic Kidney Disease Staging per NKF: Stage I & II GFR >=60 Normal to Mildly Decreased Stage III GFR 30-59 Moderately Decreased Stage IV GFR 15-29 Severely Decreased Stage V GFR <15 Very Little GFR Left ESRD GFR <15 on AIR EXPORT AGENT 21 Y/N query for Sepsis Lactate Rule: Y 22 DIAGNOSIS CRITERIA MMB ng/ml Relative Index (RI) NON-AMI < or = 5 N/A GOYAL ZONE > 5 < or = 4 AMI > 5 > 4 23 Troponin I Reference Interva l for [employer] LOCI: 99th Percentile= 0.00-0.045 ng/ml Risk Stratification: <= 0.10 ng/ml Decreased Risk for Adverse Clinical Events. 0.10-1.50 ng/ml Increased Risk for Adv erse Clinical Events. Evaluation of additional criterion and/or repeat testing in 2-6 hours is suggested to rule out myocardial damage. >= 1.50 ng/ml Indicative of Myocardial Injury. 24 Units are mL/min/1.73 m2 Chronic Kidney Disease Staging per NKF: Stage I & II GFR >=60 Normal to Mildly Decreased Stage III GFR 30-59 Moderately Decreased Stage IV GFR 15-29 Severely Decreased Stage V GFR <15 Very Little GFR Left ESRD GFR <15 on AIR EXPORT AGENT Procedures Date Code Description Status 01/26/2020 [id number] Mammogram Completed 03/25/2018 [id number] Diabetic Foot Exam Completed 05/09/2014 [id number] Mammogram Completed 04/27/2014 [id number] Mammogram Completed 12/10/2010 [id number] Mammogram Completed Medical Devices Description No Information Available Encounters Type Date Location Provider Dx Diagnosis Office Visit 03/22/2020 3:15p Main Office Criselda Herrera FNP 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 E87.6 Hypokalemia Office Visit 01/31/2020 11:45a Main Office Criselda Herrera FNP 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 I48.91 Unspecified atrial fibrillat ion I70.212 [facility] [place] [facility] of ex trm w intrmt damaris, left leg N18.9 Chronic kidney disease, unsp ecified K12.0 Recurrent oral aphthae Office Visit 01/19/2020 2:00p Main Office Criselda Herrera FNP Z00.0 0 Encntr for general adult medical exam w/o abnormal findings 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 I48.91 Unspecified atrial fibrillat ion I70.212 [facility] [place] [facility] trm w steve damaris, left leg E11.69 Type 2 diabetes mellitus wit h other specified complication J44.9 Chronic obstructive pulmonar y disease, unspecified Office Visit 01/11/2020 3:45p Main Office Plemarioach[facility]riselda, CLASSIFICATIONS OFFICER CC/CM 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 I48.91 Unspecified atrial fibrillat ion I70.212 [facility] [place] [facility] w martinmt damaris, left leg E11.69 Type 2 diabetes mellitus wit h other specified complication J44.1 Chronic obstructive pulmonar y disease w (acute) exacerbation Office Visit 12/16/2019 1:15p Main Office PleskachMoey, CLASSIFICATIONS OFFICER CC/CM 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 I48.91 Unspecified atrial fibrillat ion I70.212 [facility] [place] [facility] w steve damaris, left leg E11.69 Type 2 diabetes mellitus wit h other specified complication J44.1 Chronic obstructive pulmonar y disease w (acute) exacerbation Office Visit 12/02/2019 4:00p Main Office PleCriselda gomez, CLASSIFICATIONS OFFICER CC/CM I50.2 3 Acute on chronic systolic (congestive) heart failure Office Visit 11/24/2019 10:00a Main Office Criselda Herrera, CLASSIFICATIONS OFFICER CC/CM L03.1 16 Cellulitis of left lower limb R06.00 Dyspnea, unspecified Office Visit 10/20/2019 1:45p Main Office PleCriselda gomez, CLASSIFICATIONS OFFICER CC/CM 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 E11.69 Type 2 diabetes mellitus wit h other specified complication I48.91 Unspecified atrial fibrillat ion E87.6 Hypokalemia E83.42 Hypomagnesemia R60.0 Localized edema I70.212 [facility] [place] [facility] w steve damaris, left leg J44.9 Chronic obstructive pulmonar y disease, unspecified Assessments Date Code Description Provider 03/22/2020 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 Criselda Herrera FNP 03/22/2020 E87.6 Hypokalemia Criselda Herrera FNP 03/15/2020 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 Sharon Criselda, CLASSIFICATIONS OFFICER CC/CM 03/15/2020 I48.91 Unspecified atrial fibrillation Pleskach, Criselda, CLASSIFICATIONS OFFICER CC/CM 03/15/2020 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, left leg Pleskach, Criselda, CLASSIFICATIONS OFFICER CC/CM 03/15/2020 J44.9 Chronic obstructive pulmonary di sease, unspecified Pleskach, Criselda, CLASSIFICATIONS OFFICER CC/CM 01/31/2020 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 Pleskach, Criselda, CLASSIFICATIONS OFFICER CC/CM 01/31/2020 I48.91 Unspecified atrial fibrillation Pleskach, Criselda, CLASSIFICATIONS OFFICER CC/CM 01/31/2020 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, left leg Pleskach, Criselda, CLASSIFICATIONS OFFICER CC/CM 01/31/2020 N18.9 Chronic kidney disease, unspecif ied Pleskach, Criselda, CLASSIFICATIONS OFFICER CC/CM 01/31/2020 K12.0 Recurrent oral aphthae Pleskach, Criselda, CLASSIFICATIONS OFFICER CC/CM 01/28/2020 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 Pleskach, Criselda, CLASSIFICATIONS OFFICER CC/CM 01/28/2020 I48.91 Unspecified atrial fibrillation Pleskach, Criselda, CLASSIFICATIONS OFFICER CC/CM 01/28/2020 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, left leg Pleskach, Criselda, CLASSIFICATIONS OFFICER CC/CM 01/28/2020 E11.69 Type 2 diabetes mellitus with ot her specified complication Pleskach, Criselda, CLASSIFICATIONS OFFICER CC/CM 01/28/2020 J44.9 Chronic obstructive pulmonary di sease, unspecified Pleskach, Criselda, CLASSIFICATIONS OFFICER CC/CM 01/19/2020 Z00.00 Encounter for genera l adult medical examination without abnormal findings Nuzhat Langley M.D. 01/19/2020 Z00.00 Encounter for genera l adult medical examination without abnormal findings Pleskach, Criselda, CLASSIFICATIONS OFFICER CC/CM 01/19/2020 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 01/19/2020 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 Pleskach, Criselda, CLASSIFICATIONS OFFICER CC/CM 01/19/2020 I48.91 Unspecified atrial fibrillation Nuzhat Langley M.D. 01/19/2020 I48.91 Unspecified atrial fibrillation Pleskach Criselda, CLASSIFICATIONS OFFICER CC/CM 01/19/2020 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, left leg Nuzhat Langley M.D. 01/19/2020 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, left leg Pleskach Criselda, CLASSIFICATIONS OFFICER CC/CM 01/19/2020 E11.69 Type 2 diabetes mellitus with ot her specified complication Nuzhat Langley M.D. 01/19/2020 E11.69 Type 2 diabetes mellitus with ot her specified complication Pleskach Criselda, CLASSIFICATIONS OFFICER CC/CM 01/19/2020 J44.9 Chronic obstructive pulmonary di sease, unspecified Nuzhat Langley M.D. 01/19/2020 J44.9 Chronic obstructive pulmonary di sease, unspecified Pleskach, Criselda, CLASSIFICATIONS OFFICER CC/CM 01/11/2020 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 Pleskach, Criselda, CLASSIFICATIONS OFFICER CC/CM 01/11/2020 I48.91 Unspecified atrial fibrillation Pleskach, Criselda, CLASSIFICATIONS OFFICER CC/CM 01/11/2020 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, left leg Pleskach Criselda, CLASSIFICATIONS OFFICER CC/CM 01/11/2020 E11.69 Type 2 diabetes mellitus with ot her specified complication Pleskach, Criselda, CLASSIFICATIONS OFFICER CC/CM 01/11/2020 J44.1 Chronic obstructive pulmonary disease with (acute) exacerbation Pleskach, Criselda, CLASSIFICATIONS OFFICER CC/CM 01/10/2020 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 Pleskach, Criselda, CLASSIFICATIONS OFFICER CC/CM 01/10/2020 I48.91 Unspecified atrial fibrillation Pleskach, Criselda, CLASSIFICATIONS OFFICER CC/CM 01/10/2020 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, left leg Pleskach, Criselda, CLASSIFICATIONS OFFICER CC/CM 01/10/2020 E11.69 Type 2 diabetes mellitus with ot her specified complication Pleskach, Criselda, CLASSIFICATIONS OFFICER CC/CM 01/10/2020 J44.9 Chronic obstructive pulmonary di sease, unspecified Pleskach, Criselda, CLASSIFICATIONS OFFICER CC/CM 12/16/2019 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 Pleskach, Criselda, CLASSIFICATIONS OFFICER CC/CM 12/16/2019 I48.91 Unspecified atrial fibrillation Pleskach, Criselda, CLASSIFICATIONS OFFICER CC/CM 12/16/2019 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, left leg Pleskach, Criselda, CLASSIFICATIONS OFFICER CC/CM 12/16/2019 E11.69 Type 2 diabetes mellitus with ot her specified complication Pleskach, Criselda, CLASSIFICATIONS OFFICER CC/CM 12/16/2019 J44.1 Chronic obstructive pulmonary disease with (acute) exacerbation Pleskach, Criselda, CLASSIFICATIONS OFFICER CC/CM 12/03/2019 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 Pleskach, Criselda, CLASSIFICATIONS OFFICER CC/CM 12/03/2019 I48.91 Unspecified atrial fibrillation Pleskach, Criselda, CLASSIFICATIONS OFFICER CC/CM 12/03/2019 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, left leg Pleskach, Criselda, CLASSIFICATIONS OFFICER CC/CM 12/03/2019 E11.69 Type 2 diabetes mellitus with ot her specified complication Pleskach, Criselda, CLASSIFICATIONS OFFICER CC/CM 12/03/2019 J44.1 Chronic obstructive pulmonary disease with (acute) exacerbation Pleskach, Criselda, CLASSIFICATIONS OFFICER CC/CM 12/02/2019 I50.23 Acute on chronic systolic (conge stive) heart failure Pleskach, Criselda, CLASSIFICATIONS OFFICER CC/CM 12/01/2019 I50.23 Acute on chronic systolic (conge stive) heart failure Pleskach, Criselda, CLASSIFICATIONS OFFICER CC/CM 12/01/2019 E11.69 Type 2 diabetes mellitus with ot her specified complication Pleskach, Criselda, CLASSIFICATIONS OFFICER CC/CM 12/01/2019 J44.9 Chronic obstructive pulmonary di sease, unspecified Pleskach, Criselda, CLASSIFICATIONS OFFICER CC/CM 11/26/2019 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 Pleskach, Criselda, CLASSIFICATIONS OFFICER CC/CM 11/26/2019 I48.91 Unspecified atrial fibrillation Pleskach, Criselda, CLASSIFICATIONS OFFICER CC/CM 11/26/2019 E11.69 Type 2 diabetes mellitus with ot her specified complication Pleskach, Criselda, CLASSIFICATIONS OFFICER CC/CM 11/24/2019 L03.116 Cellulitis of left lower limb Pl Criselda connor, CLASSIFICATIONS OFFICER CC/CM 11/24/2019 R06.00 Dyspnea, unspecified PleLesly gomez, CLASSIFICATIONS OFFICER CC/CM 11/09/2019 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 PleMoe gomezy, CLASSIFICATIONS OFFICER CC/CM 11/09/2019 E11.69 Type 2 diabetes mellitus with ot her specified complication Pleskach Criselda, CLASSIFICATIONS OFFICER CC/CM 11/09/2019 I48.91 Unspecified atrial fibrillation Pleskach Criselda, CLASSIFICATIONS OFFICER CC/CM 11/09/2019 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, left leg PleskMoe springery, CLASSIFICATIONS OFFICER CC/CM 11/09/2019 J44.1 Chronic obstructive pulmonary disease with (acute) exacerbation PleskCriselda springer, CLASSIFICATIONS OFFICER CC/CM 10/20/2019 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 PleMoe gomezy, CLASSIFICATIONS OFFICER CC/CM 10/20/2019 E11.69 Type 2 diabetes mellitus with ot her specified complication PlemarioachMoey, CLASSIFICATIONS OFFICER CC/CM 10/20/2019 I48.91 Unspecified atrial fibrillation PleMoe gomezy, CLASSIFICATIONS OFFICER CC/CM 10/20/2019 E87.6 Hypokalemia Moe Herreray, CLASSIFICATIONS OFFICER CC/CM 10/20/2019 E83.42 Hypomagnesemia PleMoe gomezy, CLASSIFICATIONS OFFICER CC/CM 10/20/2019 R60.0 Localized edema PleskachCriselda, CLASSIFICATIONS OFFICER CC/CM 10/20/2019 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, left leg PleskachMoey, CLASSIFICATIONS OFFICER CC/CM 10/20/2019 J44.9 Chronic obstructive pulmonary di sease, unspecified Pleskach, Criselda, CLASSIFICATIONS OFFICER CC/CM 10/18/2019 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 10/18/2019 E11.69 Type 2 diabetes mellitus with ot her specified complication Nuzhat Langley M.D. 10/18/2019 I48.91 Unspecified atrial fibrillation Nuzhat Langley M.D. 10/18/2019 E87.6 Hypokalemia Nuzhat Langley M.D. 10/18/2019 E83.42 Hypomagnesemia Nuzhat Langley M.D. Plan of Treatment Future Appointment(s):* 04/18/2020 1:00 pm - Criselda Herrera FNP at Main Office 03/22/2020 - Criselda Herrera FNP* I50.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* Comments:* patient instructed to restart torsemide as previously prescribed. She will take an extra tablet today then resume her normal dose tomorrow. She is advised to call if her breathing worsens. She needs to keep her legs elevated as much as possible. * E87.6 Hypokalemia* Comments:* continue spirinolactone Functional Status Functional Condition Comment Date Status Bifocal glasses Active Independent with all ADL's Activ e Complete lower and upper and lower dentures Active Independent with all IADL's Acti ve Mental Status Mental Condition Comment Date Status None Active Referrals Refer to Dr Reason for Referral Status Appt Date Freddy Gallegos MD CKD in the presence of CHF Closed 0 03/17/[address] [place] [address] [phone] [facility] referring for PAD, LLE redness and swelling and pain Closed 12/07/2019 [address] [facility], [address] [place] [address] [phone] [facility] referring for PAD, LLE redness and swelling and pain Patient Declined 12/21/2019 [address] [facility], [address] [place] [address] [phone]
--- OUTSIDE RECORDS SUMMARY | 2020-04-06 15:40 | CCD | Continuity of Care Document ---
Author Author Sana VEGA M.D. Organization Unknown Address [address] [place] [address] Phone [phone] Care Team Providers Care [employer]can[employer] Rubber Plate Name Role Phone Dhaval Manuel MD AUTM [phone] Nuzhat Vega MD AUTM [phone] Roberto Wallace MD AUTM [phone] [facility] - Surgery AUTM [phone] Freddy Gallegos MD AUTM [phone] Problems Active Problems Provider Date Essential hypertension [...] to atherosclerosis of ar leonie of limb Crisedla Herrera FNP Onset: 10/20/2019 Type 2 diabetes [...] Date First-Mouthwash BLM Suspension swish and spit 15ml 4-6 times per day. do not swallow 711ml K12.0 Ples Criselda jean-baptiste FNP 01/31/2020 Oxycodone-Acetaminophen 5-325mg Ta blets 1 [...] bs 1Box Criselda Herrera FNP 12/03/2018 Ipratropium Thompson/Albuterol Sulfate 0.5-2.5(3)mg/3ML Solution use 1 vial via nebulizer 4 times daily a s needed for coughing and wheezing 90ml Criselda Herrera FNP 10/14 Fluticasone Propionate 50mcg/Act Suspension one spray each side of nose daily 32gm J30.9 Criselda Cabrera FNP 10/14/2018 Neosporin Original 3.5-400-5000 Oi ntment apply to rash twice a day as needed 28.300gm R21 Emerson Herrera FNP 12/09/2017 Freestyle Lite Blood Glucose Monitoring System Device use for monitoring blood glucose twice a day, dx e11.9, prognosis good, duration 99 months 1units Criselda Herrera FNP Freestyle Lite Test Strips use to check blood glucose 2 times a day, e11.9 200units Vivian Herrera FNP 04/07/2017 Freestyle Lite Lancets [facility] use to check fasting blood glusose twice daily, dx: e11.9 200units Criselda Ruelas YOU[employer] ACC[employer]MODATION SUPPORT WORKER 04/07/2017 Citalopram Hydrobromide 40mg Table ts 1 [...] by mouth every day 60units Vivian Herrera [facility] Xarelto 20mg Tablets 1 by mouth every day Jason Cosby [facility] History Medications Levofloxacin 750mg Tablets daily by mouth daily for 10 days 10tabs J44.9 Criselda Herrera [employer]MODATION SUPPORT WORKER 0 - 01/31/2020 Torsemide 10mg Tablets take 1 tablet every morning Unknown 11/27/2019 - Levofloxacin 750mg Tablets daily by mouth daily for 10 days 10tabs Criselda Herrera FNP 0 - 10/20/2019 Immunizations CPT Code Status Date Vaccine Lot # [id number] Given 03/25/2018 Pneumococcal Vaccine [id number] Given 12/09/2017 Influenza Virus Vaccine, Quadrivalent,age 3 and up,multidose vial [id number] Q2038 Given 12/04/2016 Influenza Vaccine (Fluzone)( medicare) [id number] Q2038 Given 11/14/2015 Influenza Vaccine (Fluzone)( medicare) [id number] Given 10/12/2015 Prevnar 13 For Adults 11929 Given 11/17/2013 Influenza Vaccination 08647 Given 11/18/2007 Influenza Vaccination [id number] 85615 Given 12/12/2006 Influenza Vaccination [id number] Vital Signs Date Vital Result Comment 01/31/2020 12:04pm BP Systolic 70 mmHg BP Diastolic 37 mmHg Heart Rate 76 /min Body Temperature 97.1 F Respiratory Rate 20 /min Height 61.5 inches 5'1.50" Weight 208.25 lb O2 % BldC Oximetry 96 % Peak Expiratory Flow Rate 292 Estimated Peak Flow Rate [place] Body Weight 105 lb BMI (Body Mass Index) 38.7 kg/m2 01/19/2020 2:18pm BP Systolic 108 mmHg BP Diastolic 77 mmHg Heart Rate 93 /min Body Temperature 97.3 F Respiratory Rate 22 /min Height 61.5 inches 5'1.50" Weight 252.50 lb O2 % BldC Oximetry 94 % Peak Expiratory Flow Rate 292 Estimated Peak Flow Rate [place] Body Weight 105 lb BMI (Body Mass Index) 46.9 kg/m2 Results Test Acquired Date Facility Test Result H/L Range Note Arterial Blood Gas 03/07/2020 [place] [address] [phone] ABG pH (Arterial) 7.491 units High 7.350-7.450 ABG Partial Pressure Co2 45.7 mmHg High 35.0-45.0 ABG Partial Pressure O2 92.4 mmHg Normal 75.0-100.0 ABG Total Co2 35.5 mEq/L High 23.0-31.0 ABG Hco3 34.1 mEq/L High 22.0-26.0 ABG Base Excess 9.7 High -2.0-2.0 ABG Standard Hco3 33.4 mEq/L High 22.0-26.0 ABG O2 Saturation 97.2 % Normal 95.0-99.0 Respiratory Panel 03/07/2020 [place] [address] [phone] Respiratory Panel This respiratory <SEE NOTE> 1 CBC With Differential 01/31/2020 [facility] [place] [address] [phone] White Blood Count 9.7 10 Normal 4.0-10.0 [...] 36.0-66.0 Lymph % 11.0 % Low 24.0-44.0 Campbell % 6.1 % High 0.0-5.0 Eos % 0.9 % Normal 0.0-3.0 Baso % 0.4 % Normal 0.0-1.0 Immature Granulocyte % 0.9 % Normal 0-3.0 Nucleated Red Blood Cell % 0.0 % Normal 0-0 Neutrophils # 7.8 10 Normal 1.5-8.5 Lymph # 1.1 10 Low 1.5-5.0 Campbell # 0.6 10 Normal 0.0-0.8 Eos # 0.1 10 Normal 0.0-0.5 Baso # 0.0 10 Normal 0.0-0.2 Cardiac Marker Panel 01/31/2020 [place] [address] [phone] CPK Creatine Phosphokinase 25 U/L Low 26-19 2 CK-MB Value Mass 1.1 NG/ML Normal <3.6 MB/CK Relative Index 4.40 High < Or =4 2 Troponin I < 0.02 NG/ML Normal < 0.10 3 Liver Profile 01/31/2020 [place] [address] [phone] Ast/Sgot 4 U/L Low 7-37 Alt/SGPT 10 U/L Low 12-78 Alkaline Phosphatase 53 U/L Normal 45-117 Bilirubin,Total 1.1 mg/dL High 0.2-1.0 Bilirubin,Direct 0.4 mg/dL High 0.0-0.2 Total Protein 5.7 GM/DL Low 6.4-8.2 Albumin 3.4 GM/DL Normal 3.2-5.2 Albumin/Globulin Ratio 1.5 Normal 1.2-2.2 Basic Metabolic Profile 01/31/2020 [place] [address] [phone] Glucose, Fasting 125 mg/dL High 70-100 Blood [...] 8.8-10.2 Laboratory test finding 01/31/2020 [place] [address] [phone] NT-Pro BNP 226 pg/mL Normal <450 PT & Aptt 01/31/2020 [place] [address] [phone] Prothrombin Time 23.1 seconds High 12.5-14.3 Inr 2.00 Normal 5 Partial Thromboplastin Time 33.4 seconds Normal 24.2-38.5 Cardiac Marker Panel 01/24/2020 [place] [address] [phone] CPK Creatine Phosphokinase 27 U/L Normal 26-19 2 CK-MB Value Mass 1.2 NG/ML Normal <3.6 MB/CK Relative Index 4.44 High < Or =4 6 Troponin I < 0.02 NG/ML Normal < 0.10 7 Laboratory test finding 01/23/2020 [place] [address] [phone] NT-Pro BNP 519 pg/mL High <450 Basic Metabolic Profile 01/23/2020 [place] [address] [phone] Glucose, Fasting 149 mg/dL High 70-100 Blood [...] With Differential 01/23/2020 Patient Service Ce [facility]ter [facility] [place] [address] [phone] White Blood Count 10.4 10 High 4.0-10.0 [...] 36.0-66.0 Lymph % 8.0 % Low 24.0-44.0 Campbell % 5.0 % Normal 0.0-5.0 Eos % 0.4 % Normal 0.0-3.0 Baso % 0.2 % Normal 0.0-1.0 Immature Granulocyte % 0.8 % Normal 0-3.0 Nucleated Red Blood Cell % 0.0 % Normal 0-0 Neutrophils # 8.9 10 High 1.5-8.5 Lymph # 0.8 10 Low 1.5-5.0 Campbell # 0.5 10 Normal 0.0-0.8 Eos # 0.0 10 Normal 0.0-0.5 Baso # 0.0 10 Normal 0.0-0.2 Prothrombin Time/Inr 01/23/[address] [facility] [place] [address] [phone] Prothrombin Time 26.3 seconds High 12.5-14.3 Inr 2.35 Normal 10 Liver Profile 01/23/2020 Patient [place] [address] [phone] Ast/Sgot 7 U/L Normal 7-37 Alt/SGPT 9 U/L Low 12-78 Alkaline Phosphatase 54 U/L Normal 45-117 Bilirubin,Total 0.6 mg/dL Normal 0.2-1.0 Bilirubin,Direct 0.3 mg/dL High 0.0-0.2 Total Protein 5.6 GM/DL Low 6.4-8.2 Albumin 3.1 GM/DL Low 3.2-5.2 Albumin/Globulin Ratio 1.2 Normal 1.2-2.2 Cardiac Marker Panel 01/23/[address] [facility] [place], [place] [id number] [phone] CPK Creatine Phosphokinase 43 U/L Normal 26-19 2 CK-MB Value Mass < 1.0 NG/ML Normal <3.6 MB/CK Relative Index 2.33 Normal < Or =4 11 Troponin I < 0.02 NG/ML Normal < 0.10 12 Comprehensive Metabolic Profil 01/19/2020 [facility] [phone] Glucose, Fasting 139 mg/dL High 70-100 Blood [...] Ratio 1.4 Normal 1.2-2.2 Hemoglobin A1c 01/19/2020 [facility] nter [phone] Hemoglobin A1c 6.5 % Normal 14 Estimated Average Glucose 140 mg/dL High 60-110 Istat Chem8+ Panel 12/02/2019 Patient Service [facility] [place] [address] [phone] iSTAT HCT 31.0 % Low 38.0-51.0 iSTAT Glucose 116 mg/dL High 70-105 iSTAT Sodium 140 mEq/L Normal 136-145 iSTAT Potassium 3.8 mEq/L Normal 3.5-5.1 iSTAT CA++ 4.8 mg/dL Normal 4.5-5.3 iSTAT Chloride 99 mEq/L Normal 98-109 iSTAT Co2 28.0 MM/L High 23.0-27.0 iSTAT BUN 17 mg/dL Normal 8-26 iSTAT Creatinine 1.1 mg/dL Normal 0.6-1.3 Laboratory test finding 12/02/2019 [place] [address] [phone] iSTAT Troponin 0.00 NG/ML Normal 0.00-0.08 Laboratory test finding 12/02/2019 [place] [address] [phone] NT-Pro BNP 377 pg/mL Normal <450 Phenobarbital Level 2.1 UG/ML Low 15.0-40.0 Thyroid Stimulating Hormone 1.970 uIU/ML Normal 0.358-3.740 Lactic Acid Sepsis Protocol 1.4 mmol/L Normal 0.4-2.0 15 Laboratory test finding 12/02/2019 [place] [address] [phone] Sars Covid-19 Amplification NEGATIVE Normal Nega tive 16 Venous Blood Gas 12/02/2019 Patient Service [facility] [place] [address] [phone] Venous PH 7.482 units High 7.330-7.430 Venous Partial Pressure Co2 37.5 mmHg Low 38.0-50.0 Venous Partial Pressure O2 135.7 mmHg High 30.0-50.0 Venous Total Co2 28.6 mEq/L High 24.0-28.0 Venous Hco3 27.4 mEq/L High 23.0-27.0 Venous Base Excess 3.9 High -2.0-2.0 Venous Standard Hco3 28.0 mEq/L Normal Venous O2 Saturation 98.9 % High 60.0-80.0 CBC With Differential 12/02/2019 [place] [address] [phone] White Blood Count 8.8 10 Normal 4.0-10.0 [...] 36.0-66.0 Lymph % 10.9 % Low 24.0-44.0 Campbell % 7.1 % High 0.0-5.0 Eos % 1.9 % Normal 0.0-3.0 Baso % 0.5 % Normal 0.0-1.0 Immature Granulocyte % 0.6 % Normal 0-3.0 Nucleated Red Blood Cell % 0.0 % Normal 0-0 Neutrophils # 6.9 10 Normal 1.5-8.5 Lymph # 1.0 10 Low 1.5-5.0 Campbell # 0.6 10 Normal 0.0-0.8 Eos # 0.2 10 Normal 0.0-0.5 Baso # 0.0 10 Normal 0.0-0.2 Prothrombin Time/Inr 12/02/2019 [place] [address] [phone] Prothrombin Time 19.4 seconds High 12.5-14.3 Inr 1.60 Normal 17 Liver Profile 12/02/2019 Patient Service [facility] [address] [phone] Ast/Sgot 7 U/L Normal 7-37 Alt/SGPT 11 U/L Low 12-78 Alkaline Phosphatase 59 U/L Normal 45-117 Bilirubin,Total 0.7 mg/dL Normal 0.2-1.0 Bilirubin,Direct 0.3 mg/dL High 0.0-0.2 Total Protein 5.6 GM/DL Low 6.4-8.2 Albumin 3.2 GM/DL Normal 3.2-5.2 Albumin/Globulin Ratio 1.3 Normal 1.2-2.2 CBC With Differential 11/24/2019 [place] [address] [phone] White Blood Count 8.2 10 Normal 4.0-10.0 [...] 36.0-66.0 Lymph % 10.7 % Low 24.0-44.0 Campbell % 5.6 % High 0.0-5.0 Eos % 2.1 % Normal 0.0-3.0 Baso % 0.5 % Normal 0.0-1.0 Immature Granulocyte % 0.6 % Normal 0-3.0 Nucleated Red Blood Cell % 0.0 % Normal 0-0 Neutrophils # 6.6 10 Normal 1.5-8.5 Lymph # 0.9 10 Low 1.5-5.0 Campbell # 0.5 10 Normal 0.0-0.8 Eos # 0.2 10 Normal 0.0-0.5 Baso # 0.0 10 Normal 0.0-0.2 Laboratory test finding 11/24/2019 [place] [address] [phone] Erythrocyte Sedimentation Rate 11 mm/hr Normal 0 -30 Cardiac Marker Panel 11/24/[address] [place] [address] [phone] CPK Creatine Phosphokinase 26 U/L Normal 26-19 2 CK-MB Value Mass 1.2 NG/ML Normal <3.6 MB/CK Relative Index 4.62 High < Or =4 18 Troponin I < 0.02 NG/ML Normal < 0.10 19 Liver Profile 11/24/2019 [place] [address] [phone] Ast/Sgot 7 U/L Normal 7-37 Alt/SGPT 12 U/L Normal 12-78 Alkaline Phosphatase 56 U/L Normal 45-117 Bilirubin,Total 0.9 mg/dL Normal 0.2-1.0 Bilirubin,Direct 0.3 mg/dL High 0.0-0.2 Total Protein 5.5 GM/DL Low 6.4-8.2 Albumin 3.2 GM/DL Normal 3.2-5.2 Albumin/Globulin Ratio 1.4 Normal 1.2-2.2 Basic Metabolic Profile 11/24/2019 [place] [address] [phone] Glucose, Fasting 139 mg/dL High 70-100 Blood [...] 8.8-10.2 Laboratory test finding 11/24/2019 [place] [address] [phone] NT-Pro BNP 244 pg/mL Normal <450 Thyroid Stimulating Hormone 2.460 uIU/ML Normal 0.358-3.740 C Reactive Protein Quantitativ 0.77 mg/dL High 0.00-0.30 Venous Blood Gas 10/10/2019 [place] [address] [phone] Venous PH 7.380 units Normal 7.330-7.430 Venous Partial Pressure Co2 42.1 mmHg Normal 38.0-50.0 Venous Partial Pressure O2 66.4 mmHg High 30.0-50.0 Venous Total Co2 24.3 mEq/L Normal 24.0-28.0 Venous Hco3 24.3 mEq/L Normal 23.0-27.0 Venous Base Excess -0.8 Normal -2.0-2.0 Venous Standard Hco3 23.7 mEq/L Normal Venous O2 Saturation 91.3 % High 60.0-80.0 CBC With Differential 10/10/2019 [place] [address] [phone] White Blood Count 9.0 10 Normal 4.0-10.0 [...] 36.0-66.0 Lymph % 13.0 % Low 24.0-44.0 Campbell % 5.9 % High 0.0-5.0 Eos % 0.2 % Normal 0.0-3.0 Baso % 0.2 % Normal 0.0-1.0 Immature Granulocyte % 0.7 % Normal 0-3.0 Nucleated Red Blood Cell % 0.0 % Normal 0-0 Neutrophils # 7.2 10 Normal 1.5-8.5 Lymph # 1.2 10 Low 1.5-5.0 Campbell # 0.5 10 Normal 0.0-0.8 Eos # 0.0 10 Normal 0.0-0.5 Baso # 0.0 10 Normal 0.0-0.2 Laboratory test finding 10/10/2019 [place] [address] [phone] Lactic Acid Sepsis Protocol 2.0 mmol/L Normal 0.4- 2.0 21 Cardiac Marker Panel 10/10/[address] [place] [address] [phone] CPK Creatine Phosphokinase 25 U/L Low 26-19 2 CK-MB Value Mass 1.0 NG/ML Normal <3.6 MB/CK Relative Index 4.00 Normal < Or =4 22 Troponin I < 0.02 NG/ML Normal < 0.10 23 Liver Profile 10/10/2019 [place] [address] [phone] Ast/Sgot 11 U/L Normal 7-37 Alt/SGPT 10 U/L Low 12-78 Alkaline Phosphatase 56 U/L Normal 45-117 Bilirubin,Total 0.6 mg/dL Normal 0.2-1.0 Bilirubin,Direct 0.2 mg/dL Normal 0.0-0.2 Total Protein 5.7 GM/DL Low 6.4-8.2 Albumin 3.4 GM/DL Normal 3.2-5.2 Albumin/Globulin Ratio 1.5 Normal 1.2-2.2 Basic Metabolic Profile 10/10/2019 [place] [address] [phone] Glucose, Fasting 108 mg/dL High 70-100 Blood [...] 8.8-10.2 Laboratory test finding 10/10/2019 Patient Service [place], [place] [address] [phone] NT-Pro BNP 264 pg/mL Normal <450 Thyroxine [...] 3 Troponin I Reference Interva l for [facility] LOCI: 99th Percentile= 0.00-0.045 ng/ml Risk Stratification: [...] Little GFR Left ESRD GFR <15 on [employer] 5 THERAPUTIC HUMAN INR VALUES INDICATIONS NORMAL [...] 7 Troponin I Reference Interva l for [employer]: 99th Percentile= 0.00-0.045 ng/ml Risk Stratification: <= [...] Little GFR Left ESRD GFR <15 on [employer] 9 Testing was performed on an icteric [...] 12 Troponin I Reference Interva l for [facility] [place] LOCI: 99th Percentile= 0.00-0.045 ng/ml Risk Stratification: [...] Little GFR Left ESRD GFR <15 on [employer] 14 REFERENCE RANGES: <=5.6% NORMAL 5.7-6.4% SUGGESTS [...] pathogens. DISCLAIMER: Testing was performed using the [employer] SARS-CoV-2 test. This test was developed and its performance characteristics determined by [employer]. This test has not been FDA cleared [...] 19 Troponin I Reference Interva l for [employer] LOCI: 99th Percentile= 0.00-0.045 ng/ml Risk Stratification: [...] Little GFR Left ESRD GFR <15 on [employer] 21 Y/N query for Sepsis Lactate Rule: Y 22 DIAGNOSIS CRITERIA MMB ng/ml Relative Index (RI) NON-AMI < or = 5 N/A GOYAL ZONE > 5 < or = 4 AMI > 5 > 4 23 Troponin I Reference Interva l for [facility] [place] LOCI: 99th Percentile= 0.00-0.045 ng/ml Risk Stratification: [...] Little GFR Left ESRD GFR <15 on [employer] Procedures Date Code Description Status 01/26/2020 [id number] Mammogram Completed 03/25/2018 [id number] Diabetic Foot Exam Completed 05/09/2014 [id number] Mammogram Completed 04/27/2014 [id number] Mammogram Completed 12/10/2010 [id number] Mammogram Completed Medical Devices Description No Information Available Encounters Type Date Location Provider Dx Diagnosis Office Visit 01/31/2020 11:45a Main Office Criselda Herrera FNP 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 I48.91 Unspecified atrial fibrillat ion I70.212 [facility] [place] arteries of ex trm w intrmt damaris, left leg N18.9 Chronic kidney disease, unsp ecified K12.0 Recurrent oral aphthae Office Visit 01/19/2020 2:00p Main Office Criselda Herrera FNP Z00.0 0 Encntr for general adult medical exam w/o abnormal findings 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 I48.91 Unspecified atrial fibrillat ion I70.212 [facility] [place] [facility] of ex trm w intrmt damaris, left leg E11.69 Type 2 diabetes mellitus wit h other specified complication J44.9 Chronic obstructive pulmonar y disease, unspecified Office Visit 01/11/2020 3:45p Main Office Criselda Herrera [employer] SUPPORT WORKER 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 I48.91 Unspecified atrial fibrillat ion I70.212 [facility] [place] [facility] ex trm w intrmt damaris, left leg E11.69 Type 2 diabetes mellitus wit h other specified complication J44.1 Chronic obstructive pulmonar y disease w (acute) exacerbation Office Visit 12/16/2019 1:15p Main Office Criselda Herrera YOU[employer] ACCOMMODATION SUPPORT WORKER 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 I48.91 Unspecified atrial fibrillat ion I70.212 [facility]cl [place] [facility] of ex trm w intrmt damaris, left leg E11.69 Type 2 diabetes mellitus wit h other specified complication J44.1 Chronic obstructive pulmonar y disease w (acute) exacerbation Office Visit 12/02/2019 4:00p Main Office PleskachMoey, YOU[employer] ACC[employer]MODATION SUPPORT WORKER I50.2 3 Acute on chronic systolic (congestive) heart failure Office Visit 11/24/2019 10:00a Main Office PlemarioachMoey, YOU[employer]MODATION SUPPORT WORKER L03.1 16 Cellulitis of left lower limb R06.00 Dyspnea, unspecified Office Visit 10/20/2019 1:45p Main Office CarmelaachCriselda, YOU[employer]MODATION SUPPORT WORKER 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 E11.69 Type 2 diabetes mellitus wit h other specified complication I48.91 Unspecified atrial fibrillat ion E87.6 Hypokalemia E83.42 Hypomagnesemia R60.0 Localized edema I70.212 [facility]cl [place] arteries of ex trm w intrmt damaris, left leg J44.9 Chronic obstructive pulmonar y disease, unspecified Office Visit 09/20/2019 1:00p Main Office PlemarioachCriselda, YOUTH ACCOMMODATION SUPPORT WORKER I50.4 2 Chronic combined systolic and diastolic [...] and diastolic (congestive) heart failure Criselda Herrera YOU[employer] ACC[employer]MODATION SUPPORT WORKER 01/31/2020 I48.91 Unspecified atrial fibrillation Criselda Herrera YOU[employer] ACCOMMODATION SUPPORT WORKER 01/31/2020 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, left leg Criselda Herrera YOU[employer] ACC[employer]MODATION SUPPORT WORKER 01/31/2020 N18.9 Chronic kidney disease, unspecif ied Criselda Herrera YOU[employer] ACCOMMODATION SUPPORT WORKER 01/31/2020 K12.0 Recurrent oral aphthae Criselda Herrera YOU[employer] ACCOMMODATION SUPPORT WORKER 01/28/2020 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 Pleskach, Criselda, YOU[employer] ACC[employer]MODATION SUPPORT WORKER 01/28/2020 I48.91 Unspecified atrial fibrillation Pleskach, Criselda, YOUTH ACCOMMODATION SUPPORT WORKER 01/28/2020 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, left leg Pleskach, Criselda, YOU[employer] ACC[employer]MODATION SUPPORT WORKER 01/28/2020 E11.69 Type 2 diabetes mellitus with ot her specified complication Pleskach, Criselda, YOU[employer] ACC[employer]MODATION SUPPORT WORKER 01/28/2020 J44.9 Chronic obstructive pulmonary di sease, unspecified Pleskach, Criselda, YOU[employer] ACC[employer]MODATION SUPPORT WORKER 01/19/2020 Z00.00 Encounter for genera l adult medical examination without abnormal findings Nuzhat Vega M.D. 01/19/2020 Z00.00 Encounter for genera l adult medical examination without abnormal findings Pleskach Criselda, YOUTH ACCOMMODATION SUPPORT WORKER 01/19/2020 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 01/19/2020 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 Pleskach, Criselda, YOU[employer] ACCOMMODATION SUPPORT WORKER 01/19/2020 I48.91 Unspecified atrial fibrillation Nuzhat Vega M.D. 01/19/2020 I48.91 Unspecified atrial fibrillation Pleskach, Criselda, YOU[employer] ACC[employer]MODATION SUPPORT WORKER 01/19/2020 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, left leg Nuzhat Vega M.D. 01/19/2020 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, left leg Pleskach, Criselda, YOU[employer]MODATION SUPPORT WORKER 01/19/2020 E11.69 Type 2 diabetes mellitus with ot her specified complication Nuzhat Vega M.D. 01/19/2020 E11.69 Type 2 diabetes mellitus with ot her specified complication Pleskach, Criselda, YOU[employer] ACC[employer]MODATION SUPPORT WORKER 01/19/2020 J44.9 Chronic obstructive pulmonary di sease, unspecified Nuzhat Vega M.D. 01/19/2020 J44.9 Chronic obstructive pulmonary di sease, unspecified Pleskach, Criselda, YOUTH ACCOMMODATION SUPPORT WORKER 01/11/2020 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 Pleskach, Criselda, YOUTH ACCOMMODATION SUPPORT WORKER 01/11/2020 I48.91 Unspecified atrial fibrillation Pleskach, Criselda, YOUTH ACCOMMODATION SUPPORT WORKER 01/11/2020 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, left leg Pleskach, Criselda, YOU[employer] ACC[employer]MODATION SUPPORT WORKER 01/11/2020 E11.69 Type 2 diabetes mellitus with ot her specified complication Pleskach, Criselda, YOU[employer] ACCOMMODATION SUPPORT WORKER 01/11/2020 J44.1 Chronic obstructive pulmonary disease with (acute) exacerbation Pleskach, Criselda, YOU[employer] ACCOMMODATION SUPPORT WORKER 01/10/2020 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 Pleskach, Criselda, YOUTH ACCOMMODATION SUPPORT WORKER 01/10/2020 I48.91 Unspecified atrial fibrillation Pleskach, Criselda, YOUTH ACCOMMODATION SUPPORT WORKER 01/10/2020 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, left leg Pleskach, Criselda, YOUTH ACCOMMODATION SUPPORT WORKER 01/10/2020 E11.69 Type 2 diabetes mellitus with ot her specified complication Pleskach, Criselda, YOUTH ACCOMMODATION SUPPORT WORKER 01/10/2020 J44.9 Chronic obstructive pulmonary di sease, unspecified Pleskach, Criselda, YOUTH ACCOMMODATION SUPPORT WORKER 12/16/2019 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 Pleskach, Criselda, YOUTH ACCOMMODATION SUPPORT WORKER 12/16/2019 I48.91 Unspecified atrial fibrillation Pleskach, Criselda, YOUTH ACCOMMODATION SUPPORT WORKER 12/16/2019 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, left leg Pleskach, Criselda, YOUTH ACCOMMODATION SUPPORT WORKER 12/16/2019 E11.69 Type 2 diabetes mellitus with ot her specified complication Pleskach, Criselda, YOU[employer] ACCOMMODATION SUPPORT WORKER 12/16/2019 J44.1 Chronic obstructive pulmonary disease with (acute) exacerbation Pleskach, Criselda, YOUTH ACCOMMODATION SUPPORT WORKER 12/03/2019 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 Pleskach, Criselda, YOUTH ACCOMMODATION SUPPORT WORKER 12/03/2019 I48.91 Unspecified atrial fibrillation Pleskach, Criselda, YOUTH ACCOMMODATION SUPPORT WORKER 12/03/2019 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, left leg Pleskach, Criselda, YOUTH ACCOMMODATION SUPPORT WORKER 12/03/2019 E11.69 Type 2 diabetes mellitus with ot her specified complication Pleskach Criselda, YOU[employer] ACCOMMODATION SUPPORT WORKER 12/03/2019 J44.1 Chronic obstructive pulmonary disease with (acute) exacerbation PleskachMoey, YOUTH ACCOMMODATION SUPPORT WORKER 12/02/2019 I50.23 Acute on chronic systolic (conge stive) heart failure Pleskach Criselda, YOU[employer] ACCOMMODATION SUPPORT WORKER 12/01/2019 I50.23 Acute on chronic systolic (conge stive) heart failure Pleskach Criselda, [employer] 12/01/2019 E11.69 Type 2 diabetes mellitus with ot her specified complication Pleskach, Criselda, [employer] 12/01/2019 J44.9 Chronic obstructive pulmonary di sease, unspecified Pleskach Criselda, [employer] 11/26/2019 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 Pleskach Criselda, [employer] 11/26/2019 I48.91 Unspecified atrial fibrillation Plepatricia Criselda, [employer] 11/26/2019 E11.69 Type 2 diabetes mellitus with ot her specified complication Pleskach Criselda, [employer] WORK[employer] 11/24/2019 L03.116 Cellulitis of left lower limb Pl nikolas Criselda, [facility] 11/24/2019 R06.00 Dyspnea, unspecified PleLesly gomez, [employer] 11/09/2019 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 Plepatricia Criselda, [employer] WORK[employer] 11/09/2019 E11.69 Type 2 diabetes mellitus with ot her specified complication Pleskach, Criselda, [employer] WORK[employer] 11/09/2019 I48.91 Unspecified atrial fibrillation Pleskach Criselda, [employer] 11/09/2019 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, left leg Plemarioach Criselda, [employer] 11/09/2019 J44.1 Chronic obstructive pulmonary disease with (acute) exacerbation Pleskach Criselda, [employer] WORK[employer] 10/20/2019 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 Pleskach Criselda, [employer] 10/20/2019 E11.69 Type 2 diabetes mellitus with ot her specified complication Pleskach, Criselda, [employer] 10/20/2019 I48.91 Unspecified atrial fibrillation Pleskach Criselda, [employer] WORK[employer] 10/20/2019 E87.6 Hypokalemia Pleskach, Criselda, [employer] 10/20/2019 E83.42 Hypomagnesemia Pleskach, Criselda, [employer] WORK[employer] 10/20/2019 R60.0 Localized edema Pleskach Criselda, [employer] WORK[employer] 10/20/2019 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, left leg Pleskach Criselda, [employer] 10/20/2019 J44.9 Chronic obstructive pulmonary di sease, unspecified Pleskach, Criselda, [employer] WORK[employer] 10/18/2019 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 10/18/2019 E11.69 Type 2 diabetes mellitus with ot her specified complication Nuzhat Vega M.D. 10/18/2019 I48.91 Unspecified atrial fibrillation Nuzhat Vega M.D. 10/18/2019 E87.6 Hypokalemia Nuzhat Vega M.D. 10/18/2019 E83.42 Hypomagnesemia Nuzhat Vega M.D. 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 PlemarioMoe springery, [employer] WORK[employer] 09/20/2019 E11.69 Type 2 diabetes mellitus with ot her specified complication Pleskach Criselda, [employer] WORK[employer] 09/20/2019 E87.6 Hypokalemia Pleskach Criselda, [employer] WORKER 09/20/2019 E83.42 Hypomagnesemia Pleskach, Criselda, [employer] 09/20/2019 J44.1 Chronic obstructive pulmonary disease with (acute) exacerbation Plepatricia Criselda, [employer] WORK[employer] 09/20/2019 E66.01 Morbid (severe) obesity due to e xcess calories Pleskgian Criselda, [employer] WORK[employer] 09/20/2019 I48.91 Unspecified atrial fibrillation Pleskach Criselda, [employer] WORK[employer] 09/08/2019 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 09/08/2019 E83.42 Hypomagnesemia Nuzhat Vega M.D. 09/08/2019 E87.6 Hypokalemia Nuzhat Vega M.D. 09/08/2019 J44.1 Chronic obstructive pulmonary disease with (acute) exacerbation Nuzhat Vega M.D. 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
--- OUTSIDE RECORDS SUMMARY | 2020-04-06 15:41 | CCD | Continuity of Care Document ---
Author Author Sana VEGA M.D. Organization Unknown Address [address] [place] [address] Phone [phone] Care Team Providers Care Carton Forming Machine Adjuster Name Role Phone Dhaval Manuel MD AUTM [phone] Nuzhat Vega MD AUTM [phone] Roberto Wallace MD AUTM [phone] [facility] Surgery Practice - Surgery AUTM [phone] Freddy Gallegos MD AUTM [phone] Problems Active Problems Provider Date Essential hypertension Lance Li M.D. Onset: 12/2010 Vitamin D deficiency Lance Li M.D. Onset: 11/27 Obesity Lacne Li M.D. Onset: 2010 Tobacco user Lance [...] bs 1Box Criselda Herrera FNP 12/03/2018 Ipratropium [place]/Albuterol Sulfate 0.5-2.5(3)mg/3ML Solution use 1 vial via [...] Vivian Herrera FNP 04/07/2017 Freestyle Lite Lancets [facility] use to check fasting blood glusose twice daily, dx: e11.9 200units Criselda Ruelas TERMITE TECHNICIAN 04/07/2017 Citalopram Hydrobromide 40mg Table ts 1 [...] by mouth every day 60units Vivian Herrera [facility] Xarelto 20mg Tablets 1 by mouth every day Jason Cosby [facility] History Medications Levofloxacin 750mg Tablets daily by mouth daily for 10 days 10tabs J44.9 Criselda Herrera TERMITE TECHNICIAN 0 - 01/31/2020 Torsemide 10mg Tablets take 1 tablet every morning Unknown 11/27/2019 - Levofloxacin 750mg Tablets daily by mouth daily for 10 days 10tabs Criselda Herrera FNP 0 - 10/20/2019 Immunizations CPT Code Status Date Vaccine Lot # [id number] Given 03/25/2018 Pneumococcal Vaccine [id number] Given 12/09/2017 Influenza Virus Vaccine, Quadrivalent,age 3 and up,multidose vial [id number] Given 12/04/2016 Influenza Vaccine (Fluzone)( medicare) [id number] Given 11/14/2015 Influenza Vaccine (Fluzone)( medicare) [id number] Given 10/12/2015 Prevnar 13 For Adults 54747 Given 11/17/2013 Influenza Vaccination 32766 Given 11/18/2007 Influenza Vaccination [id number] 21988 Given 12/12/2006 Influenza Vaccination [id number] Vital Signs Date Vital Result Comment 01/31/2020 12:04pm BP Systolic 70 mmHg BP Diastolic 37 mmHg Heart Rate 76 /min Body Temperature 97.1 F Respiratory Rate 20 /min Height 61.5 inches 5'1.50" Weight 208.25 lb O2 % BldC Oximetry 96 % Peak Expiratory Flow Rate 292 Estimated Peak Flow Rate [place] Body Weight 105 lb BMI (Body Mass Index) 38.7 kg/m2 01/19/2020 2:18pm BP Systolic 108 mmHg BP Diastolic 77 mmHg Heart Rate 93 /min Body Temperature 97.3 F Respiratory Rate 22 /min Height 61.5 inches 5'1.50" Weight 252.50 lb O2 % BldC Oximetry 94 % Peak Expiratory Flow Rate 292 Estimated Peak Flow Rate [place] Body Weight 105 lb BMI (Body Mass Index) 46.9 kg/m2 Results Test Acquired Date Facility Test Result H/L Range Note Arterial Blood Gas 03/07/2020 [place] [address] [phone] ABG pH (Arterial) 7.491 units High 7.350-7.450 ABG Partial Pressure Co2 45.7 mmHg High 35.0-45.0 ABG Partial Pressure O2 92.4 mmHg Normal 75.0-100.0 ABG Total Co2 35.5 mEq/L High 23.0-31.0 ABG Hco3 34.1 mEq/L High 22.0-26.0 ABG Base Excess 9.7 High -2.0-2.0 ABG Standard Hco3 33.4 mEq/L High 22.0-26.0 ABG O2 Saturation 97.2 % Normal 95.0-99.0 Respiratory Panel 03/07/2020 [place] [address] [phone] Respiratory Panel This respiratory <SEE NOTE> 1 CBC With Differential 01/31/2020 [facility] [place] [address] [phone] White Blood Count 9.7 10 Normal 4.0-10.0 [...] 36.0-66.0 Lymph % 11.0 % Low 24.0-44.0 [place] % 6.1 % High 0.0-5.0 Eos % 0.9 % Normal 0.0-3.0 Baso % 0.4 % Normal 0.0-1.0 Immature Granulocyte % 0.9 % Normal 0-3.0 Nucleated Red Blood Cell % 0.0 % Normal 0-0 Neutrophils # 7.8 10 Normal 1.5-8.5 Lymph # 1.1 10 Low 1.5-5.0 [place] # 0.6 10 Normal 0.0-0.8 Eos # 0.1 10 Normal 0.0-0.5 Baso # 0.0 10 Normal 0.0-0.2 Cardiac Marker Panel 01/31/2020 [place] [address] [phone] CPK Creatine Phosphokinase 25 U/L Low 26-19 2 CK-MB Value Mass 1.1 NG/ML Normal <3.6 MB/CK Relative Index 4.40 High < Or =4 2 Troponin I < 0.02 NG/ML Normal < 0.10 3 Liver Profile 01/31/2020 [place] [address] [phone] Ast/Sgot 4 U/L Low 7-37 Alt/SGPT 10 U/L Low 12-78 Alkaline Phosphatase 53 U/L Normal 45-117 Bilirubin,Total 1.1 mg/dL High 0.2-1.0 Bilirubin,Direct 0.4 mg/dL High 0.0-0.2 Total Protein 5.7 GM/DL Low 6.4-8.2 Albumin 3.4 GM/DL Normal 3.2-5.2 Albumin/Globulin Ratio 1.5 Normal 1.2-2.2 Basic Metabolic Profile 01/31/2020 [place] [address] [phone] Glucose, Fasting 125 mg/dL High 70-100 Blood [...] 8.8-10.2 Laboratory test finding 01/31/2020 [place] [address] [phone] NT-Pro BNP 226 pg/mL Normal <450 PT & Aptt 01/31/2020 [place] [address] [phone] Prothrombin Time 23.1 seconds High 12.5-14.3 Inr 2.00 Normal 5 Partial Thromboplastin Time 33.4 seconds Normal 24.2-38.5 Cardiac Marker Panel 01/24/2020 [place] [address] [phone] CPK Creatine Phosphokinase 27 U/L Normal 26-19 2 CK-MB Value Mass 1.2 NG/ML Normal <3.6 MB/CK Relative Index 4.44 High < Or =4 6 Troponin I < 0.02 NG/ML Normal < 0.10 7 Laboratory test finding 01/23/2020 [place] [address] [phone] NT-Pro BNP 519 pg/mL High <450 Basic Metabolic Profile 01/23/2020 [place] [address] [phone] Glucose, Fasting 149 mg/dL High 70-100 Blood [...] With Differential 01/23/2020 Patient Service Ce nter [facility] [place] [address] [phone] White Blood Count 10.4 10 High 4.0-10.0 [...] 36.0-66.0 Lymph % 8.0 % Low 24.0-44.0 [place] % 5.0 % Normal 0.0-5.0 Eos % 0.4 % Normal 0.0-3.0 Baso % 0.2 % Normal 0.0-1.0 Immature Granulocyte % 0.8 % Normal 0-3.0 Nucleated Red Blood Cell % 0.0 % Normal 0-0 Neutrophils # 8.9 10 High 1.5-8.5 Lymph # 0.8 10 Low 1.5-5.0 [place] # 0.5 10 Normal 0.0-0.8 Eos # 0.0 10 Normal 0.0-0.5 Baso # 0.0 10 Normal 0.0-0.2 Prothrombin Time/Inr 01/23/[address] [facility] [place] [address] [phone] Prothrombin Time 26.3 seconds High 12.5-14.3 Inr 2.35 Normal 10 Liver Profile 01/23/2020 Patient [place] [address] [phone] Ast/Sgot 7 U/L Normal 7-37 Alt/SGPT 9 U/L Low 12-78 Alkaline Phosphatase 54 U/L Normal 45-117 Bilirubin,Total 0.6 mg/dL Normal 0.2-1.0 Bilirubin,Direct 0.3 mg/dL High 0.0-0.2 Total Protein 5.6 GM/DL Low 6.4-8.2 Albumin 3.1 GM/DL Low 3.2-5.2 Albumin/Globulin Ratio 1.2 Normal 1.2-2.2 Cardiac Marker Panel 01/23/[address] [facility] [place], [place] [id number] [phone] CPK Creatine Phosphokinase 43 U/L Normal 26-19 2 CK-MB Value Mass < 1.0 NG/ML Normal <3.6 MB/CK Relative Index 2.33 Normal < Or =4 11 Troponin I < 0.02 NG/ML Normal < 0.10 12 Comprehensive Metabolic Profil 01/19/2020 [facility] [phone] Glucose, Fasting 139 mg/dL High 70-100 Blood [...] Ratio 1.4 Normal 1.2-2.2 Hemoglobin A1c 01/19/2020 [facility] nter [phone] Hemoglobin A1c 6.5 % Normal 14 Estimated Average Glucose 140 mg/dL High 60-110 Istat Chem8+ Panel 12/02/2019 Patient Service Cent er [facility] [place] [address] [phone] iSTAT HCT 31.0 % Low 38.0-51.0 iSTAT Glucose 116 mg/dL High 70-105 iSTAT Sodium 140 mEq/L Normal 136-145 iSTAT Potassium 3.8 mEq/L Normal 3.5-5.1 iSTAT CA++ 4.8 mg/dL Normal 4.5-5.3 iSTAT Chloride 99 mEq/L Normal 98-109 iSTAT Co2 28.0 MM/L High 23.0-27.0 iSTAT BUN 17 mg/dL Normal 8-26 iSTAT Creatinine 1.1 mg/dL Normal 0.6-1.3 Laboratory test finding 12/02/2019 [place] [address] [phone] iSTAT Troponin 0.00 NG/ML Normal 0.00-0.08 Laboratory test finding 12/02/2019 [place] [address] [phone] NT-Pro BNP 377 pg/mL Normal <450 Phenobarbital Level 2.1 UG/ML Low 15.0-40.0 Thyroid Stimulating Hormone 1.970 uIU/ML Normal 0.358-3.740 Lactic Acid Sepsis Protocol 1.4 mmol/L Normal 0.4-2.0 15 Laboratory test finding 12/02/2019 [place] [address] [phone] Sars Covid-19 Amplification NEGATIVE Normal Nega tive 16 Venous Blood Gas 12/02/2019 Patient Service [place] [address] [phone] Venous PH 7.482 units High 7.330-7.430 Venous Partial Pressure Co2 37.5 mmHg Low 38.0-50.0 Venous Partial Pressure O2 135.7 mmHg High 30.0-50.0 Venous Total Co2 28.6 mEq/L High 24.0-28.0 Venous Hco3 27.4 mEq/L High 23.0-27.0 Venous Base Excess 3.9 High -2.0-2.0 Venous Standard Hco3 28.0 mEq/L Normal Venous O2 Saturation 98.9 % High 60.0-80.0 CBC With Differential 12/02/2019 [place] [address] [phone] White Blood Count 8.8 10 Normal 4.0-10.0 [...] 36.0-66.0 Lymph % 10.9 % Low 24.0-44.0 [place] % 7.1 % High 0.0-5.0 Eos % 1.9 % Normal 0.0-3.0 Baso % 0.5 % Normal 0.0-1.0 Immature Granulocyte % 0.6 % Normal 0-3.0 Nucleated Red Blood Cell % 0.0 % Normal 0-0 Neutrophils # 6.9 10 Normal 1.5-8.5 Lymph # 1.0 10 Low 1.5-5.0 [place] # 0.6 10 Normal 0.0-0.8 Eos # 0.2 10 Normal 0.0-0.5 Baso # 0.0 10 Normal 0.0-0.2 Prothrombin Time/Inr 12/02/2019 [place] [address] [phone] Prothrombin Time 19.4 seconds High 12.5-14.3 Inr 1.60 Normal 17 Liver Profile 12/02/2019 Patient Service [facility] [place] [address] [phone] Ast/Sgot 7 U/L Normal 7-37 Alt/SGPT 11 U/L Low 12-78 Alkaline Phosphatase 59 U/L Normal 45-117 Bilirubin,Total 0.7 mg/dL Normal 0.2-1.0 Bilirubin,Direct 0.3 mg/dL High 0.0-0.2 Total Protein 5.6 GM/DL Low 6.4-8.2 Albumin 3.2 GM/DL Normal 3.2-5.2 Albumin/Globulin Ratio 1.3 Normal 1.2-2.2 CBC With Differential 11/24/2019 [place] [address] [phone] White Blood Count 8.2 10 Normal 4.0-10.0 [...] 36.0-66.0 Lymph % 10.7 % Low 24.0-44.0 [place] % 5.6 % High 0.0-5.0 Eos % 2.1 % Normal 0.0-3.0 Baso % 0.5 % Normal 0.0-1.0 Immature Granulocyte % 0.6 % Normal 0-3.0 Nucleated Red Blood Cell % 0.0 % Normal 0-0 Neutrophils # 6.6 10 Normal 1.5-8.5 Lymph # 0.9 10 Low 1.5-5.0 [place] # 0.5 10 Normal 0.0-0.8 Eos # 0.2 10 Normal 0.0-0.5 Baso # 0.0 10 Normal 0.0-0.2 Laboratory test finding 11/24/2019 [place] [address] [phone] Erythrocyte Sedimentation Rate 11 mm/hr Normal 0 -30 Cardiac Marker Panel 11/24/[address] [place] [address] [phone] CPK Creatine Phosphokinase 26 U/L Normal 26-19 2 CK-MB Value Mass 1.2 NG/ML Normal <3.6 MB/CK Relative Index 4.62 High < Or =4 18 Troponin I < 0.02 NG/ML Normal < 0.10 19 Liver Profile 11/24/2019 [place] [address] [phone] Ast/Sgot 7 U/L Normal 7-37 Alt/SGPT 12 U/L Normal 12-78 Alkaline Phosphatase 56 U/L Normal 45-117 Bilirubin,Total 0.9 mg/dL Normal 0.2-1.0 Bilirubin,Direct 0.3 mg/dL High 0.0-0.2 Total Protein 5.5 GM/DL Low 6.4-8.2 Albumin 3.2 GM/DL Normal 3.2-5.2 Albumin/Globulin Ratio 1.4 Normal 1.2-2.2 Basic Metabolic Profile 11/24/2019 [place] [address] [phone] Glucose, Fasting 139 mg/dL High 70-100 Blood [...] 8.8-10.2 Laboratory test finding 11/24/2019 [place] [address] [phone] NT-Pro BNP 244 pg/mL Normal <450 Thyroid Stimulating Hormone 2.460 uIU/ML Normal 0.358-3.740 C Reactive Protein Quantitativ 0.77 mg/dL High 0.00-0.30 Venous Blood Gas 10/10/2019 [place] [address] [phone] Venous PH 7.380 units Normal 7.330-7.430 Venous Partial Pressure Co2 42.1 mmHg Normal 38.0-50.0 Venous Partial Pressure O2 66.4 mmHg High 30.0-50.0 Venous Total Co2 24.3 mEq/L Normal 24.0-28.0 Venous Hco3 24.3 mEq/L Normal 23.0-27.0 Venous Base Excess -0.8 Normal -2.0-2.0 Venous Standard Hco3 23.7 mEq/L Normal Venous O2 Saturation 91.3 % High 60.0-80.0 CBC With Differential 10/10/2019 [place] [address] [phone] White Blood Count 9.0 10 Normal 4.0-10.0 [...] 36.0-66.0 Lymph % 13.0 % Low 24.0-44.0 [place] % 5.9 % High 0.0-5.0 Eos % 0.2 % Normal 0.0-3.0 Baso % 0.2 % Normal 0.0-1.0 Immature Granulocyte % 0.7 % Normal 0-3.0 Nucleated Red Blood Cell % 0.0 % Normal 0-0 Neutrophils # 7.2 10 Normal 1.5-8.5 Lymph # 1.2 10 Low 1.5-5.0 [place] # 0.5 10 Normal 0.0-0.8 Eos # 0.0 10 Normal 0.0-0.5 Baso # 0.0 10 Normal 0.0-0.2 Laboratory test finding 10/10/2019 [place] [address] [phone] Lactic Acid Sepsis Protocol 2.0 mmol/L Normal 0.4- 2.0 21 Cardiac Marker Panel 10/10/[address] [place] [address] [phone] CPK Creatine Phosphokinase 25 U/L Low 26-19 2 CK-MB Value Mass 1.0 NG/ML Normal <3.6 MB/CK Relative Index 4.00 Normal < Or =4 22 Troponin I < 0.02 NG/ML Normal < 0.10 23 Liver Profile 10/10/2019 [place] [address] [phone] Ast/Sgot 11 U/L Normal 7-37 Alt/SGPT 10 U/L Low 12-78 Alkaline Phosphatase 56 U/L Normal 45-117 Bilirubin,Total 0.6 mg/dL Normal 0.2-1.0 Bilirubin,Direct 0.2 mg/dL Normal 0.0-0.2 Total Protein 5.7 GM/DL Low 6.4-8.2 Albumin 3.4 GM/DL Normal 3.2-5.2 Albumin/Globulin Ratio 1.5 Normal 1.2-2.2 Basic Metabolic Profile 10/10/2019 [place] [address] [phone] Glucose, Fasting 108 mg/dL High 70-100 Blood [...] 8.8-10.2 Laboratory test finding 10/10/2019 Patient Service [place], [place] [address] [phone] NT-Pro BNP 264 pg/mL Normal <450 Thyroxine [...] 3 Troponin I Reference Interva l for [employer] LOCI: 99th Percentile= 0.00-0.045 ng/ml Risk Stratification: [...] Little GFR Left ESRD GFR <15 on NETWORK SPECIALIST 5 THERAPUTIC HUMAN INR VALUES INDICATIONS NORMAL [...] 7 Troponin I Reference Interva l for [place] [employer]: 99th Percentile= 0.00-0.045 ng/ml Risk Stratification: <= [...] Little GFR Left ESRD GFR <15 on NETWORK SPECIALIST 9 Testing was performed on an icteric [...] 12 Troponin I Reference Interva l for [employer] [place] LOCI: 99th Percentile= 0.00-0.045 ng/ml Risk Stratification: [...] Little GFR Left ESRD GFR <15 on NETWORK SPECIALIST 14 REFERENCE RANGES: <=5.6% NORMAL 5.7-6.4% SUGGESTS [...] pathogens. DISCLAIMER: Testing was performed using the [employer] SARS-CoV-2 test. This test was developed and its performance characteristics determined by [employer]. This test has not been FDA cleared [...] 19 Troponin I Reference Interva l for [place] LOCI: 99th Percentile= 0.00-0.045 ng/ml Risk Stratification: [...] Little GFR Left ESRD GFR <15 on NETWORK SPECIALIST 21 Y/N query for Sepsis Lactate Rule: Y 22 DIAGNOSIS CRITERIA MMB ng/ml Relative Index (RI) NON-AMI < or = 5 N/A GOYAL ZONE > 5 < or = 4 AMI > 5 > 4 23 Troponin I Reference Interva l for [employer] [place] LOCI: 99th Percentile= 0.00-0.045 ng/ml Risk Stratification: [...] Little GFR Left ESRD GFR <15 on NETWORK SPECIALIST Procedures Date Code Description Status 01/26/2020 [id number] Mammogram Completed 03/25/2018 [id number] Diabetic Foot Exam Completed 05/09/2014 [id number] Mammogram Completed 04/27/2014 [id number] Mammogram Completed 12/10/2010 [id number] Mammogram Completed Medical Devices Description No Information Available Encounters Type Date Location Provider Dx Diagnosis Office Visit 01/31/2020 11:45a Main Office Criselda Herrera FNP 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 I48.91 Unspecified atrial fibrillat ion I70.212 [facility] [place] [facility] ex trm w intrmt damaris, left leg N18.9 Chronic kidney disease, unsp ecified K12.0 Recurrent oral aphthae Office Visit 01/19/2020 2:00p Main Office Criselda Herrera FNP Z00.0 0 Encntr for general adult medical exam w/o abnormal findings 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 I48.91 Unspecified atrial fibrillat ion I70.212 [place] [facility] of ex trm w intrmt damaris, left leg E11.69 Type 2 diabetes mellitus wit h other specified complication J44.9 Chronic obstructive pulmonar y disease, unspecified Office Visit 01/11/2020 3:45p Main Office Criselda Herrera TERMITE TECHNICIAN 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 I48.91 Unspecified atrial fibrillat ion I70.212 [facility] [facility] [place] trm w intrmt damaris, left leg E11.69 Type 2 diabetes mellitus wit h other specified complication J44.1 Chronic obstructive pulmonar y disease w (acute) exacerbation Office Visit 12/16/2019 1:15p Main Office Criselda Herrera TERMITE TECHNICIAN 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 I48.91 Unspecified atrial fibrillat ion I70.212 [place] [facility] ex trm w intrmt damaris, left leg E11.69 Type 2 diabetes mellitus wit h other specified complication J44.1 Chronic obstructive pulmonar y disease w (acute) exacerbation Office Visit 12/02/2019 4:00p Main Office PleskachMoey, TERMITE TECHNICIAN I50.2 3 Acute on chronic systolic (congestive) heart failure Office Visit 11/24/2019 10:00a Main Office PlemarioachMoey, TERMITE TECHNICIAN L03.1 16 Cellulitis of left lower limb R06.00 Dyspnea, unspecified Office Visit 10/20/2019 1:45p Main Office CarmelaachCriselda, TERMITE TECHNICIAN 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 E11.69 Type 2 diabetes mellitus wit h other specified complication I48.91 Unspecified atrial fibrillat ion E87.6 Hypokalemia E83.42 Hypomagnesemia R60.0 Localized edema I70.212 [place]scl [place] [facility] of ex trm w intrmt damaris, left leg J44.9 Chronic obstructive pulmonar y disease, unspecified Office Visit 09/20/2019 1:00p Main Office PlemarioachCriselda, TERMITE TECHNICIAN I50.4 2 Chronic combined systolic and diastolic [...] and diastolic (congestive) heart failure Criselda Herrera TERMITE TECHNICIAN 01/31/2020 I48.91 Unspecified atrial fibrillation Criselda Herrera TERMITE TECHNICIAN 01/31/2020 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, left leg Criselda Herrera TERMITE TECHNICIAN 01/31/2020 N18.9 Chronic kidney disease, unspecif ied Criselda Herrera TERMITE TECHNICIAN 01/31/2020 K12.0 Recurrent oral aphthae Criselda Herrera TERMITE TECHNICIAN 01/28/2020 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 Pleskach, Criselda, TERMITE TECHNICIAN 01/28/2020 I48.91 Unspecified atrial fibrillation Pleskach, Criselda, TERMITE TECHNICIAN 01/28/2020 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, left leg Pleskach, Criselda, TERMITE TECHNICIAN 01/28/2020 E11.69 Type 2 diabetes mellitus with ot her specified complication Pleskach, Criselda, TERMITE TECHNICIAN 01/28/2020 J44.9 Chronic obstructive pulmonary di sease, unspecified Pleskach, Criselda, TERMITE TECHNICIAN 01/19/2020 Z00.00 Encounter for genera l adult medical examination without abnormal findings Nuzhat Vega M.D. 01/19/2020 Z00.00 Encounter for genera l adult medical examination without abnormal findings Pleskach Criselda, TERMITE TECHNICIAN 01/19/2020 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 01/19/2020 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 Pleskach, Criselda, TERMITE TECHNICIAN 01/19/2020 I48.91 Unspecified atrial fibrillation Nuzhat Vega M.D. 01/19/2020 I48.91 Unspecified atrial fibrillation Pleskach, Criselda, TERMITE TECHNICIAN 01/19/2020 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, left leg Nuzhat Vega M.D. 01/19/2020 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, left leg Pleskach, Crsielda, TERMITE TECHNICIAN 01/19/2020 E11.69 Type 2 diabetes mellitus with ot her specified complication Nuzhat Vega M.D. 01/19/2020 E11.69 Type 2 diabetes mellitus with ot her specified complication Pleskach, Criselda, TERMITE TECHNICIAN 01/19/2020 J44.9 Chronic obstructive pulmonary di sease, unspecified Nuzhat Vega M.D. 01/19/2020 J44.9 Chronic obstructive pulmonary di sease, unspecified Pleskach, Criselda, TERMITE TECHNICIAN 01/11/2020 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 Pleskach, Criselda, TERMITE TECHNICIAN 01/11/2020 I48.91 Unspecified atrial fibrillation Pleskach, Criselda, TERMITE TECHNICIAN 01/11/2020 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, left leg Pleskach, Criselda, TERMITE TECHNICIAN 01/11/2020 E11.69 Type 2 diabetes mellitus with ot her specified complication Pleskach, Criselda, TERMITE TECHNICIAN 01/11/2020 J44.1 Chronic obstructive pulmonary disease with (acute) exacerbation Pleskach, Criselda, TERMITE TECHNICIAN 01/10/2020 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 Pleskach, Criselda, TERMITE TECHNICIAN 01/10/2020 I48.91 Unspecified atrial fibrillation Pleskach, Criselda, TERMITE TECHNICIAN 01/10/2020 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, left leg Pleskach, Criselda, TERMITE TECHNICIAN 01/10/2020 E11.69 Type 2 diabetes mellitus with ot her specified complication Pleskach, Criselda, TERMITE TECHNICIAN 01/10/2020 J44.9 Chronic obstructive pulmonary di sease, unspecified Pleskach, Criselda, TERMITE TECHNICIAN 12/16/2019 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 Pleskach, Criselda, TERMITE TECHNICIAN 12/16/2019 I48.91 Unspecified atrial fibrillation Pleskach, Criselda, TERMITE TECHNICIAN 12/16/2019 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, left leg Pleskach, Criselda, TERMITE TECHNICIAN 12/16/2019 E11.69 Type 2 diabetes mellitus with ot her specified complication Pleskach, Criselda, TERMITE TECHNICIAN 12/16/2019 J44.1 Chronic obstructive pulmonary disease with (acute) exacerbation Pleskach, Criselda, TERMITE TECHNICIAN 12/03/2019 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 Pleskach, Criselda, TERMITE TECHNICIAN 12/03/2019 I48.91 Unspecified atrial fibrillation Pleskach, Criselda, TERMITE TECHNICIAN 12/03/2019 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, left leg Pleskach, Criselda, TERMITE TECHNICIAN 12/03/2019 E11.69 Type 2 diabetes mellitus with ot her specified complication Pleskach Criselda, TERMITE TECHNICIAN 12/03/2019 J44.1 Chronic obstructive pulmonary disease with (acute) exacerbation PleskachMoey, TERMITE TECHNICIAN 12/02/2019 I50.23 Acute on chronic systolic (conge stive) heart failure Pleskach Criselda, TERMITE TECHNICIAN 12/01/2019 I50.23 Acute on chronic systolic (conge stive) heart failure Pleskach Criselda, TERMITE TECHNICIAN 12/01/2019 E11.69 Type 2 diabetes mellitus with ot her specified complication Pleskach, Criselda, TERMITE TECHNICIAN 12/01/2019 J44.9 Chronic obstructive pulmonary di sease, unspecified Pleskach Crsielda, TERMITE TECHNICIAN 11/26/2019 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 Pleskach Criselda, TERMITE TECHNICIAN 11/26/2019 I48.91 Unspecified atrial fibrillation Plepatricia Criselda, TERMITE TECHNICIAN 11/26/2019 E11.69 Type 2 diabetes mellitus with ot her specified complication Pleskach Criselda, TERMITE TECHNICIAN 11/24/2019 L03.116 Cellulitis of left lower limb Pl nikolas Criselda, [facility] 11/24/2019 R06.00 Dyspnea, unspecified PleLesly gomez, TERMITE TECHNICIAN 11/09/2019 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 Plepatricia Criselda, TERMITE TECHNICIAN 11/09/2019 E11.69 Type 2 diabetes mellitus with ot her specified complication Pleskach, Criselda, TERMITE TECHNICIAN 11/09/2019 I48.91 Unspecified atrial fibrillation Pleskach Criselda, TERMITE TECHNICIAN 11/09/2019 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, left leg Plemarioach Criselda, TERMITE TECHNICIAN 11/09/2019 J44.1 Chronic obstructive pulmonary disease with (acute) exacerbation Pleskach Criselda, TERMITE TECHNICIAN 10/20/2019 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 Pleskach Criselda, TERMITE TECHNICIAN 10/20/2019 E11.69 Type 2 diabetes mellitus with ot her specified complication Pleskach, Criselda, TERMITE TECHNICIAN 10/20/2019 I48.91 Unspecified atrial fibrillation Pleskach Criselda, TERMITE TECHNICIAN 10/20/2019 E87.6 Hypokalemia Pleskach, Criselda, TERMITE TECHNICIAN 10/20/2019 E83.42 Hypomagnesemia Pleskach, Criselda, TERMITE TECHNICIAN 10/20/2019 R60.0 Localized edema Pleskach Criselda, TERMITE TECHNICIAN 10/20/2019 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, left leg Pleskach Criselda, TERMITE TECHNICIAN 10/20/2019 J44.9 Chronic obstructive pulmonary di sease, unspecified Pleskach, Criselda, TERMITE TECHNICIAN 10/18/2019 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 10/18/2019 E11.69 Type 2 diabetes mellitus with ot her specified complication Nuzhat Vega M.D. 10/18/2019 I48.91 Unspecified atrial fibrillation Nuzhat Vega M.D. 10/18/2019 E87.6 Hypokalemia Nuzhat Vega M.D. 10/18/2019 E83.42 Hypomagnesemia Nuzhat Vega M.D. 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 PlemarioMoe springery, TERMITE TECHNICIAN 09/20/2019 E11.69 Type 2 diabetes mellitus with ot her specified complication Pleskach Criselda, TERMITE TECHNICIAN 09/20/2019 E87.6 Hypokalemia Pleskach Criselda, TERMITE TECHNICIAN 09/20/2019 E83.42 Hypomagnesemia Pleskach, Criselda, TERMITE TECHNICIAN 09/20/2019 J44.1 Chronic obstructive pulmonary disease with (acute) exacerbation Plepatricia Criselda, TERMITE TECHNICIAN 09/20/2019 E66.01 Morbid (severe) obesity due to e xcess calories Pleskgian Criselda, TERMITE TECHNICIAN 09/20/2019 I48.91 Unspecified atrial fibrillation Pleskach Criselda, TERMITE TECHNICIAN 09/08/2019 I50.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) [...] the presence of CHF Scheduled 0 03/17/[id number] [place] [address] [phone] [facility] referring for PAD, LLE redness and swelling and pain Closed 12/07/2019 [address] [facility], [address] [place] [address] [phone] [facility] referring for PAD, LLE redness and swelling and pain Patient Declined 12/21/2019 [address] [facility], [address] [place] [address] [phone]
[2020-04-06] MEDS ORDERED: SPIR-10 (15:42)
[2020-04-06] MEDS ORDERED: MAGN400T3 (15:42)
--- OUTSIDE RECORDS SUMMARY | 2020-04-06 15:44 | CCD ---
Author Author [facility] Organization [facility] Address Unknown Phone Unavailable Care Team Providers Care Executive Officer Name Role Phone Zachary Langley MD Unavailable [...] Jeff Hernández MD Unavailable Unavailable Pleskach, Criselda COMMERCIAL TELLER Unavailable Unavailable Pleskach, Criselda COMMERCIAL TELLER Unavailable Unavailable Pleskach, Criselda COMMERCIAL TELLER Unavailable Unavailable Pleskach, Criselda COMMERCIAL TELLER Unavailable Unavailable Pleskach, Criselda COMMERCIAL TELLER Unavailable Unavailable Pleskach, Criselda COMMERCIAL TELLER Unavailable Unavailable Pleskach, Criselda COMMERCIAL TELLER Unavailable Unavailable Pleskach, Criselda COMMERCIAL TELLER Unavailable Unavailable Pleskach, Criselda COMMERCIAL TELLER Unavailable Unavailable Pleskach, Criselda COMMERCIAL TELLER Unavailable Unavailable Pleskach, Criselda COMMERCIAL TELLER Unavailable Unavailable Pleskach, Criselda COMMERCIAL TELLER Unavailable Unavailable Pleskach, Criselda COMMERCIAL TELLER Unavailable Unavailable Pleskach, Criselda COMMERCIAL TELLER Unavailable Unavailable Pleskach, Criselda COMMERCIAL TELLER Unavailable Unavailable Pleskach, Criselda COMMERCIAL TELLER Unavailable Unavailable Pleskach, Criselda COMMERCIAL TELLER Unavailable Unavailable Pleskach, Criselda COMMERCIAL TELLER Unavailable Unavailable Pleskach, Criselda COMMERCIAL TELLER Unavailable Unavailable Pleskach, Criselda COMMERCIAL TELLER Unavailable Unavailable Pleskach, Criselda COMMERCIAL TELLER Unavailable Unavailable Pleskach, Criselda COMMERCIAL TELLER Unavailable Unavailable Pleskach, Criselda COMMERCIAL TELLER Unavailable Unavailable Pleskach, Criselda COMMERCIAL TELLER Unavailable Unavailable Pleskach, Criselda COMMERCIAL TELLER Unavailable Unavailable Pleskach, Criselda COMMERCIAL TELLER Unavailable Unavailable Pleskach, Criselda COMMERCIAL TELLER Unavailable Unavailable Pleskach, Criselda COMMERCIAL TELLER Unavailable Unavailable Pleskach, Criselda COMMERCIAL TELLER Unavailable Unavailable Pleskach, Criselda COMMERCIAL TELLER Unavailable Unavailable Brantley, M Barratt PA Unavailable [...] Unavailable NAVEEN JACKSON MD Unavailable Unavailable NAVEEN AJCKSON MD Unavailable Unavailable NAVEEN JACKSON MD Unavailable [...] is protected by Article 27-F of the [facility] Public Health law. If you continue you may have access to information: Regarding HIV / AIDS; Provided by facilities licensed or operated by the [facility] Office of Mental Health; or Provided by the [facility] Office for People With Developmental Disabilities. If such information is present, then the following [facility] mandated warning applies: This information has [...] law may result in a fine or snf sentence or both. A general authorization for the release of medical or other information is NOT sufficient authorization for further disc losure. Family History Family Member Name Family Member Gender Family Member Status Date o f Status Description Data Source(s) Unknown Male Problem [facility] ([facility] Unknown Male Problem [facility] ([facility]) in 1985 Unknown Unknown Problem [facility] ([facility] Unknown Male Problem [facility] ([facility] Encounters Encounter Providers Location Date Indications Data Source(s ) Office Visit Attender: Jeffy DIANA Physical Therapy 12:00:00 PM EST MED[facility] ([facility]) Outpatient Attender: Criselda AUGUSTIN Main Office 03/22/2020 0 2:15:00 PM EST [facility] ([facility] Office Visit Attender: Jeffy DIANA Physical Therapy 12:45:00 PM EST [facility] ([facility]) Outpatient Attender: Criselda AUGUSTIN Main Office 01/31/2020 1 0:45:00 AM EST [facility] ([facility] Outpatient Attender: Criselda AUGUSTIN Main Office 01/19/2020 0 1:00:00 PM EST [facility] ([facility] Outpatient Attender: NAVEEN FLANAGAN.ZAIDA-SJP.ZAIDA 0 12:00:00 AM EST - 01/19/2020 04:09:59 PM EST [facility] Outpatient Attender: Criselda Herrera [facility] Main Office 01/11/2020 0 2:45:00 PM EST [facility] ([facility] Outpatient Attender: Criselda Plepatricia [facility] Main Office 12/16/2019 0 1:15:00 PM EDT [facility] ([facility] Outpatient Attender: Criselda Plepatricia [facility] Main Office 12/02/2019 0 4:00:00 PM EDT [facility] ([facility] Outpatient Attender: Criselda Sharon [facility] Main Office 11/24/2019 1 0:00:00 AM EDT [facility] ([facility] Outpatient Attender: Criselda Plepatricia [facility] Main Office 10/20/2019 0 1:45:00 PM EDT [facility] ([facility] Outpatient Attender: Criselda Merlingian [facility] Main Office 09/20/2019 0 1:00:00 PM EDT [facility] ([facility] Outpatient Attender: Criselda Sharon [facility] Main Office 09/06/2019 1 1:30:00 AM EDT [facility] ([facility] Outpatient Referrer: NAVEEN JACKSON MD 08/03/2019 05:39:00 AM E DT [facility] Outpatient Attender: Edgar Hyman/Vipul/Alex/Pam roque 07/26/2019 10:30:00 AM EDT [facility] ([facility] Outpatient Attender: Nuzhat Langley MD Main Office 07/21/2019 10:40:0 0 AM EDT [facility] ([facility] Outpatient Referrer: NAVEEN JACKSON MD 07/20/2019 08:50:00 AM E DT [facility] Outpatient Referrer: PROVIDER SYSTEM IN 07/16/2019 0 2:14:00 PM EDT L leg cellulitis [facility] L leg cellulitis Outpatient Referrer: NAVEEN JACKSON MD 07/08/2019 04:52:00 AM E DT [facility] Outpatient Attender: Criselda Sharon COMMERCIAL TELLER Main Office 07/06/2019 0 1:00:00 PM EDT [facility] ([facility] Outpatient Referrer: NAVEEN FLANAGAN.CT-SJP.SYR 07/06/2019 08:57:33 AM EDT [facility] Outpatient Attender: NAVEEN JACKSON MDConsultant: NAVEEN JACKSON MD S SHERI.ZAIDA-SJP.ZAIDA 06/25/2019 02:18:30 PM EDT - 06/25/2019 03:24:46 PM EDT [facility] Outpatient SJИрина.CT-SJP.SYR 06/18/2019 11:40:10 AM EDT [facility] Outpatient Referrer: NAVEEN JACKSON MD SJИрина.ZAIDA-SJP.ZAIDA 0 10:40:26 AM EDT - 06/17/2019 12:12:23 PM EDT [facility] Outpatient Attender: NAVEEN JACKSON MDReferrer: NAVEEN JACKSON MD SJP .ZAIDA-SJP.ZAIDA 06/17/2019 10:39:30 AM EDT - 06/17/2019 01:42:16 PM EDT [facility] Outpatient Attender: NAVEEN JACKSON MD SJP-SJP.GVR 0 12:00:00 AM EDT - 06/11/2019 08:59:39 AM EDT [facility] Outpatient Referrer: NAVEEN JACKSON MD 06/07/2019 06:37:00 AM E DT [facility] Outpatient Attender: Km Bolanos/Vipul/Alex/Chauncey ndl 06/02/2019 10:30:00 AM EDT [facility] ([facility] OFFICE OUTPATIENT NEW 30 MINUTES Attender: Jeffy DIANA Ph ysical Therapy 05/21/2019 02:00:00 PM EDT [facility] ([facility]) Outpatient Referrer: NAVEEN JACKSON MD 05/19/2019 10:16:00 AM E DT [facility] Medications Medication Brand Name Start Date Product Form Dose Route Admi nistrative Instructions Pharmacy Instructions Status Indications Reaction Description Data Source(s) Semi-Electric Adjustable Bed 03/27/2020 12:00:00 AM EST active [facility] ([facility] rivaroxaban 15 MG Oral Tablet [Xarelto] Xarelto 03/17/2020 12:00:0 0 AM EST ORAL active [facility] ([facility] Magnesium Oxide 400 MG Oral Tablet Magnesium Oxide 03/17/2020 12:00 :00 AM EST ORAL active [facility] ([facility] First-Mouthwash BLM 01/31/2020 12:00:00 AM EST completed [facility] ([facility] Levofloxacin 750 [...] 01/12/2020 12:00:00 AM EST 20 mg Oral acti ve Take 20 mg by mouth 2 (two) times a day [facility] Metformin hydrochloride 500 MG Oral Tablet metFORMIN ( GLUCOPHAGE) 500 MG tablet metFORMIN (GLUCOPHAGE) 500 MG tablet 01/11/2020 12:00:00 AM EST active [facility] Albuterol 0.833 MG/ML / Ipratropium Brom danial 0.167 MG/ML Inhalant Solution ipratropium-albuterol (DUO-NEB) 0.5-2.5 mg/mL nebulizer ipratropium-albuterol (DUO-NEB) 0.5-2.5 mg/mL nebulizer 12/27/2019 12:00:00 AM EST active [facility] Bacitracin 0.5 UNT/MG / Neomycin 0.0035 MG/MG / Polymyxin B 10 UNT/MG Topical Ointment Ajnzmllc-Urrmsehbai-Ghesqucoh (FIRST AID ANTIBIOTIC) 3.5-400-5000 MG- UNIT OINT Ekuhkvih-Syosvlijoa-Idxzxccac (FIRST AID ANTIBIOTIC) 3.5-400-5000 MG- UNIT OINT 12/27/2019 12:00:00 AM EST active [facility] Fluconazole 100 MG Oral Tablet fluconazole (DIFLUCAN) 100 MG tablet fluconazole (DIFLUCAN) 100 MG tablet 12/08/2019 12:00:00 AM EDT aborted [facility] Metolazone 2.5 MG Oral Tablet Metolazone 12/08/2019 12:00:00 AM EDT ORAL active [facility] ([facility] torsemide 20 MG Oral Tablet Torsemide 12/08/2019 12:00:00 AM EDT active [facility] ([facility] 20 mg 11/27/2019 12:00:00 AM [...] P.C.) Docusate Sodium 50 MG / sennosides, MCC 8.6 MG Oral Ta blet Senna-Docusate Sodium [...] MOUTH FOUR TIMES A DAY SOLD: 07/04/2019 [facility] Lidocaine Pain Relief Lidocaine Pain Relief [...] prior to the Furosemide once a day. [facility] potassium chloride SA (K-DUR,KLOR-CON) 20 MEQ tablet [id number] 06/25/2019 12:00:00 AM EDT aborted [facility] Prednisone 5 MG Oral Tablet predniSONE (DELTASONE) 5 M G tablet predniSONE (DELTASONE) 5 MG tablet 06/25/2019 12:00:00 AM EDT 5 mg Oral active Chronic bronchitis, unspecified chronic bronchitis type Take 1 tablet (5 mg total) by mouth daily [facility] Chronic bronchitis, unspecified chronic bronchitis type Potassium Chloride 20 MEQ Extended Relea se Oral Tablet Potassium Chloride ER 20 MEQ TBCR Potassium Chloride ER 20 MEQ TBCR 06/25/2019 12:00:00 AM EDT 20 meq Oral active Take 1 tablet (20 mE q total) by mouth daily [facility] rivaroxaban 20 MG Oral Tablet rivaroxaban (XARELTO) 20 MG TABS rivaroxaban (XARELTO) 20 MG TABS 06/25/2019 12:00:00 AM EDT 20 mg Oral active Atrial fibrillation, unspecified type Take 1 tablet (20 mg total) b y mouth daily [facility] Atrial fibrillation, unspecified type Furosemide 40 MG Oral Tablet furosemide (LASIX) 40 MG tablet furosemide (LASIX) 40 MG tablet 06/11/2019 12:00:00 AM EDT 40 mg Oral abort ed Take 1 tablet (40 mg total) by mouth 2 (two) times a day [facility] Prednisone 10 MG Oral Tablet Prednisone 06/02/2019 12:00:00 AM EDT completed [facility] ([facility]) Prednisone 10 MG Oral Tablet Prednisone 06/02/2019 12:00:00 AM EDT completed [facility] ([facility] tizanidine 4 MG Oral Tablet [Zanaflex] Zanaflex 05/21/2019 12:00:00 AM EDT ORAL active [facility] ([facility]) Acetaminophen 500 MG Oral Tablet Acetaminophen 03/17/2019 12:00:00 AM EST completed [facility] ([facility] tizanidine 4 MG Oral Tablet tiZANidine (ZANAFLEX) 4 MG tablet tiZANidine (ZANAFLEX) 4 MG tablet 4 mg Oral aborted Take 4 mg by mouth every 6 (six) hours as needed [facility] 60 ACTUAT Fluticasone propionate 0.5 MG/ ACTUAT / salmeterol 0.05 MG/ACTUAT Dry Powder Inhaler fluticasone-salmeterol (ADVAIR) 500-50 MCG/DOSE DISKUS fluticasone-salmeterol (ADVAIR) 500-50 MCG/DOSE DISKUS 1 {puff} Inhalation aborted Inhale 1 puff 2 (two) amy es a day [facility] Insurance Providers Payer name Policy type / Coverage type Policy ID Covered constitution party ID Covered constitution party's relationship to sellers Policy Sellers Plan Information FOR LIFE [id number] MEDICARE [id number] SP [id number] FOR LIFE U [id number] Self [id number] MEDICARE A [id number] Self [id number] MEDICARE C [id number] S [id number] FOR LIFE O [id number] S [id number] MEDICARE [id number] MEDICARE [id number] Susanna [id number] Spo [id number] SELF PAY [facility] [id number] [id number] [facility] O [id number] S [id number] FOR LIFE [id number] FOR LIFE U [id number] Self [id number] MEDICARE A [id number] Self [id number] A MEDICARE [id number] Susanna [id number] A For Life Medigap Part B [id number] Family Dependent [id number] [place] Primary [id number] Self [id number] For Life Medigap Part B [id number] Family Dependent [id number] [place] Primary [id number] Self [id number] For Life Reg 1 Medigap Part B [id number] Family Depen dent [id number] Medicare - NGS Medicare Primary [id number] Self [id number] For Life Medigap Part B [id number] Family Dependent [id number] [place] Primary [id number] Self [id number] For Life Medigap Part B [id number] Family Dependent [id number] [place] Primary [id number] Self [id number] For Life Reg 1 Medigap Part B [id number] Family Depen dent [id number] Medicare - NGS Medicare Primary [id number] Self [id number] For Life Medigap Part B [id number] Family Dependent [id number] [place] Primary [id number] Self [id number] MEDICARE [id number] SP [id number] A For Life Reg 1 Medigap Part B [id number] Family Depen dent [id number] Medicare - NGS Medicare Primary [id number] Self [id number] MEDICARE C UNAVAILABLE S UNAVAILA BLE MEDICARE C [id number] S [id number] A FOR LIFE [id number] [id number] For Life Reg 1 Medigap Part B [id number] Family Depen dent [id number] Medicare - NGS Medicare Primary [id number] Self [id number] [place] MEDICARE PART B C [id number] S [id number] For Life Medigap Part B [id number] Family Dependent [id number] [place] Primary [id number] Self [id number] For Life Medigap Part B [id number] Family Dependent [id number] [place] Primary [id number] Self [id number] For Life Medigap Part B [id number] Family Dependent [id number] [place] Primary [id number] Self [id number] PI PI MEDICARE PI PI [id number] Spo [id number] For Life Medigap Part B [id number] Family Dependent [id number] [place] Primary [id number] Self [id number] For Life Reg 1 Medigap Part B [id number] Family Depen dent [id number] Medicare - NGS Medicare Primary [id number] Self [id number] For Life - WPS Medigap Part B [id number] Self [id number] Medicare (Part A) Medicare Primary [id number] Self [id number] Medicare (Part B) Medicare Primary [id number] Self [id number] For Life Medigap Part B [id number] Family Dependent [id number] [place] Primary [id number] Self [id number] For Life - WPS Medigap Part B [id number] Self [id number] Medicare (Part A) Medicare Primary [id number] Self [id number] Medicare (Part B) Medicare Primary [id number] Self [id number] For Life Medigap Part B [id number] Family Dependent [id number] [place] Primary [id number] Self [id number] S ADMINISTRATORS, [facility] C [id number] S [id number] For Life Medigap Part B [id number] Family Dependent [id number] [place] Medicare Primary [id number] Self [id number] For Life Medigap Part B [id number] Family Dependent [id number] [place] Primary [id number] Self [id number] For Life Medigap Part B [id number] Family Dependent [id number] [place] Primary [id number] Self [id number] For Life WPS Medigap Part B [id number] Self [id number] Medicare [place] Gov't Servi Medicare Primary [id number] Self [id number] For Life Medigap Part B [id number] Family Dependent [id number] [place] Primary [id number] Self [id number] FOR LIFE [id number] SP [id number] For Life Medigap Part B Family Dependent [place] Primary Self FOR LIFE [id number] SP [id number] FOR LIFE [id number] SP [id number] MEDICARE [id number] SP [id number] A RETIREE MEDICAL INSURANCE PLAN [id number] SP [id number] [facility] CHARLI [facility] [id number] SP [id number] [facility] [id number] A [id number] Problems, Conditions, and Diagnoses Code Display Name Description Problem Type Effective Dates Data Source(s) M79.604 Pain in both lower extremities Pain in both lower extr emities [id number] 01/19/2020 12:00:00 AM EST [facility] Chronic obstructive pulmonary disease wi th (acute) exacerbation Chronic obstructive pulmonary disease with (acute) exacerbation Problem 10/20/2019 12:00:00 AM EDT [facility] ([facility] [id number] Type 2 diabetes mellitus in obese Type 2 diabete s mellitus in obese Problem 10/20/2019 12:00:00 AM EDT [facility] ([facility] [id number] 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 Problem 10/20/2019 12:00:00 AM EDT [facility] ([facility] [id number] 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 Problem 10/20/19 12:00:00 AM EDT [facility] ([facility] I87.2 Venous stasis dermatitis of both lower e xtremities Venous stasis dermatitis of both lower extremities [id number] 07/31/2019 12:00:00 AM EDT [facility] R26.81 Unsteady gait Unsteady gait [id number] 07/31/2019 12:00:00 AM EDT [facility] R54 Frailty Frailty [id number] 07/31/2019 12:00:00 AM ED T [facility] L03.116 Cellulitis of left lower extremity Cellulitis of left lower extremity [id number] 07/31/2019 12:00:00 AM EDT [facility] [id number] Acute on chronic systolic heart failure Acute on chronic systolic heart failure Problem 06/02/2019 12:00:00 AM EDT [facility]UR[facility] ([facility] ) L leg cellulitis L leg cellulitis Diagnosis 07/16/2019 02 :14:00 PM EDT [facility] D69.6 Thrombocytopenia, unspecified Thrombocytopenia, unspec ified Diagnosis 06/25/2019 02:18:30 PM EDT [facility] E66.9 Obesity, unspecified Obesity, unspecified Diagnosis 06/25/2019 02:18:30 PM EDT [facility] E11.9 Type 2 diabetes mellitus without complic ations Type 2 diabetes mellitus without complic Diagnosis 06/25/2019 02:18:30 PM EDT [facility] Z95.0 Presence of cardiac pacemaker Presence of cardiac pace maker Diagnosis 06/25/2019 02:18:30 PM EDT [facility] J42 Unspecified chronic bronchitis Unspecified chronic bro nchitis Diagnosis 06/25/2019 02:18:30 PM EDT [facility] F41.8 Other specified anxiety disorders Other specifie d anxiety disorders Diagnosis 06/25/2019 02:18:30 PM EDT [facility] 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 Coronary atherosclerosis due to calcifie Diagnosis 06/25/2019 02:18:30 PM EDT [facility] I25.10 Atherosclerotic heart diseas e of [place] coronary artery without angina pectoris Atherosclerotic heart disease of [place] Diagnosis 06/25/2019 02:18:30 PM EDT [facility] I49.5 Sick sinus syndrome Sick sinus syndrome Diagnosis 0 06/25/2019 02:18:30 PM EDT [facility] I48.92 Unspecified atrial flutter Unspecified atrial flutter Diagnosis 06/25/2019 02:18:30 PM EDT [facility] I10 Essential (primary) hypertension Essential (primary) h ypertension Diagnosis 06/25/2019 02:18:30 PM EDT [facility] R06.02 Shortness of breath Shortness of breath Diagnosis 0 06/25/2019 02:18:30 PM EDT [facility] I50.30 Unspecified diastolic (congestive) heart failure Unspecified diastolic (congestive) heart Diagnosis 06/25/2019 02:18:30 PM EDT [facility] R91.8 Other nonspecific abnormal finding of larry ng field Other nonspecific abnormal finding of larry Diagnosis 06/10/2019 02:21:51 PM EDT [facility] Surgeries/Procedures Procedure Description Date Indications Data Source(s) ARTHROCENTESIS ASPIR&/INJECTION MAJOR JT/BURSA 021 12:00:00 AM EST [facility] ([facility] Mammogram 01/26/2020 12:00:00 AM EST M [facility] ([facility] ECG ROUTINE ECG W/LEAST 12 LDS W/I&R POCT AMB EKG Routine 01/19/2020 5:19 PM EST Atrial flutter, unspecified type 01/19/2020 10:19:00 PM EST Atrial flutter, unspecified type [facility] Atrial flutter, unspecified type BLOOD COUNT COMPLETE AUTO&AUTO DIFRNTL WBC COUNT CBC AND DIFFER ENTIAL Routine 12/08/2019 12/08/2019 12:00:00 AM EDT [facility] BASIC METABOLIC PANEL CALCIUM TOTAL BASIC METABOLIC PANEL Routine 12/08/2019 12/08/2019 12:00:00 AM EDT [facility] ARTHROCENTESIS ASPIR&/INJECTION MAJOR JT/BURSA 020 12:00:00 AM EDT MEDDARLENE ([facility]) X-Ray Hip Unilateral With Pelvis 2-3 Views 05/21/2019 12:00:00 AM EDT [facility] ([facility] RADIOLOGIC EXAM KNEE COMPLETE 4/MORE VIEWS 05/21/2019 12:00:00 AM EDT [facility] ([facility]) Results ID Date Data Source [id number] 03/07/2020 11:43:00 PM EST [facility] ([facility] Name Value Range Interpretation Code Description Data Luz rce(s) Supporting Document(s) ABG pH (Arterial) 7.491 units 7.350-7.450 MEDEN T ([facility] ABG Partial Pressure O2 92.4 mmHg 75.0-100.0 M EDENT ([facility] ABG Partial Pressure Co2 45.7 mmHg 35.0-45.0 [facility] ([facility] ABG Base Excess 9.7 [facility] ([facility] ABG Hco3 34.1 meq/L 22.0-26.0 [facility] ([facility] ABG Total Co2 35.5 meq/L 23.0-31.0 [facility] ([facility] ABG O2 Saturation 97.2 % 95.0-99.0 [facility] ([facility] ABG Standard Hco3 33.4 meq/L 22.0-26.0 [facility] ([facility] ID Date Data Source [id number] 03/07/2020 09:42:00 PM EST [facility] ([facility] Name Value Range Interpretation Code Description Data Luz rce(s) Supporting Document(s) Respiratory Panel Laboratory test result [facility] ([facility] This respiratory PCR panel detects Influ alison A H1, H3 and 2009 H1 viruses, Influenza B virus, Resp iratory Syncytial Virus, Human metapneumovirus, Parainfluenza virus 1, 2, 3 and 4, Adenovirus, Rhinovirus/Enterovirus, Coronavirus HKU1, NL63, OC43, 229E and SARS-CoV-2 (COVID 19), Bordetella pertussis, Bordetella parapertussis, Mycoplasma pneumoniae and Chlamydia pneumoniae. NEGATIVE by MULTIPLEXED NUCLEIC ACID PCR SARS-CoV-2 (COVID 19) NEGATIVE - SARS-CoV-2 (COVID19) ID Date Data Source [id number] 03/07/2020 09:42:00 PM EST [facility] Name Value Range Interpretation Code Description Data Luz rce(s) Supporting Document(s) SARS-CoV-2 (COVID 19) NEGATIVE - SARS-CoV-2 (COVID19) [facility] This lab was ordered by [facility] a nd reported by [facility]. ID Date Data Source [id number] 01/31/2020 01:53:00 PM EST [facility] ([facility] [...] [facility] ID Date Data Source [id number] 01/31/2020 01:53:00 PM EST [facility] ([facility] Name Value Range Interpretation Code Description Data Luz rce(s) Supporting Document(s) Natriuretic peptide.B prohormone N-Terminal [Mass/volu me] in Serum or Plasma 226 pg/mL [facility] ([facility] ID Date Data Source [id number] 01/31/2020 01:53:00 PM EST [facility] ([facility] [...] Little GFR Left</content>
<content>ESRD GFR <15 on CONSTRUCTION FIELD ENGINEER</content>
<content></content> Creatinine For GFR 1.48 mg/dL 0.55-1.30 [facility] ([facility] Blood Urea Nitrogen 30 mg/dL 7-18 [facility] ([facility] Sodium Level 141 meq/L 136-145 [facility] ([facility] Potassium Serum 3.4 meq/L 3.5-5.1 [facility] ([facility] Carbon Dioxide Level 38 meq/L 21-32 [facility] ([facility] Chloride Level 99 meq/L 98-107 [facility] ([facility] Anion Gap 4 meq/L 8-16 [facility] ([facility] Calcium Level 9.5 mg/dL 8.8-10.2 [facility] ([facility] ID Date Data Source [id number] 01/31/2020 01:53:00 PM EST [facility] ([facility] Name Value Range Interpretation Code Description Data Luz rce(s) Supporting Document(s) Alkaline Phosphatase 53 U/L 45-117 [facility] ([facility] Ast/Sgot 4 U/L 7-37 [facility] Alt/SGPT 10 U/L 12-78 [facility] Total Protein 5.7 GM/DL 6.4-8.2 [facility] ([facility] Bilirubin,Direct 0.4 mg/dL 0.0-0.2 [facility] ([facility] Bilirubin,Total 1.1 mg/dL 0.2-1.0 [facility] ([facility] Albumin/Globulin Ratio 1.5 1.2-2.2 [facility] ([facility] Albumin 3.4 GM/DL 3.2-5.2 [facility] ([facility] ID Date Data Source [id number] 01/31/2020 01:53:00 PM EST [facility] ([facility] Name Value Range Interpretation Code Description Data Luz e(s) Supporting Document(s) CPK Creatine Phosphokinase 25 U/L 26-192 [facility] MB/CK Relative Index 4.40 [facility] ([facility] <content>DIAGNOSIS CRITERIA</content>
<content>MMB ng/ml Relative Index (RI)</content>
<content>NON-AMI < or = 5 N/A</content>
<content>GOYAL ZONE > 5 < or = 4</content>
<content>AMI > 5 > 4</content>
<content></content> CK-MB Value Mass 1.1 ng/mL [facility] Troponin I Laboratory test result [facility] ([facility] <content>Troponin I Reference Interval f or Siemens [place] LOCI:</content>
<content></content>
<content>99th Percentile= 0.00-0.045 ng/ml</content>
<content></content>
<content>Risk Stratification:</content>
<content><= 0.10 ng/ml Decreased Risk for Adverse Clinical</content>
<content>Events.</content>
<content>0.10-1.50 ng/ml Increased Risk for Adverse Clinical</content>
<content>Events. Evaluation of additional</content>
<content>criterion and/or repeat testing in 2-6</content>
<content>hours is suggested to rule out myocardial</content>
<content>damage.</content>
<content>>= 1.50 ng/ml Indicative of Myocardial Injury.</content>
<content></content> ID Date Data Source [id number] 01/31/2020 01:53:00 PM EST [facility] ([facility] Name Value Range Interpretation Code Description Data Luz rce(s) Supporting Document(s) Red Blood Count 3.88 10 4.00-5.40 [facility] White Blood Count 9.7 10 4.0-10.0 [facility] ([facility] Hemoglobin 10.8 g/dL 12.0-15.5 [facility] ([facility] Mean Corpuscular Volume 90.7 fl 80.0-96.0 M [facility] ([facility] Hematocrit 35.2 % 36.0-47.0 [facility] ([facility] Red Cell Distribution Width 16.8 % 11.5-14.5 [facility] Mean Corpuscular Hemoglobin 27.8 pg 27.0-33.0 [facility] ([facility] Mean Corpuscular HGB Conc 30.7 g/dL 32.0-36.5 [facility] Lymph % 11.0 % 24.0-44.0 [facility] ([facility] Neutrophils % 80.7 % 36.0-66.0 [facility] Platelet Count, Automated 144 10 150-450 [facility] Baso % 0.4 % 0.0-1.0 [facility] Eos % 0.9 % 0.0-3.0 [facility] Barrow % 6.1 % 0.0-5.0 [facility] Nucleated Red Blood Cell % 0.0 % 0-0 [facility] Immature Granulocyte % 0.9 % 0-3.0 [facility] Neutrophils # 7.8 10 1.5-8.5 [facility] Lymph # 1.1 10 1.5-5.0 [facility] Eos # 0.1 10 0.0-0.5 [facility] Barrow # 0.6 10 0.0-0.8 [facility] Baso # 0.0 10 0.0-0.2 [facility] ID Date Data Source [id number] 01/24/2020 12:25:00 AM EST [facility] (Nuzhat Langley [...] <content>Troponin I Reference Interval f or Siemens [place] LOCI:</content>
<content></content>
<content>99th Percentile= 0.00-0.045 ng/ml</content>
<content></content>
<content>Risk Stratification:</content>
<content><= 0.10 ng/ml Decreased Risk for Adverse Clinical</content>
<content>Events.</content>
<content>0.10-1.50 ng/ml Increased Risk for Adverse Clinical</content>
<content>Events. Evaluation of additional</content>
<content>criterion and/or repeat testing in 2-6</content>
<content>hours is suggested to rule out myocardial</content>
<content>damage.</content>
<content>>= 1.50 ng/ml Indicative of Myocardial Injury.</content>
<content></content> ID Date Data Source [id number] 01/23/2020 09:51:00 PM EST [facility] ([facility] Name Value Range Interpretation Code Description Data Luz rce(s) Supporting Document(s) CPK Creatine Phosphokinase 43 U/L 26-192 [facility] Troponin I Laboratory test result [facility] ([facility] <content>Troponin I Reference Interval f or Siemens [place] LOCI:</content>
<content></content>
<content>99th Percentile= 0.00-0.045 ng/ml</content>
<content></content>
<content>Risk Stratification:</content>
<content><= 0.10 ng/ml Decreased Risk for Adverse Clinical</content>
<content>Events.</content>
<content>0.10-1.50 ng/ml Increased Risk for Adverse Clinical</content>
<content>Events. Evaluation of additional</content>
<content>criterion and/or repeat testing in 2-6</content>
<content>hours is suggested to rule out myocardial</content>
<content>damage.</content>
<content>>= 1.50 ng/ml Indicative of Myocardial Injury.</content>
<content></content> CK-MB Value Mass Laboratory test result [facility] ([facility] MB/CK Relative Index 2.33 [facility] ([facility] <content>DIAGNOSIS CRITERIA</content>
<content>MMB ng/ml Relative Index (RI)</content>
<content>NON-AMI < or = 5 N/A</content>
<content>GOYAL ZONE > 5 < or = 4</content>
<content>AMI > 5 > 4</content>
<content></content> ID Date Data Source [id number] 01/23/2020 09:51:00 PM EST [facility] ([facility] Name Value Range Interpretation Code Description Data Luz rce(s) Supporting Document(s) Ast/Sgot 7 U/L 7-37 [facility] Alt/SGPT 9 U/L 12-78 [facility] Alkaline Phosphatase 54 U/L 45-117 [facility] ([facility] Bilirubin,Total 0.6 mg/dL 0.2-1.0 [facility] ([facility] Albumin 3.1 GM/DL 3.2-5.2 [facility] ([facility] Bilirubin,Direct 0.3 mg/dL 0.0-0.2 [facility] ([facility] Total Protein 5.6 GM/DL 6.4-8.2 [facility] ([facility] Albumin/Globulin Ratio 1.2 1.2-2.2 [facility] ([facility] ID Date Data Source [id number] 01/23/2020 09:51:00 PM EST [facility] ([facility] Name Value Range Interpretation Code Description Data Luz e(s) Supporting Document(s) Prothrombin Time 26.3 s 12.5-14.3 [...] MYOCARDIAL INFARCTION 2.5-3.5 ID Date Data Source [id number] 01/23/2020 09:51:00 PM EST [facility] ([facility] Name Value Range Interpretation Code Description Data [facility](s) Supporting Document(s) Red Blood Count 3.74 10 4.00-5.40 [facility] ([facility] White Blood Count 10.4 10 4.0-10.0 [facility] ([facility] Mean Corpuscular Volume 90.9 fl 80.0-96.0 M [facility] ([facility] Hematocrit 34.0 % 36.0-47.0 [facility] ([facility] Hemoglobin 10.5 g/dL 12.0-15.5 [facility] ([facility] Platelet Count, Automated 162 10 150-450 [facility] Mean Corpuscular Hemoglobin 28.1 pg 27.0-33.0 [facility] ([facility] Mean Corpuscular HGB Conc 30.9 g/dL 32.0-36.5 [facility] ([facility] Red Cell Distribution Width 16.8 % 11.5-14.5 [facility] ([facility] Neutrophils % 85.6 % 36.0-66.0 [facility] Barrow % 5.0 % 0.0-5.0 [facility] ([facility] Lymph % 8.0 % 24.0-44.0 [facility] Immature Granulocyte % 0.8 % 0-3.0 [facility] ([facility] Eos % 0.4 % 0.0-3.0 [facility] ([facility] Baso % 0.2 % 0.0-1.0 [facility] Lymph # 0.8 10 1.5-5.0 [facility] Nucleated Red Blood Cell % 0.0 % 0-0 [facility] Neutrophils # 8.9 10 1.5-8.5 [facility] Eos # 0.0 10 0.0-0.5 [facility] ([facility] B[place] # 0.5 10 0.0-0.8 [facility] ([facility] Baso # 0.0 10 0.0-0.2 [facility] ([facility] ID Date Data Source [id number] 01/23/2020 09:51:00 PM EST [facility] ([facility] Name Value Range Interpretation Code Description Data Luz rce(s) Supporting Document(s) Creatinine For GFR 1.61 mg/dL 0.55-1.30 [facility] ([facility] Blood Urea Nitrogen 24 mg/dL 7-18 [facility] ([facility] Glucose, Fasting 149 mg/dL 70-100 [facility] Glomerular Filtration Rate 32.9 [facility] ([facility] <content>Units are mL/min/1.73 m2</content>
<content></content>
<content>Chronic Kidney Disease Staging per [facility]:</content>
<content></content>
<content>Stage I & II GFR >=60 Normal to Mildly Decreased</content>
<content>Stage III GFR 30- 59 Moderately Decreased</content>
<content>Stage IV GFR 15-29 Severely Decreased</content>
<content>Stage V GFR <15 Very Little GFR Left</content>
<content>ESRD GFR <15 on [employer]STRUCTION FIELD [employer]INE[employer]</content>
<content></content> Sodium Level 139 meq/L 136-145 [facility] [...] [facility] ID Date Data Source [id number] 01/23/2020 09:51:00 PM EST [facility] ([facility] Name Value Range Interpretation Code Description Data Luz rce(s) Supporting Document(s) Natriuretic peptide.B prohormone N-Terminal [Mass/volu me] in Serum or Plasma 519 pg/mL [facility] ID Date Data Source [id number] 01/19/2020 02:58:00 PM EST [facility] ([facility] Name Value Range Interpretation Code Description Data Luz rce(s) Supporting Document(s) Hemoglobin A1c/Hemoglobin.total in Blood 6.5 % [facility] ([facility] <content>REFERENCE RANGES:</content><br/ ><content></content>
<content><=5.6% NORMAL</content>
<content>5.7-6.4% SUGGESTS IMPAIRED GLUCOSE METABOLISM/PREDIABETIC</content>
<content>>= 6.5% ABNORMAL</content>
<content></content> Estimated Average Glucose 140 mg/dL 60-110 [facility] ([facility] ID Date Data Source [id number] 01/19/2020 02:58:00 PM EST [facility] ([facility] Name Value Range Interpretation Code Description Data Luz e(s) Supporting Document(s) Glucose, Fasting 139 mg/dL 70-100 [facility] ([facility] Creatinine For GFR 1.54 mg/dL 0.55-1.30 [facility] ([facility] Blood Urea Nitrogen 21 mg/dL 7-18 [facility] ([facility] Glomerular Filtration Rate 34.7 [facility] ([facility] <content>Units are mL/min/1.73 m2</content>
<content></content>
<content>Chronic Kidney Disease Staging per [facility]:</content>
<content></content>
<content>Stage I & II GFR >=60 Normal to Mildly Decreased</content>
<content>Stage III GFR 30- 59 Moderately Decreased</content>
<content>Stage IV GFR 15-29 Severely Decreased</content>
<content>Stage V GFR <15 Very Little GFR Left</content>
<content>ESRD GFR <15 on CONSTRUCTION FIELD ENGINEER</content>
<content></content> Sodium Level 138 meq/L 136-145 [facility] Potassium Serum 3.2 meq/L 3.5-5.1 [facility] ([facility] Carbon Dioxide Level 37 meq/L 21-32 [facility] ([facility] Chloride Level 95 meq/L 98-107 [facility] Anion Gap 6 meq/L 8-16 [facility] Alt/SGPT 9 U/L 12-78 [facility] Calcium Level 8.9 mg/dL 8.8-10.2 [facility] ([facility] Ast/Sgot Laboratory test result 7-37 [facility] ([facility] Bilirubin,Total 1.0 mg/dL 0.2-1.0 [facility] ([facility] Alkaline Phosphatase 59 U/L 45-117 [facility] ([facility] Total Protein 5.7 GM/DL 6.4-8.2 [facility] ([facility] Albumin/Globulin Ratio 1.4 1.2-2.2 [facility] ([facility] Albumin 3.3 GM/DL 3.2-5.2 [facility] ([facility] ID Date Data Source [id number] 12/02/2019 07:46:00 PM EDT [facility] ([facility] Name Value Range Interpretation Code Description Data Luz e(s) Supporting Document(s) Laboratory test finding (navigational concept) [...] pathogens. DISCLAIMER: Testing was performed using the [employer] SARS-CoV-2 test. This test was developed and its performance characteristics determined by [employer]. This test has not been FDA cleared [...] or revoked sooner. ID Date Data Source [id number] 12/02/2019 07:06:00 PM EDT [facility] ([facility]uzhat Langley [...] [facility] ID Date Data Source [id number] 12/02/2019 07:06:00 PM EDT [facility] ([facility] Name Value Range Interpretation Code Description Data Luz rce(s) Supporting Document(s) Inr 1.60 [facility] ([facility] THERAPUTIC HUMAN INR VALUES INDICATIONS NORMAL RANGES PROPHYLAXIS/TREATMENT OF: VENOUS THROMBOSIS 2.0-3.0 PULMONARY EMBOLISM 2.0-3.0 PREVENTION OF SYSTEMIC EMBOLISM FROM: TISSUE HEART VALVES 2.0-3.0 ACUTE MYOCARDIAL INFARCTION 2.0-3.0 VALVULAR HEART DISEASE 2.0-3.0 ATRIAL FIBRILLATION 2.0-3.0 MECHANICAL VALVES(HIGH RISK) 2.5-3.5 RECURRENT MYOCARDIAL INFARCTION 2.5-3.5 Prothrombin Time 19.4 s 12.5-14.3 [facility] ([facility] ID Date Data Source [id number] 12/02/2019 07:06:00 PM EDT [facility] ([facility] Name Value Range Interpretation Code Description Data Luz rce(s) Supporting Document(s) Red Blood Count 3.67 10 4.00-5.40 [facility] ([facility] Hemoglobin 10.0 g/dL 12.0-15.5 [facility] ([facility] White Blood Count 8.8 10 4.0-10.0 [facility] ([facility] Mean Corpuscular Hemoglobin 27.2 pg 27.0-33.0 [facility] ([facility] Hematocrit 32.9 % 36.0-47.0 [facility] [...] % 24.0-44.0 [facility] ([facility] Barrow % 7.1 % 0.0-5.0 [facility] ([facility] Neutrophils % 79.0 % 36.0-66.0 [facility] ([facility] Eos % 1.9 % 0.0-3.0 [facility] ([facility] Baso % 0.5 % 0.0-1.0 [facility] ([facility] Nucleated Red Blood Cell % 0.0 % 0-0 [facility] Immature Granulocyte % 0.6 % 0-3.0 [facility] ([facility] Neutrophils # 6.9 10 1.5-8.5 [facility] ([facility] Eos # 0.2 10 0.0-0.5 [facility] ([facility] Barrow # 0.6 10 0.0-0.8 [facility] ([facility] Lymph # 1.0 10 1.5-5.0 [facility] ([facility] Baso # 0.0 10 0.0-0.2 [facility] ([facility] ID Date Data Source [id number] 12/02/2019 07:06:00 PM EDT [facility] ([facility] Name Value Range Interpretation Code Description Data Luz rce(s) Supporting Document(s) Venous Partial Pressure O2 135.7 mmHg 30.0-50.0 [facility] ([facility] Venous PH 7.482 units 7.330-7.430 [facility] ([facility] Venous Partial Pressure Co2 37.5 mmHg 38.0-50.0 [facility] ([facility] Venous Base Excess 3.9 [facility] ([facility]uel [facility] Venous Total Co2 28.6 meq/L 24.0-28.0 [facility] ( [facility] Venous Hco3 27.4 meq/L 23.0-27.0 [facility] ([facility] Venous O2 Saturation 98.9 % 60.0-80.0 [facility] ([facility] Venous Standard Hco3 28.0 meq/L [facility] ( [facility] ID Date Data Source [id number] 12/02/2019 07:06:00 PM EDT [facility] ([facility] Name Value Range Interpretation Code Description Data Luz rce(s) Supporting Document(s) Natriuretic peptide.B prohormone N-Terminal [Mass/volu me] in Serum or Plasma 377 pg/mL [facility] Thyrotropin [Units/volume] in Serum or Plasma 1.970 uIU/ML 0.358-3.74 0 [facility] ([facility] Phenobarbital [Mass/volume] in Serum or Plasma 2.1 UG/ML 15.0-40.0 [facility] ([facility] Lactate [Mass/volume] in Serum or Plasma 1.4 mmol/L 0.4-2.0 [facility] ([facility] Y/N query for Sepsis Lactate Rule: Y ID Date Data Source [id number] 12/02/2019 06:37:00 PM EDT [facility] ([facility] Name Value Range Interpretation Code Description Data Luz rce(s) Supporting Document(s) Troponin I.cardiac [Mass/volume] in Serum or Plasma 0.00 ng/mL 0.00-0 .08 [facility] ([facility] ID Date Data Source [id number] 12/02/2019 06:35:00 PM EDT [facility] (Nuzhat Langley [...] [facility] ID Date Data Source [id number] 11/24/2019 01:17:00 PM EDT [facility] (Nuzhat Langley [...] ([facility] ID Date Data Source [id number] 11/24/2019 01:17:00 PM EDT [facility] ([facility] Name Value Range Interpretation Code Description Data Luz rce(s) Supporting Document(s) Creatinine For GFR 1.27 mg/dL 0.55-1.30 [facility] ([facility] Glucose, Fasting 139 mg/dL 70-100 [facility] Blood Urea Nitrogen 17 mg/dL 7-18 [facility] ([facility] Potassium Serum 4.0 meq/L 3.5-5.1 [facility] Glomerular Filtration Rate 43.4 [facility] ([facility] <content>Units are mL/min/1.73 m2</content>
<content></content>
<content>Chronic Kidney Disease Staging per [facility]:</content>
<content></content>
<content>Stage I & II GFR >=60 Normal to Mildly Decreased</content>
<content>Stage III GFR 30- 59 Moderately Decreased</content>
<content>Stage IV GFR 15-29 Severely Decreased</content>
<content>Stage V GFR <15 Very Little GFR Left</content>
<content>ESRD GFR <15 on [employer]STRUCTION FIELD ENGINEER</content>
<content></content> Sodium Level 140 meq/L 136-145 [facility] Carbon Dioxide Level 30 meq/L 21-32 [facility] ([facility] Chloride Level 105 meq/L 98-107 [facility] Anion Gap 5 meq/L 8-16 [facility] ([facility] Calcium Level 9.2 mg/dL 8.8-10.2 [facility] ([facility] ID Date Data Source [id number] 11/24/2019 01:17:00 PM EDT [facility] ([facility] Name Value Range Interpretation Code Description Data [facility](s) Supporting Document(s) Alt/SGPT 12 U/L 12-78 [facility] ([facility] Ast/Sgot 7 U/L 7-37 [facility] Bilirubin,Direct 0.3 mg/dL 0.0-0.2 [facility] ([facility] Alkaline Phosphatase 56 U/L 45-117 [facility] ([facility] Bilirubin,Total 0.9 mg/dL 0.2-1.0 [facility] ([facility] Total Protein 5.5 GM/DL 6.4-8.2 [facility] ([facility] Albumin 3.2 GM/DL 3.2-5.2 [facility] ([facility] Albumin/Globulin Ratio 1.4 1.2-2.2 [facility] ([facility] ID Date Data Source [id number] 11/24/2019 01:17:00 PM EDT [facility] ([facility] Name Value Range Interpretation Code Description Data [facility](s) Supporting Document(s) CPK Creatine Phosphokinase 26 U/L 26-192 [facility] CK-MB Value Mass 1.2 ng/mL [facility] Troponin I Laboratory test result [facility] ([facility] <content>Troponin I Reference Interval f or Siemens [place] LOCI:</content>
<content></content>
<content>99th Percentile= 0.00-0.045 ng/ml</content>
<content></content>
[...] > 4</content>
<content></content> ID Date Data Source [id number] 11/24/2019 01:17:00 PM EDT [facility] ([facility] Name Value Range Interpretation Code Description Data Luz rce(s) Supporting Document(s) Erythrocyte sedimentation rate by 2H Westergren method 11 mm/hr 0-3 0 [facility] ID Date Data Source [id number] 11/24/2019 01:17:00 PM EDT [facility] ([facility] Name Value Range Interpretation Code Description Data Luz rce(s) Supporting Document(s) Red Blood Count 3.61 10 4.00-5.40 [facility] ([facility] Hemoglobin 9.7 g/dL 12.0-15.5 [facility] ([facility] White Blood Count 8.2 10 4.0-10.0 [facility] ([facility] Mean Corpuscular Volume 90.6 fl 80.0-96.0 M [facility] ([facility] Hematocrit 32.7 % 36.0-47.0 [facility] ([facility] Mean Corpuscular HGB Conc 29.7 g/dL 32.0-36.5 [facility] ([facility] Mean Corpuscular Hemoglobin 26.9 pg 27.0-33.0 [facility] Red Cell Distribution Width 18.0 % 11.5-14.5 [facility] Lymph % 10.7 % 24.0-44.0 [facility] ([facility] Platelet Count, Automated 158 10 150-450 [facility] Neutrophils % 80.5 % 36.0-66.0 [facility] Eos % 2.1 % 0.0-3.0 [facility] ([facility] Baso % 0.5 % 0.0-1.0 [facility] ([facility] [place] % 5.6 % 0.0-5.0 [facility] ([facility] Immature Granulocyte % 0.6 % 0-3.0 [facility] Nucleated Red Blood Cell % 0.0 % 0-0 [facility] Neutrophils # 6.6 10 1.5-8.5 [facility] ([facility] Lymph # 0.9 10 1.5-5.0 [facility] ([facility] [place]arrow # 0.5 10 0.0-0.8 [facility] ([facility] Baso # 0.0 10 0.0-0.2 [facility] ([facility] Eos # 0.2 10 0.0-0.5 [facility] ([facility] ID Date Data Source [id number] 10/10/2019 02:08:00 AM EDT [facility] ([facility] Name Value Range Interpretation Code Description Data Luz rce(s) Supporting Document(s) Thyrotropin [Units/volume] in Serum or Plasma 1.340 uIU/ML 0.358-3.74 0 [facility] ([facility] Thyroxine (T4) [Mass/volume] in Serum or Plasma 8.4 ug/dL 4.5-12.0 [facility] ([facility] Natriuretic peptide.B prohormone N-Terminal [Mass/volu me] in Serum or Plasma 264 pg/mL [facility] ([facility] ID Date Data Source [id number] 10/10/2019 02:08:00 AM EDT [facility] ([facility] Name Value Range Interpretation Code Description Data Luz rce(s) Supporting Document(s) Blood Urea Nitrogen 17 mg/dL 7-18 [facility] (Cullen [facility] Glucose, Fasting 108 mg/dL 70-100 [facility] ([facility] Creatinine For GFR 1.25 mg/dL 0.55-1.30 [facility] ([facility] Sodium Level 141 meq/L 136-145 [facility] ([facility] Glomerular Filtration Rate 44.2 [facility] ([facility] <content>Units are mL/min/1.73 m2</content>
<content></content>
<content>Chronic Kidney Disease Staging per [facility]:</content>
<content></content>
<content>Stage I & II GFR >=60 Normal to Mildly Decreased</content>
<content>Stage III GFR 30- 59 Moderately Decreased</content>
<content>Stage IV GFR 15-29 Severely Decreased</content>
<content>Stage V GFR <15 Very Little GFR Left</content>
<content>ESRD GFR <15 on [employer]</content>
<content></content> Potassium Serum 3.9 meq/L 3.5-5.1 [facility] ([facility] Anion Gap 6 meq/L 8-16 [facility] ([facility] Chloride Level 106 meq/L 98-107 [facility] ([facility] Carbon Dioxide Level 29 meq/L 21-32 [facility] (Sukumar [facility] Calcium Level 9.6 mg/dL 8.8-10.2 [facility] ([facility] ID Date Data Source [id number] 10/10/2019 02:08:00 AM EDT [facility] ([facility] Name Value Range Interpretation Code Description Data Luz rce(s) Supporting Document(s) Alt/SGPT 10 U/L 12-78 [facility] ([facility] Ast/Sgot 11 U/L 7-37 [facility] ([facility]hat [facility] Bilirubin,Direct 0.2 mg/dL 0.0-0.2 [facility] ([facility] Bilirubin,Total 0.6 mg/dL 0.2-1.0 [facility] ([facility] Alkaline Phosphatase 56 U/L 45-117 [facility] (Sukumar [facility] Albumin 3.4 GM/DL 3.2-5.2 [facility] ([facility]hat [facility] Total Protein 5.7 GM/DL 6.4-8.2 [facility] ([facility] Albumin/Globulin Ratio 1.5 1.2-2.2 [facility] ([facility] ID Date Data Source [id number] 10/10/2019 02:08:00 AM EDT [facility] (Nuzhat Langley [...] <content>Troponin I Reference Interval f or Siemens [place] LOCI:</content>
<content></content>
<content>99th Percentile= 0.00-0.045 ng/ml</content>
<content></content>
<content>Risk Stratification:</content>
<content><= 0.10 ng/ml Decreased Risk for Adverse Clinical</content>
<content>Events.</content>
<content>0.10-1.50 ng/ml Increased Risk for Adverse Clinical</content>
<content>Events. Evaluation of additional</content>
<content>criterion and/or repeat testing in 2-6</content>
<content>hours is suggested to rule out myocardial</content>
<content>damage.</content>
<content>>= 1.50 ng/ml Indicative of Myocardial Injury.</content>
<content></content> ID Date Data Source [id number] 10/10/2019 02:08:00 AM EDT [facility] ([facility] Name Value Range Interpretation Code Description Data Luz rce(s) Supporting Document(s) Lactate [Mass/volume] in Serum or Plasma 2.0 mmol/L 0.4-2.0 [facility] ([facility] Y/N query for Sepsis Lactate Rule: Y ID Date Data Source [id number] 10/10/2019 02:08:00 AM EDT [facility] ([facility] Name Value Range Interpretation Code Description Data Luz rce(s) Supporting Document(s) White Blood Count 9.0 10 4.0-10.0 [facility] ([facility] Hematocrit 33.5 % 36.0-47.0 [facility] ([facility] Red Blood Count 3.79 10 [...] % 36.0-66.0 [facility] ([facility] Barrow % 5.9 % 0.0-5.0 [facility] ([facility] Lymph % 13.0 % 24.0-44.0 [facility] ([facility] Eos % 0.2 % 0.0-3.0 [facility] ([facility] Immature Granulocyte % 0.7 % 0-3.0 [facility] ([facility] Nucleated Red Blood Cell % 0.0 % 0-0 [facility] ([facility] Baso % 0.2 % 0.0-1.0 [facility] ([facility] Neutrophils # 7.2 10 1.5-8.5 [facility] ([facility] Lymph # 1.2 10 1.5-5.0 [facility] ([facility] Barrow # 0.5 10 0.0-0.8 [facility] ([facility] Eos # 0.0 10 0.0-0.5 [facility] ([facility] Baso # 0.0 10 0.0-0.2 [facility] ([facility] ID Date Data Source [id number] 10/10/2019 02:08:00 AM EDT [facility] ([facility] [...] [facility] ID Date Data Source [id number] 09/06/2019 08:45:00 AM EDT [facility] ([facility]) Name Value Range Interpretation Code Description Data Luz rce(s) Supporting Document(s) PDFReport Laboratory test result [facility] ([facility]) FVC-Pre 1.51 L [facility] ([facility], ) FVC-Pred 2.49 L [facility] ([facility], ) FVC-LLN 1.84 L [facility] ([facility], ) FVC-%Pred-Pre 60 L [facility] ([facility], ) Fev1-Pred 1.86 L [facility] ([facility], ) Fev1-%Pred-Pre 67 L [facility] ([facility], ) Fev1-Pre 1.26 L [facility] ([facility], ) Fev6-Pre 1.51 L [facility] ([facility], ) Fev1-LLN 1.31 L [facility] ([facility]) Fev6-Pred 2.36 L [facility] ([facility]) Wma1znt-Ltb 83 % [facility] ([facility], ) Kgk2aoi-Hypk 74 % [facility] ([facility], ) Fev6-LLN 1.72 L [facility] ([facility], ) Fev6-%Pred-Pre 64 L [facility] ([facility], ) Lzm3uvh-Keri 95 % [facility] ([facility]) Arb9law-Tof 100 % [facility] ([facility]) Xsf1lxi-WZX 65 % [facility] ([facility]) Zor2cpd-%Pred-Pre 111 % [facility] ([facility], ) Kth1kqj-%Pred-Pre 105 % [facility] ([facility]) FEFMax-Pre 1.95 L/E/sec [facility] ([facility], ) FEFMax-Pred 4.77 L/E/sec [facility] ([facility]) FEFMax-%Pred-Pre 40 L/E/sec [facility] ([facility]) FEFMax-LLN 3.16 L/E/sec [facility] ([facility], ) Tav9105-Jewj 1.45 L/E/sec [facility] ([facility]) Jyr0936-Fgg 1.39 L/E/sec [facility] ([facility]) Hur5553-DBM 0.28 L/E/sec [facility] ([facility]) ExpTime-Pre 6.05 sec [facility] ([facility]) Ypw0854-%Pred-Pre 96 L/E/sec [facility] ([facility]) Cdv9tkj4-Qfn 83 % [facility] ([facility]) Riz2awi0-GTH 69 % [facility] ([facility]) Gex9vub6-%Pred-Pre 106 % [facility] ([facility]) Awi5cjx4-Iafl 78 % [facility] ([facility]) ID Date Data Source [id number] 08/29/2019 11:39:00 AM EDT [facility] ([facility] L[facility]y [...] [facility] ID Date Data Source [id number] 08/29/2019 11:39:00 AM EDT [facility] ([facility] Name Value Range Interpretation Code Description Data Luz rce(s) Supporting Document(s) Hemoglobin A1c 8.1 % [facility] ([facility] REFERENCE RANGES: 4.5-5.6% NORMAL 5.7-6.4% SUGGESTS IMPAIRED GLUCOSE META BOLISM >= 6.5% ABNORMAL Estimated Average Glucose 186 mg/dL 60-110 [facility] ([facility] ID Date Data Source [id number] 08/29/2019 11:39:00 AM EDT [facility] ([facility] Name Value Range Interpretation Code Description Data Luz rce(s) Supporting Document(s) Magnesium [Mass/volume] in Serum or Plasma 2.0 mg/dL 1.8-2.4 [facility] ([facility] ID Date Data Source [id number] 08/29/2019 11:39:00 AM EDT [facility] ([facility] Name Value Range Interpretation Code Description Data Luz rce(s) Supporting Document(s) Blood Urea Nitrogen 12 mg/dL [...] Little GFR Left</content>
<content>ESRD GFR <15 on CONSTRUCTION FIELD ENGINEER</content>
<content></content> Sodium Level 141 meq/L 136-145 [facility] [...] [facility] ID Date Data Source [id number] 08/23/2019 12:14:00 PM EDT [facility] ([facility] Langley [...] Little GFR Left</content>
<content>ESRD GFR <15 on CONSTRUCTION FIELD ENGINEER</content>
<content></content> Creatinine For GFR 1.14 mg/dL 0.55-1.30 [...] [facility] ID Date Data Source [id number] 07/31/2019 05:43:00 AM EDT [facility] Name Value Range Interpretation Code Description Data Luz rce(s) Supporting Document(s) SARS coronavirus 2 RNA [Presence] in Uns pecified specimen by TEO with probe detection [facility] This lab was ordered by [facility] and reported by [facility] ID Date Data Source [id number] 07/27/2019 01:30:00 PM EDT [facility] ([facility] Name Value Range Interpretation Code Description Data Luz rce(s) Supporting Document(s) Vancomycin [Mass/volume] in Serum or Plasma --trough 11.9 UG/ML 10.0- 20.0 [facility] ([facility] C reactive protein [Mass/volume] in Serum or Plasma by High sensitivity method 1.74 mg/dL 0.00-0.30 [facility] ([facility] ID Date Data Source [id number] 07/27/2019 01:30:00 PM EDT [facility] ([facility]uzhat Langley [...] Little GFR Left</content>
<content>ESRD GFR <15 on CONSTRUCTION FIELD ENGINEER</content>
<content></content> Sodium Level 140 meq/L 136-145 [facility] [...] [facility] ID Date Data Source [id number] 07/27/2019 01:30:00 PM EDT [facility] ([facility] Name Value Range Interpretation Code Description Data Luz rce(s) Supporting Document(s) Erythrocyte sedimentation rate by 2H Westergren method 23 mm/hr 0-3 0 [facility] ([facility] ID Date Data Source [id number] 07/27/2019 01:30:00 PM EDT [facility] ([facility] Langley [...] Volume 89.9 fl 80.0-96.0 M [facility] ([facility] Mean Corpuscular Hemoglobin 27.4 pg [...] [facility] ID Date Data Source [id number] 07/20/2019 05:12:00 AM EDT [facility] ([facility] Name Value Range Interpretation Code Description Data Luz rce(s) Supporting Document(s) Erythrocyte sedimentation rate by 2H Westergren method 41 mm/hr 0-3 0 [facility] ([facility] ID Date Data Source [id number] 07/20/2019 05:12:00 AM EDT [facility] ([facility]hat Langley [...] Corpuscular Hemoglobin 27.5 pg 27.0-33.0 [facility] ([facility] Platelet Count, Automated 199 10 150-450 [facility] ([facility] Neutrophils % 79.8 % 36.0-66.0 [facility] ([facility] Barrow % 6.1 % 0.0-5.0 [facility] (Nuzhat rivera [...] % 0-3.0 [facility] ([facility] [place] # 0.8 10 0.0-0.8 [facility] ([facility] Neutrophils # 10.5 10 1.5-8.5 [facility] ([facility] Lymph # 1.3 10 1.5-5.0 [facility] ([facility] Baso # 0.1 10 0.0-0.2 [facility] ([facility] Eos # 0.2 10 0.0-0.5 [facility] ([facility] ID Date Data Source [id number] 07/20/2019 05:12:00 AM EDT [facility] ([facility] Name Value Range Interpretation Code Description Data Luz rce(s) Supporting Document(s) C reactive protein [Mass/volume] in Serum or Plasma by High sensitivity method 3.25 mg/dL 0.00-0.30 [facility] ([facility] ID Date Data Source [id number] 07/20/2019 05:12:00 AM EDT [facility] ([facility] Name Value Range Interpretation Code Description Data Luz rce(s) Supporting Document(s) Glucose, Fasting 142 mg/dL 70-100 [...] Little GFR Left</content>
<content>ESRD GFR <15 on CONSTRUCTION FIELD ENGINEER</content>
<content></content> Blood Urea Nitrogen 18 mg/dL 7-18 [...] [facility] ID Date Data Source [id number] 07/12/2019 11:38:10 AM EDT [facility] Name Value Range Interpretation Code Description Data Luz rce(s) Supporting Document(s) &PDF [employer] HLRUOm9wZsQUPqJp33/YPGxfIAHob3BlCOzkEMk7JFmoQWDnJ2QjlBahGNVRDhXRWLPeZM4EX2JHQaZg yKE [file] AgICAgICAgICAgICAgICAgICAgICAgICAgICAgICAgICAgICAgICAgICAgICAgICAgICAgICAgICAgIC EtFUAvOOSzFOWyCFSwMVStGZDzITXjTTRsVHYcFFSuDTNaGFBpAG2CKHCmJFHnLNSbCLYxDZBkRVQjXY AgICAgICAgICAgICAgICAgICAgICAgICAgICAgICAg NVDgVIMfUSOhYVTiFBNkIOXyDLDuHOWkKULgVCRhOROqKWWrRCRfJDTtOHJwMTZtUK0PGJOpKTIaZYZk ICAgICAgICAgICAgICAgICAgICAgICAgICAgICAgICAgICAgICAgICAgICAgICAgICAgICAgICAgICAg ICAgICAgICAgICAgICAgICAgICAgICAgICAgICAgIA 0KICAgICAgICAgICAgICAgICAgICAgICAgICAgICAgICAgICAgICAgICAgICAgICAgICAgICAgICAgIC YtYCRtSYJaPPXoHVFsOHWwXEIeCTJfCUPmGTDhTBXqCCWkTQQhVPCzJC2THBEbHCCiEULwGBWzDXQkGR AgICAgICAgICAgICAgICAgICAgICAgICAgICAgICAg BKMjPVPrRUOrVPIaKGVlAVVcXFIhOTFxMDWuMLLaNKHcQNUzTRAkMXYoCPCyGXCaJROuVM8YDWNqCPUi ICAgICAgICAgICAgICAgICAgICAgICAgICAgICAgICAgICAgICAgICAgICAgICAgICAgICAgICAgICAg ICAgICAgICAgICAgICAgICAgICAgICAgICAgICAgIC TeMP0CAZGzXGLwJXHzFREjEHUmNIFrJELcDOHyYJVhXCQeLDBhFRLjBUEfULTrUHOtACUfHDReHAKjNE IxDBIoNMPfVSRcXPKrSDFaPPIbLUGtCXGdEGTdQYLhLKPhRMRbBWIfUZQtLA9XCHUtFSPkJWRtFDPpLZ AgICAgICAgICAgICAgICAgICAgICAgICAgICAgICAg CRFqBKDaMMCuKQWaDOPsDVBnDECaCNEkCRGcRDUdHIElAEEhWFXyLPArLXFePLWzICBbLMKdAS7KSZAl ICAgICAgICAgICAgICAgICAgICAgICAgICAgICAgICAgICAgICAgICAgICAgICAgICAgICAgICAgICAg ICAgICAgICAgICAgICAgICAgICAgICAgICAgICAgIC BsGELwGH3SYILaJOHlRXIuNWSwESTpYPBdDKNwXLXwTHZvDWWjOIGaNMOgZHIlXYNbWBXfRWLeKTFjAH QhSVIwMFRcOWNfMVOtHZSeNLTgOMSuKFJwTXWlISXsLQJhUKBnATZmGJTqFWNlYP2LXE83fJSju2B6NF MzZJ1dmta/Ok7FGYwicxPbaQIcJR5KHrGhOL5blv2R EhRoSZ5ati8MFUqZToOvC3E1oGSmQVPvGRYJNuFnM78mHUleCb69HKgwEUFbZvFtZVq3Tx7BAfLjB7mr TTPzClM5ZSRwCiR0ZXXrFzFjMYkjRW7Iz8AhdQSqQLv+Xq6NPX9qq8PfIFtdUqRyGJ1hcy6OJRtGNaEy F0B1qEIeC2X5BYgmNk5EXFWeLLQvFwNpHYNLGWlrFL 7UGM0mpqY1GU5ToOVlMEQkCIYjlEMtEYm4B98agFLpDPfjPV8NMPV+John+Lt4KFPTrUCJaYTBrOtSaXA YSRcLnB03ngXRyUYVgGWU8ZHYgCh0XPKFzR0TdydKmxYygepIfDOZwGKVWJZ4SRCysgvQpzCAahYzoED 13rJskGN7VBc6UBkOlRE1cto6PfMUuWv5ARLQdOa7Q CETfIWPnNQUeCOP9FKTyGwYvCXdiYVSdSUJmVGD7PXBsFMGkIS5WWpHvWRZzKyQ2LynfPSNtRVYjta2T ITHgNKRnWRR5UcJxNUBjNWTvPXgbYGYpCTQjVUqpWYHsPFBrRL4DWyZmQSNpOKZ1IaDpEIQsZLFgnf4V HUPfSGAtFmVkFTQfSQVrWREzTFudLFEwQSA8CTjpRJ GtOKAjKP1LWnBoDLJtZGWyIGixGPGjDFVtvh1AWSZwLNMjHFL9KzGyCQJmKBOtEGvbNANeOBT6CEEyYF IgYEFhMO8NDzVsUOYaINP1CnGcHNRuZJNpfc7THNGjXSFiRcF8FxNoQDRrPBQaIAkuSYAtHTN3Nzu7BP BjOTRaMP8AKqGpUEYhEQP3EUVaTJThOMUijl6HDYVt OQEoDAtnUXObXXYsTBYqCPxbKRNfVUMhGJY5LHPjCVHsYB4MGvAcOQDrTKJaSjvvMJRnYVNlra2SCTBh FYWzOnTnHuWuEWIcAJMwHDcdHZXcLLYgWvG1SBQoULHhMK6KUoYxTBPmZSL3YQMlGVFjEWBdtj8BDWVa PNScGar1JFOlMSXpFCLlFQkySQLpBVM0AWJ7BSSdPH NbUT3SYcSbKSKaXZz7HaibFHMlIYRntx5ZJMRaOMMjYnq0GkUaIFNoAHPeJSxwKAGfJLOoFvPoWYCjQY KgTT3PGbCtIQMrXkG9PRbhUYYyWNOyon1RpGJmnJmajd5SFYzBNz3DwQptYGE2ZJrkLq7wtURqUuXnPO JVGv9QazKdXSMtBWQNUQzeSBMxCLdnLGPxZZZ8NNO8 FJGeWCJoVwpbUCAmZwBgEQVePHUhMeL5MKWsM9BvJDloLsR7ORU3KLQmD6D0NYTaWmY0VpDuAvC+IF0g DQo+Wn7Qd7AeejW0uiHpCBpkRPbwOF4OKKGKR4QLAa== ID Date Data Source [id number] 07/06/2019 03:31:00 PM EDT [facility] ([facility] Langley [...] ([facility] ID Date Data Source [id number] 07/06/2019 03:31:00 PM EDT [facility] (Nuzhat Langley [...] Little GFR Left</content>
<content>ESRD GFR <15 on CONSTRUCTION FIELD ENGINEER</content>
<content></content> Blood Urea Nitrogen 17 mg/dL 7-18 [facility] ([facility] Chloride Level 102 meq/L 98-107 [facility] ([facility] Potassium Serum 4.3 meq/L 3.5-5.1 [facility] ([facility] Sodium Level 137 meq/L 136-145 [facility] ([facility] Carbon Dioxide Level 29 meq/L 21-32 [facility] ([facility] Anion Gap 6 meq/L 8-16 [facility] ([facility] Calcium Level 8.6 mg/dL 8.8-10.2 [facility] ([facility] ID Date Data Source [id number] 07/06/2019 03:31:00 PM EDT [facility] ([facility]uzhat Langley [...] [facility] ID Date Data Source [id number] 07/06/2019 03:31:00 PM EDT [facility] ([facility] Name Value Range Interpretation Code Description Data Luz rce(s) Supporting Document(s) Erythrocyte sedimentation rate by 2H Westergren method 23 mm/hr 0-3 0 [facility] ([facility] ID Date Data Source [id number] 07/06/2019 03:31:00 PM EDT [facility] ([facility] Name Value Range Interpretation Code Description Data Luz e(s) Supporting Document(s) Red Blood Count 4.34 10 [...] pg 27.0-33.0 [facility] ([facility] Barrow % 6.1 % 0.0-5.0 [facility] (Nuzhat rivera [...] 10 0.0-0.2 [facility] ([facility] [place] # 0.8 10 0.0-0.8 [facility] ([facility] ID Date Data Source [id number] 07/06/2019 03:31:00 PM EDT [facility] ([facility] Name Value Range Interpretation Code Description Data Luz rce(s) Supporting Document(s) aPTT in Platelet poor plasma by Coagulation assay 33.2 s 25.0-38. 4 [facility] ([facility] ID Date Data Source [id number] 07/06/2019 03:31:00 PM EDT [facility] (Nuzhat Langley [...] MYOCARDIAL INFARCTION 2.5-3.5 ID Date Data Source [id number] 07/04/2019 01:39:00 AM EDT [facility] ([facility] Name Value Range Interpretation Code Description Data Luz rce(s) Supporting Document(s) Laboratory test finding (navigational concept) 37.0 % 38.0-51.0 [facility] ([facility] Laboratory test finding (navigational concept) 140 meq/L 136-145 [facility] ([facility] Laboratory test finding (navigational [...] [facility] ID Date Data Source [id number] 07/04/2019 01:37:00 AM EDT [facility] (Nuzhat Langley [...] AFTER 5 DAYS ID Date Data Source [id number] 07/04/2019 01:22:00 AM EDT [facility] ([facility] Name Value Range Interpretation Code Description [facility] Blood Culture Laboratory test result [...] AFTER 5 DAYS ID Date Data Source [id number] 07/04/2019 01:22:00 AM EDT [facility] ([facility] Name Value Range Interpretation Code Description Data [facility] Supporting Document(s) C reactive protein [Mass/volume] in Serum or Plasma by High sensitivity method 0.65 mg/dL 0.00-0.30 [facility] ([facility] ID Date Data Source [id number] 07/04/2019 01:22:00 AM EDT [facility] ([facility] Name Value Range Interpretation Code Description Data [facility] Supporting Document(s) Glucose, Fasting 158 mg/dL 70-100 [...] Little GFR Left</content>
<content>ESRD GFR <15 on CONSTRUCTION FIELD ENGINEER</content>
<content></content> Potassium Serum 3.9 meq/L 3.5-5.1 [facility] [...] [facility] ID Date Data Source [id number] 07/04/2019 01:22:00 AM EDT [facility] ([facility] Name Value Range Interpretation Code Description Data Luz rce(s) Supporting Document(s) Erythrocyte sedimentation rate by 2H Westergren method 6 mm/hr 0-3 0 [facility] ([facility] Lactate [Mass/volume] in Serum or Plasma 1.2 mmol/L 0.4-2.0 [facility] ([facility] Y/N query for Sepsis Lactate Rule: Y ID Date Data Source [id number] 07/04/2019 01:22:00 AM EDT [facility] ([facility] Name Value Range Interpretation [...] % 0.0-3.0 [facility] ([facility] [place] % 5.8 % 0.0-5.0 [facility] ([facility] Baso % 0.2 % 0.0-1.0 [facility] ([facility] Immature Granulocyte % 1.5 % 0-3.0 [facility] ([facility] Neutrophils # 9.2 10 1.5-8.5 [facility] ([facility] Nucleated Red Blood Cell % 0.0 % 0-0 [facility] ([facility] [place] # 0.7 10 0.0-0.8 [facility] ([facility] Baso # 0.0 10 0.0-0.2 [facility] ([facility] Lymph # 1.8 10 1.5-5.0 [facility] ([facility] Eos # 0.1 10 0.0-0.5 [facility] ([facility] ID Date Data Source [id number] 06/20/2019 10:17:21 PM EDT [facility] Name Value Range Interpretation Code Description Data Luz rce(s) Supporting Document(s) &PDF [employer] JAVDXs2uYhWRDxJb52/NUIgyYAVid5PlAWgbDDt7SDoiAJFnQ3FliXocLXPDXaACIECzNH2LK8HVRfZm oRX [file] ++Tx/FV7ns/9vW/Sr7LCAYguBL0OG+6w1XLTXJ2A5NnvdUAS0JBc6wGWEdB1Dsiyq/zLKcclauu LtTBxgX68dI3MiHcM004qQL026yFyszEmgpsdRnr2SMT5UH46owucT6aP4i2eNzzZnEe18tx+asq5zhk CLgUE2dKZYe2siEKVuU2vd5oquKOVUq9x4aIwlnuvp Djj2Kz4acOCH9xQZcgEUqqENZDS96liT3IlH+mqRoqYyV0/IindtIsezw+IBNmAFq1N9CuLCf7k305GN kkANPRUATLC0wnIKlYJTBpIXhjoRvBRT75C50qwk0ulAZ8r4qgbFr/nPANs0Zc+liDi50hZ1K2EELx4X wkUvsnsiAGxzAXy7F7i6EDqVQDhCO7r63+X+9gEN2y 6fbe6rOy7ibdbKDaNh6/bv++AhSeU8rsLFGgNuJwbjcVs0YCYmT4BP6JDJoMMaFOkRploEKwb1GFhzYX 7X0tn3+elGkJfyG6s22No+dBvbIPaR30DAW3p08fHxZlctyYS54vpHC3IWDp//J4EsP2QyaPqKi/4t94 StaP/fugHvidnTrWehzD2O289oqINKwlDP9S57vd2i 5STPPS0yDAUWoqX6Ubrs+Ea3IcntfBJifna9Iow8fPYs/P22rVWYBVFF9EknJOYOrj18N/FCZfd5whb2 ZORT6Aea//pB2cKDDap+c2TU149vn0HgKKJxOZOw8ohtNunfl6rc+c++Ioni0u5IVt1ZbCCkuxse8hO5 yzsi7r/eaX9bzoVj8eh7xUOTTSGEc1HXVImMBbv+front end software developer [file] 4WURLuWD4i8Ohkq7irL+EDwmn/8/VICTOR HUGO/A/AkV5RSQdInOCB8hwWkaL3QXV1od8PqUEuvDJBePI1vrm1C [file] ICAgICAgICAgICAgICAgICAgICAgICAgICAgICAgICAgICAgICAgICAgICAgICAgICAgICAgICAgICAg AAAxGWOvQNCtRG2GTKOiPKVxUSBiGFXeYOEvLCSkTJ AgICAgICAgICAgICAgICAgICAgICAgICAgICAgICAgICAgICAgICAgICAgICAgICAgICAgICAgICAgIC RmOWFzKJJnVADjVGPkALAmPNXaGX6FQWHdJUSqFWEzLZYrOZDsPTNoLWTnFIEhIRWcVTMdBNKfLGCzIN AgICAgICAgICAgICAgICAgICAgICAgICAgICAgICAg FWWbETVlVFNhSWUuLWXiRXOvNBLrHOKaPGDjIBHmNL8YIOTmUTEjOESkIEXwPSQeNKPcZGXrFIGdDDVq ICAgICAgICAgICAgICAgICAgICAgICAgICAgICAgICAgICAgICAgICAgICAgICAgICAgICAgICAgICAg WUSoTIKbOUSbEKEfSE8ADAJwMBIfBTKnCXZmHUOlUN AgICAgICAgICAgICAgICAgICAgICAgICAgICAgICAgICAgICAgICAgICAgICAgICAgICAgICAgICAgIC YzCRVyVDPyUFUdRMCsLVWgFPNpEQNyEJ3KILWaXQFqHKYfEUInADQxIAHsHAJbSMUhUGBwMCMnUISfGP AgICAgICAgICAgICAgICAgICAgICAgICAgICAgICAg YVVlWNGcOGQhIUPbCJCjYODxSKWzNUDaVAYbIDZxLZLgYP6GLDNiIUDuDZLpFQLmZXFxCTTeVFVcJEGi ICAgICAgICAgICAgICAgICAgICAgICAgICAgICAgICAgICAgICAgICAgICAgICAgICAgICAgICAgICAg RQJzHBWfFGKaPVCyDYMaDR9PAZVvMHQmPCHwVRYrGK AgICAgICAgICAgICAgICAgICAgICAgICAgICAgICAgICAgICAgICAgICAgICAgICAgICAgICAgICAgIC TzRXNdSGSjJCQhNMMrZUQcAYTnSIIqTBEaBF3CWUBwZIIjFNHcRXWgJOMsFYUpYUYrQCKmORZlYWKmOI AgICAgICAgICAgICAgICAgICAgICAgICAgICAgICAg XUIzWIRfZJPkMMRePZPaFGTiMFEnIGUfWJEsHIXvWGOpDPCpDD5BMCLbALKtVZNpLRSwTPJbJBSoAKSs ICAgICAgICAgICAgICAgICAgICAgICAgICAgICAgICAgICAgICAgICAgICAgICAgICAgICAgICAgICAg UPDnHHVzLUQvGQPzLHRiCPPvLR6XTR90rMVjp4U7JM BoQH3rdce/Tz2NRXfkscMfdKFiLZ7IOvDvQF2lss0INpLoCW6ztg6CMQnOMxDlC1D9lHRdZSCvRPZVWm HjM28iWUmsFs72URnbTCRbGtBcMPv3Vj5YRdZbJ8rbWKPyEyZ1HSHxGeJ1TYEsVnXsVCfnQR1Fs3MpgJ AyDQo+Ds0IQN2ff6DqVAefOuGoLX4tnl8WVYtPMiYk P4D7bSPoM2A5FMeaZd4HDDRxMDSrXqWdVSCGIOuaCW8RVG4uefE6KU1UwYOyAMRvKAVqgPQiILs3P55j mPYoNFseBC6NYGE+John+Bw4PUPSlQADrIZDtXnBeBKSKFxCcM60yaYClGSGuOLRmFMKnXo3UIWAcA8Qx syKqaFagvqMwPFCgVLQIDP8YIXyasuCheQZpaDjdOW 64uPmiOD2IBv5SFjSbOL0fzr2MjWCbGg7LQSMeSL3VCXBdVQMpLSOgJOD4KMWkPcRwOAzwUNYsSMRpMM H9DVNsQQNeOK1HVcOvBBAjDMsvAuUjAIJrPUWktr1EUMCaCMC6JTb7JRDxRFWwHVQjEWfmEJBaPDDhLW pvJPTtIYCbZT9QBqLdUSFbPMJ7VROzBEQnLOAwlk8K PQTuTIEaZfUsCjHuNKAoSSWbALtfDPZwOOD2SRVyBDXkRYXhMD3NSlAjPJSaOOBfWmSrZZBeTHDhgg9L WKUpCAXpJfN9KPHiCLQjNUUqDWyfFZWaGXV3PWyoXHZwIYGmUH3MXqRuQFEfXYf1LvSkRFGyHPRqtx0P QNHyUJCoAJPyTHTnLRNnOWFrPSuvZRZbQLO0RQIwMU MvMWYtNQ8CWsQbWVQtEOglOnUsUUMnYHLrpe4WKUKfBUIpGns4AdRzGARbETSgRDzgBTNrHIQ5ZHh5BU IsBNGuLX8AJbZrYGFtHAN6AFPsBZUrAZKzft9MTXQkNHPjGQF0KeBxRNEqCUJpREpdCXTuTUR9LzszYB HwESBjSF2WIiLgICSdQVE9DbJkUUIfBWJwxl1BPARp QBGsJWkbRECqHIQhEQDxFXrsFECjXZH8PXtsCJFuPITtBK6KRoMvQDNfJoV6EwigLCIgZSZzvu4JRYXj SNUdLFt3AYWlWELqZEWgNMftFUOiYKD8ARKaPIRyEHSnKT9JBrWjLXQlKSKaKZbkOIBgEXZzjc4QAZTu AUK9GUN5ZzZfBKPdDERuNCryIOQiLOAnLYQ9YRGmXK YkOR6YSaTcJJTuSyGnODMsAZDsUHUtbg4WFUCjPIG4MMm0JrGpUBLgHHZiNUgbDUBoANh3ZZZ8HOSbMK WjBA8BUkXbETZoTSb4WaHwXFUzCKTgci1RBHInVGA1PBY5ITNxZLSpHQZqILa3xfSikGHeVDx1UY7TY2 OnehTiSnLILm5Qh717GKRzUWCaEt8BG2ewLr1rLUPl OEYJPy6KJPf5RHIbVVOzKRJzINr5LqGbGnP2EDA4S2N7Ywc2NvHjJDF+IFueDyRzHhSgRVD3ScpqJUC4 GaO6VNQ5BfRdRJC5IsGsVU2sSFMOBx3+SRvlxKGflM[id number] ID Date Data Source [id number] 05/16/2019 07:23:00 PM EDT [facility] ([facility] ID Date Data Source [id number] 05/16/2019 06:59:00 PM EDT [facility] ([facility] [...] FOR ESBL</content>
<content></content> ID Date Data Source [id number] 05/16/2019 06:59:00 PM EDT [facility] ([facility] [...] result [facility] Specific [place] [facility] RFX 1.004 1.002-1.035 [facility] ([facility] [...] [facility] ID Date Data Source [id number] 05/16/2019 06:47:00 PM EDT [facility] ([facility] Name Value Range Interpretation Code Description Data Luz rce(s) Supporting Document(s) Natriuretic peptide.B prohormone N-Terminal [Mass/volu me] in Serum or Plasma 368 pg/mL [facility] ([facility] ID Date Data Source [id number] 05/16/2019 06:47:00 PM EDT [facility] ([facility] Name Value Range Interpretation Code Description Data [facility](s) Supporting Document(s) CPK Creatine Phosphokinase 39 U/L 26-192 [facility] ([facility] CK-MB Value Mass 1.3 ng/mL [facility] ([facility] Troponin I Laboratory test result [facility] <content>Troponin I Reference Interval f or Siemens [place] LOCI:</content>
<content></content>
<content>99th Percentile= 0.00-0.045 ng/ml</content>
<content></content>
[...] > 4</content>
<content></content> ID Date Data Source [id number] 05/16/2019 06:47:00 PM EDT [facility] ([facility] [...] Count, Automated 163 10 150-450 [facility] ([facility] Mean Corpuscular HGB Conc 30.8 g/dL 32.0-36.5 [facility] ([facility] Red Cell Distribution Width 15.8 % 11.5-14.5 [facility] ([facility] Neutrophils % 87.2 % 36.0-66.0 [facility] Lymph % 7.4 % 24.0-44.0 [facility] [place] % 3.4 % 0.0-5.0 [facility] ([facility] [...] 10 0.0-0.5 [facility] [place] # 0.4 10 0.0-0.8 [facility] Baso # 0.0 10 0.0-0.2 [facility] Procedure Social History Code Duration Value Status Description Data Source(s ) Smoking 03/22/2020 12:00:00 AM EST - 08/15/2013 12:00:00 AM EDT Patient is a former smoker completed Patient is a former smoker [facility] Alcohol intake 01/19/2020 12:00:00 AM EST No completed [facility] Cigarette pack-years 01/19/2020 12:00:00 AM EST UNK completed [facility] Cigarettes smoked current (pack per day) - Reported 01/19/20 12:00:00 AM EST UNK completed [facility] Smoking 01/19/2020 12:00:00 AM EST Former smoker completed Former smoker [facility] Smoking 09/06/2019 12:00:00 AM EDT Patient is a former smoker completed Patient is a former smoker [facility] ([facility] ) Vital Signs ID Date Data Source UNK Name Value Range Interpretation Code Description Data Source(s) Body mass index (BMI) [Ratio] 46.0 kg/m2 46.0 k g/m2 [facility] Satartia body weight 105 [lb_av] 105 [lb_av] [facility] T ([facility] Oxygen saturation in Arterial blood by Pulse oximetry 98 % 98 % [facility] ([facility] Body weight 247.38 [lb_av] 247.38 [lb_av] [facility] ([facility] Body height 61.5 [in_i] 61.5 [in_i] [facility] 5'1.50" Respiratory rate 16 /min 16 /min [facility] ( [facility] Body temperature 97.1 [degF] 97.1 [degF] [facility] Heart rate 82 /min 82 /min [facility] Diastolic blood pressure 62 mm[Hg] 62 mm[Hg] [facility] Systolic blood pressure 137 mm[Hg] 137 mm[Hg] M [facility] ([facility] Body mass index (BMI) [Ratio] 38.7 kg/m2 38.7 k g/m2 [facility] Satartia body weight 105 [lb_av] 105 [lb_av] [facility] [...] by Pulse oximetry 98 % 98 % [facility] Body mass index (BMI) [Ratio] 45.91 kg/m2 45.91 kg/m2 [facility] Body weight 113.853 kg 113.853 kg [facility] Body height 157.5 cm 157.5 cm [facility] Heart rate 93 /min 93 /min [facility] Diastolic blood pressure 60 mm[Hg] 60 mm[Hg] [facility] Systolic blood pressure 132 mm[Hg] 132 mm[Hg] [facility] Body mass index (BMI) [Ratio] 46.9 kg/m2 46.9 k g/m2 [facility] ([facility] [place] body weight 105 [lb_av] 105 [lb_av] [facility] [...] k g/m2 [facility] ([facility] [place] body weight 105 [lb_av] 105 [lb_av] [facility] [...] k g/m2 [facility] ([facility] [place] body weight 105 [lb_av] 105 [lb_av] [facility] [...] k g/m2 [facility] ([facility] [place] body weight 105 [lb_av] 105 [lb_av] [facility] [...] k g/m2 [facility] ([facility] [place] body weight 105 [lb_av] 105 [lb_av] [facility] [...] Systolic blood pressure 138 mm[Hg] 138 mm[Hg] [facility] ([facility] Body mass index (BMI) [Ratio] 49.9 kg/m2 49.9 k g/m2 [facility] ([facility] [place] body weight 105 [lb_av] 105 [lb_av] [facility] [...] pressure 94 mm[Hg] 94 mm[Hg] [facility] Systolic blood pressure 139 mm[Hg] [...] Diastolic blood pressure 81 mm[Hg] 81 mm[Hg] [facility] Systolic blood pressure 155 mm[Hg] 155 mm[Hg] [facility] ([facility] Diastolic blood pressure 86 mm[Hg] 86 mm[Hg] [facility] ([facility] Systolic blood pressure 171 mm[Hg] 171 mm[Hg] [facility] Body weight 120.658 kg 120.658 kg [facility] ([facility], ) Body mass index (BMI) [Ratio] 48.6 kg/m2 48.6 k g/m2 [facility] ([facility]) Body weight 266.00 [lb_av] 266.00 [lb_av] [facility] ([facility], ) Body height 62 [in_i] 62 [in_i] [facility] ([facility]) 5'2" Body temperature 97.1 [degF] 97.1 [degF] [facility] ([facility]) Oxygen saturation in Arterial blood by Pulse oximetry 94 % 94 % [facility] ([facility]) Heart rate 94 /min 94 /min [facility] ([facility]) Diastolic blood pressure 78 mm[Hg] 78 mm[Hg] [facility] ([facility]) Systolic blood pressure 122 mm[Hg] 122 mm[Hg] M [facility] ([facility]) Body weight 117.936 kg 117.[address] [facility] ([facility]) Body mass index (BMI) [Ratio] 47.5 kg/m2 47.5 k g/m2 [facility] ([facility]) Body weight 260.00 [lb_av] 260.00 [lb_av] [facility] ([facility]) Body height 62 [in_i] 62 [in_i] [facility] 5'2" Body temperature 97.6 [degF] 97.6 [degF] [facility] ([facility]) Oxygen saturation in Arterial blood by [...] Systolic blood pressure 136 mm[Hg] 136 mm[Hg] [facility] ([facility] Body weight 116.122 kg 116.122 kg [facility] ([facility]) Body mass index (BMI) [Ratio] 50.0 kg/m2 50.0 k g/m2 [facility] ([facility]) Body weight 256.00 [lb_av] 256.00 [lb_av] [facility] ([facility]) Body height 60 [in_i] 60 [in_i] [facility] ([facility]) 5'0" Body temperature 98.4 [degF] 98.4 [degF] [facility] ([facility], ) Oxygen saturation in Arterial blood by Pulse oximetry 95 % 95 % [facility] ([facility], ) Room Air Heart rate 94 /min 94 /min [facility] ([facility]) Diastolic blood pressure 84 mm[Hg] 84 mm[Hg] [facility] ([facility]) Systolic blood pressure 132 mm[Hg] 132 mm[Hg] [facility] Body mass index (BMI) [Ratio] 47.0 kg/m2 47.0 k g/m2 [facility] ([facility]) Body weight 249.00 [lb_av] 249.00 [lb_av] [facility] Body height 61 [in_i] 61 [in_i] [facility] ([facility]) 5'1" Body temperature 98.3 [degF] 98.3 [degF] [facility] ([facility]) Patient Treatment Plan of Care Planned Activity Planned Date Details Description Data Source (s) torsemide 20 MG Oral Tablet 01/12/2020 12:00:00 AM EST [facility] Metformin hydrochloride 500 MG Oral Tablet 01/11/2020 12:00:00 AM E [facility] Bacitracin 0.5 UNT/MG / Neomycin 0.0035 MG/MG / Polymyxin B 10 UNT/MG Topical Ointment 12/27/2019 12:00:00 AM EST [facility] Albuterol 0.833 MG/ML / Ipratropium Colony 0.167 MG/M L Inhalant Solution 12/27/2019 12:00:00 AM EST [facility] Fluconazole 100 MG Oral Tablet 12/08/2019 12:00:00 AM EDT [facility] potassium chloride SA (K-DUR,KLOR-CON) 20 MEQ tablet 12:00:00 AM EDT [facility] Metolazone 2.5 MG Oral Tablet 06/25/2019 12:00:00 AM EDT [facility] Potassium Chloride 20 MEQ Extended Release Oral Tablet 06/25/2019 12:00:00 AM EDT [facility] Prednisone 5 MG Oral Tablet 06/25/2019 12:00:00 AM EDT [facility] rivaroxaban 20 MG Oral Tablet 06/25/2019 12:00:00 AM EDT [facility] Furosemide 40 MG Oral Tablet 06/11/2019 12:00:00 AM EDT [facility] tizanidine 4 MG Oral Tablet [facility] 60 ACTUAT Fluticasone propionate 0.5 MG/ ACTUAT / salmeterol 0.05 MG/ACTUAT Dry Powder Inhaler [facility]
--- OUTSIDE RECORDS SUMMARY | 2020-04-06 16:43 | CCD ---
Author Author [facility] Organization [facility] Address Unknown Phone Unavailable Care Team Providers Care Rack Washer Name Role Phone Zachary Langley MD Unavailable [...] Unavailable Unavailable RENETTA, NAVEEN OSMAN Unavailable Unavailable RNEETTA, NAVEEN OSMAN Unavailable Unavailable RENETTA, NAVEEN OSMAN [...] Jeff Hernández MD Unavailable Unavailable Pleskach, Criselda PRIMER EXPEDITOR AND DRIER Unavailable Unavailable Pleskach, Criselda PRIMER EXPEDITOR AND DRIER Unavailable Unavailable Pleskach, Criselda PRIMER EXPEDITOR AND DRIER Unavailable Unavailable Pleskach, Criselda PRIMER EXPEDITOR AND DRIER Unavailable Unavailable Pleskach, Criselda PRIMER EXPEDITOR AND DRIER Unavailable Unavailable Pleskach, Criselda PRIMER EXPEDITOR AND DRIER Unavailable Unavailable Pleskach, Criselda PRIMER EXPEDITOR AND DRIER Unavailable Unavailable Pleskach, Criselda PRIMER EXPEDITOR AND DRIER Unavailable Unavailable Pleskach, Criselda PRIMER EXPEDITOR AND DRIER Unavailable Unavailable Pleskach, Criselda PRIMER EXPEDITOR AND DRIER Unavailable Unavailable Pleskach, Criselda PRIMER EXPEDITOR AND DRIER Unavailable Unavailable Pleskach, Criselda PRIMER EXPEDITOR AND DRIER Unavailable Unavailable Pleskach, Criselda PRIMER EXPEDITOR AND DRIER Unavailable Unavailable Pleskach, Criselda PRIMER EXPEDITOR AND DRIER Unavailable Unavailable Pleskach, Criselda PRIMER EXPEDITOR AND DRIER Unavailable Unavailable Pleskach, Criselda PRIMER EXPEDITOR AND DRIER Unavailable Unavailable Pleskach, Criselda PRIMER EXPEDITOR AND DRIER Unavailable Unavailable Pleskach, Criselda PRIMER EXPEDITOR AND DRIER Unavailable Unavailable Pleskach, Criselda PRIMER EXPEDITOR AND DRIER Unavailable Unavailable Pleskach, Criselda PRIMER EXPEDITOR AND DRIER Unavailable Unavailable Pleskach, Criselda PRIMER EXPEDITOR AND DRIER Unavailable Unavailable Pleskach, Criselda PRIMER EXPEDITOR AND DRIER Unavailable Unavailable Pleskach, Criselda PRIMER EXPEDITOR AND DRIER Unavailable Unavailable Pleskach, Criselda PRIMER EXPEDITOR AND DRIER Unavailable Unavailable Pleskach, Criselda PRIMER EXPEDITOR AND DRIER Unavailable Unavailable Pleskach, Criselda PRIMER EXPEDITOR AND DRIER Unavailable Unavailable Pleskach, Criselda PRIMER EXPEDITOR AND DRIER Unavailable Unavailable Pleskach, Criselda PRIMER EXPEDITOR AND DRIER Unavailable Unavailable Pleskach, Criselda PRIMER EXPEDITOR AND DRIER Unavailable Unavailable Pleskach, Criselda PRIMER EXPEDITOR AND DRIER Unavailable Unavailable Brantley, M Barratt PA Unavailable [...] Unavailable Brantley, M Barratt PA Unavailable Unavailable Bratnley, M Barratt PA Unavailable Unavailable Brantley, M [...] is protected by Article 27-F of the [facility] Public Health law. If you continue you may have access to information: Regarding HIV / AIDS; Provided by facilities licensed or operated by the [facility] Office of Mental Health; or Provided by the [facility] Office for People With Developmental Disabilities. If such information is present, then the following [facility] mandated warning applies: This information has [...] law may result in a fine or group home sentence or both. A general authorization for the release of medical or other information is NOT sufficient authorization for further disc losure. Family History Family Member Name Family Member Gender Family Member Status Date o f Status Description Data Source(s) Unknown Male Problem [facility] ([facility] Unknown Male Problem [facility] ([facility] in 1985 Unknown Unknown Problem [facility] ([facility] Unknown Male Problem [facility] ([facility] Encounters Encounter Providers Location Date Indications Data Source(s ) Office Visit Attender: Jeffy DIANA Physical Therapy 12:00:00 PM EST [facility] ([facility]) Outpatient Attender: Criselda AUGUSTIN Main Office 03/22/2020 0 2:15:00 PM EST [facility] ([facility] Office Visit Attender: Jeffy DIANA Physical Therapy 12:45:00 PM EST [facility] ([facility]) Outpatient Attender: Criselda AUGUSTIN Main Office 01/31/2020 1 0:45:00 AM EST [facility] ([facility] Outpatient Attender: Criselda AUGUSTIN Main Office 01/19/2020 0 1:00:00 PM EST [facility] ([facility] Outpatient Attender: NAVEEN FLANAGAN.ZAIDA-SJP.ZAIDA 0 12:00:00 AM EST - 01/19/2020 04:09:59 PM EST [facility] Outpatient Attender: Criselda Herrera [facility] Main Office 01/11/2020 0 2:45:00 PM EST [facility] ([facility] Outpatient Attender: Criselda Plepatricia [facility] Main Office 12/16/2019 0 1:15:00 PM EDT [facility] ([facility] Outpatient Attender: Criselda Plepatricia [facility] Main Office 12/02/2019 0 4:00:00 PM EDT [facility] ([facility] Outpatient Attender: Criselda Sharon [facility] Main Office 11/24/2019 1 0:00:00 AM EDT [facility] ([facility] Outpatient Attender: Criselda Plepatricia [facility] Main Office 10/20/2019 0 1:45:00 PM EDT [facility] ([facility] Outpatient Attender: Criselda Merlingian [facility] Main Office 09/20/2019 0 1:00:00 PM EDT [facility] ([facility] Outpatient Attender: Criselda Sharon [facility] Main Office 09/06/2019 1 1:30:00 AM EDT [facility] ([facility] Outpatient Referrer: NAVEEN JACKSON MD 08/03/2019 05:39:00 AM E DT [facility] Outpatient Attender: Edgar Hyman/Vipul/Alex/Pam roque 07/26/2019 10:30:00 AM EDT [facility] ([facility]) Outpatient Attender: Nuzhat Langley MD Main Office 07/21/2019 10:40:0 0 AM EDT [facility] ([facility] Outpatient Referrer: NAVEEN JACKSON MD 07/20/2019 08:50:00 AM E DT [facility] Outpatient Referrer: PROVIDER SYSTEM IN 07/16/2019 0 2:14:00 PM EDT L leg cellulitis [facility] L leg cellulitis Outpatient Referrer: NAVEEN JACKSON MD 07/08/2019 04:52:00 AM E DT [facility] Outpatient Attender: Criselda Sharon PRIMER EXPEDITOR AND DRIER Main Office 07/06/2019 0 1:00:00 PM EDT [facility] ([facility] Outpatient Referrer: NAVEEN FLANAGAN.CT-SJP.SYR 07/06/2019 08:57:33 AM EDT [facility] Outpatient Attender: NAVEEN JACKSON MDConsultant: NAVEEN JACKSON MD S SHERI.ZAIDA-SJP.ZAIDA 06/25/2019 02:18:30 PM EDT - 06/25/2019 03:24:46 PM EDT [facility] Outpatient SJИрина.CT-SJP.SYR 06/18/2019 11:40:10 AM EDT [facility] Outpatient Referrer: NAVEEN JACKSON MD SJИрина.ZAIDA-SJP.ZAIDA 0 10:40:26 AM EDT - 06/17/2019 12:12:23 PM EDT [facility] Outpatient Attender: NAVEEN JACKSON MDReferrer: NAVEEN JACKSON MD SJP .ZAIDA-SJP.ZAIDA 06/17/2019 10:39:30 AM EDT - 06/17/2019 01:42:16 PM EDT [facility] Outpatient Attender: NAVEEN JACKSON MD SJP-SJP.GVR 0 12:00:00 AM EDT - 06/11/2019 08:59:39 AM EDT [facility] Outpatient Referrer: NAVEEN JACKSON MD 06/07/2019 06:37:00 AM E DT [facility] Outpatient Attender: Km Bolanos/Vipul/Alex/Chauncey ndl 06/02/2019 10:30:00 AM EDT [facility] ([facility] OFFICE OUTPATIENT NEW 30 MINUTES Attender: Jeffy DIANA Ph ysical Therapy 05/21/2019 02:00:00 PM EDT [facility] ([facility]) Outpatient Referrer: NAVEEN JACKSON MD 05/19/2019 10:16:00 AM E DT [facility] Medications Medication Brand Name Start [...] MG tablet 01/11/2020 12:00:00 AM EST active [facility] Albuterol 0.833 MG/ML / Ipratropium Brom danial 0.167 MG/ML Inhalant Solution ipratropium-albuterol (DUO-NEB) 0.5-2.5 mg/mL nebulizer ipratropium-albuterol (DUO-NEB) 0.5-2.5 mg/mL nebulizer 12/27/2019 12:00:00 AM EST active [facility] Bacitracin 0.5 UNT/MG / Neomycin 0.0035 MG/MG / Polymyxin B 10 UNT/MG Topical Ointment Vlxmbvri-Mubkiqirjb-Nulshwnze (FIRST AID ANTIBIOTIC) 3.5-400-5000 MG- UNIT OINT Jcslbrvx-Uzqqqwnmut-Cksztllbl (FIRST AID ANTIBIOTIC) 3.5-400-5000 MG- UNIT OINT [...] P.C.) Docusate Sodium 50 MG / sennosides, CHCF 8.6 MG Oral Ta blet Senna-Docusate Sodium [...] potassium chloride SA (K-DUR,KLOR-CON) 20 MEQ tablet [id number] 06/25/2019 12:00:00 AM EDT [facility] [...] 06/02/2019 12:00:00 AM EDT completed [facility] ([facility] tizanidine 4 MG Oral Tablet [...] type / Coverage type Policy ID Covered republican ID Covered republican's relationship to sellers Policy Sellers Plan Information FOR LIFE [id number] MEDICARE [id number] SP [id number] FOR LIFE U [id number] Self [id number] MEDICARE A [id number] Self [id number] MEDICARE C [id number] S [id number] FOR LIFE O [id number] S [id number] MEDICARE [id number] MEDICARE [id number] Susanna [id number] E78 [id number] Spo [id number] SELF PAY PGBA [facility] [id number] HU2 [id number] [facility] O [id number] S [id number] FOR LIFE [id number] FOR LIFE U [id number] Self [id number] MEDICARE A [id number] Self [id number] A MEDICARE [id number] Susanna [id number] A For Life Medigap Part B [id number] Family Dependent [id number] [place] Primary [id number] Self [id number] For Life Medigap Part B [id number] Family Dependent [id number] [place] Primary [id number] Self [id number] For Life Reg 1 Medigap Part B [id number] Family Depen dent [id number] Medicare - NGS Medicare Primary [id number] Self [id number] For Life Medigap Part B [id number] Family Dependent [id number] [place] Primary [id number] Self [id number] For Life Medigap Part B [id number] Family Dependent [id number] [place] Primary [id number] Self [id number] For Life Reg 1 Medigap Part B [id number] Family Depen dent [id number] Medicare - NGS Medicare Primary [id number] Self [id number] For Life Medigap Part B [id number] Family Dependent [id number] [place] Primary [id number] Self [id number] MEDICARE [id number] SP [id number] A For Life Reg 1 Medigap Part B [id number] Family Depen dent [id number] Medicare - NGS Medicare Primary [id number] Self [id number] MEDICARE C UNAVAILABLE S UNAVAILA BLE MEDICARE C [id number] S [id number] A FOR LIFE [id number] HU2 [id number] For Life Reg 1 Medigap Part B [id number] Family Depen dent [id number] Medicare - NGS Medicare Primary [id number] Self [id number] [place] MEDICARE PART B C [id number] S [id number] For Life Medigap Part B [id number] Family Dependent [id number] [place] Primary [id number] Self [id number] For Life Medigap Part B [id number] Family Dependent [id number] [place] Primary [id number] Self [id number] For Life Medigap Part B [id number] Family Dependent [id number] [place] Primary [id number] Self [id number] PI PI MEDICARE PI PI [id number] Spo [id number] For Life Medigap Part B [id number] Family Dependent [id number] [place] Primary [id number] Self [id number] For Life Reg 1 Medigap Part B [id number] Family Depen dent [id number] Medicare - NGS Medicare Primary [id number] Self [id number] For Life - WPS Medigap Part B [id number] Self [id number] Medicare (Part A) Medicare Primary [id number] Self [id number] Medicare (Part B) Medicare Primary [id number] Self [id number] For Life Medigap Part B [id number] Family Dependent [id number] [place] Primary [id number] Self [id number] For Life - WPS Medigap Part B [id number] Self [id number] Medicare (Part A) Medicare Primary [id number] Self [id number] Medicare (Part B) Medicare Primary [id number] Self [id number] For Life Medigap Part B [id number] Family Dependent [id number] [place] Primary [id number] Self [id number] S [employer], [facility] C [id number] S [id number] For Life Medigap Part B [id number] Family Dependent [id number] [place] Medicare Primary [id number] Self [id number] For Life Medigap Part B [id number] Family Dependent [id number] [place] Primary [id number] Self [id number] For Life Medigap Part B [id number] Family Dependent [id number] [place] Primary [id number] Self [id number] For Life WPS Medigap Part B [id number] Self [id number] Medicare [place] Gov't Servi Medicare Primary [id number] Self [id number] For Life Medigap Part B [id number] Family Dependent [id number] [place] Primary [id number] Self [id number] FOR LIFE [id number] SP [id number] For Life Medigap Part B Family Dependent [place] Primary Self FOR LIFE [id number] SP [id number] FOR LIFE [id number] SP [id number] MEDICARE [id number] SP [id number] A RETIREE MEDICAL INSURANCE PLAN [id number] SP [id number] [facility] [id number] SP [id number] [facility] [id number] [id number] A [id number] Problems, Conditions, and Diagnoses Code Display Name Description Problem Type Effective Dates Data Source(s) M79.604 Pain in both lower extremities Pain in both lower extr emities [id number] 01/19/2020 12:00:00 AM EST [facility] Chronic obstructive pulmonary disease wi th (acute) exacerbation Chronic obstructive pulmonary disease with (acute) exacerbation Problem 10/20/2019 12:00:00 AM EDT [facility] ([facility] [id number] Type 2 diabetes mellitus in obese Type 2 diabete s mellitus in obese Problem 10/20/2019 12:00:00 AM EDT [facility] ([facility] [id number] 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 Problem 10/20/2019 12:00:00 AM EDT [facility] ([facility] [id number] 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 Problem 10/20/19 12:00:00 AM EDT [facility] ([facility] I87.2 Venous stasis dermatitis of both lower e xtremities Venous stasis dermatitis of both lower extremities [id number] 07/31/2019 12:00:00 AM EDT [facility] R26.81 Unsteady gait Unsteady gait [id number] 07/31/2019 12:00:00 AM EDT [facility] R54 Frailty Frailty [id number] 07/31/2019 12:00:00 AM ED T [facility] L03.116 Cellulitis of left lower extremity Cellulitis of left lower extremity [id number] 07/31/2019 12:00:00 AM EDT [facility] [id number] Acute on chronic systolic heart failure Acute on chronic systolic heart failure Problem 06/02/2019 12:00:00 AM EDT [facility] ([facility] ) L leg cellulitis L leg cellulitis Diagnosis 07/16/2019 02 :14:00 PM EDT [facility] D69.6 Thrombocytopenia, unspecified Thrombocytopenia, unspec ified Diagnosis [...] anxiety disorders Diagnosis 06/25/2019 02:18:30 PM EDT [facility] 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 Coronary atherosclerosis due to calcifie Diagnosis 06/25/2019 02:18:30 PM EDT [facility] I25.10 Atherosclerotic heart diseas e of [place] coronary artery without angina pectoris Atherosclerotic heart disease of [place] Diagnosis 06/25/2019 02:18:30 PM ED[facility] of [facility] Diagnosis 06/10/2019 02:21:51 PM EDT [facility] Surgeries/Procedures Procedure Description Date Indications Data Source(s) ARTHROCENTESIS ASPIR&/INJECTION MAJOR JT/BURSA 021 12:00:00 AM EST [facility] ([facility] ) Mammogram 01/26/2020 12:00:00 AM [...] ENTIAL Routine 12/08/2019 12/08/2019 12:00:00 AM EDT [facility] BASIC METABOLIC PANEL CALCIUM TOTAL BASIC METABOLIC PANEL Routine 12/08/2019 12/08/2019 12:00:00 AM EDT [facility] ARTHROCENTESIS ASPIR&/INJECTION MAJOR JT/BURSA 020 12:00:00 AM EDT MEDDARLENE ([facility]) X-Ray Hip Unilateral With Pelvis 2-3 Views 05/21/2019 12:00:00 AM EDT [facility] ([facility] ) RADIOLOGIC EXAM KNEE COMPLETE 4/MORE VIEWS 05/21/2019 12:00:00 AM EDT [facility] ([facility]) Results ID Date Data Source [id number] 03/07/2020 11:43:00 PM EST [facility] ([facility] [...] [facility] ID Date Data Source [id number] 03/07/2020 09:42:00 PM EST [facility] ([facility] [...] - SARS-CoV-2 (COVID19) ID Date Data Source [id number] 03/07/2020 09:42:00 PM EST [facility] Name Value Range Interpretation Code Description Data Luz rce(s) Supporting Document(s) SARS-CoV-2 (COVID 19) NEGATIVE - SARS-CoV-2 (COVID19) [facility] This lab was ordered by [facility] a nd reported by [facility]. ID Date Data Source [id number] 01/31/2020 01:53:00 PM EST [facility] ([facility] [...] [facility] ID Date Data Source [id number] 01/31/2020 01:53:00 PM EST [facility] ([facility] Name Value Range Interpretation Code Description Data Luz rce(s) Supporting Document(s) Natriuretic peptide.B prohormone N-Terminal [Mass/volu me] in Serum or Plasma 226 pg/mL [facility] ID Date Data Source [id number] 01/31/2020 01:53:00 PM EST [facility] ([facility] [...] Little GFR Left</content>
<content>ESRD GFR <15 on DRYING CAN WORKER</content>
<content></content> Creatinine For GFR 1.48 mg/dL 0.55-1.30 [...] [facility] ID Date Data Source [id number] 01/31/2020 01:53:00 PM EST [facility] ([facility] [...] [facility] ID Date Data Source [id number] 01/31/2020 01:53:00 PM EST [facility] ([facility] [...] <content>Troponin I Reference Interval f or Siemens Chaplin LOCI:</content>
<content></content>
<content>99th Percentile= 0.00-0.045 ng/ml</content>
<content></content>
<content>Risk Stratification:</content>
<content><= 0.10 ng/ml Decreased Risk for Adverse Clinical</content>
<content>Events.</content>
<content>0.10-1.50 ng/ml Increased Risk for Adverse Clinical</content>
<content>Events. Evaluation of additional</content>
<content>criterion and/or repeat testing in 2-6</content>
<content>hours is suggested to rule out myocardial</content>
<content>damage.</content>
<content>>= 1.50 ng/ml Indicative of Myocardial Injury.</content>
<content></content> ID Date Data Source [id number] 01/31/2020 01:53:00 PM EST [facility] ([facility] [...] % 0.0-3.0 [facility] ([facility] [place] % 6.1 % 0.0-5.0 [facility] ([facility] rivera [...] 10 0.0-0.5 [facility] ([facility] [place] # 0.6 10 0.0-0.8 [facility] ([facility] Baso # 0.0 10 0.0-0.2 [facility] ([facility] ID Date Data Source [id number] 01/24/2020 12:25:00 AM EST [facility] ([facility] Name Value Range Interpretation Code Description Data Luz rce(s) Supporting Document(s) CPK Creatine Phosphokinase 27 U/L 26-192 [facility] ([facility] CK-MB Value Mass 1.2 ng/mL [facility] ([facility] MB/CK Relative Index 4.44 [facility] ([facility] <content>DIAGNOSIS CRITERIA</content>
<content>MMB ng/ml Relative Index (RI)</content>
<content>NON-AMI < or = 5 N/A</content>
<content>GOYAL ZONE > 5 < or = 4</content>
<content>AMI > 5 > 4</content>
<content></content> Troponin I Laboratory test result [facility] ([facility] <content>Troponin I Reference Interval f or Siemens Chaplin LOCI:</content>
<content></content>
<content>99th Percentile= 0.00-0.045 ng/ml</content>
<content></content>
<content>Risk Stratification:</content>
<content><= 0.10 ng/ml Decreased Risk for Adverse Clinical</content>
<content>Events.</content>
<content>0.10-1.50 ng/ml Increased Risk for Adverse Clinical</content>
<content>Events. Evaluation of additional</content>
<content>criterion and/or repeat testing in 2-6</content>
<content>hours is suggested to rule out myocardial</content>
<content>damage.</content>
<content>>= 1.50 ng/ml Indicative of Myocardial Injury.</content>
<content></content> ID Date Data Source [id number] 01/23/2020 09:51:00 PM EST [facility] ([facility] Name Value Range Interpretation Code Description Data Luz rce(s) Supporting Document(s) CPK Creatine Phosphokinase 43 U/L 26-192 [facility] ([facility] Troponin I Laboratory test result [facility] ([facility] <content>Troponin I Reference Interval f or Siemens Chaplin LOCI:</content>
<content></content>
<content>99th Percentile= 0.00-0.045 ng/ml</content>
<content></content>
[...] > 4</content>
<content></content> ID Date Data Source [id number] 01/23/2020 09:51:00 PM EST [facility] ([facility] [...] [facility] ID Date Data Source [id number] 01/23/2020 09:51:00 PM EST [facility] ([facility] [...] MYOCARDIAL INFARCTION 2.5-3.5 ID Date Data Source [id number] 01/23/2020 09:51:00 PM EST [facility] ([facility] Name Value Range Interpretation Code Description Data [facility](s) Supporting Document(s) Red Blood Count 3.74 [...] % 36.0-66.0 [facility] ([facility] [place] % 5.0 % 0.0-5.0 [facility] ([facility] rivera [...] 10 0.0-0.5 [facility] ([facility] [place] # 0.5 10 0.0-0.8 [facility] ([facility] Baso # 0.0 10 0.0-0.2 [facility] ([facility] ID Date Data Source [id number] 01/23/2020 09:51:00 PM EST [facility] ([facility] [...] Little GFR Left</content>
<content>ESRD GFR <15 on DRYING CAN WORKER</content>
<content></content> Sodium Level 139 meq/L 136-145 [facility] [...] [facility] ID Date Data Source [id number] 01/23/2020 09:51:00 PM EST [facility] ([facility] Name Value Range Interpretation Code Description Data Luz rce(s) Supporting Document(s) Natriuretic peptide.B prohormone N-Terminal [Mass/volu me] in Serum or Plasma 519 pg/mL [facility] ([facility] ID Date Data Source [id number] 01/19/2020 02:58:00 PM EST [facility] ([facility] Name Value Range Interpretation Code Description Data Luz rce(s) Supporting Document(s) Hemoglobin A1c/Hemoglobin.total in Blood 6.5 % [facility] ([facility] <content>REFERENCE RANGES:</content><br/ ><content></content>
<content><=5.6% NORMAL</content>
<content>5.7-6.4% SUGGESTS IMPAIRED GLUCOSE METABOLISM/PREDIABETIC</content>
<content>>= 6.5% ABNORMAL</content>
<content></content> Estimated Average Glucose 140 mg/dL 60-110 [facility] ([facility] ID Date Data Source [id number] 01/19/2020 02:58:00 PM EST [facility] ([facility] [...] Little GFR Left</content>
<content>ESRD GFR <15 on DRYING CAN WORKER</content>
<content></content> Sodium Level 138 meq/L 136-145 [facility] [...] [facility] ID Date Data Source [id number] 12/02/2019 07:46:00 PM EDT [facility] ([facility] [...] pathogens. DISCLAIMER: Testing was performed using the [facility] SARS-CoV-2 test. This test was developed and its performance characteristics determined by [facility]. This test has not been FDA cleared [...] or revoked sooner. ID Date Data Source [id number] 12/02/2019 07:06:00 PM EDT [facility] ([facility] [...] [facility] ID Date Data Source [id number] 12/02/2019 07:06:00 PM EDT [facility] ([facility] [...] [facility] ID Date Data Source [id number] 12/02/2019 07:06:00 PM EDT [facility] ([facility] L[facility]y [...] % 24.0-44.0 [facility] ([facility] [place] % 7.1 % 0.0-5.0 [facility] (Nuzhat rivera [...] 10 0.0-0.5 [facility] ([facility] [place] # 0.6 10 0.0-0.8 [facility] ([facility] Lymph # 1.0 10 1.5-5.0 [facility] ([facility] Baso # 0.0 10 0.0-0.2 [facility] ([facility] ID Date Data Source [id number] 12/02/2019 07:06:00 PM EDT [facility] ([facility] [...] [facility] ID Date Data Source [id number] 12/02/2019 07:06:00 PM EDT [facility] ([facility] [...] Lactate Rule: Y ID Date Data Source [id number] 12/02/2019 06:37:00 PM EDT [facility] ([facility] Name Value Range Interpretation Code Description Data Luz rce(s) Supporting Document(s) Troponin I.cardiac [Mass/volume] in Serum or Plasma 0.00 ng/mL 0.00-0 .08 [facility] ([facility] ID Date Data Source [id number] 12/02/2019 06:35:00 PM EDT [facility] ([facility] [...] [facility] ID Date Data Source [id number] 11/24/2019 01:17:00 PM EDT [facility] ([facility]y [...] ([facility] ID Date Data Source [id number] 11/24/2019 01:17:00 PM EDT [facility] ([facility] [...] Little GFR Left</content>
<content>ESRD GFR <15 on [employer]YING [employer]</content>
<content></content> Sodium Level 140 meq/L 136-145 [facility] ([facility] Carbon Dioxide Level 30 meq/L 21-32 [facility] ([facility] Chloride Level 105 meq/L 98-107 [facility] ([facility] Anion Gap 5 meq/L 8-16 [facility] ([facility] Calcium Level 9.2 mg/dL 8.8-10.2 [facility] ([facility] ID Date Data Source [id number] 11/24/2019 01:17:00 PM EDT [facility] ([facility] Name Value Range Interpretation Code Description Data [facility](s) Supporting Document(s) Alt/SGPT 12 U/L 12-78 [...] [facility] ID Date Data Source [id number] 11/24/2019 01:17:00 PM EDT [facility] ([facility] Name Value Range Interpretation Code Description Data [facility](s) Supporting Document(s) CPK Creatine Phosphokinase 26 U/L 26-192 [facility] ([facility] CK-MB Value Mass 1.2 ng/mL [facility] ([facility] Troponin I Laboratory test result [facility] ([facility] <content>Troponin I Reference Interval f or Siemens Chaplin LOCI:</content>
<content></content>
<content>99th Percentile= 0.00-0.045 ng/ml</content>
<content></content>
[...] > 4</content>
<content></content> ID Date Data Source [id number] 11/24/2019 01:17:00 PM EDT [facility] ([facility] Name Value Range Interpretation Code Description Data [facility](s) Supporting Document(s) Erythrocyte sedimentation rate by 2H Westergren method 11 mm/hr 0-3 0 [facility] ([facility] ID Date Data Source [id number] 11/24/2019 01:17:00 PM EDT [facility] ([facility] Langley [...] % 0.0-1.0 [facility] ([facility] [place] % 5.6 % 0.0-5.0 [facility] ([facility] Immature Granulocyte % 0.6 % 0-3.0 [facility] ([facility] Nucleated Red Blood Cell % 0.0 % 0-0 [facility] ([facility] Neutrophils # 6.6 10 1.5-8.5 [facility] ([facility] Lymph # 0.9 10 1.5-5.0 [facility] ([facility] [place] # 0.5 10 0.0-0.8 [facility] ([facility] Baso # 0.0 10 0.0-0.2 [facility] ([facility] Eos # 0.2 10 0.0-0.5 [facility] ([facility] ID Date Data Source [id number] 10/10/2019 02:08:00 AM EDT [facility] ([facility] Langley [...] ([facility] ID Date Data Source [id number] 10/10/2019 02:08:00 AM EDT [facility] ([facility] Langle[facility] [...] Little GFR Left</content>
<content>ESRD GFR <15 on [employer]YING [employer]</content>
<content></content> Potassium Serum 3.9 meq/L 3.5-5.1 [facility] ([facility] Anion Gap 6 meq/L 8-16 [facility] ([facility] Chloride Level 106 meq/L 98-107 [facility] ([facility] Carbon Dioxide Level 29 meq/L 21-32 [facility] ([facility] Calcium Level 9.6 mg/dL 8.8-10.2 [facility] ([facility] ID Date Data Source [id number] 10/10/2019 02:08:00 AM EDT [facility] ([facility] Langle[facility] [...] [facility] ID Date Data Source [id number] 10/10/2019 02:08:00 AM EDT [facility] ([facility] L[facility] [...] <content>Troponin I Reference Interval f or Siemens Chaplin LOCI:</content>
<content></content>
<content>99th Percentile= 0.00-0.045 ng/ml</content>
<content></content>
<content>Risk Stratification:</content>
<content><= 0.10 ng/ml Decreased Risk for Adverse Clinical</content>
<content>Events.</content>
<content>0.10-1.50 ng/ml Increased Risk for Adverse Clinical</content>
<content>Events. Evaluation of additional</content>
<content>criterion and/or repeat testing in 2-6</content>
<content>hours is suggested to rule out myocardial</content>
<content>damage.</content>
<content>>= 1.50 ng/ml Indicative of Myocardial Injury.</content>
<content></content> ID Date Data Source [id number] 10/10/2019 02:08:00 AM EDT [facility] ([facility] Name Value Range Interpretation Code Description Data Luz rce(s) Supporting Document(s) Lactate [Mass/volume] in Serum or Plasma 2.0 mmol/L 0.4-2.0 [facility] ([facility] Y/N query for Sepsis Lactate Rule: Y ID Date Data Source [id number] 10/10/2019 02:08:00 AM EDT [facility] ([facility] Langley [...] % 36.0-66.0 [facility] ([facility] [place] % 5.9 % 0.0-5.0 [facility] (Nuzhat rivera [...] 10 1.5-5.0 [facility] ([facility] [place] # 0.5 10 0.0-0.8 [facility] ([facility] Eos # 0.0 10 0.0-0.5 [facility] ([facility] Baso # 0.0 10 0.0-0.2 [facility] ([facility] ID Date Data Source [id number] 10/10/2019 02:08:00 AM EDT [facility] ([facility] Langley [...] Venous Standard Hco3 23.7 meq/L [facility] ( [facility] ID Date Data Source [id number] 09/06/2019 08:45:00 AM EDT [facility] ([facility]) Name Value Range Interpretation Code Description Data Luz rce(s) Supporting Document(s) PDFReport Laboratory test result [facility] ([facility]) FVC-Pre 1.51 L [facility] ([facility], ) FVC-Pred 2.49 L [facility] ([facility], ) FVC-LLN 1.84 L [facility] ([facility], ) FVC-%Pred-Pre 60 L [facility] ([facility], ) Fev1-Pred 1.86 L [facility] ([facility], ) Fev1-%Pred-Pre 67 L [facility] ([facility], ) Fev1-Pre 1.26 L [facility] ([facility], ) Fev6-Pre 1.51 L [facility] ([facility], ) Fev1-LLN 1.31 L [facility] ([facility]) Fev6-Pred 2.36 L [facility] ([facility]) Hhd0lco-Pll 83 % [facility] ([facility], ) Asy2psm-Mcyf 74 % [facility] ([facility], ) Fev6-LLN 1.72 L [facility] ([facility], ) Fev6-%Pred-Pre 64 L [facility] ([facility], ) Gta2bjz-Lcxl 95 % [facility] ([facility]) Jre1nvh-Gwt 100 % [facility] ([facility]) Xxw6hkv-AAU 65 % [facility] ([facility]) Urv1bmv-%Pred-Pre 111 % [facility] ([facility], ) Pjb3eag-%Pred-Pre 105 % [facility] ([facility]) FEFMax-Pre 1.95 L/E/sec [facility] ([facility], ) FEFMax-Pred 4.77 L/E/sec [facility] ([facility]) FEFMax-%Pred-Pre 40 L/E/sec [facility] ([facility]) FEFMax-LLN 3.16 L/E/sec [facility] ([facility], ) Lsw1827-Tsko 1.45 L/E/sec [facility] ([facility]) Hdo6552-Ujz 1.39 L/E/sec [facility] ([facility]) Xix5022-DJV 0.28 L/E/sec [facility] ([facility]) ExpTime-Pre 6.05 sec [facility] ([facility]) Lns0709-%Pred-Pre 96 L/E/sec [facility] ([facility]) Try1jpo8-Ksk 83 % [facility] ([facility]) Nmx4nuw0-EOH 69 % [facility] ([facility]) Gyt5shz7-%Pred-Pre 106 % [facility] ([facility]) Rqi2mck1-Ywou 78 % [facility] ([facility]) ID Date Data Source [id number] 08/29/2019 11:39:00 AM EDT [facility] ([facility] Langley [...] [facility] ID Date Data Source [id number] 08/29/2019 11:39:00 AM EDT [facility] ([facility] Name Value Range Interpretation Code Description Data Luz rce(s) Supporting Document(s) Hemoglobin A1c 8.1 % [facility] ([facility] REFERENCE RANGES: 4.5-5.6% NORMAL 5.7-6.4% SUGGESTS IMPAIRED GLUCOSE META BOLISM >= 6.5% ABNORMAL Estimated Average Glucose 186 mg/dL 60-110 [facility] ([facility] ID Date Data Source [id number] 08/29/2019 11:39:00 AM EDT [facility] ([facility] Name Value Range Interpretation Code Description Data [facility](s) Supporting Document(s) Magnesium [Mass/volume] in Serum or Plasma 2.0 mg/dL 1.8-2.4 [facility] ([facility] ID Date Data Source [id number] 08/29/2019 11:39:00 AM EDT [facility] ([facility]uzhat Langley [...] Little GFR Left</content>
<content>ESRD GFR <15 on [employer]YING [employer]</content>
<content></content> Sodium Level 141 meq/L 136-145 [facility] [...] [facility] ID Date Data Source [id number] 08/23/2019 12:14:00 PM EDT [facility] (Nuzhat Langley [...] Little GFR Left</content>
<content>ESRD GFR <15 on [employer]YING [employer]</content>
<content></content> Creatinine For GFR 1.14 mg/dL 0.55-1.30 [...] [facility] ID Date Data Source [id number] 07/31/2019 05:43:00 AM EDT [facility] Name Value Range Interpretation Code Description Data Luz rce(s) Supporting Document(s) SARS coronavirus 2 RNA [Presence] in Uns pecified specimen by TEO with probe detection [facility] This lab was ordered by [facility] and reported by [facility] ID Date Data Source [id number] 07/27/2019 01:30:00 PM EDT [facility] ([facility] Name Value Range Interpretation Code Description Data Luz [facility](s) Supporting Document(s) Vancomycin [Mass/volume] in Serum or Plasma --trough 11.9 UG/ML 10.0- 20.0 [facility] ([facility] C reactive protein [Mass/volume] in Serum or Plasma by High sensitivity method 1.74 mg/dL 0.00-0.30 [facility] ([facility] ID Date Data Source [id number] 07/27/2019 01:30:00 PM EDT [facility] ([facility] Langley [...] Little GFR Left</content>
<content>ESRD GFR <15 on [employer]YING [employer]</content>
<content></content> Sodium Level 140 meq/L 136-145 [facility] [...] [facility] ID Date Data Source [id number] 07/27/2019 01:30:00 PM EDT [facility] ([facility] Name Value Range Interpretation Code Description Data [facility]z [facility](s) Supporting Document(s) Erythrocyte sedimentation rate by 2H Westergren method 23 mm/hr 0-3 0 [facility] ([facility] ID Date Data Source [id number] 07/27/2019 01:30:00 PM EDT [facility] ([facility]uzhat Langley [...] [facility] ID Date Data Source [id number] 07/20/2019 05:12:00 AM EDT [facility] ([facility] Name Value Range Interpretation Code Description Data [facility]z [facility](s) Supporting Document(s) Erythrocyte sedimentation rate by 2H Westergren method 41 mm/hr 0-3 0 [facility] ([facility] ID Date Data Source [id number] 07/20/2019 05:12:00 AM EDT [facility] ([facility]uzhat Langley [...] % 36.0-66.0 [facility] ([facility] [place] % 6.1 % 0.0-5.0 [facility] (Nuzhat rivera [...] % 0-3.0 [facility] ([facility] [place] # 0.8 10 0.0-0.8 [facility] ([facility] Neutrophils # 10.5 10 1.5-8.5 [facility] ([facility] Lymph # 1.3 10 1.5-5.0 [facility] ([facility] Baso # 0.1 10 0.0-0.2 [facility] ([facility] Eos # 0.2 10 0.0-0.5 [facility] ([facility] ID Date Data Source [id number] 07/20/2019 05:12:00 AM EDT [facility] ([facility] Name Value Range Interpretation Code Description Data [facility]z [facility](s) Supporting Document(s) C reactive protein [Mass/volume] in Serum or Plasma by High sensitivity method 3.25 mg/dL 0.00-0.30 [facility] ([facility] ID Date Data Source [id number] 07/20/2019 05:12:00 AM EDT [facility] ([facility] Langley [...] Little GFR Left</content>
<content>ESRD GFR <15 on [employer]YING [employer]</content>
<content></content> Blood Urea Nitrogen 18 mg/dL 7-18 [...] [facility] ID Date Data Source [id number] 07/12/2019 11:38:10 AM EDT [facility] Name Value Range Interpretation Code Description Data Luz rce(s) Supporting Document(s) &PDF [facility] VFOYCe3qXzGNPzVv96/CLSocJIQht9IeTTuiVMl8THgzTMWvW4IlbEtxSUWPKjRRNZUcZF4UR8LCUpZv yKE [file] AgICAgICAgICAgICAgICAgICAgICAgICAgICAgICAgICAgICAgICAgICAgICAgICAgICAgICAgICAgIC NeSVWyVMBmLHBjLBVyKLApAHAtSACcZGLsMHReEDPfJQRsQJMjNA0DCUJvPAEoVFAnDSKiOPBsBMVmJT AgICAgICAgICAgICAgICAgICAgICAgICAgICAgICAg OJVdANQzLFKdTEHnGNOmNKPeNIUbTJGoPLFpENTaHOTwHYMyXSGvVNZjOYSlWKQkVA8WJHRhTDQlQTWd ICAgICAgICAgICAgICAgICAgICAgICAgICAgICAgICAgICAgICAgICAgICAgICAgICAgICAgICAgICAg ICAgICAgICAgICAgICAgICAgICAgICAgICAgICAgIA 0KICAgICAgICAgICAgICAgICAgICAgICAgICAgICAgICAgICAgICAgICAgICAgICAgICAgICAgICAgIC RhJLUoBGUrIROsTPOgAYAqNKNtKKJfSCAhOBYsBJGmYBAhZIHyLZLiQC8WLCTfOVQqDJRbTCCzVGQoRI AgICAgICAgICAgICAgICAgICAgICAgICAgICAgICAg XXHxDJXfCIObFIPqBQLzVGUxFVClLWYdHHUmZHPvIYDrOKCqVTTfFXCsAVPbTBSoDLXbEJ9GFQCkHQQm ICAgICAgICAgICAgICAgICAgICAgICAgICAgICAgICAgICAgICAgICAgICAgICAgICAgICAgICAgICAg ICAgICAgICAgICAgICAgICAgICAgICAgICAgICAgIC GtGR0ZPRRcAQCkLQWqLXBfGECkBTZsNHTvNREfJFDuIYQqFEEyJDOqHOZrOIHyFIRgUVRuTBKjLMAeVO QfIOZxQPZhDQWnKILuFAVnUQKiYNYgQKCiRANkEVCcBJCyPJMfXQPjLXYlIC8FKZFfYCIcGOVzUUKpSP AgICAgICAgICAgICAgICAgICAgICAgICAgICAgICAg HWXjSSSwHNWsDXYxPAFgEECdEVCtFTQgHCPpINKkNXUmENAvCUIaMLTeTQSnLNVfHKUbYOMeAO2KMVMw ICAgICAgICAgICAgICAgICAgICAgICAgICAgICAgICAgICAgICAgICAgICAgICAgICAgICAgICAgICAg ICAgICAgICAgICAgICAgICAgICAgICAgICAgICAgIC XpCRHyMR9IEIXoNACoPEUxOOPnQMHoOFBqKTUmSMNiIMRsVITwPSLgBFCvUAQmTUGdLMDeGDHyJSAuPK XvVNGeENCqKMVmGEYaYJJvEIVfEUPwPOPwIAJdRCHpIUOtAGDqDQKvWRAfVKZsZL1GKT94hSOfa0J1IV OyAD5gkmf/Dt7TNPtsfbZigBXqIB6XEtXnMG6hth0U FjAhVY2hpy5DNJyNJqJxS1W1zTRrTRIwBVEBJoJcN67kSNumAj31ZPvqRQOyOtLdAMi9Ov9MJsFdJ9xy BSCoXjL0UQBrNfL4XPZjLaByIRitFZ9Uq5UpsRUhCYe+Wz9SFR2pu9AtZKagYqQqAM0clv5FWHcIYaRu Z8C9sMCdW8I6VFctMm8YRPZmJYSwNmEqIJOBOYrhKU 3NUQ1czgM9LV2KrKJrPXIwFEQoqZEqXHw4M48cpFUlSGyhDK2VHFF+John+Iy0QROXvOMUfCQYwQtCiWU YCFfQhQ26llOWeGTTzLFU8VXAeUa6HAAKwU4QmtzTdrOjxnsNzQOMzUUJPJA0HSKmntgBzfHNufGkiIL 79gPnqMZ8RHs0SLbTbDB8zcc3PrCByCy4CGPIaDm5U CSJwGGOvRQAmLMN8MWYlLeErVHmiGORrCHCtYCX2OXWwDTRbID2PGeMyADCrEfP0AuweJSGbBIMkjs1N CZMvMHBdRWX1WhCcLHEgVVWsWFoeSYPeBVBfFXacQZFuVVMdVW3ACwIoFJXcZBK6PcAeWGSwFMOfbq4E JAFnMAIxXmIhWYZgQFFlYUSqMRewXRBvMJN5FFnaNV QrPZYnWZ1WDcSyXZRbIIKkBMeyBREvULLvys3PEJZyAKCjCLY3SoSlEVLlVBJrKBujHSPeHEP0BMMsIJ JbYJBjXB8FQcYwYUCfHZI6IxBzGBAaVGIdak8RWXIeYMEeDvA2AmNzHHAyZKDiBQajVFFaVYX0Rar8JU CcSYGoYF4HKiPzZSMcYMI0BTAdXGBsBBTxve3CRSYb QVCbJTvsSWHhQGTjYAQaVEngUFMyULNsMSP2PVDlGVJlNN3VKeHlNVLbXLFpPbapXTRnWARitv2TDVYa BIJtEsAsTcPmLANeILMtDIzmWOCrXEOzQsY8ALRgNICaZZ3YJmQhNLIqLFB9INKpWYFbVBJsrv8UVMJn LFSeVio1YWOkTHInRZKmTKxzRUTfAMZ8UYB0OMPiBB AcMV9CViZaCYDlRHp1XzqrQGTbUKXfdt1GRWFmHEXaLeb7HgYcFRVyJECzXEupMHGyCBGkWdQfYTStGA DhAX0UOhJrDFKtAdB1YKhnFZIiOMMpoc0HoWPbtKrmeb0WYGaKKy6RxUusLZG9WEdvNc2oxLCmXjGqGJ SDMs2SclNlHOPuGYFTMPjwTUIjIIypRNIfIRL6YLL1 NCZsCVHjTnidSMQiUhKzATXgXAHrXnY1ESWiT2NjTCinMfI6NWQ4RFVmX9N1HZMqBzC2ItBsOkR+IF0g DQo+Ni7Eu3PlulL5mjYnXGraJQzeRP7MMMPQH4CSNo== ID Date Data Source [id number] 07/06/2019 03:31:00 PM EDT [facility] ([facility] Langley [...] ([facility] ID Date Data Source [id number] 07/06/2019 03:31:00 PM EDT [facility] ([facility]hat Langley [...] Little GFR Left</content>
<content>ESRD GFR <15 on [employer]YING [employer]</content>
<content></content> Blood Urea Nitrogen 17 mg/dL 7-18 [...] [facility] ID Date Data Source [id number] 07/06/2019 03:31:00 PM EDT [facility] ([facility]uzhat Langley [...] [facility] ID Date Data Source [id number] 07/06/2019 03:31:00 PM EDT [facility] ([facility] Name Value Range Interpretation Code Description Data Luz rce(s) Supporting Document(s) Erythrocyte sedimentation rate by 2H Westergren method 23 mm/hr 0-3 0 [facility] ([facility] ID Date Data Source [id number] 07/06/2019 03:31:00 PM EDT [facility] (Nuzhat Langley [...] pg 27.0-33.0 [facility] ([facility] [place] % 6.1 % 0.0-5.0 [facility] (Nuzhat rivera [...] 10 0.0-0.2 [facility] ([facility] [place] # 0.8 10 0.0-0.8 [facility] ([facility] ID Date Data Source [id number] 07/06/2019 03:31:00 PM EDT [facility] ([facility] Name Value Range Interpretation Code Description Data Luz rce(s) Supporting Document(s) aPTT in Platelet poor plasma by Coagulation assay 33.2 s 25.0-38. 4 [facility] ([facility] ID Date Data Source [id number] 07/06/2019 03:31:00 PM EDT [facility] (Nuzhat Langley [...] MYOCARDIAL INFARCTION 2.5-3.5 ID Date Data Source [id number] 07/04/2019 01:39:00 AM EDT [facility] ([facility]uzhat Langley [...] [facility] ID Date Data Source [id number] 07/04/2019 01:37:00 AM EDT [facility] (Nuzhat Langley [...] AFTER 5 DAYS ID Date Data Source [id number] 07/04/2019 01:22:00 AM EDT [facility] ([facility] Name Value Range Interpretation Code Description Data [facility]) Supporting Document(s) Blood Culture Laboratory test result [...] AFTER 5 DAYS ID Date Data Source [id number] 07/04/2019 01:22:00 AM EDT [facility] ([facility] Name Value Range Interpretation Code Description Data [facility](s) Supporting Document(s) C reactive protein [Mass/volume] in Serum or Plasma by High sensitivity method 0.65 mg/dL 0.00-0.30 [facility] ([facility] ID Date Data Source [id number] 07/04/2019 01:22:00 AM EDT [facility] ([facility] Name Value Range Interpretation Code Description Data [facility](s) Supporting Document(s) Glucose, Fasting 158 mg/dL 70-100 [...] Little GFR Left</content>
<content>ESRD GFR <15 on [employer]YING [employer]</content>
<content></content> Potassium Serum 3.9 meq/L 3.5-5.1 [facility] [...] [facility] ID Date Data Source [id number] 07/04/2019 01:22:00 AM EDT [facility] ([facility] Name Value Range Interpretation Code Description Data Luz rce(s) Supporting Document(s) Erythrocyte sedimentation rate by 2H Westergren method 6 mm/hr 0-3 0 [facility] ([facility] Lactate [Mass/volume] in Serum or Plasma 1.2 mmol/L 0.4-2.0 [facility] ([facility] Y/N query for Sepsis Lactate Rule: Y ID Date Data Source [id number] 07/04/2019 01:22:00 AM EDT [facility] (Nuzhat Langley [...] % 0.0-3.0 [facility] ([facility] [place] % 5.8 % 0.0-5.0 [facility] ([facility] Baso % 0.2 % 0.0-1.0 [facility] ([facility] Immature Granulocyte % 1.5 % 0-3.0 [facility] ([facility] Neutrophils # 9.2 10 1.5-8.5 [facility] ([facility] Nucleated Red Blood Cell % 0.0 % 0-0 [facility] ([facility] [place] # 0.7 10 0.0-0.8 [facility] ([facility] Baso # 0.0 10 0.0-0.2 [facility] ([facility] Lymph # 1.8 10 1.5-5.0 [facility] ([facility] Eos # 0.1 10 0.0-0.5 [facility] ([facility] ID Date Data Source [id number] 06/20/2019 10:17:21 PM EDT [facility] Name Value Range Interpretation Code Description Data Luz rce(s) Supporting Document(s) &PDF [facility] PVICKi3wIoOBFoRt36/WCOuuLTPgn6LuFOzoXAq5FPbdYPTyP2NgcQgoGLBDDuVDTAQnUD9OW3XXBiNa oRX [file] ++Tx/FV7ns/9vW/Bq3XFMJzmNE5HH+8u7USEBJ0R7TvuxMKZ6NJs4fLGHkE9Wzhbo/zLKcclauu MxPXdvI04zI2EiHkU147lVF814mOolnInjkblFml5DBY7FM72rqyoQ6pN0g6pHavZmNg96om+hpw3mwk EKvUS6xFOTi1jeHFRmC7vi3npsGJOAt6e2pUivmunf Tqc0Sn6tfAIJ8wUWdtTAxiSWQMB44rjA0GdK+mqRoqYyV0/IindtIsezw+OROgCGy1B4MvZRs1v140ZT qeOBXHTPBFW3ttRGmODKTtQExcyGuNRN57W50npv5vnZL5x3vytEa/mVNVi2Zd+wvZx08aT5D0QZUd8W jlQdnvsfLOqoRKy0L9s9CPnQVRoYB3y32+X+9gEN2y 5sdj2iTx5jmjsCYlRl7/bv++VqHjQ7axSWZjOrUennpZq9BWEiD3KR6WHKnZUdQCpUrhlNTnd5LDsvOS 7X0tn3+nqRuRsdK5s95Hu+fHsyMEcA37FJK5t04nOzAocmvCM75eoVL6GHGv//I6EaL0SsjRaQj/4t94 StaP/dutCwvgaUcTrxsG4V046ifNVVfiIV9K87ks8z 5IWRVO0qALGIutR1Fzmp+Gm3KlzzyISopex4Vze3zTUv/F51qFQRIWCI4ButSAFWzh92F/RGYcb7krj4 AZHR4Tuw//eB6xATIxp+x8AP688mj9NgGYSvEVNg7gjtIbada7os+c++Wrzk9v4ZCm3AsAPtpxft1iL4 yzsi7r/cyS5muxZs4um5aAFDTNVXh4MTEQqGPxi+clerical and administrative workers [file] 2VBLOkNQ0e9Ngze7ejW+EDwmn/8/VICTOR HUGO/A/LbE2VRTkYzYPG0wsVteM5ZAE1dn0UgMAdwCYQsJZ4tof2W [file] ICAgICAgICAgICAgICAgICAgICAgICAgICAgICAgICAgICAgICAgICAgICAgICAgICAgICAgICAgICAg EIUmESJkCEGnUF2QZFQdZJIvASRrWCInTCQnYQMeSE AgICAgICAgICAgICAgICAgICAgICAgICAgICAgICAgICAgICAgICAgICAgICAgICAgICAgICAgICAgIC AjJYUhJMYcELNzUBJhYGCvEZRhRJ0BJTOtRJKjDMFoMPZrWCNqUHOhLBNwWBWaXHBsTZWwMZWxRNNuCI AgICAgICAgICAgICAgICAgICAgICAgICAgICAgICAg KDQbMGUxPRUnLPVgPONzTGScONBaAUVaYWOdAGFsPI0BMDInDZNiLAVtFJJfMKMgEULfGCIpXFJbHHBy ICAgICAgICAgICAgICAgICAgICAgICAgICAgICAgICAgICAgICAgICAgICAgICAgICAgICAgICAgICAg QEUtIUSjRDGcGILbIN4KDHLyINByIEZaSZHxUSHdGO AgICAgICAgICAgICAgICAgICAgICAgICAgICAgICAgICAgICAgICAgICAgICAgICAgICAgICAgICAgIC DlEESzQMLvBKCgYUWhHAUoRPFyAPTaML1ZNJSpYHAmKQImWCPzNKVgZNWuTLHwLLHaYFIfGSAxERDpUD AgICAgICAgICAgICAgICAgICAgICAgICAgICAgICAg MLJkRSGwHLNzZCLpARKhGFFbSEXmGMFiIYAsXEBzKMObVI5IOFIxUMTzXNYqDENuOAGaXRTgURFuIXGa ICAgICAgICAgICAgICAgICAgICAgICAgICAgICAgICAgICAgICAgICAgICAgICAgICAgICAgICAgICAg ZLNlLJQcAJEtKQHgZPLmST9AVWTtBFTlHVIdBASdIK AgICAgICAgICAgICAgICAgICAgICAgICAgICAgICAgICAgICAgICAgICAgICAgICAgICAgICAgICAgIC PxOPRwKGEtQFCvTHPlQGUiTQUeVGRpDIYjTK3ZXYVjAOIyJCUpMKCuXLEeQJJeBXOfEMQuKWCjEMKcIU AgICAgICAgICAgICAgICAgICAgICAgICAgICAgICAg ILBxASRyNMWfDQBrVRVgCEUlWLVoCFTeRMKtYVJlVJJkZBCkUC5BZBLqLJMjHUXiIWFyOZBgXJJiIBAi ICAgICAgICAgICAgICAgICAgICAgICAgICAgICAgICAgICAgICAgICAgICAgICAgICAgICAgICAgICAg RMYuVMPtQUHjYJNjLWPoIKTgRW0ASO72dOCem9J5NB XaQF0tpre/Cq8SQQtuhqCjwLOsIH0LTkJyIT0sbk6TQgJnCW1zrk4NZZsCYhPlQ1M5nKFdWMAtYZTRXw HmB66rKRvsSf32KZdgKJIrHqHjBHz7Uz5VVrBvD0anCAFtLlQ6DHQdIoJ0BEBxKbFvTRtjBY2Ea0LxgV AyDQo+Un6LSV8cc3XtNVihSaTfKL5dyi4EIEuZAgRy G8U3iWAaX6C6TOehAj8EHOExWQVpVpQgGUDKPZgtAT5GMG8xaaS4DV2UwUDzBZTnGPMxdWXwWGc7R27m tIHfDDujJF4CVIP+John+Zh7UVQRbARJdCOOtYfBaMCYBZmPhK54maFDyCMEuIWNuDEAlGb8WJVOhE2Vm zfAwuIgoqaDcRWVsRIIIBJ5SFRacqnXsbIKewZujTL 67mGqbIW6RDd8PCxXrVA4xdk8PdFHpZt7ETYHhDK5JKOWoDSLjXEEfKAP6YAPxOkKfFHfgZHHuWUIiTL W4FNNrWBSiXD7SJvNmEVChZZwaBaFdMVWvIMHumu2GLAFwUTN7DCr1MFMlXLKlSMStHNayUBNcTKHcYL ekVIYqJWQyCJ8XRmTpLXZtPZT7QGXtUETsTHZvpk7C HZFlDGWyVnCtBaCsUPMtGQJnVJkdZYRuJWS5UXUjLDJxLNJlUP4GQvAaOLLjEYEzPdGkXCXzKFHpbo5J CWGgNDAyKbB2ETFdJHGlLRBmVBtkVZAiUCN0CXbaHOWvOHCaVM2UZeCmFVAhOHw1AfLqNDWtKBFoav5Z NCVpLEIcFFTiSXQbSIYoEFUnNZxfFUQfFEL1NRMzAG XiTBZtTB9OGxOuEHLbZYbfVkRjHNKgSWZwtq3KVMSxZIZfKmm2GsIzLUXkEWFbWImmYDIkUXP9SEb1BU NoBYIyUB2IDlNtVIMzDHL6PIQoIHMfYJWvbs8FEJNuEGPiIVL0QlPuHMKdZTRmJBbuTPYoHBM6MzuoOL NiUXTyLJ0YPuYmGVAkTMQ7KeDcSNZwMCEcpu8WBNRs YPMySNqvUCYaHPHwBZZlYPrrRHTsHOQ4BRlkQOGxGGBvQL8LHpQgLXLeYsU8VuioEBNyJARdlt8NRLVp KBDuFAs1TUChRKLeRSPcDAmvWHBfGHA9SZGnMZSeTPUjYT4KVbWwJHOwVMRyWOxaJTBiXBJsxh7KYJSd ZCN3SXR8RxYzOFQtBBDyCDzzQZWeBAFwCYZ5LIEkGG ZlZV4SUmAzEZXqFpBmJQYuWRUgVDXeur6AMTNwTCI6RPu9SsQrFBYaANXcGBfgADEqKUh0BPU7XKXyWE CfWJ9GYjGqROZbSMp4LfUmMSHxXHNstn0IEIGhIJU2EDC8BARhPHAaWODhQXn6jhJnzHYvGMr9DI7FX1 FejiCqOoUNJv5Mf875ILRhOYEoWr3DR0mwBu5sEGAa CDGHIs1DBWg4NXQqWXAsBZZlBIe7AkLeSbT1JFA7E7N3Ovc0AtPdPKL+GNlzFrLyOuVvZCG1OouyIUR1 MrP8FWQ7FyCrEHJ2TnKmNY1oLBKPCb5+RGyevMCnkXmfMHHPGgb5MpUxKDlcZUQISi9Y ID Date Data Source [id number] 05/16/2019 07:23:00 PM EDT [facility] ([facility] [...] [facility] ID Date Data Source [id number] 05/16/2019 06:59:00 PM EDT [facility] ([facility] [...] FOR ESBL</content>
<content></content> ID Date Data Source [id number] 05/16/2019 06:59:00 PM EDT [facility] ([facility] [...] result [facility] ([facility] Specific [place] [facility] RFX 1.004 1.002-1.035 [facility] ([facility] [...] [facility] ID Date Data Source [id number] 05/16/2019 06:47:00 PM EDT [facility] ([facility] Name Value Range Interpretation Code Description Data Luz rce(s) Supporting Document(s) Natriuretic peptide.B prohormone N-Terminal [Mass/volu me] in Serum or Plasma 368 pg/mL [facility] ([facility] ID Date Data Source [id number] 05/16/2019 06:47:00 PM EDT [facility] ([facility] Name Value Range Interpretation Code Description Data [facility](s) Supporting Document(s) CPK Creatine Phosphokinase 39 U/L 26-192 [facility] ([facility] CK-MB Value Mass 1.3 ng/mL [facility] ([facility] Troponin I Laboratory test result [facility] ([facility] <content>Troponin I Reference Interval f or Siemens Chaplin LOCI:</content>
<content></content>
<content>99th Percentile= 0.00-0.045 ng/ml</content>
<content></content>
[...] > 4</content>
<content></content> ID Date Data Source [id number] 05/16/2019 06:47:00 PM EDT [facility] ([facility] [...] % 24.0-44.0 [facility] ([facility] [place] % 3.4 % 0.0-5.0 [facility] ([facility] [...] 10 0.0-0.5 [facility] [place] # 0.4 10 0.0-0.8 [facility] ([facility] [...] Reported 01/19/20 12:00:00 AM EST UNK completed [facility] Smoking 01/19/2020 12:00:00 AM EST Former smoker completed Former smoker [facility] Smoking 09/06/2019 12:00:00 AM EDT Patient is a former smoker completed Patient is a former smoker [facility] ([facility], ) Vital Signs ID Date Data Source UNK Name Value Range Interpretation Code Description Data Source(s) Body mass index (BMI) [Ratio] 46.0 kg/m2 46.0 k g/m2 [facility] ([facility] [place] body weight 105 [lb_av] 105 [lb_av] [facility] [...] k g/m2 [facility] ([facility] [place] body weight 105 [lb_av] 105 [lb_av] [facility] [...] [facility] Heart rate 93 /min 93 /min [facility] Diastolic blood pressure 60 mm[Hg] 60 mm[Hg] [facility] Systolic blood pressure 132 mm[Hg] 132 mm[Hg] [facility] Body mass index (BMI) [Ratio] 46.9 kg/m2 46.9 k g/m2 [facility] ([facility] [place] body weight 105 [lb_av] 105 [lb_av] [facility] [...] k g/m2 [facility] ([facility] [place] body weight 105 [lb_av] 105 [lb_av] [facility] [...] k g/m2 [facility] ([facility] [place] body weight 105 [lb_av] 105 [lb_av] [facility] [...] k g/m2 [facility] ([facility] [place] body weight 105 [lb_av] 105 [lb_av] [facility] [...] k g/m2 [facility] ([facility] [place] body weight 105 [lb_av] 105 [lb_av] [facility] [...] k g/m2 [facility] ([facility] [place] body weight 105 [lb_av] 105 [lb_av] [facility] [...] Diastolic blood pressure 81 mm[Hg] 81 mm[Hg] [facility] Systolic blood pressure 155 mm[Hg] 155 mm[Hg] [facility] Diastolic blood pressure 86 mm[Hg] 86 mm[Hg] [facility] ([facility] Systolic blood pressure 171 mm[Hg] 171 mm[Hg] [facility] Body weight 120.658 kg 120.658 kg [facility], ) Body mass index (BMI) [Ratio] 48.6 kg/m2 48.6 k g/m2 [facility]) Body weight 266.00 [lb_av] 266.00 [lb_av] [facility] ([facility], ) Body height 62 [in_i] 62 [in_i] [facility] ([facility]) 5'2" Body temperature 97.1 [degF] 97.1 [degF] [facility] ([facility]) Oxygen saturation in Arterial blood by Pulse oximetry 94 % 94 % [facility] ([facility]) Heart rate 94 /min 94 /min [facility] ([facility]) Diastolic blood pressure 78 mm[Hg] 78 mm[Hg] [facility] ([facility]) Systolic blood pressure 122 mm[Hg] 122 mm[Hg] M [facility] ([facility]) Body weight 117.936 kg 117.936 kg [facility] ([facility]) Body mass index (BMI) [Ratio] 47.5 kg/m2 47.5 k g/m2 [facility] ([facility]) Body weight 260.00 [lb_av] 260.00 [lb_av] [facility] ([facility]) Body height 62 [in_i] 62 [in_i] [facility] 5'2" Body temperature 97.6 [degF] 97.6 [degF] [facility] ([facility]) Oxygen saturation in Arterial blood by Pulse [...] Body weight 116.122 kg 116.122 kg [facility] ([facility]) Body mass index (BMI) [Ratio] 50.0 kg/m2 50.0 k g/m2 [facility] ([facility]) Body weight 256.00 [lb_av] 256.00 [lb_av] [facility] ([facility]) Body height 60 [in_i] 60 [in_i] [facility] ([facility]) 5'0" Body temperature 98.4 [degF] 98.4 [degF] [facility] ([facility], ) Oxygen saturation in Arterial blood by Pulse oximetry 95 % 95 % [facility] ([facility], ) Room Air Heart rate 94 /min 94 /min [facility] ([facility]) Diastolic blood pressure 84 mm[Hg] 84 mm[Hg] [facility] ([facility]) Systolic blood pressure 132 mm[Hg] 132 mm[Hg] [facility] Body mass index (BMI) [Ratio] 47.0 kg/m2 47.0 k g/m2 [facility] ([facility]) Body weight 249.00 [lb_av] 249.00 [lb_av] [facility] Body height 61 [in_i] 61 [in_i] [facility] ([facility]) 5'1" Body temperature 98.3 [degF] 98.3 [degF] [facility] ([facility]) Patient Treatment Plan of Care Planned Activity Planned Date Details Description Data Source (s) torsemide 20 MG Oral Tablet 01/12/2020 12:00:00 AM EST [facility] Metformin hydrochloride 500 MG Oral Tablet 01/11/2020 12:00:00 AM [facility] Bacitracin 0.5 UNT/MG / Neomycin 0.0035 MG/MG / Polymyxin B 10 UNT/MG Topical Ointment 12/27/2019 12:00:00 AM EST [facility] Albuterol 0.833 MG/ML / Ipratropium [place] 0.167 MG/M L Inhalant Solution 12/27/2019 12:00:00 [...] Release Oral Tablet 06/25/2019 12:00:00 AM EDT [facility] Prednisone 5 MG Oral Tablet [...] / salmeterol 0.05 MG/ACTUAT Dry Powder Inhaler [facility]
[2020-04-06] MEDS ORDERED: MORPHINE 2 MG/ML 1ML VIAL (J2270) IV ONE (17:30)
[2020-04-06 17:47] LABS: BASO % 0.3 % (0.0-1.0); EOS # 0.1 10^3/uL (0.0-0.5); EOS % 1.6 % (0.0-3.0); HEMATOCRIT 33.4 % (36.0-47.0); HEMOGLOBIN 10.4 g/dl (12.0-15.5); LYMPH % 11.5 % (24.0-44.0); MEAN CORPUSCULAR HEMOGLOBIN 29.1 pg (27.0-33.0); MEAN CORPUSCULAR HGB CONC 31.1 g/dl (32.0-36.5); MEAN CORPUSCULAR VOLUME 93.6 fl (80.0-96.0); MONO # 0.5 10^3/uL (0.0-0.8); MONO % 5.7 % (2.0-8.0); NEUTROPHILS # 6.9 10^3/uL (1.5-8.5); NEUTROPHILS % 80.3 % (36.0-66.0); PLATELET COUNT, AUTOMATED 168 10^3/uL (150-450); RED BLOOD COUNT 3.57 10^6/uL (4.00-5.40); WHITE BLOOD COUNT 8.6 10^3/uL (4.0-10.0)
--- NOTE | 2020-04-06 17:50 | REP ---
INDICATION: hip, groin, LLQ pain, no ИРИНА. COMPARISON: None. TECHNIQUE: AP view of the pelvis. FINDINGS: The bony pelvic ring is intact. No pelvic or sacral fracture is seen. There is joint space narrowing and spur formation the left hip consistent with osteoarthritis. Some diffuse osteopenia. IMPRESSION: No acute bony abnormality. Osteoarthritis left hip. <Electronically signed by John Thompson > 04/06/20 [id number]
--- NOTE | 2020-04-06 17:50 | REP ---
INDICATION: hip, groin, LLQ pain, no ИРИНА. COMPARISON: Comparison study 21 February 2012.. TECHNIQUE: AP and frogleg views of the left hip were obtained. FINDINGS: There is fairly advanced osteoarthritis of the left hip with joint space narrowing, spur formation and some sclerosis. There is mild diffuse osteopenia. Femoral head is smooth and rounded. No fracture is seen. IMPRESSION: Moderate left hip osteoarthritis. No acute bony abnormality. <Electronically signed by John Thompson > 04/06/20 [id number]
[2020-04-06 18:16] LABS: ERYTHROCYTE SEDIMENTATION RATE 35 mm/hr (0-30)
[2020-04-06] MEDS ORDERED: ISOVUE-370 76% 100ML VIAL As Ordered ONE (18:43)
--- NOTE | 2020-04-06 19:30 | REPVR ---
PROCEDURE INFORMATION: Exam: CT Abdomen And Pelvis With Contrast Exam date and time: 04/06/2020 6:43 PM Age: 79 years old Clinical indication: Abdominal pain; Additional info: Llq, L groin pain TECHNIQUE: Imaging protocol: Computed tomography of the abdomen and pelvis with contrast. Radiation optimization: All CT scans at this facility use at least one of these dose optimization techniques: automated exposure control; mA and/or kV adjustment per patient size (includes targeted exams where dose is matched to clinical indication); or iterative reconstruction. Contrast material: ISOVUE 370; Contrast volume: 100 ml; Contrast route: INTRAVENOUS (IV); COMPARISON: CT ABD PELVIS W/O CONTRAST 05/19/2017 12:05 AM FINDINGS: Lungs: Spiculated and lobular mass left lower lobe measures 0.9 x 1.6 x 1.3 cm. Findings worrisome for neoplasm. Liver: Normal. No mass. Gallbladder and bile ducts: Normal. No calcified stones. No ductal dilation. Pancreas: Normal. No ductal dilation. Spleen: There is moderate splenomegaly with a maximum span of 15 centimeters. No focal abnormalities demonstrated. Multiple splenic cysts not demonstrated previously measuring up to 1.9 cm. Adrenal glands: There is a focal hypodense mass in the left adrenal gland measuring 1.3 cm., consistent in appearance and density with a benign adrenal adenoma. Finding is stable. Kidneys and ureters: Multiple bilateral simple renal cysts measuring up to 3.3 x 4.6 cm in the mid left kidney. No follow-up suggested. No significant interval change. Nonobstructive calculus lower pole left kidney. Stomach and bowel: Moderate diverticulosis is present in the distal colon. No diverticulitis. Appendix: No evidence of appendicitis. Intraperitoneal space: Unremarkable. No free air. No significant fluid collection. Vasculature: The aortoiliac vessels demonstrate moderate atherosclerotic calcification. Lymph nodes: Unremarkable. No enlarged lymph nodes. Urinary bladder: Unremarkable as visualized. Reproductive: There has been a hysterectomy. Bones/joints: Unremarkable. No acute fracture. Soft tissues: Stable chronic peripherally calcified fluid collection in the anterior abdominal wall measuring 15 x 7.8 x 17 cm. Defect in the anterolateral abdominal wall in the white associated with a small protrusion of: Through the hernia. No obvious incarceration demonstrated however findings should be evaluated clinically. Diffuse thickening of the skin overlying the right side of the panniculus in the lower abdomen may indicate the presence of cellulitis. IMPRESSION: 1. Spiculated and lobular mass left lower lobe measures 0.9 x 1.6 x 1.3 cm. Findings worrisome for neoplasm. Correlation with thoracic CT and possibly PET imaging suggested. 2. Stable chronic peripherally calcified fluid collection in the anterior abdominal wall. 3. There is moderate splenomegaly with a maximum span of 15 centimeters. No focal abnormalities demonstrated. Multiple splenic cysts not demonstrated previously measuring up to 1.9 cm. 4. There is a focal hypodense mass in the left adrenal gland measuring 1.3 cm., consistent in appearance and density with a benign adrenal adenoma. Finding is stable. 5. Multiple bilateral simple renal cysts measuring up to 3.3 x 4.6 cm in the mid left kidney. No follow-up suggested. No significant interval change. 6. There has been a hysterectomy. 7. Moderate diverticulosis is present in the distal colon. No diverticulitis. 8. Defect in the anterolateral abdominal wall in the white associated with a small protrusion of: Through the hernia. No obvious incarceration demonstrated however findings should be evaluated clinically. 9. Diffuse thickening of the skin overlying the right side of the panniculus in the lower abdomen may indicate the presence of cellulitis. COMMENTS: Consistent with the [place] [employer]'s Incidental Findings Committee white paper (J Am Morgan Radiol 2018): Any incidental renal lesion less than 1 cm or classified as too small to characterize, or any incidental cystic renal lesion characterized as simple-appearing, is likely benign. No follow-up imaging is recommended for these lesions per consensus recommendations based on imaging criteria. Electronically signed by: Ang Kruger On 04/06/2020 19:30:52 PM
--- NOTE | 2020-04-06 20:29 | REPVR ---
PROCEDURE INFORMATION: Exam: CT Chest Without Contrast; Diagnostic Exam date and time: 04/06/2020 8:07 PM Age: 79 years old Clinical indication: Abnormal findings; Lung mass or nodule; Not specified; Additional info: Mass lll on CT abd/pelvis TECHNIQUE: Imaging protocol: Diagnostic computed tomography of the chest without contrast. 3D rendering (Not supervised by radiologist): MIP and/or 3D reconstructed images were created by the technologist. Radiation optimization: All CT scans at this facility use at least one of these dose optimization techniques: automated exposure control; mA and/or kV adjustment per patient size (includes targeted exams where dose is matched to clinical indication); or iterative reconstruction. COMPARISON: CT ANGIO CHEST 01/31/2020 2:50 PM FINDINGS: Tubes, catheters and devices: Cardiac pacer device demonstrated. Lungs: Spiculated nodule in the left lower lobe measures 0.8 x 1.7 x 1.2 cm. Findings suspicious for neoplasm. Stable noncalcified 5 mm nodule right lower lobe likely postinflammatory. Reticular subpleural opacities demonstrated in both upper lobes, lingular lobe, both lung bases, findings which may indicate interstitial fibrotic change. Pleural spaces: Unremarkable. No pneumothorax. No pleural effusion. Heart: There is mild atherosclerotic calcification of the coronary arteries. Mild cardiomegaly. Pulmonary arteries: There is enlargement of the central pulmonary arteries, findings which can be associated with pulmonary arterial hypertension which should be correlated clinically. Aorta: There is mild atherosclerosis in the thoracic aorta. Lymph nodes: Unremarkable. No enlarged lymph nodes. Bones/joints: The spine demonstrates mild degenerative changes. Soft tissues: Unremarkable. IMPRESSION: 1. Spiculated nodule in the left lower lobe measures 0.8 x 1.7 x 1.2 cm. Findings suspicious for neoplasm. Highly suspicious nodule(s). Consider PET/CT, or tissue sampling.(Reference: [place]) References: Inocenciahobeni H, et al. Guidelines for Management of Incidental Pulmonary Nodules Detected on CT Images: From the Fleischner Society 2017. Radiology. 2017;284(1):228-243. 2. Reticular subpleural opacities demonstrated in both upper lobes, lingular lobe, both lung bases, findings which may indicate interstitial fibrotic change. 3. There is enlargement of the central pulmonary arteries, findings which can be associated with pulmonary arterial hypertension which should be correlated clinically. 4. Mild cardiomegaly. Electronically signed by: Ang Kruger On 04/06/2020 20:29:55 PM
[2020-04-06] MEDS ORDERED: TRAM50TA2 PO (21:08)
[2020-04-06 21:34] VITALS: BP 158/71
== END 2020-04-06 21:45 | disposition home or self-care (01) ==
LOC: M ED 15:33
DX: M16.12 Unilateral primary osteoarthritis, left hip (principal); R91.8 Other nonspecific abnormal finding of lung field; R10.2 Pelvic and perineal pain; K46.9 Unspecified abdominal hernia without obstruction or gangrene; I11.9 Hypertensive heart disease without heart failure; E11.9 Type 2 diabetes mellitus without complications; G47.33 Obstructive sleep apnea (adult) (pediatric); J45.909 Unspecified asthma, uncomplicated; Z79.51 Long term (current) use of inhaled steroids; Z79.84 Long term (current) use of oral hypoglycemic drugs; Z79.899 Other long term (current) drug therapy; Z88.1 Allergy status to other antibiotic agents; Z88.2 Allergy status to sulfonamides; Z88.6 Allergy status to analgesic agent; Z88.8 Allergy status to other drugs, medicaments and biological substances; Z90.49 Acquired absence of other specified parts of digestive tract; Z95.0 Presence of cardiac pacemaker
CPT/HCPCS: 71250; 72170; 73502; 74177; 80047; 81001; 85025; 85652; 86140; 96374; 99284; J2270; Q9967

== ENCOUNTER → 2020-04-24 | Outpatient (CLI) | payer MEDICARE, OTHER ==
[~2020-04-24] MED LIST changes: +BUPR150T12 PO; -BUPR150T4 PO; +MAGN400T3; +SPIR-10
--- NOTE | 2020-04-24 16:22 | REP ---
INDICATION: STAGING LEFT LOWER LOBE LUNG NODULE. History of breast carcinoma. COMPARISON: Recent CT study of the chest April 06, 2020 showed a left lower lobe pulmonary nodule measuring 1.7 cm in greatest diameter.. Comparison is also made with prior PET-CT study dated September 21, 2015. TECHNIQUE: Forty-eight minutes following the intravenous injection of a 16.35 mCi dose of F-18 FDG, three-dimensional PET scintigraphy is acquired from the skull base to the proximal thighs. Triplanar noncontrast CT scanning is acquired through the same anatomic range for attenuation correction, and image registration with scan parameters optimized to minimize radiation exposure to the patient. PET scintigraphy and CT datasets were fused and displayed on a workstation with multiplanar and projection display capability. FINDINGS: No abnormal hypermetabolic uptake is seen within the head and neck region. A pacemaker is noted. The patient's known left lower lobe pulmonary nodule is again seen unchanged from the recent CT study. This shows barely discernible minimally hypermetabolic uptake, maximum standard uptake value in the left lower lobe nodule is 2.68. There is no other abnormal hypermetabolic uptake within the thorax on today's PET-CT study. I note that the prior PET-CT study showed 2 nodules on the right. Maximum SUV value in the right lower lobe nodule was 2.50 in 2016. Maximum SUV value in the right upper lobe nodule in 2016 was 3.23. Both of these previously noted right-sided nodules have resolved. In the abdomen and pelvis, there is normal hepatic, splenic, gastrointestinal, and genitourinary FDG accumulation. No abnormal abdominal or pelvic hypermetabolic uptake is seen. A large seroma is seen along the anterior abdominal wall similar to the prior study and there are 2 left-sided renal cysts again noted. Today's exam is otherwise unremarkable. IMPRESSION: 1. The comparison prior PET-CT study from 2016 showed 2 right-sided pulmonary nodules which have resolved. See discussion above. 2. Today's PET-CT study demonstrates a 17 mm spiculated nodule in the left lower lobe with a very slightly hypermetabolic activity, SUV 2.68. Primary versus metastatic malignancy not excluded. <Electronically signed by John Thompson > 04/24/20 [id number]
== END ==
LOC: M PLARAD 12:52
PROVIDERS: ATTEND Internal Medicine Pulmonary Disease
DX: R91.8 Other nonspecific abnormal finding of lung field (principal)
CPT/HCPCS: 78815; A9552

== ENCOUNTER → 2020-05-18 | Outpatient (CLI) | payer SELFPAY | LOC: M LABSMTC 10:52 | PROVIDERS: ATTEND Pediatrics | DX: Z11.52 Encounter for screening for COVID-19 (principal) ==

== ENCOUNTER 2020-06-06 22:35 | Emergency (ER) | payer MEDICARE, OTHER, MEDICAID ==
[~2020-06-06] VITALS: Ht 157.5 cm; Wt 109.1 kg
[2020-06-07 00:24] LABS: RSV AMPLIFICATION NEGATIVE (NEGATIVE)
[2020-06-07] MEDS ORDERED: FUROSEMIDE 40MG/4ML VIAL (J1940) IV ONE (00:35)
[2020-06-07] MEDS ORDERED: MORPHINE 4 MG/ML 1ML VIAL/SYRINGE (J2270) IV PRN (00:35)
[2020-06-07] MEDS ORDERED: ONDANSETRON 4MG/2ML VIAL IV ONE (00:35)
[2020-06-07 00:46] LABS: BASO % 0.5 % (0.0-1.0); EOS # 0.2 10^3/uL (0.0-0.5); EOS % 2.6 % (0.0-3.0); HEMOGLOBIN 10.4 g/dl (12.0-15.5); LYMPH # 1.7 10^3/uL (1.5-5.0); LYMPH % 20.2 % (24.0-44.0); MEAN CORPUSCULAR HEMOGLOBIN 28.7 pg (27.0-33.0); MEAN CORPUSCULAR HGB CONC 31.5 g/dl (32.0-36.5); MEAN CORPUSCULAR VOLUME 91.2 fl (80.0-96.0); MONO # 0.6 10^3/uL (0.0-0.8); MONO % 6.9 % (2.0-8.0); NEUTROPHILS # 5.9 10^3/uL (1.5-8.5); NEUTROPHILS % 69.4 % (36.0-66.0); PLATELET COUNT, AUTOMATED 165 10^3/uL (150-450); RED BLOOD COUNT 3.62 10^6/uL (4.00-5.40); WHITE BLOOD COUNT 8.5 10^3/uL (4.0-10.0)
[2020-06-07 01:02] LABS: ALBUMIN 3.3 GM/DL (3.2-5.2); ALT/SGPT 9 U/L (12-78); BILIRUBIN,DIRECT 0.2 MG/DL (0.0-0.2); BILIRUBIN,TOTAL 0.7 MG/DL (0.2-1.0); BLOOD UREA NITROGEN 22 MG/DL (7-18); CALCIUM LEVEL 10.2 MG/DL (8.8-10.2); CARBON DIOXIDE LEVEL 35 MEQ/L (21-32); CHLORIDE LEVEL 99 MEQ/L (98-107); CK-MB VALUE MASS < 1.0 NG/ML (<3.6); CPK CREATINE PHOSPHOKINASE 17 U/L (26-192); CREATININE FOR GFR 1.24 MG/DL (0.55-1.30); GLOMERULAR FILTRATION RATE 44.5 (>39); GLUCOSE, FASTING 124 MG/DL (70-100); MB/CK RELATIVE INDEX 5.88 (< OR =4); NT-PRO BNP 260 PG/ML (<450); POTASSIUM SERUM 3.6 MEQ/L (3.5-5.1); SODIUM LEVEL 140 MEQ/L (136-145); TOTAL PROTEIN 5.5 GM/DL (6.4-8.2); TROPONIN I < 0.02 NG/ML (< 0.10)
--- NOTE | 2020-06-07 01:32 | REPVR ---
PROCEDURE INFORMATION: Exam: XR Chest Exam date and time: 06/07/2020 12:52 AM Age: 79 years old Clinical indication: Cough and dyspnea; Additional info: Dyspnea/cough TECHNIQUE: Imaging protocol: XR of the chest. Views: 1 view. COMPARISON: 1. CT Chest without contrast 2020-04-06 20:06 2. CR PORTABLE CHEST X-RAY 2020-03-07 21:53 3. CR PORTABLE CHEST X-RAY 2020-01-23 23:18 4. CR PORTABLE CHEST X-RAY 2019-10-10 02:23 FINDINGS: Limitations: Limited by patient's body habitus. Tubes, catheters and devices: AICD/Pacemaker device is present, and its leads are in appropriate position. Lungs: See "Vasculature" finding. Pleural spaces: Unremarkable. No pleural effusion. No pneumothorax. Heart/Mediastinum: Cardiac enlargement. Vasculature: Engorged vasculature suggesting mild pulmonary vascular congestion. Bones/joints: Unremarkable. IMPRESSION: Cardiac enlargement. Engorged vasculature suggesting mild pulmonary vascular congestion. Electronically signed by: Km Jackson On 06/07/2020 01:31:35 AM
[2020-06-07 01:50] VITALS: BP 132/58
[2020-06-07] MEDS ORDERED: NORCO 5/325MG TABLET (BULK FOR ED) PO ONE (02:15)
--- NOTE | 2020-06-08 12:40 | ECGEPIP ---
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
== END 2020-06-07 02:46 | disposition home or self-care (01) ==
LOC: M ED 22:35
DX: I50.9 Heart failure, unspecified (principal); G89.29 Other chronic pain; M25.552 Pain in left hip; Z91.14 Patient's other noncompliance with medication regimen; E11.9 Type 2 diabetes mellitus without complications; I10 Essential (primary) hypertension; M19.90 Unspecified osteoarthritis, unspecified site; I51.7 Cardiomegaly; Z79.01 Long term (current) use of anticoagulants; Z79.84 Long term (current) use of oral hypoglycemic drugs; Z79.899 Other long term (current) drug therapy; Z88.0 Allergy status to penicillin; Z88.2 Allergy status to sulfonamides; Z88.1 Allergy status to other antibiotic agents; Z88.5 Allergy status to narcotic agent
CPT/HCPCS: 71045; 80048; 80076; 82550; 82553; 83605; 83880; 84484; 85025; 87631; 93005; 93041; 94760; 96374; 96375; 99285; J1940; J2270; J2405

== ENCOUNTER → 2020-06-19 | Outpatient (CLI) | payer MEDICARE, OTHER ==
[~2020-06-19] MED LIST changes: +ISOVUE-300 61% 50ML VIAL As Ordered ONE; +LIDOCAINE 1% MDV 20ML VIAL As Ordered ONE; +methylPREDNISolone SUSP 40MG/ML 1ML VIAL (DEPO MEDROL) As Ordered ONE
--- NOTE | 2020-06-19 16:30 | REP ---
INDICATION: OSTEOARTHRITIS LEFT HIP. COMPARISON: None TECHNIQUE: The procedure was performed by DIPAK Thomas, under the direct supervision of Dr. Campos. The benefits and risks of the procedure were explained to the patient, and an informed consent was obtained. Directly prior to the start of the procedure, a formal time-out was completed in the procedure room. The left femoral neck joint space was localized using fluoroscopic guidance. The skin was prepped and draped in a sterile fashion. Approximately 5 mL of 1% Lidocaine 10 mg/ml was used as a local anesthetic. Using fluoroscopic guidance, a #22 gauge spinal needle was inserted and advanced into the left femoral neck joint space. Approximately 1 mL of Isovue 300 was injected to verify placement. Five mL of a solution containing 3 mL 1% lidocaine 10 mg/ml and 2 mL Depo-Medrol 40 milligrams/milliliter was injected into the joint space. The needle was removed and hemostasis was achieved. FINDINGS: The patient tolerated the procedure well and there were no immediate complications. IMPRESSION: 1. The fluoroscopic guided intra-articular left hip joint injection. 0.4 minutes of fluoroscopy time was utilized for this procedure. Some fluoroscopic images are performed with last image hold technology. These images require no additional radiation. <Electronically signed by Trinity Rivera > 06/19/20 1622 <Electronically signed by Ez Campos > 06/19/20 1621
== END ==
LOC: M RADPRO 13:56
PROVIDERS: ATTEND Physician Assistant
DX: M16.12 Unilateral primary osteoarthritis, left hip (principal)
CPT/HCPCS: 20610; 77002; J1030; Q9967

== ENCOUNTER → 2020-06-21 | Outpatient (CLI) | payer MEDICARE, OTHER ==
[~2020-06-21] MED LIST changes: -ISOVUE-300 61% 50ML VIAL As Ordered ONE; -LIDOCAINE 1% MDV 20ML VIAL As Ordered ONE; -methylPREDNISolone SUSP 40MG/ML 1ML VIAL (DEPO MEDROL) As Ordered ONE
--- NOTE | 2020-06-21 14:44 | REP ---
INDICATION: PAIN. COMPARISON: Comparison left knee radiographs are from April 10, 2020.. TECHNIQUE: Four views including standing PA and lateral projection images as well as a sunrise view of both knees. FINDINGS: There is mild patellar articular spurring bilaterally consistent with patellofemoral osteoarthritis. There is also non articular spurring on the superior pole of the left patella at the quadriceps tendon insertion. Standing PA views of the knees demonstrate bilateral medial compartment joint space narrowing and sclerosis of the medial femoral condyles. There is medial tibial spurring. The overall diffuse osteopenia is noted. IMPRESSION: Patellofemoral and medial compartment osteoarthritis. Radiographically unchanged on the left when compared with 10 April 2020 study. <Electronically signed by John Thompson > 06/21/20 [id number]
== END ==
LOC: M SOG 13:33
PROVIDERS: ATTEND Orthopaedic Surgery Adult Reconstructive Orthopaedic Surgery
DX: M25.562 Pain in left knee (principal); M25.561 Pain in right knee; M17.0 Bilateral primary osteoarthritis of knee

== ENCOUNTER 2020-07-26 23:28 | Emergency (ER) | payer MEDICARE, OTHER ==
[~2020-07-26] VITALS: Ht 157.5 cm; Wt 104.5 kg
[2020-07-27] MEDS ORDERED: MORPHINE 2 MG/ML 1ML VIAL (J2270) IV ONE (00:30)
--- NOTE | 2020-07-27 01:11 | REPVR ---
PROCEDURE INFORMATION: Exam: XR Chest Exam date and time: 07/26/2020 11:40 PM Age: 79 years old Clinical indication: Other: Chest pain TECHNIQUE: Imaging protocol: XR of the chest. Views: 1 view. COMPARISON: CR PORTABLE CHEST X-RAY 06/07/2020 12:44 AM FINDINGS: Lungs: Lungs are diffusely hypoexpanded. No evidence of pulmonary edema. Pleural spaces: No pleural effusion. No pneumothorax. Heart/Mediastinum: Heart and mediastinal contours are normal, given the degree of inflation. Ill-defined opacity obscuring the left heart border. Pacemaker is present, with right atrial and right ventricular leads. Bones/joints: Osseous structures show no concerning abnormality. Soft tissues: No asymmetry of the extrathoracic soft tissues. IMPRESSION: Hypoexpanded lungs, with suggestion of an ill-defined left basilar airspace infiltrate obscuring the left heart border Electronically signed by: Angelo Lorenz On 07/27/2020 01:11:32 AM
[2020-07-27 01:30] VITALS: BP 117/57
--- NOTE | 2020-07-27 08:43 | ECGEPIP ---
[facility] - ED Test Date: 2020-07-26 Pat Name: MYAH DEAL Department: Room: - Gender: Female Coiled [employer] Supervisor: SOLEDAD : 1940 Requested By: JONES AUGUSTIN Order Number: [id number] Reading MD: Doug Julien Measurements Intervals [place] Rate: 72 P: [place]: 198 QRS: 7 QRSD: 98 T: 46 QT: 438 QTc: 479 Interpretive Statements Atrial-paced rhythm Nonspecific ST and T wave abnormality Electronically Signed on 07-27-2020 8:43:15 EDT by Doug Julien
--- NOTE | 2020-07-27 15:17 | ED PDOC ---
Post-Departure Follow-Up dr ku faxed portable cxr for fu Eunice Pearl MD Jul 27, 2020 15:17
== END 2020-07-27 01:40 | disposition home or self-care (01) ==
LOC: M ED 23:35
DX: M25.552 Pain in left hip (principal); M16.12 Unilateral primary osteoarthritis, left hip; I25.10 Atherosclerotic heart disease of native coronary artery without angina pectoris; I50.9 Heart failure, unspecified; J44.9 Chronic obstructive pulmonary disease, unspecified; E66.9 Obesity, unspecified; Z87.891 Personal history of nicotine dependence; Z79.01 Long term (current) use of anticoagulants; Z79.899 Other long term (current) drug therapy; Z88.0 Allergy status to penicillin; Z88.2 Allergy status to sulfonamides; Z88.1 Allergy status to other antibiotic agents; Z88.5 Allergy status to narcotic agent; Z88.8 Allergy status to other drugs, medicaments and biological substances
CPT/HCPCS: 71045; 84484; 93005; 93041; 94760; 96374; 99285; J2270

== ENCOUNTER → 2020-07-31 | Outpatient (CLI) | payer MEDICARE, OTHER, MEDICAID ==
--- NOTE | 2020-07-31 15:00 | REP ---
INDICATION: ABNORMAL FINDING OF LUNG FIELD COMPARISON: Multiple the latest 04/06/2020 TECHNIQUE: Limited noncontrast enhanced helical technique FINDINGS: Limited evaluation of the mediastinum and pulmonary adalid show no significant changes from the prior exam. No gross mass or adenopathy has developed. There are no pleural or pericardial effusions. The imaged upper abdomen shows splenomegaly. The imaged osseous structures are unchanged. Evaluation of the lung bernal shows a stable nodule in the posterior segment of the right upper lobe. There is an unchanged 7 mm size nodule in the superior segment of the right lower lobe. The spiculated nodule in the left lower lobe is unchanged. Again, it has a maximal dimension of 1.8 cm. Once again, scattered asymmetric densities are seen throughout both lung bernal. Once again, there is cylindrical bronchiectasis. No new abnormal nodules, masses, or opacities seem to have developed. IMPRESSION: No significant change in appearance of the lung bernal. Findings as described above. Since the patient's prior PET-CT of 04/24/2020 showed the large left lower lobe nodule to be hypermetabolic I would suggest repeat PET-CT for follow-up and comparison. <Electronically signed by Guilherme Streeter > 07/31/20 [id number]
== END ==
LOC: M RAD 12:58
PROVIDERS: ATTEND Internal Medicine Pulmonary Disease
DX: R91.8 Other nonspecific abnormal finding of lung field (principal); I50.42 Chronic combined sys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

== ENCOUNTER → 2020-07-31 | Outpatient (CLI) | payer MEDICARE, OTHER, MEDICAID ==
[2020-07-31 14:43] LABS: CALCIUM LEVEL 9.7 MG/DL (8.8-10.2); CREATININE FOR GFR 1.33 MG/DL (0.55-1.30); GLOMERULAR FILTRATION RATE 41.1 (>39); POTASSIUM SERUM 2.9 MEQ/L (3.5-5.1)
== END ==
LOC: M LAB 13:10
PROVIDERS: ATTEND Nurse Practitioner Family
DX: I50.42 Chronic combined sys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 (principal)

== ENCOUNTER → 2020-08-07 | Outpatient (CLI) | payer MEDICARE, OTHER, MEDICAID ==
[~2020-08-07] MED LIST changes: -DOXY100C37 PO; +DOXY1CAP62 PO; +ISOVUE-370 76% 100ML VIAL As Ordered ONE
--- NOTE | 2020-08-07 17:00 | REP ---
INDICATION: UNILAT OSTEOARTHRITIS, R/O FX, EVAL EXTENT OF OA. COMPARISON: Bone window technique through prior CT the pelvis of 04/06/2020. No prior dedicated left hip CTs for comparison. TECHNIQUE: 2.76 and 3 mm increments were utilized stopping standard helical technique and reconstructed in both sagittal and coronal planes. FINDINGS: There is evidence of moderate to severe asymmetric hip joint space narrowing with subchondral sclerosis involving both femoral and acetabular components of the left hip along with small subchondral cysts. There is prominent femoral head marginal osteophytosis with acetabular marginal osteophyte formation as well. There is no acute fracture, dislocation, or subluxation. There is no CT evidence of a gross joint effusion. There is no evidence of a mass or mass effect. Chronic changes are seen involving the left sacroiliac joint. IMPRESSION: Chronic changes as described above and without evidence of significant change compared to the prior exam although they are somewhat technically different. <Electronically signed by Guilherme Streeter > 08/07/20 [id number]
== END ==
LOC: M RAD 15:54
PROVIDERS: ATTEND Physician Assistant Surgical
DX: M16.12 Unilateral primary osteoarthritis, left hip (principal)

== ENCOUNTER → 2020-09-11 | Outpatient (CLI) | payer MEDICARE, OTHER, MEDICAID ==
[~2020-09-11] MED LIST changes: +ISOVUE-300 61% 50ML VIAL As Ordered ONE; -ISOVUE-370 76% 100ML VIAL As Ordered ONE; +LIDOCAINE 1% MDV 20ML VIAL As Ordered ONE; +TRIAMCINOLONE ACETONIDE SUSP 40 MG/ML VIAL (J3301) As Ordered ONE
--- NOTE | 2020-09-12 08:02 | REP ---
INDICATION: LT HIP OA W/ PAIN. COMPARISON: None. TECHNIQUE: The procedure was performed under the direct supervision of Dr. Thompson. The benefits and risks including but not limited to pain infection and bleeding and anaphylaxis were explained to the patient and informed consent was obtained. The left femoral neck was localized using fluoroscopic guidance. The skin was prepped and draped in a sterile fashion. 1% lidocaine was used as a local anesthetic. Using fluoroscopic guidance, and last image hold technology, a 22-gauge spinal needle was inserted and advanced to the femoral neck. 0.5 ml of Isovue-300 was injected to verify placement. Six ml of a solution containing 5 ml of 1% Xylocaine and 1 mL of Kenalog 40 mg was injected. The needle was then removed. The patient tolerated the procedure well and there were no immediate complications. Less than 6 seconds of fluoro time was utilized for this procedure. FINDINGS: None IMPRESSION: Fluoro guided left hip injection. <Electronically signed by Daryl Barba > 09/11/20 0732 <Electronically signed by John Thompson > 09/12/20 0997
== END ==
LOC: M RADPRO 10:20
PROVIDERS: ATTEND Orthopaedic Surgery
DX: M16.12 Unilateral primary osteoarthritis, left hip (principal)
CPT/HCPCS: 20610; 77002; J3301; Q9967

== ENCOUNTER → 2020-10-11 | Outpatient (CLI) | payer MEDICARE, OTHER, MEDICAID ==
[~2020-10-11] MED LIST changes: -DOXY100C PO; +DOXY100C3 PO; -ISOVUE-300 61% 50ML VIAL As Ordered ONE; -LIDOCAINE 1% MDV 20ML VIAL As Ordered ONE; -TRIAMCINOLONE ACETONIDE SUSP 40 MG/ML VIAL (J3301) As Ordered ONE
[2020-10-11 16:50] LABS: ALBUMIN 2.8 GM/DL (3.2-5.2); CALCIUM LEVEL 8.7 MG/DL (8.8-10.2); CHOLESTEROL RISK RATIO 2.13 (<5); CREATININE FOR GFR 1.42 MG/DL (0.55-1.30); GLOMERULAR FILTRATION RATE 38.1 (>39); POTASSIUM SERUM 4.1 MEQ/L (3.5-5.1); TOTAL PROTEIN 5.2 GM/DL (6.4-8.2)
[2020-10-11 16:57] LABS: CREATININE, URINE 52.4 MG/DL; MAU/CREAT RATIO 17.1 MCG/MG (0.0-30.0)
[2020-10-11 19:43] LABS: HEMOGLOBIN A1c 5.9 %
== END ==
LOC: M LAB 15:13
PROVIDERS: ATTEND Nurse Practitioner Family
DX: E11.69 Type 2 diabetes mellitus with other specified complication (principal)

== ENCOUNTER → 2020-10-17 | Outpatient (REF) | payer MEDICARE, OTHER, MEDICAID ==
[~2020-10-17] MED LIST changes: +DICL1GEL3 TOP; +DOXY-342 PO; +DOXY-443 PO; -DOXY1CAP62 PO; -KLOR10TA76 PO; +LOTR1CRE12 TOP; -MAGN400T3; +MAGN400T33; +POTA-136 PO
== END ==
LOC: M LAB REF 16:46
PROVIDERS: ATTEND Internal Medicine Nephrology
DX: N18.32 Chronic kidney disease, stage 3b (principal)

== ENCOUNTER 2020-10-18 13:25 | Emergency (ER) | payer MEDICARE, OTHER, MEDICAID ==
[~2020-10-18] VITALS: Ht 157.5 cm; Wt 109.7 kg
[~2020-10-18 13:25] MED LIST changes: -DICL1GEL3 TOP; -DOXY-342 PO; -LOTR1CRE12 TOP
[2020-10-18] MEDS ORDERED: DICL1GEL3 TOP (13:58)
[2020-10-18] MEDS ORDERED: BIMA01SOL OU (13:58)
[2020-10-18] MEDS ORDERED: OXYC1TAB23 PO (13:58)
[2020-10-18] MEDS ORDERED: LEVO250T12 PO (13:58)
[2020-10-18 14:07] LABS: BASO % 0.4 % (0.0-1.0); EOS # 0.2 10^3/uL (0.0-0.5); EOS % 3.8 % (0.0-3.0); HEMATOCRIT 30.9 % (36.0-47.0); HEMOGLOBIN 9.7 g/dl (12.0-15.5); LYMPH # 0.7 10^3/uL (1.5-5.0); LYMPH % 12.6 % (24.0-44.0); MEAN CORPUSCULAR HEMOGLOBIN 29.3 pg (27.0-33.0); MEAN CORPUSCULAR HGB CONC 31.4 g/dl (32.0-36.5); MEAN CORPUSCULAR VOLUME 93.4 fl (80.0-96.0); MONO # 0.4 10^3/uL (0.0-0.8); MONO % 7.5 % (2.0-8.0); NEUTROPHILS % 74.9 % (36.0-66.0); PLATELET COUNT, AUTOMATED 110 10^3/uL (150-450); RED BLOOD COUNT 3.31 10^6/uL (4.00-5.40); WHITE BLOOD COUNT 5.3 10^3/uL (4.0-10.0)
--- NOTE | 2020-10-18 14:29 | REP ---
INDICATION: DYSPNEA/COUGH. COMPARISON: Comparison chest x-ray July 27, 2020. TECHNIQUE: The FINDINGS: Bipolar pacemaker is seen in the right heart view of the left side as before. Cardiomegaly is again observed unchanged. Pulmonary vasculature is cephalized. There is no evidence of pulmonary edema or pleural effusion. No focal infiltrate is seen. EKG monitoring electrodes are noted. IMPRESSION: Cardiomegaly, cephalization, cardiac pacemaker. CHF pattern. No focal infiltrate seen. <Electronically signed by John Thompson > 10/18/20 [id number]
[2020-10-18 14:30] LABS: BLOOD UREA NITROGEN 20 MG/DL (7-18); CALCIUM LEVEL 8.7 MG/DL (8.8-10.2); CARBON DIOXIDE LEVEL 30 MEQ/L (21-32); CHLORIDE LEVEL 106 MEQ/L (98-107); CK-MB VALUE MASS < 1.0 NG/ML (<3.6); CPK CREATINE PHOSPHOKINASE 15 U/L (26-192); CREATININE FOR GFR 1.34 MG/DL (0.55-1.30); GLOMERULAR FILTRATION RATE 40.7 (>39); GLUCOSE, FASTING 169 MG/DL (70-100); MB/CK RELATIVE INDEX 6.67 (< OR =4); NT-PRO BNP 427 PG/ML (<450); POTASSIUM SERUM 4.3 MEQ/L (3.5-5.1); SODIUM LEVEL 140 MEQ/L (136-145); TROPONIN I < 0.02 NG/ML (< 0.10)
[2020-10-18] MEDS ORDERED: MORPHINE 2 MG/ML 1ML VIAL (J2270) IV ONE (14:40)
[2020-10-18] MEDS ORDERED: FUROSEMIDE 40MG/4ML VIAL (J1940) IV ONE (14:45)
[2020-10-18 15:11] LABS: C REACTIVE PROTEIN QUANTITATIV 1.22 MG/DL (0.00-0.30)
[2020-10-18 15:24] LABS: ERYTHROCYTE SEDIMENTATION RATE 27 mm/hr (0-30)
--- NOTE | 2020-10-18 16:10 | REP ---
INDICATION: swelling. COMPARISON: None. TECHNIQUE: Bilateral lower extremity duplex venous scanning is performed from the groin to the ankle level. FINDINGS: The deep veins are anechoic and fully compressible from the groin to the popliteal fossa in the left and right lower extremity. Color flow imaging is homogeneous. Spectral Doppler interrogation demonstrates intact respiratory variation in flow and normal manual augmentation of flow. There is no evidence of deep vein thrombosis in the femoropopliteal veins. There is no evidence of deep vein thrombosis in the visualized calf veins. IMPRESSION: No evidence of DVT in the femoropopliteal veins. No DVT in the visible portions of the calf veins. <Electronically signed by John Thompson > 10/18/20 [id number]
[2020-10-18 17:38] LABS: RSV AMPLIFICATION NEGATIVE (NEGATIVE)
[2020-10-18] MEDS ORDERED: DOXY-342 PO (18:06)
[2020-10-18] MEDS ORDERED: LOTR1CRE12 TOP (18:06)
[2020-10-18 18:25] VITALS: BP 101/62
[2020-10-18] MEDS ORDERED: DOXYCYCLINE HYCLATE 100MG TABLET PO ONE (19:00)
--- NOTE | 2020-10-18 19:57 | ECGEPIP ---
[facility] - ED Test Date: 2020-10-18 Pat Name: MYAH DEAL Department: Room: - Gender: Female [employer]: YOUSUF : 1940 Requested By: Eunice Middleton Order Number: [id number] Reading MD: Km Awad Measurements Intervals [place] Rate: 70 P: 36 KS: 202 QRS: 12 QRSD: 102 T: 48 QT: 428 QTc: 462 Interpretive Statements Atrial-paced rhythm Nonspecific T wave abnormality Similar to tracing done 07-26-20 Electronically Signed on 10-18-2020 19:57:03 EDT by Km Awad
== END 2020-10-18 18:40 | disposition home or self-care (01) ==
LOC: EDBD 13:25 → M ED 13:25
DX: I50.9 Heart failure, unspecified (principal); L03.90 Cellulitis, unspecified; B35.4 Tinea corporis; E11.9 Type 2 diabetes mellitus without complications; I10 Essential (primary) hypertension; J44.9 Chronic obstructive pulmonary disease, unspecified; F41.9 Anxiety disorder, unspecified; F32.9 Major depressive disorder, single episode, unspecified; Z86.718 Personal history of other venous thrombosis and embolism; Z87.891 Personal history of nicotine dependence; I51.7 Cardiomegaly; Z95.0 Presence of cardiac pacemaker; Z79.84 Long term (current) use of oral hypoglycemic drugs; Z79.899 Other long term (current) drug therapy; Z88.0 Allergy status to penicillin; Z88.2 Allergy status to sulfonamides; Z88.1 Allergy status to other antibiotic agents; Z88.5 Allergy status to narcotic agent; Z88.8 Allergy status to other drugs, medicaments and biological substances
CPT/HCPCS: 36415; 71045; 80048; 82550; 82553; 83880; 84484; 85025; 85652; 86140; 87040; 87631; 93005; 93970; 96374; 96375; 99285; J1940; J2270

== ENCOUNTER 2021-01-21 17:57 | Emergency (ER) | payer MEDICARE, OTHER, MEDICAID ==
[~2021-01-21] VITALS: Ht 157.5 cm; Wt 113.6 kg
[~2021-01-21 17:57] MED LIST changes: +DICL1GEL3 TOP; +DOXY-342 PO; +LOTR1CRE12 TOP
--- OUTSIDE RECORDS SUMMARY | 2021-01-21 18:08 | CCD | Continuity of Care Document ---
Author Author Sana VEGA M.D. Organization Unknown Address [address] [place] [address] Phone [phone] Care Team Providers Care Recovery Collector Name Role Phone Dhaval Manuel MD AUTM [phone] Nuzhat Vega MD AUTM [phone] Roberto Wallace MD AUTM [phone] [facility] General Surgery Practice - Surgery AUTM [phone] Freddy Gallegos MD AUTM [phone] [facility] - Medical Oncology AUTM [phone] [facility] Orthopedics - Sports Medicine AUTM [phone] [facility] Symptom Treatment/Relief AUTM [phone] Problems Active Problems Provider Date Solitary nodule of lung Plepatricia Criselda, NURSING HOME AIDE Onset: 04/10/19 21 Chronic combined systolic and diastolic heart failure Pleska hansa Criselda, NURSING HOME AIDE Onset: 04/10/2020 Hypokalemia Plepatricia, Criselda, NURSING HOME AIDE Onset: 04/10/2020 Atrial fibrillation Pleskgian, Criselda, NURSING HOME AIDE Onset: 04/10/2020 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 Pleskach, Criselda, NURSING HOME AIDE Onset: 04/10/2020 Chronic obstructive lung disease Pleskach, Criselda, NURSING HOME AIDE Onset: 04/10/2020 Chronic kidney disease Pleskach, Criselda, NURSING HOME AIDE Onset: Type 2 diabetes mellitus in obese Pleskgian, Criselda, NURSING HOME AIDE Onset : 04/10/2020 Social History Type Date Description Comments Sex Unknown Tobacco Use Start: Unknown End: Unknown Current Cigarette Sm oker Packs Daily 1 Tobacco Use Start: Unknown Never Used Smokeless Tobacco ETOH Use Occasionally consumes alcohol Tobacco Use Start: 02/17/61 End: 08/15/13 Patient is a forme r smoker 1 ppd Recreational Drug Use Denies Drug Use Smoking Status Reviewed: 10/11/20 Patient is a former smoker 1 ppd Exercise Type/Frequency Exercises regularly Sun Exposure Does not use sunscreen Seat Belt/Car Seat Always uses seat belt Smoke Alarms Yes Smoke Alarms Carbon Monoxide Detector: Yes Allergies, Adverse Reactions, Alerts Active Allergies Criticality Reaction | Severity Comments Date Codeine Unable to assess criticality 06/27/2003 Demerol Unable to assess criticality 06/27/2003 Septra Unable to assess criticality rash 11/24/2003 Doxycycline Unable to assess criticality vomiting 09/10/2018 Medications Active Medications SIG Qnty Indications Ordering Provide r Date Levofloxacin 500mg Tablets one tab daily for seven days 7tabs J44.9 Criselda Herrera FNP 10/11/2020 Walker with seat and hand brakes, for mobility. I50.42 Nuzhat Vega M.D. 08/25/2020 I70.212 N18.9 Fluticasone Propionate 50mcg/Act Suspension one spray each side of nose daily 48gm J30.9 Criselda Cabrera FNP 07/31/2020 Lumigan 0.01% Solution one gtt. each eye at at bedtime 22.5ml Criselda Herrera FNP 07/31/2020 Motorized Chair Use as directed for mobility 1units M51.16 Pl Criselda connor FNP 07/19/2020 R26.2 M25.552 Pepto-Bismol 262mg/15ML Suspension 30 ml po 1-2 times per day prn 354ml Criselda Herrera FNP Commode Misc for bedside use 1units I70.212 Criselda Herrera FNP 03/29/2020 J44.9 Semi-Electric Adjustable Bed keep hob and feet elevated for sleep 1 units I50.42 Criselda Herrera FNP 03/27/2020 J44.9 I70.212 Xarelto 15mg Tablets 1 by mouth every day * dose decreased by Dr. Gallegos due to low GFR 90tabs Criselda Herrera FNP 03/17/2020 Magnesium Oxide 400mg Tablets 1 by mouth every day (Dr. Gallegos) Unknown 03/17/2020 Torsemide 20mg Tablets take 1-2 tablet twice a day 120tabs Nuzhat Vega M.D. 020 Metolazone 2.5mg Tablets 1 by mouth 1/2 hour before taking torsemide every day 90tabs Criselda Herrera FNP 12/08/2019 Tylenol PM Extra Strength 500-25mg Tablets take 1 tablets before bed as scheduled 180tabs Pl Criselda connor FNP 11/27/2019 Medical Compression Socks/20-30MMHG/Extr a Large/Long Misc please measure and dispense for lower extremity edema 2units R60.0 Criselda Herrera FNP 10/20/2019 Bacitracin (External) 500Unit/GM O intment apply to affected areas bid 85.2gm Criselda Herrera FNP 09/20/2019 Acetaminophen 325mg Tablets 2 by mouth every 6 hours as needed for leg pain. Unknown 08/07/2019 Potassium Chloride Keren ER 20Meq Tablets ER 1 by mouth twice a day 180tabs Criselda Herrera F SHOWER ATTENDANT 08/07/2019 Bupropion Hydrochloride ER (XL) 150mg Tablets ER 24HR take one tablet by mouth once a day 90tabs F32.9 Criselda Herrera FNP 07/06/2019 Alcohol Prep 70% Pads use twice daily as directed before testing bs 1Box Criselda Herrera FNP 12/03/2018 Ipratropium [place]/Albuterol Sulfate 0.5-2.5(3)mg/3ML Solution use 1 vial via nebulizer 4 times daily a s needed for coughing and wheezing 90ml Criselda Herrera FNP 10/14 Neosporin Original 3.5-400-5000 Oi ntment apply to rash twice a day as needed 28.300gm R21 Emerson Herrera FNP 12/09/2017 Freestyle turntable.fme Blood Glucose Monitoring System Device use for monitoring blood glucose twice a day, dx e11.9, prognosis good, duration 99 months 1units Criselda Herrera, [facility] Freestyle Lite Test Strips use to check blood glucose 2 times a day, e11.9 200units Vivian Herrera, [facility] 04/07/2017 Freestyle Lite Lancets Misc use to check fasting blood glusose twice daily, dx: e11.9 200units Merlin gomez Criselda, [facility] 04/07/2017 Citalopram Hydrobromide 40mg Table ts 1 tab by mouth every day 90tabs F32.9 Carmelagian Criselda, [facility] 03/13/19 18 Proair HFA 108(90Base) mcg/Act Aer osol 2 puffs every 4 hours as needed for wheezing and coughing 25.5gm Criselda Herrera, [facility] 04/12/2014 Diltiazem HCL 60mg Tablets 1 tab by mouth once a at bedtime 90tabs Criselda Herrera, [facility] 0 Advair Diskus 500-50mcg/Dose Aeros ol inhale one puff by mouth every day 3units Vivian Herrera, [facility] Spironolactone 25mg Tablets take one tablet by mouth every afternoon * Diuretics to be staggered per Dr. Gallegos Unknown Tramadol HCL 50mg Tablets take 1 tablet by mouth every 6 hours as needed for pain 120tabs Nuzhat Vega M.D. History Medications Motorized Scooter Use as directed for mobility M51.16 Sharon Criselda, [facility] 07/13/2020 - 07/19/2020 R26.2 M25.552 Immunizations CPT Code Status Date Vaccine Lot # [id number] Given 05/24/2020 Moderna Sars-(Co vid-19) vaccine, mRNA, LNP-S, PF, 100 mcg/ 0.5 mL [id number] Given 04/19/2020 Moderna Sars-(Co vid-19) vaccine, mRNA, LNP-S, PF, 100 mcg/ 0.5 mL [id number] Given 03/25/2018 Pneumococcal Vaccine [id number] 45920 Given 12/09/2017 Influenza Virus Vaccine, Quadrivalent,age 3 and up,multidose vial [id number] 60181 Given 03/23/2017 Pneumococcal Vaccine [id number] Given 12/04/2016 Influenza Vaccine (Fluzone)( medicare) [id number] Given 11/14/2015 Influenza Vaccine (Fluzone)( medicare) [id number] 20640 Given 10/12/2015 Prevnar 13 For Adults 80192 Given 11/17/2013 Influenza Vaccination 57958 Given 11/18/2007 Influenza Vaccination [id number] 44531 Given 12/12/2006 Influenza Vaccination [id number] Vital Signs Date Vital Result Comment 10/11/2020 2:11pm BP Systolic 87 mmHg BP Diastolic 42 mmHg Heart Rate 75 /min Body Temperature 95.7 F Respiratory Rate 25 /min Height 61.5 inches 5'1.50" O2 % BldC Oximetry 95 % Peak Expiratory Flow Rate 292 Estimated Peak Flow Rate [place] Body Weight 105 lb 07/31/2020 11:15am BP Systolic 107 mmHg BP Diastolic 57 mmHg Heart Rate 73 /min Body Temperature 97.3 F Respiratory Rate 20 /min Height 61.5 inches 5'1.50" Weight 235.12 lb O2 % BldC Oximetry 96 % Peak Expiratory Flow Rate 292 Estimated Peak Flow Rate [place] Body Weight 105 lb BMI (Body Mass Index) 43.7 kg/m2 Results Test Acquired Date Facility Test Result H/L Range Note Influenza A/B RSV Covid Amp 10/18/2020 [place] [address] [phone] Influenza A Amplification NEGATIVE Normal Negati ve 1 Influenza B Amplification NEGATIVE Normal Negative 2 RSV Amplification NEGATIVE Normal Negative 3 Sars Covid-19 Amplification NEGATIVE Normal Negative 4 Blood Culture 10/18/[address] [place] [address] [phone] Blood Culture No growth after <SEE NOTE> 5 CBC With Differential 10/18/2020 [place] [address] [phone] White Blood Count 5.3 10 Normal 4.0-10.0 Red Blood Count 3.31 10 Low 4.00-5.40 Hemoglobin 9.7 g/dL Low 12.0-15.5 Hematocrit 30.9 % Low 36.0-47.0 Mean Corpuscular Volume 93.4 fl Normal 80.0-96.0 Mean Corpuscular Hemoglobin 29.3 pg Normal 27.0-33.0 Mean Corpuscular HGB Conc 31.4 g/dL Low 32.0-36.5 Red Cell Distribution Width 14.6 % High 11.5-14.5 Platelet Count, Automated 110 10 Low 150-450 Neutrophils % 74.9 % High 36.0-66.0 Lymph % 12.6 % Low 24.0-44.0 Arthur % 7.5 % Normal 2.0-8.0 Eos % 3.8 % High 0.0-3.0 Baso % 0.4 % Normal 0.0-1.0 Immature Granulocyte % 0.8 % Normal 0-3.0 Nucleated Red Blood Cell % 0.0 % Normal 0-0 Neutrophils # 4.0 10 Normal 1.5-8.5 Lymph # 0.7 10 Low 1.5-5.0 Arthur # 0.4 10 Normal 0.0-0.8 Eos # 0.2 10 Normal 0.0-0.5 Baso # 0.0 10 Normal 0.0-0.2 Cardiac Marker Panel 10/18/2020 [place] [address] [phone] CPK Creatine Phosphokinase 15 U/L Low 26-19 2 CK-MB Value Mass < 1.0 NG/ML Normal <3.6 MB/CK Relative Index 6.67 High < Or =4 6 Troponin I < 0.02 NG/ML Normal < 0.10 7 Basic Metabolic Profile 10/18/2020 Patient Service [place], [place] [id number] [phone] Glucose, Fasting 169 mg/dL High 70-100 Blood Urea Nitrogen 20 mg/dL High 7-18 Creatinine For GFR 1.34 mg/dL High 0.55-1.30 Glomerular Filtration Rate 40.7 Normal >39 8 Sodium Level 140 mEq/L Normal 136-145 Potassium Serum 4.3 mEq/L Normal 3.5-5.1 Chloride Level 106 mEq/L Normal 98-107 Carbon Dioxide Level 30 mEq/L Normal 21-32 Anion Gap 4 mEq/L Low 8-16 Calcium Level 8.7 mg/dL Low 8.8-10.2 Laboratory test finding 10/18/2020 [place] [address] [phone] NT-Pro BNP 427 pg/mL Normal <450 C Reactive Protein Quantitativ 1.22 mg/dL High 0.00-0.30 Erythrocyte Sedimentation Rate 27 mm/hr Normal 0-30 Blood Culture 10/18/2020 [place] [address] [phone] Blood Culture No growth after <SEE NOTE> 9 Comprehensive Metabolic Profil 10/11/2020 [facility] [phone] Glucose, Fasting 90 mg/dL Normal 70-100 Blood Urea Nitrogen 20 mg/dL High 7-18 Creatinine For GFR 1.42 mg/dL High 0.55-1.30 Glomerular Filtration Rate 38.1 Low >39 1 0 Sodium Level 139 mEq/L Normal 136-145 Potassium Serum 4.1 mEq/L Normal 3.5-5.1 Chloride Level 104 mEq/L Normal 98-107 Carbon Dioxide Level 30 mEq/L Normal 21-32 Anion Gap 5 mEq/L Low 8-16 Calcium Level 8.7 mg/dL Low 8.8-10.2 Ast/Sgot 5 U/L Low 7-37 Alt/SGPT 11 U/L Low 12-78 Alkaline Phosphatase 56 U/L Normal 45-117 Bilirubin,Total 1.0 mg/dL Normal 0.2-1.0 Total Protein 5.2 GM/DL Low 6.4-8.2 Albumin 2.8 GM/DL Low 3.2-5.2 Albumin/Globulin Ratio 1.2 Normal 1.2-2.2 Hemoglobin A1c 10/11/2020 [facility] [phone] Hemoglobin A1c 5.9 % Normal 11 Estimated Average Glucose 123 mg/dL High 60-110 Lipid Panel 10/11/2020 [facility] [phone] Triglycerides Level 75 mg/dL Normal <150 Cholesterol Level 98 mg/dL Normal <200 HDL Cholesterol 46 mg/dL Normal >40 LDL Cholesterol 37 mg/dL Normal <100 Non-HDL-C 52 mg/dL Normal Cholesterol Risk Ratio 2.130 Normal <5 Microalbumin Random 10/11/2020 [facility] [phone] Creatinine, Urine 52.4 mg/dL Normal Malb Urine Siemens 9.0 mg/L Normal Moose/Creat Ratio 17.1 MCG/MG Normal 0.0-30.0 12 Basic Metabolic Profile 08/03/2020 [facility] [phone] Glucose, Fasting 121 mg/dL High 70-100 Blood Urea Nitrogen 24 mg/dL High 7-18 Creatinine For GFR 1.55 mg/dL High 0.55-1.30 Glomerular Filtration Rate 34.4 Low >39 1 3 Sodium Level 136 mEq/L Normal 136-145 Potassium Serum 4.6 mEq/L Normal 3.5-5.1 Chloride Level 97 mEq/L Low 98-107 Carbon Dioxide Level 33 mEq/L High 21-32 Anion Gap 6 mEq/L Low 8-16 Calcium Level 9.8 mg/dL Normal 8.8-10.2 Basic Metabolic Profile 07/31/2020 [facility] [phone] Glucose, Fasting 173 mg/dL High 70-100 Blood Urea Nitrogen 21 mg/dL High 7-18 Creatinine For GFR 1.33 mg/dL High 0.55-1.30 Glomerular Filtration Rate 41.1 Normal >39 1 4 Sodium Level 138 mEq/L Normal 136-145 Potassium Serum 2.9 mEq/L Critical low 3.5-5.1 Chloride Level 99 mEq/L Normal 98-107 Carbon Dioxide Level 32 mEq/L Normal 21-32 Anion Gap 7 mEq/L Low 8-16 Calcium Level 9.7 mg/dL Normal 8.8-10.2 Laboratory test finding 07/26/2020 [place] [address] [phone] iSTAT Troponin 0.00 NG/ML Normal 0.00-0.08 Influenza A/B RSV Covid Amp 06/06/2020 [place] [address] [phone] Influenza A Amplification NEGATIVE Normal Negati ve 15 Influenza B Amplification NEGATIVE Normal Negative 16 RSV Amplification NEGATIVE Normal Negative 17 Sars Covid-19 Amplification NEGATIVE Normal Negative 18 CBC With Differential 06/06/2020 [place] [address] [phone] White Blood Count 8.5 10 Normal 4.0-10.0 Red Blood Count 3.62 10 Low 4.00-5.40 Hemoglobin 10.4 g/dL Low 12.0-15.5 Hematocrit 33.0 % Low 36.0-47.0 Mean Corpuscular Volume 91.2 fl Normal 80.0-96.0 Mean Corpuscular Hemoglobin 28.7 pg Normal 27.0-33.0 Mean Corpuscular HGB Conc 31.5 g/dL Low 32.0-36.5 Red Cell Distribution Width 15.2 % High 11.5-14.5 Platelet Count, Automated 165 10 Normal 150-450 Neutrophils % 69.4 % High 36.0-66.0 Lymph % 20.2 % Low 24.0-44.0 Arthur % 6.9 % Normal 2.0-8.0 Eos % 2.6 % Normal 0.0-3.0 Baso % 0.5 % Normal 0.0-1.0 Immature Granulocyte % 0.4 % Normal 0-3.0 Nucleated Red Blood Cell % 0.0 % Normal 0-0 Neutrophils # 5.9 10 Normal 1.5-8.5 Lymph # 1.7 10 Normal 1.5-5.0 Arthur # 0.6 10 Normal 0.0-0.8 Eos # 0.2 10 Normal 0.0-0.5 Baso # 0.0 10 Normal 0.0-0.2 Laboratory test finding 06/06/2020 [place] [address] [phone] Lactic Acid Sepsis Protocol 1.9 mmol/L Normal 0.4- 2.0 19 Cardiac Marker Panel 06/06/[address] [place] [address] [phone] CPK Creatine Phosphokinase 17 U/L Low 26-19 2 CK-MB Value Mass < 1.0 NG/ML Normal <3.6 MB/CK Relative Index 5.88 High < Or =4 20 Troponin I < 0.02 NG/ML Normal < 0.10 21 Liver Profile 06/06/2020 [place] [address] [phone] Ast/Sgot 4 U/L Low 7-37 Alt/SGPT 9 U/L Low 12-78 Alkaline Phosphatase 57 U/L Normal 45-117 Bilirubin,Total 0.7 mg/dL Normal 0.2-1.0 Bilirubin,Direct 0.2 mg/dL Normal 0.0-0.2 Total Protein 5.5 GM/DL Low 6.4-8.2 Albumin 3.3 GM/DL Normal 3.2-5.2 Albumin/Globulin Ratio 1.5 Normal 1.2-2.2 Basic Metabolic Profile 06/06/2020 [facility] [place] [id number] [phone] Glucose, Fasting 124 mg/dL High 70-100 Blood Urea Nitrogen 22 mg/dL High 7-18 Creatinine For GFR 1.24 mg/dL Normal 0.55-1.30 Glomerular Filtration Rate 44.5 Normal >39 2 2 Sodium Level 140 mEq/L Normal 136-145 Potassium Serum 3.6 mEq/L Normal 3.5-5.1 Chloride Level 99 mEq/L Normal 98-107 Carbon Dioxide Level 35 mEq/L High 21-32 Anion Gap 6 mEq/L Low 8-16 Calcium Level 10.2 mg/dL Normal 8.8-10.2 Laboratory test finding 06/06/2020 [facility] [place] [id number] [phone] NT-Pro BNP 260 pg/mL Normal <450 Coronavirus 2019 ([facility] [place]) 05/18/2020 [place] [address] [phone] Coronavirus 2018 ([facility] [place]) <SEE NOTE> 23 1 Negative results do not prec lude influenza or RSV virus infection and should not be used as the sole basis for treatment or other patient management decisions. 2 Negative results do not prec lude influenza or RSV virus infection and should not be used as the sole basis for treatment or other patient management decisions. 3 Negative results do not prec lude influenza or RSV virus infection and should not be used as the sole basis for treatment or other patient management decisions. 4 A false negative result may occur if a specimen is improperly collected, transported or handled. False negative results may also occur if inadequate numbers of organisms are present in the specimen. As with any molecular test, mutations within the target regions of [employer] SARS-CoV-2 could affect primer and/or probe binding resulting in failure to detect the presence of virus. This test cannot rule out diseases caused by other bacterial or viral pathogens. DISCLAIMER: Testing was performed using the [employer] SARS-CoV-2 test. This test was developed and its performance characteristics determined by [employer]. This test has not been FDA cleared [...] the authorization is terminated or revoked sooner. 5 No growth after 72 hours . A ll specimens observed for 5 days. Results final at that time. No growth after 48 hours . All specimens observed for 5 days. Results final at that time. No growth after 24 hours . All specimens observed for 5 days. Results final at that time. NO GROWTH AFTER 5 DAYS 6 DIAGNOSIS CRITERIA MMB ng/ml Relative Index (RI) NON-AMI < or = 5 N/A GOYAL ZONE > 5 < or = 4 AMI > 5 > 4 7 Troponin I Reference Interva l for [employer] LOCI: 99th Percentile= 0.00-0.045 ng/ml Risk Stratification: [...] Little GFR Left ESRD GFR <15 on WORKERS COMPENSATION CLAIMS ADJUSTER 9 No growth after 72 hours . A ll specimens observed for 5 days. Results final at that time. No growth after 48 hours . All specimens observed for 5 days. Results final at that time. No growth after 24 hours . All specimens observed for 5 days. Results final at that time. NO GROWTH AFTER 5 DAYS 10 Units are mL/min/1.73 m2 Chronic Kidney Disease Staging per NKF: Stage I & II GFR >=60 Normal to Mildly Decreased Stage III GFR 30-59 Moderately Decreased Stage IV GFR 15-29 Severely Decreased Stage V GFR <15 Very Little GFR Left ESRD GFR <15 on WORKERS COMPENSATION CLAIMS ADJUSTER 11 REFERENCE RANGES: <=5.6% NORMAL 5.7-6.4% SUGGESTS IMPAIRED GLUCOSE META BOLISM/PREDIABETIC >= 6.5% ABNORMAL 12 THE [place] [employer] ATION STATES THAT MICROALBUMINURIA IS PRESENT IF THE MICROALBUMIN/CREATININE RATIO EXCEEDS 30 MCG/MG. THE THRESHOLD FOR CLINICAL ALBUMINURIA IS REACHED AT 300 MCG/MG. THE CLASSIFICATION OF A PATIENT SHOULD BE BASED UPON AT LEAST 2 OF 3 ABNORMAL RESULTS ON SPECIMENS COLLECTED WITHIN A 3 TO 6 MONTH TIME FRAME. 13 Units are mL/min/1.73 m2 Chronic Kidney Disease Staging per NKF: Stage I & II GFR >=60 Normal to Mildly Decreased Stage III GFR 30-59 Moderately Decreased Stage IV GFR 15-29 Severely Decreased Stage V GFR <15 Very Little GFR Left ESRD GFR <15 on WORKERS COMPENSATION CLAIMS ADJUSTER 14 Units are mL/min/1.73 m2 Chronic Kidney Disease Staging per NKF: Stage I & II GFR >=60 Normal to Mildly Decreased Stage III GFR 30-59 Moderately Decreased Stage IV GFR 15-29 Severely Decreased Stage V GFR <15 Very Little GFR Left ESRD GFR <15 on WORKERS COMPENSATION CLAIMS ADJUSTER 15 Negative results do not prec lude influenza or RSV virus infection and should not be used as the sole basis for treatment or other patient management decisions. 16 Negative results do not prec lude influenza or RSV virus infection and should not be used as the sole basis for treatment or other patient management decisions. 17 Negative results do not prec lude influenza or RSV virus infection and should not be used as the sole basis for treatment or other patient management decisions. 18 A false negative result may occur if [...] pathogens. DISCLAIMER: Testing was performed using the [employer] SARS-CoV-2 test. This test was developed and its performance characteristics determined by [employer]. This test has not been FDA cleared [...] the authorization is terminated or revoked sooner. 19 Y/N query for Sepsis Lactate Rule: Y 20 DIAGNOSIS CRITERIA MMB ng/ml Relative Index (RI) NON-AMI < or = 5 N/A GOYAL ZONE > 5 < or = 4 AMI > 5 > 4 21 Troponin I Reference Interva l for [employer] LOCI: 99th Percentile= 0.00-0.045 ng/ml Risk Stratification: <= 0.10 ng/ml Decreased Risk for Adverse Clinical Events. 0.10-1.50 ng/ml Increased Risk for Adv erse Clinical Events. Evaluation of additional criterion and/or repeat testing in 2-6 hours is suggested to rule out myocardial damage. >= 1.50 ng/ml Indicative of Myocardial Injury. 22 Units are mL/min/1.73 m2 Chronic Kidney Disease Staging per NKF: Stage I & II GFR >=60 Normal to Mildly Decreased Stage III GFR 30-59 Moderately Decreased Stage IV GFR 15-29 Severely Decreased Stage V GFR <15 Very Little GFR Left ESRD GFR <15 on WORKERS COMPENSATION CLAIMS ADJUSTER 23 Test: COVID-19 Nasal/Naspharynx Result: NOT DETECTED Reference Units: Not detected Note: Please consider re-collection of a new specimen, if clinically indicated. Note: The COVID-19 assay is under Emergency Use Authorization(EUA) by the U.S. Food and Drug Administration. [facility] are designated as high complexity laboratories by the Clinical Laboratory Improvement Amendments of 1988(CLIA) and is qualified to perform this test. ASSAY INFORMATION: Real Time RT-PCR Procedures Date Code Description Status 10/11/2020 91167 Office/Outpatient Established Mo d MDM 30-39 Min Completed 10/03/2020 94484 Chronic Care MGMT 20 Mins Clinical Staff Time Per Calendar Month Completed 08/30/2020 48368 Chronic Care MGMT 20 Mins Clinical Staff Time Per Calendar Month Completed 07/31/2020 83800 Office/Outpatient Established Mo d MDM 30-39 Min Completed 07/27/2020 94992 Chronic Care MGMT 20 Mins Clinical Staff Time Per Calendar Month Completed 07/13/2020 02254 Chronic Care MGMT 20 Mins Clinical Staff Time Per Calendar Month Completed 07/13/2020 49132 Chronic Care Management Services Ea Addl 20 Min Completed 07/12/2020 [id number] Diabetic Foot Exam Completed 07/12/2020 30696 Office/Outpatient Established Mo d MDM 30-39 Min Completed 06/15/2020 36203 Chronic Care MGMT 20 Mins Clinical Staff Time Per Calendar Month Completed 06/15/2020 49526 Chronic Care Management Services Ea Addl 20 Min Completed 05/04/2020 26779 Chronic Care MGMT 20 Mins Clinical Staff Time Per Calendar Month Completed 05/04/2020 46349 Chronic Care Management Services Ea Addl 20 Min Completed 01/26/2020 [id number] Mammogram Completed 05/09/2014 [id number] Mammogram Completed 04/27/2014 [id number] Mammogram Completed 12/10/2010 [id number] Mammogram Completed Medical Devices Description No Information Available Encounters Type Date Location Provider Dx Diagnosis Office Visit 10/11/2020 2:00p Main Office Criselda Herrera FNP 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 I70.212 [place] trm w intrmt damaris, left leg N18.9 Chronic kidney disease, unsp ecified E11.69 Type 2 diabetes mellitus wit h other specified complication J44.9 Chronic obstructive pulmonar y disease, unspecified R91.1 Solitary pulmonary nodule Office Visit 07/31/2020 11:00a Main Office Pleskach, Criselda, NURSING HOME AIDE 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 I70.212 [place] w intrmt damaris, left leg N18.9 Chronic kidney disease, unsp ecified Office Visit 07/12/2020 2:00p Main Office Pleskach, Criselda, NURSING HOME AIDE E11.6 9 Type 2 diabetes mellitus with other specified complication 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 I70.212 [place] [facility] [place] [facility] w intrmt damaris, left leg J44.9 Chronic obstructive pulmonar y disease, unspecified N18.9 Chronic kidney disease, unsp ecified 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, lumbar region R26.2 Difficulty in walking, not e lsewhere classified Z13.89 Encounter for screening for other disorder Assessments Date Code Description Provider 10/11/2020 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 Pleskach, Criselda, NURSING HOME AIDE 10/11/2020 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, left leg Pleskach, Criselda, NURSING HOME AIDE 10/11/2020 N18.9 Chronic kidney disease, unspecif ied Pleskach, Criselda, NURSING HOME AIDE 10/11/2020 E11.69 Type 2 diabetes mellitus with ot her specified complication Pleskach, Criselda, NURSING HOME AIDE 10/11/2020 J44.9 Chronic obstructive pulmonary di sease, unspecified Pleskach, Criselda, NURSING HOME AIDE 10/11/2020 R91.1 Solitary pulmonary nodule Pleska ch, Criselda, NURSING HOME AIDE 10/03/2020 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 Pleskach, Criselda, NURSING HOME AIDE 10/03/2020 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, left leg Pleskach, Criselda, NURSING HOME AIDE 10/03/2020 N18.9 Chronic kidney disease, unspecif ied Pleskach, Criselda, NURSING HOME AIDE 10/03/2020 E11.69 Type 2 diabetes mellitus with ot her specified complication Pleskach, Criselda, NURSING HOME AIDE 10/03/2020 J44.9 Chronic obstructive pulmonary di sease, unspecified Pleskach, Criselda, NURSING HOME AIDE 10/03/2020 R91.1 Solitary pulmonary nodule Pleska ch, Criselda, NURSING HOME AIDE 08/30/2020 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 Pleskach, Criselda, NURSING HOME AIDE 07/31/2020 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, left leg Pleskach, Criselda, NURSING HOME AIDE 07/31/2020 N18.9 Chronic kidney disease, unspecif ied Pleskach, Criselda, NURSING HOME AIDE 07/27/2020 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69 Type 2 diabetes mellitus with ot her specified complication Pleskach, Criselda, NURSING HOME AIDE 07/13/2020 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 Pleskach, Criselda, NURSING HOME AIDE 07/13/2020 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, left leg Pleskach, Criselda, NURSING HOME AIDE 07/13/2020 J44.9 Chronic obstructive pulmonary di sease, unspecified Pleskach, Criselda, NURSING HOME AIDE 07/13/2020 N18.9 Chronic kidney disease, unspecif ied Pleskach, Criselda, NURSING HOME AIDE 07/12/2020 E11.69 Type 2 diabetes mellitus with ot her specified complication Pleskach, Criselda, NURSING HOME AIDE 07/12/2020 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 Pleskach, Criselda, NURSING HOME AIDE 07/12/2020 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, left leg Pleskach, Criselda, NURSING HOME AIDE 07/12/2020 J44.9 Chronic obstructive pulmonary di sease, unspecified Pleskach, Criselda, NURSING HOME AIDE 07/12/2020 N18.9 Chronic kidney disease, unspecif ied Pleskach, Criselda, NURSING HOME AIDE 07/12/2020 M51.16 Intervertebral disc disorders with radiculopathy, lumbar region Pleskach, Criselda, NURSING HOME AIDE 07/12/2020 R26.2 Difficulty in walking, not elsew here classified Plepatricia Criselda, NURSING HOME AIDE 07/12/2020 Z13.89 Encounter for screening for othe r disorder Pleskach, Criselda, NURSING HOME AIDE 06/15/2020 R91.1 Solitary pulmonary nodule Plemarioa hansa Criselda, NURSING HOME AIDE 06/15/2020 E11.69 Type 2 diabetes mellitus with ot her specified complication Pleskach, Criselda, NURSING HOME AIDE 06/15/2020 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 Pleskach, Criselda, NURSING HOME AIDE 06/15/2020 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, left leg Pleskach, Criselda, NURSING HOME AIDE 06/15/2020 E87.6 Hypokalemia Pleskach, Criselda, NURSING HOME AIDE 06/15/2020 J44.9 Chronic obstructive pulmonary di sease, unspecified Pleskach, Criselda, NURSING HOME AIDE 06/15/2020 N18.9 Chronic kidney disease, unspecif ied Pleskach, Criselda, NURSING HOME AIDE 05/04/2020 R91.1 Solitary pulmonary nodule Criselda Jean ch, NURSING HOME AIDE 05/04/2020 E11.69 Type 2 diabetes mellitus with ot her specified complication Pleskgian Criselda, NURSING HOME AIDE 05/04/2020 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 Plepatricia Criselda, NURSING HOME AIDE 05/04/2020 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, left leg Criselda Herrera, NURSING HOME AIDE 05/04/2020 E87.6 Hypokalemia Pleparticia Criselda, NURSING HOME AIDE 05/04/2020 J44.9 Chronic obstructive pulmonary di sease, unspecified Pleskach, Criselda, NURSING HOME AIDE 05/04/2020 N18.9 Chronic kidney disease, unspecif ied Criselda Herrera, NURSING HOME AIDE Plan of Treatment 10/11/2020 - Criselda Herrera, NURSING HOME AIDE* I50.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* Comments:* stable, continue medication as prescribed * Follow up:* January for annual * I70.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 of [place] arteries of extremities with intermittent claudication, left leg* Comments:* following with palliative care for pain management * N18.9 Chronic kidney disease, unspecified* Comments:* following with nephrology * E11.69 Type 2 diabetes mellitus with other specified complication* Comments:* check A1C * J44.9 Chronic obstructive pulmonary disease, unspecified* New Medication:* Levofloxacin 500 mg - one tab daily for seven days * Comments:* with exacerbation, start levaquin daily. Patient instructed to go to ER if sx worsen * R91.1 Solitary pulmonary nodule Functional Status Functional Condition Comment Date Status Bifocal glasses Active Independent with all ADL's Activ e Complete lower and upper and lower dentures Active Independent with all IADL's Acti ve Mental Status Mental Condition Comment Date Status None Active Referrals Refer to Reason for Referral Status Appt Date [facility]/Rel[facility] referring jermaine genao for chronic disease care. thank you. Closed 09/20/[address] [place], [place] [id number] [phone]
--- OUTSIDE RECORDS SUMMARY | 2021-01-21 18:08 | CCD | Continuity of Care Document ---
Author Author Sana VEGA M.D. Organization Unknown Address [address] [place] [address] Phone [phone] Care Team Providers Care Vascular Sonographer Name Role Phone Dhaval Manuel MD AUTM [phone] Nuzhat Vega MD AUTM [phone] Roberto Wallace MD AUTM [phone] [facility] General Surgery Practice - Surgery AUTM [phone] Freddy Gallegos MD AUTM [phone] [facility] for [facility] - Medical Oncology AUTM [phone] [facility] Orthopedics - Sports Medicine AUTM [phone] [facility] for Symptom Treatment/Relief AUTM [phone] Problems Active Problems Provider Date Solitary nodule of lung Plepatricia Criselda, TRACK LAMINATING MACHINE TENDER Onset: 04/10/19 21 Chronic combined systolic and diastolic heart failure Pleska hansa Criselda, TRACK LAMINATING MACHINE TENDER Onset: 04/10/2020 Hypokalemia Plepatricia, Criselda, TRACK LAMINATING MACHINE TENDER Onset: 04/10/2020 Atrial fibrillation Pleskgian, Criselda, TRACK LAMINATING MACHINE TENDER Onset: 04/10/2020 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 Pleskach, Criselda, TRACK LAMINATING MACHINE TENDER Onset: 04/10/2020 Chronic obstructive lung disease Pleskach, Criselda, TRACK LAMINATING MACHINE TENDER Onset: 04/10/2020 Chronic kidney disease Pleskach, Criselda, TRACK LAMINATING MACHINE TENDER Onset: Type 2 diabetes mellitus in obese Pleskgian, Criselda, TRACK LAMINATING MACHINE TENDER Onset : 04/10/2020 Social History Type Date [...] twice a day 180tabs 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 08/07/2019 Bupropion Hydrochloride ER (XL) 150mg Tablets ER 24HR take one tablet by mouth once a day 90tabs F32.9 Criselda Herrera FNP 07/06/2019 Alcohol Prep 70% Pads use twice daily as directed before testing bs 1Box Criselda Herrera FNP 12/03/2018 Ipratropium [place]/Albuterol Sulfate 0.5-2.5(3)mg/3ML Solution use 1 vial via nebulizer 4 times daily a s needed for coughing and wheezing 90ml Criselda Herrera FNP 10/14 Neosporin Original 3.5-400-5000 Oi ntment apply to rash twice a day as needed 28.300gm R21 Emerson Herrera FNP 12/09/2017 Freestyle [place] Blood Glucose Monitoring System Device use for monitoring blood glucose twice a day, dx e11.9, prognosis good, duration 99 months 1units Criselda Herrera, [facility] Freestyle Lite Test Strips use to check blood glucose 2 times a day, e11.9 200units Vivian Herrera, [facility] 04/07/2017 Freestyle Lite Lancets Misc use to check fasting blood glusose twice daily, dx: e11.9 200units Merlin gomez Criselda, [facility] 04/07/2017 Citalopram Hydrobromide 40mg Table ts 1 tab by mouth every day 90tabs F32.9 Carmelagian Criselda, [facility] 03/13/19 18 Proair HFA 108(90Base) mcg/Act Aer osol 2 puffs every 4 hours as needed for wheezing and coughing 25.5gm Criselda Herrera, [facility] 04/12/2014 Diltiazem HCL 60mg Tablets 1 tab by mouth once a at bedtime 90tabs Criselda Herrera, [facility] 0 Advair Diskus 500-50mcg/Dose Aeros ol inhale one puff by mouth every day 3units Vivian Herrera, [facility] Spironolactone 25mg Tablets take one tablet by mouth every afternoon * Diuretics to be staggered per Dr. Gallegos Unknown Tramadol HCL 50mg Tablets take 1 tablet by mouth every 6 hours as needed for pain 120tabs Nuzhat Vega M.D. History Medications Motorized Scooter Use as directed for mobility M51.16 Sharon Criselda, [facility] 07/13/2020 - 07/19/2020 R26.2 M25.552 Immunizations CPT Code Status Date Vaccine Lot # [id number] Given 05/24/2020 Moderna Sars-(Co vid-19) vaccine, mRNA, LNP-S, PF, 100 mcg/ 0.5 mL 16628 Given 04/19/2020 Moderna Sars-(Co vid-19) vaccine, mRNA, LNP-S, PF, 100 mcg/ 0.5 mL 48041 Given 03/25/2018 Pneumococcal Vaccine [id number] 47865 Given 12/09/2017 Influenza Virus Vaccine, Quadrivalent,age 3 and up,multidose vial [id number] 42592 Given 03/23/2017 Pneumococcal Vaccine [id number] Given 12/04/2016 Influenza Vaccine (Fluzone)( medicare) [id number] Q2038 Given 11/14/2015 Influenza Vaccine (Fluzone)( medicare) [id number] 98459 Given 10/12/2015 Prevnar 13 For Adults 94359 Given 11/17/2013 Influenza Vaccination 63159 Given 11/18/2007 Influenza Vaccination [id number] 22354 Given 12/12/2006 Influenza Vaccination [id number] Vital Signs Date Vital Result Comment 10/11/2020 2:11pm BP Systolic 87 mmHg BP Diastolic 42 mmHg Heart Rate 75 /min Body Temperature 95.7 F Respiratory Rate 25 /min Height 61.5 inches 5'1.50" O2 % BldC Oximetry 95 % Peak Expiratory Flow Rate 292 Estimated Peak Flow Rate Palmer Body Weight 105 lb 07/31/2020 11:15am BP Systolic 107 mmHg BP Diastolic 57 mmHg Heart Rate 73 /min Body Temperature 97.3 F Respiratory Rate 20 /min Height 61.5 inches 5'1.50" Weight 235.12 lb O2 % BldC Oximetry 96 % Peak Expiratory Flow Rate 292 Estimated Peak Flow Rate Palmer Body Weight 105 lb BMI (Body Mass Index) 43.7 kg/m2 Results Test Acquired Date Facility Test Result H/L Range Note Influenza A/B RSV Covid Amp 10/18/2020 [place] [address] [phone] Influenza A Amplification NEGATIVE Normal Negati ve 1 Influenza B Amplification NEGATIVE Normal Negative 2 RSV Amplification NEGATIVE Normal Negative 3 Sars Covid-19 Amplification NEGATIVE Normal Negative 4 Blood Culture 10/18/[address] [place] [address] [phone] Blood Culture No growth after <SEE NOTE> 5 CBC With Differential 10/18/2020 [place] [address] [phone] White Blood Count 5.3 10 Normal 4.0-10.0 [...] 36.0-66.0 Lymph % 12.6 % Low 24.0-44.0 [place] % 7.5 % Normal 2.0-8.0 Eos % 3.8 % High 0.0-3.0 Baso % 0.4 % Normal 0.0-1.0 Immature Granulocyte % 0.8 % Normal 0-3.0 Nucleated Red Blood Cell % 0.0 % Normal 0-0 Neutrophils # 4.0 10 Normal 1.5-8.5 Lymph # 0.7 10 Low 1.5-5.0 [place] # 0.4 10 Normal 0.0-0.8 Eos # 0.2 10 Normal 0.0-0.5 Baso # 0.0 10 Normal 0.0-0.2 Cardiac Marker Panel 10/18/2020 [place] [address] [phone] CPK Creatine Phosphokinase 15 U/L Low 26-19 2 CK-MB Value Mass < 1.0 NG/ML Normal <3.6 MB/CK Relative Index 6.67 High < Or =4 6 Troponin I < 0.02 NG/ML Normal < 0.10 7 Basic Metabolic Profile 10/18/2020 Patient Service [place], [place] [id number] [phone] Glucose, Fasting 169 mg/dL High 70-100 Blood [...] Laboratory test finding 10/18/2020 [place] [address] [phone] NT-Pro BNP 427 pg/mL Normal <450 C Reactive Protein Quantitativ 1.22 mg/dL High 0.00-0.30 Erythrocyte Sedimentation Rate 27 mm/hr Normal 0-30 Blood Culture 10/18/2020 [place] [address] [phone] Blood Culture No growth after <SEE NOTE> 9 Comprehensive Metabolic Profil 10/11/2020 [facility] [phone] Glucose, Fasting 90 mg/dL Normal 70-100 Blood [...] Ratio 1.2 Normal 1.2-2.2 Hemoglobin A1c 10[facility]11/2020 [facility] [phone] Hemoglobin A1c 5.9 % Normal 11 Estimated Average Glucose 123 mg/dL High 60-110 Lipid Panel 10/11/2020 [facility] [phone] Triglycerides Level 75 mg/dL Normal <150 Cholesterol Level 98 mg/dL Normal <200 HDL Cholesterol 46 mg/dL Normal >40 LDL Cholesterol 37 mg/dL Normal <100 Non-HDL-C 52 mg/dL Normal Cholesterol Risk Ratio 2.130 Normal <5 Microalbumin Random 10/11/2020 [facility] [phone] Creatinine, Urine 52.4 mg/dL Normal Malb Urine Siemens 9.0 mg/L Normal [place]/Creat Ratio 17.1 MCG/MG Normal 0.0-30.0 12 Basic Metabolic Profile 08/03/2020 [facility] [phone] Glucose, Fasting 121 mg/dL High 70-100 Blood [...] mg/dL Normal 8.8-10.2 Basic Metabolic Profile 07/31/2020 [facility] [phone] Glucose, Fasting 173 mg/dL High 70-100 Blood [...] Laboratory test finding 07/26/2020 [place] [address] [phone] iSTAT Troponin 0.00 NG/ML Normal 0.00-0.08 Influenza A/B RSV Covid Amp 06/06/2020 [place] [address] [phone] Influenza A Amplification NEGATIVE Normal Negati ve 15 Influenza B Amplification NEGATIVE Normal Negative 16 RSV Amplification NEGATIVE Normal Negative 17 Sars Covid-19 Amplification NEGATIVE Normal Negative 18 CBC With Differential 06/06/2020 [place] [address] [phone] White Blood Count 8.5 10 Normal 4.0-10.0 [...] 36.0-66.0 Lymph % 20.2 % Low 24.0-44.0 [place] % 6.9 % Normal 2.0-8.0 Eos % 2.6 % Normal 0.0-3.0 Baso % 0.5 % Normal 0.0-1.0 Immature Granulocyte % 0.4 % Normal 0-3.0 Nucleated Red Blood Cell % 0.0 % Normal 0-0 Neutrophils # 5.9 10 Normal 1.5-8.5 Lymph # 1.7 10 Normal 1.5-5.0 [place] # 0.6 10 Normal 0.0-0.8 Eos # 0.2 10 Normal 0.0-0.5 Baso # 0.0 10 Normal 0.0-0.2 Laboratory test finding 06/06/2020 [place] [address] [phone] Lactic Acid Sepsis Protocol 1.9 mmol/L Normal 0.4- 2.0 19 Cardiac Marker Panel 06/06/[address] [place] [address] [phone] CPK Creatine Phosphokinase 17 U/L Low 26-19 2 CK-MB Value Mass < 1.0 NG/ML Normal <3.6 MB/CK Relative Index 5.88 High < Or =4 20 Troponin I < 0.02 NG/ML Normal < 0.10 21 Liver Profile 06/06/2020 [place] [address] [phone] Ast/Sgot 4 U/L Low 7-37 Alt/SGPT 9 U/L Low 12-78 Alkaline Phosphatase 57 U/L Normal 45-117 Bilirubin,Total 0.7 mg/dL Normal 0.2-1.0 Bilirubin,Direct 0.2 mg/dL Normal 0.0-0.2 Total Protein 5.5 GM/DL Low 6.4-8.2 Albumin 3.3 GM/DL Normal 3.2-5.2 Albumin/Globulin Ratio 1.5 Normal 1.2-2.2 Basic Metabolic Profile 06/06/2020 [facility] [place] [id number] [phone] Glucose, Fasting 124 mg/dL High 70-100 Blood [...] Laboratory test finding 06/06/2020 [facility] [place] 1472184 [phone] NT-Pro BNP 260 pg/mL Normal <450 Coronavirus 2019 ([facility]) 05/18/2020 [place] [address] [phone] Coronavirus 2018 ([facility]) <SEE NOTE> 23 1 Negative results do [...] mutations within the target regions of [employer] A/S SARS-CoV-2 could affect primer and/or probe binding resulting in failure to detect the presence of virus. This test cannot rule out diseases caused by other bacterial or viral pathogens. DISCLAIMER: Testing was performed using the [employer] SARS-CoV-2 test. This test was developed and its performance characteristics determined by [employer]. This test has not been FDA cleared [...] 7 Troponin I Reference Interva l for [employer] [place] LOCI: 99th Percentile= 0.00-0.045 ng/ml Risk Stratification: [...] Little GFR Left ESRD GFR <15 on CLIENT SERVICES SPECIALIST 9 No growth after 72 hours . [...] Little GFR Left ESRD GFR <15 on CLIENT SERVICES SPECIALIST 11 REFERENCE RANGES: <=5.6% NORMAL 5.7-6.4% SUGGESTS IMPAIRED GLUCOSE META BOLISM/PREDIABETIC >= 6.5% ABNORMAL 12 THE EMIRATI DIABETES ASSOCI ATION STATES THAT MICROALBUMINURIA IS [...] Little GFR Left ESRD GFR <15 on CLIENT SERVICES SPECIALIST 14 Units are mL/min/1.73 m2 Chronic Kidney Disease Staging per NKF: Stage I & II GFR >=60 Normal to Mildly Decreased Stage III GFR 30-59 Moderately Decreased Stage IV GFR 15-29 Severely Decreased Stage V GFR <15 Very Little GFR Left ESRD GFR <15 on CLIENT SERVICES SPECIALIST 15 Negative results do not prec lude [...] pathogens. DISCLAIMER: Testing was performed using the [employer] SARS-CoV-2 test. This test was developed and its performance characteristics determined by [employer]. This test has not been FDA cleared [...] 21 Troponin I Reference Interva l for [employer] LOCI: 99th Percentile= 0.00-0.045 ng/ml Risk Stratification: [...] Little GFR Left ESRD GFR <15 on CLIENT SERVICES SPECIALIST 23 Test: COVID-19 Nasal/Naspharynx Result: NOT DETECTED Reference Units: Not detected Note: Please consider re-collection of a new specimen, if clinically indicated. Note: The COVID-19 assay is under Emergency Use Authorization(EUA) by the U.S. Food and Drug Administration. [facility] and [facility] are designated as high complexity laboratories by the Clinical Laboratory Improvement Amendments of 1988(CLIA) and is qualified to perform this test. ASSAY INFORMATION: Real Time RT-PCR Procedures Date Code Description Status 10/11/2020 35126 Office/Outpatient Established Mo d MDM 30-39 Min Completed 10/03/2020 77116 Chronic Care MGMT 20 Mins Clinical Staff Time Per Calendar Month Completed 08/30/2020 00976 Chronic Care MGMT 20 Mins Clinical Staff Time Per Calendar Month Completed 07/31/2020 06803 Office/Outpatient Established Mo d MDM 30-39 Min Completed 07/27/2020 09049 Chronic Care MGMT 20 Mins Clinical Staff Time Per Calendar Month Completed 07/13/2020 15131 Chronic Care MGMT 20 Mins Clinical Staff Time Per Calendar Month Completed 07/13/2020 38416 Chronic Care Management Services Ea Addl 20 Min Completed 07/12/2020 674438103 Diabetic Foot Exam Completed 07/12/2020 70082 Office/Outpatient Established Mo d MDM 30-39 Min Completed 06/15/2020 40892 Chronic Care MGMT 20 Mins Clinical Staff Time Per Calendar Month Completed 06/15/2020 03021 Chronic Care Management Services Ea Addl 20 Min Completed 05/04/2020 09995 Chronic Care MGMT 20 Mins Clinical Staff Time Per Calendar Month Completed 05/04/2020 26985 Chronic Care Management Services Ea Addl 20 Min Completed 01/26/2020 [id number] Mammogram Completed 05/09/2014 00919420 Mammogram Completed 04/27/2014 26729141 Mammogram Completed 12/10/2010 [id number] Mammogram Completed Medical Devices Description No Information Available Encounters Type Date Location Provider Dx Diagnosis Office Visit 10/11/2020 2:00p Main Office Criselda Herrera FNP 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 I70.212 [place] arteries of ex trm w intrmt damaris, left leg N18.9 Chronic kidney disease, unsp ecified E11.69 Type 2 diabetes mellitus wit h other specified complication J44.9 Chronic obstructive pulmonar y disease, unspecified R91.1 Solitary pulmonary nodule Office Visit 07/31/2020 11:00a Main Office Pleskach, Criselda, TRACK LAMINATING MACHINE TENDER 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 I70.212 [place]scl [place] arteries of ex trm w intrmt damaris, left leg N18.9 Chronic kidney disease, unsp ecified Office Visit 07/12/2020 2:00p Main Office Pleskach, Criselda, TRACK LAMINATING MACHINE TENDER E11.6 9 Type 2 diabetes mellitus with other specified complication 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 I70.212 [place] arteries of ex trm w intrmt damaris, [...] and diastolic (congestive) heart failure Pleskach, Criselda, TRACK LAMINATING MACHINE TENDER 10/11/2020 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, left leg Pleskach, Criselda, TRACK LAMINATING MACHINE TENDER 10/11/2020 N18.9 Chronic kidney disease, unspecif ied Pleskach, Criselda, TRACK LAMINATING MACHINE TENDER 10/11/2020 E11.69 Type 2 diabetes mellitus with ot her specified complication Pleskach, Criselda, TRACK LAMINATING MACHINE TENDER 10/11/2020 J44.9 Chronic obstructive pulmonary di sease, unspecified Pleskach, Criselda, TRACK LAMINATING MACHINE TENDER 10/11/2020 R91.1 Solitary pulmonary nodule Pleska ch, Criselda, TRACK LAMINATING MACHINE TENDER 10/03/2020 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 Pleskach, Criselda, TRACK LAMINATING MACHINE TENDER 10/03/2020 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, left leg Pleskach, Criselda, TRACK LAMINATING MACHINE TENDER 10/03/2020 N18.9 Chronic kidney disease, unspecif ied Pleskach, Criselda, TRACK LAMINATING MACHINE TENDER 10/03/2020 E11.69 Type 2 diabetes mellitus with ot her specified complication Pleskach, Criselda, TRACK LAMINATING MACHINE TENDER 10/03/2020 J44.9 Chronic obstructive pulmonary di sease, unspecified Pleskach, Criselda, TRACK LAMINATING MACHINE TENDER 10/03/2020 R91.1 Solitary pulmonary nodule Pleska ch, Criselda, TRACK LAMINATING MACHINE TENDER 08/30/2020 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 Pleskach, Criselda, TRACK LAMINATING MACHINE TENDER 08/30/2020 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, left leg Pleskach, Criselda, TRACK LAMINATING MACHINE TENDER 08/30/2020 N18.9 Chronic kidney disease, unspecif ied Pleskach, Criselda, TRACK LAMINATING MACHINE TENDER 08/30/2020 E11.69 Type 2 diabetes mellitus with ot her specified complication Pleskach, Criselda, TRACK LAMINATING MACHINE TENDER 08/30/2020 J44.9 Chronic obstructive pulmonary di sease, unspecified Pleskach, Criselda, TRACK LAMINATING MACHINE TENDER 08/30/2020 R91.1 Solitary pulmonary nodule Pleska ch, Criselda, TRACK LAMINATING MACHINE TENDER 07/31/2020 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 Pleskach, Criselda, TRACK LAMINATING MACHINE TENDER 07/31/2020 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, left leg Pleskach, Criselda, TRACK LAMINATING MACHINE TENDER 07/31/2020 N18.9 Chronic kidney disease, unspecif ied Pleskach, Criselda, TRACK LAMINATING MACHINE TENDER 07/27/2020 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 Pleskach, Criselda, TRACK LAMINATING MACHINE TENDER 07/27/2020 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, left leg Pleskach, Criselda, TRACK LAMINATING MACHINE TENDER 07/27/2020 N18.9 Chronic kidney disease, unspecif ied Pleskach, Criselda, TRACK LAMINATING MACHINE TENDER 07/27/2020 E11.69 Type 2 diabetes mellitus with ot her specified complication Pleskach, Criselda, TRACK LAMINATING MACHINE TENDER 07/27/2020 J44.9 Chronic obstructive pulmonary di sease, unspecified Pleskach, Criselda, TRACK LAMINATING MACHINE TENDER 07/27/2020 R91.1 Solitary pulmonary nodule Pleska ch, Criselda, TRACK LAMINATING MACHINE TENDER 07/13/2020 E11.69 Type 2 diabetes mellitus with ot her specified complication Pleskach, Criselda, TRACK LAMINATING MACHINE TENDER 07/13/2020 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 Pleskach, Criselda, TRACK LAMINATING MACHINE TENDER 07/13/2020 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, left leg Pleskach, Criselda, TRACK LAMINATING MACHINE TENDER 07/13/2020 J44.9 Chronic obstructive pulmonary di sease, unspecified Pleskach, Criselda, TRACK LAMINATING MACHINE TENDER 07/13/2020 N18.9 Chronic kidney disease, unspecif ied Pleskach, Criselda, TRACK LAMINATING MACHINE TENDER 07/12/2020 E11.69 Type 2 diabetes mellitus with ot her specified complication Pleskach, Criselda, TRACK LAMINATING MACHINE TENDER 07/12/2020 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 Pleskach, Criselda, TRACK LAMINATING MACHINE TENDER 07/12/2020 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, left leg Pleskach, Criselda, TRACK LAMINATING MACHINE TENDER 07/12/2020 J44.9 Chronic obstructive pulmonary di sease, unspecified Pleskach, Criselda, TRACK LAMINATING MACHINE TENDER 07/12/2020 N18.9 Chronic kidney disease, unspecif ied Pleskach, Criselda, TRACK LAMINATING MACHINE TENDER 07/12/2020 M51.16 Intervertebral disc disorders with radiculopathy, lumbar region Pleskach, Criselda, TRACK LAMINATING MACHINE TENDER 07/12/2020 R26.2 Difficulty in walking, not elsew here classified Plepatricia Criselda, TRACK LAMINATING MACHINE TENDER 07/12/2020 Z13.89 Encounter for screening for othe r disorder Pleskach, Criselda, TRACK LAMINATING MACHINE TENDER 06/15/2020 R91.1 Solitary pulmonary nodule Plemarioa hansa Criselda, TRACK LAMINATING MACHINE TENDER 06/15/2020 E11.69 Type 2 diabetes mellitus with ot her specified complication Pleskach, Criselda, TRACK LAMINATING MACHINE TENDER 06/15/2020 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 Pleskach, Criselda, TRACK LAMINATING MACHINE TENDER 06/15/2020 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, left leg Pleskach, Criselda, TRACK LAMINATING MACHINE TENDER 06/15/2020 E87.6 Hypokalemia Pleskach, Criselda, TRACK LAMINATING MACHINE TENDER 06/15/2020 J44.9 Chronic obstructive pulmonary di sease, unspecified Pleskach, Rciselda, TRACK LAMINATING MACHINE TENDER 06/15/2020 N18.9 Chronic kidney disease, unspecif ied Pleskach, Criselda, TRACK LAMINATING MACHINE TENDER 05/04/2020 R91.1 Solitary pulmonary nodule Criselda Jean ch, TRACK LAMINATING MACHINE TENDER 05/04/2020 E11.69 Type 2 diabetes mellitus with ot her specified complication Pleskgian Criselda, TRACK LAMINATING MACHINE TENDER 05/04/2020 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 Plepatricia Criselda, TRACK LAMINATING MACHINE TENDER 05/04/2020 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, left leg Criselda Herrera, TRACK LAMINATING MACHINE TENDER 05/04/2020 E87.6 Hypokalemia Plepatricia Criselda, TRACK LAMINATING MACHINE TENDER 05/04/2020 J44.9 Chronic obstructive pulmonary di sease, unspecified Pleskach, Criselda, TRACK LAMINATING MACHINE TENDER 05/04/2020 N18.9 Chronic kidney disease, unspecif ied Criselda Herrera, TRACK LAMINATING MACHINE TENDER Plan of Treatment 10/11/2020 - Criselda Herrera, TRACK LAMINATING MACHINE TENDER* I50.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* Comments:* stable, continue medication as prescribed * Follow up:* January for annual * I70.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 of [place] arteries of extremities with intermittent claudication, left [...] to Reason for Referral Status Appt Date [facility] for Symptom Treatment/Relief referring jermaine genao for chronic disease care. thank you. Closed 09/20/[address] [place], [place] [id number] [phone]
--- OUTSIDE RECORDS SUMMARY | 2021-01-21 18:10 | CCD ---
Author Author [facility] Organization [facility] Address Unknown Phone Unavailable Care Team Providers Care Damage Appraiser Name Role Phone Monika Montano [facility], PA-C Unavailable Unavailabl e Fish Monika [facility], PA-C Un[facility] Unavailable Unavailabl e Fish Monika [facility], PA-C Unavailable Unavailabl e Fish [facility] Unavailable Unavailabl e Fish [facility] Unavailable Unavailabl e Fish [facility] Unavailable Unavailabl e Dusty [facility] Unavailable Unavailabl e Fish, [facility] Unavailable Unavailabl e Fish [facility] Unavailable Unavailabl e Dusty [facility] Unavailable Unavailabl e Fish, Monika Nuzhat [facility], PA-C Unavailable Unavailabl e Fish, [facility], [facility] Unavailable Unavailabl e Fish, [facility], PA-C Unavailable Unavailabl e Fish, [facility], PA-C Unavailable Unavailabl e Fish, [facility], [facility] Unavailable Unavailabl e Fish, [facility], PA-C Unavailable Unavailabl e Fish, [facility], PA-C Unavailable Unavailabl e Fish, [facility], PA-C Unavailable Unavailabl e Fish, [facility], PA-C Unavailable Unavailabl e Fish, [facility], PA-C Unavailable Unavailabl e Fish, [facility], PA-C Unavailable Unavailabl e Fish, [facility], PA-C Unavailable Unavailabl e Fish, [facility], PA-C Unavailable Unavailabl e Fish, [facility], PA-C Unavailable Unavailabl e Fish, [facility], PA-C Unavailable Unavailabl e Fish, [facility], PA-C Unavailable Unavailabl e Fish, [facility], PA-C Unavailable Unavailabl e Fish, [facility], PA-C Unavailable Unavailabl e Fish, [facility], PA-C Unavailable Unavailabl e Fish, [facility], PA-C Unavailable Unavailabl e Fish, [facility], PA-C Unavailable Unavailabl e Fish, [facility], PA-C Unavailable Unavailabl e Fish, [facility], PA-C Unavailable Unavailabl e Fish, [facility], [facility] Unavailable Unavailabl e Fish, [facility], PA-C Unavailable Unavailabl e NAVEEN JACKSON MD Unavailable Unavailable NAVEEN JACKSON [...] Unavailable NAVEEN JACKSON MD Unavailable Unavailable RENETTA, NAVEEN OSMAN Unavailable [...] RENETTA, NAVEEN OSMAN Unavailable Unavailable RENETTA, NAVEEN OSMNA Unavailable Unavailable RENETTA, NAVEEN OSMAN Unavailable Unavailable [...] Unavailable Unavailable RENETTA, NAVEEN OSMAN Unavailable Unavailable MollJeff escobar MD Unavailable Unavailable MollisonJeff MD Unavailable Unavailable MollJeff escobar MD Unavailable Unavailable MollJeff escobar MD Unavailable Unavailable Jeff Marcos MD Unavailable Unavailable Jeff Marcos MD Unavailable Unavailable MollJeff escobar MD Unavailable Unavailable MollJeff escobar MD Unavailable Unavailable MollJeff escobar MD Unavailable Unavailable MollJeff escobar MD Unavailable Unavailable MollJeff escobar MD Unavailable Unavailable MollJeff escobar MD Unavailable Unavailable Jeff Marcos MD Unavailable Unavailable Jeff Marcos MD Unavailable Unavailable Jeff Marcos MD Unavailable Unavailable Jeff Marcos MD Unavailable Unavailable Jeff Marcos MD Unavailable Unavailable Jeff Marcos MD Unavailable Unavailable Jeff Marcos MD Unavailable Unavailable Jeff Marcos MD Unavailable Unavailable Jeff Marcos MD Unavailable Unavailable Jeff Marcos MD Unavailable Unavailable Jeff Marcos MD Unavailable Unavailable Jeff Marcos MD Unavailable Unavailable MollJeff escobar MD Unavailable Unavailable MollJeff escobar MD Unavailable Unavailable MollJeff escobar MD Unavailable Unavailable Mollison, Jeff Hernández MD Unavailable Unavailable Mollison, Jeff Hernández MD Unavailable Unavailable Mollison, Jeff Hernández MD Unavailable Unavailable Mollison, Jeff Hernández MD Unavailable Unavailable MD LENNY FALCON Unavailable Unavailable Pleskach, Criselda PHP WEB DEVELOPER Unavailable Unavailable Pleskach, Criselda PHP WEB DEVELOPER Unavailable Unavailable Pleskach, Criselda PHP WEB DEVELOPER Unavailable Unavailable Pleskach, Criselda PHP WEB DEVELOPER Unavailable Unavailable Pleskach, Criselda PHP WEB DEVELOPER Unavailable Unavailable Pleskach, Criselda PHP WEB DEVELOPER Unavailable Unavailable Pleskach, Criselda PHP WEB DEVELOPER Unavailable Unavailable Pleskach, Criselda PHP WEB DEVELOPER Unavailable Unavailable Pleskach, Criselda PHP WEB DEVELOPER Unavailable Unavailable Pleskach, Criselda PHP WEB DEVELOPER Unavailable Unavailable Pleskach, Criselda PHP WEB DEVELOPER Unavailable Unavailable Pleskach, Criselda PHP WEB DEVELOPER Unavailable Unavailable Pleskach, Criselda PHP WEB DEVELOPER Unavailable Unavailable Pleskach, Criselda PHP WEB DEVELOPER Unavailable Unavailable Pleskach, Criselda PHP WEB DEVELOPER Unavailable Unavailable Pleskach, Criselda PHP WEB DEVELOPER Unavailable Unavailable Pleskach, Criselda PHP WEB DEVELOPER Unavailable Unavailable Pleskach, Criselda PHP WEB DEVELOPER Unavailable Unavailable Pleskach, Criselda PHP WEB DEVELOPER Unavailable Unavailable Pleskach, Criselda PHP WEB DEVELOPER Unavailable Unavailable Pleskach, Criselda PHP WEB DEVELOPER Unavailable Unavailable Pleskach, Criselda PHP WEB DEVELOPER Unavailable Unavailable Pleskach, Criselda PHP WEB DEVELOPER Unavailable Unavailable Pleskach, Criselda PHP WEB DEVELOPER Unavailable Unavailable Pleskach, Criselda PHP WEB DEVELOPER Unavailable Unavailable Pleskach, Criselda PHP WEB DEVELOPER Unavailable Unavailable Pleskach, Criselda PHP WEB DEVELOPER Unavailable Unavailable Pleskach, Criselda PHP WEB DEVELOPER Unavailable Unavailable Pleskach, Criselda PHP WEB DEVELOPER Unavailable Unavailable Pleskach, Criselda PHP WEB DEVELOPER Unavailable Unavailable Pleskach, Criselda PHP WEB DEVELOPER Unavailable Unavailable Pleskach, Criselda PHP WEB DEVELOPER Unavailable Unavailable Pleskach, Criselda PHP WEB DEVELOPER Unavailable Unavailable Pleskach, Criselda PHP WEB DEVELOPER Unavailable Unavailable Pleskach, Criselda PHP WEB DEVELOPER Unavailable Unavailable Pleskach, Criselda PHP WEB DEVELOPER Unavailable Unavailable Pleskach, Criselda PHP WEB DEVELOPER Unavailable Unavailable Pleskach, Criselda PHP WEB DEVELOPER Unavailable Unavailable Pleskach, Criselda PHP WEB DEVELOPER Unavailable Unavailable Pleskach, Criselda PHP WEB DEVELOPER Unavailable Unavailable Pleskach, Criselda PHP WEB DEVELOPER Unavailable Unavailable Pleskach, Criselda PHP WEB DEVELOPER Unavailable Unavailable Pleskach, Criselda PHP WEB DEVELOPER Unavailable Unavailable Pleskach, Criselda PHP WEB DEVELOPER Unavailable Unavailable Km Kathleen MD Unavailable Unavailable Km Kathleen MD Unavailable Unavailable Km Kathleen MD Unavailable Unavailable Km Kathleen MD Unavailable Unavailable Km Kathleen MD Unavailable Unavailable Hever, Km OSMAN Unavailable Unavailable Hever, Km OSMAN Unavailable Unavailable Hever, Km OSMAN Unavailable Unavailable Hever, Km OSMAN Unavailable Unavailable Hever, Km OSMAN Unavailable Unavailable Hever, Km OSMAN Unavailable Unavailable JUAN CARLOS BRICEÑO MD Unavailable Unavailable MD HAFSA JONES Unavailable Unavailable Brantley, M Barratt PA Unavailable [...] Unavailable Brantley, M Barratt PA Unavailable Unavailable Rechlin, P Km DO Unavailable [...] Unavailable Rechlin, P Km DO Unavailable Unavailable Hazel Lombardo MD Unavailable Unavailable Vaneenenaam, Hazel Mcfarland MD Unavailable Unavailable Vaneenenaam, Hazel Mcfarland MD Unavailable Unavailable Vaneenenaam, Hazel Mcfarland MD Unavailable Unavailable Vaneenenaam, Hazel Mcfarland MD Unavailable Unavailable Vaneenenaam, Hazel Mcfarland MD Unavailable Unavailable Vaneenenaam, Hazel Mcfarland MD Unavailable Unavailable Vaneenenaam, Hazel Mcfarland MD Unavailable Unavailable Vaneenenaam, Hazel Mcfarland MD Unavailable Unavailable Vaneenjamelam, Hazel Mcfarland MD Unavailable Unavailable Vaneenenaam, Hazel Mcfarland MD Unavailable Unavailable Vaneenenaam, Hazel Mcfarland MD Unavailable Unavailable Vaneenenaam, Hazel Mcfarland MD Unavailable Unavailable Vaneenenaam, Hazel Mcfarland MD Unavailable Unavailable Vaneenenaam, Hazel Mcfarland MD Unavailable Unavailable Vaneenjamelam, Hazel Mcfarland MD Unavailable Unavailable Vaneenjamelam, Hazel Mcfarland MD Unavailable Unavailable Vaneenjamelam, Hazel Mcfarland MD Unavailable Unavailable Vaneenjamelam, Hazel Mcfarland MD Unavailable Unavailable Vaneenenaam, Hazel Mcfarland MD Unavailable Unavailable Vaneenenaam, Hazel Mcfarland MD Unavailable Unavailable Vaneenjamelam, Hazel Mcfarland MD Unavailable Unavailable Vanfiliberto, Hazel Mcfarland MD Unavailable Unavailable Vanfiliberto, Hazel Mcfarland MD Unavailable Unavailable Vaneenjamelam, Hazel Mcfarland MD Unavailable Unavailable Vaneenenaam, Hazel Mcfarland MD Unavailable Unavailable Vaneenenaam, Hazel Mcfarland MD Unavailable Unavailable Vaneenenaam, Hazel Mcfarland MD Unavailable Unavailable Vaneenenaam, Hazel Mcfarland MD Unavailable Unavailable Vaneenenaam, Hazel Mcfarland MD Unavailable Unavailable Vaneenenaam, Hazel Mcfarland MD Unavailable Unavailable Vaneenenaam, Hazel Mcfarland MD Unavailable Unavailable Vaneenenaam, Hazel Mcfarland MD Unavailable Unavailable Vaneenenaam, Hazel Mcfarland MD Unavailable Unavailable Vaneenenaam, Hazel Mcfarland MD Unavailable Unavailable Vaneenenaam, Hazel Mcfarland MD Unavailable Unavailable Vaneenenaam, Hazel Mcfarland MD Unavailable Unavailable Vaneenenaam, Hazel Mcfarland MD Unavailable Unavailable Vaneenenaam, Hazle Mcfarland MD Unavailable Unavailable Vaneenenaam, Hazel Mcfarland MD Unavailable Unavailable Vaneenenaam, Hazel Mcfarland MD Unavailable Unavailable Vaneenenaam, Hazel Mcfarland MD Unavailable Unavailable Vaneenenaam, Hazel Mcfarland MD Unavailable Unavailable Vaneenenaam, Hazel Mcfarland MD Unavailable Unavailable Vaneenenaam, Hazel Mcfarland MD Unavailable Unavailable Vaneenenaam, Hazel Mcfarland MD Unavailable Unavailable Vaneenenaam, Hazel Mfcarland MD Unavailable Unavailable NAILSMD DARYL Unavailable Unavailable Re-disclosure Warning The records that [...] is protected by Article 27-F of the [facility] Public Health law. If you continue you may have access to information: Regarding HIV / AIDS; Provided by facilities licensed or operated by the [facility] Office of Mental Health; or Provided by the [facility] Office for People With Developmental Disabilities. If such information is present, then the following [facility] mandated warning applies: This information [...] law may result in a fine or usp sentence or both. A general authorization for the release of medical or other information is NOT sufficient authorization for further disc losure. Family History Family Member Name Family Member Gender Family Member Status Date o f Status Description Data Source(s) Unknown Male Problem [facility] ([facility] Unknown Male Problem [facility] ([facility] in 1985 Unknown Unknown Problem [facility] ([facility]) Unknown Male Problem [facility] ([facility] Encounters Encounter Providers Location Date Indications Data Source(s ) Outpatient [facility] 01/15/2021 09:26:15 AM EST [facility] Outpatient Attender: Criselda Herrera [facility] Main [facility] 10/11/2020 0 2:00:00 PM EDT [facility] ([facility]patient [facility] 10/03/2020 01:58:55 PM EDT [facility] OFFICE OUTPATIENT VISIT 15 MINUTES Attender: Hazel aguila MD Physical Therapy 08/22/2020 10:15:00 AM EDT [facility] ([facility] ) Outpatient Attender: Km Bolanos/Vipul/Alex/Chauncey ndamauri 08/15/2020 11:00:00 AM EDT [facility] ([facility] Office Visit Attender: Nuzhat QUEZADA PA-C Physical Therapy 08/08/2020 03:45:00 PM EDT [facility] ([facility]) Outpatient Attender: Nuzhat QUEZADA PA-C Physical Therapy 08/07/2020 01:30:00 PM EDT [facility] ([facility] ) Outpatient Attender: Criselda Herrera [facility] Main Office 07/31/2020 1 1:00:00 AM EDT [facility] ([facility] Outpatient Attender: Criselda Herrera [facility] Main Office 07/12/2020 0 2:00:00 PM EDT [facility] ([facility] Outpatient SJИрина-SJИрина 06/24/2020 04:06:08 PM EDT [facility] Outpatient SJP.ZAIDA-SJP.ZAIDA 06/22/2020 01:43:06 PM EDT [facility] Outpatient Attender: Km Hyman/Vipul/Alex/Rein dl 06/21/2020 01:30:00 PM EDT [facility] ([facility] Outpatient Attender: Edgar Hyman/Vipul/Alex/Re indl 06/02/2020 01:15:00 PM EDT [facility] ([facility] Outpatient Attender: NAVEEN JACKSON MD SJИрина.ZAIDA-SJP.ZAIDA 01:50:15 PM EDT - 05/26/2020 02:22:58 PM EDT [facility] Outpatient Attender: Jeffy DIANA Physical Therapy 01:00:00 PM EDT [facility] ([facility]) Outpatient Attender: Km Bolanos/Vipul/Alex/Chauncey ndl 05/02/2020 10:00:00 AM EDT [facility] ([facility] Outpatient Attender: Km Bolanos/Vipul/Alex/Chauncey ndl 04/12/2020 09:00:00 AM EST [facility] ([facility] Outpatient Attender: Criselda Herrera [facility] Main Office 04/10/2020 0 8:00:00 AM EST [facility] ([facility] Office Visit Attender: Jeffy DIANA Physical Therapy 12:00:00 PM EST [facility] ([facility]) Outpatient Attender: Criselda Herrera [facility] Main Office 03/22/2020 0 2:15:00 PM EST [facility] ([facility] Office Visit Attender: Jeffy DIANA Physical Therapy 12:45:00 PM EST [facility] ([facility] Outpatient Attender: Km Bolanos/Vipul/Alex/Chauncey ndl 02/14/2020 07:30:00 AM EST [facility] ([facility] Outpatient Attender: Criselda Herrera [facility] Main Office 01/31/2020 1 0:45:00 AM EST [facility] ([facility] Outpatient Attender: Criselda Herrera [facility] Main Office 01/19/2020 0 1:00:00 PM EST [facility] ([facility] Outpatient Attender: NAVEEN FLANAGAN.ZAIDA-SJP.ZAIDA 0 12:00:00 AM EST - 01/19/2020 04:09:59 PM EST [facility] Outpatient Attender: Criselda Herrera [facility] Main Office 01/11/2020 0 2:45:00 PM EST [facility] ([facility] Outpatient Attender: Km Bolanos/Vipul/Alex/Chauncey nd 12/21/2019 07:30:00 AM EST [facility] ([facility] Outpatient Attender: Criselda Herrera [facility] Main Office 12/16/2019 0 1:15:00 PM EDT [facility] ([facility] Outpatient Attender: Criselda Herrera [facility] Main Office 12/02/2019 0 4:00:00 PM EDT [facility] ([facility] Outpatient Attender: Criselda Herrera [facility] Main Office 11/24/2019 1 0:00:00 AM EDT [facility] ([facility] Inpatient Attender: MD EILEEN Urrutia: MD HAFSA Grajeda: MD LENNY Negron: RADHA BRICEÑO MDAdmitter: MD LENNY FALCON [facility]-[id number] 07/30/2019 07:36:00 PM EDT [facility] Immunizations Vaccine Date Status Description Data Source(s) Moderna Sars-(Covid-19) vaccine, mRNA, LNP-S, PF, 100 mcg/ 0.5 mL 05/24/2020 12:00:00 AM EDT completed [facility] ([facility] COVID-19 VACCINE Moderna 05/24/2020 12:00:00 AM EDT completed [facility] Vaccine Series Complete: YESThis Data wa s Submitted to [facility] Via [employer]. COVID-19 VACCINE Moderna 04/19/2020 12:00:00 AM EST completed [facility] Vaccine Series Complete: NOThis Data was Submitted to [facility] Via [employer]. Moderna Sars-(Covid-19) vaccine, mRNA, LNP-S, PF, 100 mcg/ 0.5 mL 04/18/2020 11:00:00 PM EST completed [facility] Medications Medication Brand Name Start Date Product Form Dose Route Admi nistrative Instructions Pharmacy Instructions Status Indications Reaction Description Data Source(s) Levofloxacin 500 MG Oral Tablet Levofloxacin 10/11/2020 12:00:00 AM EDT active [facility] ([facility] Walker 08/25/2020 12:00:00 AM EDT active [facility] ([facility] Medrol Medrol 08/07/2020 12:00:00 AM EDT active [facility] ([facility] ) Fluticasone Propionate Fluticasone Propionate 07/31/2020 12:00:00 AM E DT active [facility] ([facility] bimatoprost 0.1 MG/ML Ophthalmic Solution [Lumigan] Lumigan 07/31/2020 12:00:00 AM EDT active [facility] ([facility] Motorized Chair 07/19/2020 12:00:00 AM EDT ac tive [facility] ([facility] Motorized Scooter 07/13/2020 12:00:00 AM EDT completed [facility] bismuth subsalicylate 17.5 MG/ML Oral Suspension [Pepto-bism ol] Pepto-Bismol 06/05/2020 12:00:00 AM EDT ORAL active [facility] ([facility] Commode 03/29/2020 12:00:00 AM EST active [facility] Semi-Electric Adjustable Bed 03/27/2020 12:00:00 AM EST [...] Tablet Oxycodone-Acetaminophen 01/12/2020 12:00:00 AM EST ORAL completed [facility] ([facility] torsemide 20 MG Oral Tablet torsemide (DEMADEX) 20 MG tablet torsemide (DEMADEX) 20 MG tablet 01/12/2020 12:00:00 AM EST 20 mg Oral acti ve Take 20 mg by mouth 2 (two) times a day [facility] Metformin hydrochloride 500 MG Oral Tablet metFORMIN ( GLUCOPHAGE) 500 MG tablet metFORMIN (GLUCOPHAGE) 500 MG tablet 01/11/2020 12:00:00 AM EST active [facility] Bacitracin 0.5 UNT/MG / Neomycin 0.0035 MG/MG / Polymyxin B 10 UNT/MG Topical Ointment Vmqohhrp-Qzfwhzkzla-Ssliguabo (FIRST AID ANTIBIOTIC) 3.5-400-5000 MG- UNIT OINT Xjmjqykj-Rrueqndcxf-Jdbumjsjz (FIRST AID ANTIBIOTIC) 3.5-400-5000 MG- UNIT OINT 12/27/2019 12:00:00 AM EST active [facility] Albuterol 0.833 MG/ML / Ipratropium Brom danial 0.167 MG/ML Inhalant Solution ipratropium-albuterol (DUO-NEB) 0.5-2.5 mg/mL nebulizer ipratropium-albuterol (DUO-NEB) 0.5-2.5 mg/mL nebulizer 12/27/2019 12:00:00 AM EST active [facility] Metolazone 2.5 MG Oral Tablet Metolazone 12/08/2019 12:00:00 AM EDT ORAL active [facility] torsemide 20 MG Oral Tablet Torsemide 12/08/2019 12:00:00 AM EDT active [facility] ([facility] Fluconazole 100 MG Oral Tablet fluconazole (DIFLUCAN) 100 MG tablet fluconazole (DIFLUCAN) 100 MG tablet 12/08/2019 12:00:00 AM EDT aborted [facility] torsemide 10 MG Oral Tablet Torsemide 11/27/2019 [...] MOUTH TWICE A DAY SOLD: 11/27/2019 Ramos Alicia Furosemide 40 MG Oral Tablet [Lasix] Lasix 08/20/2019 12:00:00 AM EDT ORAL completed [facility] ([facility] Acetaminophen 325 MG / Oxycodone Hydrochloride 5 MG Or al Tablet Oxycodone-Acetaminophen 08/12/2019 12:00:00 AM EDT ORAL completed [facility] Docusate Sodium 50 MG / sennosides, GROUP HOME 8.6 MG Oral Ta blet Senna-Docusate Sodium 08/07/2019 12:00:00 AM EDT completed [facility] tizanidine 4 MG Oral Capsule Tizanidine HCL 07/19/2019 12:00:00 AM EDT ORAL completed [facility] ([facility] Brimatoprost Eye Drops 06/29/2019 12:00:00 AM EDT completed [facility] Lidocaine 40 MG/ML Topical Cream Lidocaine 06/29/2019 12:00:00 AM EDT completed [facility] Prednisone 5 MG Oral Tablet predniSONE (DELTASONE) 5 M G tablet predniSONE (DELTASONE) 5 MG tablet 06/25/2019 12:00:00 AM EDT 5 mg Oral aborted Chronic bronchitis, unspecified chronic bronchitis type Take 1 tablet (5 mg total) by mouth daily [facility] Chronic bronchitis, unspecified chronic bronchitis type potassium chloride SA (K-DUR,KLOR-CON) 20 MEQ tablet [id number] 06/25/2019 12:00:00 AM EDT aborted [facility] Furosemide 40 MG Oral Tablet furosemide (LASIX) 40 MG tablet furosemide (LASIX) 40 MG tablet 06/11/2019 12:00:00 AM EDT 40 mg Oral abort ed Take 1 tablet (40 mg total) by mouth 2 (two) times a day [facility] tizanidine 4 MG Oral Tablet tiZANidine (ZANAFLEX) 4 MG tablet tiZANidine (ZANAFLEX) 4 MG tablet 4 mg Oral aborted Take 4 mg by mouth every 6 (six) hours as needed [facility] 60 ACTUAT Fluticasone propionate 0.5 MG/ ACTUAT / salmeterol 0.05 MG/ACTUAT Dry Powder Inhaler fluticasone-salmeterol (ADVAIR) 500-50 MCG/DOSE DISKUS fluticasone-salmeterol (ADVAIR) 500-50 MCG/DOSE DISKUS 1 {puff} Inhalation aborted Inhale 1 puff 2 (two) amy es a day [facility] Insurance Providers Payer name Policy type / Coverage type Policy ID Covered democrat ID Covered democrat's relationship to sellers Policy Sellers Plan Information [facility] 121/621 [id number] [id number] [facility] [id number] SP [id number] MEDICARE [id number] SP [id number] MEDICARE [id number] Susanna [id number] [id number] MEDICARE [id number] Susanna [id number] A MEDICARE [id number] SP [id number] A MEDICARE A [id number] Self [id number] [id number] MEDICARE [id number] xxxxxxxxxxx [id number] MEDICARE A [id number] Self [id number] A FOR LIFE [id number] FOR LIFE [id number] FOR LIFE U [id number] Self [id number] Spo [id number] 501 [id number] xxxxxxxxxxx [id number] FOR LIFE U [id number] Self [id number] [place] MEDICARE [id number] Susanna [id number] For Life Medigap Part B [id number] Family Dependent [id number] Medicare [place] Primary [id number] Self [id number] For Life Reg 1 Medigap Part B [id number] Family Dependent 1 [id number] Medicare - [place] Medicare Primary [id number] Self [id number] For Life Medigap Part B [id number] Family Dependent [id number] Medicare [place] Medicare Primary [id number] Self [id number] For Life Reg 1 Medigap Part B [id number] Family Dependent 1 [id number] Medicare - [place] Medicare Primary [id number] Self 9 [id number] MEDICARE C UNAVAILABLE [id number] S UNAVAILA BLE MEDICARE C [id number] S [id number] A FOR LIFE [id number] [facility] [id number] For Life Reg 1 Medigap Part B [id number] Family Dependent 1 [id number] Medicare - [place]GS Medicare Primary [id number] Self 0 [id number] [place] MEDICARE PART B C [id number] S [id number] For Life Medigap Part B [id number] Family Dependent [id number] Medicare [place] Medicare Primary [id number] Self [id number] For Life Medigap Part B [id number] Family Dependent [id number] Medicare [place] Medicare Primary [id number] Self [id number] For Life Medigap Part B [id number] Family Dependent [id number] Medicare [place] Medicare Primary [id number] Self [id number] PI PI MEDICARE PI PI [id number] Spo [id number] For Life Medigap Part B [id number] Family Dependent [id number] Medicare [place] Medicare Primary [id number] Self [id number] For Life Reg 1 Medigap Part B [id number] [id number] Family Dependent 1 [id number] Medicare - NGS Medicare Primary [id number] [id number] Self 0 [id number] For Life - [place] Medigap Part B [id number] [id number] Self 1 [id number] Medicare (Part A) Medicare Primary [id number] Self 0 [id number] Medicare (Part B) Medicare Primary [id number] [id number] Self 0 [id number] For Life Medigap Part B [id number] Family Dependent [id number] [place] Primary [id number] [id number] Self [id number] For Life - [place]PS Medigap Part B [id number] [id number] Self 1 [id number] Medicare (Part A) Medicare Primary [id number] Self 0 [id number] Medicare (Part B) Medicare Primary [id number] [id number] Self 0 [id number] For Life Medigap Part B [id number] [id number] Family Dependent [id number] Medicare [place] Medicare Primary [id number] [id number] Self [id number] [facility] [id number] S [id number] For Life Medigap Part B [id number] Family Dependent [id number] Medicare [place] Medicare Primary [id number] Self [id number] For Life Medigap Part B [id number] [id number]70.0 Family Dependent [id number] Medicare [place] Medicare Primary [id number] [id number]43.0 Self [id number] For Life Medigap Part B [id number] Family Dependent [id number] Medicare [place] Medicare Primary [id number] [id number] Self [id number] For Life [place] Medigap Part B [id number] [id number] Self [id number] Medicare Natl Gov't Servi Medicare Primary [id number] [id number] Self [id number] For Life Medigap Part B [id number] [id number] Family Dependent [id number] Medicare [place] Medicare Primary [id number] [id number] Self [id number] FOR LIFE [id number] SP [id number] For Life Medigap Part B [id number] Family Dependent Medicare [place] Medicare Primary [id number] Self FOR LIFE [id number] SP [id number] FOR LIFE [id number] SP [id number] MEDICARE [id number] SP [id number] A RETIREE MEDICAL INSURANCE PLAN [id number] SP [id number] A [facility] MEDICAID [id number] SP [id number] Y [id number] [facility] MEDICAID [id number] SP [id number] SELF PAY ONLY [id number] SP [id number] MEDICARE C [id number] S [id number] FOR LIFE O [id number] S [id number] SELF PAY BA [facility] [id number] 2 [id number] [facility] O [id number] S [id number] For Life Medigap Part B [id number] Family Dependent [id number] Medicare [place] Medicare Primary [id number] Self [id number] For Life Medigap Part B [id number] Family Dependent [id number] Medicare [place] Medicare Primary [id number] Self [id number] For Life Reg 1 Medigap Part B [id number] Family Dependent 1 [id number] Medicare - NGS Medicare Primary [id number] Self [id number] For Life Medigap Part B [id number] Family Dependent [id number] Medicare [place] Medicare Primary [id number] Self [id number] Problems, Conditions, and Diagnoses Code Display Name Description Problem Type Effective Dates Data Source(s) R91.8 Abnormal findings on diagnostic imaging of lung Abnormal findings on diagnostic imaging of lung Problem 05/02/2020 12:00:00 AM EDT [facility] ([facility], ) E11.69 Type 2 diabetes mellitus in obese Type 2 diabete s mellitus in obese Problem 04/10/2020 12:00:00 AM EST [facility] ([facility] N18.9 Chronic kidney disease Chronic kidney disease Problem 04/10/2020 12:00:00 AM EST [facility] ([facility] J44.9 Chronic obstructive lung disease Chronic obstructive l jun disease Problem 04/10/2020 12:00:00 AM EST [facility] ([facility] I70.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 Problem 04/10/2020 12:00:00 AM EST [facility] ([facility] I48.91 Atrial fibrillation Atrial fibrillation Problem 0 04/10/2020 12:00:00 AM EST [facility] ([facility] E87.6 Hypokalemia Hypokalemia Problem 04/10/2020 12:00:00 AM EST [facility] ([facility] 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 Problem 04/10/2020 12:00:00 AM EST [facility] ([facility] R91.1 Solitary nodule of lung Solitary nodule of lung Proble m 04/10/2020 12:00:00 AM EST [facility] ([facility] M79.604 Pain in both lower extremities Pain in both lower extr emities [id number] 01/19/2020 12:00:00 AM EST [facility] G47.33 Obstructive sleep apnea syndrome Obstructive sle ep apnea syndrome Problem 12/21/2019 12:00:00 AM EST [facility] ([facility] ) Surgeries/Procedures Procedure Description Date Indications Data Source(s) OFFICE OUTPATIENT VISIT 25 MINUTES 10/11/2020 12:00:00 AM EDT [facility] ([facility] Chronic Care MGMT 20 Mins Clinical Staff Time Per Calendar [facility] 10/03/2020 12:00:00 AM EDT [facility] ([facility] Chronic Care MGMT 20 Mins Clinical Staff Time Per Calendar M [facility] 08/30/2020 12:00:00 AM EDT [facility] ([facility] OFFICE OUTPATIENT VISIT 15 MINUTES 08/22/2020 12:00:00 AM EDT [facility] ([facility]) Spirometry 08/15/2020 12:00:00 AM EDT M [facility] ([facility]) OFFICE OUTPATIENT VISIT 25 MINUTES 08/15/2020 12:00:00 AM EDT [facility] ([facility]) PHYSICIAN TELEPHONE EVALUATION 11-20 MIN 08/08/2020 12 :00:00 AM EDT [facility] ([facility]) OFFICE OUTPATIENT VISIT 25 MINUTES 08/07/2020 12:00:00 AM EDT [facility] ([facility]) OFFICE OUTPATIENT VISIT 25 MINUTES 07/31/2020 12:00:00 AM EDT [facility] ([facility] Chronic Care MGMT 20 Mins Clinical Staff Time Per Calendar M [facility] 07/27/2020 12:00:00 AM EDT [facility] ([facility] Chronic Care Management Services Ea Addl 20 Min 2020 12:00:00 AM EDT [facility] ([facility] Chronic Care MGMT 20 Mins Clinical Staff Time Per Calendar M [facility] 07/13/2020 12:00:00 AM EDT [facility] ([facility] OFFICE OUTPATIENT VISIT 25 MINUTES 07/12/2020 12:00:00 AM EDT [facility] ([facility] Diabetic Foot Exam 07/12/2020 12:00:00 AM EDT [facility] ([facility] OFFICE OUTPATIENT VISIT 25 MINUTES 06/21/2020 12:00:00 AM EDT [facility] ([facility]) Chronic Care Management Services Ea Addl 20 Min 2020 12:00:00 AM EDT [facility] ([facility] Chronic Care MGMT 20 Mins Clinical Staff Time Per Calendar M [facility] 06/15/2020 12:00:00 AM EDT [facility] ([facility] OFFICE OUTPATIENT NEW 45 MINUTES 06/02/2020 12:00:00 A M EDT [facility] ([facility], ) Chronic Care Management Services Ea Addl 20 Min 2020 12:00:00 AM EDT [facility] ([facility] Chronic Care MGMT 20 Mins Clinical Staff Time Per Calendar M [facility] 05/04/2020 12:00:00 AM EDT [facility] ([facility] X-Ray Hip Unilateral With Pelvis 2-3 Views 05/03/2020 12:00:00 AM EDT [facility] ([facility]) OFFICE OUTPATIENT VISIT 25 MINUTES 05/03/2020 12:00:00 AM EDT [facility] ([facility]) OFFICE OUTPATIENT VISIT 15 MINUTES 05/02/2020 12:00:00 AM EDT [facility] ([facility], ) OFFICE OUTPATIENT VISIT 15 MINUTES 04/12/2020 12:00:00 AM EST [facility] ([facility], ) ARTHROCENTESIS ASPIR&/INJECTION MAJOR JT/BURSA 021 12:00:00 AM EST [facility] ([facility]) Mammogram 01/26/2020 12:00:00 AM EST M [facility] ([facility] ECG ROUTINE ECG W/LEAST 12 LDS W/I&R <td>POCT AMB EKG</td><td>Routine</td><td>01/19/2020 5:19 PM EST</td><td> Atrial flutter, unspecified type</td><td> </td> 01/19/2020 10:19:00 PM EST Atrial flutter, unspecified type [facility] Atrial flutter, unspecified type BLOOD COUNT COMPLETE AUTO&AUTO DIFRNTL WBC COUNT <td>C BC AND DIFFERENTIAL</td><td>Routine</td><td>12/08/2019</td><td></td><td> </td> 12/08/2019 12:00:00 AM EDT [facility] BASIC METABOLIC PANEL CALCIUM TOTAL <td>BASIC METABOLI C PANEL</td><td>Routine</td><td>12/08/2019</td><td></td><td> </td> 12/08/2019 12:00:00 AM EDT [facility] Results ID Date Data Source [id number] 10/18/2020 04:26:00 PM EDT [facility] ([facility] [...] AFTER 5 DAYS ID Date Data Source [id number] 10/18/2020 04:07:00 PM EDT [facility] Name Value Range Interpretation Code Description Data Luz rce(s) Supporting Document(s) SARS coronavirus 2 RNA [Presence] in Res piratory specimen by TEO with probe detection NEGATIVE [facility] This lab was ordered by [facility] a nd reported by [facility]. ID Date Data Source [id number] 10/18/2020 04:07:00 PM EDT [facility] ([facility] [...] AFTER 5 DAYS ID Date Data Source [id number] 10/18/2020 04:07:00 PM EDT [facility] ([facility] Name Value Range Interpretation Code Description Data Luz rce(s) Supporting Document(s) Influenza A Amplification Laboratory test result [facility] ([facility] Negative results do not preclude influen za or RSV virus infection and should not be used as the sole basis for treatment or other patient management decisions. Influenza B Amplification Laboratory test result [facility] ([facility] Negative results do not preclude influen za or RSV virus infection and should not be used as the sole basis for treatment or other patient management decisions. Laboratory test finding (navigational concept) Laboratory test [...] pathogens. DISCLAIMER: Testing was performed using the [employer] SARS-CoV-2 test. This test was developed and its performance characteristics determined by [employer]. This test has not been FDA cleared [...] the authorization is terminated or revoked sooner. RSV Amplification Laboratory test result [facility] ([facility] Negative results do not preclude influen za or RSV virus infection and should not be used as the sole basis for treatment or other patient management decisions. ID Date Data Source [id number] 10/18/2020 01:47:00 PM EDT [facility] ([facility] Name Value Range Interpretation Code Description Data Luz e(s) Supporting Document(s) C reactive protein [Mass/volume] in Serum or Plasma by High sensitivity method 1.22 mg/dL 0.00-0.30 [facility] Natriuretic peptide.B prohormone N-Terminal [Mass/volu me] in Serum or Plasma 427 pg/mL [facility] Erythrocyte sedimentation rate by 2H Westergren method 27 mm/hr 0-3 0 [facility] ID Date Data Source [id number] 10/18/2020 01:47:00 PM EDT [facility] ([facility] Name Value Range Interpretation Code Description Data [facility](s) Supporting Document(s) Blood Urea Nitrogen 20 mg/dL 7-18 [facility] ([facility] Glucose, Fasting 169 mg/dL 70-100 [facility] Creatinine For GFR 1.34 mg/dL 0.55-1.30 [facility] Glomerular Filtration Rate 40.7 [facility] ([facility] <content>Units are mL/min/1.73 m2</content>
<content></content>
<content>Chronic Kidney Disease Staging per NKF:</content>
<content></content>
<content>Stage I & II GFR >=60 Normal to Mildly Decreased</content>
<content>Stage III GFR 30- 59 Moderately Decreased</content>
<content>Stage IV GFR 15-29 Severely Decreased</content>
<content>Stage V GFR <15 Very Little GFR Left</content>
<content>ESRD GFR <15 on DIRECTORY ASSISTANCE OPERATOR</content>
<content></content> Sodium Level 140 meq/L 136-145 [facility] Potassium Serum 4.3 meq/L 3.5-5.1 [facility] Chloride Level 106 meq/L 98-107 [facility] Anion Gap 4 meq/L 8-16 [facility] Carbon Dioxide Level 30 meq/L 21-32 [facility] ([facility] Calcium Level 8.7 mg/dL 8.8-10.2 [facility] ID Date Data Source [id number] 10/18/2020 01:47:00 PM EDT [facility] ([facility] Name Value Range Interpretation Code Description Data Luz rce(s) Supporting Document(s) CK-MB Value Mass Laboratory test result [facility] ([facility] CPK Creatine Phosphokinase 15 U/L 26-192 [facility] MB/CK Relative Index 6.67 [facility] ([facility] <content>DIAGNOSIS CRITERIA</content>
<content>MMB ng/ml Relative Index (RI)</content>
<content>NON-AMI < or = 5 N/A</content>
<content>GOYAL ZONE > 5 < or = 4</content>
<content>AMI > 5 > 4</content>
<content></content> Troponin I Laboratory test result [facility] ([facility] <content>Troponin I Reference Interval f or Siemens Mcdavid LOCI:</content>
<content></content>
<content>99th Percentile= 0.00-0.045 ng/ml</content>
<content></content>
<content>Risk Stratification:</content>
<content><= 0.10 ng/ml Decreased Risk for Adverse Clinical</content>
<content>Events.</content>
<content>0.10-1.50 ng/ml Increased Risk for Adverse Clinical</content>
<content>Events. Evaluation of additional</content>
<content>criterion and/or repeat testing in 2-6</content>
<content>hours is suggested to rule out myocardial</content>
<content>damage.</content>
<content>>= 1.50 ng/ml Indicative of Myocardial Injury.</content>
<content></content> ID Date Data Source [id number] 10/18/2020 01:47:00 PM EDT [facility] ([facility] Name Value Range Interpretation Code Description Data Luz rce(s) Supporting Document(s) White Blood Count 5.3 10 4.0-10.0 [facility] ([facility] Red Blood Count 3.31 10 4.00-5.40 [facility] Hemoglobin 9.7 g/dL 12.0-15.5 [facility] Hematocrit 30.9 % 36.0-47.0 [facility] Mean Corpuscular Volume 93.4 fl 80.0-96.0 M [facility] ([facility] Mean Corpuscular Hemoglobin 29.3 pg 27.0-33.0 [facility] Mean Corpuscular HGB Conc 31.4 g/dL 32.0-36.5 [facility] Platelet Count, Automated 110 10 150-450 [facility] Red Cell Distribution Width 14.6 % 11.5-14.5 [facility] Lymph % 12.6 % 24.0-44.0 [facility] Neutrophils % 74.9 % 36.0-66.0 [facility] [place] % 7.5 % 2.0-8.0 [facility] Eos % 3.8 % 0.0-3.0 [facility] Baso % 0.4 % 0.0-1.0 [facility] Immature Granulocyte % 0.8 % 0-3.0 [facility] Nucleated Red Blood Cell % 0.0 % 0-0 [facility] Neutrophils # 4.0 10 1.5-8.5 [facility] [place] # 0.4 10 0.0-0.8 [facility] Lymph # 0.7 10 1.5-5.0 [facility] Eos # 0.2 10 0.0-0.5 [facility] Baso # 0.0 10 0.0-0.2 [facility] ID Date Data Source [id number] 10/11/2020 03:31:00 PM EDT [facility] ([facility] Name Value Range Interpretation Code Description [facility] Supporting Document(s) Malb Urine Siemens 9.0 mg/L [facility] ([facility] Moose/Creat Ratio 17.1 MCG/MG 0.0-30.0 [facility] ([facility] THE [employer] STATES THAT MICROALBUMINURIA IS PRESENT IF THE MICROALBUMIN/CREATININE RATIO EXCEEDS 30 MCG/MG. THE THRESHOLD FOR CLINICAL ALBUMINURIA IS REACHED AT 300 MCG/MG. THE CLASSIFICATION OF A PATIENT SHOULD BE BASED UPON AT LEAST 2 OF 3 ABNORMAL RESULTS ON SPECIMENS COLLECTED WITHIN A 3 TO 6 MONTH TIME FRAME. Creatinine, Urine 52.4 mg/dL [facility] ID Date Data Source [id number] 10/11/2020 03:31:00 PM EDT [facility] ([facility] Name Value Range Interpretation Code Description Data [facility] Supporting Document(s) Cholesterol Level 98 mg/dL [facility] ([facility] Triglycerides Level 75 mg/dL [facility] ([facility] LDL Cholesterol 37 mg/dL [facility] HDL Cholesterol 46 mg/dL [facility] Cholesterol Risk Ratio 2.130 [facility] Non-HDL-C 52 mg/dL [facility] ID Date Data Source [id number] 10/11/2020 03:31:00 PM EDT [facility] ([facility] Name Value Range Interpretation Code Description Data [facility] Supporting Document(s) Hemoglobin A1c/Hemoglobin.total in Blood 5.9 % [facility] <content>REFERENCE RANGES:</content><br/ ><content></content>
<content><=5.6% NORMAL</content>
<content>5.7-6.4% SUGGESTS IMPAIRED GLUCOSE METABOLISM/PREDIABETIC</content>
<content>>= 6.5% ABNORMAL</content>
<content></content> Estimated Average Glucose 123 mg/dL 60-110 [facility] ID Date Data Source [id number] 10/11/2020 03:31:00 PM EDT [facility] ([facility] Name Value Range Interpretation Code Description Data Luz rce(s) Supporting Document(s) Glucose, Fasting 90 mg/dL 70-100 [facility] Blood Urea Nitrogen 20 mg/dL 7-18 [facility] ([facility] Creatinine For GFR 1.42 mg/dL 0.55-1.30 [facility] Sodium Level 139 meq/L 136-145 [facility] Glomerular Filtration Rate 38.1 [facility] ([facility] <content>Units are mL/min/1.73 m2</content>
<content></content>
<content>Chronic Kidney Disease Staging per NKF:</content>
<content></content>
<content>Stage I & II GFR >=60 Normal to Mildly Decreased</content>
<content>Stage III GFR 30- 59 Moderately Decreased</content>
<content>Stage IV GFR 15-29 Severely Decreased</content>
<content>Stage V GFR <15 Very Little GFR Left</content>
<content>ESRD GFR <15 on DIRECTORY ASSISTANCE OPERATOR</content>
<content></content> Potassium Serum 4.1 meq/L 3.5-5.1 [facility] Chloride Level 104 meq/L 98-107 [facility] Carbon Dioxide Level 30 meq/L 21-32 [facility] ([facility] Calcium Level 8.7 mg/dL 8.8-10.2 [facility] Anion Gap 5 meq/L 8-16 [facility] Ast/Sgot 5 U/L 7-37 [facility] Alt/SGPT 11 U/L 12-78 [facility] Total Protein 5.2 GM/DL 6.4-8.2 [facility] Alkaline Phosphatase 56 U/L 45-117 [facility] ([facility] Bilirubin,Total 1.0 mg/dL 0.2-1.0 [facility] Albumin/Globulin Ratio 1.2 1.2-2.2 [facility] Albumin 2.8 GM/DL 3.2-5.2 [facility] ID Date Data Source [id number] 08/15/2020 11:05:00 AM EDT [facility] ([facility], ) Name Value Range Interpretation Code Description Data Luz rce(s) Supporting Document(s) FVC-Pred 2.45 L [facility] ([facility], ) PDFReport Laboratory test result [facility] ([facility], ) FVC-%Pred-Pre 63 L [facility] ([facility], ) FVC-LLN 1.80 L [facility] ([facility], ) FVC-Pre 1.55 L [facility] ([facility], ) Fev1-Pre 1.31 L [facility] ([facility]) Fev1-Pred 1.82 L [facility] ([facility]) Fev1-%Pred-Pre 71 L [facility] ([facility], ) Fev6-Pred 2.32 L [facility] ([facility], ) Fev1-LLN 1.27 L [facility] ([facility]) Fev6-%Pred-Pre 66 L [facility] ([facility]) Fev6-Pre 1.55 L [facility] ([facility]) Xbn2roq-Yzlc 74 % [facility] ([facility]) Yts3yvw-Nlc 84 % [facility] ([facility]) Fev6-LLN 1.68 L [facility] ([facility]) Qeu0ooc-WYU 64 % [facility] ([facility]) Odk1txl-%Pred-Pre 113 % [facility] ([facility]) Ojp6zbk-%Pred-Pre 105 % [facility] ([facility]) Prw0rlj-Kqu 100 % [facility] ([facility]) Htt4wbp-Kdff 95 % [facility] ([facility]) FEFMax-Pred 4.68 L/E/sec [facility] ([facility], ) FEFMax-Pre 3.53 L/E/sec [facility] ([facility]) FEFMax-%Pred-Pre 75 L/E/sec [facility] ([facility]) FEFMax-LLN 3.07 L/E/sec [facility] ([facility]) Ehd8431-Djez 1.40 L/E/sec [facility] ([facility]) Tnw2920-FUC 0.23 L/E/sec [facility] ([facility]) Khv2567-Ruh 1.51 L/E/sec [facility] ([facility], ) Zyy0749-%Pred-Pre 108 L/E/sec [facility] ([facility]) ExpTime-Pre 4.54 sec [facility] ([facility]) Tbb9dca8-Mwbd 78 % [facility] ([facility]) Cwu7cbq1-Aeq 84 % [facility] ([facility]) Tni7iqw5-%Pred-Pre 108 % [facility] ([facility]) Vul4ngi8-UQE 69 % [facility] ([facility]) ID Date Data Source [id number] 08/03/2020 02:55:00 PM EDT [facility] ([facility] Name Value Range Interpretation Code Description Data Luz rce(s) Supporting Document(s) Blood Urea Nitrogen 24 mg/dL 7-18 [facility] ([facility] Glucose, Fasting 121 mg/dL 70-100 [facility] Creatinine For GFR 1.55 mg/dL 0.55-1.30 [facility] Glomerular Filtration Rate 34.4 [facility] ([facility] <content>Units are mL/min/1.73 m2</content>
<content></content>
<content>Chronic Kidney Disease Staging per NKF:</content>
<content></content>
<content>Stage I & II GFR >=60 Normal to Mildly Decreased</content>
<content>Stage III GFR 30- 59 Moderately Decreased</content>
<content>Stage IV GFR 15-29 Severely Decreased</content>
<content>Stage V GFR <15 Very Little GFR Left</content>
<content>ESRD GFR <15 on DIRECTORY ASSISTANCE OPERATOR</content>
<content></content> Chloride Level 97 meq/L 98-107 [facility] ([facility] Potassium Serum 4.6 meq/L 3.5-5.1 [facility] ([facility] Sodium Level 136 meq/L 136-145 [facility] ([facility] Anion Gap 6 meq/L 8-16 [facility] (Nuzhat rivera [facility] Carbon Dioxide Level 33 meq/L 21-32 [facility] (Sukumar [facility] Calcium Level 9.8 mg/dL 8.8-10.2 [facility] ([facility] ID Date Data Source [id number] 07/31/2020 01:30:00 PM EDT [facility] ([facility] Name Value Range Interpretation Code Description Data Luz rce(s) Supporting Document(s) Blood Urea Nitrogen 21 mg/dL 7-18 [facility] (Cullen [facility] Glucose, Fasting 173 mg/dL 70-100 [facility] ([facility] Creatinine For GFR 1.33 mg/dL 0.55-1.30 [facility] ([facility] Sodium Level 138 meq/L 136-145 [facility] ([facility] Glomerular Filtration Rate 41.1 [facility] ([facility] <content>Units are mL/min/1.73 m2</content>
<content></content>
<content>Chronic Kidney Disease Staging per [facility]:</content>
<content></content>
<content>Stage I & II GFR >=60 Normal to Mildly Decreased</content>
<content>Stage III GFR 30- 59 Moderately Decreased</content>
<content>Stage IV GFR 15-29 Severely Decreased</content>
<content>Stage V GFR <15 Very Little GFR Left</content>
<content>ESRD GFR <15 on DIRECTORY ASSISTANCE OPERATOR</content>
<content></content> Potassium Serum 2.9 meq/L 3.5-5.1 Below lower panic limits [facility] ([facility] Chloride Level 99 meq/L 98-107 [facility] ([facility] Carbon Dioxide Level 32 meq/L 21-32 [facility] (Sukumar [facility] Anion Gap 7 meq/L 8-16 [facility] ([facility] Calcium Level 9.7 mg/dL 8.8-10.2 [facility] ([facility] ID Date Data Source [id number] 07/26/2020 11:54:00 PM EDT [facility] ([facility] Name Value Range Interpretation Code Description Data Luz rce(s) Supporting Document(s) Troponin I.cardiac [Mass/volume] in Serum or Plasma 0.00 ng/mL 0.00-0 .08 [facility] ([facility] ID Date Data Source [id number] 06/24/2020 04:04:54 PM EDT [facility] Name Value Range Interpretation Code Description Data Luz rce(s) Supporting Document(s) &PDF [facility] BKQQWw1wMfQRSdSk65/SBQtiEERsn6GkHLgwHKq9GQsyJDNzP4PxePeoRDUVApYTLNLwWF8CP8CLTnTb oRX [file] AgICAgICAgICAgICAgICAgICAgICAgICAgICAgICAgICAgICAgICAgICAgICAgICAgICAgDQogICAgIC AgICAgICAgICAgICAgICAgICAgICAgICAgICAgICAg ICAgICAgICAgICAgICAgICAgICAgICAgICAgICAgICAgICAgICAgICAgICAgICAgICAgICAgICAgICAg ICAgDQogICAgICAgICAgICAgICAgICAgICAgICAgICAgICAgICAgICAgICAgICAgICAgICAgICAgICAg ICAgICAgICAgICAgICAgICAgICAgICAgICAgICAgIC AgICAgICAgICAgICAgDQogICAgICAgICAgICAgICAgICAgICAgICAgICAgICAgICAgICAgICAgICAgIC AgICAgICAgICAgICAgICAgICAgICAgICAgICAgICAgICAgICAgICAgICAgICAgICAgICAgICAgDQogIC AgICAgICAgICAgICAgICAgICAgICAgICAgICAgICAg ICAgICAgICAgICAgICAgICAgICAgICAgICAgICAgICAgICAgICAgICAgICAgICAgICAgICAgICAgICAg ICAgICAgDQogICAgICAgICAgICAgICAgICAgICAgICAgICAgICAgICAgICAgICAgICAgICAgICAgICAg ICAgICAgICAgICAgICAgICAgICAgICAgICAgICAgIC AgICAgICAgICAgICAgICAgDQogICAgICAgICAgICAgICAgICAgICAgICAgICAgICAgICAgICAgICAgIC AgICAgICAgICAgICAgICAgICAgICAgICAgICAgICAgICAgICAgICAgICAgICAgICAgICAgICAgICAgDQ ogICAgICAgICAgICAgICAgICAgICAgICAgICAgICAg ICAgICAgICAgICAgICAgICAgICAgICAgICAgICAgICAgICAgICAgICAgICAgICAgICAgICAgICAgICAg ICAgICAgICAgDQogICAgICAgICAgICAgICAgICAgICAgICAgICAgICAgICAgICAgICAgICAgICAgICAg ICAgICAgICAgICAgICAgICAgICAgICAgICAgICAgIC AgICAgICAgICAgICAgICAgICAgDQogICAgICAgICAgICAgICAgICAgICAgICAgICAgICAgICAgICAgIC AgICAgICAgICAgICAgICAgICAgICAgICAgICAgICAgICAgICAgICAgICAgICAgICAgICAgICAgICAgIC LyJTb7U3cnGJArVLEaEO1pNUt1Hk5+DQoNCmVuZHN0 rkIbrV7OYM9sc6LuBVvhMSXxy3ZpCAs4MD1IBNWnTWznJP2QSXbuax2PRSCxMAIskCHHs2ogYzSsPMC4 FCZmNctcIR2ZCBSqG0mofbWnMHIbLZNNTHhoHXCQBI8XEgElA0JmoN08GQVQZw1+DQplbmRvYmoNCjMz QLHye8HqIVy1EL1ZNSKkAWigDD3THORbmV1mEOgkYP 4RXmAaKYKpZOBELaYxP64vsQUjXFi9R0GcOtSdLNKkYcygHUCvSXeoHtSrHJTbMrOoHYntOW8+ID4+DQ opFB1HONgpwvUgQCEeEv4QXPTxTSR5TVUcjRXhIvJgXPCIXPbmOC1AdGFeQFL4kU7cWBsaFGYtMWNyS0 tOMtTrtIfjLN34bHjndcTyeDIkPYg+Uu3ZHU8mc6Kj PUn2hpGqQSswBHY8GNmoTVGxVTVwJSXdWZO2GDA2YKKXYpMmPZSkKJGiZOfcUCIgRIHaou0FGKPnDTSw CRN5OQSvHOJnHGYjRFcmOTPvCTIcFAZxBOZfKWCtIV9AEmWgMUPqVSKqQAFcTEXzEZVomt6SOXVlTMDj IjJ5SdWsHMRyWIWsUEsqWIHbUBTiQsXjWEUxMZYtTD 5TLuBwICOdFAIyPbHmVGHvLCZjgd4AQVAhESEdGLAeWkPePYLsVYYwZHogHJCjHRN1Kfz3CYCrRKXyGM 6ZUaKxOWQxNIC4WJPnGFObRRFgbo9VUOKmTXSbBeT6BoJcTNFjPTNqMBxwOWRcTAC4EvQhKKCsXDSeEV 6OZgQfSCWyMHv4LePhYTLrFREdab5SHBNrZXJuMEDb ZxChXUYyPCHcNStcRQWeNJAzWCq4VQTyUFSwWH5HTjWlSMPkZQViUBDpWIEcWAOqdp6MMLSbRFOvWjQm CePcMINtORKcRSgfCNFuRVRmYbV0SASlQQGqAI5IRqXoROCwDRF4SZOmBMRiNHIxpr5MQQKiTZVqTDbu XkFpDQKiVMOkJYhpIVTgSIF0NWAjYWQxUWXpPM4MRh OtISWlKFWxAAPwQEXsJPLhae6ODJDwDEAuFzLxLgQqAUKiTRGpDXqgRUYmUKS5ScTcJPWgBRZcUT9PMp XoGGVaUQAeNRabNKPrAELdpz9BKHTfSQLhVrefNJVpVDQbYQPiVKolLXFhNHX6SNI9VXUyOBOoCJ6UNl TqJJNvVHchVmpqEGNhPLStrj2BVFAyPKMnSaTnZzVf INOkMTNaAEebCHGzMWY0XFN3RMKcQCYdTQ7JXzYsHNGgVSfrYnshJVJrRDJrsi8JEERdTGBmJUD1McUr VKNpDWHkEYlhMGGbAFOyPZC8JGDvBKRnXC4WQdHfVRmkRVPKLcc8CTnqC2j3PJOlVL0ZE9Oaf9UyErNb PLQXGWftEW6mroGmDOQoKe4NU1iMXxieJ7CeDRF5ZC CzLFYfIEUeITk2Zhc6GMwbSBcvIZX1ES0kAZVkPJBdLKdhKTEiUOTeUXVsHNDnGWmpJiNiWPV1TglaDz UuUP3NRd0KXwC1JUD6wDKxCa5PGjBvDXLCTxCaNZ2ZSVl= ID Date Data Source [id number] 06/06/2020 11:31:00 PM EDT [facility] ([facility]iv[facility] Name Value Range Interpretation Code Description Data Luz rce(s) Supporting Document(s) Influenza A Amplification Laboratory test result [facility] ([facility] Negative results do not preclude influen za or RSV virus infection and should not be used as the sole basis for treatment or other patient management decisions. RSV Amplification Laboratory test result [facility] ([facility] Negative results do not preclude influen za or RSV virus infection and should not be used as the sole basis for treatment or other patient management decisions. Influenza B Amplification Laboratory test result [facility] ([facility] Negative results do not preclude influen za or RSV virus infection and should not be used as the sole basis for treatment or other patient management decisions. Laboratory test finding (navigational concept) Laboratory test [...] pathogens. DISCLAIMER: Testing was performed using the [employer] SARS-CoV-2 test. This test was developed and its performance characteristics determined by [employer]. This test has not been FDA cleared [...] or revoked sooner. ID Date Data Source [id number] 06/06/2020 11:31:00 PM EDT [facility] Name Value Range Interpretation Code Description Data Luz rce(s) Supporting Document(s) SARS coronavirus 2 RNA [Presence] in Res piratory specimen by TEO with probe detection NEGATIVE [facility] This lab was ordered by [facility] a nd reported by [facility]. ID Date Data Source [id number] 06/06/2020 10:54:00 PM EDT [facility] ([facility] Name Value Range Interpretation Code Description Data Luz rce(s) Supporting Document(s) Natriuretic peptide.B prohormone N-Terminal [Mass/volu me] in Serum or Plasma 260 pg/mL [facility] ([facility] ID Date Data Source [id number] 06/06/2020 10:54:00 PM EDT [facility] ([facility] Name Value Range Interpretation Code Description Data Luz rce(s) Supporting Document(s) Blood Urea Nitrogen 22 mg/dL 7-18 [facility] ([facility] Glucose, Fasting 124 mg/dL 70-100 [facility] ([facility] Creatinine For GFR 1.24 mg/dL 0.55-1.30 [facility] ([facility] Glomerular Filtration Rate 44.5 [facility] ([facility] <content>Units are mL/min/1.73 m2</content>
<content></content>
<content>Chronic Kidney Disease Staging per NKF:</content>
<content></content>
<content>Stage I & II GFR >=60 Normal to Mildly Decreased</content>
<content>Stage III GFR 30- 59 Moderately Decreased</content>
<content>Stage IV GFR 15-29 Severely Decreased</content>
<content>Stage V GFR <15 Very Little GFR Left</content>
<content>ESRD GFR <15 on DIRECTORY ASSISTANCE OPERATOR</content>
<content></content> Sodium Level 140 meq/L 136-145 [facility] ([facility] Potassium Serum 3.6 meq/L 3.5-5.1 [facility] ([facility] Chloride Level 99 meq/L 98-107 [facility] ([facility] Carbon Dioxide Level 35 meq/L 21-32 [facility] ([facility] Anion Gap 6 meq/L 8-16 [facility] ([facility] Calcium Level 10.2 mg/dL 8.8-10.2 [facility] ([facility] ID Date Data Source [id number] 06/06/2020 10:54:00 PM EDT [facility] ([facility] Name Value Range Interpretation Code Description Data Luz rce(s) Supporting Document(s) Ast/Sgot 4 U/L 7-37 [facility] ([facility] Alkaline Phosphatase 57 U/L 45-117 [facility] ([facility]agn[facility] Alt/SGPT 9 U/L 12-78 [facility] ([facility] Bilirubin,Direct 0.2 mg/dL 0.0-0.2 [facility] ([facility] Bilirubin,Total 0.7 mg/dL 0.2-1.0 [facility] ([facility] Total Protein 5.5 GM/DL 6.4-8.2 [facility] ([facility] Albumin/Globulin Ratio 1.5 1.2-2.2 [facility] ([facility] Albumin 3.3 GM/DL 3.2-5.2 [facility] ([facility] ID Date Data Source [id number] 06/06/2020 10:54:00 PM EDT [facility] ([facility] Name Value Range Interpretation Code Description Data Luz rce(s) Supporting Document(s) CPK Creatine Phosphokinase 17 U/L 26-192 [facility] ([facility] MB/CK Relative Index 5.88 [facility] ([facility] <content>DIAGNOSIS CRITERIA</content>
<content>MMB ng/ml Relative Index (RI)</content>
<content>NON-AMI < or = 5 N/A</content>
<content>GOYAL ZONE > 5 < or = 4</content>
<content>AMI > 5 > 4</content>
<content></content> CK-MB Value Mass Laboratory test result [facility] ([facility] Troponin I Laboratory test result [facility] ([facility] <content>Troponin I Reference Interval f or Siemens Mcdavid LOCI:</content>
<content></content>
<content>99th Percentile= 0.00-0.045 ng/ml</content>
<content></content>
<content>Risk Stratification:</content>
<content><= 0.10 ng/ml Decreased Risk for Adverse Clinical</content>
<content>Events.</content>
<content>0.10-1.50 ng/ml Increased Risk for Adverse Clinical</content>
<content>Events. Evaluation of additional</content>
<content>criterion and/or repeat testing in 2-6</content>
<content>hours is suggested to rule out myocardial</content>
<content>damage.</content>
<content>>= 1.50 ng/ml Indicative of Myocardial Injury.</content>
<content></content> ID Date Data Source [id number] 06/06/2020 10:54:00 PM EDT [facility] ([facility] Name Value Range Interpretation Code Description Data Luz rce(s) Supporting Document(s) Lactate [Mass/volume] in Serum or Plasma 1.9 mmol/L 0.4-2.0 [facility] ([facility] Y/N query for Sepsis Lactate Rule: Y ID Date Data Source [id number] 06/06/2020 10:54:00 PM EDT [facility] ([facility] Name Value Range Interpretation Code Description Data Luz rce(s) Supporting Document(s) White Blood Count 8.5 10 4.0-10.0 [facility] ([facility] Hemoglobin 10.4 g/dL 12.0-15.5 [facility] ([facility] jennings [facility] Red Blood Count 3.62 10 4.00-5.40 [facility] ([facility] Hematocrit 33.0 % 36.0-47.0 [facility] ([facility]ings [facility] Mean Corpuscular Volume 91.2 fl 80.0-96.0 M [facility] ([facility] Mean Corpuscular Hemoglobin 28.7 pg 27.0-33.0 [facility] ([facility] Mean Corpuscular HGB Conc 31.5 g/dL 32.0-36.5 [facility] ([facility] Red Cell Distribution Width 15.2 % 11.5-14.5 [facility] ([facility] Neutrophils % 69.4 % 36.0-66.0 [facility] ([facility] Platelet Count, Automated 165 10 150-450 [facility] ([facility] Lymph % 20.2 % 24.0-44.0 [facility] ([facility] [place] % 6.9 % 2.0-8.0 [facility] ([facility] Baso % 0.5 % 0.0-1.0 [facility] ([facility] Eos % 2.6 % 0.0-3.0 [facility] ([facility] Immature Granulocyte % 0.4 % 0-3.0 [facility] ([facility] Nucleated Red Blood Cell % 0.0 % 0-0 [facility] ([facility] Lymph # 1.7 10 1.5-5.0 [facility] ([facility] Neutrophils # 5.9 10 1.5-8.5 [facility] ([facility] [place] # 0.6 10 0.0-0.8 [facility] ([facility] Eos # 0.2 10 0.0-0.5 [facility] ([facility] Baso # 0.0 10 0.0-0.2 [facility] ([facility] ID Date Data Source [id number] 05/18/2020 10:45:00 AM EDT [facility] ([facility] Name Value Range Interpretation Code Description Data Luz rce(s) Supporting Document(s) Laboratory test finding (navigational concept) Laboratory test result [facility] ([facility] Test: COVID-19 Nasal/Naspharynx Result: NOT DETECTED Reference Units: Not detected Note: Please consider re-collection of a new specimen, if clinically indicated. Note: The COVID-19 assay is under Emergency Use Authorization(EUA) by the U.S. Food and Drug Administration. [facility] and [facility] are designated as high complexity laboratories by the Clinical Laboratory Improvement Amendments of 1988(CLIA) and is qualified to perform this test. ASSAY INFORMATION: Real Time RT-PCR ID Date Data Source [id number] 05/18/2020 12:00:00 AM EDT [facility] Name Value Range Interpretation Code Description Data Luz rce(s) Supporting Document(s) SARS-CoV-2 (COVID-19) RNA [Presence] in Respiratory specimen by TEO with probe detection Not Detected [facility] This lab was ordered by [facility] and reported by [employer] ID Date Data Source [id number] 04/10/2020 12:00:00 AM EST [facility] Nuzhat Langley MD Patient Name: MYAH [id number] [facility] 1940[facility] [address] Date of Exam: 04/10/2020#: Fax: [phone] EXAM: LUMBSACRAL SPINE (2 OR 3 VIEWS) XRAYCLINICAL INFORMATION: Chronic pain.Three AP and lateral views.There is no fracture or dislocation. There is normal lumbar lordosis andalignment. There is mild diffuse spurring. The disc spaces are relativelywell preserved, with only slight narrowing at L2- 3. There is sclerosis andspurring at the posterior facet joints, particularly at L5-S1. There ismild curvature toward the left. The posterior elements are intact.IMPRESSION:Diffuse degenerative changes as discussed above with no fracture ordislocation.ADELFO Garcia/Kelsey you for referring MYAH DEAL to our office. Electronically Signed - CATALINA GOYAL MD 04/10/20 19:26 Name Value Range Interpretation Code Description Data Luz rce(s) Supporting Document(s) ID Date Data Source [id number] 04/10/2020 12:00:00 AM [facility] Nuzhat Langley MD Patient Name: MYAH [id number] Date of : 1940[place] [address] Date of Exam: 04/10/2020#: Fax: [phone] EXAM: KNEE LEFT (COMPLETE) X-RAYCLINICAL INFORMATION: Chronic knee pain.Five views.There is no acute fracture or dislocation. There is moderate medial jointspace narrowing with subchondral sclerosis and spurring. There is mildspurring of the superior pole of the patella and there is mildpatellofemoral compartment narrowing. There is no radiographic evidence ofa significant joint effusion.IMPRESSION:Moderate degenerative changes as discussed above.ADELFO Garcia/Kelsey bernal for referring MYAH DEAL to our office. Electronically Signed - CATALINA GOYAL MD 04/10/20 19:26 Name Value Range Interpretation Code Description Data Luz rce(s) Supporting Document(s) ID Date Data Source [id number] 04/06/2020 07:29:00 PM EST [facility] ([facility] Name Value Range Interpretation Code Description Data Luz rce(s) Supporting Document(s) Appearance, Urine RFX Laboratory test result [facility] ([facility] Color, Urine RFX Laboratory test result [facility] ([facility] PH,Urine RFX 6.0 units 5.0-9.0 [facility] ([facility] Specific [employer] Ur Auto RFX 1.030 1.002-1.035 [facility] ([facility] Protein, Urine Auto RFX Laboratory test result [facility] ([facility] Glucose, Urine (Ua) Auto RFX Laboratory test result [facility] ([facility] Ketone, Urine Auto RFX Laboratory test result [facility] ([facility] Bilirubin, Urine Auto RFX Laboratory test result [facility] ([facility] Nitrite, Urine Auto RFX Laboratory test result [facility] ([facility] Urobilinogen, Urine Auto RFX 2.0 mg/dL 0.0-2.0 [facility] ([facility] Leukocyte Esterase Ur Auto RFX Laboratory test result [facility] ([facility] Blood, Urine Blood RFX Laboratory test result [facility] ([facility] WBC, Urine Auto RFX 1 /HPF 0-3 [facility] (Cullen [facility] RBC, Urine Auto RFX 1 /HPF 0-3 [facility] ([facility] Bacteria, Urine Auto RFX Laboratory test result [facility] ([facility] Mucus, Urine RFX Laboratory test result [facility] ([facility] Squam Epithelial Cell Ur Aurfx 2 /HPF 0-6 [facility] ([facility] Hyaline Cast, Urine Auto RFX 0 /LPF 0-1 [facility] ([facility] ID Date Data Source [id number] 04/06/2020 05:47:00 PM EST [facility] ([facility] Name Value Range Interpretation Code Description Data Luz rce(s) Supporting Document(s) Laboratory test finding (navigational concept) 32.0 % 38.0-51.0 [facility] ([facility] Laboratory test finding (navigational concept) 107 mg/dL 70-105 [facility] ([facility] Laboratory test finding (navigational concept) 139 meq/L 136-145 [facility] ([facility] Laboratory test finding (navigational concept) 3.9 meq/L 3.5-5.1 [facility] ([facility] Laboratory test finding (navigational concept) 4.7 mg/dL 4.5-5.3 [facility] ([facility] Laboratory test finding (navigational concept) 31.0 MM/L 23.0-27.0 [facility] ([facility] Laboratory test finding (navigational concept) 100 meq/L 98-109 [facility] ([facility] Laboratory test finding (navigational concept) 17 mg/dL 8-26 [facility] ([facility] Laboratory test finding (navigational concept) 1.3 mg/dL 0.6-1.3 [facility] ([facility] ID Date Data Source [id number] 04/06/2020 05:27:00 PM EST [facility] ([facility] Name Value Range Interpretation Code Description Data Luz rce(s) Supporting Document(s) Erythrocyte sedimentation rate by 2H Westergren method 35 mm/hr 0-3 0 [facility] ([facility] ID Date Data Source [id number] 04/06/2020 05:27:00 PM EST [facility] ([facility] Name Value Range Interpretation Code Description Data Luz rce(s) Supporting Document(s) White Blood Count 8.6 10 4.0-10.0 [facility] ([facility] Red Blood Count 3.57 10 4.00-5.40 [facility] ([facility] Hemoglobin 10.4 g/dL 12.0-15.5 [facility] ([facility] Mean Corpuscular Volume 93.6 fl 80.0-96.0 M [facility] ([facility] Hematocrit 33.4 % 36.0-47.0 [facility] ([facility]ings [facility] Mean Corpuscular Hemoglobin 29.1 pg 27.0-33.0 [facility] ([facility] Mean Corpuscular HGB Conc 31.1 g/dL 32.0-36.5 [facility] ([facility] Red Cell Distribution Width 16.3 % 11.5-14.5 [facility] ([facility] Platelet Count, Automated 168 10 150-450 [facility] ([facility] Neutrophils % 80.3 % 36.0-66.0 [facility] ([facility] [place] % 5.7 % 2.0-8.0 [facility] ([facility] Lymph % 11.5 % 24.0-44.0 [facility] ([facility] Eos % 1.6 % 0.0-3.0 [facility] ([facility] Baso % 0.3 % 0.0-1.0 [facility] ([facility] Immature Granulocyte % 0.6 % 0-3.0 [facility] ([facility] Nucleated Red Blood Cell % 0.0 % 0-0 [facility] ([facility] Neutrophils # 6.9 10 1.5-8.5 [facility] ([facility] Lymph # 1.0 10 1.5-5.0 [facility] ([facility] [place] # 0.5 10 0.0-0.8 [facility] ([facility] Eos # 0.1 10 0.0-0.5 [facility] ([facility] Baso # 0.0 10 0.0-0.2 [facility] ([facility] ID Date Data Source [id number] 04/06/2020 05:27:00 PM EST [facility] ([facility] Name Value Range Interpretation Code Description Data Luz rce(s) Supporting Document(s) C reactive protein [Mass/volume] in Serum or Plasma by High sensitivity method 1.31 mg/dL 0.00-0.30 [facility] ([facility] ID Date Data Source [id number] 03/07/2020 11:43:00 PM EST [facility] ([facility] Name Value Range Interpretation Code Description Data Luz rce(s) Supporting Document(s) ABG Partial Pressure Co2 45.7 mmHg 35.0-45.0 [facility] ([facility] ABG pH (Arterial) 7.491 units 7.350-7.450 [facility] ([facility] ABG Partial Pressure O2 92.4 mmHg 75.0-100.0 M [facility] ([facility] ABG Total Co2 35.5 meq/L 23.0-31.0 [facility] ([facility] ABG Hco3 34.1 meq/L 22.0-26.0 [facility] ([facility] ABG Base Excess 9.7 [facility] ([facility] ABG Standard Hco3 33.4 meq/L 22.0-26.0 [facility] ([facility] ABG O2 Saturation 97.2 % 95.0-99.0 [facility] ([facility] ID Date Data Source [id number] 03/07/2020 09:42:00 PM EST [facility] ([facility] Name Value Range Interpretation Code Description Data Luz e(s) Supporting Document(s) Respiratory Panel Laboratory test result [...] - SARS-CoV-2 (COVID19) ID Date Data Source [id number] 03/07/2020 09:42:00 PM EST [facility] Name Value Range Interpretation Code Description Data Luz rce(s) Supporting Document(s) SARS-CoV-2 (COVID 19) NEGATIVE - SARS-CoV-2 (COVID19) [facility] This lab was ordered by [facility] a nd reported by [facility]. ID Date Data Source [id number] 01/31/2020 01:53:00 PM EST [facility] (Nuzhat Langley [...] [facility] ID Date Data Source [id number] 01/31/2020 01:53:00 PM EST [facility] ([facility] Name Value Range Interpretation Code Description Data Luz rce(s) Supporting Document(s) Natriuretic peptide.B prohormone N-Terminal [Mass/volu me] in Serum or Plasma 226 pg/mL [facility] ([facility] ID Date Data Source [id number] 01/31/2020 01:53:00 PM EST [facility] ([facility] Name Value Range Interpretation Code Description Data Luz rce(s) Supporting Document(s) Glucose, Fasting 125 mg/dL 70-100 [facility] ([facility] Blood Urea Nitrogen 30 mg/dL 7-18 [facility] ([facility] Glomerular Filtration Rate 36.3 [facility] ([facility] <content>Units are mL/min/1.73 m2</content>
<content></content>
<content>Chronic Kidney Disease Staging per NKF:</content>
<content></content>
<content>Stage I & II GFR >=60 Normal to Mildly Decreased</content>
<content>Stage III GFR 30- 59 Moderately Decreased</content>
<content>Stage IV GFR 15-29 Severely Decreased</content>
<content>Stage V GFR <15 Very Little GFR Left</content>
<content>ESRD GFR <15 on DIRECTORY ASSISTANCE OPERATOR</content>
<content></content> Creatinine For GFR 1.48 mg/dL 0.55-1.30 [...] [facility] ID Date Data Source [id number] 01/31/2020 01:53:00 PM EST [facility] ([facility] Name Value Range Interpretation Code Description Data Luz rce(s) Supporting Document(s) Ast/Sgot 4 U/L 7-37 [facility] [...] [facility] ID Date Data Source [id number] 01/31/2020 01:53:00 PM EST [facility] ([facility]uzhat Langley [...] <content>Troponin I Reference Interval f or Siemens Mcdavid LOCI:</content>
<content></content>
<content>99th Percentile= 0.00-0.045 ng/ml</content>
<content></content>
<content>Risk Stratification:</content>
<content><= 0.10 ng/ml Decreased Risk for Adverse Clinical</content>
<content>Events.</content>
<content>0.10-1.50 ng/ml Increased Risk for Adverse Clinical</content>
<content>Events. Evaluation of additional</content>
<content>criterion and/or repeat testing in 2-6</content>
<content>hours is suggested to rule out myocardial</content>
<content>damage.</content>
<content>>= 1.50 ng/ml Indicative of Myocardial Injury.</content>
<content></content> ID Date Data Source [id number] 01/31/2020 01:53:00 PM EST [facility] ([facility] Name Value Range Interpretation Code Description Data Luz rce(s) Supporting Document(s) White Blood Count 9.7 10 4.0-10.0 [facility] ([facility] Red Blood Count 3.88 10 4.00-5.40 [facility] ([facility] Hemoglobin 10.8 g/dL 12.0-15.5 [facility] ([facility] Hematocrit 35.2 % 36.0-47.0 [facility] [...] [facility] ([facility] Neutrophils % 80.7 % 36.0-66.0 [facility] ([facility] Lymph % 11.0 % 24.0-44.0 [facility] ([facility] [place] % 6.1 % 0.0-5.0 [facility] ([facility] Eos % 0.9 % 0.0-3.0 [facility] ([facility] Baso % 0.4 % 0.0-1.0 [facility] ([facility] Nucleated Red Blood Cell % 0.0 % 0-0 [facility] ([facility] Immature Granulocyte % 0.9 % 0-3.0 [facility] ([facility] Lymph # 1.1 10 1.5-5.0 [facility] ([facility] Neutrophils # 7.8 10 1.5-8.5 [facility] ([facility] Eos # 0.1 10 0.0-0.5 [facility] ([facility] [place] # 0.6 10 0.0-0.8 [facility] ([facility] Baso # 0.0 10 0.0-0.2 [facility] ([facility] ID Date Data Source [id number] 01/24/2020 12:25:00 AM EST [facility] (Nuzhat Langley [...] 5 > 4</content>
<content></content> CK-MB Value Mass 1.2 ng/mL [facility] ([facility] Troponin I Laboratory test result [facility] ([facility] <content>Troponin I Reference Interval f or Siemens Mcdavid LOCI:</content>
<content></content>
<content>99th Percentile= 0.00-0.045 ng/ml</content>
<content></content>
<content>Risk Stratification:</content>
<content><= 0.10 ng/ml Decreased Risk for Adverse Clinical</content>
<content>Events.</content>
<content>0.10-1.50 ng/ml Increased Risk for Adverse Clinical</content>
<content>Events. Evaluation of additional</content>
<content>criterion and/or repeat testing in 2-6</content>
<content>hours is suggested to rule out myocardial</content>
<content>damage.</content>
<content>>= 1.50 ng/ml Indicative of Myocardial Injury.</content>
<content></content> ID Date Data Source [id number] 01/23/2020 09:51:00 PM EST [facility] ([facility] Name Value Range Interpretation Code Description Data Luz rce(s) Supporting Document(s) Blood Urea Nitrogen 24 mg/dL 7-18 [facility] [...] Little GFR Left</content>
<content>ESRD GFR <15 on DIRECTORY ASSISTANCE OPERATOR</content>
<content></content> Creatinine For GFR 1.61 mg/dL 0.55-1.30 [facility] ([facility] Sodium Level 139 meq/L 136-145 [facility] Chloride Level 97 meq/L 98-107 [facility] ([facility] Potassium Serum 3.5 meq/L 3.5-5.1 [facility] ([facility] Testing was performed on an icteric spec imen. This specimen has an elevated potassium level but there is NO visible hemolysis noted. Anion Gap 7 meq/L 8-16 [facility] ([facility] Calcium Level 9.2 mg/dL 8.8-10.2 [facility] ([facility] Carbon Dioxide Level 35 meq/L 21-32 [facility] ([facility] ID Date Data Source [id number] 01/23/2020 09:51:00 PM EST [facility] ([facility] [...] [facility] ID Date Data Source [id number] 01/23/2020 09:51:00 PM EST [facility] ([facility] Name Value Range Interpretation Code Description Data Luz rce(s) Supporting Document(s) CK-MB Value Mass Laboratory test result [facility] ([facility] CPK Creatine Phosphokinase 43 U/L 26-192 [facility] ([facility] Troponin I Laboratory test result [facility] ([facility] <content>Troponin I Reference Interval f or Siemens Mcdavid LOCI:</content>
<content></content>
<content>99th Percentile= 0.00-0.045 ng/ml</content>
<content></content>
<content>Risk Stratification:</content>
<content><= 0.10 ng/ml Decreased Risk for Adverse Clinical</content>
<content>Events.</content>
<content>0.10-1.50 ng/ml Increased Risk for Adverse Clinical</content>
<content>Events. Evaluation of additional</content>
<content>criterion and/or repeat testing in 2-6</content>
<content>hours is suggested to rule out myocardial</content>
<content>damage.</content>
<content>>= 1.50 ng/ml Indicative of Myocardial Injury.</content>
<content></content> MB/CK Relative Index 2.33 [facility] ([facility] <content>DIAGNOSIS CRITERIA</content>
<content>MMB ng/ml Relative Index (RI)</content>
<content>NON-AMI < or = 5 N/A</content>
<content>GOYAL ZONE > 5 < or = 4</content>
<content>AMI > 5 > 4</content>
<content></content> ID Date Data Source [id number] 01/23/2020 09:51:00 PM EST [facility] ([facility] [...] MYOCARDIAL INFARCTION 2.5-3.5 ID Date Data Source [id number] 01/23/2020 09:51:00 PM EST [facility] ([facility] [...] ([facility] Mean Corpuscular Hemoglobin 28.1 pg 27.0-33.0 [facility] ([facility] Mean Corpuscular HGB Conc 30.9 g/dL 32.0-36.5 [facility] ([facility] Neutrophils % 85.6 % 36.0-66.0 [facility] ([facility] Platelet Count, Automated 162 10 150-450 [facility] ([facility] Red Cell Distribution Width 16.8 % 11.5-14.5 [facility] ([facility] [place] % 5.0 % 0.0-5.0 [facility] ([facility] Lymph % 8.0 % 24.0-44.0 [facility] ([facility] Immature Granulocyte % 0.8 % 0-3.0 [facility] ([facility] Eos % 0.4 % 0.0-3.0 [facility] ([facility] Baso % 0.2 % 0.0-1.0 [facility] ([facility] Nucleated Red Blood Cell % 0.0 % 0-0 [facility] ([facility] Neutrophils # 8.9 10 1.5-8.5 [facility] ([facility] Lymph # 0.8 10 1.5-5.0 [facility] ([facility] Eos # 0.0 10 0.0-0.5 [facility] ([facility] A[facility] Choco [facility]ams[facility] [place] # 0.5 10 0.0-0.8 [facility] ([facility] Baso # 0.0 10 0.0-0.2 [facility] ([facility] ID Date Data Source [id number] 01/23/2020 09:51:00 PM EST [facility] ([facility] Name Value Range Interpretation Code Description Data Luz rce(s) Supporting Document(s) Natriuretic peptide.B prohormone N-Terminal [Mass/volu me] in Serum or Plasma 519 pg/mL [facility] ([facility] ID Date Data Source [id number] 01/19/2020 02:58:00 PM EST [facility] ([facility] Name Value Range Interpretation Code Description Data Luz e(s) Supporting Document(s) Hemoglobin A1c/Hemoglobin.total in Blood 6.5 % [facility] ([facility] <content>REFERENCE RANGES:</content><br/ ><content></content>
<content><=5.6% NORMAL</content>
<content>5.7-6.4% SUGGESTS IMPAIRED GLUCOSE METABOLISM/PREDIABETIC</content>
<content>>= 6.5% ABNORMAL</content>
<content></content> Estimated Average Glucose 140 mg/dL 60-110 [facility] ([facility] ID Date Data Source [id number] 01/19/2020 02:58:00 PM EST [facility] ([facility] Name Value Range Interpretation Code Description Data Luz e(s) Supporting Document(s) Glucose, Fasting 139 mg/dL 70-100 [facility] ([facility] Blood Urea Nitrogen 21 mg/dL 7-18 [facility] ([facility]na A[facility] Shivam[facility] Creatinine For GFR 1.54 mg/dL [...] Little GFR Left</content>
<content>ESRD GFR <15 on DIRECTORY ASSISTANCE OPERATOR</content>
<content></content> Carbon Dioxide Level 37 meq/L 21-32 [facility] ([facility] Potassium Serum 3.2 meq/L 3.5-5.1 [facility] ([facility] Chloride Level 95 meq/L 98-107 [facility] ([facility] Calcium Level 8.9 mg/dL 8.8-10.2 [facility] ([facility] Ast/Sgot Laboratory test result 7-37 [facility] ([facility] Anion Gap 6 meq/L 8-16 [facility] ([facility] Alt/SGPT 9 U/L 12-78 [facility] ([facility] Bilirubin,Total 1.0 mg/dL 0.2-1.0 [facility] ([facility] Alkaline Phosphatase 59 U/L 45-117 [facility] ([facility] Total Protein 5.7 GM/DL 6.4-8.2 [facility] ([facility] Albumin 3.3 GM/DL 3.2-5.2 [facility] ([facility] Albumin/Globulin Ratio 1.4 1.2-2.2 [facility] ([facility] ID Date Data Source [id number] 12/02/2019 07:46:00 PM EDT [facility] ([facility]y [...] pathogens. DISCLAIMER: Testing was performed using the [employer] SARS-CoV-2 test. This test was developed and its performance characteristics determined by [facility]. This test has not been FDA cleared [...] or revoked sooner. ID Date Data Source [id number] 12/02/2019 07:06:00 PM EDT [facility] ([facility] Name Value Range Interpretation Code Description Data Luz rce(s) Supporting Document(s) Natriuretic peptide.B prohormone N-Terminal [Mass/volu me] in Serum or Plasma 377 pg/mL [facility] ([facility] Phenobarbital [Mass/volume] in Serum or Plasma 2.1 UG/ML 15.0-40.0 [facility] ([facility] Lactate [Mass/volume] in Serum or Plasma 1.4 mmol/L 0.4-2.0 [facility] ([facility] Y/N query for Sepsis Lactate Rule: Y Thyrotropin [Units/volume] in Serum or Plasma 1.970 uIU/ML 0.358-3.74 0 [facility] ([facility] ID Date Data Source [id number] 12/02/2019 07:06:00 PM EDT [facility] ([facility] Langley [...] 0.0-0.2 [facility] ([facility] Albumin 3.2 GM/DL 3.2-5.2 [facility] ([facility] Total Protein 5.6 GM/DL 6.4-8.2 [facility] ([facility] Albumin/Globulin Ratio 1.3 1.2-2.2 [facility] ([facility] ID Date Data Source [id number] 12/02/2019 07:06:00 PM EDT [facility] ([facility] Langley [...] MYOCARDIAL INFARCTION 2.5-3.5 ID Date Data Source [id number] 12/02/2019 07:06:00 PM EDT [facility] ([facility] Name Value Range Interpretation Code Description Data Luz rce(s) Supporting Document(s) Red Blood Count 3.67 10 4.00-5.40 [facility] ([facility] White Blood Count 8.8 10 4.0-10.0 [facility] ([facility] Hemoglobin 10.0 g/dL 12.0-15.5 [facility] ([facility] Hematocrit 32.9 % 36.0-47.0 [facility] ([facility] Mean Corpuscular Hemoglobin 27.2 pg 27.0-33.0 [facility] ([facility] Mean Corpuscular Volume 89.6 fl [...] % 24.0-44.0 [facility] ([facility] [place] % 7.1 % 0.0-5.0 [facility] ([facility] Eos % 1.9 % 0.0-3.0 [facility] ([facility] Baso % 0.5 % 0.0-1.0 [facility] ([facility] Nucleated Red Blood Cell % 0.0 % 0-0 [facility] ([facility] Immature Granulocyte % 0.6 % 0-3.0 [facility] ([facility] Lymph # 1.0 10 1.5-5.0 [facility] ([facility] Neutrophils # 6.9 10 1.5-8.5 [facility] ([facility] Eos # 0.2 10 0.0-0.5 [facility] ([facility] [place] # 0.6 10 0.0-0.8 [facility] ([facility] Baso # 0.0 10 0.0-0.2 [facility] ([facility] ID Date Data Source [id number] 12/02/2019 07:06:00 PM EDT [facility] ([facility] Name Value Range Interpretation Code Description Data Luz rce(s) Supporting Document(s) Venous PH 7.482 units 7.330-7.430 [facility] ([facility] Venous Partial Pressure Co2 37.5 mmHg 38.0-50.0 [facility] ([facility] Venous Total Co2 28.6 meq/L 24.0-28.0 [facility] ( [facility] Venous Partial Pressure O2 135.7 mmHg 30.0-50.0 [facility] ([facility] Venous Hco3 27.4 meq/L 23.0-27.0 [facility] ([facility] Venous Base Excess 3.9 [facility] ([facility] Venous Standard Hco3 28.0 meq/L [facility] ( [facility] Venous O2 Saturation 98.9 % 60.0-80.0 [facility] ([facility] ID Date Data Source [id number] 12/02/2019 06:37:00 PM EDT [facility] ([facility] Name Value Range Interpretation Code Description Data Luz rce(s) Supporting Document(s) Troponin I.cardiac [Mass/volume] in Serum or Plasma 0.00 ng/mL 0.00-0 .08 [facility] ([facility] ID Date Data Source [id number] 12/02/2019 06:35:00 PM EDT [facility] ([facility] Langley [...] [facility] ID Date Data Source [id number] 11/24/2019 01:17:00 PM EDT [facility] ([facility] Langley [...] ([facility] ID Date Data Source [id number] 11/24/2019 01:17:00 PM EDT [facility] ([facility] Name Value Range Interpretation Code Description Data Luz rce(s) Supporting Document(s) Glucose, Fasting 139 mg/dL 70-100 [facility] ([facility] Creatinine For GFR 1.27 mg/dL 0.55-1.30 [facility] [...] Little GFR Left</content>
<content>ESRD GFR <15 on DIRECTORY ASSISTANCE OPERATOR</content>
<content></content> Potassium Serum 4.0 meq/L 3.5-5.1 [facility] ([facility]hat [...] [facility] ID Date Data Source [id number] 11/24/2019 01:17:00 PM EDT [facility] ([facility] Name Value Range Interpretation Code Description Data Luz rce(s) Supporting Document(s) Alkaline Phosphatase 56 U/L 45-117 [facility] ([facility] Alt/SGPT 12 U/L 12-78 [facility] ([facility] Ast/Sgot 7 U/L 7-37 [facility] ([facility] Bilirubin,Total 0.9 mg/dL 0.2-1.0 [facility] ([facility] Bilirubin,Direct 0.3 mg/dL 0.0-0.2 [facility] ([facility] Total Protein 5.5 GM/DL 6.4-8.2 [facility] ([facility] Albumin 3.2 GM/DL 3.2-5.2 [facility] ([facility] Albumin/Globulin Ratio 1.4 1.2-2.2 [facility] ([facility] ID Date Data Source [id number] 11/24/2019 01:17:00 PM EDT [facility] ([facility] Name Value Range Interpretation Code Description Data Luz rce(s) Supporting Document(s) CK-MB Value Mass 1.2 ng/mL [facility] ([facility] CPK Creatine Phosphokinase 26 U/L 26-192 [facility] ([facility] Troponin I Laboratory test result [facility] ([facility] <content>Troponin I Reference Interval f or Siemens Mcdavid LOCI:</content>
<content></content>
<content>99th Percentile= 0.00-0.045 ng/ml</content>
<content></content>
[...] > 4</content>
<content></content> ID Date Data Source [id number] 11/24/2019 01:17:00 PM EDT [facility] ([facility] Name Value Range Interpretation Code Description Data Luz rce(s) Supporting Document(s) Erythrocyte sedimentation rate by 2H Westergren method 11 mm/hr 0-3 0 [facility] ([facility] ID Date Data Source [id number] 11/24/2019 01:17:00 PM EDT [facility] ([facility] Name Value Range Interpretation Code Description [facility]) Red Blood Count 3.61 10 4.00-5.40 [facility] ([facility] White Blood Count 8.2 10 4.0-10.0 [facility] ([facility] Hemoglobin 9.7 g/dL 12.0-15.5 [...] % 0.0-3.0 [facility] ([facility] [place] % 5.6 % 0.0-5.0 [facility] ([facility] Immature Granulocyte % 0.6 % 0-3.0 [facility] ([facility] Baso % 0.5 % 0.0-1.0 [facility] ([facility] Neutrophils # 6.6 10 1.5-8.5 [facility] ([facility] Nucleated Red Blood Cell % 0.0 % 0-0 [facility] ([facility] Lymph # 0.9 10 1.5-5.0 [facility] ([facility] [place] # 0.5 10 0.0-0.8 [facility] ([facility] Baso # 0.0 10 0.0-0.2 [facility] ([facility] Eos # 0.2 10 0.0-0.5 [facility] ([facility] Procedure Social History Code Duration Value Status Description Data Source(s ) Smoking 10/11/2020 12:00:00 AM EDT - 08/15/2013 12:00:00 AM EDT Patient is a former smoker completed Patient is a former smoker [facility] Smoking 06/21/2020 12:00:00 AM EDT Patient is a former smoker completed Patient is a former smoker [facility] ([facility], ) Alcohol intake 06/07/2020 12:00:00 AM EDT No completed [facility] Cigarette pack-years 06/07/2020 12:00:00 AM EDT UNK completed [facility] Cigarettes smoked current (pack per day) - Reported 06/08/19 12:00:00 AM EDT UNK completed [facility] Smoking 06/07/2020 12:00:00 AM EDT Former smoker completed Former smoker [facility] Alcohol intake 01/19/2020 12:00:00 AM EST No completed [facility] Cigarette pack-years 01/19/2020 12:00:00 AM EST UNK completed [facility] Cigarettes smoked current (pack per day) - Reported 01/19/20 20 12:00:00 AM EST UNK completed [facility] Smoking 01/19/2020 12:00:00 AM EST Former smoker completed Former smoker [facility] Vital Signs ID Date Data Source UNK Name Value Range Interpretation Code Description Data Source(s) Heart rate 75 /min 75 /min [facility] ([facility] Respiratory rate 25 /min 25 /min [facility] ( [facility] Systolic blood pressure 87 mm[Hg] 87 mm[Hg] M [facility] ([facility] Diastolic blood pressure 42 mm[Hg] 42 mm[Hg] [facility] ([facility] Body temperature 95.7 [degF] 95.7 [degF] [facility] ([facility] Body height 61.5 [in_i] 61.5 [in_i] [facility] ([facility] 5'1.50" Oxygen saturation in Arterial blood by Pulse oximetry 95 % 95 % [facility] ([facility] [place] body weight 105 [lb_av] 105 [lb_av] [facility] ([facility] Body temperature 96.9 [degF] 96.9 [degF] [facility] ([facility]) Body height 61.5 [in_i] 61.5 [in_i] [facility] ([facility]) 5'1.50" Body weight 228.00 [lb_av] 228.00 [lb_av] [facility] ([facility]) Body mass index (BMI) [Ratio] 42.4 kg/m2 42.4 k g/m2 [facility] ([facility]) Systolic blood pressure 124 mm[Hg] 124 mm[Hg] M [facility] ([facility]) Diastolic blood pressure 62 mm[Hg] 62 mm[Hg] [facility] ([facility]) Heart rate 72 /min 72 /min [facility] ([facility]) Oxygen saturation in Arterial blood by Pulse oximetry 96 % 96 % [facility] ([facility]) Body height 62 [in_i] 62 [in_i] [facility] ([facility]) 5'2" Body weight 227.00 [lb_av] 227.00 [lb_av] [facility] ([facility]) Body mass index (BMI) [Ratio] 41.5 kg/m2 41.5 k g/m2 [facility] ([facility]) [place] body weight 110 [lb_av] 110 [lb_av] [facility] ([facility]) Body weight 102.967 kg 102.967 kg [facility] ([facility]) Body surface area Derived from formula 2.02 m2 2.02 m2 [facility] ([facility]) Body temperature 97.3 [degF] 97.3 [degF] [facility] Diastolic blood pressure 57 mm[Hg] 57 mm[Hg] [facility] Heart rate 73 /min 73 /min [facility] ([facility] Respiratory rate 20 /min 20 /min [facility] ( [facility] Body height 61.5 [in_i] 61.5 [in_i] [facility] ([facility] 5'1.50" Body weight 235.12 [lb_av] 235.12 [lb_av] [facility] ([facility] Oxygen saturation in Arterial blood by Pulse oximetry 96 % 96 % [facility] [place] body weight 105 [lb_av] 105 [lb_av] [facility] ([facility] Body mass index (BMI) [Ratio] 43.7 kg/m2 43.7 k g/m2 [facility] ([facility] Systolic blood pressure 107 mm[Hg] 107 mm[Hg] M [facility] ([facility] Heart rate 100 /min 100 /min [facility] ([facility] Body temperature 96.7 [degF] 96.7 [degF] [facility] ([facility] [place] body weight 105 [lb_av] 105 [lb_av] [facility] ([facility] Body mass index (BMI) [Ratio] 42.8 kg/m2 42.8 k g/m2 [facility] ([facility] Body weight 230.12 [lb_av] 230.12 [lb_av] [facility] ([facility] Oxygen saturation in Arterial blood by Pulse oximetry 98 % 98 % [facility] ([facility] Systolic blood pressure 152 mm[Hg] 152 mm[Hg] M [facility] ([facility] Diastolic blood pressure 78 mm[Hg] 78 mm[Hg] [facility] ([facility] Respiratory rate 20 /min 20 /min [facility] ( [facility] Body height 61.5 [in_i] 61.5 [in_i] [facility] ([facility] 5'1.50" Diastolic blood pressure 77 mm[Hg] 77 mm[Hg] [facility] ([facility], ) Systolic blood pressure 147 mm[Hg] 147 mm[Hg] M [facility] ([facility], ) Body temperature 97.1 [degF] 97.1 [degF] [facility] ([facility]) [place] body weight 110 [lb_av] 110 [lb_av] [facility] T ([facility]) Heart rate 70 /min 70 /min [facility] Body mass index (BMI) [Ratio] 43.9 kg/m2 43.9 k g/m2 [facility] ([facility]) Body weight 108.864 kg 108.864 kg [facility] Oxygen saturation in Arterial blood by Pulse oximetry 93 % 93 % [facility] Respiratory rate 18 /min 18 /min [facility] Body height 62 [in_i] 62 [in_i] [facility] ([facility]) 5'2" Body weight 240.00 [lb_av] 240.00 [lb_av] [facility] T ([facility]) Body surface area Derived from formula 2.07 m2 2.07 m2 [facility] ([facility]) Respiratory rate 20 /min 20 /min [facility] ( [facility]) Oxygen saturation in Arterial blood by Pulse oximetry 100 % 100 % [facility] ([facility]) Body height 62 [in_i] 62 [in_i] [facility] ([facility]) 5'2" Body temperature 97.8 [degF] 97.8 [degF] [facility] Body weight 240.00 [lb_av] 240.00 [lb_av] [facility] ([facility]) Body mass index (BMI) [Ratio] 43.9 kg/m2 43.9 k g/m2 [facility] ([facility]) [place] body weight 110 [lb_av] 110 [lb_av] [facility] ([facility]) Body weight 108.864 kg 108.864 kg [facility] Body surface area Derived from formula 2.07 m2 2.07 m2 [facility] ([facility]) Heart rate 85 /min 85 /min [facility] ([facility]) Systolic blood pressure 126 mm[Hg] 126 mm[Hg] [facility] ([facility]) Diastolic blood pressure 65 mm[Hg] 65 mm[Hg] [facility] ([facility]) Systolic blood pressure 120 mm[Hg] 120 mm[Hg] [facility] Diastolic blood pressure 60 mm[Hg] 60 mm[Hg] [facility] Heart rate 93 /min 93 /min [facility] Body height 157.5 cm 157.5 cm [facility] Body weight 107.502 kg 107.502 kg [facility] Body mass index (BMI) [Ratio] 43.35 kg/m2 43.35 kg/m2 [facility] Oxygen saturation in Arterial blood by Pulse oximetry 93 % 93 % [facility] Heart rate 97 /min 97 /min [facility] ([facility], ) Systolic blood pressure 130 mm[Hg] 130 mm[Hg] [facility] ([facility], ) Diastolic blood pressure 70 mm[Hg] 70 mm[Hg] [facility] ([facility]) Oxygen saturation in Arterial blood by Pulse oximetry 94 % 94 % [facility] ([facility]) Body height 62 [in_i] 62 [in_i] [facility] ([facility]) 5'2" Body weight 240.00 [lb_av] 240.00 [lb_av] [facility] Body mass index (BMI) [Ratio] 43.9 kg/m2 43.9 k g/m2 [facility] ([facility]) [place] body weight 110 [lb_av] 110 [lb_av] [facility] ([facility]) Body weight 108.864 kg 108.864 kg [facility] ([facility]) Body surface area Derived from formula 2.07 m2 2.07 m2 [facility] ([facility]) Heart rate 74 /min 74 /min [facility] ([facility] Systolic blood pressure 119 mm[Hg] 119 mm[Hg] [facility] ([facility] Diastolic blood pressure 61 mm[Hg] 61 mm[Hg] [facility] ([facility] Body temperature 97.3 [degF] 97.3 [degF] [facility] ([facility] Respiratory rate 20 /min 20 /min [facility] ( [facility] Body height 61.5 [in_i] 61.5 [in_i] [facility] ([facility] 5'1.50" Oxygen saturation in Arterial blood by Pulse oximetry 95 % 95 % [facility] ([facility] [place] body weight 105 [lb_av] 105 [lb_av] [facility] ([facility] Systolic blood pressure 137 mm[Hg] 137 mm[Hg] [facility] ([facility] Body weight 247.38 [lb_av] 247.38 [lb_av] [facility] ([facility] [place] body weight 105 [lb_av] 105 [lb_av] [facility] ([facility] Oxygen saturation in Arterial blood by Pulse oximetry 98 % 98 % [facility] ([facility] Body mass index (BMI) [Ratio] 46.0 kg/m2 46.0 k g/m2 [facility] ([facility] Diastolic blood pressure 62 mm[Hg] 62 mm[Hg] [facility] ([facility] Heart rate 82 /min 82 /min [facility] ([facility] Body temperature 97.1 [degF] 97.1 [degF] [facility] ([facility] Respiratory rate 16 /min 16 /min [facility] ( [facility] Body height 61.5 [in_i] 61.5 [in_i] [facility] ([facility] 5'1.50" Body weight 208.25 [lb_av] 208.25 [lb_av] [facility] ([facility] Oxygen saturation in Arterial blood by Pulse oximetry 96 % 96 % [facility] ([facility] [place] body weight 105 [lb_av] 105 [lb_av] [facility] ([facility] Body mass index (BMI) [Ratio] 38.7 kg/m2 38.7 k g/m2 [facility] ([facility] Systolic blood pressure 70 mm[Hg] 70 mm[Hg] [facility] ([facility] Diastolic blood pressure 37 mm[Hg] 37 mm[Hg] [facility] ([facility] Heart rate 76 /min 76 /min [facility] ([facility] Body temperature 97.1 [degF] 97.1 [degF] [facility] ([facility] Respiratory rate 20 /min 20 /min [facility] ( [facility] Body height 61.5 [in_i] 61.5 [in_i] [facility] ([facility] 5'1.50" Systolic blood pressure 132 mm[Hg] 132 mm[Hg] [facility] Diastolic blood pressure 60 mm[Hg] 60 mm[Hg] [facility] Heart rate 93 /min 93 /min [facility] Body height 157.5 cm 157.5 cm [facility] Body weight 113.853 kg 113.853 kg [facility] Body mass index (BMI) [Ratio] 45.91 kg/m2 45.91 kg/m2 [facility] Oxygen saturation in Arterial blood by Pulse oximetry 98 % 98 % [facility] Systolic blood pressure 108 mm[Hg] 108 mm[Hg] M [facility] ([facility] Diastolic blood pressure 77 mm[Hg] 77 mm[Hg] [facility] Heart rate 93 /min 93 /min [facility] ([facility] Body temperature 97.3 [degF] 97.3 [degF] [facility] ([facility] Respiratory rate 22 /min 22 /min [facility] ( [facility] Body height 61.5 [in_i] 61.5 [in_i] [facility] ([facility] 5'1.50" Body weight 252.50 [lb_av] 252.50 [lb_av] [facility] T ([facility] Oxygen saturation in Arterial blood by Pulse oximetry 94 % 94 % [facility] ([facility] [place] body weight 105 [lb_av] 105 [lb_av] [facility] ([facility] Body mass index (BMI) [Ratio] 46.9 kg/m2 46.9 k g/m2 [facility] ([facility] Respiratory rate 26 /min 26 /min [facility] ( [facility] Systolic blood pressure 120 mm[Hg] 120 mm[Hg] M [facility] ([facility] Diastolic blood pressure 61 mm[Hg] 61 mm[Hg] [facility] ([facility] Heart rate 100 /min 100 /min [facility] ([facility] Body temperature 96.9 [degF] 96.9 [degF] [facility] ([facility] Oxygen saturation in Arterial blood by Pulse oximetry 95 % 95 % [facility] ([facility] [place] body weight 105 [lb_av] 105 [lb_av] [facility] T ([facility] Body mass index (BMI) [Ratio] 47.1 kg/m2 47.1 k g/m2 [facility] ([facility] Body height 61.5 [in_i] 61.5 [in_i] [facility] ([facility] 5'1.50" Body weight 253.38 [lb_av] 253.38 [lb_av] [facility] T ([facility] Oxygen saturation in Arterial blood by Pulse oximetry 94 % 94 % [facility] ([facility] on room air [place] body weight 105 [lb_av] 105 [lb_av] [facility] ([facility] Body mass index (BMI) [Ratio] 46.7 kg/m2 46.7 k g/m2 [facility] ([facility] Diastolic blood pressure 53 mm[Hg] 53 mm[Hg] [facility] Heart rate 70 /min 70 /min [facility] ([facility] Body temperature 97.3 [degF] 97.3 [degF] [facility] Respiratory rate 22 /min 22 /min [facility] ( [facility] Systolic blood pressure 109 mm[Hg] 109 mm[Hg] M [facility] ([facility] Body height 61.5 [in_i] 61.5 [in_i] [facility] ([facility] 5'.50" Body weight 251.38 [lb_av] 251.38 [lb_av] [facility] T ([facility] Body mass index (BMI) [Ratio] 49.4 kg/m2 49.4 k g/m2 [facility] ([facility] Systolic blood pressure 116 mm[Hg] 116 mm[Hg] M [facility] ([facility] Diastolic blood pressure 65 mm[Hg] 65 mm[Hg] [facility] Heart rate 83 /min 83 /min [facility] ([facility] Body temperature 97.2 [degF] 97.2 [degF] [facility] Respiratory rate 24 /min 24 /min [facility] ( [facility] Body height 61.5 [in_i] 61.5 [in_i] [facility] ([facility] 5'.50" Body weight 266.00 [lb_av] 266.00 [lb_av] [facility] T ([facility] Oxygen saturation in Arterial blood by Pulse oximetry 95 % 95 % [facility] ([facility] [place] body weight 105 [lb_av] 105 [lb_av] [facility] ([facility] Heart rate 90 /min 90 /min [facility] ([facility] Body height 61.5 [in_i] 61.5 [in_i] [facility] ([facility] 5'1.50" Body weight 264.38 [lb_av] 264.38 [lb_av] [facility] T ([facility] Systolic blood pressure 138 mm[Hg] 138 mm[Hg] M [facility] ([facility] Diastolic blood pressure 78 mm[Hg] 78 mm[Hg] [facility] ([facility] Body temperature 97.3 [degF] 97.3 [degF] [facility] ([facility] Oxygen saturation in Arterial blood by Pulse oximetry 96 % 96 % [facility] Respiratory rate 17 /min 17 /min [facility] ( [facility] [place] body weight 105 [lb_av] 105 [lb_av] [facility] T ([facility] Body mass index (BMI) [Ratio] 49.1 kg/m2 49.1 k g/m2 [facility] ([facility] Patient Treatment Plan of Care Planned Activity Planned Date Details Description Data Source (s) torsemide 20 MG Oral Tablet 01/12/2020 12:00:00 AM [facility] Metformin hydrochloride 500 MG Oral Tablet 01/11/2020 12:00:00 AM E [facility] Bacitracin 0.5 UNT/MG / Neomycin 0.0035 MG/MG / Polymyxin B 10 UNT/MG Topical Ointment 12/27/2019 12:00:00 AM EST [facility] Albuterol 0.833 MG/ML / Ipratropium [place] 0.167 MG/M L Inhalant Solution 12/27/2019 12:00:00 AM EST [facility] Fluconazole 100 MG Oral Tablet 12/08/2019 12:00:00 AM EDT [facility] Prednisone 5 MG Oral Tablet 06/25/2019 12:00:00 AM EDT [facility] potassium chloride SA (K-DUR,ISHAANOR-CON) 20 MEQ tablet 020 12:00:00 AM EDT [facility] Furosemide 40 MG Oral Tablet 06/11/2019 12:00:00 AM EDT [facility] tizanidine 4 MG Oral Tablet [facility] 60 ACTUAT Fluticasone propionate 0.5 MG/ ACTUAT / salmeterol 0.05 MG/ACTUAT Dry Powder Inhaler [facility]
[2021-01-21 19:00] LABS: BASO % 0.5 % (0.0-1.0); EOS # 0.3 10^3/uL (0.0-0.5); EOS % 4.5 % (0.0-3.0); HEMATOCRIT 32.4 % (36.0-47.0); LYMPH # 1.1 10^3/uL (1.5-5.0); LYMPH % 16.1 % (24.0-44.0); MEAN CORPUSCULAR HEMOGLOBIN 28.4 pg (27.0-33.0); MEAN CORPUSCULAR HGB CONC 30.9 g/dl (32.0-36.5); MONO # 0.6 10^3/uL (0.0-0.8); MONO % 9.5 % (2.0-8.0); NEUTROPHILS # 4.6 10^3/uL (1.5-8.5); NEUTROPHILS % 69.1 % (36.0-66.0); PLATELET COUNT, AUTOMATED 119 10^3/uL (150-450); RED BLOOD COUNT 3.52 10^6/uL (4.00-5.40); WHITE BLOOD COUNT 6.7 10^3/uL (4.0-10.0)
[2021-01-21 19:37] LABS: ERYTHROCYTE SEDIMENTATION RATE 28 mm/hr (0-30)
[2021-01-21 19:44] LABS: BILIRUBIN,DIRECT 0.2 MG/DL (0.0-0.2); BILIRUBIN,TOTAL 0.7 MG/DL (0.2-1.0); C REACTIVE PROTEIN QUANTITATIV 3.23 MG/DL (0.00-0.30); CREATININE FOR GFR 1.45 MG/DL (0.55-1.30); GLOMERULAR FILTRATION RATE 37.1 (>39); POTASSIUM SERUM 4.4 MEQ/L (3.5-5.1); TOTAL PROTEIN 5.5 GM/DL (6.4-8.2)
--- OUTSIDE RECORDS SUMMARY | 2021-01-21 20:08 | CCD ---
Author Author [facility] Organization [facility] Address Unknown Phone Unavailable Care Team Providers Care Perlite Grinder Name Role Phone Monika Montano [facility], PA-C Unavailable Unavailabl e Fish Monika [facility], PA-C Un[facility], [facility] Unavailable Unavailabl e Fish Monika [facility], PA-C Unavailable Unavailabl e Fish [facility] Unavailable Unavailabl e Fish [facility] Unavailable Unavailabl e Fish [facility] Unavailable Unavailabl e Dusty [facility] Unavailable Unavailabl e Fish, [facility]ika [facility] Unavailable Unavailabl e Fish [facility] Unavailable Unavailabl e Dusty [facility] Unavailable Unavailabl e Fish, Monika [facility]hat [facility], PA-C Unavailable Unavailabl e Fish, [facility] Unavailable Unavailabl e Fish, [employer], PA-C Unavailable Unavailabl e Fish, [employer], PA-C Unavailable Unavailabl e Fish, [facility], [facility] Unavailable Unavailabl e Fish, [employer], PA-C Unavailable Unavailabl e Fish, [employer], PA-C Unavailable Unavailabl e Fish, [employer], PA-C Unavailable Unavailabl e Fish, [employer], PA-C Unavailable Unavailabl e Fish, [employer], PA-C Unavailable Unavailabl e Fish, [employer], PA-C Unavailable Unavailabl e Fish, [employer], PA-C Unavailable Unavailabl e Fish, [employer], PA-C Unavailable Unavailabl e Fish, [employer], PA-C Unavailable Unavailabl e Fish, [employer], PA-C Unavailable Unavailabl e Fish, [employer], PA-C Unavailable Unavailabl e Fish, [employer], PA-C Unavailable Unavailabl e Fish, [employer], PA-C Unavailable Unavailabl e Fish, [employer], PA-C Unavailable Unavailabl e Fish, [employer], PA-C Unavailable Unavailabl e Fish, [employer], PA-C Unavailable Unavailabl e Fish, [employer], PA-C Unavailable Unavailabl e Fish, [employer], PA-C Unavailable Unavailabl e Fish, [facility], [facility] Unavailable Unavailabl e Fish, [facility], [facility]C Unavailable Unavailabl e NAVEEN JACKSON MD [...] MD LENNY FALCON Unavailable Unavailable Pleskach, Criselda STAIN APPLICATOR Unavailable Unavailable Pleskach, Criselda STAIN APPLICATOR Unavailable Unavailable Pleskach, Criselda STAIN APPLICATOR Unavailable Unavailable Pleskach, Criselda STAIN APPLICATOR Unavailable Unavailable Pleskach, Criselda STAIN APPLICATOR Unavailable Unavailable Pleskach, Criselda STAIN APPLICATOR Unavailable Unavailable Pleskach, Criselda STAIN APPLICATOR Unavailable Unavailable Pleskach, Criselda STAIN APPLICATOR Unavailable Unavailable Pleskach, Criselda STAIN APPLICATOR Unavailable Unavailable Pleskach, Criselda STAIN APPLICATOR Unavailable Unavailable Pleskach, Criselda STAIN APPLICATOR Unavailable Unavailable Pleskach, Criselda STAIN APPLICATOR Unavailable Unavailable Pleskach, Criselda STAIN APPLICATOR Unavailable Unavailable Pleskach, Criselda STAIN APPLICATOR Unavailable Unavailable Pleskach, Criselda STAIN APPLICATOR Unavailable Unavailable Pleskach, Criselda STAIN APPLICATOR Unavailable Unavailable Pleskach, Criselda STAIN APPLICATOR Unavailable Unavailable Pleskach, Criselda STAIN APPLICATOR Unavailable Unavailable Pleskach, Criselda STAIN APPLICATOR Unavailable Unavailable Pleskach, Criselda STAIN APPLICATOR Unavailable Unavailable Pleskach, Criselda STAIN APPLICATOR Unavailable Unavailable Pleskach, Criselda STAIN APPLICATOR Unavailable Unavailable Pleskach, Criselda STAIN APPLICATOR Unavailable Unavailable Pleskach, Criselda STAIN APPLICATOR Unavailable Unavailable Pleskach, Criselda STAIN APPLICATOR Unavailable Unavailable Pleskach, Criselda STAIN APPLICATOR Unavailable Unavailable Pleskach, Criselda STAIN APPLICATOR Unavailable Unavailable Pleskach, Criselda STAIN APPLICATOR Unavailable Unavailable Pleskach, Criselda STAIN APPLICATOR Unavailable Unavailable Pleskach, Criselda STAIN APPLICATOR Unavailable Unavailable Pleskach, Criselda STAIN APPLICATOR Unavailable Unavailable Pleskach, Criselda STAIN APPLICATOR Unavailable Unavailable Pleskach, Criselda STAIN APPLICATOR Unavailable Unavailable Pleskach, Criselda STAIN APPLICATOR Unavailable Unavailable Pleskach, Criselda STAIN APPLICATOR Unavailable Unavailable Pleskach, Criselda STAIN APPLICATOR Unavailable Unavailable Pleskach, Criselda STAIN APPLICATOR Unavailable Unavailable Pleskach, Criselda STAIN APPLICATOR Unavailable Unavailable Pleskach, Criselda STAIN APPLICATOR Unavailable Unavailable Pleskach, Criselda STAIN APPLICATOR Unavailable Unavailable Pleskach, Criselda STAIN APPLICATOR Unavailable Unavailable Pleskach, Criselda STAIN APPLICATOR Unavailable Unavailable Pleskach, Criselda STAIN APPLICATOR Unavailable Unavailable Pleskach, Criselda STAIN APPLICATOR Unavailable Unavailable Km Kathleen MD Unavailable Unavailable [...] Hazel Mcfarland MD Unavailable Unavailable Vaneenenaam, Hazel Mcfaralnd MD Unavailable Unavailable Vaneenenaam, Hazel Mcfarland MD [...] Unavailable Vaneenenaam, Hazel Mcfarland MD Unavailable Unavailable NAISLMD DARYL Unavailable Unavailable Re-disclosure Warning The records [...] is protected by Article 27-F of the [facility] Public Health law. If you continue you may have access to information: Regarding HIV / AIDS; Provided by facilities licensed or operated by the [facility] Office of Mental Health; or Provided by the [facility] Office for People With Developmental Disabilities. If such information is present, then the following [facility] mandated warning applies: This information has [...] law may result in a fine or care home sentence or both. A general authorization for the release of medical or other information is NOT sufficient authorization for further disc losure. Family History Family Member Name Family Member Gender Family Member Status Date o f Status Description Data Source(s) Unknown Male Problem [facility] ([facility] Unknown Male Problem [facility] ([facility] in 1985 Unknown Unknown Problem [facility] ([facility]) Unknown Male Problem [facility] ([facility] Encounters Encounter Providers Location Date Indications Data Source(s ) Outpatient [facility] 01/15/2021 09:26:15 AM EST [facility] Outpatient Attender: Criselda Herrera [facility] Main Office 10/11/2020 0 2:00:00 PM EDT [facility] ([facility] Outpatient [facility] 10/03/2020 01:58:55 PM EDT [facility] OFFICE OUTPATIENT VISIT 15 MINUTES Attender: Hazel aguila MD Physical Therapy 08/22/2020 10:15:00 AM EDT [facility] ([facility] ) Outpatient Attender: Km Bolanos/Vipul/Alex/Chauncey ndamauri 08/15/2020 11:00:00 AM EDT [facility] ([facility] Office Visit Attender: Nuzhat QUEZADA PA-C Physical Therapy 08/08/2020 03:45:00 PM EDT [facility] ([facility]) Outpatient Attender: Nuzhat QUEZADA PA-C Physical Therapy 08/07/2020 01:30:00 PM EDT [facility] ([facility] ) Outpatient Attender: Criselda Herrera [facility] Main Office 07/31/2020 1 1:00:00 AM EDT [facility] ([facility] Outpatient Attender: Criselda Herrera [facility] Main Office 07/12/2020 0 2:00:00 PM EDT [facility] ([facility] Outpatient SJИрина-SJИрина 06/24/2020 04:06:08 PM EDT [facility] Outpatient SJP.ZAIDA-SJP.ZAIDA 06/22/2020 01:43:06 PM EDT [facility] Outpatient Attender: Km Hyman/Vipul/Alex/Rein dl 06/21/2020 01:30:00 PM EDT [facility] ([facility] Outpatient Attender: Edgar Hyman/Vipul/Alex/Re indl 06/02/2020 01:15:00 PM EDT [facility] ([facility] Outpatient Attender: NAVEEN JACKSON MD SJИрина.ZAIDA-SJP.ZAIDA 01:50:15 PM EDT - 05/26/2020 02:22:58 PM EDT [facility] Outpatient Attender: Jeffy DIANA Physical Therapy 01:00:00 PM EDT [facility] ([facility]) Outpatient Attender: Km Bolanos/Vipul/Alex/Chauncey ndl 05/02/2020 10:00:00 AM EDT [facility] ([facility] Outpatient Attender: Km Bolanos/Vipul/Alex/Chauncey ndl 04/12/2020 09:00:00 AM EST [facility] ([facility] Outpatient Attender: Criselda Herrera [facility] Main Office 04/10/2020 0 8:00:00 AM EST [facility] ([facility] Office Visit Attender: Jeffy DIANA Physical Therapy 12:00:00 PM EST [facility] ([facility]) Outpatient Attender: Criselda Herrera [facility] Main Office 03/22/2020 0 2:15:00 PM EST [facility] ([facility] Office Visit Attender: Jeffy DIANA Physical Therapy 12:45:00 PM EST [facility] ([facility] Outpatient Attender: Km Bolanos/Vipul/Alex/Chauncey ndl 02/14/2020 07:30:00 AM EST [facility] ([facility] Outpatient Attender: Criselda Herrera [facility] Main Office 01/31/2020 1 0:45:00 AM EST [facility] ([facility] Outpatient Attender: Criselda Herrera [facility] Main Office 01/19/2020 0 1:00:00 PM EST [facility] ([facility] Outpatient Attender: NAVEEN FLANAGAN.ZAIDA-SJP.ZAIDA 0 12:00:00 AM EST - 01/19/2020 04:09:59 PM EST [facility] Outpatient Attender: Criselda Herrera [facility] Main Office 01/11/2020 0 2:45:00 PM EST [facility] ([facility] Outpatient Attender: Km Bolanos/Vipul/Alex/Chauncey nd 12/21/2019 07:30:00 AM EST [facility] ([facility] Outpatient Attender: Criselda Herrera [facility] Main Office 12/16/2019 0 1:15:00 PM EDT [facility] ([facility] Outpatient Attender: Criselda Herrera [facility] Main Office 12/02/2019 0 4:00:00 PM EDT [facility] ([facility] Outpatient Attender: Criselda Herrera [facility] Main Office 11/24/2019 1 0:00:00 AM EDT [facility] ([facility] Inpatient Attender: MD EILEEN Urrutia: MD HAFSA Grajeda: MD LENNY Negron: RADHA BRICEÑO MDAdmitter: MD LENNY FALCON [id number] 07/30/2019 07:36:00 PM EDT [facility] Immunizations Vaccine Date Status Description Data Source(s) Moderna Sars-(Covid-19) vaccine, mRNA, LNP-S, PF, 100 mcg/ 0.5 mL 05/24/2020 12:00:00 AM EDT completed [facility] ([facility] COVID-19 VACCINE Moderna 05/24/2020 12:00:00 AM EDT completed [facility] Vaccine Series Complete: YESThis Data wa s Submitted to [facility] Via [employer]. COVID-19 VACCINE Moderna 04/19/2020 12:00:00 AM EST completed [facility] Vaccine Series Complete: NOThis Data was Submitted to [facility] Via [employer]. Moderna Sars-(Covid-19) vaccine, mRNA, LNP-S, PF, 100 [...] Medrol 08/07/2020 12:00:00 AM EDT active [facility] ([facility] ) Fluticasone Propionate Fluticasone Propionate [...] by mouth 2 (two) times a day [facility] Metformin hydrochloride 500 MG Oral Tablet metFORMIN ( GLUCOPHAGE) 500 MG tablet metFORMIN (GLUCOPHAGE) 500 MG tablet 01/11/2020 12:00:00 AM EST active [facility] Bacitracin 0.5 UNT/MG / Neomycin 0.0035 MG/MG / Polymyxin B 10 UNT/MG Topical Ointment Potovmyn-Bkobtvgwtw-Nvbxtplqn (FIRST AID ANTIBIOTIC) 3.5-400-5000 MG- UNIT OINT Jfcdsxfm-Kyluywyakt-Riobncjio (FIRST AID ANTIBIOTIC) 3.5-400-5000 MG- UNIT OINT 12/27/2019 12:00:00 AM EST active [facility] Albuterol 0.833 MG/ML / Ipratropium Brom danial 0.167 MG/ML Inhalant Solution ipratropium-albuterol (DUO-NEB) 0.5-2.5 mg/mL nebulizer ipratropium-albuterol (DUO-NEB) 0.5-2.5 mg/mL nebulizer 12/27/2019 12:00:00 AM EST active [facility] Metolazone 2.5 MG Oral Tablet Metolazone 12/08/2019 12:00:00 AM EDT ORAL active [facility] ([facility] torsemide 20 MG Oral Tablet Torsemide 12/08/2019 12:00:00 AM EDT active [facility] ([facility] Fluconazole 100 MG Oral Tablet fluconazole (DIFLUCAN) 100 MG tablet fluconazole (DIFLUCAN) 100 MG tablet 12/08/2019 12:00:00 AM EDT aborted [facility] torsemide 10 MG Oral Tablet Torsemide [...] P.C.) Docusate Sodium 50 MG / sennosides, MCFP 8.6 MG Oral Ta blet Senna-Docusate Sodium [...] tablet (5 mg total) by mouth daily [facility] Chronic bronchitis, unspecified chronic bronchitis type potassium chloride SA (K-DUR,KLOR-CON) 20 MEQ tablet [id number] 06/25/2019 12:00:00 AM EDT aborted [facility] Furosemide 40 MG Oral Tablet furosemide (LASIX) 40 MG tablet furosemide (LASIX) 40 MG tablet 06/11/2019 12:00:00 AM EDT 40 mg Oral abort ed Take 1 tablet (40 mg total) by mouth 2 (two) times a day [facility] tizanidine 4 MG Oral Tablet tiZANidine (ZANAFLEX) 4 MG tablet tiZANidine (ZANAFLEX) 4 MG tablet 4 mg Oral aborted Take 4 mg by mouth every 6 (six) hours as needed [facility] 60 ACTUAT Fluticasone propionate 0.5 MG/ ACTUAT / salmeterol 0.05 MG/ACTUAT Dry Powder Inhaler fluticasone-salmeterol (ADVAIR) 500-50 MCG/DOSE DISKUS fluticasone-salmeterol (ADVAIR) 500-50 MCG/DOSE DISKUS 1 {puff} Inhalation aborted Inhale 1 puff 2 (two) amy es a day [facility] Insurance Providers Payer name Policy type / Coverage type Policy ID Covered democrat ID Covered democrat's relationship to sellers Policy Sellers Plan Information [facility] 121/621 [id number] [facility] [id number] SP [id number] MEDICARE [id number] SP [id number] MEDICARE [id number] Susanna [id number] E78 MEDICARE [id number] Susanna [id number] A MEDICARE [id number] SP [id number] A MEDICARE A [id number] Self [id number] [id number] MEDICARE [id number] xxxxxxxxxxx [id number] MEDICARE A [id number] Self [id number] A FOR LIFE [id number] FOR LIFE [id number] FOR LIFE U [id number] Self [id number] Spo [id number] xxxxxxxxxxx [id number] FOR LIFE U [id number] Self [id number] [place] MEDICARE [id number] Susanna 7 [id number] For Life Medigap Part B [id number] Family Dependent [id number] [place] Primary [id number] Self [id number] For Life Reg 1 Medigap Part B [id number] Family Dependent 1 [id number] Medicare - NGS Medicare Primary [id number] 2.0.1.290471.3.227.99.177.17685.0 Self [id number] For Life Medigap Part B [id number] 2.0.1.933975.3.227.99.2809.88371.0 Family Dependent [id number] Medicare [place] Medicare Primary [id number] 2.0.1.448791.3.227.99.2809.20095.0 Self [id number] For Life Reg 1 Medigap Part B [id number] 2..1.686638.3.227.99.177.95854.0 Family Dependent 1 [id number] Medicare - NGS Medicare Primary [id number] 2..1.446440.3.227.99.177.21180.0 Self [id number] MEDICARE C UNAVAILABLE [id number] S UNAVAILA BLE MEDICARE C [id number] S [id number] A FOR LIFE [id number] [facility] [id number] For Life Reg 1 Medigap Part B [id number] 2..1.618025.3.227.99.177.39101.0 Family Dependent 1 [id number] Medicare - NGS Medicare Primary [id number] 2..[id number]1.0 Self 0 [id number] [place] MEDICARE PART B C [id number] S [id number] For Life Medigap Part B [id number] 2..1.605710.3.227.99.2809.96760.0 Family Dependent [id number] Medicare [place] Medicare Primary [id number] 2..1.494243.3.227.99.2809.90342.0 Self [id number] For Life Medigap Part B [id number] 2.16.840.1.436455.3.227.99.2809.50090.0 Family Dependent [id number] Medicare [place] Medicare Primary [id number] 2.16840.1.890173.3.227.99.2809.31543.0 Self [id number] For Life Medigap Part B [id number] 2.16840.1.629279.3.227.99.2809.87730.0 Family Dependent [id number] Medicare [place] Medicare Primary [id number] 2.16840.1.203563.3.227.99.2809.53478.0 Self [id number] PI PI MEDICARE PI PI [id number] Spo [id number] For Life Medigap Part B [id number] 2.0.1.201954.3.227.99.2809.90392.0 Family Dependent [id number] Medicare [place] Medicare Primary [id number] 2.0.1.449941.3.227.99.2809.73072.0 Self [id number] For Life Reg 1 Medigap Part B [id number] 2.0.1.485623.3.227.99.177.71370.0 Family Dependent 1 [id number] Medicare - NGS Medicare Primary [id number] 2.0.1.184413.3.227.99.177.09187.0 Self 0 [id number] For Life - WPS Medigap Part B [id number] 2.0.1.358173.3.227.99.572.21580.0 Self [id number] Medicare (Part A) Medicare Primary [id number] 2.840.1.949242.3.227.99.572.82755.0 Self 0 [id number] Medicare (Part B) Medicare Primary [id number] 2.0.1.228458.3.227.99.572.37753.0 Self 0 [id number] For Life Medigap Part B [id number] 2.16.840.1.890279.3.227.99.2809.73968.0 Family Dependent [id number] Medicare [place] Medicare Primary [id number] 2.840.1.733145.3.227.99.2809.61039.0 Self [id number] For Life - WPS Medigap Part B [id number] 2.840.1.939426.3.227.99.572.31999.0 Self [id number] Medicare (Part A) Medicare Primary [id number] 2.16840.1.313438.3.227.99.572.80796.0 Self 0 [id number] Medicare (Part B) Medicare Primary [id number] 2.840.1.154195.3.227.99.572.10550.0 Self 0 [id number] For Life Medigap Part B [id number] 2.0.1.354351.3.227.99.2809.13663.0 Family Dependent [id number] Medicare [place] Medicare Primary [id number] 2.0.1.762595.3.227.99.2809.58478.0 Self [id number] [facility] [id number] S [id number] For Life Medigap Part B [id number] 20.1.166507.3.227.99.2809.57542.0 Family Dependent [id number] Medicare [place] Medicare Primary [id number] 2.840.1.921132.3.227.99.2809.31549.0 Self [id number] For Life Medigap Part B [id number] 2.840.1.607273.3.227.99.2809.06526.0 Family Dependent [id number] Medicare Up[place] Medicare Primary [id number] 2.840.1.737949.3.227.99.2809.15150.0 Self [id number] For Life Medigap Part B [id number] 2.16.840.1.673813.3.227.99.2809.53606.0 Family Dependent [id number] Medicare [place] Medicare Primary [id number] 2.840.1.588228.3.227.99.2809.24999.0 Self [id number] For Life WPS Medigap Part B [id number] 2.840.1.072013.3.227.99.1767.96047.0 Self [id number] Medicare Natl Gov't Servi Medicare Primary [id number] 2.840.1.213194.3.227.99.1767.60934.0 Self [id number] For Life Medigap Part B [id number] 2.840.1.501099.3.227.99.2809.71307.0 Family Dependent [id number] Medicare [place] Medicare Primary [id number] 2.0.1.441374.3.227.99.2809.18800.0 Self [id number] FOR LIFE [id number] SP [id number] For Life Medigap Part B [id number] Family Dependent Medicare [place] Medicare Primary [id number] Self FOR LIFE [id number] SP [id number] FOR LIFE [id number] SP [id number] MEDICARE [id number] SP [id number] A RETIREE MEDICAL INSURANCE PLAN [id number] SP [id number] A [facility] MEDICAID [id number] SP [id number] Y [id number] [facility] MEDICAID [id number] SP [id number] SELF PAY ONLY [id number] SP [id number] MEDICARE C [id number] S [id number] FOR LIFE O [id number] S [id number] SELF PAY BA [facility] [id number] 2 [id number] [facility] O [id number] S [id number] For Life Medigap Part B [id number] Family Dependent [id number] Medicare [place] Medicare Primary [id number] Self [id number] For Life Medigap Part B [id number] Family Dependent [id number] Medicare [place] Medicare Primary [id number] Self [id number] For Life Reg 1 Medigap Part B [id number] [id number] Family Dependent 1 [id number] Medicare - NGS Medicare Primary [id number] [id number] Self [id number] For Life Medigap Part B [id number] [id number] Family Dependent [id number] Medicare [place] Medicare Primary [id number] Self [id number] Problems, Conditions, and Diagnoses Code Display Name Description Problem Type Effective Dates Data Source(s) R91.8 Abnormal findings on diagnostic imaging of lung Abnormal findings on diagnostic imaging of lung Problem 05/02/2020 12:00:00 AM EDT [facility] ) E11.69 Type 2 diabetes mellitus [...] extremities Pain in both lower extr emities [id number] 01/19/2020 12:00:00 AM EST [facility] G47.33 Obstructive sleep apnea syndrome Obstructive sle ep apnea syndrome Problem 12/21/2019 12:00:00 AM EST [facility] ([facility] ) Surgeries/Procedures Procedure Description Date Indications Data Source(s) OFFICE OUTPATIENT VISIT 25 MINUTES 10/11/2020 12:00:00 AM EDT [facility] ([facility] Chronic Care MGMT 20 Mins Clinical Staff Time Per Calendar [facility] 10/03/2020 12:00:00 AM EDT [facility] Chronic Care MGMT 20 Mins Clinical Staff Time Per Calendar [facility] 08/30/2020 12:00:00 AM EDT [facility] OFFICE OUTPATIENT VISIT 15 MINUTES 08/22/2020 12:00:00 AM EDT [facility] ([facility]) Spirometry 08/15/2020 12:00:00 AM EDT M [facility]ENT ([facility]) OFFICE OUTPATIENT VISIT 25 MINUTES 08/15/2020 12:00:00 AM EDT [facility] ([facility]) PHYSICIAN TELEPHONE EVALUATION 11-20 MIN 08/08/2020 12 :00:00 AM EDT [facility] ([facility]) OFFICE OUTPATIENT VISIT 25 MINUTES 08/07/2020 12:00:00 AM EDT [facility] ([facility]) OFFICE OUTPATIENT VISIT 25 MINUTES 07/31/2020 12:00:00 AM EDT [facility] Chronic Care MGMT 20 Mins Clinical Staff Time Per Calendar [facility] 07/27/2020 12:00:00 AM EDT [facility] ([facility] Chronic Care Management Services Ea Addl 20 Min 2020 12:00:00 AM EDT [facility] Chronic Care MGMT 20 Mins Clinical Staff Time Per Calendar [facility] 07/13/2020 12:00:00 AM EDT [facility] ([facility] OFFICE OUTPATIENT VISIT 25 MINUTES 07/12/2020 12:00:00 AM EDT [facility] Diabetic Foot Exam 07/12/2020 12:00:00 AM EDT [facility] ([facility] OFFICE OUTPATIENT VISIT 25 MINUTES 06/21/2020 12:00:00 AM EDT [facility] ([facility]) Chronic Care Management Services Ea Addl 20 Min 2020 12:00:00 AM EDT [facility] Chronic Care MGMT 20 Mins Clinical Staff Time Per Calendar [facility] 06/15/2020 12:00:00 AM EDT [facility] ([facility] OFFICE OUTPATIENT NEW 45 MINUTES 06/02/2020 12:00:00 A M EDT [facility] ([facility] ) Chronic Care Management Services Ea Addl 20 Min 2020 12:00:00 AM EDT [facility] Chronic Care MGMT 20 Mins Clinical Staff Time Per Calendar M [facility] 05/04/2020 12:00:00 AM EDT [facility] ([facility] X-Ray Hip Unilateral With Pelvis 2-3 Views 05/03/2020 12:00:00 AM EDT [facility] ([facility]) OFFICE OUTPATIENT VISIT 25 MINUTES 05/03/2020 12:00:00 AM EDT [facility] ([facility]) OFFICE OUTPATIENT VISIT 15 MINUTES 05/02/2020 12:00:00 AM EDT [facility] ([facility] ) OFFICE OUTPATIENT VISIT 15 MINUTES 04/12/2020 12:00:00 AM EST [facility] ([facility] ) ARTHROCENTESIS ASPIR&/INJECTION MAJOR JT/BURSA 021 12:00:00 AM EST [facility] ([facility]) Mammogram 01/26/2020 12:00:00 AM EST M [facility] ECG ROUTINE ECG W/LEAST 12 LDS W/I&R <td>POCT AMB EKG</td><td>Routine</td><td>01/19/2020 5:19 PM EST</td><td> Atrial flutter, unspecified type</td><td> </td> 01/19/2020 10:19:00 PM EST Atrial flutter, unspecified type [facility] Atrial flutter, unspecified type BLOOD COUNT COMPLETE AUTO&AUTO DIFRNTL WBC COUNT <td>C BC AND DIFFERENTIAL</td><td>Routine</td><td>12/08/2019</td><td></td><td> </td> 12/08/2019 12:00:00 AM EDT [facility] BASIC METABOLIC PANEL CALCIUM TOTAL <td>BASIC METABOLI C PANEL</td><td>Routine</td><td>12/08/2019</td><td></td><td> </td> 12/08/2019 12:00:00 AM EDT [facility] Results ID Date Data Source [id number] 10/18/2020 04:26:00 PM EDT [facility] ([facility] [...] AFTER 5 DAYS ID Date Data Source [id number] 10/18/2020 04:07:00 PM EDT [facility] Name Value Range Interpretation Code Description Data Luz rce(s) Supporting Document(s) SARS coronavirus 2 RNA [Presence] in Res piratory specimen by TEO with probe detection NEGATIVE [facility] This lab was ordered by [facility] a nd reported by [facility]. ID Date Data Source [id number] 10/18/2020 04:07:00 PM EDT [facility] ([facility] [...] AFTER 5 DAYS ID Date Data Source [id number] 10/18/2020 04:07:00 PM EDT [facility] ([facility] [...] pathogens. DISCLAIMER: Testing was performed using the [facility] SARS-CoV-2 test. This test was developed and its performance characteristics determined by [facility]. This test has not been FDA cleared [...] patient management decisions. ID Date Data Source [id number] 10/18/2020 01:47:00 PM EDT [facility] ([facility] Name Value Range Interpretation Code Description Data Luz e(s) Supporting Document(s) C reactive protein [Mass/volume] in Serum or Plasma by High sensitivity method 1.22 mg/dL 0.00-0.30 [facility] ([facility] Natriuretic peptide.B prohormone N-Terminal [Mass/volu me] in Serum or Plasma 427 pg/mL [facility] ([facility] Erythrocyte sedimentation rate by 2H Westergren method 27 mm/hr 0-3 0 [facility] ID Date Data Source [id number] 10/18/2020 01:47:00 PM EDT [facility] ([facility] Name Value Range Interpretation Code Description Data [facility]) Supporting Document(s) Blood Urea Nitrogen 20 mg/dL [...] Little GFR Left</content>
<content>ESRD GFR <15 on [employer]</content>
<content></content> Sodium Level 140 meq/L 136-145 [facility] ([facility] Potassium Serum 4.3 meq/L 3.5-5.1 [facility] ([facility] Chloride Level 106 meq/L 98-107 [facility] ([facility] Anion Gap 4 meq/L 8-16 [facility] ([facility] Carbon Dioxide Level 30 meq/L 21-32 [facility] ([facility] Calcium Level 8.7 mg/dL 8.8-10.2 [facility] ([facility] ID Date Data Source [id number] 10/18/2020 01:47:00 PM EDT [facility] ([facility] [...] <content>Troponin I Reference Interval f or Siemens Guinda LOCI:</content>
<content></content>
<content>99th Percentile= 0.00-0.045 ng/ml</content>
<content></content>
<content>Risk Stratification:</content>
<content><= 0.10 ng/ml Decreased Risk for Adverse Clinical</content>
<content>Events.</content>
<content>0.10-1.50 ng/ml Increased Risk for Adverse Clinical</content>
<content>Events. Evaluation of additional</content>
<content>criterion and/or repeat testing in 2-6</content>
<content>hours is suggested to rule out myocardial</content>
<content>damage.</content>
<content>>= 1.50 ng/ml Indicative of Myocardial Injury.</content>
<content></content> ID Date Data Source [id number] 10/18/2020 01:47:00 PM EDT [facility] ([facility] [...] % 36.0-66.0 [facility] ([facility] Swisher % 7.5 % 2.0-8.0 [facility] Eos % 3.8 % 0.0-3.0 [facility] ([facility] Baso % 0.4 % 0.0-1.0 [facility] ([facility] Immature Granulocyte % 0.8 % 0-3.0 [facility] ([facility] Nucleated Red Blood Cell % 0.0 % 0-0 [facility] ([facility] Neutrophils # 4.0 10 1.5-8.5 [facility] ([facility] Swisher # 0.4 10 0.0-0.8 [facility] ([facility] Lymph # 0.7 10 1.5-5.0 [facility] Eos # 0.2 10 0.0-0.5 [facility] ([facility] Baso # 0.0 10 0.0-0.2 [facility] ID Date Data Source [id number] 10/11/2020 03:31:00 PM EDT [facility] ([facility] Name Value Range Interpretation Code Description Data [facility]) Malb Urine Siemens 9.0 mg/L [facility] ([facility] Moose/Creat Ratio 17.1 MCG/MG 0.0-30.0 [facility] ([facility] THE [employer] STATES THAT MICROALBUMINURIA IS PRESENT IF THE MICROALBUMIN/CREATININE RATIO EXCEEDS 30 MCG/MG. THE THRESHOLD FOR CLINICAL ALBUMINURIA IS REACHED AT 300 MCG/MG. THE CLASSIFICATION OF A PATIENT SHOULD BE BASED UPON AT LEAST 2 OF 3 ABNORMAL RESULTS ON SPECIMENS COLLECTED WITHIN A 3 TO 6 MONTH TIME FRAME. Creatinine, Urine 52.4 mg/dL [facility] ([facility] ID Date Data Source [id number] 10/11/2020 03:31:00 PM EDT [facility] ([facility] Name Value Range Interpretation Code Description Data [facility] Supporting Document(s) Cholesterol Level 98 mg/dL [facility] ([facility] Triglycerides Level 75 mg/dL [facility] ([facility] LDL Cholesterol 37 mg/dL [facility] ([facility] HDL Cholesterol 46 mg/dL [facility] ([facility] Cholesterol Risk Ratio 2.130 [facility] ([facility] Non-HDL-C 52 mg/dL [facility] ([facility] ID Date Data Source [id number] 10/11/2020 03:31:00 PM EDT [facility] ([facility] Name Value Range Interpretation Code Description Data [facility] Supporting Document(s) Hemoglobin A1c/Hemoglobin.total in Blood 5.9 % [facility] ([facility] <content>REFERENCE RANGES:</content><br/ ><content></content>
<content><=5.6% NORMAL</content>
<content>5.7-6.4% SUGGESTS IMPAIRED GLUCOSE METABOLISM/PREDIABETIC</content>
<content>>= 6.5% ABNORMAL</content>
<content></content> Estimated Average Glucose 123 mg/dL 60-110 [facility] ([facility] ID Date Data Source [id number] 10/11/2020 03:31:00 PM EDT [facility] ([facility] [...] Little GFR Left</content>
<content>ESRD GFR <15 on [employer]</content>
<content></content> Potassium Serum 4.1 meq/L 3.5-5.1 [facility] [...] [facility] ID Date Data Source [id number] 08/15/2020 11:05:00 AM EDT [facility] ([facility], ) Name Value Range Interpretation Code Description Data Luz rce(s) Supporting Document(s) FVC-Pred 2.45 L [facility] ([facility], ) PDFReport Laboratory test result [facility] ([facility] ) FVC-%Pred-Pre 63 L [facility] ([facility], ) FVC-LLN 1.80 L [facility] ([facility], ) FVC-Pre 1.55 L [facility] ([facility], ) Fev1-Pre 1.31 L [facility] ([facility]) Fev1-Pred 1.82 L [facility] ([facility]) Fev1-%Pred-Pre 71 L [facility] ([facility], ) Fev6-Pred 2.32 L [facility] ([facility], ) Fev1-LLN 1.27 L [facility] ([facility]) Fev6-%Pred-Pre 66 L [facility] ([facility]) Fev6-Pre 1.55 L [facility] ([facility]) Hbi0bqv-Jicv 74 % [facility] ([facility]) Zfz9joi-Nmj 84 % [facility] ([facility]) Fev6-LLN 1.68 L [facility] ([facility]) Qjp2xhg-CMN 64 % [facility] ([facility]) Kyo4jfi-%Pred-Pre 113 % [facility] ([facility]) Auv8csk-%Pred-Pre 105 % [facility] ([facility]) Uhi4xbp-Kzh 100 % [facility] ([facility]) Tvm4hen-Jcog 95 % [facility] ([facility]) FEFMax-Pred 4.68 L/E/sec [facility] ([facility], ) FEFMax-Pre 3.53 L/E/sec [facility] ([facility]) FEFMax-%Pred-Pre 75 L/E/sec [facility] ([facility]) FEFMax-LLN 3.07 L/E/sec [facility] ([facility]) Uri3828-Xbam 1.40 L/E/sec [facility] ([facility]) Sqs1406-TRL 0.23 L/E/sec [facility] ([facility]) Hhh3704-Pno 1.51 L/E/sec [facility] ([facility], ) Bel4978-%Pred-Pre 108 L/E/sec [facility] ([facility]) ExpTime-Pre 4.54 sec [facility] ([facility]) Vtk2pys1-Kgtm 78 % [facility] ([facility]) Ajh4uvi4-Hdf 84 % [facility] ([facility]) Ezz7biy8-%Pred-Pre 108 % [facility] ([facility]) Esh8uqz0-NRX 69 % [facility] ([facility]) ID Date Data Source [id number] 08/03/2020 02:55:00 PM EDT [facility] ([facility] [...] Little GFR Left</content>
<content>ESRD GFR <15 on [employer]</content>
<content></content> Chloride Level 97 meq/L 98-107 [facility] [...] [facility] ID Date Data Source [id number] 07/31/2020 01:30:00 PM EDT [facility] ([facility] [...] Little GFR Left</content>
<content>ESRD GFR <15 on [employer]</content>
<content></content> Potassium Serum 2.9 meq/L 3.5-5.1 Below lower panic limits [facility] ([facility] Chloride Level 99 meq/L 98-107 [facility] ([facility] Carbon Dioxide Level 32 meq/L 21-32 [facility] ([facility] Anion Gap 7 meq/L 8-16 [facility] ([facility] Calcium Level 9.7 mg/dL 8.8-10.2 [facility] ([facility] ID Date Data Source [id number] 07/26/2020 11:54:00 PM EDT [facility] ([facility] Name Value Range Interpretation Code Description Data Luz rce(s) Supporting Document(s) Troponin I.cardiac [Mass/volume] in Serum or Plasma 0.00 ng/mL 0.00-0 .08 [facility] ([facility] ID Date Data Source [id number] 06/24/2020 04:04:54 PM EDT [facility] Name Value Range Interpretation Code Description Data Luz rce(s) Supporting Document(s) &PDF [facility] USJUIu2jXxWOQzQr42/AZBxtKUMzi5VhCVdeGTr8IGxiRIQwZ7TqwYjuHDHRUyFOOQHySK5BX6RPXmJo oRX [file] AgICAgICAgICAgICAgICAgICAgICAgICAgICAgICAgICAgICAgICAgICAgICAgICAgICAgDQogICAgIC AgICAgICAgICAgICAgICAgICAgICAgICAgICAgICAg ICAgICAgICAgICAgICAgICAgICAgICAgICAgICAgICAgICAgICAgICAgICAgICAgICAgICAgICAgICAg ICAgDQogICAgICAgICAgICAgICAgICAgICAgICAgICAgICAgICAgICAgICAgICAgICAgICAgICAgICAg ICAgICAgICAgICAgICAgICAgICAgICAgICAgICAgIC AgICAgICAgICAgICAgDQogICAgICAgICAgICAgICAgICAgICAgICAgICAgICAgICAgICAgICAgICAgIC AgICAgICAgICAgICAgICAgICAgICAgICAgICAgICAgICAgICAgICAgICAgICAgICAgICAgICAgDQogIC AgICAgICAgICAgICAgICAgICAgICAgICAgICAgICAg ICAgICAgICAgICAgICAgICAgICAgICAgICAgICAgICAgICAgICAgICAgICAgICAgICAgICAgICAgICAg ICAgICAgDQogICAgICAgICAgICAgICAgICAgICAgICAgICAgICAgICAgICAgICAgICAgICAgICAgICAg ICAgICAgICAgICAgICAgICAgICAgICAgICAgICAgIC AgICAgICAgICAgICAgICAgDQogICAgICAgICAgICAgICAgICAgICAgICAgICAgICAgICAgICAgICAgIC AgICAgICAgICAgICAgICAgICAgICAgICAgICAgICAgICAgICAgICAgICAgICAgICAgICAgICAgICAgDQ ogICAgICAgICAgICAgICAgICAgICAgICAgICAgICAg ICAgICAgICAgICAgICAgICAgICAgICAgICAgICAgICAgICAgICAgICAgICAgICAgICAgICAgICAgICAg ICAgICAgICAgDQogICAgICAgICAgICAgICAgICAgICAgICAgICAgICAgICAgICAgICAgICAgICAgICAg ICAgICAgICAgICAgICAgICAgICAgICAgICAgICAgIC AgICAgICAgICAgICAgICAgICAgDQogICAgICAgICAgICAgICAgICAgICAgICAgICAgICAgICAgICAgIC AgICAgICAgICAgICAgICAgICAgICAgICAgICAgICAgICAgICAgICAgICAgICAgICAgICAgICAgICAgIC NuWRk6A0iyECKgCTUaXB2oOMw3Ax1+DQoNCmVuZHN0 yuGofW4URN9fm1YeFHobZKMqb7QrOSl6KU9DZIZlXOizVV3AQPamxo1IDDMqSWRvlFNKj0mrDaQnPGU9 XBCoQfpdPE6XKACdI5sbkcMxDSHtQRWHIVnsUHGZVU6YIyJlP9UwtF84PSXRSk0+DQplbmRvYmoNCjMz FPFih6QoXGp0HG1ECZDvQDprCG0FBUIooE1iSEwmDG 5FGgJiHYTqSUJCJsYjX01ozXTaSUf3H8FiIbNxHLLdVxxnUBZbZJrhGiSqWCIdLrMpLZwpLB2+ID4+DQ arYC6DNQootnLnAFFdSe1UDHSfYCV2YNWydCIoXjNoTOEELJcvGG0SxHNqXRC8bL9aDBroFRHjUEPvI3 zHAoWyePbwWA42nZvvptGrgBYmAMp+Us9RWX0ey3Fx FVu4wrWfXKejVQO3EAegQNBrIAIcYEEkTFO1XXB1ANWFGmCpJDWtGIFkLHjwVXDtYTDloq8UOMIlWQFq DKH5NLOtTCFkRRAfNCfaEPKyCBAfKWKkUXTzBGDjBM0TAyXfTGKmAHGxYQUsCJIhCDVifo1NWGPeRXAd JxR6SfXmBAWhXGEmIKjgNSAsRLJsTpRdARUwNSUpAV 5MAoSkFYWlOHTkVpPeTEGdHFGoxk4POHYsSANcJERnOkZuYCLqBUJlCUryHLXpGZD2Yfe1CJEuTKVhCE 7KOlRuHMYnDHS3HYUpGDOfOPKlkb1IFOImGEZhPmA5EdYqRXPsWYEzYDpbNRZnRML9AtRaFHYnRDMfNT 1HQwCeAMMtDNu0WlPeIGIyWAWhwr4CYQThEOCaDDDr FoEyYQTdISUiXAwaTTFvJOViMQs6ZDFaZJWmSZ9YFuHdORNtNRJiWGKsILPjADOxop2KFRLxNPNjHkUf QjZnKLFoCMZbZHygYAWpGRFeQlD9RKFpUTYcKA1DWiZfRZDqWLX4NNKuWRBzMDIypc1QBOTwVHQmEEap EoMiHJXhWPVkLDhrGABaWDK1AYLxFJRfWCLfWI8XEu UkQKPnQAAjRWQpOFIyLAZpvk1OIWDlDMShMkLkGhZpUTRmYPUsGMubIYPaBQZ8DdNzULWoOYFtET6OYj PfMXUxKCSjHOiaHAZaPTDhas2CLIOmGBDbAnuwCGFoLYCxXKFqLRpfHVSeRIH8OLG2TDVvVXXxQF2LPb VsWBGwWLuzUnzbLNSqGJJskx6ODAHiFSPjSqFpLuKd EKKeZIFwFZlxEYHuBJZ8KYT7TQEoCSWrDD0CFfVsCCMxXKmnBkevECGySJVwhe5FPTOcEEIlILO5CgKl YUEpYXWoZKmsGEUeYVAtJUK6IWTnYNSzIM3RHfXoAJppJRBKFin7YZftU2p5LJEyVA1KN4Izp9YyNoEo TMAWNPviIX6xyiCuAUBpKw2KI9aFYmedF8UuCUU0HF NrJFIzHFAkLYo2Jil4NYdwDJvoNBD5KC2mLRMaPKEyVFutIJVcDJGiEGKlSWEgYNecNlNaCDX6DyceEf PlIF5AAo8TMtI5DNT4yTVbIj8WVqAfAOGTIbPkME1DACo= ID Date Data Source [id number] 06/06/2020 11:31:00 PM EDT [facility] ([facility]. [...] pathogens. DISCLAIMER: Testing was performed using the [facility] SARS-CoV-2 test. This test was developed and its performance characteristics determined by [facility]. This test has not been FDA cleared [...] or revoked sooner. ID Date Data Source [id number] 06/06/2020 11:31:00 PM EDT [facility] Name Value Range Interpretation Code Description Data Luz rce(s) Supporting Document(s) SARS coronavirus 2 RNA [Presence] in Res piratory specimen by TEO with probe detection NEGATIVE [facility] This lab was ordered by [facility] a nd reported by [facility]. ID Date Data Source [id number] 06/06/2020 10:54:00 PM EDT [facility] ([facility] Name Value Range Interpretation Code Description Data Luz rce(s) Supporting Document(s) Natriuretic peptide.B prohormone N-Terminal [Mass/volu me] in Serum or Plasma 260 pg/mL [facility] ID Date Data Source [id number] 06/06/2020 10:54:00 PM EDT [facility] ([facility] Langle[facility] [...] Little GFR Left</content>
<content>ESRD GFR <15 on [employer]</content>
<content></content> Sodium Level 140 meq/L 136-145 [facility] [...] [facility] ID Date Data Source [id number] 06/06/2020 10:54:00 PM EDT [facility] ([facility] Name Value Range Interpretation Code Description Data Luz rce(s) Supporting Document(s) Ast/Sgot 4 U/L 7-37 [facility] ([facility] Alkaline Phosphatase 57 U/L 45-117 [facility] ([facility] Alt/SGPT 9 U/L 12-78 [facility] ([facility] Bilirubin,Direct 0.2 mg/dL 0.0-0.2 [facility] ([facility] Bilirubin,Total 0.7 mg/dL 0.2-1.0 [facility] ([facility] Total Protein 5.5 GM/DL 6.4-8.2 [facility] ([facility] Albumin/Globulin Ratio 1.5 1.2-2.2 [facility] ([facility] Albumin 3.3 GM/DL 3.2-5.2 [facility] ([facility] ID Date Data Source [id number] 06/06/2020 10:54:00 PM EDT [facility] ([facility] L[facility]y [...] <content>Troponin I Reference Interval f or Siemens Guinda LOCI:</content>
<content></content>
<content>99th Percentile= 0.00-0.045 ng/ml</content>
<content></content>
<content>Risk Stratification:</content>
<content><= 0.10 ng/ml Decreased Risk for Adverse Clinical</content>
<content>Events.</content>
<content>0.10-1.50 ng/ml Increased Risk for Adverse Clinical</content>
<content>Events. Evaluation of additional</content>
<content>criterion and/or repeat testing in 2-6</content>
<content>hours is suggested to rule out myocardial</content>
<content>damage.</content>
<content>>= 1.50 ng/ml Indicative of Myocardial Injury.</content>
<content></content> ID Date Data Source [id number] 06/06/2020 10:54:00 PM EDT [facility] ([facility] Name Value Range Interpretation Code Description Data Luz rce(s) Supporting Document(s) Lactate [Mass/volume] in Serum or Plasma 1.9 mmol/L 0.4-2.0 [facility] ([facility] Y/N query for Sepsis Lactate Rule: Y ID Date Data Source [id number] 06/06/2020 10:54:00 PM EDT [facility] ([facility] Langley [...] Cell Distribution Width 15.2 % 11.5-14.5 [facility] ([facility] Neutrophils % 69.4 % 36.0-66.0 [facility] ([facility] Platelet Count, Automated 165 10 150-450 [facility] ([facility] Lymph % 20.2 % 24.0-44.0 [facility] ([facility] Swisher % 6.9 % 2.0-8.0 [facility] (Nuzhat rivera [...] 10 1.5-8.5 [facility] ([facility] Swisher # 0.6 10 0.0-0.8 [facility] ([facility] Eos # 0.2 10 0.0-0.5 [facility] Baso # 0.0 10 0.0-0.2 [facility] ([facility] ID Date Data Source [id number] 05/18/2020 10:45:00 AM EDT [facility] ([facility]uzhat Langley [...] by the U.S. Food and Drug Administration. [facility] are designated as high complexity laboratories by the Clinical Laboratory Improvement Amendments of 1988(CLIA) and is qualified to perform this test. ASSAY INFORMATION: Real Time RT-PCR ID Date Data Source [id number] 05/18/2020 12:00:00 AM EDT [facility] Name Value Range Interpretation Code Description Data Luz rce(s) Supporting Document(s) SARS-CoV-2 (COVID-19) RNA [Presence] in Respiratory specimen by TEO with probe detection Not Detected [facility] This lab was ordered by [facility] and reported by [employer] ID Date Data Source [id number] 04/10/2020 12:00:00 AM EST [facility] Nuzhat Langley MD Patient Name: MYAH [id number] [address] [facility] 1940[facility] [address] Date of Exam: 04/10/2020#: Fax: [phone] EXAM: [...] rce(s) Supporting Document(s) ID Date Data Source [id number] 04/10/2020 12:00:00 AM [facility] Nuzhat Langley MD Patient Name: MYAH [id number] [address] Date of : 1940[place] [address] Date of Exam: 04/10/2020#: Fax: [phone] EXAM: [...] rce(s) Supporting Document(s) ID Date Data Source [id number] 04/06/2020 07:29:00 PM EST [facility] ([facility] Name Value Range Interpretation Code Description Data Luz rce(s) Supporting Document(s) Appearance, Urine RFX Laboratory test result [facility] ([facility] Color, Urine RFX Laboratory test result [facility] ([facility] PH,Urine RFX 6.0 units 5.0-9.0 [facility] ([facility] Specific [place] Ur Auto RFX 1.030 1.002-1.035 [facility] ([facility] [...] [facility] ID Date Data Source [id number] 04/06/2020 05:47:00 PM EST [facility] ([facility] Langley [...] [facility] ID Date Data Source [id number] 04/06/2020 05:27:00 PM EST [facility] ([facility] Name Value Range Interpretation Code Description Data Luz rce(s) Supporting Document(s) Erythrocyte sedimentation rate by 2H Westergren method 35 mm/hr 0-3 0 [facility] ([facility] ID Date Data Source [id number] 04/06/2020 05:27:00 PM EST [facility] ([facility] Langley [...] % 36.0-66.0 [facility] ([facility] Swisher % 5.7 % 2.0-8.0 [facility] (Nuzhat rivera [...] 10 1.5-5.0 [facility] Swisher # 0.5 10 0.0-0.8 [facility] Eos # 0.1 10 0.0-0.5 [facility] Baso # 0.0 10 0.0-0.2 [facility] ([facility] ID Date Data Source [id number] 04/06/2020 05:27:00 PM EST [facility] ([facility] Name Value Range Interpretation Code Description Data Luz rce(s) Supporting Document(s) C reactive protein [Mass/volume] in Serum or Plasma by High sensitivity method 1.31 mg/dL 0.00-0.30 [facility] ([facility] ID Date Data Source [id number] 03/07/2020 11:43:00 PM EST [facility] ([facility] L[facility]y [...] [facility] ID Date Data Source [id number] 03/07/2020 09:42:00 PM EST [facility] ([facility] Langley [...] - SARS-CoV-2 (COVID19) ID Date Data Source [id number] 03/07/2020 09:42:00 PM EST [facility] Name Value Range Interpretation Code Description Data Luz rce(s) Supporting Document(s) SARS-CoV-2 (COVID 19) NEGATIVE - SARS-CoV-2 (COVID19) [facility] This lab was ordered by [facility] a nd reported by [facility]. ID Date Data Source [id number] 01/31/2020 01:53:00 PM EST [facility] ([facility] Langley [...] [facility] ID Date Data Source [id number] 01/31/2020 01:53:00 PM EST [facility] ([facility] Name Value Range Interpretation Code Description Data Luz rce(s) Supporting Document(s) Natriuretic peptide.B prohormone N-Terminal [Mass/volu me] in Serum or Plasma 226 pg/mL [facility] ID Date Data Source [id number] 01/31/2020 01:53:00 PM EST [facility] ([facility] Langle[facility] [...] Little GFR Left</content>
<content>ESRD GFR <15 on [employer]</content>
<content></content> Creatinine For GFR 1.48 mg/dL 0.55-1.30 [facility] ([facility] Sodium Level 141 meq/L 136-145 [facility] Potassium Serum 3.4 meq/L 3.5-5.1 [facility] ([facility] Chloride Level 99 meq/L 98-107 [facility] Carbon Dioxide Level 38 meq/L 21-32 [facility] ([facility] Anion Gap 4 meq/L 8-16 [facility] ([facility]uzhat rivera [facility] Calcium Level 9.5 mg/dL 8.8-10.2 [facility] ([facility] ID Date Data Source [id number] 01/31/2020 01:53:00 PM EST [facility] ([facility] Name Value Range Interpretation Code Description Data Luz rce(s) Supporting Document(s) Ast/Sgot 4 U/L 7-37 [facility] ([facility]uzhat rivera [facility] Alt/SGPT 10 U/L 12-78 [facility] ([facility]hat rivera [facility] Alkaline Phosphatase 53 U/L 45-117 [facility] (Sukumar [facility] Bilirubin,Total 1.1 mg/dL 0.2-1.0 [facility] ([facility] Lanlgey [facility] Total Protein 5.7 GM/DL 6.4-8.2 [facility] ([facility] Bilirubin,Direct 0.4 mg/dL 0.0-0.2 [facility] ([facility] Albumin 3.4 GM/DL 3.2-5.2 [facility] (Nuzhat rivera [facility] Albumin/Globulin Ratio 1.5 1.2-2.2 [facility] ([facility] ID Date Data Source [id number] 01/31/2020 01:53:00 PM EST [facility] (Nuzhat Langley [...] <content>Troponin I Reference Interval f or [employer] Guinda LOCI:</content>
<content></content>
<content>99th Percentile= 0.00-0.045 ng/ml</content>
<content></content>
<content>Risk Stratification:</content>
<content><= 0.10 ng/ml Decreased Risk for Adverse Clinical</content>
<content>Events.</content>
<content>0.10-1.50 ng/ml Increased Risk for Adverse Clinical</content>
<content>Events. Evaluation of additional</content>
<content>criterion and/or repeat testing in 2-6</content>
<content>hours is suggested to rule out myocardial</content>
<content>damage.</content>
<content>>= 1.50 ng/ml Indicative of Myocardial Injury.</content>
<content></content> ID Date Data Source [id number] 01/31/2020 01:53:00 PM EST [facility] ([facility] Name Value Range Interpretation Code Description Data Luz rce(s) Supporting Document(s) White Blood Count 9.7 10 4.0-10.0 [facility] (Lara [facility] Red Blood Count 3.88 10 4.00-5.40 [facility] ([facility] Hemoglobin 10.8 g/dL 12.0-15.5 [facility] (Nuzhat jennings [facility] Hematocrit 35.2 % 36.0-47.0 [facility] (Nzuhat jennings [facility] Mean Corpuscular Hemoglobin 27.8 [...] % 24.0-44.0 [facility] ([facility]hat rivera [facility] Swisher % 6.1 % 0.0-5.0 [facility] (Nuzhat rivera [...] 10 0.0-0.5 [facility] ([facility]hat rivera [facility] Swisher # 0.6 10 0.0-0.8 [facility] ([facility]hat rivera [facility] Baso # 0.0 10 0.0-0.2 [facility] ([facility]uzhat rivera [facility] ID Date Data Source [id number] 01/24/2020 12:25:00 AM EST [facility] (Nuzhat Langley [...] <content>Troponin I Reference Interval f or [employer] Guinda LOCI:</content>
<content></content>
<content>99th Percentile= 0.00-0.045 ng/ml</content>
<content></content>
<content>Risk Stratification:</content>
<content><= 0.10 ng/ml Decreased Risk for Adverse Clinical</content>
<content>Events.</content>
<content>0.10-1.50 ng/ml Increased Risk for Adverse Clinical</content>
<content>Events. Evaluation of additional</content>
<content>criterion and/or repeat testing in 2-6</content>
<content>hours is suggested to rule out myocardial</content>
<content>damage.</content>
<content>>= 1.50 ng/ml Indicative of Myocardial Injury.</content>
<content></content> ID Date Data Source [id number] 01/23/2020 09:51:00 PM EST [facility] (Nuzhat Langley [...] Little GFR Left</content>
<content>ESRD GFR <15 on [employer]</content>
<content></content> Creatinine For GFR 1.61 mg/dL 0.55-1.30 [...] [facility] ID Date Data Source [id number] 01/23/2020 09:51:00 PM EST [facility] ([facility]uzhat Langley [...] [facility] ID Date Data Source [id number] 01/23/2020 09:51:00 PM EST [facility] ([facility] Name Value Range Interpretation Code Description Data Luz rce(s) Supporting Document(s) CK-MB Value Mass Laboratory test result [facility] ([facility] CPK Creatine Phosphokinase 43 U/L 26-192 [facility] ([facility] Troponin I Laboratory test result [facility] ([facility] <content>Troponin I Reference Interval f or Siemens Guinda LOCI:</content>
<content></content>
<content>99th Percentile= 0.00-0.045 ng/ml</content>
<content></content>
[...] > 4</content>
<content></content> ID Date Data Source [id number] 01/23/2020 09:51:00 PM EST [facility] (Nuzhat Langley [...] MYOCARDIAL INFARCTION 2.5-3.5 ID Date Data Source [id number] 01/23/2020 09:51:00 PM EST [facility] (Nuzhat Langley [...] % 11.5-14.5 [facility] ([facility] Swisher % 5.0 % 0.0-5.0 [facility] (Nuzhat rivera [...] [facility] ([facility] A. Choco liams[facility] Swisher # 0.5 10 0.0-0.8 [facility] ([facility] Baso # 0.0 10 0.0-0.2 [facility] ([facility] ID Date Data Source [id number] 01/23/2020 09:51:00 PM EST [facility] ([facility] Name Value Range Interpretation Code Description Data Luz rce(s) Supporting Document(s) Natriuretic peptide.B prohormone N-Terminal [Mass/volu me] in Serum or Plasma 519 pg/mL [facility] ([facility] ID Date Data Source [id number] 01/19/2020 02:58:00 PM EST [facility] ([facility] Name Value Range Interpretation Code Description Data Luz e(s) Supporting Document(s) Hemoglobin A1c/Hemoglobin.total in Blood 6.5 % [facility] ([facility] <content>REFERENCE RANGES:</content><br/ ><content></content>
<content><=5.6% NORMAL</content>
<content>5.7-6.4% SUGGESTS IMPAIRED GLUCOSE METABOLISM/PREDIABETIC</content>
<content>>= 6.5% ABNORMAL</content>
<content></content> Estimated Average Glucose 140 mg/dL 60-110 [facility] ([facility] ID Date Data Source [id number] 01/19/2020 02:58:00 PM EST [facility] (Nuzhat Langley [...] Little GFR Left</content>
<content>ESRD GFR <15 on [employer]</content>
<content></content> Carbon Dioxide Level 37 meq/L 21-32 [...] [facility] ID Date Data Source [id number] 12/02/2019 07:46:00 PM EDT [facility] (Nuzhat Langley [...] pathogens. DISCLAIMER: Testing was performed using the [facility] SARS-CoV-2 test. This test was developed and its performance characteristics determined by [facility]. This test has not been FDA cleared [...] or revoked sooner. ID Date Data Source [id number] 12/02/2019 07:06:00 PM EDT [facility] (Nuzhat Langley [...] [facility] ID Date Data Source [id number] 12/02/2019 07:06:00 PM EDT [facility] (Nuzhat Langley [...] [facility] ID Date Data Source [id number] 12/02/2019 07:06:00 PM EDT [facility] (Nuzhat Langley [...] MYOCARDIAL INFARCTION 2.5-3.5 ID Date Data Source [id number] 12/02/2019 07:06:00 PM EDT [facility] (Nuzhat Langley [...] % 24.0-44.0 [facility] ([facility] Swisher % 7.1 % 0.0-5.0 [facility] (Nuzhat rivera [...] 10 0.0-0.5 [facility] ([facility] Swisher # 0.6 10 0.0-0.8 [facility] ([facility] Baso # 0.0 10 0.0-0.2 [facility] ([facility] ID Date Data Source [id number] 12/02/2019 07:06:00 PM EDT [facility] (Nuzhat Langley [...] [facility] ID Date Data Source [id number] 12/02/2019 06:37:00 PM EDT [facility] ([facility] Name Value Range Interpretation Code Description Data Luz rce(s) Supporting Document(s) Troponin I.cardiac [Mass/volume] in Serum or Plasma 0.00 ng/mL 0.00-0 .08 [facility] ([facility] ID Date Data Source [id number] 12/02/2019 06:35:00 PM EDT [facility] (Nuzhat Langley [...] [facility] ID Date Data Source [id number] 11/24/2019 01:17:00 PM EDT [facility] (Nuzhat Langley [...] ([facility] ID Date Data Source [id number] 11/24/2019 01:17:00 PM EDT [facility] (Nuzhat Langley [...] Little GFR Left</content>
<content>ESRD GFR <15 on [employer]</content>
<content></content> Potassium Serum 4.0 meq/L 3.5-5.1 [facility] [...] [facility] ID Date Data Source [id number] 11/24/2019 01:17:00 PM EDT [facility] ([facility] Name Value Range Interpretation Code Description Data Luz rce(s) Supporting Document(s) Alkaline Phosphatase 56 U/L 45-117 [facility] (S[facility]umar [facility] Alt/SGPT 12 U/L 12-78 [facility] ([facility] Ast/Sgot 7 U/L 7-37 [facility] ([facility] Bilirubin,Total 0.9 mg/dL 0.2-1.0 [facility] ([facility] Bilirubin,Direct 0.3 mg/dL 0.0-0.2 [facility] (Nuzhta [facility] Total Protein 5.5 GM/DL 6.4-8.2 [facility] ([facility] Albumin 3.2 GM/DL 3.2-5.2 [facility] ([facility] Albumin/Globulin Ratio 1.4 1.2-2.2 [facility] ([facility] ID Date Data Source [id number] 11/24/2019 01:17:00 PM EDT [facility] ([facility] Name Value Range Interpretation Code Description Data Luz rce(s) Supporting Document(s) CK-MB Value Mass 1.2 ng/mL [facility] ([facility] CPK Creatine Phosphokinase 26 U/L 26-192 [facility] ([facility] Troponin I Laboratory test result [facility] ([facility] <content>Troponin I Reference Interval f or Siemens Guinda LOCI:</content>
<content></content>
<content>99th Percentile= 0.00-0.045 ng/ml</content>
<content></content>
[...] > 4</content>
<content></content> ID Date Data Source [id number] 11/24/2019 01:17:00 PM EDT [facility] ([facility] Name Value Range Interpretation Code Description Data Luz rce(s) Supporting Document(s) Erythrocyte sedimentation rate by 2H Westergren method 11 mm/hr 0-3 0 [facility] ([facility] ID Date Data Source [id number] 11/24/2019 01:17:00 PM EDT [facility] ([facility] Name Value Range Interpretation Code Description [facility]) Red Blood Count 3.61 [...] % 0.0-3.0 [facility] ([facility] Swisher % 5.6 % 0.0-5.0 [facility] (Nuzhat rivera [...] 10 1.5-5.0 [facility] ([facility] Swisher # 0.5 10 0.0-0.8 [facility] (Nuzhat rivera [...] completed Patient is a former smoker [facility] ([facility] ) Alcohol intake 06/07/2020 12:00:00 AM EDT No completed [facility] Cigarette pack-years 06/07/2020 12:00:00 AM EDT UNK completed [facility] Cigarettes smoked current (pack per day) - Reported 06/08/19 12:00:00 AM EDT UNK completed [facility] Smoking 06/07/2020 12:00:00 AM EDT Former smoker completed Former smoker [facility] Alcohol intake 01/19/2020 12:00:00 AM EST No completed [facility] Cigarette pack-years 01/19/2020 12:00:00 AM EST UNK completed [facility] Cigarettes smoked current (pack per day) - Reported 01/19/20 20 12:00:00 AM EST UNK completed [facility] Smoking 01/19/2020 12:00:00 AM EST Former smoker completed Former smoker [facility] Vital Signs ID Date Data Source UNK Name Value Range Interpretation Code Description Data Source(s) Respiratory rate 25 /min 25 /min [facility] ( [facility] Heart rate 75 /min 75 /min [facility] ([facility] Systolic blood pressure 87 [...] 95 % [facility] ([facility] Golden body weight 105 [lb_av] 105 [lb_av] [facility] T ([facility] Body temperature 96.9 [degF] 96.9 [degF] [facility] ([facility]) Body height 61.5 [in_i] 61.5 [in_i] [facility] ([facility]) 5'1.50" Body weight 228.00 [lb_av] 228.00 [lb_av] [facility] T ([facility]) Body mass index (BMI) [Ratio] 42.4 kg/m2 42.4 k g/m2 [facility] ([facility]) Systolic blood pressure 124 mm[Hg] 124 mm[Hg] M [facility] ([facility]) Diastolic blood pressure 62 mm[Hg] 62 mm[Hg] [facility] ([facility]) Heart rate 72 /min 72 /min [facility] ([facility]) Oxygen saturation in Arterial blood by Pulse oximetry 96 % 96 % [facility] ([facility]) Body height 62 [in_i] 62 [in_i] [facility] ([facility]) 5'2" Body weight 227.00 [lb_av] 227.00 [lb_av] [facility] T ([facility]) Body mass index (BMI) [Ratio] 41.5 kg/m2 41.5 k g/m2 [facility] ([facility]) Golden body weight 110 [lb_av] 110 [lb_av] [facility] T ([facility]) Body weight 102.967 kg 102.967 kg [facility] ([facility]) Body surface area Derived from formula 2.02 m2 2.02 m2 [facility] ([facility]) Body temperature 97.3 [degF] 97.3 [degF] [facility] [...] 96 % [facility] ([facility] Golden body weight 105 [lb_av] 105 [lb_av] [facility] T ([facility] Body mass index (BMI) [Ratio] 43.7 kg/m2 43.7 k g/m2 [facility] ([facility] Systolic blood pressure 107 mm[Hg] 107 mm[Hg] M [facility] ([facility] Golden body weight 105 [lb_av] 105 [lb_av] [facility] ([facility] Heart rate 100 /min 100 /min [facility] ([facility] Body temperature 96.7 [degF] 96.7 [degF] [facility] ([facility] Body mass [...] blood pressure 77 mm[Hg] 77 mm[Hg] [facility] ([facility] ) Systolic blood pressure 147 mm[Hg] 147 mm[Hg] M [facility] ([facility] ) Heart rate 70 /min 70 /min [facility] ([facility]) Body temperature 97.1 [degF] 97.1 [degF] [facility] ([facility]) Body mass index (BMI) [Ratio] 43.9 kg/m2 43.9 k g/m2 [facility] ([facility]) Golden body weight 110 [lb_av] 110 [lb_av] [facility] T ([facility]) Body weight 108.864 kg 108.864 [facility] Oxygen saturation in Arterial blood by Pulse oximetry 93 % 93 % [facility] ([facility]) Respiratory rate 18 /min 18 /min [facility] ( [facility]) Body height 62 [in_i] 62 [in_i] [facility] ([facility]) 5'2" Body weight 240.00 [lb_av] 240.00 [lb_av] [facility] T ([facility]) Body surface area Derived from formula 2.07 m2 2.07 m2 [facility] ([facility]) Oxygen saturation in Arterial blood by Pulse oximetry 100 % 100 % [facility] ([facility]) Respiratory rate 20 /min 20 /min [facility] ( [facility]) Body temperature 97.8 [degF] 97.8 [degF] [facility] ([facility]) Body height 62 [in_i] 62 [in_i] [facility] 5'2" Body weight 240.00 [lb_av] 240.00 [lb_av] [facility] ([facility]) Body mass index (BMI) [Ratio] 43.9 kg/m2 43.9 k g/m2 [facility] ([facility]) Golden body weight 110 [lb_av] 110 [lb_av] [facility] T ([facility]) Body weight 108.864 kg 108.864 kg [facility] ([facility]) Body surface area Derived from formula 2.07 m2 2.07 m2 [facility] ([facility]) Heart rate 85 /min 85 /min [facility] ([facility]) Systolic blood pressure 126 mm[Hg] 126 mm[Hg] [facility] ([facility] ) Diastolic blood pressure 65 mm[Hg] 65 mm[Hg] [facility] ([facility]) Systolic blood pressure 120 mm[Hg] 120 mm[Hg] [facility] Diastolic blood pressure 60 mm[Hg] 60 mm[Hg] [facility] Heart rate 93 /min 93 /min [facility] Body height 157.5 cm 157.5 cm [facility] Body weight 107.502 kg 107.502 kg [facility] Body mass index (BMI) [Ratio] 43.35 kg/m2 43.35 kg/m2 [facility] Oxygen saturation in Arterial blood by Pulse oximetry 93 % 93 % [facility] Systolic blood pressure 130 mm[Hg] 130 mm[Hg] [facility] ([facility] ) Heart rate 97 /min 97 /min [facility] ([facility], ) Oxygen saturation in Arterial blood by Pulse oximetry 94 % 94 % [facility] ([facility] ) Body height 62 [in_i] 62 [in_i] [facility] ([facility]) 5'2" Body weight 240.00 [lb_av] [facility].00 [facility]av[facility] Body mass index (BMI) [Ratio] 43.9 kg/m2 43.9 k g/m2 [facility] ([facility] ) Golden body weight 110 [lb_av] 110 [lb_av] [facility] T ([facility]) Body weight 108.864 kg 108.864 kg [facility] ([facility]) Body surface area Derived from formula 2.07 m2 2.07 m2 [facility] ([facility]) Diastolic blood pressure 70 mm[Hg] 70 mm[Hg] [facility] ([facility]) Heart rate 74 /min 74 /min [facility] ([facility] Systolic blood pressure 119 mm[Hg] 119 mm[Hg] [facility] ([facility] Diastolic blood pressure [...] 95 % [facility] ([facility] Golden body weight 105 [lb_av] 105 [lb_av] [facility] ([facility] Golden body weight 105 [lb_av] 105 [lb_av] [facility] ([facility] Body weight 247.38 [...] [facility] ([facility] 5'1.50" Body mass index (BMI) [Ratio] 46.0 kg/m2 46.0 k g/m2 [facility] ([facility] Body weight 208.25 [lb_av] 208.25 [lb_av] [facility] ([facility] Oxygen saturation in Arterial blood by Pulse oximetry 96 % 96 % [facility] ([facility] Golden body weight 105 [lb_av] 105 [lb_av] [facility] [...] Systolic blood pressure 132 mm[Hg] 132 mm[Hg] [facility] Diastolic blood pressure 60 mm[Hg] 60 mm[Hg] [facility] Heart rate 93 /min 93 /min [facility] Body height 157.5 cm 157.5 cm [facility] Body weight 113.853 kg 113.853 kg [facility] Body mass index (BMI) [Ratio] 45.91 kg/m2 45.91 kg/m2 [facility] Oxygen saturation in Arterial blood by Pulse oximetry 98 % 98 % [facility] Systolic blood pressure 108 mm[Hg] 108 [...] 94 % [facility] ([facility] Golden body weight 105 [lb_av] 105 [lb_av] MED[facility] [...] % [facility] ([facility] Body height 61.5 [in_i] 61.5 [in_i] [facility] ([facility] 5'1.50" Golden body weight 105 [lb_av] 105 [lb_av] [facility] T ([facility] Body mass index (BMI) [Ratio] 47.1 kg/m2 47.1 k g/m2 [facility] ([facility] Body weight 253.38 [lb_av] 253.38 [lb_av] [facility] ([facility] Oxygen saturation in Arterial blood by Pulse oximetry 94 % 94 % [facility] ([facility] on room air Golden body weight 105 [lb_av] 105 [lb_av] MED[facility] [...] ([facility] 5'1.50" Body weight 251.38 [lb_av] 251.38 [lb_av] [facility] ([facility] Body mass index (BMI) [Ratio] 49.4 kg/m2 49.4 k g/m2 [facility] ([facility] Systolic blood pressure 116 mm[Hg] 116 mm[Hg] M [facility] ([facility] Diastolic blood pressure 65 mm[Hg] 65 mm[Hg] [facility] ([facility] Heart rate 83 /min 83 /min [facility] ([facility] Body temperature 97.2 [degF] 97.2 [degF] [facility] ([facility] Respiratory rate 24 /min 24 /min [facility] ( [facility] Body height 61.5 [in_i] 61.5 [in_i] [facility] ([facility] 5'1.50" Body weight 266.00 [lb_av] 266.00 [lb_av] [facility] ([facility] Oxygen saturation in Arterial blood by Pulse oximetry 95 % 95 % [facility] ([facility] Golden body weight 105 [lb_av] 105 [lb_av] [facility] ([facility] Body height 61.5 [in_i] 61.5 [in_i] [facility] ([facility] 5'1.50" Heart rate 90 /min 90 /min [facility] ([facility] Shiv[facility] Body weight 264.38 [lb_av] 264.38 [...] /min [facility] ( [facility] Golden body weight 105 [lb_av] 105 [lb_av] [facility] ([facility] Body mass index (BMI) [Ratio] 49.1 kg/m2 49.1 k g/m2 [facility] ([facility] Patient Treatment Plan of Care Planned Activity Planned Date Details Description Data Source (s) torsemide 20 MG Oral Tablet 01/12/2020 12:00:00 AM [facility] Metformin hydrochloride 500 MG Oral Tablet 01/11/2020 12:00:00 AM E [facility] Bacitracin 0.5 UNT/MG / Neomycin 0.0035 MG/MG / Polymyxin B 10 UNT/MG Topical Ointment 12/27/2019 12:00:00 AM EST [facility] Albuterol 0.833 MG/ML / Ipratropium [place] 0.167 MG/M L Inhalant Solution 12/27/2019 12:00:00 AM EST [facility] Fluconazole 100 MG Oral Tablet 12/08/2019 12:00:00 AM EDT [facility] Prednisone 5 MG Oral Tablet 06/25/2019 12:00:00 AM EDT [facility] potassium chloride SA (K-DUR,ISHAANOR-CON) 20 MEQ tablet 020 12:00:00 AM EDT [facility] Furosemide 40 MG Oral Tablet 06/11/2019 12:00:00 AM EDT [facility] tizanidine 4 MG Oral Tablet [facility] 60 ACTUAT Fluticasone propionate 0.5 MG/ ACTUAT / salmeterol 0.05 MG/ACTUAT Dry Powder Inhaler [facility]
[2021-01-21] MEDS ORDERED: FLUCONAZOLE 50MG TABLET PO ONE (21:20)
[2021-01-21] MEDS ORDERED: NYST1POW9 TOP (21:25)
[2021-01-21] MEDS ORDERED: DIFL150T PO (21:25)
[2021-01-21 21:42] VITALS: BP 128/88
== END 2021-01-21 22:15 | disposition home or self-care (01) ==
LOC: M ED 17:57
DX: B37.49 Other urogenital candidiasis (principal); B37.3 Candidiasis of vulva and vagina; I50.9 Heart failure, unspecified; E11.9 Type 2 diabetes mellitus without complications; Z80.3 Family history of malignant neoplasm of breast; Z79.01 Long term (current) use of anticoagulants; Z79.899 Other long term (current) drug therapy; Z88.0 Allergy status to penicillin; Z88.2 Allergy status to sulfonamides; Z88.5 Allergy status to narcotic agent; Z88.8 Allergy status to other drugs, medicaments and biological substances

== ENCOUNTER 2021-01-23 20:47 | Emergency (ER) | payer MEDICARE, OTHER, MEDICAID ==
[~2021-01-23] VITALS: Ht 157.5 cm; Wt 113.6 kg
[~2021-01-23 20:47] MED LIST changes: +DIFL150T PO; +NYST1POW9 TOP
[2021-01-23 20:48] VITALS: BP 120/57
--- OUTSIDE RECORDS SUMMARY | 2021-01-23 20:57 | CCD ---
Author Author [facility] Organization [facility] Address Unknown Phone Unavailable Care Team Providers Care Grip Name Role Phone Dusty Monika Noland [facility], PA-C Unavailable Unavailabl e [facility], [facility] Un[facility] Un[facility] e [facility], PA[facility]C Unavailable Unavailabl e Fish Monika [facility], PA-C Unavailable Unavailabl e Fish Monika [facility], PA-C Unavailable Unavailabl e Fish Monika [facility], PA-C Unavailable Unavailabl e Fish, Monika [facility], PA-C Unavailable Unavailabl e Fish, Monika [facility], PA-C Unavailable Unavailabl e Fish Monika [facility], PA-C Unavailable Unavailabl e Fish Monika [facility], PA-C Unavailable Unavailabl e Fish, [facility], PA-C Unavailable Unavailabl e Fish, [facility], PA-C Unavailable Unavailabl e Fish, [facility], PA-C Unavailable Unavailabl e Fish, [facility], PA-C Unavailable Unavailabl e Fish, [facility], PA-C Unavailable Unavailabl e Fish, [facility], PA-C Unavailable Unavailabl e Fish, [facility], PA-C Unavailable Unavailabl e Fish, [facility], PA-C Unavailable Unavailabl e Fish, [facility], PA-C Unavailable Unavailabl e Fish, [facility], PA-C Unavailable Unavailabl e Fish, [facility], PA-C Unavailable Unavailabl e Fish, [facility], PA-C Unavailable Unavailabl e Fish, [facility], PA-C Unavailable Unavailabl e Fish, [facility], PA-C Unavailable Unavailabl e Fish, [facility], PA-C Unavailable Unavailabl e Fish, [facility], PA-C Unavailable Unavailabl e Fish, [facility], PA-C Unavailable Unavailabl e Fish, [facility], PA-C Unavailable Unavailabl e Fish, [facility], PA-C Unavailable Unavailabl e Fish, [facility], PA-C Unavailable Unavailabl e Fish, [facility], PA-C Unavailable Unavailabl e Fish, [facility], PA-C Unavailable Unavailabl e Fish, [facility], PA-C Unavailable Unavailabl e Fish, [facility], PA-C Unavailable Unavailabl e Fish, [facility], PA-C Unavailable Unavailabl e NAVEEN JACKSON MD [...] RENETTA, NAVEEN OSMAN Unavailable Unavailable RENETTA, NAVEEN OMSAN Unavailable Unavailable RENETTA, NAVEEN OSMAN Unavailable Unavailable [...] Unavailable Unavailable RENETTA, NAVEEN OSMAN Unavailable Unavailable MollisonJeff MD Unavailable Unavailable Mollison, Jeff Hernández MD Unavailable Unavailable MollisonJeff MD Unavailable Unavailable MollisonJeff MD Unavailable Unavailable MollisonJeff MD Unavailable Unavailable MollisonJeff MD Unavailable Unavailable MollisonJeff MD Unavailable Unavailable MollisonJeff MD Unavailable Unavailable MollisonJeff MD Unavailable Unavailable MollisonJeff MD Unavailable Unavailable MollisonJeff MD Unavailable Unavailable MollisonJeff MD Unavailable Unavailable MollJeff escobar MD Unavailable Unavailable MollJeff escobar MD Unavailable Unavailable MollisonJeff MD Unavailable Unavailable MollisonJeff MD Unavailable Unavailable MollisonJeff MD Unavailable Unavailable MollisonJeff MD Unavailable Unavailable MollisonJeff MD Unavailable Unavailable MollisonJeff MD Unavailable Unavailable MollJeff escobar MD Unavailable Unavailable MollJeff escobar MD Unavailable Unavailable MollJeff escobar MD Unavailable Unavailable MollisonJeff MD Unavailable Unavailable MollisonJeff MD Unavailable Unavailable MollisonJeff MD Unavailable Unavailable MollisonJeff MD Unavailable Unavailable Mollison, Jeff Hernández MD Unavailable Unavailable Mollison, Jeff Hernández MD Unavailable Unavailable Mollison, Jeff Hernández MD Unavailable Unavailable Mollison, Jeff Hernández MD Unavailable Unavailable MD LENNY FALCON Unavailable Unavailable Pleskach, Criselda PAINTING SUPERVISOR Unavailable Unavailable Pleskach, Criselda PAINTING SUPERVISOR Unavailable Unavailable Pleskach, Criselda PAINTING SUPERVISOR Unavailable Unavailable Pleskach, Criselda PAINTING SUPERVISOR Unavailable Unavailable Pleskach, Criselda PAINTING SUPERVISOR Unavailable Unavailable Pleskach, Criselda PAINTING SUPERVISOR Unavailable Unavailable Pleskach, Criselda PAINTING SUPERVISOR Unavailable Unavailable Pleskach, Criselda PAINTING SUPERVISOR Unavailable Unavailable Pleskach, Criselda PAINTING SUPERVISOR Unavailable Unavailable Pleskach, Criselda PAINTING SUPERVISOR Unavailable Unavailable Pleskach, Criselda PAINTING SUPERVISOR Unavailable Unavailable Pleskach, Criselda PAINTING SUPERVISOR Unavailable Unavailable Pleskach, Criselda PAINTING SUPERVISOR Unavailable Unavailable Pleskach, Criselda PAINTING SUPERVISOR Unavailable Unavailable Pleskach, Criselda PAINTING SUPERVISOR Unavailable Unavailable Pleskach, Criselda PAINTING SUPERVISOR Unavailable Unavailable Pleskach, Criselda PAINTING SUPERVISOR Unavailable Unavailable Pleskach, Criselda PAINTING SUPERVISOR Unavailable Unavailable Pleskach, Criselda PAINTING SUPERVISOR Unavailable Unavailable Pleskach, Criselda PAINTING SUPERVISOR Unavailable Unavailable Pleskach, Criselda PAINTING SUPERVISOR Unavailable Unavailable Pleskach, Criselda PAINTING SUPERVISOR Unavailable Unavailable Pleskach, Criselda PAINTING SUPERVISOR Unavailable Unavailable Pleskach, Criselda PAINTING SUPERVISOR Unavailable Unavailable Pleskach, Criselda PAINTING SUPERVISOR Unavailable Unavailable Pleskach, Criselda PAINTING SUPERVISOR Unavailable Unavailable Pleskach, Criselda PAINTING SUPERVISOR Unavailable Unavailable Pleskach, Criselda PAINTING SUPERVISOR Unavailable Unavailable Pleskach, Criselda PAINTING SUPERVISOR Unavailable Unavailable Pleskach, Criselda PAINTING SUPERVISOR Unavailable Unavailable Pleskach, Criselda PAINTING SUPERVISOR Unavailable Unavailable Pleskach, Criselda PAINTING SUPERVISOR Unavailable Unavailable Pleskach, Criselda PAINTING SUPERVISOR Unavailable Unavailable Pleskach, Criselda PAINTING SUPERVISOR Unavailable Unavailable Pleskach, Criselda PAINTING SUPERVISOR Unavailable Unavailable Pleskach, Criselda PAINTING SUPERVISOR Unavailable Unavailable Pleskach, Criselda PAINTING SUPERVISOR Unavailable Unavailable Pleskach, Criselda PAINTING SUPERVISOR Unavailable Unavailable Pleskach, Criselda PAINTING SUPERVISOR Unavailable Unavailable Pleskach, Criselda PAINTING SUPERVISOR Unavailable Unavailable Pleskach, Criselda PAINTING SUPERVISOR Unavailable Unavailable Pleskach, Criselda PAINTING SUPERVISOR Unavailable Unavailable Pleskach, Criselda PAINTING SUPERVISOR Unavailable Unavailable Pleskach, Criselda PAINTING SUPERVISOR Unavailable Unavailable Km Kathleen MD Unavailable Unavailable [...] Unavailable Rechlin, P Km DO Unavailable Unavailable MD DARYL NAILS Unavailable Unavailable Vaneenenaam, Hazel Mcfarland MD Unavailable Unavailable Vaneenenaam, Hazel Mcfarland MD Unavailable Unavailable Vaneenjamelam, Hazel Mcfarland MD Unavailable Unavailable Vaneenjamelam, Hazel Mcfarland MD Unavailable Unavailable Vaneenjamelam, aHzel Mcfarland MD Unavailable Unavailable Vaneenjamelam, Hazel Mcfarland MD Unavailable Unavailable Vaneenjamelam, Hazel Mcfarland MD Unavailable Unavailable VaneenHazel kent MD Unavailable Unavailable Vanfiliberto, Hazel Mcfarland MD Unavailable Unavailable VanHazel de los santos MD Unavailable Unavailable Vaneenyoli, Hazel Mcfarland MD Unavailable Unavailable VaneenenaamHazel MD Unavailable Unavailable Vaneenenaam, Hazel Mcfarland MD Unavailable Unavailable VaneenjamelamHazel MD Unavailable Unavailable VanHazel de los santos MD Unavailable Unavailable VanHazel de los santos MD Unavailable Unavailable VanHazel de los santos MD Unavailable Unavailable Vanfiliberto, Hazel Mcfarland MD Unavailable Unavailable VaneenjamelamHazel MD Unavailable Unavailable Vaneenjamelam, Hazel Mcfarland MD Unavailable Unavailable VanHazel de los santos MD Unavailable Unavailable Hazel Lombardo MD Unavailable Unavailable Hazel Lombardo MD Unavailable Unavailable VanHazel de los santos MD Unavailable Unavailable Vaneenjamelam, Hazel Mcfarland MD [...] Unavailable Vaneenenaam, Hazel Mcfarland MD Unavailable Unavailable Re-disclosure Warning The records that [...] law may result in a fine or mcfp sentence or both. A general authorization for the release of medical or other information is NOT sufficient authorization for further disc losure. Family History Family Member Name Family Member Gender Family Member Status Date o f Status Description Data Source(s) Unknown Male Problem [facility] ([facility] Unknown Male Problem [facility] ([facility] in 1985 Unknown Unknown Problem [facility] ([facility]) Unknown Male Problem [facility] ([facility] Encounters Encounter Providers Location Date Indications Data Source(s ) Outpatient P.CT-SJP.SYR 01/15/2021 09:26:15 AM EST [facility] Outpatient Attender: Criselda Herrera [facility] Main Office 10/11/2020 0 2:00:00 PM EDT [facility] ([facility] Outpatient [facility].CT-SJP.SYR 10/03/2020 01:58:55 PM EDT [facility] OFFICE OUTPATIENT VISIT 15 MINUTES Attender: Hazel aguila MD Physical Therapy 08/22/2020 10:15:00 AM EDT [facility] ([facility] ) Outpatient Attender: Km Bolanos/Vipul/Alex/Chauncey ndamauri 08/15/2020 11:00:00 AM EDT [facility] ([facility] Office Visit Attender: Nuzhat QUEZADA PA-C Physical Therapy 08/08/2020 03:45:00 PM EDT [facility] ([facility]) Outpatient Attender: Nuzhat QUEZADA PA-C Physical Therapy 08/07/2020 01:30:00 PM EDT [facility] ([facility] ) Outpatient Attender: Criselda Herrera [facility] Main Office 07/31/2020 1 1:00:00 AM EDT [facility] ([facility] Outpatient Attender: Criselda Herrera [facility] Main Office 07/12/2020 0 2:00:00 PM EDT [facility] ([facility] Outpatient SJИрина-SJИрина 06/24/2020 04:06:08 PM EDT [facility] Outpatient SJP.ZAIDA-SJP.ZAIDA 06/22/2020 01:43:06 PM EDT [facility] Outpatient Attender: Km Hyman/Vipul/Alex/Rein dl 06/21/2020 01:30:00 PM EDT [facility] ([facility] Outpatient Attender: Edgar Hyman/Vipul/Alex/Re indl 06/02/2020 01:15:00 PM EDT [facility] ([facility] Outpatient Attender: NAVEEN JACKSON MD Ирина.ZAIDA-SJP.ZAIDA 01:50:15 PM EDT - 05/26/2020 02:22:58 PM EDT [facility] Outpatient Attender: Jeffy DIANA Physical Therapy 01:00:00 PM EDT [facility] ([facility]) Outpatient Attender: Km Bolanos/Vipul/Alex/Chauncey ndl 05/02/2020 10:00:00 AM EDT [facility] ([facility] Outpatient Attender: Km Bolanos/Vipul/Alex/Chauncey ndl 04/12/2020 09:00:00 AM EST [facility] ([facility] Outpatient Attender: Criselda Herrera [facility] Main Office 04/10/2020 0 8:00:00 AM EST [facility] ([facility] Office Visit Attender: Jeffy DIANA Physical Therapy 12:00:00 PM EST [facility] ([facility]) Outpatient Attender: Criselda Herrera [facility] Main Office 03/22/2020 0 2:15:00 PM EST [facility] ([facility] Office Visit Attender: Jeffy DIANA Physical Therapy 12:45:00 PM EST [facility] ([facility]) Outpatient Attender: Km Bolanos/[place]/Alex/Chauncey ndl 02/14/2020 07:30:00 AM EST [facility] ([facility] Outpatient Attender: Criselda Herrera [facility] Main Office 01/31/2020 1 0:45:00 AM EST [facility] ([facility] Outpatient Attender: Criselda Herrera [facility] Main Office 01/19/2020 0 1:00:00 PM EST [facility] ([facility] Outpatient Attender: NAVEEN FLANAGAN.ZAIDA-[facility].ZAIDA 0 12:00:00 AM EST - 01/19/2020 04:09:59 PM EST [facility] Outpatient Attender: Criselda Herrera [facility] Main Office 01/11/2020 0 2:45:00 PM EST [facility] ([facility] Outpatient Attender: Km Bolanos/Vipul/Alex/Chauncey nd 12/21/2019 07:30:00 AM EST [facility] ([facility] Outpatient Attender: Criselda Herrera [facility] Main Office 12/16/2019 0 1:15:00 PM EDT [facility] ([facility] Outpatient Attender: Criselda Herrera [facility] Main Office 12/02/2019 0 4:00:00 PM EDT [facility] ([facility] Inpatient Attender: MD EILEEN Tom uri: MD HAFSA Grajeda: MD LENNY Negron: RADHA BRICEÑO MDAdmitter: MD LENNY FALCON [id number] 07/30/2019 07:36:00 PM EDT [facility] Immunizations Vaccine Date Status Description Data Source(s) Moderna Sars-(Covid-19) vaccine, mRNA, LNP-S, PF, 100 mcg/ 0.5 mL 05/24/2020 12:00:00 AM EDT completed [facility] ([facility] COVID-19 VACCINE Moderna 05/24/2020 12:00:00 AM EDT completed [facility] Vaccine Series Complete: YESThis Data wa s Submitted to [facility] Via [employer]. COVID-19 VACCINE Moderna 04/19/2020 12:00:00 AM EST completed [facility] Vaccine Series Complete: NOThis Data was Submitted to [facility] Via [employer]. Moderna Sars-(Covid-19) vaccine, mRNA, LNP-S, PF, 100 mcg/ 0.5 mL 04/18/2020 11:00:00 PM EST completed [facility] Medications Medication Brand Name Start Date Product Form Dose Route Admi nistrative Instructions Pharmacy Instructions Status Indications Reaction Description Data Source(s) Nystatin 100 UNT/MG Topical Powder Nystatin 01/22/2021 12:00:00 AM EST active [facility] ([facility] Levofloxacin 500 MG Oral Tablet Levofloxacin 10/11/2020 12:00:00 AM EDT completed [facility] ([facility] Walker 08/25/2020 12:00:00 AM EDT active [facility] ([facility] Medrol Medrol 08/07/2020 12:00:00 AM EDT active [facility] ([facility] ) Fluticasone Propionate Fluticasone [...] AM E ST ORAL completed [facility] ([facility] Acetaminophen 325 MG / Oxycodone Hydrochloride 5 MG Or al Tablet Oxycodone-Acetaminophen 01/12/2020 12:00:00 AM EST ORAL completed [facility] ([facility] torsemide 20 MG Oral Tablet torsemide (DEMADEX) 20 MG tablet torsemide (DEMADEX) 20 MG tablet 01/12/2020 12:00:00 AM EST 20 mg Oral acti ve Take 20 mg by mouth 2 (two) times a day [facility] Metformin hydrochloride 500 MG Oral Tablet metFORMIN ( GLUCOPHAGE) 500 MG tablet metFORMIN (GLUCOPHAGE) 500 MG tablet 01/11/2020 12:00:00 AM EST active [facility] Bacitracin 0.5 UNT/MG / Neomycin 0.0035 MG/MG / Polymyxin B 10 UNT/MG Topical Ointment Qsoqcxgx-Sfrdgauacg-Gaawxnmen (FIRST AID ANTIBIOTIC) 3.5-400-5000 MG- UNIT OINT Okokfpud-Evravejdfk-Rcrnoafyt (FIRST AID ANTIBIOTIC) 3.5-400-5000 MG- UNIT OINT 12/27/2019 12:00:00 AM EST active [facility] Albuterol 0.833 MG/ML / Ipratropium Brom danial 0.167 MG/ML Inhalant Solution ipratropium-albuterol (DUO-NEB) 0.5-2.5 mg/mL nebulizer ipratropium-albuterol (DUO-NEB) 0.5-2.5 mg/mL nebulizer 12/27/2019 12:00:00 AM EST active [facility] Metolazone 2.5 MG Oral Tablet Metolazone 12/08/2019 12:00:00 AM EDT ORAL active [facility] ([facility] torsemide 20 MG Oral Tablet Torsemide 12/08/2019 12:00:00 AM EDT active [facility] ([facility] Fluconazole 100 MG Oral Tablet fluconazole (DIFLUCAN) 100 MG tablet fluconazole (DIFLUCAN) 100 MG tablet 12/08/2019 12:00:00 AM EDT aborted [facility] torsemide 10 MG Oral Tablet Torsemide 11/27/2019 [...] [facility] Docusate Sodium 50 MG / sennosides, JAIL 8.6 MG Oral Ta blet Senna-Docusate Sodium [...] tablet (5 mg total) by mouth daily [facility] Chronic bronchitis, unspecified chronic bronchitis type potassium chloride SA (K-DUR,KLOR-CON) 20 MEQ tablet [id number] 06/25/2019 12:00:00 AM EDT aborted [facility] Furosemide 40 MG Oral Tablet furosemide (LASIX) 40 MG tablet furosemide (LASIX) 40 MG tablet 06/11/2019 12:00:00 AM EDT 40 mg Oral abort ed Take 1 tablet (40 mg total) by mouth 2 (two) times a day [facility] tizanidine 4 MG Oral Tablet tiZANidine (ZANAFLEX) 4 MG tablet tiZANidine (ZANAFLEX) 4 MG tablet 4 mg Oral aborted Take 4 mg by mouth every 6 (six) hours as needed [facility] 60 ACTUAT Fluticasone propionate 0.5 MG/ ACTUAT / salmeterol 0.05 MG/ACTUAT Dry Powder Inhaler fluticasone-salmeterol (ADVAIR) 500-50 MCG/DOSE DISKUS fluticasone-salmeterol (ADVAIR) 500-50 MCG/DOSE DISKUS 1 {puff} Inhalation aborted Inhale 1 puff 2 (two) amy es a day [facility] Insurance Providers Payer name Policy type / Coverage type Policy ID Covered republican ID Covered republican's relationship to sellers Policy Sellers Plan Information [facility] 121/621 [id number] [facility] [id number] SP [id number] MEDICARE [id number] SP [id number] MEDICARE [id number] Susanna [id number] E78 MEDICARE [id number] Susanna [id number] A MEDICARE [id number] SP [id number] A MEDICARE A [id number] Self [id number] [id number] MEDICARE [id number] xxxxxxxxxxx [id number] MEDICARE A [id number] Self [id number] A FOR LIFE [id number] FOR LIFE [id number] FOR LIFE U [id number] Self [id number] Spo [id number] xxxxxxxxxxx [id number] FOR LIFE U [id number] Self [id number] [place] MEDICARE [id number] Susanna [id number] For Life Medigap Part B [id number] Family Dependent [id number] Medicare [place] Primary [id number] Self [id number] For Life Reg 1 Medigap Part B [id number] Family Dependent 1 [id number] Medicare - NGS Medicare Primary [id number] [id number] Self [id number] For Life Medigap Part B [id number] [id number]33.0 Family Dependent [id number] Medicare [place] Medicare Primary [id number] 2.0.1.250966.3.227.99.2809.74443.0 Self [id number] For Life Reg 1 Medigap Part B [id number] 2.0.1.411807.3.227.99.177.87241.0 Family Dependent 1 [id number] Medicare - NGS Medicare Primary [id number] 2..1.230581.3.227.99.177.02860.0 Self [id number] MEDICARE C UNAVAILABLE [id number] S UNAVAILA BLE MEDICARE C [id number] S [id number] A FOR LIFE [id number] [facility] [id number] For Life Reg 1 Medigap Part B [id number] 2..1.313029.3.227.99.177.87841.0 Family Dependent 1 [id number] Medicare - NGS Medicare Primary [id number] 2..1.473020.3.227.99.177.96552.0 Self [id number] [place] MEDICARE PART B C [id number] S [id number] For Life Medigap Part B [id number] 2..1.115622.3.227.99.2809.44300.0 Family Dependent [id number] Medicare [place] Medicare Primary [id number] 2..1.339240.3.227.99.2809.00253.0 Self [id number] For Life Medigap Part B [id number] 2.16.840.1.432893.3.227.99.2809.36721.0 Family Dependent [id number] Medicare Up[place] Medicare Primary [id number] 2.16.840.1.569422.3.227.99.2809.84180.0 Self [id number] For Life Medigap Part B [id number] 2.16.840.1.750713.3.227.99.2809.24692.0 Family Dependent [id number] Medicare [place] Medicare Primary [id number] 2.16.840.1.142295.3.227.99.2809.38847.0 Self [id number] PI PI MEDICARE PI PI [id number] Spo [id number] For Life Medigap Part B [id number] 2.840.1.819325.3.227.99.2809.13580.0 Family Dependent [id number] Medicare [place] Medicare Primary [id number] 2.840.1.490841.3.227.99.2809.98071.0 Self [id number] For Life Reg 1 Medigap Part B [id number] 2.16840.1.133461.3.227.99.177.10018.0 Family Dependent 1 [id number] Medicare - NGS Medicare Primary [id number] 2.840.1.298307.3.227.99.177.62667.0 Self 0 [id number] For Life - [place] Medigap Part B [id number] 2.16840.1.428115.3.227.99.572.52351.0 Self [id number] Medicare (Part A) Medicare Primary [id number] 2.16840.1.754330.3.227.99.572.08964.0 Self [id number] Medicare (Part B) Medicare Primary [id number] 2.16840.1.764541.3.227.99.572.81692.0 Self 0 [id number] For Life Medigap Part B [id number] 2.16.840.1.342496.3.227.99.2809.10579.0 Family Dependent [id number] Medicare Up[place] Medicare Primary [id number] 2.16.840.1.931755.3.227.99.2809.96040.0 Self [id number] For Life - WPS Medigap Part B [id number] 2.16.840.1.511606.3.227.99.572.97471.0 Self [id number] Medicare (Part A) Medicare Primary [id number] 2.16.840.1.579255.3.227.99.572.78754.0 Self [id number] Medicare (Part B) Medicare Primary [id number] 2.16840.1.738899.3.227.99.572.50342.0 Self 0 [id number] For Life Medigap Part B [id number] 2.840.1.634088.3.227.99.2809.14661.0 Family Dependent [id number] Medicare Upstate Medicare Primary [id number] 2.840.1.876079.3.227.99.2809.21722.0 Self [id number] [facility] [id number] S [id number] For Life Medigap Part B [id number] 2.0.1.893119.3.227.99.2809.59455.0 Family Dependent [id number] Medicare Upstate Medicare Primary [id number] 2.16840.1.984975.3.227.99.2809.42194.0 Self [id number] For Life Medigap Part B [id number] 2.840.1.597580.3.227.99.2809.82453.0 Family Dependent [id number] Medicare Upstate Medicare Primary [id number] 2.840.1.322406.3.227.99.2809.65025.0 Self [id number] For Life Medigap Part B [id number] 2.16.840.1.550129.3.227.99.2809.65541.0 Family Dependent [id number] Medicare Upstate Medicare Primary [id number] 2.840.1.508591.3.227.99.2809.16382.0 Self [id number] For Life WPS Medigap Part B [id number] 2.840.1.895341.3.227.99.1767.72693.0 Self [id number] Medicare Natl Gov't Servi Medicare Primary [id number] 2.840.1.608182.3.227.99.1767.67844.0 Self [id number] For Life Medigap Part B [id number] 2.840.1.139968.3.227.99.2809.54758.0 Family Dependent [id number] Medicare Upstate Medicare Primary [id number] 20.1.722011.3.227.99.2809.92046.0 Self [id number] FOR LIFE [id number] SP [id number] For Life Medigap Part B [id number] Family Dependent Medicare [place] Medicare Primary [id number] Self FOR LIFE [id number] SP [id number] FOR LIFE [id number] SP [id number] MEDICARE [id number] SP [id number] A RETIREE MEDICAL INSURANCE PLAN [id number] SP [id number] A [facility] MEDICAID [id number] SP [id number] Y [id number] [facility] MEDICAID [id number] SP [id number] SELF PAY ONLY [id number] SP [id number] MEDICARE C [id number] S [id number] FOR LIFE O [id number] S [id number] SELF PAY [facility] [id number] HU2 [id number] [facility] [id number] S [id number] For Life Medigap Part B [id number] Family Dependent [id number] Medicare [place] Medicare Primary [id number] Self [id number] For Life Medigap Part B [id number] Family Dependent [id number] Medicare [place] Medicare Primary [id number] Self [id number] For Life Reg 1 Medigap Part B [id number] 2.16.840.1.584712.3.227.99.177.89248.0 Family Dependent 1 [id number] Medicare - NGS Medicare Primary [id number] 2.16.840.1.951988.3.227.99.177.43978.0 Self [id number] For Life Medigap Part B [id number] 2.16.840.1.473715.3.227.99.2809.03298.0 Family Dependent [id number] Medicare [place] Medicare Primary [id number] 2.16.840.1.150879.3.227.99.2809.30843.0 Self [id number] Problems, Conditions, and Diagnoses Code Display Name Description Problem Type Effective Dates Data Source(s) R91.8 Abnormal findings on diagnostic imaging of lung Abnormal findings on diagnostic imaging of lung Problem 05/02/2020 12:00:00 AM EDT [facility] ([facility], ) E11.69 Type 2 diabetes mellitus in [...] extremities Pain in both lower extr emities [id number] 01/19/2020 12:00:00 AM EST [facility] G47.33 Obstructive sleep apnea syndrome Obstructive sle ep apnea syndrome Problem 12/21/2019 12:00:00 AM EST [facility] ([facility] ) Surgeries/Procedures Procedure Description Date Indications Data Source(s) Chronic Care Management Services Ea Addl 20 Min 2020 12:00:00 AM EST [facility] Chronic Care MGMT 20 Mins Clinical Staff Time Per Calendar M [facility] 01/10/2021 12:00:00 AM EST [facility] Chronic Care Management Services Ea Addl 20 Min 2020 12:00:00 AM EDT [facility] ([facility] Chronic Care MGMT 20 Mins Clinical Staff Time Per Calendar M [facility] 11/29/2020 12:00:00 AM EDT [facility] ([facility] Chronic Care MGMT 20 Mins Clinical Staff Time Per Calendar M [facility] 10/30/2020 12:00:00 AM EDT [facility] ([facility] OFFICE OUTPATIENT VISIT 25 MINUTES 10/11/2020 12:00:00 AM EDT [facility] ([facility] Chronic Care MGMT 20 Mins Clinical Staff Time Per Calendar M [facility] 10/03/2020 12:00:00 AM EDT [facility] ([facility] Chronic Care MGMT 20 Mins Clinical Staff Time Per Calendar M [facility] 08/30/2020 12:00:00 AM EDT [facility] ([facility] OFFICE OUTPATIENT VISIT 15 MINUTES 08/22/2020 12:00:00 AM EDT [facility] ([facility]) Spirometry 08/15/2020 12:00:00 AM EDT M [facility]ENT ([facility]) OFFICE OUTPATIENT VISIT 25 MINUTES 08/15/2020 12:00:00 AM EDT [facility] ([facility]) PHYSICIAN TELEPHONE EVALUATION 11-20 MIN 08/08/2020 12 :00:00 AM EDT [facility] ([facility]) OFFICE OUTPATIENT VISIT 25 MINUTES 08/07/2020 12:00:00 AM EDT [facility] ([facility]) OFFICE OUTPATIENT VISIT 25 MINUTES 07/31/2020 12:00:00 AM EDT [facility] Chronic Care MGMT 20 Mins Clinical Staff Time Per Calendar M [facility] 07/27/2020 12:00:00 AM EDT [facility] ([facility] Chronic Care Management Services Ea Addl 20 Min 2020 12:00:00 AM EDT [facility] ([facility] Chronic Care MGMT 20 Mins Clinical Staff Time Per Calendar M [facility] 07/13/2020 12:00:00 AM EDT [facility] ([facility] Diabetic Foot Exam 07/12/2020 12:00:00 AM EDT [facility] ([facility] OFFICE OUTPATIENT VISIT 25 MINUTES 07/12/2020 12:00:00 AM EDT [facility] ([facility] OFFICE OUTPATIENT VISIT 25 MINUTES 06/21/2020 12:00:00 AM EDT [facility] ([facility]) Chronic Care Management Services Ea Addl 20 Min 2020 12:00:00 AM EDT [facility] ([facility] Chronic Care MGMT 20 Mins Clinical Staff Time Per Calendar M [facility] 06/15/2020 12:00:00 AM EDT [facility] ([facility] OFFICE OUTPATIENT NEW 45 MINUTES 06/02/2020 12:00:00 A EDT [facility] ([facility]) Chronic Care Management Services Ea Addl 20 Min 2020 12:00:00 AM EDT [facility] ([facility] Chronic Care MGMT 20 Mins Clinical Staff Time Per Calendar M [facility] 05/04/2020 12:00:00 AM EDT [facility] ([facility] X-Ray Hip Unilateral With Pelvis 2-3 Views 05/03/2020 12:00:00 AM EDT [facility] ([facility]) OFFICE OUTPATIENT VISIT 25 MINUTES 05/03/2020 12:00:00 AM EDT [facility] ([facility]) OFFICE OUTPATIENT VISIT 15 MINUTES 05/02/2020 12:00:00 AM EDT [facility] ([facility]) OFFICE OUTPATIENT VISIT 15 MINUTES 04/12/2020 12:00:00 AM EST [facility] ([facility], ) ARTHROCENTESIS ASPIR&/INJECTION MAJOR JT/BURSA 021 12:00:00 AM EST [facility] ([facility]) Mammogram 01/26/2020 12:00:00 AM EST M [facility] ([facility] ECG ROUTINE ECG W/LEAST 12 LDS W/I&R <td>POCT AMB EKG</td><td>Routine</td><td>01/19/2020 5:19 PM EST</td><td> Atrial flutter, unspecified type</td><td> </td> 01/19/2020 10:19:00 PM EST Atrial flutter, unspecified type [facility] Atrial flutter, unspecified type BLOOD COUNT COMPLETE AUTO&AUTO DIFRNTL WBC COUNT <td>C BC AND DIFFERENTIAL</td><td>Routine</td><td>12/08/2019</td><td></td><td> </td> 12/08/2019 12:00:00 AM EDT [facility] BASIC METABOLIC PANEL CALCIUM TOTAL <td>BASIC METABOLI C PANEL</td><td>Routine</td><td>12/08/2019</td><td></td><td> </td> 12/08/2019 12:00:00 AM EDT [facility] Results ID Date Data Source [id number] 01/21/2021 07:21:00 PM EST [facility] ([facility] Name Value Range Interpretation Code Description Data Luz rce(s) Supporting Document(s) Appearance, Urine RFX Laboratory test result [facility] ([facility] Color, Urine RFX Laboratory test result [facility] ([facility] PH,Urine RFX 6.0 units 5.0-9.0 [facility] ([facility] Specific [place] Ur Auto RFX 1.006 1.002-1.035 [facility] ([facility] Protein, Urine Auto RFX Laboratory test result [facility] ([facility] Glucose, Urine (Ua) Auto RFX Laboratory test result [facility] ([facility] Urobilinogen, Urine Auto RFX 0.2 mg/dL 0.0-2.0 [facility] ([facility] Ketone, Urine [...] [facility] RBC, Urine Auto RFX 0 /HPF 0-3 [facility] ([facility] WBC, Urine Auto RFX 2 /HPF 0-3 [facility] ([facility] Squam Epithelial Cell Ur Aurfx 2 /HPF 0-6 [facility] ([facility] Bacteria, Urine Auto RFX Laboratory test result [facility] ([facility] Hyaline Cast, Urine Auto RFX 0 /LPF 0-1 [facility] ID Date Data Source [id number] 01/21/2021 07:21:00 PM EST [facility] ([facility] Name Value Range Interpretation Code Description Data Lzu rce(s) Supporting Document(s) Reflex Urine Culture Laboratory test result [facility] ([facility] FULL REPORT IN LAB NOTES (e[facility] and [facility] ). NO GROWTH ID Date Data Source [id number] 01/21/2021 06:46:00 PM EST [facility] ([facility] Name Value Range Interpretation Code Description Data Luz rce(s) Supporting Document(s) Blood Culture Laboratory test result [facility] ([facility] No growth after 24 hours . All specimens observed for 5 days. Results final at that time. ID Date Data Source [id number] 01/21/2021 06:46:00 PM EST [facility] ([facility] Name Value Range Interpretation Code Description Data Luz rce(s) Supporting Document(s) C reactive protein [Mass/volume] in Serum or Plasma by High sensitivity method 3.23 mg/dL 0.00-0.30 [facility] ID Date Data Source [id number] 01/21/2021 06:46:00 PM EST [facility] ([facility] Name Value Range Interpretation Code Description Data Luz rce(s) Supporting Document(s) Glucose, Fasting 98 mg/dL 70-100 [facility] ([facility] Blood Urea Nitrogen 17 mg/dL 7-18 [facility] ([facility] Creatinine For GFR 1.45 mg/dL 0.55-1.30 [facility] ([facility] Sodium Level 140 meq/L 136-145 [facility] Glomerular Filtration Rate 37.1 [facility] ([facility] <content>Units are mL/min/1.73 m2</content>
<content></content>
<content>Chronic Kidney Disease Staging per NKF:</content>
<content></content>
<content>Stage I & II GFR >=60 Normal to Mildly Decreased</content>
<content>Stage III GFR 30- 59 Moderately Decreased</content>
<content>Stage IV GFR 15-29 Severely Decreased</content>
<content>Stage V GFR <15 Very Little GFR Left</content>
<content>ESRD GFR <15 on [employer]</content>
<content></content> Potassium Serum 4.4 meq/L 3.5-5.1 [facility] ([facility] Chloride Level 105 meq/L 98-107 [facility] ([facility] Anion Gap 7 meq/L 8-16 [facility] ([facility] Carbon Dioxide Level 28 meq/L 21-32 [facility] ([facility] Calcium Level 9.0 mg/dL 8.8-10.2 [facility] ([facility] ID Date Data Source [id number] 01/21/2021 06:46:00 PM EST [facility] ([facility] Name Value Range Interpretation Code Description Data Luz rce(s) Supporting Document(s) Ast/Sgot 7 U/L 7-37 [facility] Alt/SGPT 8 U/L 12-78 [facility] Bilirubin,Total 0.7 mg/dL 0.2-1.0 [facility] ([facility] Alkaline Phosphatase 69 U/L 45-117 [facility] ([facility] Bilirubin,Direct 0.2 mg/dL 0.0-0.2 [facility] ([facility] Total Protein 5.5 GM/DL 6.4-8.2 [facility] ([facility] Albumin 3.0 GM/DL 3.2-5.2 [facility] ([facility] Albumin/Globulin Ratio 1.2 1.2-2.2 [facility] ([facility] ID Date Data Source [id number] 01/21/2021 06:46:00 PM EST [facility] ([facility] Name Value Range Interpretation Code Description Data Luz rce(s) Supporting Document(s) Erythrocyte sedimentation rate by 2H Westergren method 28 mm/hr 0-3 0 [facility] ([facility] ID Date Data Source [id number] 01/21/2021 06:46:00 PM EST [facility] ([facility] Name Value Range Interpretation Code Description Data Luz rce(s) Supporting Document(s) White Blood Count 6.7 10 4.0-10.0 [facility] ([facility] Red Blood Count 3.52 10 4.00-5.40 [facility] ([facility] Hemoglobin 10.0 g/dL 12.0-15.5 [facility] ([facility] Mean Corpuscular Volume 92.0 fl 80.0-96.0 M [facility] ([facility] Hematocrit 32.4 % 36.0-47.0 [facility] ([facility] Mean Corpuscular HGB Conc 30.9 g/dL 32.0-36.5 [facility] ([facility] Mean Corpuscular Hemoglobin 28.4 pg 27.0-33.0 [facility] ([facility] Red Cell Distribution Width 15.3 % 11.5-14.5 [facility] ([facility] Platelet Count, Automated 119 10 150-450 [facility] ([facility] Neutrophils % 69.1 % 36.0-66.0 [facility] ([facility] Lymph % 16.1 % 24.0-44.0 [facility] ([facility] [place] % 9.5 % 2.0-8.0 [facility] ([facility] Eos % 4.5 % 0.0-3.0 [facility] ([facility] Baso % 0.5 % 0.0-1.0 [facility] ([facility] Nucleated Red Blood Cell % 0.0 % 0-0 [facility] ([facility] Immature Granulocyte % 0.3 % 0-3.0 [facility] ([facility] Neutrophils # 4.6 10 1.5-8.5 [facility] ([facility] Lymph # 1.1 10 1.5-5.0 [facility] ([facility] [place] # 0.6 10 0.0-0.8 [facility] ([facility] Eos # 0.3 10 0.0-0.5 [facility] ([facility] Baso # 0.0 10 0.0-0.2 [facility] ID Date Data Source [id number] 01/21/2021 06:46:00 PM EST [facility] ([facility] Name Value Range Interpretation Code Description Data Luz rce(s) Supporting Document(s) Lactate [Mass/volume] in Serum or Plasma 1.5 mmol/L 0.4-2.0 [facility] ([facility] Y/N query for Sepsis Lactate Rule: Y ID Date Data Source [id number] 10/18/2020 04:26:00 PM EDT [facility] ([facility] Name Value Range Interpretation Code Description Data [facility](s) Supporting Document(s) Blood Culture Laboratory test result [...] AFTER 5 DAYS ID Date Data Source [id number] 10/18/2020 04:07:00 PM EDT [facility] ([facility] Name Value Range Interpretation Code Description Data [facility](s) Supporting Document(s) Influenza A Amplification Laboratory test [...] pathogens. DISCLAIMER: Testing was performed using the [employer] SARS-CoV-2 test. This test was developed and its performance characteristics determined by [employer]. This test has not been FDA cleared [...] or revoked sooner. ID Date Data Source [id number] 10/18/2020 04:07:00 PM EDT [facility] ([facility] [...] AFTER 5 DAYS ID Date Data Source [id number] 10/18/2020 04:07:00 PM EDT [facility] Name Value Range Interpretation Code Description Data [facility]s) SARS coronavirus 2 RNA [Presence] in Res piratory specimen by TEO with probe detection NEGATIVE [facility] This lab was ordered by [facility] a nd reported by [facility]. ID Date Data Source [id number] 10/18/2020 01:47:00 PM EDT [facility] ([facility] Name Value Range Interpretation Code Description Data Luz rce(s) Supporting Document(s) White Blood Count 5.3 10 4.0-10.0 [facility] ([facility] Hemoglobin 9.7 g/dL 12.0-15.5 [facility] ([facility] Red Blood Count 3.31 10 4.00-5.40 [facility] ([facility] Mean Corpuscular Volume 93.4 fl 80.0-96.0 M [facility] ([facility] Hematocrit 30.9 % 36.0-47.0 [facility] ([facility] Mean Corpuscular Hemoglobin 29.3 pg [...] % 36.0-66.0 [facility] ([facility] [place] % 7.5 % 2.0-8.0 [facility] ([facility] Eos % 3.8 % 0.0-3.0 [facility] ([facility] Baso % 0.4 % 0.0-1.0 [facility] ([facility] Immature Granulocyte % 0.8 % 0-3.0 [facility] ([facility] Nucleated Red Blood Cell % 0.0 % 0-0 [facility] ([facility] Neutrophils # 4.0 10 1.5-8.5 [facility] ([facility] Eos # 0.2 10 0.0-0.5 [facility] ([facility] [place] # 0.4 10 0.0-0.8 [facility] ([facility] Lymph # 0.7 10 1.5-5.0 [facility] ([facility] Baso # 0.0 10 0.0-0.2 [facility] ([facility] ID Date Data Source [id number] 10/18/2020 01:47:00 PM EDT [facility] ([facility] Name Value Range Interpretation Code Description Data Luz rce(s) Supporting Document(s) CPK Creatine Phosphokinase 15 U/L 26-192 [facility] [...] <content>Troponin I Reference Interval f or Siemens [place] LOCI:</content>
<content></content>
<content>99th Percentile= 0.00-0.045 ng/ml</content>
<content></content>
<content>Risk Stratification:</content>
<content><= 0.10 ng/ml Decreased Risk for Adverse Clinical</content>
<content>Events.</content>
<content>0.10-1.50 ng/ml Increased Risk for Adverse Clinical</content>
<content>Events. Evaluation of additional</content>
<content>criterion and/or repeat testing in 2-6</content>
<content>hours is suggested to rule out myocardial</content>
<content>damage.</content>
<content>>= 1.50 ng/ml Indicative of Myocardial Injury.</content>
<content></content> ID Date Data Source [id number] 10/18/2020 01:47:00 PM EDT [facility] ([facility] Name Value Range Interpretation Code Description Data Luz rce(s) Supporting Document(s) Blood Urea Nitrogen 20 mg/dL [...] Little GFR Left</content>
<content>ESRD GFR <15 on [employer]</content>
<content></content> Creatinine For GFR 1.34 mg/dL 0.55-1.30 [facility] [...] [facility] ID Date Data Source [id number] 10/18/2020 01:47:00 PM EDT [facility] ([facility] Name Value Range Interpretation Code Description Data Luz rce(s) Supporting Document(s) Natriuretic peptide.B prohormone N-Terminal [Mass/volu me] in Serum or Plasma 427 pg/mL [facility] C reactive protein [Mass/volume] in Serum or Plasma by High sensitivity method 1.22 mg/dL 0.00-0.30 [facility] ([facility] Erythrocyte sedimentation rate by 2H Westergren method 27 mm/hr 0-3 0 [facility] ([facility] ID Date Data Source [id number] 10/11/2020 03:31:00 PM EDT [facility] ([facility] Name Value Range Interpretation Code Description Data Luz rce(s) Supporting Document(s) Malb Urine Siemens 9.0 mg/L [facility] ([facility] Creatinine, Urine 52.4 mg/dL [facility] ([facility] Moose/Creat Ratio 17.1 MCG/MG 0.0-30.0 [facility] ([facility] THE [employer] STATES THAT MICROALBUMINURIA IS PRESENT IF THE MICROALBUMIN/CREATININE RATIO EXCEEDS 30 MCG/MG. THE THRESHOLD FOR CLINICAL ALBUMINURIA IS REACHED AT 300 MCG/MG. THE CLASSIFICATION OF A PATIENT SHOULD BE BASED UPON AT LEAST 2 OF 3 ABNORMAL RESULTS ON SPECIMENS COLLECTED WITHIN A 3 TO 6 MONTH TIME FRAME. ID Date Data Source [id number] 10/11/2020 03:31:00 PM EDT [facility] ([facility] Name Value Range Interpretation Code Description Data Luz rce(s) Supporting Document(s) Triglycerides Level 75 mg/dL [facility] ([facility] LDL Cholesterol 37 mg/dL [facility] ([facility] Cholesterol Level 98 mg/dL [facility] ([facility] HDL Cholesterol 46 mg/dL [facility] ([facility] Cholesterol Risk Ratio 2.130 [facility] ([facility] Non-HDL-C 52 mg/dL [facility] ([facility] ID Date Data Source [id number] 10/11/2020 03:31:00 PM EDT [facility] ([facility] Name Value Range Interpretation Code Description Data Luz rce(s) Supporting Document(s) Hemoglobin A1c/Hemoglobin.total in Blood 5.9 % [facility] ([facility] <content>REFERENCE RANGES:</content><br/ ><content></content>
<content><=5.6% NORMAL</content>
<content>5.7-6.4% SUGGESTS IMPAIRED GLUCOSE METABOLISM/PREDIABETIC</content>
<content>>= 6.5% ABNORMAL</content>
<content></content> Estimated Average Glucose 123 mg/dL 60-110 [facility] ([facility] ID Date Data Source [id number] 10/11/2020 03:31:00 PM EDT [facility] ([facility] [...] Little GFR Left</content>
<content>ESRD GFR <15 on [employer]</content>
<content></content> Carbon Dioxide Level 30 meq/L 21-32 [facility] ([facility] Chloride Level 104 meq/L 98-107 [facility] ([facility] Calcium Level 8.7 mg/dL 8.8-10.2 [facility] ([facility] Anion Gap 5 meq/L 8-16 [facility] ([facility] Ast/Sgot 5 U/L 7-37 [facility] ([facility] Alkaline Phosphatase 56 U/L 45-117 [facility] ([facility] Alt/SGPT 11 U/L 12-78 [facility] ([facility] Albumin 2.8 GM/DL 3.2-5.2 [facility] ([facility] Total Protein 5.2 GM/DL 6.4-8.2 [facility] ([facility] Bilirubin,Total 1.0 mg/dL 0.2-1.0 [facility] ([facility] Albumin/Globulin Ratio 1.2 1.2-2.2 [facility] ([facility] ID Date Data Source [id number] 08/15/2020 11:05:00 AM EDT [facility] ([facility]) Name Value Range Interpretation Code Description Data Luz rce(s) Supporting Document(s) FVC-Pred 2.45 L [facility] ([facility], ) PDFReport Laboratory test result [facility] ([facility]) FVC-%Pred-Pre 63 L [facility] ([facility]) FVC-LLN 1.80 L [facility] ([facility]) FVC-Pre 1.55 L [facility] ([facility]) Fev1-Pre 1.31 L [facility] ([facility]) Fev1-Pred 1.82 L [facility] ([facility]) Fev1-%Pred-Pre 71 L [facility] ([facility], ) Fev6-Pred 2.32 L [facility] ([facility]) Fev1-LLN 1.27 L [facility] ([facility]) Fev6-%Pred-Pre 66 L [facility] ([facility]) Fev6-Pre 1.55 L [facility] ([facility]) Zsq4trm-Wknh 74 % [facility] ([facility]) Qio7bvt-Zmg 84 % [facility] ([facility]) Fev6-LLN 1.68 L [facility] ([facility]) Fyy9oaw-VZF 64 % [facility] ([facility]) Tld9rwk-%Pred-Pre 113 % [facility] ([facility]) Wjm6wuv-%Pred-Pre 105 % [facility] ([facility]) Ayl2mwi-Iyv 100 % [facility] ([facility]) Mvz4wgq-Jbld 95 % [facility] ([facility]) FEFMax-Pred 4.68 L/E/sec [facility] ([facility]) FEFMax-Pre 3.53 L/E/sec [facility] ([facility]) FEFMax-%Pred-Pre 75 L/E/sec [facility] ([facility]) FEFMax-LLN 3.07 L/E/sec [facility] ([facility]) Eim8841-Uhnx 1.40 L/E/sec [facility] ([facility]) Vgk1106-YSY 0.23 L/E/sec [facility] ([facility]) Nsm9355-Twd 1.51 L/E/sec [facility] ([facility]) Cuw1266-%Pred-Pre 108 L/E/sec [facility] ([facility]) ExpTime-Pre 4.54 sec [facility] ([facility]) Iqf8gie2-Fzqs 78 % [facility] ([facility]) Ljo8bfe2-Luo 84 % [facility] ([facility]) Jow3xgl1-%Pred-Pre 108 % [facility] ([facility]) Unm4ooc8-GXU 69 % [facility] ([facility]) ID Date Data Source [id number] 08/03/2020 02:55:00 PM EDT [facility] ([facility] L[facility] [...] Little GFR Left</content>
<content>ESRD GFR <15 on [employer]</content>
<content></content> Chloride Level 97 meq/L 98-107 [facility] [...] [facility] ID Date Data Source [id number] 07/31/2020 01:30:00 PM EDT [facility] ([facility] Name Value Range Interpretation Code Description Data Luz rce(s) Supporting Document(s) Blood Urea Nitrogen 21 mg/dL 7-18 [facility] ([facility] Glucose, Fasting 173 mg/dL 70-100 [facility] ([facility] Sodium Level [...] Little GFR Left</content>
<content>ESRD GFR <15 on [employer]</content>
<content></content> Creatinine For GFR 1.33 mg/dL 0.55-1.30 [facility] ([facility] Potassium Serum 2.9 meq/L 3.5-5.1 Below lower panic limits [facility] ([facility] Chloride Level 99 meq/L 98-107 [facility] ([facility] Carbon Dioxide Level 32 meq/L 21-32 [facility] ([facility] Calcium Level 9.7 mg/dL 8.8-10.2 [facility] ([facility] Anion Gap 7 meq/L 8-16 [facility] ([facility] ID Date Data Source [id number] 07/26/2020 11:54:00 PM EDT [facility] ([facility] Name Value Range Interpretation Code Description Data Luz rce(s) Supporting Document(s) Troponin I.cardiac [Mass/volume] in Serum or Plasma 0.00 ng/mL 0.00-0 .08 [facility] ([facility] ID Date Data Source [id number] 06/24/2020 04:04:54 PM EDT [facility] Name Value Range Interpretation Code Description Data Luz rce(s) Supporting Document(s) &PDF [facility] CTGZJf1wPbWDXoGx65/ZVUklHACva6PqUBgvAGs3MGhpIRRsO5ErwKifEYKPJmQMJKTvPN4DL3ETYvBr oRX [file] AgICAgICAgICAgICAgICAgICAgICAgICAgICAgICAgICAgICAgICAgICAgICAgICAgICAgDQogICAgIC AgICAgICAgICAgICAgICAgICAgICAgICAgICAgICAg ICAgICAgICAgICAgICAgICAgICAgICAgICAgICAgICAgICAgICAgICAgICAgICAgICAgICAgICAgICAg ICAgDQogICAgICAgICAgICAgICAgICAgICAgICAgICAgICAgICAgICAgICAgICAgICAgICAgICAgICAg ICAgICAgICAgICAgICAgICAgICAgICAgICAgICAgIC AgICAgICAgICAgICAgDQogICAgICAgICAgICAgICAgICAgICAgICAgICAgICAgICAgICAgICAgICAgIC AgICAgICAgICAgICAgICAgICAgICAgICAgICAgICAgICAgICAgICAgICAgICAgICAgICAgICAgDQogIC AgICAgICAgICAgICAgICAgICAgICAgICAgICAgICAg ICAgICAgICAgICAgICAgICAgICAgICAgICAgICAgICAgICAgICAgICAgICAgICAgICAgICAgICAgICAg ICAgICAgDQogICAgICAgICAgICAgICAgICAgICAgICAgICAgICAgICAgICAgICAgICAgICAgICAgICAg ICAgICAgICAgICAgICAgICAgICAgICAgICAgICAgIC AgICAgICAgICAgICAgICAgDQogICAgICAgICAgICAgICAgICAgICAgICAgICAgICAgICAgICAgICAgIC AgICAgICAgICAgICAgICAgICAgICAgICAgICAgICAgICAgICAgICAgICAgICAgICAgICAgICAgICAgDQ ogICAgICAgICAgICAgICAgICAgICAgICAgICAgICAg ICAgICAgICAgICAgICAgICAgICAgICAgICAgICAgICAgICAgICAgICAgICAgICAgICAgICAgICAgICAg ICAgICAgICAgDQogICAgICAgICAgICAgICAgICAgICAgICAgICAgICAgICAgICAgICAgICAgICAgICAg ICAgICAgICAgICAgICAgICAgICAgICAgICAgICAgIC AgICAgICAgICAgICAgICAgICAgDQogICAgICAgICAgICAgICAgICAgICAgICAgICAgICAgICAgICAgIC AgICAgICAgICAgICAgICAgICAgICAgICAgICAgICAgICAgICAgICAgICAgICAgICAgICAgICAgICAgIC YoFBw9B5xmLGUxYUUoQY8cCMg6Ae1+DQoNCmVuZHN0 nvUfnQ0ISI1vj4DnNQayFZNud4FfMBd7FR2OTKUiLUntUC5FLRckbq5FUVFxTTSvvFFPe7nrUxUsPPZ7 LNZvKqjzMA7ENXSmX5kfqnSjLVGaJBUUEErgFBATJG8QWsMdI2QbyC92WQYSPg5+DQplbmRvYmoNCjMz TQXql2GgPNy7QP4RWWBfOFszZA9IQQKmhM7nQEcoJP 7QMjBoPBMwVCELYvDrY95qcXLbROw8F4VbNoUnMPPaKbauPRXlFXioUmEnFDTwYsFpSOkbSS4+ID4+DQ bmNR4LKNhqafDpPAZcBe9BTTRkTZT3GRFbxHBpGfFbXNOBZQdwEY9BgSQzIYP6hL2xCMliRIBqHLSbS0 uKEfYbeMjfKH35dYrvsbPgrTSmRAj+Cc9UUO8fm8Wk QQa3hwHbWSmsDRF1NHojFSKmTLIxPMNgNQM3LXB9YVTYXkZdZHDhPYDvBBxySEIlRDZooy0JMTMlVFMk HGG1KWMzADDiVYIjSVehELVuNZEeTVCaQWMfTABpEF1LLlEbQSVyXEIlOHRvRHPwQHIfya8KUAYeEDXm ZjR7UkKlBQSsFSScHIpiUDVtYGRbTvXbSNYuSEFiHG 0LKbWePKPtTQZvJwFwGLXmKGUldk9NNJGzYAMhGFSbJkWrROCtHHRyPYfmDLNfPBH8Trq3AGUkMROcWP 8OOhCiQOIbYEJ4DYWwTROmFMPzky7HHIIjMKPnWyY6FbOhMQPnNTQwBPuhVZOjNWT6VsRyLUEhBDDyDG 6WPzRlGQNlXPm4QsGeHVZrGQHcsn4YUATqHPKtJGSp DwAcXMLuRLVeESbdMJYbQJIlRAy1HLKsDSOlNH6EWwXaRBSmJSJoGQVvULCgEMCglg8UGONgZDPwPhPx XpHjJUYqBUOiGEpdPCYjGRCbPyO3QRZuPLFsIC7NOiIcEVOdAWQ2KPLwWDUlXCGuzw6TTCUmALDhKWlw FdAzZCEeVULtXKtyYZUlOQY8LNUeNJVyJUFmRX7NDo JiWZAfEYVwOUZfVFIvYCQjqi1GOTZfBEFzLdXdXpWmAWTpBEDgNSmoNOTbMUD5GiVzMLUaGQNuCN5WYk VlWYVhYCDgYIaqJCSuTAHrvc2EXTGkZRZgEkvkREXpGOMeXTNmZFgqRLOtKBJ8IEW3GOXcJFFsID4NSs UiWPWnSOmdSnsdHJZfHJXths5OFNHrHFRjFlFyXnRj NUWrEIIrZGpvHPZgVWJ5HAV3QZNqKSWlSU1UHxOdGTLiLBgpPaupRHAhRIMkpa3HCCWmNUIwLBJ7IoVi SOSxMPGdDKjfQGPjVGItKCQ7QXJjYQUiAB9CBsDhHBiyRZUJBtb0PCazG0h1HFNoGR0OH5Lcp2QnXmLl QIMDSPsdBM3iweZmTLVsKv1HR2nJNtjwZ4JsVJW1UP VhHOIvBPDeSEd5Usi1ABaxYLycGNK5SY7pHAQbNLJxXKgnZJExQWYcXELmVHAzHLaqBeBpXLU3PwurZl AhJW4QXp4GOiF3BCN5jGHjIk7ZZuZaPUOBInBgEE9VRRh= ID Date Data Source [id number] 06/06/2020 11:31:00 PM EDT [facility] ([facility] [...] pathogens. DISCLAIMER: Testing was performed using the [employer] SARS-CoV-2 test. This test was developed and its performance characteristics determined by [employer]. This test has not been FDA cleared [...] or revoked sooner. ID Date Data Source [id number] 06/06/2020 11:31:00 PM EDT [facility] Name Value Range Interpretation Code Description Data Luz rce(s) Supporting Document(s) SARS coronavirus 2 RNA [Presence] in Res piratory specimen by TEO with probe detection NEGATIVE [facility] This lab was ordered by [facility] a nd reported by [facility]. ID Date Data Source [id number] 06/06/2020 10:54:00 PM EDT [facility] ([facility] Name Value Range Interpretation Code Description Data Luz e(s) Supporting Document(s) Natriuretic peptide.B prohormone N-Terminal [Mass/volu me] in Serum or Plasma 260 pg/mL [facility] ([facility] ID Date Data Source [id number] 06/06/2020 10:54:00 PM EDT [facility] ([facility] Name Value Range Interpretation Code Description Data Luz [facility](s) Supporting Document(s) Blood Urea Nitrogen 22 mg/dL [...] Little GFR Left</content>
<content>ESRD GFR <15 on [employer]</content>
<content></content> Sodium Level 140 meq/L 136-145 [facility] [...] [facility] ID Date Data Source [id number] 06/06/2020 10:54:00 PM EDT [facility] (Nuzhat Langley [...] [facility] ID Date Data Source [id number] 06/06/2020 10:54:00 PM EDT [facility] ([facility] Name Value Range Interpretation Code Description Data Luz rce(s) Supporting Document(s) CPK Creatine Phosphokinase 17 U/L 26-192 [facility] ([facility] MB/CK Relative Index 5.88 [facility] [...] <content>Troponin I Reference Interval f or Siemens [place] LOCI:</content>
<content></content>
<content>99th Percentile= 0.00-0.045 ng/ml</content>
<content></content>
<content>Risk Stratification:</content>
<content><= 0.10 ng/ml Decreased Risk for Adverse Clinical</content>
<content>Events.</content>
<content>0.10-1.50 ng/ml Increased Risk for Adverse Clinical</content>
<content>Events. Evaluation of additional</content>
<content>criterion and/or repeat testing in 2-6</content>
<content>hours is suggested to rule out myocardial</content>
<content>damage.</content>
<content>>= 1.50 ng/ml Indicative of Myocardial Injury.</content>
<content></content> ID Date Data Source [id number] 06/06/2020 10:54:00 PM EDT [facility] ([facility] Name Value Range Interpretation Code Description Data Luz rce(s) Supporting Document(s) Lactate [Mass/volume] in Serum or Plasma 1.9 mmol/L 0.4-2.0 [facility] ([facility] Y/N query for Sepsis Lactate Rule: Y ID Date Data Source [id number] 06/06/2020 10:54:00 PM EDT [facility] (Nuzhat Langley [...] Corpuscular Hemoglobin 28.7 pg 27.0-33.0 [facility] ([facility] Mean Corpuscular HGB Conc 31.5 g/dL 32.0-36.5 [facility] ([facility] Red Cell Distribution Width 15.2 % 11.5-14.5 [facility] ([facility] Neutrophils % 69.4 % 36.0-66.0 [facility] ([facility] Platelet Count, Automated 165 10 150-450 [facility] ([facility] Lymph % 20.2 % 24.0-44.0 [facility] ([facility] [place] % 6.9 % 2.0-8.0 [facility] (Nuzhat rivera [...] 10 1.5-8.5 [facility] ([facility] [place] # 0.6 10 0.0-0.8 [facility] ([facility] Eos # 0.2 10 0.0-0.5 [facility] ([facility] Baso # 0.0 10 0.0-0.2 [facility] ([facility] ID Date Data Source [id number] 05/18/2020 10:45:00 AM EDT [facility] (Nuzhat Langley [...] by the U.S. Food and Drug Administration. [facility] are designated as high complexity laboratories by the Clinical Laboratory Improvement Amendments of 1988(CLIA) and is qualified to perform this test. ASSAY INFORMATION: Real Time RT-PCR ID Date Data Source [id number] 05/18/2020 12:00:00 AM EDT [facility] Name Value Range Interpretation Code Description Data Luz rce(s) Supporting Document(s) SARS-CoV-2 (COVID-19) RNA [Presence] in Respiratory specimen by TEO with probe detection Not Detected [facility] This lab was ordered by [facility] and reported by [employer] ID Date Data Source [id number] 04/10/2020 12:00:00 AM EST [facility] oly Imaging Nuzhat Langley MD Patient Name: MYAH [id number] Date of : 1940[place] [address] Date of Exam: [facility]#: Fax: [phone] EXAM: LUMBSACRAL SPINE (2 OR [...] rce(s) Supporting Document(s) ID Date Data Source [id number] 04/10/2020 12:00:00 AM EST [facility] Imaging Nuzhat Langley MD Patient Name: MYAH [id number] Date of : 1940[place] [address] Date of Exam: 04/10/2020#: Fax: [phone] EXAM: KNEE LEFT (COMPLETE) X-RAYCLINICAL INFORMATION: Chronic knee pain.Five views.There is no acute fracture or dislocation. There is moderate medial jointspace narrowing with subchondral sclerosis and spurring. There is mildspurring of the superior pole of the patella and there is mildpatellofemoral compartment narrowing. There is no radiographic evidence ofa significant joint effusion.IMPRESSION:Moderate degenerative changes as discussed above.ADELFO Garcia/jmcThank you for referring MYAH DEAL to our office. Electronically Signed - CATALINA GOYAL MD 04/10/20 19:26 Name Value Range Interpretation Code Description Data Luz rce(s) Supporting Document(s) ID Date Data Source [id number] 04/06/2020 07:29:00 PM EST [facility] ([facility] Name Value Range Interpretation Code Description Data Luz rce(s) Supporting Document(s) Appearance, Urine RFX Laboratory test result [facility] ([facility] Color, Urine RFX Laboratory test result [facility] ([facility] PH,Urine RFX 6.0 units 5.0-9.0 [facility] ([facility] Specific [place] Ur Auto RFX 1.030 1.002-1.035 [facility] (Nuzhat [...] Urine Auto RFX 1 /HPF 0-3 [facility] (Ka edna A[facility]iv[facility] RBC, Urine Auto RFX 1 /HPF 0-3 [facility] (Clulen [facility] Bacteria, Urine Auto RFX Laboratory test result [facility] ([facility] Mucus, Urine RFX Laboratory test result [facility] ([facility] Squam Epithelial Cell Ur Aurfx 2 /HPF 0-6 [facility] ([facility] Hyaline Cast, Urine Auto RFX 0 /LPF 0-1 [facility] ([facility] ID Date Data Source [id number] 04/06/2020 05:47:00 PM EST [facility] (Nuzhat Langley [...] [facility] ID Date Data Source [id number] 04/06/2020 05:27:00 PM EST [facility] ([facility] Name Value Range Interpretation Code Description Data Luz rce(s) Supporting Document(s) Erythrocyte sedimentation rate by 2H Westergren method 35 mm/hr 0-3 0 [facility] ([facility] ID Date Data Source [id number] 04/06/2020 05:27:00 PM EST [facility] (Nuzhat Langley [...] % 36.0-66.0 [facility] ([facility] [place] % 5.7 % 2.0-8.0 [facility] (Nuzhat rivera [...] 10 1.5-5.0 [facility] ([facility] [place] # 0.5 10 0.0-0.8 [facility] ([facility] Eos # 0.1 10 0.0-0.5 [facility] ([facility] Baso # 0.0 10 0.0-0.2 [facility] ([facility] ID Date Data Source [id number] 04/06/2020 05:27:00 PM EST [facility] ([facility] Name Value Range Interpretation Code Description Data Luz rce(s) Supporting Document(s) C reactive protein [Mass/volume] in Serum or Plasma by High sensitivity method 1.31 mg/dL 0.00-0.30 [facility] ([facility] ID Date Data Source [id number] 03/07/2020 11:43:00 PM EST [facility] (Nuzhat Langley [...] [facility] ID Date Data Source [id number] 03/07/2020 09:42:00 PM EST [facility] (Nuzhat Langley [...] - SARS-CoV-2 (COVID19) ID Date Data Source [id number] 03/07/2020 09:42:00 PM EST [facility] Name Value Range Interpretation Code Description Data Luz rce(s) Supporting Document(s) SARS-CoV-2 (COVID 19) NEGATIVE - SARS-CoV-2 (COVID19) [facility] This lab was ordered by [facility] a nd reported by [facility]. ID Date Data Source [id number] 01/31/2020 01:53:00 PM EST [facility] (Nuzhat Langley [...] [facility] ID Date Data Source [id number] 01/31/2020 01:53:00 PM EST [facility] ([facility] Name Value Range Interpretation Code Description Data Luz rce(s) Supporting Document(s) Natriuretic peptide.B prohormone N-Terminal [Mass/volu me] in Serum or Plasma 226 pg/mL [facility] ([facility] ID Date Data Source [id number] 01/31/2020 01:53:00 PM EST [facility] (Nuzhat Langley [...] Little GFR Left</content>
<content>ESRD GFR <15 on [employer]</content>
<content></content> Creatinine For GFR 1.48 mg/dL 0.55-1.30 [...] [facility] ID Date Data Source [id number] 01/31/2020 01:53:00 PM EST [facility] (Nuzhat Langley [...] [facility] ID Date Data Source [id number] 01/31/2020 01:53:00 PM EST [facility] ([facility] Name Value Range Interpretation Code Description Data [facility] Supporting Document(s) CPK Creatine Phosphokinase 25 U/L 26-192 [facility] ([facility] MB/CK Relative Index 4.40 [facility] (S[facility]umar [facility] <content>DIAGNOSIS CRITERIA</content>
<content>MMB ng/ml Relative Index (RI)</content>
<content>NON-AMI < or = 5 N/A</content>
<content>GOYAL ZONE > 5 < or = 4</content>
<content>AMI > 5 > 4</content>
<content></content> CK-MB Value Mass 1.1 ng/mL [facility] ([facility] Troponin I Laboratory test result [facility] ([facility] <content>Troponin I Reference Interval f or Siemens [place] LOCI:</content>
<content></content>
<content>99th Percentile= 0.00-0.045 ng/ml</content>
<content></content>
<content>Risk Stratification:</content>
<content><= 0.10 ng/ml Decreased Risk for Adverse Clinical</content>
<content>Events.</content>
<content>0.10-1.50 ng/ml Increased Risk for Adverse Clinical</content>
<content>Events. Evaluation of additional</content>
<content>criterion and/or repeat testing in 2-6</content>
<content>hours is suggested to rule out myocardial</content>
<content>damage.</content>
<content>>= 1.50 ng/ml Indicative of Myocardial Injury.</content>
<content></content> ID Date Data Source [id number] 01/31/2020 01:53:00 PM EST [facility] (Nuzhat Langley [...] % 24.0-44.0 [facility] ([facility] [place] % 6.1 % 0.0-5.0 [facility] (Nuzhat rivera [...] 10 0.0-0.5 [facility] ([facility] [place] # 0.6 10 0.0-0.8 [facility] ([facility] Baso # 0.0 10 0.0-0.2 [facility] ([facility] ID Date Data Source [id number] 01/24/2020 12:25:00 AM EST [facility] (Nuzhat Langley [...] <content>Troponin I Reference Interval f or Siemens [place] LOCI:</content>
<content></content>
<content>99th Percentile= 0.00-0.045 ng/ml</content>
<content></content>
<content>Risk Stratification:</content>
<content><= 0.10 ng/ml Decreased Risk for Adverse Clinical</content>
<content>Events.</content>
<content>0.10-1.50 ng/ml Increased Risk for Adverse Clinical</content>
<content>Events. Evaluation of additional</content>
<content>criterion and/or repeat testing in 2-6</content>
<content>hours is suggested to rule out myocardial</content>
<content>damage.</content>
<content>>= 1.50 ng/ml Indicative of Myocardial Injury.</content>
<content></content> ID Date Data Source [id number] 01/23/2020 09:51:00 PM EST [facility] (Nuzhat Langley [...] Little GFR Left</content>
<content>ESRD GFR <15 on [employer]</content>
<content></content> Creatinine For GFR 1.61 mg/dL 0.55-1.30 [...] [facility] ID Date Data Source [id number] 01/23/2020 09:51:00 PM EST [facility] (Nuzhat Langley [...] [facility] ID Date Data Source [id number] 01/23/2020 09:51:00 PM EST [facility] ([facility] Name Value Range Interpretation Code Description Data Luz rce(s) Supporting Document(s) CK-MB Value Mass Laboratory test result [facility] ([facility] CPK Creatine Phosphokinase 43 U/L 26-192 [facility] ([facility] Troponin I Laboratory test result [facility] ([facility] <content>Troponin I Reference Interval f or Siemens [place] LOCI:</content>
<content></content>
<content>99th Percentile= 0.00-0.045 ng/ml</content>
<content></content>
[...] > 4</content>
<content></content> ID Date Data Source [id number] 01/23/2020 09:51:00 PM EST [facility] (Nuzhat Langley [...] MYOCARDIAL INFARCTION 2.5-3.5 ID Date Data Source [id number] 01/23/2020 09:51:00 PM EST [facility] (Nuzhat Langley [...] % 11.5-14.5 [facility] ([facility] [place] % 5.0 % 0.0-5.0 [facility] (Nuzhat rivera [...] 10 0.0-0.5 [facility] ([facility] [place] # 0.5 10 0.0-0.8 [facility] ([facility] Baso # 0.0 10 0.0-0.2 [facility] ([facility] ID Date Data Source [id number] 01/23/2020 09:51:00 PM EST [facility] ([facility] Name Value Range Interpretation Code Description Data Luz rce(s) Supporting Document(s) Natriuretic peptide.B prohormone N-Terminal [Mass/volu me] in Serum or Plasma 519 pg/mL [facility] ([facility] ID Date Data Source [id number] 01/19/2020 02:58:00 PM EST [facility] ([facility] Name Value Range Interpretation Code Description Data Luz rce(s) Supporting Document(s) Hemoglobin A1c/Hemoglobin.total in Blood 6.5 % [facility] ([facility] <content>REFERENCE RANGES:</content><br/ ><content></content>
<content><=5.6% NORMAL</content>
<content>5.7-6.4% SUGGESTS IMPAIRED GLUCOSE METABOLISM/PREDIABETIC</content>
<content>>= 6.5% ABNORMAL</content>
<content></content> Estimated Average Glucose 140 mg/dL 60-110 [facility] ([facility] ID Date Data Source [id number] 01/19/2020 02:58:00 PM EST [facility] (Nuzhat Langley [...] Little GFR Left</content>
<content>ESRD GFR <15 on [employer]</content>
<content></content> Carbon Dioxide Level 37 meq/L 21-32 [...] [facility] ID Date Data Source [id number] 12/02/2019 07:46:00 PM EDT [facility] ([facility] Name [...] pathogens. DISCLAIMER: Testing was performed using the [employer] SARS-CoV-2 test. This test was developed and its performance characteristics determined by [employer]. This test has not been FDA cleared [...] or revoked sooner. ID Date Data Source [id number] 12/02/2019 07:06:00 PM EDT [facility] (Nuzhat Langley [...] [facility] ID Date Data Source [id number] 12/02/2019 07:06:00 PM EDT [facility] (Nuzhat Langley [...] [facility] ID Date Data Source [id number] 12/02/2019 07:06:00 PM EDT [facility] ([facility] Name Value Range Interpretation Code Description Data Luz [facility](s) Supporting Document(s) Prothrombin Time 19.4 s 12.5-14.3 [...] MYOCARDIAL INFARCTION 2.5-3.5 ID Date Data Source [id number] 12/02/2019 07:06:00 PM EDT [facility] ([facility] Name Value Range Interpretation Code Description Data [facility](s) Supporting Document(s) Red Blood Count 3.67 10 [...] % 24.0-44.0 [facility] ([facility] [place] % 7.1 % 0.0-5.0 [facility] (Nuzhat rivera [...] 10 0.0-0.5 [facility] ([facility] [place] # 0.6 10 0.0-0.8 [facility] ([facility] Baso # 0.0 10 0.0-0.2 [facility] ([facility] ID Date Data Source [id number] 12/02/2019 07:06:00 PM EDT [facility] (Nuzhat Langley [...] [facility] ID Date Data Source [id number] 12/02/2019 06:37:00 PM EDT [facility] ([facility] Name Value Range Interpretation Code Description Data Luz rce(s) Supporting Document(s) Troponin I.cardiac [Mass/volume] in Serum or Plasma 0.00 ng/mL 0.00-0 .08 [facility] ([facility] ID Date Data Source [id number] 12/02/2019 06:35:00 PM EDT [facility] ([facility] Name Value Range Interpretation Code [...] mg/dL 0.6-1.3 [facility] ([facility] Procedure Social History Code Duration Value Status Description Data Source(s ) Smoking 10/11/2020 12:00:00 AM EDT - 08/15/2013 12:00:00 AM EDT Patient is a former smoker completed Patient is a former smoker [facility] ([facility] Smoking 06/21/2020 12:00:00 AM EDT Patient is a former smoker completed Patient is a former smoker [facility] ([facility], ) Alcohol intake 06/07/2020 12:00:00 AM EDT No completed [facility] Cigarette pack-years 06/07/2020 12:00:00 AM EDT UNK completed [facility] Cigarettes smoked current (pack per day) - Reported 06/08/19 12:00:00 AM EDT UNK completed [facility] Smoking 06/07/2020 12:00:00 AM EDT Former smoker completed Former smoker [facility] Alcohol intake 01/19/2020 12:00:00 AM EST No completed [facility] Cigarette pack-years 01/19/2020 12:00:00 AM EST UNK completed [facility] Cigarettes smoked current (pack per day) - Reported 01/19/20 20 12:00:00 AM EST UNK completed [facility] Smoking 01/19/2020 12:00:00 AM EST Former smoker completed Former smoker [facility] Vital Signs ID Date Data Source [id number] Name Value Range Interpretation Code Description Data Source(s) Heart rate 75 /min 75 /min [facility] ([facility] Systolic blood pressure 87 mm[Hg] 87 mm[Hg] M [facility] ([facility] Diastolic blood pressure 42 mm[Hg] 42 mm[Hg] [facility] ([facility] Body temperature 95.7 [degF] 95.7 [degF] [facility] ([facility] Respiratory rate 25 /min 25 /min [facility] ( [facility] Body height 61.5 [in_i] 61.5 [in_i] [facility] ([facility] 5'1.50" Oxygen saturation in Arterial blood by Pulse oximetry 95 % 95 % [facility] ([facility] [place] body weight 105 [lb_av] 105 [lb_av] [facility] ([facility] Body temperature 96.9 [degF] 96.9 [degF] [facility] ([facility] ) Body height 61.5 [in_i] 61.5 [in_i] [facility] ([facility] ) 5'1.50" Body weight 228.00 [lb_av] 228.00 [lb_av] [facility] ([facility] ) Body mass index (BMI) [Ratio] 42.4 kg/m2 42.4 k g/m2 [facility] ([facility] ) Systolic blood pressure 124 mm[Hg] 124 mm[Hg] [facility] Diastolic blood pressure 62 mm[Hg] 62 mm[Hg] [facility] ([facility]) Heart rate 72 /min 72 /min [facility] ([facility]) Oxygen saturation in Arterial blood by Pulse oximetry 96 % 96 % [facility] ([facility]) Body height 62 [in_i] 62 [in_i] [facility] ([facility]) 5'2" Body weight 227.00 [lb_av] 227.00 [lb_av] [facility] ([facility]) Body mass index (BMI) [Ratio] 41.5 kg/m2 41.5 k g/m2 [facility] ([facility]) [place] body weight 110 [lb_av] 110 [lb_av] [facility] Body weight 102.967 kg 102.967 kg [facility] ([facility]) Body surface area Derived from formula 2.02 m2 2.02 m2 [facility] ([facility]) Body temperature 97.3 [degF] 97.3 [degF] [facility] ([facility] Systolic blood pressure 107 mm[Hg] 107 mm[Hg] [facility] ([facility] Diastolic blood pressure 57 mm[Hg] 57 mm[Hg] [facility] ([facility] Heart rate 73 /min 73 /min [facility] Respiratory rate 20 /min 20 /min [facility] ( [facility] Body height 61.5 [in_i] 61.5 [in_i] [facility] ([facility] 5'1.50" Body weight 235.12 [lb_av] 235.12 [lb_av] [facility] ([facility] Oxygen saturation in Arterial blood by Pulse oximetry 96 % 96 % [facility] ([facility] [place] body weight 105 [lb_av] 105 [lb_av] [facility] ([facility] Body mass index (BMI) [Ratio] 43.7 kg/m2 43.7 k g/m2 [facility] ([facility] Heart rate 100 /min 100 /min [facility] ([facility] Body temperature 96.7 [degF] 96.7 [degF] [facility] ([facility] [place] body weight 105 [lb_av] 105 [lb_av] [facility] ([facility] Body mass index (BMI) [Ratio] 42.8 kg/m2 42.8 k g/m2 [facility] ([facility] Body weight 230.12 [lb_av] 230.12 [lb_av] [facility] ([facility] Oxygen saturation in Arterial blood by Pulse oximetry 98 % 98 % [facility] ([facility] Systolic blood pressure 152 mm[Hg] 152 mm[Hg] [facility] Diastolic blood pressure 78 mm[Hg] 78 mm[Hg] [facility] ([facility] Respiratory rate 20 /min 20 /min [facility] ( [facility] Body height 61.5 [in_i] 61.5 [in_i] [facility] ([facility] 5'1.50" Diastolic blood pressure 77 mm[Hg] 77 mm[Hg] [facility] ([facility], ) Heart rate 70 /min 70 /min [facility] ) Systolic blood pressure 147 mm[Hg] 147 mm[Hg] M [facility] ([facility]) Body mass index (BMI) [Ratio] 43.9 kg/m2 43.9 k g/m2 [facility]) Body temperature 97.1 [degF] 97.1 [degF] [facility] ([facility]) [place] body weight 110 [lb_av] 110 [lb_av] [facility] ([facility]) Body weight 108.864 kg 108.864 kg [facility]) Oxygen saturation in Arterial blood by Pulse oximetry 93 % 93 % [facility] ([facility]) Respiratory rate 18 /min 18 /min [facility] ( [facility]) Body height 62 [in_i] 62 [in_i] [facility] ([facility]) 5'2" Body weight 240.00 [lb_av] 240.00 [lb_av] [facility] ([facility]) Body surface area Derived from formula 2.07 m2 2.07 m2 [facility] ([facility]) Oxygen saturation in Arterial blood by Pulse oximetry 100 % 100 % [facility] ([facility]) Body temperature 97.8 [degF] 97.8 [degF] [facility] ([facility]) Respiratory rate 20 /min 20 /min [facility] ( [facility]) Body height 62 [in_i] 62 [in_i] [facility] ([facility]) 5'2" Body weight 240.00 [lb_av] 240.00 [lb_av] [facility] ([facility]) Body mass index (BMI) [Ratio] 43.9 kg/m2 43.9 k g/m2 [facility] ([facility]) [place] body weight 110 [lb_av] 110 [lb_av] [facility] ([facility]) Heart rate 85 /min 85 /min [facility] ([facility]) Systolic blood pressure 126 mm[Hg] 126 mm[Hg] [facility] Diastolic blood pressure 65 mm[Hg] 65 mm[Hg] [facility] Body weight 108.864 kg 108.864 kg [facility] ([facility]) Body surface area Derived from formula 2.07 m2 2.07 m2 [facility] ([facility]) Systolic blood pressure 120 mm[Hg] 120 mm[Hg] [facility] Diastolic blood pressure 60 mm[Hg] 60 mm[Hg] [facility] Heart rate 93 /min 93 /min [facility] Body height 157.5 cm 157.5 cm [facility] Body weight 107.502 kg 107.502 kg [facility] Body mass index (BMI) [Ratio] 43.35 kg/m2 43.35 kg/m2 [facility] Oxygen saturation in Arterial blood by Pulse oximetry 93 % 93 % [facility] Systolic blood pressure 130 mm[Hg] 130 mm[Hg] [facility] ([facility]) Diastolic blood pressure 70 mm[Hg] 70 mm[Hg] [facility] ([facility]) Heart rate 97 /min 97 /min [facility] ([facility] Oxygen saturation in Arterial blood by Pulse oximetry 94 % 94 % [facility] ([facility]) Body height 62 [in_i] 62 [in_i] [facility] ([facility]) 5'2" Body weight 240.00 [lb_av] 240.00 [lb_av] [facility] ([facility]) Body mass index (BMI) [Ratio] 43.9 kg/m2 43.9 k g/m2 [facility] ([facility]) [place] body weight 110 [lb_av] 110 [lb_av] [facility] ([facility]) Body weight 108.864 kg 108.864 kg [facility] ([facility]) Body surface area Derived from formula 2.07 m2 2.07 m2 [facility] ([facility]) Heart rate 74 /min 74 /min [facility] ([facility] Systolic blood pressure 119 mm[Hg] 119 mm[Hg] [facility] Diastolic blood pressure [...] 95 % [facility] ([facility] [place] body weight 105 [lb_av] 105 [lb_av] [facility] [...] ([facility] 5'1.50" Body weight 247.38 [lb_av] 247.38 [lb_av] [facility] ([facility] Oxygen saturation in Arterial blood by Pulse oximetry 98 % 98 % [facility] ([facility] [place] body weight 105 [lb_av] 105 [lb_av] [facility] [...] 96 % [facility] ([facility] [place] body weight 105 [lb_av] 105 [lb_av] [facility] ([facility] Body mass index (BMI) [Ratio] 38.7 kg/m2 38.7 k g/m2 [facility] ([facility] Systolic blood pressure 132 mm[Hg] 132 mm[Hg] [facility] Diastolic blood pressure 60 mm[Hg] 60 mm[Hg] [facility] Heart rate 93 /min 93 /min [facility] Body height 157.5 cm 157.5 cm [facility] Body weight 113.853 kg 113.853 kg [facility] Body mass index (BMI) [Ratio] 45.91 kg/m2 45.91 kg/m2 [facility] Oxygen saturation in Arterial blood by Pulse oximetry 98 % 98 % [facility] Systolic blood pressure 108 mm[Hg] 108 mm[Hg] [facility] ([facility] Diastolic blood pressure 77 mm[Hg] 77 mm[Hg] [facility] ([facility] Heart rate 93 /min 93 /min [facility] ([facility] Body temperature 97.3 [degF] 97.3 [degF] [facility] ([facility] Respiratory rate 22 /min 22 /min [facility] ( [facility] Body height 61.5 [in_i] 61.5 [in_i] [facility] ([facility] 5'1.50" Body weight 252.50 [lb_av] 252.50 [lb_av] [facility] ([facility] Oxygen saturation in Arterial blood by Pulse oximetry 94 % 94 % [facility] ([facility] [place] body weight 105 [lb_av] 105 [lb_av] [facility] [...] 95 % [facility] ([facility] [place] body weight 105 [lb_av] 105 [lb_av] [facility] [...] ([facility] on room air [place] body weight 105 [lb_av] 105 [lb_av] [facility] [...] 95 % [facility] ([facility] [place] body weight 105 [lb_av] 105 [lb_av] [facility] ([facility] Patient Treatment Plan of Care Planned Activity Planned Date Details Description Data Source (s) torsemide 20 MG Oral Tablet 01/12/2020 12:00:00 AM [facility] Metformin hydrochloride 500 MG Oral Tablet 01/11/2020 12:00:00 AM [facility] Bacitracin 0.5 UNT/MG / Neomycin 0.0035 MG/MG / Polymyxin B 10 UNT/MG Topical Ointment 12/27/2019 12:00:00 AM EST [facility] Albuterol 0.833 MG/ML / Ipratropium [place] 0.167 MG/M L Inhalant Solution 12/27/2019 12:00:00 AM EST [facility] Fluconazole 100 MG Oral Tablet 12/08/2019 12:00:00 AM EDT [facility] Prednisone 5 MG Oral Tablet 06/25/2019 12:00:00 AM EDT [facility] potassium chloride SA (K-DUR,KLOR-CON) 20 MEQ tablet 12:00:00 AM EDT [facility] Furosemide 40 MG Oral Tablet 06/11/2019 12:00:00 AM EDT [facility] tizanidine 4 MG Oral Tablet [facility] 60 ACTUAT Fluticasone propionate 0.5 MG/ ACTUAT / salmeterol 0.05 MG/ACTUAT Dry Powder Inhaler [facility]
--- OUTSIDE RECORDS SUMMARY | 2021-01-23 22:44 | CCD ---
Author Author [facility] Organization [facility] Address Unknown Phone Unavailable Care Team Providers Care Package Reinspector Name Role Phone Dusty Monika Noland [facility], PA-C Unavailable Unavailabl e [facility] Un[facility] Un[facility], [facility]C Unavailable Unavailabl e Fish Monika [facility], PA-C Unavailable Unavailabl e Fish Monika [facility], PA-C Unavailable Unavailabl e Fish Monika [facility], PA-C Unavailable Unavailabl e Fish, Monika [facility], PA-C Unavailable Unavailabl e Fish, Monika [facility], PA-C Unavailable Unavailabl e Fish Monika [facility], PA-C Unavailable Unavailabl e Fish Monika [facility], PA-C Unavailable Unavailabl e Fish, [facility], PA-C Unavailable Unavailabl e Fish, [facility], PA-C Unavailable Unavailabl e Fish, [facility], PA-C Unavailable Unavailabl e Fish, [facility], PA-C Unavailable Unavailabl e Fish, [facility], PA-C Unavailable Unavailabl e Fish, [facility], PA-C Unavailable Unavailabl e Fish, [facility], PA-C Unavailable Unavailabl e Fish, [facility], PA-C Unavailable Unavailabl e Fish, [facility], PA-C Unavailable Unavailabl e Fish, [facility], PA-C Unavailable Unavailabl e Fish, [facility], PA-C Unavailable Unavailabl e Fish, [facility], PA-C Unavailable Unavailabl e Fish, [facility], PA-C Unavailable Unavailabl e Fish, [facility], PA-C Unavailable Unavailabl e Fish, [facility], PA-C Unavailable Unavailabl e Fish, [facility], PA-C Unavailable Unavailabl e Fish, [facility], PA-C Unavailable Unavailabl e Fish, [facility], PA-C Unavailable Unavailabl e Fish, [facility], PA-C Unavailable Unavailabl e Fish, [facility], PA-C Unavailable Unavailabl e Fish, [facility], PA-C Unavailable Unavailabl e Fish, [facility], PA-C Unavailable Unavailabl e Fish, [facility], PA-C Unavailable Unavailabl e Fish, [facility], PA-C Unavailable Unavailabl e Fish, [facility], PA-C Unavailable Unavailabl e NAVEEN JACKSON MD [...] Unavailable Unavailable RENETTA, NAVEEN OSMAN Unavailable Unavailable RENTETA, NAVEEN OSMAN Unavailable Unavailable RENETTA, NAVEEN OSMAN [...] MD LENNY FALCON Unavailable Unavailable Pleskach, Criselda [employer] MEMBER Unavailable Unavailable Pleskach, Criselda CLEANING CREW MEMBER Unavailable Unavailable Pleskach, Criselda CLEANING CREW MEMBER Unavailable Unavailable Pleskach, Criselda CLEANING CREW MEMBER Unavailable Unavailable Pleskach, Criselda CLEANING CREW MEMBER Unavailable Unavailable Pleskach, Criselda CLEANING CREW MEMBER Unavailable Unavailable Pleskach, Criselda CLEANING CREW MEMBER Unavailable Unavailable Pleskach, Criselda CLEANING CREW MEMBER Unavailable Unavailable Pleskach, Criselda CLEANING CREW MEMBER Unavailable Unavailable Pleskach, Criselda CLEANING CREW MEMBER Unavailable Unavailable Pleskach, Criselda CLEANING CREW MEMBER Unavailable Unavailable Pleskach, Criselda CLEANING CREW MEMBER Unavailable Unavailable Pleskach, Criselda CLEANING CREW MEMBER Unavailable Unavailable Pleskach, Criselda CLEANING CREW MEMBER Unavailable Unavailable Pleskach, Criselda CLEANING CREW MEMBER Unavailable Unavailable Pleskach, Criselda CLEANING CREW MEMBER Unavailable Unavailable Pleskach, Criselda CLEANING CREW MEMBER Unavailable Unavailable Pleskach, Criselda CLEANING CREW MEMBER Unavailable Unavailable Pleskach, Criselda CLEANING CREW MEMBER Unavailable Unavailable Pleskach, Criselda CLEANING CREW MEMBER Unavailable Unavailable Pleskach, Criselda CLEANING CREW MEMBER Unavailable Unavailable Pleskach, Criselda CLEANING CREW MEMBER Unavailable Unavailable Pleskach, Criselda CLEANING CREW MEMBER Unavailable Unavailable Pleskach, Criselda CLEANING CREW MEMBER Unavailable Unavailable Pleskach, Criselda CLEANING CREW MEMBER Unavailable Unavailable Pleskach, Criselda CLEANING CREW MEMBER Unavailable Unavailable Pleskach, Criselda CLEANING CREW MEMBER Unavailable Unavailable Pleskach, Criselda CLEANING CREW MEMBER Unavailable Unavailable Pleskach, Criselda CLEANING CREW MEMBER Unavailable Unavailable Pleskach, Criselda CLEANING CREW MEMBER Unavailable Unavailable Pleskach, Criselda CLEANING CREW MEMBER Unavailable Unavailable Pleskach, Criselda CLEANING CREW MEMBER Unavailable Unavailable Pleskach, Criselda CLEANING CREW MEMBER Unavailable Unavailable Pleskach, Criselda CLEANING CREW MEMBER Unavailable Unavailable Pleskach, Criselda CLEANING CREW MEMBER Unavailable Unavailable Pleskach, Criselda CLEANING CREW MEMBER Unavailable Unavailable Pleskach, Criselda CLEANING CREW MEMBER Unavailable Unavailable Pleskach, Criselda CLEANING CREW MEMBER Unavailable Unavailable Pleskach, Criselda CLEANING CREW MEMBER Unavailable Unavailable Pleskach, Criselda CLEANING CREW MEMBER Unavailable Unavailable Pleskach, Criselda CLEANING CREW MEMBER Unavailable Unavailable Pleskach, Criselda CLEANING CREW MEMBER Unavailable Unavailable Pleskach, Criselda CLEANING CREW MEMBER Unavailable Unavailable Pleskach, Criselda CLEANING CREW MEMBER Unavailable Unavailable Km Kathleen MD Unavailable Unavailable Km Kathleen MD Unavailable Unavailable Km Kathleen MD Unavailable Unavailable Km Kathleen MD Unavailable Unavailable Hever, Km OSMAN Unavailable Unavailable Hever, Km OSMAN Unavailable Unavailable Hever, Km OSMNA Unavailable Unavailable Hever, Km OSMAN Unavailable Unavailable [...] los santos MD Unavailable Unavailable Vaneenjamelam, Hazel Mcfaralnd MD Unavailable Unavailable Vaneenenaam, Hazel [...] is protected by Article 27-F of the [facility] Public Health law. If you continue you may have access to information: Regarding HIV / AIDS; Provided by facilities licensed or operated by the [facility] Office of Mental Health; or Provided by the [facility] Office for People With Developmental Disabilities. If such information is present, then the following [facility] mandated warning applies: This information has [...] law may result in a fine or halfway sentence or both. A general authorization for the release of medical or other information is NOT sufficient authorization for further disc losure. Family History Family Member Name Family Member Gender Family Member Status Date o f Status Description Data Source(s) Unknown Male Problem [facility] ([facility] Unknown Male Problem [facility] ([facility] in 1985 Unknown Unknown Problem [facility] ([facility]) Unknown Male Problem [facility] ([facility] Encounters Encounter Providers Location Date Indications Data Source(s ) Outpatient P.CT-SJP.SYR 01/15/2021 09:26:15 AM EST [facility] Outpatient Attender: Criselda Herrera [facility] Main Office 10/11/2020 0 2:00:00 PM EDT [facility] ([facility] Outpatient [facility].CT-SJP.SYR 10/03/2020 01:58:55 PM EDT [facility] OFFICE OUTPATIENT VISIT 15 MINUTES Attender: Hazel augila MD Physical Therapy 08/22/2020 10:15:00 AM EDT [facility] ([facility] ) Outpatient Attender: Km Bolanos/Vipul/Alex/Chauncey ndamauri 08/15/2020 11:00:00 AM EDT [facility] ([facility]) Office Visit Attender: Nuzhat QUEZADA PA-C Physical Therapy 08/08/2020 03:45:00 PM EDT [facility] ([facility]) Outpatient Attender: Nuzhat QUEZADA PA-C Physical Therapy 08/07/2020 01:30:00 PM EDT [facility] ([facility] ) Outpatient Attender: Criselda Herrera [facility] Main Office 07/31/2020 1 1:00:00 AM EDT [facility] ([facility] Outpatient Attender: Criselda Herrera [facility] Main Office 07/12/2020 0 2:00:00 PM EDT [facility] ([facility] Outpatient SJИрина-SJИрина 06/24/2020 04:06:08 PM EDT [facility] Outpatient SJP.ZAIDA-SJP.ZAIDA 06/22/2020 01:43:06 PM EDT [facility] Outpatient Attender: Km Hyman/Vipul/Alex/Rein dl 06/21/2020 01:30:00 PM EDT [facility] ([facility] Outpatient Attender: Edgar Hyman/Vipul/Alex/Re indl 06/02/2020 01:15:00 PM EDT [facility] ([facility] Outpatient Attender: NAVEEN JACKSON MD Ирина.ZAIDA-SJP.ZAIDA 01:50:15 PM EDT - 05/26/2020 02:22:58 PM EDT [facility] Outpatient Attender: Jeffy DIANA Physical Therapy 01:00:00 PM EDT [facility] ([facility]) Outpatient Attender: Km Bolanos/Vipul/Alex/Chauncey ndl 05/02/2020 10:00:00 AM EDT [facility] ([facility] Outpatient Attender: Km Bolanos/Vipul/Alex/Chauncey ndl 04/12/2020 09:00:00 AM EST [facility] ([facility] Outpatient Attender: Criselda Herrera [facility] Main Office 04/10/2020 0 8:00:00 AM EST [facility] ([facility] Office Visit Attender: Jeffy DIANA Physical Therapy 12:00:00 PM EST [facility] ([facility]) Outpatient Attender: Criselda Herrera [facility] Main Office 03/22/2020 0 2:15:00 PM EST [facility] ([facility] Office Visit Attender: Jeffy DIANA Physical Therapy 12:45:00 PM EST [facility] ([facility]) Outpatient Attender: Km Bolanos/[place]/Alex/Chauncey ndl 02/14/2020 07:30:00 AM EST [facility] ([facility] Outpatient Attender: Criselda Herrera [facility] Main Office 01/31/2020 1 0:45:00 AM EST [facility] ([facility] Outpatient Attender: Criselda Herrera [facility] Main Office 01/19/2020 0 1:00:00 PM EST [facility] ([facility] Outpatient Attender: NAVEEN FLANAGAN.ZAIDA-[facility].ZAIDA 0 12:00:00 AM EST - 01/19/2020 04:09:59 PM EST [facility] Outpatient Attender: Criselda Herrera [facility] Main Office 01/11/2020 0 2:45:00 PM EST [facility] ([facility] Outpatient Attender: Km Bolanos/Vipul/Alex/Chauncey nd 12/21/2019 07:30:00 AM EST [facility] ([facility]) Outpatient Attender: Criselda Herrera [facility] Main Office 12/16/2019 0 1:15:00 PM EDT [facility] ([facility] Outpatient Attender: Criselda Herrera [facility] Main Office 12/02/2019 0 4:00:00 PM EDT [facility] ([facility] Inpatient Attender: MD EILEEN Tom uri: MD HAFSA Grajeda: MD LENNY Negron: RDAHA BRICEÑO MDAdmitter: MD LENNY FALCON [id number] 07/30/2019 07:36:00 PM EDT [facility] Immunizations Vaccine Date Status Description Data Source(s) Moderna Sars-(Covid-19) vaccine, mRNA, LNP-S, PF, 100 mcg/ 0.5 mL 05/24/2020 12:00:00 AM EDT completed [facility] ([facility] COVID-19 VACCINE Moderna 05/24/2020 12:00:00 AM EDT completed [facility] Vaccine Series Complete: YESThis Data wa s Submitted to [facility] Via [employer]. COVID-19 VACCINE Moderna 04/19/2020 12:00:00 AM EST completed [facility] Vaccine Series Complete: NOThis Data was Submitted to [facility] Via [employer]. Moderna Sars-(Covid-19) vaccine, mRNA, LNP-S, PF, 100 [...] Medrol 08/07/2020 12:00:00 AM EDT active [facility] ([facility] ) Fluticasone Propionate Fluticasone Propionate 07/31/2020 [...] by mouth 2 (two) times a day [facility] Metformin hydrochloride 500 MG Oral Tablet metFORMIN ( GLUCOPHAGE) 500 MG tablet metFORMIN (GLUCOPHAGE) 500 MG tablet 01/11/2020 12:00:00 AM EST active [facility] Bacitracin 0.5 UNT/MG / Neomycin 0.0035 MG/MG / Polymyxin B 10 UNT/MG Topical Ointment [place]-Oocdmfupaj-Jpbqmspne (FIRST AID ANTIBIOTIC) 3.5-400-5000 MG- UNIT OINT Wvexanhr-Jowwhdtyzt-Eknnnlauf (FIRST AID ANTIBIOTIC) 3.5-400-5000 MG- UNIT OINT 12/27/2019 12:00:00 AM EST active [facility] Albuterol 0.833 MG/ML / Ipratropium Brom danial 0.167 MG/ML Inhalant Solution ipratropium-albuterol (DUO-NEB) 0.5-2.5 mg/mL nebulizer ipratropium-albuterol (DUO-NEB) 0.5-2.5 mg/mL nebulizer 12/27/2019 12:00:00 AM EST active [facility] Metolazone 2.5 MG Oral Tablet Metolazone 12/08/2019 12:00:00 AM EDT ORAL active [facility] ([facility] torsemide 20 MG Oral Tablet Torsemide 12/08/2019 12:00:00 AM EDT active [facility] ([facility] Fluconazole 100 MG Oral Tablet fluconazole (DIFLUCAN) 100 MG tablet fluconazole (DIFLUCAN) 100 MG tablet 12/08/2019 12:00:00 AM EDT aborted [facility] torsemide 10 MG Oral Tablet Torsemide [...] Sodium 08/07/2019 12:00:00 AM EDT completed [facility] tizanidine 4 MG Oral [...] tablet (5 mg total) by mouth daily [facility] Chronic bronchitis, unspecified chronic bronchitis type potassium chloride SA (K-DUR,KLOR-CON) 20 MEQ tablet [id number] 06/25/2019 12:00:00 AM EDT aborted [facility] Furosemide 40 MG Oral Tablet furosemide (LASIX) 40 MG tablet furosemide (LASIX) 40 MG tablet 06/11/2019 12:00:00 AM EDT 40 mg Oral abort ed Take 1 tablet (40 mg total) by mouth 2 (two) times a day [facility] tizanidine 4 MG Oral Tablet tiZANidine (ZANAFLEX) 4 MG tablet tiZANidine (ZANAFLEX) 4 MG tablet 4 mg Oral aborted Take 4 mg by mouth every 6 (six) hours as needed [facility] 60 ACTUAT Fluticasone propionate 0.5 MG/ ACTUAT / salmeterol 0.05 MG/ACTUAT Dry Powder Inhaler fluticasone-salmeterol (ADVAIR) 500-50 MCG/DOSE DISKUS fluticasone-salmeterol (ADVAIR) 500-50 MCG/DOSE DISKUS 1 {puff} Inhalation aborted Inhale 1 puff 2 (two) amy es a day [facility] Insurance Providers Payer name Policy type / Coverage type Policy ID Covered democrat ID Covered democrat's relationship to sellers Policy Sellers Plan Information [facility] 121/621 [id number] [facility] [id number] SP [id number] MEDICARE [id number] SP [id number] MEDICARE [id number] Susanna [id number] E78 MEDICARE [id number] Susanna [id number] A MEDICARE [id number] SP [id number] A MEDICARE A [id number] Self [id number] [id number] MEDICARE [id number] xxxxxxxxxxx [id number] MEDICARE A [id number] Self [id number] A FOR LIFE [id number] FOR LIFE [id number] FOR LIFE U [id number] Self [id number] Spo [id number] xxxxxxxxxxx [id number] FOR LIFE U [id number] Self [id number] FIDELIS MEDICARE [id number] Susanna [id number] For Life Medigap Part B [id number] Family Dependent [id number] [place] Primary [id number] ..[id number] Self [id number] For Life Reg 1 Medigap Part B [id number] .[id number] Family Dependent 1 [id number] Medicare - NGS Medicare Primary [id number] 2.0.1.262294.3.227.99.177.25922.0 Self [id number] For Life Medigap Part B [id number] 2.0.1.630415.3.227.99.2809.46056.0 Family Dependent [id number] Medicare [place] Medicare Primary [id number] 2.0.1.435702.3.227.99.2809.47563.0 Self [id number] For Life Reg 1 Medigap Part B [id number] 2.0.1.128506.3.227.99.177.97721.0 Family Dependent 1 [id number] Medicare - NGS Medicare Primary [id number] 2..[id number]2.0 Self [id number] MEDICARE C UNAVAILABLE [id number] S UNAVAILA BLE MEDICARE C [id number] S [id number] A FOR LIFE [id number] [facility] [id number] For Life Reg 1 Medigap Part B [id number] 2..[id number]92.0 Family Dependent 1 [id number] Medicare - NGS Medicare Primary [id number] 2..1.920912.3.227.99.177.55690.0 Self 0 [id number] [place] MEDICARE PART B C [id number] S [id number] For Life Medigap Part B [id number] 2..1.952206.3.227.99.2809.10248.0 Family Dependent [id number] Medicare [place] Medicare Primary [id number] 2..1.627507.3.227.99.2809.30538.0 Self [id number] For Life Medigap Part B [id number] 2.16.840.1.418260.3.227.99.2809.62977.0 Family Dependent [id number] Medicare Up[place] Medicare Primary [id number] 2.16.840.1.939046.3.227.99.2809.07585.0 Self [id number] For Life Medigap Part B [id number] 2.16.840.1.628948.3.227.99.2809.87359.0 Family Dependent [id number] Medicare [place] Medicare Primary [id number] 2.16.840.1.179097.3.227.99.2809.25920.0 Self [id number] PI PI MEDICARE PI PI [id number] Spo [id number] For Life Medigap Part B [id number] 2.840.1.326251.3.227.99.2809.31499.0 Family Dependent [id number] Medicare Up[place] Medicare Primary [id number] 2.840.1.443675.3.227.99.2809.28486.0 Self [id number] For Life Reg 1 Medigap Part B [id number] 2.16840.1.336728.3.227.99.177.30444.0 Family Dependent 1 [id number] Medicare - NGS Medicare Primary [id number] 2.840.1.354639.3.227.99.177.02463.0 Self 0 [id number] For Life - WPS Medigap Part B [id number] 2.16840.1.917366.3.227.99.572.63466.0 Self 1 [id number] Medicare (Part A) Medicare Primary [id number] 2.16840.1.677967.3.227.99.572.36086.0 Self 0 [id number] Medicare (Part B) Medicare Primary [id number] 2.16840.1.670033.3.227.99.572.02383.0 Self 0 [id number] For Life Medigap Part B [id number] 2.16.840.1.650537.3.227.99.2809.19950.0 Family Dependent [id number] Medicare Upstate Medicare Primary [id number] 2.16.840.1.739600.3.227.99.2809.71399.0 Self [id number] For Life - WPS Medigap Part B [id number] 2.16.840.1.063917.3.227.99.572.25273.0 Self 1 [id number] Medicare (Part A) Medicare Primary [id number] 2.16.840.1.991607.3.227.99.572.87432.0 Self 0 [id number] Medicare (Part B) Medicare Primary [id number] 2.16840.1.816325.3.227.99.572.32669.0 Self 0 [id number] For Life Medigap Part B [id number] 2.840.1.496749.3.227.99.2809.91230.0 Family Dependent [id number] Medicare Upstate Medicare Primary [id number] 2.840.1.611801.3.227.99.2809.68957.0 Self [id number] [facility], [facility] [id number] S [id number] For Life Medigap Part B [id number] 2.0.1.782808.3.227.99.2809.82597.0 Family Dependent [id number] Medicare Upstate Medicare Primary [id number] 2.16840.1.425427.3.227.99.2809.12331.0 Self [id number] For Life Medigap Part B [id number] 2.840.1.535595.3.227.99.2809.64925.0 Family Dependent [id number] Medicare Upstate Medicare Primary [id number] 2.840.1.763752.3.227.99.2809.21331.0 Self [id number] For Life Medigap Part B [id number] 2.16.840.1.692927.3.227.99.2809.57459.0 Family Dependent [id number] Medicare Upstate Medicare Primary [id number] 2.840.1.449371.3.227.99.2809.45417.0 Self [id number] For Life WPS Medigap Part B [id number] 2.840.1.308181.3.227.99.1767.66748.0 Self [id number] Medicare Natl Gov't Servi Medicare Primary [id number] 2.840.1.142883.3.227.99.1767.23674.0 Self [id number] For Life Medigap Part B [id number] 2.840.1.205338.3.227.99.2809.32589.0 Family Dependent [id number] Medicare Upstate Medicare Primary [id number] 20.1.224569.3.227.99.2809.58334.0 Self [id number] FOR LIFE [id number] SP [id number] For Life Medigap Part B [id number] Family Dependent Medicare [place] Medicare Primary [id number] Self FOR LIFE [id number] SP [id number] FOR LIFE [id number] SP [id number] MEDICARE [id number] SP [id number] A RETIREE MEDICAL INSURANCE PLAN [id number] SP [id number] A [facility] MEDICAID [id number] SP [id number] Y [id number] [facility] MEDICAID [id number] SP [id number] SELF PAY ONLY [id number] SP [id number] MEDICARE C [id number] S [id number] FOR LIFE O [id number] S [id number] SELF PAY BA [facility] [id number] HU[address] [id number] [facility] [id number] S [id number] For Life Medigap Part B [id number] Family Dependent [id number] Medicare Upstate Medicare Primary [id number] Self [id number] For Life Medigap Part B [id number] Family Dependent [id number] Medicare [place] Medicare Primary [id number] Self [id number] For Life Reg 1 Medigap Part B [id number] 2.16.840.1.443271.3.227.99.177.60523.0 Family Dependent 1 [id number] Medicare - NGS Medicare Primary [id number] 2.16.840.1.963685.3.227.99.177.28923.0 Self [id number] For Life Medigap Part B [id number] 2.16.840.1.105010.3.227.99.2809.99643.0 Family Dependent [id number] Medicare [place] Medicare Primary [id number] 2.16.840.1.660970.3.227.99.2809.42170.0 Self [id number] Problems, Conditions, and Diagnoses Code Display Name Description Problem Type Effective Dates Data Source(s) R91.8 Abnormal findings on diagnostic imaging of lung Abnormal findings on diagnostic imaging of lung Problem 05/02/2020 12:00:00 AM EDT [facility] ([facility] ) E11.69 Type 2 diabetes mellitus [...] extremities Pain in both lower extr emities [id number] 01/19/2020 12:00:00 AM EST [facility] G47.33 Obstructive sleep apnea syndrome Obstructive sle ep apnea syndrome Problem 12/21/2019 12:00:00 AM EST [facility] ([facility] ) Surgeries/Procedures Procedure Description Date Indications Data Source(s) Chronic Care Management Services Ea Addl 20 Min 2020 12:00:00 AM EST [facility] ([facility] Chronic Care MGMT 20 Mins Clinical Staff Time Per Calendar M [facility] 01/10/2021 12:00:00 AM EST [facility] ([facility] Chronic Care Management Services Ea Addl 20 Min 2020 12:00:00 AM EDT [facility] ([facility] Chronic Care MGMT 20 Mins Clinical Staff Time Per Calendar M [facility] 11/29/2020 12:00:00 AM EDT [facility] ([facility] Chronic Care MGMT 20 Mins Clinical Staff Time Per Calendar M [facility] 10/30/2020 12:00:00 AM EDT [facility] ([facility] OFFICE OUTPATIENT VISIT 25 MINUTES 10/11/2020 12:00:00 AM EDT [facility] ([facility] Chronic Care MGMT 20 Mins Clinical Staff Time Per Calendar M [facility] 10/03/2020 12:00:00 AM EDT [facility] ([facility] Chronic Care MGMT 20 Mins Clinical Staff Time Per Calendar M [facility] 08/30/2020 12:00:00 AM EDT [facility] ([facility] OFFICE OUTPATIENT VISIT 15 MINUTES 08/22/2020 12:00:00 AM EDT [facility] ([facility]) Spirometry 08/15/2020 12:00:00 AM EDT M [facility]ENT ([facility]) OFFICE OUTPATIENT VISIT 25 MINUTES 08/15/2020 12:00:00 AM EDT [facility] ([facility]) PHYSICIAN TELEPHONE EVALUATION 11-20 MIN 08/08/2020 12 :00:00 AM EDT [facility] ([facility]) OFFICE OUTPATIENT VISIT 25 MINUTES 08/07/2020 12:00:00 AM EDT [facility] ([facility]) OFFICE OUTPATIENT VISIT 25 MINUTES 07/31/2020 12:00:00 AM EDT [facility] ([facility] Chronic Care MGMT 20 Mins Clinical Staff Time Per Calendar M [facility] 07/27/2020 12:00:00 AM EDT [facility] ([facility] Chronic Care Management Services Ea Addl 20 Min 2020 12:00:00 AM EDT [facility] ([facility] Chronic Care MGMT 20 Mins Clinical Staff Time Per Calendar M [facility] 07/13/2020 12:00:00 AM EDT [facility] ([facility] Diabetic Foot Exam 07/12/2020 12:00:00 AM EDT [facility] ([facility] OFFICE OUTPATIENT VISIT 25 MINUTES 07/12/2020 12:00:00 AM EDT [facility] ([facility] OFFICE OUTPATIENT VISIT 25 MINUTES 06/21/2020 12:00:00 AM EDT [facility] ([facility]) Chronic Care Management Services Ea Addl 20 Min 2020 12:00:00 AM EDT [facility] ([facility] Chronic Care MGMT 20 Mins Clinical Staff Time Per Calendar M [facility] 06/15/2020 12:00:00 AM EDT [facility] ([facility] OFFICE OUTPATIENT NEW 45 MINUTES 06/02/2020 12:00:00 A EDT [facility] ([facility]) Chronic Care Management Services Ea Addl 20 Min 2020 12:00:00 AM EDT [facility] Chronic Care MGMT 20 Mins Clinical Staff Time Per Calendar M [facility] 05/04/2020 12:00:00 AM EDT [facility] ([facility] X-Ray Hip Unilateral With Pelvis 2-3 Views 05/03/2020 12:00:00 AM EDT [facility] ([facility]) OFFICE OUTPATIENT VISIT 25 MINUTES 05/03/2020 12:00:00 AM EDT [facility] ([facility]) OFFICE OUTPATIENT VISIT 15 MINUTES 05/02/2020 12:00:00 AM EDT [facility] ([facility]) OFFICE OUTPATIENT VISIT 15 MINUTES 04/12/2020 12:00:00 AM EST [facility] ([facility], ) ARTHROCENTESIS ASPIR&/INJECTION MAJOR JT/BURSA 021 12:00:00 AM EST [facility] ([facility]) Mammogram 01/26/2020 12:00:00 AM EST M [facility] ([facility] ECG ROUTINE ECG W/LEAST 12 LDS W/I&R <td>POCT AMB EKG</td><td>Routine</td><td>01/19/2020 5:19 PM EST</td><td> Atrial flutter, unspecified type</td><td> </td> 01/19/2020 10:19:00 PM EST Atrial flutter, unspecified type [facility] Atrial flutter, unspecified type BLOOD COUNT COMPLETE AUTO&AUTO DIFRNTL WBC COUNT <td>C BC AND DIFFERENTIAL</td><td>Routine</td><td>12/08/2019</td><td></td><td> </td> 12/08/2019 12:00:00 AM EDT [facility] BASIC METABOLIC PANEL CALCIUM TOTAL <td>BASIC METABOLI C PANEL</td><td>Routine</td><td>12/08/2019</td><td></td><td> </td> 12/08/2019 12:00:00 AM EDT [facility] Results ID Date Data Source [id number] 01/21/2021 07:21:00 PM EST [facility] Name Value Range Interpretation Code Description Data Luz rce(s) Supporting Document(s) Appearance, Urine RFX Laboratory test result [facility] ([facility] Color, Urine RFX Laboratory test result [facility] ([facility] PH,Urine RFX 6.0 units 5.0-9.0 [facility] ([facility] Specific Marion Ur Auto RFX 1.006 1.002-1.035 [facility] ([facility] [...] [facility] ID Date Data Source [id number] 01/21/2021 07:21:00 PM EST [facility] ([facility] Name Value Range Interpretation Code Description Data Luz rce(s) Supporting Document(s) Reflex Urine Culture Laboratory test result [facility] ([facility] FULL REPORT IN LAB NOTES ([facility] and [facility] ). NO GROWTH ID Date Data Source [id number] 01/21/2021 06:46:00 PM EST [facility] ([facility] Name Value Range Interpretation Code Description Data Luz rce(s) Supporting Document(s) Blood Culture Laboratory test result [facility] ([facility] No growth after 24 hours . All specimens observed for 5 days. Results final at that time. ID Date Data Source [id number] 01/21/2021 06:46:00 PM EST [facility] ([facility] Name Value Range Interpretation Code Description Data Luz rce(s) Supporting Document(s) C reactive protein [Mass/volume] in Serum or Plasma by High sensitivity method 3.23 mg/dL 0.00-0.30 [facility] ([facility] ID Date Data Source [id number] 01/21/2021 06:46:00 PM EST [facility] ([facility] [...] Little GFR Left</content>
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
<content></content> Potassium Serum 4.4 meq/L 3.5-5.1 [facility] Chloride Level 105 meq/L 98-107 [facility] Anion Gap 7 meq/L 8-16 [facility] ([facility] Carbon Dioxide Level 28 meq/L 21-32 [facility] ([facility] Calcium Level 9.0 mg/dL 8.8-10.2 [facility] ([facility] ID Date Data Source [id number] 01/21/2021 06:46:00 PM EST [facility] ([facility] [...] [facility] ID Date Data Source [id number] 01/21/2021 06:46:00 PM EST [facility] ([facility] Name Value Range Interpretation Code Description Data Luz rce(s) Supporting Document(s) Erythrocyte sedimentation rate by 2H Westergren method 28 mm/hr 0-3 0 [facility] ([facility] ID Date Data Source [id number] 01/21/2021 06:46:00 PM EST [facility] ([facility] [...] % 24.0-44.0 [facility] ([facility] [place] % 9.5 % 2.0-8.0 [facility] ([facility]uzhat rivera [...] 10 1.5-5.0 [facility] [place] # 0.6 10 0.0-0.8 [facility] Eos # 0.3 10 0.0-0.5 [facility] ([facility] Baso # 0.0 10 0.0-0.2 [facility] ([facility] ID Date Data Source [id number] 01/21/2021 06:46:00 PM EST [facility] ([facility] Name Value Range Interpretation Code Description Data Luz rce(s) Supporting Document(s) Lactate [Mass/volume] in Serum or Plasma 1.5 mmol/L 0.4-2.0 [facility] ([facility] Y/N query for Sepsis Lactate Rule: Y ID Date Data Source [id number] 10/18/2020 04:26:00 PM EDT [facility] ([facility] Name Value Range Interpretation Code Description Data [facility](s) Supporting Document(s) Blood Culture Laboratory test result [...] AFTER 5 DAYS ID Date Data Source [id number] 10/18/2020 04:07:00 PM EDT [facility] ([facility] Name Value Range Interpretation Code Description Data [facility](s) Supporting Document(s) Influenza A Amplification Laboratory test [...] pathogens. DISCLAIMER: Testing was performed using the [employer] SARS-CoV-2 test. This test was developed and its performance characteristics determined by [employer]. This test has not been FDA cleared [...] or revoked sooner. ID Date Data Source [id number] 10/18/2020 04:07:00 PM EDT [facility] ([facility] [...] AFTER 5 DAYS ID Date Data Source [id number] 10/18/2020 04:07:00 PM EDT [facility] Name Value Range Interpretation Code Description [facility]) SARS coronavirus 2 RNA [Presence] in Res piratory specimen by TEO with probe detection NEGATIVE [facility] This lab was ordered by [facility] a nd reported by [facility]. ID Date Data Source [id number] 10/18/2020 01:47:00 PM EDT [facility] ([facility]hat Langley [...] % 36.0-66.0 [facility] [place] % 7.5 % 2.0-8.0 [facility] (Nuzhat rivera [...] 10 0.0-0.5 [facility] [place] # 0.4 10 0.0-0.8 [facility] Lymph # 0.7 10 1.5-5.0 [facility] Baso # 0.0 10 0.0-0.2 [facility] ID Date Data Source [id number] 10/18/2020 01:47:00 PM EDT [facility] ([facility] [...] <content>Troponin I Reference Interval f or Siemens Munith LOCI:</content>
<content></content>
<content>99th Percentile= 0.00-0.045 ng/ml</content>
<content></content>
<content>Risk Stratification:</content>
<content><= 0.10 ng/ml Decreased Risk for Adverse Clinical</content>
<content>Events.</content>
<content>0.10-1.50 ng/ml Increased Risk for Adverse Clinical</content>
<content>Events. Evaluation of additional</content>
<content>criterion and/or repeat testing in 2-6</content>
<content>hours is suggested to rule out myocardial</content>
<content>damage.</content>
<content>>= 1.50 ng/ml Indicative of Myocardial Injury.</content>
<content></content> ID Date Data Source [id number] 10/18/2020 01:47:00 PM EDT [facility] ([facility] [...] Little GFR Left</content>
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
<content></content> Creatinine For GFR 1.34 mg/dL 0.55-1.30 [...] [facility] ID Date Data Source [id number] 10/18/2020 01:47:00 PM EDT [facility] ([facility] L[facility] [...] [facility] ID Date Data Source [id number] 10/11/2020 03:31:00 PM EDT [facility] ([facility] Name Value Range Interpretation Code Description Data Luz rce(s) Supporting Document(s) Malb Urine Siemens 9.0 mg/L [facility] ([facility] Creatinine, Urine 52.4 mg/dL [facility] ([facility] Moose/Creat Ratio 17.1 MCG/MG 0.0-30.0 [facility] ([facility] THE [employer] STATES THAT MICROALBUMINURIA IS PRESENT IF THE MICROALBUMIN/CREATININE RATIO EXCEEDS 30 MCG/MG. THE THRESHOLD FOR CLINICAL ALBUMINURIA IS REACHED AT 300 MCG/MG. THE CLASSIFICATION OF A PATIENT SHOULD BE BASED UPON AT LEAST 2 OF 3 ABNORMAL RESULTS ON SPECIMENS COLLECTED WITHIN A 3 TO 6 MONTH TIME FRAME. ID Date Data Source [id number] 10/11/2020 03:31:00 PM EDT [facility] ([facility] [...] [facility] ID Date Data Source [id number] 10/11/2020 03:31:00 PM EDT [facility] ([facility] Name Value Range Interpretation Code Description Data Luz rce(s) Supporting Document(s) Hemoglobin A1c/Hemoglobin.total in Blood 5.9 % [facility] ([facility] <content>REFERENCE RANGES:</content><br/ ><content></content>
<content><=5.6% NORMAL</content>
<content>5.7-6.4% SUGGESTS IMPAIRED GLUCOSE METABOLISM/PREDIABETIC</content>
<content>>= 6.5% ABNORMAL</content>
<content></content> Estimated Average Glucose 123 mg/dL 60-110 [facility] ([facility] ID Date Data Source [id number] 10/11/2020 03:31:00 PM EDT [facility] ([facility] [...] Little GFR Left</content>
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
<content></content> Carbon Dioxide Level 30 meq/L 21-32 [...] [facility] ID Date Data Source [id number] 08/15/2020 11:05:00 AM EDT [facility] ([facility]) Name Value Range Interpretation Code Description Data Luz rce(s) Supporting Document(s) FVC-Pred 2.45 L [facility] ([facility], ) PDFReport Laboratory test result [facility] ([facility]) FVC-%Pred-Pre 63 L [facility] ([facility]) FVC-LLN 1.80 L [facility] ([facility]) FVC-Pre 1.55 L [facility] ([facility]) Fev1-Pre 1.31 L [facility] ([facility]) Fev1-Pred 1.82 L [facility] ([facility]) Fev1-%Pred-Pre 71 L [facility] ([facility], ) Fev6-Pred 2.32 L [facility] ([facility]) Fev1-LLN 1.27 L [facility] ([facility]) Fev6-%Pred-Pre 66 L [facility] ([facility]) Fev6-Pre 1.55 L [facility] ([facility]) Cvt0kzb-Dahx 74 % [facility] ([facility]) Nfi2zvz-Zdl 84 % [facility] ([facility]) Fev6-LLN 1.68 L [facility] ([facility]) Xes3kix-HTM 64 % [facility] ([facility]) Mrm4uie-%Pred-Pre 113 % [facility] ([facility]) Ndf9wvu-%Pred-Pre 105 % [facility] ([facility]) Lco5jek-Qgg 100 % [facility] ([facility]) Zgz9hqm-Vcji 95 % [facility] ([facility]) FEFMax-Pred 4.68 L/E/sec [facility] ([facility]) FEFMax-Pre 3.53 L/E/sec [facility] ([facility]) FEFMax-%Pred-Pre 75 L/E/sec [facility] ([facility]) FEFMax-LLN 3.07 L/E/sec [facility] ([facility]) Plv7546-Mytq 1.40 L/E/sec [facility] ([facility]) Mdo6748-EQF 0.23 L/E/sec [facility] ([facility]) Yxf7883-Glm 1.51 L/E/sec [facility] ([facility]) Pxe3207-%Pred-Pre 108 L/E/sec [facility] ([facility]) ExpTime-Pre 4.54 sec [facility] ([facility]) Kol2ncs1-Dukz 78 % [facility] ([facility]) Xhr0zgm5-Kdj 84 % [facility] ([facility]) Hac0flp7-%Pred-Pre 108 % [facility] ([facility]) Ktr8tsx2-IAD 69 % [facility] ([facility]) ID Date Data Source [id number] 08/03/2020 02:55:00 PM EDT [facility] ([facility]uzhat Langle[facility] [...] Little GFR Left</content>
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
<content></content> Chloride Level 97 meq/L 98-107 [facility] [...] [facility] ID Date Data Source [id number] 07/31/2020 01:30:00 PM EDT [facility] ([facility] L[facility] [...] Little GFR Left</content>
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
<content></content> Creatinine For GFR 1.33 mg/dL 0.55-1.30 [...] [facility] ID Date Data Source [id number] 07/26/2020 11:54:00 PM EDT [facility] ([facility] Name Value Range Interpretation Code Description Data Luz rce(s) Supporting Document(s) Troponin I.cardiac [Mass/volume] in Serum or Plasma 0.00 ng/mL 0.00-0 .08 [facility] ([facility] ID Date Data Source [id number] 06/24/2020 04:04:54 PM EDT [facility] Name Value Range Interpretation Code Description Data Luz rce(s) Supporting Document(s) &PDF [facility] DOPXTs4uJyYVDpBu19/SVYfqRSDhl8LhWRfxCLn8XNcbUFZyD1KajPzmWADRDsYCVYFvHO3RS9RJXzQu oRX [file] AgICAgICAgICAgICAgICAgICAgICAgICAgICAgICAgICAgICAgICAgICAgICAgICAgICAgDQogICAgIC AgICAgICAgICAgICAgICAgICAgICAgICAgICAgICAg ICAgICAgICAgICAgICAgICAgICAgICAgICAgICAgICAgICAgICAgICAgICAgICAgICAgICAgICAgICAg ICAgDQogICAgICAgICAgICAgICAgICAgICAgICAgICAgICAgICAgICAgICAgICAgICAgICAgICAgICAg ICAgICAgICAgICAgICAgICAgICAgICAgICAgICAgIC AgICAgICAgICAgICAgDQogICAgICAgICAgICAgICAgICAgICAgICAgICAgICAgICAgICAgICAgICAgIC AgICAgICAgICAgICAgICAgICAgICAgICAgICAgICAgICAgICAgICAgICAgICAgICAgICAgICAgDQogIC AgICAgICAgICAgICAgICAgICAgICAgICAgICAgICAg ICAgICAgICAgICAgICAgICAgICAgICAgICAgICAgICAgICAgICAgICAgICAgICAgICAgICAgICAgICAg ICAgICAgDQogICAgICAgICAgICAgICAgICAgICAgICAgICAgICAgICAgICAgICAgICAgICAgICAgICAg ICAgICAgICAgICAgICAgICAgICAgICAgICAgICAgIC AgICAgICAgICAgICAgICAgDQogICAgICAgICAgICAgICAgICAgICAgICAgICAgICAgICAgICAgICAgIC AgICAgICAgICAgICAgICAgICAgICAgICAgICAgICAgICAgICAgICAgICAgICAgICAgICAgICAgICAgDQ ogICAgICAgICAgICAgICAgICAgICAgICAgICAgICAg ICAgICAgICAgICAgICAgICAgICAgICAgICAgICAgICAgICAgICAgICAgICAgICAgICAgICAgICAgICAg ICAgICAgICAgDQogICAgICAgICAgICAgICAgICAgICAgICAgICAgICAgICAgICAgICAgICAgICAgICAg ICAgICAgICAgICAgICAgICAgICAgICAgICAgICAgIC AgICAgICAgICAgICAgICAgICAgDQogICAgICAgICAgICAgICAgICAgICAgICAgICAgICAgICAgICAgIC AgICAgICAgICAgICAgICAgICAgICAgICAgICAgICAgICAgICAgICAgICAgICAgICAgICAgICAgICAgIC OuANg2U3smYLSzILZiZG3vCFj1Bn7+DQoNCmVuZHN0 ysCtgF6EFW7fi7XtZXgaZYEjv3EfNJc7TO7JKZXyEUdiMG1FCXliag9ULUChHLPbbIMMi9bzBjObGZM9 XNHqIfphJQ9MWUJyS7qpqaLxKBVoUUZHEHkfHCDOZT9SNgVqS4UddF70QGFNKk8+DQplbmRvYmoNCjMz SJPxa6FvCTe5OE9TZWDpRJrhYL2FFLTzdB5fXGdiEE 5UDbAwQCHhEGKQCwUlN94quVDiKZc8G8ArZwWmIZJrTxwtCCKnTJpwJiFvJOWvYlEqHItxJH8+ID4+DQ xvRN7HUXwpkjYbWMFtEf7HOZBcOAL5TBGckEFiQbYsBKAKNRkvNM9NjRGnDPX9gO0iKMfwVEHnHKYrO2 dPXtMnaZgaCQ82vXlpdfTtwNBcXMo+Ef5GFS1nw7Dv YWr9smVrLRgaJIO3ONyoUXRzEEXiVQRwOBH5GJS4QKUFKdEvJZXlLNHnGJoxWBKuZFWvnr3TAVPnUIEm JWG7EHOxQYVfNJToCRwlXSItZKEoGSAmDCRpELUtTT5FWqDbTTZkRVLlXGFoILJpDFYldw5RMIBhTARo ZpH6IhJrRTCeHFHlKTqoDZLsWGBnWmRyYMQzNWUnOK 6RDgIfNHYjAPJuUfUiMBMbSZEire3QPTGlNXKvSLVlEhIrVSQkHGIrKJrmMLYbEIW4Nmt3NUNqZAPdRO 1TIgKtPVWaVPI1JYMkBSLkJBJkdx4WQRGbPQGrPtC9MeBgAYUiLJZhXMjpXALlFNQ8WhVdMDVlDEIxWU 1GDvJpNUYwEBn2XmGiEEWhDJJawe3NJCNqPMYtEPEu YxEpUOXcWHUpQLtgVEMgHKZeSQz1BEUcMXBwYN1QZrTxYIRiWPOmCUUuRRCdTJTndr2SHYBuNQNzXrZz UvSxVTRvHJFbDBmgXXZsWHEcYoJ0UFAbTQPqRZ4HQsNuNBKhUGA4JFXwOEWeHIBlbt5ESZKmWVGfEFwh WrYnXRKpNELpLWigQYHqOTQ8UKApMREqNFZaUK6XUg ScZQCvTJDqTBIeZPHwMELxoe5TMDVmDPVmUzZoQxKqOVKqGCOaANnqAZVsOJS2IpUwCMGqUPQbOU7OUf VbZFBzHJRrVUutLZNoIAOjvm4HETApSJVlHrpeXPMqZGHwGEZqEItaZPDgIRS6NZL6IYHfMNHvYM6QRx XiZHTuMMqiXijdLYSpGFCatn1BSCKaVNQpPlFfJqTx BZHrUZTcBKvuYQOiSMY7VJY1HUQvEFHwSA2BYhPqJQSpONevDpiwLPMoRZBbaf1PPNLeTVDwRUS5UvUz XRVgDNGpQRffEGPuOINwXSZ0GZGuFFQpWJ2DGfRdQNlrSYMLAoa7XDhvS7y4MRIgZD1MH2Chs5QvHdPa GHOGUYnvUZ2hjyDwSPXfLi9SB5hSOfecY1EzLDM4EZ HgCYYeQNNhDMa6Ghj2CRwuFObjDDW7TV2zAGLsSERjDEogACMhEEEcPBUwCJMcCZfjOeBsTAD0IxxkDs FhRJ2IYc9MBmM8ZYO6tWZaVh1UXbWpVCHVRxZcDV4JQMq= ID Date Data Source [id number] 06/06/2020 11:31:00 PM EDT [facility] (Nuzhat Langley [...] pathogens. DISCLAIMER: Testing was performed using the [employer] SARS-CoV-2 test. This test was developed and its performance characteristics determined by [employer]. This test has not been FDA cleared [...] or revoked sooner. ID Date Data Source [id number] 06/06/2020 11:31:00 PM EDT [facility] Name Value Range Interpretation Code Description Data Luz rce(s) Supporting Document(s) SARS coronavirus 2 RNA [Presence] in Res piratory specimen by TEO with probe detection NEGATIVE [facility] This lab was ordered by [facility] a nd reported by [facility]. ID Date Data Source [id number] 06/06/2020 10:54:00 PM EDT [facility] ([facility] Name Value Range Interpretation Code Description Data Luz e(s) Supporting Document(s) Natriuretic peptide.B prohormone N-Terminal [Mass/volu me] in Serum or Plasma 260 pg/mL [facility] ID Date Data Source [id number] 06/06/2020 10:54:00 PM EDT [facility] ([facility] Name Value Range Interpretation Code Description Data Lu[facility](s) Supporting Document(s) Blood Urea Nitrogen 22 [...] Little GFR Left</content>
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
<content></content> Sodium Level 140 meq/L 136-145 [facility] [...] [facility] ID Date Data Source [id number] 06/06/2020 10:54:00 PM EDT [facility] ([facility]uzhat Langley [...] [facility] ID Date Data Source [id number] 06/06/2020 10:54:00 PM EDT [facility] (Nuzhat Langley [...] <content>Troponin I Reference Interval f or Siemens Munith LOCI:</content>
<content></content>
<content>99th Percentile= 0.00-0.045 ng/ml</content>
<content></content>
<content>Risk Stratification:</content>
<content><= 0.10 ng/ml Decreased Risk for Adverse Clinical</content>
<content>Events.</content>
<content>0.10-1.50 ng/ml Increased Risk for Adverse Clinical</content>
<content>Events. Evaluation of additional</content>
<content>criterion and/or repeat testing in 2-6</content>
<content>hours is suggested to rule out myocardial</content>
<content>damage.</content>
<content>>= 1.50 ng/ml Indicative of Myocardial Injury.</content>
<content></content> ID Date Data Source [id number] 06/06/2020 10:54:00 PM EDT [facility] ([facility] Name Value Range Interpretation Code Description Data Luz rce(s) Supporting Document(s) Lactate [Mass/volume] in Serum or Plasma 1.9 mmol/L 0.4-2.0 [facility] ([facility] Y/N query for Sepsis Lactate Rule: Y ID Date Data Source [id number] 06/06/2020 10:54:00 PM EDT [facility] (Nuzhat Langley [...] % 24.0-44.0 [facility] ([facility] [place] % 6.9 % 2.0-8.0 [facility] (Nuzhat rivera [...] 10 1.5-8.5 [facility] ([facility] [place] # 0.6 10 0.0-0.8 [facility] ([facility] Eos # 0.2 10 0.0-0.5 [facility] ([facility] Baso # 0.0 10 0.0-0.2 [facility] ([facility] ID Date Data Source [id number] 05/18/2020 10:45:00 AM EDT [facility] (Nuzhat Langley [...] by the U.S. Food and Drug Administration. [facility] are designated as high complexity laboratories by the Clinical Laboratory Improvement Amendments of 1988(CLIA) and is qualified to perform this test. ASSAY INFORMATION: Real Time RT-PCR ID Date Data Source [id number] 05/18/2020 12:00:00 AM EDT [facility] Name Value Range Interpretation Code Description Data Luz rce(s) Supporting Document(s) SARS-CoV-2 (COVID-19) RNA [Presence] in Respiratory specimen by TEO with probe detection Not Detected [facility] This lab was ordered by [facility] and reported by [employer] [facility] ID Date Data Source [id number] 04/10/2020 12:00:00 AM EST [facility] oly Imaging Nuzhat Langley MD Patient Name: MYAH [id number] Date of : 1940[place] [address] Date of Exam: [facility]#: Fax: [phone] EXAM: LUMBSACRAL SPINE (2 [...] rce(s) Supporting Document(s) ID Date Data Source [id number] 04/10/2020 12:00:00 AM EST [facility] Imaging Nuzhat Langley MD Patient Name: MYAH [id number] [address] Date of : 1940[place] [address] Date of Exam: 04/10/2020#: Fax: [phone] EXAM: [...] rce(s) Supporting Document(s) ID Date Data Source [id number] 04/06/2020 07:29:00 PM EST [facility] ([facility] Name Value Range Interpretation Code Description Data Luz rce(s) Supporting Document(s) Appearance, Urine RFX Laboratory test result [facility] ([facility] Color, Urine RFX Laboratory test result [facility] ([facility] PH,Urine RFX 6.0 units 5.0-9.0 [facility] ([facility] Specific Marion Ur Auto RFX 1.030 1.002-1.035 [facility] (Nuzhat [...] [facility] ID Date Data Source [id number] 04/06/2020 05:47:00 PM EST [facility] ([facility]uzhat Langley [...] [facility] ID Date Data Source [id number] 04/06/2020 05:27:00 PM EST [facility] ([facility] Name Value Range Interpretation Code Description Data Luz rce(s) Supporting Document(s) Erythrocyte sedimentation rate by 2H Westergren method 35 mm/hr 0-3 0 [facility] ([facility] ID Date Data Source [id number] 04/06/2020 05:27:00 PM EST [facility] ([facility]uzhat Langley [...] % 36.0-66.0 [facility] ([facility] [place] % 5.7 % 2.0-8.0 [facility] ([facility] Lymph % 11.5 % 24.0-44.0 [facility] ([facility] Eos % 1.6 % 0.0-3.0 [facility] ([facility] Baso % 0.3 % 0.0-1.0 [facility] ([facility] Immature Granulocyte % 0.6 % 0-3.0 [facility] ([facility] Nucleated Red Blood Cell % 0.0 % 0-0 [facility] ([facility] Neutrophils # 6.9 10 1.5-8.5 [facility] ([facility] Lymph # 1.0 10 1.5-5.0 [facility] ([facility] [place] # 0.5 10 0.0-0.8 [facility] ([facility] Eos # 0.1 10 0.0-0.5 [facility] ([facility] Baso # 0.0 10 0.0-0.2 [facility] ([facility] ID Date Data Source [id number] 04/06/2020 05:27:00 PM EST [facility] ([facility] Name Value Range Interpretation Code Description Data Luz rce(s) Supporting Document(s) C reactive protein [Mass/volume] in Serum or Plasma by High sensitivity method 1.31 mg/dL 0.00-0.30 [facility] ([facility] ID Date Data Source [id number] 03/07/2020 11:43:00 PM EST [facility] (Nuzhat Langley [...] [facility] ID Date Data Source [id number] 03/07/2020 09:42:00 PM EST [facility] (Nuzhat Langley [...] - SARS-CoV-2 (COVID19) ID Date Data Source [id number] 03/07/2020 09:42:00 PM EST [facility] Name Value Range Interpretation Code Description Data Luz rce(s) Supporting Document(s) SARS-CoV-2 (COVID 19) NEGATIVE - SARS-CoV-2 (COVID19) [facility] This lab was ordered by [facility] a nd reported by [facility]. ID Date Data Source [id number] 01/31/2020 01:53:00 PM EST [facility] (Nuzhat Langley [...] [facility] ID Date Data Source [id number] 01/31/2020 01:53:00 PM EST [facility] ([facility] Name Value Range Interpretation Code Description Data Luz rce(s) Supporting Document(s) Natriuretic peptide.B prohormone N-Terminal [Mass/volu me] in Serum or Plasma 226 pg/mL [facility] ([facility] ID Date Data Source [id number] 01/31/2020 01:53:00 PM EST [facility] (Nuzhat Langley [...] Little GFR Left</content>
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
<content></content> Creatinine For GFR 1.48 mg/dL 0.55-1.30 [...] [facility] ID Date Data Source [id number] 01/31/2020 01:53:00 PM EST [facility] (Nuzhat Langley [...] [facility] ID Date Data Source [id number] 01/31/2020 01:53:00 PM EST [facility] ([facility] Name Value Range Interpretation Code Description [facility] CPK Creatine Phosphokinase 25 U/L [...] <content>Troponin I Reference Interval f or Siemens Munith LOCI:</content>
<content></content>
<content>99th Percentile= 0.00-0.045 ng/ml</content>
<content></content>
<content>Risk Stratification:</content>
<content><= 0.10 ng/ml Decreased Risk for Adverse Clinical</content>
<content>Events.</content>
<content>0.10-1.50 ng/ml Increased Risk for Adverse Clinical</content>
<content>Events. Evaluation of additional</content>
<content>criterion and/or repeat testing in 2-6</content>
<content>hours is suggested to rule out myocardial</content>
<content>damage.</content>
<content>>= 1.50 ng/ml Indicative of Myocardial Injury.</content>
<content></content> ID Date Data Source [id number] 01/31/2020 01:53:00 PM EST [facility] (Nuzhat Langley [...] % 24.0-44.0 [facility] [place] % 6.1 % 0.0-5.0 [facility] (Nuzhat rivera [...] 10 0.0-0.5 [facility] ([facility] [place] # 0.6 10 0.0-0.8 [facility] ([facility] Baso # 0.0 10 0.0-0.2 [facility] ID Date Data Source [id number] 01/24/2020 12:25:00 AM EST [facility] (Nuzhat Langley [...] <content>Troponin I Reference Interval f or Siemens Munith LOCI:</content>
<content></content>
<content>99th Percentile= 0.00-0.045 ng/ml</content>
<content></content>
<content>Risk Stratification:</content>
<content><= 0.10 ng/ml Decreased Risk for Adverse Clinical</content>
<content>Events.</content>
<content>0.10-1.50 ng/ml Increased Risk for Adverse Clinical</content>
<content>Events. Evaluation of additional</content>
<content>criterion and/or repeat testing in 2-6</content>
<content>hours is suggested to rule out myocardial</content>
<content>damage.</content>
<content>>= 1.50 ng/ml Indicative of Myocardial Injury.</content>
<content></content> ID Date Data Source [id number] 01/23/2020 09:51:00 PM EST [facility] (Nuzhat Langley [...] Little GFR Left</content>
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
<content></content> Creatinine For GFR 1.61 mg/dL 0.55-1.30 [...] [facility] ID Date Data Source [id number] 01/23/2020 09:51:00 PM EST [facility] ([facility]uzhat Langley [...] [facility] ID Date Data Source [id number] 01/23/2020 09:51:00 PM EST [facility] ([facility] Name Value Range Interpretation Code Description Data Luz rce(s) Supporting Document(s) CK-MB Value Mass Laboratory test result [facility] ([facility] CPK Creatine Phosphokinase 43 U/L 26-192 [facility] ([facility] Troponin I Laboratory test result [facility] ([facility] <content>Troponin I Reference Interval f or Siemens Munith LOCI:</content>
<content></content>
<content>99th Percentile= 0.00-0.045 ng/ml</content>
<content></content>
[...] > 4</content>
<content></content> ID Date Data Source [id number] 01/23/2020 09:51:00 PM EST [facility] (Nuzhat Langley [...] MYOCARDIAL INFARCTION 2.5-3.5 ID Date Data Source [id number] 01/23/2020 09:51:00 PM EST [facility] (Nuzhat Langley [...] % 11.5-14.5 [facility] ([facility] [place] % 5.0 % 0.0-5.0 [facility] (Nuzhat rivera [...] 10 0.0-0.5 [facility] ([facility] [place] # 0.5 10 0.0-0.8 [facility] ([facility] Baso # 0.0 10 0.0-0.2 [facility] ([facility] ID Date Data Source [id number] 01/23/2020 09:51:00 PM EST [facility] ([facility] Name Value Range Interpretation Code Description Data Luz rce(s) Supporting Document(s) Natriuretic peptide.B prohormone N-Terminal [Mass/volu me] in Serum or Plasma 519 pg/mL [facility] ([facility] ID Date Data Source [id number] 01/19/2020 02:58:00 PM EST [facility] ([facility] Name Value Range Interpretation Code Description Data Luz rce(s) Supporting Document(s) Hemoglobin A1c/Hemoglobin.total in Blood 6.5 % [facility] ([facility] <content>REFERENCE RANGES:</content><br/ ><content></content>
<content><=5.6% NORMAL</content>
<content>5.7-6.4% SUGGESTS IMPAIRED GLUCOSE METABOLISM/PREDIABETIC</content>
<content>>= 6.5% ABNORMAL</content>
<content></content> Estimated Average Glucose 140 mg/dL 60-110 [facility] ([facility] ID Date Data Source [id number] 01/19/2020 02:58:00 PM EST [facility] (Nuzhat Langley [...] Little GFR Left</content>
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
<content></content> Carbon Dioxide Level 37 meq/L 21-32 [...] [facility] ID Date Data Source [id number] 12/02/2019 07:46:00 PM EDT [facility] (Nuzhat Langley [...] pathogens. DISCLAIMER: Testing was performed using the [employer] SARS-CoV-2 test. This test was developed and its performance characteristics determined by [employer]. This test has not been FDA cleared [...] or revoked sooner. ID Date Data Source [id number] 12/02/2019 07:06:00 PM EDT [facility] (Nuzhat Langley [...] [facility] ID Date Data Source [id number] 12/02/2019 07:06:00 PM EDT [facility] (Nuzhat Langley [...] [facility] ID Date Data Source [id number] 12/02/2019 07:06:00 PM EDT [facility] ([facility] Name Value Range Interpretation Code Description Data Luz [facility](s) Supporting Document(s) Prothrombin Time 19.4 s [...] MYOCARDIAL INFARCTION 2.5-3.5 ID Date Data Source [id number] 12/02/2019 07:06:00 PM EDT [facility] ([facility] Name Value Range Interpretation Code Description Data [facility](s) Supporting Document(s) Red Blood Count 3.67 10 [...] % 24.0-44.0 [facility] ([facility] [place] % 7.1 % 0.0-5.0 [facility] (Nuzhat rivera [...] 10 0.0-0.5 [facility] ([facility] [place] # 0.6 10 0.0-0.8 [facility] ([facility] Baso # 0.0 10 0.0-0.2 [facility] ([facility] ID Date Data Source [id number] 12/02/2019 07:06:00 PM EDT [facility] (Nuzhat Langley [...] [facility] ID Date Data Source [id number] 12/02/2019 06:37:00 PM EDT [facility] ([facility] Name Value Range Interpretation Code Description Data Luz rce(s) Supporting Document(s) Troponin I.cardiac [Mass/volume] in Serum or Plasma 0.00 ng/mL 0.00-0 .08 [facility] ([facility] ID Date Data Source [id number] 12/02/2019 06:35:00 PM EDT [facility] (Nuzhat Langley [...] completed Patient is a former smoker [facility] ([facility], ) Alcohol intake 06/07/2020 12:00:00 AM EDT No completed [facility] Cigarette pack-years 06/07/2020 12:00:00 AM EDT UNK completed [facility] Cigarettes smoked current (pack per day) - Reported 06/08/19 12:00:00 AM EDT UNK completed [facility] Smoking 06/07/2020 12:00:00 AM EDT Former smoker completed Former smoker [facility] Alcohol intake 01/19/2020 12:00:00 AM EST No completed [facility] Cigarette pack-years 01/19/2020 12:00:00 AM EST UNK completed [facility] Cigarettes smoked current (pack per day) - Reported 01/19/20 20 12:00:00 AM EST UNK completed [facility] Smoking 01/19/2020 12:00:00 AM EST Former smoker completed Former smoker [facility] Vital Signs ID Date Data Source [...] 95 % [facility] ([facility] [place] body weight 105 [lb_av] 105 [lb_av] [facility] T ([facility] Body temperature 96.9 [degF] 96.9 [degF] [facility] ([facility] ) Body height 61.5 [in_i] 61.5 [in_i] [facility] ([facility] ) 5'1.50" Body weight 228.00 [lb_av] 228.00 [lb_av] [facility] T ([facility] ) Body mass index (BMI) [Ratio] 42.4 kg/m2 42.4 k g/m2 [facility] ([facility] ) Systolic blood pressure 124 mm[Hg] 124 mm[Hg] [facility] Diastolic blood pressure 62 mm[Hg] 62 mm[Hg] [facility] ([facility]) Heart rate 72 /min 72 /min [facility] ([facility]) Oxygen saturation in Arterial blood by Pulse oximetry 96 % 96 % [facility] ([facility]) Body height 62 [in_i] 62 [in_i] [facility] ([facility]) 5'2" Body weight 227.00 [lb_av] 227.00 [lb_av] [facility] T ([facility]) Body mass index (BMI) [Ratio] 41.5 kg/m2 41.5 k g/m2 [facility] ([facility]) [place] body weight 110 [lb_av] 110 [lb_av] [facility] Body weight 102.967 kg 102.967 kg [facility] ([facility]) Body surface area Derived from formula 2.02 m2 2.02 m2 [facility] ([facility]) Body temperature 97.3 [degF] 97.3 [degF] [facility] ([facility] Systolic blood pressure 107 mm[Hg] 107 mm[Hg] [facility] ([facility] Diastolic blood pressure 57 mm[Hg] 57 mm[Hg] [facility] ([facility] Heart rate 73 /min 73 /min [facility] Respiratory rate 20 /min 20 /min [facility] ( [facility] Body height 61.5 [in_i] 61.5 [in_i] [facility] 5'1.50" Body weight 235.12 [lb_av] 235.12 [lb_av] [facility] T ([facility] Oxygen saturation in Arterial blood by Pulse oximetry 96 % 96 % [facility] ([facility] [place] body weight 105 [lb_av] 105 [lb_av] [facility] T ([facility] Body mass index (BMI) [Ratio] 43.7 kg/m2 43.7 k g/m2 [facility] ([facility] [place] body weight 105 [lb_av] 105 [lb_av] [facility] T ([facility] Body mass index (BMI) [Ratio] 42.8 kg/m2 42.8 k g/m2 [facility] ([facility] Heart rate 100 /min 100 /min [facility] ([facility] Body temperature 96.7 [degF] 96.7 [degF] [facility] ([facility] Body weight [...] blood pressure 77 mm[Hg] 77 mm[Hg] [facility] ([facility], ) Systolic blood pressure 147 mm[Hg] 147 mm[Hg] M [facility] ([facility], ) Heart rate 70 /min 70 /min [facility] ([facility]) Body temperature 97.1 [degF] 97.1 [degF] [facility] ([facility]) Body mass index (BMI) [Ratio] 43.9 kg/m2 43.9 k g/m2 [facility] [place] body weight 110 [lb_av] 110 [lb_av] [facility] T ([facility]) Body weight 108.864 kg 108.864 kg [facility] ([facility]) Oxygen saturation in Arterial blood by Pulse oximetry 93 % 93 % [facility] ([facility]) Respiratory rate 18 /min 18 /min [facility] ( [facility]) Body height 62 [in_i] 62 [in_i] [facility] ([facility]) 5'2" Body weight 240.00 [lb_av] 240.00 [lb_av] [facility] T ([facility]) Body surface area Derived from formula 2.07 m2 2.07 m2 [facility] ([facility]) Oxygen saturation in Arterial blood by Pulse oximetry 100 % 100 % [facility] ([facility]) Respiratory rate 20 /min 20 /min [facility] ( [facility]) Body temperature 97.8 [degF] 97.8 [degF] [facility] ([facility]) Body height 62 [in_i] 62 [in_i] [facility] ([facility]) 5'2" Body weight 240.00 [lb_av] 240.00 [lb_av] [facility] T ([facility]) Body mass index (BMI) [Ratio] 43.9 kg/m2 43.9 k g/m2 [facility] [place] body weight 110 [lb_av] 110 [lb_av] [facility] T ([facility]) Body weight 108.864 kg 108.864 kg [facility] ([facility]) Body surface area Derived from formula 2.07 m2 2.07 m2 [facility] ([facility]) Heart rate 85 /min 85 /min [facility] ([facility]) Systolic blood pressure 126 mm[Hg] 126 mm[Hg] [facility] ([facility]) Diastolic blood pressure 65 mm[Hg] 65 mm[Hg] [facility] ([facility]) Systolic blood pressure 120 mm[Hg] 120 mm[Hg] [facility] Diastolic blood pressure 60 mm[Hg] 60 mm[Hg] [facility] Heart rate 93 /min 93 /min [facility] Body height 157.5 cm 157.5 cm [facility] Body weight 107.502 kg 107.502 kg [facility] Body mass index (BMI) [Ratio] 43.35 kg/m2 43.35 kg/m2 [facility] Oxygen saturation in Arterial blood by Pulse oximetry 93 % 93 % [facility] Systolic blood pressure 130 mm[Hg] 130 mm[Hg] [facility] ([facility], ) Heart rate 97 /min 97 /min [facility] ([facility], ) Diastolic blood pressure 70 mm[Hg] 70 mm[Hg] [facility] ([facility]) Oxygen saturation in Arterial blood by Pulse oximetry 94 % 94 % [facility] ([facility]) Body height 62 [in_i] 62 [in_i] [facility] ([facility]) 5'2" Body weight 240.00 [lb_av] 240.00 [lb_av] [facility] Body mass index (BMI) [Ratio] 43.9 kg/m2 43.9 k g/m2 [facility] ([facility]) [place] body weight 110 [lb_av] 110 [lb_av] [facility] T ([facility]) Body weight 108.864 kg 108.864 kg [facility] ([facility]) Body surface area Derived from formula 2.07 m2 2.07 m2 [facility] ([facility]) Heart rate 74 /min 74 /min [facility] ([facility] Systolic blood pressure 119 mm[Hg] 119 mm[Hg] [facility] Diastolic blood pressure [...] 95 % [facility] ([facility] [place] body weight 105 [lb_av] 105 [lb_av] [facility] T ([facility] Body weight 247.38 [lb_av] 247.38 [lb_av] [facility] T ([facility] Oxygen saturation in Arterial blood by Pulse oximetry 98 % 98 % [facility] ([facility] [place] body weight 105 [lb_av] 105 [lb_av] [facility] [...] [facility] 5'1.50" Systolic blood pressure 70 mm[Hg] 70 mm[Hg] M [facility] ([facility] Diastolic blood pressure 37 mm[Hg] 37 mm[Hg] [facility] ([facility] Body weight 208.25 [lb_av] 208.25 [lb_av] [facility] T ([facility] Heart rate 76 /min 76 /min [facility] ([facility] Oxygen saturation in Arterial blood by Pulse oximetry 96 % 96 % [facility] ([facility] [place] body weight 105 [lb_av] 105 [lb_av] [facility] T ([facility] Body mass index (BMI) [Ratio] 38.7 kg/m2 38.7 k g/m2 [facility] ([facility] Body temperature 97.1 [degF] 97.1 [degF] [facility] ([facility] Respiratory rate 20 /min 20 /min [facility] ( [facility] Body height 61.5 [in_i] 61.5 [in_i] [facility] ([facility] 5'1.50" Systolic blood pressure 132 mm[Hg] 132 mm[Hg] [facility] Diastolic blood pressure 60 mm[Hg] 60 mm[Hg] [facility] Heart rate 93 /min 93 /min [facility] Body height 157.5 cm 157.5 cm [facility] Body weight 113.853 kg 113.853 kg [facility] Body mass index (BMI) [Ratio] 45.91 kg/m2 45.91 kg/m2 [facility] Oxygen saturation in Arterial blood by Pulse oximetry 98 % 98 % [facility] Body temperature 97.3 [degF] 97.3 [degF] [facility] ([facility] Systolic blood pressure 108 mm[Hg] 108 mm[Hg] M [facility] ([facility] Respiratory rate 22 /min 22 /min [facility] ( [facility] Diastolic blood pressure 77 mm[Hg] 77 mm[Hg] [facility] ([facility] Body height 61.5 [in_i] 61.5 [in_i] [facility] ([facility] 5'1.50" Heart rate 93 /min 93 /min [facility] ([facility] Body weight 252.50 [lb_av] 252.50 [lb_av] [facility] T ([facility] Oxygen saturation in Arterial blood by Pulse oximetry 94 % 94 % [facility] ([facility] [place] body weight 105 [lb_av] 105 [lb_av] [facility] [...] 95 % [facility] ([facility] [place] body weight 105 [lb_av] 105 [lb_av] [facility] T ([facility] Body mass index (BMI) [Ratio] 47.1 kg/m2 47.1 k g/m2 [facility] ([facility] Body height 61.5 [in_i] 61.5 [in_i] [facility] ([facility] 5'1.50" Respiratory rate 26 /min 26 /min [facility] ( [facility] Body weight 253.38 [lb_av] 253.38 [lb_av] [facility] T ([facility] Oxygen saturation in Arterial blood by Pulse oximetry 94 % 94 % [facility] ([facility] on room air [place] body weight 105 [lb_av] 105 [lb_av] [facility] [...] 95 % [facility] ([facility] [place] body weight 105 [lb_av] 105 [lb_av] [facility] ([facility] Patient Treatment Plan of Care Planned Activity Planned Date Details Description Data Source (s) torsemide 20 MG Oral Tablet 01/12/2020 12:00:00 AM [facility] Metformin hydrochloride 500 MG Oral Tablet 01/11/2020 12:00:[address] [facility] Bacitracin 0.5 UNT/MG / Neomycin 0.0035 MG/MG / Polymyxin B 10 UNT/MG Topical Ointment 12/27/2019 12:00:00 AM EST [facility] Albuterol 0.833 MG/ML / Ipratropium Alvo 0.167 MG/M L Inhalant Solution 12/27/2019 12:00:00 AM EST [facility] Fluconazole 100 MG Oral Tablet 12/08/2019 12:00:00 AM EDT [facility] Prednisone 5 MG Oral Tablet 06/25/2019 12:00:00 AM EDT [facility] potassium chloride SA (K-DUR,KLOR-CON) 20 MEQ tablet 12:00:00 AM EDT [facility] Furosemide 40 MG Oral Tablet 06/11/2019 12:00:00 AM EDT [facility] tizanidine 4 MG Oral Tablet [facility] 60 ACTUAT Fluticasone propionate 0.5 MG/ ACTUAT / salmeterol 0.05 MG/ACTUAT Dry Powder Inhaler [facility]
== END 2021-01-23 22:31 | disposition left against medical advice (07) ==
LOC: M ED 20:47
DX: Z53.21 Procedure and treatment not carried out due to patient leaving prior to being seen by health care provider (principal)

== ENCOUNTER 2021-01-26 17:55 | Inpatient (IN) | payer MEDICARE, OTHER, MEDICAID ==
[~2021-01-26] VITALS: Ht 157.5 cm; Wt 97.3 kg
[~2021-01-26 17:55] MED LIST changes: -DILT1TAB12; -SPIR-10
[2021-01-26] MEDS ORDERED: FUROSEMIDE 100MG/10ML VIAL (J1940) IV ONE (18:15)
[2021-01-26] MEDS ORDERED: LIDOCAINE 2% 5ML JELLY UROJET TOP ONE (18:30)
[2021-01-26 18:36] LABS: BASO # 0.1 10^3/uL (0.0-0.2); BASO % 0.2 % (0.0-1.0); EOS % 0.2 % (0.0-3.0); HEMATOCRIT 35.3 % (36.0-47.0); HEMOGLOBIN 11.3 g/dl (12.0-15.5); LYMPH # 0.8 10^3/uL (1.5-5.0); LYMPH % 3.3 % (24.0-44.0); MEAN CORPUSCULAR HEMOGLOBIN 28.3 pg (27.0-33.0); MEAN CORPUSCULAR VOLUME 88.3 fl (80.0-96.0); MONO # 0.8 10^3/uL (0.0-0.8); MONO % 3.1 % (2.0-8.0); NEUTROPHILS # 23.8 10^3/uL (1.5-8.5); PLATELET COUNT, AUTOMATED 152 10^3/uL (150-450); WHITE BLOOD COUNT 25.8 10^3/uL (4.0-10.0)
--- NOTE | 2021-01-26 18:39 | REP ---
INDICATION: DYSPNEA/COUGH. COMPARISON: Portable chest, 10/18/2020. TECHNIQUE: AP portable chest image was obtained. FINDINGS: There is cardiomegaly, pulmonary venous hypertension and pulmonary interstitial edema consistent with congestive heart failure. There are bilateral pleural effusions. There is bibasilar airspace disease consistent with atelectasis. There is a dual lead pacemaker. IMPRESSION: Congestive heart failure with bilateral pleural effusions and bibasilar atelectasis. <Electronically signed by Nacho Jaramillo > 01/26/21 [id number]
[2021-01-26 19:19] LABS: ALBUMIN 2.8 GM/DL (3.2-5.2); BILIRUBIN,DIRECT 0.6 MG/DL (0.0-0.2); BILIRUBIN,TOTAL 1.5 MG/DL (0.2-1.0); CALCIUM LEVEL 9.2 MG/DL (8.8-10.2); CREATININE FOR GFR 1.68 MG/DL (0.55-1.30); GLOMERULAR FILTRATION RATE 31.3 (>39); POTASSIUM SERUM 4.6 MEQ/L (3.5-5.1); THYROID STIMULATING HORMONE 1.41 uIU/ML (0.358-3.740); THYROXINE (T4) 9.5 UG/DL (4.5-12.0); TOTAL PROTEIN 5.3 GM/DL (6.4-8.2)
--- OUTSIDE RECORDS SUMMARY | 2021-01-26 19:51 | CCD | Continuity of Care Document ---
Author Author Sana VEGA M.D. Organization Unknown Address [address] [place] [address] Phone [phone] Care Team Providers Care Grades 1 Thru 5 Teacher Name Role Phone Dhaval Manuel MD AUTM [phone] Nuzhat Vega MD AUTM [phone] Roberto Wallace MD AUTM [phone] [facility] General Surgery Practice - Surgery AUTM [phone] Freddy Gallegos MD AUTM [phone] [facility] - Medical Oncology AUTM [phone] [facility] Orthopedics - Sports Medicine AUTM [phone] [facility] Symptom [facility]/Relief AUTM [phone] Problems Active Problems Provider Date Solitary nodule of lung Plepatricia Criselda, V 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 Onset: 04/10/19 21 Chronic combined systolic and diastolic heart failure Pleska hansa Criselda, 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 Onset: 04/10/2020 Hypokalemia Plepatricia, Criselda, 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 Onset: 04/10/2020 Atrial fibrillation Pleskgian, Criselda, 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 Onset: 04/10/2020 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 Pleskach, Criselda, 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 Onset: 04/10/2020 Chronic obstructive lung disease Pleskach, Criselda, 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 Onset: 04/10/2020 Chronic kidney disease Pleskach, Criselda, 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 Onset: Type 2 diabetes mellitus in obese Pleskgian, Criselda, 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 Onset : 04/10/2020 Social History Type Date [...] Yes Smoke Alarms Carbon Monoxide Detector: Yes Allergies and adverse reactions Active Allergies Criticality Reaction | Severity Comments Date Codeine Unable to assess criticality 06/27/2003 Demerol Unable to assess criticality 06/27/2003 Septra Unable to assess criticality rash 11/24/2003 Doxycycline Unable to assess criticality vomiting 09/10/2018 Medications Active Medications SIG Qnty Indications Ordering Provide r Date Nystatin 514327Fwok/GM Cream apply to affected area in groin twice daily 30gm Vivian Herrera FNP 01/24/2021 Walker with seat and hand brakes, for [...] 400mg Tablets 1 by mouth every day 90tabs Criselda Herrera FNP 03/17/2020 Torsemide 20mg Tablets take 1-2 tablet twice a day 120tabs Nuzhat Vega M.D. 020 Metolazone 2.5mg Tablets 1 by mouth 1/2 hour before taking torsemide every day 90tabs Criselda Hrerera FNP 12/08/2019 Tylenol PM Extra Strength 500-25mg Tablets take 1 tablets before bed as scheduled 180tabs Pl Criselda connor FNP 11/27/2019 Medical Compression Socks/20-30MMHG/Extr a Large/Long Misc please measure and dispense for lower extremity edema 2units R60.0 Criselda Herrera FNP 10/20/2019 Bacitracin (External) 500Unit/GM O intment apply to affected areas bid 85.2gm Criselda Herrera FNP 09/20/2019 Potassium Chloride Keren ER 20Meq Tablets ER 1 by mouth twice a day 180tabs Criselda Herrera F NP 08/07/2019 Acetaminophen 325mg Tablets 2 by mouth every 6 hours as needed for leg pain. Unknown 08/07/2019 Bupropion Hydrochloride ER (XL) 150mg Tablets ER 24HR take one tablet by mouth once a day 90tabs F32.9 Criselda Herrera FNP 07/06/2019 Alcohol Prep 70% Pads use twice daily as directed before testing bs 1Box Criselda Herrera FNP 12/03/2018 Ipratropium [place]/Albuterol Sulfate 0.5-2.5(3)mg/3ML Solution use 1 vial via nebulizer 4 times daily a s needed for coughing and wheezing 90ml Criselda Herrera FNP 10/14 Neosporin Original 3.5-400-5000 Oi ntment apply to rash twice a day as needed 28.300gm R21 Emerson Herrera FNP 12/09/2017 TapIn.tve Blood Glucose Monitoring System Device use for monitoring blood glucose twice a day, dx e11.9, prognosis good, duration 99 months 1units Criselda Herrera, [facility] Freestyle Lite Test Strips use to check blood glucose 2 times a day, e11.9 200units SharonVivian jelani, [facility] 04/07/2017 Freestyle Lite Lancets Misc use to check fasting blood glusose twice daily, dx: e11.9 200units Merlin gomez Criselda, [facility] 04/07/2017 Citalopram Hydrobromide 40mg Table ts 1 tab by mouth every day 90tabs F32.9 Criselda Herrera, [facility] 03/13/19 18 Proair HFA 108(90Base) mcg/Act Aer osol 2 puffs every 4 hours as needed for wheezing and coughing 25.5gm Criselda Herrera, [facility] 04/12/2014 Diltiazem HCL 60mg Tablets 1 tab by mouth once a at bedtime 90tabs Criselda Herrera [facility] 0 Advair Diskus 500-50mcg/Dose Aeros ol inhale one puff by mouth every day 3units Vivian Herrera, [facility] Spironolactone 25mg Tablets take one tablet by mouth every afternoon * Diuretics to be staggered per Dr. Gallegos Unknown Tramadol HCL 50mg Tablets take 1 tablet by mouth every 6 hours as needed for pain 120tabs Criselda Herrera [facility] History Medications Nystatin 050593Pfps/GM Powder apply to affected area in groin twice daily 60gm Vivian Herrera, [facility] 01/22/2021 - 01/24/2021 Levofloxacin 500mg Tablets one tab daily for seven days 7tabs J44.9 Criselda Herrera [facility] 10/11/2020 - 12/27/2020 Immunizations CPT Code Status Date Vaccine Lot # [id number] Given 05/24/2020 Moderna Sars-(Co vid-19) vaccine, mRNA, LNP-S, PF, 100 mcg/ 0.5 mL 65430 Given 04/19/2020 Moderna Sars-(Co vid-19) vaccine, mRNA, LNP-S, PF, 100 mcg/ 0.5 mL 36996 Given 03/25/2018 Pneumococcal Vaccine [id number] 72265 Given 12/09/2017 Influenza Virus Vaccine, Jeremiah drivalent,multidose vial [id number] 12216 Given 03/23/2017 Pneumococcal Vaccine [id number] Given 12/04/2016 Influenza Vaccine (Fluzone)( medicare) [id number] Q2038 Given 11/14/2015 Influenza Vaccine (Fluzone)( medicare) [id number] 93365 Given 10/12/2015 Prevnar 13 For Adults 67085 Given 11/17/2013 Influenza Vaccination 52384 Given 11/18/2007 Influenza Vaccination [id number] 95923 Given 12/12/2006 Influenza Vaccination [id number] Vital Signs Date Vital Result Comment 10/11/2020 2:11pm BP Systolic 87 mmHg BP Diastolic 42 mmHg Heart Rate 75 /min Body Temperature 95.7 F Respiratory Rate 25 /min Height 61.5 inches 5'1.50" O2 % BldC Oximetry 95 % Peak Expiratory Flow Rate 292 Estimated Peak Flow Rate [place] Body Weight 105 lb 07/31/2020 11:15am BP Systolic 107 mmHg BP Diastolic 57 mmHg Heart Rate 73 /min Body Temperature 97.3 F Respiratory Rate 20 /min Height 61.5 inches 5'1.50" Weight 235.12 lb O2 % BldC Oximetry 96 % Peak Expiratory Flow Rate 292 Estimated Peak Flow Rate [place] Body Weight 105 lb BMI (Body Mass Index) 43.7 kg/m2 Results Test Acquired Date Facility Test Result H/L Range Note Reflex Urine Culture 01/21/2021 [place] [address] [phone] Reflex Urine Culture FULL REPORT IN L <SEE NOTE> Norm al 1 Laboratory test finding 01/21/2021 [place] [address] [phone] Lactic Acid Sepsis Protocol 1.5 mmol/L Normal 0.4- 2.0 2 CBC With Differential 01/21/2021 [place] [address] [phone] White Blood Count 6.7 10 Normal 4.0-10.0 Red Blood Count 3.52 10 Low 4.00-5.40 Hemoglobin 10.0 g/dL Low 12.0-15.5 Hematocrit 32.4 % Low 36.0-47.0 Mean Corpuscular Volume 92.0 fl Normal 80.0-96.0 Mean Corpuscular Hemoglobin 28.4 pg Normal 27.0-33.0 Mean Corpuscular HGB Conc 30.9 g/dL Low 32.0-36.5 Red Cell Distribution Width 15.3 % High 11.5-14.5 Platelet Count, Automated 119 10 Low 150-450 Neutrophils % 69.1 % High 36.0-66.0 Lymph % 16.1 % Low 24.0-44.0 [place] % 9.5 % High 2.0-8.0 Eos % 4.5 % High 0.0-3.0 Baso % 0.5 % Normal 0.0-1.0 Immature Granulocyte % 0.3 % Normal 0-3.0 Nucleated Red Blood Cell % 0.0 % Normal 0-0 Neutrophils # 4.6 10 Normal 1.5-8.5 Lymph # 1.1 10 Low 1.5-5.0 [place] # 0.6 10 Normal 0.0-0.8 Eos # 0.3 10 Normal 0.0-0.5 Baso # 0.0 10 Normal 0.0-0.2 Laboratory test finding 01/21/2021 [place] [address] [phone] Erythrocyte Sedimentation Rate 28 mm/hr Normal 0 -30 Liver Profile 01/21/2021 [place] [address] [phone] Ast/Sgot 7 U/L Normal 7-37 Alt/SGPT 8 U/L Low 12-78 Alkaline Phosphatase 69 U/L Normal 45-117 Bilirubin,Total 0.7 mg/dL Normal 0.2-1.0 Bilirubin,Direct 0.2 mg/dL Normal 0.0-0.2 Total Protein 5.5 GM/DL Low 6.4-8.2 Albumin 3.0 GM/DL Low 3.2-5.2 Albumin/Globulin Ratio 1.2 Normal 1.2-2.2 Basic Metabolic Profile 01/21/2021 [place] [address] [phone] Glucose, Fasting 98 mg/dL Normal 70-100 Blood Urea Nitrogen 17 mg/dL Normal 7-18 Creatinine For GFR 1.45 mg/dL High 0.55-1.30 Glomerular Filtration Rate 37.1 Low >39 3 Sodium Level 140 mEq/L Normal 136-145 Potassium Serum 4.4 mEq/L Normal 3.5-5.1 Chloride Level 105 mEq/L Normal 98-107 Carbon Dioxide Level 28 mEq/L Normal 21-32 Anion Gap 7 mEq/L Low 8-16 Calcium Level 9.0 mg/dL Normal 8.8-10.2 Laboratory test finding 01/21/2021 [place] [address] [phone] C Reactive Protein Quantitativ 3.23 mg/dL High 0 .00-0.30 Blood Culture 01/21/2021 Patient Service [place] [id number] [phone] Blood Culture No growth after <SEE NOTE> 4 Ua W/ Reflex To Culture 01/21/2021 [place] [address] [phone] Appearance, Urine RFX CLEAR Normal Clear Color, Urine RFX YELLOW Normal Yellow PH,Urine RFX 6.0 units Normal 5.0-9.0 Specific [place]utz Ur Auto RFX 1.006 Normal 1.002-1.035 Protein, Urine Auto RFX NEGATIVE mg/dL Normal Negative Glucose, Urine (Ua) Auto RFX NEGATIVE mg/dL Normal Negative Ketone, Urine Auto RFX NEGATIVE mg/dL Normal Negative Urobilinogen, Urine Auto RFX 0.2 mg/dL Normal 0.0-2.0 Bilirubin, Urine Auto RFX NEGATIVE Normal Negative Nitrite, Urine Auto RFX NEGATIVE Normal Negative Leukocyte Esterase Ur Auto RFX 2+ High Negative Blood, Urine Blood RFX 1+ High Negative WBC, Urine Auto RFX 2 /HPF Normal 0-3 RBC, Urine Auto RFX 0 /HPF Normal 0-3 Bacteria, Urine Auto RFX NEGATIVE Normal Negative Squam Epithelial Cell Ur Aurfx 2 /HPF Normal 0-6 Hyaline Cast, Urine Auto RFX 0 /LPF Normal 0-1 Blood Culture 10/18/2020 [place] [address] [phone] Blood Culture No growth after <SEE NOTE> 5 Laboratory test finding 10/18/2020 [place] [address] [phone] NT-Pro BNP 427 pg/mL Normal <450 C Reactive Protein Quantitativ 1.22 mg/dL High 0.00-0.30 Erythrocyte Sedimentation Rate 27 mm/hr Normal 0-30 Basic Metabolic Profile 10/18/2020 [place] [address] [phone] Glucose, Fasting 169 mg/dL High 70-100 Blood Urea Nitrogen 20 mg/dL High 7-18 Creatinine For GFR 1.34 mg/dL High 0.55-1.30 Glomerular Filtration Rate 40.7 Normal >39 6 Sodium Level 140 mEq/L Normal 136-145 Potassium Serum 4.3 mEq/L Normal 3.5-5.1 Chloride Level 106 mEq/L Normal 98-107 Carbon Dioxide Level 30 mEq/L Normal 21-32 Anion Gap 4 mEq/L Low 8-16 Calcium Level 8.7 mg/dL Low 8.8-10.2 Cardiac Marker Panel 10/18/[address] [place] [address] [phone] CPK Creatine Phosphokinase 15 U/L Low 26-19 2 CK-MB Value Mass < 1.0 NG/ML Normal <3.6 MB/CK Relative Index 6.67 High < Or =4 7 Troponin I < 0.02 NG/ML Normal < 0.10 8 CBC With Differential 10/18/2020 [place] [address] [phone] White Blood Count 5.3 10 Normal 4.0-10.0 [...] 36.0-66.0 Lymph % 12.6 % Low 24.0-44.0 [place] % 7.5 % Normal 2.0-8.0 Eos % 3.8 % High 0.0-3.0 Baso % 0.4 % Normal 0.0-1.0 Immature Granulocyte % 0.8 % Normal 0-3.0 Nucleated Red Blood Cell % 0.0 % Normal 0-0 Neutrophils # 4.0 10 Normal 1.5-8.5 Lymph # 0.7 10 Low 1.5-5.0 [place] # 0.4 10 Normal 0.0-0.8 Eos # 0.2 10 Normal 0.0-0.5 Baso # 0.0 10 Normal 0.0-0.2 Influenza A/B RSV Covid Amp 10/18/2020 Patient Serv [facility] [place] [address] [phone] Influenza A Amplification NEGATIVE Normal Negati ve 9 Influenza B Amplification NEGATIVE Normal Negative 10 RSV Amplification NEGATIVE Normal Negative 11 Sars Covid-19 Amplification NEGATIVE Normal Negative 12 Blood Culture 10/18/2020 Patient Service [facility] [place] [address] [phone] Blood Culture No growth after <SEE NOTE> 13 Comprehensive Metabolic Profil 10/11/2020 [facility] [phone] Glucose, Fasting 90 mg/dL Normal 70-100 Blood Urea Nitrogen 20 mg/dL High 7-18 Creatinine For GFR 1.42 mg/dL High 0.55-1.30 Glomerular Filtration Rate 38.1 Low >39 1 4 Sodium Level 139 mEq/L Normal 136-145 Potassium [...] Ratio 1.2 Normal 1.2-2.2 Hemoglobin A1c 10/11/2020 [facility] [place] [phone] Hemoglobin A1c 5.9 % Normal 15 Estimated Average Glucose 123 mg/dL High 60-110 Lipid Panel 10/11/2020 [facility] [place] [phone] Triglycerides Level 75 mg/dL Normal <150 Cholesterol Level 98 mg/dL Normal <200 HDL Cholesterol 46 mg/dL Normal >40 LDL Cholesterol 37 mg/dL Normal <100 Non-HDL-C 52 mg/dL Normal Cholesterol Risk Ratio 2.130 Normal <5 Microalbumin Random 10/11/2020 [facility] [place] [phone] Creatinine, Urine 52.4 mg/dL Normal Malb Urine Siemens 9.0 mg/L Normal Moose/Creat Ratio 17.1 MCG/MG Normal 0.0-30.0 16 Basic Metabolic Profile 08/03/2020 [facility] [phone] Glucose, Fasting 121 mg/dL High 70-100 Blood Urea Nitrogen 24 mg/dL High 7-18 Creatinine For GFR 1.55 mg/dL High 0.55-1.30 Glomerular Filtration Rate 34.4 Low >39 1 7 Sodium Level 136 mEq/L Normal 136-145 Potassium Serum 4.6 mEq/L Normal 3.5-5.1 Chloride Level 97 mEq/L Low 98-107 Carbon Dioxide Level 33 mEq/L High 21-32 Anion Gap 6 mEq/L Low 8-16 Calcium Level 9.8 mg/dL Normal 8.8-10.2 Basic Metabolic Profile 07/31/2020 [facility] [phone] Glucose, Fasting 173 mg/dL High 70-100 Blood Urea Nitrogen 21 mg/dL High 7-18 Creatinine For GFR 1.33 mg/dL High 0.55-1.30 Glomerular Filtration Rate 41.1 Normal >39 1 8 Sodium Level 138 mEq/L Normal 136-145 Potassium Serum 2.9 mEq/L Critical low 3.5-5.1 Chloride Level 99 mEq/L Normal 98-107 Carbon Dioxide Level 32 mEq/L Normal 21-32 Anion Gap 7 mEq/L Low 8-16 Calcium Level 9.7 mg/dL Normal 8.8-10.2 1 FULL REPORT IN LAB NOTES (eC W and Medent). NO GROWTH 2 Y/N query for Sepsis Lactate Rule: Y 3 Units are mL/min/1.73 m2 Chronic Kidney Disease Staging per NKF: Stage I & II GFR >=60 Normal to Mildly Decreased Stage III GFR 30-59 Moderately Decreased Stage IV GFR 15-29 Severely Decreased Stage V GFR <15 Very Little GFR Left ESRD GFR <15 on TRANSMISSION MAINTENANCE SUPERVISOR 4 No growth after 48 hours . A ll specimens observed for 5 days. Results final at that time. No growth after 24 hours . All specimens observed for 5 days. Results final at that time. No Growth after 72 hours. All specimens observed for 5 days. Results final at that time. 5 No growth after 72 hours . A ll specimens observed for 5 days. Results final at that time. No growth after 48 hours . All specimens observed for 5 days. Results final at that time. No growth after 24 hours . All specimens observed for 5 days. Results final at that time. NO GROWTH AFTER 5 DAYS 6 Units are mL/min/1.73 m2 Chronic Kidney Disease Staging per NKF: Stage I & II GFR >=60 Normal to Mildly Decreased Stage III GFR 30-59 Moderately Decreased Stage IV GFR 15-29 Severely Decreased Stage V GFR <15 Very Little GFR Left ESRD GFR <15 on TRANSMISSION MAINTENANCE SUPERVISOR 7 DIAGNOSIS CRITERIA MMB ng/ml Relative Index (RI) NON-AMI < or = 5 N/A GOYAL ZONE > 5 < or = 4 AMI > 5 > 4 8 Troponin I Reference Interva l for Siemens Multistat LOCI: 99th Percentile= 0.00-0.045 ng/ml Risk Stratification: <= 0.10 ng/ml Decreased Risk for Adverse Clinical Events. 0.10-1.50 ng/ml Increased Risk for Adv erse Clinical Events. Evaluation of additional criterion and/or repeat testing in 2-6 hours is suggested to rule out myocardial damage. >= 1.50 ng/ml Indicative of Myocardial Injury. 9 Negative results do not prec lude influenza or RSV virus infection and should not be used as the sole basis for treatment or other patient management decisions. 10 Negative results do not prec lude influenza or RSV virus infection and should not be used as the sole basis for treatment or other patient management decisions. 11 Negative results do not prec lude influenza or RSV virus infection and should not be used as the sole basis for treatment or other patient management decisions. 12 A false negative result may occur [...] pathogens. DISCLAIMER: Testing was performed using the [employer] SARS-CoV-2 test. This test was developed and its performance characteristics determined by [employer]. This test has not been FDA cleared [...] authorization is terminated or revoked sooner. 13 No growth after 72 hours . A ll specimens observed for 5 days. Results final at that time. No growth after 48 hours . All specimens observed for 5 days. Results final at that time. No growth after 24 hours . All specimens observed for 5 days. Results final at that time. NO GROWTH AFTER 5 DAYS 14 Units are mL/min/1.73 m2 Chronic Kidney Disease Staging per NKF: Stage I & II GFR >=60 Normal to Mildly Decreased Stage III GFR 30-59 Moderately Decreased Stage IV GFR 15-29 Severely Decreased Stage V GFR <15 Very Little GFR Left ESRD GFR <15 on TRANSMISSION MAINTENANCE SUPERVISOR 15 REFERENCE RANGES: <=5.6% NORMAL 5.7-6.4% SUGGESTS IMPAIRED GLUCOSE META BOLISM/PREDIABETIC >= 6.5% ABNORMAL 16 THE [place] ATION STATES THAT MICROALBUMINURIA IS PRESENT IF THE MICROALBUMIN/CREATININE RATIO EXCEEDS 30 MCG/MG. THE THRESHOLD FOR CLINICAL ALBUMINURIA IS REACHED AT 300 MCG/MG. THE CLASSIFICATION OF A PATIENT SHOULD BE BASED UPON AT LEAST 2 OF 3 ABNORMAL RESULTS ON SPECIMENS COLLECTED WITHIN A 3 TO 6 MONTH TIME FRAME. 17 Units are mL/min/1.73 m2 Chronic Kidney Disease Staging per NKF: Stage I & II GFR >=60 Normal to Mildly Decreased Stage III GFR 30-59 Moderately Decreased Stage IV GFR 15-29 Severely Decreased Stage V GFR <15 Very Little GFR Left ESRD GFR <15 on TRANSMISSION MAINTENANCE SUPERVISOR 18 Units are mL/min/1.73 m2 Chronic Kidney Disease Staging per NKF: Stage I & II GFR >=60 Normal to Mildly Decreased Stage III GFR 30-59 Moderately Decreased Stage IV GFR 15-29 Severely Decreased Stage V GFR <15 Very Little GFR Left ESRD GFR <15 on TRANSMISSION MAINTENANCE SUPERVISOR Procedures Date Code Description Status 01/10/2021 27122 Chronic Care MGMT 20 Mins Clinical Staff Time Per Calendar Month Completed 01/10/2021 03206 Chronic Care Management Services Ea Addl 20 Min Completed 11/29/2020 71960 Chronic Care MGMT 20 Mins Clinical Staff Time Per Calendar Month Completed 11/29/2020 58215 Chronic Care Management Services Ea Addl 20 Min Completed 10/30/2020 49053 Chronic Care MGMT 20 Mins Clinical Staff Time Per Calendar Month Completed 10/11/2020 92220 Office/Outpatient Established Mo d MDM 30-39 Min Completed 10/03/2020 97839 Chronic Care MGMT 20 Mins Clinical Staff Time Per Calendar Month Completed 08/30/2020 19716 Chronic Care MGMT 20 Mins Clinical Staff Time Per Calendar Month Completed 07/31/2020 64855 Office/Outpatient Established Mo d MDM 30-39 Min Completed 07/27/2020 62610 Chronic Care MGMT 20 Mins Clinical Staff Time Per Calendar Month Completed 07/12/2020 768839724 Diabetic Foot Exam Completed 01/26/2020 87199463 Mammogram Completed 05/09/2014 44779614 Mammogram Completed 04/27/2014 86870305 Mammogram Completed 12/10/2010 96910673 Mammogram Completed Medical Devices Description No Information Available Encounters Type Date Location Provider Dx Diagnosis Office Visit 10/11/2020 2:00p Main Office Criselda Herrera FNP 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 I70.212 [facility] [place] arteries of ex trm w intrmt damaris, left leg N18.9 Chronic kidney disease, unsp ecified E11.69 Type 2 diabetes mellitus wit h other specified complication J44.9 Chronic obstructive pulmonar y disease, unspecified R91.1 Solitary pulmonary nodule Office Visit 07/31/2020 11:00a Main Office Pleskach, Criselda, 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 I70.212 Athscl [place] arteries of ex trm w intrmt damaris, left leg N18.9 Chronic kidney disease, unsp ecified Assessments Date Code Description Provider 01/10/2021 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 Pleskach, Criselda, 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 01/10/2021 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, left leg Pleskach, Criselda, V 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 01/10/2021 N18.9 Chronic kidney disease, unspecif ied Pleskach, Criselda, 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 01/10/2021 E11.69 Type 2 diabetes mellitus with ot her specified complication Pleskach, Criselda, 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 01/10/2021 J44.9 Chronic obstructive pulmonary di sease, unspecified Pleskach, Criselda, V 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 01/10/2021 R91.1 Solitary pulmonary nodule Pleska ch, Criselda, V 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 11/29/2020 I50.42 Chronic combined sys tolic (congestive) and diastolic (congestive) heart failure Pleskach, Criselda, V 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 11/29/2020 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, left leg Pleskach, Criselda, V 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 11/29/2020 N18.9 Chronic kidney disease, unspecif ied Pleskach, Criselda, V 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 11/29/2020 E11.69 Type 2 diabetes mellitus with ot her specified complication Pleskach, Criselda, V 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 11/29/2020 J44.9 Chronic obstructive pulmonary di sease, unspecified Pleskach, Criselda, V 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 11/29/2020 R91.1 Solitary pulmonary nodule Pleska ch, Criselda, V 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 10/30/2020 I50.42 Chronic combined sys tolic (congestive) and diastolic (congestive) heart failure Pleskach, Criselda, V 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 10/30/2020 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, left leg Pleskach, Criselda, V 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 10/30/2020 N18.9 Chronic kidney disease, unspecif ied Pleskach, Criselda, V 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 10/30/2020 E11.69 Type 2 diabetes mellitus with ot her specified complication Pleskach, Criselda, V 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 10/30/2020 J44.9 Chronic obstructive pulmonary di sease, unspecified Pleskach, Criselda, V 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 10/30/2020 R91.1 Solitary pulmonary nodule Pleska ch, Criselda, V 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 10/11/2020 I50.42 Chronic combined sys tolic (congestive) and diastolic (congestive) heart failure Pleskach, Criselda, V 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 10/11/2020 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, left leg Pleskach, Criselda, V 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 10/11/2020 N18.9 Chronic kidney disease, unspecif ied Pleskach, Criselda, V 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 10/11/2020 E11.69 Type 2 diabetes mellitus with ot her specified complication Pleskach, Criselda, V 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 10/11/2020 J44.9 Chronic obstructive pulmonary di sease, unspecified Pleskach, Criselda, V [employer] 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 10/11/2020 R91.1 Solitary pulmonary nodule Pleska ch, Criselda, V [employer] 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 10/03/2020 I50.42 Chronic combined sys tolic (congestive) and diastolic (congestive) heart failure Pleskach, Criselda, V [employer] 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 10/03/2020 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, left leg Pleskach, Criselda, V 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 10/03/2020 N18.9 Chronic kidney disease, unspecif ied Pleskach, Criselda, V 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 10/03/2020 E11.69 Type 2 diabetes mellitus with ot her specified complication Pleskach, Criselda, V 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 10/03/2020 J44.9 Chronic obstructive pulmonary di sease, unspecified Pleskach, Criselda, V 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 10/03/2020 R91.1 Solitary pulmonary nodule Pleska ch, Criselda, V 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 08/30/2020 I50.42 Chronic combined sys tolic (congestive) and diastolic (congestive) heart failure Pleskach, Criselda, V 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 08/30/2020 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, left leg Pleskach, Criselda, 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 08/30/2020 N18.9 Chronic kidney disease, unspecif ied Pleskach, Criselda, V [employer] 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 08/30/2020 E11.69 Type 2 diabetes mellitus with ot her specified complication Pleskach, Criselda, V [employer] 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 08/30/2020 J44.9 Chronic obstructive pulmonary di sease, unspecified Pleskach, Criselda, V [employer] 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 08/30/2020 R91.1 Solitary pulmonary nodule Pleska ch, Criselda, V BEL[employer] 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 07/31/2020 I50.42 Chronic combined sys tolic (congestive) and diastolic (congestive) heart failure Pleskach, Criselda, V [employer] 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 07/31/2020 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, left leg Pleskach, Criselda, V [employer] 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 07/31/2020 N18.9 Chronic kidney disease, unspecif ied Pleskach, Criselda, V BEL[employer] 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 07/27/2020 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 Pleskach, Criselda, V [employer] 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 07/27/2020 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, left leg Pleskach, Rciselda, V [employer] 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 07/27/2020 N18.9 Chronic kidney disease, unspecif ied Pleskach, Criselda, V [employer] 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 07/27/2020 E11.69 Type 2 diabetes mellitus with ot her specified complication Pleskach, Criselda, V [employer]T 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 07/27/2020 J44.9 Chronic obstructive pulmonary di sease, unspecified Pleskach, Criselda, V [employer] 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 07/27/2020 R91.1 Solitary pulmonary nodule Pleska ch, Criselda, V [employer] 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 Plan of Treatment 10/11/2020 - Pleskach, Criselda, V [employer] 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* I50.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* Comments:* stable, continue medication as prescribed * Follow up:* January for annual * I70.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 of [place] arteries of extremities with intermittent claudication, left [...] Reason for Referral Status Appt Date [facility] Please evaluate patient for iron defiency anema, for iron infusion. Thank you. Scheduled 01/18/2021 8[address] [facility] [address] [phone] [facility] for Symptom Treatment/Relief referring jermaine genao for chronic disease care. thank you. Closed 09/20/2020 [address] [facility] [address] [phone]
--- OUTSIDE RECORDS SUMMARY | 2021-01-26 19:51 | CCD | Continuity of Care Document ---
Author Author Sana VEGA M.D. 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 - Medical Oncology AUTM [phone] [facility] Orthopedics - Sports Medicine AUTM [phone] [facility] for Symptom Treatment/Relief AUTM [phone] Problems Active Problems Provider Date Solitary nodule of lung Plepatricia Criselda, SALES OFFICE ASSISTANT Onset: 04/10/19 21 Chronic combined systolic and diastolic heart failure Pleska hansa Criselda, SALES OFFICE ASSISTANT Onset: 04/10/2020 Hypokalemia Plepatricia, Criselda, SALES OFFICE ASSISTANT Onset: 04/10/2020 Atrial fibrillation Pleskgian, Criselda, SALES OFFICE ASSISTANT Onset: 04/10/2020 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 Pleskach, Criselda, SALES OFFICE ASSISTANT Onset: 04/10/2020 Chronic obstructive lung disease Pleskach, Cirselda, SALES OFFICE ASSISTANT Onset: 04/10/2020 Chronic kidney disease Pleskach, Criselda, SALES OFFICE ASSISTANT Onset: Type 2 diabetes mellitus in obese Pleskgian, Criselda, SALES OFFICE ASSISTANT Onset : 04/10/2020 Social History Type Date [...] Qnty Indications Ordering Provide r Date Nystatin 986984Gudk/GM Cream apply to affected area in groin [...] bs 1Box Criselda Herrera FNP 12/03/2018 Ipratropium [place]/Albuterol Sulfate 0.5-2.5(3)mg/3ML Solution use 1 vial via nebulizer 4 times daily a s needed for coughing and wheezing 90ml Criselda Herrera FNP 10/14 Neosporin Original 3.5-400-5000 Oi ntment apply to rash twice a day as needed 28.300gm R21 Emerson Herrera FNP 12/09/2017 [place] Blood Glucose Monitoring System Device use for monitoring blood glucose twice a day, dx e11.9, prognosis good, duration 99 months 1units Criselda Herrera, [facility] Freestyle Lite Test Strips use to check blood glucose 2 times a day, e11.9 200units SharonVivian jelani, [facility] 04/07/2017 Freestyle Lite Lancets Misc use to check fasting blood glusose twice daily, dx: e11.9 200units Merlin gomez Criselda, [facility] 04/07/2017 Citalopram Hydrobromide 40mg Table ts 1 tab by mouth every day 90tabs F32.9 Criselda Herrera, [facility] 03/13/19 18 Proair HFA 108(90Base) mcg/Act Aer osol 2 puffs every 4 hours as needed for wheezing and coughing 25.5gm Criselda Herrera, [facility] 04/12/2014 Diltiazem HCL 60mg Tablets 1 tab by mouth once a at bedtime 90tabs Criselda Herrera [facility] 0 Advair Diskus 500-50mcg/Dose Aeros ol inhale one puff by mouth every day 3units Vivian Herrera, [facility] Spironolactone 25mg Tablets take one tablet by mouth every afternoon * Diuretics to be staggered per Dr. Gallegos Unknown Tramadol HCL 50mg Tablets take 1 tablet by mouth every 6 hours as needed for pain 120tabs Criselda Herrera [facility] History Medications Nystatin 905821Zyiu/GM Powder apply to affected area in groin twice daily 60gm Vivian Herrera, [facility] 01/22/2021 - 01/24/2021 Levofloxacin 500mg Tablets one tab daily for seven days 7tabs J44.9 Criselda Herrera [facility] 10/11/2020 - 12/27/2020 Immunizations CPT Code Status Date Vaccine Lot # [id number] Given 05/24/2020 Moderna Sars-(Co vid-19) vaccine, mRNA, LNP-S, PF, 100 mcg/ 0.5 mL [id number] Given 04/19/2020 Moderna Sars-(Co vid-19) vaccine, mRNA, LNP-S, PF, 100 mcg/ 0.5 mL 35918 Given 03/25/2018 Pneumococcal Vaccine [id number] 23022 Given 12/09/2017 Influenza Virus Vaccine, Jeremiah drivalent,multidose vial [id number] 17416 Given 03/23/2017 Pneumococcal Vaccine [id number] Given 12/04/2016 Influenza Vaccine (Fluzone)( medicare) [id number] Q2038 Given 11/14/2015 Influenza Vaccine (Fluzone)( medicare) [id number] 02669 Given 10/12/2015 Prevnar 13 For Adults 25349 Given 11/17/2013 Influenza Vaccination 45672 Given 11/18/2007 Influenza Vaccination [id number] 42662 Given 12/12/2006 Influenza Vaccination [id number] Vital Signs Date Vital Result Comment 10/11/2020 2:11pm BP Systolic 87 mmHg BP Diastolic 42 mmHg Heart Rate 75 /min Body Temperature 95.7 F Respiratory Rate 25 /min Height 61.5 inches 5'1.50" O2 % BldC Oximetry 95 % Peak Expiratory Flow Rate 292 Estimated Peak Flow Rate [place] Body Weight 105 lb 07/31/2020 11:15am BP Systolic 107 mmHg BP Diastolic 57 mmHg Heart Rate 73 /min Body Temperature 97.3 F Respiratory Rate 20 /min Height 61.5 inches 5'1.50" Weight 235.12 lb O2 % BldC Oximetry 96 % Peak Expiratory Flow Rate 292 Estimated Peak Flow Rate [place] Body Weight 105 lb BMI (Body Mass Index) 43.7 kg/m2 Results Test Acquired Date Facility Test Result H/L Range Note Reflex Urine Culture 01/21/2021 [place] [address] [phone] Reflex Urine Culture FULL REPORT IN L <SEE NOTE> Norm al 1 Laboratory test finding 01/21/2021 [place] [address] [phone] Lactic Acid Sepsis Protocol 1.5 mmol/L Normal 0.4- 2.0 2 CBC With Differential 01/21/2021 [place] [address] [phone] White Blood Count 6.7 10 Normal 4.0-10.0 [...] 36.0-66.0 Lymph % 16.1 % Low 24.0-44.0 Reynolds % 9.5 % High 2.0-8.0 Eos % 4.5 % High 0.0-3.0 Baso % 0.5 % Normal 0.0-1.0 Immature Granulocyte % 0.3 % Normal 0-3.0 Nucleated Red Blood Cell % 0.0 % Normal 0-0 Neutrophils # 4.6 10 Normal 1.5-8.5 Lymph # 1.1 10 Low 1.5-5.0 Reynolds # 0.6 10 Normal 0.0-0.8 Eos # 0.3 10 Normal 0.0-0.5 Baso # 0.0 10 Normal 0.0-0.2 Laboratory test finding 01/21/2021 [place] [address] [phone] Erythrocyte Sedimentation Rate 28 mm/hr Normal 0 -30 Liver Profile 01/21/2021 [place] [address] [phone] Ast/Sgot 7 U/L Normal 7-37 Alt/SGPT 8 U/L Low 12-78 Alkaline Phosphatase 69 U/L Normal 45-117 Bilirubin,Total 0.7 mg/dL Normal 0.2-1.0 Bilirubin,Direct 0.2 mg/dL Normal 0.0-0.2 Total Protein 5.5 GM/DL Low 6.4-8.2 Albumin 3.0 GM/DL Low 3.2-5.2 Albumin/Globulin Ratio 1.2 Normal 1.2-2.2 Basic Metabolic Profile 01/21/2021 [place] [address] [phone] Glucose, Fasting 98 mg/dL Normal 70-100 Blood [...] 8.8-10.2 Laboratory test finding 01/21/2021 [place] [address] [phone] C Reactive Protein Quantitativ 3.23 mg/dL High 0 .00-0.30 Blood Culture 01/21/2021 Patient Service [place] [id number] [phone] Blood Culture No growth after <SEE NOTE> 4 Ua W/ Reflex To Culture 01/21/2021 [place] [address] [phone] Appearance, Urine RFX CLEAR Normal Clear Color, Urine RFX YELLOW Normal Yellow PH,Urine RFX 6.0 units Normal 5.0-9.0 Specific [place] Ur Auto RFX 1.006 Normal 1.002-1.035 Protein, [...] Normal 0-1 Blood Culture 10/18/2020 [place] [address] [phone] Blood Culture No growth after <SEE NOTE> 5 Laboratory test finding 10/18/2020 [place] [address] [phone] NT-Pro BNP 427 pg/mL Normal <450 C Reactive Protein Quantitativ 1.22 mg/dL High 0.00-0.30 Erythrocyte Sedimentation Rate 27 mm/hr Normal 0-30 Basic Metabolic Profile 10/18/2020 [place] [address] [phone] Glucose, Fasting 169 mg/dL High 70-100 Blood [...] Marker Panel 10/18/[address] [place] [address] [phone] CPK Creatine Phosphokinase 15 U/L Low 26-19 2 CK-MB Value Mass < 1.0 NG/ML Normal <3.6 MB/CK Relative Index 6.67 High < Or =4 7 Troponin I < 0.02 NG/ML Normal < 0.10 8 CBC With Differential 10/18/2020 [place] [address] [phone] White Blood Count 5.3 10 Normal 4.0-10.0 [...] 36.0-66.0 Lymph % 12.6 % Low 24.0-44.0 Reynolds % 7.5 % Normal 2.0-8.0 Eos % 3.8 % High 0.0-3.0 Baso % 0.4 % Normal 0.0-1.0 Immature Granulocyte % 0.8 % Normal 0-3.0 Nucleated Red Blood Cell % 0.0 % Normal 0-0 Neutrophils # 4.0 10 Normal 1.5-8.5 Lymph # 0.7 10 Low 1.5-5.0 Reynolds # 0.4 10 Normal 0.0-0.8 Eos # 0.2 10 Normal 0.0-0.5 Baso # 0.0 10 Normal 0.0-0.2 Influenza A/B RSV Covid Amp 10/18/2020 Patient Serv [facility] [place] [address] [phone] Influenza A Amplification NEGATIVE Normal Negati ve 9 Influenza B Amplification NEGATIVE Normal Negative 10 RSV Amplification NEGATIVE Normal Negative 11 Sars Covid-19 Amplification NEGATIVE Normal Negative 12 Blood Culture 10/18/2020 Patient Service [facility] [place] [address] [phone] Blood Culture No growth after <SEE NOTE> 13 Comprehensive Metabolic Profil 10/11/2020 [facility] [phone] Glucose, Fasting 90 mg/dL Normal 70-100 Blood [...] Ratio 1.2 Normal 1.2-2.2 Hemoglobin A1c 10/11/2020 [facility] [phone] Hemoglobin A1c 5.9 % Normal 15 Estimated Average Glucose 123 mg/dL High 60-110 Lipid Panel 10/11/2020 [facility] [phone] Triglycerides Level 75 mg/dL Normal <150 Cholesterol Level 98 mg/dL Normal <200 HDL Cholesterol 46 mg/dL Normal >40 LDL Cholesterol 37 mg/dL Normal <100 Non-HDL-C 52 mg/dL Normal Cholesterol Risk Ratio 2.130 Normal <5 Microalbumin Random 10/11/2020 [facility] [phone] Creatinine, Urine 52.4 mg/dL Normal Malb Urine Siemens 9.0 mg/L Normal Moose/Creat Ratio 17.1 MCG/MG Normal 0.0-30.0 16 Basic Metabolic Profile 08/03/2020 [facility] [phone] Glucose, Fasting 121 mg/dL High 70-100 Blood [...] mg/dL Normal 8.8-10.2 Basic Metabolic Profile 07/31/2020 [facility] [phone] Glucose, Fasting 173 mg/dL High 70-100 Blood [...] Laboratory test finding 07/26/2020 [facility] [place], [place] [id number] [phone] iSTAT Troponin 0.00 NG/ML Normal 0.00-0.08 1 FULL REPORT IN LAB NOTES (eC [...] Little GFR Left ESRD GFR <15 on PIGSKIN TRIMMER 4 No growth after 48 hours . [...] Little GFR Left ESRD GFR <15 on PIGSKIN TRIMMER 7 DIAGNOSIS CRITERIA MMB ng/ml Relative Index (RI) NON-AMI < or = 5 N/A GOYAL ZONE > 5 < or = 4 AMI > 5 > 4 8 Troponin I Reference Interva l for TUTORize LOCI: 99th Percentile= 0.00-0.045 ng/ml Risk Stratification: [...] pathogens. DISCLAIMER: Testing was performed using the [employer] SARS-CoV-2 test. This test was developed and its performance characteristics determined by [employer]. This test has not been FDA cleared [...] Little GFR Left ESRD GFR <15 on PIGSKIN TRIMMER 15 REFERENCE RANGES: <=5.6% NORMAL 5.7-6.4% SUGGESTS IMPAIRED GLUCOSE META BOLISM/PREDIABETIC >= 6.5% ABNORMAL 16 THE [place] ATION STATES THAT MICROALBUMINURIA IS [...] Little GFR Left ESRD GFR <15 on PIGSKIN TRIMMER 18 Units are mL/min/1.73 m2 Chronic Kidney Disease Staging per NKF: Stage I & II GFR >=60 Normal to Mildly Decreased Stage III GFR 30-59 Moderately Decreased Stage IV GFR 15-29 Severely Decreased Stage V GFR <15 Very Little GFR Left ESRD GFR <15 on PIGSKIN TRIMMER Procedures Date Code Description Status 01/10/2021 53411 Chronic Care MGMT 20 Mins Clinical Staff Time Per Calendar Month Completed 01/10/2021 64500 Chronic Care Management Services Ea Addl 20 Min Completed 11/29/2020 13865 Chronic Care MGMT 20 Mins Clinical Staff Time Per Calendar Month Completed 11/29/2020 83458 Chronic Care Management Services Ea Addl 20 Min Completed 10/30/2020 66230 Chronic Care MGMT 20 Mins Clinical Staff Time Per Calendar Month Completed 10/11/2020 61815 Office/Outpatient Established Mo d MDM 30-39 Min Completed 10/03/2020 80243 Chronic Care MGMT 20 Mins Clinical Staff Time Per Calendar Month Completed 08/30/2020 21822 Chronic Care MGMT 20 Mins Clinical Staff Time Per Calendar Month Completed 07/31/2020 92671 Office/Outpatient Established Mo d MDM 30-39 Min Completed 07/27/2020 52477 Chronic Care MGMT 20 Mins Clinical Staff Time Per Calendar Month Completed 07/12/2020 451310320 Diabetic Foot Exam Completed 01/26/2020 60446059 Mammogram Completed 05/09/2014 92834953 Mammogram Completed 04/27/2014 67109837 Mammogram Completed 12/10/2010 09961539 Mammogram Completed Medical Devices Description No Information Available Encounters Type Date Location Provider Dx Diagnosis Office Visit 10/11/2020 2:00p Main Office Criselda Herrera, SALES OFFICE ASSISTANT 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 I70.212 [place] [facility] of ex trm w intrmt damaris, left leg N18.9 Chronic kidney disease, unsp ecified E11.69 Type 2 diabetes mellitus wit h other specified complication J44.9 Chronic obstructive pulmonar y disease, unspecified R91.1 Solitary pulmonary nodule Office Visit 07/31/2020 11:00a Main Office Pleskach, Criselda, SALES OFFICE ASSISTANT 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 I70.212 [place]scl [place] arteries of ex trm w intrmt damaris, left leg N18.9 Chronic kidney disease, unsp ecified Assessments Date Code Description Provider 01/10/2021 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 Pleskach, Criselda, SALES OFFICE ASSISTANT 01/10/2021 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, left leg Pleskach, Criselda, SALES OFFICE ASSISTANT 01/10/2021 N18.9 Chronic kidney disease, unspecif ied Pleskach, Criselda, SALES OFFICE ASSISTANT 01/10/2021 E11.69 Type 2 diabetes mellitus with ot her specified complication Pleskach, Criselda, SALES OFFICE ASSISTANT 01/10/2021 J44.9 Chronic obstructive pulmonary di sease, unspecified Pleskach, Criselda, SALES OFFICE ASSISTANT 01/10/2021 R91.1 Solitary pulmonary nodule Pleska ch, Criselda, SALES OFFICE ASSISTANT 11/29/2020 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 Pleskach, Criselda, SALES OFFICE ASSISTANT 11/29/2020 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, left leg Pleskach, Criselda, SALES OFFICE ASSISTANT 11/29/2020 N18.9 Chronic kidney disease, unspecif ied Pleskach, Criselda, SALES OFFICE ASSISTANT 11/29/2020 E11.69 Type 2 diabetes mellitus with ot her specified complication Pleskach, Criselda, SALES OFFICE ASSISTANT 11/29/2020 J44.9 Chronic obstructive pulmonary di sease, unspecified Pleskach, Criselda, SALES OFFICE ASSISTANT 11/29/2020 R91.1 Solitary pulmonary nodule Pleska ch, Criselda, SALES OFFICE ASSISTANT 10/30/2020 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 Pleskach, Criselda, SALES OFFICE ASSISTANT 10/30/2020 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, left leg Pleskach, Criselda, SALES OFFICE ASSISTANT 10/30/2020 N18.9 Chronic kidney disease, unspecif ied Pleskach, Criselda, SALES OFFICE ASSISTANT 10/30/2020 E11.69 Type 2 diabetes mellitus with ot her specified complication Pleskach, Criselda, SALES OFFICE ASSISTANT 10/30/2020 J44.9 Chronic obstructive pulmonary di sease, unspecified Pleskach, Criselda, SALES OFFICE ASSISTANT 10/30/2020 R91.1 Solitary pulmonary nodule Pleska ch, Criselda, SALES OFFICE ASSISTANT 10/11/2020 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 Pleskach, Criselda, SALES OFFICE ASSISTANT 10/11/2020 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, left leg Pleskach, Criselda, SALES OFFICE ASSISTANT 10/11/2020 N18.9 Chronic kidney disease, unspecif ied Pleskach, Criselda, SALES OFFICE ASSISTANT 10/11/2020 E11.69 Type 2 diabetes mellitus with ot her specified complication Pleskach, Criselda, SALES OFFICE ASSISTANT 10/11/2020 J44.9 Chronic obstructive pulmonary di sease, unspecified Pleskach, Criselda, SALES OFFICE ASSISTANT 10/11/2020 R91.1 Solitary pulmonary nodule Pleska ch, Criselda, SALES OFFICE ASSISTANT 10/03/2020 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 Pleskach, Criselda, SALES OFFICE ASSISTANT 10/03/2020 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, left leg Pleskach, Criselda, SALES OFFICE ASSISTANT 10/03/2020 N18.9 Chronic kidney disease, unspecif ied Pleskach, Criselda, SALES OFFICE ASSISTANT 10/03/2020 E11.69 Type 2 diabetes mellitus with ot her specified complication Pleskach, Criselda, SALES OFFICE ASSISTANT 10/03/2020 J44.9 Chronic obstructive pulmonary di sease, unspecified Pleskach, Criselda, SALES OFFICE ASSISTANT 10/03/2020 R91.1 Solitary pulmonary nodule Pleska ch, Criselda, SALES OFFICE ASSISTANT 08/30/2020 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 Pleskach, Criselda, SALES OFFICE ASSISTANT 08/30/2020 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, left leg Pleskach, Criselda, SALES OFFICE ASSISTANT 08/30/2020 N18.9 Chronic kidney disease, unspecif ied Pleskach, Criselda, SALES OFFICE ASSISTANT 08/30/2020 E11.69 Type 2 diabetes mellitus with ot her specified complication Pleskach, Criselda, SALES OFFICE ASSISTANT 08/30/2020 J44.9 Chronic obstructive pulmonary di sease, unspecified Pleskach, Criselda, SALES OFFICE ASSISTANT 08/30/2020 R91.1 Solitary pulmonary nodule Pleska Criselda santo, SALES OFFICE ASSISTANT 07/31/2020 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 Pleskach, Criselda, SALES OFFICE ASSISTANT 07/31/2020 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, left leg Pleskach, Criselda, SALES OFFICE ASSISTANT 07/31/2020 N18.9 Chronic kidney disease, unspecif ied Pleskach, Criselda, SALES OFFICE ASSISTANT 07/27/2020 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 Pleskach, Criselda, SALES OFFICE ASSISTANT 07/27/2020 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, left leg Pleskach, Criselda, SALES OFFICE ASSISTANT 07/27/2020 N18.9 Chronic kidney disease, unspecif ied Pleskach, Criselda, SALES OFFICE ASSISTANT 07/27/2020 E11.69 Type 2 diabetes mellitus with ot her specified complication Pleskach, Criselda, SALES OFFICE ASSISTANT 07/27/2020 J44.9 Chronic obstructive pulmonary di sease, unspecified Pleskach, Criselda, SALES OFFICE ASSISTANT 07/27/2020 R91.1 Solitary pulmonary nodule Merlinska Criselda santo FNP Plan of Treatment Future Appointment(s):* 01/25/2021 11:45 am - Criselda Herrera FNP at Main Office 10/11/2020 - Criselda Herrera FNP* I50.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* Comments:* stable, continue medication as prescribed * Follow up:* January for annual * I70.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 of [place] arteries of extremities with intermittent claudication, [...] Refer to Reason for Referral Status Appt [facility] Please evaluate patient for iron defiency anema, for iron infusion. Thank you. Scheduled 01/18/2021 8[address] [facility] [address] [phone] [facility] for Symptom Treatment/Relief referring jermaine genao for chronic disease care. thank you. Closed 09/20/2020 [address] [facility] [address] [phone]
--- OUTSIDE RECORDS SUMMARY | 2021-01-26 19:51 | CCD | Continuity of Care Document ---
Author Author Sana VEGA M.D. 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 Name Role Phone Dhaval Manuel MD AUTM [phone] Nuzhat Vega MD AUTM [phone] Roberto Wallace MD AUTM [phone] [facility] General Surgery Practice - Surgery AUTM [phone] Freddy Gallegos MD AUTM [phone] [facility] - Medical Oncology AUTM [phone] [facility] Orthopedics - Sports Medicine AUTM [phone] [facility] for Symptom Treatment/Relief AUTM [phone] Problems Active Problems Provider Date Solitary nodule of lung Plepatricia Criselda, INFORMATION CONSULTANT Onset: 04/10/19 21 Chronic combined systolic and diastolic heart failure Pleska hansa Criselda, INFORMATION CONSULTANT Onset: 04/10/2020 Hypokalemia Plepatricia, Criselda, INFORMATION CONSULTANT Onset: 04/10/2020 Atrial fibrillation Pleskgian, Criselda, INFORMATION CONSULTANT Onset: 04/10/2020 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 Pleskach, Criselda, INFORMATION CONSULTANT Onset: 04/10/2020 Chronic obstructive lung disease Pleskach, Criselda, INFORMATION CONSULTANT Onset: 04/10/2020 Chronic kidney disease Pleskach, Criselda, INFORMATION CONSULTANT Onset: Type 2 diabetes mellitus in obese Pleskgian, Criselda, INFORMATION CONSULTANT Onset : 04/10/2020 Social History Type Date [...] Qnty Indications Ordering Provide r Date Nystatin 867471Dlyl/GM Cream apply to affected area in groin [...] bs 1Box Criselda Herrera FNP 12/03/2018 Ipratropium Pattison/Albuterol Sulfate 0.5-2.5(3)mg/3ML Solution use 1 vial via nebulizer 4 times daily a s needed for coughing and wheezing 90ml Criselda Herrera FNP 10/14 Neosporin Original 3.5-400-5000 Oi ntment apply to rash twice a day as needed 28.300gm R21 Emerson Herrera FNP 12/09/2017 Smartpaye Blood Glucose Monitoring System Device use for monitoring blood glucose twice a day, dx e11.9, prognosis good, duration 99 months 1units Criselda Herrera, [facility] Freestyle Lite Test Strips use to check blood glucose 2 times a day, e11.9 200units SharonVivian jelani, [facility] 04/07/2017 Freestyle Lite Lancets Misc use to check fasting blood glusose twice daily, dx: e11.9 200units Merlin gomez Criselda, [facility] 04/07/2017 Citalopram Hydrobromide 40mg Table ts 1 tab by mouth every day 90tabs F32.9 Criselda Herrera, [facility] 03/13/19 18 Proair HFA 108(90Base) mcg/Act Aer osol 2 puffs every 4 hours as needed for wheezing and coughing 25.5gm Criselda Herrera, [facility] 04/12/2014 Diltiazem HCL 60mg Tablets 1 tab by mouth once a at bedtime 90tabs Criselda Herrera [facility] 0 Advair Diskus 500-50mcg/Dose Aeros ol inhale one puff by mouth every day 3units Vivian Herrera, [facility] Spironolactone 25mg Tablets take one tablet by mouth every afternoon * Diuretics to be staggered per Dr. Gallegos Unknown Tramadol HCL 50mg Tablets take 1 tablet by mouth every 6 hours as needed for pain 120tabs Criselda Herrera [facility] History Medications Nystatin 416169Tdxo/GM Powder apply to affected area in groin twice daily 60gm Vivian Herrera, [facility] 01/22/2021 - 01/24/2021 Levofloxacin 500mg Tablets one tab daily for seven days 7tabs J44.[address] [facility] 10/11/2020 - 12/27/2020 Immunizations CPT Code Status Date Vaccine Lot # [id number] Given 05/24/2020 Moderna Sars-(Co vid-19) vaccine, mRNA, LNP-S, PF, 100 mcg/ 0.5 mL 52788 Given 04/19/2020 Moderna Sars-(Co vid-19) vaccine, mRNA, LNP-S, PF, 100 mcg/ 0.5 mL 42785 Given 03/25/2018 Pneumococcal Vaccine [id number] 29698 Given 12/09/2017 Influenza Virus Vaccine, Jeremiah drivalent,multidose vial [id number] 00770 Given 03/23/2017 Pneumococcal Vaccine [id number] Given 12/04/2016 Influenza Vaccine (Fluzone)( medicare) [id number] Q2038 Given 11/14/2015 Influenza Vaccine (Fluzone)( medicare) [id number] 12941 Given 10/12/2015 Prevnar 13 For Adults 76803 Given 11/17/2013 Influenza Vaccination 06278 Given 11/18/2007 Influenza Vaccination [id number] 02923 Given 12/12/2006 Influenza Vaccination [id number] Vital Signs Date Vital Result Comment 10/11/2020 2:11pm BP Systolic 87 mmHg BP Diastolic 42 mmHg Heart Rate 75 /min Body Temperature 95.7 F Respiratory Rate 25 /min Height 61.5 inches 5'1.50" O2 % BldC Oximetry 95 % Peak Expiratory Flow Rate 292 Estimated Peak Flow Rate [place] Body Weight 105 lb 07/31/2020 11:15am BP Systolic 107 mmHg BP Diastolic 57 mmHg Heart Rate 73 /min Body Temperature 97.3 F Respiratory Rate 20 /min Height 61.5 inches 5'1.50" Weight 235.12 lb O2 % BldC Oximetry 96 % Peak Expiratory Flow Rate 292 Estimated Peak Flow Rate [place] Body Weight 105 lb BMI (Body Mass Index) 43.7 kg/m2 Results Test Acquired Date Facility Test Result H/L Range Note Reflex Urine Culture 01/21/2021 [place] [address] [phone] Reflex Urine Culture FULL REPORT IN L <SEE NOTE> Norm al 1 Laboratory test finding 01/21/2021 [place] [address] [phone] Lactic Acid Sepsis Protocol 1.5 mmol/L Normal 0.4- 2.0 2 CBC With Differential 01/21/2021 [place] [address] [phone] White Blood Count 6.7 10 Normal 4.0-10.0 [...] 36.0-66.0 Lymph % 16.1 % Low 24.0-44.0 Mccormick % 9.5 % High 2.0-8.0 Eos % 4.5 % High 0.0-3.0 Baso % 0.5 % Normal 0.0-1.0 Immature Granulocyte % 0.3 % Normal 0-3.0 Nucleated Red Blood Cell % 0.0 % Normal 0-0 Neutrophils # 4.6 10 Normal 1.5-8.5 Lymph # 1.1 10 Low 1.5-5.0 Mccormick # 0.6 10 Normal 0.0-0.8 Eos # 0.3 10 Normal 0.0-0.5 Baso # 0.0 10 Normal 0.0-0.2 Laboratory test finding 01/21/2021 [place] [address] [phone] Erythrocyte Sedimentation Rate 28 mm/hr Normal 0 -30 Liver Profile 01/21/2021 [place] [address] [phone] Ast/Sgot 7 U/L Normal 7-37 Alt/SGPT 8 U/L Low 12-78 Alkaline Phosphatase 69 U/L Normal 45-117 Bilirubin,Total 0.7 mg/dL Normal 0.2-1.0 Bilirubin,Direct 0.2 mg/dL Normal 0.0-0.2 Total Protein 5.5 GM/DL Low 6.4-8.2 Albumin 3.0 GM/DL Low 3.2-5.2 Albumin/Globulin Ratio 1.2 Normal 1.2-2.2 Basic Metabolic Profile 01/21/2021 [place] [address] [phone] Glucose, Fasting 98 mg/dL Normal 70-100 Blood [...] 8.8-10.2 Laboratory test finding 01/21/2021 [place] [address] [phone] C Reactive Protein Quantitativ 3.23 mg/dL High 0 .00-0.30 Blood Culture 01/21/2021 Patient Service [place] [id number] [phone] Blood Culture No growth after <SEE NOTE> 4 Ua W/ Reflex To Culture 01/21/2021 [place] [address] [phone] Appearance, Urine RFX CLEAR Normal Clear Color, Urine RFX YELLOW Normal Yellow PH,Urine RFX 6.0 units Normal 5.0-9.0 Specific [place] Auto RFX 1.006 Normal 1.002-1.035 Protein, [...] Normal 0-1 Blood Culture 10/18/2020 [place] [address] [phone] Blood Culture No growth after <SEE NOTE> 5 Laboratory test finding 10/18/2020 [place] [address] [phone] NT-Pro BNP 427 pg/mL Normal <450 C Reactive Protein Quantitativ 1.22 mg/dL High 0.00-0.30 Erythrocyte Sedimentation Rate 27 mm/hr Normal 0-30 Basic Metabolic Profile 10/18/2020 [place] [address] [phone] Glucose, Fasting 169 mg/dL High 70-100 Blood [...] Marker Panel 10/18/[address] [place] [address] [phone] CPK Creatine Phosphokinase 15 U/L Low 26-19 2 CK-MB Value Mass < 1.0 NG/ML Normal <3.6 MB/CK Relative Index 6.67 High < Or =4 7 Troponin I < 0.02 NG/ML Normal < 0.10 8 CBC With Differential 10/18/2020 [place] [address] [phone] White Blood Count 5.3 10 Normal 4.0-10.0 [...] 36.0-66.0 Lymph % 12.6 % Low 24.0-44.0 Mccormick % 7.5 % Normal 2.0-8.0 Eos % 3.8 % High 0.0-3.0 Baso % 0.4 % Normal 0.0-1.0 Immature Granulocyte % 0.8 % Normal 0-3.0 Nucleated Red Blood Cell % 0.0 % Normal 0-0 Neutrophils # 4.0 10 Normal 1.5-8.5 Lymph # 0.7 10 Low 1.5-5.0 Mccormick # 0.4 10 Normal 0.0-0.8 Eos # 0.2 10 Normal 0.0-0.5 Baso # 0.0 10 Normal 0.0-0.2 Influenza A/B RSV Covid Amp 10/18/2020 Patient Serv [facility] [place] [address] [phone] Influenza A Amplification NEGATIVE Normal Negati ve 9 Influenza B Amplification NEGATIVE Normal Negative 10 RSV Amplification NEGATIVE Normal Negative 11 Sars Covid-19 Amplification NEGATIVE Normal Negative 12 Blood Culture 10/18/2020 Patient Service [facility] [place] [address] [phone] Blood Culture No growth after <SEE NOTE> 13 Comprehensive Metabolic Profil 10/11/2020 [facility] [phone] Glucose, Fasting 90 mg/dL Normal 70-100 Blood [...] Ratio 1.2 Normal 1.2-2.2 Hemoglobin A1c 10/11/2020 [facility] [phone] Hemoglobin A1c 5.9 % Normal 15 Estimated Average Glucose 123 mg/dL High 60-110 Lipid Panel 10/11/2020 [facility] [phone] Triglycerides Level 75 mg/dL Normal <150 Cholesterol Level 98 mg/dL Normal <200 HDL Cholesterol 46 mg/dL Normal >40 LDL Cholesterol 37 mg/dL Normal <100 Non-HDL-C 52 mg/dL Normal Cholesterol Risk Ratio 2.130 Normal <5 Microalbumin Random 10/11/2020 [facility] [phone] Creatinine, Urine 52.4 mg/dL Normal Malb Urine Siemens 9.0 mg/L Normal Moose/Creat Ratio 17.1 MCG/MG Normal 0.0-30.0 16 Basic Metabolic Profile 08/03/2020 [facility] [phone] Glucose, Fasting 121 mg/dL High 70-100 Blood [...] mg/dL Normal 8.8-10.2 Basic Metabolic Profile 07/31/2020 [facility] [phone] Glucose, Fasting 173 mg/dL High 70-100 Blood [...] Laboratory test finding 07/26/2020 [facility] [place], [place] [id number] [phone] iSTAT Troponin 0.00 NG/ML Normal 0.00-0.08 1 [...] Little GFR Left ESRD GFR <15 on DANCE CRITIC 4 No growth after 48 hours . [...] Little GFR Left ESRD GFR <15 on DANCE CRITIC 7 DIAGNOSIS CRITERIA MMB ng/ml Relative Index (RI) NON-AMI < or = 5 N/A GOYAL ZONE > 5 < or = 4 AMI > 5 > 4 8 Troponin I Reference Interva l for [email or web address] LOCI: 99th Percentile= 0.00-0.045 ng/ml Risk Stratification: [...] pathogens. DISCLAIMER: Testing was performed using the [employer] SARS-CoV-2 test. This test was developed and its performance characteristics determined by [employer]. This test has not been FDA cleared [...] Little GFR Left ESRD GFR <15 on DANCE CRITIC 15 REFERENCE RANGES: <=5.6% NORMAL 5.7-6.4% SUGGESTS IMPAIRED GLUCOSE META BOLISM/PREDIABETIC >= 6.5% ABNORMAL 16 THE [employer] ATION STATES THAT MICROALBUMINURIA IS [...] Little GFR Left ESRD GFR <15 on DANCE CRITIC 18 Units are mL/min/1.73 m2 Chronic Kidney Disease Staging per NKF: Stage I & II GFR >=60 Normal to Mildly Decreased Stage III GFR 30-59 Moderately Decreased Stage IV GFR 15-29 Severely Decreased Stage V GFR <15 Very Little GFR Left ESRD GFR <15 on DANCE CRITIC Procedures Date Code Description Status 01/10/2021 11744 Chronic Care MGMT 20 Mins Clinical Staff Time Per Calendar Month Completed 01/10/2021 19693 Chronic Care Management Services Ea Addl 20 Min Completed 11/29/2020 61939 Chronic Care MGMT 20 Mins Clinical Staff Time Per Calendar Month Completed 11/29/2020 81553 Chronic Care Management Services Ea Addl 20 Min Completed 10/30/2020 88413 Chronic Care MGMT 20 Mins Clinical Staff Time Per Calendar Month Completed 10/11/2020 00271 Office/Outpatient Established Mo d MDM 30-39 Min Completed 10/03/2020 29922 Chronic Care MGMT 20 Mins Clinical Staff Time Per Calendar Month Completed 08/30/2020 31230 Chronic Care MGMT 20 Mins Clinical Staff Time Per Calendar Month Completed 07/31/2020 38542 Office/Outpatient Established Mo d MDM 30-39 Min Completed 07/27/2020 47794 Chronic Care MGMT 20 Mins Clinical Staff Time Per Calendar Month Completed 07/12/2020 314342370 Diabetic Foot Exam Completed 01/26/2020 [id number] Mammogram Completed 05/09/2014 99818642 Mammogram Completed 04/27/2014 10886634 Mammogram Completed 12/10/2010 10330684 Mammogram Completed Medical Devices Description No Information Available Encounters Type Date Location Provider Dx Diagnosis Office Visit 10/11/2020 2:00p Main Office Criselda Herrera, INFORMATION CONSULTANT 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 I70.212 [place] trm w intrmt damaris, left leg N18.9 Chronic kidney disease, unsp ecified E11.69 Type 2 diabetes mellitus wit h other specified complication J44.9 Chronic obstructive pulmonar y disease, unspecified R91.1 Solitary pulmonary nodule Office Visit 07/31/2020 11:00a Main Office Pleskach, Criselda, INFORMATION CONSULTANT 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 I70.212 [place] trm w intrmt damaris, left leg N18.9 Chronic kidney disease, unsp ecified Assessments Date Code Description Provider 01/10/2021 I50.42 Chronic combined sys tolic (congestive) and diastolic (congestive) heart failure Pleskach, Criselda, INFORMATION CONSULTANT 01/10/2021 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, left leg Pleskach, Criselda, INFORMATION CONSULTANT 01/10/2021 N18.9 Chronic kidney disease, unspecif ied Pleskach, Criselda, INFORMATION CONSULTANT 01/10/2021 E11.69 Type 2 diabetes mellitus with ot her specified complication Pleskach, Criselda, INFORMATION CONSULTANT 01/10/2021 J44.9 Chronic obstructive pulmonary di sease, unspecified Pleskach, Criselda, INFORMATION CONSULTANT 01/10/2021 R91.1 Solitary pulmonary nodule Pleska ch, Criselda, INFORMATION CONSULTANT 11/29/2020 I50.42 Chronic combined sys tolic (congestive) and diastolic (congestive) heart failure Pleskach, Criselda, INFORMATION CONSULTANT 11/29/2020 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, left leg Pleskach, Criselda, INFORMATION CONSULTANT 11/29/2020 N18.9 Chronic kidney disease, unspecif ied Pleskach, Criselda, INFORMATION CONSULTANT 11/29/2020 E11.69 Type 2 diabetes mellitus with ot her specified complication Pleskach, Criselda, INFORMATION CONSULTANT 11/29/2020 J44.9 Chronic obstructive pulmonary di sease, unspecified Pleskach, Criselda, INFORMATION CONSULTANT 11/29/2020 R91.1 Solitary pulmonary nodule Pleska ch, Criselda, INFORMATION CONSULTANT 10/30/2020 I50.42 Chronic combined sys tolic (congestive) and diastolic (congestive) heart failure Pleskach, Criselda, INFORMATION CONSULTANT 10/30/2020 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, left leg Pleskach, Criselda, INFORMATION CONSULTANT 10/30/2020 N18.9 Chronic kidney disease, unspecif ied Pleskach, Criselda, INFORMATION CONSULTANT 10/30/2020 E11.69 Type 2 diabetes mellitus with ot her specified complication Pleskach, Criselda, INFORMATION CONSULTANT 10/30/2020 J44.9 Chronic obstructive pulmonary di sease, unspecified Pleskach, Criselda, INFORMATION CONSULTANT 10/30/2020 R91.1 Solitary pulmonary nodule Pleska ch, Criselda, INFORMATION CONSULTANT 10/11/2020 I50.42 Chronic combined sys tolic (congestive) and diastolic (congestive) heart failure Pleskach, Criselda, INFORMATION CONSULTANT 10/11/2020 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, left leg Pleskach, Criselda, INFORMATION CONSULTANT 10/11/2020 N18.9 Chronic kidney disease, unspecif ied Pleskach, Criselda, INFORMATION CONSULTANT 10/11/2020 E11.69 Type 2 diabetes mellitus with ot her specified complication Pleskach, Criselda, INFORMATION CONSULTANT 10/11/2020 J44.9 Chronic obstructive pulmonary di sease, unspecified Pleskach, Criselda, INFORMATION CONSULTANT 10/11/2020 R91.1 Solitary pulmonary nodule Pleska ch, Criselda, INFORMATION CONSULTANT 10/03/2020 I50.42 Chronic combined sys tolic (congestive) and diastolic (congestive) heart failure Pleskach, Criselda, INFORMATION CONSULTANT 10/03/2020 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, left leg Pleskach, Criselda, INFORMATION CONSULTANT 10/03/2020 N18.9 Chronic kidney disease, unspecif ied Pleskach, Criselda, INFORMATION CONSULTANT 10/03/2020 E11.69 Type 2 diabetes mellitus with ot her specified complication Pleskach, Criselda, INFORMATION CONSULTANT 10/03/2020 J44.9 Chronic obstructive pulmonary di sease, unspecified Pleskach, Criselda, INFORMATION CONSULTANT 10/03/2020 R91.1 Solitary pulmonary nodule Pleska ch, Criselda, INFORMATION CONSULTANT 08/30/2020 I50.42 Chronic combined sys tolic (congestive) and diastolic (congestive) heart failure Pleskach, Criselda, INFORMATION CONSULTANT 08/30/2020 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, left leg Pleskach, Criselda, INFORMATION CONSULTANT 08/30/2020 N18.9 Chronic kidney disease, unspecif ied Pleskach, Criselda, INFORMATION CONSULTANT 08/30/2020 E11.69 Type 2 diabetes mellitus with ot her specified complication Pleskach, Criselda, INFORMATION CONSULTANT 08/30/2020 J44.9 Chronic obstructive pulmonary di sease, unspecified Pleskach, Criselda, INFORMATION CONSULTANT 08/30/2020 R91.1 Solitary pulmonary nodule Pleska Criselda santo, INFORMATION CONSULTANT 07/31/2020 I50.42 Chronic combined sys tolic (congestive) and diastolic (congestive) heart failure Pleskach, Criselda, INFORMATION CONSULTANT 07/31/2020 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, left leg Pleskach, Criselda, INFORMATION CONSULTANT 07/31/2020 N18.9 Chronic kidney disease, unspecif ied Pleskach, Criselda, INFORMATION CONSULTANT 07/27/2020 I50.42 Chronic combined sys tolic (congestive) and diastolic (congestive) heart failure Pleskach, Criselda, INFORMATION CONSULTANT 07/27/2020 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, left leg Pleskach, Criselda, INFORMATION CONSULTANT 07/27/2020 N18.9 Chronic kidney disease, unspecif ied Pleskach, Criselda, INFORMATION CONSULTANT 07/27/2020 E11.69 Type 2 diabetes mellitus with ot her specified complication Pleskach, Criselda, INFORMATION CONSULTANT 07/27/2020 J44.9 Chronic obstructive pulmonary di sease, unspecified Pleskach, Criselda, INFORMATION CONSULTANT 07/27/2020 R91.1 Solitary pulmonary nodule Merlinska Criselda santo FNP Plan of Treatment Future Appointment(s):* 01/25/2021 11:45 am - Criselda Herrera FNP at Main Office 10/11/2020 - Criselda Herrera FNP* I50.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* Comments:* stable, continue medication as prescribed * Follow up:* January for annual * I70.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 of [place] arteries of extremities with intermittent claudication, left [...] Refer to Reason for Referral Status Appt [facility] Please evaluate patient for iron defiency anema, for iron infusion. Thank you. Scheduled 01/18/2021 [address] [facility] [address] [phone] [facility] for [facility]/Relief referring jermaine genao for chronic disease care. thank you. Closed 09/20/2020 [address] [facility] [address] [phone]
--- OUTSIDE RECORDS SUMMARY | 2021-01-26 19:51 | CCD | Continuity of Care Document ---
Author Author Sana HERRERA [facility] AUTHOR Organization Unknown Address [address] [place] [address] Phone [phone] Care Team Providers Care Infection Preventionist Name Role Phone Dhaval Manuel MD AUTM [phone] Nuzhat Langley MD AUTM [phone] Roberto Wallace MD AUTM [phone] [facility] General Surgery Practice - Surgery AUTM [phone] Freddy Gallegos MD AUTM [phone] [facility] - Medical Oncology AUTM [phone] [facility] Orthopedics - Sports Medicine AUTM [phone] [facility] AUTM [phone] Problems Active Problems Provider Date Solitary nodule of lung PleMoe gomezy, [facility] AUTHOR Onset: 04/10/19 21 Chronic combined systolic and diastolic heart failure Plemarioa hansa Criselda, [facility] AUTHOR Onset: 04/10/2020 Hypokalemia Plepatricia Criselda, [facility] AUTHOR Onset: 04/10/2020 Atrial fibrillation Plepatricia Criselda, [facility] AUTHOR Onset: 04/10/2020 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 Pleskgian Criselda, [facility] AUTHOR Onset: 04/10/2020 Chronic obstructive lung disease Pleskgian Criselda, [facility] AUTHOR Onset: 04/10/2020 Chronic kidney disease Plepatricia Criselda, [facility] AUTHOR Onset: Type 2 diabetes mellitus in obese PleMoe gomezy, [facility] AUTHOR Onset : 04/10/2020 Social History Type Date Description Comments Sex Unknown Tobacco Use Start: Unknown End: Unknown Current Cigarette Sm oker Packs Daily 1 Tobacco Use Start: Unknown Never Used Smokeless Tobacco ETOH Use Occasionally consumes alcohol Tobacco Use Start: 02/17/61 End: 08/15/13 Patient is a forme r smoker 1 ppd Recreational Drug Use Denies Drug Use Smoking Status Reviewed: 01/25/21 Patient is a former smoker 1 ppd [...] Qnty Indications Ordering Provide r Date Nystatin 702090Svmx/GM Cream apply to affected area in groin twice daily 30gm Vivian Herrera FNP 01/24/2021 Walker with seat and hand brakes, for mobility. I50.42 Nuzhat Langley M.D. 08/25/2020 I70.212 N18.9 Fluticasone Propionate 50mcg/Act [...] 1-2 tablet twice a day 120tabs Nuzhat Langley M.D. 020 Tylenol PM Extra Strength 500-25mg Tablets take 1 tablets before bed as scheduled 180tabs Pl Criselda connor FNP 11/27/2019 Medical Compression Socks/20-30MMHG/Extr a Large/Long Misc please measure and dispense for lower extremity edema 2units R60.0 Criselda Herrera FNP 10/20/2019 Acetaminophen 325mg Tablets 2 by mouth every 6 hours as needed for leg pain. Unknown 08/07/2019 Potassium Chloride Keren ER 20Meq Tablets ER 1 by mouth twice a day 180tabs Criselda Herrera F NP 08/07/2019 Bupropion Hydrochloride ER (XL) 150mg Tablets ER 24HR take one tablet by mouth once a day 90tabs F32.9 Criselda Herrera FNP 07/06/2019 Alcohol Prep 70% Pads use twice daily as directed before testing bs 1Box Criselda Herrera FNP 12/03/2018 Ipratropium [place]/Albuterol Sulfate 0.5-2.5(3)mg/3ML Solution use 1 vial via [...] Vivian Herrera FNP 04/07/2017 Freestyle Lite Lancets [facility] use to check fasting blood glusose twice daily, dx: e11.9 200units Criselda Ruelas [facility] 04/07/2017 Citalopram Hydrobromide 40mg Table ts 1 tab by mouth every day 90tabs F32.9 Criselda Herrera [facility] AUTHOR 03/13/19 18 Proair HFA 108(90Base) mcg/Act Aer osol 2 puffs every 4 hours as needed for wheezing and coughing 25.5gm Criselda Herrera [facility] 04/12/2014 Diltiazem HCL 60mg Tablets 1 tab by mouth once a at bedtime 90tabs Criselda Herrera [facility] 0 Advair Diskus 500-50mcg/Dose Aeros ol inhale one puff by mouth every day 3units Vivian Herrera [facility] Spironolactone 25mg Tablets take one tablet by mouth every afternoon * Diuretics to be staggered per Dr. Gallegos Unknown Tramadol HCL 50mg Tablets take 1 tablet by mouth every 6 hours as needed for pain 120tabs Criselda Herrera [facility] History Medications Nystatin 475940Yeup/GM Powder apply to affected area in groin twice daily 60gm Vivian Herrera [facility] 01/22/2021 - 01/24/2021 Levofloxacin 500mg Tablets one tab daily for seven days 7tabs J44.9 Criselda Herrera [facility] 10/11/2020 - 12/27/2020 Immunizations CPT Code Status Date Vaccine Lot # [id number] Given 05/24/2020 Moderna Sars-(Co vid-19) vaccine, mRNA, LNP-S, PF, 100 mcg/ 0.5 mL 44602 Given 04/19/2020 Moderna Sars-(Co vid-19) vaccine, mRNA, LNP-S, PF, 100 mcg/ 0.5 mL 43001 Given 03/25/2018 Pneumococcal Vaccine [id number] 73405 Given 12/09/2017 Influenza Virus Vaccine, Jeremiah drivalent,multidose vial [id number] 94681 Given 03/23/2017 Pneumococcal Vaccine [id number] Given 12/04/2016 Influenza Vaccine (Fluzone)( medicare) [id number] Q2038 Given 11/14/2015 Influenza Vaccine (Fluzone)( medicare) [id number] 82951 Given 10/12/2015 Prevnar 13 For Adults 43595 Given 11/17/2013 Influenza Vaccination 10409 Given 11/18/2007 Influenza Vaccination [id number] 04115 Given 12/12/2006 Influenza Vaccination [id number] Vital Signs Date Vital Result Comment 01/25/2021 11:55am BP Systolic 123 mmHg BP Diastolic 72 mmHg Heart Rate 87 /min Body Temperature 96.5 F Respiratory Rate 28 /min Height 61.5 inches 5'1.50" Weight 210.00 lb O2 % BldC Oximetry 98 % Peak Expiratory Flow Rate 290 Estimated Peak Flow Rate Ceres Body Weight 105 lb BMI (Body Mass Index) 39.0 kg/m2 10/11/2020 2:11pm BP Systolic 87 mmHg BP Diastolic 42 mmHg Heart Rate 75 /min Body Temperature 95.7 F Respiratory Rate 25 /min Height 61.5 inches 5'1.50" O2 % BldC Oximetry 95 % Peak Expiratory Flow Rate 292 Estimated Peak Flow Rate [place]res Body Weight 105 lb Results Test Acquired Date Facility Test Result H/L Range Note Reflex Urine Culture 01/21/2021 [place] [address] [phone] Reflex Urine Culture FULL REPORT IN L <SEE NOTE> Norm al 1 Laboratory test finding 01/21/2021 [place] [address] [phone] Lactic Acid Sepsis Protocol 1.5 mmol/L Normal 0.4- 2.0 2 CBC With Differential 01/21/2021 [place] [address] [phone] White Blood Count 6.7 10 Normal 4.0-10.0 [...] 36.0-66.0 Lymph % 16.1 % Low 24.0-44.0 [place] % 9.5 % High 2.0-8.0 Eos % 4.5 % High 0.0-3.0 Baso % 0.5 % Normal 0.0-1.0 Immature Granulocyte % 0.3 % Normal 0-3.0 Nucleated Red Blood Cell % 0.0 % Normal 0-0 Neutrophils # 4.6 10 Normal 1.5-8.5 Lymph # 1.1 10 Low 1.5-5.0 [place] # 0.6 10 Normal 0.0-0.8 Eos # 0.3 10 Normal 0.0-0.5 Baso # 0.0 10 Normal 0.0-0.2 Laboratory test finding 01/21/2021 [place] [address] [phone] Erythrocyte Sedimentation Rate 28 mm/hr Normal 0 -30 Liver Profile 01/21/2021 [place] [address] [phone] Ast/Sgot 7 U/L Normal 7-37 Alt/SGPT 8 U/L Low 12-78 Alkaline Phosphatase 69 U/L Normal 45-117 Bilirubin,Total 0.7 mg/dL Normal 0.2-1.0 Bilirubin,Direct 0.2 mg/dL Normal 0.0-0.2 Total Protein 5.5 GM/DL Low 6.4-8.2 Albumin 3.0 GM/DL Low 3.2-5.2 Albumin/Globulin Ratio 1.2 Normal 1.2-2.2 Basic Metabolic Profile 01/21/2021 [place] [address] [phone] Glucose, Fasting 98 mg/dL Normal 70-100 Blood [...] 8.8-10.2 Laboratory test finding 01/21/2021 [place] [address] [phone] C Reactive Protein Quantitativ 3.23 mg/dL High 0 .00-0.30 Blood Culture 01/21/2021 [place] [address] [phone] Blood Culture No growth after <SEE NOTE> 4 Ua W/ Reflex To Culture 01/21/2021 [place] [address] [phone] Appearance, Urine RFX CLEAR Normal Clear Color, Urine RFX YELLOW Normal Yellow PH,Urine RFX 6.0 units Normal 5.0-9.0 Specific [place] Ur Auto RFX 1.006 Normal 1.002-1.035 Protein, [...] Normal 0-1 Blood Culture 10/18/2020 [place] [address] [phone] Blood Culture No growth after <SEE NOTE> 5 Laboratory test finding 10/18/2020 [place] [address] [phone] NT-Pro BNP 427 pg/mL Normal <450 C Reactive Protein Quantitativ 1.22 mg/dL High 0.00-0.30 Erythrocyte Sedimentation Rate 27 mm/hr Normal 0-30 Basic Metabolic Profile 10/18/2020 [place] [address] [phone] Glucose, Fasting 169 mg/dL High 70-100 Blood [...] Marker Panel 10/18/[address] [place] [address] [phone] CPK Creatine Phosphokinase 15 U/L Low 26-19 2 CK-MB Value Mass < 1.0 NG/ML Normal <3.6 MB/CK Relative Index 6.67 High < Or =4 7 Troponin I < 0.02 NG/ML Normal < 0.10 8 CBC With Differential 10/18/2020 [place] [address] [phone] White Blood Count 5.3 10 Normal 4.0-10.0 [...] 36.0-66.0 Lymph % 12.6 % Low 24.0-44.0 [place] % 7.5 % Normal 2.0-8.0 Eos % 3.8 % High 0.0-3.0 Baso % 0.4 % Normal 0.0-1.0 Immature Granulocyte % 0.8 % Normal 0-3.0 Nucleated Red Blood Cell % 0.0 % Normal 0-0 Neutrophils # 4.0 10 Normal 1.5-8.5 Lymph # 0.7 10 Low 1.5-5.0 [place] # 0.4 10 Normal 0.0-0.8 Eos # 0.2 10 Normal 0.0-0.5 Baso # 0.0 10 Normal 0.0-0.2 Influenza A/B RSV Covid Amp 10/18/2020 Patient Serv [facility] RADIOLOGY [place] [id number] [phone] Influenza A Amplification NEGATIVE Normal Negati ve 9 Influenza B Amplification NEGATIVE Normal Negative 10 RSV Amplification NEGATIVE Normal Negative 11 Sars Covid-19 Amplification NEGATIVE Normal Negative 12 Blood Culture 10/18/2020 [place] [address] [phone] Blood Culture No growth after <SEE NOTE> 13 Comprehensive Metabolic Profil 10/11/2020 [facility] [phone] Glucose, Fasting 90 mg/dL Normal 70-100 Blood [...] Ratio 1.2 Normal 1.2-2.2 Hemoglobin A1c 10/11/2020 [facility] nter [phone] Hemoglobin A1c 5.9 % Normal 15 Estimated Average Glucose 123 mg/dL High 60-110 Lipid Panel 10/[facility] [phone] Triglycerides Level 75 mg/dL Normal <150 Cholesterol Level 98 mg/dL Normal <200 HDL Cholesterol 46 mg/dL Normal >40 LDL Cholesterol 37 mg/dL Normal <100 Non-HDL-C 52 mg/dL Normal Cholesterol Risk Ratio 2.130 Normal <5 Microalbumin Random 10/11/2020 [facility] [phone] Creatinine, Urine 52.4 mg/dL Normal Malb Urine Siemens 9.0 mg/L Normal [place]ose/Creat Ratio 17.1 MCG/MG Normal 0.0-30.0 16 Basic Metabolic Profile 08/03/2020 [facility] [phone] Glucose, Fasting 121 mg/dL High 70-100 Blood [...] Normal 8.8-10.2 Basic Metabolic Profile 07/31/2020 [facility] [phone] Glucose, Fasting 173 mg/dL High 70-100 Blood [...] Little GFR Left ESRD GFR <15 on GASTROENTEROLOGY TECHNICIAN 4 No growth after 48 hours . [...] Little GFR Left ESRD GFR <15 on GASTROENTEROLOGY TECHNICIAN 7 DIAGNOSIS CRITERIA MMB ng/ml Relative Index (RI) NON-AMI < or = 5 N/A GOYAL ZONE > 5 < or = 4 AMI > 5 > 4 8 Troponin I Reference Interva l for Stigni.bg LOCI: 99th Percentile= 0.00-0.045 ng/ml Risk Stratification: [...] pathogens. DISCLAIMER: Testing was performed using the [employer] SARS-CoV-2 test. This test was developed and its performance characteristics determined by [employer] This test has not been FDA cleared [...] Little GFR Left ESRD GFR <15 on GASTROENTEROLOGY TECHNICIAN 15 REFERENCE RANGES: <=5.6% NORMAL 5.7-6.4% SUGGESTS IMPAIRED GLUCOSE META BOLISM/PREDIABETIC >= 6.5% ABNORMAL 16 THE [employer] ATION STATES THAT MICROALBUMINURIA IS [...] Little GFR Left ESRD GFR <15 on GASTROENTEROLOGY TECHNICIAN 18 Units are mL/min/1.73 m2 Chronic Kidney Disease Staging per NKF: Stage I & II GFR >=60 Normal to Mildly Decreased Stage III GFR 30-59 Moderately Decreased Stage IV GFR 15-29 Severely Decreased Stage V GFR <15 Very Little GFR Left ESRD GFR <15 on GASTROENTEROLOGY TECHNICIAN Procedures Date Code Description Status 01/10/2021 04917 Chronic Care MGMT 20 Mins Clinical Staff Time Per Calendar Month Completed 01/10/2021 34972 Chronic Care Management Services Ea Addl 20 Min Completed 11/29/2020 51414 Chronic Care MGMT 20 Mins Clinical Staff Time Per Calendar Month Completed 11/29/2020 31150 Chronic Care Management Services Ea Addl 20 Min Completed 10/30/2020 07427 Chronic Care MGMT 20 Mins Clinical Staff Time Per Calendar Month Completed 10/11/2020 24907 Office/Outpatient Established Mo d MDM 30-39 Min Completed 10/03/2020 59150 Chronic Care MGMT 20 Mins Clinical Staff Time Per Calendar Month Completed 08/30/2020 49066 Chronic Care MGMT 20 Mins Clinical Staff Time Per Calendar Month Completed 07/31/2020 37002 Office/Outpatient Established Mo d MDM 30-39 Min Completed 07/27/2020 58010 Chronic Care MGMT 20 Mins Clinical Staff Time Per Calendar Month Completed 07/12/2020 748356547 Diabetic Foot Exam Completed 01/26/2020 93186694 Mammogram Completed 05/09/2014 94694066 Mammogram Completed 04/27/2014 68843421 Mammogram Completed 12/10/2010 11939610 Mammogram Completed Medical Devices Description No Information Available Encounters Type Date Location Provider Dx Diagnosis Office Visit 10/11/2020 2:00p Main Office Criselda Herrera FNP 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 I70.212 [facility] [place] arteries of ex trm w intrmt damaris, left leg N18.9 Chronic kidney disease, unsp ecified E11.69 Type 2 diabetes mellitus wit h other specified complication J44.9 Chronic obstructive pulmonar y disease, unspecified R91.1 Solitary pulmonary nodule Office Visit 07/31/2020 11:00a Main Office Criselda Herrera FNP 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 I70.212 [facility] [place] arteries of ex trm w intrmt damaris, left leg N18.9 Chronic kidney disease, unsp ecified Assessments Date Code Description Provider 01/10/2021 I50.42 Chronic combined sys tolic (congestive) and diastolic (congestive) heart failure Pleskach, Criselda, [facility] AUTHOR 01/10/2021 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, left leg Pleskach, Criselda, [facility] [facility] AUTHOR 01/10/2021 N18.9 Chronic kidney disease, unspecif ied Pleskach, Criselda, [facility] AUTHOR 01/10/2021 E11.69 Type 2 diabetes mellitus with ot her specified complication Pleskach, Criselda, [facility] AUTHOR 01/10/2021 J44.9 Chronic obstructive pulmonary di sease, unspecified Pleskach, Criselda, [facility] AUTHOR 01/10/2021 R91.1 Solitary pulmonary nodule Pleska ch, Criselda, [facility] AUTHOR 11/29/2020 I50.42 Chronic combined sys tolic (congestive) and diastolic (congestive) heart failure Pleskach, Criselda, [facility] AUTHOR 11/29/2020 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, left leg Pleskach, Criselda, [facility] AUTHOR 11/29/2020 N18.9 Chronic kidney disease, unspecif ied Pleskach, Criselda, [facility] AUTHOR 11/29/2020 E11.69 Type 2 diabetes mellitus with ot her specified complication Pleskach, Criselda, [facility] AUTHOR 11/29/2020 J44.9 Chronic obstructive pulmonary di sease, unspecified Pleskach, Criselda, [facility] AUTHOR 11/29/2020 R91.1 Solitary pulmonary nodule Pleska ch, Criselda, [facility] AUTHOR 10/30/2020 I50.42 Chronic combined sys tolic (congestive) and diastolic (congestive) heart failure Pleskach, Criselda, [facility] AUTHOR 10/30/2020 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, left leg Pleskach, Criselda, [facility] AUTHOR 10/30/2020 N18.9 Chronic kidney disease, unspecif ied Pleskach, Criselda, [facility] AUTHOR 10/30/2020 E11.69 Type 2 diabetes mellitus with ot her specified complication Pleskach, Criselda, [facility] AUTHOR 10/30/2020 J44.9 Chronic obstructive pulmonary di sease, unspecified Pleskach, Criselda, [facility] AUTHOR 10/30/2020 R91.1 Solitary pulmonary nodule Pleska ch, Criselda, [facility] AUTHOR 10/11/2020 I50.42 Chronic combined sys tolic (congestive) and diastolic (congestive) heart failure Pleskach, Criselda, [facility] AUTHOR 10/11/2020 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, left leg Pleskach, Criselda, [facility] AUTHOR 10/11/2020 N18.9 Chronic kidney disease, unspecif ied Pleskach, Criselda, [facility] AUTHOR 10/11/2020 E11.69 Type 2 diabetes mellitus with ot her specified complication Pleskach, Criselda, [facility] AUTHOR 10/11/2020 J44.9 Chronic obstructive pulmonary di sease, unspecified Pleskach, Criselda, [facility] AUTHOR 10/11/2020 R91.1 Solitary pulmonary nodule Pleska ch, Criselda, [facility] AUTHOR 10/03/2020 I50.42 Chronic combined sys tolic (congestive) and diastolic (congestive) heart failure Pleskach, Criselda, [facility] AUTHOR 10/03/2020 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, left leg Pleskach, Criselda, [facility] AUTHOR 10/03/2020 N18.9 Chronic kidney disease, unspecif ied Pleskach, Criselda, [facility] AUTHOR 10/03/2020 E11.69 Type 2 diabetes mellitus with ot her specified complication Pleskach, Criselda, [facility] AUTHOR 10/03/2020 J44.9 Chronic obstructive pulmonary di sease, unspecified Pleskach, Criselda, [facility] AUTHOR 10/03/2020 R91.1 Solitary pulmonary nodule Pleska ch, Criselda, [facility] AUTHOR 08/30/2020 I50.42 Chronic combined sys tolic (congestive) and diastolic (congestive) heart failure Pleskach, Criselda, [facility] AUTHOR 08/30/2020 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, left leg Pleskach, Criselda, [facility] AUTHOR 08/30/2020 N18.9 Chronic kidney disease, unspecif ied Pleskach, Criselda, [facility] AUTHOR 08/30/2020 E11.69 Type 2 diabetes mellitus with ot her specified complication Pleskach, Criselda, [facility] AUTHOR 08/30/2020 J44.9 Chronic obstructive pulmonary di sease, unspecified Pleskach, Criselda, [facility] AUTHOR 08/30/2020 R91.1 Solitary pulmonary nodule Plemarioa Criselda santo, [facility] AUTHOR 07/31/2020 I50.42 Chronic combined sys tolic (congestive) and diastolic (congestive) heart failure Pleskach Criselda, [facility] AUTHOR 07/31/2020 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, left leg Pleskach, Criselda, [facility] AUTHOR 07/31/2020 N18.9 Chronic kidney disease, unspecif ied Pleskach, Criselda, [facility] AUTHOR 07/27/2020 I50.42 Chronic combined sys tolic (congestive) and diastolic (congestive) heart failure Pleskach, Criselda, [facility] AUTHOR 07/27/2020 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, left leg Pleskach, Criselda, [facility] AUTHOR 07/27/2020 N18.9 Chronic kidney disease, unspecif ied Pleskach, Criselda, [facility] AUTHOR 07/27/2020 E11.69 Type 2 diabetes mellitus with ot her specified complication Pleskach Criselda, [facility] AUTHOR 07/27/2020 J44.9 Chronic obstructive pulmonary di sease, unspecified Pleskach, Criselda, [facility] AUTHOR 07/27/2020 R91.1 Solitary pulmonary nodule Carmelaa Moe santoy, [facility] AUTHOR Plan of Treatment No Information Available Functional Status Functional Condition Comment Date Status Bifocal glasses Active Independent with all ADL's Activ e Complete lower and upper and lower dentures Active Independent with all IADL's Acti ve Mental Status Mental Condition Comment Date Status None Active Referrals Refer to Reason for Referral Status Appt Date [facility] Please evaluate patient for iron defiency anema, for iron infusion. Thank you. Scheduled 01/18/2021 [address] [facility] [address] [address] [phone] [facility] referring jermaine genao for chronic disease care. thank you. Closed 09/20/2020 [address] [facility] [address] [address] [phone]
--- OUTSIDE RECORDS SUMMARY | 2021-01-26 19:51 | CCD | Continuity of Care Document ---
Author Author Sana HERRERA PIECE WORKER Organization Unknown Address [address] [place] [address] Phone [phone] Care Team Providers Care Orthopedic Shoe Maker Name Role Phone Dhaval Manuel MD AUTM [phone] Nuzhat Langley MD AUTM [phone] Roberto Wallace MD AUTM [phone] [facility] General Surgery Practice - Surgery AUTM [phone] Freddy Gallegos MD AUTM [phone] [facility] - Medical Oncology AUTM [phone] [facility] Orthopedics - Sports Medicine AUTM [phone] [facility] for Symptom Treatment/Relief AUTM [phone] Problems Active Problems Provider Date Solitary nodule of lung PleMoe gomezy, PIECE WORKER Onset: 04/10/19 21 Chronic combined systolic and diastolic heart failure Plemarioa hansa Criselda, PIECE WORKER Onset: 04/10/2020 Hypokalemia Plepatricia Criselda, PIECE WORKER Onset: 04/10/2020 Atrial fibrillation Plepatricia Criselda, PIECE WORKER Onset: 04/10/2020 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 Pleskgian Criselda, PIECE WORKER Onset: 04/10/2020 Chronic obstructive lung disease Pleskgian Criselda, PIECE WORKER Onset: 04/10/2020 Chronic kidney disease Plepatricia Criselda, PIECE WORKER Onset: Type 2 diabetes mellitus in obese PleMoe gomezy, PIECE WORKER Onset : 04/10/2020 Social History Type Date [...] SIG Qnty Indications Ordering Provide r Date Nebulizer Kit/Tubing/Mouthpiece K it use as directed 1units Crieslda Hrerera FNP 01/25/2021 Nebulizer Device use as d irected 1units I50.42 Criselda Herrera FNP 01/25/2021 J44.9 Nystatin 370367Lozi/GM Cream apply to affected area in groin twice daily 30gm Vivian Herrera FNP 01/24/2021 Walker with seat and hand brakes, for mobility. I50.42 Nuzhat Langley M.D. 08/25/2020 I70.212 N18.9 Fluticasone Propionate 50mcg/Act Suspension one spray each side of nose daily 48gm J30.9 Carmelaac Criselda kaminski FNP 07/31/2020 Lumigan 0.01% Solution one gtt. [...] edema 2units R60.0 Criselda Herrera FNP 10/20/2019 Potassium Chloride Keren ER 20Meq Tablets ER [...] bs 1Box Criselda Herrera FNP 12/03/2018 Ipratropium Irwin/Albuterol Sulfate 0.5-2.5(3)mg/3ML Solution use 1 vial via nebulizer 4 times daily a s needed for coughing and wheezing 90ml Criselda Herrera FNP 10/14 Neosporin Original 3.5-400-5000 Oi ntment apply to rash twice a day as needed 28.300gm R21 Emerson Herrera FNP 12/09/2017 FestEvoe Blood Glucose Monitoring System Device use for monitoring blood glucose twice a day, dx e11.9, prognosis good, duration 99 months 1units Criselda Herrera, [facility] Freestyle Lite Test Strips use to check blood glucose 2 times a day, e11.9 200units Vivian Herrera, [facility] 04/07/2017 Freestyle Lite Lancets Misc use to check fasting blood glusose twice daily, dx: e11.9 200units Criselda Ruelas, [facility] 04/07/2017 Citalopram Hydrobromide 40mg Table ts 1 tab by mouth every day 90tabs F32.9 Criselda Herrera, [facility] 03/13/19 18 Proair HFA 108(90Base) mcg/Act Aer osol 2 puffs every 4 hours as needed for wheezing and coughing 25.5gm Merlinpatricia Criselda, [facility] 04/12/2014 Diltiazem HCL 60mg Tablets 1 tab by mouth once a at bedtime 90tabs Criselda Herrera, [facility] 0 Advair Diskus 500-50mcg/Dose Aeros ol inhale one puff by mouth every day 3units Vivian Herrera jelani, [facility] Spironolactone 25mg Tablets take one tablet by mouth every afternoon * Diuretics to be staggered per Dr. Gallegos Unknown Tramadol HCL 50mg Tablets take 1 tablet by mouth every 6 hours as needed for pain 120tabs CarmelaCriselda springer [facility] History Medications Nystatin 968676Slvz/GM Powder apply to affected area in groin twice daily 60gm CarmelaVivian springer jelani [facility] 01/22/2021 - 01/24/2021 Levofloxacin 500mg Tablets one tab daily for seven days 7tabs J44.[address] [facility] 10/11/2020 - 12/27/2020 Immunizations CPT Code Status Date Vaccine Lot # [id number] Given 01/25/2021 Influenza Virus Vaccine, Jeremiah drivalent,multidose vial [id number] 56434 Given 05/24/2020 Moderna Sars-(Co vid-19) vaccine, mRNA, LNP-S, PF, 100 mcg/ 0.5 mL 00479 Given 04/19/2020 Moderna Sars-(Co vid-19) vaccine, mRNA, LNP-S, PF, 100 mcg/ 0.5 mL 85696 Given 03/25/2018 Pneumococcal Vaccine [id number] 80325 Given 12/09/2017 Influenza Virus Vaccine, Jeremiah drivalent,multidose vial [id number] 63423 Given 03/23/2017 Pneumococcal Vaccine [id number] Given 12/04/2016 Influenza Vaccine (Fluzone)( medicare) [id number] Q2038 Given 11/14/2015 Influenza Vaccine (Fluzone)( medicare) [id number] 49069 Given 10/12/2015 Prevnar 13 For Adults 78784 Given 11/17/2013 Influenza Vaccination 64870 Given 11/18/2007 Influenza Vaccination [id number] 83886 Given 12/12/2006 Influenza Vaccination [id number] Vital Signs Date Vital Result Comment 01/25/2021 11:55am BP Systolic 123 mmHg BP Diastolic 72 mmHg Heart Rate 87 /min Body Temperature 96.5 F Respiratory Rate 28 /min Height 61.5 inches 5'1.50" Weight 210.00 lb O2 % BldC Oximetry 98 % Peak Expiratory Flow Rate 290 Estimated Peak Flow Rate [place] Body Weight 105 lb BMI (Body Mass Index) 39.0 kg/m2 10/11/2020 2:11pm BP Systolic 87 mmHg BP Diastolic 42 mmHg Heart Rate 75 /min Body Temperature 95.7 F Respiratory Rate 25 /min Height 61.5 inches 5'1.50" O2 % BldC Oximetry 95 % Peak Expiratory Flow Rate 292 Estimated Peak Flow Rate [place] Body Weight 105 lb Results Test Acquired Date Facility Test Result H/L Range Note Reflex Urine Culture 01/21/2021 [place] [address] [phone] Reflex Urine Culture FULL REPORT IN L <SEE NOTE> Norm al 1 Laboratory test finding 01/21/2021 [place] [address] [phone] Lactic Acid Sepsis Protocol 1.5 mmol/L Normal 0.4- 2.0 2 CBC With Differential 01/21/2021 [place] [address] [phone] White Blood Count 6.7 10 Normal 4.0-10.0 [...] 36.0-66.0 Lymph % 16.1 % Low 24.0-44.0 Gage % 9.5 % High 2.0-8.0 Eos % 4.5 % High 0.0-3.0 Baso % 0.5 % Normal 0.0-1.0 Immature Granulocyte % 0.3 % Normal 0-3.0 Nucleated Red Blood Cell % 0.0 % Normal 0-0 Neutrophils # 4.6 10 Normal 1.5-8.5 Lymph # 1.1 10 Low 1.5-5.0 Gage # 0.6 10 Normal 0.0-0.8 Eos # 0.3 10 Normal 0.0-0.5 Baso # 0.0 10 Normal 0.0-0.2 Laboratory test finding 01/21/2021 Patient Service [place], [place] [id number] [phone] Erythrocyte Sedimentation Rate 28 mm/hr Normal 0 -30 Liver Profile 01/21/2021 Patient Service [place], [place] [id number] [phone] Ast/Sgot 7 U/L Normal 7-37 Alt/SGPT 8 U/L Low 12-78 Alkaline Phosphatase 69 U/L Normal 45-117 Bilirubin,Total 0.7 mg/dL Normal 0.2-1.0 Bilirubin,Direct 0.2 mg/dL Normal 0.0-0.2 Total Protein 5.5 GM/DL Low 6.4-8.2 Albumin 3.0 GM/DL Low 3.2-5.2 Albumin/Globulin Ratio 1.2 Normal 1.2-2.2 Basic Metabolic Profile 01/21/2021 Patient [facility] [place] [id number] [phone] Glucose, Fasting 98 mg/dL Normal 70-100 Blood [...] 8.8-10.2 Laboratory test finding 01/21/2021 [place] [address] [phone] C Reactive Protein Quantitativ 3.23 mg/dL High 0 .00-0.30 Blood Culture 01/21/2021 Patient Service [place] [id number] [phone] Blood Culture No growth after <SEE NOTE> 4 Ua W/ Reflex To Culture 01/21/2021 [place] [address] [phone] Appearance, Urine RFX CLEAR Normal Clear Color, Urine RFX YELLOW Normal Yellow PH,Urine RFX 6.0 units Normal 5.0-9.0 Specific [place] Ur Auto RFX 1.006 Normal 1.002-1.035 Protein, [...] Normal 0-1 Blood Culture 10/18/2020 [place] [address] [phone] Blood Culture No growth after <SEE NOTE> 5 Laboratory test finding 10/18/2020 [place] [address] [phone] NT-Pro BNP 427 pg/mL Normal <450 C Reactive Protein Quantitativ 1.22 mg/dL High 0.00-0.30 Erythrocyte Sedimentation Rate 27 mm/hr Normal 0-30 Basic Metabolic Profile 10/18/2020 [place] [address] [phone] Glucose, Fasting 169 mg/dL High 70-100 Blood [...] Marker Panel 10/18/[address] [place] [address] [phone] CPK Creatine Phosphokinase 15 U/L Low 26-19 2 CK-MB Value Mass < 1.0 NG/ML Normal <3.6 MB/CK Relative Index 6.67 High < Or =4 7 Troponin I < 0.02 NG/ML Normal < 0.10 8 CBC With Differential 10/18/2020 [place] [address] [phone] White Blood Count 5.3 10 Normal 4.0-10.0 [...] 36.0-66.0 Lymph % 12.6 % Low 24.0-44.0 Gage % 7.5 % Normal 2.0-8.0 Eos % 3.8 % High 0.0-3.0 Baso % 0.4 % Normal 0.0-1.0 Immature Granulocyte % 0.8 % Normal 0-3.0 Nucleated Red Blood Cell % 0.0 % Normal 0-0 Neutrophils # 4.0 10 Normal 1.5-8.5 Lymph # 0.7 10 Low 1.5-5.0 Gage # 0.4 10 Normal 0.0-0.8 Eos # 0.2 10 Normal 0.0-0.5 Baso # 0.0 10 Normal 0.0-0.2 Influenza A/B RSV Covid Amp 10/18/2020 [place] [address] [phone] Influenza A Amplification NEGATIVE Normal Negati ve 9 Influenza B Amplification NEGATIVE Normal Negative 10 RSV Amplification NEGATIVE Normal Negative 11 Sars Covid-19 Amplification NEGATIVE Normal Negative 12 Blood Culture 10/18/2020 [place] [address] [phone] Blood Culture No growth after <SEE NOTE> 13 Comprehensive Metabolic Profil 10/11/2020 [facility] [phone] Glucose, Fasting 90 mg/dL Normal 70-100 Blood [...] Ratio 1.2 Normal 1.2-2.2 Hemoglobin A1c 10/11/2020 [facility] [phone] Hemoglobin A1c 5.9 % Normal 15 Estimated Average Glucose 123 mg/dL High 60-110 Lipid Panel 10/11/2020 [facility] [phone] Triglycerides Level 75 mg/dL Normal <150 Cholesterol Level 98 mg/dL Normal <200 HDL Cholesterol 46 mg/dL Normal >40 LDL Cholesterol 37 mg/dL Normal <100 Non-HDL-C 52 mg/dL Normal Cholesterol Risk Ratio 2.130 Normal <5 Microalbumin Random 10/11/2020 [facility] [phone] Creatinine, Urine 52.4 mg/dL Normal Malb Urine Siemens 9.0 mg/L Normal Moose/Creat Ratio 17.1 MCG/MG Normal 0.0-30.0 16 Basic Metabolic Profile 08/03/2020 [facility] [phone] Glucose, Fasting 121 mg/dL High 70-100 Blood [...] mg/dL Normal 8.8-10.2 Basic Metabolic Profile 07/31/2020 [facility] [phone] Glucose, Fasting 173 mg/dL High 70-100 Blood [...] Little GFR Left ESRD GFR <15 on CRA OFFICER 4 No growth after 48 hours . [...] Little GFR Left ESRD GFR <15 on CRA OFFICER 7 DIAGNOSIS CRITERIA MMB ng/ml Relative Index (RI) NON-AMI < or = 5 N/A GOYAL ZONE > 5 < or = 4 AMI > 5 > 4 8 Troponin I Reference Interva l for [employer] LOCI: 99th Percentile= 0.00-0.045 ng/ml Risk Stratification: [...] pathogens. DISCLAIMER: Testing was performed using the [employer] SARS-CoV-2 test. This test was developed and its performance characteristics determined by [employer]. This test has not been FDA cleared [...] Little GFR Left ESRD GFR <15 on CRA OFFICER 15 REFERENCE RANGES: <=5.6% NORMAL 5.7-6.4% SUGGESTS IMPAIRED GLUCOSE META BOLISM/PREDIABETIC >= 6.5% ABNORMAL 16 THE [employer] DIABET[employer] ATION STATES THAT MICROALBUMINURIA IS [...] Little GFR Left ESRD GFR <15 on CRA OFFICER 18 Units are mL/min/1.73 m2 Chronic Kidney Disease Staging per NKF: Stage I & II GFR >=60 Normal to Mildly Decreased Stage III GFR 30-59 Moderately Decreased Stage IV GFR 15-29 Severely Decreased Stage V GFR <15 Very Little GFR Left ESRD GFR <15 on CRA OFFICER Procedures Date Code Description Status 01/25/2021 45789 Office/Outpatient Established Lo w MDM 20-29 Min Completed 01/10/2021 65593 Chronic Care MGMT 20 Mins Clinical Staff Time Per Calendar Month Completed 01/10/2021 34564 Chronic Care Management Services Ea Addl 20 Min Completed 11/29/2020 95044 Chronic Care MGMT 20 Mins Clinical Staff Time Per Calendar Month Completed 11/29/2020 08787 Chronic Care Management Services Ea Addl 20 Min Completed 10/30/2020 95898 Chronic Care MGMT 20 Mins Clinical Staff Time Per Calendar Month Completed 10/11/2020 61064 Office/Outpatient Established Mo d MDM 30-39 Min Completed 10/03/2020 20380 Chronic Care MGMT 20 Mins Clinical Staff Time Per Calendar Month Completed 08/30/2020 02225 Chronic Care MGMT 20 Mins Clinical Staff Time Per Calendar Month Completed 07/31/2020 14964 Office/Outpatient Established Mo d MDM 30-39 Min Completed 07/27/2020 26072 Chronic Care MGMT 20 Mins Clinical Staff Time Per Calendar Month Completed 07/12/2020 805581068 Diabetic Foot Exam Completed 01/26/2020 [id number] Mammogram Completed 05/09/2014 79098426 Mammogram Completed 04/27/2014 88176473 Mammogram Completed 12/10/2010 63765919 Mammogram Completed Medical Devices Description No Information Available Encounters Type Date Location Provider Dx Diagnosis Office Visit 01/25/2021 11:45a Main Office Criselda Herrera FNP B37.2 Candidiasis of skin and nail Z60.2 Problems related to living a lone Z23 Encounter for immunization Office Visit 10/11/2020 2:00p Main Office Pleskach, Criselda, PIECE WORKER 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 I70.212 [place] of ex trm w intrmt damaris, left leg N18.9 Chronic kidney disease, unsp ecified E11.69 Type 2 diabetes mellitus wit h other specified complication J44.9 Chronic obstructive pulmonar y disease, unspecified R91.1 Solitary pulmonary nodule Office Visit 07/31/2020 11:00a Main Office Criselda Herrera, PIECE WORKER 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 I70.212 [place] of ex trm w intrmt damaris, left leg N18.9 Chronic kidney disease, unsp ecified Assessments Date Code Description Provider 01/25/2021 B37.2 Candidiasis of skin and nail Criselda Ruelas, [facility] 01/25/2021 Z60.2 Problems related to living alone Criselda Herrera, [facility] 01/25/2021 Z23 Encounter for immunization Criselda Moreno, 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 01/10/2021 E11.69 Type 2 diabetes mellitus with ot her specified complication PleCriselda gomez, PIECE WORKER 01/10/2021 J44.9 Chronic obstructive pulmonary di sease, unspecified PleCriselda gomez, PIECE WORKER 01/10/2021 R91.1 Solitary pulmonary nodule Criselda Jean ch, PIECE WORKER 11/29/2020 I50.42 Chronic combined sys tolic (congestive) and diastolic (congestive) heart failure Criselda Herrera, 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, left leg Criselda Herrera, PIECE WORKER 11/29/2020 N18.9 Chronic kidney disease, unspecif ied PleMoe gomezy, PIECE WORKER 11/29/2020 E11.69 Type 2 diabetes mellitus with ot her specified complication Sharon Criselda, PIECE WORKER 11/29/2020 J44.9 Chronic obstructive pulmonary di sease, unspecified Pleskach, Criselda, PIECE WORKER 11/29/2020 R91.1 Solitary pulmonary nodule Pleska ch, Criselda, PIECE WORKER 10/30/2020 I50.42 Chronic combined sys tolic (congestive) and diastolic (congestive) heart failure Pleskach, Criselda, PIECE WORKER 10/30/2020 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, left leg Pleskach, Criselda, PIECE WORKER 10/30/2020 N18.9 Chronic kidney disease, unspecif ied Pleskach, Criselda, PIECE WORKER 10/30/2020 E11.69 Type 2 diabetes mellitus with ot her specified complication Pleskach, Criselda, PIECE WORKER 10/30/2020 J44.9 Chronic obstructive pulmonary di sease, unspecified Pleskach, Criselda, PIECE WORKER 10/30/2020 R91.1 Solitary pulmonary nodule Pleska ch, Criselda, PIECE WORKER 10/11/2020 I50.42 Chronic combined sys tolic (congestive) and diastolic (congestive) heart failure Pleskach, Criselda, PIECE WORKER 10/11/2020 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, left leg Pleskach, Criselda, PIECE WORKER 10/11/2020 N18.9 Chronic kidney disease, unspecif ied Pleskach, Criselda, PIECE WORKER 10/11/2020 E11.69 Type 2 diabetes mellitus with ot her specified complication Pleskach, Criselda, PIECE WORKER 10/11/2020 J44.9 Chronic obstructive pulmonary di sease, unspecified Pleskach, Criselda, PIECE WORKER 10/11/2020 R91.1 Solitary pulmonary nodule Pleska ch, Criselda, PIECE WORKER 10/03/2020 I50.42 Chronic combined sys tolic (congestive) and diastolic (congestive) heart failure Pleskach, Criselda, PIECE WORKER 10/03/2020 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, left leg Pleskach, Criselda, PIECE WORKER 10/03/2020 N18.9 Chronic kidney disease, unspecif ied Pleskach, Criselda, PIECE WORKER 10/03/2020 E11.69 Type 2 diabetes mellitus with ot her specified complication Pleskach, Criselda, PIECE WORKER 10/03/2020 J44.9 Chronic obstructive pulmonary di sease, unspecified Pleskach, Criselda, PIECE WORKER 10/03/2020 R91.1 Solitary pulmonary nodule Pleska ch, Criselda, PIECE WORKER 08/30/2020 I50.42 Chronic combined sys tolic (congestive) and diastolic (congestive) heart failure Pleskach, Criselda, PIECE WORKER 08/30/2020 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, left leg Pleskach, Criselda, PIECE WORKER 08/30/2020 N18.9 Chronic kidney disease, unspecif ied Pleskach, Criselda, PIECE WORKER 08/30/2020 E11.69 Type 2 diabetes mellitus with ot her specified complication Pleskach, Criselda, PIECE WORKER 08/30/2020 J44.9 Chronic obstructive pulmonary di sease, unspecified Pleskach, Criselda, PIECE WORKER 08/30/2020 R91.1 Solitary pulmonary nodule Pleska ch, Criselda, PIECE WORKER 07/31/2020 I50.42 Chronic combined sys tolic (congestive) and diastolic (congestive) heart failure Pleskach, Criselda, PIECE WORKER 07/31/2020 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, left leg Pleskach, Criselda, PIECE WORKER 07/31/2020 N18.9 Chronic kidney disease, unspecif ied Pleskach, Criselda, PIECE WORKER 07/27/2020 I50.42 Chronic combined sys tolic (congestive) and diastolic (congestive) heart failure Pleskach, Criselda, PIECE WORKER 07/27/2020 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, left leg Pleskach, Criselda, PIECE WORKER 07/27/2020 N18.9 Chronic kidney disease, unspecif ied Pleskach, Criselda, PIECE WORKER 07/27/2020 E11.69 Type 2 diabetes mellitus with ot her specified complication Pleskach, Criselda, PIECE WORKER 07/27/2020 J44.9 Chronic obstructive pulmonary di sease, unspecified Pleskach, Criselda, PIECE WORKER 07/27/2020 R91.1 Solitary pulmonary nodule Carmelaa Criselda santo FNP Plan of Treatment 01/25/2021 - Criselda Herrera FNP* B37.2 Candidiasis of skin and nail* Comments: * nystatin cream BID * Follow up:* prn * Z60.2 Problems related to living alone* Comments:* I've asked our [facility] coordinators to assist patient in safer options * Z23 Encounter for immunization * All * New Medication:* Nebulizer - use as directed * Nebulizer Kit/Tubing/Mouthpiece - use as directed Functional Status Functional Condition Comment Date Status Bifocal glasses Active Independent with all ADL's Activ e Complete lower and upper and lower dentures Active Independent with all IADL's Acti ve Mental Status Mental Condition Comment Date Status None Active Referrals Refer to Reason for Referral Status Appt [facility] Please evaluate patient for iron defiency anema, for iron infusion. Thank you. Scheduled 01/18/2021 [address] [facility] [address] [phone] [facility] for Symptom Treatment/Relief referring jermaine genao for chronic disease care. thank you. Closed 09/20/2020 [address] [facility] [address] [phone]
--- OUTSIDE RECORDS SUMMARY | 2021-01-26 19:51 | CCD | Continuity of Care Document ---
Author Author Sana VEGA M.D. Organization Unknown Address [address] [place] [address] Phone [phone] Care Team Providers Care Doctor Naturopathic Name Role Phone Dhaval Manuel MD AUTM [phone] Nuzhat Vega MD AUTM [phone] Roberto Wallace MD AUTM [phone] [facility] General Surgery Practice - Surgery AUTM [phone] Freddy Gallegos MD AUTM [phone] [facility] - Medical Oncology AUTM [phone] [facility] Orthopedics - Sports Medicine AUTM [phone] [facility] for Sympt[facility]/Relief AUTM [phone] Problems Active Problems Provider Date Solitary nodule of lung Plepatricia Criselda, WILDLIFE REMOVAL SPECIALIST Onset: 04/10/19 21 Chronic combined systolic and diastolic heart failure Pleska hansa Criselda, WILDLIFE REMOVAL SPECIALIST Onset: 04/10/2020 Hypokalemia Plepatricia, Criselda, WILDLIFE REMOVAL SPECIALIST Onset: 04/10/2020 Atrial fibrillation Pleskgian, Criselda, WILDLIFE REMOVAL SPECIALIST Onset: 04/10/2020 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 Pleskach, Criselda, WILDLIFE REMOVAL SPECIALIST Onset: 04/10/2020 Chronic obstructive lung disease Pleskach, Criselda, WILDLIFE REMOVAL SPECIALIST Onset: 04/10/2020 Chronic kidney disease Pleskach, Criselda, WILDLIFE REMOVAL SPECIALIST Onset: Type 2 diabetes mellitus in obese Pleskgian, Criselda, WILDLIFE REMOVAL SPECIALIST Onset : 04/10/2020 Social History Type Date [...] Qnty Indications Ordering Provide r Date Nystatin [id number]/GM Powder apply to affected area in groin twice daily 60gm Vivian Herrera FNP 01/22/2021 Walker with seat and hand brakes, for [...] twice a day 180tabs Criselda Herrera F ORANGE PEEL OPERATOR 08/07/2019 Bupropion Hydrochloride ER (XL) 150mg Tablets ER 24HR take one tablet by mouth once a day 90tabs F32.9 Criselda Herrera FNP 07/06/2019 Alcohol Prep 70% Pads use twice daily as directed before testing bs 1Box Criselda Herrera FNP 12/03/2018 Ipratropium [place]/Albuterol Sulfate 0.5-2.5(3)mg/3ML Solution use 1 vial via nebulizer 4 times daily a s needed for coughing and wheezing 90ml Criselda Herrera FNP 10/14 Neosporin Original 3.5-400-5000 Oi ntment apply to rash twice a day as needed 28.300gm R21 Emerson Herrera FNP 12/09/2017 ProbitystInnaVirVaxe Blood Glucose Monitoring System Device use for monitoring blood glucose twice a day, dx e11.9, prognosis good, duration 99 months 1units Sharon Criselda, [facility] Freestyle Lite Test Strips use to check blood glucose 2 times a day, e11.9 200units Vivian Herrera, [facility] 04/07/2017 Freestyle Lite Lancets Misc use to check fasting blood glusose twice daily, dx: e11.9 200units Merlin gomez Criselda, [facility] 04/07/2017 Citalopram Hydrobromide 40mg Table ts 1 tab by mouth every day 90tabs F32.9 Sharon Criselda, [facility] 03/13/19 18 Proair HFA 108(90Base) mcg/Act Aer osol 2 puffs every 4 hours as needed for wheezing and coughing 25.5gm Criselda Herrera, [facility] 04/12/2014 Diltiazem HCL 60mg Tablets 1 tab by mouth once a at bedtime 90tabs Criselda Herrera, [facility] 0 Advair Diskus 500-50mcg/Dose Aeros ol inhale one puff by mouth every day 3units Vivian Herrera, [facility] Spironolactone 25mg Tablets take one tablet by mouth every afternoon * Diuretics to be staggered per Dr. Gallegos Unknown Tramadol HCL 50mg Tablets take 1 tablet by mouth every 6 hours as needed for pain 120tabs Nuzhat Vega M.D. History Medications Levofloxacin 500mg Tablets one tab daily for seven days 7tabs J44.9 Carmelagian Criselda, [facility] 10/11/2020 - 12/27/2020 Immunizations CPT Code Status Date Vaccine Lot # [id number] Given 05/24/2020 Moderna Sars-(Co vid-19) vaccine, mRNA, LNP-S, PF, 100 mcg/ 0.5 mL [id number] Given 04/19/2020 Moderna Sars-(Co vid-19) vaccine, mRNA, LNP-S, PF, 100 mcg/ 0.5 mL 66218 Given 03/25/2018 Pneumococcal Vaccine [id number] 27831 Given 12/09/2017 Influenza Virus Vaccine, Jeremiah drivalent,multidose vial [id number] 80849 Given 03/23/2017 Pneumococcal Vaccine [id number] Given 12/04/2016 Influenza Vaccine (Fluzone)( medicare) [id number] Given 11/14/2015 Influenza Vaccine (Fluzone)( medicare) [id number] [address]14 Given 10/12/2015 Prevnar 13 For Adults 06278 Given 11/17/2013 Influenza Vaccination 59700 Given 11/18/2007 Influenza Vaccination [id number] 47362 Given 12/12/2006 Influenza Vaccination [id number] Vital Signs Date Vital Result Comment 10/11/2020 2:11pm BP Systolic 87 mmHg BP Diastolic 42 mmHg Heart Rate 75 /min Body Temperature 95.7 F Respiratory Rate 25 /min Height 61.5 inches 5'1.50" O2 % BldC Oximetry 95 % Peak Expiratory Flow Rate 292 Estimated Peak Flow Rate [place] Body Weight 105 lb 07/31/2020 11:15am BP Systolic 107 mmHg BP Diastolic 57 mmHg Heart Rate 73 /min Body Temperature 97.3 F Respiratory Rate 20 /min Height 61.5 inches 5'1.50" Weight 235.12 lb O2 % BldC Oximetry 96 % Peak Expiratory Flow Rate 292 Estimated Peak Flow Rate [place] Body Weight 105 lb BMI (Body Mass Index) 43.7 kg/m2 Results Test Acquired Date Facility Test Result H/L Range Note Reflex Urine Culture 01/21/2021 [place] [address] [phone] Reflex Urine Culture FULL REPORT IN L <SEE NOTE> Norm al 1 Laboratory test finding 01/21/2021 [place] [address] [phone] Lactic Acid Sepsis Protocol 1.5 mmol/L Normal 0.4- 2.0 2 CBC With Differential 01/21/2021 [place] [address] [phone] White Blood Count 6.7 10 Normal 4.0-10.0 [...] 36.0-66.0 Lymph % 16.1 % Low 24.0-44.0 Knott % 9.5 % High 2.0-8.0 Eos % 4.5 % High 0.0-3.0 Baso % 0.5 % Normal 0.0-1.0 Immature Granulocyte % 0.3 % Normal 0-3.0 Nucleated Red Blood Cell % 0.0 % Normal 0-0 Neutrophils # 4.6 10 Normal 1.5-8.5 Lymph # 1.1 10 Low 1.5-5.0 Knott # 0.6 10 Normal 0.0-0.8 Eos # 0.3 10 Normal 0.0-0.5 Baso # 0.0 10 Normal 0.0-0.2 Laboratory test finding 01/21/2021 [place] [address] [phone] Erythrocyte Sedimentation Rate 28 mm/hr Normal 0 -30 Liver Profile 01/21/2021 [place] [address] [phone] Ast/Sgot 7 U/L Normal 7-37 Alt/SGPT 8 U/L Low 12-78 Alkaline Phosphatase 69 U/L Normal 45-117 Bilirubin,Total 0.7 mg/dL Normal 0.2-1.0 Bilirubin,Direct 0.2 mg/dL Normal 0.0-0.2 Total Protein 5.5 GM/DL Low 6.4-8.2 Albumin 3.0 GM/DL Low 3.2-5.2 Albumin/Globulin Ratio 1.2 Normal 1.2-2.2 Basic Metabolic Profile 01/21/2021 [place] [address] [phone] Glucose, Fasting 98 mg/dL Normal 70-100 Blood [...] 8.8-10.2 Laboratory test finding 01/21/2021 [place] [address] [phone] C Reactive Protein Quantitativ 3.23 mg/dL High 0 .00-0.30 Blood Culture 01/21/2021 Patient Service [place] [id number] [phone] Blood Culture No growth after <SEE NOTE> 4 Ua W/ Reflex To Culture 01/21/2021 [place] [address] [phone] Appearance, Urine RFX CLEAR Normal Clear Color, Urine RFX YELLOW Normal Yellow PH,Urine RFX 6.0 units Normal 5.0-9.0 Specific [place] Ur Auto RFX 1.006 Normal 1.002-1.035 Protein, [...] Normal 0-1 Blood Culture 10/18/2020 [place] [address] [phone] Blood Culture No growth after <SEE NOTE> 5 Laboratory test finding 10/18/2020 [place] [address] [phone] NT-Pro BNP 427 pg/mL Normal <450 C Reactive Protein Quantitativ 1.22 mg/dL High 0.00-0.30 Erythrocyte Sedimentation Rate 27 mm/hr Normal 0-30 Basic Metabolic Profile 10/18/2020 [place] [address] [phone] Glucose, Fasting 169 mg/dL High 70-100 Blood [...] Marker Panel 10/18/[address] [place] [address] [phone] CPK Creatine Phosphokinase 15 U/L Low 26-19 2 CK-MB Value Mass < 1.0 NG/ML Normal <3.6 MB/CK Relative Index 6.67 High < Or =4 7 Troponin I < 0.02 NG/ML Normal < 0.10 8 CBC With Differential 10/18/2020 [place] [address] [phone] White Blood Count 5.3 10 Normal 4.0-10.0 [...] 36.0-66.0 Lymph % 12.6 % Low 24.0-44.0 Knott % 7.5 % Normal 2.0-8.0 Eos % 3.8 % High 0.0-3.0 Baso % 0.4 % Normal 0.0-1.0 Immature Granulocyte % 0.8 % Normal 0-3.0 Nucleated Red Blood Cell % 0.0 % Normal 0-0 Neutrophils # 4.0 10 Normal 1.5-8.5 Lymph # 0.7 10 Low 1.5-5.0 Knott # 0.4 10 Normal 0.0-0.8 Eos # 0.2 10 Normal 0.0-0.5 Baso # 0.0 10 Normal 0.0-0.2 Influenza A/B RSV Covid Amp 10/18/2020 Patient Serv [facility] [place] [address] [phone] Influenza A Amplification NEGATIVE Normal Negati ve 9 Influenza B Amplification NEGATIVE Normal Negative 10 RSV Amplification NEGATIVE Normal Negative 11 Sars Covid-19 Amplification NEGATIVE Normal Negative 12 Blood Culture 10/18/2020 [place] [address] [phone] Blood Culture No growth after <SEE NOTE> 13 Comprehensive Metabolic Profil 10/11/2020 [facility] [phone] Glucose, Fasting 90 mg/dL Normal 70-100 Blood [...] Ratio 1.2 Normal 1.2-2.2 Hemoglobin A1c 10/11/2020 [facility] [phone] Hemoglobin A1c 5.9 % Normal 15 Estimated Average Glucose 123 mg/dL High 60-110 Lipid Panel 10/11/2020 [facility] [phone] Triglycerides Level 75 mg/dL Normal <150 Cholesterol Level 98 mg/dL Normal <200 HDL Cholesterol 46 mg/dL Normal >40 LDL Cholesterol 37 mg/dL Normal <100 Non-HDL-C 52 mg/dL Normal Cholesterol Risk Ratio 2.130 Normal <5 Microalbumin Random 10/11/2020 [facility] [phone] Creatinine, Urine 52.4 mg/dL Normal Malb Urine Siemens 9.0 mg/L Normal Moose/Creat Ratio 17.1 MCG/MG Normal 0.0-30.0 16 Basic Metabolic Profile 08/03/2020 [facility] [phone] Glucose, Fasting 121 mg/dL High 70-100 Blood [...] mg/dL Normal 8.8-10.2 Basic Metabolic Profile 07/31/2020 [facility] [phone] Glucose, Fasting 173 mg/dL High 70-100 Blood [...] Laboratory test finding 07/26/2020 [facility] [place], [place] [id number] [phone] iSTAT Troponin 0.00 NG/ML Normal 0.00-0.08 1 [...] Little GFR Left ESRD GFR <15 on TIGER MACHINE OPERATOR 4 No growth after 24 hours . A ll specimens observed for [...] Little GFR Left ESRD GFR <15 on TIGER MACHINE OPERATOR 7 DIAGNOSIS CRITERIA MMB ng/ml Relative Index (RI) NON-AMI < or = 5 N/A GOYAL ZONE > 5 < or = 4 AMI > 5 > 4 8 Troponin I Reference Interva l for [place] LOCI: 99th Percentile= 0.00-0.045 ng/ml Risk Stratification: [...] pathogens. DISCLAIMER: Testing was performed using the [employer] SARS-CoV-2 test. This test was developed and its performance characteristics determined by [employer]. This test has not been FDA cleared [...] Little GFR Left ESRD GFR <15 on TIGER MACHINE OPERATOR 15 REFERENCE RANGES: <=5.6% NORMAL 5.7-6.4% SUGGESTS IMPAIRED GLUCOSE META BOLISM/PREDIABETIC >= 6.5% ABNORMAL 16 THE [employer] ATION STATES THAT MICROALBUMINURIA IS [...] Little GFR Left ESRD GFR <15 on TIGER MACHINE OPERATOR 18 Units are mL/min/1.73 m2 Chronic Kidney Disease Staging per NKF: Stage I & II GFR >=60 Normal to Mildly Decreased Stage III GFR 30-59 Moderately Decreased Stage IV GFR 15-29 Severely Decreased Stage V GFR <15 Very Little GFR Left ESRD GFR <15 on TIGER MACHINE OPERATOR Procedures Date Code Description Status 01/10/2021 93983 Chronic Care MGMT 20 Mins Clinical Staff Time Per Calendar Month Completed 01/10/2021 82999 Chronic Care Management Services Ea Addl 20 Min Completed 11/29/2020 14978 Chronic Care MGMT 20 Mins Clinical Staff Time Per Calendar Month Completed 11/29/2020 85717 Chronic Care Management Services Ea Addl 20 Min Completed 10/30/2020 53057 Chronic Care MGMT 20 Mins Clinical Staff Time Per Calendar Month Completed 10/11/2020 73542 Office/Outpatient Established Mo d MDM 30-39 Min Completed 10/03/2020 81701 Chronic Care MGMT 20 Mins Clinical Staff Time Per Calendar Month Completed 08/30/2020 99478 Chronic Care MGMT 20 Mins Clinical Staff Time Per Calendar Month Completed 07/31/2020 87866 Office/Outpatient Established Mo d MDM 30-39 Min Completed 07/27/2020 56533 Chronic Care MGMT 20 Mins Clinical Staff Time Per Calendar Month Completed 07/12/2020 940177730 Diabetic Foot Exam Completed 01/26/2020 95584280 Mammogram Completed 05/09/2014 27317652 Mammogram Completed 04/27/2014 21799982 Mammogram Completed 12/10/2010 75204409 Mammogram Completed Medical Devices Description No Information Available Encounters Type Date Location Provider Dx Diagnosis Office Visit 10/11/2020 2:00p Main Office Criselda Herrera FNP 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 I70.[address] [place] arteries of ex trm w intrmt damaris, left leg N18.9 Chronic kidney disease, unsp ecified E11.69 Type 2 diabetes mellitus wit h other specified complication J44.9 Chronic obstructive pulmonar y disease, unspecified R91.1 Solitary pulmonary nodule Office Visit 07/31/2020 11:00a Main Office Criselda Herrera FNP 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 I70.[address] 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, left leg Pleskach, Criselda, WILDLIFE REMOVAL SPECIALIST 01/10/2021 N18.9 Chronic kidney disease, unspecif ied Pleskach, Criselda, WILDLIFE REMOVAL SPECIALIST 01/10/2021 E11.69 Type 2 diabetes mellitus with ot her specified complication Pleskach, Criselda, WILDLIFE REMOVAL SPECIALIST 01/10/2021 J44.9 Chronic obstructive pulmonary di sease, unspecified Pleskach, Criselda, WILDLIFE REMOVAL SPECIALIST 01/10/2021 R91.1 Solitary pulmonary nodule Pleska ch, Criselda, WILDLIFE REMOVAL SPECIALIST 11/29/2020 I50.42 Chronic combined sys tolic (congestive) and diastolic (congestive) heart failure Pleskach, Criselda, WILDLIFE REMOVAL SPECIALIST 11/29/2020 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, left leg Pleskach, Criselda, WILDLIFE REMOVAL SPECIALIST 11/29/2020 N18.9 Chronic kidney disease, unspecif ied Pleskach, Criselda, WILDLIFE REMOVAL SPECIALIST 11/29/2020 E11.69 Type 2 diabetes mellitus with ot her specified complication Pleskach, Criselda, WILDLIFE REMOVAL SPECIALIST 11/29/2020 J44.9 Chronic obstructive pulmonary di sease, unspecified Pleskach, Criselda, WILDLIFE REMOVAL SPECIALIST 11/29/2020 R91.1 Solitary pulmonary nodule Pleska ch, Criselda, WILDLIFE REMOVAL SPECIALIST 10/30/2020 I50.42 Chronic combined sys tolic (congestive) and diastolic (congestive) heart failure Pleskach, Criselda, WILDLIFE REMOVAL SPECIALIST 10/30/2020 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, left leg Pleskach, Criselda, WILDLIFE REMOVAL SPECIALIST 10/30/2020 N18.9 Chronic kidney disease, unspecif ied Pleskach, Criselda, WILDLIFE REMOVAL SPECIALIST 10/30/2020 E11.69 Type 2 diabetes mellitus with ot her specified complication Pleskach, Criselda, WILDLIFE REMOVAL SPECIALIST 10/30/2020 J44.9 Chronic obstructive pulmonary di sease, unspecified Pleskach, Criselda, WILDLIFE REMOVAL SPECIALIST 10/30/2020 R91.1 Solitary pulmonary nodule Pleska ch, Criselda, WILDLIFE REMOVAL SPECIALIST 10/11/2020 I50.42 Chronic combined sys tolic (congestive) and diastolic (congestive) heart failure Pleskach, Criselda, WILDLIFE REMOVAL SPECIALIST 10/11/2020 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, left leg Pleskach, Criselda, WILDLIFE REMOVAL SPECIALIST 10/11/2020 N18.9 Chronic kidney disease, unspecif ied Pleskach, Criselda, WILDLIFE REMOVAL SPECIALIST 10/11/2020 E11.69 Type 2 diabetes mellitus with ot her specified complication Pleskach, Criselda, WILDLIFE REMOVAL SPECIALIST 10/11/2020 J44.9 Chronic obstructive pulmonary di sease, unspecified Pleskach, Criselda, WILDLIFE REMOVAL SPECIALIST 10/11/2020 R91.1 Solitary pulmonary nodule Pleska ch, Criselda, WILDLIFE REMOVAL SPECIALIST 10/03/2020 I50.42 Chronic combined sys tolic (congestive) and diastolic (congestive) heart failure Pleskach, Criselda, WILDLIFE REMOVAL SPECIALIST 10/03/2020 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, left leg Pleskach, Criselda, WILDLIFE REMOVAL SPECIALIST 10/03/2020 N18.9 Chronic kidney disease, unspecif ied Pleskach, Criselda, WILDLIFE REMOVAL SPECIALIST 10/03/2020 E11.69 Type 2 diabetes mellitus with ot her specified complication Pleskach, Criselda, WILDLIFE REMOVAL SPECIALIST 10/03/2020 J44.9 Chronic obstructive pulmonary di sease, unspecified Pleskach, Criselda, WILDLIFE REMOVAL SPECIALIST 10/03/2020 R91.1 Solitary pulmonary nodule Pleska ch, Criselda, WILDLIFE REMOVAL SPECIALIST 08/30/2020 I50.42 Chronic combined sys tolic (congestive) and diastolic (congestive) heart failure Pleskach, Criselda, WILDLIFE REMOVAL SPECIALIST 08/30/2020 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, left leg Pleskach, Criselda, WILDLIFE REMOVAL SPECIALIST 08/30/2020 N18.9 Chronic kidney disease, unspecif ied Pleskach, Criselda, WILDLIFE REMOVAL SPECIALIST 08/30/2020 E11.69 Type 2 diabetes mellitus with ot her specified complication Pleskach, Criselda, WILDLIFE REMOVAL SPECIALIST 08/30/2020 J44.9 Chronic obstructive pulmonary di sease, unspecified Pleskach, Criselda, WILDLIFE REMOVAL SPECIALIST 08/30/2020 R91.1 Solitary pulmonary nodule Pleska chMoey, WILDLIFE REMOVAL SPECIALIST 07/31/2020 I50.42 Chronic combined sys tolic (congestive) and diastolic (congestive) heart failure Pleskach, Criselda, WILDLIFE REMOVAL SPECIALIST 07/31/2020 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, left leg Pleskach, Criselda, WILDLIFE REMOVAL SPECIALIST 07/31/2020 N18.9 Chronic kidney disease, unspecif ied Pleskach, Criselda, WILDLIFE REMOVAL SPECIALIST 07/27/2020 I50.42 Chronic combined sys tolic (congestive) and diastolic (congestive) heart failure Pleskach, Criselda, WILDLIFE REMOVAL SPECIALIST 07/27/2020 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, left leg Pleskach, Criselda, WILDLIFE REMOVAL SPECIALIST 07/27/2020 N18.9 Chronic kidney disease, unspecif ied Pleskach, Criselda, WILDLIFE REMOVAL SPECIALIST 07/27/2020 E11.69 Type 2 diabetes mellitus with ot her specified complication Pleskach, Criselda, WILDLIFE REMOVAL SPECIALIST 07/27/2020 J44.9 Chronic obstructive pulmonary di sease, unspecified Pleskach, Criselda, WILDLIFE REMOVAL SPECIALIST 07/27/2020 R91.1 Solitary pulmonary nodule Pleska chMoey, WILDLIFE REMOVAL SPECIALIST Plan of Treatment 10/11/2020 - PleskachMoey, WILDLIFE REMOVAL SPECIALIST* I50.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* Comments:* stable, continue medication as prescribed * Follow up:* January for annual * I70.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 [place] arteries of extremities with intermittent claudication, left [...] to Reason for Referral Status Appt Date [facility] Please evaluate patient for iron defiency anema, for iron infusion. Thank you. Scheduled 01/18/2021 [address] [facility] [address] [phone] [facility] referring jermaine genao for chronic disease care. thank you. Closed 09/20/2020 [address] [facility] [address] [phone]
--- OUTSIDE RECORDS SUMMARY | 2021-01-26 19:52 | CCD | Continuity of Care Document ---
Author Author Sana VEGA M.D. Organization Unknown Address [address] [place] [address] Phone [phone] Care Team Providers Care Butcher Head Name Role Phone Dhaval Manuel MD AUTM [phone] Nuzhat Vega MD AUTM [phone] Roberto Wallace MD AUTM [phone] [facility] General Surgery Practice - Surgery AUTM [phone] Freddy Gallegos MD AUTM [phone] [facility] - Medical Oncology AUTM [phone] [facility] Orthopedics - Sports Medicine AUTM [phone] [facility] for Symptom Treatment/Relief AUTM [phone] Problems Active Problems Provider Date Solitary nodule of lung Plepatricia Criselda, PAINTING TRADES WORKER Onset: 04/10/19 21 Chronic combined systolic and diastolic heart failure Pleska hansa Criselda, [employer]INTING TRADES WORKER Onset: 04/10/2020 Hypokalemia Plepatricia, Criselda, [employer]INTING TRADES WORKER Onset: 04/10/2020 Atrial fibrillation Pleskgian, Criselda, [employer]INTING TRADES WORKER Onset: 04/10/2020 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 Pleskach, Criselda, PAINTING TRADES WORKER Onset: 04/10/2020 Chronic obstructive lung disease Pleskach, Criselda, PAINTING TRADES WORKER Onset: 04/10/2020 Chronic kidney disease Pleskach, Criselda, PAINTING TRADES WORKER Onset: Type 2 diabetes mellitus in obese Pleskgian, Criselda, PAINTING TRADES WORKER Onset : 04/10/2020 Social History Type [...] Qnty Indications Ordering Provide r Date Nystatin 860128Lryk/GM Powder apply to affected area in groin [...] twice a day 180tabs Criselda Herrera F [employer]ICER 08/07/2019 Bupropion Hydrochloride ER (XL) 150mg Tablets ER 24HR take one tablet by mouth once a day 90tabs F32.9 Criselda Herrera FNP 07/06/2019 Alcohol Prep 70% Pads use twice daily as directed before testing bs 1Box Criselda Herrera FNP 12/03/2018 Ipratropium [place]/Albuterol Sulfate 0.5-2.5(3)mg/3ML Solution use 1 vial via nebulizer 4 times daily a s needed for coughing and wheezing 90ml Criselda Herrera FNP 10/14 Neosporin Original 3.5-400-5000 Oi ntment apply to rash twice a day as needed 28.300gm R21 Emerson Herrera FNP 12/09/2017 PureForgestAlmindere Blood Glucose Monitoring System Device use for monitoring blood glucose twice a day, dx e11.9, prognosis good, duration 99 months 1units Sharon Criselda, [facility] Freestyle Lite Test Strips use to check blood glucose 2 times a day, e11.9 200units Vivian Herrera, [facility] 04/07/2017 Freestyle Lite Lancets Misc use to check fasting blood glusose twice daily, dx: e11.9 200units Merlin gomez Criselda, [facility] 04/07/2017 Citalopram Hydrobromide 40mg Table ts 1 tab by mouth every day 90tabs F32.9 Sharon Criselda, [facility] 03/13/19 18 Proair HFA 108(90Base) mcg/Act Aer osol 2 puffs every 4 hours as needed for wheezing and coughing 25.5gm Criselda Herrera, [facility] 04/12/2014 Diltiazem HCL 60mg Tablets 1 tab by mouth once a at bedtime 90tabs Criselda Herrera, [facility] 0 Advair Diskus 500-50mcg/Dose Aeros ol inhale one puff by mouth every day 3units Vivian Herrera, [facility] Spironolactone 25mg Tablets take one tablet by mouth every afternoon * Diuretics to be staggered per Dr. Gallegos Unknown Tramadol HCL 50mg Tablets take 1 tablet by mouth every 6 hours as needed for pain 120tabs Nuzhat Vega M.D. History Medications Levofloxacin 500mg Tablets one tab daily for seven days 7tabs J44.9 Carmelagian Criselda, [facility] 10/11/2020 - 12/27/2020 Immunizations CPT Code Status Date Vaccine Lot # [id number] Given 05/24/2020 Moderna Sars-(Co vid-19) vaccine, mRNA, LNP-S, PF, 100 mcg/ 0.5 mL 02148 Given 04/19/2020 Moderna Sars-(Co vid-19) vaccine, mRNA, LNP-S, PF, 100 mcg/ 0.5 mL 39944 Given 03/25/2018 Pneumococcal Vaccine [id number] 62212 Given 12/09/2017 Influenza Virus Vaccine, Jeremiah drivalent,multidose vial [id number] Given 03/23/2017 Pneumococcal Vaccine [id number] Given 12/04/2016 Influenza Vaccine (Fluzone)( medicare) [id number] Q2038 Given 11/14/2015 Influenza Vaccine (Fluzone)( medicare) [id number] 70094 Given 10/12/2015 Prevnar 13 For Adults 04020 Given 11/17/2013 Influenza Vaccination 64527 Given 11/18/2007 Influenza Vaccination [id number] 95276 Given 12/12/2006 Influenza Vaccination [id number] Vital Signs Date Vital Result Comment 10/11/2020 2:11pm BP Systolic 87 mmHg BP Diastolic 42 mmHg Heart Rate 75 /min Body Temperature 95.7 F Respiratory Rate 25 /min Height 61.5 inches 5'1.50" O2 % BldC Oximetry 95 % Peak Expiratory Flow Rate 292 Estimated Peak Flow Rate [place] Body Weight 105 lb 07/31/2020 11:15am BP Systolic 107 mmHg BP Diastolic 57 mmHg Heart Rate 73 /min Body Temperature 97.3 F Respiratory Rate 20 /min Height 61.5 inches 5'1.50" Weight 235.12 lb O2 % BldC Oximetry 96 % Peak Expiratory Flow Rate 292 Estimated Peak Flow Rate [place] Body Weight 105 lb BMI (Body Mass Index) 43.7 kg/m2 Results Test Acquired Date Facility Test Result H/L Range Note Reflex Urine Culture 01/21/2021 [place] [address] [phone] Reflex Urine Culture FULL REPORT IN L <SEE NOTE> Norm al 1 Laboratory test finding 01/21/2021 [place] [address] [phone] Lactic Acid Sepsis Protocol 1.5 mmol/L Normal 0.4- 2.0 2 CBC With Differential 01/21/2021 [place] [address] [phone] White Blood Count 6.7 10 Normal 4.0-10.0 [...] 36.0-66.0 Lymph % 16.1 % Low 24.0-44.0 [place] % 9.5 % High 2.0-8.0 Eos % 4.5 % High 0.0-3.0 Baso % 0.5 % Normal 0.0-1.0 Immature Granulocyte % 0.3 % Normal 0-3.0 Nucleated Red Blood Cell % 0.0 % Normal 0-0 Neutrophils # 4.6 10 Normal 1.5-8.5 Lymph # 1.1 10 Low 1.5-5.0 [place] # 0.6 10 Normal 0.0-0.8 Eos # 0.3 10 Normal 0.0-0.5 Baso # 0.0 10 Normal 0.0-0.2 Laboratory test finding 01/21/2021 [place] [address] [phone] Erythrocyte Sedimentation Rate 28 mm/hr Normal 0 -30 Liver Profile 01/21/2021 [place] [address] [phone] Ast/Sgot 7 U/L Normal 7-37 Alt/SGPT 8 U/L Low 12-78 Alkaline Phosphatase 69 U/L Normal 45-117 Bilirubin,Total 0.7 mg/dL Normal 0.2-1.0 Bilirubin,Direct 0.2 mg/dL Normal 0.0-0.2 Total Protein 5.5 GM/DL Low 6.4-8.2 Albumin 3.0 GM/DL Low 3.2-5.2 Albumin/Globulin Ratio 1.2 Normal 1.2-2.2 Basic Metabolic Profile 01/21/2021 [place] [address] [phone] Glucose, Fasting 98 mg/dL Normal 70-100 Blood [...] 8.8-10.2 Laboratory test finding 01/21/2021 [place] [address] [phone] C Reactive Protein Quantitativ 3.23 mg/dL High 0 .00-0.30 Blood Culture 01/21/2021 Patient Service [place] [id number] [phone] Blood Culture No growth after <SEE NOTE> 4 Ua W/ Reflex To Culture 01/21/2021 [place] [address] [phone] Appearance, Urine RFX CLEAR Normal Clear Color, Urine RFX YELLOW Normal Yellow PH,Urine RFX 6.0 units Normal 5.0-9.0 Specific [place] Ur Auto RFX 1.006 Normal 1.002-1.035 Protein, [...] Normal 0-1 Blood Culture 10/18/2020 [place] [address] [phone] Blood Culture No growth after <SEE NOTE> 5 Laboratory test finding 10/18/2020 [place] [address] [phone] NT-Pro BNP 427 pg/mL Normal <450 C Reactive Protein Quantitativ 1.22 mg/dL High 0.00-0.30 Erythrocyte Sedimentation Rate 27 mm/hr Normal 0-30 Basic Metabolic Profile 10/18/2020 [place] [address] [phone] Glucose, Fasting 169 mg/dL High 70-100 Blood [...] Marker Panel 10/18/[address] [place] [address] [phone] CPK Creatine Phosphokinase 15 U/L Low 26-19 2 CK-MB Value Mass < 1.0 NG/ML Normal <3.6 MB/CK Relative Index 6.67 High < Or =4 7 Troponin I < 0.02 NG/ML Normal < 0.10 8 CBC With Differential 10/18/2020 [place] [address] [phone] White Blood Count 5.3 10 Normal 4.0-10.0 [...] 36.0-66.0 Lymph % 12.6 % Low 24.0-44.0 [place] % 7.5 % Normal 2.0-8.0 Eos % 3.8 % High 0.0-3.0 Baso % 0.4 % Normal 0.0-1.0 Immature Granulocyte % 0.8 % Normal 0-3.0 Nucleated Red Blood Cell % 0.0 % Normal 0-0 Neutrophils # 4.0 10 Normal 1.5-8.5 Lymph # 0.7 10 Low 1.5-5.0 [place] # 0.4 10 Normal 0.0-0.8 Eos # 0.2 10 Normal 0.0-0.5 Baso # 0.0 10 Normal 0.0-0.2 Influenza A/B RSV Covid Amp 10/18/2020 Patient Serv [facility] [place] [address] [phone] Influenza A Amplification NEGATIVE Normal Negati ve 9 Influenza B Amplification NEGATIVE Normal Negative 10 RSV Amplification NEGATIVE Normal Negative 11 Sars Covid-19 Amplification NEGATIVE Normal Negative 12 Blood Culture 10/18/2020 [place] [address] [phone] Blood Culture No growth after <SEE NOTE> 13 Comprehensive Metabolic Profil 10/11/2020 [facility] [phone] Glucose, Fasting 90 mg/dL Normal 70-100 Blood [...] Ratio 1.2 Normal 1.2-2.2 Hemoglobin A1c 10/11/2020 [facility] [phone] Hemoglobin A1c 5.9 % Normal 15 Estimated Average Glucose 123 mg/dL High 60-110 Lipid Panel 10/11/2020 [facility] [phone] Triglycerides Level 75 mg/dL Normal <150 Cholesterol Level 98 mg/dL Normal <200 HDL Cholesterol 46 mg/dL Normal >40 LDL Cholesterol 37 mg/dL Normal <100 Non-HDL-C 52 mg/dL Normal Cholesterol Risk Ratio 2.130 Normal <5 Microalbumin Random 10/11/2020 [facility] [phone] Creatinine, Urine 52.4 mg/dL Normal Malb Urine Siemens 9.0 mg/L Normal Moose/Creat Ratio 17.1 MCG/MG Normal 0.0-30.0 16 Basic Metabolic Profile 08/03/2020 [facility] [phone] Glucose, Fasting 121 mg/dL High 70-100 Blood [...] mg/dL Normal 8.8-10.2 Basic Metabolic Profile 07/31/2020 [facility] [phone] Glucose, Fasting 173 mg/dL High 70-100 Blood [...] Laboratory test finding 07/26/2020 Patient Service Center [place], [place] [id number] [phone] iSTAT Troponin 0.00 NG/ML Normal 0.00-0.08 1 [...] Little GFR Left ESRD GFR <15 on AIRCRAFT DESIGN ENGINEER 4 No growth after 24 hours . [...] Little GFR Left ESRD GFR <15 on AIRCRAFT DES[employer] ENGINEER 7 DIAGNOSIS CRITERIA MMB ng/ml Relative Index (RI) NON-AMI < or = 5 N/A GOYAL ZONE > 5 < or = 4 AMI > 5 > 4 8 Troponin I Reference Interva l for Siemens [place] LOCI: 99th Percentile= 0.00-0.045 ng/ml Risk Stratification: [...] pathogens. DISCLAIMER: Testing was performed using the [employer] SARS-CoV-2 test. This test was developed and its performance characteristics determined by [employer]. This test has not been FDA cleared [...] Little GFR Left ESRD GFR <15 on AIRCRAFT DESIGN ENGINEER 15 REFERENCE RANGES: <=5.6% NORMAL 5.7-6.4% SUGGESTS IMPAIRED GLUCOSE META BOLISM/PREDIABETIC >= 6.5% ABNORMAL 16 THE [employer] ATION STATES THAT MICROALBUMINURIA IS [...] Little GFR Left ESRD GFR <15 on AIRCRAFT DESIGN ENGINEER 18 Units are mL/min/1.73 m2 Chronic Kidney Disease Staging per NKF: Stage I & II GFR >=60 Normal to Mildly Decreased Stage III GFR 30-59 Moderately Decreased Stage IV GFR 15-29 Severely Decreased Stage V GFR <15 Very Little GFR Left ESRD GFR <15 on AIRCRAFT DESIGN ENGINEER Procedures Date Code Description Status 01/10/2021 60578 Chronic Care MGMT 20 Mins Clinical Staff Time Per Calendar Month Completed 01/10/2021 14632 Chronic Care Management Services Ea Addl 20 Min Completed 11/29/2020 69022 Chronic Care MGMT 20 Mins Clinical Staff Time Per Calendar Month Completed 11/29/2020 07149 Chronic Care Management Services Ea Addl 20 Min Completed 10/30/2020 12220 Chronic Care MGMT 20 Mins Clinical Staff Time Per Calendar Month Completed 10/11/2020 78810 Office/Outpatient Established Mo d MDM 30-39 Min Completed 10/03/2020 55552 Chronic Care MGMT 20 Mins Clinical Staff Time Per Calendar Month Completed 08/30/2020 59697 Chronic Care MGMT 20 Mins Clinical Staff Time Per Calendar Month Completed 07/31/2020 07531 Office/Outpatient Established Mo d MDM 30-39 Min Completed 07/27/2020 66588 Chronic Care MGMT 20 Mins Clinical Staff Time Per Calendar Month Completed 07/12/2020 772474138 Diabetic Foot Exam Completed 01/26/2020 43115426 Mammogram Completed 05/09/2014 89367668 Mammogram Completed 04/27/2014 67306960 Mammogram Completed 12/10/2010 43288155 Mammogram Completed Medical Devices Description No Information Available Encounters Type Date Location Provider Dx Diagnosis Office Visit 10/11/2020 2:00p Main Office Criselda Herrera FNP 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 I70.212 [facility] [place] [facility] of ex trm w intrmt damaris, left leg N18.9 Chronic kidney disease, unsp ecified E11.69 Type 2 diabetes mellitus wit h other specified complication J44.9 Chronic obstructive pulmonar y disease, unspecified R91.1 Solitary pulmonary nodule Office Visit 07/31/2020 11:00a Main Office Criselda Herrera FNP 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 I70.212 Athscl [place] of ex trm w intrmt damaris, left leg N18.9 Chronic kidney disease, unsp ecified Assessments Date Code Description Provider 01/10/2021 I50.42 Chronic combined sys tolic (congestive) and diastolic (congestive) heart failure Pleskach, Criselda, PAINTING TRADES WORKER 01/10/2021 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, left leg Pleskach, Criselda, PAINTING TRADES WORKER 01/10/2021 N18.9 Chronic kidney disease, unspecif ied Pleskach, Criselda, PAINTING TRADES WORKER 01/10/2021 E11.69 Type 2 diabetes mellitus with ot her specified complication Pleskach, Criselda, PAINTING TRADES WORKER 01/10/2021 J44.9 Chronic obstructive pulmonary di sease, unspecified Pleskach, Criselda, PAINTING TRADES WORKER 01/10/2021 R91.1 Solitary pulmonary nodule Pleska ch, Criselda, PAINTING TRADES WORKER 11/29/2020 I50.42 Chronic combined sys tolic (congestive) and diastolic (congestive) heart failure Pleskach, Criselda, PAINTING TRADES WORKER 11/29/2020 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, left leg Pleskach, Criselda, PAINTING TRADES WORKER 11/29/2020 N18.9 Chronic kidney disease, unspecif ied Pleskach, Criselda, PAINTING TRADES WORKER 11/29/2020 E11.69 Type 2 diabetes mellitus with ot her specified complication Pleskach, Criselda, PAINTING TRADES WORKER 11/29/2020 J44.9 Chronic obstructive pulmonary di sease, unspecified Pleskach, Criselda, PAINTING TRADES WORKER 11/29/2020 R91.1 Solitary pulmonary nodule Pleska ch, Criselda, PAINTING TRADES WORKER 10/30/2020 I50.42 Chronic combined sys tolic (congestive) and diastolic (congestive) heart failure Pleskach, Criselda, PAINTING TRADES WORKER 10/30/2020 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, left leg Pleskach, Criselda, PAINTING TRADES WORKER 10/30/2020 N18.9 Chronic kidney disease, unspecif ied Pleskach, Criselda, PAINTING TRADES WORKER 10/30/2020 E11.69 Type 2 diabetes mellitus with ot her specified complication Pleskach, Criselda, PAINTING TRADES WORKER 10/30/2020 J44.9 Chronic obstructive pulmonary di sease, unspecified Pleskach, Criselda, PAINTING TRADES WORKER 10/30/2020 R91.1 Solitary pulmonary nodule Pleska ch, Criselda, PAINTING TRADES WORKER 10/11/2020 I50.42 Chronic combined sys tolic (congestive) and diastolic (congestive) heart failure Pleskach, Criselda, PAINTING TRADES WORKER 10/11/2020 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, left leg Pleskach, Criselda, PAINTING TRADES WORKER 10/11/2020 N18.9 Chronic kidney disease, unspecif ied Pleskach, Criselda, PAINTING TRADES WORKER 10/11/2020 E11.69 Type 2 diabetes mellitus with ot her specified complication Pleskach, Criselda, PAINTING TRADES WORKER 10/11/2020 J44.9 Chronic obstructive pulmonary di sease, unspecified Pleskach, Criselda, PAINTING TRADES WORKER 10/11/2020 R91.1 Solitary pulmonary nodule Pleska ch, Criselda, PAINTING TRADES WORKER 10/03/2020 I50.42 Chronic combined sys tolic (congestive) and diastolic (congestive) heart failure Pleskach, Criselda, PAINTING TRADES WORKER 10/03/2020 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, left leg Pleskach, Criselda, PAINTING TRADES WORKER 10/03/2020 N18.9 Chronic kidney disease, unspecif ied Pleskach, Criselda, PAINTING TRADES WORKER 10/03/2020 E11.69 Type 2 diabetes mellitus with ot her specified complication Pleskach, Criselda, PAINTING TRADES WORKER 10/03/2020 J44.9 Chronic obstructive pulmonary di sease, unspecified Pleskach, Criselda, PAINTING TRADES WORKER 10/03/2020 R91.1 Solitary pulmonary nodule Pleska ch, Criselda, PAINTING TRADES WORKER 08/30/2020 I50.42 Chronic combined sys tolic (congestive) and diastolic (congestive) heart failure Pleskach, Criselda, PAINTING TRADES WORKER 08/30/2020 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, left leg Pleskach, Criselda, PAINTING TRADES WORKER 08/30/2020 N18.9 Chronic kidney disease, unspecif ied Pleskach, Criselda, PAINTING TRADES WORKER 08/30/2020 E11.69 Type 2 diabetes mellitus with ot her specified complication Pleskach, Criselda, PAINTING TRADES WORKER 08/30/2020 J44.9 Chronic obstructive pulmonary di sease, unspecified Pleskach, Criselda, PAINTING TRADES WORKER 08/30/2020 R91.1 Solitary pulmonary nodule Pleska chMoey, PAINTING TRADES WORKER 07/31/2020 I50.42 Chronic combined sys tolic (congestive) and diastolic (congestive) heart failure Pleskach, Criselda, PAINTING TRADES WORKER 07/31/2020 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, left leg Pleskach, Criselda, PAINTING TRADES WORKER 07/31/2020 N18.9 Chronic kidney disease, unspecif ied Pleskach, Criselda, PAINTING TRADES WORKER 07/27/2020 I50.42 Chronic combined sys tolic (congestive) and diastolic (congestive) heart failure Pleskach, Criselda, PAINTING TRADES WORKER 07/27/2020 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, left leg Pleskach, Criselda, PAINTING TRADES WORKER 07/27/2020 N18.9 Chronic kidney disease, unspecif ied Pleskach, Criselda, PAINTING TRADES WORKER 07/27/2020 E11.69 Type 2 diabetes mellitus with ot her specified complication Pleskach, Criselda, PAINTING TRADES WORKER 07/27/2020 J44.9 Chronic obstructive pulmonary di sease, unspecified Pleskach, Criselda, PAINTING TRADES WORKER 07/27/2020 R91.1 Solitary pulmonary nodule Pleska chMoey, PAINTING TRADES WORKER Plan of Treatment 10/11/2020 - PleskachMoey, PAINTING TRADES WORKER* I50.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* Comments:* stable, continue medication as prescribed * Follow up:* January for annual * I70.212 Atherosclerosis of [place] arteries of extremities with intermittent claudication, left [...] to Reason for Referral Status Appt Date [facility] Please evaluate patient for iron defiency anema, for iron infusion. Thank you. Scheduled 01/18/[address] [facility] [address] [phone] [facility] for Symptom Treatment/Relief referring jermaine genao for chronic disease care. thank you. Closed 09/20/[address] [facility] [address] [phone]
--- OUTSIDE RECORDS SUMMARY | 2021-01-26 19:53 | CCD ---
Author Author [facility] Organization [facility] Address Unknown Phone Unavailable Care Team Providers Care Formula Weigher Name Role Phone Dusty Monika Noland [facility], PA-C Unavailable Unavailabl e [facility] Un[facility], [facility]-C Unavailable Unavailabl e Fish Monika [facility], PA-C Unavailable Unavailabl e Fish Monika [facility], PA-C Unavailable Unavailabl e Fish Monika [facility], PA-C Unavailable Unavailabl e Fish Monika [facility], PA-C Unavailable Unavailabl e Fish, Monika [facility], PA-C Unavailable Unavailabl e Fish, Monika [facility], PA-C Unavailable Unavailabl e Fish Monika [facility], PA-C Unavailable Unavailabl e Fish Monika [facility], PA-C Unavailable Unavailabl e Fish, [facility], PA-C Unavailable Unavailabl e Fish, [facility], PA-C Unavailable Unavailabl e Fish, [facility], PA-C Unavailable Unavailabl e Fish, [facility], PA-C Unavailable Unavailabl e Fish, [facility], PA-C Unavailable Unavailabl e Fish, [facility], PA-C Unavailable Unavailabl e Fish, [facility], PA-C Unavailable Unavailabl e Fish, [facility], PA-C Unavailable Unavailabl e Fish, [facility], PA-C Unavailable Unavailabl e Fish, [facility], PA-C Unavailable Unavailabl e Fish, [facility], PA-C Unavailable Unavailabl e Fish, [facility], PA-C Unavailable Unavailabl e Fish, [facility], PA-C Unavailable Unavailabl e Fish, [facility], PA-C Unavailable Unavailabl e Fish, [facility], PA-C Unavailable Unavailabl e Fish, [facility], PA-C Unavailable Unavailabl e Fish, [facility], PA-C Unavailable Unavailabl e Fish, [facility], PA-C Unavailable Unavailabl e Fish, [facility], PA-C Unavailable Unavailabl e Fish, [facility], PA-C Unavailable Unavailabl e Fish, [facility], PA-C Unavailable Unavailabl e Fish, [facility], PA-C Unavailable Unavailabl e Fish, [facility], PA-C Unavailable Unavailabl e Fish, [facility], PA-C Unavailable Unavailabl e Fish, [facility], PA-C Unavailable Unavailabl e NAVEEN JACKSON MD [...] MD LENNY FALCON Unavailable Unavailable Pleskach, Criselda PIPE FITTER WELDING Unavailable Unavailable Pleskach, Criselda PIPE FITTER WELDING Unavailable Unavailable Pleskach, Criselda PIPE FITTER WELDING Unavailable Unavailable Pleskach, Criselda PIPE FITTER WELDING Unavailable Unavailable Pleskach, Criselda PIPE FITTER WELDING Unavailable Unavailable Pleskach, Criselda PIPE FITTER WELDING Unavailable Unavailable Pleskach, Criselda PIPE FITTER WELDING Unavailable Unavailable Pleskach, Criselda PIPE FITTER WELDING Unavailable Unavailable Pleskach, Criselda PIPE FITTER WELDING Unavailable Unavailable Pleskach, Criselda PIPE FITTER WELDING Unavailable Unavailable Pleskach, Criselda PIPE FITTER WELDING Unavailable Unavailable Pleskach, Criselda PIPE FITTER WELDING Unavailable Unavailable Pleskach, Criselda PIPE FITTER WELDING Unavailable Unavailable Pleskach, Criselda PIPE FITTER WELDING Unavailable Unavailable Pleskach, Criselda PIPE FITTER WELDING Unavailable Unavailable Pleskach, Criselda PIPE FITTER WELDING Unavailable Unavailable Pleskach, Criselda PIPE FITTER WELDING Unavailable Unavailable Pleskach, Criselda PIPE FITTER WELDING Unavailable Unavailable Pleskach, Criselda PIPE FITTER WELDING Unavailable Unavailable Pleskach, Criselda PIPE FITTER WELDING Unavailable Unavailable Pleskach, Criselda PIPE FITTER WELDING Unavailable Unavailable Pleskach, Criselda PIPE FITTER WELDING Unavailable Unavailable Pleskach, Criselda PIPE FITTER WELDING Unavailable Unavailable Pleskach, Criselda PIPE FITTER WELDING Unavailable Unavailable Pleskach, Criselda PIPE FITTER WELDING Unavailable Unavailable Pleskach, Criselda PIPE FITTER WELDING Unavailable Unavailable Pleskach, Criselda PIPE FITTER WELDING Unavailable Unavailable Pleskach, Criselda PIPE FITTER WELDING Unavailable Unavailable Pleskach, Criselda PIPE FITTER WELDING Unavailable Unavailable Pleskach, Criselda PIPE FITTER WELDING Unavailable Unavailable Pleskach, Criselda PIPE FITTER WELDING Unavailable Unavailable Pleskach, Criselda PIPE FITTER WELDING Unavailable Unavailable Pleskach, Criselda PIPE FITTER WELDING Unavailable Unavailable Pleskach, Criselda PIPE FITTER WELDING Unavailable Unavailable Pleskach, Criselda PIPE FITTER WELDING Unavailable Unavailable Pleskach, Criselda PIPE FITTER WELDING Unavailable Unavailable Pleskach, Criselda PIPE FITTER WELDING Unavailable Unavailable Pleskach, Criselda PIPE FITTER WELDING Unavailable Unavailable Pleskach, Criselda PIPE FITTER WELDING Unavailable Unavailable Pleskach, Criselda PIPE FITTER WELDING Unavailable Unavailable Pleskach, Criselda PIPE FITTER WELDING Unavailable Unavailable Pleskach, Criselda PIPE FITTER WELDING Unavailable Unavailable Pleskach, Criselda PIPE FITTER WELDING Unavailable Unavailable Pleskach, Criselda PIPE FITTER WELDING Unavailable Unavailable Km Kathleen MD Unavailable Unavailable [...] Unavailable Brantley, M Barratt PA Unavailable Unavailable Brantlye, M Barratt PA Unavailable Unavailable Brantley, M [...] Unavailable Rechlin, P Km DO Unavailable Unavailable NAILSMD DARYL Unavailable Unavailable Vaneenjamelam, Hazel Mcfarland MD Unavailable Unavailable Vaneenjamelam, Hazel Mcfarland MD Unavailable Unavailable Vaneenjamelam, Hazel Mcfarland MD Unavailable Unavailable Vaneenjamelam, Hazel Mcfarland MD Unavailable Unavailable Vaneenjamelam, Hazel Mcfarland MD Unavailable Unavailable Vaneenjamelam, Hazel Mcfarland MD Unavailable Unavailable VaneenHazel kent MD Unavailable Unavailable Vaneenyoli, Hazel Mcfarland MD Unavailable Unavailable VaneenenaamHazel MD Unavailable Unavailable Vaneenjamelam, Hazel Mcfarland MD Unavailable Unavailable Vaneenenaam, Hazel Mcfarland MD Unavailable Unavailable Vaneenenaam, Hazel Mcfarland MD Unavailable Unavailable VaneenenaamHazel MD Unavailable Unavailable VaneenHazel kent MD Unavailable Unavailable VanallamHazel MD Unavailable Unavailable VanHazel de los santos MD Unavailable Unavailable VanHazel de los santos MD Unavailable Unavailable VaneenjamelamHazel MD Unavailable Unavailable VaneenjamelamHazel MD Unavailable Unavailable VanHazel de los santos MD Unavailable Unavailable Hazel Lombardo MD Unavailable Unavailable Hazel Lombardo MD Unavailable Unavailable Hazel Lombardo MD Unavailable Unavailable Vanfiliberto, Hazel Mcfarland MD Unavailable Unavailable VanallamHazel MD Unavailable Unavailable VaneenenaamHazel MD Unavailable Unavailable [...] is protected by Article 27-F of the [facility] Public Health law. If you continue you may have access to information: Regarding HIV / AIDS; Provided by facilities licensed or operated by the [facility] Office of Mental Health; or Provided by the [facility] Office for People With Developmental Disabilities. If such information is present, then the following [facility] mandated warning applies: This information has [...] law may result in a fine or penitentiary sentence or both. A general authorization for the release of medical or other information is NOT sufficient authorization for further disc losure. Family History Family Member Name Family Member Gender Family Member Status Date o f Status Description Data Source(s) Unknown Male Problem [facility] ([facility] Unknown Male Problem [facility] ([facility]) in 1985 Unknown Unknown Problem [facility] ([facility]) Unknown Male Problem [facility] ([facility] Encounters Encounter Providers Location Date Indications Data Source(s ) Outpatient Attender: Criselda Herrera [facility] Main Office 01/25/2021 1 0:45:00 AM EST [facility] ([facility] 01/15/2021 09:26:15 AM EST [facility] Outpatient Attender: Criselda Herrera [facility] Main Office 10/11/2020 0 2:00:00 PM EDT [facility] ([facility] 10/03/2020 01:58:55 PM EDT [facility] OFFICE OUTPATIENT VISIT 15 MINUTES Attender: Hazel aguila MD Physical Therapy 08/22/2020 10:15:00 AM EDT [facility] ([facility]) Outpatient Attender: Km Bolanos/Vipul/Alex/Chuancey ndamauri 08/15/2020 11:00:00 AM EDT [facility] ([facility] Office Visit Attender: Nuzhat QUEZADA PA-C Physical Therapy 08/08/2020 03:45:00 PM EDT [facility] ([facility]) Outpatient Attender: Nuzhat QUEZADA PA-C Physical Therapy 08/07/2020 01:30:00 PM EDT [facility] ([facility]) Outpatient Attender: Criselda Herrera [facility] Main Office 07/31/2020 1 1:00:00 AM EDT [facility] ([facility] Outpatient Attender: Criselda Herrera [facility] Main Office 07/12/2020 0 2:00:00 PM EDT [facility] ([facility] 06/24/2020 04:06:08 PM EDT [facility] Outpatient [facility] 06/22/2020 01:43:06 PM EDT [facility] Outpatient Attender: Km Hyman/Vipul/Alex/Rein dl 06/21/2020 01:30:00 PM EDT [facility] ([facility] Outpatient Attender: Edgar Hyman/Vipul/Alex/Re indl 06/02/2020 01:15:00 PM EDT [facility] ([facility] Outpatient Attender: NAVEEN JACKSON MD [facility] 01:50:15 PM EDT - 05/26/2020 02:22:58 PM EDT [facility] Outpatient Attender: Jeffy DIANA Physical Therapy 01:00:00 PM EDT [facility] ([facility]) Outpatient Attender: Km Bolanos/Vipul/Alex/Chauncey ndl 05/02/2020 10:00:00 AM EDT [facility] ([facility] Outpatient Attender: Km Bolanos/Vipul/Alex/Chauncey ndl 04/12/2020 09:00:00 AM EST [facility] ([facility] Outpatient Attender: Criselda Herrera [facility] Main Office 04/10/2020 0 8:00:00 AM EST [facility] ([facility] Office Visit Attender: Jeffy DIANA Physical Therapy 12:00:00 PM EST [facility] ([facility]) Outpatient Attender: Criselda Herrera [facility] Main Office 03/22/2020 0 2:15:00 PM EST [facility] ([facility] Office Visit Attender: Jeffy DIANA Physical Therapy 12:45:00 PM EST [facility] ([facility]) Outpatient Attender: Km Bolanos/Barling/Alex/Chauncey [facility] 02/14/2020 07:30:00 AM EST [facility] ([facility] Outpatient Attender: Criselda Herrera [facility] Main Office 01/31/2020 1 0:45:00 AM EST [facility] ([facility] Outpatient Attender: Criselda Herrera [facility] Main Office 01/19/2020 0 1:00:00 PM EST [facility] ([facility] Outpatient Attender: NAVEEN JACKSON MD [facility] 0 12:00:00 AM EST - 01/19/2020 04:09:59 PM EST [facility] Outpatient Attender: Criselda Herrera [facility] Main Office 01/11/2020 0 2:45:00 PM EST [facility] ([facility] Outpatient Attender: Km Bolanos/Barling/Alex/Chauncey [facility] 12/21/2019 07:30:00 AM EST [facility] ([facility] Outpatient Attender: Criselda Herrera [facility] Main Office 12/16/2019 0 1:15:00 PM EDT [facility] ([facility] Outpatient Attender: Criselda Herrera [facility] Main Office 12/02/2019 0 4:00:00 PM EDT [facility] ([facility] Inpatient Attender: MD EILEEN Tom uri: MD HAFSA Barronender: MD LENNY Negron: RADHA BRICEÑO [facility] LENNY FALCON [id number] 07/30/2019 07:36:00 PM EDT [facility] Immunizations Vaccine Date Status Description Data Source(s) New in 2012. IIV4 01/25/2021 12:17:00 PM EST completed [facility] ([facility] Moderna Sars-(Covid-19) vaccine, mRNA, LNP-S, PF, 100 mcg/ 0.5 mL 05/24/2020 12:00:00 AM EDT completed [facility] ([facility] COVID-19 VACCINE Moderna 05/24/2020 12:00:00 AM EDT completed [facility] Vaccine Series Complete: YESThis Data wa s Submitted to [facility] Via eTobb. COVID-19 VACCINE Moderna 04/19/2020 12:00:00 AM EST completed [facility] Vaccine Series Complete: NOThis Data was Submitted to [facility] Via eTobb. Moderna Sars-(Covid-19) vaccine, mRNA, LNP-S, PF, 100 mcg/ 0.5 mL 04/18/2020 11:00:00 PM EST completed [facility] Medications Medication Brand Name Start Date Product Form Dose Route Admi nistrative Instructions Pharmacy Instructions Status Indications Reaction Description Data Source(s) Nebulizer Kit/Tubing/Mouthpiece 01/25/2021 12:00:00 AM EST active [facility] Nebulizer 01/25/2021 12:00:00 AM EST active [facility] ([facility] Nystatin 844070 UNT/ML Topical Cream Nystatin 01/24/2021 12:00:00 AM EST active [facility] ([facility] Nystatin 100 UNT/MG Topical Powder Nystatin 01/22/2021 12:00:00 AM EST completed [facility] Levofloxacin 500 MG Oral Tablet Levofloxacin 10/11/2020 12:00:00 AM EDT completed [facility] Walker 08/25/2020 12:00:00 AM EDT active [facility] ([facility] Medrol Medrol 08/07/2020 12:00:00 AM EDT active [facility] ([facility] Fluticasone Propionate Fluticasone Propionate [...] by mouth 2 (two) times a day [facility] Metformin hydrochloride 500 MG Oral Tablet metFORMIN ( GLUCOPHAGE) 500 MG tablet metFORMIN (GLUCOPHAGE) 500 MG tablet 01/11/2020 12:00:00 AM EST active [facility] Bacitracin 0.5 UNT/MG / Neomycin 0.0035 MG/MG / Polymyxin B 10 UNT/MG Topical Ointment Rlndqegq-Lucfzsgloj-Buxwrydce (FIRST AID ANTIBIOTIC) 3.5-400-5000 MG- UNIT OINT Ahkqqbzw-Gesztvjjyp-Ovzutmymn (FIRST AID ANTIBIOTIC) 3.5-400-5000 MG- UNIT OINT 12/27/2019 12:00:00 AM EST active [facility] Albuterol 0.833 MG/ML / Ipratropium Brom danial 0.167 MG/ML Inhalant Solution ipratropium-albuterol (DUO-NEB) 0.5-2.5 mg/mL nebulizer ipratropium-albuterol (DUO-NEB) 0.5-2.5 mg/mL nebulizer 12/27/2019 12:00:00 AM EST active [facility] Metolazone 2.5 MG Oral Tablet Metolazone 12/08/2019 12:00:00 AM EDT ORAL active [facility] ([facility] torsemide 20 MG Oral Tablet Torsemide 12/08/2019 12:00:00 AM EDT active [facility] ([facility] Fluconazole 100 MG Oral Tablet fluconazole (DIFLUCAN) 100 MG tablet fluconazole (DIFLUCAN) 100 MG tablet 12/08/2019 12:00:00 AM EDT aborted [facility] torsemide 10 MG Oral Tablet Torsemide 11/27/2019 12:00:00 AM EDT completed [facility] ([facility] 20 mg 11/27/2019 12:00:00 AM EDT tablet 6 TAKE ONE TABLET BY MOUTH TWICE A DAY TAKE ONE TABLET BY MOUTH TWICE A DAY SOLD: 11/27/2019 [facility] Furosemide 40 MG Oral Tablet [Lasix] Lasix 08/20/2019 12:00:00 AM EDT ORAL completed [facility] ([facility] Acetaminophen 325 MG / Oxycodone Hydrochloride 5 MG Or al Tablet Oxycodone-Acetaminophen 08/12/2019 12:00:00 AM EDT ORAL completed [facility] ([facility] Docusate Sodium 50 MG / sennosides, DETENTION 8.6 MG Oral Ta blet Senna-Docusate Sodium [...] tablet (5 mg total) by mouth daily [facility] Chronic bronchitis, unspecified chronic bronchitis type potassium chloride SA (K-DUR,KLOR-CON) 20 MEQ tablet [id number] 99-01 06/25/2019 12:00:00 AM EDT aborted [facility] Furosemide 40 MG Oral Tablet furosemide (LASIX) 40 MG tablet furosemide (LASIX) 40 MG tablet 06/11/2019 12:00:00 AM EDT 40 mg Oral abort ed Take 1 tablet (40 mg total) by mouth 2 (two) times a day [facility] tizanidine 4 MG Oral Tablet tiZANidine (ZANAFLEX) 4 MG tablet tiZANidine (ZANAFLEX) 4 MG tablet 4 mg Oral aborted Take 4 mg by mouth every 6 (six) hours as needed [facility] 60 ACTUAT Fluticasone propionate 0.5 MG/ ACTUAT / salmeterol 0.05 MG/ACTUAT Dry Powder Inhaler fluticasone-salmeterol (ADVAIR) 500-50 MCG/DOSE DISKUS fluticasone-salmeterol (ADVAIR) 500-50 MCG/DOSE DISKUS 1 {puff} Inhalation aborted Inhale 1 puff 2 (two) amy es a day [facility] Insurance Providers Payer name Policy type / Coverage type Policy ID Covered green party ID Covered green party's relationship to sellers Policy Sellers Plan Information [facility] 121/621 [id number] HU2 [id number] [facility] MANAGEMENT [facility] [id number] SP [id number] MEDICARE [id number] SP [id number] MEDICARE [id number] Susanna [id number] E78 MEDICARE [id number] Susanna [id number] A MEDICARE [id number] SP [id number] A MEDICARE A [id number] Self [id number] E78 MEDICARE [id number] xxxxxxxxxxx [id number] MEDICARE A [id number] Self [id number] A FOR LIFE [id number] HU2 [id number] FOR LIFE [id number] HU2 [id number] FOR LIFE U [id number] Self [id number] Spo [id number] xxxxxxxxxxx [id number] FOR LIFE U [id number] Self [id number] [place]EL[place] MEDICARE [id number] Susanna [id number] For Life Medigap Part B [id number] [id number] Family Dependent [id number] [place] Primary [id number] 2.0.1.866428.3.227.99.2809.98400.0 Self [id number] For Life Reg 1 Medigap Part B [id number] 2.0.1.227747.3.227.99.177.59426.0 Family Dependent [id number] Medicare - NGS Medicare Primary [id number] 2..1.625182.3.227.99.177.72104.0 Self [id number] For Life Medigap Part B [id number] 2..1.570052.3.227.99.2809.39408.0 Family Dependent [id number] Medicare [place] Medicare Primary [id number] 2..1.846650.3.227.99.2809.76204.0 Self [id number] For Life Reg 1 Medigap Part B [id number] 20.1.766068.3.227.99.177.42668.0 Family Dependent 1 [id number] Medicare - NGS Medicare Primary [id number] 2.0.1.454059.3.227.99.177.15973.0 Self [id number] MEDICARE C UNAVAILABLE [id number] S UNAVAILA BLE MEDICARE C [id number] S [id number] A FOR LIFE [id number] [facility] [id number] For Life Reg 1 Medigap Part B [id number] 20.1.847522.3.227.99.177.10837.0 Family Dependent 1 [id number] Medicare - NGS Medicare Primary [id number] 2.1.230040.3.227.99.177.56554.0 Self [id number] [place] MEDICARE PART B C [id number] S [id number] For Life Medigap Part B [id number] 2.0.1.214365.3.227.99.2809.23083.0 Family Dependent [id number] Medicare [place] Medicare Primary [id number] 2.0.1.082423.3.227.99.2809.36167.0 Self [id number] For Life Medigap Part B [id number] 2.0.1.762664.3.227.99.2809.60741.0 Family Dependent [id number] Medicare [place] Medicare Primary [id number] 2.0.1.041994.3.227.99.2809.01404.0 Self [id number] For Life Medigap Part B [id number] 2.0.1.490763.3.227.99.2809.72010.0 Family Dependent [id number] Medicare [place] Medicare Primary [id number] 2.0.1.598006.3.227.99.2809.56465.0 Self [id number] PI PI MEDICARE PI PI [id number] Spo [id number] For Life Medigap Part B [id number] 2.0.1.745011.3.227.99.2809.06021.0 Family Dependent [id number] Medicare [place] Medicare Primary [id number] 2.0.1.649456.3.227.99.2809.42821.0 Self [id number] For Life Reg 1 Medigap Part B [id number] 2.0.1.891468.3.227.99.177.99333.0 Family Dependent 1 [id number] Medicare - NGS Medicare Primary [id number] 2.0.1.723315.3.227.99.177.79784.0 Self 0 [id number] For Life - WPS Medigap Part B [id number] 2.16.840.1.696343.3.227.99.572.95537.0 Self [id number] Medicare (Part A) Medicare Primary [id number] 2.16.840.1.313432.3.227.99.572.33620.0 Self [id number] Medicare (Part B) Medicare Primary [id number] 2.16.840.1.894443.3.227.99.572.57107.0 Self 0 [id number] For Life Medigap Part B [id number] 2.16.840.1.353769.3.227.99.2809.03793.0 Family Dependent [id number] Medicare Upstate Medicare Primary [id number] 2.16.840.1.588771.3.227.99.2809.48212.0 Self [id number] For Life - WPS Medigap Part B [id number] 2.16.840.1.919960.3.227.99.572.57809.0 Self [id number] Medicare (Part A) Medicare Primary [id number] 2.16.840.1.967991.3.227.99.572.90822.0 Self 0 [id number] Medicare (Part B) Medicare Primary [id number] 2.16.840.1.449011.3.227.99.572.40221.0 Self 0 [id number] For Life Medigap Part B [id number] 2.16.840.1.702780.3.227.99.2809.79028.0 Family Dependent [id number] Medicare Up[place] Medicare Primary [id number] 2.16.840.1.568663.3.227.99.2809.74117.0 Self [id number] [facility] ADMINISTRATORS, [facility] C [id number] S [id number] For Life Medigap Part B [id number] 2.16.840.1.712732.3.227.99.2809.54007.0 Family Dependent [id number] Medicare Upstate Medicare Primary [id number] 2.0.1.307264.3.227.99.2809.06208.0 Self [id number] For Life Medigap Part B [id number] 2.0.1.439895.3.227.99.2809.09975.0 Family Dependent [id number] Medicare Upstate Medicare Primary [id number] 2.0.1.439560.3.227.99.2809.90270.0 Self [id number] For Life Medigap Part B [id number] 2.0.1.335789.3.227.99.2809.29505.0 Family Dependent [id number] Medicare Upstate Medicare Primary [id number] 04.04.830.1.113727.3.227.99.2809.23014.0 Self [id number] For Life WPS Medigap Part B [id number] .1.555937.3.227.99.1767.59048.0 Self [id number] Medicare Natl Gov't Servi Medicare Primary [id number] .[id number]54.0 Self [id number] For Life Medigap Part B [id number] 20.1.220825.3.227.99.2809.48554.0 Family Dependent [id number] Medicare Upstate Medicare Primary [id number] 20.1.793608.3.227.99.2809.25791.0 Self [id number] FOR LIFE [id number] SP [id number] For Life Medigap Part B [id number] Family Dependent Medicare [place] Medicare Primary [id number] Self FOR LIFE [id number] SP [id number] FOR LIFE [id number] SP [id number] MEDICARE [id number] SP [id number] A RETIREE MEDICAL INSURANCE PLAN [id number] SP [id number] A [facility] MEDICAID [id number] SP [id number] Y [id number] [facility] MEDICAID [id number] SP [id number] SELF PAY ONLY [id number] SP [id number] MEDICARE C [id number] S [id number] FOR LIFE O [id number] S [id number] SELF [facility] [id number] [facility] [id number] [facility] O [id number] S [id number] For Life Medigap Part B [id number] Family Dependent [id number] Medicare Up[place] Medicare Primary [id number] Self [id number] For Life Medigap Part B [id number] Family Dependent [id number] Medicare [place] Medicare Primary [id number] Self [id number] For Life Reg 1 Medigap Part B [id number] .1.673460.3.227.99.177.14549.0 Family Dependent 1 [id number] Medicare - NGS Medicare Primary [id number] .1.854969.3.227.99.177.78103.0 Self [id number] For Life Medigap Part B [id number] .[id number] Family Dependent [id number] Medicare [place] Medicare Primary [id number] [id number]16.0 Self [id number] Problems, Conditions, and Diagnoses Code Display Name Description Problem Type Effective Dates Data Source(s) R91.8 Abnormal findings on diagnostic imaging of lung Abnormal findings on diagnostic imaging of lung Problem 05/02/2020 12:00:00 AM EDT [facility] ([facility], ) E11.69 Type 2 diabetes mellitus [...] extremities Pain in both lower extr emities [id number] 01/19/2020 12:00:00 AM EST [facility] G47.33 Obstructive sleep apnea syndrome Obstructive sle ep apnea syndrome Problem 12/21/2019 12:00:00 AM EST [facility] ([facility], ) Surgeries/Procedures Procedure Description Date Indications Data Source(s) OFFICE OUTPATIENT VISIT 15 MINUTES 01/25/2021 12:00:00 AM EST [facility] Chronic Care Management Services Ea Addl 20 Min 2020 12:00:00 AM EST [facility] Chronic Care MGMT 20 Mins Clinical Staff Time Per Calendar M [facility] 01/10/2021 12:00:00 AM EST [facility] Chronic Care Management Services Ea Addl 20 Min 2020 12:00:00 AM EDT [facility] ([facility] Chronic Care MGMT 20 Mins Clinical Staff Time Per Calendar M [facility] 11/29/2020 12:00:00 AM EDT [facility] ([facility] Chronic Care MGMT 20 Mins Clinical Staff Time Per Calendar M [facility] 10/30/2020 12:00:00 AM EDT [facility] ([facility] OFFICE OUTPATIENT VISIT 25 MINUTES 10/11/2020 12:00:00 AM EDT [facility] ([facility] Chronic Care MGMT 20 Mins Clinical Staff Time Per Calendar M [facility] 10/03/2020 12:00:00 AM EDT [facility] ([facility] Chronic Care MGMT 20 Mins Clinical Staff Time Per Calendar M [facility] 08/30/2020 12:00:00 AM EDT [facility] ([facility] OFFICE OUTPATIENT VISIT 15 MINUTES 08/22/2020 12:00:00 AM EDT [facility] ([facility]) Spirometry 08/15/2020 12:00:00 AM EDT M EDENT ([facility], ) OFFICE OUTPATIENT VISIT 25 MINUTES 08/15/2020 12:00:00 AM EDT [facility] ([facility], ) PHYSICIAN TELEPHONE EVALUATION 11-20 MIN 08/08/2020 12 :00:00 AM EDT [facility] ([facility]) OFFICE OUTPATIENT VISIT 25 MINUTES 08/07/2020 12:00:00 AM EDT [facility] ([facility]) OFFICE OUTPATIENT VISIT 25 MINUTES 07/31/2020 12:00:00 AM EDT [facility] ([facility] Chronic Care MGMT 20 Mins Clinical Staff Time Per Calendar M [facility] 07/27/2020 12:00:00 AM EDT [facility] ([facility] Chronic Care Management Services Ea Addl 20 Min 2020 12:00:00 AM EDT [facility] ([facility] Chronic Care MGMT 20 Mins Clinical Staff Time Per Calendar M [facility] 07/13/2020 12:00:00 AM EDT [facility] ([facility] Diabetic Foot Exam 07/12/2020 12:00:00 AM EDT [facility] ([facility] OFFICE OUTPATIENT VISIT 25 MINUTES 07/12/2020 12:00:00 AM EDT [facility] ([facility] OFFICE OUTPATIENT VISIT 25 MINUTES 06/21/2020 12:00:00 AM EDT [facility] ([facility], ) Chronic Care Management Services Ea Addl 20 Min 2020 12:00:00 AM EDT [facility] ([facility] Chronic Care MGMT 20 Mins Clinical Staff Time Per Calendar M [facility] 06/15/2020 12:00:00 AM EDT [facility] ([facility] OFFICE OUTPATIENT NEW 45 MINUTES 06/02/2020 12:00:00 A M EDT [facility] ([facility], ) Chronic Care Management Services Ea Addl 20 Min 2020 12:00:00 AM EDT [facility] ([facility] Chronic Care MGMT 20 Mins Clinical Staff Time Per Calendar M onth 05/04/2020 12:00:00 AM EDT [facility] ([facility] X-Ray Hip Unilateral With Pelvis 2-3 Views 05/03/2020 12:00:00 AM EDT [facility] ([facility]) OFFICE OUTPATIENT VISIT 25 MINUTES 05/03/2020 12:00:00 AM EDT [facility] ([facility]) OFFICE OUTPATIENT VISIT 15 MINUTES 05/02/2020 12:00:00 AM EDT [facility] ([facility]) OFFICE OUTPATIENT VISIT 15 MINUTES 04/12/2020 12:00:00 AM EST [facility] ([facility]) ARTHROCENTESIS ASPIR&/INJECTION MAJOR JT/BURSA 021 12:00:00 AM EST [facility] ([facility]) Mammogram 01/26/2020 12:00:00 AM EST M EDDARLENE ([facility] ECG ROUTINE ECG W/LEAST 12 LDS W/I&R <td>POCT AMB EKG</td><td>Routine</td><td>01/19/2020 5:19 PM EST</td><td> Atrial flutter, unspecified type</td><td> </td> 01/19/2020 10:19:00 PM EST Atrial flutter, unspecified type [facility] Atrial flutter, unspecified type BLOOD COUNT COMPLETE AUTO&AUTO DIFRNTL WBC COUNT <td>C BC AND DIFFERENTIAL</td><td>Routine</td><td>12/08/2019</td><td></td><td> </td> 12/08/2019 12:00:00 AM EDT [facility] BASIC METABOLIC PANEL CALCIUM TOTAL <td>BASIC METABOLI C PANEL</td><td>Routine</td><td>12/08/2019</td><td></td><td> </td> 12/08/2019 12:00:00 AM EDT [facility] Results ID Date Data Source [id number] 01/21/2021 07:21:00 PM EST [facility] ([facility] Name Value Range Interpretation Code Description Data Luz rce(s) Supporting Document(s) Appearance, Urine RFX Laboratory test result [facility] ([facility] PH,Urine RFX 6.0 units 5.0-9.0 [facility] Color, Urine RFX Laboratory test result [facility] ([facility] Protein, Urine Auto RFX Laboratory test result [facility] ([facility] Specific [place] Ur Auto RFX 1.006 1.002-1.035 [facility] ([facility] Glucose, Urine (Ua) Auto RFX Laboratory test result [facility] ([facility] Ketone, Urine Auto RFX Laboratory test result [facility] ([facility] Urobilinogen, Urine Auto RFX 0.2 mg/dL 0.0-2.0 [facility] Bilirubin, Urine Auto RFX Laboratory test result [facility] ([facility] Nitrite, Urine Auto RFX Laboratory test result [facility] ([facility] Leukocyte Esterase Ur Auto RFX Laboratory test result [facility] ([facility] WBC, Urine Auto RFX 2 /HPF 0-3 [facility] ([facility] Blood, Urine Blood RFX Laboratory test result [facility] ([facility] Bacteria, Urine Auto RFX Laboratory test result [facility] ([facility] RBC, Urine Auto RFX 0 /HPF 0-3 [facility] ([facility] Squam Epithelial Cell Ur Aurfx 2 /HPF 0-6 [facility] Hyaline Cast, Urine Auto RFX 0 /LPF 0-1 [facility] ID Date Data Source [id number] 01/21/2021 07:21:00 PM EST [facility] ([facility] Name Value Range Interpretation Code Description Data Luz rce(s) Supporting Document(s) Reflex Urine Culture Laboratory test result [facility] ([facility] FULL REPORT IN LAB NOTES ([facility] and [facility] ). NO GROWTH ID Date Data Source [id number] 01/21/2021 06:46:00 PM EST [facility] ([facility] Name Value Range Interpretation Code Description Data Luz rce(s) Supporting Document(s) Blood Culture Laboratory test result [facility] ([facility] No growth after 48 hours . All specimens observed for 5 days. Results final at that time. No growth after 24 hours . All specimens observed for 5 days. Results final at that time. No Growth after 72 hours. All specimens observed for 5 days. Results final at that time. ID Date Data Source [id number] 01/21/2021 06:46:00 PM EST [facility] ([facility] Name Value Range Interpretation Code Description Data Luz rce(s) Supporting Document(s) C reactive protein [Mass/volume] in Serum or Plasma by High sensitivity method 3.23 mg/dL 0.00-0.30 [facility] ([facility] ID Date Data Source [id number] 01/21/2021 06:46:00 PM EST [facility] ([facility] [...] Little GFR Left</content>
<content>ESRD GFR <15 on UX ARCHITECT</content>
<content></content> Potassium Serum 4.4 meq/L 3.5-5.1 [facility] ([facility] Sodium Level 140 meq/L 136-145 [facility] Chloride Level 105 meq/L 98-107 [facility] Carbon Dioxide Level 28 meq/L 21-32 [facility] ([facility] Anion Gap 7 meq/L 8-16 [facility] Calcium Level 9.0 mg/dL 8.8-10.2 [facility] ([facility] ID Date Data Source [id number] 01/21/2021 06:46:00 PM EST [facility] ([facility] Name Value Range Interpretation Code Description Data Luz rce(s) Supporting Document(s) Ast/Sgot 7 U/L 7-37 [facility] ([facility] Bilirubin,Total 0.7 mg/dL 0.2-1.0 [facility] ([facility] Alt/SGPT 8 U/L 12-78 [facility] Alkaline Phosphatase 69 U/L 45-117 [facility] ([facility] Bilirubin,Direct 0.2 mg/dL 0.0-0.2 [facility] ([facility] Total Protein 5.5 GM/DL 6.4-8.2 [facility] ([facility] Albumin 3.0 GM/DL 3.2-5.2 [facility] ([facility] Albumin/Globulin Ratio 1.2 1.2-2.2 [facility] ([facility] ID Date Data Source [id number] 01/21/2021 06:46:00 PM EST [facility] ([facility] Name Value Range Interpretation Code Description Data Luz rce(s) Supporting Document(s) Erythrocyte sedimentation rate by 2H Westergren method 28 mm/hr 0-3 0 [facility] ID Date Data Source [id number] 01/21/2021 06:46:00 PM EST [facility] ([facility] Name Value Range Interpretation Code Description Data Luz rce(s) Supporting Document(s) Red Blood Count 3.52 10 4.00-5.40 [facility] ([facility] White Blood Count 6.7 10 4.0-10.0 [facility] ([facility] Mean Corpuscular Volume 92.0 fl 80.0-96.0 M [facility] ([facility] Hematocrit 32.4 % 36.0-47.0 [facility] ([facility] Hemoglobin 10.0 g/dL 12.0-15.5 [facility] [...] % 24.0-44.0 [facility] ([facility] [place] % 9.5 % 2.0-8.0 [facility] Eos % 4.5 % 0.0-3.0 [facility] ([facility] Baso % 0.5 % 0.0-1.0 [facility] Immature Granulocyte % 0.3 % 0-3.0 [facility] Nucleated Red Blood Cell % 0.0 % 0-0 MED [facility] ([facility] Neutrophils # 4.6 10 1.5-8.5 [facility] ([facility] Lymph # 1.1 10 1.5-5.0 [facility] ([facility] [place] # 0.6 10 0.0-0.8 [facility] ([facility] Eos # 0.3 10 0.0-0.5 [facility] ([facility] Baso # 0.0 10 0.0-0.2 [facility] ID Date Data Source [id number] 01/21/2021 06:46:00 PM EST [facility] ([facility] Name Value Range Interpretation Code Description Data Luz rce(s) Supporting Document(s) Lactate [Mass/volume] in Serum or Plasma 1.5 mmol/L 0.4-2.0 [facility] ([facility] Y/N query for Sepsis Lactate Rule: Y ID Date Data Source [id number] 10/18/2020 04:26:00 PM EDT [facility] ([facility] [...] AFTER 5 DAYS ID Date Data Source [id number] 10/18/2020 04:07:00 PM EDT [facility] ([facility] [...] pathogens. DISCLAIMER: Testing was performed using the [facility] SARS-CoV-2 test. This test was developed and its performance characteristics determined by [facility]. This test has not been FDA cleared [...] patient management decisions. ID Date Data Source [id number] 10/18/2020 04:07:00 PM EDT [facility] ([facility] [...] AFTER 5 DAYS ID Date Data Source [id number] 10/18/2020 04:07:00 PM EDT [facility] Name Value Range Interpretation Code Description Data [facility] rce(s) Supporting Document(s) SARS coronavirus 2 RNA [Presence] in Res piratory specimen by TEO with probe detection NEGATIVE [facility] This lab was ordered by [facility] a nd reported by [facility] ID Date Data Source [id number] 10/18/2020 01:47:00 PM EDT [facility] ([facility] Name Value Range Interpretation Code Description [facility] Document(s) Red Blood Count 3.31 10 4.00-5.40 [facility] ([facility] White Blood Count 5.3 10 4.0-10.0 [facility] [...] ([facility] Platelet Count, Automated 110 10 150-450 [facility] ([facility] Neutrophils % 74.9 % 36.0-66.0 [facility] ([facility] [place] % 7.5 % 2.0-8.0 [facility] ([facility]uzhat rivera [...] 10 1.5-8.5 [facility] ([facility] [place] # 0.4 10 0.0-0.8 [facility] ([facility] Lymph # 0.7 10 1.5-5.0 [facility] Baso # 0.0 10 0.0-0.2 [facility] ([facility] Eos # 0.2 10 0.0-0.5 [facility] ([facility] ID Date Data Source [id number] 10/18/2020 01:47:00 PM EDT [facility] ([facility] [...] <content>Troponin I Reference Interval f or Siemens [place] LOCI:</content>
<content></content>
<content>99th Percentile= 0.00-0.045 ng/ml</content>
<content></content>
<content>Risk Stratification:</content>
<content><= 0.10 ng/ml Decreased Risk for Adverse Clinical</content>
<content>Events.</content>
<content>0.10-1.50 ng/ml Increased Risk for Adverse Clinical</content>
<content>Events. Evaluation of additional</content>
<content>criterion and/or repeat testing in 2-6</content>
<content>hours is suggested to rule out myocardial</content>
<content>damage.</content>
<content>>= 1.50 ng/ml Indicative of Myocardial Injury.</content>
<content></content> ID Date Data Source [id number] 10/18/2020 01:47:00 PM EDT [facility] ([facility] Name Value Range Interpretation Code Description Data Luz rce(s) Supporting Document(s) Blood Urea Nitrogen 20 mg/dL 7-18 [facility] ([facility] Glucose, Fasting 169 mg/dL 70-100 [...] Little GFR Left</content>
<content>ESRD GFR <15 on UX ARCHITECT</content>
<content></content> Creatinine For GFR 1.34 mg/dL 0.55-1.30 [facility] ([facility] Sodium Level 140 meq/L 136-145 [facility] ([facility] Potassium Serum 4.3 meq/L 3.5-5.1 [facility] ([facility] Carbon Dioxide Level 30 meq/L 21-32 [facility] ([facility] Chloride Level 106 meq/L 98-107 [facility] Anion Gap 4 meq/L 8-16 [facility] ([facility] Calcium Level 8.7 mg/dL 8.8-10.2 [facility] ([facility] ID Date Data Source [id number] 10/18/2020 01:47:00 PM EDT [facility] ([facility] [...] [facility] ID Date Data Source [id number] 10/11/2020 03:31:00 PM EDT [facility] ([facility] Name Value Range Interpretation Code Description Data Luz rce(s) Supporting Document(s) Creatinine, Urine 52.4 mg/dL [facility] ([facility] Malb Urine Siemens 9.0 mg/L [facility] ([facility] Moose/Creat Ratio 17.1 MCG/MG 0.0-30.0 [facility] ([facility] THE [employer] STATES THAT MICROALBUMINURIA IS PRESENT IF THE MICROALBUMIN/CREATININE RATIO EXCEEDS 30 MCG/MG. THE THRESHOLD FOR CLINICAL ALBUMINURIA IS REACHED AT 300 MCG/MG. THE CLASSIFICATION OF A PATIENT SHOULD BE BASED UPON AT LEAST 2 OF 3 ABNORMAL RESULTS ON SPECIMENS COLLECTED WITHIN A 3 TO 6 MONTH TIME FRAME. ID Date Data Source [id number] 10/11/2020 03:31:00 PM EDT [facility] ([facility] Name Value Range Interpretation Code Description Data Luz rce(s) Supporting Document(s) Cholesterol Level 98 mg/dL [facility] ([facility] Triglycerides Level 75 mg/dL [facility] ([facility] LDL Cholesterol 37 mg/dL [facility] ([facility] HDL Cholesterol 46 mg/dL [facility] Cholesterol Risk Ratio 2.130 [facility] ([facility] Non-HDL-C 52 mg/dL [facility] ([facility] ID Date Data Source [id number] 10/11/2020 03:31:00 PM EDT [facility] ([facility] Name Value Range Interpretation Code Description Data Luz rce(s) Supporting Document(s) Hemoglobin A1c/Hemoglobin.total in Blood 5.9 % [facility] ([facility] <content>REFERENCE RANGES:</content><br/ ><content></content>
<content><=5.6% NORMAL</content>
<content>5.7-6.4% SUGGESTS IMPAIRED GLUCOSE METABOLISM/PREDIABETIC</content>
<content>>= 6.5% ABNORMAL</content>
<content></content> Estimated Average Glucose 123 mg/dL 60-110 [facility] ID Date Data Source [id number] 10/11/2020 03:31:00 PM EDT [facility] ([facility] Name Value Range Interpretation Code Description Data Luz rce(s) Supporting Document(s) Blood Urea Nitrogen 20 mg/dL 7-18 [facility] ([facility] Glucose, Fasting 90 mg/dL 70-100 [facility] Sodium Level 139 meq/L 136-145 [facility] Creatinine For GFR 1.42 [...] Little GFR Left</content>
<content>ESRD GFR <15 on UX ARCHITECT</content>
<content></content> Potassium Serum 4.1 meq/L 3.5-5.1 [facility] [...] [facility] ID Date Data Source [id number] 08/15/2020 11:05:00 AM EDT [facility] ([facility]) Name Value Range Interpretation Code Description Data Luz rce(s) Supporting Document(s) FVC-Pred 2.45 L [facility] ([facility]) PDFReport Laboratory test result [facility] ([facility]) FVC-%Pred-Pre 63 L [facility] ([facility]) FVC-LLN 1.80 L [facility] ([facility]) FVC-Pre 1.55 L [facility] ([facility]) Fev1-Pre 1.31 L [facility] ([facility]) Fev1-Pred 1.82 L [facility] ([facility]) Fev1-%Pred-Pre 71 L [facility] ([facility]) Fev6-Pred 2.32 L [facility] ([facility]) Fev1-LLN 1.27 L [facility] ([facility]) Fev6-%Pred-Pre 66 L [facility] ([facility]) Fev6-Pre 1.55 L [facility] ([facility]) Syd1fwi-Ebjf 74 % [facility] ([facility]) Oxt6tkn-Iak 84 % [facility] ([facility]) Fev6-LLN 1.68 L [facility] ([facility]) Tkm0mlj-SND 64 % [facility] ([facility]) Mve5nvi-%Pred-Pre 113 % [facility] ([facility]) Skz3ymu-%Pred-Pre 105 % [facility] ([facility]) Phs6mxo-Jdv 100 % [facility] ([facility]) Wgl8gbz-Erbj 95 % [facility] ([facility]) FEFMax-Pred 4.68 L/E/sec [facility] ([facility]) FEFMax-Pre 3.53 L/E/sec [facility] ([facility]) FEFMax-%Pred-Pre 75 L/E/sec [facility] ([facility]) FEFMax-LLN 3.07 L/E/sec [facility] ([facility]) Zgy5947-Nlyu 1.40 L/E/sec [facility] ([facility]) Tzk8050-XPY 0.23 L/E/sec [facility] ([facility]) Oog2101-Ngf 1.51 L/E/sec [facility] ([facility]) Fmr5389-%Pred-Pre 108 L/E/sec [facility] ([facility]) ExpTime-Pre 4.54 sec [facility] ([facility]) Qov8ilx5-Xrwx 78 % [facility] ([facility]) Gtz5dbq8-Smx 84 % [facility] ([facility]) Ooh9ioh5-%Pred-Pre 108 % [facility] ([facility]) Rfq9blu7-JLQ 69 % [facility] ([facility]) ID Date Data Source [id number] 08/03/2020 02:55:00 PM EDT [facility] ([facility] Name Value Range Interpretation Code Description Data Luz rce(s) Supporting Document(s) Glucose, Fasting 121 mg/dL 70-100 [facility] ([facility] Creatinine For GFR 1.55 mg/dL 0.55-1.30 [facility] ([facility] Blood Urea Nitrogen 24 mg/dL 7-18 [facility] ([facility] Potassium Serum 4.6 meq/L [...] Little GFR Left</content>
<content>ESRD GFR <15 on UX ARCHITECT</content>
<content></content> Sodium Level 136 meq/L 136-145 [facility] Carbon Dioxide Level 33 meq/L 21-32 [facility] ([facility] Chloride Level 97 meq/L 98-107 [facility] Anion Gap 6 meq/L 8-16 [facility] ([facility] Calcium Level 9.8 mg/dL 8.8-10.2 [facility] ([facility] ID Date Data Source [id number] 07/31/2020 01:30:00 PM EDT [facility] ([facility] Name Value Range Interpretation Code Description Data Luz rce(s) Supporting Document(s) Blood Urea Nitrogen 21 mg/dL 7-18 [facility] ([facility] Glucose, Fasting 173 mg/dL [...] Little GFR Left</content>
<content>ESRD GFR <15 on UX ARCHITECT</content>
<content></content> Creatinine For GFR 1.33 mg/dL 0.55-1.30 [facility] ([facility] Potassium Serum 2.9 meq/L 3.5-5.1 Below lower panic limits [facility] ([facility] Carbon Dioxide Level 32 meq/L 21-32 [facility] ([facility] Chloride Level 99 meq/L 98-107 [facility] ([facility] Calcium Level 9.7 mg/dL 8.8-10.2 [facility] ([facility] Anion Gap 7 meq/L 8-16 [facility] ([facility] ID Date Data Source [id number] 07/26/2020 11:54:00 PM EDT [facility] ([facility] Name Value Range Interpretation Code Description Data Luz rce(s) Supporting Document(s) Troponin I.cardiac [Mass/volume] in Serum or Plasma 0.00 ng/mL 0.00-0 .08 [facility] ([facility] ID Date Data Source [id number] 06/24/2020 04:04:54 PM EDT [facility] Name Value Range Interpretation Code Description Data Luz rce(s) Supporting Document(s) &PDF [facility] BUMJDu3wMaQJCqVa95/ETYgjOKNyy0DzPPswEKo3FXjeXJUhT9IxhVztWXFOOtYDZQOfMQ8YI7MJBcFz oRX [file] AgICAgICAgICAgICAgICAgICAgICAgICAgICAgICAgICAgICAgICAgICAgICAgICAgICAgDQogICAgIC AgICAgICAgICAgICAgICAgICAgICAgICAgICAgICAg ICAgICAgICAgICAgICAgICAgICAgICAgICAgICAgICAgICAgICAgICAgICAgICAgICAgICAgICAgICAg ICAgDQogICAgICAgICAgICAgICAgICAgICAgICAgICAgICAgICAgICAgICAgICAgICAgICAgICAgICAg ICAgICAgICAgICAgICAgICAgICAgICAgICAgICAgIC AgICAgICAgICAgICAgDQogICAgICAgICAgICAgICAgICAgICAgICAgICAgICAgICAgICAgICAgICAgIC AgICAgICAgICAgICAgICAgICAgICAgICAgICAgICAgICAgICAgICAgICAgICAgICAgICAgICAgDQogIC AgICAgICAgICAgICAgICAgICAgICAgICAgICAgICAg ICAgICAgICAgICAgICAgICAgICAgICAgICAgICAgICAgICAgICAgICAgICAgICAgICAgICAgICAgICAg ICAgICAgDQogICAgICAgICAgICAgICAgICAgICAgICAgICAgICAgICAgICAgICAgICAgICAgICAgICAg ICAgICAgICAgICAgICAgICAgICAgICAgICAgICAgIC AgICAgICAgICAgICAgICAgDQogICAgICAgICAgICAgICAgICAgICAgICAgICAgICAgICAgICAgICAgIC AgICAgICAgICAgICAgICAgICAgICAgICAgICAgICAgICAgICAgICAgICAgICAgICAgICAgICAgICAgDQ ogICAgICAgICAgICAgICAgICAgICAgICAgICAgICAg ICAgICAgICAgICAgICAgICAgICAgICAgICAgICAgICAgICAgICAgICAgICAgICAgICAgICAgICAgICAg ICAgICAgICAgDQogICAgICAgICAgICAgICAgICAgICAgICAgICAgICAgICAgICAgICAgICAgICAgICAg ICAgICAgICAgICAgICAgICAgICAgICAgICAgICAgIC AgICAgICAgICAgICAgICAgICAgDQogICAgICAgICAgICAgICAgICAgICAgICAgICAgICAgICAgICAgIC AgICAgICAgICAgICAgICAgICAgICAgICAgICAgICAgICAgICAgICAgICAgICAgICAgICAgICAgICAgIC CdEEx0D7zuVBZiCJPeKQ5lCPe4Ki5+DQoNCmVuZHN0 raKuvA5NVP1yy3FcTPrhMRRxp7SfCSt5VZ8XILSuLGptAK8CHLvztd9BQAPbKGXbsLIPj6xoVdQoNQX4 RXAeEjwnME3FSHJxS0geobRaRCBrBYPEZHmwKXSUYB1SMxRkM7NzjC95GKHGOh1+DQplbmRvYmoNCjMz BTLgn1SiZEy7DN7ITJQnMVjhTG3MLTPsiW9xUMotKP 4GHgDwGRXwTKSFRhQkU62olWFdNNg8E1LdWmGoFQPuNujtPXLiJDolWaTyJUWqMeNmGEhqNJ3+ID4+DQ pmCK5JUBzxnuAlGYNmNg5IGVKaDWQ0IYQfqXGdLvJiKFRYXLddAB7GkHCsTIC5mT6lHWgqOBUvZKJzV6 qUApLeeDmsLK38lOuxshSmfJMuWMc+Df3BKT5cx5Kl VKz7roLkOIqsWLD4ULbbSKWhODTqHKTjYQF6GNI2VKQNVhMxYQMmKJXfVSznBPXmETKnsw7GXPHsJBSf ZPO3LSIgCCTqFRWfZBmnUXAtEEOcVQXwHMSqWWQcLH7BFjHtPJTbPEEgQYIpOQOcODRrzk4MZSIuNIXr AmU7LeFkYBFlAGJfEVbgKNLnBYGiYuFeGFUaHIZgAL 2EMdMeOJSuTVHnJgThLCYtCDGeer7XDTRjHUDsSLNcTzLrXMIoWSXnXRwaAKHeWVX7Lqi8SXLbUHWoVK 5QGeKxTJLqZKW1DZPhPEZoGPCufd6MEMJbNYUgNvV2XpRzQNEvPYQxKFhyPVTaOQU8LlPvJHQmPFDnEK 2EHrWcJDReLWw7YyBfFRVjOYChuq7MBSEsIRPyMTUt HuXpVFJbKAReGXotKUFmONEzDPc9MYVsTUSkCR0KNwSbVVXkDWTyJGOeLVUaYYGcvu9SRKXmTITxXyZb UzUdUSGpCCRkGGsfRAGhLIAdSeU6FIXkTSJwXB7GBbNsCWSrLQU7IDOuTNVzLMNfie0DBMPhLCTwXBfd FwWeFPXiGXEuOJvlZYIbWBR7ESNwHXAwESOrSM5DNe UgCQTyECEnLKQdOIPoACLjii8UZBItQLKaNfXeFpOfNQByDELpZXvyWIVzCDY5ScFiEHGmVMCtHK9CJu TjFYPeVKPeNAwiUWLxDIYpuc2OEWWrHGQoWxafZVPmSSVcNVMfCTjnJJSyJGX6QUI7VKDeTIGwTU8IMx WdZUAlPJitOznaMJFvQPYzbc9XCCUkKWZcSjPnPxDi BRLmLJLtOFkeGFLaHME7LPF1BQOwGEUoGG0LSjZeXDMiNSxuRhrtGRObNZQqpm4HDXHdFXHbETB4DsEb SKXpBRDiLTdiFARwPCVyYVF2JNRzWMKkKB2VUgOuKDweDSKKDvn4QRaeX4d1BFAaZI7FK3Agn3JtHwIz ROWURZnrIB7hwpWkBMNyTz6UR0zVLrytW4SjOUU0TD VwHASqHNDpHQc1Iku3ZGrtADvfQNN9CU0jPFZmIUOoCYssZRYiOKRhIKYnDYRbIXzuRmFgYSF5IeokLj FmWW5AKe4TPjL6GIS2bYNnRs9COqPtEDDGNtNnFM9GHZh= ID Date Data Source [id number] 06/06/2020 11:31:00 PM EDT [facility] ([facility]uzhat Langley [...] pathogens. DISCLAIMER: Testing was performed using the [facility] SARS-CoV-2 test. This test was developed and its performance characteristics determined by [facility]. This test has not been FDA cleared [...] or revoked sooner. ID Date Data Source [id number] 06/06/2020 11:31:00 PM EDT [facility] Name Value Range Interpretation Code Description Data Luz rce(s) Supporting Document(s) SARS coronavirus 2 RNA [Presence] in Res piratory specimen by [facility] with probe detection NEGATIVE [facility] This lab was ordered by [facility] a nd reported by [place] [facility] [facility] ID Date Data Source [id number] 06/06/2020 10:54:00 PM EDT [facility] ([facility] Name Value Range Interpretation Code Description Data Luz rce(s) Supporting Document(s) Natriuretic peptide.B prohormone N-Terminal [Mass/volu me] in Serum or Plasma 260 pg/mL [facility] ID Date Data Source [id number] 06/06/2020 10:54:00 PM EDT [facility] ([facility] Name Value Range Interpretation Code Description [facility] Supporting Document(s) Blood Urea Nitrogen 22 mg/dL [...] Little GFR Left</content>
<content>ESRD GFR <15 on UX ARCHITECT</content>
<content></content> Sodium Level 140 meq/L 136-145 [facility] [...] [facility] ID Date Data Source [id number] 06/06/2020 10:54:00 PM EDT [facility] (Nuzhat Langley [...] [facility] ID Date Data Source [id number] 06/06/2020 10:54:00 PM EDT [facility] (Nuzhat Langley [...] <content>Troponin I Reference Interval f or Siemens [place] LOCI:</content>
<content></content>
<content>99th Percentile= 0.00-0.045 ng/ml</content>
<content></content>
<content>Risk Stratification:</content>
<content><= 0.10 ng/ml Decreased Risk for Adverse Clinical</content>
<content>Events.</content>
<content>0.10-1.50 ng/ml Increased Risk for Adverse Clinical</content>
<content>Events. Evaluation of additional</content>
<content>criterion and/or repeat testing in 2-6</content>
<content>hours is suggested to rule out myocardial</content>
<content>damage.</content>
<content>>= 1.50 ng/ml Indicative of Myocardial Injury.</content>
<content></content> ID Date Data Source [id number] 06/06/2020 10:54:00 PM EDT [facility] ([facility] Name Value Range Interpretation Code Description Data Luz rce(s) Supporting Document(s) Lactate [Mass/volume] in Serum or Plasma 1.9 mmol/L 0.4-2.0 [facility] ([facility] Y/N query for Sepsis Lactate Rule: Y ID Date Data Source [id number] 06/06/2020 10:54:00 PM EDT [facility] (Nuzhat Langley [...] % 24.0-44.0 [facility] [place] % 6.9 % 2.0-8.0 [facility] (Nuzhat rivera [...] 10 1.5-8.5 [facility] [place] # 0.6 10 0.0-0.8 [facility] Eos # 0.2 10 0.0-0.5 [facility] Baso # 0.0 10 0.0-0.2 [facility] ID Date Data Source [id number] 05/18/2020 10:45:00 AM EDT [facility] (Nuzhat Langley [...] by the U.S. Food and Drug Administration. [facility] are designated as high complexity laboratories by the Clinical Laboratory Improvement Amendments of 1988(CLIA) and is qualified to perform this test. ASSAY INFORMATION: Real Time RT-PCR ID Date Data Source [id number] 05/18/2020 12:00:00 AM EDT [facility] Name Value Range Interpretation Code Description Data Luz rce(s) Supporting Document(s) SARS-CoV-2 (COVID-19) RNA [Presence] in Respiratory specimen by TEO with probe detection Not Detected [facility] This lab was ordered by [facility] and reported by [facility] ID Date Data Source [id number] 04/10/2020 12:00:00 AM EST [facility] Nuzhat Langley MD Patient Name: MYAH [id number] [address] Date of : 1940[place] [address] Date of Exam: 04/10/2020#: Fax: [phone] EXAM: [...] rce(s) Supporting Document(s) ID Date Data Source [id number] 04/10/2020 12:00:00 AM EST [facility] Nuzhat Langle[facility] MD Patient Name: MYAH [id number] [address] Date of : 1940[place] [address] Date of Exam: 04/10/2020#: Fax: [phone] EXAM: [...] effusion.IMPRESSION:Moderate degenerative changes as discussed above.ADELFO Garcia/Kelsey you for referring MYAH DEAL to our office. Electronically Signed - CATALINA GOYAL MD 04/10/20 19:26 Name Value Range Interpretation Code Description Data Luz rce(s) Supporting Document(s) ID Date Data Source [id number] 04/06/2020 07:29:00 PM EST [facility] Name Value Range Interpretation Code Description Data Luz rce(s) Supporting Document(s) Appearance, Urine RFX Laboratory test result [facility] ([facility] Color, Urine RFX Laboratory test result [facility] ([facility] PH,Urine RFX 6.0 units 5.0-9.0 [facility] ([facility] Specific [place] Ur Auto RFX 1.030 1.002-1.035 [facility] (Nuzhat [...] [facility] ID Date Data Source [id number] 04/06/2020 05:47:00 PM EST [facility] (Nuzhat Langley [...] [facility] ID Date Data Source [id number] 04/06/2020 05:27:00 PM EST [facility] ([facility] Name Value Range Interpretation Code Description Data Luz rce(s) Supporting Document(s) Erythrocyte sedimentation rate by 2H Westergren method 35 mm/hr 0-3 0 [facility] ([facility] ID Date Data Source [id number] 04/06/2020 05:27:00 PM EST [facility] (Nuzhat Langley [...] % 36.0-66.0 [facility] ([facility] [place] % 5.7 % 2.0-8.0 [facility] (Nuzhat rivera [...] 10 1.5-5.0 [facility] [place] # 0.5 10 0.0-0.8 [facility] ([facility] Eos # 0.1 10 0.0-0.5 [facility] ([facility] Baso # 0.0 10 0.0-0.2 [facility] ([facility] ID Date Data Source [id number] 04/06/2020 05:27:00 PM EST [facility] ([facility] Name Value Range Interpretation Code Description Data Luz rce(s) Supporting Document(s) C reactive protein [Mass/volume] in Serum or Plasma by High sensitivity method 1.31 mg/dL 0.00-0.30 [facility] ([facility] ID Date Data Source [id number] 03/07/2020 11:43:00 PM EST [facility] (Nuzhat Langley [...] [facility] ID Date Data Source [id number] 03/07/2020 09:42:00 PM EST [facility] (Nuzhat Langley [...] - SARS-CoV-2 (COVID19) ID Date Data Source [id number] 03/07/2020 09:42:00 PM EST [facility] Name Value Range Interpretation Code Description Data Luz e(s) Supporting Document(s) SARS-CoV-2 (COVID 19) NEGATIVE - SARS-CoV-2 (COVID19) [facility] This lab was ordered by [facility] a nd reported by [facility]. ID Date Data Source [id number] 01/31/2020 01:53:00 PM EST [facility] (Nuzhat Langley [...] [facility] ID Date Data Source [id number] 01/31/2020 01:53:00 PM EST [facility] ([facility] Name Value Range Interpretation Code Description Data Luz rce(s) Supporting Document(s) Natriuretic peptide.B prohormone N-Terminal [Mass/volu me] in Serum or Plasma 226 pg/mL [facility] ([facility] ID Date Data Source [id number] 01/31/2020 01:53:00 PM EST [facility] (Nuzhat Langley [...] Little GFR Left</content>
<content>ESRD GFR <15 on UX ARCHITECT</content>
<content></content> Creatinine For GFR 1.48 mg/dL 0.55-1.30 [...] [facility] ID Date Data Source [id number] 01/31/2020 01:53:00 PM EST [facility] (Nuzhat Langley [...] [facility] Bilirubin,Direct 0.4 mg/dL 0.0-0.2 [facility] ([facility] Albumin 3.4 GM/DL 3.2-5.2 [facility] ([facility] Albumin/Globulin Ratio 1.5 1.2-2.2 [facility] ([facility] ID Date Data Source [id number] 01/31/2020 01:53:00 PM EST [facility] (Nuzhat Langley [...] <content>Troponin I Reference Interval f or Siemens [place] LOCI:</content>
<content></content>
<content>99th Percentile= 0.00-0.045 ng/ml</content>
<content></content>
<content>Risk Stratification:</content>
<content><= 0.10 ng/ml Decreased Risk for Adverse Clinical</content>
<content>Events.</content>
<content>0.10-1.50 ng/ml Increased Risk for Adverse Clinical</content>
<content>Events. Evaluation of additional</content>
<content>criterion and/or repeat testing in 2-6</content>
<content>hours is suggested to rule out myocardial</content>
<content>damage.</content>
<content>>= 1.50 ng/ml Indicative of Myocardial Injury.</content>
<content></content> ID Date Data Source [id number] 01/31/2020 01:53:00 PM EST [facility] (Nuzhat Langley [...] HGB Conc 30.7 g/dL 32.0-36.5 [facility] ([facility] Red Cell Distribution Width 16.8 % 11.5-14.5 [facility] ([facility] Platelet Count, Automated 144 10 150-450 [facility] ([facility] Neutrophils % 80.7 % 36.0-66.0 [facility] ([facility] Lymph % 11.0 % 24.0-44.0 [facility] ([facility] [place] % 6.1 % 0.0-5.0 [facility] (Nuzhat rivera [...] 10 0.0-0.5 [facility] ([facility] [place] # 0.6 10 0.0-0.8 [facility] ([facility] Baso # 0.0 10 0.0-0.2 [facility] ([facility] ID Date Data Source [id number] 01/24/2020 12:25:00 AM EST [facility] (Nuzhat Langley [...] <content>Troponin I Reference Interval f or Siemens [place] LOCI:</content>
<content></content>
<content>99th Percentile= 0.00-0.045 ng/ml</content>
<content></content>
<content>Risk Stratification:</content>
<content><= 0.10 ng/ml Decreased Risk for Adverse Clinical</content>
<content>Events.</content>
<content>0.10-1.50 ng/ml Increased Risk for Adverse Clinical</content>
<content>Events. Evaluation of additional</content>
<content>criterion and/or repeat testing in 2-6</content>
<content>hours is suggested to rule out myocardial</content>
<content>damage.</content>
<content>>= 1.50 ng/ml Indicative of Myocardial Injury.</content>
<content></content> ID Date Data Source [id number] 01/23/2020 09:51:00 PM EST [facility] ([facility] Name Value Range Interpretation Code Description Data Luz rce(s) Supporting Document(s) Blood Urea Nitrogen 24 mg/dL 7-18 [facility] ([facility] Glucose, Fasting 149 mg/dL 70-100 [facility] ([facility] Glomerular Filtration Rate 32.9 [facility] ([facility] <content>Units are mL/min/1.73 m2</content>
<content></content>
<content>Chronic Kidney Disease Staging per NKF:</content>
<content></content>
<content>Stage I & II GFR >=60 Normal to Mildly Decreased</content>
<content>Stage III GFR 30- 59 Moderately Decreased</content>
<content>Stage IV GFR 15-29 Severely Decreased</content>
<content>Stage V GFR <15 Very Little GFR Left</content>
<content>ESRD GFR <15 on UX ARCHITECT</content>
<content></content> Creatinine For GFR 1.61 mg/dL 0.55-1.30 [...] [facility] ID Date Data Source [id number] 01/23/2020 09:51:00 PM EST [facility] ([facility] Name Value Range Interpretation Code Description Data Luz rce(s) Supporting Document(s) Ast/Sgot 7 U/L 7-37 [facility] ([facility] A. Choco liams[facility] Alt/SGPT 9 U/L 12-78 [facility] [...] [facility] ID Date Data Source [id number] 01/23/2020 09:51:00 PM EST [facility] ([facility] Name Value Range Interpretation Code Description Data Luz rce(s) Supporting Document(s) CK-MB Value Mass Laboratory test result [facility] ([facility] CPK Creatine Phosphokinase 43 U/L 26-192 [facility] ([facility] Troponin I Laboratory test result [facility] ([facility] <content>Troponin I Reference Interval f or Siemens [place] LOCI:</content>
<content></content>
<content>99th Percentile= 0.00-0.045 ng/ml</content>
<content></content>
[...] > 4</content>
<content></content> ID Date Data Source [id number] 01/23/2020 09:51:00 PM EST [facility] (Nuzhat Langley [...] MYOCARDIAL INFARCTION 2.5-3.5 ID Date Data Source [id number] 01/23/2020 09:51:00 PM EST [facility] (Nuzhat Langley [...] % 11.5-14.5 [facility] ([facility] [place] % 5.0 % 0.0-5.0 [facility] (Nuzhat rivera [...] 10 0.0-0.5 [facility] ([facility] [place] # 0.5 10 0.0-0.8 [facility] ([facility] Baso # 0.0 10 0.0-0.2 [facility] ([facility] ID Date Data Source [id number] 01/23/2020 09:51:00 PM EST [facility] ([facility] Name Value Range Interpretation Code Description Data Luz rce(s) Supporting Document(s) Natriuretic peptide.B prohormone N-Terminal [Mass/volu me] in Serum or Plasma 519 pg/mL [facility] ID Date Data Source [id number] 01/19/2020 02:58:00 PM EST [facility] ([facility] Name Value Range Interpretation Code Description Data Luz rce(s) Supporting Document(s) Hemoglobin A1c/Hemoglobin.total in Blood 6.5 % [facility] ([facility] <content>REFERENCE RANGES:</content><br/ ><content></content>
<content><=5.6% NORMAL</content>
<content>5.7-6.4% SUGGESTS IMPAIRED GLUCOSE METABOLISM/PREDIABETIC</content>
<content>>= 6.5% ABNORMAL</content>
<content></content> Estimated Average Glucose 140 mg/dL 60-110 [facility] ([facility] ID Date Data Source [id number] 01/19/2020 02:58:00 PM EST [facility] (Nuzhat Langley [...] Little GFR Left</content>
<content>ESRD GFR <15 on UX ARCHITECT</content>
<content></content> Carbon Dioxide Level 37 meq/L 21-32 [...] [facility] ID Date Data Source [id number] 12/02/2019 07:46:00 PM EDT [facility] (Nuzhat Langley [...] pathogens. DISCLAIMER: Testing was performed using the Kinnek SARS-CoV-2 test. This test was developed and its performance characteristics determined by [facility]. This test has not been FDA cleared [...] or revoked sooner. ID Date Data Source [id number] 12/02/2019 07:06:00 PM EDT [facility] (Nuzhat Langley [...] or Plasma 1.970 uIU/ML 0.358-3.74 0 [facility] ([facility] ID Date Data Source [id number] 12/02/2019 07:06:00 PM EDT [facility] (Nuzhat Langley [...] [facility] ID Date Data Source [id number] 12/02/2019 07:06:00 PM EDT [facility] (Nuzhat Langley [...] MYOCARDIAL INFARCTION 2.5-3.5 ID Date Data Source [id number] 12/02/2019 07:06:00 PM EDT [facility] (Nuzhat Langley [...] Corpuscular Volume 89.6 fl 80.0-96.0 M [facility] ([facility] Red Cell Distribution Width 17.1 % 11.5-14.5 [facility] ([facility] Mean Corpuscular HGB Conc 30.4 g/dL 32.0-36.5 [facility] ([facility] Platelet Count, Automated 169 10 150-450 [facility] ([facility] Neutrophils % 79.0 % 36.0-66.0 [facility] ([facility] Lymph % 10.9 % 24.0-44.0 [facility] ([facility] [place] % 7.1 % 0.0-5.0 [facility] ([facility] Eos % 1.9 % 0.0-3.0 [facility] ([facility] Baso % 0.5 % 0.0-1.0 [facility] ([facility] Nucleated Red Blood Cell % 0.0 % 0-0 [facility] ([facility] Immature Granulocyte % 0.6 % 0-3.0 [facility] ([facility] Lymph # 1.0 10 1.5-5.0 [facility] ([facility] Neutrophils # 6.9 10 1.5-8.5 [facility] ([facility] Eos # 0.2 10 0.0-0.5 [facility] ([facility] [place] # 0.6 10 0.0-0.8 [facility] ([facility] Baso # 0.0 10 0.0-0.2 [facility] ([facility] ID Date Data Source [id number] 12/02/2019 07:06:00 PM EDT [facility] (Nuzhat Langley [...] [facility] ID Date Data Source [id number] 12/02/2019 06:37:00 PM EDT [facility] ([facility] Name Value Range Interpretation Code Description Data Luz rce(s) Supporting Document(s) Troponin I.cardiac [Mass/volume] in Serum or Plasma 0.00 ng/mL 0.00-0 .08 [facility] ([facility] ID Date Data Source [id number] 12/02/2019 06:35:00 PM EDT [facility] (Nuzhat Langley [...] Value Status Description Data Source(s ) Smoking 01/25/2021 12:00:00 AM EST - 08/15/2013 12:00:00 AM EDT Patient is a former smoker completed Patient is a former smoker [facility] ([facility] Smoking 06/21/2020 12:00:00 AM EDT Patient is a former smoker completed Patient is a former smoker [facility] ([facility], ) Alcohol intake 06/07/2020 12:00:00 AM EDT No completed [facility] Cigarette pack-years 06/07/2020 12:00:00 AM EDT UNK completed [facility] Cigarettes smoked current (pack per day) - Reported 06/08/19 12:00:00 AM EDT UNK completed [facility] Smoking 06/07/2020 12:00:00 AM EDT Former smoker completed Former smoker [facility] Alcohol intake 01/19/2020 12:00:00 AM EST No completed [facility] Cigarette pack-years 01/19/2020 12:00:00 AM EST UNK completed [facility] Cigarettes smoked current (pack per day) - Reported 01/19/20 12:00:00 AM EST UNK completed [facility] Smoking 01/19/2020 12:00:00 AM EST Former smoker completed Former smoker [facility] Vital Signs ID Date Data Source [id number] Name Value Range Interpretation Code Description Data Source(s) Systolic blood pressure 123 mm[Hg] 123 mm[Hg] M [facility] ([facility] Body height 61.5 [in_i] 61.5 [in_i] [facility] ([facility] 5'1.50" Body weight 210.00 [lb_av] 210.00 [lb_av] [facility] ([facility] Heart rate 87 /min 87 /min [facility] ([facility] Diastolic blood pressure 72 mm[Hg] 72 mm[Hg] [facility] ([facility] Oxygen saturation in Arterial blood by Pulse oximetry 98 % 98 % [facility] ([facility] Body temperature 96.5 [degF] 96.5 [degF] [facility] ([facility] Respiratory rate 28 /min 28 /min [facility] ( [facility] [place] body weight 105 [lb_av] 105 [lb_av] [facility] ([facility] Body mass index (BMI) [Ratio] 39.0 kg/m2 39.0 k g/m2 [facility] ([facility]hta [facility] Oxygen saturation in Arterial blood by Pulse oximetry 95 % 95 % [facility] ([facility] Body temperature 95.7 [degF] 95.7 [degF] [facility] ([facility] Systolic blood pressure 87 mm[Hg] 87 mm[Hg] M [facility] ([facility] [place] body weight 105 [lb_av] 105 [lb_av] [facility] ([facility] Body height 61.5 [in_i] 61.5 [in_i] [facility] ([facility] 5'1.50" Diastolic blood pressure 42 mm[Hg] 42 mm[Hg] [facility] ([facility] Respiratory rate 25 /min 25 /min [facility] ( [facility] Heart rate 75 /min 75 /min [facility] ([facility] Body temperature 96.9 [degF] 96.9 [degF] [facility] ([facility]) Body height 61.5 [in_i] 61.5 [in_i] [facility] ([facility]) 5'1.50" Body weight 228.00 [lb_av] 228.00 [lb_av] [facility] T ([facility]) Body mass index (BMI) [Ratio] 42.4 kg/m2 42.4 k g/m2 [facility] ([facility]) Systolic blood pressure 124 mm[Hg] 124 mm[Hg] M [facility]ENT ([facility]) Diastolic blood pressure 62 mm[Hg] 62 mm[Hg] [facility] ([facility]) Heart rate 72 /min 72 /min [facility] ([facility]) Oxygen saturation in Arterial blood by Pulse oximetry 96 % 96 % [facility] ([facility]) Body height 62 [in_i] 62 [in_i] [facility] ([facility]) 5'2" Body weight 227.00 [lb_av] 227.00 [lb_av] [facility] T ([facility]) Body mass index (BMI) [Ratio] 41.5 kg/m2 41.5 k g/m2 [facility] ([facility]) [place] body weight 110 [lb_av] 110 [lb_av] [facility] ([facility]) Body weight 102.967 kg 102.967 kg [facility] ([facility]) Body surface area Derived from formula 2.02 m2 2.02 m2 [facility] ([facility]) Body height 61.5 [in_i] 61.5 [in_i] [facility] ([facility] 5'1.50" Body weight 235.12 [lb_av] 235.12 [lb_av] [facility] ([facility] Heart rate 73 /min 73 /min [facility] ([facility] Systolic blood pressure 107 mm[Hg] 107 mm[Hg] M [facility] ([facility] Diastolic blood pressure 57 mm[Hg] 57 mm[Hg] [facility] ([facility] Respiratory rate 20 /min 20 /min [facility] ( [facility] Oxygen saturation in Arterial blood by Pulse oximetry 96 % 96 % [facility] ([facility] [place] body weight 105 [lb_av] 105 [lb_av] [facility] ([facility] Body mass index (BMI) [Ratio] 43.7 kg/m2 43.7 k g/m2 [facility] ([facility] Body temperature 97.3 [degF] 97.3 [degF] [facility] ([facility] [place] body weight 105 [lb_av] 105 [lb_av] MED[facility] [...] ([facility] 5'1.50" Diastolic blood pressure 77 mm[Hg] 77 mm[Hg] [facility] ([facility]) Body temperature 97.1 [degF] 97.1 [degF] [facility] ([facility]) Systolic blood pressure 147 mm[Hg] 147 mm[Hg] M [facility] ([facility]) Heart rate 70 /min 70 /min [facility] ([facility]) Body mass index (BMI) [Ratio] 43.9 kg/m2 43.9 k g/m2 [facility] ([facility]) [place] body weight 110 [lb_av] 110 [lb_av] [facility] ([facility]) Body weight 108.864 kg 108.864 kg [facility] ([facility]) Oxygen saturation in Arterial blood by Pulse oximetry 93 % 93 % [facility] ([facility]) Respiratory rate 18 /min 18 /min [facility] ( [facility]) Body height 62 [in_i] 62 [in_i] [facility] ([facility]) 5'2" Body weight 240.00 [lb_av] 240.00 [lb_av] [facility] ([facility]) Body surface area Derived from formula 2.07 m2 2.07 m2 [facility] ([facility]) Body temperature 97.8 [degF] 97.8 [degF] [facility] ([facility]) Respiratory rate 20 /min 20 /min [facility] ( [facility]) Body weight 240.00 [lb_av] 240.00 [lb_av] [facility] ([facility]) Oxygen saturation in Arterial blood by Pulse oximetry 100 % 100 % [facility] ([facility]) Body height 62 [in_i] 62 [in_i] [facility] 5'2[facility] Body mass index (BMI) [Ratio] 43.9 kg/m2 43.9 k g/m2 [facility] ([facility]) [place] body weight 110 [lb_av] 110 [lb_av] [facility] ([facility]) Heart rate 85 /min 85 /min [facility] ([facility]) Systolic blood pressure 126 mm[Hg] 126 mm[Hg] [facility] Diastolic blood pressure 65 mm[Hg] 65 mm[Hg] [facility] ([facility]) Body weight 108.864 kg 108.864 kg [facility] ([facility]) Body surface area Derived from formula 2.07 m2 2.07 m2 [facility] ([facility]) Systolic blood pressure 120 mm[Hg] 120 mm[Hg] [facility] Diastolic blood pressure 60 mm[Hg] 60 mm[Hg] [facility] Heart rate 93 /min 93 /min [facility] Body height 157.5 cm 157.5 cm [facility] Body weight 107.502 kg 107.502 kg [facility] Body mass index (BMI) [Ratio] 43.35 kg/m2 43.35 kg/m2 [facility] Oxygen saturation in Arterial blood by Pulse oximetry 93 % 93 % [facility] Heart rate 97 /min 97 /min [facility] ([facility]) Systolic blood pressure 130 mm[Hg] 130 mm[Hg] [facility] Diastolic blood pressure 70 mm[Hg] 70 mm[Hg] [facility] ([facility]) Oxygen saturation in Arterial blood by Pulse oximetry 94 % 94 % [facility] ([facility]) Body height 62 [in_i] 62 [in_i] [facility] ([facility]) 5'2" Body weight 240.00 [lb_av] 240.00 [lb_av] [facility] ([facility]) Body mass index (BMI) [Ratio] 43.9 kg/m2 43.9 k g/m2 [facility] ([facility]) [place] body weight 110 [lb_av] 110 [lb_av] [facility] ([facility]) Body weight 108.864 kg 108.864 kg [facility] ([facility] ) Body surface area Derived from formula 2.07 m2 2.07 m2 [facility] ([facility], ) Heart rate 74 /min 74 /min [facility] ([facility] Systolic blood pressure 119 mm[Hg] 119 mm[Hg] [facility] ([facility] [...] 95 % [facility] ([facility] [place] body weight 105 [lb_av] 105 [lb_av] [facility] ([facility] [place] body weight 105 [lb_av] 105 [lb_av] [facility] [...] 96 % [facility] ([facility] [place] body weight 105 [lb_av] 105 [lb_av] [facility] [...] Systolic blood pressure 132 mm[Hg] 132 mm[Hg] [facility] Diastolic blood pressure 60 mm[Hg] 60 mm[Hg] [facility] Heart rate 93 /min 93 /min [facility] Body height 157.5 cm 157.5 cm [facility] Body weight 113.853 kg 113.853 kg [facility] Body mass index (BMI) [Ratio] 45.91 kg/m2 45.91 kg/m2 [facility] Oxygen saturation in Arterial blood by Pulse oximetry 98 % 98 % [facility] Body temperature 97.3 [degF] 97.3 [degF] [facility] [...] 94 % [facility] ([facility] [place] body weight 105 [lb_av] 105 [lb_av] [facility] ([facility] Systolic blood pressure 108 mm[Hg] 108 mm[Hg] M [facility] ([facility] Diastolic blood pressure 77 mm[Hg] 77 mm[Hg] [facility] ([facility] Heart rate 93 /min 93 /min [facility] ([facility] Body mass [...] 95 % [facility] ([facility] [place] body weight 105 [lb_av] 105 [lb_av] [facility] T ([facility] Body mass index (BMI) [Ratio] 47.1 kg/m2 47.1 k g/m2 [facility] ([facility] Body height 61.5 [in_i] 61.5 [in_i] [facility] ([facility] 5'1.50" Body weight 253.38 [lb_av] 253.38 [lb_av] [facility] T ([facility] Respiratory rate 26 /min 26 /min [facility] ( [facility] Diastolic blood pressure 53 mm[Hg] 53 mm[Hg] [facility] ([facility] Heart rate 70 /min 70 /min [facility] ([facility] Body temperature 97.3 [degF] 97.3 [degF] [facility] ([facility] Respiratory rate 22 /min 22 /min [facility] ( [facility] Oxygen saturation in Arterial blood by Pulse oximetry 94 % 94 % [facility] ([facility] on room air [place] body weight 105 [lb_av] 105 [lb_av] MEDEN [...] 95 % [facility] ([facility] [place] body weight 105 [lb_av] 105 [lb_av] [facility] T ([facility] Patient Treatment Plan of Care Planned Activity Planned Date Details Description Data Source (s) torsemide 20 MG Oral Tablet 01/12/2020 12:00:00 AM EST [facility] Metformin hydrochloride 500 MG Oral Tablet 01/11/2020 12:00:00 AM E [facility] Bacitracin 0.5 UNT/MG / Neomycin 0.0035 MG/MG / Polymyxin B 10 UNT/MG Topical Ointment 12/27/2019 12:00:00 AM EST [facility] Albuterol 0.833 MG/ML / Ipratropium [place] 0.167 MG/M L Inhalant Solution 12/27/2019 12:00:00 AM EST [facility] Fluconazole 100 MG Oral Tablet 12/08/2019 12:00:00 AM EDT [facility] Prednisone 5 MG Oral Tablet 06/25/2019 12:00:00 AM EDT [facility] potassium chloride SA (K-DUR,KLOR-CON) 20 MEQ tablet 020 12:00:00 AM EDT [facility] Furosemide 40 MG Oral Tablet 06/11/2019 12:00:00 AM EDT [facility] tizanidine 4 MG Oral Tablet [facility] 60 ACTUAT Fluticasone propionate 0.5 MG/ ACTUAT / salmeterol 0.05 MG/ACTUAT Dry Powder Inhaler [facility]
[2021-01-26] MEDS ORDERED: cefTRIAXone SOD 2 GM in D5W MINI-BAG PLUS 50 ML IV ONE (20:40)
[2021-01-26] MEDS ORDERED: XARE15TA PO (21:44)
[2021-01-26] MEDS ORDERED: TORS20TA2 PO (21:44)
[2021-01-26] MEDS ORDERED: MAGN400T33 PO (21:44)
[2021-01-26] MEDS ORDERED: NYST10CR TOP (21:46)
[2021-01-26] MEDS ORDERED: PERCOCET PO (21:46)
[2021-01-26] MEDS ORDERED: HOME MED LIST COMPLETE! XX SCH (21:50)
[2021-01-26] MEDS ORDERED: ACETAMINOPHEN TAB 650MG DOSE (2X325MG) PO PRN (22:30)
--- OUTSIDE RECORDS SUMMARY | 2021-01-26 22:53 | CCD ---
Author Author [facility] Organization [facility] Address Unknown Phone Unavailable Care Team Providers Care Construction Technology Instructor Name Role Phone Dusty Monika Noland [facility], PA-C Unavailable Unavailabl e FishNatoe [facility], [facility]-C Unavailable [facility], PA-C Unavailable Unavailabl e Fish Monika [facility], PA-C Unavailable Unavailabl e Fish Monika [facility], PA-C Unavailable Unavailabl e Fish Monika [facility], PA-C Unavailable Unavailabl e Fish Monika [facility], PA-C Unavailable Unavailabl e Fish, Monika [facility], PA-C Unavailable Unavailabl e Fish, Monika [facility], PA-C Unavailable Unavailabl e Fish Monika [facility], PA-C Unavailable Unavailabl e Fish Monika [facility], PA-C Unavailable Unavailabl e Fish, [facility], PA-C Unavailable Unavailabl e Fish, [facility], PA-C Unavailable Unavailabl e Fish, [facility], PA-C Unavailable Unavailabl e Fish, [facility], PA-C Unavailable Unavailabl e Fish, [facility], PA-C Unavailable Unavailabl e Fish, [facility], PA-C Unavailable Unavailabl e Fish, [facility], PA-C Unavailable Unavailabl e Fish, [facility], PA-C Unavailable Unavailabl e Fish, [facility], PA-C Unavailable Unavailabl e Fish, [facility], PA-C Unavailable Unavailabl e Fish, [facility], PA-C Unavailable Unavailabl e Fish, [facility], PA-C Unavailable Unavailabl e Fish, [facility], PA-C Unavailable Unavailabl e Fish, [facility], PA-C Unavailable Unavailabl e Fish, [facility], PA-C Unavailable Unavailabl e Fish, [facility], PA-C Unavailable Unavailabl e Fish, [facility], PA-C Unavailable Unavailabl e Fish, [facility], PA-C Unavailable Unavailabl e Fish, [facility], PA-C Unavailable Unavailabl e Fish, [facility], PA-C Unavailable Unavailabl e Fish, [facility], PA-C Unavailable Unavailabl e Fish, [facility], PA-C Unavailable Unavailabl e Fish, [facility], PA-C Unavailable Unavailabl e Fish, [facility], PA-C Unavailable Unavailabl e Fish, [facility], PA-C Unavailable Unavailabl e NAVEEN JACKSON [...] MD LENNY FALCON Unavailable Unavailable Pleskach, Criselda CHICKEN BONER Unavailable Unavailable Pleskach, Criselda CHICKEN BONER Unavailable Unavailable Pleskach, Criselda CHICKEN BONER Unavailable Unavailable Pleskach, Criselda CHICKEN BONER Unavailable Unavailable Pleskach, Criselda CHICKEN BONER Unavailable Unavailable Pleskach, Criselda CHICKEN BONER Unavailable Unavailable Pleskach, Criselda CHICKEN BONER Unavailable Unavailable Pleskach, Criselda CHICKEN BONER Unavailable Unavailable Pleskach, Criselda CHICKEN BONER Unavailable Unavailable Pleskach, Criselda CHICKEN BONER Unavailable Unavailable Pleskach, Criselda CHICKEN BONER Unavailable Unavailable Pleskach, Criselda CHICKEN BONER Unavailable Unavailable Pleskach, Criselda CHICKEN BONER Unavailable Unavailable Pleskach, Criselda CHICKEN BONER Unavailable Unavailable Pleskach, Criselda CHICKEN BONER Unavailable Unavailable Pleskach, Criselda CHICKEN BONER Unavailable Unavailable Pleskach, Criselda CHICKEN BONER Unavailable Unavailable Pleskach, Criselda CHICKEN BONER Unavailable Unavailable Pleskach, Criselda CHICKEN BONER Unavailable Unavailable Pleskach, Criselda CHICKEN BONER Unavailable Unavailable Pleskach, Criselda CHICKEN BONER Unavailable Unavailable Pleskach, Criselda CHICKEN BONER Unavailable Unavailable Pleskach, Criselda CHICKEN BONER Unavailable Unavailable Pleskach, Criselda CHICKEN BONER Unavailable Unavailable Pleskach, Criselda CHICKEN BONER Unavailable Unavailable Pleskach, Criselda CHICKEN BONER Unavailable Unavailable Pleskach, Criselda CHICKEN BONER Unavailable Unavailable Pleskach, Criselda CHICKEN BONER Unavailable Unavailable Pleskach, Criselda CHICKEN BONER Unavailable Unavailable Pleskach, Criselda CHICKEN BONER Unavailable Unavailable Pleskach, Criselda CHICKEN BONER Unavailable Unavailable Pleskach, Criselda CHICKEN BONER Unavailable Unavailable Pleskach, Criselda CHICKEN BONER Unavailable Unavailable Pleskach, Criselda CHICKEN BONER Unavailable Unavailable Pleskach, Criselda CHICKEN BONER Unavailable Unavailable Pleskach, Criselda CHICKEN BONER Unavailable Unavailable Pleskach, Criselda CHICKEN BONER Unavailable Unavailable Pleskach, Criselda CHICKEN BONER Unavailable Unavailable Pleskach, Criselda CHICKEN BONER Unavailable Unavailable Pleskach, Criselda CHICKEN BONER Unavailable Unavailable Pleskach, Criselda CHICKEN BONER Unavailable Unavailable Pleskach, Criselda CHICKEN BONER Unavailable Unavailable Pleskach, Criselda CHICKEN BONER Unavailable Unavailable Pleskach, Criselda CHICKEN BONER Unavailable Unavailable Km Kathleen MD Unavailable Unavailable [...] Vaneenenaam, Hazel Mcfarland MD Unavailable Unavailable Vaneenenaam, Haezl Mcfarland MD Unavailable Unavailable Vaneenenaam, Hazel Mcfarland MD Unavailable Unavailable Vaneenenaam, Hazel Mcfarland MD Unavailable Unavailable Vaneenenaam, Hazel Mcfarland MD Unavailable Unavailable Vaneenenaam, Hazel Mcfarland MD Unavailable Unavailable Vaneenenaam, Hazel Mcfarland MD Unavailable Unavailable Vaneenenaam, Hazel Mcfarland MD Unavailable Unavailable Vaneenenaam, Hazel Mcfarland MD Unavailable Unavailable Vaneenenaam, Hazel Mcfarland MD Unavailable Unavailable Vaneenenaam, Hazel Mcfarland MD Unavailable Unavailable Vaneenenaam, Hzael Mcfarland MD Unavailable Unavailable Vaneenenaam, Hazle Mcfarland [...] is protected by Article 27-F of the [employer] [facility] [employer] Public Health law. If you continue you may have access to information: Regarding HIV / AIDS; Provided by facilities licensed or operated by the [facility] Office of Mental Health; or Provided by the [facility] Office for People With Developmental Disabilities. If such information is present, then the following [facility] mandated warning applies: This information has been [...] may result in a fine or senior living sentence or both. A general authorization for [...] Unknown Problem [facility] ([facility]) Unknown Male Problem [facility] ([facility] Encounters Encounter Providers Location Date Indications Data Source(s ) Outpatient Attender: Criselda Herrera [facility] Main Office 01/25/2021 1 0:45:00 AM EST [facility] ([facility] Outpatient [facility].CT-S[facility] 01/15/2021 09:26:15 AM EST [facility] Outpatient Attender: Criselda Herrera [facility] Main Office 10/11/2020 0 2:00:00 PM EDT [facility] 10/03/2020 01:58:55 PM EDT [facility] OFFICE OUTPATIENT VISIT 15 MINUTES Attender: Hazel aguila MD Physical Therapy 08/22/2020 10:15:00 AM EDT [facility] ([facility]) Outpatient Attender: Km Bolanos/Vipul/Alex/Chauncey ndamauri 08/15/2020 11:00:00 AM EDT [facility] ([facility] Office Visit Attender: Nuzhat QUEZADA PA-C Physical Therapy 08/08/2020 03:45:00 PM EDT [facility] ([facility]) Outpatient Attender: Nuzhat QUEZADA PA-C Physical Therapy 08/07/2020 01:30:00 PM EDT [facility] ([facility]) Outpatient Attender: Criselda Herrera [facility] Main Office 07/31/2020 1 1:00:00 AM EDT [facility] ([facility] Outpatient Attender: Criselda Herrera [facility] Main Office 07/12/2020 0 2:00:00 PM EDT [facility] ([facility] Outpatient [facility]-SJ 06/24/2020 04:06:08 PM EDT [facility] Outpatient [facility].ZAIDA-SJP.[facility] 06/22/2020 01:43:06 PM EDT [facility] Outpatient Attender: Km Hyman/Vipul/Alex/Rein dl 06/21/2020 01:30:00 PM EDT [facility] ([facility]) Outpatient Attender: Edgar Hyman/Vipul/Alex/Re indl 06/02/2020 01:15:00 PM EDT [facility] ([facility]) Outpatient Attender: NAVEEN JACKSON MD [facility].ZAIDA-SJP.ZAIDA 01:50:15 PM EDT - 05/26/2020 02:22:58 PM EDT [facility] Outpatient Attender: Jeffy DIANA Physical Therapy 01:00:00 PM EDT [facility] ([facility]) Outpatient Attender: mK Bolanos/Vipul/Alex/Chauncey ndl 05/02/2020 10:00:00 AM EDT [facility] ([facility]) Outpatient Attender: Km Bolanos/Vipul/Alex/Chauncey ndl 04/12/2020 09:00:00 AM EST [facility] ([facility] Outpatient Attender: Criselda Herrera [facility] Main Office 04/10/2020 0 8:00:00 AM EST [facility] ([facility] Office Visit Attender: Jeffy DIANA Physical Therapy 12:00:00 PM EST [facility] ([facility]) Outpatient Attender: Criselda Herrera [facility] Main Office 03/22/2020 0 2:15:00 PM EST [facility] ([facility] Office Visit Attender: Jeffy DIANA Physical Therapy 12:45:00 PM EST [facility] ([facility]) Outpatient Attender: Km Bolanos/[place]el[place]/Alex/Chauncey [facility] 02/14/2020 07:30:00 AM EST [facility] ([facility] Outpatient Attender: Criselda Herrera [facility] Main Office 01/31/2020 1 0:45:00 AM EST [facility] ([facility] Outpatient Attender: Criselda Herrera [facility] Main Office 01/19/2020 0 1:00:00 PM EST [facility] ([facility] Outpatient Attender: NAVEEN JACKSON MD [facility].ZAIDA 0 12:00:00 AM EST - 01/19/2020 04:09:59 PM EST [facility] Outpatient Attender: Criselda Herrera [facility] Main Office 01/11/2020 0 2:45:00 PM EST [facility] ([facility] Outpatient Attender: Km Bolanos/[place]el[place]/Alex/Chanucey [facility] 12/21/2019 07:30:00 AM EST [facility] ([facility] Outpatient Attender: Criselda Herrera [facility] Main Office 12/16/2019 0 1:15:00 PM EDT [facility] ([facility] Outpatient Attender: Criselda Herrera [facility] Main Office 12/02/2019 0 4:00:00 PM EDT [facility] ([facility] Inpatient Attender: MD EILEEN Tom uri: MD HAFSA Barronender: MD LENNY Negron: RAD[facility] LENNY FALCON [facility]-[id number] 07/30/2019 07:36:00 PM EDT [facility] Immunizations Vaccine Date Status Description Data Source(s) New in 2012. IIV4 01/25/2021 12:17:00 PM EST completed [facility] ([facility] Moderna Sars-(Covid-19) vaccine, mRNA, LNP-S, PF, 100 mcg/ 0.5 mL 05/24/2020 12:00:00 AM EDT completed [facility] ([facility] COVID-19 VACCINE Moderna 05/24/2020 12:00:00 AM EDT completed [facility] Vaccine Series Complete: YESThis Data wa s Submitted to [facility] Via Doctor[facility]com. COVID-19 VACCINE Moderna 04/19/2020 12:00:00 AM EST completed [facility] Vaccine Series Complete: NOThis Data was Submitted to [facility] Via Doctor[employer]. Moderna Sars-(Covid-19) vaccine, mRNA, LNP-S, PF, 100 [...] active [facility] ([facility] Nystatin [id number] UNT/ML Topical Cream Nystatin 01/24/2021 12:00:00 AM [...] by mouth 2 (two) times a day [facility] Metformin hydrochloride 500 MG Oral Tablet metFORMIN ( GLUCOPHAGE) 500 MG tablet metFORMIN (GLUCOPHAGE) 500 MG tablet 01/11/2020 12:00:00 AM EST active [facility] Bacitracin 0.5 UNT/MG / Neomycin 0.0035 MG/MG / Polymyxin B 10 UNT/MG Topical Ointment Ieugpbdv-Azjjqekxfw-Earpexlnb (FIRST AID ANTIBIOTIC) 3.5-400-5000 MG- UNIT OINT Cujdrqek-Ozzkwpldza-Ynblqyzgq (FIRST AID ANTIBIOTIC) 3.5-400-5000 MG- UNIT OINT 12/27/2019 12:00:00 AM EST active [facility] Albuterol 0.833 MG/ML / Ipratropium Brom danial 0.167 MG/ML Inhalant Solution ipratropium-albuterol (DUO-NEB) 0.5-2.5 mg/mL nebulizer ipratropium-albuterol (DUO-NEB) 0.5-2.5 mg/mL nebulizer 12/27/2019 12:00:00 AM EST active [facility] Metolazone 2.5 MG Oral Tablet Metolazone 12/08/2019 12:00:00 AM EDT ORAL active [facility] ([facility] torsemide 20 MG Oral Tablet Torsemide 12/08/2019 12:00:00 AM EDT active [facility] ([facility] Fluconazole 100 MG Oral Tablet fluconazole (DIFLUCAN) 100 MG tablet fluconazole (DIFLUCAN) 100 MG tablet 12/08/2019 12:00:00 AM EDT aborted [facility] torsemide 10 MG Oral Tablet Torsemide [...] P.C.) Docusate Sodium 50 MG / sennosides, RETIREMENT 8.6 MG Oral Ta blet Senna-Docusate Sodium [...] tablet (5 mg total) by mouth daily [facility] Chronic bronchitis, unspecified chronic bronchitis type potassium chloride SA (K-DUR,KLOR-CON) 20 MEQ tablet [id number] 06/25/2019 12:00:00 AM EDT aborted [facility] Furosemide 40 MG Oral Tablet furosemide (LASIX) 40 MG tablet furosemide (LASIX) 40 MG tablet 06/11/2019 12:00:00 AM EDT 40 mg Oral abort ed Take 1 tablet (40 mg total) by mouth 2 (two) times a day [facility] tizanidine 4 MG Oral Tablet tiZANidine (ZANAFLEX) 4 MG tablet tiZANidine (ZANAFLEX) 4 MG tablet 4 mg Oral aborted Take 4 mg by mouth every 6 (six) hours as needed [facility] 60 ACTUAT Fluticasone propionate 0.5 MG/ ACTUAT / salmeterol 0.05 MG/ACTUAT Dry Powder Inhaler fluticasone-salmeterol (ADVAIR) 500-50 MCG/DOSE DISKUS fluticasone-salmeterol (ADVAIR) 500-50 MCG/DOSE DISKUS 1 {puff} Inhalation aborted Inhale 1 puff 2 (two) amy es a day [facility] Insurance Providers Payer name Policy type / Coverage type Policy ID Covered libertarian ID Covered libertarian's relationship to sellers Policy Sellers Plan Information [facility] 121/621 [id number] [facility] [id number] SP [id number] MEDICARE [id number] SP [id number] MEDICARE [id number] Susanna [id number] [id number] MEDICARE [id number] Susanna [id number] A MEDICARE [id number] SP [id number] A MEDICARE A [id number] Self [id number] [id number] MEDICARE [id number] xxxxxxxxxxx [id number] MEDICARE A [id number] Self [id number] A FOR LIFE [id number] FOR LIFE [id number] FOR LIFE U [id number] Self [id number] Spo [id number] xxxxxxxxxxx [id number] FOR LIFE U [id number] Self [id number] FIDELIS MEDICARE [id number] Susanna 7 [id number] For Life Medigap Part B [id number] [id number] Family Dependent [id number] [place] Primary [id number] 2.0.1.008066.3.227.99.2809.31901.0 Self [id number] For Life Reg 1 Medigap Part B [id number] 2.0.1.027292.3.227.99.177.54841.0 Family Dependent 1 [id number] Medicare - NGS Medicare Primary [id number] 2..1.932774.3.227.99.177.01101.0 Self [id number] For Life Medigap Part B [id number] 2..1.182417.3.227.99.2809.54372.0 Family Dependent [id number] Medicare [place] Medicare Primary [id number] 2..1.369246.3.227.99.2809.14332.0 Self [id number] For Life Reg 1 Medigap Part B [id number] 20.1.892492.3.227.99.177.42047.0 Family Dependent 1 [id number] Medicare - NGS Medicare Primary [id number] 2.0.1.284796.3.227.99.177.40428.0 Self [id number] MEDICARE C UNAVAILABLE [id number] S UNAVAILA BLE MEDICARE C [id number] S [id number] A FOR LIFE [id number] [facility] [id number] For Life Reg 1 Medigap Part B [id number] 20.1.793129.3.227.99.177.96886.0 Family Dependent 1 [id number] Medicare - NGS Medicare Primary [id number] 2.1.057087.3.227.99.177.72921.0 Self [id number] [place] MEDICARE PART B C [id number] S [id number] For Life Medigap Part B [id number] 2.0.1.389895.3.227.99.2809.76681.0 Family Dependent [id number] Medicare [place] Medicare Primary [id number] 2.0.1.590136.3.227.99.2809.94391.0 Self [id number] For Life Medigap Part B [id number] 2.0.1.668196.3.227.99.2809.02126.0 Family Dependent [id number] Medicare [place] Medicare Primary [id number] 2.0.1.001450.3.227.99.2809.24630.0 Self [id number] For Life Medigap Part B [id number] 2.0.1.574720.3.227.99.2809.87864.0 Family Dependent [id number] Medicare [place] Medicare Primary [id number] 2.0.1.377788.3.227.99.2809.17770.0 Self [id number] PI PI MEDICARE PI PI [id number] Spo [id number] For Life Medigap Part B [id number] 2.0.1.087110.3.227.99.2809.84735.0 Family Dependent [id number] Medicare [place] Medicare Primary [id number] 2.0.1.155937.3.227.99.2809.21501.0 Self [id number] For Life Reg 1 Medigap Part B [id number] 2.0.1.110844.3.227.99.177.38057.0 Family Dependent 1 [id number] Medicare - NGS Medicare Primary [id number] 2.0.1.804138.3.227.99.177.20231.0 Self 0 [id number] For Life - WPS Medigap Part B [id number] 2.16.840.1.209746.3.227.99.572.75654.0 Self [id number] Medicare (Part A) Medicare Primary [id number] 2.16.840.1.002540.3.227.99.572.68607.0 Self [id number] Medicare (Part B) Medicare Primary [id number] 2.16.840.1.681958.3.227.99.572.90879.0 Self 0 [id number] For Life Medigap Part B [id number] 2.16.840.1.809698.3.227.99.2809.92041.0 Family Dependent [id number] Medicare [place] Medicare Primary [id number] 2.16.840.1.416389.3.227.99.2809.14160.0 Self [id number] For Life - WPS Medigap Part B [id number] 2.16.840.1.673556.3.227.99.572.30392.0 Self [id number] Medicare (Part A) Medicare Primary [id number] 2.16.840.1.590932.3.227.99.572.22417.0 Self 0 [id number] Medicare (Part B) Medicare Primary [id number] 2.16.840.1.804281.3.227.99.572.06013.0 Self 0 [id number] For Life Medigap Part B [id number] 2.16.840.1.087706.3.227.99.2809.32822.0 Family Dependent [id number] Medicare [place] Medicare Primary [id number] 2.16.840.1.628834.3.227.99.2809.49920.[id number] [facility], [facility] C [id number] S [id number] For Life Medigap Part B [id number] 2.16.840.1.861631.3.227.99.2809.94339.0 Family Dependent [id number] Medicare Up[place] Medicare Primary [id number] 2.0.1.658250.3.227.99.2809.86126.0 Self [id number] For Life Medigap Part B [id number] 2.0.1.737828.3.227.99.2809.95373.0 Family Dependent [id number] Medicare [place] Medicare Primary [id number] 2.0.1.330475.3.227.99.2809.64593.0 Self [id number] For Life Medigap Part B [id number] 2.0.1.581838.3.227.99.2809.50169.0 Family Dependent [id number] Medicare Up[place] Medicare Primary [id number] 04.04.830.1.492778.3.227.99.2809.68084.0 Self [id number] For Life WPS Medigap Part B [id number] .1.931884.3.227.99.1767.74711.0 Self [id number] Medicare Natl Gov't Servi Medicare Primary [id number] .[id number]88.0 Self [id number] For Life Medigap Part B [id number] 20.1.685095.3.227.99.2809.97103.0 Family Dependent [id number] Medicare Upstate Medicare Primary [id number] 20.1.149092.3.227.99.2809.65297.0 Self [id number] FOR LIFE [id number] SP [id number] For Life Medigap Part B [id number] Family Dependent Medicare [place] Medicare Primary [id number] Self FOR LIFE [id number] SP [id number] FOR LIFE [id number] SP [id number] MEDICARE [id number] SP [id number] A RETIREE MEDICAL INSURANCE PLAN [id number] SP [id number] A [facility] MEDICAID [id number] SP [id number] Y [id number] [facility] MEDICAID [id number] SP [id number] SELF PAY ONLY [id number] SP [id number] MEDICARE C [id number] S [id number] FOR LIFE O [id number] S [id number] SELF PAY [facility] [id number] [facility] [id number] [facility] O [id number] S [id number] For Life Medigap Part B [id number] Family Dependent [id number] Medicare [place] Medicare Primary [id number] Self [id number] For Life Medigap Part B [id number] Family Dependent [id number] Medicare [place] Medicare Primary [id number] Self [id number] For Life Reg 1 Medigap Part B [id number] .[id number] Family Dependent 1 [id number] Medicare - NGS Medicare Primary [id number] .[id number]8.0 Self [id number] For Life Medigap Part B [id number] .[id number] Family Dependent [id number] Medicare [place] Medicare Primary [id number] Self [id number] Problems, Conditions, and Diagnoses Code Display Name Description Problem Type Effective Dates Data Source(s) R91.8 Abnormal findings on diagnostic imaging of lung Abnormal findings on diagnostic imaging of lung Problem 05/02/2020 12:00:00 AM EDT [facility] ([facility], ) E11.69 Type 2 diabetes mellitus in [...] extremities Pain in both lower extr emities [id number] 01/19/2020 12:00:00 AM EST [facility] G47.33 Obstructive sleep apnea syndrome Obstructive sle ep apnea syndrome Problem 12/21/2019 12:00:00 AM EST [facility] ([facility], ) Surgeries/Procedures Procedure Description Date Indications Data Source(s) OFFICE OUTPATIENT VISIT 15 MINUTES 01/25/2021 12:00:00 AM EST [facility] Chronic Care Management Services Ea Addl 20 Min 2020 12:00:00 AM EST [facility] ([facility] Chronic Care MGMT 20 Mins Clinical Staff Time Per Calendar [facility] 01/10/2021 12:00:00 AM EST [facility] Chronic Care Management Services Ea Addl 20 Min 2020 12:00:00 AM EDT [facility] ([facility] Chronic Care MGMT 20 Mins Clinical Staff Time Per Calendar [facility] 11/29/2020 12:00:00 AM EDT [facility] ([facility] Chronic Care MGMT 20 Mins Clinical Staff Time Per Calendar [facility] 10/30/2020 12:00:00 AM EDT [facility] ([facility] OFFICE OUTPATIENT VISIT 25 MINUTES 10/11/2020 12:00:00 AM EDT [facility] ([facility] Chronic Care MGMT 20 Mins Clinical Staff Time Per Calendar [facility] 10/03/2020 12:00:00 AM EDT [facility] ([facility] Chronic Care MGMT 20 Mins Clinical Staff Time Per Calendar [facility] 08/30/2020 12:00:00 AM EDT [facility] ([facility] OFFICE OUTPATIENT VISIT 15 MINUTES 08/22/2020 12:00:00 AM EDT [facility] ([facility]) Spirometry 08/15/2020 12:00:00 AM EDT M EDENT ([facility], ) OFFICE OUTPATIENT VISIT 25 MINUTES 08/15/2020 12:00:00 AM EDT [facility] ([facility], ) PHYSICIAN TELEPHONE EVALUATION 11-20 MIN 08/08/2020 12 :00:00 AM EDT [facility] ([facility]) OFFICE OUTPATIENT VISIT 25 MINUTES 08/07/2020 12:00:00 AM EDT [facility] ([facility]) OFFICE OUTPATIENT VISIT 25 MINUTES 07/31/2020 12:00:00 AM EDT [facility] ([facility] Chronic Care MGMT 20 Mins Clinical Staff Time Per Calendar [facility] 07/27/2020 12:00:00 AM EDT [facility] ([facility] Chronic Care Management Services Ea Addl 20 Min 2020 12:00:00 AM EDT [facility] ([facility] Chronic Care MGMT 20 Mins Clinical Staff Time Per Calendar [facility] 07/13/2020 12:00:00 AM EDT [facility] ([facility] Diabetic Foot Exam 07/12/2020 12:00:00 AM EDT [facility] ([facility] OFFICE OUTPATIENT VISIT 25 MINUTES 07/12/2020 12:00:00 AM EDT [facility] ([facility] OFFICE OUTPATIENT VISIT 25 MINUTES 06/21/2020 12:00:00 AM EDT [facility] ([place] [facility] Management Services Ea Addl 20 Min 2020 12:00:00 AM EDT [facility] ([facility] Chronic Care MGMT 20 Mins Clinical Staff Time Per Calendar M [facility] 06/15/2020 12:00:00 AM EDT [facility] ([facility] OFFICE OUTPATIENT NEW 45 MINUTES 06/02/2020 12:00:00 A M EDT [facility] ([facility], ) Chronic Care Management Services Ea Addl 20 Min 2020 12:00:00 AM EDT [facility] Chronic Care MGMT 20 Mins Clinical Staff Time Per Calendar M onth 05/04/2020 12:00:00 AM EDT [facility] ([facility] X-Ray Hip Unilateral With Pelvis 2-3 Views 05/03/2020 12:00:00 AM EDT [facility] ([facility]) OFFICE OUTPATIENT VISIT 25 MINUTES 05/03/2020 12:00:00 AM EDT [facility] ([facility]) OFFICE OUTPATIENT VISIT 15 MINUTES 05/02/2020 12:00:00 AM EDT [facility] ([facility]) OFFICE OUTPATIENT VISIT 15 MINUTES 04/12/2020 12:00:00 AM EST [facility] ([facility]) ARTHROCENTESIS ASPIR&/INJECTION MAJOR JT/BURSA 021 12:00:00 AM EST [facility] ([facility]) Mammogram 01/26/2020 12:00:00 AM EST M EDDARLENE ([facility] ECG ROUTINE ECG W/LEAST 12 LDS W/I&R <td>POCT AMB EKG</td><td>Routine</td><td>01/19/2020 5:19 PM EST</td><td> Atrial flutter, unspecified type</td><td> </td> 01/19/2020 10:19:00 PM EST Atrial flutter, unspecified type [facility] Atrial flutter, unspecified type BLOOD COUNT COMPLETE AUTO&AUTO DIFRNTL WBC COUNT <td>C BC AND DIFFERENTIAL</td><td>Routine</td><td>12/08/2019</td><td></td><td> </td> 12/08/2019 12:00:00 AM EDT [facility] BASIC METABOLIC PANEL CALCIUM TOTAL <td>BASIC METABOLI C PANEL</td><td>Routine</td><td>12/08/2019</td><td></td><td> </td> 12/08/2019 12:00:00 AM EDT [facility] Results ID Date Data Source [id number] 01/21/2021 07:21:00 PM EST [facility] ([facility]uzhat Langley [...] result [facility] ([facility] Specific [place] Ur Auto RFX 1.006 1.002-1.035 [facility] (Nuzhat [...] Ur Auto RFX Laboratory test result [facility] ([facility] WBC, Urine Auto RFX [...] [facility] ID Date Data Source [id number] 01/21/2021 07:21:00 PM EST [facility] ([facility] Name Value Range Interpretation Code Description Data Luz rce(s) Supporting Document(s) Reflex Urine Culture Laboratory test result [facility] ([facility] FULL REPORT IN LAB NOTES (eCW and [facility] ). NO GROWTH ID Date Data Source [id number] 01/21/2021 06:46:00 PM EST [facility] ([facility]uzhat Langley [...] at that time. ID Date Data Source [id number] 01/21/2021 06:46:00 PM EST [facility] ([facility] Name Value Range Interpretation Code Description Data Luz rce(s) Supporting Document(s) C reactive protein [Mass/volume] in Serum or Plasma by High sensitivity method 3.23 mg/dL 0.00-0.30 [facility] ([facility] ID Date Data Source [id number] 01/21/2021 06:46:00 PM EST [facility] ([facility]hat Langle[facility] [...] GFR Left</content>
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
<content></content> Potassium Serum 4.4 meq/L 3.5-5.1 [facility] [...] [facility] ID Date Data Source [id number] 01/21/2021 06:46:00 PM EST [facility] ([facility] Name Value Range Interpretation Code Description Data Luz rce(s) Supporting Document(s) Ast/Sgot 7 U/L 7-37 [facility] ([facility] Bilirubin,Total 0.7 mg/dL 0.2-1.0 [facility] ([facility] Alt/SGPT 8 U/L 12-78 [facility] ([facility] Alkaline Phosphatase 69 U/L 45-117 [facility] ([facility] Bilirubin,Direct 0.2 mg/dL 0.0-0.2 [facility] ([facility] Total Protein 5.5 GM/DL 6.4-8.2 [facility] ([facility] Albumin 3.0 GM/DL 3.2-5.2 [facility] ([facility] Albumin/Globulin Ratio 1.2 1.2-2.2 [facility] ([facility] ID Date Data Source [id number] 01/21/2021 06:46:00 PM EST [facility] ([facility] Name Value Range Interpretation Code Description Data Luz rce(s) Supporting Document(s) Erythrocyte sedimentation rate by 2H Westergren method 28 mm/hr 0-3 0 [facility] ([facility] ID Date Data Source [id number] 01/21/2021 06:46:00 PM EST [facility] ([facility]hat Langley [...] % 24.0-44.0 [facility] ([facility] [place] % 9.5 % 2.0-8.0 [facility] (Nuzhat rivera [...] 10 1.5-5.0 [facility] ([facility] [place] # 0.6 10 0.0-0.8 [facility] ([facility] Eos # 0.3 10 0.0-0.5 [facility] ([facility] Baso # 0.0 10 0.0-0.2 [facility] ([facility] ID Date Data Source [id number] 01/21/2021 06:46:00 PM EST [facility] ([facility] Name Value Range Interpretation Code Description Data Luz rce(s) Supporting Document(s) Lactate [Mass/volume] in Serum or Plasma 1.5 mmol/L 0.4-2.0 [facility] ([facility] Y/N query for Sepsis Lactate Rule: Y ID Date Data Source [id number] 10/18/2020 04:26:00 PM EDT [facility] (Nuzhat Langley [...] AFTER 5 DAYS ID Date Data Source [id number] 10/18/2020 04:07:00 PM EDT [facility] (Nuzhat Langley [...] pathogens. DISCLAIMER: Testing was performed using the [facility] SARS-CoV-2 test. This test was developed and its performance characteristics determined by [facility]. This test has not been FDA cleared [...] patient management decisions. ID Date Data Source [id number] 10/18/2020 04:07:00 PM EDT [facility] (Nuzhat Langley [...] AFTER 5 DAYS ID Date Data Source [id number] 10/18/2020 04:07:00 PM EDT [facility] Name Value Range Interpretation Code Description Data [facility] rce(s) Supporting Document(s) SARS coronavirus 2 RNA [Presence] in Res piratory specimen by TEO with probe detection NEGATIVE [facility] This lab was ordered by [facility] a nd reported by [facility]. ID Date Data Source [id number] 10/18/2020 01:47:00 PM EDT [facility] ([facility] Name Value Range Interpretation Code Description [facility](s) Red Blood Count [...] % 36.0-66.0 [facility] ([facility] [place] % 7.5 % 2.0-8.0 [facility] ([facility] Eos % 3.8 % 0.0-3.0 [facility] ([facility] Baso % 0.4 % 0.0-1.0 [facility] ([facility] Immature Granulocyte % 0.8 % 0-3.0 [facility] ([facility] Nucleated Red Blood Cell % 0.0 % 0-0 [facility] ([facility] Neutrophils # 4.0 10 1.5-8.5 [facility] ([facility] [place] # 0.4 10 0.0-0.8 [facility] ([facility] Lymph # 0.7 10 1.5-5.0 [facility] ([facility] Baso # 0.0 10 0.0-0.2 [facility] ([facility] Eos # 0.2 10 0.0-0.5 [facility] ([facility] ID Date Data Source [id number] 10/18/2020 01:47:00 PM EDT [facility] ([facility]uzhat Langley [...] <content>Troponin I Reference Interval f or Siemens [place] LOCI:</content>
<content></content>
<content>99th Percentile= 0.00-0.045 ng/ml</content>
<content></content>
<content>Risk Stratification:</content>
<content><= 0.10 ng/ml Decreased Risk for Adverse Clinical</content>
<content>Events.</content>
<content>0.10-1.50 ng/ml Increased Risk for Adverse Clinical</content>
<content>Events. Evaluation of additional</content>
<content>criterion and/or repeat testing in 2-6</content>
<content>hours is suggested to rule out myocardial</content>
<content>damage.</content>
<content>>= 1.50 ng/ml Indicative of Myocardial Injury.</content>
<content></content> ID Date Data Source [id number] 10/18/2020 01:47:00 PM EDT [facility] (Nuzhat Langley [...] GFR Left</content>
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
<content></content> Creatinine For GFR 1.34 mg/dL 0.55-1.30 [...] [facility] ID Date Data Source [id number] 10/18/2020 01:47:00 PM EDT [facility] ([facility]uzhat Langley [...] [facility] ID Date Data Source [id number] 10/11/2020 03:31:00 PM EDT [facility] ([facility] Name Value Range Interpretation Code Description Data Luz rce(s) Supporting Document(s) Creatinine, Urine 52.4 mg/dL [facility] ([facility] Malb Urine Siemens 9.0 mg/L [facility] ([facility] Moose/Creat Ratio 17.1 MCG/MG 0.0-30.0 [facility] ([facility] THE [employer] STATES THAT MICROALBUMINURIA IS PRESENT IF THE MICROALBUMIN/CREATININE RATIO EXCEEDS 30 MCG/MG. THE THRESHOLD FOR CLINICAL ALBUMINURIA IS REACHED AT 300 MCG/MG. THE CLASSIFICATION OF A PATIENT SHOULD BE BASED UPON AT LEAST 2 OF 3 ABNORMAL RESULTS ON SPECIMENS COLLECTED WITHIN A 3 TO 6 MONTH TIME FRAME. ID Date Data Source [id number] 10/11/2020 03:31:00 PM EDT [facility] ([facility]uzhat Langley [...] [facility] ID Date Data Source [id number] 10/11/2020 03:31:00 PM EDT [facility] ([facility] Name Value Range Interpretation Code Description Data Luz rce(s) Supporting Document(s) Hemoglobin A1c/Hemoglobin.total in Blood 5.9 % [facility] ([facility] <content>REFERENCE RANGES:</content><br/ ><content></content>
<content><=5.6% NORMAL</content>
<content>5.7-6.4% SUGGESTS IMPAIRED GLUCOSE METABOLISM/PREDIABETIC</content>
<content>>= 6.5% ABNORMAL</content>
<content></content> Estimated Average Glucose 123 mg/dL 60-110 [facility] ([facility] ID Date Data Source [id number] 10/11/2020 03:31:00 PM EDT [facility] ([facility]uzhat Langley [...] GFR Left</content>
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
<content></content> Potassium Serum 4.1 meq/L 3.5-5.1 [facility] [...] [facility] ID Date Data Source [id number] 08/15/2020 11:05:00 AM EDT [facility] ([facility]) Name Value Range Interpretation Code Description Data Luz rce(s) Supporting Document(s) FVC-Pred 2.45 L [facility] ([facility]) PDFReport Laboratory test result [facility] ([facility]) FVC-%Pred-Pre 63 L [facility] ([facility]) FVC-LLN 1.80 L [facility] ([facility]) FVC-Pre 1.55 L [facility] ([facility]) Fev1-Pre 1.31 L [facility] ([facility]) Fev1-Pred 1.82 L [facility] ([facility]) Fev1-%Pred-Pre 71 L [facility] ([facility]) Fev6-Pred 2.32 L [facility] ([facility]) Fev1-LLN 1.27 L [facility] ([facility]) Fev6-%Pred-Pre 66 L [facility] ([facility]) Fev6-Pre 1.55 L [facility] ([facility]) Oyt6ttx-Xpkn 74 % [facility] ([facility]) Mph7ezk-Rrh 84 % [facility] ([facility]) Fev6-LLN 1.68 L [facility] ([facility]) Vbg4lau-KGQ 64 % [facility] ([facility]) Oqb0xal-%Pred-Pre 113 % [facility] ([facility]) Aza9xtd-%Pred-Pre 105 % [facility] ([facility]) Yci4bjp-Jpz 100 % [facility] ([facility]) Efy7npg-Axjk 95 % [facility] ([facility]) FEFMax-Pred 4.68 L/E/sec [facility] ([facility]) FEFMax-Pre 3.53 L/E/sec [facility] ([facility]) FEFMax-%Pred-Pre 75 L/E/sec [facility] ([facility]) FEFMax-LLN 3.07 L/E/sec [facility] ([facility]) Vkz0568-Lsvv 1.40 L/E/sec [facility] ([facility]) Lxy8413-FUE 0.23 L/E/sec [facility] ([facility]) Tbr4238-Lwv 1.51 L/E/sec [facility] ([facility]) Mtn6728-%Pred-Pre 108 L/E/sec [facility] ([facility]) ExpTime-Pre 4.54 sec [facility] ([facility]) Blw9nea4-Juim 78 % [facility] ([facility]) Ape3jvg9-Jfd 84 % [facility] ([facility]) Ylb7qxv0-%Pred-Pre 108 % [facility] ([facility]) Zti4bpc6-OTH 69 % [facility] ([facility]) ID Date Data Source [id number] 08/03/2020 02:55:00 PM EDT [facility] (Nuzhat Langley [...] GFR Left</content>
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
<content></content> Sodium Level 136 meq/L 136-145 [facility] Carbon Dioxide Level 33 meq/L 21-32 [facility] ([facility] Chloride Level 97 meq/L 98-107 [facility] ([facility] Anion Gap 6 meq/L 8-16 [facility] ([facility] Calcium Level 9.8 mg/dL 8.8-10.2 [facility] ([facility] ID Date Data Source [id number] 07/31/2020 01:30:00 PM EDT [facility] (Nuzhat Langley [...] GFR Left</content>
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
<content></content> Creatinine For GFR 1.33 mg/dL 0.55-1.30 [...] [facility] ID Date Data Source [id number] 07/26/2020 11:54:00 PM EDT [facility] ([facility] Name Value Range Interpretation Code Description Data Luz rce(s) Supporting Document(s) Troponin I.cardiac [Mass/volume] in Serum or Plasma 0.00 ng/mL 0.00-0 .08 [facility] ([facility] ID Date Data Source [id number] 06/24/2020 04:04:54 PM EDT [facility] Name Value Range Interpretation Code Description Data Luz rce(s) Supporting Document(s) &PDF [facility] UJOOKr2cLnYLNdDl54/KYNaqVZGgg8FnUAxoPJb1ACqrPXEpL5MztTjeIWGNYtWFHGXwBG0IL4NKRiEe oRX [file] AgICAgICAgICAgICAgICAgICAgICAgICAgICAgICAgICAgICAgICAgICAgICAgICAgICAgDQogICAgIC AgICAgICAgICAgICAgICAgICAgICAgICAgICAgICAg ICAgICAgICAgICAgICAgICAgICAgICAgICAgICAgICAgICAgICAgICAgICAgICAgICAgICAgICAgICAg ICAgDQogICAgICAgICAgICAgICAgICAgICAgICAgICAgICAgICAgICAgICAgICAgICAgICAgICAgICAg ICAgICAgICAgICAgICAgICAgICAgICAgICAgICAgIC AgICAgICAgICAgICAgDQogICAgICAgICAgICAgICAgICAgICAgICAgICAgICAgICAgICAgICAgICAgIC AgICAgICAgICAgICAgICAgICAgICAgICAgICAgICAgICAgICAgICAgICAgICAgICAgICAgICAgDQogIC AgICAgICAgICAgICAgICAgICAgICAgICAgICAgICAg ICAgICAgICAgICAgICAgICAgICAgICAgICAgICAgICAgICAgICAgICAgICAgICAgICAgICAgICAgICAg ICAgICAgDQogICAgICAgICAgICAgICAgICAgICAgICAgICAgICAgICAgICAgICAgICAgICAgICAgICAg ICAgICAgICAgICAgICAgICAgICAgICAgICAgICAgIC AgICAgICAgICAgICAgICAgDQogICAgICAgICAgICAgICAgICAgICAgICAgICAgICAgICAgICAgICAgIC AgICAgICAgICAgICAgICAgICAgICAgICAgICAgICAgICAgICAgICAgICAgICAgICAgICAgICAgICAgDQ ogICAgICAgICAgICAgICAgICAgICAgICAgICAgICAg ICAgICAgICAgICAgICAgICAgICAgICAgICAgICAgICAgICAgICAgICAgICAgICAgICAgICAgICAgICAg ICAgICAgICAgDQogICAgICAgICAgICAgICAgICAgICAgICAgICAgICAgICAgICAgICAgICAgICAgICAg ICAgICAgICAgICAgICAgICAgICAgICAgICAgICAgIC AgICAgICAgICAgICAgICAgICAgDQogICAgICAgICAgICAgICAgICAgICAgICAgICAgICAgICAgICAgIC AgICAgICAgICAgICAgICAgICAgICAgICAgICAgICAgICAgICAgICAgICAgICAgICAgICAgICAgICAgIC AsCLr5P5ucCFTbPBThRF3iRHo0Fv2+DQoNCmVuZHN0 dhMnkH2LXD7sq4WbUArcDISvo4NiSSl2CY9HJCXbHYzcCP4LOXbpar3IBMQoZPUepQATs4ofJbWtJOI5 EVIuIjarOX7UCVBwC5qhshYkFXOzUQFUBIroTCQCQF2BZtEeQ3TpdE57TPUNUd2+DQplbmRvYmoNCjMz JBMdy2UfDHk3GH2CYVNoOBwbXQ3AMEBvtI6jTUpsFF 9ZWyHaAEPwKHBRTvVyR96mvKLfJWg5J8JkZmGoMPTtAaxlKTSyCJfbGaGpCZDuRaHkGThsFG5+ID4+DQ sfFL9KRTcxtdDsSLHuWg8RZMLeCNQ9ECFthOBfZuXlTCDMPHobGV1UaZFsRBB9wX3tLHtcOZDcOTMwJ5 rNMcWxjYrhMZ88lHycvjArrWAtPJm+Hz2LLR2vt3Nu YGl1otOaULltHQR2GStmSOWbFOHaCJXgZJS9QGY3FGKBPvQqBYThZLUzPKghIKXeHVBlti5NGSAvYIIr BLQ8HUNkWZDbOATbXNowCTDhRLIqNUXiANNfQVZkKA4FByOnQYEmYFDtOWPeBGSrYYFcvm7QLVThWCSi EgZ7EyFtZFTtXLVvHHnpXQMwBPBiIvWqOIZeUFQqRT 5SOiUbVRZfQENnAwEmTCGpQTDckj4TUHHsCTYuLQJyWgInRDKqMAXqFKztOBHbVTQ0Gjw0IBPaJHYyBF 7FExHfFJHdTMY3BFTdWJDqYALpxx2FWHDdTMFeEtK7OaKwIGUyFYVnENzsOILyOCA0XiFbFNPdTHQkXB 4MPlTtYSQdHVy4OjLnSLZwUZJqod0YMNDsGKZvXKGf YsRpCUFnAFSdQBasHIYiVPFjYHf6UUWxBXOxIT4BRzOsZCPbMJPfWWVzPZByLGJctx3AUOZlAFShDoQz CsXpSULvWFAeGOdwFXYaFCNfWwK4ZFYqNYJaBN5CBeXnJSVrGPP6DRKnCCNpLYOauc8UZHYhOCUcKDiy LlCiULHvIGEbTWgvQENvTNF3RJYkHIRcZHFcBW1CCa LnZFTbSQXgEENnSTHqYBImho5TYDCaLDQiYnLrUyDwAQMqIBItGVmkAWLoHVT9EmTeUNSeSNJlEF2NAv DvZFWdALJfMWlaYLJzAEDhlv8WQWUmPSPdErhyJNCoGDSiKWZcEYbwGTFgADD3HUU1VOTxKDQvMX9HKs DmQEIkBOfhQkhfEJWsKFJapg3VCRZmNRBqHoCtIvIf EPKwXLIsYGqrYLJeSUQ6KYR0QNUrYXZoUJ4OPuXqURQzSVfiTqkfDMZaHEIxsz0QRGEgAWPgIJD0QdRc OOHaCTDuYFxpYBAbUJLfVVH3EWQrVFPdIV7ADsBtTEbkIGZEKuy3XDpnN4b5KKJyCE8PY3Toz4BhMhAp XHWBUBbxNW0cehLqSITxPl8EY2dZVuftH1GoLMD5AR BwAJHtWHLzRTz2Ofu8QEtrEIijRQR7CB1vBHSiWZXgWDaiCEOcFETkUMFfUQFeKRviQxGeQRR5GddyBx FtNK9CYp9WNoY0RTS9uKGdFj4FMhPkDUWPVxRvMK2OEFg= ID Date Data Source [id number] 06/06/2020 11:31:00 PM EDT [facility] (Nuzhat Langley [...] pathogens. DISCLAIMER: Testing was performed using the [facility] [facility] SARS-CoV-2 test. This test was developed and its performance characteristics determined by [facility]. This test has not been FDA cleared [...] or revoked sooner. ID Date Data Source [id number] 06/06/2020 11:31:00 PM EDT [facility] Name Value Range Interpretation Code Description Data Luz rce(s) Supporting Document(s) SARS coronavirus 2 RNA [Presence] in Res piratory specimen by TEO with probe detection NEGATIVE [facility] This lab was ordered by [facility] a nd reported by [facility]. ID Date Data Source [id number] 06/06/2020 10:54:00 PM EDT [facility] ([facility] Name Value Range Interpretation Code Description Data Luz rce(s) Supporting Document(s) Natriuretic peptide.B prohormone N-Terminal [Mass/volu me] in Serum or Plasma 260 pg/mL [facility] ID Date Data Source [id number] 06/06/2020 10:54:00 PM EDT [facility] ([facility] Name Value Range Interpretation Code Description Data [facility] Supporting Document(s) Blood Urea Nitrogen [...] GFR Left</content>
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
<content></content> Sodium Level 140 meq/L 136-145 [...] [facility] ID Date Data Source [id number] 06/06/2020 10:54:00 PM EDT [facility] (Nuzhat Langley [...] [facility] ID Date Data Source [id number] 06/06/2020 10:54:00 PM EDT [facility] (Nuzhat Langle[facility] [...] <content>Troponin I Reference Interval f or Siemens [place] LOCI:</content>
<content></content>
<content>99th Percentile= 0.00-0.045 ng/ml</content>
<content></content>
<content>Risk Stratification:</content>
<content><= 0.10 ng/ml Decreased Risk for Adverse Clinical</content>
<content>Events.</content>
<content>0.10-1.50 ng/ml Increased Risk for Adverse Clinical</content>
<content>Events. Evaluation of additional</content>
<content>criterion and/or repeat testing in 2-6</content>
<content>hours is suggested to rule out myocardial</content>
<content>damage.</content>
<content>>= 1.50 ng/ml Indicative of Myocardial Injury.</content>
<content></content> ID Date Data Source [id number] 06/06/2020 10:54:00 PM EDT [facility] ([facility] Name Value Range Interpretation Code Description Data Luz rce(s) Supporting Document(s) Lactate [Mass/volume] in Serum or Plasma 1.9 mmol/L 0.4-2.0 [facility] ([facility] Y/N query for Sepsis Lactate Rule: Y ID Date Data Source [id number] 06/06/2020 10:54:00 PM EDT [facility] (Nuzhat Langley [...] % 24.0-44.0 [facility] ([facility] [place] % 6.9 % 2.0-8.0 [facility] (Nuzhat rivera [...] 10 1.5-8.5 [facility] ([facility] [place] # 0.6 10 0.0-0.8 [facility] ([facility] Eos # 0.2 10 0.0-0.5 [facility] ([facility] Baso # 0.0 10 0.0-0.2 [facility] ([facility] ID Date Data Source [id number] 05/18/2020 10:45:00 AM EDT [facility] (Nuzhat Langley [...] by the U.S. Food and Drug Administration. [facility] [facility] are designated as high complexity laboratories by the Clinical Laboratory Improvement Amendments of 1988(CLIA) and is qualified to perform this test. ASSAY INFORMATION: Real Time RT-PCR ID Date Data Source [id number] 05/18/2020 12:00:00 AM EDT [facility] Name Value Range Interpretation Code Description Data Luz rce(s) Supporting Document(s) SARS-CoV-2 (COVID-19) RNA [Presence] in Respiratory specimen by TEO with probe detection Not Detected [facility] This lab was ordered by [facility] and reported by [employer] ID Date Data Source [id number] 04/10/2020 12:00:00 AM EST [facility] Nuzhat Langley MD Patient Name: MYAH [id number] [address] Date of : 1940[place] [address] Date of Exam: 04/10/2020#: Fax: [phone] EXAM: [...] rce(s) Supporting Document(s) ID Date Data Source [id number] 04/10/2020 12:00:00 AM EST [facility] Nuzhat Langley MD Patient Name: MYAH [id number] [address] Date of : 1940[place] [address] Date of Exam: 04/10/2020#: Fax: [phone] EXAM: [...] rce(s) Supporting Document(s) ID Date Data Source [id number] 04/06/2020 07:29:00 PM EST [facility] ([facility] Name Value Range Interpretation Code Description Data Luz rce(s) Supporting Document(s) Appearance, Urine RFX Laboratory test result [facility] ([facility] Color, Urine RFX Laboratory test result [facility] ([facility] PH,Urine RFX 6.0 units 5.0-9.0 [facility] ([facility] Specific [place] Ur Auto RFX 1.030 1.002-1.035 [facility] ([facility]hat [...] [facility] ID Date Data Source [id number] 04/06/2020 05:47:00 PM EST [facility] ([facility] L[facility] [...] [facility] ID Date Data Source [id number] 04/06/2020 05:27:00 PM EST [facility] ([facility] Name Value Range Interpretation Code Description Data Luz rce(s) Supporting Document(s) Erythrocyte sedimentation rate by 2H Westergren method 35 mm/hr 0-3 0 [facility] ([facility] ID Date Data Source [id number] 04/06/2020 05:27:00 PM EST [facility] (Nuzhat Langley [...] % 36.0-66.0 [facility] ([facility] [place] % 5.7 % 2.0-8.0 [facility] (Nuzhat rivera [...] 10 1.5-5.0 [facility] ([facility] [place] # 0.5 10 0.0-0.8 [facility] ([facility] [place] # 0.1 10 0.0-0.5 [facility] ([facility] Baso # 0.0 10 0.0-0.2 [facility] ([facility] ID Date Data Source [id number] 04/06/2020 05:27:00 PM EST [facility] ([facility] Name Value Range Interpretation Code Description Data Luz rce(s) Supporting Document(s) C reactive protein [Mass/volume] in Serum or Plasma by High sensitivity method 1.31 mg/dL 0.00-0.30 [facility] ([facility] ID Date Data Source [id number] 03/07/2020 11:43:00 PM EST [facility] (Nuzhat Langley [...] [facility] ID Date Data Source [id number] 03/07/2020 09:42:00 PM EST [facility] (Nuzhat Langley [...] - SARS-CoV-2 (COVID19) ID Date Data Source [id number] 03/07/2020 09:42:00 PM EST [facility] Name Value Range Interpretation Code Description Data Luz e(s) Supporting Document(s) SARS-CoV-2 (COVID 19) NEGATIVE - SARS-CoV-2 (COVID19) [facility] This lab was ordered by [facility] a nd reported by [facility]. ID Date Data Source [id number] 01/31/2020 01:53:00 PM EST [facility] (Nuzhat Langley [...] [facility] ID Date Data Source [id number] 01/31/2020 01:53:00 PM EST [facility] ([facility] Name Value Range Interpretation Code Description Data Luz rce(s) Supporting Document(s) Natriuretic peptide.B prohormone N-Terminal [Mass/volu me] in Serum or Plasma 226 pg/mL [facility] ([facility] ID Date Data Source [id number] 01/31/2020 01:53:00 PM EST [facility] (Nuzhat Langley [...] GFR Left</content>
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
<content></content> Creatinine For GFR 1.48 mg/dL [...] [facility] ID Date Data Source [id number] 01/31/2020 01:53:00 PM EST [facility] (Nuzhat Langley [...] [facility] ID Date Data Source [id number] 01/31/2020 01:53:00 PM EST [facility] (Nuzhat Langley [...] <content>Troponin I Reference Interval f or [employer] [place] LOCI:</content>
<content></content>
<content>99th Percentile= 0.00-0.045 ng/ml</content>
<content></content>
<content>Risk Stratification:</content>
<content><= 0.10 ng/ml Decreased Risk for Adverse Clinical</content>
<content>Events.</content>
<content>0.10-1.50 ng/ml Increased Risk for Adverse Clinical</content>
<content>Events. Evaluation of additional</content>
<content>criterion and/or repeat testing in 2-6</content>
<content>hours is suggested to rule out myocardial</content>
<content>damage.</content>
<content>>= 1.50 ng/ml Indicative of Myocardial Injury.</content>
<content></content> ID Date Data Source [id number] 01/31/2020 01:53:00 PM EST [facility] (Nuzhat Langley [...] % 24.0-44.0 [facility] (Nuzhat [facility] [place] % 6.1 % 0.0-5.0 [facility] (Nuzhat rivera [...] 10 0.0-0.5 [facility] ([facility] [place] # 0.6 10 0.0-0.8 [facility] ([facility] [place] # 0.0 10 0.0-0.2 [facility] ([facility] ID Date Data Source [id number] 01/24/2020 12:25:00 AM EST [facility] (Nuzhat Langley [...] <content>Troponin I Reference Interval f or Siemens [place] LOCI:</content>
<content></content>
<content>99th Percentile= 0.00-0.045 ng/ml</content>
<content></content>
<content>Risk Stratification:</content>
<content><= 0.10 ng/ml Decreased Risk for Adverse Clinical</content>
<content>Events.</content>
<content>0.10-1.50 ng/ml Increased Risk for Adverse Clinical</content>
<content>Events. Evaluation of additional</content>
<content>criterion and/or repeat testing in 2-6</content>
<content>hours is suggested to rule out myocardial</content>
<content>damage.</content>
<content>>= 1.50 ng/ml Indicative of Myocardial Injury.</content>
<content></content> ID Date Data Source [id number] 01/23/2020 09:51:00 PM EST [facility] (Nuzhat Langley [...] GFR Left</content>
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
<content></content> Creatinine For GFR 1.61 mg/dL 0.55-1.30 [...] [facility] ID Date Data Source [id number] 01/23/2020 09:51:00 PM EST [facility] (Nuzhat Langley [...] [facility] ID Date Data Source [id number] 01/23/2020 09:51:00 PM EST [facility] ([facility] Name Value Range Interpretation Code Description Data Luz rce(s) Supporting Document(s) CK-MB Value Mass Laboratory test result [facility] ([facility] CPK Creatine Phosphokinase 43 U/L 26-192 [facility] ([facility] Troponin I Laboratory test result [facility] ([facility] <content>Troponin I Reference Interval f or Siemens [place] LOCI:</content>
<content></content>
<content>99th Percentile= 0.00-0.045 ng/ml</content>
<content></content>
[...] > 4</content>
<content></content> ID Date Data Source [id number] 01/23/2020 09:51:00 PM EST [facility] (Nuzhat Langley [...] MYOCARDIAL INFARCTION 2.5-3.5 ID Date Data Source [id number] 01/23/2020 09:51:00 PM EST [facility] (Nuzhat Langley [...] % 11.5-14.5 [facility] ([facility] [place] % 5.0 % 0.0-5.0 [facility] (Nuzhat rivera [...] 10 0.0-0.5 [facility] ([facility] [place] # 0.5 10 0.0-0.8 [facility] ([facility] [place] # 0.0 10 0.0-0.2 [facility] ([facility] ID Date Data Source [id number] 01/23/2020 09:51:00 PM EST [facility] ([facility] Name Value Range Interpretation Code Description Data Luz rce(s) Supporting Document(s) Natriuretic peptide.B prohormone N-Terminal [Mass/volu me] in Serum or Plasma 519 pg/mL [facility] ([facility] ID Date Data Source [id number] 01/19/2020 02:58:00 PM EST [facility] ([facility] Name Value Range Interpretation Code Description Data Luz rce(s) Supporting Document(s) Hemoglobin A1c/Hemoglobin.total in Blood 6.5 % [facility] ([facility] <content>REFERENCE RANGES:</content><br/ ><content></content>
<content><=5.6% NORMAL</content>
<content>5.7-6.4% SUGGESTS IMPAIRED GLUCOSE METABOLISM/PREDIABETIC</content>
<content>>= 6.5% ABNORMAL</content>
<content></content> Estimated Average Glucose 140 mg/dL 60-110 [facility] ([facility] ID Date Data Source [id number] 01/19/2020 02:58:00 PM EST [facility] (Nuzhat Langley [...] GFR Left</content>
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
<content></content> Carbon Dioxide Level 37 meq/L 21-32 [...] [facility] ID Date Data Source [id number] 12/02/2019 07:46:00 PM EDT [facility] (Nuzhat Langley [...] pathogens. DISCLAIMER: Testing was performed using the [facility] SARS-CoV-2 test. This test was developed and [...] or revoked sooner. ID Date Data Source [id number] 12/02/2019 07:06:00 PM EDT [facility] (Nuzhat Langley [...] [facility] ID Date Data Source [id number] 12/02/2019 07:06:00 PM EDT [facility] (Nuzhat Langley [...] [facility] ID Date Data Source [id number] 12/02/2019 07:06:00 PM EDT [facility] (Nuzhat Langley [...] MYOCARDIAL INFARCTION 2.5-3.5 ID Date Data Source [id number] 12/02/2019 07:06:00 PM EDT [facility] (Nuzhat Langley [...] % 24.0-44.0 [facility] ([facility] [place] % 7.1 % 0.0-5.0 [facility] (Nuzhat rivera [...] 10 0.0-0.5 [facility] ([facility] [place] # 0.6 10 0.0-0.8 [facility] ([facility] [place] # 0.0 10 0.0-0.2 [facility] ([facility] ID Date Data Source [id number] 12/02/2019 07:06:00 PM EDT [facility] (Nuzhat Langley [...] P.[facility].) Venous Base Excess 3.9 [facility] ([facility] Venous Standard Hco3 28.0 meq/L [facility] ( [facility] Venous O2 Saturation 98.9 % 60.0-80.0 MEDE NT ([facility] ID Date Data Source [id number] 12/02/2019 06:37:00 PM EDT [facility] ([facility] Name Value Range Interpretation Code Description Data Luz rce(s) Supporting Document(s) Troponin I.cardiac [Mass/volume] in Serum or Plasma 0.00 ng/mL 0.00-0 .08 [facility] ([facility] ID Date Data Source [id number] 12/02/2019 06:35:00 PM EDT [facility] (Nuzhat Langley [...] completed Patient is a former smoker [facility] ([facility], ) Alcohol intake 06/07/2020 12:00:00 AM EDT No completed [facility] Cigarette pack-years 06/07/2020 12:00:00 AM EDT UNK completed [facility] Cigarettes smoked current (pack per day) - Reported 06/08/19 12:00:00 AM EDT UNK completed [facility] Smoking 06/07/2020 12:00:00 AM EDT Former smoker completed Former smoker [facility] Alcohol intake 01/19/2020 12:00:00 AM EST No completed [facility] Cigarette pack-years 01/19/2020 12:00:00 AM EST UNK completed [facility] Cigarettes smoked current (pack per day) - Reported 01/19/20 12:00:00 AM EST UNK completed [facility] Smoking 01/19/2020 12:00:00 AM EST Former smoker completed Former smoker [facility] Vital Signs ID Date Data Source [...] [facility] ([facility] Body temperature 96.5 [degF] 96.5 [degF] [facility] ([facility] Respiratory rate 28 /min 28 /min [facility] ( [facility] [place] body weight 105 [lb_av] 105 [lb_av] [facility] T ([facility] Body mass index (BMI) [Ratio] 39.0 kg/m2 39.0 k g/m2 [facility] ([facility] Oxygen saturation in Arterial blood by Pulse oximetry 95 % 95 % [facility] ([facility] Body temperature 95.7 [degF] 95.7 [degF] [facility] ([facility] Systolic blood pressure 87 mm[Hg] 87 mm[Hg] M EDENT ([facility] [place] body weight 105 [lb_av] 105 [lb_av] MED[facility] [...] Body height 61.5 [in_i] 61.5 [in_i] [facility] ([facility]) 5'1.50" Body weight 228.00 [lb_av] 228.00 [lb_av] [facility] T ([facility]) Body mass index (BMI) [Ratio] 42.4 kg/m2 42.4 k g/m2 [facility] ([facility]) Systolic blood pressure 124 mm[Hg] 124 mm[Hg] M EDENT ([facility]) Diastolic blood pressure 62 mm[Hg] 62 mm[Hg] [facility] ([facility]) Heart rate 72 /min 72 /min [facility] ([facility]) Oxygen saturation in Arterial blood by Pulse oximetry 96 % 96 % [facility] ([facility]) Body height 62 [in_i] 62 [in_i] [facility] ([facility] [place]) 5'2" Body weight 227.00 [lb_av] 227.00 [lb_av] [facility] T ([facility]) Body mass index (BMI) [Ratio] 41.5 kg/m2 41.5 k g/m2 [facility] ([facility]) [place] body weight 110 [lb_av] 110 [lb_av] [facility] T ([facility]) Body weight 102.967 kg 102.967 kg [facility] ([facility] [place]) Body surface area Derived from formula 2.02 m2 2.02 m2 [facility] ([facility]) Body height 61.5 [in_i] 61.5 [in_i] [facility] [...] 96 % [facility] ([facility] [place] body weight 105 [lb_av] 105 [lb_av] [facility] T ([facility] Body mass index (BMI) [Ratio] 43.7 kg/m2 43.7 k g/m2 [facility] ([facility] Body temperature 97.3 [degF] 97.3 [degF] [facility] ([facility] [place] body weight 105 [lb_av] 105 [lb_av] MEDEN [...] Diastolic blood pressure 77 mm[Hg] 77 mm[Hg] [facility] ([facility]) Systolic blood pressure 147 mm[Hg] 147 [facility]Hg[facility] Heart rate 70 /min 70 /min [facility] ([facility]) Body mass index (BMI) [Ratio] 43.9 kg/m2 43.9 k g/m2 [facility] ([facility]) Body temperature 97.1 [degF] 97.1 [degF] [facility] ([facility]) [place] body weight 110 [lb_av] 110 [lb_av] [facility] T ([facility]) Body weight 108.864 kg 108.864 kg [facility] ([facility] [place]) Oxygen saturation in Arterial blood by Pulse oximetry 93 % 93 % [facility] ([facility]) Respiratory rate 18 /min 18 /min [facility] ( [facility]) Body height 62 [in_i] 62 [in_i] [facility] ([facility] [place]) 5'2" Body weight 240.00 [lb_av] 240.00 [lb_av] [facility] T ([facility]) Body surface area Derived from formula 2.07 m2 2.07 m2 [facility] ([facility]) Body temperature 97.8 [degF] 97.8 [degF] [facility] ([facility]) Oxygen saturation in Arterial blood by Pulse oximetry 100 % 100 % [facility] ([facility]) Body height 62 [in_i] 62 [in_i] [facility] ([facility] [place]) 5'2" Respiratory rate 20 /min 20 /min [facility] ( [facility]) Body weight 240.00 [lb_av] 240.00 [lb_av] [facility] T ([facility]) Body mass index (BMI) [Ratio] 43.9 kg/m2 43.9 k g/m2 [facility] ([facility]) [place] body weight 110 [lb_av] 110 [lb_av] [facility] T ([facility]) Heart rate 85 /min 85 /min [facility] ([facility]) Systolic blood pressure 126 mm[Hg] 126 mm[Hg] M EDENT ([facility]) Diastolic blood pressure 65 mm[Hg] 65 mm[Hg] [facility] ([facility]) Body weight 108.864 kg 108.864 kg [facility] ([facility] [place]) Body surface area Derived from formula 2.07 m2 2.07 m2 [facility] ([facility]) Systolic blood pressure 120 mm[Hg] 120 mm[Hg] [facility] Diastolic blood pressure 60 mm[Hg] 60 mm[Hg] [facility] Heart rate 93 /min 93 /min [facility] Body height 157.5 cm 157.5 cm [facility] Body weight 107.502 kg 107.502 kg [facility] Body mass index (BMI) [Ratio] 43.35 kg/m2 43.35 kg/m2 [facility] Oxygen saturation in Arterial blood by Pulse oximetry 93 % 93 % [facility] Systolic blood pressure 130 mm[facility]Hg] 130 [facility] Diastolic blood pressure 70 mm[Hg] 70 mm[Hg] [facility] ([facility]) Heart rate 97 /min 97 /min [facility] ([facility]) Oxygen saturation in Arterial blood by Pulse oximetry 94 % 94 % [facility] ([facility], ) Body height 62 [in_i] 62 [in_i] [facility] ([facility] [place]) 5'2" Body weight 240.00 [lb_av] 240.00 [lb_av] [facility] T ([facility]) Body mass index (BMI) [Ratio] 43.9 kg/m2 43.9 k g/m2 [facility] ([facility]) [place] body weight 110 [lb_av] 110 [lb_av] [facility] T ([facility]) Body weight 108.864 kg 108.864 kg [facility] ([facility] ) Body surface area Derived from formula 2.07 m2 2.07 m2 [facility] ([facility], ) Heart rate 74 /min 74 /min [...] 95 % [facility] ([facility] [place] body weight 105 [lb_av] 105 [lb_av] MEDEN [...] [in_i] [facility] ([facility] 5'1.50" [place] body weight 105 [lb_av] 105 [lb_av] [facility] T ([facility] Body mass index (BMI) [Ratio] 46.0 kg/m2 46.0 k g/m2 [facility] ([facility] Oxygen saturation in Arterial blood by Pulse oximetry 98 % 98 % [facility] ([facility] Systolic blood pressure 70 mm[Hg] 70 mm[Hg] M EDENT ([facility] Body weight 208.25 [lb_av] 208.25 [lb_av] [facility] T ([facility] Oxygen saturation in Arterial blood by Pulse oximetry 96 % 96 % [facility] ([facility] [place] body weight 105 [lb_av] 105 [lb_av] MEDEN [...] Systolic blood pressure 132 mm[Hg] 132 mm[Hg] [facility] Diastolic blood pressure 60 mm[Hg] 60 mm[Hg] [facility] Heart rate 93 /min 93 /min [facility] Body height 157.5 cm 157.5 cm [facility] Body weight 113.853 kg 113.853 kg [facility] Body mass index (BMI) [Ratio] 45.91 kg/m2 45.91 kg/m2 [facility] Oxygen saturation in Arterial blood by Pulse oximetry 98 % 98 % [facility] Systolic blood pressure 108 mm[Hg] 108 [...] 94 % [facility] ([facility] [place] body weight 105 [lb_av] 105 [lb_av] MEDEN [...] 95 % [facility] ([facility] Respiratory rate 26 /min 26 /min [facility] ( [facility] Body height 61.5 [in_i] 61.5 [in_i] [facility] ([facility] 5'1.50" Body weight 253.38 [lb_av] 253.38 [lb_av] [facility] T ([facility] [place] body weight 105 [lb_av] 105 [lb_av] [facility] T ([facility] Body mass index (BMI) [Ratio] 47.1 kg/m2 47.1 k g/m2 [facility] ([facility] Oxygen saturation in Arterial blood by Pulse oximetry 94 % 94 % [facility] ([facility] on room air [place] body weight 105 [lb_av] 105 [lb_av] MEDEN [...] 95 % [facility] ([facility] [place] body weight 105 [lb_av] 105 [lb_av] [facility] T ([facility] Patient Treatment Plan of Care Planned Activity Planned Date Details Description Data Source (s) torsemide 20 MG Oral Tablet 01/12/2020 12:00:00 AM EST [facility] Metformin hydrochloride 500 MG Oral Tablet 01/11/2020 12:00:00 AM E [facility] Bacitracin 0.5 UNT/MG / Neomycin 0.0035 MG/MG / Polymyxin B 10 UNT/MG Topical Ointment 12/27/2019 12:00:00 AM EST [facility] Albuterol 0.833 MG/ML / Ipratropium [place] 0.167 MG/M L Inhalant Solution 12/27/2019 12:00:00 AM EST [facility] Fluconazole 100 MG Oral Tablet 12/08/2019 12:00:00 AM EDT [facility] Prednisone 5 MG Oral Tablet 06/25/2019 12:00:00 AM EDT [facility] potassium chloride SA (K-DUR,KLOR-CON) 20 MEQ tablet 020 12:00:00 AM EDT [facility] Furosemide 40 MG Oral Tablet 06/11/2019 12:00:00 AM EDT [facility] tizanidine 4 MG Oral Tablet [facility] 60 ACTUAT Fluticasone propionate 0.5 MG/ ACTUAT / salmeterol 0.05 MG/ACTUAT Dry Powder Inhaler [facility]
--- NOTE | 2021-01-26 22:57 | HPEPDOC ---
[facility] Medical History & Physical Date of Admission Jan 26, 2021 Date of Service: Jan 26, 2021 Primary Care Physician: Nuzhat Langley MD Attending Physician: JOY SCHAFER MD History and Physical CHIEF COMPLAINT: Difficulty breathing HISTORY OF PRESENT ILLNESS: Sana Stokes is a 80 year old female with a PMHx of COPD and HF who presented to the ED today due to a 24 hour hx of SOB, nausea, and vomiting. Patient reports difficulty breathing upon awakening today so severe she was unable to walk, due to this feeling she notes she slept in bed all day and when it worsened around 4PM she called EMS who brought her to the ED. Patient also reports nausea and recurrent dry heaving the night prior. Patient adds that sitting improved it slightly but denied any exacerbating factors. Patient also remarks on chronic productive cough that brings up whitish sputum that has been worse in this period. Prior to today patient reported feeling at baseline. She did comment on the fact that this feels similar to previous episodes of HF exacerbation. PAST MEDICAL HISTORY: #. CHFpEF #. COPD #. T2DM #. CKD #. Afib #. EDGARD #. Hx of HTN #. Chronic anemia #. Anxiety + depression #. Sick sinus s/p dual chamber pacemaker #. Nicotine use disorder #. Morbid obesity PAST SURGICAL HISTORY: #. Hysterectomy #. Appendectomy #. Hernia repair #. Dual chamber pacemaker placement #. 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 REVIEW OF SYSTEMS: CONSTITUTIONAL: Reports fever, no chills HEENT: Denies headache, lightheadedness, dizziness, and vision changes. CARDIOVASCULAR: Denies chest pain, pressure, and palpitations. RESPIRATORY: Reports increasing SOB since this morning that improves slightly upon sitting. GASTROINTESTINAL: Patient reports nausea and dry-heaving multiple times last evening. Denies constipation or diarrhea. GENITOURINARY: Denies hematuria, dysuria, and increased frequency. MUSCULOSKELETAL: Reports general feeling of pain and discomfort throughout entire body. HOME MEDICATIONS: Please see below. PHYSICAL EXAMINATION: VITAL SIGNS: See below. GENERAL APPEARANCE: Patient is a somnolent 80 year old female who appears her age and is in no acute distress. HENT: NC/AT, EOMI, mucous membranes moist. CARDIOVASCULAR: Irregular rate + rhythm no murmurs or gallops appreciated. LUNGS: Diminished breath sounds bilaterally. Bilateral crackles with end expiratory wheezing. Labored breathing without accessory muscle use. ABDOMEN: Soft and nontender, abdomen is nondistended with normoactive bowel sounds. MUSCULOSKELETAL: 5/5 muscle strength bilaterally in UE/LE EXTREMITIES: Pitting edema noted in LE bilaterally up to mid-tibial region. NEUROLOGICAL: CN 2-12 grossly intact. PSYCHIATRIC: Mood is anxious with appropriate affect. LABORATORY DATA: See below. IMAGING: #. 01/26/21 CXR: "IMPRESSION: - Congestive heart failure with bilateral pleural effusions and bibasilar atelectasis." MICROBIOLOGY: Please see below. ASSESSMENT: Sana Stokes is a 80 year old female with a PMHx of HF and COPD with a 24 hour Hx of SOB found to have CHF with bilateral pleural effusions and bibasilar atelectasis on CXR suggestive of CHF exacerbation. . PLAN: #. SOB likely 2/2 CHF exacerbation - 24hr hx of SOB, with crackles, bilateral pleural effusions, elevated BNP, LE edema consistent with CHF exacerbation - 11/2019 echo shows mild LVH and mild with an EF of 60% - IV furosemide started 60 mg IVQ8H, continue home KCL, mag oxide, spironolactone #. Acute on chronic CKD - Cr of 1.68, baseline ~ 1.4 - Likely 2/2 fluid overload from CHF exacerbation #. Leukocytosis- possibly 2/2 LLE cellulitis vs. unlikely UTI vs. CAP - WBC of 25.8 on admission w/ neutrophil predominance of 92% - Blood cultures x2 pending, sputum culture and procal ordered - Rocephin/Doxy to cover for any of above #. SIRS (+) w/ no clear source - LA, leukocytosis, tachypnea - in light of fluid overload will not be giving 30cc/kg bolus - possible sources of infection covered w/ rocephin + doxy #. Lactic acidosis - 2.5 on admission, likely 2/2 CHF exacerbation #. COPD - noncompliant with 2L home O2 - continue home albuterol - Titrate O2 88-92% #. Afib - Continue home xarelto, diltiazem #. Normocytic anemia - Hx of iron deficiency anemia - Will reorder iron studies #. 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 Nicotine use disorder -Continue bupropion #. Depression/anxiety -Continue citalopram #. Morbid obesity - Complicating care DVT Prophylaxis: Alinerelto CODE Status: Full code Vital Signs Vital Signs Date Time Temp Pulse Resp B/P (MAP) Pulse Ox O2 Delivery O2 Flow Rate FiO2 01/26/21 21:46 70 140/59 (86) 95 01/26/21 18:48 Nasal Cannula 6.0 01/26/21 18:01 99.7 52 Laboratory Data Labs 24H Laboratory Tests 2 01/26/21 18:15: Immature Granulocyte % (Auto) 1.2, Neutrophils (%) (Auto) 92.0H, Lymphocytes (%) (Auto) 3.3L, Monocytes (%) (Auto) 3.1, Eosinophils (%) (Auto) 0.2, Basophils (%) (Auto) 0.2, Neutrophils # (Auto) 23.8H, Lymphocytes # (Auto) 0.8L, Monocytes # (Auto) 0.8, Eosinophils # (Auto) 0.0, Basophils # (Auto) 0.1, Nucleated Red Blood Cells % (auto) 0.0, Anion Gap 9, Glomerular Filtration Rate 31.3L, Lactic Acid Level 2.5*H, Calcium Level 9.2, Total Bilirubin 1.5H, Direct Bilirubin 0.6H, Aspartate Amino Transf (AST/SGOT) 10, Alanine Aminotransferase (ALT/SGPT) 8L, Alkaline Phosphatase 71, QK-Xvi-P-Type Natriuretic Peptide 9119H, Total Protein 5.3L, Albumin 2.8L, Albumin/Globulin Ratio 1.1L, Thyroid Stimulating Hormone (TSH) 1.410, Thyroxine (T4) 9.5 01/26/21 18:28: POC Glucose (Misc Panel) 164H, POC Sodium (Misc Panel) 134L, POC Potassium (Misc Panel) 4.6, POC Chloride (Misc Panel) 97L, POC Total CO2 (Misc Panel) 23.0, POC Blood Urea Nitrogen (Misc Panel 24, POC Ionized Calcium (Misc Panel) 4.6, POC Creatinine (Misc Panel) 1.8H, POC Hematocrit (Misc Panel) 35.0L 01/26/21 18:29: POC Total CO2 (Misc Panel) 25.0, POC pH (Misc Panel) 7.469H, POC Base Excess (Misc Panel) 0.0, POC Saturated Percent O2 (Misc) 91L, POC pO2 (Misc Panel) 57.0L, POC pCO2 (Misc Panel) 33.0L, POC HCO3 (Misc Panel) 24.0 01/26/21 18:30: POC Troponin I (Misc) 0.01 01/26/21 20:13: Urine Color ALEJANDRA, Urine Appearance HAZY, Urine pH 5.0, Urine Specific [place] 1.020, Urine Protein 1+H, Urine Glucose (UA) NEGATIVE, Urine Ketones NEGATIVE, Urine Blood NEGATIVE, Urine Nitrite NEGATIVE, Urine Bilirubin NEGATIVE, Urine Urobilinogen 4.0H, Urine Leukocyte Esterase NEGATIVE, Urine WBC (Auto) 3, Urine RBC (Auto) 5H, Urine Hyaline Casts (Auto) 0, Urine Bacteria (Auto) 3+H, Urine Squamous Epithelial Cells 1, Urine Mucus (Auto) SMALL, Urine Sperm (Auto) CBC/BMP Laboratory Tests 01/26/21 18:15 Microbiology Microbiology 01/26/21 Blood Culture, Received Pending 01/26/21 Blood Culture, Received Pending 01/26/21 Respiratory Virus Panel (PCR) (EMILEE) - Final, Complete Home Medications Scheduled Bupropion Hcl (Bupropion Xl) 150 Mg Tab, 150 MG PO DAILY Citalopram Hydrobromide (Celexa) 40 Mg Tab, 40 MG PO DAILY Diltiazem HCl (Diltiazem HCl) 60 Mg Tablet, 60 MG PO DAILY Magnesium Oxide (Magnesium Oxide) 400 Mg Tablet, 400 MG PO DAILY Metformin HCl (Metformin HCl) 500 Mg Tablet, 500 MG PO QPM DINNER Nystatin (Nystatin) 15 Gm Cream..g., 1 APPLIC TOP BID ABDOMINAL FOLDS Potassium Chloride (Potassium Chloride) 20 Meq Tablet.er, 20 MEQ PO DAILY Rivaroxaban (Xarelto) 15 Mg Tablet, 15 MG PO DAILY Spironolactone (Spironolactone) 25 Mg Tablet, 25 MG PO DAILY Torsemide (Torsemide) 20 Mg Tablet, 20 MG PO DAILY Scheduled PRN Acetaminophen (Acetaminophen) 325 Mg Tablet, 650 MG PO Q6H PRN for PAIN Albuterol Sulfate (Proair Hfa) 108 Mcg/Act Aer, 2 PUFF INH Q4H PRN for SOB/WHEEZING Oxycodone/Acetaminophen (Oxycodone-Acetaminophen 5-325) 1 Each Tablet, 1 TAB PO QID PRN for pain Allergies Coded Allergies: Penicillins (Verified Allergy, Mild, RASH, 01/23/21) Sulfa (Sulfonamide Antibiotics) (Verified Allergy, Mild, RASH, 01/23/21) clindamycin (Verified Allergy, Mild, RASH, 01/23/21) codeine (Verified Adverse Reaction, Mild, STOMACH UPSET, RASH, 01/23/21) meperidine (Verified Adverse Reaction, Mild, STOMACH UPSET, RASH, 01/23/21) GME ATTESTATION GME ATTESTATION My faculty preceptor for this patient encounter was physically present during the encounter and was fully available. All aspects of the patient interview, examination, medical decision making process, and medical care plan development were reviewed and approved by the faculty preceptor. The faculty preceptor is aware and concurs with the plan as stated in the body of this note and will attest to such by his/her cosignature. SHANNAN GARCIA OMS-3 Jan 26, 2021 22:57
[2021-01-26] MEDS ORDERED: ALBUTEROL 90 MCG/ACT 8GM HFA INHALER INH PRN (23:00)
[2021-01-26] MEDS: FUROSEMIDE 40MG/4ML VIAL (J1940) IV SCH (23:55)
[2021-01-26 23:59] LABS: ABG BASE EXCESS 0.9 (-2.0-2.0); ABG HCO3 25.2 MEQ/L (22.0-26.0); ABG PARTIAL PRESSURE CO2 38.7 mmHg (35.0-45.0); ABG PARTIAL PRESSURE O2 114.4 mmHg (75.0-100.0); ABG STANDARD HCO3 25.3 MEQ/L (22.0-26.0); ABG TOTAL CO2 26.4 MEQ/L (23.0-31.0); ABG pH (ARTERIAL) 7.431 UNITS (7.350-7.450)
[2021-01-27] MEDS ORDERED: FUROSEMIDE 40MG/4ML VIAL (J1940) IV SCH
[2021-01-27] MEDS: DOXYCYCLINE HYCLATE 100 MG in D5W MINI-BAG PLUS 100 ML IV SCH ×2 (01:00→13:10)
[2021-01-27] MEDS ORDERED: cefTRIAXone SOD 1 GM in D5W MINI-BAG PLUS 50 ML IV SCH ×2 (02:00→09:00)
[2021-01-27 03:05] VITALS: BP 123/60
[2021-01-27] MEDS ORDERED: NYSTATIN CREAM 15 GM TOP PRN (03:35)
[2021-01-27 04:00] VITALS: O2SAT 94
[2021-01-27 08:00] VITALS: BP 109/54
[2021-01-27] MEDS: CitaloPRAM (CeleXA) 20 MG TAB PO SCH (08:22)
[2021-01-27] MEDS: buPROPion **XL** TABLET 150MG (WELLBUTRIN XL) PO SCH (08:22)
[2021-01-27] MEDS: MAGNESIUM OXIDE 400MG TAB (MAG-OX) PO SCH (08:22)
[2021-01-27] MEDS: SPIRONOLACTONE 25 MG TAB PO SCH (08:22)
[2021-01-27] MEDS: POTASSIUM CHLORIDE 10MEQ SR TABLET PO SCH (08:22)
[2021-01-27] MEDS: FUROSEMIDE 40MG/4ML VIAL (J1940) IV SCH ×3 (08:23→23:39)
[2021-01-27] MEDS ORDERED: NYSTATIN CREAM 15 GM TOP SCH (09:00)
[2021-01-27] MEDS ORDERED: GLUCOSE 4GM CHEW TABLET PO PRN (10:45)
[2021-01-27] MEDS ORDERED: DEXTROSE 50% 50 ML SYRINGE IV PRN (10:45)
[2021-01-27] MEDS ORDERED: GLUCAGON INJ 1MG VIAL SC PRN (10:45)
--- NOTE | 2021-01-27 10:54 | IPNPDOC ---
Text Note Date of Service The patient was seen on 01/27/21. NOTE Subjective: Patient stated that she feels better in the morning her breathing improved. Patient stated that she deeply upset about her recent loss of her and she lost around 40 pounds. Objective: GENERAL APPEARANCE: NAD HEENT: no scleral icterus, plus JVD, EOMI CARDIOVASCULAR: Irregularly irregular LUNGS: Diminished lung sounds bilaterally ABDOMEN: soft & not tender w palpation MUSCULOSKELETAL: no cyanosis, left distal leg moderate erythema, +1 swelling of both lower extremities INTEGUMENT: no generalized pallor NEUROLOGICAL: cranial nerve function from 2-12 intact, follows commands, speech not dysarthric Assessment plan Patient 80 years old female with past medical history of diastolic CHF, COPD, type 2 diabetes, CKD presented to hospital with increased shortness of breath. Patient was found to have bilateral pleural effusion, elevated BNP and leukocytosis Acute diastolic CHF exacerbation/dyspnea Patient's oxygen requirements increased from 2 L to 4 L BNP elevated, chest x-ray shows bilateral lateral pleural effusion and elevated BNP I will proceed with CT chest due to significant leukocytosis Continue diuresis with Lasix IV I's and O's Atrial fibrillation Continue with Xarelto Heart rate under control Acute on chronic CKD Most likely secondary to volume overload Continue to monitor Left leg cellulitis/leukocytosis/lactic acidosis Most like leukocytosis attributed to left leg cellulitis I will proceed with chest CT to rule out pneumonia Doxycycline IV, ceftriaxone IV Await blood culture, urine culture Lactic acidosis most likely secondary to acute CHF exacerbation COPD Not in acute exacerbation Continue home inhalers Normocytic anemia - Hx of iron deficiency anemia - Will reorder iron studies B12, folate, stool for occult blood Type 2 diabetes Insulin sliding scale Diabetes diet EDGARD noncompliant w/CPAP, settings unknown - 12/2019 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
[2021-01-27 11:18] LABS: BASO % 0.1 % (0.0-1.0); HEMATOCRIT 32.1 % (36.0-47.0); HEMOGLOBIN 10.4 g/dl (12.0-15.5); LYMPH # 1.1 10^3/uL (1.5-5.0); LYMPH % 4.6 % (24.0-44.0); MEAN CORPUSCULAR HEMOGLOBIN 28.4 pg (27.0-33.0); MEAN CORPUSCULAR HGB CONC 32.4 g/dl (32.0-36.5); MEAN CORPUSCULAR VOLUME 87.7 fl (80.0-96.0); MONO # 0.8 10^3/uL (0.0-0.8); MONO % 3.3 % (2.0-8.0); NEUTROPHILS # 21.9 10^3/uL (1.5-8.5); NEUTROPHILS % 89.2 % (36.0-66.0); PLATELET COUNT, AUTOMATED 141 10^3/uL (150-450); RED BLOOD COUNT 3.66 10^6/uL (4.00-5.40); WHITE BLOOD COUNT 24.5 10^3/uL (4.0-10.0)
[2021-01-27 11:48] LABS: ALBUMIN 2.6 GM/DL (3.2-5.2); BILIRUBIN,TOTAL 0.7 MG/DL (0.2-1.0); CALCIUM LEVEL 8.8 MG/DL (8.8-10.2); CREATININE FOR GFR 1.85 MG/DL (0.55-1.30); PERCENT SATURATION 8.6 % (13.2-45.0); POTASSIUM SERUM 4.2 MEQ/L (3.5-5.1); TOTAL PROTEIN 5.3 GM/DL (6.4-8.2)
[2021-01-27 12:00] VITALS: BP 112/54
[2021-01-27] MEDS: HumaLOG INSULIN (NovoLOG) PER UNIT SC SCH ×3 (12:00→20:43)
--- NOTE | 2021-01-27 12:41 | REP ---
INDICATION: dyspnea. COMPARISON: CT chest, 07/31/2020. TECHNIQUE: Imaging protocol: Computed tomography of the chest without IV contrast. Contiguous 3 mm thick axial projection images were obtained through the chest. 2D sagittal and coronal reconstructions were performed. Radiation optimization: All CT scans at this facility use at least one of these dose optimization techniques: automated exposure control; mA and/or kV adjustment per patient size (includes targeted exams where dose is matched to clinical indication); or iterative reconstruction. FINDINGS: Lower neck: Thyroid gland is heterogeneous without discrete nodules. There is no supraclavicular lymphadenopathy. Mediastinum: There are multiple reactive mediastinal lymph nodes. Heart/thoracic aorta: The heart is enlarged. There is a minimal pericardial effusion. There is calcific vascular disease of the thoracic aorta and coronary arteries. There are pacemaker wires in the right heart chambers. Upper abdomen: There is moderate splenomegaly with the spleen measuring 16.9 cm in axial dimension. There are 2 low-density foci in the spleen measuring 1.5 and 1.9 cm in diameter, respectively. These are of uncertain etiology. There is calcific vascular disease of the abdominal aorta. Thoracic esophagus: There is a small hiatal hernia. Chest wall and axilla: There is a pacemaker device in the left upper chest wall. The visualized breasts in soft tissues of the chest wall are otherwise unremarkable. There is no axillary lymphadenopathy. There is mild multilevel degenerative disc disease of the thoracic spine with moderate dextroscoliosis. There is moderate anterior wedging of T3. There is kyphotic deformity of the chest. Lung parenchyma: There is dense airspace consolidation in the posterior basilar segment of the lower lobe of the right lung. There is patchy peribronchial consolidation throughout both lungs. There is peribronchial scarring in the lingula and in the middle lobe of the right lung. There is mild basilar predominant chronic interstitial lung disease with subpleural reticulation. There is a small right pleural effusion. IMPRESSION: 1. Interval development of dense airspace consolidation in the lower lobe of the right lung and patchy peribronchial consolidation throughout both lungs consistent with a multifocal pneumonia. 2. There is a small right pleural effusion. 3. Reactive mediastinal lymph nodes. 4. Cardiomegaly. Pacemaker 5. Calcific vascular disease of the thoracoabdominal aorta and coronary arteries. 6. Moderate splenomegaly. There are 2 low-density foci in the spleen, not significantly changed. Probable hemangiomas. <Electronically signed by Nacho Jaramillo > 01/27/21 [id number]
[2021-01-27] MEDS: PERCOCET 5MG/325MG TAB PO PRN ×2 (13:14→21:23)
[2021-01-27 16:00] VITALS: BP 107/51
[2021-01-27] MEDS: RIVAROXABAN 15 MG TAB (XARELTO) PO SCH (17:26)
[2021-01-27 20:00] VITALS: BP 117/53
[2021-01-28] VITALS (8 sets, daily range): BP systolic 104–128; BP diastolic 50–66; O2SAT 92–98
[2021-01-28] MEDS: DOXYCYCLINE HYCLATE 100 MG in D5W MINI-BAG PLUS 100 ML IV SCH (00:48)
--- NOTE | 2021-01-28 05:14 | ECGEPIP ---
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
[2021-01-28 06:20] LABS: BASO % 0.1 % (0.0-1.0); EOS % 0.3 % (0.0-3.0); HEMATOCRIT 30.5 % (36.0-47.0); HEMOGLOBIN 9.4 g/dl (12.0-15.5); LYMPH # 1.1 10^3/uL (1.5-5.0); LYMPH % 8.3 % (24.0-44.0); MEAN CORPUSCULAR HEMOGLOBIN 27.8 pg (27.0-33.0); MEAN CORPUSCULAR HGB CONC 30.8 g/dl (32.0-36.5); MEAN CORPUSCULAR VOLUME 90.2 fl (80.0-96.0); MONO # 0.5 10^3/uL (0.0-0.8); NEUTROPHILS # 11.5 10^3/uL (1.5-8.5); NEUTROPHILS % 85.8 % (36.0-66.0); PLATELET COUNT, AUTOMATED 146 10^3/uL (150-450); RED BLOOD COUNT 3.38 10^6/uL (4.00-5.40); WHITE BLOOD COUNT 13.4 10^3/uL (4.0-10.0)
[2021-01-28 06:40] LABS: ALBUMIN 2.3 GM/DL (3.2-5.2); BILIRUBIN,TOTAL 0.5 MG/DL (0.2-1.0); CALCIUM LEVEL 8.4 MG/DL (8.8-10.2); CREATININE FOR GFR 1.71 MG/DL (0.55-1.30); GLOMERULAR FILTRATION RATE 30.7 (>39); MAGNESIUM LEVEL 2.3 MG/DL (1.8-2.4); POTASSIUM SERUM 3.6 MEQ/L (3.5-5.1); TOTAL PROTEIN 5.7 GM/DL (6.4-8.2)
[2021-01-28] MEDS: HumaLOG INSULIN (NovoLOG) PER UNIT SC SCH ×4 (07:30→21:00)
[2021-01-28] MEDS: POTASSIUM CHLORIDE 10MEQ SR TABLET PO SCH (08:55)
[2021-01-28] MEDS: CitaloPRAM (CeleXA) 20 MG TAB PO SCH (08:55)
[2021-01-28] MEDS: MAGNESIUM OXIDE 400MG TAB (MAG-OX) PO SCH (08:55)
[2021-01-28] MEDS: SPIRONOLACTONE 25 MG TAB PO SCH (08:55)
[2021-01-28] MEDS: buPROPion **XL** TABLET 150MG (WELLBUTRIN XL) PO SCH (08:55)
[2021-01-28] MEDS: IRON POLYSAC (NIFEREX) 150 MG CAP PO SCH ×2 (09:00→21:00)
--- NOTE | 2021-01-28 10:56 | IPNPDOC ---
Text Note Date of Service The patient was seen on 01/28/21. NOTE Subjective: No new acute events overnight. Patient's breathing on her baseline Objective: GENERAL APPEARANCE: NAD HEENT: no scleral icterus, plus JVD, EOMI CARDIOVASCULAR: Irregularly irregular LUNGS: Diminished lung sounds bilaterally ABDOMEN: soft & not tender w palpation MUSCULOSKELETAL: no cyanosis, left distal leg moderate erythema, +1 swelling of both lower extremities INTEGUMENT: no generalized pallor NEUROLOGICAL: cranial nerve function from 2-12 intact, follows commands, speech not dysarthric Assessment plan Patient 80 years old female with past medical history of diastolic CHF, COPD, type 2 diabetes, CKD presented to hospital with increased shortness of breath. Patient was found to have bilateral pleural effusion, elevated BNP and leukocytosis Acute diastolic CHF exacerbation/dyspnea Patient's oxygen requirements improved BNP elevated, chest x-ray shows bilateral lateral pleural effusion and elevated BNP Continue diuresis with Lasix IV I's and O's Await echo Community-acquired pneumonia CT chest shows 1. Interval development of dense airspace consolidation in the lower lobe of the right lung and patchy peribronchial consolidation throughout both lungs consistent with a multifocal pneumonia. 2. There is a small right pleural effusion. Patient has elevated procalcitonin Continue ceftriaxone IV, doxycycline IV day 1 Leukocytosis improved Atrial fibrillation Continue with Xarelto Heart rate under control Acute on chronic CKD Most likely secondary to volume overload Continue to monitor Improved Left leg cellulitis/leukocytosis/lactic acidosis Improved today Antibiotic therapy for community-acquired pneumonia will cover left leg cellulitis as well blood culture negative Lactic acidosis resolved COPD Not in acute exacerbation Continue home inhalers Normocytic anemia - Hx of iron deficiency anemia superimposed with anemia of chronic diseases Iron panel shows low iron, started iron supplementation B12, folate, stool for occult blood pending Type 2 diabetes Insulin sliding scale Diabetes diet EDGARD noncompliant w/CPAP, settings unknown - 12/2019 sleep study shows EDGARD - Food Services Manager on appropriate CPAP use and importance of compliance Nicotine use disorder -Continue bupropion Depression/anxiety -Continue citalopram Follow-up with psychiatrist in the outpatient settings Morbid obesity - Complicating care DVT prophylaxis with Xarelto VS,Fishbone, I+O VS, Fishbone, I+O Laboratory Tests 01/27/21 10:53 01/28/21 05:42 Vital Signs Date Time Temp Pulse Resp B/P (MAP) Pulse Ox O2 Delivery O2 Flow Rate FiO2 01/28/21 08:54 78 108/66 01/28/21 08:16 96.8 20 97 Nasal Cannula 2.0 I&O- Last 24 Hours up to 6 AM 01/28/21 06:00 Intake Total 1050 ml Output Total 1975 ml Balance -925 ml LIZZ ÁLVAREZ DO Jan 28, 2021 10:56
[2021-01-28] MEDS: DOXYCYCLINE HYCLATE 100MG TABLET PO SCH (11:48)
[2021-01-28] MEDS ORDERED: LevoFLOXacin 500 MG TABLET PO ONE (12:00)
[2021-01-28] MEDS ORDERED: POTASSIUM CHLORIDE 10MEQ SR TABLET PO ONE (12:00)
[2021-01-28] MEDS: TORSEMIDE 20 MG TAB PO SCH ×2 (12:26→16:12)
[2021-01-28] MEDS: PERCOCET 5MG/325MG TAB PO PRN (16:13)
[2021-01-28] MEDS: RIVAROXABAN 15 MG TAB (XARELTO) PO SCH (17:03)
--- NOTE | 2021-01-28 22:35 | ECHO ---
ECHOCARDIOGRAM DATE OF PROCEDURE: 01/27/2021 Age: 80 Gender: Female Height: 60 inches Weight: 213 pounds Body surface area 1.92 m2 PATIENT LOCATION: Inpatient, progressive care unit (PCU), Room 3226. REFERRING PROVIDER: Yuri Cohen D.O. INDICATION: Congestive heart failure (CHF). MEASUREMENTS: 2D Measurements: RV 3.8 cm LV 5.1 cm Septum 1.1 cm Posterior wall 1.1 cm Aortic root 3.4 cm LA 3.8 cm LVEF 75% Doppler Measurements: AV 1.42 m/sec LVOT 1.02 m/sec LVOT diameter 1.8 cm MV-E 91, A 91, EA ratio 1 Early mitral deceleration time 192 msec E prime medial 6.5 A prime medial 9.8 E prime lateral 6.6 Average E/E prime ratio 13.9/PCWP 19 mmHg PV 0.95 m/sec Pulmonary artery acceleration time 116 msec PASP - 30 mmHg IVC 1.8 cm COMMENTS: Normal sinus rhythm without intraventricular conduction disturbance (per admission EKG was read as showing atrial fibrillation and this is incorrect). Technically challenging study in light of the patient's body habitus, but diagnostically useful information was still obtained. M-mode and 2-dimensional cardiography was performed with pulse, continuous wave, color flow and tissue Doppler studies. Left ventricular wall thickness was upper limits of normal with normal left ventricular size and hyperkinetic wall motion. Left atrial size upper limits of normal with grade 1 left ventricular (LV) diastolic dysfunction and only slightly elevated estimated mean left atrial pressure. Normal right heart chamber sizes and motion with estimated pulmonary arterial pressure of borderline increase. Normal inferior vena cava (IVC) size and collapse against an elevated central venous pressure. Normal aortic dimensions. Slight aortic valvular sclerosis without functional abnormality. Marginal thickening of the mitral annulus, but normal leaflet thickness and excursion with very mild, posteriorly directed insufficiency. Normal appearing and functioning tricuspid valve with only trace to very mild insufficiency. No apparent intracardiac mass or pericardial effusion.
[2021-01-29] VITALS (12 sets, daily range): BP systolic 100–138; BP diastolic 51–80; O2SAT 88–97
[2021-01-29] MEDS: PERCOCET 5MG/325MG TAB PO PRN ×2 (03:31→12:09)
[2021-01-29 04:30] LABS: BASO % 0.3 % (0.0-1.0); EOS # 0.3 10^3/uL (0.0-0.5); EOS % 2.4 % (0.0-3.0); HEMATOCRIT 32.6 % (36.0-47.0); HEMOGLOBIN 10.4 g/dl (12.0-15.5); LYMPH # 1.5 10^3/uL (1.5-5.0); LYMPH % 11.3 % (24.0-44.0); MEAN CORPUSCULAR HEMOGLOBIN 28.3 pg (27.0-33.0); MEAN CORPUSCULAR HGB CONC 31.9 g/dl (32.0-36.5); MEAN CORPUSCULAR VOLUME 88.8 fl (80.0-96.0); MONO # 0.6 10^3/uL (0.0-0.8); MONO % 4.7 % (2.0-8.0); NEUTROPHILS # 10.6 10^3/uL (1.5-8.5); NEUTROPHILS % 79.9 % (36.0-66.0); PLATELET COUNT, AUTOMATED 185 10^3/uL (150-450); RED BLOOD COUNT 3.67 10^6/uL (4.00-5.40); WHITE BLOOD COUNT 13.3 10^3/uL (4.0-10.0)
[2021-01-29 04:58] LABS: ALBUMIN 2.6 GM/DL (3.2-5.2); BILIRUBIN,TOTAL 0.5 MG/DL (0.2-1.0); CALCIUM LEVEL 8.5 MG/DL (8.8-10.2); CREATININE FOR GFR 1.66 MG/DL (0.55-1.30); GLOMERULAR FILTRATION RATE 31.7 (>39); POTASSIUM SERUM 4.4 MEQ/L (3.5-5.1); TOTAL PROTEIN 5.4 GM/DL (6.4-8.2)
[2021-01-29] MEDS ORDERED: LevoFLOXacin 750 MG TABLET PO SCH (06:00)
[2021-01-29] MEDS: HumaLOG INSULIN (NovoLOG) PER UNIT SC SCH ×4 (07:30→20:46)
[2021-01-29] MEDS: TORSEMIDE 20 MG TAB PO SCH ×2 (08:58→17:52)
[2021-01-29] MEDS: CitaloPRAM (CeleXA) 20 MG TAB PO SCH (08:58)
[2021-01-29] MEDS: MAGNESIUM OXIDE 400MG TAB (MAG-OX) PO SCH (08:58)
[2021-01-29] MEDS: buPROPion **XL** TABLET 150MG (WELLBUTRIN XL) PO SCH (08:58)
[2021-01-29] MEDS: SPIRONOLACTONE 25 MG TAB PO SCH (08:59)
[2021-01-29] MEDS: POTASSIUM CHLORIDE 10MEQ SR TABLET PO SCH (08:59)
[2021-01-29] MEDS: IRON POLYSAC (NIFEREX) 150 MG CAP PO SCH ×2 (09:00→20:46)
--- NOTE | 2021-01-29 11:25 | IPNPDOC ---
Text Note Date of Service The patient was seen on 01/29/21. NOTE Subjective: No new acute events overnight. Patient stated that her breathing improved, she is on her baseline 2 L of oxygen Objective: GENERAL APPEARANCE: NAD HEENT: no scleral icterus, plus JVD, EOMI CARDIOVASCULAR: Irregularly irregular LUNGS: Diminished lung sounds bilaterally ABDOMEN: soft & not tender w palpation MUSCULOSKELETAL: no cyanosis, left distal leg moderate erythema, +1 swelling of both lower extremities INTEGUMENT: no generalized pallor NEUROLOGICAL: cranial nerve function from 2-12 intact, follows commands, speech not dysarthric Assessment plan Patient 80 years old female with past medical history of diastolic CHF, COPD, type 2 diabetes, CKD presented to hospital with increased shortness of breath. Patient was found to have bilateral pleural effusion, elevated BNP and leukocytosis Acute diastolic CHF exacerbation/dyspnea Patient's oxygen requirements improved BNP elevated, chest x-ray shows bilateral lateral pleural effusion and elevated BNP Continue diuresis with torsemide p.o. I's and O's echo shows ejection fraction of 75%, Left atrial size upper limits of normal with grade 1 left ventricular (LV) diastolic dysfunction and only slightly elevated estimated mean left atrial pressure. Community-acquired pneumonia CT chest shows 1. Interval development of dense airspace consolidation in the lower lobe of the right lung and patchy peribronchial consolidation throughout both lungs consistent with a multifocal pneumonia. 2. There is a small right pleural effusion. Patient has elevated procalcitonin Continue levofloxacin p.o. and doxycycline p.o. day 2 of antibiotic therapy Leukocytosis improved Patient was peripheral access yesterday we will place PICC line today Atrial fibrillation Continue with Xarelto Heart rate under control Acute on chronic CKD Most likely secondary to volume overload Continue to monitor Improved Left leg cellulitis/leukocytosis/lactic acidosis Improved today Antibiotic therapy for community-acquired pneumonia will cover left leg cellulitis as well blood culture negative Lactic acidosis resolved COPD Not in acute exacerbation Continue home inhalers Normocytic anemia - Hx of iron deficiency anemia superimposed with anemia of chronic diseases Iron panel shows low iron, started iron supplementation B12, folate within normal limit, stool for occult blood pending Type 2 diabetes Insulin sliding scale Diabetes diet EDGARD noncompliant w/CPAP, settings unknown - 12/2019 sleep study shows EDGARD - Chief Digital Media Officer on appropriate CPAP use and importance of compliance Nicotine use disorder -Continue bupropion Depression/anxiety -Continue citalopram Follow-up with psychiatrist in the outpatient settings Morbid obesity - Complicating care Deconditioning PT/OT DVT prophylaxis with Xarelto VS,Fishbone, I+O VS, Fishbone, I+O Laboratory Tests 01/29/21 04:15 Vital Signs Date Time Temp Pulse Resp B/P (MAP) Pulse Ox O2 Delivery O2 Flow Rate FiO2 01/29/21 10:00 96 Nasal Cannula 2.0 01/29/21 08:59 70 138/61 01/29/21 08:00 98.1 18 I&O- Last 24 Hours up to 6 AM 01/29/21 06:00 Intake Total 1400 ml Output Total 2825 ml Balance -1425 ml LIZZ ÁLVAREZ DO Jan 29, 2021 11:25
[2021-01-29] MEDS: DOXYCYCLINE HYCLATE 100MG TABLET PO SCH ×2 (12:09)
[2021-01-29] MEDS ORDERED: LIDOCAINE 1% MDV 20ML VIAL As Ordered ONE (12:21)
--- NOTE | 2021-01-29 16:22 | REP ---
PROCEDURE NAME: PICC LINE INSERTION W/SITERITE CLINICAL INFORMATION: Loss of peripheral access. COMPARISON: None. PROCEDURE DESCRIPTION: The procedure was performed by DIPAK Murrieta, under the direct supervision of Dr. Jaramillo. The risks and benefits of the procedure were explained to the patient and an informed consent was obtained both verbally and written. Directly prior to the start of the procedure a formal time-out was completed in the procedure room. The right basilic vein was localized using ultrasound guidance. The skin was prepped and draped in sterile fashion. Four mL of 1% lidocaine 10 mg/mL was used as a local anesthetic. Using ultrasound guidance the right basilic vein was cannulated, and a 0.018 guidewire was inserted and advanced to the level of SVC using fluoroscopic guidance. The needle was removed and a 6 Macedonian dilator and peel-away sheath was inserted over the guidewire. A 5.5 Macedonian dual lumen catheter was cut to a length of 40 cm. The dilator was removed and the catheter was inserted over the guidewire with the tip ending at the level of the SVC. The peel-away sheath was removed and the catheter was flushed with heparinized saline as per hospital protocol. The catheter was affixed to the skin and a sterile dressing was applied. The patient tolerated the procedure well and there were no immediate complications. CONCLUSION: PICC line insertion into the right basilic vein. 0.2 minutes of fluoroscopy time was utilized for this procedure. Some fluoroscopic images are performed with last image hold technology. These images require no additional radiation. <Electronically signed by Shea Gibbons > 01/29/21 1420 <Electronically signed by Nacho Jaramillo > 01/29/21 1617
[2021-01-29] MEDS: RIVAROXABAN 15 MG TAB (XARELTO) PO SCH (17:52)
[2021-01-30] VITALS: BP 127/63
[2021-01-30] MEDS: DOXYCYCLINE HYCLATE 100MG TABLET PO SCH ×2 (00:36→13:09)
[2021-01-30] MEDS: PERCOCET 5MG/325MG TAB PO PRN (00:36)
[2021-01-30 04:00] VITALS: BP 102/49
[2021-01-30 06:25] LABS: BASO % 0.3 % (0.0-1.0); EOS # 0.3 10^3/uL (0.0-0.5); EOS % 2.7 % (0.0-3.0); HEMATOCRIT 32.6 % (36.0-47.0); HEMOGLOBIN 10.3 g/dl (12.0-15.5); LYMPH # 1.6 10^3/uL (1.5-5.0); LYMPH % 17.4 % (24.0-44.0); MEAN CORPUSCULAR HEMOGLOBIN 27.9 pg (27.0-33.0); MEAN CORPUSCULAR HGB CONC 31.6 g/dl (32.0-36.5); MEAN CORPUSCULAR VOLUME 88.3 fl (80.0-96.0); MONO # 0.6 10^3/uL (0.0-0.8); MONO % 5.9 % (2.0-8.0); NEUTROPHILS # 6.8 10^3/uL (1.5-8.5); NEUTROPHILS % 71.8 % (36.0-66.0); PLATELET COUNT, AUTOMATED 156 10^3/uL (150-450); RED BLOOD COUNT 3.69 10^6/uL (4.00-5.40); WHITE BLOOD COUNT 9.4 10^3/uL (4.0-10.0)
[2021-01-30 06:56] LABS: ALBUMIN 2.6 GM/DL (3.2-5.2); BILIRUBIN,TOTAL 0.4 MG/DL (0.2-1.0); CALCIUM LEVEL 9.4 MG/DL (8.8-10.2); CREATININE FOR GFR 1.64 MG/DL (0.55-1.30); GLOMERULAR FILTRATION RATE 32.2 (>39); MAGNESIUM LEVEL 2.2 MG/DL (1.8-2.4); POTASSIUM SERUM 4.1 MEQ/L (3.5-5.1); TOTAL PROTEIN 5.9 GM/DL (6.4-8.2)
[2021-01-30] MEDS: HumaLOG INSULIN (NovoLOG) PER UNIT SC SCH ×2 (07:30→12:00)
[2021-01-30 07:45] VITALS: BP 111/59
[2021-01-30] MEDS: buPROPion **XL** TABLET 150MG (WELLBUTRIN XL) PO SCH (09:34)
[2021-01-30] MEDS: MAGNESIUM OXIDE 400MG TAB (MAG-OX) PO SCH (09:34)
[2021-01-30] MEDS: SPIRONOLACTONE 25 MG TAB PO SCH (09:34)
[2021-01-30] MEDS: IRON POLYSAC (NIFEREX) 150 MG CAP PO SCH (09:34)
[2021-01-30 09:35] VITALS: BP 112/59
[2021-01-30] MEDS: CitaloPRAM (CeleXA) 20 MG TAB PO SCH (09:35)
[2021-01-30] MEDS: POTASSIUM CHLORIDE 10MEQ SR TABLET PO SCH (09:35)
[2021-01-30] MEDS: TORSEMIDE 20 MG TAB PO SCH (09:35)
[2021-01-30] MEDS ORDERED: SODIUM CHLORIDE 0.9% INJ 10 ML SYR IV PRN (09:35)
[2021-01-30] MEDS ORDERED: DOXY100T PO (10:33)
[2021-01-30] MEDS ORDERED: LEVO750T13 PO (10:33)
[2021-01-30 12:00] VITALS: BP 101/62
[2021-01-30] MEDS ORDERED: METO25TA PO (14:58)
[2021-01-30] MEDS ORDERED: SODIUM CHLORIDE 0.9% INJ 10 ML SYR IV SCH (18:00)
--- NOTE | 2021-01-30 23:23 | DS.PDOC ---
Discharge Summary General Date of Admission Jan 26, 2021 at 22:26 Date of Discharge Jan 30, 2021 Discharge Summary PROCEDURES PERFORMED DURING STAY: None ADMITTING DIAGNOSES: 1. Acute decompensated heart failure with preserved ejection fraction 2. Community acquired pneumonia 3. Atrial fibrillation 4. Acute on chronic kidney disease 5. Left leg cellulitis 6. Type 2 DM 7. Nicotine use disorder 8. Depression/anxiety 9. Morbid obesity DISCHARGE DIAGNOSES: 1. Acute decompensated heart failure with preserved ejection fraction 2. Community acquired pneumonia 3. Atrial fibrillation 4. Acute on chronic kidney disease 5. Left leg cellulitis 6. Type 2 DM 7. Nicotine use disorder 8. Depression/anxiety 9. Morbid obesity COMPLICATIONS/CHIEF COMPLAINT: CHF. HISTORY OF PRESENT ILLNESS: Copied from admitting provider's H&P " Sana Stokes is a 80 year old female with a PMHx of COPD and HF who presented to the ED today due to a 24 hour hx of SOB, nausea, and vomiting. Patient reports difficulty breathing upon awakening today so severe she was unable to walk, due to this feeling she notes she slept in bed all day and when it worsened around 4PM she called EMS who brought her to the ED. Patient also reports nausea and recurrent dry heaving the night prior. Patient adds that sitting improved it slightly but denied any exacerbating factors. Patient also remarks on chronic productive cough that brings up whitish sputum that has been worse in this period. Prior to today patient reported feeling at baseline. She did comment on the fact that this feels similar to previous episodes of HF exacerbation. " HOSPITAL COURSE: On admission, patient required 6L of oxygen. Patient had [place] 9119 and she was diuresed using IV Lasix and transition to PO torsemide. Otherwise, patient's CT chest demonstrated multifocal pneumonia and an elevated procalcitonin. Patient was initially on ceftriaxone, but lost IV access. Patient was transitioned to PO levofloxacin. Patient was also on doxycycline for atypical coverage. Patient did well and was eventually weaned off of oxygen. Today, she felt well and felt ready for home. Patient was discharged home with 3 more days of doxycycline and levofloxacin to make 5 days of antibiotics. DISCHARGE MEDICATIONS: Please see below. ALLERGIES: Please see below. PHYSICAL EXAMINATION ON DISCHARGE: VITAL SIGNS: Please see below. GENERAL: Comfortable, in no apparent distress. HEENT: Head normocephalic/atraumatic, EOMI, sclera clear. NECK: Supple. RESPIRATORY: Lungs clear to auscultation bilaterally. CARDIOVASCULAR: Regular rate and irregular rhythm. ABDOMEN: Soft, nontender, no guarding or rebound tenderness. Normal bowel sounds. NEUROLOGICAL: CN 312 grossly intact, no focal deficits noted. PSYCHOLOGICAL: Normal mood and affect LABORATORY DATA: Please see below. IMAGING: Radiologist interpretation CT chest without contrast 1. Interval development of dense airspace consolidation in the lower lobe of the right lung and patchy peribronchial consolidation throughout both lungs consistent with a multifocal pneumonia. 2. There is a small right pleural effusion. 3. Reactive mediastinal lymph nodes. 4. Cardiomegaly. Pacemaker 5. Calcific vascular disease of the thoracoabdominal aorta and coronary arteries. 6. Moderate splenomegaly. There are 2 low-density foci in the spleen, not significantly changed. Probable hemangiomas. PROGNOSIS: Good ACTIVITY: As tolerated. DIET: Carbohydrate consistent diet and 2gm sodium diet DISCHARGE PLAN: Return to home. Please take antibiotics to completions. Sent patient home with metolazone to be used per CHF readmission prevention protocol. DISPOSITION: Home Health Service. DISCHARGE INSTRUCTIONS: 1. Follow up with PCP within 1 week ITEMS TO FOLLOWUP ON ON OUTPATIENT: 1. Weight (dry weight) DISCHARGE CONDITION: Stable Total time spent on discharge planning, discharge summary, and medication reconciliation: 35 minutes Vital Signs/I&Os Vital Signs Date Time Temp Pulse Resp B/P (MAP) Pulse Ox O2 Delivery O2 Flow Rate FiO2 01/30/21 12:00 97.6 72 20 101/62 (75) 95 Room Air 01/30/21 07:45 I&O- Last 24 Hours up to 6 AM 01/30/21 06:00 Intake Total 1100 ml Output Total 1950 ml Balance -850 ml Laboratory Data Labs 24H Laboratory Tests 2 01/30/21 06:05: Immature Granulocyte % (Auto) 1.9, Neutrophils (%) (Auto) 71.8H, Lymphocytes (%) (Auto) 17.4L, Monocytes (%) (Auto) 5.9, Eosinophils (%) (Auto) 2.7, Basophils (%) (Auto) 0.3, Neutrophils # (Auto) 6.8, Lymphocytes # (Auto) 1.6, Monocytes # (Auto) 0.6, Eosinophils # (Auto) 0.3, Basophils # (Auto) 0.0, Nucleated Red Blood Cells % (auto) 0.0, Anion Gap 6L, Glomerular Filtration Rate 32.2L, Calcium Level 9.4, Magnesium Level 2.2, Total Bilirubin 0.4, Aspartate Amino Transf (AST/SGOT) 5L, Alanine Aminotransferase (ALT/SGPT) 12, Alkaline Phosphatase 63, Total Protein 5.9L, Albumin 2.6L, Albumin/Globulin Ratio 0.8L CBC/BMP Laboratory Tests 01/30/21 06:05 Microbiology Microbiology 01/26/21 Blood Culture - Preliminary, Resulted No Growth after 72 hours. All specime... 01/26/21 Blood Culture - Preliminary, Resulted No Growth after 72 hours. All specime... 01/26/21 Respiratory Virus Panel (PCR) ([facility]ILE[facility]) - Final, Complete Discharge Medications Scheduled Bupropion Hcl (Bupropion Xl) 150 Mg Tab, 150 MG PO DAILY, (Reported) Citalopram Hydrobromide (Celexa) 40 Mg Tab, 40 MG PO DAILY, (Reported) Diltiazem HCl (Diltiazem HCl) 60 Mg Tablet, 60 MG PO DAILY, (Reported) Doxycycline Hyclate (Doxycycline Hyclate) 100 Mg Tablet, 100 MG PO BID Levofloxacin (Levofloxacin) 750 Mg Tablet, 750 MG PO Q48H Take morning of 01/31 and 02/02 Magnesium Oxide (Magnesium Oxide) 400 Mg Tablet, 400 MG PO DAILY, (Reported) Metformin HCl (Metformin HCl) 500 Mg Tablet, 500 MG PO QPM, (Reported) DINNER Nystatin (Nystatin) 15 Gm Cream..g., 1 APPLIC TOP BID, (Reported) ABDOMINAL FOLDS Potassium Chloride (Potassium Chloride) 20 Meq Tablet.er, 20 MEQ PO DAILY, (Reported) Rivaroxaban (Xarelto) 15 Mg Tablet, 15 MG PO DAILY, (Reported) Spironolactone (Spironolactone) 25 Mg Tablet, 25 MG PO DAILY, (Reported) Torsemide (Torsemide) 20 Mg Tablet, 20 MG PO DAILY, (Reported) Scheduled PRN Acetaminophen (Acetaminophen) 325 Mg Tablet, 650 MG PO Q6H PRN for PAIN, (Reported) Albuterol Sulfate (Proair Hfa) 108 Mcg/Act Aer, 2 PUFF INH Q4H PRN for SOB/WHEEZING, (Reported) Metolazone (Metolazone) 2.5 Mg Tablet, 1 TAB PO ONCE PRN for used for CHF protocol To be used for CHF protocol Oxycodone/Acetaminophen (Oxycodone-Acetaminophen 5-325) 1 Each Tablet, 1 TAB PO QID PRN for pain, (Reported) Allergies Coded Allergies: Penicillins (Verified Allergy, Mild, RASH, 01/23/21) Sulfa (Sulfonamide Antibiotics) (Verified Allergy, Mild, RASH, 01/23/21) clindamycin (Verified Allergy, Mild, RASH, 01/23/21) codeine (Verified Adverse Reaction, Mild, STOMACH UPSET, RASH, 01/23/21) meperidine (Verified Adverse Reaction, Mild, STOMACH UPSET, RASH, 01/23/21) SHIRLEY PARRA DO Jan 30, 2021 23:23
== END 2021-01-30 15:48 | disposition home health service (06) | DRG 193 ==
LOC: M ED 17:55 → M ED INP 22:26 → M PCU 01-27 03:06
PROVIDERS: ADMIT Family Medicine; ATTEND Internal Medicine
PROC: 02HV33Z Insertion of Infusion Device into Superior Vena Cava, Percutaneous Approach (ICD-10-PCS; principal; 2021-01-29 15:00)
DX: J18.9 Pneumonia, unspecified organism (principal); I50.33 Acute on chronic diastolic (congestive) heart failure; I13.0 Hypertensive heart and chronic kidney disease with heart failure and stage 1 through stage 4 chronic kidney disease, or unspecified chronic kidney disease; L03.116 Cellulitis of left lower limb; J44.0 Chronic obstructive pulmonary disease with (acute) lower respiratory infection; E87.2 Acidosis; E11.22 Type 2 diabetes mellitus with diabetic chronic kidney disease; N18.9 Chronic kidney disease, unspecified; I48.91 Unspecified atrial fibrillation; G47.33 Obstructive sleep apnea (adult) (pediatric); D63.1 Anemia in chronic kidney disease; F41.9 Anxiety disorder, unspecified; F32.A Depression, unspecified; I49.5 Sick sinus syndrome; Z95.0 Presence of cardiac pacemaker; F17.200 Nicotine dependence, unspecified, uncomplicated; E66.01 Morbid (severe) obesity due to excess calories; Z90.79 Acquired absence of other genital organ(s); Z90.49 Acquired absence of other specified parts of digestive tract; Z20.822 Contact with and (suspected) exposure to COVID-19; D72.829 Elevated white blood cell count, unspecified; Z91.19 Patient's noncompliance with other medical treatment and regimen; Z79.84 Long term (current) use of oral hypoglycemic drugs; Z79.899 Other long term (current) drug therapy; Z88.0 Allergy status to penicillin; Z88.1 Allergy status to other antibiotic agents; Z88.2 Allergy status to sulfonamides; Z88.5 Allergy status to narcotic agent; Z88.8 Allergy status to other drugs, medicaments and biological substances

== ENCOUNTER 2021-03-25 22:03 | Emergency (ER) | payer MEDICARE, OTHER ==
[~2021-03-25 22:03] MED LIST changes: -AMIO200T3 PO; +AMIO200T49 PO; -FLUC100T PO; +FLUC100T3 PO; -LEVO250T12 PO; +LEVO250T3 PO; -LISI-898 PO; +LISI5TAB11 PO; +MAGN400T33 PO; +NYST10CR TOP; +POTA-151 PO; -POTA20TA6 PO; +TIZA10TA PO; -TIZA4TAB4 PO
[2021-03-25] MEDS ORDERED: MORPHINE 2 MG/ML 1ML VIAL (J2270) IV ONE (22:15)
[2021-03-25] MEDS ORDERED: ONDANSETRON 4MG/2ML VIAL IV ONE (22:15)
[2021-03-25 23:14] LABS: BASO % 0.4 % (0.0-1.0); EOS # 0.4 10^3/uL (0.0-0.5); EOS % 5.1 % (0.0-3.0); HEMATOCRIT 30.6 % (36.0-47.0); HEMOGLOBIN 9.4 g/dl (12.0-15.5); LYMPH # 1.1 10^3/uL (1.5-5.0); LYMPH % 14.8 % (24.0-44.0); MEAN CORPUSCULAR HEMOGLOBIN 27.4 pg (27.0-33.0); MEAN CORPUSCULAR HGB CONC 30.7 g/dl (32.0-36.5); MEAN CORPUSCULAR VOLUME 89.2 fl (80.0-96.0); MONO # 0.6 10^3/uL (0.0-0.8); MONO % 7.5 % (2.0-8.0); NEUTROPHILS # 5.2 10^3/uL (1.5-8.5); NEUTROPHILS % 71.8 % (36.0-66.0); PLATELET COUNT, AUTOMATED 115 10^3/uL (150-450); RED BLOOD COUNT 3.43 10^6/uL (4.00-5.40); WHITE BLOOD COUNT 7.3 10^3/uL (4.0-10.0)
[2021-03-25 23:25] LABS: INR 1.23; PARTIAL THROMBOPLASTIN TIME 25.8 SECONDS (25.9-37.0); PROTHROMBIN TIME 15.9 SECONDS (12.7-14.5)
[2021-03-25 23:43] LABS: ALBUMIN 3.1 GM/DL (3.2-5.2); BILIRUBIN,TOTAL 0.6 MG/DL (0.2-1.0); CALCIUM LEVEL 8.9 MG/DL (8.8-10.2); CREATININE FOR GFR 1.31 MG/DL (0.55-1.30); GLOMERULAR FILTRATION RATE 41.7 (>39); POTASSIUM SERUM 4.5 MEQ/L (3.5-5.1); TOTAL PROTEIN 5.4 GM/DL (6.4-8.2)
[2021-03-26 00:45] VITALS: BP 137/62
[2021-03-26] MEDS ORDERED: MORPHINE 2 MG/ML 1ML VIAL (J2270) IV ONE (00:50)
[2021-03-26] MEDS ORDERED: TRAM50TA2 PO (01:16)
== END 2021-03-26 02:02 | disposition home or self-care (01) ==
LOC: M ED 22:03
DX: S70.02XA Contusion of left hip, initial encounter (principal); W01.0XXA Fall on same level from slipping, tripping and stumbling without subsequent striking against object, initial encounter; Z88.0 Allergy status to penicillin; Z88.1 Allergy status to other antibiotic agents; Z88.2 Allergy status to sulfonamides; Z88.6 Allergy status to analgesic agent; Z88.8 Allergy status to other drugs, medicaments and biological substances; Z95.0 Presence of cardiac pacemaker
CPT/HCPCS: 70450; 71045; 72125; 72192; 73502; 73552; 74150; 80053; 83605; 84484; 85025; 85610; 85730; 93005; 96374; 99284; J2270; J2405

== ENCOUNTER → 2021-04-19 | Outpatient (REF) | payer MEDICARE, OTHER ==
[2021-04-19 19:13] LABS: FOLATE 4.4 NG/ML; PERCENT SATURATION 11.8 % (13.2-45.0)
== END ==
LOC: M LAB REF 16:43
PROVIDERS: ATTEND Internal Medicine Nephrology
DX: N18.32 Chronic kidney disease, stage 3b (principal); D50.9 Iron deficiency anemia, unspecified; D64.9 Anemia, unspecified

== ENCOUNTER 2021-05-02 16:16 | Inpatient (IN) | payer MEDICARE, OTHER ==
[~2021-05-02] VITALS: Ht 152.4 cm; Wt 96.7 kg
[2021-05-02] MEDS ORDERED: IPRA2IN NEB (16:48)
[2021-05-02] MEDS ORDERED: VENTAER INH (16:48)
[2021-05-02] MEDS ORDERED: FLUT50SP33 NARES (16:48)
[2021-05-02] MEDS ORDERED: BIMA01SOL OU (16:48)
[2021-05-02] MEDS ORDERED: METOCLOPRAMIDE INJ 10MG/2ML VIAL (J2765 PER 1) IV ONE (17:30)
[2021-05-02] MEDS ORDERED: MORPHINE 4 MG/ML 1ML VIAL/SYRINGE (J2270) IV ONE (17:30)
[2021-05-02 18:01] LABS: BASO % 0.5 % (0.0-1.0); EOS # 0.7 10^3/uL (0.0-0.5); EOS % 10.3 % (0.0-3.0); HEMATOCRIT 28.6 % (36.0-47.0); LYMPH # 1.1 10^3/uL (1.5-5.0); LYMPH % 17.5 % (24.0-44.0); MEAN CORPUSCULAR HEMOGLOBIN 28.5 pg (27.0-33.0); MEAN CORPUSCULAR HGB CONC 31.5 g/dl (32.0-36.5); MEAN CORPUSCULAR VOLUME 90.5 fl (80.0-96.0); MONO # 0.7 10^3/uL (0.0-0.8); MONO % 10.7 % (2.0-8.0); NEUTROPHILS # 3.9 10^3/uL (1.5-8.5); NEUTROPHILS % 60.8 % (36.0-66.0); PLATELET COUNT, AUTOMATED 111 10^3/uL (150-450); RED BLOOD COUNT 3.16 10^6/uL (4.00-5.40); WHITE BLOOD COUNT 6.3 10^3/uL (4.0-10.0)
[2021-05-02 18:11] LABS: INR 3.04; PROTHROMBIN TIME 31.8 SECONDS (12.7-14.5)
[2021-05-02 18:12] LABS: PARTIAL THROMBOPLASTIN TIME 59.1 SECONDS (25.9-37.0)
[2021-05-02 18:30] LABS: BILIRUBIN,DIRECT 0.3 MG/DL (0.0-0.2); BILIRUBIN,TOTAL 0.8 MG/DL (0.2-1.0); CALCIUM LEVEL 9.6 MG/DL (8.8-10.2); CREATININE FOR GFR 1.32 MG/DL (0.55-1.30); GLOMERULAR FILTRATION RATE 41.3 (>39); POTASSIUM SERUM 4.2 MEQ/L (3.5-5.1); TOTAL PROTEIN 5.4 GM/DL (6.4-8.2)
[2021-05-02] MEDS ORDERED: ISOVUE-370 76% 100ML VIAL As Ordered ONE (18:37)
[2021-05-02] MEDS: HumaLOG INSULIN (NovoLOG) PER UNIT SC SCH (21:00)
[2021-05-02 23:20] LABS: RSV AMPLIFICATION NEGATIVE (NEGATIVE)
[2021-05-02] MEDS ORDERED: GLUCOSE 4GM CHEW TABLET PO PRN (23:25)
[2021-05-02] MEDS ORDERED: PERCOCET 5MG/325MG TAB PO PRN (23:25)
[2021-05-02] MEDS ORDERED: ACETAMINOPHEN TAB 650MG DOSE (2X325MG) PO PRN (23:25)
[2021-05-02] MEDS ORDERED: DEXTROSE 50% 50 ML SYRINGE IV PRN (23:25)
[2021-05-02] MEDS ORDERED: GLUCAGON INJ 1MG VIAL SC PRN (23:25)
[2021-05-03] VITALS (8 sets, daily range): BP systolic 101–122; BP diastolic 51–61
[2021-05-03] MEDS ORDERED: FLON1SPR (00:48)
[2021-05-03] MEDS ORDERED: IPRA0.00 INH (00:48)
[2021-05-03] MEDS ORDERED: PERCOCET PO (00:48)
[2021-05-03] MEDS ORDERED: ALBU8.5H INH (00:48)
[2021-05-03] MEDS ORDERED: SPIR50TA4 PO (00:48)
[2021-05-03] MEDS ORDERED: BIMA01SOL OU (00:48)
[2021-05-03] MEDS ORDERED: NYST10CR EXT (00:48)
[2021-05-03] MEDS ORDERED: HOME MED LIST COMPLETE! XX SCH (00:50)
[2021-05-03] MEDS ORDERED: ALBUTEROL 90 MCG/ACT 8GM HFA INHALER INH PRN (01:35)
[2021-05-03] MEDS ORDERED: IPRATROPIUM 0.5MG/ALBUTEROL 2.5MG INH SOL UD 3ML (DUONEB) INH PRN (01:35)
[2021-05-03] MEDS: NYSTATIN 100,000 UNITS/GM TOPICAL PWD 15 GM TOP SCH ×3 (04:01→21:00)
[2021-05-03 04:47] LABS: BASO % 0.4 % (0.0-1.0); EOS # 0.5 10^3/uL (0.0-0.5); EOS % 10.2 % (0.0-3.0); HEMATOCRIT 24.9 % (36.0-47.0); HEMOGLOBIN 7.8 g/dl (12.0-15.5); LYMPH # 0.8 10^3/uL (1.5-5.0); LYMPH % 17.4 % (24.0-44.0); MEAN CORPUSCULAR HEMOGLOBIN 28.4 pg (27.0-33.0); MEAN CORPUSCULAR HGB CONC 31.3 g/dl (32.0-36.5); MEAN CORPUSCULAR VOLUME 90.5 fl (80.0-96.0); MONO # 0.5 10^3/uL (0.0-0.8); MONO % 11.5 % (2.0-8.0); NEUTROPHILS # 2.8 10^3/uL (1.5-8.5); NEUTROPHILS % 60.3 % (36.0-66.0); PLATELET COUNT, AUTOMATED 102 10^3/uL (150-450); RED BLOOD COUNT 2.75 10^6/uL (4.00-5.40); WHITE BLOOD COUNT 4.6 10^3/uL (4.0-10.0)
[2021-05-03 05:06] LABS: CREATININE FOR GFR 1.51 MG/DL (0.55-1.30); GLOMERULAR FILTRATION RATE 35.4 (>39); POTASSIUM SERUM 4.2 MEQ/L (3.5-5.1)
[2021-05-03 05:07] LABS: CALCIUM LEVEL 9.2 MG/DL (8.8-10.2)
[2021-05-03 07:47] LABS: C REACTIVE PROTEIN QUANTITATIV 3.63 MG/DL (0.00-0.30)
[2021-05-03] MEDS: HumaLOG INSULIN (NovoLOG) PER UNIT SC SCH ×4 (08:07→20:59)
[2021-05-03] MEDS: PERCOCET 5MG/325MG TAB PO PRN ×2 (08:08→15:47)
[2021-05-03] MEDS: MAGNESIUM OXIDE 400MG TAB (MAG-OX) PO SCH (08:09)
[2021-05-03] MEDS: buPROPion **XL** TABLET 150MG (WELLBUTRIN XL) PO SCH (08:09)
[2021-05-03] MEDS: CitaloPRAM (CeleXA) 20 MG TAB PO SCH (08:09)
[2021-05-03] MEDS: FLUTICASONE PROP 0.05% NASAL SPRAY 16 GM (FLONASE) SCH (08:13)
[2021-05-03] MEDS: MUPIROCIN 2% OINT 22 GM TUBE TOP SCH ×3 (08:13→21:00)
[2021-05-03 15:17] LABS: HEMATOCRIT 27.7 % (36.0-47.0); HEMOGLOBIN 8.6 g/dl (12.0-15.5)
[2021-05-03] MEDS ORDERED: RIVAROXABAN 15 MG TAB (XARELTO) PO SCH (18:00)
[2021-05-03 20:09] LABS: HEMATOCRIT 30.4 % (36.0-47.0); HEMOGLOBIN 9.3 g/dl (12.0-15.5)
[2021-05-04 04:00] VITALS: BP 124/58
[2021-05-04] MEDS: PERCOCET 5MG/325MG TAB PO PRN (04:44)
[2021-05-04 06:07] LABS: HEMATOCRIT 28.7 % (36.0-47.0); MEAN CORPUSCULAR HEMOGLOBIN 28.8 pg (27.0-33.0); MEAN CORPUSCULAR HGB CONC 31.4 g/dl (32.0-36.5); PLATELET COUNT, AUTOMATED 107 10^3/uL (150-450); RED BLOOD COUNT 3.12 10^6/uL (4.00-5.40); WHITE BLOOD COUNT 5.3 10^3/uL (4.0-10.0)
[2021-05-04 06:23] LABS: ALBUMIN 2.9 GM/DL (3.2-5.2); BILIRUBIN,TOTAL 0.6 MG/DL (0.2-1.0); CALCIUM LEVEL 9.6 MG/DL (8.8-10.2); CREATININE FOR GFR 1.49 MG/DL (0.55-1.30); GLOMERULAR FILTRATION RATE 35.9 (>39); POTASSIUM SERUM 4.7 MEQ/L (3.5-5.1); TOTAL PROTEIN 5.1 GM/DL (6.4-8.2)
[2021-05-04 06:24] LABS: MAGNESIUM LEVEL 1.9 MG/DL (1.8-2.4)
[2021-05-04] MEDS ORDERED: diphenhydrAMINE 25MG CAP PO PRN (07:55)
[2021-05-04 08:30] VITALS: BP 111/53
[2021-05-04] MEDS ORDERED: PREVNAR 13 VACCINE SYRINGE IM ONE (09:00)
[2021-05-04] MEDS: NYSTATIN 100,000 UNITS/GM TOPICAL PWD 15 GM TOP SCH (09:25)
[2021-05-04] MEDS: buPROPion **XL** TABLET 150MG (WELLBUTRIN XL) PO SCH (09:26)
[2021-05-04] MEDS: CitaloPRAM (CeleXA) 20 MG TAB PO SCH (09:26)
[2021-05-04] MEDS: MAGNESIUM OXIDE 400MG TAB (MAG-OX) PO SCH (09:26)
[2021-05-04] MEDS: HumaLOG INSULIN (NovoLOG) PER UNIT SC SCH (09:26)
[2021-05-04] MEDS: FLUTICASONE PROP 0.05% NASAL SPRAY 16 GM (FLONASE) SCH (09:26)
== END 2021-05-04 11:37 | DRG 536 ==
LOC: EDBD 16:16 → M ED 16:16 → M ED INP 21:37 → ENRESERV 05-03 01:40 → M PCU 05-03 02:30
PROVIDERS: ADMIT Internal Medicine; ATTEND Family Medicine
DX: S32.402A Unspecified fracture of left acetabulum, initial encounter for closed fracture (principal); E87.2 Acidosis; K91.872 Postprocedural seroma of a digestive system organ or structure following a digestive system procedure; Z68.41 Body mass index [BMI] 40.0-44.9, adult; I48.91 Unspecified atrial fibrillation; E11.22 Type 2 diabetes mellitus with diabetic chronic kidney disease; Z79.4 Long term (current) use of insulin; J44.9 Chronic obstructive pulmonary disease, unspecified; I27.81 Cor pulmonale (chronic); N18.32 Chronic kidney disease, stage 3b; I49.5 Sick sinus syndrome; Z95.0 Presence of cardiac pacemaker; D63.1 Anemia in chronic kidney disease; Z85.3 Personal history of malignant neoplasm of breast; Z92.3 Personal history of irradiation; Z87.891 Personal history of nicotine dependence; E66.01 Morbid (severe) obesity due to excess calories; D69.6 Thrombocytopenia, unspecified; R16.1 Splenomegaly, not elsewhere classified; F41.9 Anxiety disorder, unspecified; F32.A Depression, unspecified; R91.8 Other nonspecific abnormal finding of lung field; K46.9 Unspecified abdominal hernia without obstruction or gangrene; L30.4 Erythema intertrigo; D72.10 Eosinophilia, unspecified; K74.60 Unspecified cirrhosis of liver; I12.9 Hypertensive chronic kidney disease with stage 1 through stage 4 chronic kidney disease, or unspecified chronic kidney disease; Z20.822 Contact with and (suspected) exposure to COVID-19; Z79.899 Other long term (current) drug therapy; Z79.01 Long term (current) use of anticoagulants; Z88.0 Allergy status to penicillin; Z88.1 Allergy status to other antibiotic agents; Z88.2 Allergy status to sulfonamides; Z88.8 Allergy status to other drugs, medicaments and biological substances; W19.XXXA Unspecified fall, initial encounter; Y93.9 Activity, unspecified; Y99.9 Unspecified external cause status; Y92.9 Unspecified place or not applicable

== ENCOUNTER → 2021-05-29 | Outpatient (REF) | payer MEDICARE, OTHER ==
[~2021-05-29] MED LIST changes: +ACET-683 PO; +ALBU8.5H INH; +CLAR10TA7 PO; +FLUT50SP33 NARES; +GABA-1171 PO; +HYDR-3363 PO; +IPRA2IN NEB; +MELO7.5T35 PO; +NYST10CR EXT; +SPIR50TA4 PO; +TORS100T PO; +VENTAER INH
[2021-05-29 11:59] LABS: HEMATOCRIT 29.5 % (36.0-47.0); HEMOGLOBIN 9.1 g/dl (12.0-15.5); MEAN CORPUSCULAR HEMOGLOBIN 28.2 pg (27.0-33.0); MEAN CORPUSCULAR HGB CONC 30.8 g/dl (32.0-36.5); MEAN CORPUSCULAR VOLUME 91.3 fl (80.0-96.0); PLATELET COUNT, AUTOMATED 103 10^3/uL (150-450); RED BLOOD COUNT 3.23 10^6/uL (4.00-5.40); WHITE BLOOD COUNT 5.6 10^3/uL (4.0-10.0)
[2021-05-29 12:19] LABS: ALBUMIN 3.3 GM/DL (3.2-5.2); BILIRUBIN,DIRECT 0.2 MG/DL (0.0-0.2); BILIRUBIN,TOTAL 0.5 MG/DL (0.2-1.0); CALCIUM LEVEL 10.1 MG/DL (8.8-10.2); CREATININE FOR GFR 1.84 MG/DL (0.55-1.30); GLOMERULAR FILTRATION RATE 28.2 (>39); POTASSIUM SERUM 4.3 MEQ/L (3.5-5.1); TOTAL PROTEIN 5.6 GM/DL (6.4-8.2)
== END ==
PROVIDERS: ATTEND Physician Assistant
DX: R10.9 Unspecified abdominal pain (principal)

== ENCOUNTER → 2021-05-30 | Outpatient (CLI) | payer MEDICARE, OTHER | LOC: M RAD 12:39 | PROVIDERS: ATTEND Physician Assistant | DX: R10.9 Unspecified abdominal pain (principal) ==

== ENCOUNTER → 2021-06-14 | Outpatient (CLI) | payer MEDICARE, OTHER | LOC: M SOG 08:38 | PROVIDERS: ATTEND Orthopaedic Surgery Adult Reconstructive Orthopaedic Surgery | DX: R10.2 Pelvic and perineal pain (principal) ==

== ENCOUNTER → 2021-06-25 | Outpatient (REF) | payer MEDICAID, MEDICARE, OTHER ==
[~2021-06-25] MED LIST changes: +AMOX500T2 PO; +FLEEENE12 PR; +FLON1SPR NARES; +GABA-282 PO; +GLUC1KIT IM; +LORA-622 PO; +MILKSUS3 PO; +PANT-23 PO; +TORS10TA3 PO
[2021-06-25 13:48] LABS: HEMATOCRIT 30.3 % (36.0-47.0); HEMOGLOBIN 9.4 g/dl (12.0-15.5); MEAN CORPUSCULAR HEMOGLOBIN 28.6 pg (27.0-33.0); MEAN CORPUSCULAR VOLUME 92.1 fl (80.0-96.0); PLATELET COUNT, AUTOMATED 116 10^3/uL (150-450); RED BLOOD COUNT 3.29 10^6/uL (4.00-5.40); WHITE BLOOD COUNT 2.7 10^3/uL (4.0-10.0)
[2021-06-25 14:12] LABS: CALCIUM LEVEL 10.6 MG/DL (8.8-10.2); CREATININE FOR GFR 1.92 MG/DL (0.55-1.30); GLOMERULAR FILTRATION RATE 26.8 (>39); POTASSIUM SERUM 4.5 MEQ/L (3.5-5.1)
== END ==
PROVIDERS: ATTEND Internal Medicine
DX: I50.9 Heart failure, unspecified (principal); Z20.822 Contact with and (suspected) exposure to COVID-19

== ENCOUNTER → 2021-06-25 | Outpatient (CLI) | payer MEDICARE, OTHER, MEDICAID ==
[~2021-06-25] MED LIST changes: -AMOX500T2 PO; -FLEEENE12 PR; -FLON1SPR NARES; -GABA-282 PO; -GLUC1KIT IM; -LORA-622 PO; -MILKSUS3 PO; -PANT-23 PO; -TORS10TA3 PO
== END ==
PROVIDERS: ATTEND Internal Medicine
DX: R05.9 Cough, unspecified (principal)

== ENCOUNTER → 2021-06-27 | Outpatient (REF) | payer MEDICAID, MEDICARE, OTHER ==
[~2021-06-27] MED LIST changes: +AMOX500T2 PO; +FLEEENE12 PR; +FLON1SPR NARES; +GABA-282 PO; +GLUC1KIT IM; +LORA-622 PO; +MILKSUS3 PO; +PANT-23 PO; +TORS10TA3 PO
== END ==
PROVIDERS: ATTEND Internal Medicine
DX: R60.9 Edema, unspecified (principal); Z53.9 Procedure and treatment not carried out, unspecified reason

== ENCOUNTER → 2021-06-28 | Outpatient (REF) | payer MEDICARE, OTHER, MEDICAID ==
[~2021-06-28] MED LIST changes: +MUSCCRE9 TOP
[2021-06-28 13:39] LABS: HEMATOCRIT 28.5 % (36.0-47.0); HEMOGLOBIN 8.8 g/dl (12.0-15.5); MEAN CORPUSCULAR HGB CONC 30.9 g/dl (32.0-36.5); MEAN CORPUSCULAR VOLUME 94.1 fl (80.0-96.0); PLATELET COUNT, AUTOMATED 105 10^3/uL (150-450); RED BLOOD COUNT 3.03 10^6/uL (4.00-5.40)
[2021-06-28 14:30] LABS: CALCIUM LEVEL 11.1 MG/DL (8.8-10.2); CREATININE FOR GFR 2.07 MG/DL (0.55-1.30); GLOMERULAR FILTRATION RATE 24.6 (>39); POTASSIUM SERUM 3.9 MEQ/L (3.5-5.1)
== END ==
PROVIDERS: ATTEND Internal Medicine
DX: R60.9 Edema, unspecified (principal)

== ENCOUNTER → 2021-06-29 | Outpatient (REF) | payer MEDICARE, OTHER, MEDICAID ==
[2021-07-06 14:19] LABS: FOLATE 5.6 NG/ML (>5.4)
== END ==
PROVIDERS: ATTEND Internal Medicine
DX: D61.818 Other pancytopenia (principal)

== ENCOUNTER 2021-06-30 07:36 | Inpatient (IN) | payer MEDICARE, OTHER, MEDICAID ==
[~2021-06-30] VITALS: Ht 157.5 cm; Wt 110.0 kg
[~2021-06-30 07:36] MED LIST changes: -AMOX500T2 PO; -FLEEENE12 PR; -GABA-282 PO; -GLUC1KIT IM; -LORA-622 PO; -MILKSUS3 PO; -MUSCCRE9 TOP; -PANT-23 PO; -TORS10TA3 PO
[2021-06-30 08:26] LABS: ABG HCO3 31.4 MEQ/L (22.0-26.0); ABG TOTAL CO2 32.8 MEQ/L (23.0-31.0)
[2021-06-30 08:28] LABS: HEMATOCRIT 29.6 % (36.0-47.0); HEMOGLOBIN 9.1 g/dl (12.0-15.5); MEAN CORPUSCULAR HEMOGLOBIN 28.4 pg (27.0-33.0); MEAN CORPUSCULAR HGB CONC 30.7 g/dl (32.0-36.5); MEAN CORPUSCULAR VOLUME 92.5 fl (80.0-96.0); PLATELET COUNT, AUTOMATED 106 10^3/uL (150-450); WHITE BLOOD COUNT 2.5 10^3/uL (4.0-10.0)
[2021-06-30 08:28] LABS: ABG BASE EXCESS 6.9 (-2.0-2.0); ABG O2 SATURATION 85.6 % (95.0-99.0); ABG PARTIAL PRESSURE CO2 45.1 mmHg (35.0-45.0); ABG PARTIAL PRESSURE O2 50.4 mmHg (75.0-100.0); ABG STANDARD HCO3 30.5 MEQ/L (22.0-26.0); ABG pH (ARTERIAL) 7.461 UNITS (7.350-7.450)
[2021-06-30] MEDS ORDERED: ACETAMINOPHEN TAB 650MG DOSE (2X325MG) PO ONE (08:40)
[2021-06-30] MEDS ORDERED: ACETAMINOPHEN 500 MG TAB PO ONE (08:40)
[2021-06-30 09:00] LABS: ALBUMIN 3.3 GM/DL (3.2-5.2); BILIRUBIN,DIRECT 0.2 MG/DL (0.0-0.2); BILIRUBIN,TOTAL 0.7 MG/DL (0.2-1.0); CALCIUM LEVEL 11.7 MG/DL (8.8-10.2); CREATININE FOR GFR 2.17 MG/DL (0.55-1.30); GLOMERULAR FILTRATION RATE 23.3 (>39); POTASSIUM SERUM 4.7 MEQ/L (3.5-5.1)
[2021-06-30] MEDS ORDERED: FUROSEMIDE 40MG/4ML VIAL (J1940) IV ONE (09:15)
[2021-06-30 09:19] LABS: ATYPICAL LYMPH 2 % (0-5); EOSINOPHILS 5 % (0-3); LYMPHOCYTES 38 % (16-44); MONOCYTES 53 % (0-5); NEUTROPHILS 2 % (28-66)
[2021-06-30 09:20] LABS: ANISOCYTOSIS 1+; PLATELET ESTIMATE DECREASED (NORMAL)
[2021-06-30 09:22] LABS: POLYCHROMASIA 1+; TEAR DROP CELLS 1+
[2021-06-30 09:24] LABS: POIKILOCYTOSIS 1+
[2021-06-30] MEDS ORDERED: ACET-683 PO (11:46)
[2021-06-30] MEDS ORDERED: IPRA0.00 INH (11:46)
[2021-06-30] MEDS ORDERED: FLEEENE12 PR (11:46)
[2021-06-30] MEDS ORDERED: GLUC1KIT IM (11:46)
[2021-06-30] MEDS ORDERED: HYDR-3363 PO (11:46)
[2021-06-30] MEDS ORDERED: MILKSUS3 PO (11:46)
[2021-06-30] MEDS ORDERED: GABA-282 PO (11:46)
[2021-06-30] MEDS ORDERED: DULC10SU2 PR (11:46)
[2021-06-30] MEDS ORDERED: CEPH500C PO (11:46)
[2021-06-30] MEDS ORDERED: LORA-622 PO (11:46)
[2021-06-30] MEDS ORDERED: TORS10TA3 PO (11:46)
[2021-06-30] MEDS ORDERED: PANT-23 PO (11:46)
[2021-06-30] MEDS ORDERED: MUCI600T31 PO (11:46)
[2021-06-30] MEDS ORDERED: HOME MED LIST COMPLETE! XX SCH (11:50)
[2021-06-30 13:12] LABS: C REACTIVE PROTEIN QUANTITATIV 12.2 MG/DL (0.00-0.30)
[2021-06-30] MEDS ORDERED: VANCOMYCIN HCL IV SCH (13:25)
[2021-06-30] MEDS ORDERED: FLUID PLACE HOLDER IV SCH (13:25)
[2021-06-30] MEDS ORDERED: ALBUTEROL 90 MCG/ACT 8GM HFA INHALER INH PRN (13:40)
[2021-06-30] MEDS ORDERED: NYSTATIN CREAM 15 GM EXT PRN (13:40)
[2021-06-30] MEDS ORDERED: IPRATROPIUM 0.5MG/ALBUTEROL 2.5MG INH SOL UD 3ML (DUONEB) INH PRN (13:40)
[2021-06-30] MEDS: IPRATROPIUM 0.5MG/ALBUTEROL 2.5MG INH SOL UD 3ML (DUONEB) INH SCH ×2 (14:00→21:07)
[2021-06-30] MEDS: guaiFENesin ER 600 MG TAB PO SCH ×2 (15:03→22:16)
[2021-06-30] MEDS: PIPERACILLIN/TAZOBACTAM SOD 4.5 GM in D5W MINI-BAG PLUS 50 ML IV SCH ×2 (15:20→23:21)
[2021-06-30] MEDS: FILGRASTIM 300 MCG/0.5 ML SYRINGE **SC ADMINISTRATION ONLY SC SCH (15:31)
[2021-06-30] MEDS ORDERED: GLUCOSE 4GM CHEW TABLET PO PRN (15:35)
[2021-06-30] MEDS ORDERED: GLUCAGON INJ 1MG VIAL SC PRN (15:35)
[2021-06-30] MEDS ORDERED: DEXTROSE 50% 50 ML SYRINGE IV PRN (15:35)
[2021-06-30] MEDS ORDERED: ACETAMINOPHEN TAB 650MG DOSE (2X325MG) PO PRN (15:45)
[2021-06-30] MEDS ORDERED: VANCOMYCIN HCL 1,000 MG, VIAL MATE ADAPTER 1 EACH in NS 250 ML IV ONE (16:00)
[2021-06-30] MEDS: INSULIN LISPRO (NovoLOG) PER UNIT SC SCH ×2 (19:10→22:04)
[2021-06-30] MEDS ORDERED: VANCOMYCIN HCL 1,000 MG, VIAL MATE ADAPTER 1 EACH in NS 250 ML IV SCH (20:00)
[2021-06-30] MEDS: PANTOPRAZOLE 40MG TAB (PROTONIX) PO SCH (22:16)
[2021-06-30] MEDS: APIXABAN 5 MG TAB (ELIQUIS) PO SCH (22:16)
[2021-06-30 23:05] VITALS: BP 124/58
[2021-06-30] MEDS: PERCOCET 5MG/325MG TAB PO PRN (23:22)
[2021-07-01 04:00] VITALS: BP 105/55
[2021-07-01] MEDS: PIPERACILLIN/TAZOBACTAM SOD 4.5 GM in D5W MINI-BAG PLUS 50 ML IV SCH ×3 (05:58→23:07)
[2021-07-01 07:27] VITALS: BP 116/58
[2021-07-01] MEDS: INSULIN LISPRO (NovoLOG) PER UNIT SC SCH ×4 (07:30→20:48)
[2021-07-01] MEDS: IPRATROPIUM 0.5MG/ALBUTEROL 2.5MG INH SOL UD 3ML (DUONEB) INH SCH ×3 (08:00→20:05)
[2021-07-01 08:37] LABS: BASO % 1.6 % (0.0-1.0); EOS # 0.3 10^3/uL (0.0-0.5); EOS % 10.5 % (0.0-3.0); HEMOGLOBIN 8.3 g/dl (12.0-15.5); LYMPH # 0.8 10^3/uL (1.5-5.0); LYMPH % 33.9 % (24.0-44.0); MEAN CORPUSCULAR HEMOGLOBIN 27.7 pg (27.0-33.0); MEAN CORPUSCULAR HGB CONC 30.7 g/dl (32.0-36.5); MONO # 1.3 10^3/uL (0.0-0.8); MONO % 52.8 % (2.0-8.0); NEUTROPHILS % 0.4 % (36.0-66.0); WHITE BLOOD COUNT 2.5 10^3/uL (4.0-10.0)
[2021-07-01 08:53] LABS: ALBUMIN 2.6 GM/DL (3.2-5.2); CALCIUM LEVEL 10.6 MG/DL (8.8-10.2); CREATININE FOR GFR 1.95 MG/DL (0.55-1.30); GLOMERULAR FILTRATION RATE 26.3 (>39); MAGNESIUM LEVEL 2.5 MG/DL (1.8-2.4); POTASSIUM SERUM 4.1 MEQ/L (3.5-5.1); TOTAL PROTEIN 5.1 GM/DL (6.4-8.2)
[2021-07-01 09:16] LABS: PLATELET COUNT, AUTOMATED 95 10^3/uL (150-450)
[2021-07-01] MEDS: PANTOPRAZOLE 40MG TAB (PROTONIX) PO SCH ×2 (09:23→19:53)
[2021-07-01] MEDS: guaiFENesin ER 600 MG TAB PO SCH ×2 (09:23→19:52)
[2021-07-01] MEDS: FILGRASTIM 300 MCG/0.5 ML SYRINGE **SC ADMINISTRATION ONLY SC SCH (09:23)
[2021-07-01] MEDS: APIXABAN 5 MG TAB (ELIQUIS) PO SCH ×2 (09:23→19:52)
[2021-07-01] MEDS: PERCOCET 5MG/325MG TAB PO PRN ×2 (10:34→17:39)
[2021-07-01 12:30] VITALS: BP 116/53
[2021-07-01] MEDS: TORSEMIDE 10 MG TABLET PO SCH (13:00)
[2021-07-01] MEDS ORDERED: VANCOMYCIN HCL 1,000 MG, VIAL MATE ADAPTER 1 EACH in NS 250 ML IV ONE (16:00)
[2021-07-01] MEDS ORDERED: BISACODYL 10 MG SUPP PR PRN (16:30)
[2021-07-01] MEDS ORDERED: MOM 30ML SUSPENSION UDC PO PRN (16:30)
[2021-07-01] MEDS: CitaloPRAM (CeleXA) 20 MG TAB PO SCH (17:38)
[2021-07-01] MEDS: SPIRONOLACTONE 50 MG TAB PO SCH (17:39)
[2021-07-01 17:45] VITALS: BP 90/53
[2021-07-01] MEDS: GABAPENTIN 300 MG CAP PO SCH (19:51)
[2021-07-01] MEDS: ACETAMINOPHEN 500 MG TAB PO SCH (19:53)
[2021-07-01 20:00] VITALS: BP 116/63
[2021-07-02] VITALS: BP 110/66
[2021-07-02] MEDS: hydrOXYzine 25 MG TAB PO PRN (01:47)
[2021-07-02] MEDS: PERCOCET 5MG/325MG TAB PO PRN (02:13)
[2021-07-02 04:00] VITALS: BP 117/63
[2021-07-02] MEDS: PIPERACILLIN/TAZOBACTAM SOD 4.5 GM in D5W MINI-BAG PLUS 50 ML IV SCH ×3 (06:30→23:29)
[2021-07-02] MEDS: INSULIN LISPRO (NovoLOG) PER UNIT SC SCH ×5 (07:30→20:36)
[2021-07-02 07:32] VITALS: BP 108/48
[2021-07-02] MEDS: IPRATROPIUM 0.5MG/ALBUTEROL 2.5MG INH SOL UD 3ML (DUONEB) INH SCH ×3 (08:00→19:49)
[2021-07-02 08:12] LABS: HEMATOCRIT 28.8 % (36.0-47.0); HEMOGLOBIN 8.8 g/dl (12.0-15.5); MEAN CORPUSCULAR HEMOGLOBIN 28.1 pg (27.0-33.0); MEAN CORPUSCULAR HGB CONC 30.6 g/dl (32.0-36.5); PLATELET COUNT, AUTOMATED 109 10^3/uL (150-450); RED BLOOD COUNT 3.13 10^6/uL (4.00-5.40); WHITE BLOOD COUNT 2.9 10^3/uL (4.0-10.0)
[2021-07-02 08:30] LABS: ALBUMIN 2.4 GM/DL (3.2-5.2); BILIRUBIN,TOTAL 0.9 MG/DL (0.2-1.0); CREATININE FOR GFR 1.83 MG/DL (0.55-1.30); GLOMERULAR FILTRATION RATE 28.3 (>39); MAGNESIUM LEVEL 2.3 MG/DL (1.8-2.4); POTASSIUM SERUM 4.1 MEQ/L (3.5-5.1); TOTAL PROTEIN 5.8 GM/DL (6.4-8.2); VANCOMYCIN LEVEL TROUGH 17.8 UG/ML (10.0-20.0)
[2021-07-02] MEDS: FLUTICASONE PROP 0.05% NASAL SPRAY 16 GM (FLONASE) NARES SCH (08:57)
[2021-07-02] MEDS: guaiFENesin ER 600 MG TAB PO SCH ×2 (08:57→20:33)
[2021-07-02] MEDS: SPIRONOLACTONE 50 MG TAB PO SCH (08:57)
[2021-07-02] MEDS: GABAPENTIN 300 MG CAP PO SCH ×2 (08:57→20:33)
[2021-07-02] MEDS: LORATADINE 10 MG TAB PO SCH (08:57)
[2021-07-02] MEDS: VANCOMYCIN HCL 1,000 MG, VIAL MATE ADAPTER 1 EACH in NS 250 ML IV SCH (08:57)
[2021-07-02] MEDS: ACETAMINOPHEN 500 MG TAB PO SCH ×3 (08:58→20:34)
[2021-07-02] MEDS: PANTOPRAZOLE 40MG TAB (PROTONIX) PO SCH ×2 (08:58→20:33)
[2021-07-02] MEDS: APIXABAN 5 MG TAB (ELIQUIS) PO SCH ×2 (08:59→20:33)
[2021-07-02] MEDS: TORSEMIDE 10 MG TABLET PO SCH ×2 (08:59→12:59)
[2021-07-02] MEDS: CitaloPRAM (CeleXA) 20 MG TAB PO SCH (08:59)
[2021-07-02] MEDS: MAGNESIUM OXIDE 400MG TAB (MAG-OX) PO SCH (09:00)
[2021-07-02] MEDS ORDERED: LIDOCAINE 5% (LIDODERM) PATCH TD ONE (09:30)
[2021-07-02 09:39] LABS: ATYPICAL LYMPH 1 % (0-5); BASOPHILS 2 % (0-1); EOSINOPHILS 18 % (0-3); LYMPHOCYTES 29 % (16-44); MONOCYTES 42 % (0-5); NEUTROPHILS 4 % (28-66)
[2021-07-02 09:40] LABS: ANISOCYTOSIS 2+; HYPOCHROMASIA 2+; POLYCHROMASIA 1+
[2021-07-02 09:45] LABS: PLATELET ESTIMATE DECREASED (NORMAL)
[2021-07-02] MEDS: FILGRASTIM 300 MCG/0.5 ML SYRINGE **SC ADMINISTRATION ONLY SC SCH (10:09)
[2021-07-02 12:25] VITALS: BP 100/44
[2021-07-02 16:19] VITALS: BP 118/52
[2021-07-02 20:00] VITALS: BP 124/58
[2021-07-02] MEDS ORDERED: **NOTE PATIENT COMMENT** MISC XX ONE (21:30)
[2021-07-03] VITALS: BP 124/58
[2021-07-03 04:00] VITALS: BP 119/70
[2021-07-03] MEDS: PERCOCET 5MG/325MG TAB PO PRN ×3 (04:03→21:36)
[2021-07-03] MEDS: PIPERACILLIN/TAZOBACTAM SOD 4.5 GM in D5W MINI-BAG PLUS 50 ML IV SCH (05:54)
[2021-07-03 07:28] VITALS: BP 120/56
[2021-07-03 07:42] LABS: HEMATOCRIT 26.9 % (36.0-47.0); HEMOGLOBIN 8.2 g/dl (12.0-15.5); MEAN CORPUSCULAR HEMOGLOBIN 28.1 pg (27.0-33.0); MEAN CORPUSCULAR HGB CONC 30.5 g/dl (32.0-36.5); MEAN CORPUSCULAR VOLUME 92.1 fl (80.0-96.0); PLATELET COUNT, AUTOMATED 121 10^3/uL (150-450); RED BLOOD COUNT 2.92 10^6/uL (4.00-5.40); WHITE BLOOD COUNT 4.8 10^3/uL (4.0-10.0)
[2021-07-03] MEDS: IPRATROPIUM 0.5MG/ALBUTEROL 2.5MG INH SOL UD 3ML (DUONEB) INH SCH ×3 (07:48→19:54)
[2021-07-03 08:09] LABS: ALBUMIN 2.3 GM/DL (3.2-5.2); BILIRUBIN,TOTAL 0.6 MG/DL (0.2-1.0); CALCIUM LEVEL 9.9 MG/DL (8.8-10.2); CREATININE FOR GFR 1.74 MG/DL (0.55-1.30); MAGNESIUM LEVEL 2.2 MG/DL (1.8-2.4); POTASSIUM SERUM 3.9 MEQ/L (3.5-5.1); TOTAL PROTEIN 4.6 GM/DL (6.4-8.2); VANCOMYCIN LEVEL TROUGH 15.1 UG/ML (10.0-20.0)
[2021-07-03 08:31] LABS: BASOPHILS 2 % (0-1); EOSINOPHILS 9 % (0-3); LYMPHOCYTES 40 % (16-44); METAMYELOCYTES 3 % (0-0); MONOCYTES 8 % (0-5); MYELOCYTES 1 % (0-0); NEUTROPHILS 20 % (28-66); PLATELET ESTIMATE NORMAL (NORMAL)
[2021-07-03] MEDS: INSULIN LISPRO (NovoLOG) PER UNIT SC SCH ×4 (09:36→21:00)
[2021-07-03] MEDS: VANCOMYCIN HCL 1,000 MG, VIAL MATE ADAPTER 1 EACH in NS 250 ML IV SCH (09:37)
[2021-07-03] MEDS: ACETAMINOPHEN 500 MG TAB PO SCH ×3 (09:37→21:01)
[2021-07-03] MEDS: SPIRONOLACTONE 50 MG TAB PO SCH (09:37)
[2021-07-03] MEDS: APIXABAN 5 MG TAB (ELIQUIS) PO SCH ×2 (09:37→21:00)
[2021-07-03] MEDS: LORATADINE 10 MG TAB PO SCH (09:38)
[2021-07-03] MEDS: GABAPENTIN 300 MG CAP PO SCH ×2 (09:38→21:00)
[2021-07-03] MEDS: MAGNESIUM OXIDE 400MG TAB (MAG-OX) PO SCH (09:38)
[2021-07-03] MEDS: PANTOPRAZOLE 40MG TAB (PROTONIX) PO SCH ×2 (09:38→21:00)
[2021-07-03] MEDS: TORSEMIDE 10 MG TABLET PO SCH ×2 (09:38→12:30)
[2021-07-03] MEDS: CitaloPRAM (CeleXA) 20 MG TAB PO SCH (09:39)
[2021-07-03] MEDS: guaiFENesin ER 600 MG TAB PO SCH ×2 (09:39→21:00)
[2021-07-03] MEDS: FLUTICASONE PROP 0.05% NASAL SPRAY 16 GM (FLONASE) NARES SCH (09:40)
[2021-07-03 11:30] VITALS: BP 113/53
[2021-07-03] MEDS: FILGRASTIM 300 MCG/0.5 ML SYRINGE **SC ADMINISTRATION ONLY SC SCH (11:32)
[2021-07-03] MEDS: LIDOCAINE 5% (LIDODERM) PATCH TD SCH (16:30)
[2021-07-03 16:43] VITALS: BP 122/70
[2021-07-03 20:00] VITALS: BP 104/52
[2021-07-03] MEDS: AUGMENTIN 500 MG TAB PO SCH (21:01)
[2021-07-03] MEDS: **NOTE PATIENT COMMENT** MISC XX SCH (21:02)
[2021-07-03] MEDS: DOXYCYCLINE HYCLATE 100MG TABLET PO SCH (21:22)
[2021-07-04] VITALS (14 sets, daily range): BP systolic 104–149; BP diastolic 52–69; O2SAT 79–97
[2021-07-04 05:47] LABS: HEMOGLOBIN 8.8 g/dl (12.0-15.5); MEAN CORPUSCULAR HEMOGLOBIN 27.8 pg (27.0-33.0); MEAN CORPUSCULAR HGB CONC 30.3 g/dl (32.0-36.5); MEAN CORPUSCULAR VOLUME 91.8 fl (80.0-96.0); PLATELET COUNT, AUTOMATED 121 10^3/uL (150-450); RED BLOOD COUNT 3.16 10^6/uL (4.00-5.40); WHITE BLOOD COUNT 12.7 10^3/uL (4.0-10.0)
[2021-07-04 06:13] LABS: ALBUMIN 2.3 GM/DL (3.2-5.2); BILIRUBIN,TOTAL 0.6 MG/DL (0.2-1.0); CALCIUM LEVEL 10.5 MG/DL (8.8-10.2); CREATININE FOR GFR 1.63 MG/DL (0.55-1.30); GLOMERULAR FILTRATION RATE 32.4 (>39); POTASSIUM SERUM 4.1 MEQ/L (3.5-5.1); TOTAL PROTEIN 4.8 GM/DL (6.4-8.2)
[2021-07-04 06:15] LABS: ANISOCYTOSIS 1+; ATYPICAL LYMPH 1 % (0-5); BASOPHILS 1 % (0-1); EOSINOPHILS 4 % (0-3); LYMPHOCYTES 19 % (16-44); METAMYELOCYTES 1 % (0-0); MONOCYTES 8 % (0-5); MYELOCYTES 3 % (0-0); NEUTROPHILS 53 % (28-66); PLATELET ESTIMATE NORMAL (NORMAL)
[2021-07-04] MEDS: IPRATROPIUM 0.5MG/ALBUTEROL 2.5MG INH SOL UD 3ML (DUONEB) INH SCH ×3 (07:16→19:49)
[2021-07-04] MEDS: INSULIN LISPRO (NovoLOG) PER UNIT SC SCH ×3 (07:30→17:40)
[2021-07-04] MEDS: SPIRONOLACTONE 50 MG TAB PO SCH (09:39)
[2021-07-04] MEDS: ACETAMINOPHEN 500 MG TAB PO SCH ×3 (09:40→20:30)
[2021-07-04] MEDS: LORATADINE 10 MG TAB PO SCH (09:40)
[2021-07-04] MEDS: CitaloPRAM (CeleXA) 20 MG TAB PO SCH (09:40)
[2021-07-04] MEDS: PERCOCET 5MG/325MG TAB PO PRN ×2 (09:41→22:05)
[2021-07-04] MEDS: MAGNESIUM OXIDE 400MG TAB (MAG-OX) PO SCH (09:41)
[2021-07-04] MEDS: PANTOPRAZOLE 40MG TAB (PROTONIX) PO SCH ×2 (09:41→20:31)
[2021-07-04] MEDS: GABAPENTIN 300 MG CAP PO SCH ×2 (09:42→20:31)
[2021-07-04] MEDS: guaiFENesin ER 600 MG TAB PO SCH ×2 (09:42→20:30)
[2021-07-04] MEDS: AUGMENTIN 500 MG TAB PO SCH ×2 (09:42→20:31)
[2021-07-04] MEDS: FLUTICASONE PROP 0.05% NASAL SPRAY 16 GM (FLONASE) NARES SCH (09:42)
[2021-07-04] MEDS: TORSEMIDE 10 MG TABLET PO SCH ×2 (09:42→13:39)
[2021-07-04] MEDS: APIXABAN 5 MG TAB (ELIQUIS) PO SCH ×2 (09:42→20:30)
[2021-07-04] MEDS: LIDOCAINE 5% (LIDODERM) PATCH TD SCH (09:43)
[2021-07-04] MEDS ORDERED: ONDANSETRON 4MG/2ML VIAL IV PRN (11:15)
[2021-07-04] MEDS ORDERED: DOXY100T PO (11:20)
[2021-07-04] MEDS ORDERED: AMOX500T2 PO (11:20)
[2021-07-04] MEDS: DOXYCYCLINE HYCLATE 100MG TABLET PO SCH (20:31)
[2021-07-04] MEDS: **NOTE PATIENT COMMENT** MISC XX SCH (20:32)
[2021-07-05 03:56] VITALS: BP 108/54
[2021-07-05 05:14] LABS: HEMATOCRIT 29.4 % (36.0-47.0); HEMOGLOBIN 8.8 g/dl (12.0-15.5); MEAN CORPUSCULAR HEMOGLOBIN 27.3 pg (27.0-33.0); MEAN CORPUSCULAR HGB CONC 29.9 g/dl (32.0-36.5); MEAN CORPUSCULAR VOLUME 91.3 fl (80.0-96.0); PLATELET COUNT, AUTOMATED 109 10^3/uL (150-450); RED BLOOD COUNT 3.22 10^6/uL (4.00-5.40); WHITE BLOOD COUNT 9.4 10^3/uL (4.0-10.0)
[2021-07-05 05:37] LABS: ALBUMIN 2.4 GM/DL (3.2-5.2); BILIRUBIN,TOTAL 0.6 MG/DL (0.2-1.0); CALCIUM LEVEL 10.1 MG/DL (8.8-10.2); CREATININE FOR GFR 1.61 MG/DL (0.55-1.30); GLOMERULAR FILTRATION RATE 32.9 (>39); MAGNESIUM LEVEL 2.3 MG/DL (1.8-2.4); POTASSIUM SERUM 4.1 MEQ/L (3.5-5.1)
[2021-07-05 05:53] LABS: ANISOCYTOSIS 1+; ATYPICAL LYMPH 3 % (0-5); BASOPHILS 1 % (0-1); EOSINOPHILS 8 % (0-3); LYMPHOCYTES 12 % (16-44); METAMYELOCYTES 2 % (0-0); MONOCYTES 11 % (0-5); MYELOCYTES 2 % (0-0); NEUTROPHILS 59 % (28-66); PLATELET ESTIMATE DECREASED (NORMAL)
[2021-07-05] MEDS: INSULIN LISPRO (NovoLOG) PER UNIT SC SCH ×4 (07:30→18:04)
[2021-07-05 07:43] VITALS: BP 101/48
[2021-07-05] MEDS: IPRATROPIUM 0.5MG/ALBUTEROL 2.5MG INH SOL UD 3ML (DUONEB) INH SCH ×3 (07:51→20:00)
[2021-07-05 08:00] VITALS: O2SAT 93
[2021-07-05] MEDS: TORSEMIDE 10 MG TABLET PO SCH ×2 (08:21→13:58)
[2021-07-05] MEDS: SPIRONOLACTONE 50 MG TAB PO SCH (08:21)
[2021-07-05] MEDS: LIDOCAINE 5% (LIDODERM) PATCH TD SCH (08:21)
[2021-07-05] MEDS: FLUTICASONE PROP 0.05% NASAL SPRAY 16 GM (FLONASE) NARES SCH (08:21)
[2021-07-05] MEDS: guaiFENesin ER 600 MG TAB PO SCH ×2 (08:21→21:52)
[2021-07-05] MEDS: GABAPENTIN 300 MG CAP PO SCH ×2 (08:22→21:53)
[2021-07-05] MEDS: CitaloPRAM (CeleXA) 20 MG TAB PO SCH (08:22)
[2021-07-05] MEDS: ACETAMINOPHEN 500 MG TAB PO SCH ×3 (08:23→21:54)
[2021-07-05] MEDS: AUGMENTIN 500 MG TAB PO SCH ×2 (08:23→21:53)
[2021-07-05] MEDS: APIXABAN 5 MG TAB (ELIQUIS) PO SCH ×2 (08:23→21:52)
[2021-07-05] MEDS: MAGNESIUM OXIDE 400MG TAB (MAG-OX) PO SCH (08:23)
[2021-07-05] MEDS: PANTOPRAZOLE 40MG TAB (PROTONIX) PO SCH ×2 (08:23→21:54)
[2021-07-05] MEDS: LORATADINE 10 MG TAB PO SCH (08:24)
[2021-07-05] MEDS ORDERED: FLEET ENEMA PR ONE (09:50)
[2021-07-05 10:17] VITALS: BP 100/56
[2021-07-05 11:52] LABS: C REACTIVE PROTEIN QUANTITATIV 6.53 MG/DL (0.00-0.30)
[2021-07-05] MEDS: LACTULOSE 20 GM/30 ML SYRUP UD PO SCH ×3 (13:56→23:50)
[2021-07-05] MEDS: PERCOCET 5MG/325MG TAB PO PRN ×2 (13:59→21:52)
[2021-07-05] MEDS ORDERED: INSULIN LISPRO (NovoLOG) PER UNIT SC SCH (21:00)
[2021-07-05] MEDS: DOXYCYCLINE HYCLATE 100MG TABLET PO SCH (21:53)
[2021-07-05] MEDS: **NOTE PATIENT COMMENT** MISC XX SCH (21:54)
[2021-07-06] MEDS: hydrOXYzine 25 MG TAB PO PRN (01:13)
[2021-07-06 05:44] VITALS: BP 116/77
[2021-07-06] MEDS: LACTULOSE 20 GM/30 ML SYRUP UD PO SCH ×3 (05:50→12:00)
[2021-07-06] MEDS: IPRATROPIUM 0.5MG/ALBUTEROL 2.5MG INH SOL UD 3ML (DUONEB) INH SCH ×2 (06:25→13:21)
[2021-07-06] MEDS: INSULIN LISPRO (NovoLOG) PER UNIT SC SCH ×2 (07:30→12:21)
[2021-07-06 08:24] LABS: HEMOGLOBIN 8.2 g/dl (12.0-15.5); MEAN CORPUSCULAR HEMOGLOBIN 28.3 pg (27.0-33.0); MEAN CORPUSCULAR HGB CONC 30.4 g/dl (32.0-36.5); MEAN CORPUSCULAR VOLUME 93.1 fl (80.0-96.0); PLATELET COUNT, AUTOMATED 102 10^3/uL (150-450); WHITE BLOOD COUNT 7.4 10^3/uL (4.0-10.0)
[2021-07-06] MEDS: TORSEMIDE 10 MG TABLET PO SCH ×2 (09:00→12:22)
[2021-07-06 09:03] LABS: ALBUMIN 2.5 GM/DL (3.2-5.2); BILIRUBIN,TOTAL 0.5 MG/DL (0.2-1.0); CALCIUM LEVEL 9.8 MG/DL (8.8-10.2); CREATININE FOR GFR 1.48 MG/DL (0.55-1.30); GLOMERULAR FILTRATION RATE 36.2 (>39); MAGNESIUM LEVEL 2.2 MG/DL (1.8-2.4); POTASSIUM SERUM 3.8 MEQ/L (3.5-5.1)
[2021-07-06 09:16] LABS: ANISOCYTOSIS 1+; ATYPICAL LYMPH 1 % (0-5); EOSINOPHILS 9 % (0-3); LYMPHOCYTES 9 % (16-44); METAMYELOCYTES 3 % (0-0); MONOCYTES 10 % (0-5); MYELOCYTES 1 % (0-0); NEUTROPHILS 67 % (28-66); PLATELET ESTIMATE DECREASED (NORMAL); POLYCHROMASIA 1+
[2021-07-06] MEDS: guaiFENesin ER 600 MG TAB PO SCH (09:49)
[2021-07-06] MEDS: CitaloPRAM (CeleXA) 20 MG TAB PO SCH (09:50)
[2021-07-06] MEDS: APIXABAN 5 MG TAB (ELIQUIS) PO SCH (09:50)
[2021-07-06] MEDS: ACETAMINOPHEN 500 MG TAB PO SCH (09:50)
[2021-07-06] MEDS: SPIRONOLACTONE 50 MG TAB PO SCH (09:50)
[2021-07-06] MEDS: GABAPENTIN 300 MG CAP PO SCH (09:51)
[2021-07-06] MEDS: PANTOPRAZOLE 40MG TAB (PROTONIX) PO SCH (09:51)
[2021-07-06] MEDS: LORATADINE 10 MG TAB PO SCH (09:51)
[2021-07-06] MEDS: LIDOCAINE 5% (LIDODERM) PATCH TD SCH (09:52)
[2021-07-06] MEDS: MAGNESIUM OXIDE 400MG TAB (MAG-OX) PO SCH (09:52)
[2021-07-06] MEDS: PERCOCET 5MG/325MG TAB PO PRN (09:53)
[2021-07-06] MEDS: FLUTICASONE PROP 0.05% NASAL SPRAY 16 GM (FLONASE) NARES SCH (09:53)
[2021-07-06] MEDS: AUGMENTIN 500 MG TAB PO SCH (09:54)
[2021-07-06] MEDS ORDERED: DOXYCYCLINE HYCLATE 100MG TABLET PO ONE (11:55)
[2021-07-06 12:23] VITALS: BP 130/62
[2021-07-06] MEDS ORDERED: PERCOCET PO (15:32)
== END 2021-07-06 13:40 | DRG 808 ==
LOC: EDBD 07:36 → M ED 07:36 → M ED INP 13:06 → M PCU 23:05 → M MS5PR 07-05 11:58
PROVIDERS: ADMIT Family Medicine; ATTEND Internal Medicine
DX: D70.9 Neutropenia, unspecified (principal); I50.33 Acute on chronic diastolic (congestive) heart failure; J96.91 Respiratory failure, unspecified with hypoxia; J18.9 Pneumonia, unspecified organism; N17.9 Acute kidney failure, unspecified; R65.10 Systemic inflammatory response syndrome (SIRS) of non-infectious origin without acute organ dysfunction; J44.0 Chronic obstructive pulmonary disease with (acute) lower respiratory infection; L03.116 Cellulitis of left lower limb; I48.91 Unspecified atrial fibrillation; I49.5 Sick sinus syndrome; E11.22 Type 2 diabetes mellitus with diabetic chronic kidney disease; I27.81 Cor pulmonale (chronic); N18.32 Chronic kidney disease, stage 3b; D63.1 Anemia in chronic kidney disease; E66.01 Morbid (severe) obesity due to excess calories; L30.4 Erythema intertrigo; I50.813 Acute on chronic right heart failure; F41.9 Anxiety disorder, unspecified; F32.A Depression, unspecified; R91.1 Solitary pulmonary nodule; M16.12 Unilateral primary osteoarthritis, left hip; D69.6 Thrombocytopenia, unspecified; D61.818 Other pancytopenia; R16.1 Splenomegaly, not elsewhere classified; K21.9 Gastro-esophageal reflux disease without esophagitis; Z79.899 Other long term (current) drug therapy; Z88.0 Allergy status to penicillin; Z88.1 Allergy status to other antibiotic agents; Z88.2 Allergy status to sulfonamides; Z88.5 Allergy status to narcotic agent; Z88.8 Allergy status to other drugs, medicaments and biological substances; Z68.39 Body mass index [BMI] 39.0-39.9, adult; Z20.822 Contact with and (suspected) exposure to COVID-19; Z85.3 Personal history of malignant neoplasm of breast; Z95.0 Presence of cardiac pacemaker; Z87.891 Personal history of nicotine dependence; Z92.3 Personal history of irradiation; Z90.49 Acquired absence of other specified parts of digestive tract; Z79.01 Long term (current) use of anticoagulants

== ENCOUNTER → 2021-07-02 | Outpatient (REF) ==
[~2021-07-02] MED LIST changes: +AMOX500T2 PO; +FLEEENE12 PR; +GABA-282 PO; +GLUC1KIT IM; +LORA-622 PO; +MILKSUS3 PO; +MUSCCRE9 TOP; +PANT-23 PO; +TORS10TA3 PO
== END ==
PROVIDERS: ATTEND Internal Medicine
DX: D61.818 Other pancytopenia (principal); Z53.9 Procedure and treatment not carried out, unspecified reason

== ENCOUNTER → 2021-07-09 | Outpatient (REF) | payer MEDICARE, OTHER, MEDICAID ==
[2021-07-09 12:03] LABS: HEMATOCRIT 28.9 % (36.0-47.0); HEMOGLOBIN 8.9 g/dl (12.0-15.5); MEAN CORPUSCULAR HEMOGLOBIN 28.5 pg (27.0-33.0); MEAN CORPUSCULAR HGB CONC 30.8 g/dl (32.0-36.5); MEAN CORPUSCULAR VOLUME 92.6 fl (80.0-96.0); RED BLOOD COUNT 3.12 10^6/uL (4.00-5.40); WHITE BLOOD COUNT 6.4 10^3/uL (4.0-10.0)
[2021-07-09 12:16] LABS: PLATELET COUNT, AUTOMATED 95 10^3/uL (150-450)
[2021-07-09 12:34] LABS: CALCIUM LEVEL 10.1 MG/DL (8.8-10.2); CREATININE FOR GFR 1.65 MG/DL (0.55-1.30); GLOMERULAR FILTRATION RATE 31.9 (>39); POTASSIUM SERUM 4.3 MEQ/L (3.5-5.1)
== END ==
PROVIDERS: ATTEND Internal Medicine
DX: I50.9 Heart failure, unspecified (principal)

== ENCOUNTER 2021-07-13 10:06 | Inpatient (IN) | payer MEDICARE, OTHER, MEDICAID ==
[~2021-07-13] VITALS: Ht 162.6 cm; Wt 95.3 kg
[~2021-07-13 10:06] MED LIST changes: -MUSCCRE9 TOP
[2021-07-13 10:41] LABS: BASO % 0.7 % (0.0-1.0); EOS # 0.3 10^3/uL (0.0-0.5); EOS % 5.5 % (0.0-3.0); HEMATOCRIT 27.3 % (36.0-47.0); HEMOGLOBIN 8.4 g/dl (12.0-15.5); LYMPH # 1.2 10^3/uL (1.5-5.0); MEAN CORPUSCULAR HEMOGLOBIN 28.3 pg (27.0-33.0); MEAN CORPUSCULAR HGB CONC 30.8 g/dl (32.0-36.5); MEAN CORPUSCULAR VOLUME 91.9 fl (80.0-96.0); MONO # 0.4 10^3/uL (0.0-0.8); MONO % 6.5 % (2.0-8.0); NEUTROPHILS # 4.2 10^3/uL (1.5-8.5); PLATELET COUNT, AUTOMATED 112 10^3/uL (150-450); RED BLOOD COUNT 2.97 10^6/uL (4.00-5.40); WHITE BLOOD COUNT 6.2 10^3/uL (4.0-10.0)
[2021-07-13 11:06] LABS: BILIRUBIN,DIRECT 0.2 MG/DL (0.0-0.2); BILIRUBIN,TOTAL 0.5 MG/DL (0.2-1.0); CALCIUM LEVEL 9.5 MG/DL (8.8-10.2); CK-MB VALUE MASS < 1.0 NG/ML (<3.6); CPK CREATINE PHOSPHOKINASE 17 U/L (26-192); CREATININE FOR GFR 1.62 MG/DL (0.55-1.30); GLOMERULAR FILTRATION RATE 32.6 (>39); MB/CK RELATIVE INDEX 5.88 (< OR =4); POTASSIUM SERUM 4.6 MEQ/L (3.5-5.1); TOTAL PROTEIN 5.3 GM/DL (6.4-8.2)
[2021-07-13] MEDS ORDERED: OXYC1TAB23 PO (11:09)
[2021-07-13] MEDS ORDERED: HOME MED LIST COMPLETE! XX SCH (11:10)
[2021-07-13] MEDS ORDERED: FUROSEMIDE 100MG/10ML VIAL (J1940) IV ONE (11:45)
[2021-07-13] MEDS ORDERED: ALBUTEROL 90 MCG/ACT 8GM HFA INHALER INH PRN (16:35)
[2021-07-13] MEDS ORDERED: NYSTATIN CREAM 15 GM EXT PRN (16:35)
[2021-07-13] MEDS ORDERED: hydrOXYzine 25 MG TAB PO PRN (16:35)
[2021-07-13] MEDS ORDERED: IPRATROPIUM 0.5MG/ALBUTEROL 2.5MG INH SOL UD 3ML (DUONEB) INH PRN (16:35)
[2021-07-13] MEDS ORDERED: FLEET ENEMA PR PRN (16:35)
[2021-07-13] MEDS ORDERED: BISACODYL 10 MG SUPP PR PRN (16:35)
[2021-07-13] MEDS ORDERED: MOM 30ML SUSPENSION UDC PO PRN (16:35)
[2021-07-13] MEDS ORDERED: GLUCOSE 4GM CHEW TABLET PO PRN (17:50)
[2021-07-13] MEDS ORDERED: DEXTROSE 50% 50 ML SYRINGE IV PRN (17:50)
[2021-07-13] MEDS ORDERED: GLUCAGON INJ 1MG VIAL SC PRN (17:50)
[2021-07-13 18:10] LABS: ABG BASE EXCESS 3.2 (-2.0-2.0); ABG HCO3 27.7 MEQ/L (22.0-26.0); ABG O2 SATURATION 89.8 % (95.0-99.0); ABG PARTIAL PRESSURE CO2 42.1 mmHg (35.0-45.0); ABG PARTIAL PRESSURE O2 59.2 mmHg (75.0-100.0); ABG STANDARD HCO3 27.2 MEQ/L (22.0-26.0); ABG pH (ARTERIAL) 7.436 UNITS (7.350-7.450)
[2021-07-13] MEDS: RIVAROXABAN 15 MG TAB (XARELTO) PO SCH (18:39)
[2021-07-13] MEDS: GABAPENTIN 300 MG CAP PO SCH (20:57)
[2021-07-13] MEDS: ACETAMINOPHEN 500 MG TAB PO SCH (20:57)
[2021-07-13] MEDS: PANTOPRAZOLE 40MG TAB (PROTONIX) PO SCH (20:58)
[2021-07-13 21:05] VITALS: BP 129/58
[2021-07-13] MEDS: INSULIN LISPRO (NovoLOG) PER UNIT SC SCH (21:05)
[2021-07-13] MEDS: FUROSEMIDE 100MG/10ML VIAL (J1940) IV SCH (23:54)
[2021-07-13] MEDS: PERCOCET 5MG/325MG TAB PO PRN (23:55)
[2021-07-14 04:00] VITALS: BP 119/58
[2021-07-14 07:32] VITALS: BP 114/57
[2021-07-14 08:04] LABS: HEMATOCRIT 26.1 % (36.0-47.0); HEMOGLOBIN 8.2 g/dl (12.0-15.5); MEAN CORPUSCULAR HEMOGLOBIN 28.8 pg (27.0-33.0); MEAN CORPUSCULAR HGB CONC 31.4 g/dl (32.0-36.5); MEAN CORPUSCULAR VOLUME 91.6 fl (80.0-96.0); PLATELET COUNT, AUTOMATED 129 10^3/uL (150-450); RED BLOOD COUNT 2.85 10^6/uL (4.00-5.40); WHITE BLOOD COUNT 5.2 10^3/uL (4.0-10.0)
[2021-07-14 08:30] LABS: CALCIUM LEVEL 10.1 MG/DL (8.8-10.2); CREATININE FOR GFR 1.49 MG/DL (0.55-1.30); GLOMERULAR FILTRATION RATE 35.9 (>39); MAGNESIUM LEVEL 2.7 MG/DL (1.8-2.4); POTASSIUM SERUM 4.6 MEQ/L (3.5-5.1)
[2021-07-14] MEDS: FUROSEMIDE 100MG/10ML VIAL (J1940) IV SCH ×2 (09:00→15:12)
[2021-07-14] MEDS: INSULIN LISPRO (NovoLOG) PER UNIT SC SCH ×4 (09:00→21:00)
[2021-07-14] MEDS: LORATADINE 10 MG TAB PO SCH (09:01)
[2021-07-14] MEDS: ACETAMINOPHEN 500 MG TAB PO SCH ×3 (09:01→21:13)
[2021-07-14] MEDS: CitaloPRAM (CeleXA) 20 MG TAB PO SCH (09:01)
[2021-07-14] MEDS: GABAPENTIN 300 MG CAP PO SCH ×2 (09:01→21:11)
[2021-07-14] MEDS: MAGNESIUM OXIDE 400MG TAB (MAG-OX) PO SCH (09:01)
[2021-07-14] MEDS: PANTOPRAZOLE 40MG TAB (PROTONIX) PO SCH ×2 (09:02→21:11)
[2021-07-14] MEDS: FLUTICASONE PROP 0.05% NASAL SPRAY 16 GM (FLONASE) NARES SCH (09:02)
[2021-07-14 12:00] VITALS: BP 122/62
[2021-07-14 16:10] VITALS: BP 121/80
[2021-07-14] MEDS ORDERED: FLUBLOK(EGG FREE)(QUAD)INFLUENZA VACC 0.5ML SYRINGE 18YRS & OLDER IM ONE (17:00)
[2021-07-14] MEDS: RIVAROXABAN 15 MG TAB (XARELTO) PO SCH (17:13)
[2021-07-14] MEDS: PERCOCET 5MG/325MG TAB PO PRN (21:12)
[2021-07-14 22:00] VITALS: BP 105/42
[2021-07-15] MEDS: FUROSEMIDE 100MG/10ML VIAL (J1940) IV SCH ×2 (00:17→08:00)
[2021-07-15 02:00] VITALS: BP 102/64
[2021-07-15 06:00] VITALS: BP 106/62
[2021-07-15 06:31] LABS: HEMATOCRIT 28.4 % (36.0-47.0); HEMOGLOBIN 8.7 g/dl (12.0-15.5); MEAN CORPUSCULAR HEMOGLOBIN 28.5 pg (27.0-33.0); MEAN CORPUSCULAR HGB CONC 30.6 g/dl (32.0-36.5); MEAN CORPUSCULAR VOLUME 93.1 fl (80.0-96.0); PLATELET COUNT, AUTOMATED 142 10^3/uL (150-450); RED BLOOD COUNT 3.05 10^6/uL (4.00-5.40); WHITE BLOOD COUNT 5.9 10^3/uL (4.0-10.0)
[2021-07-15 07:06] LABS: CALCIUM LEVEL 10.1 MG/DL (8.8-10.2); CREATININE FOR GFR 1.85 MG/DL (0.55-1.30); POTASSIUM SERUM 4.1 MEQ/L (3.5-5.1)
[2021-07-15] MEDS: FLUTICASONE PROP 0.05% NASAL SPRAY 16 GM (FLONASE) NARES SCH (09:00)
[2021-07-15] MEDS: GABAPENTIN 300 MG CAP PO SCH ×2 (09:59→21:04)
[2021-07-15] MEDS: INSULIN LISPRO (NovoLOG) PER UNIT SC SCH ×4 (09:59→20:03)
[2021-07-15] MEDS: PANTOPRAZOLE 40MG TAB (PROTONIX) PO SCH ×2 (10:00→21:04)
[2021-07-15] MEDS: LORATADINE 10 MG TAB PO SCH (10:00)
[2021-07-15] MEDS: MAGNESIUM OXIDE 400MG TAB (MAG-OX) PO SCH (10:00)
[2021-07-15] MEDS: CitaloPRAM (CeleXA) 20 MG TAB PO SCH (10:00)
[2021-07-15] MEDS: ACETAMINOPHEN 500 MG TAB PO SCH ×3 (10:01→20:55)
[2021-07-15 14:00] VITALS: BP 107/40
[2021-07-15 16:00] VITALS: BP 114/63
[2021-07-15] MEDS: RIVAROXABAN 15 MG TAB (XARELTO) PO SCH (17:05)
[2021-07-15] MEDS: TORSEMIDE 10 MG TABLET PO SCH (17:05)
[2021-07-15] MEDS: PERCOCET 5MG/325MG TAB PO PRN (21:05)
[2021-07-15 22:00] VITALS: BP 115/63
[2021-07-16 02:00] VITALS: BP 114/63
[2021-07-16 06:00] VITALS: BP 115/62
[2021-07-16 06:21] LABS: HEMATOCRIT 28.6 % (36.0-47.0); HEMOGLOBIN 8.9 g/dl (12.0-15.5); MEAN CORPUSCULAR HEMOGLOBIN 28.8 pg (27.0-33.0); MEAN CORPUSCULAR HGB CONC 31.1 g/dl (32.0-36.5); MEAN CORPUSCULAR VOLUME 92.6 fl (80.0-96.0); PLATELET COUNT, AUTOMATED 140 10^3/uL (150-450); RED BLOOD COUNT 3.09 10^6/uL (4.00-5.40); WHITE BLOOD COUNT 5.7 10^3/uL (4.0-10.0)
[2021-07-16 06:49] LABS: CALCIUM LEVEL 9.2 MG/DL (8.8-10.2); CREATININE FOR GFR 1.65 MG/DL (0.55-1.30); GLOMERULAR FILTRATION RATE 31.9 (>39)
[2021-07-16] MEDS: INSULIN LISPRO (NovoLOG) PER UNIT SC SCH ×4 (07:30→21:00)
[2021-07-16] MEDS: LORATADINE 10 MG TAB PO SCH (08:22)
[2021-07-16] MEDS: PANTOPRAZOLE 40MG TAB (PROTONIX) PO SCH ×2 (08:22→22:03)
[2021-07-16] MEDS: GABAPENTIN 300 MG CAP PO SCH ×2 (08:22→22:03)
[2021-07-16] MEDS: MAGNESIUM OXIDE 400MG TAB (MAG-OX) PO SCH ×2 (08:22→10:29)
[2021-07-16] MEDS: TORSEMIDE 10 MG TABLET PO SCH (08:23)
[2021-07-16] MEDS: CitaloPRAM (CeleXA) 20 MG TAB PO SCH (08:23)
[2021-07-16] MEDS: FLUTICASONE PROP 0.05% NASAL SPRAY 16 GM (FLONASE) NARES SCH (08:26)
[2021-07-16] MEDS: ACETAMINOPHEN 500 MG TAB PO SCH ×3 (08:27→22:08)
[2021-07-16 10:00] VITALS: BP 100/49
[2021-07-16 10:45] LABS: MAGNESIUM LEVEL 2.2 MG/DL (1.8-2.4)
[2021-07-16] MEDS: PERCOCET 5MG/325MG TAB PO PRN ×2 (12:10→22:03)
[2021-07-16 14:00] VITALS: BP 119/58
[2021-07-16] MEDS: RIVAROXABAN 15 MG TAB (XARELTO) PO SCH (17:06)
[2021-07-16] MEDS: TORSEMIDE 20 MG TAB PO SCH (17:06)
[2021-07-16 18:00] VITALS: BP 104/52
[2021-07-16 22:00] VITALS: BP 109/52
[2021-07-17] VITALS (7 sets, daily range): BP systolic 110–135; BP diastolic 47–58
[2021-07-17 06:16] LABS: HEMATOCRIT 29.3 % (36.0-47.0); HEMOGLOBIN 8.9 g/dl (12.0-15.5); MEAN CORPUSCULAR HEMOGLOBIN 28.4 pg (27.0-33.0); MEAN CORPUSCULAR HGB CONC 30.4 g/dl (32.0-36.5); MEAN CORPUSCULAR VOLUME 93.6 fl (80.0-96.0); PLATELET COUNT, AUTOMATED 130 10^3/uL (150-450); RED BLOOD COUNT 3.13 10^6/uL (4.00-5.40); WHITE BLOOD COUNT 4.8 10^3/uL (4.0-10.0)
[2021-07-17 06:39] LABS: CALCIUM LEVEL 9.6 MG/DL (8.8-10.2); CREATININE FOR GFR 1.58 MG/DL (0.55-1.30); GLOMERULAR FILTRATION RATE 33.6 (>39); POTASSIUM SERUM 4.2 MEQ/L (3.5-5.1)
[2021-07-17] MEDS: INSULIN LISPRO (NovoLOG) PER UNIT SC SCH ×4 (07:30→21:00)
[2021-07-17] MEDS: MAGNESIUM OXIDE 400MG TAB (MAG-OX) PO SCH (09:08)
[2021-07-17] MEDS: PANTOPRAZOLE 40MG TAB (PROTONIX) PO SCH ×2 (09:08→20:24)
[2021-07-17] MEDS: GABAPENTIN 300 MG CAP PO SCH ×2 (09:08→20:24)
[2021-07-17] MEDS: LORATADINE 10 MG TAB PO SCH (09:08)
[2021-07-17] MEDS: CitaloPRAM (CeleXA) 20 MG TAB PO SCH (09:08)
[2021-07-17] MEDS: FLUTICASONE PROP 0.05% NASAL SPRAY 16 GM (FLONASE) NARES SCH (09:09)
[2021-07-17] MEDS: TORSEMIDE 20 MG TAB PO SCH ×2 (09:09→17:31)
[2021-07-17] MEDS: ACETAMINOPHEN 500 MG TAB PO SCH ×3 (09:09→20:24)
[2021-07-17] MEDS: RIVAROXABAN 15 MG TAB (XARELTO) PO SCH (17:31)
[2021-07-18] MEDS: PERCOCET 5MG/325MG TAB PO PRN (00:46)
[2021-07-18 02:00] VITALS: BP 120/49
[2021-07-18 06:00] VITALS: BP 119/58
[2021-07-18 06:21] LABS: HEMATOCRIT 27.4 % (36.0-47.0); HEMOGLOBIN 8.6 g/dl (12.0-15.5); MEAN CORPUSCULAR HEMOGLOBIN 28.9 pg (27.0-33.0); MEAN CORPUSCULAR HGB CONC 31.4 g/dl (32.0-36.5); MEAN CORPUSCULAR VOLUME 91.9 fl (80.0-96.0); PLATELET COUNT, AUTOMATED 120 10^3/uL (150-450); RED BLOOD COUNT 2.98 10^6/uL (4.00-5.40); WHITE BLOOD COUNT 4.6 10^3/uL (4.0-10.0)
[2021-07-18 06:53] LABS: CALCIUM LEVEL 8.6 MG/DL (8.8-10.2); CREATININE FOR GFR 1.49 MG/DL (0.55-1.30); GLOMERULAR FILTRATION RATE 35.9 (>39); POTASSIUM SERUM 3.5 MEQ/L (3.5-5.1)
[2021-07-18] MEDS ORDERED: ANALGESIC BALM CRM 3OZ TOP PRN (08:00)
[2021-07-18] MEDS: PANTOPRAZOLE 40MG TAB (PROTONIX) PO SCH (08:10)
[2021-07-18] MEDS: CitaloPRAM (CeleXA) 20 MG TAB PO SCH (08:10)
[2021-07-18] MEDS: MAGNESIUM OXIDE 400MG TAB (MAG-OX) PO SCH (08:10)
[2021-07-18] MEDS: INSULIN LISPRO (NovoLOG) PER UNIT SC SCH (08:10)
[2021-07-18] MEDS: LORATADINE 10 MG TAB PO SCH (08:10)
[2021-07-18] MEDS: ACETAMINOPHEN 500 MG TAB PO SCH (08:11)
[2021-07-18] MEDS: GABAPENTIN 300 MG CAP PO SCH (08:11)
[2021-07-18 08:13] VITALS: BP 100/48
[2021-07-18] MEDS: FLUTICASONE PROP 0.05% NASAL SPRAY 16 GM (FLONASE) NARES SCH (08:13)
[2021-07-18] MEDS: TORSEMIDE 20 MG TAB PO SCH (09:00)
[2021-07-18] MEDS ORDERED: MUSCCRE9 TOP (09:33)
== END 2021-07-18 11:32 | DRG 292 ==
LOC: M ED 10:06 → M ED INP 16:32 → M PCU 22:55 → M MSPAV 07-14 16:08
PROVIDERS: ADMIT Internal Medicine; ATTEND Internal Medicine
DX: I50.33 Acute on chronic diastolic (congestive) heart failure (principal); G93.40 Encephalopathy, unspecified; E11.22 Type 2 diabetes mellitus with diabetic chronic kidney disease; J44.9 Chronic obstructive pulmonary disease, unspecified; I27.81 Cor pulmonale (chronic); N18.32 Chronic kidney disease, stage 3b; I48.91 Unspecified atrial fibrillation; I49.5 Sick sinus syndrome; D63.1 Anemia in chronic kidney disease; E66.01 Morbid (severe) obesity due to excess calories; D69.6 Thrombocytopenia, unspecified; R16.1 Splenomegaly, not elsewhere classified; G89.29 Other chronic pain; R09.02 Hypoxemia; F41.9 Anxiety disorder, unspecified; F32.A Depression, unspecified; Z95.0 Presence of cardiac pacemaker; Z90.49 Acquired absence of other specified parts of digestive tract; Z85.3 Personal history of malignant neoplasm of breast; Z92.3 Personal history of irradiation; Z87.891 Personal history of nicotine dependence; H54.7 Unspecified visual loss; I50.813 Acute on chronic right heart failure; L30.4 Erythema intertrigo; Z79.01 Long term (current) use of anticoagulants; Z79.899 Other long term (current) drug therapy; Z88.0 Allergy status to penicillin; Z88.1 Allergy status to other antibiotic agents; Z88.2 Allergy status to sulfonamides; Z88.5 Allergy status to narcotic agent; Z88.8 Allergy status to other drugs, medicaments and biological substances; Z68.36 Body mass index [BMI] 36.0-36.9, adult

== ENCOUNTER → 2021-07-23 | Outpatient (REF) | payer MEDICARE, OTHER, MEDICAID ==
[~2021-07-23] MED LIST changes: +MUSCCRE9 TOP
[2021-07-23 11:45] LABS: HEMOGLOBIN 8.9 g/dl (12.0-15.5); MEAN CORPUSCULAR HEMOGLOBIN 28.8 pg (27.0-33.0); MEAN CORPUSCULAR HGB CONC 30.7 g/dl (32.0-36.5); MEAN CORPUSCULAR VOLUME 93.9 fl (80.0-96.0); PLATELET COUNT, AUTOMATED 105 10^3/uL (150-450); RED BLOOD COUNT 3.09 10^6/uL (4.00-5.40)
[2021-07-23 12:23] LABS: CALCIUM LEVEL 9.2 MG/DL (8.8-10.2); CREATININE FOR GFR 1.9 MG/DL (0.55-1.30); GLOMERULAR FILTRATION RATE 27.1 (>39); POTASSIUM SERUM 4.7 MEQ/L (3.5-5.1)
== END ==
PROVIDERS: ATTEND Internal Medicine
DX: I50.9 Heart failure, unspecified (principal)

== ENCOUNTER → 2021-07-23 | Outpatient (CLI) | payer MEDICARE, OTHER, MEDICAID | LOC: M RAD 11:08 | PROVIDERS: ATTEND Internal Medicine | DX: R06.02 Shortness of breath (principal); I50.9 Heart failure, unspecified ==

== ENCOUNTER → 2021-07-30 | Outpatient (REF) | payer MEDICARE, OTHER, MEDICAID ==
[2021-07-30 10:44] LABS: HEMOGLOBIN 8.8 g/dl (12.0-15.5); MEAN CORPUSCULAR HEMOGLOBIN 29.4 pg (27.0-33.0); MEAN CORPUSCULAR HGB CONC 30.3 g/dl (32.0-36.5); PLATELET COUNT, AUTOMATED 104 10^3/uL (150-450); RED BLOOD COUNT 2.99 10^6/uL (4.00-5.40); WHITE BLOOD COUNT 5.8 10^3/uL (4.0-10.0)
[2021-07-30 11:15] LABS: CALCIUM LEVEL 8.8 MG/DL (8.8-10.2); CREATININE FOR GFR 1.81 MG/DL (0.55-1.30); GLOMERULAR FILTRATION RATE 28.7 (>39); POTASSIUM SERUM 4.3 MEQ/L (3.5-5.1)
== END ==
PROVIDERS: ATTEND Internal Medicine
DX: I50.9 Heart failure, unspecified (principal)

== ENCOUNTER → 2021-08-02 | Outpatient (CLI) | payer MEDICARE, OTHER, MEDICAID | LOC: M SOG 08:24 | PROVIDERS: ATTEND Orthopaedic Surgery Adult Reconstructive Orthopaedic Surgery | DX: S32.402D Unspecified fracture of left acetabulum, subsequent encounter for fracture with routine healing (principal) ==

== ENCOUNTER → 2021-08-21 | Outpatient (REF) | payer MEDICARE, OTHER, MEDICAID ==
[2021-08-21 17:30] LABS: CALCIUM LEVEL 11.5 MG/DL (8.8-10.2); CREATININE FOR GFR 1.78 MG/DL (0.55-1.30); GLOMERULAR FILTRATION RATE 29.3 (>39); POTASSIUM SERUM 3.9 MEQ/L (3.5-5.1)
== END ==
PROVIDERS: ATTEND Physician Assistant
DX: R60.9 Edema, unspecified (principal)

== ENCOUNTER → 2021-08-22 | Outpatient (REF) | PROVIDERS: ATTEND Internal Medicine | DX: I50.9 Heart failure, unspecified (principal); Z95.0 Presence of cardiac pacemaker ==

== ENCOUNTER → 2021-08-27 | Outpatient (REF) | payer MEDICARE, OTHER, MEDICAID ==
[2021-08-27 10:24] LABS: CALCIUM LEVEL 10.2 MG/DL (8.8-10.2); CREATININE FOR GFR 2.05 MG/DL (0.55-1.30); GLOMERULAR FILTRATION RATE 24.9 (>39); POTASSIUM SERUM 4.5 MEQ/L (3.5-5.1)
== END ==
PROVIDERS: ATTEND Internal Medicine
DX: N18.9 Chronic kidney disease, unspecified (principal); I50.9 Heart failure, unspecified

== ENCOUNTER → 2021-08-30 | Outpatient (REF) | payer MEDICARE, OTHER, MEDICAID ==
[2021-08-30 15:42] LABS: HEMATOCRIT 29.8 % (36.0-47.0); HEMOGLOBIN 9.3 g/dl (12.0-15.5); MEAN CORPUSCULAR HEMOGLOBIN 28.6 pg (27.0-33.0); MEAN CORPUSCULAR HGB CONC 31.2 g/dl (32.0-36.5); MEAN CORPUSCULAR VOLUME 91.7 fl (80.0-96.0); PLATELET COUNT, AUTOMATED 112 10^3/uL (150-450); RED BLOOD COUNT 3.25 10^6/uL (4.00-5.40); WHITE BLOOD COUNT 7.1 10^3/uL (4.0-10.0)
[2021-08-30 16:32] LABS: CALCIUM LEVEL 10.7 MG/DL (8.8-10.2); CREATININE FOR GFR 2.22 MG/DL (0.55-1.30); GLOMERULAR FILTRATION RATE 22.7 (>39); POTASSIUM SERUM 3.6 MEQ/L (3.5-5.1)
== END ==
PROVIDERS: ATTEND Physician Assistant
DX: I50.9 Heart failure, unspecified (principal)

== ENCOUNTER → 2021-08-31 | Outpatient (CLI) | payer MEDICARE, OTHER ==
[~2021-08-31] MED LIST changes: +BUPIVACAINE HCL 0.5% 30ML VIAL As Ordered ONE; +ISOVUE-300 61% 50ML VIAL As Ordered ONE; +LIDOCAINE 1% MDV 20ML VIAL As Ordered ONE; +methylPREDNISolone 80MG/ML SUSP 1ML VIAL (J1040) As Ordered ONE
== END ==
LOC: M RADPRO 10:13
PROVIDERS: ATTEND Orthopaedic Surgery Adult Reconstructive Orthopaedic Surgery
DX: S32.402D Unspecified fracture of left acetabulum, subsequent encounter for fracture with routine healing (principal)
CPT/HCPCS: 20610; 76000; J1040; Q9967

== ENCOUNTER → 2021-09-03 | Outpatient (REF) | payer MEDICARE, OTHER ==
[~2021-09-03] MED LIST changes: -BUPIVACAINE HCL 0.5% 30ML VIAL As Ordered ONE; -ISOVUE-300 61% 50ML VIAL As Ordered ONE; -LIDOCAINE 1% MDV 20ML VIAL As Ordered ONE; -methylPREDNISolone 80MG/ML SUSP 1ML VIAL (J1040) As Ordered ONE
[2021-09-03 11:14] LABS: HEMATOCRIT 29.5 % (36.0-47.0); HEMOGLOBIN 9.3 g/dl (12.0-15.5); MEAN CORPUSCULAR HEMOGLOBIN 29.6 pg (27.0-33.0); MEAN CORPUSCULAR HGB CONC 31.5 g/dl (32.0-36.5); MEAN CORPUSCULAR VOLUME 93.9 fl (80.0-96.0); PLATELET COUNT, AUTOMATED 128 10^3/uL (150-450); RED BLOOD COUNT 3.14 10^6/uL (4.00-5.40); WHITE BLOOD COUNT 6.4 10^3/uL (4.0-10.0)
[2021-09-03 12:19] LABS: CALCIUM LEVEL 10.5 MG/DL (8.8-10.2); CREATININE FOR GFR 1.89 MG/DL (0.55-1.30); GLOMERULAR FILTRATION RATE 27.3 (>39); POTASSIUM SERUM 3.7 MEQ/L (3.5-5.1)
== END ==
PROVIDERS: ATTEND Physician Assistant
DX: I50.9 Heart failure, unspecified (principal)

== ENCOUNTER → 2021-09-06 | Outpatient (REF) | payer MEDICARE, OTHER ==
[2021-09-06 18:46] LABS: CALCIUM LEVEL 9.7 MG/DL (8.8-10.2); CREATININE FOR GFR 1.88 MG/DL (0.55-1.30); GLOMERULAR FILTRATION RATE 27.5 (>39); POTASSIUM SERUM 4.1 MEQ/L (3.5-5.1)
== END ==
PROVIDERS: ATTEND Physician Assistant
DX: I50.9 Heart failure, unspecified (principal)

== ENCOUNTER → 2021-09-19 | Outpatient (REF) | payer MEDICARE, OTHER ==
[~2021-09-19] MED LIST changes: +LEVO1TAB38 PO; +LEVO1TAB40 PO; -LEVO250T3 PO; -LEVO750T13 PO; +NYST-13 EXT; +NYST-13 TOP; -NYST10CR EXT; -NYST10CR TOP
[2021-09-19 11:56] LABS: HEMATOCRIT 30.3 % (36.0-47.0); HEMOGLOBIN 9.3 g/dl (12.0-15.5); MEAN CORPUSCULAR HGB CONC 30.7 g/dl (32.0-36.5); MEAN CORPUSCULAR VOLUME 94.4 fl (80.0-96.0); PLATELET COUNT, AUTOMATED 104 10^3/uL (150-450); RED BLOOD COUNT 3.21 10^6/uL (4.00-5.40); WHITE BLOOD COUNT 6.7 10^3/uL (4.0-10.0)
[2021-09-19 13:42] LABS: CREATININE FOR GFR 1.78 MG/DL (0.55-1.30); GLOMERULAR FILTRATION RATE 29.3 (>39); POTASSIUM SERUM 4.2 MEQ/L (3.5-5.1)
== END ==
PROVIDERS: ATTEND Physician Assistant
DX: N18.9 Chronic kidney disease, unspecified (principal); D63.1 Anemia in chronic kidney disease

== ENCOUNTER → 2021-09-24 | Outpatient (REF) | payer MEDICARE, OTHER ==
[2021-09-24 16:29] LABS: HEMATOCRIT 31.1 % (36.0-47.0); HEMOGLOBIN 9.6 g/dl (12.0-15.5); MEAN CORPUSCULAR HEMOGLOBIN 29.4 pg (27.0-33.0); MEAN CORPUSCULAR HGB CONC 30.9 g/dl (32.0-36.5); MEAN CORPUSCULAR VOLUME 95.1 fl (80.0-96.0); PLATELET COUNT, AUTOMATED 117 10^3/uL (150-450); RED BLOOD COUNT 3.27 10^6/uL (4.00-5.40); WHITE BLOOD COUNT 7.2 10^3/uL (4.0-10.0)
[2021-09-24 22:47] LABS: CALCIUM LEVEL 9.8 MG/DL (8.8-10.2); CREATININE FOR GFR 1.77 MG/DL (0.55-1.30); GLOMERULAR FILTRATION RATE 29.5 (>39); POTASSIUM SERUM 4.1 MEQ/L (3.5-5.1)
== END ==
PROVIDERS: ATTEND Physician Assistant
DX: R29.6 Repeated falls (principal)

== ENCOUNTER → 2021-09-26 | Outpatient (REF) | payer MEDICARE, OTHER ==
[2021-09-26 10:43] LABS: HEMOGLOBIN 8.6 g/dl (12.0-15.5); MEAN CORPUSCULAR HEMOGLOBIN 29.3 pg (27.0-33.0); MEAN CORPUSCULAR HGB CONC 30.7 g/dl (32.0-36.5); MEAN CORPUSCULAR VOLUME 95.2 fl (80.0-96.0); PLATELET COUNT, AUTOMATED 101 10^3/uL (150-450); RED BLOOD COUNT 2.94 10^6/uL (4.00-5.40); WHITE BLOOD COUNT 5.6 10^3/uL (4.0-10.0)
[2021-09-26 11:31] LABS: CALCIUM LEVEL 9.2 MG/DL (8.8-10.2); CREATININE FOR GFR 1.9 MG/DL (0.55-1.30); GLOMERULAR FILTRATION RATE 27.1 (>39); POTASSIUM SERUM 4.1 MEQ/L (3.5-5.1)
== END ==
PROVIDERS: ATTEND Internal Medicine
DX: E11.9 Type 2 diabetes mellitus without complications (principal); I50.9 Heart failure, unspecified

== ENCOUNTER → 2021-09-27 | Outpatient (CLI) | payer MEDICARE, OTHER | PROVIDERS: ATTEND Internal Medicine | DX: R05.9 Cough, unspecified (principal) ==

== ENCOUNTER → 2021-10-02 | Outpatient (REF) | payer MEDICARE, OTHER ==
[2021-10-02 14:51] LABS: HEMATOCRIT 30.3 % (36.0-47.0); HEMOGLOBIN 9.4 g/dl (12.0-15.5); MEAN CORPUSCULAR HEMOGLOBIN 29.3 pg (27.0-33.0); MEAN CORPUSCULAR VOLUME 94.4 fl (80.0-96.0); PLATELET COUNT, AUTOMATED 123 10^3/uL (150-450); RED BLOOD COUNT 3.21 10^6/uL (4.00-5.40); WHITE BLOOD COUNT 6.2 10^3/uL (4.0-10.0)
[2021-10-02 15:32] LABS: CALCIUM LEVEL 10.1 MG/DL (8.8-10.2); CREATININE FOR GFR 1.9 MG/DL (0.55-1.30); GLOMERULAR FILTRATION RATE 27.1 (>39); POTASSIUM SERUM 3.8 MEQ/L (3.5-5.1)
== END ==
PROVIDERS: ATTEND Physician Assistant
DX: L03.119 Cellulitis of unspecified part of limb (principal); I50.9 Heart failure, unspecified

== ENCOUNTER → 2021-10-03 | Outpatient (REF) | payer MEDICARE, OTHER ==
[2021-10-03 11:47] LABS: HEMATOCRIT 30.1 % (36.0-47.0); HEMOGLOBIN 9.1 g/dl (12.0-15.5); MEAN CORPUSCULAR HEMOGLOBIN 29.2 pg (27.0-33.0); MEAN CORPUSCULAR HGB CONC 30.2 g/dl (32.0-36.5); MEAN CORPUSCULAR VOLUME 96.5 fl (80.0-96.0); PLATELET COUNT, AUTOMATED 117 10^3/uL (150-450); RED BLOOD COUNT 3.12 10^6/uL (4.00-5.40); WHITE BLOOD COUNT 6.2 10^3/uL (4.0-10.0)
== END ==
PROVIDERS: ATTEND Internal Medicine
DX: D64.9 Anemia, unspecified (principal)

== ENCOUNTER → 2021-10-17 | Outpatient (REF) | payer MEDICARE, OTHER ==
[~2021-10-17] MED LIST changes: +ACET500T15 PO; +ALB2.5NEB INH; +APAP325T4 PO; +BACL10TA2 PO; +BIMA0.036 OU; -BIMA1SOL OU; +HYDR-3715 PO; +METH85CR12 TOP; +MIDO5TA PO; +PANT20TA6 PO; +PROC20004 INJ; +RISATAB3 PO; +XALA0.007 OU; +ZYVO1TAB PO
[2021-10-17 11:44] LABS: ALBUMIN 3.2 GM/DL (3.2-5.2); BILIRUBIN,TOTAL 0.9 MG/DL (0.2-1.0); CALCIUM LEVEL 9.8 MG/DL (8.8-10.2); CREATININE FOR GFR 2.24 MG/DL (0.55-1.30); GLOMERULAR FILTRATION RATE 22.4 (>39); TOTAL PROTEIN 5.7 GM/DL (6.4-8.2)
== END ==
PROVIDERS: ATTEND Physician Assistant
DX: R05.9 Cough, unspecified (principal); D64.9 Anemia, unspecified

== ENCOUNTER → 2021-10-17 | Outpatient (REF) | payer MEDICARE, OTHER ==
[2021-10-17 09:26] LABS: HEMATOCRIT 25.3 % (36.0-47.0); HEMOGLOBIN 7.9 g/dl (12.0-15.5); MEAN CORPUSCULAR HGB CONC 31.2 g/dl (32.0-36.5); MEAN CORPUSCULAR VOLUME 99.2 fl (80.0-96.0); RED BLOOD COUNT 2.55 10^6/uL (4.00-5.40); WHITE BLOOD COUNT 6.6 10^3/uL (4.0-10.0)
[2021-10-17 09:35] LABS: PLATELET COUNT, AUTOMATED 99 10^3/uL (150-450)
== END ==
PROVIDERS: ATTEND Internal Medicine
DX: D64.9 Anemia, unspecified (principal)

== ENCOUNTER → 2021-10-17 | Outpatient (CLI) | payer MEDICARE, OTHER ==
[~2021-10-17] MED LIST changes: -ACET500T15 PO; -ALB2.5NEB INH; -APAP325T4 PO; -BACL10TA2 PO; -BIMA0.036 OU; +BIMA1SOL OU; -HYDR-3715 PO; -METH85CR12 TOP; -MIDO5TA PO; -PANT20TA6 PO; -PROC20004 INJ; -RISATAB3 PO; -XALA0.007 OU; -ZYVO1TAB PO
== END ==
PROVIDERS: ATTEND Internal Medicine
DX: R05.9 Cough, unspecified (principal); I51.7 Cardiomegaly

== ENCOUNTER → 2021-10-23 | Outpatient (REF) | payer MEDICARE, OTHER ==
[~2021-10-23] MED LIST changes: +ACET500T15 PO; +ALB2.5NEB INH; +APAP325T4 PO; +BACL10TA2 PO; +BIMA0.036 OU; -BIMA1SOL OU; +METH85CR12 TOP; +MIDO5TA PO; +PANT20TA6 PO; +PROC20004 INJ; +XALA0.007 OU
== END ==
PROVIDERS: ATTEND Physician Assistant
DX: I50.9 Heart failure, unspecified (principal); Z53.8 Procedure and treatment not carried out for other reasons

== ENCOUNTER → 2021-10-25 | Outpatient (REF) | payer MEDICARE, OTHER ==
[2021-10-25 11:39] LABS: HEMATOCRIT 28.1 % (36.0-47.0); HEMOGLOBIN 8.5 g/dl (12.0-15.5); MEAN CORPUSCULAR HGB CONC 30.2 g/dl (32.0-36.5); MEAN CORPUSCULAR VOLUME 102.6 fl (80.0-96.0); PLATELET COUNT, AUTOMATED 106 10^3/uL (150-450); RED BLOOD COUNT 2.74 10^6/uL (4.00-5.40); WHITE BLOOD COUNT 10.2 10^3/uL (4.0-10.0)
[2021-10-25 12:42] LABS: CALCIUM LEVEL 11.6 MG/DL (8.8-10.2); CREATININE FOR GFR 2.2 MG/DL (0.55-1.30); GLOMERULAR FILTRATION RATE 22.9 (>39); POTASSIUM SERUM 4.8 MEQ/L (3.5-5.1)
== END ==
PROVIDERS: ATTEND Physician Assistant
DX: R05.8 Other specified cough (principal); I50.9 Heart failure, unspecified; Z79.899 Other long term (current) drug therapy

== ENCOUNTER → 2021-10-25 | Outpatient (REF) | payer MEDICARE, OTHER | PROVIDERS: ATTEND Internal Medicine | DX: N18.9 Chronic kidney disease, unspecified (principal) ==

== ENCOUNTER 2021-10-26 10:41 | Inpatient (IN) | payer MEDICARE, OTHER ==
[~2021-10-26] VITALS: Ht 157.5 cm; Wt 108.7 kg
[~2021-10-26 10:41] MED LIST changes: -ACET500T15 PO; -ALB2.5NEB INH; -APAP325T4 PO; -BACL10TA2 PO; -DOXY-342 PO; -DOXY-350 PO; +DOXY-444 PO; +DOXY100C81 PO; -METH85CR12 TOP; -MIDO5TA PO; -PANT20TA6 PO; -PROC20004 INJ; -XALA0.007 OU
[2021-10-26] MEDS ORDERED: VANCOMYCIN HCL 2,000 MG in D5W 500 ML IV ONE (11:45)
[2021-10-26] MEDS ORDERED: GLUC1KIT IM (11:57)
[2021-10-26] MEDS ORDERED: ACET500T15 PO (11:57)
[2021-10-26] MEDS ORDERED: APAP325T4 PO (11:57)
[2021-10-26] MEDS ORDERED: PROC20004 INJ (11:57)
[2021-10-26] MEDS ORDERED: XALA0.007 OU (11:57)
[2021-10-26] MEDS ORDERED: BACL10TA2 PO (11:57)
[2021-10-26] MEDS ORDERED: METH85CR12 TOP (11:57)
[2021-10-26] MEDS ORDERED: TORS20TA2 PO ×2 (11:57→14:43)
[2021-10-26] MEDS ORDERED: VANCOMYCIN HCL 1,000 MG, VIAL MATE ADAPTER 1 EACH in NS 250 ML IV ONE ×2 (12:00→13:00)
[2021-10-26 12:02] LABS: VENOUS BASE EXCESS 1.9 (-2.0-2.0); VENOUS HCO3 26.8 MEQ/L (23.0-27.0); VENOUS O2 SATURATION 73.9 % (60.0-80.0); VENOUS PARTIAL PRESSURE CO2 43.4 mmHg (38.0-50.0); VENOUS PARTIAL PRESSURE O2 43.2 mmHg (30.0-50.0); VENOUS PH 7.409 UNITS (7.330-7.430); VENOUS STANDARD HCO3 25.9 MEQ/L; VENOUS TOTAL CO2 28.2 MEQ/L (24.0-28.0)
[2021-10-26 12:13] LABS: BASO % 0.3 % (0.0-1.0); EOS # 0.1 10^3/uL (0.0-0.5); EOS % 0.9 % (0.0-3.0); HEMATOCRIT 24.9 % (36.0-47.0); HEMOGLOBIN 7.6 g/dl (12.0-15.5); LYMPH # 1.3 10^3/uL (1.5-5.0); LYMPH % 14.4 % (24.0-44.0); MEAN CORPUSCULAR HEMOGLOBIN 31.3 pg (27.0-33.0); MEAN CORPUSCULAR HGB CONC 30.5 g/dl (32.0-36.5); MEAN CORPUSCULAR VOLUME 102.5 fl (80.0-96.0); MONO # 0.9 10^3/uL (0.0-0.8); MONO % 9.8 % (2.0-8.0); NEUTROPHILS # 6.8 10^3/uL (1.5-8.5); NEUTROPHILS % 74.1 % (36.0-66.0); PLATELET COUNT, AUTOMATED 104 10^3/uL (150-450); RED BLOOD COUNT 2.43 10^6/uL (4.00-5.40); WHITE BLOOD COUNT 9.1 10^3/uL (4.0-10.0)
[2021-10-26 12:36] LABS: CK-MB VALUE MASS < 1.0 NG/ML (<3.6); CPK CREATINE PHOSPHOKINASE 10 U/L (26-192)
[2021-10-26 12:42] LABS: RSV AMPLIFICATION NEGATIVE (NEGATIVE)
[2021-10-26 12:47] LABS: BILIRUBIN,DIRECT 0.4 MG/DL (0.0-0.2); BILIRUBIN,TOTAL 1.1 MG/DL (0.2-1.0); C REACTIVE PROTEIN QUANTITATIV 21.1 MG/DL (0.00-0.30); CREATININE FOR GFR 2.3 MG/DL (0.55-1.30); GLOMERULAR FILTRATION RATE 21.8 (>39); POTASSIUM SERUM 4.1 MEQ/L (3.5-5.1); THYROID STIMULATING HORMONE 1.89 uIU/ML (0.358-3.740); TOTAL PROTEIN 5.3 GM/DL (6.4-8.2)
[2021-10-26 12:54] LABS: ERYTHROCYTE SEDIMENTATION RATE 69 mm/hr (0-30)
[2021-10-26] MEDS ORDERED: MIDO5TA PO (13:29)
[2021-10-26] MEDS ORDERED: ADV500INH INH (13:29)
[2021-10-26] MEDS ORDERED: PANT20TA6 PO (13:29)
[2021-10-26] MEDS ORDERED: ALB2.5NEB INH (13:29)
[2021-10-26] MEDS ORDERED: HOME MED LIST COMPLETE! XX SCH (13:35)
[2021-10-26] MEDS ORDERED: FLEET ENEMA PR PRN (15:00)
[2021-10-26] MEDS ORDERED: GLUCAGON INJ 1MG VIAL IM PRN (15:00)
[2021-10-26] MEDS ORDERED: ALBUTEROL 90 MCG/ACT 8GM HFA INHALER INH PRN (15:00)
[2021-10-26] MEDS ORDERED: MOM 30ML SUSPENSION UDC PO PRN (15:00)
[2021-10-26] MEDS ORDERED: BISACODYL 10 MG SUPP PR PRN (15:00)
[2021-10-26 15:16] LABS: INR 1.72; PROTHROMBIN TIME 20.6 SECONDS (12.7-14.5)
[2021-10-26 15:17] LABS: PARTIAL THROMBOPLASTIN TIME 45.1 SECONDS (25.9-37.0)
[2021-10-26] MEDS ORDERED: ceFAZolin SOD 1 GM in D5W MINI-BAG PLUS 50 ML IV SCH (16:00)
[2021-10-26] MEDS: MIDODRINE 5 MG TAB PO SCH ×2 (16:00→17:55)
[2021-10-26 16:25] VITALS: BP 105/62
[2021-10-26 17:38] LABS: PERCENT SATURATION 8.7 % (13.2-45.0)
[2021-10-26] MEDS: FUROSEMIDE 100MG/10ML VIAL (J1940) IV SCH (18:03)
[2021-10-26 19:04] LABS: HEMATOCRIT 25.5 % (36.0-47.0); HEMOGLOBIN 7.8 g/dl (12.0-15.5)
[2021-10-26 19:08] LABS: VENOUS BASE EXCESS 1.1 (-2.0-2.0); VENOUS HCO3 24.7 MEQ/L (23.0-27.0); VENOUS O2 SATURATION 98.1 % (60.0-80.0); VENOUS PARTIAL PRESSURE CO2 34.7 mmHg (38.0-50.0); VENOUS PARTIAL PRESSURE O2 114.6 mmHg (30.0-50.0); VENOUS STANDARD HCO3 25.5 MEQ/L; VENOUS TOTAL CO2 25.8 MEQ/L (24.0-28.0)
[2021-10-26] MEDS: ADVAIR HFA 230/21MCG INHALER INH SCH (19:22)
[2021-10-26] MEDS: ALBUTEROL SULFATE 2.5 MG/0.5 ML INH NEB SOLN INH SCH (19:24)
[2021-10-26 20:40] VITALS: BP 100/56
[2021-10-26] MEDS ORDERED: TORSEMIDE 20 MG TAB PO SCH (21:00)
[2021-10-26] MEDS ORDERED: RIVAROXABAN 15MG TAB (XARELTO) PO SCH (21:00)
[2021-10-26] MEDS: ACETAMINOPHEN 500 MG TAB PO SCH (22:04)
[2021-10-26] MEDS: ENOXAPARIN 100MG/1ML SYRINGE (J1650 PER 10MG) SC SCH (22:04)
[2021-10-26] MEDS: LATANOPROST 0.005% OPHTH SOLN 2.5 ML OU SCH (22:05)
[2021-10-26] MEDS: GABAPENTIN 300 MG CAP PO SCH (22:05)
[2021-10-26] MEDS: PIPERACILLIN/TAZOBACTAM SOD 3.375 GM in D5W MINI-BAG PLUS 50 ML IV SCH (22:21)
[2021-10-27] VITALS (26 sets, daily range): BP systolic 76–132; BP diastolic 36–93; O2SAT 93
[2021-10-27] MEDS: NYSTATIN CREAM 15GM EXT SCH ×3 (00:52→20:15)
[2021-10-27] MEDS: FUROSEMIDE 100MG/10ML VIAL (J1940) IV SCH (02:00)
[2021-10-27] MEDS: IPRATROPIUM 0.5MG/ALBUTEROL 2.5MG INH SOL UD 3ML (DUONEB) INH PRN (02:24)
[2021-10-27 02:40] LABS: ABG BASE EXCESS 5.2 (-2.0-2.0); ABG HCO3 29.8 MEQ/L (22.0-26.0); ABG O2 SATURATION 99.8 % (95.0-99.0); ABG PARTIAL PRESSURE CO2 44.4 mmHg (35.0-45.0); ABG PARTIAL PRESSURE O2 213.2 mmHg (75.0-100.0); ABG STANDARD HCO3 29.2 MEQ/L (22.0-26.0); ABG TOTAL CO2 31.2 MEQ/L (23.0-31.0); ABG pH (ARTERIAL) 7.445 UNITS (7.350-7.450)
[2021-10-27 02:45] LABS: HEMATOCRIT 22.5 % (36.0-47.0); MEAN CORPUSCULAR HEMOGLOBIN 31.4 pg (27.0-33.0); MEAN CORPUSCULAR HGB CONC 31.1 g/dl (32.0-36.5); MEAN CORPUSCULAR VOLUME 100.9 fl (80.0-96.0); PLATELET COUNT, AUTOMATED 105 10^3/uL (150-450); RED BLOOD COUNT 2.23 10^6/uL (4.00-5.40); WHITE BLOOD COUNT 7.9 10^3/uL (4.0-10.0)
[2021-10-27] MEDS: PIPERACILLIN/TAZOBACTAM SOD 3.375 GM in D5W MINI-BAG PLUS 50 ML IV SCH ×4 (03:13→20:14)
[2021-10-27 03:15] LABS: CALCIUM LEVEL 10.3 MG/DL (8.8-10.2); CREATININE FOR GFR 2.35 MG/DL (0.55-1.30); GLOMERULAR FILTRATION RATE 21.2 (>39); MAGNESIUM LEVEL 2.6 MG/DL (1.8-2.4); POTASSIUM SERUM 3.9 MEQ/L (3.5-5.1)
[2021-10-27] MEDS ORDERED: SODIUM CHLORIDE 0.9% 1000ML IV ONE ×3 (03:35→04:55)
[2021-10-27] MEDS: MIDODRINE 5 MG TAB PO SCH ×3 (05:00→15:27)
[2021-10-27] MEDS ORDERED: NS 500 ML IV ONE ×2 (06:00→18:10)
[2021-10-27 06:53] LABS: HEMATOCRIT 21.1 % (36.0-47.0); MEAN CORPUSCULAR HEMOGLOBIN 31.4 pg (27.0-33.0); MEAN CORPUSCULAR HGB CONC 30.8 g/dl (32.0-36.5); MEAN CORPUSCULAR VOLUME 101.9 fl (80.0-96.0); PLATELET COUNT, AUTOMATED 101 10^3/uL (150-450); RED BLOOD COUNT 2.07 10^6/uL (4.00-5.40); WHITE BLOOD COUNT 7.1 10^3/uL (4.0-10.0)
[2021-10-27 07:02] LABS: HEMOGLOBIN 6.5 g/dl (12.0-15.5)
[2021-10-27 07:20] LABS: CALCIUM LEVEL 9.7 MG/DL (8.8-10.2); CREATININE FOR GFR 2.34 MG/DL (0.55-1.30); GLOMERULAR FILTRATION RATE 21.3 (>39); POTASSIUM SERUM 3.7 MEQ/L (3.5-5.1)
[2021-10-27] MEDS: BUDESONIDE 0.5 MG/2 ML INHALATION SUSPENSION INH SCH ×2 (07:22→19:06)
[2021-10-27] MEDS: ADVAIR HFA 230/21MCG INHALER INH SCH ×2 (07:22→19:09)
[2021-10-27] MEDS: ALBUTEROL SULFATE 2.5 MG/0.5 ML INH NEB SOLN INH SCH ×3 (07:22→19:06)
[2021-10-27] MEDS: ENOXAPARIN 100MG/1ML SYRINGE (J1650 PER 10MG) SC SCH ×3 (09:00→20:14)
[2021-10-27] MEDS: FLUTICASONE PROP 0.05% NASAL SPRAY 16 GM (FLONASE) NARES SCH (09:00)
[2021-10-27] MEDS ORDERED: SPIRONOLACTONE 50 MG TAB PO SCH (09:00)
[2021-10-27] MEDS ORDERED: PANTOPRAZOLE 20 MG TAB PO SCH (09:00)
[2021-10-27 09:50] LABS: VANCOMYCIN RANDOM 15.9 UG/ML
[2021-10-27] MEDS: ACETAMINOPHEN 500 MG TAB PO SCH ×2 (10:03→20:13)
[2021-10-27] MEDS: MAGNESIUM OXIDE 400MG TAB (MAG-OX) PO SCH (10:04)
[2021-10-27] MEDS: LORATADINE 10 MG TAB PO SCH (10:04)
[2021-10-27] MEDS: CitaloPRAM (CeleXA) 20 MG TAB PO SCH (10:04)
[2021-10-27] MEDS: GABAPENTIN 300 MG CAP PO SCH ×2 (10:04→20:13)
[2021-10-27] MEDS: PANTOPRAZOLE 40MG VIAL IV SCH (10:05)
[2021-10-27 12:43] LABS: HEMATOCRIT 22.8 % (36.0-47.0); HEMOGLOBIN 7.2 g/dl (12.0-15.5); MEAN CORPUSCULAR HEMOGLOBIN 31.2 pg (27.0-33.0); MEAN CORPUSCULAR HGB CONC 31.6 g/dl (32.0-36.5); MEAN CORPUSCULAR VOLUME 98.7 fl (80.0-96.0); PLATELET COUNT, AUTOMATED 106 10^3/uL (150-450); RED BLOOD COUNT 2.31 10^6/uL (4.00-5.40); WHITE BLOOD COUNT 7.5 10^3/uL (4.0-10.0)
[2021-10-27] MEDS: VANCOMYCIN HCL 750 MG, VIAL MATE ADAPTER 1 EACH in D5W 250 ML IV SCH (12:59)
[2021-10-27] MEDS ORDERED: VANCOMYCIN HCL 1,000 MG, VIAL MATE ADAPTER 1 EACH in D5W 250 ML IV SCH (13:00)
[2021-10-27] MEDS: MORPHINE 2 MG/ML 1ML VIAL IV PRN ×2 (13:09→17:51)
[2021-10-27] MEDS ORDERED: DEXTROSE 50% 50 ML SYRINGE IV PRN (15:40)
[2021-10-27] MEDS ORDERED: GLUCOSE 4GM CHEW TABLET PO PRN (15:40)
[2021-10-27] MEDS ORDERED: GLUCAGON INJ 1MG VIAL SC PRN (15:40)
[2021-10-27] MEDS ORDERED: MORPHINE 2 MG/ML 1ML VIAL IV ONE (17:20)
[2021-10-27] MEDS: INSULIN LISPRO (NovoLOG) PER UNIT SC SCH ×2 (17:30→20:13)
[2021-10-27 20:04] LABS: HEMATOCRIT 24.4 % (36.0-47.0); HEMOGLOBIN 7.5 g/dl (12.0-15.5)
[2021-10-27] MEDS: LATANOPROST 0.005% OPHTH SOLN 2.5 ML OU SCH (20:15)
[2021-10-27] MEDS: NORCO, ANEXSIA 5/325MG TABLET (HYDROcodone/ACETAMINOPHEN) PO PRN (23:17)
[2021-10-28] VITALS (35 sets, daily range): BP systolic 80–124; BP diastolic 35–84; O2SAT 97
[2021-10-28] MEDS: PIPERACILLIN/TAZOBACTAM SOD 3.375 GM in D5W MINI-BAG PLUS 50 ML IV SCH ×4 (02:17→20:42)
[2021-10-28 04:35] LABS: HEMATOCRIT 24.4 % (36.0-47.0); HEMOGLOBIN 7.7 g/dl (12.0-15.5); MEAN CORPUSCULAR HEMOGLOBIN 31.6 pg (27.0-33.0); MEAN CORPUSCULAR HGB CONC 31.6 g/dl (32.0-36.5); PLATELET COUNT, AUTOMATED 108 10^3/uL (150-450); RED BLOOD COUNT 2.44 10^6/uL (4.00-5.40); WHITE BLOOD COUNT 6.7 10^3/uL (4.0-10.0)
[2021-10-28 05:10] LABS: CALCIUM LEVEL 9.6 MG/DL (8.8-10.2); CREATININE FOR GFR 2.05 MG/DL (0.55-1.30); GLOMERULAR FILTRATION RATE 24.9 (>39); POTASSIUM SERUM 3.6 MEQ/L (3.5-5.1)
[2021-10-28] MEDS: NORCO, ANEXSIA 5/325MG TABLET (HYDROcodone/ACETAMINOPHEN) PO PRN ×2 (06:21→20:42)
[2021-10-28] MEDS: ADVAIR HFA 230/21MCG INHALER INH SCH ×2 (07:10→20:09)
[2021-10-28] MEDS: BUDESONIDE 0.5 MG/2 ML INHALATION SUSPENSION INH SCH ×2 (07:11→20:09)
[2021-10-28] MEDS: ALBUTEROL SULFATE 2.5 MG/0.5 ML INH NEB SOLN INH SCH ×3 (07:11→20:09)
[2021-10-28] MEDS: ENOXAPARIN 100MG/1ML SYRINGE (J1650 PER 10MG) SC SCH ×2 (08:51→20:42)
[2021-10-28] MEDS: PANTOPRAZOLE 40MG VIAL IV SCH (08:51)
[2021-10-28] MEDS: INSULIN LISPRO (NovoLOG) PER UNIT SC SCH ×5 (08:52→21:00)
[2021-10-28] MEDS: ACETAMINOPHEN 500 MG TAB PO SCH ×2 (08:53→21:00)
[2021-10-28] MEDS: LORATADINE 10 MG TAB PO SCH (08:53)
[2021-10-28] MEDS: MIDODRINE 5 MG TAB PO SCH ×3 (08:53→16:01)
[2021-10-28] MEDS: MAGNESIUM OXIDE 400MG TAB (MAG-OX) PO SCH (08:53)
[2021-10-28] MEDS: CitaloPRAM (CeleXA) 20 MG TAB PO SCH (08:54)
[2021-10-28] MEDS: GABAPENTIN 300 MG CAP PO SCH ×2 (08:54→20:42)
[2021-10-28] MEDS: NYSTATIN CREAM 15GM EXT SCH ×2 (08:54→20:57)
[2021-10-28] MEDS: VANCOMYCIN HCL 750 MG, VIAL MATE ADAPTER 1 EACH in D5W 250 ML IV SCH (12:54)
[2021-10-28] MEDS: FLUTICASONE PROP 0.05% NASAL SPRAY 16 GM (FLONASE) NARES SCH (12:54)
[2021-10-28] MEDS: MORPHINE 2 MG/ML 1ML VIAL IV PRN (18:17)
[2021-10-28] MEDS: LATANOPROST 0.005% OPHTH SOLN 2.5 ML OU SCH ×2 (20:57→21:00)
[2021-10-29] VITALS (12 sets, daily range): BP systolic 108–145; BP diastolic 49–86
[2021-10-29] MEDS: PIPERACILLIN/TAZOBACTAM SOD 3.375 GM in D5W MINI-BAG PLUS 50 ML IV SCH ×4 (03:03→20:41)
[2021-10-29] MEDS: NORCO, ANEXSIA 5/325MG TABLET (HYDROcodone/ACETAMINOPHEN) PO PRN ×3 (05:06→21:44)
[2021-10-29 06:11] LABS: HEMATOCRIT 22.8 % (36.0-47.0); MEAN CORPUSCULAR HGB CONC 30.7 g/dl (32.0-36.5); MEAN CORPUSCULAR VOLUME 100.9 fl (80.0-96.0); PLATELET COUNT, AUTOMATED 107 10^3/uL (150-450); RED BLOOD COUNT 2.26 10^6/uL (4.00-5.40); WHITE BLOOD COUNT 5.6 10^3/uL (4.0-10.0)
[2021-10-29 06:58] LABS: CALCIUM LEVEL 9.7 MG/DL (8.8-10.2); CREATININE FOR GFR 1.72 MG/DL (0.55-1.30); GLOMERULAR FILTRATION RATE 30.5 (>39)
[2021-10-29] MEDS: BUDESONIDE 0.5 MG/2 ML INHALATION SUSPENSION INH SCH ×2 (07:16→20:00)
[2021-10-29] MEDS: ALBUTEROL SULFATE 2.5 MG/0.5 ML INH NEB SOLN INH SCH ×2 (07:16→19:41)
[2021-10-29] MEDS: ADVAIR HFA 230/21MCG INHALER INH SCH ×2 (07:16→19:41)
[2021-10-29] MEDS: MIDODRINE 5 MG TAB PO SCH ×3 (08:11→16:01)
[2021-10-29] MEDS: INSULIN LISPRO (NovoLOG) PER UNIT SC SCH ×4 (08:12→20:30)
[2021-10-29] MEDS: FLUTICASONE PROP 0.05% NASAL SPRAY 16 GM (FLONASE) NARES SCH (09:56)
[2021-10-29] MEDS: ENOXAPARIN 100MG/1ML SYRINGE (J1650 PER 10MG) SC SCH ×2 (09:56→20:41)
[2021-10-29] MEDS: LORATADINE 10 MG TAB PO SCH (09:57)
[2021-10-29] MEDS: NYSTATIN CREAM 15GM EXT SCH ×2 (09:57→20:42)
[2021-10-29] MEDS: MAGNESIUM OXIDE 400MG TAB (MAG-OX) PO SCH (09:58)
[2021-10-29] MEDS: ACETAMINOPHEN 500 MG TAB PO SCH ×2 (09:58→20:42)
[2021-10-29] MEDS: PANTOPRAZOLE 40MG TAB (PROTONIX) PO SCH (09:58)
[2021-10-29] MEDS: CitaloPRAM (CeleXA) 20 MG TAB PO SCH (09:58)
[2021-10-29] MEDS: GABAPENTIN 300 MG CAP PO SCH ×2 (09:58→20:41)
[2021-10-29] MEDS: VANCOMYCIN HCL 750 MG, VIAL MATE ADAPTER 1 EACH in D5W 250 ML IV SCH (12:49)
[2021-10-29] MEDS: MORPHINE 2 MG/ML 1ML VIAL IV PRN (15:09)
[2021-10-29] MEDS: BACLOFEN 5MG PER 1/2 TABLET PO PRN (17:25)
[2021-10-29] MEDS: ACETAMINOPHEN 325 MG TAB PO PRN (17:26)
[2021-10-29] MEDS ORDERED: MORPHINE 2 MG/ML 1ML VIAL IV ONE (17:35)
[2021-10-29] MEDS: LATANOPROST 0.005% OPHTH SOLN 2.5 ML OU SCH (20:42)
[2021-10-30] VITALS (7 sets, daily range): BP systolic 107–127; BP diastolic 42–62
[2021-10-30] MEDS: PIPERACILLIN/TAZOBACTAM SOD 3.375 GM in D5W MINI-BAG PLUS 50 ML IV SCH ×3 (02:37→15:34)
[2021-10-30 05:44] LABS: HEMATOCRIT 27.1 % (36.0-47.0); HEMOGLOBIN 8.5 g/dl (12.0-15.5); MEAN CORPUSCULAR HEMOGLOBIN 31.4 pg (27.0-33.0); MEAN CORPUSCULAR HGB CONC 31.4 g/dl (32.0-36.5); PLATELET COUNT, AUTOMATED 113 10^3/uL (150-450); RED BLOOD COUNT 2.71 10^6/uL (4.00-5.40); WHITE BLOOD COUNT 6.5 10^3/uL (4.0-10.0)
[2021-10-30 06:16] LABS: CALCIUM LEVEL 9.7 MG/DL (8.8-10.2); CREATININE FOR GFR 1.47 MG/DL (0.55-1.30); GLOMERULAR FILTRATION RATE 36.5 (>39); POTASSIUM SERUM 4.1 MEQ/L (3.5-5.1)
[2021-10-30 07:53] LABS: C REACTIVE PROTEIN QUANTITATIV 4.27 MG/DL (0.00-0.30)
[2021-10-30] MEDS: BUDESONIDE 0.5 MG/2 ML INHALATION SUSPENSION INH SCH ×2 (07:56→20:00)
[2021-10-30] MEDS: ALBUTEROL SULFATE 2.5 MG/0.5 ML INH NEB SOLN INH SCH ×3 (07:56→20:00)
[2021-10-30] MEDS: ADVAIR HFA 230/21MCG INHALER INH SCH ×2 (07:56→20:00)
[2021-10-30] MEDS: MORPHINE 2 MG/ML 1ML VIAL IV PRN (08:24)
[2021-10-30] MEDS: ENOXAPARIN 100MG/1ML SYRINGE (J1650 PER 10MG) SC SCH ×3 (08:25→11:36)
[2021-10-30] MEDS: INSULIN LISPRO (NovoLOG) PER UNIT SC SCH ×4 (08:25→20:17)
[2021-10-30] MEDS: LORATADINE 10 MG TAB PO SCH (08:26)
[2021-10-30] MEDS: NYSTATIN CREAM 15GM EXT SCH ×2 (08:26→20:29)
[2021-10-30] MEDS: FLUTICASONE PROP 0.05% NASAL SPRAY 16 GM (FLONASE) NARES SCH (08:26)
[2021-10-30] MEDS: PANTOPRAZOLE 40MG TAB (PROTONIX) PO SCH (08:26)
[2021-10-30] MEDS: ACETAMINOPHEN 500 MG TAB PO SCH ×2 (08:26→20:29)
[2021-10-30] MEDS: GABAPENTIN 300 MG CAP PO SCH ×2 (08:26→20:29)
[2021-10-30] MEDS: MIDODRINE 5 MG TAB PO SCH ×3 (08:26→15:34)
[2021-10-30] MEDS: CitaloPRAM (CeleXA) 20 MG TAB PO SCH (08:26)
[2021-10-30 09:24] LABS: MAGNESIUM LEVEL 2.2 MG/DL (1.8-2.4)
[2021-10-30 09:34] LABS: TOTAL PROTEIN 5.2 GM/DL (6.4-8.2)
[2021-10-30] MEDS: VANCOMYCIN HCL 750 MG, VIAL MATE ADAPTER 1 EACH in D5W 250 ML IV SCH (12:27)
[2021-10-30 15:38] LABS: ALBUMIN % 59.7 % (55.8-66.1); ALPHA-1-GLOBULIN % 11.9 % (2.9-4.9)
[2021-10-30 15:39] LABS: ALPHA-1-GLOBULINS 0.62 GM/DL (0.17-0.41); ALPHA-2-GLOBULINS 0.63 GM/DL (0.42-0.99); ALPHA-2-GLOBULINS % 12.2 % (7.1-11.8); BETA-1-GLOBULINS 0.43 GM/DL (0.28-0.60); BETA-1-GLOBULINS % 8.2 % (4.7-7.2); BETA-2-GLOBULINS 0.27 GM/DL (0.19-0.55); BETA-2-GLOBULINS % 5.1 % (3.2-6.5); GAMMA GLOBULIN % 2.9 % (11.1-18.8); GAMMA GLOBULINS 0.15 GM/DL (0.65-1.58)
[2021-10-30 18:07] LABS: FREE KAPPA LIGHT CHAINS SERUM 11.5 mg/L (3.3-19.4); FREE LAMBDA LIGHT CHAINS SERUM 12.7 mg/L (5.7-26.3); KAPPA/LAMBDA RATIO SERUM 0.91 (0.26-1.65)
[2021-10-30] MEDS: LATANOPROST 0.005% OPHTH SOLN 2.5 ML OU SCH (20:29)
[2021-10-30] MEDS: NORCO, ANEXSIA 5/325MG TABLET (HYDROcodone/ACETAMINOPHEN) PO PRN (23:04)
[2021-10-30] MEDS ORDERED: LOPERAMIDE 2 MG CAPLET PO ONE (23:35)
[2021-10-31] MEDS: MORPHINE 2 MG/ML 1ML VIAL IV PRN (01:20)
[2021-10-31 02:25] VITALS: BP 118/62
[2021-10-31] MEDS ORDERED: NS 1,000 ML IV ONE (02:50)
[2021-10-31 03:10] LABS: HEMATOCRIT 26.1 % (36.0-47.0); HEMOGLOBIN 8.1 g/dl (12.0-15.5); PLATELET COUNT, AUTOMATED 109 10^3/uL (150-450); RED BLOOD COUNT 2.61 10^6/uL (4.00-5.40); WHITE BLOOD COUNT 7.1 10^3/uL (4.0-10.0)
[2021-10-31 03:32] LABS: CALCIUM LEVEL 9.3 MG/DL (8.8-10.2); CREATININE FOR GFR 1.41 MG/DL (0.55-1.30); GLOMERULAR FILTRATION RATE 38.3 (>39)
[2021-10-31] MEDS: MIDODRINE 5 MG TAB PO SCH ×4 (04:19→16:39)
[2021-10-31 04:35] VITALS: BP 118/62
[2021-10-31 06:12] VITALS: BP 122/62
[2021-10-31] MEDS: INSULIN LISPRO (NovoLOG) PER UNIT SC SCH ×4 (07:30→21:00)
[2021-10-31 07:37] LABS: HEMATOCRIT 26.4 % (36.0-47.0); HEMOGLOBIN 8.2 g/dl (12.0-15.5); MEAN CORPUSCULAR HEMOGLOBIN 31.7 pg (27.0-33.0); MEAN CORPUSCULAR HGB CONC 31.1 g/dl (32.0-36.5); MEAN CORPUSCULAR VOLUME 101.9 fl (80.0-96.0); PLATELET COUNT, AUTOMATED 108 10^3/uL (150-450); RED BLOOD COUNT 2.59 10^6/uL (4.00-5.40); WHITE BLOOD COUNT 7.5 10^3/uL (4.0-10.0)
[2021-10-31] MEDS: ALBUTEROL SULFATE 2.5 MG/0.5 ML INH NEB SOLN INH SCH ×3 (07:37→20:00)
[2021-10-31] MEDS: ADVAIR HFA 230/21MCG INHALER INH SCH ×2 (07:37→20:00)
[2021-10-31] MEDS: BUDESONIDE 0.5 MG/2 ML INHALATION SUSPENSION INH SCH ×2 (07:38→20:00)
[2021-10-31 07:56] LABS: CALCIUM LEVEL 9.2 MG/DL (8.8-10.2); CREATININE FOR GFR 1.38 MG/DL (0.55-1.30); GLOMERULAR FILTRATION RATE 39.3 (>39); POTASSIUM SERUM 3.9 MEQ/L (3.5-5.1)
[2021-10-31] MEDS: NORCO, ANEXSIA 5/325MG TABLET (HYDROcodone/ACETAMINOPHEN) PO PRN ×2 (08:55→18:05)
[2021-10-31] MEDS: LACTOBACILLUS ACIDOPHILUS CAP (BACID) PO SCH (08:55)
[2021-10-31] MEDS: CitaloPRAM (CeleXA) 20 MG TAB PO SCH (08:55)
[2021-10-31] MEDS: LORATADINE 10 MG TAB PO SCH (08:55)
[2021-10-31] MEDS: GABAPENTIN 300 MG CAP PO SCH ×2 (08:55→21:52)
[2021-10-31] MEDS: PANTOPRAZOLE 40MG TAB (PROTONIX) PO SCH (08:55)
[2021-10-31] MEDS: FLUTICASONE PROP 0.05% NASAL SPRAY 16 GM (FLONASE) NARES SCH (08:56)
[2021-10-31] MEDS: NYSTATIN CREAM 15GM EXT SCH (08:57)
[2021-10-31] MEDS: ACETAMINOPHEN 500 MG TAB PO SCH ×2 (08:57→21:51)
[2021-10-31] MEDS ORDERED: LIDOCAINE 1% MDV 20ML VIAL As Ordered ONE (10:44)
[2021-10-31] MEDS: VANCOMYCIN HCL 750 MG, VIAL MATE ADAPTER 1 EACH in D5W 250 ML IV SCH (12:47)
[2021-10-31 14:00] VITALS: BP 119/58
[2021-10-31] MEDS ORDERED: LOPERAMIDE 2 MG CAPLET PO ONE (16:00)
[2021-10-31] MEDS: LATANOPROST 0.005% OPHTH SOLN 2.5 ML OU SCH (21:50)
[2021-10-31] MEDS: NYSTATIN 100,000 UNITS/GM TOPICAL PWD 15 GM TOP SCH (21:51)
[2021-10-31] MEDS: ENOXAPARIN 100MG/1ML SYRINGE (J1650 PER 10MG) SC SCH (21:52)
[2021-10-31 22:12] VITALS: BP 117/52
[2021-11-01 06:51] VITALS: BP 129/63
[2021-11-01 07:05] LABS: HEMATOCRIT 26.6 % (36.0-47.0); HEMOGLOBIN 8.1 g/dl (12.0-15.5); MEAN CORPUSCULAR HEMOGLOBIN 31.5 pg (27.0-33.0); MEAN CORPUSCULAR HGB CONC 30.5 g/dl (32.0-36.5); MEAN CORPUSCULAR VOLUME 103.5 fl (80.0-96.0); PLATELET COUNT, AUTOMATED 103 10^3/uL (150-450); RED BLOOD COUNT 2.57 10^6/uL (4.00-5.40); WHITE BLOOD COUNT 7.2 10^3/uL (4.0-10.0)
[2021-11-01] MEDS: INSULIN LISPRO (NovoLOG) PER UNIT SC SCH ×4 (07:30→22:22)
[2021-11-01 07:46] LABS: CALCIUM LEVEL 9.1 MG/DL (8.8-10.2); CREATININE FOR GFR 1.12 MG/DL (0.55-1.30); POTASSIUM SERUM 4.7 MEQ/L (3.5-5.1)
[2021-11-01] MEDS: ALBUTEROL SULFATE 2.5 MG/0.5 ML INH NEB SOLN INH SCH ×3 (08:00→20:00)
[2021-11-01] MEDS: BUDESONIDE 0.5 MG/2 ML INHALATION SUSPENSION INH SCH ×2 (08:00→20:00)
[2021-11-01] MEDS: ADVAIR HFA 230/21MCG INHALER INH SCH ×2 (08:00→20:00)
[2021-11-01] MEDS: ACETAMINOPHEN 500 MG TAB PO SCH ×2 (09:00→22:18)
[2021-11-01] MEDS: MIDODRINE 5 MG TAB PO SCH ×3 (09:52→17:45)
[2021-11-01] MEDS: GABAPENTIN 300 MG CAP PO SCH ×2 (09:52→22:18)
[2021-11-01] MEDS: CitaloPRAM (CeleXA) 20 MG TAB PO SCH (09:52)
[2021-11-01] MEDS: PANTOPRAZOLE 40MG TAB (PROTONIX) PO SCH (09:52)
[2021-11-01] MEDS: LORATADINE 10 MG TAB PO SCH (09:52)
[2021-11-01] MEDS: ENOXAPARIN 100MG/1ML SYRINGE (J1650 PER 10MG) SC SCH ×2 (09:52→22:21)
[2021-11-01] MEDS: LACTOBACILLUS ACIDOPHILUS CAP (BACID) PO SCH (09:52)
[2021-11-01] MEDS: FLUTICASONE PROP 0.05% NASAL SPRAY 16 GM (FLONASE) NARES SCH (09:53)
[2021-11-01] MEDS: NORCO, ANEXSIA 5/325MG TABLET (HYDROcodone/ACETAMINOPHEN) PO PRN ×2 (09:53→17:43)
[2021-11-01] MEDS: NYSTATIN 100,000 UNITS/GM TOPICAL PWD 15 GM TOP SCH ×2 (09:53→22:21)
[2021-11-01] MEDS: VANCOMYCIN HCL 750 MG, VIAL MATE ADAPTER 1 EACH in D5W 250 ML IV SCH (12:57)
[2021-11-01 14:00] VITALS: BP 109/52
[2021-11-01 14:08] LABS: Methylmalonic Acid 719 nmol/L (0-378)
[2021-11-01] MEDS ORDERED: ZYVO1TAB PO (20:21)
[2021-11-01] MEDS ORDERED: HYDR-3715 PO (20:21)
[2021-11-01] MEDS ORDERED: RISATAB3 PO (20:23)
[2021-11-01] MEDS ORDERED: TORS20TA2 PO (20:27)
[2021-11-01 21:24] VITALS: BP 120/72
[2021-11-01] MEDS: LATANOPROST 0.005% OPHTH SOLN 2.5 ML OU SCH (22:21)
[2021-11-02] MEDS: CEPHALEXIN 500 MG CAP PO SCH ×4 (00:28→17:55)
[2021-11-02 00:38] VITALS: BP 108/48
[2021-11-02] MEDS ORDERED: IBUPROFEN 600MG TAB PO ONE (00:55)
[2021-11-02 06:20] VITALS: BP 113/61
[2021-11-02 06:20] LABS: HEMATOCRIT 25.2 % (36.0-47.0); HEMOGLOBIN 7.8 g/dl (12.0-15.5); MEAN CORPUSCULAR HEMOGLOBIN 31.5 pg (27.0-33.0); MEAN CORPUSCULAR VOLUME 101.6 fl (80.0-96.0); PLATELET COUNT, AUTOMATED 103 10^3/uL (150-450); RED BLOOD COUNT 2.48 10^6/uL (4.00-5.40); WHITE BLOOD COUNT 6.6 10^3/uL (4.0-10.0)
[2021-11-02 06:57] LABS: C REACTIVE PROTEIN QUANTITATIV 2.08 MG/DL (0.00-0.30); CALCIUM LEVEL 9.2 MG/DL (8.8-10.2); CREATININE FOR GFR 1.09 MG/DL (0.55-1.30); GLOMERULAR FILTRATION RATE 51.5 (>39); POTASSIUM SERUM 4.2 MEQ/L (3.5-5.1)
[2021-11-02] MEDS: ALBUTEROL SULFATE 2.5 MG/0.5 ML INH NEB SOLN INH SCH ×3 (08:00→20:00)
[2021-11-02] MEDS: BUDESONIDE 0.5 MG/2 ML INHALATION SUSPENSION INH SCH ×2 (08:00→20:00)
[2021-11-02] MEDS: ADVAIR HFA 230/21MCG INHALER INH SCH ×2 (08:00→20:00)
[2021-11-02] MEDS: INSULIN LISPRO (NovoLOG) PER UNIT SC SCH ×4 (08:05→21:00)
[2021-11-02] MEDS: ENOXAPARIN 100MG/1ML SYRINGE (J1650 PER 10MG) SC SCH ×2 (08:06→21:16)
[2021-11-02] MEDS: GABAPENTIN 300 MG CAP PO SCH ×2 (08:07→21:14)
[2021-11-02] MEDS: LACTOBACILLUS ACIDOPHILUS CAP (BACID) PO SCH (08:07)
[2021-11-02] MEDS: MIDODRINE 5 MG TAB PO SCH ×3 (08:08→16:15)
[2021-11-02] MEDS: CitaloPRAM (CeleXA) 20 MG TAB PO SCH (08:09)
[2021-11-02] MEDS: ACETAMINOPHEN 500 MG TAB PO SCH ×3 (08:09→21:15)
[2021-11-02] MEDS: LORATADINE 10 MG TAB PO SCH (08:10)
[2021-11-02] MEDS: TORSEMIDE 20 MG TAB PO SCH ×2 (08:10→17:00)
[2021-11-02] MEDS: FLUTICASONE PROP 0.05% NASAL SPRAY 16 GM (FLONASE) NARES SCH (08:10)
[2021-11-02] MEDS: PANTOPRAZOLE 40MG TAB (PROTONIX) PO SCH (08:10)
[2021-11-02] MEDS: NYSTATIN 100,000 UNITS/GM TOPICAL PWD 15 GM TOP SCH ×2 (08:11→21:16)
[2021-11-02 14:00] VITALS: BP 132/49
[2021-11-02] MEDS: ACETAMINOPHEN 325 MG TAB PO PRN (16:16)
[2021-11-02] MEDS: LATANOPROST 0.005% OPHTH SOLN 2.5 ML OU SCH (21:16)
[2021-11-02] MEDS: NORCO, ANEXSIA 5/325MG TABLET (HYDROcodone/ACETAMINOPHEN) PO PRN (21:20)
[2021-11-03] MEDS: NORCO, ANEXSIA 5/325MG TABLET (HYDROcodone/ACETAMINOPHEN) PO PRN ×4 (03:19→21:23)
[2021-11-03] MEDS: CEPHALEXIN 500 MG CAP PO SCH ×4 (05:24→18:17)
[2021-11-03 06:37] VITALS: BP 111/57
[2021-11-03] MEDS: ALBUTEROL SULFATE 2.5 MG/0.5 ML INH NEB SOLN INH SCH ×3 (08:00→20:00)
[2021-11-03] MEDS: BUDESONIDE 0.5 MG/2 ML INHALATION SUSPENSION INH SCH ×2 (08:00→20:00)
[2021-11-03] MEDS: ADVAIR HFA 230/21MCG INHALER INH SCH ×2 (08:00→20:00)
[2021-11-03] MEDS: INSULIN LISPRO (NovoLOG) PER UNIT SC SCH ×4 (08:12→21:00)
[2021-11-03] MEDS: GABAPENTIN 300 MG CAP PO SCH ×2 (08:13→21:22)
[2021-11-03] MEDS: PANTOPRAZOLE 40MG TAB (PROTONIX) PO SCH (08:13)
[2021-11-03] MEDS: ENOXAPARIN 100MG/1ML SYRINGE (J1650 PER 10MG) SC SCH ×2 (08:14→21:23)
[2021-11-03] MEDS: LORATADINE 10 MG TAB PO SCH (08:14)
[2021-11-03] MEDS: CitaloPRAM (CeleXA) 20 MG TAB PO SCH (08:14)
[2021-11-03] MEDS: LACTOBACILLUS ACIDOPHILUS CAP (BACID) PO SCH (08:14)
[2021-11-03] MEDS: TORSEMIDE 20 MG TAB PO SCH ×3 (08:14→17:00)
[2021-11-03] MEDS: NYSTATIN 100,000 UNITS/GM TOPICAL PWD 15 GM TOP SCH ×2 (08:15→21:23)
[2021-11-03] MEDS: ACETAMINOPHEN 500 MG TAB PO SCH ×2 (08:15→21:22)
[2021-11-03] MEDS: FLUTICASONE PROP 0.05% NASAL SPRAY 16 GM (FLONASE) NARES SCH (08:15)
[2021-11-03] MEDS: MIDODRINE 5 MG TAB PO SCH ×3 (08:16→16:23)
[2021-11-03] MEDS: LATANOPROST 0.005% OPHTH SOLN 2.5 ML OU SCH (21:23)
[2021-11-04] MEDS: CEPHALEXIN 500 MG CAP PO SCH ×5 (01:35→23:50)
[2021-11-04 06:00] VITALS: BP 120/58
[2021-11-04] MEDS: BUDESONIDE 0.5 MG/2 ML INHALATION SUSPENSION INH SCH ×2 (08:00→20:00)
[2021-11-04] MEDS: ALBUTEROL SULFATE 2.5 MG/0.5 ML INH NEB SOLN INH SCH ×3 (08:00→20:00)
[2021-11-04] MEDS: ADVAIR HFA 230/21MCG INHALER INH SCH ×2 (08:00→20:00)
[2021-11-04] MEDS: ENOXAPARIN 100MG/1ML SYRINGE (J1650 PER 10MG) SC SCH ×2 (09:28→20:43)
[2021-11-04] MEDS: PANTOPRAZOLE 40MG TAB (PROTONIX) PO SCH (09:29)
[2021-11-04] MEDS: LACTOBACILLUS ACIDOPHILUS CAP (BACID) PO SCH (09:29)
[2021-11-04] MEDS: INSULIN LISPRO (NovoLOG) PER UNIT SC SCH ×4 (09:29→21:00)
[2021-11-04] MEDS: GABAPENTIN 300 MG CAP PO SCH ×2 (09:29→20:44)
[2021-11-04] MEDS: TORSEMIDE 20 MG TAB PO SCH ×2 (09:29→16:58)
[2021-11-04] MEDS: ACETAMINOPHEN 500 MG TAB PO SCH ×2 (09:31→20:44)
[2021-11-04] MEDS: FLUTICASONE PROP 0.05% NASAL SPRAY 16 GM (FLONASE) NARES SCH (09:32)
[2021-11-04] MEDS: LORATADINE 10 MG TAB PO SCH (09:32)
[2021-11-04] MEDS: CitaloPRAM (CeleXA) 20 MG TAB PO SCH (09:32)
[2021-11-04] MEDS: MIDODRINE 5 MG TAB PO SCH ×3 (09:33→16:58)
[2021-11-04] MEDS: NYSTATIN 100,000 UNITS/GM TOPICAL PWD 15 GM TOP SCH ×2 (09:33→20:44)
[2021-11-04] MEDS: NORCO, ANEXSIA 5/325MG TABLET (HYDROcodone/ACETAMINOPHEN) PO PRN (20:43)
[2021-11-04] MEDS: LATANOPROST 0.005% OPHTH SOLN 2.5 ML OU SCH (20:44)
[2021-11-05] MEDS: NORCO, ANEXSIA 5/325MG TABLET (HYDROcodone/ACETAMINOPHEN) PO PRN ×2 (02:07→18:16)
[2021-11-05] MEDS: CEPHALEXIN 500 MG CAP PO SCH ×4 (05:33→23:21)
[2021-11-05 06:04] VITALS: BP 113/57
[2021-11-05] MEDS: INSULIN LISPRO (NovoLOG) PER UNIT SC SCH ×4 (07:30→20:51)
[2021-11-05] MEDS: ALBUTEROL SULFATE 2.5 MG/0.5 ML INH NEB SOLN INH SCH ×3 (08:00→20:00)
[2021-11-05] MEDS: ADVAIR HFA 230/21MCG INHALER INH SCH ×2 (08:00→20:00)
[2021-11-05] MEDS: BUDESONIDE 0.5 MG/2 ML INHALATION SUSPENSION INH SCH ×2 (08:00→20:00)
[2021-11-05 08:28] VITALS: BP 113/51
[2021-11-05] MEDS: LACTOBACILLUS ACIDOPHILUS CAP (BACID) PO SCH (08:28)
[2021-11-05] MEDS: LORATADINE 10 MG TAB PO SCH (08:28)
[2021-11-05] MEDS: CitaloPRAM (CeleXA) 20 MG TAB PO SCH (08:28)
[2021-11-05] MEDS: TORSEMIDE 20 MG TAB PO SCH ×2 (08:28→16:49)
[2021-11-05] MEDS: ENOXAPARIN 100MG/1ML SYRINGE (J1650 PER 10MG) SC SCH ×2 (08:28→20:52)
[2021-11-05] MEDS: PANTOPRAZOLE 40MG TAB (PROTONIX) PO SCH (08:28)
[2021-11-05] MEDS: GABAPENTIN 300 MG CAP PO SCH ×2 (08:28→20:51)
[2021-11-05] MEDS: ACETAMINOPHEN 500 MG TAB PO SCH ×2 (08:29→20:51)
[2021-11-05] MEDS: FLUTICASONE PROP 0.05% NASAL SPRAY 16 GM (FLONASE) NARES SCH (08:29)
[2021-11-05] MEDS: MIDODRINE 5 MG TAB PO SCH ×3 (08:29→16:49)
[2021-11-05] MEDS: NYSTATIN 100,000 UNITS/GM TOPICAL PWD 15 GM TOP SCH ×2 (08:30→20:52)
[2021-11-05] MEDS: LATANOPROST 0.005% OPHTH SOLN 2.5 ML OU SCH (20:52)
[2021-11-06] MEDS: NORCO, ANEXSIA 5/325MG TABLET (HYDROcodone/ACETAMINOPHEN) PO PRN ×3 (00:19→23:24)
[2021-11-06 01:04] VITALS: BP 123/42
[2021-11-06] MEDS: ALBUTEROL SULFATE 2.5 MG/0.5 ML INH NEB SOLN INH SCH ×2 (06:58→20:00)
[2021-11-06] MEDS: ADVAIR HFA 230/21MCG INHALER INH SCH ×2 (06:58→20:00)
[2021-11-06] MEDS: BUDESONIDE 0.5 MG/2 ML INHALATION SUSPENSION INH SCH ×2 (06:59→20:00)
[2021-11-06] MEDS: GABAPENTIN 300 MG CAP PO SCH ×2 (08:31→21:15)
[2021-11-06] MEDS: ACETAMINOPHEN 500 MG TAB PO SCH ×2 (08:32→21:14)
[2021-11-06] MEDS: LORATADINE 10 MG TAB PO SCH (08:32)
[2021-11-06] MEDS: CitaloPRAM (CeleXA) 20 MG TAB PO SCH (08:32)
[2021-11-06] MEDS: TORSEMIDE 20 MG TAB PO SCH ×2 (08:32→17:22)
[2021-11-06] MEDS: MIDODRINE 5 MG TAB PO SCH ×3 (08:32→17:22)
[2021-11-06] MEDS: PANTOPRAZOLE 40MG TAB (PROTONIX) PO SCH (08:32)
[2021-11-06] MEDS: LACTOBACILLUS ACIDOPHILUS CAP (BACID) PO SCH (08:32)
[2021-11-06] MEDS: INSULIN LISPRO (NovoLOG) PER UNIT SC SCH ×4 (08:33→21:00)
[2021-11-06] MEDS: ENOXAPARIN 100MG/1ML SYRINGE (J1650 PER 10MG) SC SCH ×2 (08:33→21:14)
[2021-11-06] MEDS: NYSTATIN 100,000 UNITS/GM TOPICAL PWD 15 GM TOP SCH ×2 (08:33→21:15)
[2021-11-06] MEDS: FLUTICASONE PROP 0.05% NASAL SPRAY 16 GM (FLONASE) NARES SCH (08:33)
[2021-11-06] MEDS: LATANOPROST 0.005% OPHTH SOLN 2.5 ML OU SCH (21:15)
[2021-11-07 06:21] VITALS: BP 127/42
[2021-11-07] MEDS: ADVAIR HFA 230/21MCG INHALER INH SCH ×2 (07:22→20:00)
[2021-11-07] MEDS: ALBUTEROL SULFATE 2.5 MG/0.5 ML INH NEB SOLN INH SCH ×3 (07:23→20:00)
[2021-11-07] MEDS: BUDESONIDE 0.5 MG/2 ML INHALATION SUSPENSION INH SCH ×2 (07:23→20:00)
[2021-11-07] MEDS: INSULIN LISPRO (NovoLOG) PER UNIT SC SCH ×4 (08:27→20:58)
[2021-11-07] MEDS: GABAPENTIN 300 MG CAP PO SCH ×2 (08:28→21:22)
[2021-11-07] MEDS: PANTOPRAZOLE 40MG TAB (PROTONIX) PO SCH (08:28)
[2021-11-07] MEDS: MIDODRINE 5 MG TAB PO SCH ×3 (08:28→16:16)
[2021-11-07] MEDS: TORSEMIDE 20 MG TAB PO SCH ×2 (08:28→16:16)
[2021-11-07] MEDS: LORATADINE 10 MG TAB PO SCH (08:28)
[2021-11-07] MEDS: LACTOBACILLUS ACIDOPHILUS CAP (BACID) PO SCH (08:29)
[2021-11-07] MEDS: ACETAMINOPHEN 500 MG TAB PO SCH ×2 (08:29→21:00)
[2021-11-07] MEDS: NYSTATIN 100,000 UNITS/GM TOPICAL PWD 15 GM TOP SCH ×2 (08:29→21:29)
[2021-11-07] MEDS: CitaloPRAM (CeleXA) 20 MG TAB PO SCH (08:29)
[2021-11-07] MEDS: ENOXAPARIN 100MG/1ML SYRINGE (J1650 PER 10MG) SC SCH ×2 (08:29→21:22)
[2021-11-07] MEDS: FLUTICASONE PROP 0.05% NASAL SPRAY 16 GM (FLONASE) NARES SCH (08:29)
[2021-11-07] MEDS: NORCO, ANEXSIA 5/325MG TABLET (HYDROcodone/ACETAMINOPHEN) PO PRN ×2 (16:21→23:37)
[2021-11-07] MEDS: BACLOFEN 5MG PER 1/2 TABLET PO PRN (18:40)
[2021-11-07] MEDS: LATANOPROST 0.005% OPHTH SOLN 2.5 ML OU SCH (21:22)
[2021-11-08 06:00] VITALS: BP 132/79
[2021-11-08 06:38] LABS: HEMOGLOBIN 8.8 g/dl (12.0-15.5); MEAN CORPUSCULAR HEMOGLOBIN 31.3 pg (27.0-33.0); MEAN CORPUSCULAR HGB CONC 30.3 g/dl (32.0-36.5); MEAN CORPUSCULAR VOLUME 103.2 fl (80.0-96.0); PLATELET COUNT, AUTOMATED 119 10^3/uL (150-450); RED BLOOD COUNT 2.81 10^6/uL (4.00-5.40); WHITE BLOOD COUNT 6.6 10^3/uL (4.0-10.0)
[2021-11-08] MEDS: BUDESONIDE 0.5 MG/2 ML INHALATION SUSPENSION INH SCH ×2 (07:28→20:00)
[2021-11-08] MEDS: ALBUTEROL SULFATE 2.5 MG/0.5 ML INH NEB SOLN INH SCH ×3 (07:28→20:00)
[2021-11-08] MEDS: ADVAIR HFA 230/21MCG INHALER INH SCH ×2 (07:28→20:00)
[2021-11-08 07:29] LABS: CALCIUM LEVEL 9.2 MG/DL (8.8-10.2); CREATININE FOR GFR 1.2 MG/DL (0.55-1.30); GLOMERULAR FILTRATION RATE 46.1 (>39); POTASSIUM SERUM 4.1 MEQ/L (3.5-5.1)
[2021-11-08] MEDS: GABAPENTIN 300 MG CAP PO SCH ×2 (08:04→20:49)
[2021-11-08] MEDS: LACTOBACILLUS ACIDOPHILUS CAP (BACID) PO SCH (08:04)
[2021-11-08] MEDS: MIDODRINE 5 MG TAB PO SCH ×3 (08:04→16:05)
[2021-11-08] MEDS: CitaloPRAM (CeleXA) 20 MG TAB PO SCH (08:04)
[2021-11-08] MEDS: LORATADINE 10 MG TAB PO SCH (08:04)
[2021-11-08] MEDS: PANTOPRAZOLE 40MG TAB (PROTONIX) PO SCH (08:04)
[2021-11-08] MEDS: ENOXAPARIN 100MG/1ML SYRINGE (J1650 PER 10MG) SC SCH ×2 (08:05→20:47)
[2021-11-08] MEDS: FLUTICASONE PROP 0.05% NASAL SPRAY 16 GM (FLONASE) NARES SCH (08:05)
[2021-11-08] MEDS: NYSTATIN 100,000 UNITS/GM TOPICAL PWD 15 GM TOP SCH ×2 (08:05→20:50)
[2021-11-08] MEDS: ACETAMINOPHEN 500 MG TAB PO SCH ×2 (08:05→20:49)
[2021-11-08] MEDS: TORSEMIDE 20 MG TAB PO SCH ×2 (08:06→17:00)
[2021-11-08] MEDS: INSULIN LISPRO (NovoLOG) PER UNIT SC SCH ×4 (08:07→20:51)
[2021-11-08] MEDS: NORCO, ANEXSIA 5/325MG TABLET (HYDROcodone/ACETAMINOPHEN) PO PRN ×2 (12:16→20:49)
[2021-11-08] MEDS: BACLOFEN 5MG PER 1/2 TABLET PO PRN (20:47)
[2021-11-08] MEDS: LATANOPROST 0.005% OPHTH SOLN 2.5 ML OU SCH (20:50)
[2021-11-09] MEDS ORDERED: MORPHINE 2 MG/ML 1ML VIAL IV ONE
[2021-11-09 00:17] VITALS: BP 150/70
[2021-11-09] MEDS ORDERED: PERCOCET 5MG/325MG TAB PO ONE (01:00)
[2021-11-09 06:20] VITALS: BP 113/49
[2021-11-09] MEDS: BUDESONIDE 0.5 MG/2 ML INHALATION SUSPENSION INH SCH ×2 (07:25→20:00)
[2021-11-09] MEDS: ADVAIR HFA 230/21MCG INHALER INH SCH ×2 (07:25→20:00)
[2021-11-09] MEDS: ALBUTEROL SULFATE 2.5 MG/0.5 ML INH NEB SOLN INH SCH ×3 (07:25→20:00)
[2021-11-09] MEDS: ENOXAPARIN 100MG/1ML SYRINGE (J1650 PER 10MG) SC SCH ×2 (08:03→21:34)
[2021-11-09] MEDS: ACETAMINOPHEN 500 MG TAB PO SCH ×2 (08:04→21:34)
[2021-11-09] MEDS: INSULIN LISPRO (NovoLOG) PER UNIT SC SCH ×4 (08:04→21:00)
[2021-11-09] MEDS: LORATADINE 10 MG TAB PO SCH (08:05)
[2021-11-09] MEDS: LACTOBACILLUS ACIDOPHILUS CAP (BACID) PO SCH (08:05)
[2021-11-09] MEDS: NORCO, ANEXSIA 5/325MG TABLET (HYDROcodone/ACETAMINOPHEN) PO PRN ×3 (08:05→19:04)
[2021-11-09] MEDS: TORSEMIDE 20 MG TAB PO SCH ×3 (08:06→17:00)
[2021-11-09] MEDS: MIDODRINE 5 MG TAB PO SCH ×3 (08:06→19:07)
[2021-11-09] MEDS: CitaloPRAM (CeleXA) 20 MG TAB PO SCH (08:06)
[2021-11-09] MEDS: GABAPENTIN 300 MG CAP PO SCH ×2 (08:06→21:35)
[2021-11-09] MEDS: guaiFENesin ER 600 MG TAB PO PRN ×2 (08:06→14:15)
[2021-11-09] MEDS: BACLOFEN 5MG PER 1/2 TABLET PO PRN (08:06)
[2021-11-09] MEDS: PANTOPRAZOLE 40MG TAB (PROTONIX) PO SCH (08:06)
[2021-11-09] MEDS: NYSTATIN 100,000 UNITS/GM TOPICAL PWD 15 GM TOP SCH ×2 (14:17→21:35)
[2021-11-09] MEDS: FLUTICASONE PROP 0.05% NASAL SPRAY 16 GM (FLONASE) NARES SCH (14:17)
[2021-11-09 17:00] VITALS: BP 138/62
[2021-11-09] MEDS: LATANOPROST 0.005% OPHTH SOLN 2.5 ML OU SCH (21:35)
[2021-11-10 06:08] VITALS: BP 123/99
[2021-11-10] MEDS: INSULIN LISPRO (NovoLOG) PER UNIT SC SCH ×4 (07:30→20:26)
[2021-11-10] MEDS: ADVAIR HFA 230/21MCG INHALER INH SCH ×2 (08:00→20:00)
[2021-11-10] MEDS: ALBUTEROL SULFATE 2.5 MG/0.5 ML INH NEB SOLN INH SCH ×3 (08:00→20:00)
[2021-11-10] MEDS: BUDESONIDE 0.5 MG/2 ML INHALATION SUSPENSION INH SCH ×2 (08:00→20:00)
[2021-11-10] MEDS: ENOXAPARIN 100MG/1ML SYRINGE (J1650 PER 10MG) SC SCH ×2 (08:17→20:26)
[2021-11-10] MEDS: GABAPENTIN 300 MG CAP PO SCH ×2 (08:17→20:26)
[2021-11-10] MEDS: PANTOPRAZOLE 40MG TAB (PROTONIX) PO SCH (08:19)
[2021-11-10] MEDS: MIDODRINE 5 MG TAB PO SCH ×3 (08:19→16:47)
[2021-11-10] MEDS: LORATADINE 10 MG TAB PO SCH (08:19)
[2021-11-10] MEDS: CitaloPRAM (CeleXA) 20 MG TAB PO SCH (08:19)
[2021-11-10] MEDS: ACETAMINOPHEN 500 MG TAB PO SCH ×2 (08:19→20:26)
[2021-11-10] MEDS: LACTOBACILLUS ACIDOPHILUS CAP (BACID) PO SCH (08:19)
[2021-11-10] MEDS: TORSEMIDE 20 MG TAB PO SCH ×2 (08:20→16:44)
[2021-11-10] MEDS: FLUTICASONE PROP 0.05% NASAL SPRAY 16 GM (FLONASE) NARES SCH (08:20)
[2021-11-10] MEDS: NYSTATIN 100,000 UNITS/GM TOPICAL PWD 15 GM TOP SCH (08:20)
[2021-11-10] MEDS: NORCO, ANEXSIA 5/325MG TABLET (HYDROcodone/ACETAMINOPHEN) PO PRN (16:47)
[2021-11-10] MEDS: LATANOPROST 0.005% OPHTH SOLN 2.5 ML OU SCH (20:28)
[2021-11-11 05:41] VITALS: BP 120/58
[2021-11-11] MEDS: ALBUTEROL SULFATE 2.5 MG/0.5 ML INH NEB SOLN INH SCH ×3 (06:05→20:00)
[2021-11-11] MEDS: BUDESONIDE 0.5 MG/2 ML INHALATION SUSPENSION INH SCH ×2 (06:06→20:00)
[2021-11-11] MEDS: IPRATROPIUM 0.5MG/ALBUTEROL 2.5MG INH SOL UD 3ML (DUONEB) INH PRN (06:33)
[2021-11-11] MEDS: ADVAIR HFA 230/21MCG INHALER INH SCH ×2 (07:56→20:11)
[2021-11-11] MEDS: PANTOPRAZOLE 40MG TAB (PROTONIX) PO SCH (08:15)
[2021-11-11] MEDS: LACTOBACILLUS ACIDOPHILUS CAP (BACID) PO SCH (08:15)
[2021-11-11] MEDS: NORCO, ANEXSIA 5/325MG TABLET (HYDROcodone/ACETAMINOPHEN) PO PRN ×3 (08:15→21:40)
[2021-11-11] MEDS: GABAPENTIN 300 MG CAP PO SCH ×2 (08:15→21:41)
[2021-11-11] MEDS: MIDODRINE 5 MG TAB PO SCH ×3 (08:16→17:21)
[2021-11-11] MEDS: TORSEMIDE 20 MG TAB PO SCH ×2 (08:16→17:20)
[2021-11-11] MEDS: CitaloPRAM (CeleXA) 20 MG TAB PO SCH (08:16)
[2021-11-11] MEDS: FLUTICASONE PROP 0.05% NASAL SPRAY 16 GM (FLONASE) NARES SCH (08:16)
[2021-11-11] MEDS: ENOXAPARIN 100MG/1ML SYRINGE (J1650 PER 10MG) SC SCH ×2 (08:16→21:41)
[2021-11-11] MEDS: LORATADINE 10 MG TAB PO SCH (08:16)
[2021-11-11] MEDS: INSULIN LISPRO (NovoLOG) PER UNIT SC SCH ×4 (08:18→21:00)
[2021-11-11] MEDS: ACETAMINOPHEN 500 MG TAB PO SCH ×2 (08:19→21:00)
[2021-11-11 12:03] LABS: HEMATOCRIT 29.3 % (36.0-47.0); HEMOGLOBIN 8.9 g/dl (12.0-15.5); MEAN CORPUSCULAR HEMOGLOBIN 31.2 pg (27.0-33.0); MEAN CORPUSCULAR HGB CONC 30.4 g/dl (32.0-36.5); MEAN CORPUSCULAR VOLUME 102.8 fl (80.0-96.0); PLATELET COUNT, AUTOMATED 122 10^3/uL (150-450); RED BLOOD COUNT 2.85 10^6/uL (4.00-5.40); WHITE BLOOD COUNT 5.6 10^3/uL (4.0-10.0)
[2021-11-11 12:44] LABS: CALCIUM LEVEL 9.4 MG/DL (8.8-10.2); CREATININE FOR GFR 1.31 MG/DL (0.55-1.30); GLOMERULAR FILTRATION RATE 41.7 (>39); POTASSIUM SERUM 4.6 MEQ/L (3.5-5.1)
[2021-11-11 12:48] LABS: CK-MB VALUE MASS < 1.0 NG/ML (<3.6); CPK CREATINE PHOSPHOKINASE 12 U/L (26-192); MB/CK RELATIVE INDEX 8.33 (< OR =4)
[2021-11-11] MEDS ORDERED: FUROSEMIDE 40MG/4ML VIAL (J1940) IV ONE (13:40)
[2021-11-11] MEDS ORDERED: TORSEMIDE 10 MG TABLET PO ONE (17:00)
[2021-11-11] MEDS: LATANOPROST 0.005% OPHTH SOLN 2.5 ML OU SCH (21:42)
[2021-11-12 06:19] VITALS: BP 106/44
[2021-11-12] MEDS: ADVAIR HFA 230/21MCG INHALER INH SCH (07:06)
[2021-11-12] MEDS: BUDESONIDE 0.5 MG/2 ML INHALATION SUSPENSION INH SCH (07:07)
[2021-11-12] MEDS: ALBUTEROL SULFATE 2.5 MG/0.5 ML INH NEB SOLN INH SCH (07:07)
[2021-11-12] MEDS: INSULIN LISPRO (NovoLOG) PER UNIT SC SCH (08:33)
[2021-11-12] MEDS: ENOXAPARIN 100MG/1ML SYRINGE (J1650 PER 10MG) SC SCH (08:33)
[2021-11-12] MEDS: CitaloPRAM (CeleXA) 20 MG TAB PO SCH (08:33)
[2021-11-12] MEDS: LACTOBACILLUS ACIDOPHILUS CAP (BACID) PO SCH (08:34)
[2021-11-12] MEDS: TORSEMIDE 20 MG TAB PO SCH (08:34)
[2021-11-12] MEDS: LORATADINE 10 MG TAB PO SCH (08:34)
[2021-11-12] MEDS: PANTOPRAZOLE 40MG TAB (PROTONIX) PO SCH (08:34)
[2021-11-12] MEDS: GABAPENTIN 300 MG CAP PO SCH (08:34)
[2021-11-12] MEDS: MIDODRINE 5 MG TAB PO SCH (08:34)
[2021-11-12] MEDS: FLUTICASONE PROP 0.05% NASAL SPRAY 16 GM (FLONASE) NARES SCH (08:35)
[2021-11-12] MEDS: ACETAMINOPHEN 500 MG TAB PO SCH (08:35)
[2021-11-13] MEDS ORDERED: LIDO5DIS41 TD (05:15)
== END 2021-11-12 11:10 | DRG 580 ==
LOC: M ED 10:41 → ENRESERV 15:29 → M MS5PR 15:33 → M ED 16:11 → M PCU 10-27 04:50 → M ICU 10-27 11:53 → M MS5PR 10-30 22:22
PROVIDERS: ADMIT Family Medicine; ATTEND Internal Medicine
PROC: 30233N1 Transfusion of Nonautologous Red Blood Cells into Peripheral Vein, Percutaneous Approach (ICD-10-PCS; 2021-10-27)
PROC: 07BJ3ZX Excision of Left Inguinal Lymphatic, Percutaneous Approach, Diagnostic (ICD-10-PCS; principal; 2021-10-31 10:29)
DX: L03.116 Cellulitis of left lower limb (principal); I82.412 Acute embolism and thrombosis of left femoral vein; E87.2 Acidosis; I48.21 Permanent atrial fibrillation; N17.9 Acute kidney failure, unspecified; C85.95 Non-Hodgkin lymphoma, unspecified, lymph nodes of inguinal region and lower limb; E11.22 Type 2 diabetes mellitus with diabetic chronic kidney disease; J44.9 Chronic obstructive pulmonary disease, unspecified; I27.29 Other secondary pulmonary hypertension; N18.32 Chronic kidney disease, stage 3b; D63.8 Anemia in other chronic diseases classified elsewhere; D69.59 Other secondary thrombocytopenia; R16.2 Hepatomegaly with splenomegaly, not elsewhere classified; E66.01 Morbid (severe) obesity due to excess calories; F41.9 Anxiety disorder, unspecified; F32.A Depression, unspecified; R91.8 Other nonspecific abnormal finding of lung field; R41.82 Altered mental status, unspecified; I95.1 Orthostatic hypotension; D73.9 Disease of spleen, unspecified; Z87.81 Personal history of (healed) traumatic fracture; Z95.0 Presence of cardiac pacemaker; Z90.49 Acquired absence of other specified parts of digestive tract; Z87.891 Personal history of nicotine dependence; Z88.0 Allergy status to penicillin; Z88.2 Allergy status to sulfonamides; Z88.5 Allergy status to narcotic agent; Z92.3 Personal history of irradiation; Z85.3 Personal history of malignant neoplasm of breast; Z99.81 Dependence on supplemental oxygen; Z20.822 Contact with and (suspected) exposure to COVID-19

== ENCOUNTER → 2021-11-14 | Outpatient (REF) ==
[~2021-11-14] MED LIST changes: +ACET500T15 PO; +ALB2.5NEB INH; +APAP325T4 PO; +BACL10TA2 PO; +CELE20TA PO; +CLAR10CA3 PO; +DOXY-342 PO; +DOXY-350 PO; -DOXY-444 PO; -DOXY100C81 PO; +HYDR-3715 PO; +LIDO5DIS41 TD; +METH85CR12 TOP; +MIDO5TA PO; +PANT20TA6 PO; +PROC20004 INJ; +RISATAB3 PO; +XALA0.007 OU; +ZYVO1TAB PO
[2021-11-14 10:59] LABS: HEMATOCRIT 30.1 % (36.0-47.0); HEMOGLOBIN 9.3 g/dl (12.0-15.5); MEAN CORPUSCULAR HGB CONC 30.9 g/dl (32.0-36.5); MEAN CORPUSCULAR VOLUME 100.3 fl (80.0-96.0); PLATELET COUNT, AUTOMATED 128 10^3/uL (150-450); WHITE BLOOD COUNT 6.9 10^3/uL (4.0-10.0)
[2021-11-14 11:24] LABS: ERYTHROCYTE SEDIMENTATION RATE 47 mm/hr (0-30)
[2021-11-14 11:40] LABS: C REACTIVE PROTEIN QUANTITATIV 2.61 MG/DL (0.00-0.30); CALCIUM LEVEL 9.2 MG/DL (8.8-10.2); CREATININE FOR GFR 1.38 MG/DL (0.55-1.30); GLOMERULAR FILTRATION RATE 39.3 (>39); POTASSIUM SERUM 3.9 MEQ/L (3.5-5.1)
== END ==
PROVIDERS: ATTEND Physician Assistant
DX: N18.9 Chronic kidney disease, unspecified (principal)

== ENCOUNTER → 2021-11-14 | Outpatient (REF) | payer MEDICARE, OTHER | PROVIDERS: ATTEND Internal Medicine | DX: N18.9 Chronic kidney disease, unspecified (principal); Z53.8 Procedure and treatment not carried out for other reasons ==

== ENCOUNTER 2021-11-19 00:35 | Inpatient (IN) | payer MEDICARE, OTHER ==
[~2021-11-19] VITALS: Ht 157.5 cm; Wt 112.8 kg
[~2021-11-19 00:35] MED LIST changes: -CELE20TA PO; -CLAR10CA3 PO
[2021-11-19] MEDS ORDERED: FUROSEMIDE 100MG/10ML VIAL (J1940) IV ONE (01:00)
[2021-11-19 01:20] LABS: BASO # 0.1 10^3/uL (0.0-0.2); BASO % 0.8 % (0.0-1.0); EOS # 0.5 10^3/uL (0.0-0.5); EOS % 7.3 % (0.0-3.0); HEMATOCRIT 27.1 % (36.0-47.0); HEMOGLOBIN 8.5 g/dl (12.0-15.5); LYMPH # 1.7 10^3/uL (1.5-5.0); LYMPH % 25.2 % (24.0-44.0); MEAN CORPUSCULAR HEMOGLOBIN 31.6 pg (27.0-33.0); MEAN CORPUSCULAR HGB CONC 31.4 g/dl (32.0-36.5); MEAN CORPUSCULAR VOLUME 100.7 fl (80.0-96.0); MONO # 0.5 10^3/uL (0.0-0.8); MONO % 7.4 % (2.0-8.0); NEUTROPHILS # 3.9 10^3/uL (1.5-8.5); NEUTROPHILS % 59.1 % (36.0-66.0); PLATELET COUNT, AUTOMATED 103 10^3/uL (150-450); RED BLOOD COUNT 2.69 10^6/uL (4.00-5.40); WHITE BLOOD COUNT 6.6 10^3/uL (4.0-10.0)
[2021-11-19 01:30] LABS: INR 2.7
[2021-11-19 01:34] LABS: ABG BASE EXCESS 1.7 (-2.0-2.0); ABG HCO3 26.9 MEQ/L (22.0-26.0); ABG O2 SATURATION 99.3 % (95.0-99.0); ABG PARTIAL PRESSURE CO2 45.3 mmHg (35.0-45.0); ABG PARTIAL PRESSURE O2 207.8 mmHg (75.0-100.0); ABG TOTAL CO2 28.3 MEQ/L (23.0-31.0); ABG pH (ARTERIAL) 7.392 UNITS (7.350-7.450)
[2021-11-19] MEDS ORDERED: VANCOMYCIN HCL 2,000 MG in D5W 500 ML IV ONE (01:45)
[2021-11-19 01:54] LABS: RSV AMPLIFICATION NEGATIVE (NEGATIVE)
[2021-11-19] MEDS ORDERED: VANCOMYCIN HCL 1,000 MG, VIAL MATE ADAPTER 1 EACH in NS 250 ML IV ONE ×2 (02:00→03:00)
[2021-11-19 02:07] LABS: ALBUMIN 3.2 GM/DL (3.2-5.2); BILIRUBIN,DIRECT 0.2 MG/DL (0.0-0.2); BILIRUBIN,TOTAL 0.5 MG/DL (0.2-1.0); CALCIUM LEVEL 8.3 MG/DL (8.8-10.2); CREATININE FOR GFR 1.45 MG/DL (0.55-1.30); GLOMERULAR FILTRATION RATE 37.1 (>39); POTASSIUM SERUM 3.8 MEQ/L (3.5-5.1); TOTAL PROTEIN 4.7 GM/DL (6.4-8.2)
[2021-11-19] MEDS ORDERED: TORS20TA2 PO (02:42)
[2021-11-19] MEDS ORDERED: ZYVO1TAB PO (02:42)
[2021-11-19] MEDS ORDERED: RISATAB3 PO (02:42)
[2021-11-19] MEDS ORDERED: CLAR10CA3 PO (02:42)
[2021-11-19] MEDS ORDERED: PERCOCET PO (02:42)
[2021-11-19] MEDS ORDERED: NYST1POW9 TOP (02:42)
[2021-11-19] MEDS ORDERED: CELE20TA PO (02:42)
[2021-11-19] MEDS ORDERED: HOME MED LIST COMPLETE! XX SCH (02:45)
[2021-11-19 03:37] LABS: APPEARANCE, URINE MANUAL HAZY (CLEAR); BILIRUBIN, URINE MANUAL NEGATIVE (NEGATIVE); BLOOD URINE MANUAL NEGATIVE (NEGATIVE); COLOR, URINE MANUAL YELLOW (YELLOW); GLUCOSE, URINE (UA) MANUAL NEGATIVE (NEGATIVE); KETONE, URINE MANUAL NEGATIVE (NEGATIVE); LEUKOCYTE ESTERASE, URINE MAN POSITIVE (NEGATIVE); NITRITE, URINE MANUAL POSITIVE (NEGATIVE); PROTEIN, URINE MANUAL NEGATIVE (NEGATIVE); SPECIFIC GRAVITY,URINE MANUAL 1.015 (1.002-1.035); UROBILINOGEN, URINE MANUAL NORMAL (NORMAL)
[2021-11-19] MEDS ORDERED: BISACODYL 10 MG SUPP PR PRN (03:45)
[2021-11-19] MEDS ORDERED: ALBUTEROL SULFATE 2.5 MG/0.5 ML INH NEB SOLN NEB ONE (03:45)
[2021-11-19] MEDS ORDERED: ALBUTEROL SULFATE 2.5 MG/0.5 ML INH NEB SOLN NEB PRN (03:55)
[2021-11-19] MEDS ORDERED: NS 1,000 ML IV SCH (03:55)
[2021-11-19 04:14] LABS: WBC, URINE 40-50 /hpf (0-3)
[2021-11-19 04:15] LABS: RBC, URINE 0-1 /hpf (0-3); SQUAMOUS EPITHELIAL CELL URINE SMALL AMOUNT /hpf (SMALL AMT)
[2021-11-19 04:16] LABS: BACTERIA, URINE LARGE AMOUNT; HYALINE CAST, URINE NONE SEEN /lpf (0-1)
[2021-11-19] MEDS ORDERED: NS 250 ML IV ONE (04:25)
[2021-11-19] MEDS: methylPREDNISolone 40MG 1ML VIAL IV SCH ×2 (05:53→14:23)
[2021-11-19] MEDS ORDERED: cefTRIAXone SOD 1 GM in D5W MINI-BAG PLUS 50 ML IV SCH (08:00)
[2021-11-19] MEDS: MIDODRINE 5 MG TAB PO SCH ×3 (08:38→17:42)
[2021-11-19] MEDS: CitaloPRAM (CeleXA) 20 MG TAB PO SCH (08:38)
[2021-11-19] MEDS: GABAPENTIN 300 MG CAP PO SCH ×2 (08:38→20:43)
[2021-11-19] MEDS: LIDOCAINE 5% (LIDODERM) PATCH TD SCH (09:00)
[2021-11-19 09:48] VITALS: O2SAT 94
[2021-11-19] MEDS: IPRATROPIUM 0.5MG/ALBUTEROL 2.5MG INH SOL UD 3ML (DUONEB) NEB SCH ×3 (09:48→19:48)
[2021-11-19] MEDS: ADVAIR HFA 230/21MCG INHALER INH SCH ×2 (09:48→19:47)
[2021-11-19 09:52] VITALS: O2SAT 94
[2021-11-19] MEDS ORDERED: CEFEPIME HCL 2 GM in D5W MINI-BAG PLUS 50 ML IV SCH (09:55)
[2021-11-19] MEDS: DOXYCYCLINE HYCLATE 100 MG in D5W MINI-BAG PLUS 100 ML IV SCH ×2 (10:16→22:35)
[2021-11-19] MEDS: PANTOPRAZOLE 20 MG TAB PO SCH (12:39)
[2021-11-19] MEDS: NYSTATIN 100,000 UNITS/GM TOPICAL PWD 15 GM TOP SCH ×2 (12:40→20:44)
[2021-11-19] MEDS: FLUTICASONE PROP 0.05% NASAL SPRAY 16 GM (FLONASE) NARES SCH (12:40)
[2021-11-19 13:28] LABS: HEMOGLOBIN 8.6 g/dl (12.0-15.5); MEAN CORPUSCULAR HEMOGLOBIN 31.7 pg (27.0-33.0); MEAN CORPUSCULAR HGB CONC 30.7 g/dl (32.0-36.5); MEAN CORPUSCULAR VOLUME 103.3 fl (80.0-96.0); PLATELET COUNT, AUTOMATED 104 10^3/uL (150-450); RED BLOOD COUNT 2.71 10^6/uL (4.00-5.40); WHITE BLOOD COUNT 5.1 10^3/uL (4.0-10.0)
[2021-11-19 13:43] LABS: CALCIUM LEVEL 8.9 MG/DL (8.8-10.2); CREATININE FOR GFR 1.57 MG/DL (0.55-1.30); GLOMERULAR FILTRATION RATE 33.8 (>39); POTASSIUM SERUM 4.5 MEQ/L (3.5-5.1)
[2021-11-19 14:10] VITALS: BP 143/62
[2021-11-19] MEDS ORDERED: NS 500 ML IV ONE (14:35)
[2021-11-19] MEDS ORDERED: HEPARIN SOD (PORCINE) 5000UNITS/ML 1ML VIAL/SYRINGE IV PRN (14:35)
[2021-11-19] MEDS ORDERED: ISOVUE-370 76% 100ML VIAL As Ordered ONE (14:42)
[2021-11-19 15:04] LABS: HEMATOCRIT 29.5 % (36.0-47.0); MEAN CORPUSCULAR HEMOGLOBIN 31.1 pg (27.0-33.0); MEAN CORPUSCULAR HGB CONC 30.5 g/dl (32.0-36.5); MEAN CORPUSCULAR VOLUME 102.1 fl (80.0-96.0); RED BLOOD COUNT 2.89 10^6/uL (4.00-5.40); WHITE BLOOD COUNT 5.3 10^3/uL (4.0-10.0)
[2021-11-19 15:05] LABS: PLATELET COUNT, AUTOMATED 97 10^3/uL (150-450)
[2021-11-19 15:26] LABS: CREATININE FOR GFR 1.62 MG/DL (0.55-1.30); GLOMERULAR FILTRATION RATE 32.6 (>39); POTASSIUM SERUM 4.3 MEQ/L (3.5-5.1)
[2021-11-19 16:00] VITALS: BP 106/57
[2021-11-19] MEDS ORDERED: GLUCAGON INJ 1MG VIAL SC PRN (16:25)
[2021-11-19] MEDS ORDERED: DEXTROSE 50% 50 ML SYRINGE IV PRN (16:25)
[2021-11-19] MEDS ORDERED: GLUCOSE 4GM CHEW TABLET PO PRN (16:25)
[2021-11-19] MEDS: RIVAROXABAN 15MG TAB (XARELTO) PO SCH (17:42)
[2021-11-19] MEDS: HYDROMORPHONE HCL 0.5 MG/ 0.5 ML SYRINGE (J1170 PER 1) IV PRN ×2 (17:42→21:07)
[2021-11-19] MEDS ORDERED: HEPARIN SOD (PORCINE) 5000UNITS/ML 1ML VIAL/SYRINGE IV ONE (18:00)
[2021-11-19] MEDS ORDERED: INSULIN LISPRO (NovoLOG) PER UNIT SC SCH (18:00)
[2021-11-19] MEDS ORDERED: HEPARIN DRIP 25,000 UNITS in IV 1 EA IV SCH (18:00)
[2021-11-19] MEDS: INSULIN LISPRO (NovoLOG) PER UNIT SC SCH ×2 (19:05→20:44)
[2021-11-19 20:00] VITALS: BP 106/42
[2021-11-19] MEDS: LATANOPROST 0.005% OPHTH SOLN 2.5 ML OU SCH (20:43)
[2021-11-19] MEDS: CEFEPIME HCL 2 GM in D5W MINI-BAG PLUS 50 ML IV SCH (20:45)
[2021-11-19] MEDS ORDERED: RIVAROXABAN 15MG TAB (XARELTO) PO SCH (21:00)
[2021-11-19] MEDS: **NOTE PATIENT COMMENT** MISC XX SCH (21:00)
[2021-11-19] MEDS ORDERED: VANCOMYCIN HCL 1,000 MG, VIAL MATE ADAPTER 1 EACH in D5W 250 ML IV SCH (22:00)
[2021-11-20] MEDS: THIAMINE INJection 500 MG in NS 100 ML IV SCH ×4 (00:29→21:45)
[2021-11-20] MEDS: methylPREDNISolone 40MG 1ML VIAL IV SCH ×4 (00:29→21:45)
[2021-11-20] MEDS: HYDROMORPHONE HCL 0.5 MG/ 0.5 ML SYRINGE (J1170 PER 1) IV PRN ×2 (00:30→09:57)
[2021-11-20] MEDS: IPRATROPIUM 0.5MG/ALBUTEROL 2.5MG INH SOL UD 3ML (DUONEB) NEB SCH ×4 (02:00→19:49)
[2021-11-20 04:00] VITALS: BP 127/56
[2021-11-20 06:46] LABS: CALCIUM LEVEL 9.5 MG/DL (8.8-10.2); CREATININE FOR GFR 1.36 MG/DL (0.55-1.30); GLOMERULAR FILTRATION RATE 39.9 (>39); POTASSIUM SERUM 4.5 MEQ/L (3.5-5.1)
[2021-11-20] MEDS: FLUTICASONE PROP 0.05% NASAL SPRAY 16 GM (FLONASE) NARES SCH (08:21)
[2021-11-20] MEDS: INSULIN LISPRO (NovoLOG) PER UNIT SC SCH ×4 (08:22→20:50)
[2021-11-20] MEDS: CitaloPRAM (CeleXA) 20 MG TAB PO SCH (08:22)
[2021-11-20] MEDS: CEFEPIME HCL 2 GM in D5W MINI-BAG PLUS 50 ML IV SCH ×2 (08:23→19:23)
[2021-11-20] MEDS: MIDODRINE 5 MG TAB PO SCH ×3 (08:23→19:00)
[2021-11-20] MEDS: GABAPENTIN 300 MG CAP PO SCH ×2 (08:23→20:49)
[2021-11-20] MEDS: DOXYCYCLINE HYCLATE 100 MG in D5W MINI-BAG PLUS 100 ML IV SCH (08:24)
[2021-11-20] MEDS: LIDOCAINE 5% (LIDODERM) PATCH TD SCH ×2 (08:25→09:59)
[2021-11-20 08:33] VITALS: BP 124/60
[2021-11-20] MEDS: ADVAIR HFA 230/21MCG INHALER INH SCH ×2 (08:57→19:40)
[2021-11-20] MEDS ORDERED: FUROSEMIDE 40MG/4ML VIAL (J1940) IV ONE ×2 (09:40→19:00)
[2021-11-20] MEDS: PANTOPRAZOLE 20 MG TAB PO SCH (09:55)
[2021-11-20] MEDS: NYSTATIN 100,000 UNITS/GM TOPICAL PWD 15 GM TOP SCH ×2 (09:59→21:45)
[2021-11-20 12:00] VITALS: BP 134/61
[2021-11-20 16:00] VITALS: BP 118/75
[2021-11-20] MEDS: RIVAROXABAN 15MG TAB (XARELTO) PO SCH (17:29)
[2021-11-20 20:00] VITALS: BP 142/64
[2021-11-20] MEDS: DOXYCYCLINE HYCLATE 100MG TABLET PO SCH (20:49)
[2021-11-20] MEDS: LATANOPROST 0.005% OPHTH SOLN 2.5 ML OU SCH (20:50)
[2021-11-20] MEDS: **NOTE PATIENT COMMENT** MISC XX SCH (21:00)
[2021-11-21] VITALS (17 sets, daily range): BP systolic 102–173; BP diastolic 44–70; O2SAT 83–95
[2021-11-21] MEDS: IPRATROPIUM 0.5MG/ALBUTEROL 2.5MG INH SOL UD 3ML (DUONEB) NEB SCH ×4 (02:00→20:00)
[2021-11-21] MEDS: methylPREDNISolone 40MG 1ML VIAL IV SCH (05:39)
[2021-11-21] MEDS: THIAMINE INJection 500 MG in NS 100 ML IV SCH ×3 (05:40→22:05)
[2021-11-21 05:52] LABS: BASO % 0.2 % (0.0-1.0); HEMATOCRIT 26.9 % (36.0-47.0); LYMPH # 0.6 10^3/uL (1.5-5.0); LYMPH % 10.2 % (24.0-44.0); MEAN CORPUSCULAR HEMOGLOBIN 30.8 pg (27.0-33.0); MEAN CORPUSCULAR HGB CONC 29.7 g/dl (32.0-36.5); MEAN CORPUSCULAR VOLUME 103.5 fl (80.0-96.0); MONO # 0.1 10^3/uL (0.0-0.8); MONO % 2.2 % (2.0-8.0); NEUTROPHILS # 4.6 10^3/uL (1.5-8.5); NEUTROPHILS % 86.1 % (36.0-66.0); WHITE BLOOD COUNT 5.4 10^3/uL (4.0-10.0)
[2021-11-21 05:53] LABS: PLATELET COUNT, AUTOMATED 95 10^3/uL (150-450)
[2021-11-21 06:15] LABS: CALCIUM LEVEL 9.3 MG/DL (8.8-10.2); CREATININE FOR GFR 1.3 MG/DL (0.55-1.30); GLOMERULAR FILTRATION RATE 42.1 (>39); POTASSIUM SERUM 4.5 MEQ/L (3.5-5.1)
[2021-11-21] MEDS: ADVAIR HFA 230/21MCG INHALER INH SCH ×2 (07:38→19:43)
[2021-11-21] MEDS ORDERED: FUROSEMIDE 40MG/4ML VIAL (J1940) IV ONE (08:00)
[2021-11-21] MEDS: INSULIN LISPRO (NovoLOG) PER UNIT SC SCH ×4 (08:09→20:59)
[2021-11-21] MEDS: MIDODRINE 5 MG TAB PO SCH ×3 (08:10→17:37)
[2021-11-21] MEDS: CEFEPIME HCL 2 GM in D5W MINI-BAG PLUS 50 ML IV SCH ×2 (08:10→20:53)
[2021-11-21] MEDS: GABAPENTIN 300 MG CAP PO SCH ×2 (09:11→20:53)
[2021-11-21] MEDS: PANTOPRAZOLE 20 MG TAB PO SCH (09:11)
[2021-11-21] MEDS: CitaloPRAM (CeleXA) 20 MG TAB PO SCH (09:11)
[2021-11-21] MEDS: DOXYCYCLINE HYCLATE 100MG TABLET PO SCH ×2 (09:12→20:53)
[2021-11-21] MEDS: FLUTICASONE PROP 0.05% NASAL SPRAY 16 GM (FLONASE) NARES SCH (09:12)
[2021-11-21] MEDS: LIDOCAINE 5% (LIDODERM) PATCH TD SCH (09:13)
[2021-11-21] MEDS: NYSTATIN 100,000 UNITS/GM TOPICAL PWD 15 GM TOP SCH ×2 (09:13→20:53)
[2021-11-21] MEDS: predniSONE 20 MG TAB PO SCH (12:26)
[2021-11-21 16:09] LABS: BODY FLUID CULTURE Not indicated. (.); LEGIONELLA ANTIGEN URINE Negative (Negative); ORGANISM ID Not indicated. (.); SPECIMEN SOURCE Urine (.); URINE STREP PNEUMONIAE ANTIGEN Negative (Negative)
[2021-11-21] MEDS: LATANOPROST 0.005% OPHTH SOLN 2.5 ML OU SCH (20:53)
[2021-11-21] MEDS: **NOTE PATIENT COMMENT** MISC XX SCH (21:00)
[2021-11-22] VITALS: BP 127/62
[2021-11-22] MEDS: IPRATROPIUM 0.5MG/ALBUTEROL 2.5MG INH SOL UD 3ML (DUONEB) NEB SCH ×4 (02:00→20:00)
[2021-11-22 04:00] VITALS: BP 127/57
[2021-11-22] MEDS: HYDROMORPHONE HCL 0.5 MG/ 0.5 ML SYRINGE (J1170 PER 1) IV PRN (04:45)
[2021-11-22] MEDS: THIAMINE INJection 500 MG in NS 100 ML IV SCH (05:19)
[2021-11-22 06:42] LABS: CALCIUM LEVEL 9.2 MG/DL (8.8-10.2); CREATININE FOR GFR 1.22 MG/DL (0.55-1.30); GLOMERULAR FILTRATION RATE 45.3 (>39); POTASSIUM SERUM 4.1 MEQ/L (3.5-5.1)
[2021-11-22] MEDS: ADVAIR HFA 230/21MCG INHALER INH SCH ×2 (07:58→19:31)
[2021-11-22 07:59] LABS: HEMATOCRIT 25.7 % (36.0-47.0); MEAN CORPUSCULAR HEMOGLOBIN 31.7 pg (27.0-33.0); MEAN CORPUSCULAR HGB CONC 31.1 g/dl (32.0-36.5); RED BLOOD COUNT 2.52 10^6/uL (4.00-5.40); WHITE BLOOD COUNT 5.8 10^3/uL (4.0-10.0)
[2021-11-22 08:00] VITALS: BP 154/66
[2021-11-22] MEDS: MIDODRINE 5 MG TAB PO SCH ×3 (08:00→18:05)
[2021-11-22 08:03] LABS: PLATELET COUNT, AUTOMATED 84 10^3/uL (150-450)
[2021-11-22] MEDS ORDERED: HYDROMORPHONE HCL 0.5 MG/ 0.5 ML SYRINGE (J1170 PER 1) IV PRN (08:05)
[2021-11-22] MEDS: INSULIN LISPRO (NovoLOG) PER UNIT SC SCH ×4 (09:03→20:28)
[2021-11-22] MEDS: LIDOCAINE 5% (LIDODERM) PATCH TD SCH (09:04)
[2021-11-22] MEDS: TORSEMIDE 20 MG TAB PO SCH ×2 (09:05→18:04)
[2021-11-22] MEDS: predniSONE 20 MG TAB PO SCH (09:05)
[2021-11-22] MEDS: GABAPENTIN 300 MG CAP PO SCH ×2 (09:06→20:36)
[2021-11-22] MEDS: FLUTICASONE PROP 0.05% NASAL SPRAY 16 GM (FLONASE) NARES SCH (09:06)
[2021-11-22] MEDS: NYSTATIN 100,000 UNITS/GM TOPICAL PWD 15 GM TOP SCH ×2 (09:06→20:36)
[2021-11-22] MEDS: CitaloPRAM (CeleXA) 20 MG TAB PO SCH (09:06)
[2021-11-22] MEDS: CEFEPIME HCL 2 GM in D5W MINI-BAG PLUS 50 ML IV SCH (09:08)
[2021-11-22] MEDS: PANTOPRAZOLE 20 MG TAB PO SCH (09:08)
[2021-11-22 12:00] VITALS: BP 137/63
[2021-11-22] MEDS: LevoFLOXacin 750 MG TABLET PO SCH (12:47)
[2021-11-22 16:00] VITALS: BP 123/58
[2021-11-22] MEDS: LATANOPROST 0.005% OPHTH SOLN 2.5 ML OU SCH (20:36)
[2021-11-22] MEDS: **NOTE PATIENT COMMENT** MISC XX SCH (20:36)
[2021-11-22 20:49] VITALS: BP 155/66
[2021-11-23] VITALS: BP 106/62
[2021-11-23] MEDS: ACETAMINOPHEN TAB 650MG DOSE (2X325MG) PO PRN (01:09)
[2021-11-23] MEDS: IPRATROPIUM 0.5MG/ALBUTEROL 2.5MG INH SOL UD 3ML (DUONEB) NEB SCH ×4 (01:42→19:24)
[2021-11-23] MEDS: BACLOFEN 5MG PER 1/2 TABLET PO PRN (02:10)
[2021-11-23] MEDS: MORPHINE 4 MG/ML 1ML VIAL/SYRINGE IV PRN ×2 (02:56→22:30)
[2021-11-23 04:00] VITALS: BP 101/50
[2021-11-23 06:34] LABS: CALCIUM LEVEL 9.1 MG/DL (8.8-10.2); CREATININE FOR GFR 1.36 MG/DL (0.55-1.30); GLOMERULAR FILTRATION RATE 39.9 (>39); POTASSIUM SERUM 3.6 MEQ/L (3.5-5.1)
[2021-11-23] MEDS ORDERED: LIDOCAINE 2% 100MG/5ML SDV (FOR ANES.) As Ordered ONE (08:19)
[2021-11-23] MEDS ORDERED: ONDANSETRON 4MG 2ML VIAL As Ordered ONE (08:19)
[2021-11-23] MEDS ORDERED: dexameTHASONE 4 MG/ML 1ML VIAL (J1100 PER 1MG) As Ordered ONE (08:19)
[2021-11-23] MEDS ORDERED: fentaNYL 100 MCG/2 ML INJECTION As Ordered ONE (08:19)
[2021-11-23] MEDS ORDERED: ACETAMINOPHEN 1000MG 100ML IV BTL (OFIRMEV) (J0131 PER 10MG) As Ordered ONE ×2 (08:20→10:31)
[2021-11-23] MEDS ORDERED: propofoL 200 MG/20 ML VIAL As Ordered ONE (08:20)
[2021-11-23] MEDS: ADVAIR HFA 230/21MCG INHALER INH SCH ×2 (08:23→19:24)
[2021-11-23] MEDS: MIDODRINE 5 MG TAB PO SCH ×3 (08:23→17:36)
[2021-11-23] MEDS: GABAPENTIN 300 MG CAP PO SCH ×2 (08:23→20:45)
[2021-11-23] MEDS: predniSONE 20 MG TAB PO SCH (08:23)
[2021-11-23] MEDS: INSULIN LISPRO (NovoLOG) PER UNIT SC SCH ×4 (08:23→20:46)
[2021-11-23] MEDS: PANTOPRAZOLE 20 MG TAB PO SCH (08:23)
[2021-11-23] MEDS: CitaloPRAM (CeleXA) 20 MG TAB PO SCH (08:23)
[2021-11-23] MEDS: LIDOCAINE 5% (LIDODERM) PATCH TD SCH (08:24)
[2021-11-23] MEDS: FLUTICASONE PROP 0.05% NASAL SPRAY 16 GM (FLONASE) NARES SCH (08:24)
[2021-11-23] MEDS: NYSTATIN 100,000 UNITS/GM TOPICAL PWD 15 GM TOP SCH ×2 (08:24→20:46)
[2021-11-23 08:39] VITALS: BP 120/56
[2021-11-23] MEDS ORDERED: ceFAZolin 2 GM/D5W 50 ML IV BAG (J0690 PER 500MG) As Ordered ONE (10:13)
[2021-11-23] MEDS ORDERED: LIDOCAINE 1% SDV 30ML VIAL As Ordered ONE (10:23)
[2021-11-23] MEDS ORDERED: BUPIVACAINE HCL 0.25% 30ML VIAL As Ordered ONE (10:24)
[2021-11-23] MEDS ORDERED: AMOX875T2 PO (10:49)
[2021-11-23] MEDS ORDERED: AZIT-12 PO (10:49)
[2021-11-23] MEDS ORDERED: ALBU2.5V10 INH (10:49)
[2021-11-23] MEDS ORDERED: DOXY100T PO (10:49)
[2021-11-23] MEDS ORDERED: CEFD300C41 PO (10:49)
[2021-11-23] MEDS ORDERED: PRED10TA2 PO (10:49)
[2021-11-23] MEDS ORDERED: ALBU8.5H INH (10:49)
[2021-11-23] MEDS ORDERED: PRED20TA PO (10:49)
[2021-11-23] MEDS ORDERED: IPRA0.00 INH (10:49)
[2021-11-23] MEDS ORDERED: CEFP200T PO (10:49)
[2021-11-23] MEDS ORDERED: SPIR1CAP INH (10:56)
[2021-11-23] MEDS ORDERED: fentaNYL 100 MCG/2 ML INJECTION IV PRN (11:50)
[2021-11-23] MEDS ORDERED: HYDROMORPHONE HCL 0.5 MG/ 0.5 ML SYRINGE (J1170 PER 1) IV PRN (11:50)
[2021-11-23] MEDS ORDERED: oxyCODONE 5MG TAB PO PRN (11:50)
[2021-11-23] MEDS ORDERED: LR 1,000 ML IV SCH (11:50)
[2021-11-23] MEDS ORDERED: ONDANSETRON 4MG 2ML VIAL IV PRN (11:50)
[2021-11-23] MEDS ORDERED: LEVO1TAB40 PO (13:14)
[2021-11-23 13:16] VITALS: BP 117/57
[2021-11-23 15:40] VITALS: BP 113/57
[2021-11-23] MEDS ORDERED: HEPARIN SOD (PORCINE) 5000UNITS/ML 1ML VIAL/SYRINGE SQ SCH (16:40)
[2021-11-23 20:25] VITALS: BP 128/59
[2021-11-23] MEDS: LATANOPROST 0.005% OPHTH SOLN 2.5 ML OU SCH (20:46)
[2021-11-23] MEDS: **NOTE PATIENT COMMENT** MISC XX SCH (20:47)
[2021-11-24] MEDS: IPRATROPIUM 0.5MG/ALBUTEROL 2.5MG INH SOL UD 3ML (DUONEB) NEB SCH ×4 (02:00→20:00)
[2021-11-24 04:00] VITALS: BP 115/55
[2021-11-24] MEDS: LevoFLOXacin 750 MG TABLET PO SCH (05:31)
[2021-11-24 06:11] LABS: HEMATOCRIT 25.4 % (36.0-47.0); HEMOGLOBIN 7.9 g/dl (12.0-15.5); MEAN CORPUSCULAR HEMOGLOBIN 31.9 pg (27.0-33.0); MEAN CORPUSCULAR HGB CONC 31.1 g/dl (32.0-36.5); MEAN CORPUSCULAR VOLUME 102.4 fl (80.0-96.0); RED BLOOD COUNT 2.48 10^6/uL (4.00-5.40); WHITE BLOOD COUNT 9.8 10^3/uL (4.0-10.0)
[2021-11-24 06:13] LABS: PLATELET COUNT, AUTOMATED 89 10^3/uL (150-450)
[2021-11-24 06:40] LABS: CALCIUM LEVEL 9.3 MG/DL (8.8-10.2); CREATININE FOR GFR 1.37 MG/DL (0.55-1.30); GLOMERULAR FILTRATION RATE 39.6 (>39); MAGNESIUM LEVEL 2.2 MG/DL (1.8-2.4); PHOSPHORUS LEVEL 2.3 MG/DL (2.5-4.9); POTASSIUM SERUM 4.1 MEQ/L (3.5-5.1)
[2021-11-24 07:52] VITALS: BP 134/60
[2021-11-24] MEDS: ADVAIR HFA 230/21MCG INHALER INH SCH ×2 (08:08→20:22)
[2021-11-24] MEDS: K-PHOS NEUTRAL 250MG TABLET (SOD.PHOSPHATE/POT.PHOSPHATE) PO SCH ×3 (08:52→20:54)
[2021-11-24] MEDS: predniSONE 20 MG TAB PO SCH (08:52)
[2021-11-24] MEDS: CitaloPRAM (CeleXA) 20 MG TAB PO SCH (08:52)
[2021-11-24] MEDS: ACETAMINOPHEN TAB 650MG DOSE (2X325MG) PO PRN ×2 (08:52→20:54)
[2021-11-24] MEDS: PANTOPRAZOLE 20 MG TAB PO SCH (08:52)
[2021-11-24] MEDS: GABAPENTIN 300 MG CAP PO SCH ×2 (08:52→20:54)
[2021-11-24] MEDS: MIDODRINE 5 MG TAB PO SCH ×3 (08:52→17:44)
[2021-11-24] MEDS: INSULIN LISPRO (NovoLOG) PER UNIT SC SCH ×4 (08:53→21:00)
[2021-11-24] MEDS: LIDOCAINE 5% (LIDODERM) PATCH TD SCH (08:53)
[2021-11-24] MEDS: FLUTICASONE PROP 0.05% NASAL SPRAY 16 GM (FLONASE) NARES SCH (08:53)
[2021-11-24] MEDS: NYSTATIN 100,000 UNITS/GM TOPICAL PWD 15 GM TOP SCH ×2 (08:54→20:54)
[2021-11-24 16:00] VITALS: BP 135/61
[2021-11-24 17:15] VITALS: BP 133/64
[2021-11-24] MEDS: LATANOPROST 0.005% OPHTH SOLN 2.5 ML OU SCH (20:54)
[2021-11-24] MEDS: **NOTE PATIENT COMMENT** MISC XX SCH (20:55)
[2021-11-25] MEDS: IPRATROPIUM 0.5MG/ALBUTEROL 2.5MG INH SOL UD 3ML (DUONEB) NEB SCH ×4 (02:00→19:37)
[2021-11-25] MEDS: ACETAMINOPHEN TAB 650MG DOSE (2X325MG) PO PRN ×2 (04:25→20:36)
[2021-11-25 06:00] VITALS: BP 119/49
[2021-11-25 07:04] LABS: CALCIUM LEVEL 9.1 MG/DL (8.8-10.2); CREATININE FOR GFR 1.39 MG/DL (0.55-1.30); GLOMERULAR FILTRATION RATE 38.9 (>39)
[2021-11-25] MEDS: ADVAIR HFA 230/21MCG INHALER INH SCH ×2 (07:43→19:36)
[2021-11-25] MEDS: INSULIN LISPRO (NovoLOG) PER UNIT SC SCH ×4 (08:56→20:37)
[2021-11-25] MEDS: K-PHOS NEUTRAL 250MG TABLET (SOD.PHOSPHATE/POT.PHOSPHATE) PO SCH ×3 (08:56→20:35)
[2021-11-25] MEDS: PANTOPRAZOLE 20 MG TAB PO SCH (08:56)
[2021-11-25] MEDS: predniSONE 20 MG TAB PO SCH (08:56)
[2021-11-25] MEDS: LIDOCAINE 5% (LIDODERM) PATCH TD SCH (08:56)
[2021-11-25] MEDS: GABAPENTIN 300 MG CAP PO SCH ×2 (08:57→20:35)
[2021-11-25] MEDS: CitaloPRAM (CeleXA) 20 MG TAB PO SCH (08:57)
[2021-11-25] MEDS: FLUTICASONE PROP 0.05% NASAL SPRAY 16 GM (FLONASE) NARES SCH (08:57)
[2021-11-25] MEDS: MIDODRINE 5 MG TAB PO SCH ×3 (08:57→16:54)
[2021-11-25] MEDS: NYSTATIN 100,000 UNITS/GM TOPICAL PWD 15 GM TOP SCH ×2 (08:57→20:36)
[2021-11-25] MEDS ORDERED: ENOXAPARIN 40MG/0.4ML SYRINGE (J1650 PER 10MG) SC ONE (11:30)
[2021-11-25] MEDS: BACLOFEN 5MG PER 1/2 TABLET PO PRN (20:35)
[2021-11-25] MEDS: LATANOPROST 0.005% OPHTH SOLN 2.5 ML OU SCH (20:36)
[2021-11-25] MEDS: **NOTE PATIENT COMMENT** MISC XX SCH (20:36)
[2021-11-26] MEDS: IPRATROPIUM 0.5MG/ALBUTEROL 2.5MG INH SOL UD 3ML (DUONEB) NEB SCH ×2 (02:00→08:00)
[2021-11-26] MEDS: LevoFLOXacin 750 MG TABLET PO SCH (03:56)
[2021-11-26 06:00] VITALS: BP 121/48
[2021-11-26 06:07] LABS: HEMATOCRIT 27.1 % (36.0-47.0); HEMOGLOBIN 8.5 g/dl (12.0-15.5); MEAN CORPUSCULAR HEMOGLOBIN 31.6 pg (27.0-33.0); MEAN CORPUSCULAR HGB CONC 31.4 g/dl (32.0-36.5); MEAN CORPUSCULAR VOLUME 100.7 fl (80.0-96.0); PLATELET COUNT, AUTOMATED 101 10^3/uL (150-450); RED BLOOD COUNT 2.69 10^6/uL (4.00-5.40); WHITE BLOOD COUNT 14.1 10^3/uL (4.0-10.0)
[2021-11-26 07:00] LABS: CALCIUM LEVEL 8.8 MG/DL (8.8-10.2); CREATININE FOR GFR 1.28 MG/DL (0.55-1.30); GLOMERULAR FILTRATION RATE 42.8 (>39); MAGNESIUM LEVEL 2.2 MG/DL (1.8-2.4); PHOSPHORUS LEVEL 3.6 MG/DL (2.5-4.9); POTASSIUM SERUM 3.7 MEQ/L (3.5-5.1)
[2021-11-26] MEDS: ADVAIR HFA 230/21MCG INHALER INH SCH (07:18)
[2021-11-26] MEDS: NYSTATIN 100,000 UNITS/GM TOPICAL PWD 15 GM TOP SCH (10:20)
[2021-11-26] MEDS: FLUTICASONE PROP 0.05% NASAL SPRAY 16 GM (FLONASE) NARES SCH (10:20)
[2021-11-26] MEDS: LIDOCAINE 5% (LIDODERM) PATCH TD SCH (10:20)
[2021-11-26] MEDS: CitaloPRAM (CeleXA) 20 MG TAB PO SCH (10:21)
[2021-11-26] MEDS: K-PHOS NEUTRAL 250MG TABLET (SOD.PHOSPHATE/POT.PHOSPHATE) PO SCH (10:21)
[2021-11-26] MEDS: TORSEMIDE 20 MG TAB PO SCH (10:21)
[2021-11-26] MEDS: PANTOPRAZOLE 20 MG TAB PO SCH (10:21)
[2021-11-26] MEDS: MIDODRINE 5 MG TAB PO SCH ×2 (10:21→13:06)
[2021-11-26] MEDS: GABAPENTIN 300 MG CAP PO SCH (10:21)
[2021-11-26] MEDS: predniSONE 20 MG TAB PO SCH (10:21)
[2021-11-26] MEDS: ACETAMINOPHEN TAB 650MG DOSE (2X325MG) PO PRN (10:22)
[2021-11-26] MEDS: INSULIN LISPRO (NovoLOG) PER UNIT SC SCH ×2 (10:22→13:06)
[2021-11-26] MEDS ORDERED: BISACODYL 10 MG SUPP PR ONE (10:35)
[2021-11-26] MEDS ORDERED: MOM 30ML SUSPENSION UDC PO ONE (10:35)
== END 2021-11-26 14:05 | DRG 988 ==
LOC: M ED 00:35 → EDSEX 00:35 → EDBD 00:35 → M ED INP 03:55 → ENRESERV 12:58 → M PCU 14:09 → M MS5PR 11-24 16:46
PROVIDERS: ADMIT Internal Medicine; ATTEND Internal Medicine
PROC: 07BJ0ZX Excision of Left Inguinal Lymphatic, Open Approach, Diagnostic (ICD-10-PCS; principal; 2021-11-23 09:45)
DX: J15.1 Pneumonia due to Pseudomonas (principal); J44.1 Chronic obstructive pulmonary disease with (acute) exacerbation; E87.20 Acidosis, unspecified; L03.115 Cellulitis of right lower limb; L03.116 Cellulitis of left lower limb; J45.901 Unspecified asthma with (acute) exacerbation; N39.0 Urinary tract infection, site not specified; C85.15 Unspecified B-cell lymphoma, lymph nodes of inguinal region and lower limb; J44.0 Chronic obstructive pulmonary disease with (acute) lower respiratory infection; N17.9 Acute kidney failure, unspecified; N20.0 Calculus of kidney; Z66 Do not resuscitate; N28.89 Other specified disorders of kidney and ureter; F32.A Depression, unspecified; I48.0 Paroxysmal atrial fibrillation; R16.2 Hepatomegaly with splenomegaly, not elsewhere classified; I27.29 Other secondary pulmonary hypertension; D64.9 Anemia, unspecified; Y95 Nosocomial condition; B96.1 Klebsiella pneumoniae [K. pneumoniae] as the cause of diseases classified elsewhere; R91.8 Other nonspecific abnormal finding of lung field; N18.32 Chronic kidney disease, stage 3b; K21.9 Gastro-esophageal reflux disease without esophagitis; Z79.891 Long term (current) use of opiate analgesic; Z79.899 Other long term (current) drug therapy; Z88.1 Allergy status to other antibiotic agents; Z88.2 Allergy status to sulfonamides; Z79.01 Long term (current) use of anticoagulants; Z88.5 Allergy status to narcotic agent; Z88.8 Allergy status to other drugs, medicaments and biological substances; Z87.891 Personal history of nicotine dependence; Z95.0 Presence of cardiac pacemaker; Z85.3 Personal history of malignant neoplasm of breast; Z92.3 Personal history of irradiation

== ENCOUNTER → 2021-11-21 | Outpatient (REF) ==
[~2021-11-21] MED LIST changes: +ALBU2.5V10 INH; +AMOX875T2 PO; +AZIT-12 PO; +CEFD300C41 PO; +CEFP200T PO; +CELE20TA PO; +CLAR10CA3 PO
== END ==
PROVIDERS: ATTEND Physician Assistant
DX: N18.9 Chronic kidney disease, unspecified (principal); Z53.8 Procedure and treatment not carried out for other reasons

== ENCOUNTER → 2021-11-21 | Outpatient (REF) | payer MEDICARE, OTHER | PROVIDERS: ATTEND Internal Medicine | DX: N18.9 Chronic kidney disease, unspecified (principal); Z53.8 Procedure and treatment not carried out for other reasons ==

== ENCOUNTER → 2021-11-28 | Outpatient (REF) | PROVIDERS: ATTEND Physician Assistant | DX: N18.9 Chronic kidney disease, unspecified (principal); Z53.9 Procedure and treatment not carried out, unspecified reason ==

== ENCOUNTER → 2021-11-28 | Outpatient (REF) ==
[2021-11-28 12:07] LABS: HEMATOCRIT 30.9 % (36.0-47.0); HEMOGLOBIN 9.1 g/dl (12.0-15.5); MEAN CORPUSCULAR HEMOGLOBIN 30.8 pg (27.0-33.0); MEAN CORPUSCULAR HGB CONC 29.4 g/dl (32.0-36.5); MEAN CORPUSCULAR VOLUME 104.7 fl (80.0-96.0); PLATELET COUNT, AUTOMATED 123 10^3/uL (150-450); RED BLOOD COUNT 2.95 10^6/uL (4.00-5.40); WHITE BLOOD COUNT 14.6 10^3/uL (4.0-10.0)
== END ==
PROVIDERS: ATTEND Physician Assistant
DX: D64.9 Anemia, unspecified (principal)

== ENCOUNTER → 2021-11-28 | Outpatient (REF) | payer MEDICARE, OTHER | PROVIDERS: ATTEND Internal Medicine | DX: N18.9 Chronic kidney disease, unspecified (principal); Z53.9 Procedure and treatment not carried out, unspecified reason ==

== ENCOUNTER → 2021-11-29 | Outpatient (REF) | payer MEDICARE, OTHER | PROVIDERS: ATTEND Physician Assistant | DX: L03.116 Cellulitis of left lower limb (principal); Z53.8 Procedure and treatment not carried out for other reasons ==

== ENCOUNTER → 2021-11-29 | Outpatient (REF) ==
[2021-11-29 10:44] LABS: HEMATOCRIT 31.3 % (36.0-47.0); HEMOGLOBIN 9.2 g/dl (12.0-15.5); MEAN CORPUSCULAR HEMOGLOBIN 30.4 pg (27.0-33.0); MEAN CORPUSCULAR HGB CONC 29.4 g/dl (32.0-36.5); MEAN CORPUSCULAR VOLUME 103.3 fl (80.0-96.0); PLATELET COUNT, AUTOMATED 126 10^3/uL (150-450); RED BLOOD COUNT 3.03 10^6/uL (4.00-5.40); WHITE BLOOD COUNT 9.5 10^3/uL (4.0-10.0)
[2021-11-29 12:11] LABS: CALCIUM LEVEL 9.2 MG/DL (8.8-10.2); CREATININE FOR GFR 1.26 MG/DL (0.55-1.30); GLOMERULAR FILTRATION RATE 43.6 (>39); POTASSIUM SERUM 3.6 MEQ/L (3.5-5.1)
== END ==
PROVIDERS: ATTEND Physician Assistant
DX: L03.116 Cellulitis of left lower limb (principal)

== ENCOUNTER 2021-12-09 01:18 | Emergency (ER) | payer MEDICARE, OTHER ==
[~2021-12-09] VITALS: Ht 152.4 cm; Wt 106.8 kg
[2021-12-09] MEDS ORDERED: PRED10TA2 PO (03:00)
[2021-12-09] MEDS ORDERED: LIDOCAINE W/EPINEPHRINE 1% 20ML VIAL SC ONE (03:30)
[2021-12-09] MEDS ORDERED: HOME MED LIST COMPLETE! XX SCH (05:10)
[2021-12-09 05:30] VITALS: BP 150/67
[2021-12-10] MEDS ORDERED: PERCOCET PO (14:05)
[2021-12-10] MEDS ORDERED: IPRA0.00 INH (14:05)
[2021-12-10] MEDS ORDERED: BACL5TAB2 PO (14:05)
[2021-12-10] MEDS ORDERED: SPIR1CAP INH (14:05)
== END 2021-12-09 06:27 | disposition home or self-care (01) ==
LOC: M ED 01:18
DX: S81.812A Laceration without foreign body, left lower leg, initial encounter (principal); W26.8XXA Contact with other sharp object(s), not elsewhere classified, initial encounter; I48.91 Unspecified atrial fibrillation; J44.9 Chronic obstructive pulmonary disease, unspecified; Z88.2 Allergy status to sulfonamides; Z88.1 Allergy status to other antibiotic agents; Z88.6 Allergy status to analgesic agent; Z79.899 Other long term (current) drug therapy; Z79.01 Long term (current) use of anticoagulants; Z79.51 Long term (current) use of inhaled steroids

== ENCOUNTER 2021-12-10 10:47 | Inpatient (IN) | payer MEDICARE, OTHER ==
[~2021-12-10] VITALS: Ht 152.4 cm; Wt 108.2 kg
[2021-12-10] MEDS ORDERED: MORPHINE 2 MG/ML 1ML VIAL IV PRN (11:45)
[2021-12-10 12:19] LABS: VENOUS BASE EXCESS 4.8 (-2.0-2.0); VENOUS HCO3 31.5 MEQ/L (23.0-27.0); VENOUS O2 SATURATION 60.7 % (60.0-80.0); VENOUS PARTIAL PRESSURE CO2 56.9 mmHg (38.0-50.0); VENOUS PH 7.361 UNITS (7.330-7.430); VENOUS TOTAL CO2 33.2 MEQ/L (24.0-28.0)
[2021-12-10 12:25] LABS: APPEARANCE, URINE MANUAL HAZY (CLEAR); BILIRUBIN, URINE MANUAL NEGATIVE (NEGATIVE); BLOOD URINE MANUAL NEGATIVE (NEGATIVE); COLOR, URINE MANUAL YELLOW (YELLOW); GLUCOSE, URINE (UA) MANUAL NEGATIVE (NEGATIVE); KETONE, URINE MANUAL NEGATIVE (NEGATIVE); LEUKOCYTE ESTERASE, URINE MAN POSITIVE (NEGATIVE); NITRITE, URINE MANUAL POSITIVE (NEGATIVE); PH,URINE MAN 6.5 UNITS (5.0 - 7.0); PROTEIN, URINE MANUAL NEGATIVE (NEGATIVE); UROBILINOGEN, URINE MANUAL NORMAL (NORMAL)
[2021-12-10 12:26] LABS: BASO % 0.2 % (0.0-1.0); EOS # 0.2 10^3/uL (0.0-0.5); EOS % 1.7 % (0.0-3.0); HEMATOCRIT 34.4 % (36.0-47.0); HEMOGLOBIN 10.6 g/dl (12.0-15.5); LYMPH # 1.5 10^3/uL (1.5-5.0); LYMPH % 12.1 % (24.0-44.0); MEAN CORPUSCULAR HEMOGLOBIN 30.5 pg (27.0-33.0); MEAN CORPUSCULAR HGB CONC 30.8 g/dl (32.0-36.5); MEAN CORPUSCULAR VOLUME 99.1 fl (80.0-96.0); MONO # 0.8 10^3/uL (0.0-0.8); NEUTROPHILS % 78.1 % (36.0-66.0); PLATELET COUNT, AUTOMATED 142 10^3/uL (150-450); RED BLOOD COUNT 3.47 10^6/uL (4.00-5.40); WHITE BLOOD COUNT 12.8 10^3/uL (4.0-10.0)
[2021-12-10 12:33] LABS: RBC, URINE NONE SEEN /hpf (0-3); SQUAMOUS EPITHELIAL CELL URINE SMALL AMOUNT /hpf (SMALL AMT); WBC, URINE 30-40 /hpf (0-3)
[2021-12-10 12:34] LABS: BACTERIA, URINE LARGE AMOUNT; HYALINE CAST, URINE NONE SEEN /lpf (0-1)
[2021-12-10 12:41] LABS: INR 1.41; PROTHROMBIN TIME 17.5 SECONDS (12.5-14.5)
[2021-12-10 12:42] LABS: PARTIAL THROMBOPLASTIN TIME 24.7 SECONDS (24.8-34.2)
[2021-12-10 13:13] LABS: ALBUMIN 3.3 GM/DL (3.2-5.2); BILIRUBIN,DIRECT 0.2 MG/DL (0.0-0.2); BILIRUBIN,TOTAL 0.6 MG/DL (0.2-1.0); C REACTIVE PROTEIN QUANTITATIV 1.52 MG/DL (0.00-0.30); CALCIUM LEVEL 9.7 MG/DL (8.8-10.2); CREATININE FOR GFR 1.23 MG/DL (0.55-1.30); GLOMERULAR FILTRATION RATE 44.8 (>39); POTASSIUM SERUM 3.9 MEQ/L (3.5-5.1); TOTAL PROTEIN 5.7 GM/DL (6.4-8.2)
[2021-12-10] MEDS ORDERED: PIPERACILLIN/TAZOBACTAM SOD 4.5 GM in D5W MINI-BAG PLUS 50 ML IV ONE (13:15)
[2021-12-10 13:46] LABS: CK-MB VALUE MASS < 1.0 NG/ML (<3.6); CPK CREATINE PHOSPHOKINASE 16 U/L (26-192); MB/CK RELATIVE INDEX 6.25 (< OR =4)
[2021-12-10] MEDS ORDERED: PERCOCET PO (14:05)
[2021-12-10] MEDS ORDERED: IPRA0.00 INH (14:05)
[2021-12-10] MEDS ORDERED: SPIR1CAP INH (14:05)
[2021-12-10] MEDS ORDERED: BACL5TAB2 PO (14:05)
[2021-12-10] MEDS ORDERED: HOME MED LIST COMPLETE! XX SCH (15:25)
[2021-12-10] MEDS ORDERED: NS 1,000 ML IV SCH (23:30)
[2021-12-10] MEDS ORDERED: ALBUTEROL 90 MCG/ACT 8GM HFA INHALER INH PRN (23:35)
[2021-12-10] MEDS ORDERED: IPRATROPIUM 0.5MG/ALBUTEROL 2.5MG INH SOL UD 3ML (DUONEB) NEB PRN (23:35)
[2021-12-10] MEDS ORDERED: NS 250 ML IV STA (23:57)
[2021-12-11] MEDS: ACETAMINOPHEN TAB 650MG DOSE (2X325MG) PO PRN ×2 (00:19→15:22)
[2021-12-11] MEDS: PIPERACILLIN/TAZOBACTAM SOD 3.375 GM in D5W MINI-BAG PLUS 50 ML IV SCH ×5 (00:19→23:52)
[2021-12-11] MEDS: IPRATROPIUM 0.5MG/ALBUTEROL 2.5MG INH SOL UD 3ML (DUONEB) NEB SCH ×4 (02:39→20:00)
[2021-12-11] MEDS ORDERED: NS 500 ML IV ONE (05:20)
[2021-12-11 07:49] LABS: CREATININE FOR GFR 1.36 MG/DL (0.55-1.30); GLOMERULAR FILTRATION RATE 39.9 (>39); POTASSIUM SERUM 3.8 MEQ/L (3.5-5.1)
[2021-12-11 08:00] LABS: BASO % 0.2 % (0.0-1.0); EOS # 0.3 10^3/uL (0.0-0.5); EOS % 3.2 % (0.0-3.0); HEMATOCRIT 29.8 % (36.0-47.0); LYMPH # 1.2 10^3/uL (1.5-5.0); MEAN CORPUSCULAR HEMOGLOBIN 30.7 pg (27.0-33.0); MEAN CORPUSCULAR HGB CONC 30.2 g/dl (32.0-36.5); MEAN CORPUSCULAR VOLUME 101.7 fl (80.0-96.0); MONO # 0.6 10^3/uL (0.0-0.8); MONO % 6.5 % (2.0-8.0); NEUTROPHILS # 6.4 10^3/uL (1.5-8.5); NEUTROPHILS % 74.4 % (36.0-66.0); PLATELET COUNT, AUTOMATED 101 10^3/uL (150-450); RED BLOOD COUNT 2.93 10^6/uL (4.00-5.40); WHITE BLOOD COUNT 8.7 10^3/uL (4.0-10.0)
[2021-12-11] MEDS: CitaloPRAM (CeleXA) 20 MG TAB PO SCH (08:44)
[2021-12-11] MEDS: MUPIROCIN 2% OINT 22 GM TUBE TOP SCH ×3 (08:44→23:52)
[2021-12-11] MEDS: PANTOPRAZOLE 20 MG TAB PO SCH (09:00)
[2021-12-11] MEDS: ADVAIR HFA 230/21MCG INHALER INH SCH ×2 (09:05→20:27)
[2021-12-11] MEDS: GABAPENTIN 300 MG CAP PO SCH ×2 (12:26→21:13)
[2021-12-11] MEDS: HEPARIN SOD (PORCINE) 5000UNITS/ML 1ML VIAL/SYRINGE SQ SCH ×2 (14:12→21:13)
[2021-12-11] MEDS: TORSEMIDE 20 MG TAB PO SCH (14:13)
[2021-12-11 15:12] VITALS: BP 110/56
[2021-12-11] MEDS ORDERED: FLUBLOK(EGG FREE)(QUAD)INFLUENZA VACC 0.5ML SYRINGE 18YRS & OLDER IM.IMMUN ONE (17:00)
[2021-12-12] VITALS (17 sets, daily range): BP systolic 80–146; BP diastolic 38–67; O2SAT 97–99
[2021-12-12] MEDS: IPRATROPIUM 0.5MG/ALBUTEROL 2.5MG INH SOL UD 3ML (DUONEB) NEB SCH ×4 (02:00→20:00)
[2021-12-12] MEDS: HEPARIN SOD (PORCINE) 5000UNITS/ML 1ML VIAL/SYRINGE SQ SCH ×2 (05:38→14:28)
[2021-12-12] MEDS: PIPERACILLIN/TAZOBACTAM SOD 3.375 GM in D5W MINI-BAG PLUS 50 ML IV SCH ×2 (05:38→11:06)
[2021-12-12] MEDS: ADVAIR HFA 230/21MCG INHALER INH SCH ×2 (06:21→20:00)
[2021-12-12 06:59] LABS: CREATININE FOR GFR 1.4 MG/DL (0.55-1.30); GLOMERULAR FILTRATION RATE 38.6 (>39); POTASSIUM SERUM 3.7 MEQ/L (3.5-5.1)
[2021-12-12] MEDS: TORSEMIDE 20 MG TAB PO SCH ×2 (09:00→11:06)
[2021-12-12 10:31] LABS: HEMOGLOBIN A1c 6.1 %
[2021-12-12] MEDS: CitaloPRAM (CeleXA) 20 MG TAB PO SCH (11:09)
[2021-12-12] MEDS: GABAPENTIN 300 MG CAP PO SCH ×2 (11:09→22:14)
[2021-12-12] MEDS: PANTOPRAZOLE 20 MG TAB PO SCH (11:09)
[2021-12-12] MEDS: MUPIROCIN 2% OINT 22 GM TUBE TOP SCH ×3 (11:09→22:14)
[2021-12-12] MEDS: ACETAMINOPHEN TAB 650MG DOSE (2X325MG) PO PRN ×2 (11:09→17:56)
[2021-12-12] MEDS ORDERED: VANCOMYCIN HCL 1,620 MG in IV FLUID PLACE HOLDER 1 EA IV SCH (11:25)
[2021-12-12] MEDS ORDERED: CEFEPIME HCL 1 GM in D5W MINI-BAG PLUS 50 ML IV SCH (11:25)
[2021-12-12] MEDS ORDERED: LR 1,000 ML IV ONE (11:25)
[2021-12-12 11:56] LABS: HEMATOCRIT 25.3 % (36.0-47.0); HEMOGLOBIN 8.1 g/dl (12.0-15.5); MEAN CORPUSCULAR HEMOGLOBIN 30.5 pg (27.0-33.0); MEAN CORPUSCULAR VOLUME 95.1 fl (80.0-96.0); PLATELET COUNT, AUTOMATED 101 10^3/uL (150-450); RED BLOOD COUNT 2.66 10^6/uL (4.00-5.40); WHITE BLOOD COUNT 7.2 10^3/uL (4.0-10.0)
[2021-12-12] MEDS ORDERED: VANCOMYCIN HCL 1,000 MG, VIAL MATE ADAPTER 1 EACH in NS 250 ML IV ONE ×6 (12:00)
[2021-12-12] MEDS: CEFEPIME HCL 2 GM in D5W MINI-BAG PLUS 50 ML IV SCH (15:44)
[2021-12-12] MEDS ORDERED: ISOVUE-370 76% 100ML VIAL As Ordered ONE (15:52)
[2021-12-12] MEDS: GASTROGRAFIN SOLUTION 30ML PO SCH ×2 (16:15→16:32)
[2021-12-12 18:42] LABS: ABG HCO3 27.4 MEQ/L (22.0-26.0); ABG O2 SATURATION 96.7 % (95.0-99.0); ABG PARTIAL PRESSURE CO2 41.2 mmHg (35.0-45.0); ABG PARTIAL PRESSURE O2 92.3 mmHg (75.0-100.0); ABG STANDARD HCO3 27.2 MEQ/L (22.0-26.0); ABG TOTAL CO2 28.7 MEQ/L (23.0-31.0); ABG pH (ARTERIAL) 7.441 UNITS (7.350-7.450)
[2021-12-12 21:48] LABS: HEMATOCRIT 27.8 % (36.0-47.0); MEAN CORPUSCULAR HEMOGLOBIN 30.3 pg (27.0-33.0); MEAN CORPUSCULAR HGB CONC 32.4 g/dl (32.0-36.5); MEAN CORPUSCULAR VOLUME 93.6 fl (80.0-96.0); PLATELET COUNT, AUTOMATED 112 10^3/uL (150-450); RED BLOOD COUNT 2.97 10^6/uL (4.00-5.40); WHITE BLOOD COUNT 7.1 10^3/uL (4.0-10.0)
[2021-12-13] VITALS (18 sets, daily range): BP systolic 104–147; BP diastolic 40–66; O2SAT 96–99
[2021-12-13] MEDS: CEFEPIME HCL 2 GM in D5W MINI-BAG PLUS 50 ML IV SCH ×2 (03:30→13:53)
[2021-12-13 07:52] LABS: HEMATOCRIT 30.1 % (36.0-47.0); HEMOGLOBIN 9.7 g/dl (12.0-15.5); MEAN CORPUSCULAR HEMOGLOBIN 30.1 pg (27.0-33.0); MEAN CORPUSCULAR HGB CONC 32.2 g/dl (32.0-36.5); MEAN CORPUSCULAR VOLUME 93.5 fl (80.0-96.0); PLATELET COUNT, AUTOMATED 107 10^3/uL (150-450); RED BLOOD COUNT 3.22 10^6/uL (4.00-5.40); WHITE BLOOD COUNT 6.7 10^3/uL (4.0-10.0)
[2021-12-13] MEDS: IPRATROPIUM 0.5MG/ALBUTEROL 2.5MG INH SOL UD 3ML (DUONEB) NEB SCH ×3 (08:00→20:00)
[2021-12-13 08:36] LABS: CALCIUM LEVEL 9.5 MG/DL (8.8-10.2); CREATININE FOR GFR 1.05 MG/DL (0.55-1.30); GLOMERULAR FILTRATION RATE 53.8 (>39); POTASSIUM SERUM 4.1 MEQ/L (3.5-5.1)
[2021-12-13] MEDS: PANTOPRAZOLE 20 MG TAB PO SCH (08:55)
[2021-12-13] MEDS: MUPIROCIN 2% OINT 22 GM TUBE TOP SCH ×3 (08:56→21:11)
[2021-12-13] MEDS: GABAPENTIN 300 MG CAP PO SCH ×2 (08:56→21:11)
[2021-12-13] MEDS: CitaloPRAM (CeleXA) 20 MG TAB PO SCH (08:56)
[2021-12-13] MEDS: ADVAIR HFA 230/21MCG INHALER INH SCH ×2 (09:17→20:00)
[2021-12-13] MEDS ORDERED: LR 500 ML IV ONE ×2 (11:20→12:00)
[2021-12-13] MEDS ORDERED: ISOVUE-370 76% 100ML VIAL As Ordered ONE (11:25)
[2021-12-13] MEDS ORDERED: VANCOMYCIN HCL 1,000 MG, VIAL MATE ADAPTER 1 EACH in D5W 250 ML IV SCH (12:00)
[2021-12-13 13:28] LABS: HEMATOCRIT 29.4 % (36.0-47.0); HEMOGLOBIN 9.2 g/dl (12.0-15.5); MEAN CORPUSCULAR HEMOGLOBIN 29.7 pg (27.0-33.0); MEAN CORPUSCULAR HGB CONC 31.3 g/dl (32.0-36.5); MEAN CORPUSCULAR VOLUME 94.8 fl (80.0-96.0); PLATELET COUNT, AUTOMATED 111 10^3/uL (150-450); WHITE BLOOD COUNT 5.9 10^3/uL (4.0-10.0)
[2021-12-13] MEDS ORDERED: CEPACOL LOZENGE PO PRN (15:05)
[2021-12-13] MEDS ORDERED: CHLORASEPTIC SPRAY MT PRN (17:20)
[2021-12-13 20:16] LABS: HEMATOCRIT 31.5 % (36.0-47.0); HEMOGLOBIN 9.7 g/dl (12.0-15.5); MEAN CORPUSCULAR HEMOGLOBIN 29.5 pg (27.0-33.0); MEAN CORPUSCULAR HGB CONC 30.8 g/dl (32.0-36.5); MEAN CORPUSCULAR VOLUME 95.7 fl (80.0-96.0); PLATELET COUNT, AUTOMATED 113 10^3/uL (150-450); RED BLOOD COUNT 3.29 10^6/uL (4.00-5.40); WHITE BLOOD COUNT 6.6 10^3/uL (4.0-10.0)
[2021-12-13] MEDS: ACETAMINOPHEN TAB 650MG DOSE (2X325MG) PO PRN (23:51)
[2021-12-14] VITALS (15 sets, daily range): BP systolic 130–137; BP diastolic 59–61; O2SAT 92–99
[2021-12-14] MEDS: CEFEPIME HCL 2 GM in D5W MINI-BAG PLUS 50 ML IV SCH (00:20)
[2021-12-14] MEDS: IPRATROPIUM 0.5MG/ALBUTEROL 2.5MG INH SOL UD 3ML (DUONEB) NEB SCH ×2 (02:00→08:00)
[2021-12-14] MEDS ORDERED: ACETAMINOPHEN TAB 650MG DOSE (2X325MG) PO ONE (05:30)
[2021-12-14 06:16] LABS: CALCIUM LEVEL 9.3 MG/DL (8.8-10.2); CREATININE FOR GFR 1.05 MG/DL (0.55-1.30); GLOMERULAR FILTRATION RATE 53.8 (>39); POTASSIUM SERUM 3.7 MEQ/L (3.5-5.1)
[2021-12-14] MEDS: ADVAIR HFA 230/21MCG INHALER INH SCH (08:00)
[2021-12-14] MEDS ORDERED: CEFDINIR 300 MG CAP (OMNICEF) PO SCH (09:00)
[2021-12-14] MEDS: PANTOPRAZOLE 20 MG TAB PO SCH (09:42)
[2021-12-14] MEDS: ACETAMINOPHEN TAB 650MG DOSE (2X325MG) PO PRN (09:42)
[2021-12-14] MEDS: CitaloPRAM (CeleXA) 20 MG TAB PO SCH (09:42)
[2021-12-14] MEDS: GABAPENTIN 300 MG CAP PO SCH (09:42)
[2021-12-14] MEDS: MUPIROCIN 2% OINT 22 GM TUBE TOP SCH (09:43)
[2021-12-14] MEDS ORDERED: CEFD300CAP PO (10:27)
== END 2021-12-14 13:25 | DRG 871 ==
LOC: M ED 10:47 → M ED INP 21:32 → ENRESERV 12-11 13:50 → M MSPAV 12-11 15:09 → M ED INP 12-12 16:49 → M MSPAV 12-12 16:49 → M PCU 12-12 18:49
PROVIDERS: ADMIT Internal Medicine; ATTEND Student in an Organized Health Care Education/Training Program
DX: A41.9 Sepsis, unspecified organism (principal); G93.41 Metabolic encephalopathy; C85.15 Unspecified B-cell lymphoma, lymph nodes of inguinal region and lower limb; N39.0 Urinary tract infection, site not specified; E87.20 Acidosis, unspecified; E03.9 Hypothyroidism, unspecified; J44.9 Chronic obstructive pulmonary disease, unspecified; I48.91 Unspecified atrial fibrillation; N18.30 Chronic kidney disease, stage 3 unspecified; Z66 Do not resuscitate; I27.81 Cor pulmonale (chronic); G62.9 Polyneuropathy, unspecified; D50.0 Iron deficiency anemia secondary to blood loss (chronic); B96.20 Unspecified Escherichia coli [E. coli] as the cause of diseases classified elsewhere; K74.60 Unspecified cirrhosis of liver; F32.A Depression, unspecified; K21.9 Gastro-esophageal reflux disease without esophagitis; M79.81 Nontraumatic hematoma of soft tissue; Z95.0 Presence of cardiac pacemaker; Z87.891 Personal history of nicotine dependence

== ENCOUNTER → 2021-12-12 | Outpatient (REF) ==
[~2021-12-12] MED LIST changes: +BACL5TAB2 PO
== END ==
PROVIDERS: ATTEND Physician Assistant
DX: D64.9 Anemia, unspecified (principal); Z53.9 Procedure and treatment not carried out, unspecified reason

== ENCOUNTER 2021-12-17 11:01 | Outpatient (RCR) | payer MEDICARE, OTHER ==
[~2021-12-17 11:01] MED LIST changes: -DOXY-342 PO; -DOXY-350 PO; +DOXY-444 PO; +DOXY100C81 PO
== END 2021-12-17 23:59 | disposition home or self-care (01) ==
LOC: M ONCR 11:01
PROVIDERS: ATTEND General Practice
DX: C85.15 Unspecified B-cell lymphoma, lymph nodes of inguinal region and lower limb (principal)

== ENCOUNTER → 2021-12-17 | Outpatient (REF) | payer MEDICARE, OTHER ==
[~2021-12-17] MED LIST changes: +CEFD300CAP PO
[2021-12-17 10:12] LABS: HEMATOCRIT 32.5 % (36.0-47.0); HEMOGLOBIN 10.1 g/dl (12.0-15.5); MEAN CORPUSCULAR HEMOGLOBIN 29.6 pg (27.0-33.0); MEAN CORPUSCULAR HGB CONC 31.1 g/dl (32.0-36.5); MEAN CORPUSCULAR VOLUME 95.3 fl (80.0-96.0); PLATELET COUNT, AUTOMATED 187 10^3/uL (150-450); RED BLOOD COUNT 3.41 10^6/uL (4.00-5.40); WHITE BLOOD COUNT 7.2 10^3/uL (4.0-10.0)
[2021-12-17 11:04] LABS: CALCIUM LEVEL 9.2 MG/DL (8.8-10.2); CREATININE FOR GFR 1.21 MG/DL (0.55-1.30); GLOMERULAR FILTRATION RATE 45.7 (>39); POTASSIUM SERUM 4.3 MEQ/L (3.5-5.1)
== END ==
PROVIDERS: ATTEND Physician Assistant
DX: C85.90 Non-Hodgkin lymphoma, unspecified, unspecified site (principal)

== ENCOUNTER 2021-12-19 11:14 | Outpatient (RCR) | payer MEDICARE, OTHER, MEDICAID | END 2022-01-16 | LOC: M ONCR 11:14 | PROVIDERS: ATTEND General Practice | DX: C85.15 Unspecified B-cell lymphoma, lymph nodes of inguinal region and lower limb (principal) ==

== ENCOUNTER → 2021-12-31 | Outpatient (REF) | payer MEDICARE, OTHER, MEDICAID | LOC: M PLAIMG 11:05 | PROVIDERS: ATTEND Internal Medicine | DX: I50.9 Heart failure, unspecified (principal) ==

== ENCOUNTER → 2021-12-31 | Outpatient (REF) | PROVIDERS: ATTEND Physician Assistant | DX: R05.9 Cough, unspecified (principal) ==

== ENCOUNTER → 2021-12-31 | Outpatient (REF) | payer MEDICAID, MEDICARE, OTHER ==
[2021-12-31 11:42] LABS: HEMATOCRIT 33.9 % (36.0-47.0); HEMOGLOBIN 10.2 g/dl (12.0-15.5); MEAN CORPUSCULAR HGB CONC 30.1 g/dl (32.0-36.5); MEAN CORPUSCULAR VOLUME 99.7 fl (80.0-96.0); PLATELET COUNT, AUTOMATED 129 10^3/uL (150-450); WHITE BLOOD COUNT 14.5 10^3/uL (4.0-10.0)
[2021-12-31 12:32] LABS: CALCIUM LEVEL 8.7 MG/DL (8.8-10.2); CREATININE FOR GFR 1.24 MG/DL (0.55-1.30); GLOMERULAR FILTRATION RATE 44.3 (>32)
== END ==
PROVIDERS: ATTEND Physician Assistant
DX: D64.9 Anemia, unspecified (principal)

== ENCOUNTER → 2022-01-14 | Outpatient (REF) | payer MEDICARE, OTHER, MEDICAID ==
[2022-01-14 10:32] LABS: HEMATOCRIT 29.2 % (36.0-47.0); HEMOGLOBIN 9.1 g/dl (12.0-15.5); MEAN CORPUSCULAR HGB CONC 31.2 g/dl (32.0-36.5); MEAN CORPUSCULAR VOLUME 96.4 fl (80.0-96.0); PLATELET COUNT, AUTOMATED 133 10^3/uL (150-450); RED BLOOD COUNT 3.03 10^6/uL (4.00-5.40); WHITE BLOOD COUNT 11.2 10^3/uL (4.0-10.0)
[2022-01-14 11:09] LABS: POTASSIUM SERUM 4.2 MMOL/L (3.5-5.1)
[2022-01-14 11:15] LABS: CALCIUM LEVEL 8.9 MG/DL (8.3-10.6)
[2022-01-14 11:17] LABS: CREATININE FOR GFR 1.2 MG/DL (0.55-1.30)
== END ==
PROVIDERS: ATTEND Physician Assistant
DX: D64.9 Anemia, unspecified (principal)

== ENCOUNTER → 2022-01-28 | Outpatient (REF) | payer MEDICARE, OTHER, MEDICAID ==
[2022-01-28 10:42] LABS: HEMATOCRIT 32.7 % (36.0-47.0); HEMOGLOBIN 10.4 g/dl (12.0-15.5); MEAN CORPUSCULAR HEMOGLOBIN 30.3 pg (27.0-33.0); MEAN CORPUSCULAR HGB CONC 31.8 g/dl (32.0-36.5); MEAN CORPUSCULAR VOLUME 95.3 fl (80.0-96.0); PLATELET COUNT, AUTOMATED 210 10^3/uL (150-450); RED BLOOD COUNT 3.43 10^6/uL (4.00-5.40); WHITE BLOOD COUNT 10.9 10^3/uL (4.0-10.0)
[2022-01-28 14:16] LABS: CALCIUM LEVEL 9.3 MG/DL (8.3-10.6); CREATININE FOR GFR 1.18 MG/DL (0.55-1.30); GLOMERULAR FILTRATION RATE 46.9 (>32); POTASSIUM SERUM 3.7 MMOL/L (3.5-5.1)
== END ==
PROVIDERS: ATTEND Physician Assistant
DX: L03.115 Cellulitis of right lower limb (principal)

== ENCOUNTER → 2022-02-01 | Outpatient (REF) | payer MEDICARE, OTHER, MEDICAID ==
[2022-02-01 14:11] LABS: HEMATOCRIT 33.9 % (36.0-47.0); MEAN CORPUSCULAR HEMOGLOBIN 30.2 pg (27.0-33.0); MEAN CORPUSCULAR HGB CONC 32.4 g/dl (32.0-36.5); MEAN CORPUSCULAR VOLUME 93.1 fl (80.0-96.0); PLATELET COUNT, AUTOMATED 150 10^3/uL (150-450); RED BLOOD COUNT 3.64 10^6/uL (4.00-5.40); WHITE BLOOD COUNT 16.3 10^3/uL (4.0-10.0)
[2022-02-01 15:03] LABS: CALCIUM LEVEL 9.3 MG/DL (8.3-10.6); CREATININE FOR GFR 1.21 MG/DL (0.55-1.30); GLOMERULAR FILTRATION RATE 45.6 (>32); POTASSIUM SERUM 3.3 MMOL/L (3.5-5.1)
== END ==
PROVIDERS: ATTEND Internal Medicine
DX: L03.115 Cellulitis of right lower limb (principal)

== ENCOUNTER → 2022-02-04 | Outpatient (REF) | payer MEDICARE, OTHER, MEDICAID | PROVIDERS: ATTEND Internal Medicine | DX: R50.9 Fever, unspecified (principal); L03.115 Cellulitis of right lower limb ==